=== PATIENT | female | born 1955 | race Caucasian/White ===

== ENCOUNTER → 2018-05-10 10:39 | Outpatient (CLI) | payer MEDICAID, SELFPAY ==
--- NOTE | 2018-05-10 17:52 | LEAS_ITS ---
Arterial Study - Arterial Study Arterial Study: Bilateral lower extremity noninvasive arterial exam at rest Patient complaint of bilateral lower extremity pain with ambulation Right lower extremity The right low thigh index is abnormal at 0.63. The calf index is 0.6. The right PT and DP ankle-brachial indices at rest are 0.51 and 0.67 respectively. The right posterior tibial and dorsalis pedis Doppler waveforms are biphasic. Volume pulse recordings demonstrate abnormal waveforms throughout the low thigh calf ankle and particularly flattened at the digital level Left lower extremity The left low thigh index is 0.52. The left calf index is 0.44. The left PT and DP ankle-brachial index at rest are 0.46 and 0.35. Doppler waveforms are monophasic in the left posterior tibial and dorsalis pedis. The volume pulse recordings demonstrate abnormally low waveforms throughout the low thigh calf ankle and the particularly flattened at the digital level Impression Abnormal bilateral lower extremity noninvasive arterial exam. Findings suggest iliofemoral inflow disease bilaterally. Findings are well within the range of vascular claudication bilaterally. Flattened digital volume pulse recordings bilaterally suggest multi segmental and or distal small vessel disease of a high -grade level. Kevin Michelle M.D., F.A.C.S.
== END ==
PROVIDERS: Family Provider Nurse Practitioner Family; PCP Nurse Practitioner Family; Visit Provider Podiatrist
DX: I73.9 Peripheral vascular disease, unspecified (principal); M79.604 Pain in right leg; M79.605 Pain in left leg

== ENCOUNTER → 2018-06-28 09:18 | Outpatient (CLI) | payer MEDICAID, SELFPAY ==
[2018-06-28 10:15] LABS: Hematocrit 42.2 % (37-47); Hemoglobin 13.4 g/dl (12.0-15.0); Mean Corp Hgb Conc 31.8 g/gl (32-36); Mean Corpuscular Hgb 27.6 pg (27.0-32.0); Platelet Count 387 K/mm3 (150-450); RBC Distribution Width CV 14.8 % (11.6-14.6); RBC Distribution Width SD 47.4 fl (35.1-43.9); Red Blood Count 4.85 M/mm3 (4.2-5.4); White Blood Count 7.7 K/mm3 (4.4-11.0)
[2018-06-28 10:17] LABS: Scan Indicated on CBC? Y/N NO
[2018-06-28 10:55] LABS: ALB/GLOB Ratio 0.9 RATIO (0.9-2.4); AST(SGOT) 15 U/L (15-37); Alanine Aminotransfer ALT/SGPT 25 U/L (13-56); Albumin, Serum 3.6 g/dL (3.2-5.0); Alkaline Phosphatase 184 U/L (45-117); Anion Gap 12 (5-15); BUN 20 mg/dL (7-18); BUN/Creat Ratio 30.7 RATIO (10-20); Calcium,Total 8.8 mg/dL (8.5-10.1); Chloride 105 mmol/L (98-107); Cholesterol 272 mg/dL (200); Creatinine, Serum 0.65 mg/dL (0.55-1.02); EST Glomerular Filtration Rate 98 mL/min (>60); Est Glom Filt Rate - Afr Amer 119 mL/min (>60); Globulin 3.9 g/dL (2.2-4.2); Glucose 94 mg/dL (74-106); High Density Lipoprotein 45 mg/dL; Protein, Total 7.5 g/dL (6.4-8.2); Sodium Level 142 mmol/L (136-145); Triglycerides 119 mg/dL; Very Low Density Lipoprotein 24 mg/dL (5-40)
== END ==
PROVIDERS: Family Provider Nurse Practitioner Family; PCP Nurse Practitioner Family; Visit Provider Surgery
DX: Z01.818 Encounter for other preprocedural examination (principal); I73.9 Peripheral vascular disease, unspecified
CPT/HCPCS: 36415; 80053; 80061; 85027

== ENCOUNTER → 2018-07-05 12:42 | Outpatient (CLI) | payer MEDICAID, SELFPAY | PROVIDERS: Family Provider Nurse Practitioner Family; PCP Nurse Practitioner Family; Visit Provider Surgery | DX: R09.89 Other specified symptoms and signs involving the circulatory and respiratory systems (principal) | CPT/HCPCS: 93880 ==

== ENCOUNTER → 2018-07-21 14:39 | Outpatient (CLI) | payer MEDICAID, SELFPAY | PROVIDERS: Family Provider Nurse Practitioner Family; PCP Nurse Practitioner Family; Visit Provider Surgery | DX: I73.9 Peripheral vascular disease, unspecified (principal) | CPT/HCPCS: 75635; Q9967 ==

== ENCOUNTER 2018-08-31 12:06 | Observation (INO) | payer MEDICAID, SELFPAY ==
[2018-08-30 10:04] VITALS: BMI 28.3
[2018-08-30 10:23] LABS: Hematocrit 41.5 % (37-47); Hemoglobin 13.1 g/dl (12.0-15.0); Mean Corp Hgb Conc 31.6 g/gl (32-36); Mean Corpuscular Hgb 27.5 pg (27.0-32.0); Mean Corpuscular Volume 87.2 fL (81-99); Platelet Count 359 K/mm3 (150-450); RBC Distribution Width CV 14.1 % (11.6-14.6); RBC Distribution Width SD 45.2 fl (35.1-43.9); Red Blood Count 4.76 M/mm3 (4.2-5.4); White Blood Count 9.8 K/mm3 (4.4-11.0)
[2018-08-30 10:24] LABS: Scan Indicated on CBC? Y/N NO
[2018-08-30 10:51] LABS: Anion Gap 9 (5-15); BUN 14 mg/dL (7-18); BUN/Creat Ratio 22.6 RATIO (10-20); Calcium,Total 8.9 mg/dL (8.5-10.1); Chloride 105 mmol/L (98-107); Creatinine, Serum 0.62 mg/dL (0.55-1.02); EST Glomerular Filtration Rate 104 mL/min (>60); Est Glom Filt Rate - Afr Amer 126 mL/min (>60); Glucose 91 mg/dL (74-106); Potassium 3.8 mmol/L (3.5-5.1); Sodium Level 140 mmol/L (136-145)
[2018-08-31] VITALS (10 sets, daily range): BP systolic 108–159; BP diastolic 63–87; PULSE 111–131; RESP 16–20; TEMP 36.6–37.8; O2SAT 88–95; BMI 28.3
[2018-08-31] MEDS: Cefazolin 1 GM/50 ML BAG IV (12:00)
--- NOTE | 2018-08-31 12:08 | PCM.OPRPT ---
Problem List (1) Peripheral arterial occlusive disease Status: Acute Report of Operation Date of Procedure: 08/31/18 Pre-Operative Diagnosis: Symptomatic bilateral extremity peripheral vascular occlusive disease with occluded bilateral external iliac arteries Post-Operative Diagnosis: Symptomatic bilateral extremity peripheral vascular occlusive disease with occluded bilateral external iliac arteries with 50% stenosis distal left common iliac Surgery/Procedure Performed:: Abdominal pelvic arteriogram via left brachial approach. Attempted revascularization left external iliac via the left brachial approach. Successful left external iliac revascularization via retrograde left common femoral artery approach with 6 x 80 mm ever cross angioplasty and 7 x 150 mm ever flex stenting Description of Surgical Findings:: 63-year-old female was taken to the special procedures lab. She was placed upon the table. The left arm was placed on an armboard bilateral groins and left arm were sterilely prepped and draped. Timeout and informed consent was obtained. Patient received 50 mcg of fentanyl and 2 mg Versed is intravenous station. Under ultrasound guidance the left brachial artery is identified 2% lidocaine was instilled micropuncture needle inserted micropuncture wire inserted micropuncture sheath inserted 035 J-wire was inserted 5 Martiniquais short sheath was inserted. Then using a 4 Martiniquais IM catheter and a angled floppy Glidewire access was gained to the thoracic aorta and then was advanced down to the abdominal aorta. Over the Glidewire a 5 Martiniquais pigtail catheter was placed. Using Isovue contrast the rate of 15 cc a second 15 cc a aortic pelvic arteriogram was obtained. This demonstrated occlusion of bilateral external iliacs with 50% stenosis of the distal left common iliac. There was a flush occlusion on the right of the external iliac. There was a small stab on the left. I elected to attempt to address the left groin. At this point the patient received 7000 ends of heparin IV and then based upon ACT measurements throughout the case she received a total of 11,000 units of heparin. I placed a 035 Magic wire. I exchanged out the short sheath for a 70 cm 7 Martiniquais Javier sheath. Then placed a 018 quick cross catheter and an 1 8 connect wire. Try to gain access to the area of complete occlusion. I was able to advance the connect wire to a degree but could not reestablish flow at the distal left external iliac. Hand-injection views done through the sheath suggested that she had a relatively long left common femoral artery. As I was not being successful antegrade I elected to attempt a retrograde approach. Ultrasound was used to identify the left superficial femoral common femoral artery 2% lidocaine was instilled micropuncture needle was inserted retrograde with flow micropuncture wire micropuncture sheath and 035 J-wire was used to place a 7 Martiniquais sheath. Hand-injection demonstrated true lumen. I then used a 0335 quick cross catheter and an 035 stiff Glidewire was able to gain access through the completely occluded left external iliac into the true lumen of the aorta. Hand-injection views demonstrated true lumen. I then withdrew the 018 quick cross catheter from above. I placed a 035 Magic wire from the left common femoral and I performed balloon angioplasty of the left external iliac for its entire duration and the mid and distal portion of the left common iliac with a 6 x 80 mm ever cross balloon. Upon completion there was evidence of dissection in the mid section which extended down distally and the external iliac. I elected to cover the entire area with a 7 x 150 mm ever flex stent as the 100 mm stent would not cover the disease involving the left distal common iliac. That stent was carefully positioned so as to cover the reentry site at the left common femoral artery. The stent was deployed then it was seated in place with the 6 x 80 mm ever cross balloon. Final pigtail injection from the aorta demonstrated now wide open patency of the distal left common iliac and left external iliac with good flow into the left common femoral. At this point to the contrast and amount of time ensued I elected to hold the procedure at this setting. I anticipate observing her results with the left lower extremity. The patient has a flush occlusion of the right external iliac. If she performs well on the left that I would anticipate returning to the procedure room with a planned retrograde approach from the right common femoral in an attempt to recanalize her right external iliac. If that is not successful then I could consider a future femoral femoral crossover from left to right. The left groin sheath was removed over Magic wire and a Perclose device was inserted and deployed with good results and immediate hemostasis. The patient has a very nicely palpable 3+ left PT pulse and a weaker left anterior tibial pulse. Images demonstrate a patent abdominal aorta patent bilateral common iliacs the right common iliac appears to be adequate and then there is a complete flush occlusion of the right external iliac there is refill of the right common femoral just at the inguinal ligament there is collateralized flow view of the right internal iliac. The left internal iliac similarly provides collateral flow. The small stab of patency of the left external iliac. The left common femoral refills just at the inguinal ligament. Subsequent to the angioplasty and stenting of the left external iliac and distal common iliac there is now reconstitution of direct in-line flow. Contrast utilized was 60 cc. She tired procedure well was taken to the recovery area in satisfactory condition without apparent complication. Good hemostasis was achieved with a Perclose device in the left groin. ACT monitoring was performed. The left brachial sheath will be removed in the recovery area. Kevin Michelle M.D., F.A.C.S. Type of Anesthesia:: IV Sedation, Local
[2018-08-31 13:16] LABS: ACT Activated Clotting Time 180 sec (74-137)
[2018-08-31 14:40] LABS: ACT Activated Clotting Time 219 sec (74-137)
[2018-08-31 14:40] LABS: ACT Activated Clotting Time 224 sec (74-137)
[2018-08-31 14:40] LABS: ACT Activated Clotting Time 208 sec (74-137)
[2018-08-31] MEDS: Clopidogrel Bisulfate 75 MG Tablet PO (15:10)
[2018-08-31] MEDS: Ondansetron 4 MG/2 ML Vial IV (16:34)
--- NOTE | 2018-08-31 17:32 | NURSING ---
pt sleeping upon entering room for site checks and vitals. spo2 on ra when sleeping 88% and hr up to 122. o2 applied at 2l and immediately pt went up to 100%. cont pox applied per protocol +stop.
--- NOTE | 2018-08-31 18:03 | PCM.PN.BLA ---
Progress Note Pt without complaint Supple left antecubital space with 2+ left radial Supple left groin with 3+ left PT Good progress.Will remove sandbag left groin
--- NOTE | 2018-08-31 19:27 | EKG12_ITS ---
Test Reason : PREPROCEDURE Blood Pressure : / mmHG Vent. Rate : 116 BPM Atrial Rate : 116 BPM P-R Int : 134 ms QRS Dur : 080 ms QT Int : 336 ms P-R-T Axes : 078 052 072 degrees QTc Int : 467 ms Sinus tachycardia Otherwise normal ECG No previous ECGs available Confirmed by BATSHEVA SALEH, JOSE J ([id number]), society editor ANNETTA FLOYD ([id number] on 09/06/2018 11:08:43 AM Referred By: Kevin Michelle Confirmed By:JOSE J HERMAN MD
--- NOTE | 2018-08-31 20:23 | NURSING ---
bed rest for patient was up at 1999. ambulated in hallways x1 half lap. came back to room. both dsg sites c/d/i with no bleeding noted. vss. HR still tachy in the 130s. no pain. pulses strong. will continue to monitor. left armboard still in place.
[2018-08-31] MEDS: Acetaminophen 325 MG Tablet PO (22:30)
[2018-09-01] VITALS (12 sets, daily range): BP systolic 135–155; BP diastolic 70–91; PULSE 102–120; RESP 18–20; TEMP 36.7–37.6; O2SAT 87–94
--- NOTE | 2018-09-01 06:07 | PCM.PN.SRG ---
Subjective: Pt without complaint Notes warmer, less painful left leg with ambulation - Physical Exam Extremities: - - Left antecubital, soft, NT, echymosis, 2+ left radial Left groin supple, NT, ecchymosis, 3+ left PT Vital Signs Temp Pulse Resp BP Pulse Ox 99.4 F H 107 H 18 135/91 H 93 09/01/18 04:25 09/01/18 04:25 09/01/18 04:25 09/01/18 04:25 09/01/18 04:25 Oxygen Flow Rate (L/min) 2 Oxygen Delivery Method Nasal Cannula Weight: 140 lb 2 oz Body Mass Index (BMI) 28.3 Intake and Output for Last 24 Hours 08/30/18 08/31/18 09/01/18 23:59 23:59 23:59 Intake Total 1278 / 1278 Output Total 525 / 525 Balance 753 / 753 Laboratory Tests Past 24 Hrs 08/31/18 08/31/18 08/31/18 10:22 11:16 12:00 Activated Clotting Time 208 H 219 H 224 H 08/31/18 13:06 Activated Clotting Time 180 H Medical Necessity - Tobacco Use Smoking Status: Current every day smoker Tobacco Use: Cigarettes Assessment/Plan All Active Problems (Last Reviewed 08/06/18 @ 14:46 by Theresa Erazo) Tobacco abuse (Acute) Peripheral arterial occlusive disease (Acute) Good results Plan home if can be weened from oxygen
[2018-09-01] MEDS: Furosemide 20 MG/2 ML VIAL IV (06:58)
--- NOTE | 2018-09-01 08:16 | NURSING ---
This RN entered room and pt was on 2L N/C. Removed O2 and ambulated in hallway on RA. SpO2 ranged from 90-95% while on RA. Pt back to bed and left on Room Air with continuous pulse ox in place. Will continue to monitor for d/c.
[2018-09-01] MEDS: Aspirin 81 MG TAB.CHEW PO (09:49)
[2018-09-01] MEDS: Clopidogrel Bisulfate 75 MG Tablet PO (09:49)
--- NOTE | 2018-09-01 10:51 | PCM.PN.BLA ---
Progress Note Patient update. She denies shortness of breath at rest and with ambulation however pulse ox is 87 at rest sitting and laying down. Her O2 sat with ambulation is low 90's to high 80's. Patient does qualify for home oxygen. Case management will set up home oxygen. Patient will need to follow-up with her PCP in 1 week to have home oxygen discontinued. Paperwork will be filled out and faxed over to the floor once received. Diagnosis for home O2 is deoxygenation post-procedure. Dyspnea. Code Visit Inpatient E&M: 28053 Subs Hosp L1 - POST-OP CHARGE
--- NOTE | 2018-09-01 10:55 | PN_ITS ---
Progress Note Patient update. She denies shortness of breath at rest and with ambulation however pulse ox is 87 at rest sitting and laying down. Her O2 sat with ambulation is low 90's to high 80's. Patient does qualify for home oxygen. Case management will set up home oxygen. Patient will need to follow-up with her PCP in 1 week to have home oxygen discontinued. Paperwork will be filled out and faxed over to the floor once received. Diagnosis for home O2 is deoxygenation post-procedure. Dyspnea. Code Visit Inpatient E&M: 65236 Subs Hosp L1 - POST-OP CHARGE
--- NOTE | 2018-09-01 11:16 | PCM.DC.GS ---
Discharge Diet: No Restrictions Discharge Activity: May Not Drive - 5 days, May Not Shower - 2 days Lifting Restrictions: 10 pounds Call your doctor if your incision/area has: Continuous Slow Oozing, Sudden Increased Bleeding, Increased Pain/ Swelling, Increased Redness, Foul Smelling Discharge, Swelling at the incision site Suture Line Care: Avoid Pulling/Pushing, Avoid Pinching/Bending Allergies/Adverse Reactions: Allergies No Known Allergies Allergy (Verified 08/06/18 14:47) Medications to take at Discharge acetaminophen ER 650 mg tablet,extended release 650 mg PO Q6H PRN PRN 06/25/18 Aspirin [Aspirin, Baby] 81 mg PO DAILY@0800 08/30/18 Clopidogrel Bisulfate [Plavix] 75 mg PO DAILY 90 Days #90 tablet 08/31/18 The following prescriptions were given: Clopidogrel Bisulfate [Plavix] 75 mg PO DAILY 90 Days #90 tablet Primary Care Physician: Vincent Ashley, [employer] [Primary Care Provider] - Please follow up with your Primary Care Physician in: 1 week Test Results: Test results from this visit will be discussed in further detail at your follow-up appointment, if applicable. Please Follow Up With: Kevin Michelle MD - [phone] Proposed Discharge Date: 09/01/18
--- NOTE | 2018-09-01 12:00 | CASEMGMT ---
Pt qualified for home oxygen at this time per Madison GÓMEZ. This RN CM to room to speak with pt and pt states no preference for DME at this time. Explanation of home oxygen done and pt agrees to have home oxygen at this time. Pt states no hx home oxygen. 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 Madison GÓMEZ updated at this time, voices understanding. Talisha GÓMEZ CM
== END 2018-09-01 11:50 | disposition home or self-care (01) ==
LOC: PCU 16:32
PROVIDERS: Admitting Provider Surgery; Family Provider Nurse Practitioner Family; PCP Nurse Practitioner Family; Referring Provider Surgery; Visit Provider Surgery
DX: I77.9 Disorder of arteries and arterioles, unspecified (principal); M19.90 Unspecified osteoarthritis, unspecified site; Z85.41 Personal history of malignant neoplasm of cervix uteri; R06.00 Dyspnea, unspecified; F17.210 Nicotine dependence, cigarettes, uncomplicated
CPT/HCPCS: 36200; 36245; 36415; 37221; 37223; 75625; 75710; 76937; 80048; 85027; 85347; 93005; 96361; 96374; 96375; 99152; 99153; 99218; J7030; J7040; Q9967; A4216; C1725; C1760; C1769; C1876; C1887; C1894; G0378; G0379; J1940; J2405

== ENCOUNTER 2018-10-05 07:17 | Day surgery (SDC) | payer MEDICAID, SELFPAY ==
[2018-10-04 14:18] VITALS: BMI 28.3
[2018-10-05 08:14] LABS: Hematocrit 41.2 % (37-47); Hemoglobin 12.7 g/dl (12.0-15.0); Mean Corp Hgb Conc 30.8 g/gl (32-36); Mean Corpuscular Hgb 27.4 pg (27.0-32.0); Mean Corpuscular Volume 88.8 fL (81-99); Mean Platelet Vol. 9.6 fl (6.2-12.0); Platelet Count 306 K/mm3 (150-450); RBC Distribution Width CV 14.8 % (11.6-14.6); RBC Distribution Width SD 47.9 fl (35.1-43.9); Red Blood Count 4.64 M/mm3 (4.2-5.4); Scan Indicated on CBC? Y/N NO; White Blood Count 7.7 K/mm3 (4.4-11.0)
[2018-10-05 08:18] LABS: Anion Gap 4 (5-15); BUN 16 mg/dL (7-18); BUN/Creat Ratio 23.3 RATIO (10-20); Calcium,Total 8.5 mg/dL (8.5-10.1); Chloride 108 mmol/L (98-107); Creatinine, Serum 0.69 mg/dL (0.55-1.02); EST Glomerular Filtration Rate 93 mL/min (>60); Est Glom Filt Rate - Afr Amer 112 mL/min (>60); Estimated Creatinine Clearance 85.83 ml/min; Glucose 103 mg/dL (74-106); Potassium 3.9 mmol/L (3.5-5.1); Sodium Level 140 mmol/L (136-145)
--- NOTE | 2018-10-05 10:56 | PCM.OPRPT ---
Problem List (1) Peripheral arterial occlusive disease Status: Acute Report of Operation Date of Procedure: 10/05/18 Pre-Operative Diagnosis: Symptomatic right lower extremity peripheral arterial occlusive disease with occlusion of the external iliac artery Post-Operative Diagnosis: Same Surgery/Procedure Performed:: Abdominal pelvic arteriogram with right external iliac common iliac 6 x 80 mm ever cross angioplasty and 7 x 150 mm ever flex stenting Description of Surgical Findings:: Timeout and informed consent was obtained. 63-year-old female was taken to the special procedures lab and placed on the table. She had 50 mcg of fentanyl and 2 mg of Versed as intravenous sedation. The right groin was sterilely prepped draped. Ultrasound was used to identify the right common femoral artery. Under ultrasound guidance 2% lidocaine was instilled as a local anesthetic. A total of 10 cc was used. Local was instilled. I then under ultrasound guidance a micropuncture needle was inserted in the right common femoral artery followed by salvage wire advancement. Micropuncture sheath was advanced. Then using the 035 angled Glidewire was able to gain access to the right external iliac advanced the micropuncture sheath. I was unable to exchange out for a 6 Georgian sheath. Using the 035 Glidewire was able to gain access through the occluded right external iliac artery and was able to get true lumen back into the right common iliac artery. A 4 Georgian IM catheter was used to facilitate reentry into the true lumen. I then used a 4 Georgian IM catheter to obtain a aortogram. This demonstrated patency of the previously stented left common iliac and external iliac. I then replaced the 035 angled Glidewire. The patient was given 7000 units of heparin. We up sheath to a 7 Georgian sheath. Balloon angioplasty with a 6 x 80 mm balloon was performed with a completely occluded right external iliac extending into the distal right common iliac. Images demonstrated 3 areas of limited dissection. I then placed a 7 x 150 mm ever flex stent. After several positioning films the stent was deployed and then seated in place with a 6 x 80 mm ever cross balloon. A 4 Georgian IM catheter was placed back into the abdominal aorta and a final aortogram was obtained. This demonstrated patency. The IM catheter was removed. 035 Glidewire was reinserted the 6 Georgian sheath was removed and a Perclose device was advanced on the right. Perclose device was seated and positioned and then activated. The tails were secured the wire was removed the device was removed and the suture was secured. Good hemostasis was rapidly achieved. Patient had palpable bilateral femoral pulses at the completion without apparent complication and blood loss was minimal Images demonstrate evidence of a previously placed left common iliac and external iliac 7 x 150 [place] ever flex stent which is widely patent. There is evidence of patency of the left common femoral profundofemoral and origin of the superficial femoral. On the right the external iliac had been previously occluded. Subsequent to the angioplasty and stenting there is now recanalized flow involving the entire right distal common iliac and external iliac with again patency of the right common femoral origin of the profunda femoral and superficial femoral. It is of additional note that there is flow seen within bilateral internal iliacs at the completion of the procedure. Impression Successfully treated complete occlusion of the right external iliac with angioplasty and stenting. Kevin Michelle M.D., F.A.C.S. Type of Anesthesia:: IV Sedation, Local
[2018-10-05 11:00] LABS: ACT Activated Clotting Time 224 sec (74-137)
== END 2018-10-05 15:27 | disposition home or self-care (01) ==
PROVIDERS: Family Provider Nurse Practitioner Family; PCP Nurse Practitioner Family; Referring Provider Surgery; Visit Provider Surgery
DX: I73.9 Peripheral vascular disease, unspecified (principal); I74.5 Embolism and thrombosis of iliac artery; M19.90 Unspecified osteoarthritis, unspecified site; Z79.02 Long term (current) use of antithrombotics/antiplatelets; Z79.82 Long term (current) use of aspirin; Z79.899 Other long term (current) drug therapy; F17.200 Nicotine dependence, unspecified, uncomplicated
CPT/HCPCS: 36200; 36245; 36415; 37221; 75625; 75710; 76937; 80048; 85027; 85347; 99152; 99153; J7030; J7040; Q9967; C1725; C1760; C1769; C1876

== ENCOUNTER → 2018-10-28 12:38 | Outpatient (CLI) | payer MEDICAID, SELFPAY ==
[2018-10-05 13:37] VITALS: BMI 28.3
--- NOTE | 2018-10-28 12:40 | ART_ITS ---
Reason For Study: PVD -Post stent placement Left Segmental Pressures Left brachial= 155mmHg. Left posterior tibial artery = 162mmHg. Left dorsalis pedis artery = 160mmHg. The left dorsalis pedis waveforms are triphasic. The left posterior tibial artery waveforms are triphasic. Right Segmental Pressures Right brachial= 161mmHg. Right posterior tibial artery = 160mmHg. Right dorsalis pedis artery = 181mmHg. The right dorsalis pedis waveforms are triphasic. The right posterior tibial artery waveforms are triphasic. Indices The right ankle brachial index by the dorsalis pedis is 1.1. The right ankle brachial index by the posterior tibial artery is .99. The left ankle brachial index by the dorsalis pedis is .99. The left ankle brachial index by the posterior tibial artery is 1.0. Interpretation Summary Normal bilateral lower extremity resting ALEIDA's and waveforms. Ordering Physician: Kevin Michelle Referring Physician: Kevin Michelle Performed By: Jessie Chaudhari [facility]
--- OUTSIDE RECORDS SUMMARY | 2018-12-14 07:54 | XMS RPT_ITS ---
:1955 Author Organization OHIP Support Name Relationship Address Phone FRIBLEY, SUNG Unavailable [address] + [place] [address] UE Unavailable Unavailable Unavailable FRIBLEY, SUNG Unavailable [address] + [place] [address] UE Unavailable Unavailable Unavailable FRIBLEY, SUNG Unavailable [address] + [place] [address] UE Unavailable Unavailable Unavailable FRIBLEY, SUNG Unavailable [address] + [place] [address] UE Unavailable Unavailable Unavailable FRIBLEY, SUNG Unavailable [address] + [place] [address] UE Unavailable Unavailable Unavailable FRIBLEY, SUNG Unavailable [address] + [place] [address] UE Unavailable Unavailable Unavailable FRIBLEY, SUNG Unavailable [address] + [place] [address] UE Unavailable Unavailable Unavailable FRIBLEY, SUNG Unavailable [address] + [place] [address] UE Unavailable Unavailable Unavailable FRIBLEY, SUNG Unavailable [address] + [place] [address] UE Unavailable Unavailable Unavailable FRIBLEY, SUNG Unavailable [address] + [place] [address] UE Unavailable Unavailable Unavailable FRIBLEY, SUNG Unavailable [address] + [place] [address] UE Unavailable Unavailable Unavailable FRIBLEY, SUNG Unavailable [address] + [place] [address] UE Unavailable Unavailable Unavailable FRIBLEY, SUNG Unavailable [address] + [place] [address] UE Unavailable Unavailable Unavailable FRIBLEY, SUNG Unavailable [address] + [place] [address] UE Unavailable Unavailable Unavailable FRIBLEY, SUNG Unavailable [address] + [place] [address] UE Unavailable Unavailable Unavailable FRIBLEY, SUNG Unavailable [address] + [place] [address] UE Unavailable Unavailable Unavailable FRIBLEY, SUNG Unavailable [address] + [place] [address] UE Unavailable Unavailable Unavailable FRIBLEY, SUNG Unavailable [address] + [place] [address] UE Unavailable Unavailable Unavailable Care Team Providers Name Role Phone Miguel Angel Kevin Attending Unavailable Cebul, Kevin Referring Unavailable Fascione, Lucia Attending Unavailable Geno, Lucia Referring Unavailable Vincent Ashley OPERATOR SPECIALIST COMMUNICATIONS-C Primary Care Unavailable Cebul, Kevin Attending Unavailable Cebul, Kevin Attending Unavailable Geno, Lucia Referring Unavailable Vincent Ashley OPERATOR SPECIALIST COMMUNICATIONS-C Primary Care Unavailable Cebul, Kevin Attending Unavailable Cebul, Kevin Referring Unavailable Vincent Ashley OPERATOR SPECIALIST COMMUNICATIONS-C Primary Care Unavailable Cebul, Kevin Attending Unavailable Cebul, Kevin Referring Unavailable Vincent Ashley OPERATOR SPECIALIST COMMUNICATIONS-C Primary Care Unavailable Cebul, Kevin Attending Unavailable Cebul, Kevin Referring Unavailable Vincent Ashley OPERATOR SPECIALIST COMMUNICATIONS-C Primary Care Unavailable Cebul, Kevin Attending Unavailable Vincent Ashley OPERATOR SPECIALIST COMMUNICATIONS-C Referring Unavailable Vincent Ashley OPERATOR SPECIALIST COMMUNICATIONS-C Primary Care Unavailable Cebul, Kevin Attending Unavailable Cebul, Kevin Referring Unavailable Cebul, Kevin Attending Unavailable Cebul, Kevin Referring Unavailable Vincent Ashley. OPERATOR SPECIALIST COMMUNICATIONS-C Primary Care Unavailable Cebul, Kevin Admitting Unavailable Cebul, Kevin Admitting Unavailable Saniay Mooney PA-C Attending Unavailable Cebul, Kevin Referring Unavailable Vincent Ashley OPERATOR SPECIALIST COMMUNICATIONS-C Primary Care Unavailable Cebul, Kevin Consulting Unavailable Cebul, Kevin Attending Unavailable Cebul, Kevin Referring Unavailable Cebul, Kevin Attending Unavailable KirstenBaltazar messerril Attending Unavailable Cebul, Kevin Referring Unavailable Cebul, Kevin Attending Unavailable Cebul, Kevin Referring Unavailable Vincetn Ashley OPERATOR SPECIALIST COMMUNICATIONS-C Primary Care Unavailable Cebul, Kevin Attending Unavailable Vincent Ashley OPERATOR SPECIALIST COMMUNICATIONS-C Referring Unavailable Cebul, Kevin Attending Unavailable Cebul, Kevin Referring Unavailable Cebul, Kevin Attending Unavailable Cebul, Kevin Referring Unavailable Vincent Ashley OPERATOR SPECIALIST COMMUNICATIONS-C Primary Care Unavailable PROBLEMS PROBLEMS DATE TYPE CONDITION / CODE ATTENDING STATUS SOURCE 11/30/2018 Unknown I73.9 - Peripheral CebuKevin su Active [facility] vascular disease, Community unspecified / Hospital I73.9(ICD-10) Repository 10/28/2018 Unknown I77.9 - Disorder of CeKevin valenzuela Active [facility] arteries and Community arterioles, Hospital unspecified / Repository I77.9(ICD-10) 10/21/2018 Unknown I74.5 - Embolism and CebuKevin su Active [place] thrombosis of iliac Community artery / I74.5(ICD-10) Hospital Repository 09/21/2018 Unknown R94.31 - Abnormal Kirsten, Wadsworth Active [place] electrocardiogram Community [ECG] [EKG] / Hospital R94.31(ICD-10) Repository 08/09/2018 Unknown R09.89 - Other CebuKevin su Active [facility] specified symptoms and Community signs involving the Hospital circulatory and Repository respiratory systems / R09.89(ICD-10) 06/25/2018 Unknown Z01.818 - Encounter Kevin Michelle Active [place] for other [facility] preprocedural Hospital examination / Repository Z01.818(ICD-10) 05/10/2018 Unknown M79.604 - Pain in Fascione, Active [facility] right leg / [facility] M79.604(ICD-10) Hospital Repository 05/10/2018 Unknown M79.605 - Pain in left Fascione, Active [place] leg / M79.605(ICD-10) [facility] Repository PROCEDURES PROCEDURES No Procedure Records FoundRESULTS RESULTS ARTERIAL Observed: 10/28/2018 Status: F Source: [place] 3:23 PM [facility] RE[facility]IT[facility] [address] [place] [address] Lower Ext Art Exam w/o Exercis 10/28/18 1245 MR#: [id number] Acct: [id number] Name: BRENDA MACEDO Rep #: [id number] : 1955 63 From: Kevin Michelle MD Attending Dr: Kevin Michelle MD Status: REG CLI Ordering Dr: Kevin Michelle MD Date: 10/28/18 Location: [facility] Sex: F C Admitted: Reason For Study: PVD -Post stent placement Left Segmental Pressures Left brachial= 155mmHg. Left posterior tibial artery = 162mmHg. Left dorsalis pedis artery = 160mmHg. The left dorsalis pedis waveforms are triphasic. The left posterior tibial artery waveforms are triphasic. Right Segmental Pressures Right brachial= 161mmHg. Right posterior tibial artery = 160mmHg. Right dorsalis pedis artery = 181mmHg. The right dorsalis pedis waveforms are triphasic. The right posterior tibial artery waveforms are triphasic. Indices The right ankle brachial index by the dorsalis pedis is 1.1. The right ankle brachial index by the posterior tibial artery is .99. The left ankle brachial index by the dorsalis pedis is .99. The left ankle brachial index by the posterior tibial artery is 1.0. Interpretation Summary Normal bilateral lower extremity resting ALEIDA's and waveforms. Ordering Physician: Kevin Michelle Referring Physician: Kevin Michelle Performed By: Jessie Chaudhari T 10/28/18 1523 Date Kevin Michelle MD CC: ANN MARIE Ashley; Kevin Michelle MD Date Dictated: 10/28/18 1245 Date Transcribed: 10/28/18 1523 Wind Energy Technician: Signed SURGERY VISIT REPORT Observed: 10/15/2018 Status: F Source: [place] 8:45 AM [facility] [address] [place] [address] OFFICE VISIT Date of Service: 10/15/18 MR#: [id number] Acct: [id number] Name: BRENDA MACEDO Rep #: [id number] : 1955 Provider: Kevin Michelle MD Age/Sex: 63/F Location: [facility] Status: Signed Intake Vital Signs10/05/18 Body Mass Index (BMI) 28.3 Intake Visit Reasons: Iliac Stent Placement 10/05 Chief Complaint: post APLL and stents Aviation Electronic Warfare Operator Required: No Is patient in pain?: No Allergies No Known Allergies Allergy (Verified 10/15/18 08:33) Medications acetaminophen ER 650 mg tablet,extended release 650 mg PO Q6H PRN PRN 06/25/18 [History Confirmed 10/15/18] Aspirin [Aspirin, Baby] 81 mg PO DAILY@0800 08/30/18 [History Confirmed 10/15/18] Clopidogrel Bisulfate [Plavix] 75 mg PO DAILY 90 Days #90 tab 10/05/18 [Rx Confirmed 10/15/18] Is last menstrual period known: No Post menopausal: Yes Patient : No Subjective Details: 63-year-old female. She is status post staged treatment of bilateral external iliac occlusions. Her most recent procedure was October 05, 2018. I performed a abdominal pelvic arteriogram via a right retrograde common femoral artery approach and performed a 6 x 80 mm ever cross angioplasty and subsequently a 7 x 150 mm ever flex stenting of the right external iliac extending into the right common iliac. Previously on September 01, 2018 I performed a similar procedure for her left external iliac and common iliac with same devices. The patient has been a long-term cigarette smoker. She states that she has stopped. She is currently managed on daily aspirin and clopidogrel 75 mg. Her calf claudication is dramatically improved. She has no specific complaints or concerns today. Objective Details: Bilateral common femoral arteries are 3+. Bilateral popliteal arteries 2+. Bilateral DP and PT pulses 2+ Bilateral groins have evidence of puncture sites. Slight amount of induration on the right. Nontender. No erythema. Not expansile. Assessment AND Plan Problems 1. PAOD (peripheral arterial occlusive disease) I77.9 Plan Excellent results status post staged bilateral external iliac/common iliac 7 x 150 mm ever flex stenting. The patient will be returned to work on October 18, 2018. She will remain on the Plavix for 90 days and then subsequent to that can be managed with daily aspirin. She will have PVRs with exercise in the near future with a repeat exam again at 6 months. She will have office follow-up at 6 months. Currently she remains off of her tobacco. She is very pleased with her results. CC: Jaydon Michelle M.D., F.A.C.S. Coding Level of Care Code Off vis,est,level 2 Diagnoses PAOD (peripheral arterial occlusive disease) I77.9 10/15/18 0845 <Electronically signed by Kevin Michelle MD> Date Kevin Michelle MD Cosigner Signature: Date (if applicable) CC: OPERATOR SPECIALIST COMMUNICATIONS-C Vincent Ashley OPERATIVE REPORT Observed: 10/05/2018 Status: F Source: [place] 3:11 PM [facility] REPOSITORY [facility] Medical Records Department [address] [place] [address] Operative Report 10/05/18 1056 MR#: [id number] Acct: [id number] Name: BRENDA MACEDO Rep #: [id number] : 1955 63 From: Kevin Michelle MD PCP: Vincent Ashley, ANN MARIE Status: REG SD Y Location: [facility] Problem List (1) Peripheral arterial occlusive disease Status: Acute Report of Operation Date of Procedure: 10/05/18 Pre-Operative Diagnosis: Symptomatic right lower extremity peripheral arterial occlusive disease with occlusion of the external iliac artery Post-Operative Diagnosis: Same Surgery/Procedure Performed:: Abdominal pelvic arteriogram with right external iliac common iliac 6 x 80 mm ever cross angioplasty and 7 x 150 mm ever flex stenting Description of Surgical Findings:: Timeout and informed consent was obtained. 63-year-old female was taken to the special procedures lab and placed on the table. She had 50 mcg of fentanyl and 2 mg of Versed as intravenous sedation. The right groin was sterilely prepped draped. Ultrasound was used to identify the right common femoral artery. Under ultrasound guidance 2% lidocaine was instilled as a local anesthetic. A total of 10 cc was used. Local was instilled. I then under ultrasound guidance a micropuncture needle was inserted in the right common femoral artery followed by salvage wire advancement. Micropuncture sheath was advanced. Then using the 035 angled Glidewire was able to gain access to the right external iliac advanced the micropuncture sheath. I was unable to exchange out for a 6 Guyanese sheath. Using the 035 Glidewire was able to gain access through the occluded right external iliac artery and was able to get true lumen back into the right common iliac artery. A 4 Guyanese IM catheter was used to facilitate reentry into the true lumen. I then used a 4 Guyanese IM catheter to obtain a aortogram. This demonstrated patency of the previously stented left common iliac and external iliac. I then replaced the 035 angled Glidewire. The patient was given 7000 units of heparin. We up sheath to a 7 Guyanese sheath. Balloon angioplasty with a 6 x 80 mm balloon was performed with a completely occluded right external iliac extending into the distal right common iliac. Images demonstrated 3 areas of limited dissection. I then placed a 7 x 150 mm ever flex stent. After several positioning films the stent was deployed and then seated in place with a 6 x 80 mm ever cross balloon. A 4 Guyanese IM catheter was placed back into the abdominal aorta and a final aortogram was obtained. This demonstrated patency. The IM catheter was removed. 035 Glidewire was reinserted the 6 Guyanese sheath was removed and a Perclose device was advanced on the right. Perclose device was seated and positioned and then activated. The tails were secured the wire was removed the device was removed and the suture was secured. Good hemostasis was rapidly achieved. Patient had palpable bilateral femoral pulses at the completion without apparent complication and blood loss was minimal Images demonstrate evidence of a previously placed left common iliac and external iliac 7 x 150 [place] ever flex stent which is widely patent. There is evidence of patency of the left common femoral profundofemoral and origin of the superficial femoral. On the right the external iliac had been previously occluded. Subsequent to the angioplasty and stenting there is now recanalized flow involving the entire right distal common iliac and external iliac with again patency of the right common femoral origin of the profunda femoral and superficial femoral. It is of additional note that there is flow seen within bilateral internal iliacs at the completion of the procedure. Impression Successfully treated complete occlusion of the right external iliac with angioplasty and stenting. Kevin Michelle M.D., F.A.C.S. Type of Anesthesia:: IV Sedation, Local 10/05/18 1511 <Electronically signed by Kevin Michelle MD> Date Kevin Michelle MD CC: ANN MARIE Ashley; Kevin Michelle MD Signed ACT ACTIVATED CLOTTING Collected: 10/05/2018 Status: F Source: [place] TIME 10:36 AM [facility] REPOSITORY TYPE CODE TESTS RESULT OUT OF RANGE REFERENCE UNITS LAB L9100.0100 74-137 sec High ACTk CLOT 224 TIME Performed By: #### L9100.0100 #### [facility] Point of Care [facility] [place] [address] CBC-COMPLETE BLOOD CNT Collected: 10/05/2018 Status: F Source: [place] NO DIFF 7:53 AM [facility] REPOSITORY TYPE CODE TESTS RESULT OUT OF RANGE REFERENCE UNITS LAB L100.1000 4.4-11.0 K/mm3 Normal WBC 7.7 LAB L100.1200 4.2-5.4 M/mm3 Normal RBC 4.64 LAB L100.1300 12.0-15.0 g/dl Normal HGB 12.7 LAB L100.1400 37-47 % Normal HCT 41.2 LAB L100.1500 81-99 fL Normal MCV 88.8 LAB L100.1600 27.0-32.0 pg Normal MCH 27.4 LAB L100.1700 32-36 g/gl Low MCHC 30.8 LAB L100.1810 11.6-14.6 % High RDW CV 14.8 LAB L100.1820 35.1-43.9 fl High RDW SD 47.9 LAB L100.1900 150-450 K/mm3 Normal PLT 306 LAB L100.2000 6.2-12.0 fl Normal MPV 9.6 Performed By: #### L100.0500 #### [facility] [address] [place], [address] BASIC METABOLIC Collected: 10/05/2018 Status: F Source: [place] PROFILE (BMP) 7:53 AM [facility] REPOSITORY TYPE CODE TESTS RESULT OUT OF RANGE REFERENCE UNITS LAB L501.0100 74-106 mg/dL Normal GLU 103 Result Comment: Fasting Glucose result from 100 to 125 mg/dL suggests IMPAIRED HOMEOSTASIS per A.D.A. criteria. Please note revised GLUCOSE reference range effective 2017. LAB L501.1000 7-18 mg/dL Normal BUN 16 LAB L501.1100 0.55-1.02 mg/dL Normal CREAT,SERUM 0.69 Result Comment: The validity of the calculated GFR AND GFRAA in patients over 70 years has not been determined. Clinical correlation is essential. LAB L501.1110 >60 mL/min Normal EST GFR 93 Result Comment: Non- GFR Calc LAB L501.1115 >60 mL/min Normal EST GFR - AA 112 Result Comment: GFR Calc LAB L501.1255 ml/min Normal Estimated CRCL 85.83 LAB L501.1300 10-20 RATIO High BUN/CRE 23.3 LAB L501.2200 8.5-10 mg/dL Normal .1 CA 8.5 LAB L501.5300 136-14 mmol/L Normal 5 NA 140 LAB L501.5600 3.5-5. mmol/L Normal 1 K 3.9 LAB L501.5900 98-107 mmol/L High CL 108 LAB L501.6100 21.0-3 mmol/L Normal 2.0 CO2 28.0 LAB L501.6200 5-15 Low GAP 4 Performed By: #### L500.2500 #### [facility] [address] [place], [address] SURGERY VISIT REPORT Observed: 09/16/2018 Status: F Source: [place] 9:37 AM [facility] REPOSITORY [facility] [address] [place] [address] OFFICE VISIT Date of Service: 09/16/18 MR#: [id number] Acct: [id number] Name: BRENDA MACEDO Rep #: [id number] : 1955 Provider: Kevin Michelle MD Age/Sex: 63/F Location: [facility] Status: Signed Intake Intake Visit Reasons: F/U Surgery 09/01 Stent placement Chief Complaint: arteriogram with ballooning and stenting Aviation Electronic Warfare Operator Required: No Is patient in pain?: No Allergies No Known Allergies Allergy (Verified 09/16/18 09:04) Medications acetaminophen ER 650 mg tablet,extended release 650 mg PO Q6H PRN PRN 06/25/18 [History Confirmed 09/16/18] Aspirin [Aspirin, Baby] 81 mg PO DAILY@0800 08/30/18 [History Confirmed 09/16/18] Clopidogrel Bisulfate [Plavix] 75 mg PO DAILY 90 Days #90 tab 08/31/18 [Rx Confirmed 09/16/18] PFSH Medical History Tobacco abuse (Acute) Peripheral arterial occlusive disease (Acute) Arthritis (Acute) Cervical cancer (Acute) PVD (peripheral vascular disease) (Acute) Surgical History S/P LEFT ARTERIOGRAM (Acute) Family History Mother Breast cancer Social History Smoking Status: Current every day smoker alcohol intake: never HPI HPI HPI: BRENDA MACEDO, is a 63 F who presents to the office today for surgical follow-up. The patient had left arm access and left groin access to the complete occlusion of her left external iliac artery. I was able to reestablish flow and placed a 7 x 150 mm ever flex stent. The patient is very pleased. She denies any left arm problem. She states that initially she had some swelling of the left foot but that that is improved. The warmth and her ability to move with her left leg is dramatically improved. She still has limitations with her right lower extremity and she has a known complete occlusion of the right external iliac artery with flush occlusion at the internal iliac. e Report [facility] Medical Records Department [address] [place] [address] Operative Report 08/31/18 1208 MR#: [id number]:[id number] Name: BRENDA MACEDO [facility] #:[id number] : [id number]: Kevin Michelle MD PCP:Vincent Ashley, OPERATOR SPECIALIST COMMUNICATIONS-C Status:[facility] Location: [place] [address] Problem List (1) Peripheral arterial occlusive disease Status: Acute Report of Operation Date of Procedure: 08/31/18 Pre-Operative Diagnosis: Symptomatic bilateral extremity peripheral vascular occlusive disease with occluded bilateral external iliac arteries Post-Operative Diagnosis: Symptomatic bilateral extremity peripheral vascular occlusive disease with occluded bilateral external iliac arteries with 50% stenosis distal left common iliac Surgery/Procedure Performed:: Abdominal pelvic arteriogram via left brachial approach. Attempted revascularization left external iliac via the left brachial approach. Successful left external iliac revascularization via retrograde left common femoral artery approach with 6 x 80 mm ever cross angioplasty and 7 x 150 mm ever flex stenting Description of Surgical Findings:: 63-year-old female was taken to the special procedures lab. She was placed upon the table. The left arm was placed on an armboard bilateral groins and left arm were sterilely prepped and draped. Timeout and informed consent was obtained. Patient received 50 mcg of fentanyl and 2 mg Versed is intravenous station. Under ultrasound guidance the left brachial artery is identified 2% lidocaine was instilled micropuncture needle inserted micropuncture wire inserted micropuncture sheath inserted 035 J-wire was inserted 5 Guyan[place] short sheath was inserted. Then using a 4 Guyanese IM catheter and a angled floppy Glidewire access was gained to the thoracic aorta and then was advanced down to the abdominal aorta. Over the Glidewire a 5 [place] pigtail catheter was placed. Using Isovue contrast the rate of 15 cc a second 15 cc a aortic pelvic arteriogram was obtained. This demonstrated occlusion of bilateral external iliacs with 50% stenosis of the distal left common iliac. There was a flush occlusion on the right of the external iliac. There was a small stab on the left. I elected to attempt to address the left groin. At this point the patient received 7000 ends of heparin IV and then based upon ACT measurements throughout the case she received a total of 11,000 units of heparin. I placed a 035 Magic wire. I exchanged out the short sheath for a 70 cm 7 Guyanese Javier sheath. Then placed a 018 quick cross catheter and an 1 8 connect wire. Try to gain access to the area of complete occlusion. I was able to advance the connect wire to a degree but could not reestablish flow at the distal left external iliac. Hand- injection views done through the sheath suggested that she had a relatively long left common femoral artery. As I was not being successful antegrade I elected to attempt a retrograde approach. Ultrasound was used to identify the left superficial femoral common femoral artery 2% lidocaine was instilled micropuncture needle was inserted retrograde with flow micropuncture wire micropuncture sheath and 035 J-wire was used to place a 7 [place]yanese sheath. Hand-injection demonstrated true lumen. I then used a 0335 quick cross catheter and an 035 stiff Glidewire was able to gain access through the completely occluded left external iliac into the true lumen of the aorta. Hand-injection views demonstrated true lumen. I then withdrew the 018 quick cross catheter from above. I placed a 035 Magic wire from the left common femoral and I performed balloon angioplasty of the left external iliac for its entire duration and the mid and distal portion of the left common iliac with a 6 x 80 mm ever cross balloon. Upon completion there was evidence of dissection in the mid section which extended down distally and the external iliac. I elected to cover the entire area with a 7 x 150 mm ever flex stent as the 100 mm stent would not cover the disease involving the left distal common iliac. That stent was carefully positioned so as to cover the reentry site at the left common femoral artery. The stent was deployed then it was seated in place with the 6 x 80 mm ever cross balloon. Final pigtail injection from the aorta demonstrated now wide open patency of the distal left common iliac and left external iliac with good flow into the left common femoral. At this point to the contrast and amount of time ensued I elected to hold the procedure at this setting. I anticipate observing her results with the left lower extremity. The patient has a flush occlusion of the right external iliac. If she performs well on the left that I would anticipate returning to the procedure room with a planned retrograde approach from the right common femoral in an attempt to recanalize her right external iliac. If that is not successful then I could consider a future femoral femoral crossover from left to right. The left groin sheath was removed over Magic wire and a Perclose device was inserted and deployed with good results and immediate hemostasis. The patient has a very nicely palpable 3+ left PT pulse and a weaker left anterior tibial pulse. Images demonstrate a patent abdominal aorta patent bilateral common iliacs the right common iliac appears to be adequate and then there is a complete flush occlusion of the right external iliac there is refill of the right common femoral just at the inguinal ligament there is collateralized flow view of the right internal iliac. The left internal iliac similarly provides collateral flow. The small stab of patency of the left external iliac. The left common femoral refills just at the inguinal ligament. Subsequent to the angioplasty and stenting of the left external iliac and distal common iliac there is now reconstitution of direct in-line flow. Contrast utilized was 60 cc. She tired procedure well was taken to the recovery area in satisfactory condition without apparent complication. Good hemostasis was achieved with a Perclose device in the left groin. ACT monitoring was performed. The left brachial sheath will be removed in the recovery area. Kevin Michelle M.D., F.A.C.S. Type of Anesthesia:: IV Sedation, Local 09/01/18 0611<Electronically signed by Kevin Michelle MD> Date Kevin Michelle MD CC: OPERATOR SPECIALIST COMMUNICATIONS-C Vincent Ashley; Kevin Michelle MD Signed MR#:[id number] Name: BRENDA MACEDO [facility] #:[id number] : 1955 Provider:Kevin Michelle MD Age/Sex: 63/F Location:[facility] Status:Signed Intake Vital Signs 08/06/18 Height 4 ft 11 in 08/06/18 Weight: 140 lb 2 oz 08/06/18 Body Mass Index (BMI) 28.3 08/06/18 Blood Pressure 158/92 08/06/18 Blood Pressure Location Rt brachial 08/06/18 Blood Pressure Position Sitting 08/06/18 Respiratory Rate 20 08/06/18 Pulse Rate 123 08/06/18 Pulse Ox 96 Intake Visit Reasons: CTA and carotid US/ lipids Chief Complaint: CTA and carotid results Aviation Electronic Warfare Operator Required: No Is patient in pain?: No Allergies No Known Allergies Allergy (Verified 08/06/18 14:47) Medications acetaminophen ER 650 mg tablet,extended release 650 mg PO ONCE 06/25/18 [History Confirmed 06/25/18] Is last menstrual period known: No Post menopausal: Yes Patient : No PFSH Medical History Tobacco abuse (Acute) Peripheral arterial occlusive disease (Acute) Arthritis (Acute) Cervical cancer (Acute) PVD (peripheral vascular disease) (Acute) Family History Mother Breast cancer Social History Smoking Status: Current every day smoker alcohol intake: never HPI HPI HPI: BRENDA MACEDO, is a 63 F who presents to the office today for surgical discussion regarding her previous office appointment complaint of bilateral extremity claudication with clinically relevant peripheral vascular occlusive disease. Notation is as below. She had a carotid duplex which does not demonstrate acute disease. She has bilateral external iliac occlusions as noted on her CTA. Carotid Duplex Ultrasound 07/05/18 1249 MR#: [id number] Name: BRENDA MACEDO [facility] #:[id number] : 1955 62From: Kevin Michelle MD Attending Dr: Miguel Angel SALEH,Johnnietatus: REG CLI Ordering Dr: Kevin Michelle MDDate: 07/05/18 Location:CVSSex:FC Admitted: Reason For Study: carotid bruit Rt. Velocities/BP Lt. Velocities/BP Prox CCA 92.0/26.4 cm/sec. Prox CCA 117.0/25.8 cm/sec. Mid CCA 90.9/24.6 cm/sec. Mid CCA 101.0/32.2 cm/sec. Dist CCA 86.2/28.1 cm/sec. Dist CCA 106.0/35.2 cm/sec. Prox ICA 60.4/22.9 cm/sec. Prox ICA 71.5/22.9 cm/sec. Mid ICA 93.8/32.8 cm/sec. Mid ICA 97.9/42.2 cm/sec. Dist ICA 163.0/38.5 cm/sec. Dist ICA 101.0/48.1 cm/sec. Rt. ICA/CCA = 1.8. Lt. ICA/CCA = 101.0/101.0=1.0. Prox ECA 87.9/22.9 cm/sec. Prox ECA 87.4/24.6 cm/sec. Rt. Vert. 55.4/15.7 cm/sec. Lt. Vert. 62.7/21.7 cm/sec. Right Extracranial There is intimal thickening but no significant atherosclerotic plaque noted in the right common carotid artery. There is homogeneous, smooth atherosclerotic plaque noted in the right internal carotid artery. The tortuous nature of the right internal carotid artery may result in flow velocities overestimating the degree of stenosis. There is intimal thickening but no significant atherosclerotic plaque noted in the right external carotid artery. Antegrade flow is noted in the right vertebral artery. Left Extracranial There is intimal thickening but no significant atherosclerotic plaque noted in the left common carotid artery. There is homogeneous, smooth atherosclerotic plaque noted in the left internal carotid artery. There is no significant atherosclerotic plaque noted in the left external carotid artery. Antegrade flow is noted in the left vertebral artery. Procedure Carotid Duplex 73954. The exam was diagnostic. Exam performed in department. Interpretation Summary No hemodynamically significant plague or stenosis bilateal extracranial internal carotids wit <50% stenosis bilaterally. Suspect isolated increased velocity in the distal right internal carotid is secondary to tortuosity Normal flow bilateral external carotids Patent and antegrade vertebrals bilaterally Ordering Physician: Kevin Michelle Referring Physician: Vincent Ashley Performed By: Danielle Oliveira, CHANDA, RVT 07/06/18 0547 Date Kevin Michelle MD [facility] Imaging Services [address] [place] [address] CTA Abd w/Runoff W/WO Contrast MR#: [id number] Name: BRENDA MACEDO [facility] #:[id number] : 1955F 62 From: John Pathak MD PCP:Vincent Ashley, OPERATOR SPECIALIST COMMUNICATIONS-C Status:REG CLI Study:CTA Abd w/Runoff W/WO Contrast Date of Exam:07/21/18 Exam#[id number] Ordering Dr: Kevin Michelle MD STUDY: CTA OF THE ABDOMINAL AORTA AND BILATERAL LOWER EXTREMITIES REASON FOR EXAM: Female, 62 years old. Bilateral lower extremity pain and claudication RADIATION DOSAGE (If Supplied By Facility): CTDIvol = ( 6.42 ) mGy, DLP = ( 970.57 ) mGycm TECHNIQUE: Axial CT angiography multi-detector data acquisition was obtained from the to the following intravenous administration of 100mL ml of Isovue 370 contrast. Axial images and MIP images were reconstructed from the axial data set. Post-processing of the angiographic images was performed, with multiplanar reformation and 3D reconstruction. Individualized dose optimization techniques were used for this CT. TECHNICAL QUALITY: Good COMPARISON: None. Descriptors of Narrowing: None (0%) Mild (< 50%) Moderate (50-70%) Severe (70-90%) Subtotal/Total Occlusion (90-100%) Non-Evaluable (technically non-diagnostic FINDINGS: Abdominal aorta: No demonstrated narrowing. Celiac and superior mesenteric arteries: No demonstrated narrowing. Inferior mesenteric artery: No demonstrated narrowing. Right renal artery(arteries): No demonstrated narrowing. Left renal artery(arteries): No demonstrated narrowing. Right common iliac artery: Mild atherosclerotic calcification without focal stenosis. Right external iliac artery: Long segment occlusion from origin to the level of the inguinal ligament where there is reconstituted flow via the inferior epigastric artery. Right internal iliac artery: No demonstrated narrowing. Left common iliac artery: No demonstrated narrowing. Left external iliac artery: Long segment occlusion from its origin to the inguinal ligament where there is reconstitution via inferior epigastric artery. Left internal iliac artery: No demonstrated narrowing. RIGHT LOWER EXTREMITY Right common femoral artery: No demonstrated narrowing. Right profundus femoris: No demonstrated narrowing. Right superficial femoral: No demonstrated narrowing. Right popliteal artery: No demonstrated narrowing. Right tibioperoneal trunk: No demonstrated narrowing. Right anterior tibial artery: Diminutive flow distally with reconstitution of dorsalis pedis artery via peroneal collaterals Right posterior tibial artery: No demonstrated narrowing. Right peroneal artery: No demonstrated narrowing. LEFT LOWER EXTREMITY Left common femoral artery: No demonstrated narrowing. Left profundus femoris: No demonstrated narrowing. Left superficial femoral: No demonstrated narrowing. Left popliteal artery: No demonstrated narrowing. Left tibioperoneal trunk: No demonstrated narrowing. Left anterior tibial artery: No demonstrated narrowing. Left posterior tibial artery: No demonstrated narrowing. Left peroneal artery: No demonstrated narrowing. CT/CTA Abd w/Runoff W/WO Contrast IMPRESSION: 1. Long segment occlusion of bilateral external iliac arteries from their origins to the inguinal ligaments where there is reconstitution of flow via bilateral inferior epigastric arteries. 2. Diminutive flow in the distal third of the right anterior tibial artery with reconstitution of the dorsalis pedis artery via peroneal collaterals. Electronically Signed: John Pathak MD at 4:33 EDT Tel , Service support , CC: ANN MARIE Ashley; Kevin Michelle MD Wind Energy Technician: Signed MR#:[id number] Name: MACEDOBRENDA [facility] #:[id number] : 1955 Provider:Kevin Michelle MD Age/Sex: 62/F [facility] Status:Signed Intake Vital Signs 06/25/18 Height 4 ft 11 in 06/25/18 Weight: 140 lb 06/25/18 Body Mass Index (BMI) 28.3 06/25/18 Blood Pressure 165/104 06/25/18 Blood Pressure Location Lt brachial 06/25/18 Blood Pressure Position Sitting 06/25/18 Respiratory Rate 22 06/25/18 Pulse Rate 124 06/25/18 Pulse Ox 97 06/25/18 Oxygen Delivery Method room air Intake Visit Reasons: PVD Arterial Study [facility] 05/10 Aviation Electronic Warfare Operator Required: No Is patient in pain?: Yes (bilateral legs) Allergies No Known Allergies Allergy (Verified 01/22/15 22:18) Medications acetaminophen ER 650 mg tablet,extended release 650 mg PO ONCE 06/25/18 [History Confirmed 06/25/18] PFSH Medical History Tobacco abuse (Acute) Peripheral arterial occlusive disease (Acute) Arthritis (Acute) Cervical cancer (Acute) PVD (peripheral vascular disease) (Acute) Family History Mother Breast cancer Social History Smoking Status: Current every day smoker alcohol intake: never HPI HPI HPI: BRENDA MACEDO, is a 62 F who presents to the office today for surgical consultation regarding peripheral vascular occlusive disease. The patient is referred by Dr. Lora written copy of my surgical consult recommendations will be returned to her. The patient complains of inability to walk half a block. She cannot climb stairs. She fortunately has not had any open ulcerations. This is been steadily progressive over several months. She has not had any open ulcerations that she is noted. She denies myocardial infarction or CVA or diabetes. She claims she has not had any vascular intervention. She is a long-term cigarette smoker at 2 packs per day. She is not aware of what her baseline lipid panel is. On May 10, 2018 she had bilateral extremity noninvasive arterial exam at rest. The right low thigh index is 0.63 with a right PT and DP index of 0.51-0.67 and biphasic right posterior tibial and dorsalis pedis waveforms. The left low thigh index is 0.52 with a left PT and DP ankle-brachial index of 0.460.35 with monophasic left DP and PT Doppler waveforms. The patient's previous history includes that of cervical cancer. After examining her it was noted that she has a very early superficial left lateral malleolus skin injury. She states this is secondary to new shoes ROS General General: No weight change, appetite, fatigue, colon cancer, breast cancer or weakness HEENT HEENT: No difficulty swallowing, eye injury, eye surgery, swollen glands or hoarseness Endo Endocrine: No thyroid disease, diabetes mellitus, thyroid cancer, Hair loss, heat intolerance or cold intolerance Skin Skin: No rash or changing moles Breast Breast: No left breast lump, right breast lump, nipple discharge, breast pain, abnormal mammogram, abnormal US or breast enlargement Musc Musculoskeletal: Yes arthritis; no back problems, rheumatoid arthritis, gout or joint pain Cardio Cardiovascular: No murmur, pacemaker, heart disease, atrial fibrillation, high blood pressure, heart attack, heart stent, palpitations, shortness of breat with exertion or chest pain Psych Psychiatric: No depression, anxiety or hearing voices Resp Respiratory: Yes sleep apnea, Yes cough, No shortness of breath, No COPD, No asthma, No emphysema, No wheezing Gastro Gastrointestinal: No abdominal pain, No nausea or vomiting, No diarrhea, No constipation, No blood in stool, No acid reflux, No hemorrhoids, No ulcers, No gallbladder problem, No black,tarry stools Ciaran Hematologic: No blood thinners, No blood disorders, No bleeding, No anemia, No blood clots Neuro Neurologic: No system reviewed and no additional complaints, except as docu, No as per HPI, No abnormal walking, No abnormal hearing, No abnormal movements, No abnormal speech, No behavioral changes, No burning sensations, No confusion, No seizure-like activity, No unsteadiness, No dizziness, No localized weakness, No frequent falls, No headache(s), No lack of coordination, No loss of vision, No memory loss, No numbness, No other visual disturbances, No radiating pain, No restless legs, No sensory deficit, No fainting, No tingling, No tremor(s), No weakness, No other Exam Const General: cooperative Nutritional Appearance: average body habitus Orientation: alert, awake Other: The patient looks notably older than stated age [facility] Head: normal to inspection Eyes General: appearance normal, both eyes and all related structures Chest Breast Palpation: No nipple discharge Other: Notably increased anterior posterior diameter of the chest with thoracic kyphosis Resp Auscultation: clear to auscultation bilaterally Cardio Rate: regular rate Heart Sounds: no murmurs Other: Bilateral carotids are 3+. Soft bruit on the right. Bilateral brachials are 3+. Bilateral radials 2+. Bilateral femoral and popliteal and DP and PT pulses are not palpable GI Palpation: soft, no hepatosplenomegaly, no pulsatile masses, other (No bruit) Musc Cervical Spine: other (Cervical kyphosis) Skin Other: Bilateral lower extremities demonstrate slight violaceous change. There is dependent rubor. Elevation pallor. There is diminished venous filling. Diminished capillary refill. The left lateral malleolus has a 1 x 0.8 cm area slight skin discoloration consistent with early pressure sore Neuro Other: Slightly diminished light touch sensation bilateral feet Extrem Other: Digital clubbing noted Psych Affect: anxious affect Assessment AND Plan Problems 1. Peripheral arterial occlusive disease I77.9 2. Tobacco abuse Z72.0 Plan 62-year-old female. She likely has aortoiliac occlusion. Findings are well within the range of vascular claudication bordering upon rest pain and critical ischemia. Her current lipid status is not known Chronic excessive tobacco addiction with ongoing use of cigarettes. Minimal right carotid bruit I recommend that we obtain a carotid duplex exam. I recommend that we obtain baseline laboratory included a lipid panel. I am recommending a CTA of the abdomen with runoff I have also asked the patient to initiate a low-dose 81 mg aspirin daily. I have vigorously encouraged the patient to cease her tobacco use. She has had an opportunity to ask and have questions answered. We will investigate whether she would be a candidate for vascular intervention locally. She has had an opportunity to ask and have questions answered. I appreciate the opportunity of assisting with her surgical care. cc: Dr Lora and Jaydon Michelle M.D., F.A.C.S. Orders Orders: Comprehensive Metabolic Profil Today Z01.818 Lipid Profile Today I73.9 CTA Abd w/Runoff W/WO Contrast Today I73.9 Carotid Duplex Ultrasound Today R09.89 CBC-Complete Blood Cnt No Diff Today Z01.818 Coding Level of Care Code Comprehensive,moderate Diagnoses Peripheral arterial occlusive disease I77.9 Tobacco abuse Z72.0 Time Spent (min) 50 06/25/18 8475<Electronically signed by Kevin Michelle MD> Date Kevin Michelle MD ROS General General: No weight change, appetite, fatigue, colon cancer, breast cancer or weakness HEENT HEENT: No difficulty swallowing, eye injury, eye surgery, swollen glands or hoarseness Endo Endocrine: No thyroid disease, diabetes mellitus, thyroid cancer, Hair loss, heat intolerance or cold intolerance Skin Skin: No rash or changing moles Breast Breast: No left breast lump, right breast lump, nipple discharge, breast pain, abnormal mammogram, abnormal US or breast enlargement Musc Musculoskeletal: Yes arthritis; no back problems, rheumatoid arthritis, gout or joint pain Cardio Cardiovascular: No murmur, pacemaker, heart disease, atrial fibrillation, high blood pressure, heart attack, heart stent, palpitations, shortness of breat with exertion or chest pain Psych Psychiatric: No depression, anxiety or hearing voices Resp Respiratory: Yes sleep apnea, Yes cough, No shortness of breath, No COPD, No asthma, No emphysema, No wheezing Gastro Gastrointestinal: No abdominal pain, No nausea or vomiting, No diarrhea, No constipation, No blood in stool, No acid reflux, No hemorrhoids, No ulcers, No gallbladder problem, No black,tarry stools Ciaran Hematologic: No blood thinners, No blood disorders, No bleeding, No anemia, No blood clots Neuro Neurologic: No weakness Exam Chest Breast Palpation: No nipple discharge Cardio Heart Sounds: no murmurs Assessment AND Plan Problems 1. PAOD (peripheral arterial occlusive disease) I77.9 Plan Today was a 30 minute [id number] consultative appointment. I reviewed her imaging. I proposed for her an attempt at a antegrade approach via a left brachial artery an attempt to vascular retreat her bilateral external iliac occlusions. She is aware that I anticipate left arm prepping and bilateral groin prepping. She is aware of the technique, benefits, risks, alternatives. Absolutely no guarantees of success have been offered. She is aware that if that is not successful that she might require a aortobifemoral bypass graft in the future to improve her symptomatology. She has had an opportunity to ask and have questions answered. She will remain on her low-dose aspirin. We will schedule and proceed at her discretion. She is very much aware that this will be a technically more demanding procedure. Cc: Jaydon Ashley NP and Dr Geno Michelle M.D., F.A.C.S. Coding Level of Care Code Off vis,est,level 3 Diagnoses PAOD (peripheral arterial occlusive disease) I77.9 Exam Const General: cooperative, healthy appearing Resp Effort AND Inspection: normal respiratory effort Auscultation: clear to auscultation bilaterally Cardio Rate: regular rate Rhythm: regular rhythm Other: Left radial 2+. Left brachial 2+ left femoral 3+. Left popliteal 3+. Left DP 1+. Left PT 3+ GI Palpation: soft, no hepatosplenomegaly Extrem Other: Warm left foot, no ulcerations Assessment AND Plan Problems 1. PAOD (peripheral arterial occlusive disease) I77.9 Plan The patient reports that she is remaining tobacco free She is on clopidogrel 75 mg daily which I initiated post procedure. I need a 90-day course. The prescription will be renewed I was not successful gaining antegrade access through her left external iliac complete occlusion but was successful with a retrograde approach from the left common femoral. The right external iliac is more difficult in that there is a flush proximal occlusion. I therefore proposed to the patient under ultrasound guidance a retrograde approach from the right common femoral. I reserve repeat accessing of the left brachial only if needed. She has had an opportunity to ask and have questions answered. We will have her hold her clopidogrel 2 days preintervention. She has had an opportunity to ask and have questions answered. She did well with her previous procedure. We will schedule and proceed at her discretion. Cc: Jaydon Michelle M.D., F.A.C.S. Coding Level of Care Code Off vis,est,level 2 Diagnoses PAOD (peripheral arterial occlusive disease) I77.9 09/16/18 0937 <Electronically signed by Kevin Michelle MD> Date Kevin Michelle MD Cosigner Signature: Date (if applicable) CC: ANN MARIE Ashley 12 LEAD ELECTROCARDIOGRAM Observed: 09/06/2018 Status: F Source: [place] 11:09 AM [facility] Cardiovascular Services [address] [place] [address] 12 Lead EKG 08/31/18 0724 MR#: [id number] Acct: [id number] Name: BRENDA MACEDO Rep #: [id number] : 1955 63 From: Leobardo Curtis MD Attending Dr: Kevin Michelle MD Status: DIS ANIL Ordering Dr: Kevin Michelle MD Date: 08/31/18 Location: [facility] Sex: F C Admitted: 08/31/18 Test Reason : PREPROCEDURE Blood Pressure : / mmHG Vent. Rate : 116 BPM Atrial Rate : 116 BPM P-R Int : 134 ms QRS Dur : 080 ms QT Int : 336 ms P-R-T Axes : 078 052 072 degrees QTc Int : 467 ms Sinus tachycardia Otherwise normal ECG No previous ECGs available Confirmed by LEOBARDO CURTIS MD ([id number]), material expeditor ANNETTA FLOYD ([id number]) on 09/06/2018 11:08:43 AM Referred By: Kevin Michelle Confirmed By:LEOBARDO CURTIS MD 09/06/18 1108 Date Leobardo Curtis MD CC: ANN MARIE Ashley; Kevin Michelle MD Signed DISCHARGE INSTRUCTION Observed: 09/01/2018 Status: F Source: [place] 11:17 AM [facility] Medical Records Department [address] [place] [address] Instructions for Home/Discharge Instructions 09/01/18 1116 MR#: [id number] Acct: [id number] Name: BRENDA MACEDO Rep #: [id number] : 1955 63 From: Saniya Mooney PA-C PCP: ANN MARIE Corona Status: ADM ANIL Discharge Diet: No Restrictions Discharge Activity: May Not Drive - 5 days, May Not Shower - 2 days Lifting Restrictions: 10 pounds Call your doctor if your incision/area has: Continuous Slow Oozing, Sudden Increased Bleeding, Increased Pain/ Swelling, Increased Redness, Foul Smelling Discharge, Swelling at the incision site Suture Line Care: Avoid Pulling/Pushing, Avoid Pinching/Bending Allergies/Adverse Reactions: Allergies No Known Allergies Allergy (Verified 08/06/18 14:47) Medications to take at Discharge acetaminophen ER 650 mg tablet,extended release 650 mg PO Q6H PRN PRN 06/25/18 Aspirin [Aspirin, Baby] 81 mg PO DAILY@0800 08/30/18 Clopidogrel Bisulfate [Plavix] 75 mg PO DAILY 90 Days #90 tablet 08/31/18 The following prescriptions were given: Clopidogrel Bisulfate [Plavix] 75 mg PO DAILY 90 Days #90 tablet Primary Care Physician: Vincent Ashley NP-C [Primary Care Provider] - Please follow up with your Primary Care Physician in: 1 week Test Results: Test results from this visit will be discussed in further detail at your follow-up appointment, if applicable. Please Follow Up With: Kevin Michelle MD - [phone] Proposed Discharge Date: 09/01/18 09/01/18 1117 <Electronically signed by Saniya Mooney PA-C> Date Saniya Mooney PA-C CC: ANN MARIE Ashley OPERATIVE REPORT Observed: 09/01/2018 Status: F Source: [place] 6:11 AM [facility] REPOSITORY [facility] Medical Records Department [address] [place] [address] Operative Report 08/31/18 1208 MR#: [id number] Acct: [id number] Name: ML MACEDOH Ho Rep #: [id number] : 1955 63 From: Kevin Michelle MD PCP: Vincent Ashley, OPERATOR SPECIALIST COMMUNICATIONS-C Status: ADM ANIL Y Location: [place] [address] Problem List (1) Peripheral arterial occlusive disease Status: Acute Report of Operation Date of Procedure: 08/31/18 Pre-Operative Diagnosis: Symptomatic bilateral extremity peripheral vascular occlusive disease with occluded bilateral external iliac arteries Post-Operative Diagnosis: Symptomatic bilateral extremity peripheral vascular occlusive disease with occluded bilateral external iliac arteries with 50% stenosis distal left common iliac Surgery/Procedure Performed:: Abdominal pelvic arteriogram via left brachial approach. Attempted revascularization left external iliac via the left brachial approach. Successful left external iliac revascularization via retrograde left common femoral artery approach with 6 x 80 mm ever cross angioplasty and 7 x 150 mm ever flex stenting Description of Surgical Findings:: 63-year-old female was taken to the special procedures lab. She was placed upon the table. The left arm was placed on an armboard bilateral groins and left arm were sterilely prepped and draped. Timeout and informed consent was obtained. Patient received 50 mcg of fentanyl and 2 mg Versed is intravenous station. Under ultrasound guidance the left brachial artery is identified 2% lidocaine was instilled micropuncture needle inserted micropuncture wire inserted micropuncture sheath inserted 035 J-wire was inserted 5 Guyanese short sheath was inserted. Then using a 4 Guyanese IM catheter and a angled floppy Glidewire access was gained to the thoracic aorta and then was advanced down to the abdominal aorta. Over the Glidewire a 5 Guyanese pigtail catheter was placed. Using Isovue contrast the rate of 15 cc a second 15 cc a aortic pelvic arteriogram was obtained. This demonstrated occlusion of bilateral external iliacs with 50% stenosis of the distal left common iliac. There was a flush occlusion on the right of the external iliac. There was a small stab on the left. I elected to attempt to address the left groin. At this point the patient received 7000 ends of heparin IV and then based upon ACT measurements throughout the case she received a total of 11,000 units of heparin. I placed a 035 Magic wire. I exchanged out the short sheath for a 70 cm 7 Guyanese Javier sheath. Then placed a 018 quick cross catheter and an 1 8 connect wire. Try to gain access to the area of complete occlusion. I was able to advance the connect wire to a degree but could not reestablish flow at the distal left external iliac. Hand- injection views done through the sheath suggested that she had a relatively long left common femoral artery. As I was not being successful antegrade I elected to attempt a retrograde approach. Ultrasound was used to identify the left superficial femoral common femoral artery 2% lidocaine was instilled micropuncture needle was inserted retrograde with flow micropuncture wire micropuncture sheath and 035 J-wire was used to place a 7 Guyanese sheath. Hand-injection demonstrated true lumen. I then used a 0335 quick cross catheter and an 035 stiff Glidewire was able to gain access through the completely occluded left external iliac into the true lumen of the aorta. Hand-injection views demonstrated true lumen. I then withdrew the 018 quick cross catheter from above. I placed a 035 Magic wire from the left common femoral and I performed balloon angioplasty of the left external iliac for its entire duration and the mid and distal portion of the left common iliac with a 6 x 80 mm ever cross balloon. Upon completion there was evidence of dissection in the mid section which extended down distally and the external iliac. I elected to cover the entire area with a 7 x 150 mm ever flex stent as the 100 mm stent would not cover the disease involving the left distal common iliac. That stent was carefully positioned so as to cover the reentry site at the left common femoral artery. The stent was deployed then it was seated in place with the 6 x 80 mm ever cross balloon. Final pigtail injection from the aorta demonstrated now wide open patency of the distal left common iliac and left external iliac with good flow into the left common femoral. At this point to the contrast and amount of time ensued I elected to hold the procedure at this setting. I anticipate observing her results with the left lower extremity. The patient has a flush occlusion of the right external iliac. If she performs well on the left that I would anticipate returning to the procedure room with a planned retrograde approach from the right common femoral in an attempt to recanalize her right external iliac. If that is not successful then I could consider a future femoral femoral crossover from left to right. The left groin sheath was removed over Magic wire and a Perclose device was inserted and deployed with good results and immediate hemostasis. The patient has a very nicely palpable 3+ left PT pulse and a weaker left anterior tibial pulse. Images demonstrate a patent abdominal aorta patent bilateral common iliacs the right common iliac appears to be adequate and then there is a complete flush occlusion of the right external iliac there is refill of the right common femoral just at the inguinal ligament there is collateralized flow view of the right internal iliac. The left internal iliac similarly provides collateral flow. The small stab of patency of the left external iliac. The left common femoral refills just at the inguinal ligament. Subsequent to the angioplasty and stenting of the left external iliac and distal common iliac there is now reconstitution of direct in-line flow. Contrast utilized was 60 cc. She tired procedure well was taken to the recovery area in satisfactory condition without apparent complication. Good hemostasis was achieved with a Perclose device in the left groin. ACT monitoring was performed. The left brachial sheath will be removed in the recovery area. Kevin Michelle M.D., F.A.C.S. Type of Anesthesia:: IV Sedation, Local 09/01/18 0611 <Electronically signed by Kevin Michelle MD> Date Kevin Michelle MD CC: ANN MARIE Ashley; Kevin Michelle MD Signed ACT ACTIVATED CLOTTING Collected: 08/31/2018 Status: F Source: [place] TIME 1:06 PM [facility] REPOSITORY TYPE CODE TESTS RESULT OUT OF RANGE REFERENCE UNITS LAB L9100.0100 74-137 sec High ACTk CLOT 180 TIME Performed By: #### L9100.0100 #### [facility] Point of Care [address] [place], [place] [address] ACT ACTIVATED CLOTTING Collected: 08/31/2018 Status: F Source: [place] TIME 12:00 PM [facility] REPOSITORY TYPE CODE TESTS RESULT OUT OF RANGE REFERENCE UNITS LAB L9100.0100 74-137 sec High ACTk CLOT 224 TIME Performed By: #### L9100.0100 #### [facility] Point of Care [address] [place] [address] ACT ACTIVATED CLOTTING Collected: 08/31/2018 Status: F Source: [place] TIME 11:16 AM [facility] REPOSITORY TYPE CODE TESTS RESULT OUT OF RANGE REFERENCE UNITS LAB L9100.0100 74-137 sec High ACTk CLOT 219 TIME Performed By: #### L9100.0100 #### [facility] Point of Care [address] [place], [place] [address] ACT ACTIVATED CLOTTING Collected: 08/31/2018 Status: F Source: [place] TIME 10:22 AM [facility] REPOSITORY TYPE CODE TESTS RESULT OUT OF RANGE REFERENCE UNITS LAB L9100.0100 74-137 sec High ACTk CLOT 208 TIME Performed By: #### L9100.0100 #### [facility] Point of Care [address] [place] [address] CBC-COMPLETE BLOOD CNT Collected: 08/30/2018 Status: F Source: [place] NO DIFF 9:05 AM [facility] REPOSITORY TYPE CODE TESTS RESULT OUT OF RANGE REFERENCE UNITS LAB L100.1000 4.4-11.0 K/mm3 Normal WBC 9.8 LAB L100.1200 4.2-5.4 M/mm3 Normal RBC 4.76 LAB L100.1300 12.0-15.0 g/dl Normal HGB 13.1 LAB L100.1400 37-47 % Normal HCT 41.5 LAB L100.1500 81-99 fL Normal MCV 87.2 LAB L100.1600 27.0-32.0 pg Normal MCH 27.5 LAB L100.1700 32-36 g/gl Low MCHC 31.6 LAB L100.1810 11.6-14.6 % Normal RDW CV 14.1 LAB L100.1820 35.1-43.9 fl High RDW SD 45.2 LAB L100.1900 150-450 K/mm3 Normal PLT 359 LAB L100.2000 6.2-12.0 fl Normal MPV 10.0 Performed By: #### L100.0500 #### [facility] [address] [place], [place], [address] BASIC METABOLIC Collected: 08/30/2018 Status: F Source: ZARA PROFILE (BMP) 9:05 AM [facility] REPOSITORY TYPE CODE TESTS RESULT OUT OF RANGE REFERENCE UNITS LAB L501.0100 74-106 mg/dL Normal GLU 91 Result Comment: Please note revised GLUCOSE reference range effective 2017. LAB L501.1000 7-18 mg/dL Normal BUN 14 LAB L501.1100 0.55-1.02 mg/dL Normal CREAT,SERUM 0.62 Result Comment: The validity of the calculated GFR AND GFRAA in patients over 70 years has not been determined. Clinical correlation is essential. LAB L501.1110 >60 mL/min Normal EST GFR 104 Result Comment: Non- GFR Calc LAB L501.1115 >60 mL/min Normal EST GFR - AA 126 Result Comment: GFR Calc LAB L501.1300 10-20 RATIO High BUN/CRE 22.6 LAB L501.2200 8.5-10.1 mg/dL CA Normal 8.9 LAB L501.5300 136-145 mmol/L NA Normal 140 LAB L501.5600 3.5-5.1 mmol/L K Normal 3.8 LAB L501.5900 98-107 mmol/L CL Normal 105 LAB L501.6100 21.0-32.0 mmol/L Normal CO2 26.0 LAB L501.6200 5-15 Normal GAP 9 Performed By: #### L500.2500 #### [facility] [address] [place], [place], [address] SURGERY VISIT REPORT Observed: 08/06/2018 Status: F Source: [place] 4:25 PM [facility] REPOSITORY [facility] [address] [place] [address] OFFICE VISIT Date of Service: 08/06/18 MR#: [id number] Acct: [id number] Name: BRENDA MACEDO Rep #: [id number] : 1955 Provider: Kevin Michelle MD Age/Sex: 63/F Location: [facility] Status: Signed Intake Vital Signs08/06/18 Height 4 ft 11 in 08/06/18 Weight: 140 lb 2 oz 08/06/18 Body Mass Index (BMI) 28.3 08/06/18 Blood Pressure 158/92 Intake Visit Reasons: CTA and carotid US/ lipids Chief Complaint: CTA and carotid results Aviation Electronic Warfare Operator Required: No Is patient in pain?: No Allergies No Known Allergies Allergy (Verified 08/06/18 14:47) Medications acetaminophen ER 650 mg tablet,extended release 650 mg PO ONCE 06/25/18 [History Confirmed 06/25/18] Is last menstrual period known: No Post menopausal: Yes Patient : No PFSH Medical History Tobacco abuse (Acute) Peripheral arterial occlusive disease (Acute) Arthritis (Acute) Cervical cancer (Acute) PVD (peripheral vascular disease) (Acute) Family History Mother Breast cancer Social History Smoking Status: Current every day smoker alcohol intake: never HPI HPI HPI: BRENDA MACEDO, is a 63 F who presents to the office today for surgical discussion regarding her previous office appointment complaint of bilateral extremity claudication with clinically relevant peripheral vascular occlusive disease. Notation is as below. She had a carotid duplex which does not demonstrate acute disease. She has bilateral external iliac occlusions as noted on her CTA. Carotid Duplex Ultrasound 07/05/18 1249 MR#: [id number] Name: BRENDA MACEDO [facility] #:[id number] : 1955 62From: Kevin Michelle MD Attending Dr: Miguel Angel SALEH,RobertStatus: REG CLI Ordering Dr: Kevin Michelle MDDate: 07/05/18 Location:CVSSex: Admitted: Reason For Study: carotid bruit Rt. Velocities/BP Lt. Velocities/BP Prox CCA 92.0/26.4 cm/sec. Prox CCA 117.0/25.8 cm/sec. Mid CCA 90.9/24.6 cm/sec. Mid CCA 101.0/32.2 cm/sec. Dist CCA 86.2/28.1 cm/sec. Dist CCA 106.0/35.2 cm/sec. Prox ICA 60.4/22.9 cm/sec. Prox ICA 71.5/22.9 cm/sec. Mid ICA 93.8/32.8 cm/sec. Mid ICA 97.9/42.2 cm/sec. Dist ICA 163.0/38.5 cm/sec. Dist ICA 101.0/48.1 cm/sec. Rt. ICA/CCA = 1.8. Lt. ICA/CCA = 101.0/101.0=1.0. Prox ECA 87.9/22.9 cm/sec. Prox ECA 87.4/24.6 cm/sec. Rt. Vert. 55.4/15.7 cm/sec. Lt. Vert. 62.7/21.7 cm/sec. Right Extracranial There is intimal thickening but no significant atherosclerotic plaque noted in the right common carotid artery. There is homogeneous, smooth atherosclerotic plaque noted in the right internal carotid artery. The tortuous nature of the right internal carotid artery may result in flow velocities overestimating the degree of stenosis. There is intimal thickening but no significant atherosclerotic plaque noted in the right external carotid artery. Antegrade flow is noted in the right vertebral artery. Left Extracranial There is intimal thickening but no significant atherosclerotic plaque noted in the left common carotid artery. There is homogeneous, smooth atherosclerotic plaque noted in the left internal carotid artery. There is no significant atherosclerotic plaque noted in the left external carotid artery. Antegrade flow is noted in the left vertebral artery. Procedure Carotid Duplex 15457. The exam was diagnostic. Exam performed in department. Interpretation Summary No hemodynamically significant plague or stenosis bilateal extracranial internal carotids wit <50% stenosis bilaterally. Suspect isolated increased velocity in the distal right internal carotid is secondary to tortuosity Normal flow bilateral external carotids Patent and antegrade vertebrals bilaterally Ordering Physician: Kevin Michelle Referring Physician: Vincent Ashley Performed By: Danielle Oliveira, RDCS, RVT 07/06/18 0547 Date Kevin Michelle MD [facility] [address] [place] [address] CTA Abd w/Runoff W/WO Contrast MR#: [id number] Name: BRENDA MACEDO [facility] #:[id number] : 1955F 62 From: John Pathak MD PCP:Vincent Ashley, OPERATOR SPECIALIST COMMUNICATIONS-C Status:REG CLI Study:CTA Abd w/Runoff W/WO Contrast Date of Exam:07/21/18 Exam#[id number] Ordering Dr: Kevin Michelle MD STUDY: CTA OF THE ABDOMINAL AORTA AND BILATERAL LOWER EXTREMITIES REASON FOR EXAM: Female, 62 years old. Bilateral lower extremity pain and claudication RADIATION DOSAGE (If Supplied By Facility): CTDIvol = ( 6.42 ) mGy, DLP = ( 970.57 ) mGycm TECHNIQUE: Axial CT angiography multi-detector data acquisition was obtained from the to the following intravenous administration of 100mL ml of Isovue 370 contrast. Axial images and MIP images were reconstructed from the axial data set. Post-processing of the angiographic images was performed, with multiplanar reformation and 3D reconstruction. Individualized dose optimization techniques were used for this CT. TECHNICAL QUALITY: Good COMPARISON: None. Descriptors of Narrowing: None (0%) Mild (< 50%) Moderate (50-70%) Severe (70-90%) Subtotal/Total Occlusion (90-100%) Non-Evaluable (technically non-diagnostic FINDINGS: Abdominal aorta: No demonstrated narrowing. Celiac and superior mesenteric arteries: No demonstrated narrowing. Inferior mesenteric artery: No demonstrated narrowing. Right renal artery(arteries): No demonstrated narrowing. Left renal artery(arteries): No demonstrated narrowing. Right common iliac artery: Mild atherosclerotic calcification without focal stenosis. Right external iliac artery: Long segment occlusion from origin to the level of the inguinal ligament where there is reconstituted flow via the inferior epigastric artery. Right internal iliac artery: No demonstrated narrowing. Left common iliac artery: No demonstrated narrowing. Left external iliac artery: Long segment occlusion from its origin to the inguinal ligament where there is reconstitution via inferior epigastric artery. Left internal iliac artery: No demonstrated narrowing. RIGHT LOWER EXTREMITY Right common femoral artery: No demonstrated narrowing. Right profundus femoris: No demonstrated narrowing. Right superficial femoral: No demonstrated narrowing. Right popliteal artery: No demonstrated narrowing. Right tibioperoneal trunk: No demonstrated narrowing. Right anterior tibial artery: Diminutive flow distally with reconstitution of dorsalis pedis artery via peroneal collaterals Right posterior tibial artery: No demonstrated narrowing. Right peroneal artery: No demonstrated narrowing. LEFT LOWER EXTREMITY Left common femoral artery: No demonstrated narrowing. Left profundus femoris: No demonstrated narrowing. Left superficial femoral: No demonstrated narrowing. Left popliteal artery: No demonstrated narrowing. Left tibioperoneal trunk: No demonstrated narrowing. Left anterior tibial artery: No demonstrated narrowing. Left posterior tibial artery: No demonstrated narrowing. Left peroneal artery: No demonstrated narrowing. CT/CTA Abd w/Runoff W/WO Contrast IMPRESSION: 1. Long segment occlusion of bilateral external iliac arteries from their origins to the inguinal ligaments where there is reconstitution of flow via bilateral inferior epigastric arteries. 2. Diminutive flow in the distal third of the right anterior tibial artery with reconstitution of the dorsalis pedis artery via peroneal collaterals. Electronically Signed: John Pathak MD at 4:33 EDT Tel , Service support , CC: ANN MARIE Ashley; Kevin Michelle MD Wind Energy Technician: Signed MR#:[id number] Name: BRENDA MACEDO [facility] #:[id number] : 1955 Provider:Kevin Michelle MD Age/Sex: 62/F Location:[facility] Status:Signed Intake Vital Signs 06/25/18 Height 4 ft 11 in 06/25/18 Weight: 140 lb 06/25/18 Body Mass Index (BMI) 28.3 06/25/18 Blood Pressure 165/104 06/25/18 Blood Pressure Location Lt brachial 06/25/18 Blood Pressure Position Sitting 06/25/18 Respiratory Rate 22 06/25/18 Pulse Rate 124 06/25/18 Pulse Ox 97 06/25/18 Oxygen Delivery Method room air Intake Visit Reasons: PVD Arterial Study [facility] 05/10 Aviation Electronic Warfare Operator Required: No Is patient in pain?: Yes (bilateral legs) Allergies No Known Allergies Allergy (Verified 01/22/15 22:18) Medications acetaminophen ER 650 mg tablet,extended release 650 mg PO ONCE 06/25/18 [History Confirmed 06/25/18] PFSH Medical History Tobacco abuse (Acute) Peripheral arterial occlusive disease (Acute) Arthritis (Acute) Cervical cancer (Acute) PVD (peripheral vascular disease) (Acute) Family History Mother Breast cancer Social History Smoking Status: Current every day smoker alcohol intake: never HPI HPI HPI: BRENDA MACEDO, is a 62 F who presents to the office today for surgical consultation regarding peripheral vascular occlusive disease. The patient is referred by Dr. Lora written copy of my surgical consult recommendations will be returned to her. The patient complains of inability to walk half a block. She cannot climb stairs. She fortunately has not had any open ulcerations. This is been steadily progressive over several months. She has not had any open ulcerations that she is noted. She denies myocardial infarction or CVA or diabetes. She claims she has not had any vascular intervention. She is a long-term cigarette smoker at 2 packs per day. She is not aware of what her baseline lipid panel is. On May 10, 2018 she had bilateral extremity noninvasive arterial exam at rest. The right low thigh index is 0.63 with a right PT and DP index of 0.51-0.67 and biphasic right posterior tibial and dorsalis pedis waveforms. The left low thigh index is 0.52 with a left PT and DP ankle-brachial index of 0.460.35 with monophasic left DP and PT Doppler waveforms. The patient's previous history includes that of cervical cancer. After examining her it was noted that she has a very early superficial left lateral malleolus skin injury. She states this is secondary to new shoes ROS General General: No weight change, appetite, fatigue, colon cancer, breast cancer or weakness HEENT HEENT: No difficulty swallowing, eye injury, eye surgery, swollen glands or hoarseness Endo Endocrine: No thyroid disease, diabetes mellitus, thyroid cancer, Hair loss, heat intolerance or cold intolerance Skin Skin: No rash or changing moles Breast Breast: No left breast lump, right breast lump, nipple discharge, breast pain, abnormal mammogram, abnormal US or breast enlargement Musc Musculoskeletal: Yes arthritis; no back problems, rheumatoid arthritis, gout or joint pain Cardio Cardiovascular: No murmur, pacemaker, heart disease, atrial fibrillation, high blood pressure, heart attack, heart stent, palpitations, shortness of breat with exertion or chest pain Psych Psychiatric: No depression, anxiety or hearing voices Resp Respiratory: Yes sleep apnea, Yes cough, No shortness of breath, No COPD, No asthma, No emphysema, No wheezing Gastro Gastrointestinal: No abdominal pain, No nausea or vomiting, No diarrhea, No constipation, No blood in stool, No acid reflux, No hemorrhoids, No ulcers, No gallbladder problem, No black,tarry stools Ciaran Hematologic: No blood thinners, No blood disorders, No bleeding, No anemia, No blood clots Neuro Neurologic: No system reviewed and no additional complaints, except as docu, No as per HPI, No abnormal walking, No abnormal hearing, No abnormal movements, No abnormal speech, No behavioral changes, No burning sensations, No confusion, No seizure-like activity, No unsteadiness, No dizziness, No localized weakness, No frequent falls, No headache(s), No lack of coordination, No loss of vision, No memory loss, No numbness, No other visual disturbances, No radiating pain, No restless legs, No sensory deficit, No fainting, No tingling, No tremor(s), No weakness, No other Exam Const General: cooperative Nutritional Appearance: average body habitus Orientation: alert, awake Other: The patient looks notably older than stated age [facility] Head: normal to inspection Eyes General: appearance normal, both eyes and all related structures Chest Breast Palpation: No nipple discharge Other: Notably increased anterior posterior diameter of the chest with thoracic kyphosis Resp Auscultation: clear to auscultation bilaterally Cardio Rate: regular rate Heart Sounds: no murmurs Other: Bilateral carotids are 3+. Soft bruit on the right. Bilateral brachials are 3+. Bilateral radials 2+. Bilateral femoral and popliteal and DP and PT pulses are not palpable GI Palpation: soft, no hepatosplenomegaly, no pulsatile masses, other (No bruit) Musc Cervical Spine: other (Cervical kyphosis) Skin Other: Bilateral lower extremities demonstrate slight violaceous change. There is dependent rubor. Elevation pallor. There is diminished venous filling. Diminished capillary refill. The left lateral malleolus has a 1 x 0.8 cm area slight skin discoloration consistent with early pressure sore Neuro Other: Slightly diminished light touch sensation bilateral feet Extrem Other: Digital clubbing noted Psych Affect: anxious affect Assessment AND Plan Problems 1. Peripheral arterial occlusive disease I77.9 2. Tobacco abuse Z72.0 Plan 62-year-old female. She likely has aortoiliac occlusion. Findings are well within the range of vascular claudication bordering upon rest pain and critical ischemia. Her current lipid status is not known Chronic excessive tobacco addiction with ongoing use of cigarettes. Minimal right carotid bruit I recommend that we obtain a carotid duplex exam. I recommend that we obtain baseline laboratory included a lipid panel. I am recommending a CTA of the abdomen with runoff I have also asked the patient to initiate a low-dose 81 mg aspirin daily. I have vigorously encouraged the patient to cease her tobacco use. She has had an opportunity to ask and have questions answered. We will investigate whether she would be a candidate for vascular intervention locally. She has had an opportunity to ask and have questions answered. I appreciate the opportunity of assisting with her surgical care. cc: Dr Lora and Jaydon Michelle M.D., F.A.C.S. Orders Orders: Comprehensive Metabolic Profil Today Z01.818 Lipid Profile Today I73.9 CTA Abd w/Runoff W/WO Contrast Today I73.9 Carotid Duplex Ultrasound Today R09.89 CBC-Complete Blood Cnt No Diff Today Z01.818 Coding Level of Care Code Comprehensive,moderate Diagnoses Peripheral arterial occlusive disease I77.9 Tobacco abuse Z72.0 Time Spent (min) 50 06/25/18 7814<Electronically signed by Kevin Michelle MD> Date Kevin Michelle MD ROS General General: No weight change, appetite, fatigue, colon cancer, breast cancer or weakness HEENT HEENT: No difficulty swallowing, eye injury, eye surgery, swollen glands or hoarseness Endo Endocrine: No thyroid disease, diabetes mellitus, thyroid cancer, Hair loss, heat intolerance or cold intolerance Skin Skin: No rash or changing moles Breast Breast: No left breast lump, right breast lump, nipple discharge, breast pain, abnormal mammogram, abnormal US or breast enlargement Musc Musculoskeletal: Yes arthritis; no back problems, rheumatoid arthritis, gout or joint pain Cardio Cardiovascular: No murmur, pacemaker, heart disease, atrial fibrillation, high blood pressure, heart attack, heart stent, palpitations, shortness of breat with exertion or chest pain Psych Psychiatric: No depression, anxiety or hearing voices Resp Respiratory: Yes sleep apnea, Yes cough, No shortness of breath, No COPD, No asthma, No emphysema, No wheezing Gastro Gastrointestinal: No abdominal pain, No nausea or vomiting, No diarrhea, No constipation, No blood in stool, No acid reflux, No hemorrhoids, No ulcers, No gallbladder problem, No black,tarry stools Ciaran Hematologic: No blood thinners, No blood disorders, No bleeding, No anemia, No blood clots Neuro Neurologic: No weakness Exam Chest Breast Palpation: No nipple discharge Cardio Heart Sounds: no murmurs Assessment AND Plan Problems 1. PAOD (peripheral arterial occlusive disease) I77.9 Plan Today was a 30 minute [id number] consultative appointment. I reviewed her imaging. I proposed for her an attempt at a antegrade approach via a left brachial artery an attempt to vascular retreat her bilateral external iliac occlusions. She is aware that I anticipate left arm prepping and bilateral groin prepping. She is aware of the technique, benefits, risks, alternatives. Absolutely no guarantees of success have been offered. She is aware that if that is not successful that she might require a aortobifemoral bypass graft in the future to improve her symptomatology. She has had an opportunity to ask and have questions answered. She will remain on her low-dose aspirin. We will schedule and proceed at her discretion. She is very much aware that this will be a technically more demanding procedure. Cc: Jaydon Ashley NP and Dr Geno Michelle M.D., F.A.C.S. Coding Level of Care Code Off vis,est,level 3 Diagnoses PAOD (peripheral arterial occlusive disease) I77.9 08/06/18 0615 <Electronically signed by Kevin Michelle MD> Date Kevin Michelle MD Cosigner Signature: Date (if applicable) CC: OPERATOR SPECIALIST COMMUNICATIONS-C Vincent Ashley; Lucia Lora DPM CTA ABD W/RUNOFF W/WO Observed: 07/21/2018 Status: F Source: [place] 2:50 PM [facility] REPOSITORY [facility] Imaging Services [address] [place] [address] CTA Abd w/Runoff W/WO Contrast MR#: [id number] Acct: [id number] Name: BRENDA MACEDO Rep #: [id number] : 1955 F 62 From: John Pathak MD PCP: ANN MARIE Corona Status: REG CLI Study: CTA Abd w/Runoff W/WO Contrast Date of Exam: 07/21/18 Exam# [id number] Ordering Dr: Kevin Michelle MD STUDY: CTA OF THE ABDOMINAL AORTA AND BILATERAL LOWER EXTREMITIES REASON FOR EXAM: Female, 62 years old. Bilateral lower extremity pain and claudication RADIATION DOSAGE (If Supplied By Facility): CTDIvol = ( 6.42 ) mGy, DLP = ( 970.57 ) mGycm TECHNIQUE: Axial CT angiography multi-detector data acquisition was obtained from the to the following intravenous administration of 100mL ml of Isovue 370 contrast. Axial images and MIP images were reconstructed from the axial data set. Post-processing of the angiographic images was performed, with multiplanar reformation and 3D reconstruction. Individualized dose optimization techniques were used for this CT. TECHNICAL QUALITY: Good COMPARISON: None. Descriptors of Narrowing: None (0%) Mild (< 50%) Moderate (50-70%) Severe (70-90%) Subtotal/Total Occlusion (90-100%) Non-Evaluable (technically non-diagnostic FINDINGS: Abdominal aorta: No demonstrated narrowing. Celiac and superior mesenteric arteries: No demonstrated narrowing. Inferior mesenteric artery: No demonstrated narrowing. Right renal artery(arteries): No demonstrated narrowing. Left renal artery(arteries): No demonstrated narrowing. Right common iliac artery: Mild atherosclerotic calcification without focal stenosis. Right external iliac artery: Long segment occlusion from origin to the level of the inguinal ligament where there is reconstituted flow via the inferior epigastric artery. Right internal iliac artery: No demonstrated narrowing. Left common iliac artery: No demonstrated narrowing. Left external iliac artery: Long segment occlusion from its origin to the inguinal ligament where there is reconstitution via inferior epigastric artery. Left internal iliac artery: No demonstrated narrowing. RIGHT LOWER EXTREMITY Right common femoral artery: No demonstrated narrowing. Right profundus femoris: No demonstrated narrowing. Right superficial femoral: No demonstrated narrowing. Right popliteal artery: No demonstrated narrowing. Right tibioperoneal trunk: No demonstrated narrowing. Right anterior tibial artery: Diminutive flow distally with reconstitution of dorsalis pedis artery via peroneal collaterals Right posterior tibial artery: No demonstrated narrowing. Right peroneal artery: No demonstrated narrowing. LEFT LOWER EXTREMITY Left common femoral artery: No demonstrated narrowing. Left profundus femoris: No demonstrated narrowing. Left superficial femoral: No demonstrated narrowing. Left popliteal artery: No demonstrated narrowing. Left tibioperoneal trunk: No demonstrated narrowing. Left anterior tibial artery: No demonstrated narrowing. Left posterior tibial artery: No demonstrated narrowing. Left peroneal artery: No demonstrated narrowing. CT/CTA Abd w/Runoff W/WO Contrast IMPRESSION: 1. Long segment occlusion of bilateral external iliac arteries from their origins to the inguinal ligaments where there is reconstitution of flow via bilateral inferior epigastric arteries. 2. Diminutive flow in the distal third of the right anterior tibial artery with reconstitution of the dorsalis pedis artery via peroneal collaterals. Electronically Signed: John Pathak MD at 4:33 EDT Tel , Service support , CC: ANN MARIE Ashley; Kevin Michelle MD Wind Energy Technician: Signed CAROTID DUPLEX Observed: 07/06/2018 Status: F Source: [place] ULTRASOUND 5:48 AM [facility] REPOS[facility]ORY [facility] Cardiovascular Services [place] [address] Carotid Duplex Ultrasound 07/05/18 1249 MR#: [id number] Acct: [id number] Name: BRENDA MACEDO Rep #: [id number] : 1955 62 From: Kevin Michelle MD Attending Dr: Kevin Michelle MD Status: REG CLI Ordering Dr: Kevin Michelle MD Date: 07/05/18 Location: [facility] Sex: F C Admitted: Reason For Study: carotid bruit Rt. Velocities/BP Lt. Velocities/BP Prox CCA 92.0/26.4 cm/sec. Prox CCA 117.0/25.8 cm/sec. Mid CCA 90.9/24.6 cm/sec. Mid CCA 101.0/32.2 cm/sec. Dist CCA 86.2/28.1 cm/sec. Dist CCA 106.0/35.2 cm/sec. Prox ICA 60.4/22.9 cm/sec. Prox ICA 71.5/22.9 cm/sec. Mid ICA 93.8/32.8 cm/sec. Mid ICA 97.9/42.2 cm/sec. Dist ICA 163.0/38.5 cm/sec. Dist ICA 101.0/48.1 cm/sec. Rt. ICA/CCA = 1.8. Lt. ICA/CCA = 101.0/101.0=1.0. Prox ECA 87.9/22.9 cm/sec. Prox ECA 87.4/24.6 cm/sec. Rt. Vert. 55.4/15.7 cm/sec. Lt. Vert. 62.7/21.7 cm/sec. Right Extracranial There is intimal thickening but no significant atherosclerotic plaque noted in the right common carotid artery. There is homogeneous, smooth atherosclerotic plaque noted in the right internal carotid artery. The tortuous nature of the right internal carotid artery may result in flow velocities overestimating the degree of stenosis. There is intimal thickening but no significant atherosclerotic plaque noted in the right external carotid artery. Antegrade flow is noted in the right vertebral artery. Left Extracranial There is intimal thickening but no significant atherosclerotic plaque noted in the left common carotid artery. There is homogeneous, smooth atherosclerotic plaque noted in the left internal carotid artery. There is no significant atherosclerotic plaque noted in the left external carotid artery. Antegrade flow is noted in the left vertebral artery. Procedure Carotid Duplex 59400. The exam was diagnostic. Exam performed in department. Interpretation Summary No hemodynamically significant plague or stenosis bilateal extracranial internal carotids wit <50% stenosis bilaterally. Suspect isolated increased velocity in the distal right internal carotid is secondary to tortuosity Normal flow bilateral external carotids Patent and antegrade vertebrals bilaterally Ordering Physician: Kevin Michelle Referring Physician: Vincent Ashley Performed By: Danielle Oliveira, VINEETCS, RVT 07/06/18 0547 Date Kevin Michelle MD CC: OPERATOR SPECIALIST COMMUNICATIONS-C Vincent Ashley; Kevin Michelle MD Date Dictated: 07/05/18 1249 Date Transcribed: 07/06/1851 Wind Energy Technician: Signed CBC-COMPLETE BLOOD CNT Collected: 06/28/2018 Status: F Source: [place] NO DIFF 9:23 AM [facility] REPOSITORY TYPE CODE TESTS RESULT OUT OF RANGE REFERENCE UNITS LAB L100.1000 4.4-11.0 K/mm3 Normal WBC 7.7 LAB L100.1200 4.2-5.4 M/mm3 Normal RBC 4.85 LAB L100.1300 12.0-15.0 g/dl Normal HGB 13.4 LAB L100.1400 37-47 % Normal HCT 42.2 LAB L100.1500 81-99 fL Normal MCV 87.0 LAB L100.1600 27.0-32.0 pg Normal MCH 27.6 LAB L100.1700 32-36 g/gl Low MCHC 31.8 LAB L100.1810 11.6-14.6 % High RDW CV 14.8 LAB L100.1820 35.1-43.9 fl High RDW SD 47.4 LAB L100.1900 150-450 K/mm3 Normal PLT 387 LAB L100.2000 6.2-12.0 fl Normal MPV 10.0 Performed By: #### L100.0500 #### [facility] [address] [place], [address] COMPREHENSIVE METABOLIC Collected: 06/28/2018 Status: F Source: [facility] 9:23 AM [facility] REPOSITORY TYPE CODE TESTS RESULT OUT OF RANGE REFERENCE UNITS LAB L501.0100 74-106 mg/dL Normal GLU 94 Result Comment: Please note revised GLUCOSE reference range effective 2017. LAB L501.1000 7-18 mg/dL High BUN 20 LAB L501.1100 0.55-1.02 mg/dL Normal CREAT,SERUM 0.65 Result Comment: The validity of the calculated GFR AND GFRAA in patients over 70 years has not been determined. Clinical correlation is essential. LAB L501.1110 >60 mL/min Normal EST GFR 98 Result Comment: Non- GFR Calc LAB L501.1115 >60 mL/min Normal EST GFR - AA 119 Result Comment: GFR Calc LAB L501.1300 10-20 RATIO High BUN/CRE 30.7 LAB L501.1500 6.4-8.2 g/dL T Normal PROT 7.5 LAB L501.1800 3.2-5.0 g/dL Normal ALB 3.6 LAB L501.1950 2.2-4.2 g/dL Normal GLOB 3.9 LAB L501.2000 0.9-2.4 RATIO Normal A/G 0.9 LAB L501.2200 8.5-10.1 mg/dL CA Normal 8.8 LAB L501.4100 15-37 U/L Normal AST 15 LAB L501.4305 45-117 U/L High ALK P 184 LAB L501.4405 13-56 U/L Normal ALT 25 LAB L501.4600 0.20-1.00 mg/dL T Normal BILI 0.20 LAB L501.5300 136-145 mmol/L NA Normal 142 LAB L501.5600 3.5-5.1 mmol/L K Normal 4.0 LAB L501.5900 98-107 mmol/L CL Normal 105 LAB L501.6100 21.0-32.0 mmol/L Normal CO2 25.0 LAB L501.6200 5-15 Normal GAP 12 Performed By: #### L500.4050, L500.4100 #### [facility] [address] [place], [place], [address] LIPID PROFILE Collected: 06/28/2018 Status: F Source: [place] 9:23 AM [facility] REPOSITORY TYPE CODE TESTS RESULT OUT OF RANGE REFERENCE UNITS LAB L501.4900 200 mg/dL High CHOL 272 Result Comment: <200 mg/dL Desirable 200-240 mg/dL Borderline >240 mg/dL High Risk LAB L501.5000 mg/dL Normal TRIG 119 Result Comment: The drugs N-Acetylcysteine and Metamizole may falsely depress this assay. Serum Triglycerides Reference Interval Normal <150 mg/dL Borderline high 150 - 199 mg/dL High 200 - 499 mg/dL Very High > or = 500 mg/dL LAB L501.6400 mg/dL Normal HDL 45 Result Comment: The drugs N-Acetylcysteine and Metamizole may falsely depress this assay. Reference Range HDL <40 mg/dL Low HDL Cholesterol HDL >or= 60 mg/dL High HDL Cholesterol LAB L501.6500 0-130 mg/dL High LDL 203 LAB L501.6600 5-40 mg/dL Normal VLDL 24 Performed By: #### L500.4050, L500.4100 #### [facility] [address] [place], [place], [address] SURGERY VISIT REPORT Observed: 06/25/2018 Status: F Source: [place] 5:44 PM [facility] REPOSITORY [facility] [address] [place] [address] OFFICE VISIT Date of Service: 06/25/18 MR#: [id number] Acct: [id number] Name: BRENDA MACEDO Rep #: [id number] : 1955 Provider: Kevin Michelle MD Age/Sex: 62/F Location: [facility] Status: Signed Intake Vital Signs06/25/18 Height 4 ft 11 in 06/25/18 Weight: 140 lb 06/25/18 Body Mass Index (BMI) 28.3 06/25/18 Blood Pressure 165/104 06/25/18 Blood Pressure Location Lt brachial Intake Visit Reasons: PVD Arterial Study [facility] 05/10 Aviation Electronic Warfare Operator Required: No Is patient in pain?: Yes (bilateral legs) Allergies No Known Allergies Allergy (Verified 01/22/15 22:18) Medications acetaminophen ER 650 mg tablet,extended release 650 mg PO ONCE 06/25/18 [History Confirmed 06/25/18] PFSH Medical History Tobacco abuse (Acute) Peripheral arterial occlusive disease (Acute) Arthritis (Acute) Cervical cancer (Acute) PVD (peripheral vascular disease) (Acute) Family History Mother Breast cancer Social History Smoking Status: Current every day smoker alcohol intake: never HPI HPI HPI: BRENDA MACEDO, is a 62 F who presents to the office today for surgical consultation regarding peripheral vascular occlusive disease. The patient is referred by Dr. Lora written copy of my surgical consult recommendations will be returned to her. The patient complains of inability to walk half a block. She cannot climb stairs. She fortunately has not had any open ulcerations. This is been steadily progressive over several months. She has not had any open ulcerations that she is noted. She denies myocardial infarction or CVA or diabetes. She claims she has not had any vascular intervention. She is a long-term cigarette smoker at 2 packs per day. She is not aware of what her baseline lipid panel is. On May 10, 2018 she had bilateral extremity noninvasive arterial exam at rest. The right low thigh index is 0.63 with a right PT and DP index of 0.51-0.67 and biphasic right posterior tibial and dorsalis pedis waveforms. The left low thigh index is 0.52 with a left PT and DP ankle-brachial index of 0.460.35 with monophasic left DP and PT Doppler waveforms. The patient's previous history includes that of cervical cancer. After examining her it was noted that she has a very early superficial left lateral malleolus skin injury. She states this is secondary to new shoes ROS General General: No weight change, appetite, fatigue, colon cancer, breast cancer or weakness HEENT HEENT: No difficulty swallowing, eye injury, eye surgery, swollen glands or hoarseness Endo Endocrine: No thyroid disease, diabetes mellitus, thyroid cancer, Hair loss, heat intolerance or cold intolerance Skin Skin: No rash or changing moles Breast Breast: No left breast lump, right breast lump, nipple discharge, breast pain, abnormal mammogram, abnormal US or breast enlargement Musc Musculoskeletal: Yes arthritis; no back problems, rheumatoid arthritis, gout or joint pain Cardio Cardiovascular: No murmur, pacemaker, heart disease, atrial fibrillation, high blood pressure, heart attack, heart stent, palpitations, shortness of breat with exertion or chest pain Psych Psychiatric: No depression, anxiety or hearing voices Resp Respiratory: Yes sleep apnea, Yes cough, No shortness of breath, No COPD, No asthma, No emphysema, No wheezing Gastro Gastrointestinal: No abdominal pain, No nausea or vomiting, No diarrhea, No constipation, No blood in stool, No acid reflux, No hemorrhoids, No ulcers, No gallbladder problem, No black,tarry stools Ciaran Hematologic: No blood thinners, No blood disorders, No bleeding, No anemia, No blood clots Neuro Neurologic: No system reviewed and no additional complaints, except as docu, No as per HPI, No abnormal walking, No abnormal hearing, No abnormal movements, No abnormal speech, No behavioral changes, No burning sensations, No confusion, No seizure-like activity, No unsteadiness, No dizziness, No localized weakness, No frequent falls, No headache(s), No lack of coordination, No loss of vision, No memory loss, No numbness, No other visual disturbances, No radiating pain, No restless legs, No sensory deficit, No fainting, No tingling, No tremor(s), No weakness, No other Exam Const General: cooperative Nutritional Appearance: average body habitus Orientation: alert, awake Other: The patient looks notably older than stated age [facility] Head: normal to inspection Eyes General: appearance normal, both eyes and all related structures Chest Breast Palpation: No nipple discharge Other: Notably increased anterior posterior diameter of the chest with thoracic kyphosis Resp Auscultation: clear to auscultation bilaterally Cardio Rate: regular rate Heart Sounds: no murmurs Other: Bilateral carotids are 3+. Soft bruit on the right. Bilateral brachials are 3+. Bilateral radials 2+. Bilateral femoral and popliteal and DP and PT pulses are not palpable GI Palpation: soft, no hepatosplenomegaly, no pulsatile masses, other (No bruit) Musc Cervical Spine: other (Cervical kyphosis) Skin Other: Bilateral lower extremities demonstrate slight violaceous change. There is dependent rubor. Elevation pallor. There is diminished venous filling. Diminished capillary refill. The left lateral malleolus has a 1 x 0.8 cm area slight skin discoloration consistent with early pressure sore Neuro Other: Slightly diminished light touch sensation bilateral feet Extrem Other: Digital clubbing noted Psych Affect: anxious affect Assessment AND Plan Problems 1. Peripheral arterial occlusive disease I77.9 2. Tobacco abuse Z72.0 Plan 62-year-old female. She likely has aortoiliac occlusion. Findings are well within the range of vascular claudication bordering upon rest pain and critical ischemia. Her current lipid status is not known Chronic excessive tobacco addiction with ongoing use of cigarettes. Minimal right carotid bruit I recommend that we obtain a carotid duplex exam. I recommend that we obtain baseline laboratory included a lipid panel. I am recommending a CTA of the abdomen with runoff I have also asked the patient to initiate a low-dose 81 mg aspirin daily. I have vigorously encouraged the patient to cease her tobacco use. She has had an opportunity to ask and have questions answered. We will investigate whether she would be a candidate for vascular intervention locally. She has had an opportunity to ask and have questions answered. I appreciate the opportunity of assisting with her surgical care. cc: Dr Lora and Jaydon Ashley OPERATOR SPECIALIST COMMUNICATIONS Kevin Michelle M.D., F.A.C.S. Orders Orders: Coding Level of Care Code Comprehensive,moderate Diagnoses Peripheral arterial occlusive disease I77.9 Tobacco abuse Z72.0 Time Spent (min) 50 06/25/18 2410 <Electronically signed by Kevin Michelle MD> Date Kevin Michelle MD Cosigner Signature: Date (if applicable) CC: OPERATOR SPECIALIST COMMUNICATIONS-C Vincent Ashley; Lucia Lora DPM LOWER EXT ARTERIAL Observed: 05/10/2018 Status: F Source: [place] STUDY 5:52 PM [facility] REPOS[facility]ORY [facility] Cardiovascular Services [address] [place] [address] 05/10/18 1748 MR#: [id number] Acct: [id number] Name: BRENDA MACEDO Rep #: [id number] : 1955 62 From: Kevin Michelle MD Attending Dr: Lucia Lora DPM Status: REG CLI Ordering Dr: Date: 05/10/18 Location: [facility] Sex: F C Admitted: Arterial Study - Arterial Study Arterial Study: Bilateral lower extremity noninvasive arterial exam at rest Patient complaint of bilateral lower extremity pain with ambulation Right lower extremity The right low thigh index is abnormal at 0.63. The calf index is 0.6. The right PT and DP ankle-brachial indices at rest are 0.51 and 0.67 respectively. The right posterior tibial and dorsalis pedis Doppler waveforms are biphasic. Volume pulse recordings demonstrate abnormal waveforms throughout the low thigh calf ankle and particularly flattened at the digital level Left lower extremity The left low thigh index is 0.52. The left calf index is 0.44. The left PT and DP ankle-brachial index at rest are 0.46 and 0.35. Doppler waveforms are monophasic in the left posterior tibial and dorsalis pedis. The volume pulse recordings demonstrate abnormally low waveforms throughout the low thigh calf ankle and the particularly flattened at the digital level Impression Abnormal bilateral lower extremity noninvasive arterial exam. Findings suggest iliofemoral inflow disease bilaterally. Findings are well within the range of vascular claudication bilaterally. Flattened digital volume pulse recordings bilaterally suggest multi segmental and or distal small vessel disease of a high-grade level. Kevin Michelle M.D., F.A.C.S. 05/10/18 2555 <Electronically signed by Kevin Michelle MD> Date Kevin Michelle MD CC: OPERATOR SPECIALIST COMMUNICATIONSLayla Ashley; Lucia Geno DPM Date Dictated: 05/10/181747 Date Transcribed: 05/10/181747 Wind Energy Technician: TRU Signed PROGRESS Observed: 04/09/2018 Status: COMPLETED Source: [place] 5:19 PM [facility] HNO ID: [id number] Author: Momo (Blayne) Service: (none) Author Type: Nurse Practitioner Type: Progress Notes Filed: 04/09/2018 7:37 PM Note Text: Subjective HPI HPI Brenda Macedo is a 62 year old female who presents today for CC of bilateral calf pain. This started 1 week ago. Has tried otc medication without relief. Symptoms are worsened by walking/stair. 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 No pain currently/much worse at work and at end of day. .Patient presents with: Musculoskeletal Problem: RT leg pain when standing X 1 week PAST MEDICAL HISTORY Diagnosis Date - Malignant neoplasm of other specified sites of cervix 07/14/2006 PAST SURGICAL HISTORY Procedure Laterality Date - LIGATE FALLOPIAN TUBE ALLERGIES Patient has no known allergies. MEDICATIONS naproxen(NAPROSYN 500 MG TAB) Take one(1) tablet twice daily as needed for pain, with food. gabapentin(NEURONTIN 300 MG CAP) Take one(1) tablet daily in the evening. FAMILY HISTORY Problem Relation Age of Onset - Kidney [Other] [OTHER] Father 2003, ?Diabetes - Hypertension Brother She doesn't know much about him - Hypertension Mother Social History Substance Use Topics - Smoking status: Current Every Day Smoker Packs/day: 1.50 Years: 25.00 Types: Cigarettes Last attempt to quit: 02/02/2007 - Smokeless tobacco: Never Used Comment: quit smoking 6 weeks ago - Alcohol use No Review of Systems Constitutional: Negative for chills and fever. Respiratory: Negative for shortness of breath and wheezing. Cardiovascular: Negative for chest pain. Skin: Negative for itching and rash. Objective Blood pressure 140/84, pulse 100, temperature 37.2 ?C (98.9 ?F), temperature source Tympanic, weight 65.3 kg (144 lb), SpO2 95 %. Physical Exam Constitutional: She is oriented to person, place, and time and well-developed, well-nourished, and in no distress. Non-toxic appearance. She does not have a sickly appearance. No distress. HENT: Head: Normocephalic and atraumatic. Cardiovascular: Normal rate, regular rhythm, S1 normal, S2 normal and normal heart sounds. Pulses: Dorsalis pedis pulses are 2+ on the right side, and 2+ on the left side. Posterior tibial pulses are 2+ on the right side, and 2+ on the left side. Pulmonary/Chest: Effort normal and breath sounds normal. No accessory muscle usage. No respiratory distress. Musculoskeletal: Legs: Neurological: She is alert and oriented to person, place, and time. Gait normal. Skin: She is not diaphoretic. ASSESSMENT/PLAN: 1. Muscular aches - ICD9: 729.1, ICD10: M79.1 -I feel this is overuse and r/t new job that has extensive physical requirements for her age -given stretches/exercises -take medication as prescribed -follow up with primary care if symptoms persist -discussed red flags and reasons for urgent follow up - METHYLPREDNISOLONE 4 MG TABLETS IN A DOSE PACK Prescription instructions reviewed with patient as applicable. Patient advised if symptoms do not improve or if symptoms worsen sooner, to contact the office for further evaluation by their primary care physician. Potential red flag symptoms discussed with the patient. Reviewed appropriate action plan to take if red flag symptoms occur. Patient agreeable to treatment plan. Momo Hardy APRN.BLAYNE AMBROSIOOV Observed: 04/09/2018 Status: COMPLETED Source: [place] 5:15 PM [facility] REPOSITORY Office Visit ([facility]) BRENDA MACEDO ([id number]) 1955 F Date Time Provider Department 04/09/18 5:15 PM MOMO HARDY (BLAYNE) [facility] During your visit today, we recorded the following information about you: Temperature Pulse Blood pressure Weight 98.9 degrees 100/minute 140/84 65.3 kg Momo Hardy APRN.CNP 04/09/2018 7:37 PM Signed Subjective HPI HPI Brenda Macedo is a 62 year old female who presents today for CC of bilateral calf pain. This started 1 week ago. Has tried otc medication without relief. Symptoms are worsened by walking/stair. 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 No pain currently/much worse at work and at end of day. .Patient presents with: Musculoskeletal Problem: RT leg pain when standing X 1 week PAST MEDICAL HISTORY Diagnosis Date - Malignant neoplasm of other specified sites of cervix 07/14/2006 PAST SURGICAL HISTORY Procedure Laterality Date - LIGATE FALLOPIAN TUBE ALLERGIES Patient has no known allergies. MEDICATIONS naproxen(NAPROSYN 500 MG TAB) Take one(1) tablet twice daily as needed for pain, with food. gabapentin(NEURONTIN 300 MG CAP) Take one(1) tablet daily in the evening. FAMILY HISTORY Problem Relation Age of Onset - Kidney [Other] [OTHER] Father 2003, ?Diabetes - Hypertension Brother She doesn't know much about him - Hypertension Mother Social History Substance Use Topics - Smoking status: Current Every Day Smoker Packs/day: 1.50 Years: 25.00 Types: Cigarettes Last attempt to quit: 02/02/2007 - Smokeless tobacco: Never Used Comment: quit smoking 6 weeks ago - Alcohol use No Review of Systems Constitutional: Negative for chills and fever. Respiratory: Negative for shortness of breath and wheezing. Cardiovascular: Negative for chest pain. Skin: Negative for itching and rash. Objective Blood pressure 140/84, pulse 100, temperature 37.2 ?C (98.9 ?F), temperature source Tympanic, weight 65.3 kg (144 lb), SpO2 95 %. Physical Exam Constitutional: She is oriented to person, place, and time and well-developed, well-nourished, and in no distress. Non-toxic appearance. She does not have a sickly appearance. No distress. HENT: Head: Normocephalic and atraumatic. Cardiovascular: Normal rate, regular rhythm, S1 normal, S2 normal and normal heart sounds. Pulses: Dorsalis pedis pulses are 2+ on the right side, and 2+ on the left side. Posterior tibial pulses are 2+ on the right side, and 2+ on the left side. Pulmonary/Chest: Effort normal and breath sounds normal. No accessory muscle usage. No respiratory distress. Musculoskeletal: Legs: Neurological: She is alert and oriented to person, place, and time. Gait normal. Skin: She is not diaphoretic. ASSESSMENT/PLAN: 1. Muscular aches - ICD9: 729.1, ICD10: M79.1 -I feel this is overuse and r/t new job that has extensive physical requirements for her age -given stretches/exercises -take medication as prescribed -follow up with primary care if symptoms persist -discussed red flags and reasons for urgent follow up - METHYLPREDNISOLONE 4 MG TABLETS IN A DOSE PACK Prescription instructions reviewed with patient as applicable. Patient advised if symptoms do not improve or if symptoms worsen sooner, to contact the office for further evaluation by their primary care physician. Potential red flag symptoms discussed with the patient. Reviewed appropriate action plan to take if red flag symptoms occur. Patient agreeable to treatment plan. Momo Hardy APRN.BLAYNE Hardy APRN.BLAYNE 04/09/2018 5:35 PM Signed ASSESSMENT/PLAN: 1. Muscular aches - ICD9: 729.1, ICD10: M79.1 -given stretches/exercises -take medication as prescribed -follow up with primary care if symptoms persist -discussed red flags and reasons for urgent follow up - METHYLPREDNISOLONE 4 MG TABLETS IN A DOSE PACK Referring Provider: SELF [200] Allergies As of Date: 04/09/2018 (No Known Allergies) Date Reviewed: 04/09/2018 Reviewed by: Momo Hardy - Fully Assessed Reason for Visit: Musculoskeletal Problem [69] Cmt: RT leg pain when standing X 1 week Primary Visit Diagnosis:Muscular aches [M79.1] Order(s):methylPREDNISolone (MEDROL, JULIANA,) 4 mg Dose-PackFollow dosing instructions, take with food.Disp: 1 PackageRfl: 0 Prescriptions as of 04/09/2018 Sig: METHYLPREDNISOLONE 4 MG TABLE* Follow dosing instructions, t* NAPROSYN 500 MG TABLET Take one(1) tablet twice cris* Patient not taking: No sig reported NEURONTIN 300 MG CAPSULE Take one(1) tablet daily in t* Patient not taking: No sig reported Problem List As Of Date 04/09/2018 Noted Resolved MALIG NEOPLASM CERVIX NEC [C53.9] INVALID FOR* DIS MAGNESIUM METABOLISM [E83.40] INVALID FOR* Other instructions from your clinician: ASSESSMENT/PLAN: 1. Muscular aches - ICD9: 729.1, ICD10: M79.1 -given stretches/exercises -take medication as prescribed -follow up with primary care if symptoms persist -discussed red flags and reasons for urgent follow up - METHYLPREDNISOLONE 4 MG TABLETS IN A DOSE PACK Prescriptions ordered this encounter Disp Refills Start End METHYLPREDNISOLONE 4 MG TABLETS IN A* 1 Pa* 0 04/09/2018 04/15/2018 Sig: Follow dosing instructions, take with food. Encounter Status:Closed by MOMO HARDY CNP on 04/09/18 ALLERGIES ALLERGIES DATE TYPE / CODE NAME / CODE REACTION SEVERITY SOURCE 10/15/2018 Drug No Known Unknown [facility] Allergy/416 Allergies/[id number] Hospital 236481(SNOM 0388(RXNORM) Repository ED CT) Drug NO KNOWN [facility] Class/01802 ALLERGIES [facility] 1003(SNOMED Repository CT) ENCOUNTERS ENCOUNTERS ADMIT/DISCHARGE ACCOUNT ADMITTING ENCOUNTER LOCATION SOURCE NUMBER CLASS 10/28/2018 [id number] Ambulatory BMSBuilding:B [place].[facility] Repository 10/28/2018 [id number] [facility] ing:[facility] Repository 10/15/2018/10/15/20 [id number] Ambulatory BMSBuilding:B [place] [address] [place].[facility] Repository 10/05/2018/10/05/[id number] ing:[facility] Repository 10/05/2018/10/05/20 [id number] Ambulatory BMSBuilding:B [place] 18 MS.CF.[facility] Repository 09/16/2018/09/16/20 [id number] Ambulatory BMSBuilding:B [place] 18 MS.[facility] Repository 08/31/2018/09/01/20 [id number] Kevin Michelle Ambulatory [address] ing:PCURoom: Repository [id number]: 1 08/31/2018 [id number] Kevin Michelle Ambulatory BMSBuilding:B [place].CF.[facility] Repository 08/31/2018/09/01/20 [id number] Ambulatory BMSBuilding:B [place] [address] [place].[facility] Repository 08/31/2018 [id number] Ambulatory BMSBuilding:W [place] [facility] Repository 08/06/2018/08/06/20 [id number] Ambulatory BMSBuilding:B [place] [address] MS.[facility] Repository 07/21/2018 [id number] Ambulatory [facility] Hospital ing:CT Repository 07/05/2018 [id number] Ambulatory [facility] Hospital ing:[facility] Repository 07/05/2018 [id number] Ambulatory BMSBuilding:[place].CF.[facility] Repository 06/28/2018 [id number] Ambulatory [facility] Hospital ing:LAB Repository 06/25/2018/06/25/20 [id number] Ambulatory BMSBuilding:B [place] [address] MS.[facility] Repository 05/10/2018 [id number] Ambulatory [facility] Hospital ing:[facility] Repository 05/10/2018 [id number] Ambulatory BMSBuilding:B [place] Hospital Repository 04/09/2018/04/13/20 [id number] Ambulatory [address] Repository PAYERS PAYERS ENCOUNTER GUARANTOR PAYER SUBSCRIBER SOURCE 10/28/2018 BRENDA S Primary BRENDA S [place] [id number] [place] Insurance:CARESOURCEP OWENSDOB: [facility] Number: [id number] Hospital [address]Vax: [phone] [id number] Repository [phone] () Date:2018-10-15 [address]ATTN: [place] [address]EM: 10/28/2018 Secondary NOT GIVENUNK [place] Insurance:SELF PAY [facility] Number: Effective Repository Date:2018-10-28 10/28/2018 BRENDA S Primary BRENDA S [place] [id number] [place] Insurance:CARESOURCEP OWENSDOB: [facility] Number: [id number] Hospital [address]Dtg: [phone] [id number] Repository [phone] () Date:2018-10-15P [address]ATTN: [place] [address]IN: 10/28/2018 Secondary NOT GIVENUNK [place] Insurance:SELF PAY [facility] Number: Effective Repository Date:2018-10-15 10/15/2018 BRENDA S Primary BRENDA S [place] [id number] [place] Insurance:CARESOURCEP OWENSDOB: [facility] Number: [id number] Hospital [address]Owi: [phone] [id number] Repository [phone] () Date:2018-10-05P [address]ATTN: [place] [address]XZ: 10/15/2018 Secondary NOT GIVENUNK [place] Insurance:SELF PAY [facility] Number: Effective Repository Date:2018-10-05 10/05/2018 BRENDA S Primary BRENDA S [place] [id number] [place] Insurance:CARESOURCEP OWENSDOB: [facility] Number: [id number] Hospital [address]Uam: [phone] [id number] Repository [phone] () Date:2018-09-20[address]ATTN: [place] [address]TW: 10/05/2018 Secondary NOT GIVENUNK [place] Insurance:SELF PAY [facility] Number: Effective Repository Date:2018-09-20 10/05/2018 BRENDA S Primary BRENDA S [place] [id number] [place] Insurance:CARESOURCEP OWENSDOB: [facility] Number: [id number] Hospital [address]Cta: [phone] [id number] Repository [phone] () Date:2018-09-20 [address]ATTN: [place] [address]IV: 10/05/2018 Secondary NOT GIVENUNK [place] Insurance:SELF PAY [facility] Number: Effective Repository Date:2018-10-05 09/16/2018 BRENDA S Primary BRENDA S [place] [id number] [place] Insurance:CARESOURCEP OWENSDOB: [facility] Number: [id number] Hospital [address]Cid: [phone] [id number] Repository [phone] () Date:2018-09-03P [address]ATTN: [place] [address]LX: 09/16/2018 Secondary NOT GIVENUNK [place] Insurance:SELF PAY [facility] Number: Effective Repository Date:2018-09-03 08/31/2018 BRENDA S Primary BRENDA S [place] [id number] [place] Insurance:CARESOURCEP OWENSDOB: [facility] Number: [id number] Hospital [address]Cwh: [phone] [id number] Repository [phone] () Date:2018-08-06 [address]ATTN: [place] [address]CS: 08/31/2018 Secondary NOT GIVENUNK [place] Insurance:SELF PAY [facility] Number: Effective Repository Date:2018-08-06 08/31/2018 BRENDA S Primary BRENDA S [place] [id number] [place] Insurance:CARESOURCEP OWENSDOB: [facility] Number: [id number] Hospital [address]Iop: [phone] [id number] Repository [phone] () Date:2018-08-06 [address]ATTN: [place] [address]VL: 08/31/2018 Secondary NOT GIVENUNK [place] Insurance:SELF PAY [facility] Number: Effective Repository Date:2018-08-31 08/31/2018 BRENDA S Primary BRENDA S [place] [id number] [place] Insurance:CARESOURCEP OWENSDOB: [facility] Number: [id number] Hospital [address]Ihe: [phone] [id number] Repository [phone] () Date:2018-08-06 [address]ATTN: [place] [address]XN: 08/31/2018 Secondary NOT GIVENUNK [place] Insurance:SELF PAY [facility] Number: Effective Repository Date:2018-08-31 08/31/2018 BRENDA S Primary BRENDA S [place] [id number] [place] Insurance:CARESOURCEP OWENSDOB: [facility] Number: [id number] Hospital [address]Cdg: [phone] [id number] Repository [phone] () Date:2018-08-06 [address]ATTN: [place] [address]GR: 08/31/2018 Secondary NOT GIVENUNK [place] Insurance:SELF PAY [facility] Number: Effective Repository Date:2018-08-31 08/06/2018 BRENDA S Primary BRENDA S [place] [id number] [place] Insurance:CARESOURCEP OWENSDOB: [facility] Number: [id number] Hospital [address]Gpc: [phone] [id number] Repository [phone] () Date:2018-08-03P [address]ATTN: [place] [address]KS: 08/06/2018 Secondary NOT GIVENUNK [place] Insurance:SELF PAY [facility] Number: Effective Repository Date:2018-08-06 07/21/2018 BRENDA S Primary BRENDA S [place] [id number] [place] Insurance:CARESOURCEP OWENSDOB: [facility] Number: [id number] Hospital [address]Wcb: [phone] [id number] Repository [phone] () Date:2018-06-25 [address]ATTN: [place] [address]NO: 07/21/2018 Secondary NOT GIVENUNK [place] Insurance:SELF PAY [facility] Number: Effective Repository Date:2018-06-25 07/05/2018 BRENDA S Primary BRENDA S [place] [id number] [place] Insurance:CARESOURCEP OWENSDOB: [facility] Number: [id number] Hospital [address]Buz: [phone] [id number] Repository [phone] () Date:2018-06-25 [address]ATTN: [place] [address]AJ: 07/05/2018 Secondary NOT GIVENUNK [place] Insurance:SELF PAY [facility] Number: Effective Repository Date:2018-06-25 07/05/2018 BRENDA S Primary BRENDA S [place] [id number] [place] Insurance:CARESOURCEP OWENSDOB: [facility] Number: [id number] Hospital [address]Dur: [phone] [id number] Repository [phone] () Date:2018-06-25 [address]ATTN: [place] [address]ZX: 07/05/2018 Secondary NOT GIVENUNK [place] Insurance:SELF PAY [facility] Number: Effective Repository Date:2018-07-05 06/28/2018 BRENDA S Primary BRENDA S [place] [id number] [place] Insurance:CARESOURCEP OWENSDOB: [facility] Number: [id number] Hospital [address]Ock: [phone] [id number] Repository [phone] () Date:2018-06-28P [address]ATTN: [place] [address]MB: 06/28/2018 Secondary NOT GIVENUNK [place] Insurance:SELF PAY [facility] Number: Effective Repository Date:2018-06-28 06/25/2018 BRENDA S Primary BRENDA S [place] [id number] [place] Insurance:CARESOURCEP OWENSDOB: [facility] Number: [id number] Hospital [address]Wva: [phone]) [id number] Repository [phone] () Date:2018-06-07P [address]ATTN: [place] [address]DL: 06/25/2018 Secondary NOT GIVENUNK [place] Insurance:SELF PAY [facility] Number: Effective Repository Date:2018-06-07 05/10/2018 BRENDA S Primary BRENDA S [place] [id number] [place] Insurance:CARESOURCEP OWENSDOB: [facility] Number: [id number] Hospital [address]Kxp: [phone] [id number] Repository [phone] () Date:2018-05-05 [address]ATTN: [place] [address]CT: 05/10/2018 Secondary NOT GIVENUNK [place] Insurance:SELF PAY [facility] Number: Effective Repository Date:2018-05-05 05/10/2018 BRENDA S Primary BRENDA S [place] [id number] [place] Insurance:CARESOURCEP OWENSDOB: [facility] Number: [id number] Hospital [address]Vqw: [phone] [id number] Repository [phone] () Date:2018-05-05P [address]ATTN: [place] [address]BP: 05/10/2018 Secondary NOT GIVENUNK [place] Insurance:[facility]LF PAY [facility] Number: Effective Repository Date:2018-05-10
== END ==
PROVIDERS: Family Provider Nurse Practitioner Family; PCP Nurse Practitioner Family; Referring Provider Surgery; Visit Provider Surgery
DX: I77.9 Disorder of arteries and arterioles, unspecified (principal)
CPT/HCPCS: 93923

== ENCOUNTER → 2019-04-20 12:39 | Outpatient (CLI) | payer MEDICAID, SELFPAY ==
[2018-10-05 13:37] VITALS: BMI 28.3
--- NOTE | 2019-04-20 12:41 | ART_ITS ---
Reason For Study: Claudication Procedure A bilateral lower extremity continuous wave Doppler with analog waveform analysis,segmental pressures,and ankle brachial indexes with exercise. Left Segmental Pressures Left brachial= 163mmHg. Left posterior tibial artery = 165mmHg. Left dorsalis pedis artery = 142mmHg. Left digit = 136 mmHg. The left dorsalis pedis waveforms are triphasic. The left posterior tibial artery waveforms are triphasic. Right Segmental Pressures Right brachial= 159mmHg. Right posterior tibial artery = 162mmHg. Right dorsalis pedis artery = 183mmHg. Right digit = 167 mmHg. The right dorsalis pedis waveforms are triphasic. The right posterior tibial artery waveforms are triphasic. Indices The right ankle brachial index by the dorsalis pedis is 1.12. The right ankle brachial index by the posterior tibial artery is 0.99. The right post exercise ankle brachial index is 1.17. The right digital-brachial index is 1.02. The left ankle brachial index by the dorsalis pedis is 0.87. The left ankle brachial index by the posterior tibial artery is 1.01. The left post exercise ankle brachial index is 1.17. The left digital-brachial index is 0.83. Interpretation Summary Normal resting and exercise indices bilateral lower extremities. Mildly abnormal left dorsalis pedis suggestive of mild disease involving the tibialis anterior. The left posterior tibial demonstrates normal findings with exercise and at rest. Ordering Physician: Kevin Michelle Referring Physician: Vincent Ashley Performed By: Regina Diaz RVT
== END ==
PROVIDERS: Family Provider Nurse Practitioner Family; PCP Nurse Practitioner Family; Referring Provider Surgery; Visit Provider Surgery
DX: I77.9 Disorder of arteries and arterioles, unspecified (principal)
CPT/HCPCS: 93924

== ENCOUNTER → 2019-07-21 12:40 | Outpatient (CLI) | payer MEDICAID, SELFPAY ==
[2019-05-18 07:06] VITALS: BMI 28.3
--- NOTE | 2019-07-21 12:41 | CDU_ITS ---
Reason For Study: carotid stenosis Rt. Velocities/BP Lt. Velocities/BP Prox CCA 91.7/26.5 cm/sec. Prox CCA 115.2/26.5 cm/sec. Mid CCA 85.2/23.9 cm/sec. Mid CCA 103.4/30.4 cm/sec. Dist CCA 77.3/27.8 cm/sec. Dist CCA 72.1/21.3 cm/sec. Prox ICA 76.0/23.9 cm/sec. Prox ICA 64.3/26.5 cm/sec. Mid ICA 83.8/30.4 cm/sec. Mid ICA 93.0/39.5 cm/sec. Dist ICA 109.9/34.3 cm/sec. Dist ICA 100.8/39.5 cm/sec. Rt. ICA/CCA = 1.3. Lt. ICA/CCA = 1.0. Prox ECA 82.5/17.3 cm/sec. Prox ECA 94.3/26.5 cm/sec. Rt. Vert. 60.4/22.6 cm/sec. Lt. Vert. 73.4/25.5 cm/sec. Right Extracranial There is intimal thickening but no significant atherosclerotic plaque noted in the right common carotid artery. There is homogeneous, smooth atherosclerotic plaque noted in the right internal carotid artery. There is intimal thickening but no significant atherosclerotic plaque noted in the right external carotid artery. Antegrade flow is noted in the right vertebral artery. Left Extracranial There is homogeneous, smooth atherosclerotic plaque noted in the left common carotid artery. There is heterogeneous, irregular atherosclerotic plaque noted in the left internal carotid artery. There is intimal thickening but no significant atherosclerotic plaque noted in the left external carotid artery. Antegrade flow is noted in the left vertebral artery. Procedure Carotid Duplex 30253. The exam was diagnostic. Exam performed in department. Interpretation Summary Intimal thickening of the right common carotid Minimal plague at the proximal right internal carotid with <50% stenosis. <50% stenosis right external carotid Minimal smooth plague of the left common carotid and heterogenous plague of the internal carotid <50% stenosis left internal carotid <50% stenosis left external carotid Patent and antegrade vertebrals bilaterally Previously elevated right distal internal carotid velocity seen 10/28/18 is not identified today which would correlate with previously suspected tortuosity. Ordering Physician: Kevin Michelle Performed By: Gio Leblanc RVT
== END ==
PROVIDERS: Family Provider Nurse Practitioner Family; PCP Nurse Practitioner Family; Referring Provider Surgery; Visit Provider Surgery
DX: I65.29 Occlusion and stenosis of unspecified carotid artery (principal)
CPT/HCPCS: 93880

== ENCOUNTER → 2020-04-20 12:33 | Outpatient (CLI) | payer MEDICAID, SELFPAY ==
[2019-05-18 07:06] VITALS: BMI 28.3
--- NOTE | 2020-04-20 12:34 | ART_ITS ---
Reason For Study: PAD Procedure A bilateral lower extremity continuous wave Doppler with analog waveform analysis,segmental pressures,and ankle brachial indexes without exercise. Left Segmental Pressures Left brachial= 191mmHg. Left posterior tibial artery = 202mmHg. Left dorsalis pedis artery = 180mmHg. Left digit = 161 mmHg. The left dorsalis pedis waveforms are triphasic. The left posterior tibial artery waveforms are triphasic. Right Segmental Pressures Right brachial= 189mmHg. Right posterior tibial artery = 199mmHg. Right dorsalis pedis artery = 212mmHg. Right digit = 169 mmHg. The right dorsalis pedis waveforms are triphasic. The right posterior tibial artery waveforms are triphasic. Indices The right ankle brachial index by the dorsalis pedis is 1.11. The right ankle brachial index by the posterior tibial artery is 1.04. The right digital-brachial index is 0.88. The left ankle brachial index by the dorsalis pedis is 0.94. The left ankle brachial index by the posterior tibial artery is 1.06. The left digital-brachial index is 0.84. Interpretation Summary Normal bilateral lower extremity ankle-brachial indices and triphasic Doppler waveforms at rest. Volume pulse recordings slightly diminished left foot digital level. Possible temperature variation, Clinical correlation indicated Ordering Physician: Kevin Michelle Referring Physician: Aaron Vazquez Performed By: Regina Diaz RVT
== END ==
PROVIDERS: PCP Nurse Practitioner Family; Referring Provider Surgery; Visit Provider Surgery
DX: I77.9 Disorder of arteries and arterioles, unspecified (principal); I79.8 Other disorders of arteries, arterioles and capillaries in diseases classified elsewhere
CPT/HCPCS: 93923

== ENCOUNTER → 2020-05-07 10:07 | Outpatient (CLI) | payer MEDICAID, SELFPAY ==
[2020-05-03 06:56] VITALS: BMI 28.3
[2020-05-07 11:54] LABS: Cholesterol 256 mg/dL (200); High Density Lipoprotein 43 mg/dL; Triglycerides 178 mg/dL; Very Low Density Lipoprotein 36 mg/dL (5-40)
== END ==
PROVIDERS: PCP Nurse Practitioner Family; Referring Provider Surgery; Visit Provider Surgery
DX: I65.29 Occlusion and stenosis of unspecified carotid artery (principal); I77.9 Disorder of arteries and arterioles, unspecified
CPT/HCPCS: 36415; 80061

== ENCOUNTER → 2020-07-24 12:43 | Outpatient (CLI) | payer MEDICAID, SELFPAY ==
[2020-05-03 06:56] VITALS: BMI 28.3
--- NOTE | 2020-07-24 12:43 | CDU_ITS ---
Reason For Study: Carotid stenosis Rt. Velocities/BP Lt. Velocities/BP Prox CCA 74.7/20 cm/sec. Prox CCA 108.4/27.4 cm/sec. Mid CCA 86.5/23.9 cm/sec. Mid CCA 91.3/26.2 cm/sec. Dist CCA 112/33.4 cm/sec. Dist CCA 71.6/28.8 cm/sec. Prox ICA 67.9/23.7 cm/sec. Prox ICA 65.5/26.2 cm/sec. Mid ICA 75.3/28.6 cm/sec. Mid ICA 87.6/32.3 cm/sec. Dist ICA 74/26.2 cm/sec. Dist ICA 101.1/34.8 cm/sec. Rt. ICA/CCA = 0.9. Lt. ICA/CCA = 1.1. Prox ECA 85.1/24.9 cm/sec. Prox ECA 115.8/13.9 cm/sec. Rt. Vert. 45.4/14.6 cm/sec. Lt. Vert. 66.7/22.5 cm/sec. Right Extracranial There is intimal thickening but no significant atherosclerotic plaque noted in the right common carotid artery. There is homogeneous, irregular atherosclerotic plaque noted in the right internal carotid artery. There is intimal thickening but no significant atherosclerotic plaque noted in the right external carotid artery. Antegrade flow is noted in the right vertebral artery. Left Extracranial There is homogeneous, smooth atherosclerotic plaque noted in the left common carotid artery. There is heterogeneous, irregular atherosclerotic plaque noted in the left internal carotid artery. There is intimal thickening but no significant atherosclerotic plaque noted in the left external carotid artery. Antegrade flow is noted in the left vertebral artery. Procedure Carotid Duplex [id number]. Exam performed in department. Interpretation Summary Irregular plaque at the proximal right internal carotid artery with less than 50% stenosis. <50% stenosis right external carotid Minimal irregular plaque at the proximal left internal carotid with less than 50% stenosis. <50% stenosis left external carotid Patent and antegrade vertebrals bilaterally No change from July 21, 2019 Ordering Physician: Kevin Michelle Referring Physician: Vincent Ashley Performed By: Regina Diaz RVT
== END ==
PROVIDERS: PCP Nurse Practitioner Family; Referring Provider Surgery; Visit Provider Surgery
DX: I65.23 Occlusion and stenosis of bilateral carotid arteries (principal)
CPT/HCPCS: 93880

== ENCOUNTER → 2020-08-10 09:05 | Outpatient (CLI) | payer MEDICAID, SELFPAY ==
[2020-05-03 06:56] VITALS: BMI 28.3
[2020-08-10 10:33] LABS: Hematocrit 41.1 % (37-47); Hemoglobin 12.5 g/dL (12.0-15.0); Mean Corp Hgb Conc 30.4 g/dL (32-36); Mean Corpuscular Hgb 26.7 pg (27.0-32.0); Mean Corpuscular Volume 87.8 fL (81-99); Mean Platelet Vol. 10.2 fl (6.2-12.0); Platelet Count 401 K/mm3 (150-450); RBC Distribution Width CV 13.9 % (11.6-14.6); RBC Distribution Width SD 44.6 fl (35.1-43.9); Red Blood Count 4.68 M/mm3 (4.2-5.4); White Blood Count 9.8 K/mm3 (4.4-11.0)
[2020-08-10 11:07] LABS: AST(SGOT) 18 U/L (15-37); Alanine Aminotransfer ALT/SGPT 32 U/L (13-56); Albumin, Serum 3.8 g/dL (3.2-5.0); Alkaline Phosphatase 93 U/L (45-117); Anion Gap 5 (5-15); BUN 10 mg/dL (7-18); BUN/Creat Ratio 12.6 RATIO (10-20); Calcium,Total 8.8 mg/dL (8.5-10.1); Chloride 106 mmol/L (98-107); Cholesterol 143 mg/dL (200); Creatinine, Serum 0.79 mg/dL (0.55-1.02); EST Glomerular Filtration Rate 78 mL/min (>60); Est Glom Filt Rate - Afr Amer 94 mL/min (>60); Globulin 3.8 g/dL (2.2-4.2); Glucose 101 mg/dL (74-106); High Density Lipoprotein 43 mg/dL; Potassium 3.8 mmol/L (3.5-5.1); Protein, Total 7.6 g/dL (6.4-8.2); Sodium Level 141 mmol/L (136-145); Triglycerides 87 mg/dL; Very Low Density Lipoprotein 17 mg/dL (5-40)
== END ==
PROVIDERS: PCP Nurse Practitioner Family; Referring Provider Nurse Practitioner Family; Visit Provider Nurse Practitioner Family
DX: I10 Essential (primary) hypertension (principal); E78.5 Hyperlipidemia, unspecified
CPT/HCPCS: 36415; 80053; 80061; 85027

== ENCOUNTER → 2020-09-03 07:43 | Outpatient (CLI) | payer MEDICAID, SELFPAY ==
[2020-05-03 06:56] VITALS: BMI 28.3
--- NOTE | 2020-09-03 07:45 | RAD_ITS ---
STUDY: X-RAY CHEST REASON FOR EXAM: Female, 65 years old. chronic cough -- smoker x 40 yrs, quit smoking 1 year ago -- still has cough TECHNIQUE: PA and lateral views of the chest. COMPARISON: None. FINDINGS: The lungs are clear and expanded. There is no demonstrated pleural abnormality. Normal size heart. Normal mediastinum and aguila. Normal visualized pulmonary arteries. Normal visualized aortic arch and descending thoracic aorta. Normal visualized thoracic spine. Normal visualized ribs, clavicles, and shoulders. There is no demonstrated abnormality of the visualized soft tissue structures of the upper abdomen. RAD/Chest PA and Lateral IMPRESSION: No acute cardiopulmonary process. Electronically Signed: Rj Gibbons MD ([place]) at 8:07 EDT , Service support ,
--- NOTE | 2020-09-04 10:23 | PFT ---
INTRODUCTION: The patient is a 65-year-old female that presents for pulmonary function studies secondary to a diagnosis of cough. Respiratory therapy reports good patient effort. Bronchodilators were used during testing. INTERPRETATION: Forced expiration spirometry demonstrates the presence of a mild large airways obstructive ventilatory defect. There was no significant response to aerosolized bronchodilators, based upon strict ATS criteria. Spirograms are of good quality and do not plateau indicating slow emptying of the lungs. Body plethysmography was performed and revealed an elevated RV, indicative of underlying air trapping. Diffusing capacity by single breath CO is reduced to 67% of predicted. IMPRESSION: Irreversible mild large airways obstructive ventilatory defect with associated air trapping and symmetric reduction in diffusing capacity.
== END ==
PROVIDERS: PCP Nurse Practitioner Family; Referring Provider Nurse Practitioner Family; Visit Provider Nurse Practitioner Family
DX: R05 Cough (principal); Z87.891 Personal history of nicotine dependence
CPT/HCPCS: 71046; 94060; 94726; 94729

== ENCOUNTER → 2021-01-09 12:53 | Outpatient (CLI) | payer MEDICAID, SELFPAY ==
[2020-05-03 06:56] VITALS: BMI 28.3
--- NOTE | 2021-01-09 12:55 | BI_ITS ---
MAMMOGRAPHY - BILATERAL SCREENING REASON FOR EXAM: Female, 65 years old. Routine annual screening examination. PERTINENT HISTORY: Mother with breast cancer. TECHNIQUE: Digital bilateral breast antoine (3D mammographic acquisition) in the CC and MLO projections. 2-D mediolateral oblique (MLO) and craniocaudad (CC) views of both breasts were obtained. CAD: Full Field Digital Mammography with Computer Added Detection was performed. COMPARISON: None. Baseline examination. FINDINGS: Breast Composition: The breasts are heterogeneously dense, which may obscure small masses. There are no dominant masses or suspicious calcifications. No other significant abnormalities are identified. BI/SCRN MAMM (CAD)W/ANTOINE BILAT IMPRESSION: Negative screening mammogram. Yearly followup mammogram recommended. (A) ASSESSMENT CATEGORY: BIRADS Category 1: Negative. A letter regarding these results will be sent to the patient by the facility within 30 days. Approximately 10% of breast cancers are not detected by mammography. A normal mammogram should not delay biopsy of a clinically suspicious abnormality. [id number] Electronically Signed: Kenan Garvey MD at 14:05 EST , Service support ,
== END ==
PROVIDERS: PCP Nurse Practitioner Family; Referring Provider Nurse Practitioner Family; Visit Provider Nurse Practitioner Family
DX: Z12.31 Encounter for screening mammogram for malignant neoplasm of breast (principal); Z80.3 Family history of malignant neoplasm of breast
CPT/HCPCS: 77063; 77067

== ENCOUNTER → 2021-02-07 10:23 | Outpatient (CLI) | payer MEDICAID, SELFPAY ==
[2020-05-03 06:56] VITALS: BMI 28.3
[2021-02-07 11:09] LABS: Hemoglobin 11.3 g/dL (12.0-15.0); Mean Corp Hgb Conc 31.4 g/dL (32-36); Mean Corpuscular Hgb 27.5 pg (27.0-32.0); Mean Corpuscular Volume 87.6 fL (81-99); Mean Platelet Vol. 9.6 fl (6.2-12.0); Platelet Count 416 K/mm3 (150-450); RBC Distribution Width SD 44.1 fl (35.1-43.9); Red Blood Count 4.11 M/mm3 (4.2-5.4); White Blood Count 9.5 K/mm3 (4.4-11.0)
[2021-02-07 11:46] LABS: AST(SGOT) 15 U/L (15-37); Alanine Aminotransfer ALT/SGPT 29 U/L (13-56); Alkaline Phosphatase 89 U/L (45-117); Anion Gap 5 (5-15); BUN 18 mg/dL (7-18); BUN/Creat Ratio 14.9 RATIO (10-20); Calcium,Total 9.5 mg/dL (8.5-10.1); Chloride 101 mmol/L (98-107); Cholesterol 159 mg/dL (200); Creatinine, Serum 1.21 mg/dL (0.55-1.02); EST Glomerular Filtration Rate 48 mL/min (>60); Est Glom Filt Rate - Afr Amer 58 mL/min (>60); Globulin 3.9 g/dL (2.2-4.2); Glucose 110 mg/dL (74-106); High Density Lipoprotein 42 mg/dL; Potassium 4.4 mmol/L (3.5-5.1); Protein, Total 7.9 g/dL (6.4-8.2); Sodium Level 136 mmol/L (136-145); Triglycerides 148 mg/dL; Very Low Density Lipoprotein 30 mg/dL (5-40)
== END ==
PROVIDERS: PCP Nurse Practitioner Family; Referring Provider Nurse Practitioner Family; Visit Provider Nurse Practitioner Family
DX: I10 Essential (primary) hypertension (principal); E78.5 Hyperlipidemia, unspecified; I73.89 Other specified peripheral vascular diseases
CPT/HCPCS: 36415; 80053; 80061; 85027

== ENCOUNTER → 2023-10-12 | Outpatient (CLI) | payer MEDICARE, SELFPAY ==
[2023-10-12 12:06] LABS: Hematocrit 45.7 % (37-47); Hemoglobin 13.7 g/dL (12.0-15.0); Mean Corpuscular Hgb 27.2 pg (27.0-32.0); Mean Corpuscular Volume 90.9 fL (81-99); Mean Platelet Vol. 10.2 fl (6.2-12.0); Platelet Count 348 K/mm3 (150-450); RBC Distribution Width CV 14.5 % (11.6-14.6); RBC Distribution Width SD 48.4 fl (35.1-43.9); Red Blood Count 5.03 M/mm3 (4.2-5.4); White Blood Count 9.1 K/mm3 (4.4-11.0)
[2023-10-12 12:18] LABS: Hemoglobin A1c 5.4 % (3.8-5.6); PTHIN 149.2 pg/mL (18.4-80.1)
[2023-10-12 12:20] LABS: Vitamin D,25 Hydroxy 10.2 ng/mL
[2023-10-12 12:21] LABS: Microalbumin:Creatinine Ratio 64.8 mg/g CRE (<30 mg/g CRE)
[2023-10-12 12:31] LABS: ALB/GLOB Ratio 0.9 RATIO (0.9-2.4); AST(SGOT) 14 U/L (15-37); Alanine Aminotransfer ALT/SGPT 36 U/L (13-56); Albumin, Serum 3.6 g/dL (3.2-5.0); Alkaline Phosphatase 94 U/L (45-117); Anion Gap 7 (5-15); BUN 14 mg/dL (7-18); BUN/Creat Ratio 20.9 RATIO (10-20); Calcium,Total 8.8 mg/dL (8.5-10.1); Chloride 104 mmol/L (98-107); Cholesterol 232 mg/dL (200); Creatinine, Serum 0.67 mg/dL (0.55-1.02); EST Glomerular Filtration Rate 94 mL/min (>60); Est Glom Filt Rate - Afr Amer 113 mL/min (>60); Globulin 3.9 g/dL (2.2-4.2); Glucose 97 mg/dL (74-106); High Density Lipoprotein 37 mg/dL; Potassium 3.8 mmol/L (3.5-5.1); Protein, Total 7.5 g/dL (6.4-8.2); Sodium Level 139 mmol/L (136-145); Thyroid Stim Hormone (TSH) 2.28 uIU/mL (0.358-3.74); Triglycerides 153 mg/dL; Very Low Density Lipoprotein 31 mg/dL (5-40)
[2023-10-20 16:09] LABS: Renin, Plasma 1.341 ng/mL/hr (0.167-5.380)
== END | disposition home or self-care (01) ==
LOC: LAB 10:48
PROVIDERS: PCP Nurse Practitioner Family; Referring Provider Nurse Practitioner Family; Visit Provider Nurse Practitioner Family
DX: I12.9 Hypertensive chronic kidney disease with stage 1 through stage 4 chronic kidney disease, or unspecified chronic kidney disease (principal); N18.30 Chronic kidney disease, stage 3 unspecified; E78.5 Hyperlipidemia, unspecified; Z13.1 Encounter for screening for diabetes mellitus; Z79.899 Other long term (current) drug therapy
CPT/HCPCS: 36415; 80053; 80061; 82043; 82306; 82570; 83036; 83970; 84244; 84443; 85027

== ENCOUNTER 2023-12-21 13:42 | Outpatient (CLI) | payer MEDICARE, SELFPAY ==
[2023-12-18 11:19] LABS: BUN 13 mg/dL (7-18); Creatinine, Serum 0.68 mg/dL (0.55-1.02); EST Glomerular Filtration Rate 92 mL/min (>60); Est Glom Filt Rate - Afr Amer 111 mL/min (>60)
--- NOTE | 2023-12-21 13:49 | CT_ITS ---
STUDY: CTA OF THE ABDOMINAL AORTA AND BILATERAL LOWER EXTREMITIES REASON FOR EXAM: Female, 68 years old. Gangrene, not elsewhere classified/WITH RUNOFF. History of vascular stent placement. RADIATION DOSAGE (If Supplied By Facility): CTDIvol = ( 6.94 ) mGy, DLP = ( 1188.27 ) mGycm TECHNIQUE: Axial CT angiography multi-detector data acquisition was obtained from the dome of the liver to the level of the ankles following intravenous administration of IV 100mL Isovue-370. Axial images and MIP images were reconstructed from the axial data set. Post-processing of the angiographic images was performed, with multiplanar reformation and 3D reconstruction. Individualized dose optimization techniques were used for this CT. TECHNICAL QUALITY: Good COMPARISON: Comparison is made with prior study dated July 21, 2018. Descriptors of Narrowing: None (0%) Mild (< 50%) Moderate (50-70%) Severe (70-90%) Subtotal/Total Occlusion (90-100%) Non-Evaluable (technically non-diagnostic FINDINGS: The lung bases are unremarkable. Diffuse fatty infiltration of the liver. There is evidence of a 9.4 mm cyst in the medial midportion of the right lobe of the liver. Small hiatal hernia. Abdominal aorta: Scattered Atherosclerotic plaque formation of the abdominal aorta. Celiac and superior mesenteric arteries: Minimal plaque formation at the origin of the celiac artery. Inferior mesenteric artery: No demonstrated narrowing. Right renal artery(arteries): No demonstrated narrowing. Left renal artery(arteries): Minimal nonstenotic plaque at the origin of the left renal artery. Right common iliac artery: Vascular stent is seen. Right external iliac artery: No demonstrated narrowing. Right internal iliac artery: No demonstrated narrowing. Left common iliac artery: A stent is seen in the left common and external iliac arteries. Left external iliac artery: Stent is seen. The stent is not patent. Left internal iliac artery: No demonstrated narrowing. RIGHT LOWER EXTREMITY Right common femoral artery: No demonstrated narrowing. Right profundus femoris: No demonstrated narrowing. Right superficial femoral: No demonstrated narrowing. Right popliteal artery: No demonstrated narrowing. Right tibioperoneal trunk: No demonstrated narrowing. Right anterior tibial artery: No demonstrated narrowing. Right posterior tibial artery: No demonstrated narrowing. Right peroneal artery: No demonstrated narrowing. LEFT LOWER EXTREMITY Left common femoral artery: No demonstrated narrowing. Left profundus femoris: No demonstrated narrowing. Left superficial femoral: No demonstrated narrowing. Left popliteal artery: No demonstrated narrowing. Left tibioperoneal trunk: No demonstrated narrowing. Left anterior tibial artery: No demonstrated narrowing. Left posterior tibial artery: No demonstrated narrowing. Left peroneal artery: No demonstrated narrowing. CT/CTA Abd w/Runoff W/WO Contrast IMPRESSION: Stent in the left common and external iliac arteries which is not patent. Three-vessel runoff in the left lower extremity. Electronically Signed: Kenan Garvey MD at 14:50 EST ,
== END 2023-12-21 23:59 | disposition home or self-care (01) ==
LOC: CT 13:43
PROVIDERS: PCP Nurse Practitioner Family; Referring Provider Surgery Vascular Surgery; Visit Provider Surgery Vascular Surgery
DX: I70.0 Atherosclerosis of aorta (principal); I96 Gangrene, not elsewhere classified
CPT/HCPCS: 36415; 75635; 82565; 84520; Q9967

== ENCOUNTER 2024-01-08 13:34 | Inpatient (IN) | payer MEDICARE, SELFPAY ==
[2024-01-08 13:36] VITALS: BP 127/87; PULSE 118; RESP 20; TEMP 36.4; O2SAT 93
[2024-01-08 13:39] VITALS: BP 127/87; PULSE 118; RESP 20; TEMP 36.4; O2SAT 93
[2024-01-08 14:57] VITALS: BMI 31.4
--- NOTE | 2024-01-08 15:24 | RAD_ITS ---
STUDY: X-RAY - LEFT FOOT CLINICAL: Female, 68 years old. Concern for osteomyelitis TECHNIQUE: 3 view(s) of the foot. COMPARISON: None. FINDINGS: Normal talus, calcaneus, and tarsal bones. Normal visualized subtalar, talonavicular, calcaneocuboid, tarsal and tarsometatarsal articulations. Normal metatarsi. Normal metatarsophalangeal joint of the great toe. Normal tibial and fibular sesamoid bones. Normal interphalangeal joint of the great toe. Normal phalanges of the great toe. Normal second through fifth metatarsophalangeal joints. Normal interphalangeal joints and phalanges of the lesser toes. The soft tissue structures are unremarkable. RAD/Foot min 3 Views IMPRESSION: Normal x-ray examination of the foot. Electronically Signed: Latrell Mac MD at 16:19 EST ,
--- NOTE | 2024-01-08 15:24 | EKG12_ITS ---
Test Reason : PRE OP Blood Pressure : / mmHG Vent. Rate : 099 BPM Atrial Rate : 099 BPM P-R Int : 142 ms QRS Dur : 082 ms QT Int : 362 ms P-R-T Axes : 066 034 071 degrees QTc Int : 464 ms Normal sinus rhythm Normal ECG Confirmed by BATSHEVA SALEH, JOSE J ([id number]), website/blog editor DEWEY BAEZA ([id number]) on 01/11/2024 9:43:20 AM Referred By: Confirmed By:JOSE J HERMAN MD
[2024-01-08] MEDS: Piperacil/Tazobactam 3.375 GM in 0.9% Normal Saline (50mL MB+) 50 ML IV ×2 (15:42→21:12)
[2024-01-08 15:48] LABS: Absolute Lymphocyte Count 1.37 X10^3/uL (0.83-4.51); Absolute Neutrophil Count 5.9 X10^3/uL (2.0-7.7); Basophil# 0.06 X10^3/uL; Basophil% 0.8 % (0-1); Eosinophil# 0.08 X10^3/uL; Hematocrit 43.4 % (37-47); Hemoglobin 13.4 g/dL (12.0-15.0); Lymphocyte # 1.37 X10^3/ul (0.83-4.51); Lymphocyte % 17.2 % (19-41); Mean Corp Hgb Conc 30.9 g/dL (32-36); Mean Corpuscular Hgb 27.3 pg (27.0-32.0); Mean Corpuscular Volume 88.6 fL (81-99); Mean Platelet Vol. 9.9 fl (6.2-12.0); Monocyte# 0.56 X10^3/uL; NRBC Flagged by Analyzer 0 % (0-5); Neutrophil # 5.85 X10^3/uL (2.7-7.7); Neutrophil % 73.6 % (47-70); Platelet Count 327 K/mm3 (150-450); RBC Distribution Width CV 14.8 % (11.6-14.6)
--- NOTE | 2024-01-08 15:48 | EX.ED.DYSGE1 ---
HPI <Yin Pham RN - Last Filed: 01/08/24 16:35> History of Present Illness Chief Complaint: Wound Detail of Chief Complaint: Left fourth toe wound Informant: patient Onset/Context/Timing Onset: Month(s) (2) Context: Gradual Onset Timing: Continuous Quality: Aching Location: Left fourth toe Current Severity: 8/10 Maximum Severity: 8/10 Worsened by: Activity, palpation Relieved by: Rest Narrative Narrative: Patient presents to the ED from [facility] [place]. She reports she was referred by the [facility] for admission and surgery involving amputation of the left fourth toe. Patient reports left fourth toe wound beginning approximately 2 months ago for which she showed her family doctor. Patient denies injury. Denies drainage from site. He monitored for an additional month and then referred to podiatry. Upon seeing podiatry, patient was told the left fourth toe appears gangrenous. Patient reports history of peripheral arterial disease. She reports seeing Dr. Kwong from [facility]. She has past history of stents in bilateral lower extremities. She had a CT scan on 12/21/2023 showing left common and external iliacs with stents that are not patent. She is to have surgery next week with Dr. Kwong for this. This appears to be the cause of the toe wound. Patient denies fevers or chills. She reports 8/10 pain improving with extra strength julita to 5/10. Patient reports last dose 0300 today. Patient reports last p.o. intake at 10 AM today. Patient denies any recent surgeries or travel. Prior similar symptoms: No Recent Illness/Hospitalization: No PFSH <Yin Pham RN - Last Filed: 01/08/24 16:35> PFSH Medical History Arthritis Carotid stenosis, bilateral Cervical cancer Peripheral arterial occlusive disease PVD (peripheral vascular disease) Tobacco abuse Home Medications acetaminophen 650 mg tablet,extended release (Tylenol Arthritis Pain) 650 mg PO Q6H PRN PRN Pain 06/25/18 [History Last Taken Unknown] albuterol sulfate 90 mcg/actuation aerosol inhaler 2 puff inhalation DAILY PRN PRN shortness of breath or wheezing 01/08/24 [History Last Taken Unknown] amlodipine 5 mg tablet 5 mg PO DAILY 01/08/24 [History Last Taken Unknown] aspirin 81 mg tablet,delayed release 81 mg PO DAILY 01/08/24 [History Last Taken Unknown] budesonide-formoterol HFA 160 mcg-4.5 mcg/actuation aerosol inhaler 2 puff inhalation DAILY 01/08/24 [History Last Taken Unknown] cilostazol 50 mg tablet 50 mg PO DAILY 01/08/24 [History Last Taken Unknown] clopidogrel 75 mg tablet 75 mg PO DAILY 01/08/24 [History Last Taken Unknown] rosuvastatin 10 mg tablet 10 mg PO DAILY 01/08/24 [History Last Taken Unknown] Allergy/AdvReac Type Severity Reaction Status Date / Time No Known Allergies Allergy Verified 01/08/24 13:35 Family History Mother Breast cancer Surgical History S/P LEFT ARTERIOGRAM Social History Smoking Status: Former smoker alcohol intake: never ROS <Yin Pham RN - Last Filed: 01/08/24 16:35> ROS ED Constitutional Constitutional ED: Denies chills, fever(s) or sweats Eyes Eyes: Denies blurry vision or change in vision Cardiovascular Cardiovascular: Denies chest pain or palpitations Respiratory/Chest Respiratory/Chest: Denies cough, dyspnea or dyspnea on exertion Gastrointestinal Gastrointestinal: Denies abdominal pain, diarrhea, nausea or vomiting Genitourinary Genitourinary ED: Denies dysuria, hematuria or urinary frequency Musculoskeletal Musculoskeletal: Denies arthralgias or myalgias Integumentary Reports other Details: Left fourth toe wound Neurologic Neurologic: Denies headache(s) or weakness Hematologic/Lymphatic Hematologic/Lymphatic: Reports systems reviewed and no addt'l complaints, except as documented EXAM <Yin Pham RN - Last Filed: 01/08/24 16:35> Physical Exam Const Vital Signs: 01/08/24 13:36 01/08/24 13:39 Temperature 97.6 F L 97.6 F L Temperature Source Temporal Temporal Pulse Rate 118 H 118 H Respiratory Rate 20 H 20 H Blood Pressure 127/87 H 127/87 H Blood Pressure Mean 100 100 Pulse Ox 93 93 Oxygen Delivery Method Room Air Room Air Positive well nourished and well developed General Appearance ED: well developed and NAD HEENT Reports moist mucous membranes Eyes PERRL and EOMs intact bilaterally Neck no lymphadenopathy, supple and no JVD Chest Wall inspection of chest normal and palpation of chest normal Resp normal respiratory effort and clear to auscultation bilaterally Auscultation: Negative for rales, rhonchi or wheezes Cardio regular rate, S1 normal heart sound and S2 normal heart sound GI normal to inspection, nondistended, normoactive bowel sounds and non-tender Palpation: soft Narrative: Patient denies dysuria, hematuria, and urinary frequency Extremity Extremity Narrative: 1+ pitting pedal edema to right lower extremity. General Extremety ED: Yes edema General Extremity: edema Neuro oriented x3 Sensorium / Orientation: alert Motor Exam: strength 5/5 throughout Psych mental status grossly normal Skin Skin Narrative: Blackened area to entire medial and plantar side of left fourth toe. No drainage noted. Weak pedal pulses bilaterally. Wounds: wounds noted No drainage, malodorous and No surrounding erythema <Dr. Josiane Tucker MD - Last Filed: 01/08/24 16:39> Physical Exam Const Vital Signs: 01/08/24 13:36 01/08/24 13:39 Temperature 97.6 F L 97.6 F L Temperature Source Temporal Temporal Pulse Rate 118 H 118 H Respiratory Rate 20 H 20 H Blood Pressure 127/87 H 127/87 H Blood Pressure Mean 100 100 Pulse Ox 93 93 Oxygen Delivery Method Room Air Room Air MDM <Yin Pham RN - Last Filed: 01/08/24 16:35> [facility] Narrative Medical decision making narrative: IV inserted. Labwork obtained to evaluate for leukocytosis, anemia, and electrolyte derangement. Chest x-ray ordered due to possible surgery and history of COPD. Left foot x-ray ordered to evaluate left fourth toe. Blood cultures x 2 ordered due to concern for infection. EKG obtained to evaluate for cardiac arrhythmia/ischemia. Zosyn and vancomycin ordered due to infection. History & Record Review Discussion w/independent historian: Patient Additional record(s) reviewed:: Prior inpatient record Lab Data Labs: Laboratory Results - last 24 hr 01/08/24 15:35 WBC 8.0 RBC 4.90 Hgb 13.4 Hct 43.4 MCV 88.6 MCH 27.3 MCHC 30.9 L RDW Std Deviation 48.0 H RDW Coeff of Alfie 14.8 H Plt Count 327 MPV 9.9 Immature Gran % (Auto) 0.400 Neut % (Auto) 73.6 H Lymph % (Auto) 17.2 L [place] % (Auto) 7.0 Eos % (Auto) 1.0 Baso % (Auto) 0.8 Absolute Neuts (auto) 5.9 Absolute Lymphs (auto) 1.37 Nucleated RBC % 0 Sodium 139 Potassium 3.7 Chloride 106 Carbon Dioxide 30.0 Anion Gap 3 L BUN 11 Creatinine 0.67 Estim Creat Clear Calc 66.90 Est GFR (MDRD) Af Amer 113 Est GFR (MDRD) Non-Af 94 BUN/Creatinine Ratio 16.4 Glucose 84 Calcium 9.4 Radiography Diagnostic Testing: Clinical Impression(s) from Imaging Studies Foot X-Ray 01/08/24 15:24 IMPRESSION: Normal x-ray examination of the foot. Electronically Signed: Latrell Mac MD at 16:19 EST Reading Location ID and State: [address] [place] [address] Tel , Service support , Chest X-Ray 01/08/24 15:50 IMPRESSION: COPD. No acute disease. Electronically Signed: Latrell Mac MD at 16:27 EST Reading Location ID and State: [address] [place] [address] Tel , Service support , Differential Diagnosis Differential Diagnosis: Sepsis Management Discussion w/another healthcare provider: Other (Dr. Shirley, ED provider) Treatment and Re-Evaluation :: Lab work shows white blood cell count normal at 8.0, neutrophils 73.6%, and hemoglobin 13.4. Chemistries normal with sodium 139, potassium 3.7, chloride 106, CO2 30, BUN 11, creatinine 0.67, and glucose 84. CRP and sed rate still pending. Chest x-ray shows COPD and no acute process. Left foot x-ray is normal and negative for osteomyelitis. Upon reevaluation of patient awake and alert in bed. No acute distress. Dr. Shirley spoke with podiatry who indicated surgery would be on Thursday at the earliest. Patient will be admitted to hospitalist service for gangrene of left fourth toe. Plan discussed with patient and visitor at bedside. Patient agreeable. <Dr. Josiane Tucker MD - Last Filed: 01/08/24 16:39> [facility] Lab Data Labs: Laboratory Results - last 24 hr 01/08/24 15:35 WBC 8.0 RBC 4.90 Hgb 13.4 Hct 43.4 MCV 88.6 MCH 27.3 MCHC 30.9 L RDW Std Deviation 48.0 H RDW Coeff of Alfie 14.8 H Plt Count 327 MPV 9.9 Immature Gran % (Auto) 0.400 Neut % (Auto) 73.6 H Lymph % (Auto) 17.2 L [place] % (Auto) 7.0 Eos % (Auto) 1.0 Baso % (Auto) 0.8 Absolute Neuts (auto) 5.9 Absolute Lymphs (auto) 1.37 Nucleated RBC % 0 Sodium 139 Potassium 3.7 Chloride 106 Carbon Dioxide 30.0 Anion Gap 3 L BUN 11 Creatinine 0.67 Estim Creat Clear Calc 66.90 Est GFR (MDRD) Af Amer 113 Est GFR (MDRD) Non-Af 94 BUN/Creatinine Ratio 16.4 Glucose 84 Calcium 9.4 Radiography Diagnostic Testing: Clinical Impression(s) from Imaging Studies Foot X-Ray 01/08/24 15:24 IMPRESSION: Normal x-ray examination of the foot. Electronically Signed: Latrell Mac MD at 16:19 EST Reading Location ID and State: [employer] / [place] Tel , Service support , Chest X-Ray 01/08/24 15:50 IMPRESSION: COPD. No acute disease. Electronically Signed: Latrell Mac MD at 16:27 EST Reading Location ID and State: [employer] / [place] Tel , Service support , Treatment and Re-Evaluation :: Lab work shows white blood cell count normal at 8.0, neutrophils 73.6%, and hemoglobin 13.4. Chemistries normal with sodium 139, potassium 3.7, chloride 106, CO2 30, BUN 11, creatinine 0.67, and glucose 84. CRP and sed rate still pending. Chest x-ray shows COPD and no acute process. Left foot x-ray is normal and negative for osteomyelitis. Upon reevaluation of patient awake and alert in bed. No acute distress. Dr. Shirley spoke with podiatry who indicated surgery would be on Thursday at the earliest. Patient will be admitted to hospitalist service for gangrene of left fourth toe. Plan discussed with patient and visitor at bedside. Patient agreeable. Patient seen and evaluated with DIANNA student. I personally interviewed and examined the patient. I was involved in all aspects of patient's orders, interpretation of results, and treatment. Patient sent from podiatry office secondary to gangrene of the left fourth toe. They reported to patient that she will require admission and surgery. Patient reports left fourth toe discoloration for the last 2 months. She denies fever or chills. Patient sitting upright in bed no acute distress. Head and neck examination unremarkable. Heart is regular rate and rhythm without murmur. Lung sounds are clear. Abdomen is soft and nontender. Active bowel sounds noted. Lower extremity examination reveals dry gangrene of the left fourth toe. No surrounding erythema. No drainage from the wound. Lab work obtained and reveals normal white count. Preoperative EKG obtained and reveals sinus rhythm at 99 bpm with no acute ischemia. Left foot x-rays per my interpretation reveal no obvious bony destruction but poor bone density throughout. Radiology interpretation is reviewed. Portable chest x-ray obtained as part of preop workup and per my interpretation reveals no acute abnormalities. I spoke with Dr. Camacho, on-call for podiatry. He states the patient was seen by Dr. Rose. He asked that patient be admitted to hospitalist service and he will see the patient either tonight or tomorrow with plan for OR potentially on Thursday. Patient has already been given Zosyn and vancomycin. I will speak with the hospitalist. Discharge Plan Dx/Rx/DC Orders Clinical Impression: Gangrene Disposition Disposition: [facility]
--- NOTE | 2024-01-08 15:50 | RAD_ITS ---
STUDY: X-RAY CHEST REASON FOR EXAM: Female, 68 years old. COPD TECHNIQUE: Single frontal view of the chest. COMPARISON: September 03, 2020 chest x-ray FINDINGS: Lungs are hyperaerated. The lungs are clear and expanded. There is no demonstrated pleural abnormality. Normal size heart. Normal mediastinum and aguila. Normal visualized pulmonary arteries. Normal visualized aortic arch and descending thoracic aorta. Normal visualized thoracic spine. Normal visualized ribs, clavicles, and shoulders. There is no demonstrated abnormality of the visualized soft tissue structures of the upper abdomen. RAD/Chest 1 View (Portable) IMPRESSION: COPD. No acute disease. Electronically Signed: Latrell Mac MD at 16:27 EST ,
[2024-01-08 16:07] LABS: Anion Gap 3 (5-15); BUN 11 mg/dL (7-18); BUN/Creat Ratio 16.4 RATIO (10-20); Calcium,Total 9.4 mg/dL (8.5-10.1); Chloride 106 mmol/L (98-107); Creatinine, Serum 0.67 mg/dL (0.55-1.02); EST Glomerular Filtration Rate 94 mL/min (>60); Est Glom Filt Rate - Afr Amer 113 mL/min (>60); Glucose 84 mg/dL (74-106); Potassium 3.7 mmol/L (3.5-5.1); Sodium Level 139 mmol/L (136-145)
[2024-01-08] MEDS: Vancomycin HCl 1,250 MG in 0.9% Normal Saline (250mL Bag) 250 ML 167 MG IV (16:37)
[2024-01-08 16:49] LABS: Erythrocyte Sedimentation Rate 27 mm/hr (0-30)
[2024-01-08 17:02] LABS: CRP 3.94 mg/L (0.0-3.0)
--- NOTE | 2024-01-08 17:20 | PCM.HP.STD ---
HPI - General General Date of Admission: 01/08/24 Date of Service: 01/08/24 Chief Complaint: Fourth left toe pain and blackness HPI Narrative TONY BRADLEY, is a 68-year-old female history of tobacco use, PVD, hypertension, COPD who presented to [facility] ED 01/08/2024 at the urging of her health systems analyst for admission and surgery. She has had a left fourth toe wound for 2 months and was referred to the [facility], she was seen in podiatry recommended admission and surgery involving amputation of left fourth toe. Patient denies any injury or drainage from site. Does have history of peripheral arterial disease with stents and has seen Dr. Kwong from [facility], had CT scan on 12/21 which showed the left common and external iliacs with stents were not patent and she is to have surgery with Dr. Kwong for this potentially next week. Pain has been an 8 out of 10 and has been difficult to manage on an outpatient basis. Front End Architect contacted in ED they recommended hospitalist admit with antibiotics and that podiatry will see in consult for surgery. Patient evaluated at bedside. She reports history as above and denies any other present wounds, no fevers or chills. Had her stents in 2018 and both legs with Dr. Michelle but has since followed with Dr. Kwong in [place]. Has some swelling in lower extremities from not walking around because of her foot, right greater than left but she reports that it is not new. No other focal or acute complaints [facility] Medical History Arthritis Carotid stenosis, bilateral Cervical cancer Peripheral arterial occlusive disease PVD (peripheral vascular disease) Tobacco abuse Home Medications acetaminophen 650 mg tablet,extended release (Tylenol Arthritis Pain) 650 mg PO Q6H PRN Pain 06/25/18 [History Last Taken Unknown] albuterol sulfate 90 mcg/actuation aerosol inhaler 2 puff inhalation Q6H PRN shortness of breath or wheezing 01/08/24 [History Last Taken Unknown] amlodipine 5 mg tablet 5 mg PO DAILY 01/08/24 [History Last Taken Unknown] aspirin 81 mg tablet,delayed release 81 mg PO DAILY 01/08/24 [History Last Taken Unknown] budesonide-formoterol HFA 160 mcg-4.5 mcg/actuation aerosol inhaler 2 puff inhalation BID 01/08/24 [History Last Taken Unknown] cilostazol 50 mg tablet 50 mg PO DAILY 01/08/24 [History Last Taken Unknown] clopidogrel 75 mg tablet 75 mg PO DAILY 01/08/24 [History Last Taken Unknown] rosuvastatin 10 mg tablet 10 mg PO DAILY 01/08/24 [History Last Taken Unknown] Allergy/AdvReac Type Severity Reaction Status Date / Time No Known Allergies Allergy Verified 01/08/24 13:35 Family History Mother Breast cancer Surgical History S/P LEFT ARTERIOGRAM Social History Smoking Status: Former smoker alcohol intake: never ROS ROS Narrative General: Denies fever/chills HENT: Denies headache, denies stuffy nose, denies sore throat EYES: Denies changes in vision Resp: Denies cough, denies shortness of breath Cardiac: Denies chest pain GI: Denies abdominal pain, denies changes in bowel, denies nausea/vomiting : Denies changes in urination Extremity: Denies swelling MSK: Denies weakness Neuro: Denies any numbness/tingling Heme: Denies any bleeding or bruising Skin: Left fourth toe with black eschar and some surrounding erythema Psychiatric: No complaints voiced Vital Signs Vital Signs Vital Signs: 01/08/24 13:36 01/08/24 13:39 Temperature 97.6 F L 97.6 F L Temperature Source Temporal Temporal Pulse Rate 118 H 118 H Respiratory Rate 20 H 20 H Blood Pressure 127/87 H 127/87 H Blood Pressure Mean 100 100 Pulse Ox 93 93 Oxygen Delivery Method Room Air Room Air Weight Weight: 78 kg Body Mass Index (BMI) 31.4 Physical Exam Narrative General: Alert, oriented, no apparent distress HEENT: Atraumatic, normocephalic Eyes: Anicteric, normal conjunctiva, extraocular movements grossly intact Neck: Supple Respiratory: Clear to auscultation bilaterally, normal respiratory effort Cardiovascular: Regular rate and rhythm GI: Soft, nontender, nondistended Extremities: No edema Musculoskeletal: Moving all extremities Neuro: No overt focal neurological deficits Skin: Left fourth toe black medially with surrounding cellulitis and foul-smelling Psych: Cooperative Results Lab / Micro Data 01/08/24 15:35 01/08/24 15:35 Labs: Laboratory Results - last 24 hr 01/08/24 15:35: WBC 8.0, RBC 4.90, Hgb 13.4, Hct 43.4, MCV 88.6, MCH 27.3, MCHC 30.9 L, RDW Std Deviation 48.0 H, RDW Coeff of Alfie 14.8 H, Plt Count 327, MPV 9.9, Immature Gran % (Auto) 0.400, Neut % (Auto) 73.6 H, Lymph % (Auto) 17.2 L, Ripley % (Auto) 7.0, Eos % (Auto) 1.0, Baso % (Auto) 0.8, Absolute Neuts (auto) 5.9, Absolute Lymphs (auto) 1.37, Nucleated RBC % 0, ESR 27, Sodium 139, Potassium 3.7, Chloride 106, Carbon Dioxide 30.0, Anion Gap 3 L, BUN 11, Creatinine 0.67, Estim Creat Clear Calc 66.90, Est GFR (MDRD) Af Amer 113, Est GFR (MDRD) Non-Af 94, BUN/Creatinine Ratio 16.4, Glucose 84, Calcium 9.4, C-React Prot Ext Range 3.94 H Imaging Radiology Impression Foot X-Ray 01/08/24 15:24 IMPRESSION: Normal x-ray examination of the foot. Electronically Signed: Latrell Mac MD at 16:19 EST Reading Location ID and State: [address] [place] [address] Tel , Service support , Chest X-Ray 01/08/24 15:50 IMPRESSION: COPD. No acute disease. Electronically Signed: Latrell Mac MD at 16:27 EST Reading Location ID and State: [facility] / [place] Tel , Service support , Assessment & Plan Assessment/Plan (1) Gangrene: (2) Peripheral arterial occlusive disease: PLAN: Plan #Left fourth toe gangrene -Foot x-ray within normal limits -Evaluated by podiatry who requested IV antibiotics and admission for surgery -Vascular studies to be ordered per podiatry -Will start broad-spectrum antibiotics -IV fluids -Blood culture sent in ED -Podiatry consult -Wound care -Pain control prn and schedule tylenol # Peripheral vascular disease with history of stenting -Follows with Dr. Kwong at [facility] and supposed to have intervention sometime in the near future -Continue aspirin, statin, cilostazol, clopidogrel # COPD -Continue home inhalers -i/s #Hypertension -Continue amlodipine #Tobacco use- former user -Advise continued cessation #DVT ppx: SCDs Liz Murillo MD Time spent in the patient's overall evaluation,decision-making process, review of diagnostic data, adjustment of management, discussion with other providers, nursing nursing and ancillary staff involved in patient's care documentation, 58 Minutes Charges/Coding Visit Charges Inpatient E&M: 75797 Init Hosp L2
[2024-01-08 18:12] VITALS: BP 129/91; PULSE 105; RESP 20; TEMP 36.6; O2SAT 97
--- NOTE | 2024-01-08 18:41 | PCM.RX.CS ---
Consult Antibiotic Management Pharmacy has been consulted to manage selected antibiotic: Vancomycin Type of Intervention Type of Consult: New start Suspected Infection Suspected Infection: Skin/Soft tissue Labs Labs: Sodium 139 mmol/L (136-145) 01/08/24 15:35 Potassium 3.7 mmol/L (3.5-5.1) 01/08/24 15:35 Chloride 106 mmol/L (98-107) 01/08/24 15:35 Carbon Dioxide 30.0 mmol/L (21.0-32.0) 01/08/24 15:35 Anion Gap 3 (5-15) L 01/08/24 15:35 BUN 11 mg/dL (7-18) 01/08/24 15:35 Creatinine 0.67 mg/dL (0.55-1.02) 01/08/24 15:35 Est GFR (MDRD) Af Amer 113 mL/min (>60) 01/08/24 15:35 Est GFR (MDRD) Non-Af 94 mL/min (>60) 01/08/24 15:35 BUN/Creatinine Ratio 16.4 RATIO (10-20) 01/08/24 15:35 Glucose 84 mg/dL (74-106) 01/08/24 15:35 Goal Trough Goal Trough: 15-20 mcg/mL Pharmacy Plan for Drug Dosing Pharmacy Plan for Drug Dosing: NEW IV VANCOMYCIN Consulting Physician: Dr. Murillo Indication: SSTI Goal Trough: 15-20 SrCr: 0.67 CrCl: 67 mL/min Comments: Patient had 1st dose of vancomycin 1250mg IV x1 in ED 01/08 @1637 Vancomycin Dose: 1000mg IV Q12hr to start 01/09/24 @0400 Pending Level: 01/10/24 @0330, prior to 4th total dose of vancomycin per protocol Pharmacy Service will continue to monitor and adjust dosing as required.
[2024-01-08] MEDS: 0.9% Normal Saline (1000mL) 1,000 ML 75 ML IV (18:44)
--- OUTSIDE RECORDS SUMMARY | 2024-01-08 19:11 | XMS RPT_ITS | CCD ---
Author Name Unknown Address [address] [place] [address] Organization [facility] Care Team Providers Care Molder Floor Name Role Phone GAYE Duran CNP, CARLINE Roberts Primary Care [facility] DUNCAN SALEH, JEFF Tidwell Attending Unavailable GAYE WARNER - BLAYNE, CARLINE Roberts Primary Care U navailable GAYE WARNER - BLAYNE, CARLINE Roberts Attending U fartunailable GAYE Duran CNP, CARLINE Roberts Primary Care U navailable GAYE WARNER - BLAYNE, CARLINE Roberts Attending U navailable GAYESANDY WARNER - BLAYNE, CARLINE Roberts Primary Care U navailable Medications Current Medications Medication Drug Class(es) Dates Sig (Normalized) Sig (Original) [id number] 200 actuat albuterol 0.09 mg/actuat metered dose inhaler (1 source) beta2-Adrenergic Agonist Start: 10-13-2023 take 2 puff(s) by inhalation every four hours as needed for wheezing ProAir HFA MDI (90 mcg/inh) inhalation aerosol 2 puff(s), Inhalation, q4h, PRN as needed for wheezing, # 8.5 gram(s), 6 Refill(s), Pharmacy: [facility], 156, cm, 10/09/23 13:33:00 EST, Height, kg, 10/09/23 13:33:00 EST, Dosing Weight Start Date: 10/13/23 Status: Ordered amLODIPine 5 mg oral tablet (1 source) Dihydropyridine Calcium Channel Talib Start: 10-09-2023 Norvasc 5 mg oral tablet Dose : 5 mg = 1 tab(s), Oral, qDay, # 30 tab(s), 5 Refill(s), Pharmacy: [facility], HTN (hypertension), 156, cm, 10/09/23 13:33:00 EST, Height, kg, 10/09/23 13:33:00 EST, Dosing Weight Start Date: 10/09/23 Status: Ordered aspirin 81 mg delayed release oral tablet (1 source) Platelet Aggregation Inhibitor, Nonsteroidal Anti-inflammatory Drug Start: 10-09-2023 take 1 mg by mouth once daily aspirin 81 mg oral delayed release tablet mg = tab(s), Oral, qDay, 0 Refill(s) Start Date: 10/09/23 Status: Ordered cilostazol 50 mg oral tablet (1 source) Phosphodiesterase 3 Inhibitor Start: 10-12-2023 End: 12-11-2023 cilostazol 50 mg oral tablet Dose : 50 mg = 1 tab(s), Oral, BIDAC, # 60 tab(s), 1 Refill(s), Pharmacy: [facility], 156, cm, 10/09/23 13:33:00 EST, Height, kg, 10/09/23 13:33:00 EST, Dosing Weight Start Date: 10/12/23 Stop Date: 12/11/23 Status: Ordered 60 actuat olodaterol 0.0025 mg/actuat / tiotropium 0.0025 mg/actuat inhalation spray (1 source) Anticholinergic, beta2-Adrenergic Agonist Start: 10-09-2023 End: 04-06-2024 take 1 dose by inhalation once daily Stiolto Respimat 60 ACT 2.5 mcg-2.5 mcg/inh inhalation aerosol Dose = 2 puff(s), Inhalation, qDay, # 4 gram(s), 5 Refill(s), Pharmacy: [facility], COPD with asthma, 156, cm, 10/09/23 13:33:00 EST, Height, kg, 10/09/23 13:33:00 EST, Dosing Weight Start Date: 10/09/23 Stop Date: 04/06/24 Status: Ordered Symbicort 160 mcg-4.5 mcg/inh Inhaler (1 source) Start: 10-09-2023 End: 04-06-2024 take 1 dose by inhalation twice daily Symbicort 160 mcg-4.5 mcg/inh Inhaler Dose = 2 puff(s), Inhalation, BID, # 1 EA, 5 Refill(s), Pharmacy: [facility], COPD with asthma, 156, cm, 10/09/23 13:33:00 EST, Height, kg, 10/09/23 13:33:00 EST, Dosing Weight Start Date: 10/09/23 Stop Date: 04/06/24 Status: Ordered Problems Problem Classification Problem Date Documented Da te Episodic/Chronic Chronic kidney disease (1 source) Chronic kidney disease stage 3 02-19-2021 Chronic Chronic obstructive pulmonary disease and bronchiectasis (1 source) Asthma-chronic obstructive pulmonary disease overlap syndrome 10-09-2023 Chronic Results Test Name Value Interpretation Reference Range Facil ity Encounters Encounter Date Encounter Type Care Provider Facility Start: 01-01-2024 ambulatory JEFF SONG MD Facil ity:A Start: 10-28-2023 End: 10-29-2023 ambulatory CARLINE HUIZAR POWDER COAT PAINTER - MILITARY TECHNICIAN Facility:B Start: 10-28-2023 End: 10-28-2023 Patient encounter procedure CARLINE HUIZAR POWDER COAT PAINTER - MILITARY TECHNICIAN [facility] Start: 10-23-2023 ambulatory CARLINE DELGADO POWDER COAT PAINTER - MILITARY TECHNICIAN Facility:B Start: 04-09-2018 End: 04-13-2018 Ambulatory [facility] Immunizations Immunization Date Immunization Notes Care Provider Rafaela alexander 01-26-2021 SARS-CoV-2 mRNA (tozinameran) vaccine CARLINE HUIZAR POWDER COAT PAINTER - MILITARY TECHNICIAN [facility] Payers Date Payer Category Payer Unknown [id number] 2023 Unknown [id number] 1955 Unknown [id number] 1955 Unknown [id number] .. [id number] 1955 Unknown [id number] .. [id number] Social History Date Type Detail Facility Start: 10-09-2023 Tobacco smoking status Ex-smoker (fi nding) [facility] Toni Sex Assigned At Female [facility] Evaluation + Plan note Laboratory Note Date & Type Note Facility Evaluation + Plan note Future Appointments Appointment Date:11/19/2023 01:20:00 PM Scheduled Provider:CARLINE HUIZAR APRN, CNP Location:[facility] Appointment Type:PC OV Follow Up Future Scheduled TestsRenin, Plasma 10/10/23 [facility] Hospital course Narrative Note Date & Type Note Facility Hospital course Narrative No data available for this section [facility] Hospital Discharge instructions Note Date & Type Note Facility Hospital Discharge instructions No data available for this section [facility] Progress note Note Date & Type Note Facility Progress note No data available for this section [facility] Summary Purpose Family History No Family History Records Found No data available for this section No Family History Records Found Advance Directives No Advanced Directives Records FoundNo Advanced Directives Records Found Additional Source Comments INFORMATION SOURCE (unrecogn ized section and content) DATE CREATED AUTHOR AUTHOR'S ORGANIZ ATION 01/03/2024 [facility] ([place]) Patient Care team informatio n (unrecognized section and content) Care Team Personnel Name: CARLINE HUIZAR APRN, CNP Position: P4 Advanced Pocket Cutter Member Role: Primary Care Physician Address: Address: [address] [place] [address]- [place] Care Team Related Persons Name: MELIZA SONG Address: Home [address] [place] [address] FOR RECORDS PERTAINING TO PATIENTS WHO ARE OR HAVE BEEN ENROLLED IN A CHEMICAL DEPENDENCY/SUBSTANCEABUSE PROGRAM, SOME INFORMATION MAY BE OMITTED. This clinical summary was aggregated from multiple sources. Caution should be exercised in using it in the provision of clinical care. This summary normalizes information from multiple sources, and as a consequence, information in this document may materially change the coding, format and clinical context of patient data. In addition, data may be omitted in some cases. CLINICAL DECISIONS SHOULD BE BASED ON THE PRIMARY CLINICAL RECORDS. [facility] [employer] [facility]. provides no warranty or guarantee of the accuracy or completeness of information in this document.
--- OUTSIDE RECORDS SUMMARY | 2024-01-08 19:12 | XMS RPT_ITS | CCD ---
Author Name Unknown Address [address] [place] [address] Organization [facility] Care Team Providers Care Vaccine Specialist Name Role Phone GAYE Duran CNP, [facility] DUNCAN SLAEH, JEFF Tidwell Attending Unavailable GAYE WARNER - BLAYNE, CARLINE Roberts Primary Care U navailable GAYE AWRNER - BLAYNE, CARLINE Roberts Attending U fartunailable GAYE Duran CNP, CARLINE Roberts Primary Care U navailable GAYE WARNER - BLAYNE, CARLINE Roberts Attending U navailable GAYESANDY WARNER - BLAYNE, CARLINE Roberts Primary Care U navailable Medications Current Medications Medication Drug Class(es) Dates Sig (Normalized) Sig (Original) [id number] 200 actuat albuterol 0.09 mg/actuat metered dose inhaler (1 source) beta2-Adrenergic Agonist Start: 10-13-2023 take 2 puff(s) by inhalation every four hours as needed for wheezing ProAir HFA MDI (90 mcg/inh) inhalation aerosol 2 puff(s), Inhalation, q4h, PRN as needed for wheezing, # 8.5 gram(s), 6 Refill(s), Pharmacy: [facility], 156, cm, 10/09/23 13:33:00 EST, Height, kg, 10/09/23 13:33:00 EST, Dosing Weight Start Date: 10/13/23 Status: Ordered amLODIPine 5 mg oral tablet (1 source) Dihydropyridine Calcium Channel Talib Start: 10-09-2023 Norvasc 5 mg oral tablet Dose : 5 mg = 1 tab(s), Oral, qDay, # 30 tab(s), 5 Refill(s), Pharmacy: [facility], HTN (hypertension), 156, cm, 10/09/23 13:33:00 [...] BIDAC, # 60 tab(s), 1 Refill(s), Pharmacy: [facility], 156, cm, 10/09/23 13:33:00 EST, Height, [...] qDay, # 4 gram(s), 5 Refill(s), Pharmacy: [facility], COPD with asthma, 156, cm, 10/09/23 13:33:00 EST, Height, kg, 10/09/23 13:33:00 EST, Dosing Weight Start Date: 10/09/23 Stop Date: 04/06/24 Status: Ordered Symbicort 160 mcg-4.5 mcg/inh Inhaler (1 source) Start: 10-09-2023 End: 04-06-2024 take 1 dose by inhalation twice daily Symbicort 160 mcg-4.5 mcg/inh Inhaler Dose = 2 puff(s), Inhalation, BID, # 1 EA, 5 Refill(s), Pharmacy: [facility], COPD with asthma, 156, cm, 10/09/23 [...] Facil ity:A Start: 10-28-2023 End: 10-29-2023 ambulatory CALRINE HUIZAR TRAY LINE SUPERVISOR - AIR LAUNCH WEAPONS TECHNICIAN Facility:B Start: 10-28-2023 End: 10-28-2023 Patient encounter procedure CARLINE HUIZAR TRAY LINE SUPERVISOR - AIR LAUNCH WEAPONS TECHNICIAN [facility] Start: 10-23-2023 ambulatory CARLINE DELGADO TRAY LINE SUPERVISOR - AIR LAUNCH WEAPONS TECHNICIAN Facility:B Start: 04-09-2018 End: 04-13-2018 Ambulatory [facility] Immunizations Immunization Date Immunization Notes Care Provider Rafaela alexander 01-26-2021 SARS-CoV-2 mRNA (tozinameran) vaccine CARLINE HUIZAR TRAY LINE SUPERVISOR - AIR LAUNCH WEAPONS TECHNICIAN [facility] Physicians [facility] Payers Date Payer Category Payer Unknown [id number] 2023 Unknown [id number] 1955 Unknown [id number] 1955 Unknown [id number] .. [id number] 1955 Unknown [id number] .. [id number] Social History Date Type Detail Facility Start: 10-09-2023 Tobacco smoking status Ex-smoker (fi nding) [facility] Toni Sex Assigned At Female [facility] Evaluation + Plan note Laboratory Note Date & Type Note Facility Evaluation + Plan note Future Appointments Appointment Date:11/19/2023 01:20:00 PM Scheduled Provider:CARLINE HUIZAR APRN, CNP Location:[facility] Appointment Type:PC OV Follow Up Future Scheduled TestsRenin, Plasma 10/10/23 [facility] Hospital course Narrative Note Date & Type Note Facility Hospital course Narrative No data available for this section [facility] Hospital Discharge instructions Note Date & Type Note Facility Hospital Discharge instructions No data available for this section [facility] Progress note Note Date & Type Note Facility Progress note No data available for this section [facility] Summary Purpose Family History No Family History Records Found No data available for this section No Family History Records Found Advance Directives No Advanced Directives Records FoundNo Advanced Directives Records Found Additional Source Comments INFORMATION SOURCE (unrecogn ized section and content) DATE CREATED AUTHOR AUTHOR'S ORGANIZ ATION 01/03/2024 [facility] ([place]) Patient Care team informatio n (unrecognized section and content) Care Team Personnel Name: CARLINE HUIZAR APRN, CNP Position: P4 Advanced Coater Hand Member Role: Primary Care Physician Address: Address: [address] [place] [address]- [place] Care Team Related Persons Name: MELIZA SONG Address: Home [address] [place] [id number] FOR RECORDS PERTAINING TO PATIENTS WHO ARE [...] BE BASED ON THE PRIMARY CLINICAL RECORDS. [facility] [employer] [facility]. provides no warranty or guarantee of the accuracy or completeness of information in this document.
[2024-01-08] MEDS: Albuterol 2.5 MG/3 ML VIAL.NEB. INHALATION (19:52)
[2024-01-08] MEDS: Budesonide Respules 0.5 MG/2 ML AMPUL.NEB. INHALATION (19:52)
[2024-01-08 19:53] VITALS: PULSE 113; RESP 20; O2SAT 92
--- NOTE | 2024-01-08 20:28 | ART_ITS ---
Reason For Study: PVD Procedure A bilateral lower extremity continuous wave Doppler with analog waveform analysis,segmental pressures,and ankle brachial indexes without exercise. Left Segmental Pressures Left thigh = 78mmHg. Left calf = 62mmHg. Left posterior tibial artery = 65mmHg. Left dorsalis pedis artery = 49mmHg. Left digit = 33 mmHg. Right Segmental Pressures Right brachial= 149mmHg. Right calf = 155mmHg. Right posterior tibial artery = 135mmHg. Right dorsalis pedis artery = 146mmHg. Right digit = 126 mmHg. Indices The right ankle brachial index by the posterior tibial artery is 0.91. The right ankle brachial index by the dorsalis pedis is 0.98. The right digital-brachial index is 0.85. The left ankle brachial index by the posterior tibial artery is 0.44. The left ankle brachial index by the dorsalis pedis is 0.33. The left digital-brachial index is 0.22. VL/Lower Ext Art Exam w/o Exercis Interpretation Summary Right ALEIDA 0.98, mild arterial insufficiency. TBI and Doppler/PVR waveforms of t he right leg normal at rest Left ALEIDA 0.44, normal. Doppler/PVR waveforms and segmental pressures reveal aor [id number]-[id number] femoral disease. Ordering Physician: Gareth Camacho Referring Physician: Vincent Ashley Performed By: RAMON HUMPHREY Sandra
[2024-01-08] MEDS: oxyCODONE 5 MG Tablet PO (21:12)
[2024-01-08] MEDS: Atorvastatin Calcium 20 MG Tablet PO (21:12)
[2024-01-08] MEDS: Acetaminophen 500 MG Tablet 1000 MG PO (21:12)
[2024-01-08 21:23] VITALS: BP 126/63; PULSE 98; RESP 16; TEMP 36.5; O2SAT 96
[2024-01-09] VITALS (8 sets, daily range): BP systolic 107–133; BP diastolic 53–81; PULSE 85–104; RESP 16–20; TEMP 36.6–36.7; O2SAT 92–94
[2024-01-09] MEDS: Vancomycin IV 1,000 MG/200 ML BAG 200 MG IV ×2 (03:26→16:21)
[2024-01-09] MEDS: Piperacil/Tazobactam 3.375 GM in 0.9% Normal Saline (50mL MB+) 50 ML IV ×3 (05:58→21:29)
[2024-01-09] MEDS: Acetaminophen 500 MG Tablet 1000 MG PO ×3 (06:01→21:29)
[2024-01-09] MEDS: Cilostazol 50 MG Tablet PO (06:01)
[2024-01-09 06:47] LABS: Absolute Lymphocyte Count 1.49 X10^3/uL (0.83-4.51); Absolute Neutrophil Count 4.6 X10^3/uL (2.0-7.7); Basophil# 0.05 X10^3/uL; Basophil% 0.7 % (0-1); Eosinophil# 0.14 X10^3/uL; Hematocrit 41.4 % (37-47); Hemoglobin 12.7 g/dL (12.0-15.0); Lymphocyte # 1.49 X10^3/ul (0.83-4.51); Lymphocyte % 21.3 % (19-41); Mean Corp Hgb Conc 30.7 g/dL (32-36); Mean Corpuscular Hgb 27.7 pg (27.0-32.0); Mean Corpuscular Volume 90.4 fL (81-99); Monocyte# 0.71 X10^3/uL; Monocyte% 10.2 % (0-10); NRBC Flagged by Analyzer 0 % (0-5); Neutrophil # 4.58 X10^3/uL (2.7-7.7); Neutrophil % 65.7 % (47-70); Platelet Count 315 K/mm3 (150-450); RBC Distribution Width CV 14.9 % (11.6-14.6); RBC Distribution Width SD 49.4 fl (35.1-43.9); Red Blood Count 4.58 M/mm3 (4.2-5.4)
[2024-01-09 06:52] LABS: Prothrombin Time (Protime)PT. 13.5 SECONDS (11.7-14.9)
[2024-01-09] MEDS: Budesonide Respules 0.5 MG/2 ML AMPUL.NEB. INHALATION ×2 (07:16→19:44)
[2024-01-09] MEDS: Albuterol 2.5 MG/3 ML VIAL.NEB. INHALATION ×3 (07:16→19:44)
[2024-01-09 07:34] LABS: Anion Gap 3 (5-15); BUN 9 mg/dL (7-18); BUN/Creat Ratio 13.6 RATIO (10-20); Calcium,Total 9.1 mg/dL (8.5-10.1); Chloride 109 mmol/L (98-107); Cholesterol 150 mg/dL (200); Creatinine, Serum 0.66 mg/dL (0.55-1.02); EST Glomerular Filtration Rate 94 mL/min (>60); Est Glom Filt Rate - Afr Amer 114 mL/min (>60); Glucose 84 mg/dL (74-106); High Density Lipoprotein 38 mg/dL; Sodium Level 141 mmol/L (136-145); Triglycerides 116 mg/dL; Very Low Density Lipoprotein 23 mg/dL (5-40)
[2024-01-09] MEDS: Aspirin E.C. 81 MG Tablet PO (08:29)
[2024-01-09] MEDS: amLODIPine 5 MG Tablet PO (08:30)
[2024-01-09] MEDS: Clopidogrel Bisulfate 75 MG Tablet PO (08:30)
--- NOTE | 2024-01-09 09:21 | CON.PCM_ITS ---
Assessment & Plan Assessment/Plan (1) Osteomyelitis: QUALIFIERS: Osteomyelitis location: foot Laterality: left PLAN: Patient was examined and evaluated. All findings were discussed with the patient. All questions were answered to the patient's satisfaction. Bilateral lower extremity arterial exams are pending. Based on the patient's physical exam there shows evidence of worsening gangrene to the left fourth digit. Will plan for surgical intervention tomorrow, 01/10/2024. Surgery will consist of incision and drainage with incision of bone cortex for left foot. Please clear the patient medically with all recommendat ions. Patient to be n.p.o. midnight tonight. The patient's incision will be left open to monitor demarcation. Will plan for a delayed primary closure and washout either Thursday versus Thursday of next week. Recommend vascular surgery consultation Medicine: On board, medical management, IV antibiotics vancomycin and Zosyn Podiatry will continue to follow the patient is in house. Please reach out to Dr. Camacho with any questions or concerns. Thank for the consultation! (2) Gangrene: (3) Peripheral arterial occlusive disease: HPI Consult Data Date of Consult: 01/09/24 HPI Narrative Reason for Consultation: Gangrene left foot HPI Narrative: TONY BRADLEY, is a 68 F who presents to [facility] after being evaluated and admitted from the emergency department secondary to left foot gangrene, fourth digit. Patient was seen [facility] [place] by Dr. Rose who initially diagnosed the patient with gangrene to the left foot. Based on his recommendation the patient was sent to the emergency department to be evaluated and admitted for worsening gangrene to left foot secondary to peripheral vascular disease. Patient has an extensive history of intervention by an outside vascular surgeon, Dr. Kwong. Patient did see Dr. Kwong a few months ago and was planning on intervention this . However, the patient's gangrene has worsened and has now been admitted to the hospital. Podiatry was consulted for evaluation and possible surgical intervention. The patient has a past medical history of tobacco use, PVD, hypertension, COPD. She denies any trauma. Denies constitutional symptoms. No other pedal complaints at this time. [facility] Medical History Arthritis Carotid stenosis, bilateral Cervical cancer Peripheral arterial occlusive disease PVD (peripheral vascular disease) Tobacco abuse Home Medications acetaminophen 650 mg tablet,extended release (Tylenol Arthritis Pain) 650 mg PO Q6H PRN Pain 06/25/18 [History Last Taken Unknown] albuterol sulfate 90 mcg/actuation aerosol inhaler 2 puff inhalation Q6H PRN shortness of breath or wheezing 01/08/24 [History Last Taken Unknown] amlodipine 5 mg tablet 5 mg PO DAILY 01/08/24 [History Last Taken Unknown] aspirin 81 mg tablet,delayed release 81 mg PO DAILY 01/08/24 [History Last Taken Unknown] budesonide-formoterol HFA 160 mcg-4.5 mcg/actuation aerosol inhaler 2 puff inhalation BID 01/08/24 [History Last Taken Unknown] cilostazol 50 mg tablet 50 mg PO DAILY 01/08/24 [History Last Taken Unknown] clopidogrel 75 mg tablet 75 mg PO DAILY 01/08/24 [History Last Taken Unknown] rosuvastatin 10 mg tablet 10 mg PO DAILY 01/08/24 [History Last Taken Unknown] Allergy/AdvReac Type Severity Reaction Status Date / Time No Known Allergies Allergy Verified 01/08/24 13:35 Family History Mother Breast cancer Surgical History S/P LEFT ARTERIOGRAM Social History Smoking Status: Former smoker alcohol intake: never Physical Exam Narrative Vascular: DP and PT pulses are faintly palpable. CFT is delayed to the left fourth digit. Nonpitting edema appreciated bilateral lower extremity. Skin temperature is warm to warm from proximal ankle to distal digits bilateral. Neurological: Light touch intact. Patient response to painful stimuli. Dermatological: Evidence of dry gangrene appreciated to the left foot fourth digit. Evidence of maceration to the webspaces. Malodor is present. No open lesions or abrasions are appreciated. No probe to bone. Evidence of blanchable erythema appreciated to the left lower extremity. Musculoskeletal: Muscle strength is 5 and 5 in all quadrants bilateral. Mild to moderate palpatory tenderness appreciated to the left fourth digit. No pain with calf pressure. Const alert, oriented x3 and no apparent distress Lab / Micro Data 01/09/24 06:00 01/09/24 06:00 Labs: Laboratory Results - last 24 hr 01/08/24 15:35: WBC 8.0, RBC 4.90, Hgb 13.4, Hct 43.4, MCV 88.6, MCH 27.3, MCHC 30.9 L, RDW Std Deviation 48.0 H, RDW Coeff of Alfie 14.8 H, Plt Count 327, MPV 9.9, Immature Gran % (Auto) 0.400, Neut % (Auto) 73.6 H, Lymph % (Auto) 17.2 L, Dixie % (Auto) 7.0, Eos % (Auto) 1.0, Baso % (Auto) 0.8, Absolute Neuts (auto) 5.9, Absolute Lymphs (auto) 1.37, Nucleated RBC % 0, ESR 27, Sodium 139, Potassium 3.7, Chloride 106, Carbon Dioxide 30.0, Anion Gap 3 L, BUN 11, Creatinine 0.67, Estim Creat Clear Calc 66.90, Est GFR (MDRD) Af Amer 113, Est GFR (MDRD) Non-Af 94, BUN/Creatinine Ratio 16.4, Glucose 84, Calcium 9.4, C- React Prot Ext Range 3.94 H 01/09/24 06:00: WBC 7.0, RBC 4.58, Hgb 12.7, Hct 41.4, MCV 90.4, MCH 27.7, MCHC 30.7 L, RDW Std Deviation 49.4 H, RDW Coeff of Alfie 14.9 H, Plt Count 315, MPV 10.0, Immature Gran % (Auto) 0.100, Neut % (Auto) 65.7, Lymph % (Auto) 21.3, Dixie % (Auto) 10.2 H, Eos % (Auto) 2.0, Baso % (Auto) 0.7, Absolute Neuts (auto) 4.6, Absolute Lymphs (auto) 1.49, Nucleated RBC % 0, PT 13.5, INR 1.0, Sodium 141, Potassium 4.0, Chloride 109 H, Carbon Dioxide 29.0, Anion Gap 3 L, BUN 9, Creatinine 0.66, Estim Creat Clear Calc 66.90, Est GFR (MDRD) Af Amer 114, Est GFR (MDRD) Non-Af 94, BUN/Creatinine Ratio 13.6, Glucose 84, Calcium 9.1, Triglycerides 116, Cholesterol 150, LDL Cholesterol 89, VLDL Cholesterol 23, HDL Cholesterol 38 L Imaging Radiology Impression Foot X-Ray 01/08/24 15:24 IMPRESSION: Normal x-ray examination of the foot. Electronically Signed: Latrell Mac MD at 16:19 EST Reading Location ID and State: [address] [place] [address] Tel , Service support , Chest X-Ray 01/08/24 15:50 IMPRESSION: COPD. No acute disease. Electronically Signed: Latrell Mac MD at 16:27 EST Reading Location ID and State: [facility] / [place] Tel , Service support ,
--- NOTE | 2024-01-09 10:15 | CASEMGMT ---
RN?CM?DISH UP PERSON?CM?to room to meet with patient for initial transition planning/care coordination?assessment.?RN?CM?introduced self and role at [facility].? Pt voices understanding and consents to?assessment?at this time.? Pt resting in bed in no distress at this time.? Cousin, Poppy, and friend, Micaela, @ bedsdie and pt agreeable to them being present during assessment. Pt is A/O at this time and answers all questions appropriately.?? Care providers, pharmacy, and demographics verified/updated at this time. PCP: RUSTAM Ashley Specialists:Dr Adan Kwong-vascular [facility]erred Pharmacy[facility] Insurance: [place] Secure Prescription Benefit:?yes Living Will/HPOA:? Pt does not currently have LW/HCPOA and declines info at this time, stating she wants to think about it. Pt made aware to ask for SW if she decides she wishes to complete AD and also made aware that she can contact SW as an out-pt and make appt in the future if she decides she would like to talk with someone about this or would like to utilize [facility] social work for advanced directive completion.??Pt expresses understanding.? LNOK: 2 sons. CousinPoppy. Living Arrangements: handicapped son lives w/pt and pt helps to take care of him. They live in a 2-story home w/3 steps to enter. [facility]. Pt is independent w/ADL's and IADL's . Transportation:?Pt does not have her license. Friends/family provide transportation. DME: ? Denies using any DME. She does not have a walker and does not wear home O2. Friend, Micaela, has a knee scooter she can borrow, if needed. HHC/SNF: No hx of either. Pt states does not want to go to a SNF. She wishes to discharge home and would be agreeable to HHC if IV atb's and/or wound care is needed. Pt, cousin/Poppy, and friend/Micaela, all state they are willing to do wound care and learn IV atb admin, if needed. Pt wishes to return home and states has no further concerns with going home at time of discharge. ?CM?to follow for any further discharge planning/needs.? Pt voices no further concerns/needs at this time.? Advised pt to ask for?CM?if any further questions/concerns/needs arise.? Voices understanding. PLAN:??Home. Follow for possible HHC for wound care and or IV atb's. Follow for possible walker Faviola JAIMESN?RN?CM
[2024-01-09] MEDS: oxyCODONE 5 MG Tablet PO ×3 (10:26→21:29)
--- NOTE | 2024-01-09 13:02 | PN.HOSP_ITS ---
Reason for Visit Reason for Visit: Diagnoses Disorder of arteries and arterioles, unspecified (01/08/24) Gangrene, not elsewhere classified (01/08/24) Osteomyelitis, unspecified (01/08/24) Subjective Subjective Patient seen at bedside, multiple family numbers present. Patient reports 6-8 out of 10 left toe pain this morning, similar to yesterday. States the pain medication has been moderately helpful in controlling the pain. Denies any othe r acute concerns this morning. Objective Data Objective Data Vital Signs: Vital Signs Temp Pulse Resp BP Pulse Ox O2 Del Method O2 Flow Rate 98.0 F 89 18 127/62 H 92 Nasal Cannula 2 01/09/24 08:13 01/09/24 08:13 01/09/24 08:13 01/09/24 08:13 01/09/24 08:13 01/09/24 08:23 01/09/24 08:23 Oxygen Flow Rate (L/min) 2 Oxygen Delivery Method Nasal Cannula Weight: 78 kg Body Mass Index (BMI) 31.4 Intake & Output: Intake and Output for Last 24 Hours 01/07/24 01/08/24 01/09/24 23:59 23:59 23:59 Intake Total 325 / 325 925 / 925 Balance 325 / 325 925 / 925 Lab / Micro Data 01/09/24 06:00 01/09/24 06:00 Labs: Laboratory Results - last 24 hr 01/08/24 15:35: WBC 8.0, RBC 4.90, Hgb 13.4, Hct 43.4, MCV 88.6, MCH 27.3, MCHC 30.9 L, RDW Std Deviation 48.0 H, RDW Coeff of Alfie 14.8 H, Plt Count 327, MPV 9.9, Immature Gran % (Auto) 0.400, Neut % (Auto) 73.6 H, Lymph % (Auto) 17.2 L, Wheeler % (Auto) 7.0, Eos % (Auto) 1.0, Baso % (Auto) 0.8, Absolute Neuts (auto) 5.9, Absolute Lymphs (auto) 1.37, Nucleated RBC % 0, ESR 27, Sodium 139, Potassium 3.7, Chloride 106, Carbon Dioxide 30.0, Anion Gap 3 L, BUN 11, Creatinine 0.67, Estim Creat Clear Calc 66.90, Est GFR (MDRD) Af Amer 113, Est GFR (MDRD) Non-Af 94, BUN/Creatinine Ratio 16.4, Glucose 84, Calcium 9.4, C- React Prot Ext Range 3.94 H 01/09/24 06:00: WBC 7.0, RBC 4.58, Hgb 12.7, Hct 41.4, MCV 90.4, MCH 27.7, MCHC 30.7 L, RDW Std Deviation 49.4 H, RDW Coeff of Alfie 14.9 H, Plt Count 315, MPV 10.0, Immature Gran % (Auto) 0.100, Neut % (Auto) 65.7, Lymph % (Auto) 21.3, Wheeler % (Auto) 10.2 H, Eos % (Auto) 2.0, Baso % (Auto) 0.7, Absolute Neuts (auto) 4.6, Absolute Lymphs (auto) 1.49, Nucleated RBC % 0, PT 13.5, INR 1.0, Sodium 141, Potassium 4.0, Chloride 109 H, Carbon Dioxide 29.0, Anion Gap 3 L, BUN 9, Creatinine 0.66, Estim Creat Clear Calc 66.90, Est GFR (MDRD) Af Amer 114, Est GFR (MDRD) Non-Af 94, BUN/Creatinine Ratio 13.6, Glucose 84, Calcium 9.1, Triglycerides 116, Cholesterol 150, LDL Cholesterol 89, VLDL Cholesterol 23, HDL Cholesterol 38 L Radiography Diagnostic Testing: Radiology Impression Foot X-Ray 01/08/24 15:24 IMPRESSION: Normal x-ray examination of the foot. Electronically Signed: Latrell Mac MD at 16:19 EST Reading Location ID and State: [address] [place] [address] Tel , Service support , Chest X-Ray 01/08/24 15:50 IMPRESSION: COPD. No acute disease. Electronically Signed: Latrell Mac MD at 16:27 EST Reading [email or web address] Tel , Service support , Physical Exam Const alert, oriented x3 and no apparent distress Constitutional Narrative: Obese. General Appearance: cooperative and comfortable HEENT normocephalic, head/scalp atraumatic, hearing grossly normal bilaterally and nasal mucous membranes and turbinates normal Eyes PERRL, EOMs intact bilaterally and conjunctivae normal Neck full ROM, no lymphadenopathy and supple Lymph Lymphatic: no lymphadenopathy noted Chest inspection of chest normal Resp normal respiratory effort and no use of accessory muscles Resp Narrative: Mildly decreased breath sounds throughout bilaterally, no wheezing or crackles noted. Cardio regular rate, regular rhythm, no murmurs and peripheral pulses 2+ throughout GI normal to inspection, nondistended, normoactive bowel sounds, soft to palpation, non-tender and non-distended Back/Spine normal ROM Extremity full ROM and no pedal edema Extremity Narrative: Left toe wound noted. Neuro no focal motor deficits and no sensory deficits noted Speech: speech normal Psych mental status grossly normal Assessment & Plan Assessment/Plan (1) Gangrene: PLAN: Plan Patient is a 68-year-old female who presented [facility] ED on 01/08/2024 with worsening left toe wound. 1. Left fourth toe gangrene ? Podiatry following. Foot x-ray on admit within normal limits. Vascular studies ordered on 01/09, have not been completed yet. Vascular surgery consulted per podiatry recommendations. Continue broad-spectrum antibiotics. Planning for incision and drainage tomorrow with delayed primary closure and washout on either Thursday or Thursday of next week. N.p.o. at midnight. Preoperative evaluation as noted below. Wound care following. Continue scheduled Tylenol with as needed oxycodone and morphine for pain management. 2. Preop evaluation ? NSQIP score: Patient at below average risk of complications or serious complications given low risk procedure and risk factors of age, female, mild systemic disease and elevated BMI. ? Labs/imaging: Hemoglobin normal, kidney function normal, no other notable lab abnormalities. Recommend repeat CBC and BMP postoperatively. ? EKG/echo: No significant cardiac history, low risk procedure, hemodynamically stable on room air and in normal sinus rhythm, no need for EKG or echo prior to procedure. ? Medications: Holding home Plavix on day of procedure, will defer to podiatry on timing of restarting this medication. Continue home aspirin. Continue all other home medications as normal. ? Previous procedural complications: None. ? Recommendation: Patient is medically optimized for procedure. 3. Peripheral vascular disease with history of stenting ? Follows with Dr. Kwong at [place], has follow-up with him for some time. Was apparently supposed to have a procedure with him sometime soon. Vascular surgery here consulted as noted above. Continue home aspirin, statin, cilostazol. Holding clopidogrel for now as noted above. 4. COPD ? Continue home inhalers. Incentive spirometry at bedside. 5. Hypertension ? Continue home amlodipine. 6. Tobacco use ? Former user. Advised continued cessation. DVT prophylaxis: SCDs CODE STATUS: Full code, verified Expected disposition: TBD Total clinical time spent by myself addressing the patient's medical issues, reviewing all the data, and collaborating with patient's care team: 35 minutes. Charges/Coding Visit Charges Inpatient E&M: 37640 Subs Hosp L2
[2024-01-09] MEDS: Atorvastatin Calcium 20 MG Tablet PO (21:29)
[2024-01-10] VITALS (14 sets, daily range): BP systolic 116–153; BP diastolic 62–83; PULSE 78–105; RESP 16–20; TEMP 36.6–37.2; O2SAT 93–96
[2024-01-10 03:53] LABS: Vancomycin, Trough Level 17.7 ug/mL (5.0-15.0)
--- NOTE | 2024-01-10 04:01 | PCM.RX.CS ---
Consult Antibiotic Management Pharmacy has been consulted to manage selected antibiotic: Vancomycin Type of Intervention Type of Consult: Follow-up Labs Labs: Sodium 141 mmol/L (136-145) 01/09/24 06:00 Potassium 4.0 mmol/L (3.5-5.1) 01/09/24 06:00 Chloride 109 mmol/L (98-107) H 01/09/24 06:00 Carbon Dioxide 29.0 mmol/L (21.0-32.0) 01/09/24 06:00 Anion Gap 3 (5-15) L 01/09/24 06:00 BUN 9 mg/dL (7-18) 01/09/24 06:00 Creatinine 0.66 mg/dL (0.55-1.02) 01/09/24 06:00 Est GFR (MDRD) Af Amer 114 mL/min (>60) 01/09/24 06:00 Est GFR (MDRD) Non-Af 94 mL/min (>60) 01/09/24 06:00 BUN/Creatinine Ratio 13.6 RATIO (10-20) 01/09/24 06:00 Glucose 84 mg/dL (74-106) 01/09/24 06:00 Vancomycin Trough 17.7 ug/mL (5.0-15.0) H 01/10/24 03:20 Goal Trough Goal Trough: 15-20 mcg/mL Pharmacy Plan for Drug Dosing Pharmacy Plan for Drug Dosing: Pharmacy Service will continue to monitor and adjust dosing as required. TROUGH 17.7 @ 11.5 HOURS. NO CHANGES, FOLLOW UP TROUGH IN 2 DAYS Follow-Up Labs Follow-Up Labs: Trough: Vancomycin Date/Time Labs Ordered Labs to be done on [date and time ordered]: 01/12 @ 7137
[2024-01-10] MEDS: Vancomycin IV 1,000 MG/200 ML BAG 200 MG IV ×2 (04:02→17:30)
[2024-01-10] MEDS: Piperacil/Tazobactam 3.375 GM in 0.9% Normal Saline (50mL MB+) 50 ML IV ×3 (05:58→21:29)
--- NOTE | 2024-01-10 06:45 | RAD_ITS ---
STUDY: X-RAY LEFT FOOT, FOURTH TOE REASON FOR EXAM: Female, 68 years old. AMPUTATION OF 4 TOE TECHNIQUE: 1 view(s) of the toe were obtained. COMPARISON: None. FINDINGS: Less than 1 seconds of fluoroscopy of the toe was utilized operating room during amputation and a single image is cemented for interpretation. . RAD/Toe(s) Min 2 Views IMPRESSION: Fluoroscopy during amputation of the fourth digit. Electronically Signed: Vincent Patel MD at 13:41 EST ,
[2024-01-10] MEDS: Albuterol 2.5 MG/3 ML VIAL.NEB. INHALATION ×2 (08:37→19:08)
[2024-01-10] MEDS: Budesonide Respules 0.5 MG/2 ML AMPUL.NEB. INHALATION ×2 (08:37→19:08)
[2024-01-10] MEDS: Bupivacaine Mpf 0.5% 30 ML VIAL (09:05)
--- NOTE | 2024-01-10 09:15 | PCM.OPRPT ---
Problems Associated Problem List Diagnoses (1) Gangrene: (2) Osteomyelitis: (3) Peripheral arterial occlusive disease: Report of Operation Date of Procedure: 01/10/24 Pre-Operative Diagnosis: 1. Dry gangrene, fourth digit, left foot 2. Osteomyelitis, fourth digit, left foot 3. Peripheral arterial disease, left lower extremity Post-Operative Diagnosis: 1. Dry gangrene, fourth digit, left foot 2. Osteomyelitis, fourth digit, left foot 3. Peripheral arterial disease, left lower extremity Surgery/Procedure Performed:: 1. Incision and drainage, left foot 2. Incision of bone cortex, left foot Description of Surgical Findings:: 1. Evidence of necrotic bone to the fourth digit left foot with malodor and scant purulent drainage. 2. Fourth metatarsal head showed good integrity to the cortex when palpated with [place]. Surgeon: Gareth Camacho infant toddler lead teacher: None Type of Anesthesia: Local and MAC Anesthesiologist: Nigel Lovett Special Medications: Per anesthesia Specimen's removed: 1. Soft tissue cultures, left foot 2. Incision of bone cortex, fourth digit sent to microbiology for culture and sensitivity 3. Incision bone cortex, fourth digit sent to pathology 4. Clean margin, fourth digit sent to pathology Drains: None Estimated Blood Loss (mL): 5 mL Fluids Replaced: Per anesthesia Description of Procedure: Indications For Operation: Ms. Macedo is a 68-year-old female who was admitted to [facility] for dry gangrene of the fourth digit of the left foot secondary to peripheral arterial disease. Patient has had multiple interventions to left lower extremity and seen by an outside provider for vascular intervention. Patient was seen in private office and sent to the hospital for follow-up and evaluation for worsening gangrene to the fourth digit of left foot. Podiatry was ultimately consulted for surgical planning. All risk and benefits were discussed with the patient in great detail. Patient understands why she needs to move forward with surgical intervention to help prevent worsening to the left foot secondary to infection. Due to nature of the patient's dry gangrene that has now turned to wet gangrene fourth digit left foot, I sent the necessary at this time to take the patient the operating room to for perform the above procedure to help eradicate the patient's infection and help decrease her constant pain.. The nature of the problem, anticipated procedures, postop recovery/convalences and risk/complications include but not limited to infection, wound healing complications, digital amputation, hypertrophic scarring, numbness, tingling, chronic pain, CRPS, over and under correction, recurrence of deformity, DVT and or PE and the need for further surgery have been discussed in great detail with the patient. All questions have been answered to the patient's satisfaction. There are no guarantees given as to the outcome of the procedure. Description of Procedure: Under mild sedation, the patient was brought into the operating room and placed on the operating table in supine position. Once the patient was under general anesthesia with laryngeal mask airway, the left lower extremity was blocked using approximately 26 cc 0.5% Marcaine plain. No tourniquet was used for this case. Next, the left lower extremity was prepped and draped in normal aseptic manner. Next, a timeout was then undertaken verifying the correct patient, extremity, visibility of preoperative markings, availability of the equipment. Procedure #1, incision and drainage, left foot Next, attention was directed to the left lower extremity to the level of the fourth digit left foot. There showed evidence of wet gangrene to the fourth digit. Using a sterile skin marker a racquet type incision was marked out at the level of the fourth metatarsal phalangeal joint circumscribing the fourth digit. Next, using a #15 blade and pickup a full-thickness incision down to bone was carried out along the incision. There showed evidence of scant purulent drainage and malodor. Soft tissue cultures were taken and passed the back table to be sent off for microbiology culture and sensitivity. Procedure #2, incision bone cortex, left foot Next, attention was directed to the fourth metatarsophalangeal joint. Using a new #15 blade and pickup the fourth metatarsal phalangeal joint was identified and incision of bone cortex was performed removing the fourth digit which was ultimately into for have to be sent to microbiology for culture and sensitivity and the other half to be sent to pathology. Next, using a bone cutter, a clean margin was taken from the base of the proximal phalanx fourth digit to be sent to pathology. The left foot incision was flushed with copious elba of warm saline. The left lower extremities were cleaned and patted dry. There showed evidence of fair bleeding after the procedure. The incision was packed with quarter inch iodoform packing, Betadine soaked gauze, 4 x 4's, Jessicax and a light single Cobb compression bandage was applied to left lower extremity. The patient tolerated the procedure and anesthesia well and apparent satisfactory condition and was transported to the PACU for further monitoring prior to discharge back to floor. Vital signs stable and vascular status intact to all digits bilateral. Post Operative Plan: Weightbearing: Partial weightbearing to left heel with surgical shoe. Full weightbearing to right lower extremity. Antibiotics: Scheduled IV antibiotics vancomycin and Zosyn DVT Prophylaxis: Per medicine Morse: None Dressing: Quarter inch iodoform packing, Betadine soaked gauze, 4 x 4's, Kerlix, light single layer Cobb compression bandage X-Rays: Post-operative films taken on the operating room. Pain Medication: Per medicine Follow-up: We will plan for a staged procedure this Thursday for delayed primary closure to the left foot. Grafts/Implants Used: None Complications None Admit VTE Documentation VTE Present on Admission: No VTE Mechan Device Prophylaxis: SCD's VTE Pharm Prophylaxis ordered?: Yes
--- NOTE | 2024-01-10 12:05 | PCM.PN.HOSP ---
Reason for Visit Reason for Visit: Diagnoses Disorder of arteries and arterioles, unspecified (01/08/24) Gangrene, not elsewhere classified (01/08/24) Osteomyelitis, unspecified (01/08/24) Subjective Subjective Patient seen early this afternoon at bedside after returning from her procedure this morning, 2 family members at bedside. Patient was laying comfortably in bed, appeared mildly somnolent due to lingering effects of anesthesia but otherwise was feeling well. Was satting well on 3 to 4 L nasal cannula, no increased work of breathing noted. Her left foot was wrapped with Roland wrap from the mid leg down to just above the toe, with a separate wrap over the fourth toe. Patient denied any pain or discomfort of the toe. She and nursing staff did note that she tried to get up out of bed to use bedside commode but had some leakage from the foot wound, so she has been in bed since then. Has had no further leakage from the wound. Otherwise denies any acute concerns at this time. Objective Data Objective Data Vital Signs: Vital Signs Temp Pulse Resp BP Pulse Ox O2 Del Method O2 Flow Rate 98.9 F 99 20 H 153/83 H 95 Nasal Cannula 4 01/10/24 10:58 01/10/24 10:58 01/10/24 10:58 01/10/24 10:58 01/10/24 10:58 01/10/24 10:58 01/10/24 10:58 Oxygen Flow Rate (L/min) 4 Oxygen Delivery Method Nasal Cannula Weight: 78 kg Body Mass Index (BMI) 31.4 Intake & Output: Intake and Output for Last 24 Hours 01/08/24 01/09/24 01/10/24 23:59 23:59 23:59 Intake Total 325 / 325 1974 300 / 300 Balance 325 / 325 1974 300 / 300 Lab / Micro Data 01/09/24 06:00 01/09/24 06:00 Labs: Laboratory Results - last 24 hr 01/10/24 03:20: Vancomycin Trough 17.7 H Micro: Microbiology 01/08/24 15:35 Blood Culture (Wb) - Anticubital Left Blood Culture - Preliminary No growth in 48 hours. Physical Exam Const alert, oriented x3 and no apparent distress Constitutional Narrative: Elderly female, obese, sitting up comfortably in bed, mildly somnolent but otherwise conversing normally and in no acute distress. General Appearance: cooperative and comfortable HEENT normocephalic, head/scalp atraumatic, hearing grossly normal bilaterally and nasal mucous membranes and turbinates normal Eyes PERRL, EOMs intact bilaterally and conjunctivae normal Neck full ROM, no lymphadenopathy and supple Lymph Lymphatic: no lymphadenopathy noted Chest inspection of chest normal Resp normal respiratory effort and no use of accessory muscles Resp Narrative: Breathing comfortably on 3 to 4 L nasal cannula. Mildly decreased breath sounds bilaterally throughout, similar to previous. No wheezing or crackles noted. Cardio regular rate, regular rhythm, no murmurs and peripheral pulses 2+ throughout GI normal to inspection, nondistended, normoactive bowel sounds, soft to palpation, non-tender and non-distended Back/Spine normal ROM Extremity no pedal edema Extremity Narrative: Roland wrap from left mid calf down to base of toes, with separate wrap over the left fourth toe. Neuro no focal motor deficits and no sensory deficits noted Speech: speech normal Psych mental status grossly normal Assessment & Plan Assessment/Plan (1) Gangrene: PLAN: Plan Patient is a 68-year-old female who presented [facility] ED on 01/08/2024 with worsening left toe wound. 1. Left fourth toe gangrene Left fourth toe black and gangrenous appearing on admission, per patient had been this way for 1 to 2 weeks. Foot x-ray on admit within normal limits. Hemodynamically stable, afebrile since admission. No leukocytosis. ? Podiatry following. S/p procedure with podiatry on 01/10, evidence of necrotic bone to fourth digit with malodor and scant purulent drainage noted; incision and drainage performed with soft tissue cultures and bone cultures obtained. Continue broad-spectrum antibiotics for now, follow-up cultures. Vascular surgery consulted per podiatry recs. Vascular studies ordered on 01/09, will likely be completed tomorrow. Wound care following. Continue scheduled Tylenol with as needed oxycodone and morphine for pain management. Per podiatry, planning for second procedure for delayed closure and washout on either Thursday or Thursday of this coming week. 2. Peripheral vascular disease with history of stenting ? Follows with Dr. Kwong at [place], has follow-up with him for some time. Was apparently supposed to have a procedure with him sometime soon. Vascular surgery here consulted as noted above. Continue home aspirin, statin, cilostazol. Last dose of Plavix on 01/09, holding for now, will restart at discretion of podiatry and vascular surgery. 3. COPD ? Continue home inhalers. Incentive spirometry at bedside. 4. Hypertension ? Continue home amlodipine. 5. Tobacco use ? Former user. Advised continued cessation. DVT prophylaxis: SCDs CODE STATUS: Full code, verified Expected disposition: TBD Total clinical time spent by myself addressing the patient's medical issues, reviewing all the data, and collaborating with patient's care team: 35 minutes. Charges/Coding Visit Charges Inpatient E&M: 75077 Subs Hosp L2
[2024-01-10] MEDS: Acetaminophen 500 MG Tablet 1000 MG PO ×2 (13:25→21:29)
[2024-01-10] MEDS: amLODIPine 5 MG Tablet PO (13:25)
[2024-01-10] MEDS: Atorvastatin Calcium 20 MG Tablet PO (21:29)
[2024-01-11] VITALS (9 sets, daily range): BP systolic 118–139; BP diastolic 66–90; PULSE 73–108; RESP 18; TEMP 36.6–37.4; O2SAT 93–98
[2024-01-11] MEDS: oxyCODONE 5 MG Tablet PO (02:14)
[2024-01-11] MEDS: Vancomycin IV 1,000 MG/200 ML BAG 200 MG IV ×2 (04:48→17:30)
[2024-01-11] MEDS: Acetaminophen 500 MG Tablet 1000 MG PO ×3 (05:14→22:28)
[2024-01-11 05:20] LABS: Hemoglobin 11.6 g/dL (12.0-15.0); Mean Corp Hgb Conc 30.5 g/dL (32-36); Mean Corpuscular Hgb 27.8 pg (27.0-32.0); Mean Corpuscular Volume 91.1 fL (81-99); Platelet Count 242 K/mm3 (150-450); RBC Distribution Width CV 15.2 % (11.6-14.6); RBC Distribution Width SD 51.2 fl (35.1-43.9); Red Blood Count 4.17 M/mm3 (4.2-5.4); White Blood Count 6.8 K/mm3 (4.4-11.0)
[2024-01-11 05:37] LABS: Anion Gap 2 (5-15); BUN 10 mg/dL (7-18); BUN/Creat Ratio 11.7 RATIO (10-20); Calcium,Total 8.7 mg/dL (8.5-10.1); Chloride 109 mmol/L (98-107); Creatinine, Serum 0.85 mg/dL (0.55-1.02); EST Glomerular Filtration Rate 71 mL/min (>60); Est Glom Filt Rate - Afr Amer 86 mL/min (>60); Estimated Creatinine Clearance 62.96 ml/min; Glucose 90 mg/dL (74-106); Potassium 3.4 mmol/L (3.5-5.1); Sodium Level 142 mmol/L (136-145)
[2024-01-11] MEDS: Cilostazol 50 MG Tablet PO (05:43)
[2024-01-11] MEDS: Morphine 2 MG/ML Syringe IV ×2 (05:43→22:48)
[2024-01-11] MEDS: Piperacil/Tazobactam 3.375 GM in 0.9% Normal Saline (50mL MB+) 50 ML IV ×3 (06:23→22:28)
[2024-01-11] MEDS: Budesonide Respules 0.5 MG/2 ML AMPUL.NEB. INHALATION ×2 (06:35→19:14)
[2024-01-11] MEDS: Albuterol 2.5 MG/3 ML VIAL.NEB. INHALATION ×3 (06:35→19:14)
--- NOTE | 2024-01-11 07:23 | PCM.PN.HOSP ---
Reason for Visit Reason for Visit: Diagnoses Disorder of arteries and arterioles, unspecified (01/08/24) Gangrene, not elsewhere classified (01/08/24) Osteomyelitis, unspecified (01/08/24) Subjective Subjective Feels weel. Objective Data Objective Data Vital Signs: Vital Signs Temp Pulse Resp BP Pulse Ox O2 Del Method O2 Flow Rate 36.6 C 73 18 118/75 93 Nasal Cannula 3 01/11/24 06:26 01/11/24 06:36 01/11/24 06:36 01/11/24 06:26 01/11/24 06:36 01/11/24 06:36 01/11/24 06:36 Oxygen Flow Rate (L/min) 3 Oxygen Delivery Method Nasal Cannula Weight: 78 kg Body Mass Index (BMI) 31.4 Intake & Output: Intake and Output for Last 24 Hours 01/09/24 01/10/24 01/11/24 23:59 23:59 23:59 Intake Total 1974 550 / 550 250 / 250 Balance 1974 550 / 550 250 / 250 Lab / Micro Data 01/11/24 04:20 01/11/24 04:20 Labs: Laboratory Results - last 24 hr 01/11/24 04:20: WBC 6.8, RBC 4.17 L, Hgb 11.6 L, Hct 38.0, MCV 91.1, MCH 27.8, MCHC 30.5 L, RDW Std Deviation 51.2 H, RDW Coeff of Alfie 15.2 H, Plt Count 242, MPV 10.0, Sodium 142, Potassium 3.4 L, Chloride 109 H, Carbon Dioxide 31.0, Anion Gap 2 L, BUN 10, Creatinine 0.85, Estim Creat Clear Calc 62.96, Est GFR (MDRD) Af Amer 86, Est GFR (MDRD) Non-Af 71, BUN/Creatinine Ratio 11.7, Glucose 90, Calcium 8.7 Micro: Microbiology 01/08/24 15:35 Blood Culture (Wb) - Anticubital Left Blood Culture - Preliminary No growth in 48 hours. Radiography Diagnostic Testing: Radiology Impression Toe X-Ray 01/10/24 06:45 IMPRESSION: Fluoroscopy during amputation of the fourth digit. Electronically Signed: Vincent Patel MD at 13:41 EST , Physical Exam Const alert and no apparent distress HEENT head/scalp atraumatic and moist oral mucous membranes Resp normal respiratory effort, no retractions, no use of accessory muscles and clear to auscultation bilaterally Cardio regular rate, regular rhythm, S1 normal heart sound and S2 normal heart sound GI normal to inspection, nondistended, normoactive bowel sounds Extremity Extremity Narrative: left foot wrapped. did not remove. Assessment & Plan Assessment/Plan (1) Gangrene: PLAN: Plan Left fourth toe gangrene Left fourth toe black and gangrenous appearing on admission, per patient had been this way for 1 to 2 weeks. Foot x-ray on admit within normal limits. I+D performed on 01/10, evidence of necrotic bone to fourth digit with malodor and scant purulent drainage noted.4th digit on left remove removed. Continue broad-spectrum antibiotics for now, follow-up cultures. ID consult Vascular surgery consulted per podiatry recs. Per podiatry, planning for second procedure for delayed closure and washout on either Thursday or Thursday of this coming week. Peripheral vascular disease with history of stenting follows with Dr. Kwong at [place] Vascular surgery here consulted as noted above. Continue home aspirin, statin, cilostazol. Clopidogrel currently held. Chronic conditions: COPD? Continue home inhalers. Incentive spirometry at bedside. Hypertension? Continue home amlodipine. Tobacco use? Former user. Advised continued cessation. DVT prophylaxis: SCDs CODE STATUS: Full code, verified Expected disposition: TBD Charges/Coding Visit Charges Inpatient E&M: 68083 Subs Hosp L2
--- NOTE | 2024-01-11 08:27 | WOUNDNOTE ---
wound photo: left foot
--- NOTE | 2024-01-11 09:53 | CON.PCM.ID_ITS ---
Assessment & Plan Assessment/Plan (1) Osteomyelitis: QUALIFIERS: Osteomyelitis location: foot Laterality: left (2) Gangrene: PLAN: on vanc/zosyn, taken to OR 01/10/[address] Camacho for L 4th toe amputation. Surg cx pending. Will follow, thank you (3) Peripheral arterial occlusive disease: HPI Consult Data Date of Consult: 01/11/24 HPI Narrative Reason for Consultation: osteo HPI Narrative: TONY BRADLEY, is a 68 F with h/o PAD, reports about a month ago L 4th toe started turning black. Had some mild pain, no fever. Sx worsened, developed purulent drainage. Sent to ED, admitted on vanc/zosyn, taken to OR 01/10/[address] Camacho for L 4th toe amputation. Feeling ok today, no n/v/d. Full ROS performed and neg except as noted above. COUNT INCLUDES [facility] Medical History Arthritis Carotid stenosis, bilateral Cervical cancer Peripheral arterial occlusive disease PVD (peripheral vascular disease) Tobacco abuse Home Medications acetaminophen 650 mg tablet,extended release (Tylenol Arthritis Pain) 650 mg PO Q6H PRN Pain 06/25/18 [History Last Taken Unknown] albuterol sulfate 90 mcg/actuation aerosol inhaler 2 puff inhalation Q6H PRN shortness of breath or wheezing 01/08/24 [History Last Taken Unknown] amlodipine 5 mg tablet 5 mg PO DAILY 01/08/24 [History Last Taken Unknown] aspirin 81 mg tablet,delayed release 81 mg PO DAILY 01/08/24 [History Last Taken Unknown] budesonide-formoterol HFA 160 mcg-4.5 mcg/actuation aerosol inhaler 2 puff inhalation BID 01/08/24 [History Last Taken Unknown] cilostazol 50 mg tablet 50 mg PO DAILY 01/08/24 [History Last Taken Unknown] clopidogrel 75 mg tablet 75 mg PO DAILY 01/08/24 [History Last Taken Unknown] rosuvastatin 10 mg tablet 10 mg PO DAILY 01/08/24 [History Last Taken Unknown] Allergy/AdvReac Type Severity Reaction Status Date / Time No Known Allergies Allergy Verified 01/08/24 13:35 Family History Mother Breast cancer Surgical History S/P LEFT ARTERIOGRAM Social History Smoking Status: Former smoker alcohol intake: never Physical Exam Const alert, oriented x3 and no apparent distress General Appearance: cooperative HEENT normocephalic and head/scalp atraumatic Neck supple and No nodes Resp normal air movement and clear to auscultation bilaterally Auscultation: diminished lung sounds Cardio regular rate and regular rhythm GI soft to palpation, non-tender and non-distended Extremity General Extremity: edema Skin Skin Narrative: Foot wrapped, reviewed photos Neuro CN's II-XII intact bilaterally Lab / Micro Data Attestation: I reviewed the patient's lab results. 01/11/24 04:20 01/11/24 04:20 Labs: Laboratory Results - last 24 hr 01/11/24 04:20: WBC 6.8, RBC 4.17 L, Hgb 11.6 L, Hct 38.0, MCV 91.1, MCH 27.8, MCHC 30.5 L, RDW Std Deviation 51.2 H, RDW Coeff of Alfie 15.2 H, Plt Count 242, MPV 10.0, Sodium 142, Potassium 3.4 L, Chloride 109 H, Carbon Dioxide 31.0, Anion Gap 2 L, BUN 10, Creatinine 0.85, Estim Creat Clear Calc 62.96, Est GFR (MDRD) Af Amer 86, Est GFR (MDRD) Non-Af 71, BUN/Creatinine Ratio 11.7, Glucose 90, Calcium 8.7 Micro: Microbiology 01/08/24 15:50 Blood Culture (Wb) - Anticubital Right Blood Culture - Final No growth. 01/08/24 15:35 Blood Culture (Wb) - Anticubital Left Blood Culture - Prelimi nary No growth in 48 hours. Imaging Radiology Impression Toe X-Ray 01/10/24 06:45 IMPRESSION: Fluoroscopy during amputation of the fourth digit. Electronically Signed: Vincent Patel MD at 13:41 EST ,
[2024-01-11] MEDS: amLODIPine 5 MG Tablet PO (11:42)
[2024-01-11] MEDS: Aspirin E.C. 81 MG Tablet PO (11:42)
[2024-01-11] MEDS: Potassium Chloride Oral Tablet 20 MEQ 40 MEQ PO (11:42)
--- NOTE | 2024-01-11 15:31 | CON.PCM.SX_ITS ---
Assessment & Plan Assessment/Plan (1) Atherosclerosis of [place] arteries of extremities with gangrene, left leg: PLAN: -CTA images reviewed, left common/external iliac stent occlusion -given timeline may have some element of thrombus -will plan angio with percutaneous mechanical thrombectomy/atherectomy -tentative for HPI Consult Data Date of Consult: 01/11/24 HPI Narrative HPI Narrative: TONY BRADLYE, is a 68 F who presents with left foot wound now s/p digit amputation/debridement 01/10. Has history of prior bilateral common/external iliac artery stents done for claudication in 2018. Stent placement resolved her symptoms. Claudication returned about 2-3 months ago and later digit pain/gangrene. She had outpatient imaging which suggested arterial insufficiency and CTA revealed totally occluded common and external iliac stents. [facility] Medical History Arthritis Carotid stenosis, bilateral Cervical cancer Peripheral arterial occlusive disease PVD (peripheral vascular disease) Tobacco abuse Home Medications acetaminophen 650 mg tablet,extended release (Tylenol Arthritis Pain) 650 mg PO Q6H PRN Pain 06/25/18 [History Last Taken Unknown] albuterol sulfate 90 mcg/actuation aerosol inhaler 2 puff inhalation Q6H PRN shortness of breath or wheezing 01/08/24 [History Last Taken Unknown] amlodipine 5 mg tablet 5 mg PO DAILY 01/08/24 [History Last Taken Unknown] aspirin 81 mg tablet,delayed release 81 mg PO DAILY 01/08/24 [History Last Taken Unknown] budesonide-formoterol HFA 160 mcg-4.5 mcg/actuation aerosol inhaler 2 puff inhalation BID 01/08/24 [History Last Taken Unknown] cilostazol 50 mg tablet 50 mg PO DAILY 01/08/24 [History Last Taken Unknown] clopidogrel 75 mg tablet 75 mg PO DAILY 01/08/24 [History Last Taken Unknown] rosuvastatin 10 mg tablet 10 mg PO DAILY 01/08/24 [History Last Taken Unknown] Allergy/AdvReac Type Severity Reaction Status Date / Time No Known Allergies Allergy Verified 01/08/24 13:35 Family History Mother Breast cancer Surgical History S/P LEFT ARTERIOGRAM Social History Smoking Status: Former smoker alcohol intake: never ROS Constitutional Constitutional: Denies chills, fever(s), frequent falls, lethargy or weakness Eyes Eyes: Denies blind spots, change in vision or loss of vision ENT HEENT: Denies bleeding gums, hoarseness or sore throat Cardiovascular Cardiovascular: Denies abdominal pain, bluish discoloration of hand/feet, chest pain with activity, claudication, cold extremities, cyanosis, dyspnea on exertion, erythema on extremities, irregular heart rhythm, leg edema, leg ulcers, numbness in extremities or weakness in extremities Respiratory/Chest Respiratory/Chest: Denies cough, excessive phlegm production, shortness of breath at rest, shortness of breath with exertion or wheezing Gastrointestinal Gastrointestinal: Denies anorexia, change in stool character, constipation, diarrhea, melena or rectal bleeding Genitourinary Genitourinary: Denies dysuria or hematuria Musculoskeletal Musculoskeletal: Denies abnormal gait Integumentary Integumentary: Reports wounds; Denies erythema or non-healing lesions Neurologic Neurologic: Denies abnormal speech, focal weakness, headache(s), loss of vision, numbness, paresthesias or sensory deficit Hematologic/Lymphatic Hematologic/Lymphatic: Denies easy bleeding, easy bruising or lymphadenopathy Physical Exam Const alert, oriented x3, no apparent distress and healthy appearing General Appearance: cooperative; Negative for combative or lethargic Orientation / Consciousness: awake Exam Limitations: no limitations HEENT Head and Scalp: normocephalic and atraumatic Eyes EOMs intact bilaterally General Eye: normal appearance of both eyes Neck full ROM, no lymphadenopathy and thyroid normal General: trachea midline; Negative for lymphadenopathy or tenderness Thyroid: thyroid normal Lymph Lymphatic: Negative for no lymphadenopathy noted Resp normal respiratory effort and no use of accessory muscles Effort and Inspection: Negative for labored, stridor or audible wheezes Cardio regular rate and regular rhythm Back/Spine Cervical Spine: cervical ROM normal Extremity full ROM, normal capillary refill and no clubbing, cyanosis or edema Skin no rashes or lesions noted Neuro oriented x3, CN's II-XII intact bilaterally, no focal motor deficits and no sensory deficits noted Psych thought process normal, cooperative, affect normal, speech normal and activity/motor behavior normal Lab / Micro Data 01/11/24 04:20 01/11/24 04:20 Labs: Laboratory Results - last 24 hr 01/11/24 04:20: WBC 6.8, RBC 4.17 L, Hgb 11.6 L, Hct 38.0, MCV 91.1, MCH 27.8, MCHC 30.5 L, RDW Std Deviation 51.2 H, RDW Coeff of Alfie 15.2 H, Plt Count 242, MPV 10.0, Sodium 142, Potassium 3.4 L, Chloride 109 H, Carbon Dioxide 31.0, Anion Gap 2 L, BUN 10, Creatinine 0.85, Estim Creat Clear Calc 62.96, Est GFR (MDRD) Af Amer 86, Est GFR (MDRD) Non-Af 71, BUN/Creatinine Ratio 11.7, Glucose 90, Calcium 8.7 Micro: Microbiology 01/10/24 10:07 Wound - Toe Gram Stain - Final 01/10/24 10:02 Wound - Toe Gram Stain - Final 01/10/24 10:02 Wound - Toe Wound Culture - Preliminary Gram positive organism 01/08/24 15:50 Blood Culture (Wb) - Anticubital Right Blood Culture - Final No growth. Charges/Coding Visit Charges Inpatient E&M: 23740 Init Hosp L3
--- NOTE | 2024-01-11 15:43 | CHAPLAIN ---
Type of Pastoral Visit _x__ Initial Visit ___ Follow-up Visit ___ On-call Visit ___ General Patient Visit ___ Spiritual Assessment ___ Family Conference ___ Bereavement ___ Rapid Response ___ Code Blue ___ Other (describe below) Pastoral Care Referral From _x__ Patient ___ Family ___ Nurse ___ Physician ___ Mass Spectroscopist ___ Book Reviewer ___ Other (describe below) Sacrament/Intervention ___ Active listening ___ Anointing ___ Roman Catholic ___ Bereavement ___ Communion ___ Tiffani exploration ___ ___ Life review _x__ Prayer ___ Reconciliation ___ Sacrament of Sick __x_ Supportive presence ___ Wedding ___ Other (describe below) Pastoral Comments patient was sitting up in chair and alert; sister of patient was sleeping on the couch and did not wake up during visit; pt was polite but did not engage in conversation; pt answered questions with minimal answers and stated that she was fine; offer of prayer was accepted
[2024-01-11] MEDS: Atorvastatin Calcium 20 MG Tablet PO (22:28)
[2024-01-11] MEDS: 0.9% Saline Lock 10 ML Syringe IV (22:49)
[2024-01-12] VITALS (9 sets, daily range): BP systolic 123–153; BP diastolic 72–94; PULSE 94–116; RESP 16–18; TEMP 36.3–37.3; O2SAT 92–100
[2024-01-12 03:41] LABS: Absolute Lymphocyte Count 0.95 X10^3/uL (0.83-4.51); Absolute Neutrophil Count 6.1 X10^3/uL (2.0-7.7); Basophil# 0.03 X10^3/uL; Basophil% 0.4 % (0-1); Eosinophil# 0.15 X10^3/uL; Eosinophils% 1.9 % (0-5); Hematocrit 36.6 % (37-47); Hemoglobin 11.3 g/dL (12.0-15.0); Lymphocyte # 0.95 X10^3/ul (0.83-4.51); Lymphocyte % 11.8 % (19-41); Mean Corp Hgb Conc 30.9 g/dL (32-36); Mean Corpuscular Volume 90.6 fL (81-99); Mean Platelet Vol. 9.6 fl (6.2-12.0); Monocyte# 0.83 X10^3/uL; Monocyte% 10.3 % (0-10); NRBC Flagged by Analyzer 0 % (0-5); Neutrophil # 6.09 X10^3/uL (2.7-7.7); Neutrophil % 75.4 % (47-70); Platelet Count 222 K/mm3 (150-450); RBC Distribution Width SD 50.1 fl (35.1-43.9); Red Blood Count 4.04 M/mm3 (4.2-5.4); White Blood Count 8.1 K/mm3 (4.4-11.0)
[2024-01-12 04:19] LABS: Anion Gap 2 (5-15); BUN 15 mg/dL (7-18); BUN/Creat Ratio 8.2 RATIO (10-20); Calcium,Total 8.7 mg/dL (8.5-10.1); Chloride 111 mmol/L (98-107); Creatinine, Serum 1.84 mg/dL (0.55-1.02); EST Glomerular Filtration Rate 29 mL/min (>60); Est Glom Filt Rate - Afr Amer 35 mL/min (>60); Estimated Creatinine Clearance 29.09 ml/min; Glucose 100 mg/dL (74-106); Sodium Level 141 mmol/L (136-145)
[2024-01-12 04:20] LABS: Vancomycin, Trough Level 35.2 ug/mL (5.0-15.0)
[2024-01-12] MEDS: Piperacil/Tazobactam 3.375 GM in 0.9% Normal Saline (50mL MB+) 50 ML IV (05:21)
--- NOTE | 2024-01-12 05:38 | PCM.RX.CS ---
Consult Antibiotic Management Pharmacy has been consulted to manage selected antibiotic: Vancomycin Type of Intervention Type of Consult: Follow-up Labs Labs: Sodium 141 mmol/L (136-145) 01/12/24 03:29 Potassium 4.0 mmol/L (3.5-5.1) 01/12/24 03:29 Chloride 111 mmol/L (98-107) H 01/12/24 03:29 Carbon Dioxide 28.0 mmol/L (21.0-32.0) 01/12/24 03:29 Anion Gap 2 (5-15) L 01/12/24 03:29 BUN 15 mg/dL (7-18) 01/12/24 03:29 Creatinine 1.84 mg/dL (0.55-1.02) H 01/12/24 03:29 Est GFR (MDRD) Af Amer 35 mL/min (>60) L 01/12/24 03:29 Est GFR (MDRD) Non-Af 29 mL/min (>60) L 01/12/24 03:29 BUN/Creatinine Ratio 8.2 RATIO (10-20) L 01/12/24 03:29 Glucose 100 mg/dL (74-106) 01/12/24 03:29 Vancomycin Trough 35.2 ug/mL (5.0-15.0) H 01/12/24 03:29 Microbiology Microbiology: Microbiology 01/10/24 10:07 Wound - Toe Gram Stain - Final 01/10/24 10:02 Wound - Toe Gram Stain - Final 01/10/24 10:02 Wound - Toe Wound Culture - Preliminary Gram positive organism 01/08/24 15:50 Blood Culture (Wb) - Anticubital Right Blood Culture - Final No growth. 01/08/24 15:35 Blood Culture (Wb) - Anticubital Left Blood Culture - Preliminary No growth in 48 hours. Pharmacy Plan for Drug Dosing Pharmacy Plan for Drug Dosing: Pharmacy Service will continue to monitor and adjust dosing as required. TROUGH 35.2 @ 10 HOURS. HOLD DOSE AND DRAW RANDOM LEVEL IN 12 HOURS Follow-Up Labs Follow-Up Labs: Trough: Vancomycin Date/Time Labs Ordered Labs to be done on [date and time ordered]: 01/12 @ 0487
[2024-01-12] MEDS: Acetaminophen 500 MG Tablet 1000 MG PO ×3 (06:25→21:59)
[2024-01-12] MEDS: Cilostazol 50 MG Tablet PO (06:25)
--- NOTE | 2024-01-12 06:59 | PN.HOSP_ITS ---
Subjective Subjective Feels well. Objective Data Objective Data Vital Signs: Vital Signs Temp Pulse Resp BP Pulse Ox O2 Del Method O2 Flow Rate 36.6 C 94 17 131/72 H 96 Nasal Cannula 2 01/12/24 03:22 01/12/24 03:22 01/12/24 03:22 01/12/24 03:22 01/12/24 03:22 01/12/24 03:25 01/12/24 03:25 Oxygen Flow Rate (L/min) 2 Oxygen Delivery Method Nasal Cannula Weight: 78 kg Body Mass Index (BMI) 31.4 Intake & Output: Intake and Output for Last 24 Hours 01/10/24 01/11/24 01/12/24 23:59 23:59 23:59 Intake Total 550 / 550 2200 / 2200 50 / 50 Balance 550 / 550 2200 / 2200 50 / 50 Lab / Micro Data 01/12/24 03:29 01/12/24 03:29 Labs: Laboratory Results - last 24 hr 01/12/24 03:29: WBC 8.1, RBC 4.04 L, Hgb 11.3 L, Hct 36.6 L, MCV 90.6, MCH 28.0, MCHC 30.9 L, RDW Std Deviation 50.1 H, RDW Coeff of Alfie 15.0 H, Plt Count 222, MPV 9.6, Immature Gran % (Auto) 0.200, Neut % (Auto) 75.4 H, Lymph % (Auto) 11.8 L, [place] % (Auto) 10.3 H, Eos % (Auto) 1.9, Baso % (Auto) 0.4, Absolute Neuts (auto) 6.1, Absolute Lymphs (auto) 0.95, Nucleated RBC % 0, Sodium 141, Potassium 4.0, Chloride 111 H, Carbon Dioxide 28.0, Anion Gap 2 L, BUN 15, Creatinine 1.84 H, Estim Creat Clear Calc 29.09, Est GFR (MDRD) Af Amer 35 L, Est GFR (MDRD) Non-Af 29 L, BUN/Creatinine Ratio 8.2 L, Glucose 100, Calcium 8.7, Vancomycin Trough 35.2 H Micro: Microbiology 01/10/24 10:07 Wound - Toe Gram Stain - Final 01/10/24 10:02 Wound - Toe Gram Stain - Final 01/10/24 10:02 Wound - Toe Wound Culture - Preliminary Gram positive organism 01/08/24 15:50 Blood Culture (Wb) - Anticubital Right Blood Culture - Final No growth. 01/08/24 15:35 Blood Culture (Wb) - Anticubital Left Blood Culture - Preliminary No growth in 48 hours. Physical Exam Const alert HEENT head/scalp atraumatic and moist oral mucous membranes Resp normal respiratory effort, no retractions, no use of accessory muscles and clear to auscultation bilaterally Cardio regular rate, regular rhythm, S1 normal heart sound and S2 normal heart sound GI normal to inspection, nondistended, normoactive bowel sounds, soft to palpation, non-tender and non-distended Extremity Extremity Narrative: LLE wrapped, did not remove. Assessment & Plan Assessment/Plan (1) Gangrene: PLAN: Plan Left fourth toe gangrene * Left fourth toe black and gangrenous appearing on admission, per patient had been this way for 1 to 2 weeks. * Foot x-ray on admit within normal limits. * I+D performed on 01/10, evidence of necrotic bone to fourth digit with malodor and scant purulent drainage noted.4th digit on left remove removed. * Continue broad-spectrum antibiotics for now, follow-up cultures. ID consult * Vascular surgery consulted per podiatry recs. * Per podiatry, planning for second procedure for delayed closure and washout on 01/13 * Wound culture growing out GPO, await final results and sensitivities. Peripheral vascular disease with history of stenting * follows with Dr. Kwong at [place] * Vascular surgery here consulted as noted above. Continue home aspirin, statin, cilostazol. Clopidogrel currently held. * angio with percutaneous mechanical thrombectomy/atherectomy tentative for MELLY * Cr 1.84, up from 0.85 * Will give IVF. * Unclear etiology at this point. I am concerned that this could be due to vancomycin. Chronic conditions: * COPD? Continue home inhalers. Incentive spirometry at bedside. * Hypertension? Continue home amlodipine. * Tobacco use? Former user. Advised continued cessation. DVT prophylaxis: SCDs CODE STATUS: Full code, verified Expected disposition: TBD Charges/Coding Visit Charges Inpatient E&M: 50460 Subs Hosp L2
--- NOTE | 2024-01-12 07:40 | PN.SURG_ITS ---
Subjective Subjective Mrs. Macedo is a 68-year-old female seen at bedside today for left lower extremity dressing changes. Patient states that she is recovering well. She denies any pain to the area except with dressing changes. She has met with vascular surgery, planning intervention. No acute events overnight. She denies trauma. Denies constitutional symptoms. No other pedal complaints at this time. Objective Data Objective Data Vital Signs: Vital Signs Temp Pulse Resp BP Pulse Ox O2 Del Method O2 Flow Rate 97.8 F 94 17 131/72 H 96 Nasal Cannula 2 01/12/24 03:22 01/12/24 03:22 01/12/24 03:22 01/12/24 03:22 01/12/24 03:22 01/12/24 03:25 01/12/24 03:25 Oxygen Flow Rate (L/min) 2 Oxygen Delivery Method Nasal Cannula Weight: 78 kg Body Mass Index (BMI) 31.4 Intake & Output: Intake and Output for Last 24 Hours 01/10/24 01/11/24 01/12/24 23:59 23:59 23:59 Intake Total 550 / 550 2200 / 2200 50 / 50 Balance 550 / 550 2200 / 2200 50 / 50 Lab / Micro Data 01/12/24 03:29 01/12/24 03:29 Labs: Laboratory Results - last 24 hr 01/12/24 03:29: WBC 8.1, RBC 4.04 L, Hgb 11.3 L, Hct 36.6 L, MCV 90.6, MCH 28.0, MCHC 30.9 L, RDW Std Deviation 50.1 H, RDW Coeff of Alfie 15.0 H, Plt Count 222, MPV 9.6, Immature Gran % (Auto) 0.200, Neut % (Auto) 75.4 H, Lymph % (Auto) 11.8 L, [place] % (Auto) 10.3 H, Eos % (Auto) 1.9, Baso % (Auto) 0.4, Absolute Neuts (auto) 6.1, Absolute Lymphs (auto) 0.95, Nucleated RBC % 0, Sodium 141, Potassium 4.0, Chloride 111 H, Carbon Dioxide 28.0, Anion Gap 2 L, BUN 15, Creatinine 1.84 H, Estim Creat Clear Calc 29.09, Est GFR (MDRD) Af Amer 35 L, Est GFR (MDRD) Non-Af 29 L, BUN/Creatinine Ratio 8.2 L, Glucose 100, Calcium 8.7, Vancomycin Trough 35.2 H Micro: Microbiology 01/10/24 10:07 Wound - Toe Gram Stain - Final 01/10/24 10:02 Wound - Toe Gram Stain - Final 01/10/24 10:02 Wound - Toe Wound Culture - Preliminary Gram positive organism 01/08/24 15:50 Blood Culture (Wb) - Anticubital Right Blood Culture - Final No growth. 01/08/24 15:35 Blood Culture (Wb) - Anticubital Left Blood Culture - Preliminary No growth in 48 hours. Physical Exam Narrative Neurovascular status is unchanged. Full-thickness incision appreciated to the level of the fourth metatarsal of the left foot. Wound base is granular nature with sanguinous drainage. No malodor. Positive probe to bone secondary to surgical leg changes. Moderate palpatory tenderness is appreciated. No pain with calf compression. Assessment & Plan Assessment/Plan (1) Osteomyelitis: QUALIFIERS: Osteomyelitis location: foot Laterality: left PLAN: Patient was examined and evaluated. All findings were discussed with the patient. All questions were answered to the patient satisfaction. The patient's left foot incision was dressed with quarter inch iodoform packing, dry sterile dressing and a single layer Cobb compression bandage was donned to the left lower extremity. Please keep dressing clean dry and intact. Will plan for washout and delayed primary closure, left foot, 01/13/2024 in the afternoon. Please keep patient n.p.o. midnight tonight. Sx Cx: gm(+) organism WBC: 6.8 -> 8.1 Medicine: On board, medical management Infectious disease: On board, IV antibiotics vancomycin and Zosyn Vascular surgery: On board, planning for angio with percutaneous mechanical thrombectomy/arthrectomy, tentative planning for Please reach out to Dr. Camacho with any questions or concerns. Podiatry will continue to follow while patient is in house. Thank you for letting me be involved in the patient care. (2) Gangrene: (3) Atherosclerosis of [place] arteries of extremities with gangrene, left leg:
[2024-01-12] MEDS: Aspirin E.C. 81 MG Tablet PO (09:09)
[2024-01-12] MEDS: amLODIPine 5 MG Tablet PO (09:09)
--- NOTE | 2024-01-12 09:45 | PCM.PN.ID ---
Physical Exam Narrative Diarrhea improved, no fever. Const alert General Appearance: cooperative Resp normal air movement and clear to auscultation bilaterally Cardio regular rate and regular rhythm GI soft to palpation, non-tender and non-distended Skin no rashes or lesions noted Skin Narrative: foot wrapped ID ID: Route of nutrition/ use of supplements: [] Nutritional Intake: [] IV Site: [] Morse Catheter: [] Assessment & Plan Assessment/Plan (1) Osteomyelitis: QUALIFIERS: Osteomyelitis location: foot Laterality: left (2) Gangrene: PLAN: on vanc/zosyn, taken to OR 01/10/[address] Camacho for L 4th toe amputation. Surg cx showing rare staph so far. New MELLY, will change zosyn to ceftriaxone/flagyl. Will follow (3) Peripheral arterial occlusive disease:
[2024-01-12] MEDS: 0.9% Normal Saline (1000mL) 1,000 ML 150 ML IV (10:34)
[2024-01-12] MEDS: 0.9% Saline Lock 10 ML Syringe IV ×2 (10:36→22:01)
[2024-01-12] MEDS: Ceftriaxone 2 GM in 0.9% Normal Saline (50mL MB+) 50 ML IV (10:37)
[2024-01-12] MEDS: Budesonide Respules 0.5 MG/2 ML AMPUL.NEB. INHALATION ×2 (13:04→19:25)
[2024-01-12] MEDS: Albuterol 2.5 MG/3 ML VIAL.NEB. INHALATION ×2 (13:04→19:25)
[2024-01-12] MEDS: metroNIDAZOLE 500 MG Tablet PO ×2 (14:00→21:59)
[2024-01-12 18:22] LABS: Vancomycin, Random Level 27.3 ug/mL (0.0-15.0)
[2024-01-12] MEDS: oxyCODONE 5 MG Tablet PO (18:24)
--- NOTE | 2024-01-12 18:39 | PCM.RX.CS ---
Consult Antibiotic Management Pharmacy has been consulted to manage selected antibiotic: Vancomycin Type of Intervention Type of Consult: Follow-up Suspected Infection Suspected Infection: Osteomyelitis Prior Doses of Antibiotics Prior Doses of Antibiotics Received/Current Regimen: no scheduled dose at the current time but it had been 1000mg IV q12h before it was held due to a high trough Labs Labs: Sodium 141 mmol/L (136-145) 01/12/24 03:29 Potassium 4.0 mmol/L (3.5-5.1) 01/12/24 03:29 Chloride 111 mmol/L (98-107) H 01/12/24 03:29 Carbon Dioxide 28.0 mmol/L (21.0-32.0) 01/12/24 03:29 Anion Gap 2 (5-15) L 01/12/24 03:29 BUN 15 mg/dL (7-18) 01/12/24 03:29 Creatinine 1.84 mg/dL (0.55-1.02) H 01/12/24 03:29 Est GFR (MDRD) Af Amer 35 mL/min (>60) L 01/12/24 03:29 Est GFR (MDRD) Non-Af 29 mL/min (>60) L 01/12/24 03:29 BUN/Creatinine Ratio 8.2 RATIO (10-20) L 01/12/24 03:29 Glucose 100 mg/dL (74-106) 01/12/24 03:29 Vancomycin Trough 35.2 ug/mL (5.0-15.0) H 01/12/24 03:29 Random Vancomycin 27.3 ug/mL (0.0-15.0) H 01/12/24 17:23 Microbiology Microbiology: Microbiology 01/10/24 10:07 Wound - Toe Gram Stain - Final 01/10/24 10:07 Wound - Toe Wound Culture - Preliminary GNR lactose garment manufacturer 01/10/24 10:02 Wound - Toe Gram Stain - Final 01/10/24 10:02 Wound - Toe Wound Culture - Preliminary Staphylococcus species 01/10/24 10:02 Wound - Toe Anaerobic Culture - Preliminary Checking for anaerobes, further studies to follow. 01/08/24 15:50 Blood Culture (Wb) - Anticubital Right Blood Culture - Final No growth. 01/08/24 15:35 Blood Culture (Wb) - Anticubital Left Blood Culture - Preliminary No growth in 48 hours. Dosing Weight Weight used for dosin kg Estimated Creatinine Clearance Estimated Creatinine Clearance: 29 ml/min Goal Trough Goal Trough: 15-20 mcg/mL Pharmacy Plan for Drug Dosing Pharmacy Plan for Drug Dosing: The vanc random level drawn at 17:23 this evening was 27.3. It is still above 20 so no dose will be ordered tonight. Of note, the patient's SCr jumped up to 1.84 today from 0.85 yesterday. Will continue to hold dosing and will order another random level to be drawn tomorrow in approximately 18 hours from this evening's level. That result will determine if dosing can be resumed tomorrow at a newly calculated dose. Pharmacy Service will continue to monitor and adjust dosing as required. Follow-Up Labs Follow-Up Labs: Trough: Vancomycin (random) Date/Time Labs Ordered Labs to be done on [date and time ordered]: 01/13/24 12:00
[2024-01-12] MEDS: Atorvastatin Calcium 20 MG Tablet PO (21:59)
[2024-01-13] VITALS (15 sets, daily range): BP systolic 116–165; BP diastolic 62–80; PULSE 96–127; RESP 14–20; TEMP 36.8–37.5; O2SAT 92–100; BMI 31.4
[2024-01-13 06:02] LABS: Absolute Lymphocyte Count 0.81 X10^3/uL (0.83-4.51); Absolute Neutrophil Count 6.3 X10^3/uL (2.0-7.7); Basophil# 0.03 X10^3/uL; Basophil% 0.4 % (0-1); Eosinophil# 0.21 X10^3/uL; Eosinophils% 2.6 % (0-5); Hematocrit 36.5 % (37-47); Hemoglobin 11.2 g/dL (12.0-15.0); Lymphocyte # 0.81 X10^3/ul (0.83-4.51); Lymphocyte % 9.9 % (19-41); Mean Corp Hgb Conc 30.7 g/dL (32-36); Mean Corpuscular Hgb 27.7 pg (27.0-32.0); Mean Corpuscular Volume 90.1 fL (81-99); Mean Platelet Vol. 10.4 fl (6.2-12.0); Monocyte# 0.84 X10^3/uL; Monocyte% 10.2 % (0-10); NRBC Flagged by Analyzer 0 % (0-5); Neutrophil # 6.28 X10^3/uL (2.7-7.7); Neutrophil % 76.5 % (47-70); Platelet Count 231 K/mm3 (150-450); RBC Distribution Width SD 49.5 fl (35.1-43.9); Red Blood Count 4.05 M/mm3 (4.2-5.4); White Blood Count 8.2 K/mm3 (4.4-11.0)
[2024-01-13 06:29] LABS: Anion Gap 3 (5-15); BUN 22 mg/dL (7-18); BUN/Creat Ratio 8.6 RATIO (10-20); Chloride 110 mmol/L (98-107); Creatinine, Serum 2.55 mg/dL (0.55-1.02); EST Glomerular Filtration Rate 20 mL/min (>60); Est Glom Filt Rate - Afr Amer 24 mL/min (>60); Estimated Creatinine Clearance 20.99 ml/min; Glucose 99 mg/dL (74-106); Potassium 3.9 mmol/L (3.5-5.1); Sodium Level 141 mmol/L (136-145)
[2024-01-13] MEDS: Albuterol 2.5 MG/3 ML VIAL.NEB. INHALATION ×3 (06:45→19:35)
[2024-01-13] MEDS: Budesonide Respules 0.5 MG/2 ML AMPUL.NEB. INHALATION ×2 (06:45→19:35)
--- NOTE | 2024-01-13 07:08 | PN.HOSP_ITS ---
Reason for Visit Reason for Visit: Diagnoses Atherosclerosis of [place] arteries of extremities with gangrene, left leg (12/18 02/06) Disorder of arteries and arterioles, unspecified (01/08/24) Gangrene, not elsewhere classified (01/08/24) Osteomyelitis, unspecified (01/08/24) Objective Data Objective Data Vital Signs: Vital Signs Temp Pulse Resp BP Pulse Ox O2 Del Method O2 Flow Rate 36.9 C 103 H 20 H 146/79 H 96 Nasal Cannula 3 01/13/24 04:08 01/13/24 06:47 01/13/24 06:47 01/13/24 04:08 01/13/24 06:47 01/13/24 06:47 01/13/24 06:47 Oxygen Flow Rate (L/min) 3 Oxygen Delivery Method Nasal Cannula Weight: 78 kg Body Mass Index (BMI) 31.4 Intake & Output: Intake and Output for Last 24 Hours 01/11/24 01/12/24 01/13/24 23:59 23:59 23:59 Intake Total 2200 / 2200 1150.0 / 1150.0 Balance 2200 / 2200 1150.0 / 1150.0 Lab / Micro Data 01/13/24 05:11 01/13/24 05:11 Labs: Laboratory Results - last 24 hr 01/12/24 17:23: Random Vancomycin 27.3 H 01/13/24 05:11: WBC 8.2, RBC 4.05 L, Hgb 11.2 L, Hct 36.5 L, MCV 90.1, MCH 27.7, MCHC 30.7 L, RDW Std Deviation 49.5 H, RDW Coeff of Alfie 15.0 H, Plt Count 231, MPV 10.4, Immature Gran % (Auto) 0.400, Neut % (Auto) 76.5 H, Lymph % (Auto) 9.9 L, [place] % (Auto) 10.2 H, Eos % (Auto) 2.6, Baso % (Auto) 0.4, Absolute Neuts ( auto) 6.3, Absolute Lymphs (auto) 0.81 L, Nucleated RBC % 0, Sodium 141, Pota ssium 3.9, Chloride 110 H, Carbon Dioxide 28.0, Anion Gap 3 L, BUN 22 H, Creatinine 2.55 H, Estim Creat Clear Calc 20.99, Est GFR (MDRD) Af Amer 24 L, Est GFR (MDRD) Non-Af 20 L, BUN/Creatinine Ratio 8.6 L, Glucose 99, Calcium 9.0 Micro: Microbiology 01/10/24 10:07 Wound - Toe Gram Stain - Final 01/10/24 10:07 Wound - Toe Wound Culture - Preliminary GNR lactose cargo operations agent 01/10/24 10:02 Wound - Toe Gram Stain - Final 01/10/24 10:02 Wound - Toe Wound Culture - Preliminary Staphylococcus species 01/10/24 10:02 Wound - Toe Anaerobic Culture - Preliminary Checking for anaerobes, further studies to follow. 01/08/24 15:50 Blood Culture (Wb) - Anticubital Right Blood Culture - Final No growth. 01/08/24 15:35 Blood Culture (Wb) - Anticubital Left Blood Culture - Preliminary No growth in 48 hours. Radiography Diagnostic Testing: Radiology Impression Extremity Arterial Study 01/08/24 20:28 Interpretation Summary Right ALEIDA 0.98, mild arterial insufficiency. TBI and Doppler/PVR waveforms of the right leg normal at rest Left ALEIDA 0.44, normal. Doppler/PVR waveforms and segmental pressures reveal [id number] femoral disease. Ordering Physician: Gareth Camacho Referring Physician: Vincent Ashley Performed By: RAMON HUMPHREY Sandra Assessment & Plan Assessment/Plan (1) Gangrene: PLAN: Plan Left fourth toe gangrene * Left fourth toe black and gangrenous appearing on admission, per patient had been this way for 1 to 2 weeks. * Foot x-ray on admit within normal limits. * I+D performed on 01/10, evidence of necrotic bone to fourth digit with malodor and scant purulent drainage noted.4th digit on left remove removed. * Continue broad-spectrum antibiotics for now, follow-up cultures. ID consult * Vascular surgery consulted per podiatry recs. * Per podiatry, planning for second procedure for delayed closure and washout on 01/13 * Wound culture growing out Staph species, await final results and sensitivities. Peripheral vascular disease with history of stenting * follows with Dr. Kwong at [place] * Vascular surgery here consulted as noted above. Continue home aspirin, statin, cilostazol. Clopidogrel currently held. * Angiography with percutaneous mechanical thrombectomy/atherectomy tentative for MELLY * Worsening now up to 2.55 (baseline around 0.84). Did receive IVF on 01/12. * Check urine studies. Check US. Consult nephrology. * Unclear etiology at this point. I am concerned that this could be due to vancomycin. Chronic conditions: * COPD? Continue home inhalers. Incentive spirometry at bedside. * Hypertension? Continue home amlodipine. * Tobacco use? Former user. Advised continued cessation. DVT prophylaxis: SCDs CODE STATUS: Full code, verified Expected disposition: TBD
--- NOTE | 2024-01-13 07:08 | PCM.PN.HOSP ---
Reason for Visit Reason for Visit: Diagnoses Atherosclerosis of [place] arteries of extremities with gangrene, left leg (01/08/24) Disorder of arteries and arterioles, unspecified (01/08/24) Gangrene, not elsewhere classified (01/08/24) Osteomyelitis, unspecified (01/08/24) Subjective Subjective No events. Anxious for surgery. Upset when informed about MELLY and unclear certainty of angiography. Objective Data Objective Data Vital Signs: Vital Signs Temp Pulse Resp BP Pulse Ox O2 Del Method O2 Flow Rate 36.9 C 103 H 20 H 146/79 H 96 Nasal Cannula 3 01/13/24 04:08 01/13/24 06:47 01/13/24 06:47 01/13/24 04:08 01/13/24 06:47 01/13/24 06:47 01/13/24 06:47 Oxygen Flow Rate (L/min) 3 Oxygen Delivery Method Nasal Cannula Weight: 78 kg Body Mass Index (BMI) 31.4 Intake & Output: Intake and Output for Last 24 Hours 01/11/24 01/12/24 01/13/24 23:59 23:59 23:59 Intake Total 2200 / 2200 1150.0 / 1150.0 Balance 2200 / 2200 1150.0 / 1150.0 Lab / Micro Data 01/13/24 05:11 01/13/24 05:11 Labs: Laboratory Results - last 24 hr 01/12/24 17:23: Random Vancomycin 27.3 H 01/13/24 05:11: WBC 8.2, RBC 4.05 L, Hgb 11.2 L, Hct 36.5 L, MCV 90.1, MCH 27.7, MCHC 30.7 L, RDW Std Deviation 49.5 H, RDW Coeff of Alfie 15.0 H, Plt Count 231, MPV 10.4, Immature Gran % (Auto) 0.400, Neut % (Auto) 76.5 H, Lymph % (Auto) 9.9 L, [place] % (Auto) 10.2 H, Eos % (Auto) 2.6, Baso % (Auto) 0.4, Absolute Neuts (auto) 6.3, Absolute Lymphs (auto) 0.81 L, Nucleated RBC % 0, Sodium 141, Potassium 3.9, Chloride 110 H, Carbon Dioxide 28.0, Anion Gap 3 L, BUN 22 H, Creatinine 2.55 H, Estim Creat Clear Calc 20.99, Est GFR (MDRD) Af Amer 24 L, Est GFR (MDRD) Non-Af 20 L, BUN/Creatinine Ratio 8.6 L, Glucose 99, Calcium 9.0 Micro: Microbiology 01/10/24 10:07 Wound - Toe Gram Stain - Final 01/10/24 10:07 Wound - Toe Wound Culture - Preliminary GNR lactose photocopy operator 01/10/24 10:02 Wound - Toe Gram Stain - Final 01/10/24 10:02 Wound - Toe Wound Culture - Preliminary Staphylococcus species 01/10/24 10:02 Wound - Toe Anaerobic Culture - Preliminary Checking for anaerobes, further studies to follow. 01/08/24 15:50 Blood Culture (Wb) - Anticubital Right Blood Culture - Final No growth. 01/08/24 15:35 Blood Culture (Wb) - Anticubital Left Blood Culture - Preliminary No growth in 48 hours. Radiography Diagnostic Testing: Radiology Impression Extremity Arterial Study 01/08/24 20:28 Interpretation Summary Right ALEIDA 0.98, mild arterial insufficiency. TBI and Doppler/PVR waveforms of the right leg normal at rest Left ALEIDA 0.44, normal. Doppler/PVR waveforms and segmental pressures reveal [id number] femoral disease. Ordering Physician: Gareth Camacho Referring Physician: Vincent Ashley Performed By: RAMON HUMPHREY RVT Physical Exam Const alert and no apparent distress Resp normal respiratory effort, no retractions, no use of accessory muscles and clear to auscultation bilaterally Cardio regular rate, regular rhythm, S1 normal heart sound and S2 normal heart sound GI normal to inspection, nondistended, normoactive bowel sounds, soft to palpation, non-tender and non-distended Neuro Sensorium / Orientation: awake and alert Assessment & Plan Assessment/Plan (1) Gangrene: PLAN: Plan Left fourth toe gangrene Left fourth toe black and gangrenous appearing on admission, per patient had been this way for 1 to 2 weeks. Foot x-ray on admit within normal limits. I+D performed on 01/10, evidence of necrotic bone to fourth digit with malodor and scant purulent drainage noted.4th digit on left remove removed. Continue broad-spectrum antibiotics for now, follow-up cultures. ID consult Vascular surgery consulted per podiatry recs. Per podiatry, planning for second procedure for delayed closure and washout on 01/13 Wound culture growing out Staph species, await final results and sensitivities. Peripheral vascular disease with history of stenting follows with Dr. Kwong at [place] Vascular surgery here consulted as noted above. Continue home aspirin, statin, cilostazol. Clopidogrel currently held. Angiography with percutaneous mechanical thrombectomy/atherectomy tentative for MELLY Worsening now up to 2.55 (baseline around 0.84). Did receive IVF on 01/12. Check urine studies. Check US. Consult nephrology. Unclear etiology at this point. I am concerned that this could be due to vancomycin. Chronic conditions: COPD? Continue home inhalers. Incentive spirometry at bedside. Hypertension? Continue home amlodipine. Tobacco use? Former user. Advised continued cessation. DVT prophylaxis: SCDs CODE STATUS: Full code, verified Expected disposition: TBD Charges/Coding Visit Charges Inpatient E&M: 84473 Subs Hosp L2
--- NOTE | 2024-01-13 07:14 | US_ITS ---
STUDY: RENAL ULTRASOUND - COMPLETE REASON FOR EXAM: Female, 68 years old. Elevated BUN/creatinine TECHNIQUE: Ultrasound evaluation of the kidneys was performed with real-time and static victoria-scale imaging. COMPARISON: None. FINDINGS: RIGHT KIDNEY: Normal location of the right kidney, which is normal in size. The right kidney measures 12.1 x 6.1 x 5.8 cm. There is a normal cortex of the right kidney. The renal cortex measures 1.3 cm. There is no right renal mass or cyst. There are no right renal calculi. There is no right hydronephrosis. DISTAL RIGHT URETER: There is non-visualization of the distal right ureter. There is no demonstrated right ureterovesical junction calculus. There is a visualized right ureteral jet. LEFT KIDNEY: Normal location of the left kidney, which is normal in size. The left kidney measures 13.5 x 6.5 x 6.9 cm. There is a normal cortex of the left kidney. The renal cortex measures 2.1 cm. There is no left renal mass or cyst. There are no left renal calculi. There is mild hydronephrosis of the left kidney. DISTAL LEFT URETER: There is non-visualization of the distal left ureter. There is no demonstrated left ureterovesical junction calculus. There is a visualized left ureteral jet. AORTA: There is no elongation or tortuosity of the abdominal aorta. I.V.C.: The IVC is patent. BLADDER: The distended urinary bladder has a volume of 300.33 ml. The empty urinary bladder has a volume of less than 10 ml. There is a normal wall thickness of the distended urinary bladder. There is no demonstrated mass within the urinary bladder. There are no demonstrated bladder calculi. US/Kidney and Bladder IMPRESSION: Mild left hydronephrosis of uncertain etiology Sonographically normal right kidney and bladder Electronically Signed: Graham Villalobos MD at 14:18 EST ,
[2024-01-13] MEDS: amLODIPine 5 MG Tablet PO (07:53)
--- NOTE | 2024-01-13 08:40 | WOUNDNOTE ---
Pt is scheduled for surgery later today so will leave dressing in place to the left foot. patient denies needs at this time.
[2024-01-13] MEDS: Ceftriaxone 2 GM in 0.9% Normal Saline (50mL MB+) 50 ML IV (10:36)
[2024-01-13] MEDS: 0.9% Saline Lock 10 ML Syringe IV (10:39)
[2024-01-13 11:05] LABS: Mucous, Urine 0 SEEN /hpf (<or=2+)
[2024-01-13 11:12] LABS: Color, Urine Yellow (Yellow); Glucose, Dipstick Normal (Normal); Ketone-Dipstick 5 mg/dl (Negative); Leukocyte Esterase-Dipstick Negative /ul (Negative); Nitrite-Dipstick Negative (Negative); Occult Blood-Urine 25 /ul (Negative); Protein-Dipstick Negative (Negative); Urine Bilirubin Dipstick Negative (Negative); Urine Clarity Sl. Cloudy (Clear); Urine Urobilinogen Normal (Normal); Urine pH 6.5 (5.0 - 8.0)
--- NOTE | 2024-01-13 11:14 | PCM.CONS.R ---
Assessment & Plan Assessment/Plan (1) MELLY (acute kidney injury): PLAN: Baseline creatinine was normal, close to baseline up until 2 days ago. Has been increasing, today up to 2.5. Denies any obstructive symptoms. No contrasted studies. She has been on vancomycin and there was a trough which was elevated. Other medications reviewed. Differential include vancomycin induced ATN versus sepsis induced ATN versus postinfectious glomerulonephritis. Plan Renal ultrasound, urine analysis, urine electrolytes, C3 level somewhat too soon for AIN HPI Consult Data Date of Consult: 01/13/24 HPI Narrative Reason for Consultation: Acute renal failure HPI Narrative: TONY BRADLEY, is a 68 F who presents To the hospital about 4 days ago with gangrenous toe. Nephrology on consultation in view of acute renal failure. No prior kidney disease at baseline. Creatinine was at baseline up until 2 days ago. Slow but progressive increase in creatinine over the last 2 days. Currently denies any complaints other than pain at the site of gangrenous toe. Podiatry, vascular surgery, ID service is following. No contrasted studies. She says she has been voiding without any problems. Did not particularly notice hematuria but she says she has been losing a lot of urine whenever she has loose bowel movements. [facility] Medical History Arthritis Carotid stenosis, bilateral Cervical cancer Peripheral arterial occlusive disease PVD (peripheral vascular disease) Tobacco abuse Home Medications acetaminophen 650 mg tablet,extended release (Tylenol Arthritis Pain) 650 mg PO Q6H PRN Pain 06/25/18 [History Last Taken Unknown] albuterol sulfate 90 mcg/actuation aerosol inhaler 2 puff inhalation Q6H PRN shortness of breath or wheezing 01/08/24 [History Last Taken Unknown] amlodipine 5 mg tablet 5 mg PO DAILY 01/08/24 [History Last Taken Unknown] aspirin 81 mg tablet,delayed release 81 mg PO DAILY 01/08/24 [History Last Taken Unknown] budesonide-formoterol HFA 160 mcg-4.5 mcg/actuation aerosol inhaler 2 puff inhalation BID 01/08/24 [History Last Taken Unknown] cilostazol 50 mg tablet 50 mg PO DAILY 01/08/24 [History Last Taken Unknown] clopidogrel 75 mg tablet 75 mg PO DAILY 01/08/24 [History Last Taken Unknown] rosuvastatin 10 mg tablet 10 mg PO DAILY 01/08/24 [History Last Taken Unknown] Allergy/AdvReac Type Severity Reaction Status Date / Time No Known Allergies Allergy Verified 01/08/24 13:35 Family History Mother Breast cancer Surgical History S/P LEFT ARTERIOGRAM Social History Smoking Status: Former smoker alcohol intake: never ROS ROS Narrative Negative except above Physical Exam Narrative Alert awake oriented x 3 no obvious distress no pallor no icterus no JVD s1s2 no murmurs lungs clear abdomen soft no organomegaly no edema no cyanosis Lab / Micro Data 01/13/24 05:11 01/13/24 05:11 Labs: Laboratory Results - last 24 hr 01/12/24 17:23: Random Vancomycin 27.3 H 01/13/24 05:11: WBC 8.2, RBC 4.05 L, Hgb 11.2 L, Hct 36.5 L, MCV 90.1, MCH 27.7, MCHC 30.7 L, RDW Std Deviation 49.5 H, RDW Coeff of Alfie 15.0 H, Plt Count 231, MPV 10.4, Immature Gran % (Auto) 0.400, Neut % (Auto) 76.5 H, Lymph % (Auto) 9.9 L, [place] % (Auto) 10.2 H, Eos % (Auto) 2.6, Baso % (Auto) 0.4, Absolute Neuts (auto) 6.3, Absolute Lymphs (auto) 0.81 L, Nucleated RBC % 0, Sodium 141, Potassium 3.9, Chloride 110 H, Carbon Dioxide 28.0, Anion Gap 3 L, BUN 22 H, Creatinine 2.55 H, Estim Creat Clear Calc 20.99, Est GFR (MDRD) Af Amer 24 L, Est GFR (MDRD) Non-Af 20 L, BUN/Creatinine Ratio 8.6 L, Glucose 99, Calcium 9.0 Micro: Microbiology 01/10/24 10:02 Wound - Toe Gram Stain - Final 01/10/24 10:02 Wound - Toe Wound Culture - Preliminary Staphylococcus simulans Gram positive reji 01/10/24 10:02 Wound - Toe Anaerobic Culture - Preliminary Checking for anaerobes, further studies to follow. 01/10/24 10:07 Wound - Toe Gram Stain - Final 01/10/24 10:07 Wound - Toe Wound Culture - Preliminary Raoultella planticola Imaging Radiology Impression Extremity Arterial Study 01/08/24 20:28 Interpretation Summary Right ALEIDA 0.98, mild arterial insufficiency. TBI and Doppler/PVR waveforms of the right leg normal at rest Left ALEIDA 0.44, normal. Doppler/PVR waveforms and segmental pressures reveal [id number] femoral disease. Ordering Physician: Gareth Camacho Referring Physician: Vincent Ashley Performed By: RAMON HUMPHREY Sandra
[2024-01-13 11:21] LABS: Bacteria RARE /hpf (None Seen); Red Blood Cells-Urine 0-5 SEEN /hpf (0-5); Squamous Epithelial Cells - UA 0-5 SEEN /hpf (5-10); White Blood Cells 0-5 SEEN /hpf (0-5); Yeast-Urine RARE /hpf (None Seen)
[2024-01-13 11:31] LABS: Urine Sodium 83 mmol/L (Not Establ.)
--- NOTE | 2024-01-13 11:45 | CASEMGMT ---
RN CM to pt room at this time. Pt states that she is still wanting to DC home at time of DC. Pt refuses the need of HHC or OP therapy at this time. Pt states that she is still wanting a walker and BSC at home. A verbal list of local in network DME providers given to the pt and the pt chose [facility] for DME. [facility] Referral saved at this time, not sent d/t unknown DC date/ time. DME Rx placed in pt chart.
[2024-01-13 13:09] LABS: Vancomycin, Random Level 21.9 ug/mL (0.0-15.0)
--- NOTE | 2024-01-13 14:20 | PCM.RX.CS ---
Consult Antibiotic Management Pharmacy has been consulted to manage selected antibiotic: Vancomycin Type of Intervention Type of Consult: Follow-up Prior Doses of Antibiotics Prior Doses of Antibiotics Received/Current Regimen: Trough has been high therefore not currently on a scheduled dose. Labs Labs: Sodium 141 mmol/L (136-145) 01/13/24 05:11 Potassium 3.9 mmol/L (3.5-5.1) 01/13/24 05:11 Chloride 110 mmol/L (98-107) H 01/13/24 05:11 Carbon Dioxide 28.0 mmol/L (21.0-32.0) 01/13/24 05:11 Anion Gap 3 (5-15) L 01/13/24 05:11 BUN 22 mg/dL (7-18) H 01/13/24 05:11 Creatinine 2.55 mg/dL (0.55-1.02) H 01/13/24 05:11 Est GFR (MDRD) Af Amer 24 mL/min (>60) L 01/13/24 05:11 Est GFR (MDRD) Non-Af 20 mL/min (>60) L 01/13/24 05:11 BUN/Creatinine Ratio 8.6 RATIO (10-20) L 01/13/24 05:11 Glucose 99 mg/dL (74-106) 01/13/24 05:11 Vancomycin Trough 35.2 ug/mL (5.0-15.0) H 01/12/24 03:29 Random Vancomycin 21.9 ug/mL (0.0-15.0) H 01/13/24 12:15 Microbiology Microbiology: Microbiology 01/10/24 10:02 Wound - Toe Gram Stain - Final 01/10/24 10:02 Wound - Toe Wound Culture - Preliminary Staphylococcus simulans Gram positive reji 01/10/24 10:02 Wound - Toe Anaerobic Culture - Preliminary Checking for anaerobes, further studies to follow. 01/10/24 10:07 Wound - Toe Gram Stain - Final 01/10/24 10:07 Wound - Toe Wound Culture - Preliminary Raoultella planticola 01/08/24 15:50 Blood Culture (Wb) - Anticubital Right Blood Culture - Final No growth. 01/08/24 15:35 Blood Culture (Wb) - Anticubital Left Blood Culture - Preliminary No growth in 48 hours. Dosing Weight Weight used for dosin kg Estimated Creatinine Clearance Estimated Creatinine Clearance: 21ml/min Goal Trough Goal Trough: 15-20 mcg/mL Pharmacy Plan for Drug Dosing Pharmacy Plan for Drug Dosing: Today's random level was still elevated at 21.9 (~43 hrs post dose), but down from yesterday at 27.3. Renal function worsened with Cr from 1.84 to 2.55. Patient not on any scheduled vancomycin at this time. New random level ordered for tonight 12hrs after last one. Pharmacy Service will continue to monitor and adjust dosing as required. Follow-Up Labs Follow-Up Labs: Trough: Other (random level 2.29.24 @0000)
[2024-01-13] MEDS: 0.9% Normal Saline (1000mL) 1,000 ML 15 ML IV (15:34)
[2024-01-13] MEDS: Bupivacaine Mpf 0.5% 30 ML VIAL (17:07)
--- NOTE | 2024-01-13 17:27 | PCM.OPRPT ---
Problems Associated Problem List Diagnoses (1) Osteomyelitis: (2) Gangrene: (3) Atherosclerosis of [place] arteries of extremities with gangrene, left leg: Report of Operation Date of Procedure: 01/13/24 Pre-Operative Diagnosis: 1. Osteomyelitis, fourth digit, left foot status post incision bone cortex 2. Dry gangrene, fourth digit, left foot 3. Peripheral vascular disease, left lower extremity Post-Operative Diagnosis: 1. Osteomyelitis, fourth digit, left foot status post incision bone cortex 2. Dry gangrene, fourth digit, left foot 3. Peripheral vascular disease, left lower extremity Surgery/Procedure Performed:: 1. Delayed primary closure, left foot Description of Surgical Findings:: 1. Evidence of granular tissue appreciated to the left foot incision. 2. Minimal drainage appreciated after washout with warm normal saline. 3. Complete delayed primary closure of the previous incision at the level of the amputated fourth digit, left foot Surgeon: Gareth Camacho p 3 armament/ordnance ima technician: None Type of Anesthesia: General and Local Anesthesiologist: Nigel Lovett Special Medications: Per anesthesia Specimen's removed: None Drains: None Estimated Blood Loss (mL): 5 mL Fluids Replaced: Per anesthesia Description of Procedure: Indications For Operation: Mrs. Macedo is a 68-year-old female who was admitted to [facility] for worsening wet gangrene to the left fourth digit. Patient was initially seen and taken to the operating room to perform incision of bone cortex to the left fourth digit left open for delayed primary closure that was personal performed today. Patient had LEAS which shows evidence of arterial iliac common femoral disease with a left ALEIDA 0.44 and a right ALEIDA of 0.98, patient is currently being seen by vascular for planned intervention . Due to clearing of the patient's infection to the left lower extremity and planned intervention this by vascular surgery, it has deemed necessary at this time to take the patient to the operating room and to perform delayed primary closure to the open incision to the left foot. The nature of the problem, anticipated procedures, postop recovery/convalences and risk/complications include but not limited to infection, wound healing complications, digital amputation, hypertrophic scarring, numbness, tingling, chronic pain, CRPS, over and under correction, recurrence of deformity, DVT and or PE and the need for further surgery have been discussed in great detail with the patient. All questions have been answered to the patient's satisfaction. There are no guarantees given as to the outcome of the procedure. Description of Procedure: Under mild sedation, the patient was brought into the operating room and placed on the operating table in supine position. Once the patient was under general anesthesia with laryngeal mask airway, the left lower extremity was blocked using approximately 20 cc 0.5% Marcaine plain. No tourniquet was used for this case. Next, the left lower extremity was prepped and draped in normal aseptic manner. Next, a timeout was then undertaken verifying the correct patient, extremity, visibility of preoperative markings, availability of the equipment. Procedure #1, delayed primary closure, left foot Next, attention was directed to the left lower extremity at the level of the open incision along the fourth ray of the left foot. The incision was flushed with copious elba of warm normal saline. There showed evidence of sanguinous drainage approximately 5 mL. A application of 250 mg of axio fill was placed in the incision. The deep layer was reapproximated and closed using 3-0 Vicryl in running suture technique. The skin was reapproximated and closed using 3-0 nylon in simple interrupted suture technique. The left lower extremity was wiped clean and patted dry. The incision was dressed with Betadine soaked Adaptic, dry sterile dressing and a light single layer Cobb compression bandage was placed on the left lower extremity. The patient tolerated the procedure and anesthesia well and apparent satisfactory condition and was transported to the PACU for further monitoring prior to discharge back to the floor. Vital signs stable and vascular status intact to all digits bilateral. Post Operative Plan: Weightbearing: Partial weightbearing to heel to left lower extremity with assistance of walker, knee scooter or crutches. Full weightbearing right lower extremity Antibiotics: IV antibiotics on the floor DVT Prophylaxis: SCDs, ambulation Morse: None Dressing: Betadine soaked Adaptic, dry sterile dressing, single layer Cobb compression bandage Pain Medication: Tylenol 1000 mg, oxycodone 5 mg as needed Follow-up: Patient is cleared from a podiatry perspective to discharge home. Patient will need to be cleared by medicine and vascular team prior to discharge. Patient will be partial weightbearing to left heel with assistance of walker and/or knee scooter. Patient can be full weightbearing to right lower extremity. Patient will follow-up with Dr. Camacho 1 week post discharge on Thursday at the wound care center at [facility]. Grafts/Implants Used: 250 mg axiofill Complications None Admit VTE Documentation VTE Present on Admission: No VTE Mechan Device Prophylaxis: SCD's VTE Pharm Prophylaxis ordered?: Yes
[2024-01-13] MEDS: metroNIDAZOLE 500 MG Tablet PO (21:07)
[2024-01-13] MEDS: Atorvastatin Calcium 20 MG Tablet PO (21:07)
[2024-01-14] VITALS (16 sets, daily range): BP systolic 116–184; BP diastolic 62–110; PULSE 95–138; RESP 16–31; TEMP 36.9–37.4; O2SAT 92–97
[2024-01-14 00:53] LABS: Vancomycin, Random Level 18.5 ug/mL (0.0-15.0)
[2024-01-14] MEDS: Morphine 2 MG/ML Syringe IV ×2 (02:55→05:45)
[2024-01-14 06:47] LABS: Absolute Lymphocyte Count 0.92 X10^3/uL (0.83-4.51); Absolute Neutrophil Count 6.5 X10^3/uL (2.0-7.7); Basophil# 0.04 X10^3/uL; Basophil% 0.5 % (0-1); Eosinophil# 0.18 X10^3/uL; Eosinophils% 2.1 % (0-5); Hematocrit 35.1 % (37-47); Hemoglobin 10.7 g/dL (12.0-15.0); Lymphocyte # 0.92 X10^3/ul (0.83-4.51); Lymphocyte % 10.9 % (19-41); Mean Corp Hgb Conc 30.5 g/dL (32-36); Mean Corpuscular Hgb 27.4 pg (27.0-32.0); Mean Corpuscular Volume 89.8 fL (81-99); Mean Platelet Vol. 10.4 fl (6.2-12.0); Monocyte# 0.77 X10^3/uL; Monocyte% 9.2 % (0-10); NRBC Flagged by Analyzer 0 % (0-5); Neutrophil # 6.47 X10^3/uL (2.7-7.7); Neutrophil % 76.9 % (47-70); Platelet Count 246 K/mm3 (150-450); RBC Distribution Width SD 49.3 fl (35.1-43.9); Red Blood Count 3.91 M/mm3 (4.2-5.4); White Blood Count 8.4 K/mm3 (4.4-11.0)
--- NOTE | 2024-01-14 06:53 | PN.HOSP_ITS ---
Subjective Subjective Left foot is sore . No other complaints. Objective Data Objective Data Vital Signs: Vital Signs Temp Pulse Resp BP Pulse Ox O2 Del Method O2 Flow Rate 36.9 C 115 H 18 118/68 93 Nasal Cannula 3 01/13/24 21:09 01/13/24 21:09 01/13/24 21:09 01/13/24 21:09 01/13/24 21:09 01/13/24 21:09 01/13/24 21:09 Oxygen Flow Rate (L/min) 3 Oxygen Delivery Method Nasal Cannula Weight: 78 kg Body Mass Index (BMI) 31.4 Intake & Output: Intake and Output for Last 24 Hours 01/12/24 01/13/24 01/14/24 23:59 23:59 23:59 Intake Total 1150.0 / 1150.0 50 / 750 700 / 700 Balance 1150.0 / 1150.0 50 / 750 700 / 700 Lab / Micro Data 01/14/24 06:10 01/14/24 06:10 Labs: Laboratory Results - last 24 hr 01/13/24 10:45: Urine Color Yellow, Urine Clarity Sl. Cloudy, Urine pH 6.5, Ur Specific [place] 1.010, Urine Protein Negative, Urine Glucose (UA) Normal, Urine Ketones 5 H, Urine Occult Blood 25 H, Urine Nitrite Negative, Urine Bilirubin Negative, Urine Urobilinogen Normal, Ur Leukocyte Esterase Negative, Urine RBC 0-5 SEEN, Urine WBC 0-5 SEEN, Ur Squamous Epith Cells 0-5 SEEN, Urine Bacteria RARE, Urine Mucus 0 SEEN, Urine Yeast RARE, Ur Random Sodium 83, Urine Creatinine 26.60 01/13/24 12:15: Random Vancomycin 21.9 H 01/14/24 00:17: Random Vancomycin 18.5 H 01/14/24 06:10: WBC 8.4, RBC 3.91 L, Hgb 10.7 L, Hct 35.1 L, MCV 89.8, MCH 27.4, MCHC 30.5 L, RDW Std Deviation 49.3 H, RDW Coeff of Alfie 15.0 H, Plt Count 246, MPV 10.4, Immature Gran % (Auto) 0.400, Neut % (Auto) 76.9 H, Lymph % (Auto) 10.9 L, [place] % (Auto) 9.2, Eos % (Auto) 2.1, Baso % (Auto) 0.5, Absolute Neuts ( auto) 6.5, Absolute Lymphs (auto) 0.92, Nucleated RBC % 0 Micro: Microbiology 01/08/24 15:35 Blood Culture (Wb) - Anticubital Left Blood Culture - Final No growth in 5 days. 01/10/24 10:02 Wound - Toe Gram Stain - Final 01/10/24 10:02 Wound - Toe Wound Culture - Preliminary Staphylococcus simulans Gram positive reji 01/10/24 10:02 Wound - Toe Anaerobic Culture - Preliminary Checking for anaerobes, further studies to follow. 01/10/24 10:07 Wound - Toe Gram Stain - Final 01/10/24 10:07 Wound - Toe Wound Culture - Preliminary Raoultella planticola 01/08/24 15:50 Blood Culture (Wb) - Anticubital Right Blood Culture - Final No growth. Radiography Diagnostic Testing: Radiology Impression Renal Ultrasound 01/13/24 07:14 IMPRESSION: Mild left hydronephrosis of uncertain etiology Sonographically normal right kidney and bladder Electronically Signed: Graham Villalobos MD at 14:18 EST , Physical Exam Const alert and no apparent distress HEENT head/scalp atraumatic and moist oral mucous membranes Resp normal respiratory effort, no retractions, no use of accessory muscles and clear to auscultation bilaterally Cardio regular rate, regular rhythm, S1 normal heart sound and S2 normal heart sound GI normal to inspection, nondistended, normoactive bowel sounds, soft to palpation and non-tender Neuro Sensorium / Orientation: awake and alert Assessment & Plan Assessment/Plan (1) Gangrene: PLAN: Plan Left fourth toe gangrene * Left fourth toe black and gangrenous appearing on admission, per patient had been this way for 1 to 2 weeks. * Foot x-ray on admit within normal limits. * I+D performed on 01/10, evidence of necrotic bone to fourth digit with malodor and scant purulent drainage noted.4th digit on left remove removed. Delayed closure on 01/13. * Continue broad-spectrum antibiotics for now, follow-up cultures. ID consult * Vascular surgery consulted per podiatry recs. * Per podiatry, planning for second procedure for delayed closure and washout on 01/13 * Wound culture growing out Staph simulans and another culture growing out Raoultella planticola * On ceftriaxone and metronidazole. (vancomycin discontinued 01/13). Peripheral vascular disease with history of stenting * follows with Dr. Kwong at [place] * Vascular surgery here consulted as noted above. Continue home aspirin, statin, cilostazol. Clopidogrel currently held. * Angiography with percutaneous mechanical thrombectomy/atherectomy for MELLY * Improving from peak of to 2.55 (baseline around 0.84). Did receive IVF on 01/12. * US showed mild left hydronephrosis. FENa 5.64%. * Nephrology input appreciated: suspecting ATN due to vancomycin v underlying infection (sepsis not present) v GN Chronic conditions: * COPD? Continue home inhalers. Incentive spirometry at bedside. * Hypertension? Continue home amlodipine. * Tobacco use? Former user. Advised continued cessation. DVT prophylaxis: SCDs CODE STATUS: Full code, verified Expected disposition: TBD Charges/Coding Visit Charges Inpatient E&M: 97236 Subs Hosp L2
[2024-01-14 07:00] LABS: Anion Gap 3 (5-15); BUN 21 mg/dL (7-18); BUN/Creat Ratio 9.7 RATIO (10-20); Calcium,Total 8.6 mg/dL (8.5-10.1); Chloride 111 mmol/L (98-107); Creatinine, Serum 2.17 mg/dL (0.55-1.02); EST Glomerular Filtration Rate 24 mL/min (>60); Est Glom Filt Rate - Afr Amer 29 mL/min (>60); Estimated Creatinine Clearance 24.66 ml/min; Glucose 105 mg/dL (74-106); Potassium 3.9 mmol/L (3.5-5.1); Sodium Level 141 mmol/L (136-145)
[2024-01-14] MEDS: Budesonide Respules 0.5 MG/2 ML AMPUL.NEB. INHALATION ×2 (07:00→20:00)
[2024-01-14] MEDS: Albuterol 2.5 MG/3 ML VIAL.NEB. INHALATION ×2 (07:00→20:00)
--- NOTE | 2024-01-14 08:53 | PCM.PN.SRG ---
Subjective Subjective Patient is seen resting comfortably in bed with family member at bedside. She had delayed primary closure of her L 4th digit amputation. She reports this went well and she is feeling good this morning. She has been NPO since midnight. Objective Data Objective Data Vital Signs: Vital Signs Temp Pulse Resp BP Pulse Ox O2 Del Method O2 Flow Rate 98.6 F 95 16 129/72 H 93 Nasal Cannula 3 01/14/24 02:50 01/14/24 07:00 01/14/24 07:00 01/14/24 02:50 01/14/24 07:00 01/14/24 07:00 01/14/24 07:00 Oxygen Flow Rate (L/min) 3 Oxygen Delivery Method Nasal Cannula Weight: 171 lb 15.369 oz Body Mass Index (BMI) 31.4 Intake & Output: Intake and Output for Last 24 Hours 01/12/24 01/13/24 01/14/24 23:59 23:59 23:59 Intake Total 1150.0 / 1150.0 50 / 750 800 / 800 Balance 1150.0 / 1150.0 50 / 750 800 / 800 Lab / Micro Data 01/14/24 06:10 01/14/24 06:10 Labs: Laboratory Results - last 24 hr 01/13/24 10:45: Urine Color Yellow, Urine Clarity Sl. Cloudy, Urine pH 6.5, Ur Specific [place] 1.010, Urine Protein Negative, Urine Glucose (UA) Normal, Urine Ketones 5 H, Urine Occult Blood 25 H, Urine Nitrite Negative, Urine Bilirubin Negative, Urine Urobilinogen Normal, Ur Leukocyte Esterase Negative, Urine RBC 0-5 SEEN, Urine WBC 0-5 SEEN, Ur Squamous Epith Cells 0-5 SEEN, Urine Bacteria RARE, Urine Mucus 0 SEEN, Urine Yeast RARE, Ur Random Sodium 83, Urine Creatinine 26.60 01/13/24 12:15: Random Vancomycin 21.9 H 01/14/24 00:17: Random Vancomycin 18.5 H 01/14/24 06:10: WBC 8.4, RBC 3.91 L, Hgb 10.7 L, Hct 35.1 L, MCV 89.8, MCH 27.4, MCHC 30.5 L, RDW Std Deviation 49.3 H, RDW Coeff of Alfie 15.0 H, Plt Count 246, MPV 10.4, Immature Gran % (Auto) 0.400, Neut % (Auto) 76.9 H, Lymph % (Auto) 10.9 L, [place] % (Auto) 9.2, Eos % (Auto) 2.1, Baso % (Auto) 0.5, Absolute Neuts (auto) 6.5, Absolute Lymphs (auto) 0.92, Nucleated RBC % 0, Sodium 141, Potassium 3.9, Chloride 111 H, Carbon Dioxide 27.0, Anion Gap 3 L, BUN 21 H, Creatinine 2.17 H, Estim Creat Clear Calc 24.66, Est GFR (MDRD) Af Amer 29 L, Est GFR (MDRD) Non-Af 24 L, BUN/Creatinine Ratio 9.7 L, Glucose 105, Calcium 8.6 Micro: Microbiology 01/10/24 10:07 Wound - Toe Gram Stain - Final 01/10/24 10:07 Wound - Toe Wound Culture - Preliminary Raoultella planticola 01/10/24 10:07 Wound - Toe Anaerobic Culture - Final No anaerobic bacteria isolated. 01/10/24 10:02 Wound - Toe Gram Stain - Final 01/10/24 10:02 Wound - Toe Wound Culture - Preliminary Staphylococcus simulans Gram positive reji 01/10/24 10:02 Wound - Toe Anaerobic Culture - Final No anaerobic bacteria isolated. 01/08/24 15:50 Blood Culture (Wb) - Anticubital Right Blood Culture - Final No growth in 5 days. 01/08/24 15:35 Blood Culture (Wb) - Anticubital Left Blood Culture - Final No growth in 5 days. Radiography Diagnostic Testing: Radiology Impression Toe X-Ray 01/10/24 06:45 IMPRESSION: Fluoroscopy during amputation of the fourth digit. Electronically Signed: Vincent Patel MD at 13:41 EST , Renal Ultrasound 01/13/24 07:14 IMPRESSION: Mild left hydronephrosis of uncertain etiology Sonographically normal right kidney and bladder Electronically Signed: Graham Villalobos MD at 14:18 EST , Physical Exam Const alert, oriented x3 and no apparent distress General Appearance: cooperative Exam Limitations: no limitations HEENT Head and Scalp: normocephalic and atraumatic Eyes EOMs intact bilaterally General Eye: normal appearance of both eyes Neck full ROM General: trachea midline Resp normal respiratory effort and no use of accessory muscles Effort and Inspection: Negative for labored, stridor or audible wheezes Cardio regular rate and regular rhythm Extremity full ROM Extremity Narrative: LLE postoperative dressings C/D/I Skin no rashes or lesions noted Neuro oriented x3, CN's II-XII intact bilaterally, no focal motor deficits and no sensory deficits noted Psych thought process normal, cooperative, affect normal, speech normal and activity/motor behavior normal Assessment & Plan Assessment/Plan (1) Atherosclerosis of [place] arteries of extremities with gangrene, left leg: PLAN: She is scheduled for LLE angio with percutaneous mechanical thrombectomy/atherectomy today around noon. We again discussed the procedure including risks, benefits, and recovery and she remains agreeable to proceed. All questions/concerns were addressed. Continue ASA, Plavix.
[2024-01-14] MEDS: Ceftriaxone 2 GM in 0.9% Normal Saline (50mL MB+) 50 ML IV (09:21)
--- NOTE | 2024-01-14 10:27 | PCM.PN.ID ---
Physical Exam Narrative Feeling ok, no fever, no n/v/d. Mild pain in foot. Const alert and no apparent distress Resp normal air movement and clear to auscultation bilaterally Cardio regular rate and regular rhythm GI soft to palpation, non-tender and non-distended Skin no rashes or lesions noted ID ID: Route of nutrition/ use of supplements: [] Nutritional Intake: [] IV Site: [] Morse Catheter: [] Assessment & Plan Assessment/Plan (1) Osteomyelitis: QUALIFIERS: Osteomyelitis location: foot Laterality: left (2) Gangrene: PLAN: Taken to OR 01/10/[address] Camacho for L 4th toe amputation. Surg cx showing raoultella, MS-CoNS, and GPR. New MELLY, changed zosyn to ceftriaxone/flagyl. Taken for closure 01/13/24. Angio planned for today. Final path still pending. Ok for discharge home on one week po augmentin, will need dosing based on GFR. MELLY improved. If path shows residual osteo, will need abx extended as an outpt. Will follow (3) Peripheral arterial occlusive disease:
--- NOTE | 2024-01-14 10:31 | PCM.PN.REN ---
Subjective Subjective Sitting in chair. No complaints. Objective Data Objective Data Vital Signs: Vital Signs Temp Pulse Resp BP Pulse Ox O2 Del Method O2 Flow Rate 99.4 F H 111 H 18 130/84 H 93 Nasal Cannula 3 01/14/24 08:00 01/14/24 08:00 01/14/24 08:00 01/14/24 08:00 01/14/24 08:00 01/14/24 08:00 01/14/24 08:00 Oxygen Flow Rate (L/min) 3 Oxygen Delivery Method Nasal Cannula Weight: 78 kg Body Mass Index (BMI) 31.4 Intake & Output: Intake and Output for Last 24 Hours 01/12/24 01/13/24 01/14/24 23:59 23:59 23:59 Intake Total 1150.0 / 1150.0 50 / 750 850 / 850 Balance 1150.0 / 1150.0 50 / 750 850 / 850 Lab / Micro Data 01/14/24 06:10 01/14/24 06:10 Labs: Laboratory Results - last 24 hr 01/13/24 10:45: Urine Color Yellow, Urine Clarity Sl. Cloudy, Urine pH 6.5, Ur Specific [place] 1.010, Urine Protein Negative, Urine Glucose (UA) Normal, Urine Ketones 5 H, Urine Occult Blood 25 H, Urine Nitrite Negative, Urine Bilirubin Negative, Urine Urobilinogen Normal, Ur Leukocyte Esterase Negative, Urine RBC 0-5 SEEN, Urine WBC 0-5 SEEN, Ur Squamous Epith Cells 0-5 SEEN, Urine Bacteria RARE, Urine Mucus 0 SEEN, Urine Yeast RARE, Ur Random Sodium 83, Urine Creatinine 26.60 01/13/24 12:15: Random Vancomycin 21.9 H 01/14/24 00:17: Random Vancomycin 18.5 H 01/14/24 06:10: WBC 8.4, RBC 3.91 L, Hgb 10.7 L, Hct 35.1 L, MCV 89.8, MCH 27.4, MCHC 30.5 L, RDW Std Deviation 49.3 H, RDW Coeff of Alfie 15.0 H, Plt Count 246, MPV 10.4, Immature Gran % (Auto) 0.400, Neut % (Auto) 76.9 H, Lymph % (Auto) 10.9 L, [place] % (Auto) 9.2, Eos % (Auto) 2.1, Baso % (Auto) 0.5, Absolute Neuts (auto) 6.5, Absolute Lymphs (auto) 0.92, Nucleated RBC % 0, Sodium 141, Potassium 3.9, Chloride 111 H, Carbon Dioxide 27.0, Anion Gap 3 L, BUN 21 H, Creatinine 2.17 H, Estim Creat Clear Calc 24.66, Est GFR (MDRD) Af Amer 29 L, Est GFR (MDRD) Non-Af 24 L, BUN/Creatinine Ratio 9.7 L, Glucose 105, Calcium 8.6 Micro: Microbiology 01/10/24 10:07 Wound - Toe Gram Stain - Final 01/10/24 10:07 Wound - Toe Wound Culture - Preliminary Raoultella planticola 01/10/24 10:07 Wound - Toe Anaerobic Culture - Final No anaerobic bacteria isolated. 01/10/24 10:02 Wound - Toe Gram Stain - Final 01/10/24 10:02 Wound - Toe Wound Culture - Preliminary Staphylococcus simulans Gram positive reji 01/10/24 10:02 Wound - Toe Anaerobic Culture - Final No anaerobic bacteria isolated. 01/08/24 15:50 Blood Culture (Wb) - Anticubital Right Blood Culture - Final No growth in 5 days. 01/08/24 15:35 Blood Culture (Wb) - Anticubital Left Blood Culture - Final No growth in 5 days. Radiography Diagnostic Testing: Radiology Impression Toe X-Ray 01/10/24 06:45 IMPRESSION: Fluoroscopy during amputation of the fourth digit. Electronically Signed: Vincent Patel MD at 13:41 EST , Renal Ultrasound 01/13/24 07:14 IMPRESSION: Mild left hydronephrosis of uncertain etiology Sonographically normal right kidney and bladder Electronically Signed: Graham Villalobos MD at 14:18 EST , Physical Exam Narrative Alert awake oriented x 3 no obvious distress s1s2 no murmurs lungs clear abdomen soft no edema Assessment & Plan Assessment/Plan (1) MELLY (acute kidney injury): PLAN: Baseline creatinine was normal, close to baseline up until 2 days ago. Scr increased over past few days, peaked 2.55 yesterday and today improved 2.17. Good urine output. Potassium and bicarb normal. No acute indication for ARTIST CONSULTANT. Will continue to follow labs. BPs acceptable. No obstructive symptoms. No contrasted studies. She has been on vancomycin and there was a trough which was elevated. Other medications reviewed. Differential include vancomycin induced ATN versus sepsis induced ATN versus postinfectious glomerulonephritis. Renal ultrasound no hydro right kidney, mild hydro left kidney UA negative protein 25 occult blood, no leukocyte esterase.urine sodium 83. C3 level pending left foot osteo; antibiotics per ID. Off zosyn and vanco. On ceftriaxone and flagyl. To have LLE angio today
--- NOTE | 2024-01-14 14:23 | PCM.OPRPT ---
Report of Operation Date of Procedure: 01/14/24 Pre-Operative Diagnosis: atherosclerosis with gangrene left lower extremity Post-Operative Diagnosis: same Surgery/Procedure Performed:: aortogram IVUS aorta, left common/external iliac veins percutaneous thrombectomy left common/external iliac veins, left common femoral artery Description of Surgical Findings:: incomplete clearance of subacute and chronic thrombus Surgeon: Selvin Frost Type of Anesthesia: Local and Sedation,Conscious Description of Procedure: HPI: Patient is a 68-year-old female with previous bilateral common and external iliac artery stents. She has been doing well for several years and approximately 4 months ago she had return of her left leg claudication. Initially she did not seek any attention however she ultimately developed a left foot wound and pain at rest. She had outpatient CT scan which revealed total occlusion of her left common and external iliac artery stents. She is admitted now for treatment of her gangrenous foot and infection and taken for angiography to attempt to improve perfusion. Given the potentially mixed chronicity of thrombus and some restenosis is felt a Bard Rota Diogo may give our best opportunity for success. Description of procedure: Upon obtaining form consent and verification correct patient procedure site patient taken to the [facility] where she was positioned prepped and draped in usual fashion. Time was performed consultation administered Versed and fentanyl. Skin overlying the right common femoral artery was anesthetized 1% lidocaine vessel accessed under ultrasound guidance with micropuncture needle wire. This then exchanged for micropuncture sheath routine injection iliofemoral angiograms performed revealing satisfactory positioning and no extravasation dissection. Through the micropuncture sheath Bentson wire advanced into the abdominal aorta and the right short 6 Bahraini sheath. The 6 [place]raini sheath a 6 [place]raini LISSA guide and a Cook vanshie 4 catheter advanced and efforts were made to engage proximal extent of the occluded stent. Then both Bentson wire and stiff Glidewire we made efforts but were unable to progress the angulation and lack of support. Neck skin overlying the left common femoral artery anesthetized 1% lidocaine with micropuncture needle wire. This was exchanged for micropuncture sheath which was advanced into the inferior aspect of the stent. Patient was in heparinized obstacle for 3 minutes. Through the micropuncture sheath and dilator we advanced a command 18 wire and were able to successfully traverse the total occluded stent advancing the wire into the aorta. The micropuncture sheath and dilator then withdrawn and a quick cross catheter advanced over the wire traversing the stented segment and advanced into the aorta. Wires were withdrawn and injection aortogram was performed which confirmed position within true lumen. Through the quick cross catheter a stiff Glidewire was advanced in the catheter exchanged for a 6 [place] sheath which was advanced into the inferior aspect of the stent at the point of occlusion. Quick cross was then readvanced and the Glidewire exchanged for a command 18 wire. Intravascular shunt probe was then advanced over the wire and recorded pullback performed of the aorta, left common iliac, left external iliac artery. This revealed what appeared to be more consistent with stent thrombus with varying chronicity components with very limited visualized in-stent plaque or intimal hyperplasia. The ultrasound probe was then withdrawn and a BombBomb Rota Diogo atherectomy/thrombectomy device was advanced over the wire and engaged for multiple passes across the stented segment. Repeat angiography revealed minimal luminal gain and minimal contrast transit. Intravascular shunt probe was then readvanced and further assessment revealed that there were some segments that cleared in a satisfactory manner however there is a significant amount of luminal debris appearing both subacute and chronic thrombus in nature. We made efforts to reach the guidewire to change the lumen position of the device and then further efforts with the Rota Diogo were undertaken. The device was withdrawn and further angiogram and intravascular sound imaging was performed which did not reveal any improvement. It appears as if the Rota Diogo was tracking within the clear lumen only and that was not engaging in the remaining thrombus. The thought was that [employer] AngioJet may provide better forceful suction and clear any potentially embolic debris so this was then brought to field prep for director vaccine instructions. This then engaged across the lesion for a total of 80 seconds. Intravascular sound probe was readvanced and there was no improvement in flow lumen and no significant debulking of the intra stent thrombus. There was significant concern that any angioplasty or stenting would result in embolization and worsen her extremity perfusion situation. Is felt that she would better be served with a bypass rather than further endovascular efforts so minx closure devices were deployed followed by 5 minutes of manual pressure with satisfactory stasis noted. Patient was then taken to the recovery room with anticipated return to the [facility] floor.
[2024-01-14] MEDS: metroNIDAZOLE 500 MG Tablet PO ×2 (14:24→21:09)
[2024-01-14] MEDS: Acetaminophen 500 MG Tablet 1000 MG PO ×2 (14:24→21:08)
[2024-01-14 20:40] LABS: ACT Activated Clotting Time 228 sec (74-137)
[2024-01-14] MEDS: Atorvastatin Calcium 20 MG Tablet PO (21:09)
[2024-01-15] VITALS (12 sets, daily range): BP systolic 109–144; BP diastolic 68–87; PULSE 99–115; RESP 16–24; TEMP 36.7–37.3; O2SAT 87–97
[2024-01-15] MEDS: oxyCODONE 5 MG Tablet PO ×2 (01:55→14:29)
[2024-01-15 05:08] LABS: Complement C3 136 mg/dL (82-167)
[2024-01-15] MEDS: Cilostazol 50 MG Tablet PO (06:18)
[2024-01-15] MEDS: Acetaminophen 500 MG Tablet 1000 MG PO ×3 (06:18→22:13)
[2024-01-15] MEDS: metroNIDAZOLE 500 MG Tablet PO ×3 (06:18→22:13)
--- NOTE | 2024-01-15 07:11 | PN.HOSP_ITS ---
Subjective Subjective Feels well. No new events. Objective Data Objective Data Vital Signs: Vital Signs Temp Pulse Resp BP Pulse Ox O2 Del Method O2 Flow Rate 36.9 C 115 H 16 128/82 H 94 Nasal Cannula 4 01/15/24 04:31 01/15/24 04:31 01/15/24 04:31 01/15/24 04:31 01/15/24 06:20 01/15/24 06:20 01/15/24 06:20 Oxygen Flow Rate (L/min) 4 Oxygen Delivery Method Nasal Cannula Weight: 78 kg Body Mass Index (BMI) 31.4 Intake & Output: Intake and Output for Last 24 Hours 01/13/24 01/14/24 01/15/24 23:59 23:59 23:59 Intake Total 50 / 750 1535 / 1835 600 / 600 Balance 50 / 750 1535 / 1835 600 / 600 Lab / Micro Data 01/15/24 08:08 01/15/24 08:08 Labs: Laboratory Results - last 24 hr 01/14/24 06:10: Complement C3 136 01/14/24 12:39: Activated Clotting Time 228 H Micro: Microbiology 01/10/24 10:07 Wound - Toe Gram Stain - Final 01/10/24 10:07 Wound - Toe Wound Culture - Preliminary Raoultella planticola Gram Positive Cocci 01/10/24 10:07 Wound - Toe Anaerobic Culture - Final No anaerobic bacteria isolated. 01/10/24 10:02 Wound - Toe Gram Stain - Final 01/10/24 10:02 Wound - Toe Wound Culture - Preliminary Staphylococcus simulans Gram positive reji 01/10/24 10:02 Wound - Toe Anaerobic Culture - Final No anaerobic bacteria isolated. 01/08/24 15:50 Blood Culture (Wb) - Anticubital Right Blood Culture - Final No growth in 5 days. 01/08/24 15:35 Blood Culture (Wb) - Anticubital Left Blood Culture - Final No growth in 5 days. Radiography Diagnostic Testing: Radiology Impression Toe X-Ray 01/10/24 06:45 IMPRESSION: Fluoroscopy during amputation of the fourth digit. Electronically Signed: Vincent Patel MD at 13:41 EST , Physical Exam Cardio regular rate, regular rhythm, S1 normal heart sound and S2 normal heart sound GI normal to inspection, nondistended, normoactive bowel sounds, soft to palpation, non-tender and non-distended Extremity Extremity Narrative: left foot wrapped. Assessment & Plan Assessment/Plan (1) Gangrene: PLAN: Plan Left fourth toe gangrene * Left fourth toe black and gangrenous appearing on admission, per patient had been this way for 1 to 2 weeks. * Foot x-ray on admit within normal limits. * I+D performed on 01/10, evidence of necrotic bone to fourth digit with malodor and scant purulent drainage noted.4th digit on left remove removed. Delayed closure on 01/13. * Continue broad-spectrum antibiotics for now, follow-up cultures. ID consult * Vascular surgery consulted per podiatry recs. * Per podiatry, planning for second procedure for delayed closure and washout on 01/13 * Wound culture growing out Staph simulans and another culture growing out Raoultella planticola * On ceftriaxone and metronidazole. (vancomycin discontinued 01/13). * Per ID, plan for PO amox/CA. Peripheral vascular disease with history of stenting * follows with Dr. Kwong at [facility] * Vascular surgery here consulted as noted above. Continue home aspirin, statin, cilostazol. Clopidogrel currently held. * Angiography on had incomplete clearance of subacute and chronic thrombus. Plan for reattempt next week. * on anticoagulation. MELLY * Improving from peak of to 2.55 (baseline around 0.84). Did receive IVF on 01/12. * US showed mild left hydronephrosis. FENa 5.64%. * Nephrology input appreciated: suspecting ATN due to vancomycin v underlying i nfection (sepsis not present) v GN Chronic conditions: * COPD? Continue home inhalers. Incentive spirometry at bedside. * Hypertension? Continue home amlodipine. * Tobacco use? Former user. Advised continued cessation. DVT prophylaxis: SCDs CODE STATUS: Full code, verified Expected disposition: TBD Charges/Coding Visit Charges Inpatient E&M: 10072 Subs Hosp L2
[2024-01-15] MEDS: Albuterol 2.5 MG/3 ML VIAL.NEB. INHALATION ×3 (07:15→19:38)
[2024-01-15] MEDS: Budesonide Respules 0.5 MG/2 ML AMPUL.NEB. INHALATION ×2 (07:15→19:38)
--- NOTE | 2024-01-15 07:32 | ECHOD_ITS ---
Reason For Study: Pre Op Procedure This was a 2D Doppler, Color Flow transthoracic echocardiogram. Exam performed portable in patient room. Left Ventricle Normal LV size. The estimated ejection fraction is 60 %. No evidence for diastolic dysfunction. No regional wall motion abnormalities noted. Right Ventricle Normal RV size. Normal systolic function. Atria The left atrium is mildly enlarged. Normal right atrium. No doppler evidence for ASD. Mitral Valve There is no mitral valve stenosis. No mitral valve insufficiency. Tricuspid Valve There is no tricuspid stenosis. Unable to estimate RV systolic pressure due to inadequate jet, pulmonary artery pressure probably normal. Aortic Valve Trisinus/trileaflet aortic valve. There is no aortic stenosis. No aortic valve insufficiency. Pulmonic Valve There is no pulmonic valvular stenosis. No pulmonic valve insufficiency. Great Vessels Normal aortic root. Pericardium/Pleural No pericardial effusion. MMode/2D Measurements & Calculations LVIDd: 5.0 cm IVSd: 0.96 cm Ao root diam: 3.0 cm LVIDs: 2.8 cm LVPWd: 0.82 cm LA dimension: 4.2 cm RVDd: 3.6 cm FS: 43.6 % LAV(MOD-bp): 54.1 ml LA A4 area: 20.5 cm2 RA A4 area: 14.9 cm2 LAV(MOD-bp) Indexed: 30.2 ml/m2 LAV(MOD-sp2): 45.1 ml LAV(MOD-sp4): 58.1 ml TAPSE: 2.1 cm Time Measurements MV dec time: 0.16 sec Doppler Measurements & Calculations MV E max augusto: 90.0 cm/sec Lat Peak E' Augusto: 9.2 cm/sec Med Peak E' Augusto: 7.9 cm/sec MV A max augusto: 108.3 cm/sec E/E' lat: 9.7 E/E' med: 11.5 MV E/A: 0.83 MV V2 max: 121.4 cm/sec MV P1/2t max augusto: 111.2 cm/sec Ao V2 max: 166.2 cm/sec MV max P.9 mmHg MV P1/2t: 60.5 msec Ao max P.1 mmHg MV V2 mean: 81.4 cm/sec Ao V2 mean: 105.2 cm/sec MV mean P.0 mmHg MV dec slope: 538.5 cm/sec2 Ao mean P.2 mmHg MV V2 VTI: 23.7 cm MVA(P1/2t): 3.6 cm2 Ao V2 VTI: 31.5 cm AV (velocity ratio): 0.81 LV V1 max: 135.4 cm/sec PA V2 max: 73.9 cm/sec LV V1 max P.4 mmHg LV V1 mean P.5 mmHg LV V1 mean: 87.1 cm/sec LV V1 VTI: 25.5 cm ECHO/Echo Complete Interpretation Summary The estimated ejection fraction is 60 %. No evidence for diastolic dysfunction. The left atrium is mildly enlarged. Ordering Physician: Katie Retana Performed By: Christain Gillis RCS
[2024-01-15 08:47] LABS: Absolute Lymphocyte Count 0.79 X10^3/uL (0.83-4.51); Absolute Neutrophil Count 6.3 X10^3/uL (2.0-7.7); Basophil# 0.05 X10^3/uL; Basophil% 0.6 % (0-1); Eosinophil# 0.13 X10^3/uL; Eosinophils% 1.6 % (0-5); Hematocrit 31.6 % (37-47); Hemoglobin 9.9 g/dL (12.0-15.0); Lymphocyte # 0.79 X10^3/ul (0.83-4.51); Lymphocyte % 9.7 % (19-41); Mean Corp Hgb Conc 31.3 g/dL (32-36); Mean Corpuscular Hgb 28.2 pg (27.0-32.0); Mean Platelet Vol. 10.2 fl (6.2-12.0); Monocyte# 0.84 X10^3/uL; Monocyte% 10.3 % (0-10); NRBC Flagged by Analyzer 0 % (0-5); Neutrophil # 6.28 X10^3/uL (2.7-7.7); Neutrophil % 77.3 % (47-70); Platelet Count 226 K/mm3 (150-450); RBC Distribution Width CV 14.9 % (11.6-14.6); RBC Distribution Width SD 49.2 fl (35.1-43.9); Red Blood Count 3.51 M/mm3 (4.2-5.4); White Blood Count 8.1 K/mm3 (4.4-11.0)
[2024-01-15 08:59] LABS: Partial Thromboplast Time 31.3 Seconds (24.1-36.2)
[2024-01-15] MEDS: 0.9% Saline Lock 10 ML Syringe IV ×3 (09:15→16:02)
[2024-01-15] MEDS: Aspirin E.C. 81 MG Tablet PO (09:15)
[2024-01-15] MEDS: Ceftriaxone 2 GM in 0.9% Normal Saline (50mL MB+) 50 ML IV (09:16)
[2024-01-15] MEDS: amLODIPine 5 MG Tablet PO (09:16)
[2024-01-15 09:17] LABS: Anion Gap 4 (5-15); BUN 24 mg/dL (7-18); BUN/Creat Ratio 10.5 RATIO (10-20); Calcium,Total 8.6 mg/dL (8.5-10.1); Chloride 107 mmol/L (98-107); Creatinine, Serum 2.28 mg/dL (0.55-1.02); EST Glomerular Filtration Rate 23 mL/min (>60); Est Glom Filt Rate - Afr Amer 28 mL/min (>60); Estimated Creatinine Clearance 23.47 ml/min; Glucose 112 mg/dL (74-106); Potassium 3.7 mmol/L (3.5-5.1); Sodium Level 139 mmol/L (136-145)
[2024-01-15] MEDS: HEPARIN/D5w 25,000 UNITS 25,000 UNITS/250 ML IV.SOLN. 0.100000000000000006 UNITS CONT INF (10:07)
--- NOTE | 2024-01-15 15:44 | PRO.PCM_ITS ---
Procedure Report Date of Procedure: 01/15/24 Assessment & Plan Assessment/Plan (1) Osteomyelitis: QUALIFIERS: Osteomyelitis location: foot Laterality: left Osteomyelitis type: unspecified type Qualified Code(s): M86.9 - Osteomyelitis, unspecified Procedures Radiology Radiology Access Procedures: PICC Procedure Time Out Time Out Informed consent given: Yes Consent signed: Yes Time out checklist: patient, procedure, site marked/identified, positioning of patient, supplies available and allergies confirmed Time out verified: Yes Time out date: 01/15/24 Time out time: 14:45 PICC Line Consent Screening tool completed:: Yes Consent obtained:: Yes Consent given by (patient or responsible constitution party):: patient Line successful (if no, document why in comments):: Yes Insertion Reason for Insertion: Automated Teller Manager Medication Date of Insertion: 01/15/24 Ok to use: Yes Type of PICC inserted: Single Power PICC PICC Lot #: [id number] PICC Reference #: [id number] Microintroducer Used: Yes (in kit) Ultrasound/Equipment Used: Probe Cover Kit Trimmed Length (cm): 45 Insertion Length (cm): 44 Exposed Length (cm): 1 Tip Placement: Caval Atrial Junction Placement Confirmation: 3CG Insertion Vein: Right Basilic Insertion Attempts: 1 Local Anesthesia Used: Lidocaine 1% (in kit) Dressing Applied: Statlock and Tegaderm CHG Arm Measurement above site (in cm): 30 Patient Tolerated Procedure: Well Threading Difficulties: No Comments Comment: Patient identity was verified with two patient identifiers. Informed consent was obtained and time-out was completed. Hands were sanitized. The patient was positioned supine with right arm at 90 degrees. The patient's upper arm vasculature was assessed using ultrasound, and the right basilic vein was externally marked. An external measurement was obtained of 45 cm. External leads were applied to the patient's right upper chest and laterally and inferior of the umbilicus on the mid axillary line. Cap, mask, and prep gloves were donned. The underdrape was placed under the patient's arm. The site was prepped with chlorhexidine, and tourniquet was loosely applied. Prep gloves were discarded, and hands were sanitized. The sterile kit was opened with additional supplies dropped in. Sterile gown and gloves were donned, and the patient was draped. The sterile kit was assembled with all needle, introducer, connector, and catheter flushed with sterile normal saline. The marked site of insertion was anesthetized with 1% lidocaine. Patient tolerated well. The right basilic vein was then accessed using ultrasound guidance and guidewire was inserted to safety harsha. The tourniquet was released. The access needle was removed while securing the guidewire in place. The site was again anesthetized with 1% lidocaine, prior to insertion of introducer sheath and dilator. Patient tolerated well. The catheter was trimmed to a length of 45 cm. Using 3C guidance, the catheter was then inserted through the introducer sheath, slowly. There was no resistance on insertion. Maximal p-wave, without deflection, was obtained at an insertion length of 44 cm, leaving 1 cm external. The introducer sheath was retracted and peeled away, incrementally, while keeping the catheter secured. The stylet was removed. A flushed needleless connector was attached to the single-lumen. Blood return was verified and the lumen was flushed with sterile normal saline in a pulsatile fashion. Total sterile flushes used for the insertion was 4 10 ml syringes. Finally, the insertion site was cleaned with chlorhexidine, and the catheter was secured using a StatLock. The site was covered with a Tegaderm CHG Dressing. Baseline arm circumference was obtained at the insertion site and measured 30 cm. The patient was provided with a patient education handout on PICC line care and verbalized understanding of infection prevention, heavy lifting restriction, maintaining mobility, and watching for any signs of infection. Charge and primary nurse are aware that the PICC line is ready for use.
[2024-01-15] MEDS: 0.9 % NaCl (Sterile) Posiflush 10 mL IV (15:56)
--- NOTE | 2024-01-15 16:32 | PCM.PN.REN ---
Subjective Subjective no new events Objective Data Objective Data Vital Signs: Vital Signs Temp Pulse Resp BP Pulse Ox O2 Del Method O2 Flow Rate 98.7 F 109 H 18 132/73 H 96 Nasal Cannula 4 01/15/24 14:31 01/15/24 14:31 01/15/24 14:31 01/15/24 14:31 01/15/24 14:31 01/15/24 16:06 01/15/24 16:06 Oxygen Flow Rate (L/min) 4 Oxygen Delivery Method Nasal Cannula Weight: 78 kg Body Mass Index (BMI) 31.4 Intake & Output: Intake and Output for Last 24 Hours 01/13/24 01/14/24 01/15/24 23:59 23:59 23:59 Intake Total 50 / 750 1535 / 1835 1050 / 1050 Balance 50 / 750 1535 / 1835 1050 / 1050 Lab / Micro Data 01/15/24 08:08 01/15/24 08:08 Labs: Laboratory Results - last 24 hr 01/14/24 06:10: Complement C3 136 01/14/24 12:39: Activated Clotting Time 228 H 01/15/24 08:08: WBC 8.1, RBC 3.51 L, Hgb 9.9 L, Hct 31.6 L, MCV 90.0, MCH 28.2, MCHC 31.3 L, RDW Std Deviation 49.2 H, RDW Coeff of Alfie 14.9 H, Plt Count 226, MPV 10.2, Immature Gran % (Auto) 0.500, Neut % (Auto) 77.3 H, Lymph % (Auto) 9.7 L, [place] % (Auto) 10.3 H, Eos % (Auto) 1.6, Baso % (Auto) 0.6, Absolute Neuts (auto) 6.3, Absolute Lymphs (auto) 0.79 L, Nucleated RBC % 0, APTT 31.3, Sodium 139, Potassium 3.7, Chloride 107, Carbon Dioxide 28.0, Anion Gap 4 L, BUN 24 H, Creatinine 2.28 H, Estim Creat Clear Calc 23.47, Est GFR (MDRD) Af Amer 28 L, Est GFR (MDRD) Non-Af 23 L, BUN/Creatinine Ratio 10.5, Glucose 112 H, Calcium 8.6 Micro: Microbiology 01/10/24 10:07 Wound - Toe Gram Stain - Final 01/10/24 10:07 Wound - Toe Wound Culture - Preliminary Raoultella planticola Coag Negative Staph 01/10/24 10:07 Wound - Toe Anaerobic Culture - Final No anaerobic bacteria isolated. 01/10/24 10:02 Wound - Toe Gram Stain - Final 01/10/24 10:02 Wound - Toe Wound Culture - Final Staphylococcus simulans Corynebacterium amycolatum/xer 01/10/24 10:02 Wound - Toe Anaerobic Culture - Final No anaerobic bacteria isolated. 01/08/24 15:50 Blood Culture (Wb) - Anticubital Right Blood Culture - Final No growth in 5 days. 01/08/24 15:35 Blood Culture (Wb) - Anticubital Left Blood Culture - Final No growth in 5 days. Radiography Diagnostic Testing: Radiology Impression Echocardiogram 01/15/24 07:32 Interpretation Summary The estimated ejection fraction is 60 %. No evidence for diastolic dysfunction. The left atrium is mildly enlarged. Ordering Physician: Katie Retana Performed By: Christian Gillis RCS Physical Exam Narrative Alert awake oriented x 3 no obvious distress s1s2 no murmurs lungs clear abdomen soft no edema Assessment & Plan Assessment/Plan (1) MELLY (acute kidney injury): PLAN: Baseline creatinine was normal, close to baseline up until 2 days ago. Scr increased over past few days, peaked 2.55 and today improved 2.1. Good urine output. Potassium and bicarb normal. 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 Will continue to follow labs. BPs acceptable. No obstructive symptoms. No contrast studies. She has been on vancomycin and there was a trough which was elevated. Other medications reviewed. C3 normal likely ATN Renal ultrasound no hydro right kidney, mild hydro left kidney, bladder collapse, ureter collapsed, likely chronic UA negative protein 25 occult blood, no leukocyte esterase.urine sodium 83. left foot osteo; antibiotics per ID.
--- NOTE | 2024-01-15 16:36 | PCM.PN.SRG ---
Subjective Subjective Patient was seen resting comfortably in bed. She reports occasional shooting pain from the L foot. No excess discomfort at the groin access sites. She had PICC line placed today and reports tolerating this well. Kidney function is noted to be improving. She has no complaints. Objective Data Objective Data Vital Signs: Vital Signs Temp Pulse Resp BP Pulse Ox O2 Del Method O2 Flow Rate 98.7 F 109 H 18 132/73 H 96 Nasal Cannula 4 01/15/24 14:31 01/15/24 14:31 01/15/24 14:31 01/15/24 14:31 01/15/24 14:31 01/15/24 16:06 01/15/24 16:06 Oxygen Flow Rate (L/min) 4 Oxygen Delivery Method Nasal Cannula Weight: 171 lb 15.369 oz Body Mass Index (BMI) 31.4 Intake & Output: Intake and Output for Last 24 Hours 01/13/24 01/14/24 01/15/24 23:59 23:59 23:59 Intake Total 50 / 750 1535 / 1835 1050 / 1050 Balance 50 / 750 1535 / 1835 1050 / 1050 Lab / Micro Data 01/15/24 08:08 01/15/24 08:08 Labs: Laboratory Results - last 24 hr 01/14/24 06:10: Complement C3 136 01/14/24 12:39: Activated Clotting Time 228 H 01/15/24 08:08: WBC 8.1, RBC 3.51 L, Hgb 9.9 L, Hct 31.6 L, MCV 90.0, MCH 28.2, MCHC 31.3 L, RDW Std Deviation 49.2 H, RDW Coeff of Alfie 14.9 H, Plt Count 226, MPV 10.2, Immature Gran % (Auto) 0.500, Neut % (Auto) 77.3 H, Lymph % (Auto) 9.7 L, Nicholas % (Auto) 10.3 H, Eos % (Auto) 1.6, Baso % (Auto) 0.6, Absolute Neuts (auto) 6.3, Absolute Lymphs (auto) 0.79 L, Nucleated RBC % 0, APTT 31.3, Sodium 139, Potassium 3.7, Chloride 107, Carbon Dioxide 28.0, Anion Gap 4 L, BUN 24 H, Creatinine 2.28 H, Estim Creat Clear Calc 23.47, Est GFR (MDRD) Af Amer 28 L, Est GFR (MDRD) Non-Af 23 L, BUN/Creatinine Ratio 10.5, Glucose 112 H, Calcium 8.6 Micro: Microbiology 01/10/24 10:07 Wound - Toe Gram Stain - Final 01/10/24 10:07 Wound - Toe Wound Culture - Preliminary Raoultella planticola Coag Negative Staph 01/10/24 10:07 Wound - Toe Anaerobic Culture - Final No anaerobic bacteria isolated. 01/10/24 10:02 Wound - Toe Gram Stain - Final 01/10/24 10:02 Wound - Toe Wound Culture - Final Staphylococcus simulans Corynebacterium amycolatum/xer 01/10/24 10:02 Wound - Toe Anaerobic Culture - Final No anaerobic bacteria isolated. 01/08/24 15:50 Blood Culture (Wb) - Anticubital Right Blood Culture - Final No growth in 5 days. 01/08/24 15:35 Blood Culture (Wb) - Anticubital Left Blood Culture - Final No growth in 5 days. Radiography Diagnostic Testing: Radiology Impression Echocardiogram 01/15/24 07:32 Interpretation Summary The estimated ejection fraction is 60 %. No evidence for diastolic dysfunction. The left atrium is mildly enlarged. Ordering Physician: Katie Retana Performed By: Christian Gillis RCS Physical Exam Const alert, oriented x3 and no apparent distress General Appearance: cooperative Exam Limitations: no limitations HEENT Head and Scalp: normocephalic and atraumatic Eyes EOMs intact bilaterally General Eye: normal appearance of both eyes Neck full ROM General: trachea midline Resp normal respiratory effort and no use of accessory muscles Effort and Inspection: Negative for labored, stridor or audible wheezes Cardio regular rate and regular rhythm Extremity full ROM Extremity Narrative: LLE postoperative dressings C/D/I Bilateral groin access sites with dry dressings C/D/I, no focal swelling/hematoma or bleeding. Skin no rashes or lesions noted Neuro oriented x3, CN's II-XII intact bilaterally, no focal motor deficits and no sensory deficits noted Psych thought process normal, cooperative, affect normal, speech normal and activity/motor behavior normal Assessment & Plan Assessment/Plan (1) Atherosclerosis of [place] arteries of extremities with gangrene, left leg: PLAN: She is s/p LLE angiogram on 01/14/24. Angiogram revealed stent thrombus of varying chronicity in the left common and external iliac arteries vs in-stent plaque or intimal hyperplasia. Thrombectomy was attempted with two different devices limited success. Angioplasty/stenting was not pursued due to concern for potential embolization and subsequent worsening of her foot perfusion. For this reason, open bypass is recommended. This was discussed with the patient and she is agreeable to proceeding with open bypass. She is currently scheduled in the OR for this on 01/20. Preoperative echo was ordered. Given finding of thrombus on angiogram, initiated therapeutic heparin today to reduce risk of re-thrombosis prior to planned surgery. Hgb was noted to be 9.9 today prior to initiating heparin, will continue to monitor.
[2024-01-15 16:54] LABS: Partial Thromboplast Time 61.7 Seconds (24.1-36.2)
[2024-01-15] MEDS: Atorvastatin Calcium 20 MG Tablet PO (22:13)
[2024-01-15 22:41] LABS: Partial Thromboplast Time 82.2 Seconds (24.1-36.2)
--- NOTE | 2024-01-15 23:13 | NURSING ---
01/15/24 6477. hep gtt was running at 11ml/hr on the pump in pts room. it was documented wrong on jan per previous dayshift RN. PTT results were to decrease by 1ml/hr, so hep gtt at this time was decreased to run at 10ml/hr
[2024-01-16] VITALS (8 sets, daily range): BP systolic 136–162; BP diastolic 81–88; PULSE 99–111; RESP 16–20; TEMP 36.9–37.2; O2SAT 93–99
[2024-01-16] MEDS: Cilostazol 50 MG Tablet PO (05:25)
[2024-01-16] MEDS: metroNIDAZOLE 500 MG Tablet PO ×3 (05:25→23:00)
[2024-01-16] MEDS: HEPARIN/D5w 25,000 UNITS 25,000 UNITS/250 ML IV.SOLN. 10 UNITS CONT INF (05:27)
[2024-01-16 05:35] LABS: Partial Thromboplast Time 57.7 Seconds (24.1-36.2)
[2024-01-16 05:39] LABS: Anion Gap 4 (5-15); BUN 22 mg/dL (7-18); Calcium,Total 8.3 mg/dL (8.5-10.1); Chloride 109 mmol/L (98-107); Creatinine, Serum 2.21 mg/dL (0.55-1.02); EST Glomerular Filtration Rate 24 mL/min (>60); Est Glom Filt Rate - Afr Amer 29 mL/min (>60); Estimated Creatinine Clearance 24.22 ml/min; Glucose 106 mg/dL (74-106); Potassium 3.6 mmol/L (3.5-5.1); Sodium Level 139 mmol/L (136-145)
--- NOTE | 2024-01-16 07:00 | PN.HOSP_ITS ---
Reason for Visit Reason for Visit: Diagnoses Atherosclerosis of [place] arteries of extremities with gangrene, left leg (12/18 02/06) Disorder of arteries and arterioles, unspecified (01/08/24) Gangrene, not elsewhere classified (01/08/24) Osteomyelitis, unspecified (01/08/24) Acute kidney failure, unspecified (01/08/24) Subjective Subjective Having some diarrhea over the past several days. Objective Data Objective Data Vital Signs: Vital Signs Temp Pulse Resp BP Pulse Ox O2 Del Method O2 Flow Rate 36.9 C 99 18 144/88 H 94 Nasal Cannula 2 01/16/24 05:20 01/16/24 05:20 01/16/24 05:20 01/16/24 05:20 01/16/24 05:20 01/16/24 05:20 01/16/24 05:20 Oxygen Flow Rate (L/min) 2 Oxygen Delivery Method Nasal Cannula Weight: 78 kg Body Mass Index (BMI) 31.4 Intake & Output: Intake and Output for Last 24 Hours 01/14/24 01/15/24 01/16/24 23:59 23:59 23:59 Intake Total 1535 / 1835 2387.81 / 2387.81 64.50 / 64.50 Balance 1535 / 1835 2387.81 / 2387.81 64.50 / 64.50 Lab / Micro Data 01/15/24 08:08 01/16/24 05:17 Labs: Laboratory Results - last 24 hr 01/15/24 08:08: WBC 8.1, RBC 3.51 L, Hgb 9.9 L, Hct 31.6 L, MCV 90.0, MCH 28.2, MCHC 31.3 L, RDW Std Deviation 49.2 H, RDW Coeff of Alfie 14.9 H, Plt Count 226, MPV 10.2, Immature Gran % (Auto) 0.500, Neut % (Auto) 77.3 H, Lymph % (Auto) 9.7 L, [place] % (Auto) 10.3 H, Eos % (Auto) 1.6, Baso % (Auto) 0.6, Absolute Neuts (auto) 6.3, Absolute Lymphs (auto) 0.79 L, Nucleated RBC % 0, APTT 31.3, Sodium 139, Potassium 3.7, Chloride 107, Carbon Dioxide 28.0, Anion Gap 4 L, BUN 24 H, Creatinine 2.28 H, Estim Creat Clear Calc 23.47, Est GFR (MDRD) Af Amer 28 L, Est GFR (MDRD) Non-Af 23 L, BUN/Creatinine Ratio 10.5, Glucose 112 H, Calcium 8.6 01/15/24 16:10: APTT 61.7 H 01/15/24 22:00: APTT 82.2 H 01/16/24 05:17: APTT 57.7 H, Sodium 139, Potassium 3.6, Chloride 109 H, Carbon Dioxide 26.0, Anion Gap 4 L, BUN 22 H, Creatinine 2.21 H, Estim Creat Clear Calc 24.22, Est GFR (MDRD) Af Amer 29 L, Est GFR (MDRD) Non-Af 24 L, BUN/Creatinine Ratio 10.0, Glucose 106, Calcium 8.3 L Micro: Microbiology 01/10/24 10:07 Wound - Toe Gram Stain - Final 01/10/24 10:07 Wound - Toe Wound Culture - Preliminary Raoultella planticola Coag Negative Staph 01/10/24 10:07 Wound - Toe Anaerobic Culture - Final No anaerobic bacteria isolated. 01/10/24 10:02 Wound - Toe Gram Stain - Final 01/10/24 10:02 Wound - Toe Wound Culture - Final Staphylococcus simulans Corynebacterium amycolatum/xer 01/10/24 10:02 Wound - Toe Anaerobic Culture - Final No anaerobic bacteria isolated. 01/08/24 15:50 Blood Culture (Wb) - Anticubital Right Blood Culture - Final No growth in 5 days. 01/08/24 15:35 Blood Culture (Wb) - Anticubital Left Blood Culture - Final No growth in 5 days. Radiography Diagnostic Testing: Radiology Impression Echocardiogram 01/15/24 07:32 Interpretation Summary The estimated ejection fraction is 60 %. No evidence for diastolic dysfunction. The left atrium is mildly enlarged. Ordering Physician: Katie Retana Performed By: Christian Gillis RCS Physical Exam Const alert and no apparent distress HEENT head/scalp atraumatic and moist oral mucous membranes Resp normal respiratory effort, no retractions, no use of accessory muscles and clear to auscultation bilaterally Cardio regular rate, regular rhythm, S1 normal heart sound and S2 normal heart sound GI normal to inspection, nondistended, normoactive bowel sounds, soft to palpation, non-tender and non-distended Extremity Extremity Narrative: left foot wrapped, did not remove. Assessment & Plan Assessment/Plan (1) Gangrene: PLAN: Plan Left fourth toe gangrene * Left fourth toe black and gangrenous appearing on admission, per patient had been this way for 1 to 2 weeks. * Foot x-ray on admit within normal limits. * I+D performed on 01/10, evidence of necrotic bone to fourth digit with malodor and scant purulent drainage noted.4th digit on left remove removed. Delayed closure on 01/13. * Continue broad-spectrum antibiotics for now, follow-up cultures. ID consult * Vascular surgery consulted per podiatry recs. * Per podiatry, planning for second procedure for delayed closure and washout on 01/13 * Wound culture growing out Staph simulans and another culture growing out Raoultella planticola * On ceftriaxone and metronidazole. (vancomycin discontinued 01/13). * Per ID, plan for PO amox/CA upon discharge. Peripheral vascular disease with history of stenting * Continue home aspirin, statin, cilostazol. Clopidogrel currently held. * Angiography on had incomplete clearance of subacute and chronic thrombus. Plan for bipass next week with Dr. Frost * on anticoagulation with heparin gtt. MELLY * Improved from peak of to 2.55 (baseline around 0.84). Though has leveled off the past few days. * US showed mild left hydronephrosis. FENa 5.64%. * Nephrology input appreciated: suspecting ATN due to vancomycin v underlying infection (sepsis not present) v GN Chronic conditions: * COPD? Continue home inhalers. Incentive spirometry at bedside. * Hypertension? Stable. Continue home amlodipine. * Tobacco use? Former user. Advised continued cessation. DVT prophylaxis: SCDs CODE STATUS: Full code, verified Expected disposition: TBD Charges/Coding Visit Charges Inpatient E&M: 50366 Subs Hosp L2
[2024-01-16] MEDS: Budesonide Respules 0.5 MG/2 ML AMPUL.NEB. INHALATION ×2 (07:18→19:23)
[2024-01-16] MEDS: Albuterol 2.5 MG/3 ML VIAL.NEB. INHALATION ×3 (07:18→19:23)
[2024-01-16] MEDS: amLODIPine 5 MG Tablet PO (09:46)
[2024-01-16] MEDS: Aspirin E.C. 81 MG Tablet PO (09:46)
[2024-01-16] MEDS: Ceftriaxone 2 GM in 0.9% Normal Saline (50mL MB+) 50 ML IV (09:47)
[2024-01-16 12:45] LABS: Partial Thromboplast Time 47.8 Seconds (24.1-36.2)
[2024-01-16] MEDS: Heparin Injection (Vial) 5,000 UNIT/ML VIAL IV (14:30)
[2024-01-16 21:19] LABS: Partial Thromboplast Time 63.4 Seconds (24.1-36.2)
[2024-01-16] MEDS: Atorvastatin Calcium 20 MG Tablet PO (23:00)
[2024-01-17] VITALS (14 sets, daily range): BP systolic 133–146; BP diastolic 75–89; PULSE 96–111; RESP 16–24; TEMP 36.8–37.6; O2SAT 81–95
[2024-01-17 03:29] LABS: Anion Gap 4 (5-15); BUN 20 mg/dL (7-18); BUN/Creat Ratio 10.1 RATIO (10-20); Calcium,Total 8.5 mg/dL (8.5-10.1); Chloride 106 mmol/L (98-107); Creatinine, Serum 1.98 mg/dL (0.55-1.02); EST Glomerular Filtration Rate 27 mL/min (>60); Est Glom Filt Rate - Afr Amer 32 mL/min (>60); Estimated Creatinine Clearance 27.03 ml/min; Glucose 101 mg/dL (74-106); Potassium 3.4 mmol/L (3.5-5.1); Sodium Level 140 mmol/L (136-145)
[2024-01-17 03:55] LABS: Partial Thromboplast Time 42.4 Seconds (24.1-36.2)
[2024-01-17] MEDS: Heparin Injection (Vial) 5,000 UNIT/ML VIAL IV (04:05)
[2024-01-17] MEDS: HEPARIN/D5w 25,000 UNITS 25,000 UNITS/250 ML IV.SOLN. 12 UNITS CONT INF (04:13)
[2024-01-17] MEDS: metroNIDAZOLE 500 MG Tablet PO ×3 (05:36→21:54)
[2024-01-17] MEDS: Cilostazol 50 MG Tablet PO (05:37)
[2024-01-17] MEDS: Albuterol 2.5 MG/3 ML VIAL.NEB. INHALATION ×2 (07:02→13:18)
[2024-01-17] MEDS: Budesonide Respules 0.5 MG/2 ML AMPUL.NEB. INHALATION (07:02)
--- NOTE | 2024-01-17 07:20 | PN.HOSP_ITS ---
Reason for Visit Reason for Visit: Diagnoses Atherosclerosis of [place] arteries of extremities with gangrene, left leg (12/18 02/06) Disorder of arteries and arterioles, unspecified (01/08/24) Gangrene, not elsewhere classified (01/08/24) Osteomyelitis, unspecified (01/08/24) Acute kidney failure, unspecified (01/08/24) Subjective Subjective Diarrhea still ongoing. No new event. Objective Data Objective Data Vital Signs: Vital Signs Temp Pulse Resp BP Pulse Ox O2 Del Method O2 Flow Rate 36.8 C 106 H 18 135/75 H 94 Nasal Cannula 2 01/17/24 05:39 01/17/24 04:08 01/17/24 04:08 01/17/24 04:08 01/17/24 04:08 01/17/24 04:08 01/17/24 04:08 Oxygen Flow Rate (L/min) 2 Oxygen Delivery Method Nasal Cannula Weight: 78 kg Body Mass Index (BMI) 31.4 Intake & Output: Intake and Output for Last 24 Hours 01/15/24 01/16/24 01/17/24 23:59 23:59 23:59 Intake Total 2387.81 / 2387.81 862.83 / 1062.83 550.98 / 550.98 Balance 2387.81 / 2387.81 862.83 / 1062.83 550.98 / 550.98 Lab / Micro Data 01/15/24 08:08 01/17/24 03:05 Labs: Laboratory Results - last 24 hr 01/16/24 12:15: APTT 47.8 H 01/16/24 20:45: APTT 63.4 H 01/17/24 03:05: APTT 42.4 H, Sodium 140, Potassium 3.4 L, Chloride 106, Carbon Dioxide 30.0, Anion Gap 4 L, BUN 20 H, Creatinine 1.98 H, Estim Creat Clear Calc 27.03, Est GFR (MDRD) Af Amer 32 L, Est GFR (MDRD) Non-Af 27 L, BUN/Creatinine Ratio 10.1, Glucose 101, Calcium 8.5 Micro: Microbiology 01/16/24 17:55 Stool Clostridioides difficile (PCR) - Final 01/10/24 10:07 Wound - Toe Gram Stain - Final 01/10/24 10:07 Wound - Toe Wound Culture - Final Raoultella planticola Staphylococcus auricularis 01/10/24 10:07 Wound - Toe Anaerobic Culture - Final No anaerobic bacteria isolated. 01/10/24 10:02 Wound - Toe Gram Stain - Final 01/10/24 10:02 Wound - Toe Wound Culture - Final Staphylococcus simulans Corynebacterium amycolatum/xer 01/10/24 10:02 Wound - Toe Anaerobic Culture - Final No anaerobic bacteria isolated. 01/08/24 15:50 Blood Culture (Wb) - Anticubital Right Blood Culture - Final No growth in 5 days. 01/08/24 15:35 Blood Culture (Wb) - Anticubital Left Blood Culture - Final No growth in 5 days. Physical Exam Const alert and no apparent distress HEENT head/scalp atraumatic and moist oral mucous membranes Resp normal respiratory effort, no retractions, no use of accessory muscles and clear to auscultation bilaterally Cardio regular rate, regular rhythm, S1 normal heart sound and S2 normal heart sound GI normal to inspection, nondistended, normoactive bowel sounds, soft to palpation and non-tender Extremity Extremity Narrative: left foot wrapped--did not remove. Assessment & Plan Assessment/Plan (1) Gangrene: PLAN: Plan Left fourth toe gangrene * Left fourth toe black and gangrenous appearing on admission, per patient had been this way for 1 to 2 weeks. * Foot x-ray on admit within normal limits. * I+D performed on 01/10, evidence of necrotic bone to fourth digit with malodor and scant purulent drainage noted.4th digit on left remove removed. Delayed closure on 01/13. * Continue broad-spectrum antibiotics for now, follow-up cultures. ID consult * Vascular surgery consulted per podiatry recs. * Per podiatry, planning for second procedure for delayed closure and washout on 01/13 * Wound culture growing out Staph simulans and another culture growing out Raoultella planticola * On ceftriaxone and metronidazole. (vancomycin discontinued 01/13). * Per ID, plan for PO amox/CA upon discharge. 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 * Angiography and thrombectomy on had incomplete clearance of subacute and chronic thrombus. Plan for bypass next week on 01/[address] Frost * on anticoagulation with heparin gtt. Continue home aspirin, statin, cilostazol. Clopidogrel currently held. MELLY * Improving from peak of to 2.55 (baseline around 0.84). Though has leveled off the past few days. * US showed mild left hydronephrosis. FENa 5.64%. * Nephrology input appreciated: suspecting ATN due to vancomycin v underlying infection (sepsis not present) v GN * Did receive contrast AFTER initial MELLY. Creatinine improving. Chronic conditions: * COPD? Continue home inhalers. Incentive spirometry at bedside. * Hypertension? Stable. Continue home amlodipine. * Tobacco use? Former user. Advised continued cessation. DVT prophylaxis: SCDs CODE STATUS: Full code, verified Expected disposition: TBD DW pt's dtr at bedside. Charges/Coding Visit Charges Inpatient E&M: 74774 Subs Hosp L2
[2024-01-17] MEDS: Ceftriaxone 2 GM in 0.9% Normal Saline (50mL MB+) 50 ML IV (10:18)
[2024-01-17] MEDS: Aspirin E.C. 81 MG Tablet PO (10:18)
[2024-01-17] MEDS: 0.9% Saline Lock 10 ML Syringe IV (10:19)
[2024-01-17] MEDS: amLODIPine 5 MG Tablet PO (10:19)
[2024-01-17 10:32] LABS: Partial Thromboplast Time 72.1 Seconds (24.1-36.2)
--- NOTE | 2024-01-17 11:45 | NURSING ---
This RN is aware that ptt is in goal range at 72.1. Next ptt was ordered for 1610 today. Pt is aware of this as well.
--- NOTE | 2024-01-17 14:26 | NURSING ---
This RN encouraged pt to get OOB and sit in chair. Pt wants to wait until brother leaves. Brother is on his way in.
--- NOTE | 2024-01-17 15:24 | NURSING ---
This RN took oxygen off pt to see if she could be weaned off. Spo2 dropped down to 81% while at rest. PT states that she did not feel SOB. Will monitor.
--- NOTE | 2024-01-17 15:54 | PCM.PN.REN ---
Subjective Subjective No new complaints. Objective Data Objective Data Vital Signs: Vital Signs Temp Pulse Resp BP Pulse Ox O2 Del Method O2 Flow Rate 99.7 F H 111 H 20 H 133/82 H 95 Nasal Cannula 2 01/17/24 15:28 01/17/24 15:28 01/17/24 15:28 01/17/24 15:28 01/17/24 15:28 01/17/24 15:28 01/17/24 15:28 Oxygen Flow Rate (L/min) 2 Oxygen Delivery Method Nasal Cannula Weight: 78 kg Body Mass Index (BMI) 31.4 Intake & Output: Intake and Output for Last 24 Hours 01/15/24 01/16/24 01/17/24 23:59 23:59 23:59 Intake Total 2387.81 / 2387.81 862.83 / 1062.83 1050.98 / 1050.98 Balance 2387.81 / 2387.81 862.83 / 1062.83 1050.98 / 1050.98 Lab / Micro Data 01/15/24 08:08 01/17/24 03:05 Labs: Laboratory Results - last 24 hr 01/16/24 20:45: APTT 63.4 H 01/17/24 03:05: APTT 42.4 H, Sodium 140, Potassium 3.4 L, Chloride 106, Carbon Dioxide 30.0, Anion Gap 4 L, BUN 20 H, Creatinine 1.98 H, Estim Creat Clear Calc 27.03, Est GFR (MDRD) Af Amer 32 L, Est GFR (MDRD) Non-Af 27 L, BUN/Creatinine Ratio 10.1, Glucose 101, Calcium 8.5 01/17/24 10:10: APTT 72.1 H Micro: Microbiology 01/16/24 17:55 Stool Clostridioides difficile (PCR) - Final 01/10/24 10:07 Wound - Toe Gram Stain - Final 01/10/24 10:07 Wound - Toe Wound Culture - Final Raoultella planticola Staphylococcus auricularis 01/10/24 10:07 Wound - Toe Anaerobic Culture - Final No anaerobic bacteria isolated. 01/10/24 10:02 Wound - Toe Gram Stain - Final 01/10/24 10:02 Wound - Toe Wound Culture - Final Staphylococcus simulans Corynebacterium amycolatum/xer 01/10/24 10:02 Wound - Toe Anaerobic Culture - Final No anaerobic bacteria isolated. 01/08/24 15:50 Blood Culture (Wb) - Anticubital Right Blood Culture - Final No growth in 5 days. 01/08/24 15:35 Blood Culture (Wb) - Anticubital Left Blood Culture - Final No growth in 5 days. Physical Exam Narrative Alert awake oriented x 3 no obvious distress s1s2 no murmurs lungs clear abdomen soft no edema Assessment & Plan Assessment/Plan (1) MELLY (acute kidney injury): PLAN: Baseline creatinine was normal, close to baseline On admission. She has been on vancomycin and there was a trough which was elevated. Other medications reviewed. C3 normal likely ATN Renal ultrasound no hydro right kidney, mild hydro left kidney, bladder collapse, ureter collapsed, likely chronic She had a CTA earlier this month and it seems she did have mild left-sided hydronephrosis on review of those images as well. UA negative protein 25 occult blood, no leukocyte esterase.urine sodium 83. Creatinine is trending down.
[2024-01-17 17:38] LABS: Partial Thromboplast Time 77.8 Seconds (24.1-36.2)
[2024-01-17] MEDS: 0.9% Normal Saline (1000mL) 1,000 ML 15 ML IV (17:50)
--- NOTE | 2024-01-17 18:40 | NURSING ---
This RN is aware that ptt is 77.8 and is at goal range. This is the 2nd consecutive time ptt has been in goal range. PTT ordered for Thursday01/18/24 by this RN. junior manufacturing engineer is aware.
[2024-01-17] MEDS: Atorvastatin Calcium 20 MG Tablet PO (21:54)
[2024-01-18] VITALS (9 sets, daily range): BP systolic 115–157; BP diastolic 67–90; PULSE 93–112; RESP 16–20; TEMP 36.7–37.2; O2SAT 93–97
[2024-01-18] MEDS: HEPARIN/D5w 25,000 UNITS 25,000 UNITS/250 ML IV.SOLN. 12 UNITS CONT INF ×2 (01:11→20:37)
[2024-01-18 06:29] LABS: Anion Gap 4 (5-15); BUN 18 mg/dL (7-18); BUN/Creat Ratio 9.6 RATIO (10-20); Calcium,Total 8.7 mg/dL (8.5-10.1); Chloride 105 mmol/L (98-107); Creatinine, Serum 1.87 mg/dL (0.55-1.02); EST Glomerular Filtration Rate 29 mL/min (>60); Est Glom Filt Rate - Afr Amer 35 mL/min (>60); Estimated Creatinine Clearance 28.62 ml/min; Glucose 102 mg/dL (74-106); Potassium 3.2 mmol/L (3.5-5.1); Sodium Level 140 mmol/L (136-145)
[2024-01-18] MEDS: Cilostazol 50 MG Tablet PO (06:34)
[2024-01-18] MEDS: metroNIDAZOLE 500 MG Tablet PO ×3 (06:34→21:12)
[2024-01-18] MEDS: Budesonide Respules 0.5 MG/2 ML AMPUL.NEB. INHALATION ×2 (07:04→19:59)
[2024-01-18] MEDS: Albuterol 2.5 MG/3 ML VIAL.NEB. INHALATION ×2 (07:04→19:59)
--- NOTE | 2024-01-18 08:11 | WOUNDNOTE ---
Dressing and HOSSEIN wrap intact to the left lower leg. will discuss with Dr Camacho to see when plan is for next dressing change. pt is to have more vascular intervention this coming .
[2024-01-18] MEDS: Aspirin E.C. 81 MG Tablet PO (08:23)
[2024-01-18] MEDS: amLODIPine 5 MG Tablet PO (09:59)
[2024-01-18] MEDS: 0.9% Saline Lock 10 ML Syringe IV ×2 (09:59→13:49)
[2024-01-18] MEDS: Ceftriaxone 2 GM in 0.9% Normal Saline (50mL MB+) 50 ML IV (10:00)
--- NOTE | 2024-01-18 11:49 | WOUNDNOTE ---
wound photo: left foot
--- NOTE | 2024-01-18 13:05 | PCM.PN.HOSP ---
Reason for Visit Reason for Visit: Diagnoses Atherosclerosis of [place] arteries of extremities with gangrene, left leg (01/08/24) Disorder of arteries and arterioles, unspecified (01/08/24) Gangrene, not elsewhere classified (01/08/24) Osteomyelitis, unspecified (01/08/24) Acute kidney failure, unspecified (01/08/24) Subjective Subjective No acute events overnight. Patient seen at bedside this morning. Sitting up audibly in bed, conversing normally, no acute distress. Denies any acute pain or discomfort this morning. No other acute concerns at this time. Objective Data Objective Data Vital Signs: Vital Signs Temp Pulse Resp BP Pulse Ox O2 Del Method O2 Flow Rate 98.1 F 100 18 127/67 H 96 Nasal Cannula 2 01/18/24 09:52 01/18/24 09:52 01/18/24 09:52 01/18/24 09:52 01/18/24 09:52 01/18/24 09:52 01/18/24 09:52 Oxygen Flow Rate (L/min) 2 Oxygen Delivery Method Nasal Cannula Weight: 78 kg Body Mass Index (BMI) 31.4 Intake & Output: Intake and Output for Last 24 Hours 01/16/24 01/17/24 01/18/24 23:59 23:59 23:59 Intake Total 862.83 / 1062.83 1410.98 / 1710.98 900 / 900 Balance 862.83 / 1062.83 1410.98 / 1710.98 900 / 900 Lab / Micro Data 01/15/24 08:08 01/18/24 05:11 Labs: Laboratory Results - last 24 hr 01/17/24 17:16: APTT 77.8 H 01/18/24 05:11: APTT 76.0 H, Sodium 140, Potassium 3.2 L, Chloride 105, Carbon Dioxide 31.0, Anion Gap 4 L, BUN 18, Creatinine 1.87 H, Estim Creat Clear Calc 28.62, Est GFR (MDRD) Af Amer 35 L, Est GFR (MDRD) Non-Af 29 L, BUN/Creatinine Ratio 9.6 L, Glucose 102, Calcium 8.7 Micro: Microbiology 01/16/24 17:55 Stool Clostridioides difficile (PCR) - Final 01/10/24 10:07 Wound - Toe Gram Stain - Final 01/10/24 10:07 Wound - Toe Wound Culture - Final Raoultella planticola Staphylococcus auricularis 01/10/24 10:07 Wound - Toe Anaerobic Culture - Final No anaerobic bacteria isolated. 01/10/24 10:02 Wound - Toe Gram Stain - Final 01/10/24 10:02 Wound - Toe Wound Culture - Final Staphylococcus simulans Corynebacterium amycolatum/xer 01/10/24 10:02 Wound - Toe Anaerobic Culture - Final No anaerobic bacteria isolated. 01/08/24 15:50 Blood Culture (Wb) - Anticubital Right Blood Culture - Final No growth in 5 days. 01/08/24 15:35 Blood Culture (Wb) - Anticubital Left Blood Culture - Final No growth in 5 days. Physical Exam Const alert, oriented x3 and no apparent distress Constitutional Narrative: Elderly female, pleasant, sitting up comfortably in bed, conversing normally, no acute distress. General Appearance: cooperative and comfortable HEENT normocephalic, head/scalp atraumatic, hearing grossly normal bilaterally, nasal mucous membranes and turbinates normal and moist oral mucous membranes Eyes PERRL, EOMs intact bilaterally and conjunctivae normal Neck full ROM, no lymphadenopathy and supple Lymph Lymphatic: no lymphadenopathy noted Chest inspection of chest normal Resp normal respiratory effort, normal air movement, no use of accessory muscles and clear to auscultation bilaterally Resp Narrative: Breathing comfortably on 2 L nasal cannula. Cardio no murmurs and peripheral pulses 2+ throughout Cardio Narrative: Sinus tachycardia. GI normal to inspection, nondistended, normoactive bowel sounds, soft to palpation, non-tender and non-distended Back/Spine normal ROM Extremity no pedal edema Extremity Narrative: Left lower extremity Roland wrap in place. Skin no rashes or lesions noted Neuro moves all extremities and no focal motor deficits Speech: speech normal Psych mental status grossly normal Assessment & Plan Assessment/Plan (1) MELLY (acute kidney injury): (2) Gangrene: (3) Peripheral arterial occlusive disease: PLAN: Plan Patient is a 68-year-old female who presented to [facility] ED on 01/08/2024 with a left fourth toe wound. 1. Left fourth toe gangrene ? Left fourth toe blackened urine is appearing on admission, had been that way for 1 to 2 weeks. ? Foot x-ray on admit within normal limits. ? I&D performed on 01/10 with podiatry, showed evidence of necrotic bone of fourth digit with malodor and scant purulent drainage. Fourth digit was removed at that time. S/p delayed closure and washout with podiatry on 01/13. ? Wound culture grew Staph simulans, another culture grew Raoultella planticola. ID following, okay for ceftriaxone and metronidazole while inpatient, with plan for p.o. Augmentin on discharge. ? Vascular surgery following as below. ? Wound care following. ? PT/OT/case management following. 2. Severe peripheral vascular disease of left lower extremity ? Chronic in-stent thrombosis of left common and external iliac arteries on imaging. ? Vascular surgery following. S/p angiography and thrombectomy on with incomplete clearance of subacute chronic thrombus. Planning for bypass on 01/[address] Frost. ? Continue heparin drip for anticoagulation. Continue home aspirin, statin, cilostazol. Holding Plavix. 3. MELLY ? Creatinine peaked at 2.55, with baseline 0.84. ? FeNa 5.64%. Ultrasound showed mild left-sided nephrosis. ? Nephrology following. Suspect ATN due to vancomycin versus underlying infection, versus possible GN. Patient notably did receive contrast after initial MELLY. ? Creatinine slowly improving, has had adequate urine output. Monitor BMP and urine output daily. Avoid nephrotoxins. 4. Acute on chronic anemia ? Hemoglobin 13.4 on admit, down trended to 11-12 with IV fluid administration, was at baseline. ? Hemoglobin is slowly down trended during hospitalization, most recent hemoglobin 9.9 on 01/14. Suspect secondary to blood loss with procedures as well as blood draws during hospitalization. ? Monitor hemoglobin every other day. Chronic medical conditions: ? COPD: Not on home O2. Continue home inhalers. Incentive spirometry at bedside. ? Hypertension: Stable. Continue home amlodipine. ? Former tobacco user: Advised continued cessation. ? Obesity: BMI 31 on admit. Complicates hospital course, care and prognosis. DVT prophylaxis: SCDs CODE STATUS: Full code, verified Expected disposition: TBD Total clinical time spent by myself addressing the patient's medical issues, reviewing all the data, and collaborating with patient's care team: 35 minutes. Charges/Coding Visit Charges Inpatient E&M: 92102 Subs Hosp L2
--- NOTE | 2024-01-18 17:03 | PCM.PN.SRG ---
Subjective Subjective Doing well, no foot pain, no pain at access site. Objective Data Objective Data A&O x 3, NAD RRR Resp non labored Vital Signs: Vital Signs Temp Pulse Resp BP Pulse Ox O2 Del Method O2 Flow Rate 98.9 F 110 H 20 H 132/83 H 97 Nasal Cannula 2 01/18/24 15:25 01/18/24 15:25 01/18/24 15:25 01/18/24 15:25 01/18/24 15:25 01/18/24 15:28 01/18/24 16:00 Oxygen Flow Rate (L/min) 2 Oxygen Delivery Method Nasal Cannula Weight: 171 lb 15.369 oz Body Mass Index (BMI) 31.4 Intake & Output: Intake and Output for Last 24 Hours 01/16/24 01/17/24 01/18/24 23:59 23:59 23:59 Intake Total 862.83 / 1062.83 1410.98 / 1710.98 1400 / 1400 Balance 862.83 / 1062.83 1410.98 / 1710.98 1400 / 1400 Lab / Micro Data 01/15/24 08:08 01/18/24 05:11 Labs: Laboratory Results - last 24 hr 01/17/24 17:16: APTT 77.8 H 01/18/24 05:11: APTT 76.0 H, Sodium 140, Potassium 3.2 L, Chloride 105, Carbon Dioxide 31.0, Anion Gap 4 L, BUN 18, Creatinine 1.87 H, Estim Creat Clear Calc 28.62, Est GFR (MDRD) Af Amer 35 L, Est GFR (MDRD) Non-Af 29 L, BUN/Creatinine Ratio 9.6 L, Glucose 102, Calcium 8.7 Micro: Microbiology 01/16/24 17:55 Stool Clostridioides difficile (PCR) - Final 01/10/24 10:07 Wound - Toe Gram Stain - Final 01/10/24 10:07 Wound - Toe Wound Culture - Final Raoultella planticola Staphylococcus auricularis 01/10/24 10:07 Wound - Toe Anaerobic Culture - Final No anaerobic bacteria isolated. 01/10/24 10:02 Wound - Toe Gram Stain - Final 01/10/24 10:02 Wound - Toe Wound Culture - Final Staphylococcus simulans Corynebacterium amycolatum/xer 01/10/24 10:02 Wound - Toe Anaerobic Culture - Final No anaerobic bacteria isolated. 01/08/24 15:50 Blood Culture (Wb) - Anticubital Right Blood Culture - Final No growth in 5 days. 01/08/24 15:35 Blood Culture (Wb) - Anticubital Left Blood Culture - Final No growth in 5 days. Assessment & Plan Assessment/Plan (1) Atherosclerosis of [place] arteries of extremities with gangrene, left leg: PLAN: -unsuccessful effort at percutaneous treatment; early chronic thrombus could not be cleared with aspiration, too unstable for angioplasty -some improved perfusion with small flow lumen created, not likely durable -cont heparin drip -plan fem-fem AM -Cr continues to improve Charges/Coding Visit Charges Inpatient E&M: 90740 Subs Hosp L2
[2024-01-18] MEDS: Atorvastatin Calcium 20 MG Tablet PO (21:12)
[2024-01-19 02:20] VITALS: BP 137/87; PULSE 103; RESP 18; TEMP 37.2; O2SAT 96
[2024-01-19] MEDS: metroNIDAZOLE 500 MG Tablet PO (05:15)
[2024-01-19] MEDS: Cilostazol 50 MG Tablet PO (05:15)
[2024-01-19 05:58] LABS: Hematocrit 30.1 % (37-47); Hemoglobin 9.3 g/dL (12.0-15.0); Mean Corp Hgb Conc 30.9 g/dL (32-36); Mean Corpuscular Hgb 27.1 pg (27.0-32.0); Mean Corpuscular Volume 87.8 fL (81-99); Mean Platelet Vol. 10.4 fl (6.2-12.0); Platelet Count 313 K/mm3 (150-450); RBC Distribution Width CV 14.3 % (11.6-14.6); RBC Distribution Width SD 45.6 fl (35.1-43.9); Red Blood Count 3.43 M/mm3 (4.2-5.4); White Blood Count 8.9 K/mm3 (4.4-11.0)
[2024-01-19 06:28] LABS: Partial Thromboplast Time 71.4 Seconds (24.1-36.2)
[2024-01-19 06:54] LABS: Anion Gap 7 (5-15); BUN 16 mg/dL (7-18); BUN/Creat Ratio 8.8 RATIO (10-20); Chloride 104 mmol/L (98-107); Creatinine, Serum 1.82 mg/dL (0.55-1.02); EST Glomerular Filtration Rate 30 mL/min (>60); Est Glom Filt Rate - Afr Amer 36 mL/min (>60); Estimated Creatinine Clearance 29.41 ml/min; Glucose 97 mg/dL (74-106); Potassium 3.3 mmol/L (3.5-5.1); Sodium Level 142 mmol/L (136-145)
--- NOTE | 2024-01-19 08:25 | WOUNDNOTE ---
HOSSEIN wrap to the left lower leg is D&I.
[2024-01-19 08:26] LABS: Magnesium 1.8 mg/dL (1.6-2.6)
[2024-01-19 09:03] VITALS: BP 149/74; PULSE 97; RESP 18; TEMP 36.9; O2SAT 94; O2SAT 97
[2024-01-19 09:11] VITALS: O2SAT 97
[2024-01-19] MEDS: Potassium Chloride Oral Tablet 20 MEQ 40 MEQ PO (10:03)
[2024-01-19] MEDS: 0.9% Saline Lock 10 ML Syringe IV ×2 (10:03→13:41)
[2024-01-19] MEDS: amLODIPine 5 MG Tablet PO (10:05)
[2024-01-19] MEDS: Aspirin E.C. 81 MG Tablet PO (10:06)
[2024-01-19] MEDS: Ceftriaxone 2 GM in 0.9% Normal Saline (50mL MB+) 50 ML IV (10:06)
--- NOTE | 2024-01-19 10:11 | PCM.PN.HOSP ---
Reason for Visit Reason for Visit: Diagnoses Atherosclerosis of [place] arteries of extremities with gangrene, left leg (01/08/24) Disorder of arteries and arterioles, unspecified (01/08/24) Gangrene, not elsewhere classified (01/08/24) Osteomyelitis, unspecified (01/08/24) Acute kidney failure, unspecified (01/08/24) Subjective Subjective No acute events overnight. Patient seen at bedside this morning, family member present. Patient sitting up comfortably in bed, conversing normally, no acute distress. Looking forward to having her procedure done on , states she was told by vascular surgery that there is a potential she could go home on either Thursday or Thursday depending on how she does postoperatively. No other acute concerns this morning. Objective Data Objective Data Vital Signs: Vital Signs Temp Pulse Resp BP Pulse Ox O2 Del Method O2 Flow Rate 98.4 F 97 18 149/74 H 97 Nasal Cannula 2 01/19/24 09:03 01/19/24 09:03 01/19/24 09:03 01/19/24 09:03 01/19/24 09:11 01/19/24 09:03 01/19/24 09:11 Oxygen Flow Rate (L/min) 2 Oxygen Delivery Method Nasal Cannula Weight: 78 kg Body Mass Index (BMI) 31.4 Intake & Output: Intake and Output for Last 24 Hours 01/17/24 01/18/24 01/19/24 23:59 23:59 23:59 Intake Total 1410.98 / 1710.98 2460.7 / 2460.7 120.6 / 120.6 Balance 1410.98 / 1710.98 2460.7 / 2460.7 120.6 / 120.6 Lab / Micro Data 01/19/24 05:21 01/19/24 05:21 Labs: Laboratory Results - last 24 hr 01/19/24 05:21: WBC 8.9, RBC 3.43 L, Hgb 9.3 L, Hct 30.1 L, MCV 87.8, MCH 27.1, MCHC 30.9 L, RDW Std Deviation 45.6 H, RDW Coeff of Alfie 14.3, Plt Count 313, MPV 10.4, APTT 71.4 H, Sodium 142, Potassium 3.3 L, Chloride 104, Carbon Dioxide 31.0, Anion Gap 7, BUN 16, Creatinine 1.82 H, Estim Creat Clear Calc 29.41, Est GFR (MDRD) Af Amer 36 L, Est GFR (MDRD) Non-Af 30 L, BUN/Creatinine Ratio 8.8 L, Glucose 97, Calcium 9.0, Magnesium 1.8 Micro: Microbiology 01/16/24 17:55 Stool Clostridioides difficile (PCR) - Final 01/10/24 10:07 Wound - Toe Gram Stain - Final 01/10/24 10:07 Wound - Toe Wound Culture - Final Raoultella planticola Staphylococcus auricularis 01/10/24 10:07 Wound - Toe Anaerobic Culture - Final No anaerobic bacteria isolated. 01/10/24 10:02 Wound - Toe Gram Stain - Final 01/10/24 10:02 Wound - Toe Wound Culture - Final Staphylococcus simulans Corynebacterium amycolatum/xer 01/10/24 10:02 Wound - Toe Anaerobic Culture - Final No anaerobic bacteria isolated. 01/08/24 15:50 Blood Culture (Wb) - Anticubital Right Blood Culture - Final No growth in 5 days. 01/08/24 15:35 Blood Culture (Wb) - Anticubital Left Blood Culture - Final No growth in 5 days. Physical Exam Const alert, oriented x3 and no apparent distress Constitutional Narrative: Elderly female, pleasant, sitting up comfortably in bed, conversing normally, no acute distress. General Appearance: cooperative and comfortable HEENT normocephalic, head/scalp atraumatic, hearing grossly normal bilaterally, nasal mucous membranes and turbinates normal and moist oral mucous membranes Eyes PERRL, EOMs intact bilaterally and conjunctivae normal Neck full ROM, no lymphadenopathy and supple Lymph Lymphatic: no lymphadenopathy noted Chest inspection of chest normal Resp normal respiratory effort, normal air movement, no use of accessory muscles and clear to auscultation bilaterally Resp Narrative: Breathing comfortably on 2 L nasal cannula. Cardio no murmurs and peripheral pulses 2+ throughout Cardio Narrative: Sinus tachycardia. GI normal to inspection, nondistended, normoactive bowel sounds, soft to palpation, non-tender and non-distended Back/Spine normal ROM Extremity no pedal edema Extremity Narrative: Left lower extremity Roland wrap in place. Skin no rashes or lesions noted Neuro moves all extremities and no focal motor deficits Speech: speech normal Psych mental status grossly normal Assessment & Plan Assessment/Plan (1) MELLY (acute kidney injury): (2) Gangrene: (3) Peripheral arterial occlusive disease: PLAN: Plan Patient is a 68-year-old female who presented to [facility] ED on 01/08/2024 with a left fourth toe wound. 1. Left fourth toe gangrene ? Left fourth toe blackened urine is appearing on admission, had been that way for 1 to 2 weeks. ? Foot x-ray on admit within normal limits. ? I&D performed on 01/10 with podiatry, showed evidence of necrotic bone of fourth digit with malodor and scant purulent drainage. Fourth digit was removed at that time. S/p delayed closure and washout with podiatry on 01/13. ? Wound culture grew Staph simulans, another culture grew Raoultella planticola. ID following, okay for ceftriaxone and metronidazole while inpatient, with plan for p.o. Augmentin on discharge. ? Vascular surgery following as below. ? Wound care following. ? PT/OT/case management following. 2. Severe peripheral vascular disease of left lower extremity ? Chronic in-stent thrombosis of left common and external iliac arteries on imaging. ? Vascular surgery following. S/p angiography and thrombectomy on with incomplete clearance of subacute chronic thrombus. Planning for bypass on 01/[address] Frost. ? Continue heparin drip for anticoagulation. Continue home aspirin, statin, cilostazol. Holding Plavix. 3. MELLY, improving ? Creatinine peaked at 2.55, with baseline 0.84. ? FeNa 5.64%. Ultrasound showed mild left-sided nephrosis. ? Nephrology following. Suspect ATN due to vancomycin versus underlying infection, versus possible GN. Patient notably did receive contrast after initial MELLY. ? Creatinine slowly improving, has had adequate urine output. Monitor BMP and urine output daily. Avoid nephrotoxins. 4. Acute on chronic anemia ? Hemoglobin 13.4 on admit, down trended to 11-12 with IV fluid administration, was at baseline. ? Hemoglobin has slowly down trended during hospitalization, most recent hemoglobin 9.3 on 01/18. Suspect secondary to blood loss with procedures as well as blood draws during hospitalization. ? Monitor CBC daily. Chronic medical conditions: ? COPD: Not on home O2. Continue home inhalers. Incentive spirometry at bedside. ? Hypertension: Stable. Continue home amlodipine. ? Former tobacco user: Advised continued cessation. ? Obesity: BMI 31 on admit. Complicates hospital course, care and prognosis. DVT prophylaxis: Heparin drip CODE STATUS: Full code, verified Expected disposition: Home with [facility], 3-4 days Total clinical time spent by myself addressing the patient's medical issues, reviewing all the data, and collaborating with patient's care team: 25 minutes. Charges/Coding Visit Charges Inpatient E&M: 21772 Subs Hosp L1
--- NOTE | 2024-01-19 12:03 | PCM.PN.SRG ---
Subjective Subjective Ms. Macedo is a 62-year-old female seen at bedside today for follow-up evaluation of delayed primary closure to the left lower extremity. DOS: 01/13/2024. Patient denies any pain to left lower extremity. She has been getting dressing changes per wound care nurse without any pain. She admits that vascular surgery is planning a open bypass procedure this . She denies any trauma. Denies constitutional symptoms. No other pedal complaints at this time. Objective Data Objective Data Vital Signs: Vital Signs Temp Pulse Resp BP Pulse Ox O2 Del Method O2 Flow Rate 98.4 F 97 18 149/74 H 97 Nasal Cannula 2 01/19/24 09:03 01/19/24 09:03 01/19/24 09:03 01/19/24 09:03 01/19/24 09:11 01/19/24 09:03 01/19/24 09:11 Oxygen Flow Rate (L/min) 2 Oxygen Delivery Method Nasal Cannula Weight: 78 kg Body Mass Index (BMI) 31.4 Intake & Output: Intake and Output for Last 24 Hours 01/17/24 01/18/24 01/19/24 23:59 23:59 23:59 Intake Total 1410.98 / 1710.98 2460.7 / 2460.7 120.6 / 120.6 Balance 1410.98 / 1710.98 2460.7 / 2460.7 120.6 / 120.6 Lab / Micro Data 01/19/24 05:21 01/19/24 05:21 Labs: Laboratory Results - last 24 hr 01/19/24 05:21: WBC 8.9, RBC 3.43 L, Hgb 9.3 L, Hct 30.1 L, MCV 87.8, MCH 27.1, MCHC 30.9 L, RDW Std Deviation 45.6 H, RDW Coeff of Alfie 14.3, Plt Count 313, MPV 10.4, APTT 71.4 H, Sodium 142, Potassium 3.3 L, Chloride 104, Carbon Dioxide 31.0, Anion Gap 7, BUN 16, Creatinine 1.82 H, Estim Creat Clear Calc 29.41, Est GFR (MDRD) Af Amer 36 L, Est GFR (MDRD) Non-Af 30 L, BUN/Creatinine Ratio 8.8 L, Glucose 97, Calcium 9.0, Magnesium 1.8 Micro: Microbiology 01/16/24 17:55 Stool Clostridioides difficile (PCR) - Final 01/10/24 10:07 Wound - Toe Gram Stain - Final 01/10/24 10:07 Wound - Toe Wound Culture - Final Raoultella planticola Staphylococcus auricularis 01/10/24 10:07 Wound - Toe Anaerobic Culture - Final No anaerobic bacteria isolated. 01/10/24 10:02 Wound - Toe Gram Stain - Final 01/10/24 10:02 Wound - Toe Wound Culture - Final Staphylococcus simulans Corynebacterium amycolatum/xer 01/10/24 10:02 Wound - Toe Anaerobic Culture - Final No anaerobic bacteria isolated. 01/08/24 15:50 Blood Culture (Wb) - Anticubital Right Blood Culture - Final No growth in 5 days. 01/08/24 15:35 Blood Culture (Wb) - Anticubital Left Blood Culture - Final No growth in 5 days. Physical Exam Narrative Neurovascular status is unchanged. No pain to palpation to the incision over the dressing. Nonpitting edema appreciated to the distal and proximal aspect of the Roland bandage to left lower extremity. Active and passive range of motion of the digits is pain-free. There is no pain with calf compression. Assessment & Plan Assessment/Plan (1) Osteomyelitis: QUALIFIERS: Laterality: left Osteomyelitis location: foot Osteomyelitis type: unspecified type Qualified Code(s): M86.9 - Osteomyelitis, unspecified PLAN: Patient was examined and evaluated. All findings were discussed with the patient. All questions were answered to the patient satisfaction. Patient left lower extremity dressing was changed by wound care nurse. Wound care nurse photos evaluated, no concern for infection or surgical wound dehiscence. Continue wound care orders consisting of Betadine soaked Adaptic, dry sterile dressing and single-layer Cobb compression bandage to left lower extremity. Surgery Cx (Bone): R. planticola, S auricularis, Surgery Cx: (Swab): S similans, C amycolatum Path: Clear Margin: (-)ve for Osteomyelitis Medicine: On board, medical management Vascular surgery: On board, plan for Open bypass. Surgery planned for , 02/10/2024. Infectious disease: On board, IV antibiotics ceftriaxone/Flagyl. Plan to discharge on 1 week of p.o. Augmentin. Patient is cleared from podiatry standpoint to discharge after being cleared by medicine team, vascular team and infectious disease team. Podiatry will sign off and follow from a distance. Wound care orders are in for wound care nurse for every other day dressing changes. Please reconsult Dr Camacho, with any questions or concerns. Patient will follow-up with Dr. Camacho at the wound care center 1 week postdischarge. Discharge instructions are in. Thank you for letting me be involved in the patient's care! (2) Gangrene: (3) Atherosclerosis of [place] arteries of extremities with gangrene, left leg:
--- NOTE | 2024-01-19 13:57 | PCM.PN.ID ---
ID ID: Route of nutrition/ use of supplements: [] Nutritional Intake: [] IV Site: [] Morse Catheter: [] Assessment & Plan Assessment/Plan (1) Osteomyelitis: QUALIFIERS: Osteomyelitis type: unspecified type Osteomyelitis location: foot Laterality: left Qualified Code(s): M86.9 - Osteomyelitis, unspecified (2) Gangrene: PLAN: Taken to OR 01/10/[address] Camacho for L 4th toe amputation. Surg cx showing raoultella, MS-CoNS, and GPR. New MELLY, changed zosyn to ceftriaxone/flagyl. Taken for closure 01/13/24. Final path shows no residual infection. Has completed adequate course, will stop abx today. Will follow as needed, please call with any new issues (3) Peripheral arterial occlusive disease:
--- NOTE | 2024-01-19 14:31 | CASEMGMT ---
DALIA NEVAREZ into pt room, pt sitting up in bed, pt states that she is still planning on going home. She states she lives with her son and her sister will visit and check on her daily. She states that her friend worked in homecare for 10 years and will also be able to assist pt. Pt states the only equipment needed is as previously planned which is a FWW and BSC. Pt denies need for HHC. She states she feels she is doing well with therapy. DALIA NEVAREZ to continue to follow.
[2024-01-19 15:09] VITALS: BP 148/82; PULSE 110; RESP 18; TEMP 37; O2SAT 94
[2024-01-19] MEDS: HEPARIN/D5w 25,000 UNITS 25,000 UNITS/250 ML IV.SOLN. 12 UNITS CONT INF (17:38)
[2024-01-19 19:20] VITALS: PULSE 102; RESP 20; O2SAT 95
[2024-01-19] MEDS: Budesonide Respules 0.5 MG/2 ML AMPUL.NEB. INHALATION (19:23)
[2024-01-19] MEDS: Albuterol 2.5 MG/3 ML VIAL.NEB. INHALATION (19:23)
[2024-01-19] MEDS: Atorvastatin Calcium 20 MG Tablet PO (20:06)
[2024-01-19 20:53] VITALS: BP 155/87; PULSE 104; RESP 18; TEMP 36.9; O2SAT 95
[2024-01-20] VITALS (7 sets, daily range): BP systolic 132–135; BP diastolic 76–86; PULSE 96–118; RESP 15–20; TEMP 36.8–36.9; O2SAT 92–98
[2024-01-20] MEDS: Cilostazol 50 MG Tablet PO (05:27)
[2024-01-20] MEDS: Menthol/Lanolin/Calamine/Znox 113 GM Tube 1 APPLIC TOPICAL (05:27)
[2024-01-20 06:15] LABS: Hematocrit 28.5 % (37-47); Hemoglobin 8.9 g/dL (12.0-15.0); Mean Corp Hgb Conc 31.2 g/dL (32-36); Mean Corpuscular Hgb 27.6 pg (27.0-32.0); Mean Corpuscular Volume 88.5 fL (81-99); Mean Platelet Vol. 10.7 fl (6.2-12.0); Platelet Count 357 K/mm3 (150-450); RBC Distribution Width CV 14.6 % (11.6-14.6); RBC Distribution Width SD 46.7 fl (35.1-43.9); Red Blood Count 3.22 M/mm3 (4.2-5.4); White Blood Count 8.4 K/mm3 (4.4-11.0)
[2024-01-20 06:24] LABS: Partial Thromboplast Time 62.7 Seconds (24.1-36.2)
[2024-01-20 06:31] LABS: Anion Gap 9 (5-15); BUN 14 mg/dL (7-18); Calcium,Total 8.8 mg/dL (8.5-10.1); Chloride 105 mmol/L (98-107); Creatinine, Serum 1.76 mg/dL (0.55-1.02); EST Glomerular Filtration Rate 31 mL/min (>60); Est Glom Filt Rate - Afr Amer 37 mL/min (>60); Estimated Creatinine Clearance 30.41 ml/min; Glucose 92 mg/dL (74-106); Potassium 3.7 mmol/L (3.5-5.1); Sodium Level 143 mmol/L (136-145)
[2024-01-20] MEDS: amLODIPine 5 MG Tablet PO (10:58)
[2024-01-20] MEDS: Aspirin E.C. 81 MG Tablet PO (10:58)
--- NOTE | 2024-01-20 13:20 | PCM.PN.HOSP ---
Reason for Visit Reason for Visit: Diagnoses Atherosclerosis of [place] arteries of extremities with gangrene, left leg (01/08/24) Disorder of arteries and arterioles, unspecified (01/08/24) Gangrene, not elsewhere classified (01/08/24) Osteomyelitis, unspecified (01/08/24) Acute kidney failure, unspecified (01/08/24) Subjective Subjective No acute events overnight. Patient seen at bedside this morning. Sitting comfortably at edge of bed, was about to use commode with assistance of nursing staff when I saw her. She denied any acute pain or discomfort this morning. She was looking forward to having her procedure done tomorrow. No other acute concerns. Objective Data Objective Data Vital Signs: Vital Signs Temp Pulse Resp BP Pulse Ox O2 Del Method O2 Flow Rate 98.5 F 96 18 135/86 H 98 Nasal Cannula 2 01/20/24 11:06 01/20/24 11:06 01/20/24 11:06 01/20/24 11:06 01/20/24 11:06 01/20/24 11:08 01/20/24 11:06 Oxygen Flow Rate (L/min) 2 Oxygen Delivery Method Nasal Cannula Weight: 78 kg Body Mass Index (BMI) 31.4 Intake & Output: Intake and Output for Last 24 Hours 01/18/24 01/19/24 01/20/24 23:59 23:59 23:59 Intake Total 2460.7 / 2460.7 1000.0 / 1000.0 Balance 2460.7 / 2460.7 1000.0 / 1000.0 Lab / Micro Data 01/20/24 05:55 01/20/24 05:55 Labs: Laboratory Results - last 24 hr 01/20/24 05:55: WBC 8.4, RBC 3.22 L, Hgb 8.9 L, Hct 28.5 L, MCV 88.5, MCH 27.6, MCHC 31.2 L, RDW Std Deviation 46.7 H, RDW Coeff of Alfie 14.6, Plt Count 357, MPV 10.7, APTT 62.7 H, Sodium 143, Potassium 3.7, Chloride 105, Carbon Dioxide 29.0, Anion Gap 9, BUN 14, Creatinine 1.76 H, Estim Creat Clear Calc 30.41, Est GFR (MDRD) Af Amer 37 L, Est GFR (MDRD) Non-Af 31 L, BUN/Creatinine Ratio 8.0 L, Glucose 92, Calcium 8.8 Micro: Microbiology 01/16/24 17:55 Stool Clostridioides difficile (PCR) - Final 01/10/24 10:07 Wound - Toe Gram Stain - Final 01/10/24 10:07 Wound - Toe Wound Culture - Final Raoultella planticola Staphylococcus auricularis 01/10/24 10:07 Wound - Toe Anaerobic Culture - Final No anaerobic bacteria isolated. 01/10/24 10:02 Wound - Toe Gram Stain - Final 01/10/24 10:02 Wound - Toe Wound Culture - Final Staphylococcus simulans Corynebacterium amycolatum/xer 01/10/24 10:02 Wound - Toe Anaerobic Culture - Final No anaerobic bacteria isolated. 01/08/24 15:50 Blood Culture (Wb) - Anticubital Right Blood Culture - Final No growth in 5 days. 01/08/24 15:35 Blood Culture (Wb) - Anticubital Left Blood Culture - Final No growth in 5 days. Physical Exam Const alert, oriented x3 and no apparent distress Constitutional Narrative: Elderly female, pleasant, sitting up comfortably in bed, conversing normally, no acute distress. General Appearance: cooperative and comfortable HEENT normocephalic, head/scalp atraumatic, hearing grossly normal bilaterally, nasal mucous membranes and turbinates normal and moist oral mucous membranes Eyes PERRL, EOMs intact bilaterally and conjunctivae normal Neck full ROM, no lymphadenopathy and supple Lymph Lymphatic: no lymphadenopathy noted Chest inspection of chest normal Resp normal respiratory effort, normal air movement, no use of accessory muscles and clear to auscultation bilaterally Resp Narrative: Breathing comfortably on 2 L nasal cannula. Cardio regular rate, regular rhythm, no murmurs and peripheral pulses 2+ throughout GI normal to inspection, nondistended, normoactive bowel sounds, soft to palpation, non-tender and non-distended Back/Spine normal ROM Extremity no pedal edema Extremity Narrative: Left lower extremity Roland wrap in place. Skin no rashes or lesions noted Neuro moves all extremities and no focal motor deficits Speech: speech normal Psych mental status grossly normal Assessment & Plan Assessment/Plan (1) MELLY (acute kidney injury): (2) Gangrene: (3) Peripheral arterial occlusive disease: PLAN: Plan Patient is a 68-year-old female who presented to [facility] ED on 01/08/2024 with a left fourth toe wound. 1. Left fourth toe gangrene ? Left fourth toe blackened urine is appearing on admission, had been that way for 1 to 2 weeks. ? Foot x-ray on admit within normal limits. ? I&D performed on 01/10 with podiatry, showed evidence of necrotic bone of fourth digit with malodor and scant purulent drainage. Fourth digit was removed at that time. S/p delayed closure and washout with podiatry on 01/13. ? Wound culture grew Staph simulans, another culture grew Raoultella planticola. ID following, treated with ceftriaxone and metronidazole while inpatient, completed course on 01/19. ? Vascular surgery following as below. ? Wound care following. ? PT/OT/case management following. Likely home with home health care on discharge. 2. Severe peripheral vascular disease of left lower extremity ? Chronic in-stent thrombosis of left common and external iliac arteries on imaging. ? Vascular surgery following. S/p angiography and thrombectomy on with incomplete clearance of subacute chronic thrombus. Planning for bypass on 01/[address] Frost. ? Continue heparin drip for anticoagulation. Continue home aspirin, statin, cilostazol. Holding Plavix. 3. MELLY, improving ? Creatinine peaked at 2.55, with baseline 0.84. ? FeNa 5.64%. Ultrasound showed mild left-sided nephrosis. ? Nephrology following. Suspect ATN due to vancomycin versus underlying infection, versus possible GN. Patient notably did receive contrast after initial MELLY. ? Creatinine slowly improving, has had adequate urine output. Monitor BMP and urine output daily. Avoid nephrotoxins. 4. Acute on chronic anemia ? Hemoglobin 13.4 on admit, down trended to 11-12 with IV fluid administration, was at baseline. ? Hemoglobin has slowly down trended during hospitalization, most recent hemoglobin 8.9 on 01/19. Suspect secondary to blood loss with procedures as well as blood draws during hospitalization. ? Monitor CBC daily. Chronic medical conditions: ? COPD: Not on home O2. Continue home inhalers. Incentive spirometry at bedside. ? Hypertension: Stable. Continue home amlodipine. ? Former tobacco user: Advised continued cessation. ? Obesity: BMI 31 on admit. Complicates hospital course, care and prognosis. DVT prophylaxis: Heparin drip CODE STATUS: Full code, verified Expected disposition: Home with [facility], 2-3 days Total clinical time spent by myself addressing the patient's medical issues, reviewing all the data, and collaborating with patient's care team: 25 minutes. Charges/Coding Visit Charges Inpatient E&M: 41081 Subs Hosp L1
[2024-01-20] MEDS: HEPARIN/D5w 25,000 UNITS 25,000 UNITS/250 ML IV.SOLN. 12 UNITS CONT INF (14:23)
--- NOTE | 2024-01-20 15:14 | PN.SURG_ITS ---
Subjective Subjective Patient was seen resting comfortably in bed. She reports she is feeling good and feels ready for her procedure tomorrow. Hgb remains slowly downtrending but no acute changes. Her creatinine continues to improve. She reports minimal discomfort in her LLE at this time and L toe amputation site is stable in appearance at this time. Objective Data Objective Data Vital Signs: Vital Signs Temp Pulse Resp BP Pulse Ox O2 Del Method O2 Flow Rate 98.5 F 96 18 135/86 H 98 Nasal Cannula 2 01/20/24 11:06 01/20/24 11:06 01/20/24 11:06 01/20/24 11:06 01/20/24 11:06 01/20/24 11:08 01/20/24 11:06 Oxygen Flow Rate (L/min) 2 Oxygen Delivery Method Nasal Cannula Weight: 171 lb 15.369 oz Body Mass Index (BMI) 31.4 Intake & Output: Intake and Output for Last 24 Hours 01/18/24 01/19/24 01/20/24 23:59 23:59 23:59 Intake Total 2460.7 / 2460.7 1000.0 / 1000.0 246.4 / 246.4 Balance 2460.7 / 2460.7 1000.0 / 1000.0 246.4 / 246.4 Lab / Micro Data 01/20/24 05:55 01/20/24 05:55 Labs: Laboratory Results - last 24 hr 01/20/24 05:55: WBC 8.4, RBC 3.22 L, Hgb 8.9 L, Hct 28.5 L, MCV 88.5, MCH 27.6, MCHC 31.2 L, RDW Std Deviation 46.7 H, RDW Coeff of Alfie 14.6, Plt Count 357, MPV 10.7, APTT 62.7 H, Sodium 143, Potassium 3.7, Chloride 105, Carbon Dioxide 29.0, Anion Gap 9, BUN 14, Creatinine 1.76 H, Estim Creat Clear Calc 30.41, Est GFR (MDRD) Af Amer 37 L, Est GFR (MDRD) Non-Af 31 L, BUN/Creatinine Ratio 8.0 L, Glucose 92, Calcium 8.8 Micro: Microbiology 01/16/24 17:55 Stool Clostridioides difficile (PCR) - Final 01/10/24 10:07 Wound - Toe Gram Stain - Final 01/10/24 10:07 Wound - Toe Wound Culture - Final Raoultella planticola Staphylococcus auricularis 01/10/24 10:07 Wound - Toe Anaerobic Culture - Final No anaerobic bacteria isolated. 01/10/24 10:02 Wound - Toe Gram Stain - Final 01/10/24 10:02 Wound - Toe Wound Culture - Final Staphylococcus simulans Corynebacterium amycolatum/xer 01/10/24 10:02 Wound - Toe Anaerobic Culture - Final No anaerobic bacteria isolated. 01/08/24 15:50 Blood Culture (Wb) - Anticubital Right Blood Culture - Final No growth in 5 days. 01/08/24 15:35 Blood Culture (Wb) - Anticubital Left Blood Culture - Final No growth in 5 days. Physical Exam Const alert, oriented x3 and no apparent distress General Appearance: cooperative Exam Limitations: no limitations HEENT Head and Scalp: normocephalic and atraumatic Eyes EOMs intact bilaterally General Eye: normal appearance of both eyes Neck full ROM General: trachea midline Resp normal respiratory effort and no use of accessory muscles Effort and Inspection: Negative for labored, stridor or audible wheezes Cardio regular rate and regular rhythm Extremity full ROM Extremity Narrative: LLE postoperative dressings C/D/I Bilateral groin access sites with no focal swelling/hematoma. Skin no rashes or lesions noted Neuro oriented x3, CN's II-XII intact bilaterally, no focal motor deficits and no sensory deficits noted Psych thought process normal, cooperative, affect normal, speech normal and activi ty/motor behavior normal Assessment & Plan Assessment/Plan (1) Atherosclerosis of [place] arteries of extremities with gangrene, left leg: PLAN: She is scheduled for fem-fem bypass tomorrow morning. She remains agreeable to proceed. NPO after midnight. Continue ASA, no need to hold for surgery.
[2024-01-20] MEDS: Albuterol 2.5 MG/3 ML VIAL.NEB. INHALATION (19:23)
[2024-01-20] MEDS: Budesonide Respules 0.5 MG/2 ML AMPUL.NEB. INHALATION (19:23)
[2024-01-20] MEDS: Atorvastatin Calcium 20 MG Tablet PO (22:05)
[2024-01-21] VITALS (27 sets, daily range): BP systolic 122–159; BP diastolic 74–89; PULSE 88–115; RESP 14–28; TEMP 36.2–37.6; O2SAT 92–96; BMI 31.4
[2024-01-21 05:16] LABS: Hematocrit 28.4 % (37-47); Mean Corp Hgb Conc 31.7 g/dL (32-36); Mean Corpuscular Hgb 27.6 pg (27.0-32.0); Mean Corpuscular Volume 87.1 fL (81-99); Mean Platelet Vol. 10.1 fl (6.2-12.0); Platelet Count 386 K/mm3 (150-450); RBC Distribution Width CV 14.4 % (11.6-14.6); RBC Distribution Width SD 45.6 fl (35.1-43.9); Red Blood Count 3.26 M/mm3 (4.2-5.4); White Blood Count 8.3 K/mm3 (4.4-11.0)
[2024-01-21 05:29] LABS: Partial Thromboplast Time 71.6 Seconds (24.1-36.2)
[2024-01-21 05:31] LABS: Anion Gap 5 (5-15); BUN 12 mg/dL (7-18); Calcium,Total 8.8 mg/dL (8.5-10.1); Chloride 106 mmol/L (98-107); Creatinine, Serum 1.72 mg/dL (0.55-1.02); EST Glomerular Filtration Rate 32 mL/min (>60); Est Glom Filt Rate - Afr Amer 38 mL/min (>60); Estimated Creatinine Clearance 31.11 ml/min; Glucose 99 mg/dL (74-106); Potassium 3.5 mmol/L (3.5-5.1); Sodium Level 143 mmol/L (136-145)
--- NOTE | 2024-01-21 06:35 | WOUNDNOTE ---
Pt currently off unit for vascular procedure.
[2024-01-21] MEDS: 0.9% Normal Saline (1000mL) 1,000 ML 15 ML IV (06:40)
[2024-01-21] MEDS: Cefazolin 2 GM in 0.9% Normal Saline (100mL Bag) 100 ML IV (08:00)
[2024-01-21] MEDS: Heparin 10,000 UNITS/10 ML Vial 10000 UNITS (08:35)
[2024-01-21] MEDS: Heparin Injection (Vial) 5,000 UNIT/ML VIAL 5000 UNIT ×2 (08:35→09:08)
--- NOTE | 2024-01-21 10:45 | PCM.OPRPT ---
Report of Operation Date of Procedure: 01/21/24 Pre-Operative Diagnosis: atherosclerosis with gangrene, LLE Post-Operative Diagnosis: same Surgery/Procedure Performed:: right to left femoral-femoral bypass bilateral sartorius flaps Surgeon: Selvin Frost Type of Anesthesia: General Estimated Blood Loss (mL): 25 Description of Procedure: HPI: Patient is a 68-year-old female with atherosclerosis and gangrene of the left lower extremity. She had prior iliac stents which had occluded and efforts at endovascular salvage were unsuccessful. She is taken now for right to left femoral-femoral bypass graft. Description of procedure: Upon obtaining form consent and verification correct patient procedure site patient was taken to the operating room she was placed under general esthesia. She was then positioned prepped and draped in usual sterile fashion a time was performed. Oblique incision was made over the right common femoral artery and both electrocautery was dissect down to the subcutaneous tissue. Self-retaining retractor then put in position further dissection carried down to the inguinal ligament. Superiorly and dissection carried down to the femoral sheath which was incised vertically exposing the common femoral artery. Sharp dissection then used to dissect free the proximal common carotid artery and then a right angle used to place a vessel loop. We then dissected distally to just above the vessels bifurcation and a right angle used to place a vessel loop. Next we created an oblique incision over the left femoral artery and both electrocautery to dissect down through the subcutaneous tissue and self-retaining retractors put in position. Further dissection was carried down to the ligament which was then retracted superiorly and the femoral sheath incised vertically. Sharp dissection used to dissect free the common femoral artery proximal and distal and a right angle was placed Vesseloops. Patient was then heparinized allowed to circulate for 3 minutes used to tunnel from the left femoral to the right femoral incision. Cadaver femoral-popliteal artery had been thawed per rock star instructions and then was flushed with heparinized saline with sidebranches with satisfactory stasis. The right common femoral artery was then occluded with Vesseloops longitudinal arteriotomy created 11 blade was then extended with Stevens scissors. The cadaver graft was then beveled to match the arteriotomy and anastomosis performed using a 5-0 Prolene in running fashion. After completing the suture line the vessels were flushed into the graft marked to maintain orientation. It was then clamped with an atraumatic clamp just beyond the anastomosis. The bypass graft was then secured to the tunneler and pulled through to the left femoral incision with care taken to avoid any rotation. Left common femoral artery was then occluded with Vesseloops longitudinal arteriotomy was created with 11 blade and extended proximal scissors. The cadaver to match the arteriotomy and anastomosis performed using a 5-0 Prolene product being suture line the vessels were back bled graft flushed. After completing suture line clamps removed satisfactory stasis was noted was palpable pulse cross bypass graft and into the outflow common femoral artery. Incisions were then inspected hemostasis and attention turned to the sartorius muscles. Bovie dissection was then used to dissect anterior surface of the right sartorius and the fascia incised vertically. Dissection was then carried up along the lateral aspect of the sartorius up to the insertion into the ASIS. This was then taken down from its insertion and discussed inferiorly medially until good cover with the femoral vessels and graft with no tension. This was then secured in position using 2-0 Vicryl interrupted suture. Next dissection over to the left sartorius muscle was performed the fascia incised. The sartorius muscle then mobilized the skin along the lateral aspect up to the ASIS was then taken down from the is then transposed medially to cover the femoral vessels and graft. Again it was secured in position with a 2-0 Vicryl interrupted suture. Incision was then closed with 3-0 Vicryl, 4 Monocryl for the skin. At the conclusion Prevena wound VAC was applied each of the incisions. Patient awakened from anesthesia and taken the recovery room with anticipated mission to the intensive care unit for hemodynamic and vascular monitoring. Grafts/Implants Used: cadaver sfa/popliteal artery
[2024-01-21] MEDS: HEPARIN/D5w 25,000 UNITS 25,000 UNITS/250 ML IV.SOLN. 5 UNITS CONT INF ×2 (12:15→21:01)
--- NOTE | 2024-01-21 14:56 | PCM.PN.HOSP ---
Reason for Visit Reason for Visit: Diagnoses 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 Patient seen at bedside later this afternoon as she was having her bypass procedure done this morning. Patient was sitting up comfortably in bed, conversing normally, no acute distress. She appeared completely recovered from any anesthesia, no somnolence noted. She denied any left leg pain at this time but had not gotten out of bed yet since the procedure. She had just eaten a light dinner and had no issues with this. No other acute concerns at this time. Objective Data Objective Data Vital Signs: Vital Signs Temp Pulse Resp BP Pulse Ox O2 Del Method O2 Flow Rate 97.3 F L 97 18 140/80 H 95 Nasal Cannula 4 01/21/24 12:00 01/21/24 13:30 01/21/24 13:30 01/21/24 13:30 01/21/24 13:30 01/21/24 13:30 01/21/24 13:30 Oxygen Flow Rate (L/min) 4 Oxygen Delivery Method Nasal Cannula Weight: 78 kg Body Mass Index (BMI) 31.4 Intake & Output: Intake and Output for Last 24 Hours 01/19/24 01/20/24 01/21/24 23:59 23:59 23:59 Intake Total 1000.0 / 1000.0 246.4 / 246.4 315.2 / 315.2 Output Total 450 / 450 Balance 1000.0 / 1000.0 246.4 / 246.4 -134.8 / -134.8 Lab / Micro Data 01/21/24 05:09 01/21/24 05:09 Labs: Laboratory Results - last 24 hr 01/20/24 15:54: Blood Type B POSITIVE, Antibody Screen NEGATIVE 01/21/24 05:09: WBC 8.3, RBC 3.26 L, Hgb 9.0 L, Hct 28.4 L, MCV 87.1, MCH 27.6, MCHC 31.7 L, RDW Std Deviation 45.6 H, RDW Coeff of Alfie 14.4, Plt Count 386, MPV 10.1, APTT 71.6 H, Sodium 143, Potassium 3.5, Chloride 106, Carbon Dioxide 32.0, Anion Gap 5, BUN 12, Creatinine 1.72 H, Estim Creat Clear Calc 31.11, Est GFR (MDRD) Af Amer 38 L, Est GFR (MDRD) Non-Af 32 L, BUN/Creatinine Ratio 7.0 L, Glucose 99, Calcium 8.8 Micro: Microbiology 01/16/24 17:55 Stool Clostridioides difficile (PCR) - Final 01/10/24 10:07 Wound - Toe Gram Stain - Final 01/10/24 10:07 Wound - Toe Wound Culture - Final Raoultella planticola Staphylococcus auricularis 01/10/24 10:07 Wound - Toe Anaerobic Culture - Final No anaerobic bacteria isolated. 01/10/24 10:02 Wound - Toe Gram Stain - Final 01/10/24 10:02 Wound - Toe Wound Culture - Final Staphylococcus simulans Corynebacterium amycolatum/xer 01/10/24 10:02 Wound - Toe Anaerobic Culture - Final No anaerobic bacteria isolated. 01/08/24 15:50 Blood Culture (Wb) - Anticubital Right Blood Culture - Final No growth in 5 days. 01/08/24 15:35 Blood Culture (Wb) - Anticubital Left Blood Culture - Final No growth in 5 days. Physical Exam Const alert, oriented x3 and no apparent distress Constitutional Narrative: Elderly female, pleasant, sitting up comfortably in bed, conversing normally, no acute distress. General Appearance: cooperative and comfortable HEENT normocephalic, head/scalp atraumatic, hearing grossly normal bilaterally, nasal mucous membranes and turbinates normal and moist oral mucous membranes Eyes PERRL, EOMs intact bilaterally and conjunctivae normal Neck full ROM, no lymphadenopathy and supple Lymph Lymphatic: no lymphadenopathy noted Chest inspection of chest normal Resp normal respiratory effort, normal air movement, no use of accessory muscles and clear to auscultation bilaterally Resp Narrative: Breathing comfortably on 2 L nasal cannula. Cardio regular rate, regular rhythm, no murmurs and peripheral pulses 2+ throughout GI normal to inspection, nondistended, normoactive bowel sounds, soft to palpation, non-tender and non-distended Back/Spine normal ROM Extremity no pedal edema Extremity Narrative: Left lower extremity Roland wrap in place. Skin no rashes or lesions noted Neuro moves all extremities and no focal motor deficits Speech: speech normal Psych mental status grossly normal Assessment & Plan Assessment/Plan (1) MELLY (acute kidney injury): (2) Gangrene: (3) Peripheral arterial occlusive disease: PLAN: Plan Patient is a 68-year-old female who presented to [facility] ED on 01/08/2024 with a left fourth toe wound. 1. Left fourth toe gangrene ? Left fourth toe blackened urine is appearing on admission, had been that way for 1 to 2 weeks. ? Foot x-ray on admit within normal limits. ? I&D performed on 01/10 with podiatry, showed evidence of necrotic bone of fourth digit with malodor and scant purulent drainage. Fourth digit was removed at that time. S/p delayed closure and washout with podiatry on 01/13. ? Wound culture grew Staph simulans, another culture grew Raoultella planticola. ID following, treated with ceftriaxone and metronidazole while inpatient, completed course on 01/19. ? Vascular surgery following as below. ? Wound care following. ? PT/OT/case management following. Likely home with home health care on discharge. Patient should be medically ready for discharge in next 1 to 2 days. 2. Severe peripheral vascular disease of left lower extremity ? Chronic in-stent thrombosis of left common and external iliac arteries on imaging. ? Vascular surgery following. S/p angiography and thrombectomy on with incomplete clearance of subacute chronic thrombus. S/p right to left femoral to femoral bypass procedure with Dr. Frost on 01/20. Patient tolerated procedure well, no immediate postoperative complications. ? Will continue heparin drip for now, defer to vascular surgery for recommendation on when to discontinue this. Continue home aspirin, statin and cilostazol. Continue to hold Plavix. ? Continue heparin drip for anticoagulation. Continue home aspirin, statin, cilostazol. Holding Plavix. 3. MELLY, improving ? Creatinine peaked at 2.55, with baseline 0.84. ? FeNa 5.64%. Ultrasound showed mild left-sided nephrosis. ? Nephrology following. Suspect ATN due to vancomycin versus underlying infection, versus possible GN. Patient notably did receive contrast after initial MELLY. ? Creatinine slowly improving, has had adequate urine output. Monitor BMP and urine output daily. Avoid nephrotoxins. 4. Acute on chronic anemia ? Hemoglobin 13.4 on admit, down trended to 11-12 with IV fluid administration, was at baseline. ? Hemoglobin has slowly down trended during hospitalization but generally stable around 9. Suspect secondary to blood loss with procedures as well as blood draws during hospitalization. ? Monitor CBC daily. Chronic medical conditions: ? COPD: Not on home O2. Continue home inhalers. Incentive spirometry at bedside. ? Hypertension: Stable. Continue home amlodipine. ? Former tobacco user: Advised continued cessation. ? Obesity: BMI 31 on admit. Complicates hospital course, care and prognosis. DVT prophylaxis: Heparin drip CODE STATUS: Full code, verified Expected disposition: Home with [facility], 1-2 days Total clinical time spent by myself addressing the patient's medical issues, reviewing all the data, and collaborating with patient's care team: 25 minutes. Charges/Coding Visit Charges Inpatient E&M: 64435 Subs Hosp L1
[2024-01-21] MEDS: 0.45% Normal Saline 1,000 ML 100 ML IV (15:46)
[2024-01-21] MEDS: Albuterol 2.5 MG/3 ML VIAL.NEB. INHALATION (18:51)
[2024-01-21] MEDS: Budesonide Respules 0.5 MG/2 ML AMPUL.NEB. INHALATION (18:51)
--- NOTE | 2024-01-21 19:23 | PCM.PN.REN ---
Subjective Subjective no new complaints Objective Data Objective Data Vital Signs: Vital Signs Temp Pulse Resp BP Pulse Ox O2 Del Method O2 Flow Rate 98.2 F 96 23 H 134/85 H 94 Nasal Cannula 2 01/21/24 17:00 01/21/24 18:00 01/21/24 18:00 01/21/24 18:00 01/21/24 18:00 01/21/24 18:00 01/21/24 18:00 Oxygen Flow Rate (L/min) 2 Oxygen Delivery Method Nasal Cannula Weight: 78 kg Body Mass Index (BMI) 31.4 Intake & Output: Intake and Output for Last 24 Hours 01/19/24 01/20/24 01/21/24 23:59 23:59 23:59 Intake Total 1000.0 / 1000.0 246.4 / 246.4 451.95 / 451.95 Output Total 750 / 750 Balance 1000.0 / 1000.0 246.4 / 246.4 -298.05 / -298.05 Lab / Micro Data 01/21/24 05:09 01/21/24 05:09 Labs: Laboratory Results - last 24 hr 01/21/24 05:09: WBC 8.3, RBC 3.26 L, Hgb 9.0 L, Hct 28.4 L, MCV 87.1, MCH 27.6, MCHC 31.7 L, RDW Std Deviation 45.6 H, RDW Coeff of Alfie 14.4, Plt Count 386, MPV 10.1, APTT 71.6 H, Sodium 143, Potassium 3.5, Chloride 106, Carbon Dioxide 32.0, Anion Gap 5, BUN 12, Creatinine 1.72 H, Estim Creat Clear Calc 31.11, Est GFR (MDRD) Af Amer 38 L, Est GFR (MDRD) Non-Af 32 L, BUN/Creatinine Ratio 7.0 L, Glucose 99, Calcium 8.8 Micro: Microbiology 01/16/24 17:55 Stool Clostridioides difficile (PCR) - Final 01/10/24 10:07 Wound - Toe Gram Stain - Final 01/10/24 10:07 Wound - Toe Wound Culture - Final Raoultella planticola Staphylococcus auricularis 01/10/24 10:07 Wound - Toe Anaerobic Culture - Final No anaerobic bacteria isolated. 01/10/24 10:02 Wound - Toe Gram Stain - Final 01/10/24 10:02 Wound - Toe Wound Culture - Final Staphylococcus simulans Corynebacterium amycolatum/xer 01/10/24 10:02 Wound - Toe Anaerobic Culture - Final No anaerobic bacteria isolated. 01/08/24 15:50 Blood Culture (Wb) - Anticubital Right Blood Culture - Final No growth in 5 days. 01/08/24 15:35 Blood Culture (Wb) - Anticubital Left Blood Culture - Final No growth in 5 days. Physical Exam Narrative Alert awake oriented x 3 no obvious distress s1s2 no murmurs lungs clear abdomen soft no edema Assessment & Plan Assessment/Plan (1) MELLY (acute kidney injury): PLAN: Baseline creatinine was normal, close to baseline On admission. She has been on vancomycin and there was a trough which was elevated. Other medications reviewed. C3 normal likely ATN Renal ultrasound no hydro right kidney, mild hydro left kidney, bladder collapse, ureter collapsed, likely chronic She had a CTA earlier this month and it seems she did have mild left-sided hydronephrosis on review of those images as well. UA negative protein 25 occult blood, no leukocyte esterase.urine sodium 83. Creatinine is trending down.
[2024-01-21] MEDS: Atorvastatin Calcium 20 MG Tablet PO (20:55)
[2024-01-22] VITALS (13 sets, daily range): BP systolic 113–140; BP diastolic 64–91; PULSE 83–100; RESP 16–22; TEMP 36.6–36.9; O2SAT 86–99; BMI 31.7
[2024-01-22] MEDS: 0.45% Normal Saline 1,000 ML 100 ML IV ×2 (00:20→09:10)
[2024-01-22 04:28] LABS: Hematocrit 29.2 % (37-47); Mean Corp Hgb Conc 30.8 g/dL (32-36); Mean Corpuscular Hgb 27.5 pg (27.0-32.0); Mean Corpuscular Volume 89.3 fL (81-99); Mean Platelet Vol. 10.1 fl (6.2-12.0); Platelet Count 424 K/mm3 (150-450); RBC Distribution Width CV 14.3 % (11.6-14.6); RBC Distribution Width SD 46.6 fl (35.1-43.9); Red Blood Count 3.27 M/mm3 (4.2-5.4); White Blood Count 13.7 K/mm3 (4.4-11.0)
[2024-01-22] MEDS: 0.9% Saline Lock 10 ML Syringe IV ×3 (04:33→06:51)
[2024-01-22 04:49] LABS: Anion Gap 5 (5-15); BUN 14 mg/dL (7-18); BUN/Creat Ratio 8.2 RATIO (10-20); Calcium,Total 8.3 mg/dL (8.5-10.1); Chloride 104 mmol/L (98-107); EST Glomerular Filtration Rate 32 mL/min (>60); Est Glom Filt Rate - Afr Amer 39 mL/min (>60); Estimated Creatinine Clearance 31.52 ml/min; Glucose 155 mg/dL (74-106); Potassium 3.7 mmol/L (3.5-5.1); Sodium Level 140 mmol/L (136-145)
[2024-01-22] MEDS: Acetaminophen 500 MG Tablet 1000 MG PO (06:51)
[2024-01-22] MEDS: amLODIPine 5 MG Tablet PO (08:30)
[2024-01-22] MEDS: Cilostazol 50 MG Tablet PO (08:30)
[2024-01-22] MEDS: Aspirin E.C. 81 MG Tablet PO (08:30)
--- NOTE | 2024-01-22 11:01 | PCM.DC ---
Discharge Instructions Diet Discharge Diet: No restrictions Activity Discharge Activity: No Restrictions Weight Bearing Status: Full weight bearing Follow Up Care Test Results: Test results from this visit will be discussed in further detail at your follow-up appointment, if applicable. Discharge Plan Admission Admit Date/Time: 01/08/24 17:23 Primary Reason for Your Visit: left toe gangrene Attending Provider: Armani Moses Primary Care Provider: Vincent Ashley NP Consulting Providers: Liz Murillo; Armani Moses; Selvin Barrera; Kevin Souza; Lynn Enriquez; Gareth Camacho; Selvin Frost Instructions Additional Instructions / Restrictions: Continue all home medications as normal. Follow-up with the vascular surgery office as indicated by them. Follow-up with wound care as scheduled. Please have a repeat BMP drawn in 1 to 2 weeks and follow-up with your PCP to ensure that your kidney function is continuing to improve back to baseline. Discharge Orders/Prescriptions Prescriptions: Continued acetaminophen [Tylenol Arthritis Pain] 650 mg tablet extended release 650 mg PO Q6H PRN (Reason: Pain) amlodipine 5 mg tablet 5 mg PO DAILY aspirin 81 mg tablet,delayed release (DR/EC) 81 mg PO DAILY cilostazol 50 mg tablet 50 mg PO DAILY Rx Instructions: take before meals clopidogrel 75 mg tablet 75 mg PO DAILY rosuvastatin 10 mg tablet 10 mg PO DAILY albuterol sulfate 90 mcg/actuation HFA aerosol inhaler 2 puff INHALATION Q6H PRN (Reason: shortness of breath or wheezing) budesonide-formoterol 160-4.5 mcg/actuation HFA aerosol inhaler 2 puff INHALATION BID Referrals / Follow Up: Gareth Camacho DPM [Med Staff - Active Staff] - (Patient will follow-up [address] Camacho at the wound care center Thursday. Please call for appointment date and time.) Vincent Ashley NP, [employer] [Primary Care Provider] - Disposition Disposition (needs filled in before D/C Order can be placed): Home, Self Care
--- NOTE | 2024-01-22 11:08 | PCM.DC.SUM ---
Providers Date of Admission: 01/08/24 Date of Discharge: 01/22/24 Primary Care Physician: Vincent Ashley, SENIOR NUCLEAR MEDICINE TECHNOLOGIST-C Consultations 01/08/24 18:24 Consult: Onc/Wound/welfare adviser Routine Comment: Reason for Consult:: left toe wound 01/09/24 09:19 Consult: Podiatry Routine Consulting Provider: Gareth Camacho Reason for Consult: foot infection EMERGENT Consult: No MD Notified: Yes Date Notified: 01/09/24 Time Notified: 09:19 Method of Notification: Verbal 01/09/24 11:47 Consult: Vascular Surgery Routine Consulting Provider: Selvin Frost Reason for Consult: left 4th toe gangrene, h/o severe PAD EMERGENT Consult: No MD Notified: Yes Date Notified: 01/09/24 Time Notified: 13:05 Method of Notification: Text 01/11/24 07:30 Consult: Infectious Disease Routine Consulting Provider: Kevin Souza Reason for Consult: osteomyelitis EMERGENT Consult: No MD Notified: Yes Date Notified: 01/11/24 Time Notified: 07:30 Method of Notification: Text 01/13/24 07:14 Consult: Nephrology Routine Consulting Provider: Lynn Enriquez Reason for Consult: MELLY EMERGENT Consult: No MD Notified: Yes Date Notified: 01/13/24 Time Notified: 09:15 Method of Notification: spoke with office Reason For Visit: GANGRENE LEFT 4TH TOE Diagnosis Discharge Diagnosis (1) MELLY (acute kidney injury): Status: Acute Code(s): N17.9 - Acute kidney failure, unspecified Medications at Discharge Home Medications acetaminophen 650 mg tablet,extended release (Tylenol Arthritis Pain) 650 mg PO Q6H PRN Pain 06/25/18 albuterol sulfate 90 mcg/actuation aerosol inhaler 2 puff inhalation Q6H PRN shortness of breath or wheezing 01/08/24 amlodipine 5 mg tablet 5 mg PO DAILY 01/08/24 aspirin 81 mg tablet,delayed release 81 mg PO DAILY 01/08/24 budesonide-formoterol HFA 160 mcg-4.5 mcg/actuation aerosol inhaler 2 puff inhalation BID 01/08/24 cilostazol 50 mg tablet 50 mg PO DAILY 01/08/24 clopidogrel 75 mg tablet 75 mg PO DAILY 01/08/24 rosuvastatin 10 mg tablet 10 mg PO DAILY 01/08/24 rivaroxaban 2.5 mg tablet (Xarelto) 2.5 mg PO BID #60 tabs 01/22/24 Hospital Course Operations - (Right to left femoral-femoral bypass, aortogram with percutaneous thrombectomy of left common/external iliac veins and left common femoral artery, left fourth toe amputation) Procedures Transthoracic echo and - (Foot x-ray, chest x-ray, extremity arterial study, toe x-ray, renal ultrasound) Summary of Care Provided Minutes Spent on Discharge: 35 Hospital Course: Patient is a 68-year-old female who presented to [facility] ED on 01/08/2024 with a left fourth toe wound. Hospital course as noted below. Patient discharged home with no therapy needs in stable condition on 01/21. 1. Left fourth toe gangrene ? Left fourth toe blackened urine is appearing on admission, had been that way for 1 to 2 weeks. ? Foot x-ray on admit within normal limits. ? I&D performed on 01/10 with podiatry, showed evidence of necrotic bone of fourth digit with malodor and scant purulent drainage. Fourth digit was removed at that time. S/p delayed closure and washout with podiatry on 01/13. ? Wound culture grew Staph simulans, another culture grew Raoultella planticola. ID followed, treated with ceftriaxone and metronidazole while inpatient, completed course on 01/19. ? Vascular surgery followed as below. ? Wound care followed. Will be seeing the patient in the wound center on Thursday and Thursday of next week. ? PT/OT/case management followed. Stable for discharge home without any therapy needs on 01/21. 2. Severe peripheral vascular disease of left lower extremity ? Chronic in-stent thrombosis of left common and external iliac arteries on imaging. ? Vascular surgery followed. S/p angiography and thrombectomy on with incomplete clearance of subacute chronic thrombus. S/p right to left femoral to femoral bypass procedure with Dr. Frost on 01/20. Patient tolerated procedure well, no immediate postoperative complications. Heparin drip discontinued on evening of 01/20. ? Plavix was held during admission, okay to resume on discharge. Continue home aspirin, statin and cilostazol. 3. MELLY, improving ? Creatinine peaked at 2.55, with baseline 0.84. ? FeNa 5.64%. Ultrasound showed mild left-sided nephrosis. ? Nephrology followed. Suspect ATN due to vancomycin versus underlying infection, versus possible GN. Patient notably did receive contrast after initial MELLY. ? Creatinine slowly improved during hospitalization, Cr ~1.70 on discharge. Had adequate urine output throughout admission. Recommend repeat BMP in 5 to 7 days post discharge to ensure continued improvement of kidney function. 4. Acute on chronic anemia ? Hemoglobin 13.4 on admit, down trended to 11-12 with IV fluid administration, was at baseline. ? Hemoglobin has slowly down trended during hospitalization but generally stable around 9. Suspect secondary to blood loss with procedures as well as blood draws during hospitalization. ? Recommend repeat CBC in 5 to 7 days post discharge to ensure stability of hemoglobin. Chronic medical conditions: ? COPD: Not on home O2. Continue home inhalers. Incentive spirometry at bedside. ? Hypertension: Stable. Continue home amlodipine. ? Former tobacco user: Advised continued cessation. ? Obesity: BMI 31 on admit. Complicated hospital course, care and prognosis. Total clinical time spent by myself addressing the patient's medical issues, reviewing all the data, and collaborating with patient's care team: 25 minutes. Physical Exam Const alert, oriented x3 and no apparent distress Constitutional Narrative: Elderly female, pleasant, sitting up comfortably in bed, conversing normally, no acute distress. General Appearance: cooperative and comfortable HEENT normocephalic, head/scalp atraumatic, hearing grossly normal bilaterally, nasal mucous membranes and turbinates normal and moist oral mucous membranes Eyes PERRL, EOMs intact bilaterally and conjunctivae normal Neck full ROM, no lymphadenopathy and supple Lymph Lymphatic: no lymphadenopathy noted Chest inspection of chest normal Resp normal respiratory effort, normal air movement, no use of accessory muscles and clear to auscultation bilaterally Resp Narrative: Breathing comfortably on 2 L nasal cannula. Cardio regular rate, regular rhythm, no murmurs and peripheral pulses 2+ throughout GI normal to inspection, nondistended, normoactive bowel sounds, soft to palpation, non-tender and non-distended Back/Spine normal ROM Extremity no pedal edema Extremity Narrative: Left lower extremity Roland wrap in place. Skin no rashes or lesions noted Neuro moves all extremities and no focal motor deficits Speech: speech normal Psych mental status grossly normal Weight / BMI Weight Weight: 78.2 kg Body Mass Index (BMI) 31.7 ABG / Lab / Microbiology Data 03/08/24 04:20 01/22/24 04:20 Laboratory: Laboratory Results - last 24 hr 01/22/24 04:20: WBC 13.7 H, RBC 3.27 L, Hgb 9.0 L, Hct 29.2 L, MCV 89.3, MCH 27.5, MCHC 30.8 L, RDW Std Deviation 46.6 H, RDW Coeff of Alfie 14.3, Plt Count 424, MPV 10.1, APTT 204.0 H*, Sodium 140, Potassium 3.7, Chloride 104, Carbon Dioxide 31.0, Anion Gap 5, BUN 14, Creatinine 1.70 H, Estim Creat Clear Calc 31.52, Est GFR (MDRD) Af Amer 39 L, Est GFR (MDRD) Non-Af 32 L, BUN/Creatinine Ratio 8.2 L, Glucose 155 H, Calcium 8.3 L Microbiology: Microbiology 01/16/24 17:55 Stool Clostridioides difficile (PCR) - Final 01/10/24 10:07 Wound - Toe Gram Stain - Final 01/10/24 10:07 Wound - Toe Wound Culture - Final Raoultella planticola Staphylococcus auricularis 01/10/24 10:07 Wound - Toe Anaerobic Culture - Final No anaerobic bacteria isolated. 01/10/24 10:02 Wound - Toe Gram Stain - Final 01/10/24 10:02 Wound - Toe Wound Culture - Final Staphylococcus simulans Corynebacterium amycolatum/xer 01/10/24 10:02 Wound - Toe Anaerobic Culture - Final No anaerobic bacteria isolated. 01/08/24 15:50 Blood Culture (Wb) - Anticubital Right Blood Culture - Final No growth in 5 days. 01/08/24 15:35 Blood Culture (Wb) - Anticubital Left Blood Culture - Final No growth in 5 days. D/C Instructions Discharge Diet: No restrictions Weight Bearing Status: Full weight bearing Meaningful Use Info Meaningful Use Diagnoses (Choose all that apply): None applicable Discharge Plan Admission Admit Date/Time: 01/08/24 17:23 Primary Reason for Your Visit: left toe gangrene Attending Provider: Armani Moses Primary Care Provider: Vincent Ashley SENIOR NUCLEAR MEDICINE TECHNOLOGIST Consulting Providers: Liz Murillo; Armani Moses; Selvin Barrera; Kevin Souza; Lynn Enriquez; Gareth Camacho; Selvin Frost Instructions Additional Instructions / Restrictions: Continue all home medications as normal. Follow-up with the vascular surgery office as indicated by them. Follow-up with wound care as scheduled. Please have a repeat BMP drawn in 1 to 2 weeks and follow-up with your PCP to ensure that your kidney function is continuing to improve back to baseline. Discharge Orders/Prescriptions Prescriptions: Continued acetaminophen [Tylenol Arthritis Pain] 650 mg tablet extended release 650 mg PO Q6H PRN (Reason: Pain) amlodipine 5 mg tablet 5 mg PO DAILY aspirin 81 mg tablet,delayed release (DR/EC) 81 mg PO DAILY cilostazol 50 mg tablet 50 mg PO DAILY Rx Instructions: take before meals clopidogrel 75 mg tablet 75 mg PO DAILY rosuvastatin 10 mg tablet 10 mg PO DAILY albuterol sulfate 90 mcg/actuation HFA aerosol inhaler 2 puff INHALATION Q6H PRN (Reason: shortness of breath or wheezing) budesonide-formoterol 160-4.5 mcg/actuation HFA aerosol inhaler 2 puff INHALATION BID No Action Xarelto 2.5 mg tablet 2.5 mg PO BID Qty: 60 5RF Referrals / Follow Up: Gareth Camacho DPM [Med Staff - Active Staff] - (Patient will follow-up [address] Camacho at the wound care center Thursday. Please call for appointment date and time.) Vincent Ashley SENIOR NUCLEAR MEDICINE TECHNOLOGIST, SENIOR NUCLEAR MEDICINE TECHNOLOGIST-C [Primary Care Provider] - Disposition Disposition (needs filled in before D/C Order can be placed): Home, Self Care Charges/Coding Visit Charges Inpatient E&M: 51028 Disch Hosp >30min
--- NOTE | 2024-01-22 11:26 | CASEMGMT ---
Discharge Planning A list of?HH providers including quality and resource use data and consistent with the patient's preferred geographic region, medical needs, and insurance network was created in [facility] Guide.? This list was provided to the RN ROQUE. Chantal Leon, Discharge Planning Asst.
--- NOTE | 2024-01-22 11:54 | PN.SURG_ITS ---
Subjective Subjective Patient was seen resting comfortably in bed this morning. She reports some pain at the bilateral groin access sites with movement, but otherwise has no complaints. Her LLE wound dressings were just changed, she reports the wound is looking good. Heparin was stopped early this morning due to elevated aPTTs. Hgb is stable. BPs have been stable. She has tolerated a normal diet. Has had BM. Ambulated well with PT. Objective Data Objective Data Vital Signs: Vital Signs Temp Pulse Resp BP Pulse Ox O2 Del Method O2 Flow Rate 98.5 F 95 21 H 115/64 86 Nasal Cannula 0 01/22/24 08:00 01/22/24 10:00 01/22/24 10:00 01/22/24 10:00 01/22/24 11:41 01/22/24 10:00 01/22/24 11:41 Oxygen Flow Rate (L/min) [At 0 REST on Room Air] Oxygen Flow Rate (L/min) [At 2 REST with Oxygen] Oxygen Flow Rate (L/min) [ 2 AMBULATING with Oxygen #1] Oxygen Flow Rate (L/min) [ 0 AMBULATING on Room Air] Oxygen Flow Rate (L/min) 2 Oxygen Delivery Method Nasal Cannula Weight: 172 lb 6.424 oz Body Mass Index (BMI) 31.7 Intake & Output: Intake and Output for Last 24 Hours 01/20/24 01/21/24 01/22/24 23:59 23:59 23:59 Intake Total 246.4 / 246.4 495.78 / 495.78 1784.92 / 1784.92 Output Total 1275 / 1275 450 / 450 Balance 246.4 / 246.4 -779.22 / -779.22 1334.92 / 1334.92 Lab / Micro Data 01/22/24 04:20 01/22/24 04:20 Labs: Laboratory Results - last 24 hr 01/22/24 04:20: WBC 13.7 H, RBC 3.27 L, Hgb 9.0 L, Hct 29.2 L, MCV 89.3, MCH 27.5, MCHC 30.8 L, RDW Std Deviation 46.6 H, RDW Coeff of Alfie 14.3, Plt Count 424, MPV 10.1, APTT 204.0 H*, Sodium 140, Potassium 3.7, Chloride 104, Carbon Dioxide 31.0, Anion Gap 5, BUN 14, Creatinine 1.70 H, Estim Creat Clear Calc 31.52, Est GFR (MDRD) Af Amer 39 L, Est GFR (MDRD) Non-Af 32 L, BUN/Creatinine Ratio 8.2 L, Glucose 155 H, Calcium 8.3 L Micro: Microbiology 01/16/24 17:55 Stool Clostridioides difficile (PCR) - Final 01/10/24 10:07 Wound - Toe Gram Stain - Final 01/10/24 10:07 Wound - Toe Wound Culture - Final Raoultella planticola Staphylococcus auricularis 01/10/24 10:07 Wound - Toe Anaerobic Culture - Final No anaerobic bacteria isolated. 01/10/24 10:02 Wound - Toe Gram Stain - Final 01/10/24 10:02 Wound - Toe Wound Culture - Final Staphylococcus simulans Corynebacterium amycolatum/xer 01/10/24 10:02 Wound - Toe Anaerobic Culture - Final No anaerobic bacteria isolated. 01/08/24 15:50 Blood Culture (Wb) - Anticubital Right Blood Culture - Final No growth in 5 days. 01/08/24 15:35 Blood Culture (Wb) - Anticubital Left Blood Culture - Final No growth in 5 days. Physical Exam Const alert, oriented x3 and no apparent distress General Appearance: cooperative Exam Limitations: no limitations HEENT Head and Scalp: normocephalic and atraumatic Eyes EOMs intact bilaterally General Eye: normal appearance of both eyes Neck full ROM General: trachea midline Resp normal respiratory effort and no use of accessory muscles Effort and Inspection: Negative for labored, stridor or audible wheezes Cardio regular rate and regular rhythm Extremity full ROM Extremity Narrative: LLE postoperative dressings C/D/I Bilateral groin incision sites with Prevena Vacuum dressings in place, maintaining good seal. Minimal ecchymosis noted. No hematoma/focal swelling. No drainage. Palpable pulse in the bypass. Good doppler signal in the L popliteal. Could not assess the L PT/DP due to wound dressings. Some LLE edema. Skin no rashes or lesions noted Neuro oriented x3, CN's II-XII intact bilaterally, no focal motor deficits and no sensory deficits noted Psych thought process normal, cooperative, affect normal, speech normal and activity/motor behavior normal Assessment & Plan Assessment/Plan (1) Atherosclerosis of [place] arteries of extremities with gangrene, left leg: PLAN: She is recovering well from fem-fem bypass yesterday. There is palpable pulse in the bypass. LLE edema is expected secondary to reperfusion, recommend HOSSEIN wrap and elevation when resting to manage this. She will continue with Plavix and ASA at home. Will also add Xarelto 2.5mg BID, a prescription has been sent to her pharmacy. The bilateral groin Prevena vacuum dressings should remain in place x 1 week. I instructed her as to how to remove these, she can contact the office if she has any trouble with this. The incisions are closed with skin glue so may be left open to air once vac dressings are removed. The skin glue will flake/peel off on its own over the next few weeks, she is instructed not to pick at it. She should not lift greater than 20 pounds for 3 weeks from vascular perspective . Other activity restricts as per podiatry. Will have her follow-up in the office in 2-3 weeks, our office will contact her to schedule. She has also been provided with a card with our phone number should she need to contact us sooner.
--- NOTE | 2024-01-22 12:40 | CASEMGMT ---
DALIA NEVAREZ note: Discharge order is in. Noted scripts in [facility] for WW and BSC w/instructions for BSC to be delivered to pt's home. [place] Norbert [place] [facility] to be [place] to pt's home, it may not arrive until Thursday, but she states she would be able to deliver it to pt's room today, if she is able to take it home w/her. DALIA NEVAREZ also spoke w/therapy who has worked w/pt today and additional therapy is recommended. DLAIA NEVAREZ to room. Pt sitting up in chair in room. Sister in room and will be taking pt home. Pt made aware of above. Pt verifies she still wishes to discharge home and declines wanting HHC, stating she does not anyone coming into her home as it upsets her son when routine at the home is disrupted. She also declines wanting OP therapy. She states therapy has given her a list of exercises to do and she will just do them on her own. She was made aware, if she changes her mind about HHC or OP therapy once she returns home, to discuss this w/her PCP. She voices understanding. Sister states BSC would fit in her jeep and they can take it home today. Norbert [place] [facility] [place] and she states will deliver BSC and WW to pt's room today. Referrals for both WW and BSC sent [place] [facility] via [facility]. Shower chair is recommende by therapy as well. Pt made aware insurance will not cover for shower chair and made aware of several locations this can be purchased. DALIA NEVAREZ also informed pt qualifies for home O2 @ 2 l/m w/exertion. Script received from Dr Moses and sent to [facility]. Pt made aware portable O2 tank to be delivered to her room and discussed home O2 set-up process. Questions answered. Pt's sister states she would like to talk w/[employer]. RNKatherine, made aware and will f/u about this. Faviola GUSMAN RN, CM
[2024-01-22 16:27] LABS: ACT Activated Clotting Time 228 sec (74-137)
== END 2024-01-22 13:55 | disposition home or self-care (01) | DRG 270 ==
LOC: ED 17:02 → MS3 17:30 → ICU 01-14 13:56 → MS3 01-14 18:17 → MS2 01-21 10:55 → ICU 01-21 13:31
PROVIDERS: Family Medicine; Internal Medicine; Internal Medicine Infectious Disease; Internal Medicine Nephrology; Physician Assistant; Podiatrist Foot & Ankle Surgery; Surgery Trauma Surgery; Admitting Provider Internal Medicine; Emergency Provider Emergency Medicine; PCP Nurse Practitioner Family; Visit Provider Hospitalist
PROC: 0Y6W0Z0 Detachment at Left 4th Toe, Complete, Open Approach (ICD-10-PCS; principal; 2024-01-13 17:15)
PROC: 041K0KJ Bypass Right Femoral Artery to Left Femoral Artery with Nonautologous Tissue Substitute, Open Approach (ICD-10-PCS; principal; 2024-01-21 07:00)
DX: I70.262 Atherosclerosis of native arteries of extremities with gangrene, left leg (principal); N17.0 Acute kidney failure with tubular necrosis; T82.868A Thrombosis due to vascular prosthetic devices, implants and grafts, initial encounter; D62 Acute posthemorrhagic anemia; J44.9 Chronic obstructive pulmonary disease, unspecified; I10 Essential (primary) hypertension; E66.9 Obesity, unspecified; Z95.820 Peripheral vascular angioplasty status with implants and grafts; X58.XXXA Exposure to other specified factors, initial encounter; B95.61 Methicillin susceptible Staphylococcus aureus infection as the cause of diseases classified elsewhere; B95.7 Other staphylococcus as the cause of diseases classified elsewhere; B96.89 Other specified bacterial agents as the cause of diseases classified elsewhere; Z68.31 Body mass index [BMI] 31.0-31.9, adult; Z79.01 Long term (current) use of anticoagulants; Z79.02 Long term (current) use of antithrombotics/antiplatelets; Z79.82 Long term (current) use of aspirin; Z79.899 Other long term (current) drug therapy; Z87.891 Personal history of nicotine dependence
CPT/HCPCS: 36200; 36415; 36569; 37184; 37185; 37252; 37253; 71045; 73630; 73660; 75625; 76000; 76770; 76937; 80048; 80061; 80202; 81001; 82570; 83735; 84300; 85025; 85027; 85347; 85610; 85652; 85730; 86140; 86160; 86850; 86900; 86901; 87040; 87070; 87075; 87077; 87102; 87186; 87205; 87206; 87493; 88305; 88311; 93005; 93306; 93923; 94640; 94668; 94762; 97116; 97162; 97166; 97530; 99152; 99153; 99252; 99284; A4648; C1724; C1760; C1769; C1894; J7030; J7040; J7050; Q9967; A4216; C1757; C1887; G0463; J2405

== ENCOUNTER → 2024-01-27 | Outpatient (CLI) | payer MEDICARE, SELFPAY ==
[2024-01-27 10:04] LABS: Hematocrit 31.3 % (37-47); Hemoglobin 9.7 g/dL (12.0-15.0); Mean Corpuscular Hgb 26.9 pg (27.0-32.0); Mean Corpuscular Volume 86.9 fL (81-99); Mean Platelet Vol. 10.6 fl (6.2-12.0); Platelet Count 569 K/mm3 (150-450); RBC Distribution Width CV 14.4 % (11.6-14.6); RBC Distribution Width SD 45.2 fl (35.1-43.9); White Blood Count 11.4 K/mm3 (4.4-11.0)
[2024-01-27 10:42] LABS: Vitamin D,25 Hydroxy 6.4 ng/mL
[2024-01-27 10:48] LABS: ALB/GLOB Ratio 0.6 RATIO (0.9-2.4); AST(SGOT) 25 U/L (15-37); Alanine Aminotransfer ALT/SGPT 23 U/L (13-56); Albumin, Serum 2.9 g/dL (3.2-5.0); Alkaline Phosphatase 76 U/L (45-117); Anion Gap 10 (5-15); BUN 11 mg/dL (7-18); BUN/Creat Ratio 9.2 RATIO (10-20); Calcium,Total 9.2 mg/dL (8.5-10.1); Chloride 100 mmol/L (98-107); Cholesterol 141 mg/dL (200); Creatinine, Serum 1.19 mg/dL (0.55-1.02); EST Glomerular Filtration Rate 48 mL/min (>60); Est Glom Filt Rate - Afr Amer 58 mL/min (>60); Globulin 4.9 g/dL (2.2-4.2); Glucose 93 mg/dL (74-106); High Density Lipoprotein 38 mg/dL; Potassium 3.2 mmol/L (3.5-5.1); Protein, Total 7.8 g/dL (6.4-8.2); Sodium Level 136 mmol/L (136-145); Triglycerides 132 mg/dL; Very Low Density Lipoprotein 26 mg/dL (5-40)
== END | disposition home or self-care (01) ==
LOC: LAB 09:12
PROVIDERS: PCP Nurse Practitioner Family; Referring Provider Nurse Practitioner Family; Visit Provider Nurse Practitioner Family
DX: I12.9 Hypertensive chronic kidney disease with stage 1 through stage 4 chronic kidney disease, or unspecified chronic kidney disease (principal); I73.9 Peripheral vascular disease, unspecified; N18.30 Chronic kidney disease, stage 3 unspecified; E78.5 Hyperlipidemia, unspecified
CPT/HCPCS: 36415; 80053; 80061; 82043; 82306; 82570; 85027

== ENCOUNTER 2024-02-03 11:30 | Outpatient (RCR) | payer MEDICARE, SELFPAY ==
[2024-01-27 10:00] VITALS: BP 146/79; PULSE 134; RESP 18; TEMP 36.5; BMI 32.1
--- NOTE | 2024-01-27 12:01 | HP.PCM_ITS ---
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 Camacho consisting of incision bone cortex with delayed primary closure, date of surgery 01/05/2024. Patient was seen in the hospital in consultation by medicine, infectious disease and vascular surgery. Patient has undergone intervention by Dr. Frost of vascular surgery and is improving well with no complaints to her bilateral lower extremities. Patient currently denies any pain to the left foot. She does admit to mild smoking after discharge. Patient is not diabetic. She denies any open lesions or abrasions. Denies trauma. Denies constitutional symptoms. No other pedal complaints at this time. [facility] Medical History Arthritis Carotid stenosis, bilateral Cervical cancer Peripheral arterial occlusive disease PVD (peripheral vascular disease) Tobacco abuse Home Medications acetaminophen 650 mg tablet,extended release (Tylenol Arthritis Pain) 650 mg PO Q6H PRN Pain 06/25/18 [History Last Taken Unknown] albuterol sulfate 90 mcg/actuation aerosol inhaler 2 puff inhalation Q6H PRN shortness of breath or wheezing 01/08/24 [History Last Taken Unknown] amlodipine 5 mg tablet 5 mg PO DAILY 01/08/24 [History Last Taken Unknown] aspirin 81 mg tablet,delayed release 81 mg PO DAILY 01/08/24 [History Last Taken Unknown] budesonide-formoterol HFA 160 mcg-4.5 mcg/actuation aerosol inhaler 2 puff inhalation BID 01/08/24 [History Last Taken Unknown] cilostazol 50 mg tablet 50 mg PO DAILY 01/08/24 [History Last Taken Unknown] clopidogrel 75 mg tablet 75 mg PO DAILY 01/08/24 [History Last Taken Unknown] rosuvastatin 10 mg tablet 10 mg PO DAILY 01/08/24 [History Last Taken Unknown] rivaroxaban 2.5 mg tablet (Xarelto) 2.5 mg PO BID #60 tabs 01/22/24 [Rx Last Taken Unknown] Allergy/AdvReac Type Severity Reaction Status Date / Time No Known Allergies Allergy Verified 01/08/24 13:35 Family History Mother Breast cancer Surgical History S/P LEFT ARTERIOGRAM Social History Smoking Status: Light Smoker (<10/day) alcohol intake: never Vital Signs Vital Signs Vital Signs: 01/27/24 10:00 Temperature 97.7 F L Temperature Source Temporal Pulse Rate 134 H Respiratory Rate 18 Blood Pressure 146/79 H Blood Pressure Mean 101 Blood Pressure Source Monitor Blood Pressure Position Semi-Fowlers Blood Pressure Location Left Arm Oxygen Delivery Method Room Air Weight Weight: 77.111 kg Body Mass Index (BMI) 32.1 Physical Exam Narrative Vascular: DP and PT pulses are palpable to left lower extremity. Nonpitting edema appreciated to left lower extremity. Skin temperature gradient is warm to warm from proximal ankle to distal digits bilateral. No evidence of erythema or proximal streaking. Neurological: Light touch and epicritic station is intact. Dermatological: Evidence of well coapted incision to the level of the amputated fourth digit with no evidence of surgical wound dehiscence, erythema or proximal streaking. No sign of infection. Webspaces 1 through 4 are clean dry and intact bilateral. Musculoskeletal: Muscle strength is 5 out of 5 in all quadrants bilateral. Mild palpatory tenderness appreciated to the incision of the left foot. No pain with calf compression. Debridement Note Debridement Note Post-Debridement Measurements and Additional Note: Post-Debridement Measurements/Treatment WC - Nurse 1 - General Ulcer Assessment Start: 01/27/24 09:59 Freq: Status: Active Protocol: [email or web address] Activity Type Activity Date Activity User E-sign Co-sign Detail Recorded Client Recorded Date Recorded By Document 01/27/24 10:00 KW Desktop 01/27/24 10:14 KW 01/27/24 10:00 WC - Today's Visit Information Type of service Initial Visit Arrival Mode Ambulatory, Walker Accompanied by Ange- sister Patient Identification Verified (Name & Yes ) Height and Weight Height 5 ft 1 in Weight 77.111 kg Weight in Pounds 170.0 lbs Weight Measurement Method Estimated by Patient Body Mass Index (BMI) 32.1 BMI Classification Obese BSA - Lena 1.76 Vital Signs Temperature (97.8 F-99.1 F) 97.7 F L Temperature Source Temporal Pulse Rate (60-100) 134 H Pulse Location Monitor Respiratory Rate (12-18) 18 Respiratory rate source Observation Oxygen Delivery Method Room Air Blood Pressure (90/60-120/80) 146/79 H Blood Pressure Mean 101 Source Monitor Position Semi-Fowlers Blood Pressure Location Left Arm History Since Last Visit- (Skip if this is Patient's initial visit) Left Footwear Surgical Shoe with pressure relief insole Right Footwear Surgical Shoe with pressure relief insole Pain Scale: 0-10 Numeric Is Patient Pain Free? Yes Communication Assessment Preferred language [employer] Instructor Required No Able to Read Yes Able to Write Yes Communication Tools None Caregiver Communication Skills No Impairment Impairment Right Hearing Abillity Normal Left Hearing Abillity Normal Visual Assistive Devices None Teaching Assessment Preferences Written, Demonstration Barriers to Learning None Readiness To Learn Excellent Willingness to Engage in Self Management High Activies Readiness to Engage in Self Management High Activities Anxiety Level Calm Cooperation Cooperative Perception Coherent Interest in Health Problem Asks Questions Education Importance Acknowledges Need Does Patient Smoke tobacco or other Yes substances Smoking Status Light Smoker (< 10/day) Is Patient Diabetic Yes Functional Assessment Recent Decline in Ability to Perform Denies Any Declines Culture/Scientology/Echocardiography Technologist Cultural/Scientology Needs that may affect No Treatment Plan Would you allow our hospital dye and chemical coordinator to No meet you for the purpose of spiritual/ emotional support? Echocardiography Technologist to contact place of sabianist No WC - Nurse 1 - General Ulcer Measurement Start: 01/27/24 09:59 Freq: Status: Active Protocol: Activity Type Activity Date Activity User E-sign Co-sign Detail Recorded Client Recorded Date Recorded By Document 01/27/24 10:00 KW Desktop 01/27/24 10:14 KW 01/27/24 10:00 Wound Center Nurse 1 #1 LT 4TH TOE AMP SITE -Current Size (cm) - Length 0.1 -Current Size (cm) - Width 0.1 -Current Size (cm) - Depth 0.1 -Total Square Cm 0.01 -Date of Last Picture (Recall this 01/27/24 field) -Photo Taken Yes -Exudate Amt None Present -Ulcer Cleansing Rinsed/ Irrigated with Saline -Wound Comment(s) SUTURES INTACT Left Calf (cm) 34 Left Ankle (cm) 22 WC - Nurse 2 - General Ulcer CM Notes Start: 01/27/24 09:59 Freq: Status: Active Protocol: Activity Type Activity Date Activity User E-sign Co-sign Detail Recorded Client Recorded Date Recorded By Document 01/27/24 10:39 JF Laptop 01/27/24 10:40 JF 01/27/24 10:39 Wound Center Nurse 2 #1 LT 4TH TOE AMP SITE -Correct Patient No -Correct Side, Site, Position No -Correct Procedure No -Procedure Performed No -Wound/Ulcer Outcome Not Healed -Offloading Yes -Type of Offloading Surgical Shoe -Debridement - Subq, 1st 20sq cm No Pain Scale: 0-10 Numeric Is Patient Pain Free? Yes - Nurse 3 - General Ulcer D/C NN Start: 01/27/24 09:59 Freq: Status: Active Protocol: Activity Type Activity Date Activity User E-sign Co-sign Detail Recorded Client Recorded Date Recorded By Document 01/27/24 10:53 KW Desktop 01/27/24 10:54 KW 01/27/24 10:53 Wound Care Center Nurse 3 #1 LT 4TH TOE AMP SITE -Primary Dressing Covered/Secured with Dry Gauze & Roll Gauze, Secured with Tape Left -Tubular Bandage Single Layer -Size of Tubigrip Used Size D -Size D ($) 1 Pain Scale: 0-10 Numeric Is Patient Pain Free? Yes WC - Visit Discharge Discharge Condition Stable Ambulatory Status Ambulatory, Walker Transportation Private Auto Medication Reconcilliation completed & No provided to patient/care provider Clinical Summary of Care Provided Yes Assessment/Plan Assessment/Plan (1) Osteomyelitis: CODE(S): M86.9 - Osteomyelitis, unspecified QUALIFIERS: Osteomyelitis type: unspecified type Osteomyelitis location: foot Laterality: left Qualified Code(s): M86.9 - Osteomyelitis, unspecified PLAN: Patient was examined and evaluated. All findings were discussed with the patient. All questions were answered to the patient's satisfaction. Patient's incision is well coapted no sign of surgical wound dehiscence or infection. Patient is recovering well from a podiatric standpoint as well as from vascular intervention. There is no need to push forward for authorization for hyperbaric oxygen treatment. Patient should make an uneventful recovery from her surgery to the left foot. The incision was dressed with Betadine followed by dry sterile dressing and a single-layer Tubigrip to left lower extremity. Patient is to be weightbearing as tolerated with surgical shoe to the left foot. Educated the patient about smoking cessation which she was understanding of. Plan for suture removal next week. Follow-up at the wound care center with Dr. Camacho in 1 week. (2) Gangrene: CODE(S): I96 - Gangrene, not elsewhere classified (3) Atherosclerosis of [place] arteries of extremities with gangrene, left leg: CODE(S): I70.262 - Atherosclerosis of [place] arteries of extremities with gangrene, left leg
[2024-02-03 11:34] VITALS: BP 143/76; PULSE 137; RESP 18; BMI 32.1
--- NOTE | 2024-02-03 13:25 | PN.PCM_ITS ---
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 Camacho consisting of incision bone cortex with delayed primary closure, date of surgery 01/05/2024. Patient was seen in the hospital in consultation by medicine, infectious disease and vascular surgery. Patient has undergone intervention by Dr. Frost of vascular surgery and is improving well with no complaints to her bilateral lower extremities. Patient currently denies any pain to the left foot. She does admit to mild smoking after discharge. Patient is not diabetic. She denies any open lesions or abrasions. Denies trauma. Denies constitutional symptoms. No other pedal complaints at this time. Subjective Subjective Mrs. Macedo is a 68-year-old female presenting to wound care center at [facility] follow-up and evaluation of amputation to the left foot. Patient had undergone intervention by Dr. Frost and has been improving well to the bilateral lower extremity. She presents today for suture removal. She admits to not smoking. Patient is nondiabetic. She denies any open lesions or abrasions. Denies trauma. Denies constitutional symptoms. No other pedal complaints at this time. Objective Data Objective Data Vital Signs: Vital Signs Temp Pulse Resp BP O2 Del Method 97.7 F L 137 H 18 143/76 H Room Air 01/27/24 10:00 02/03/24 11:34 02/03/24 11:34 02/03/24 11:34 02/03/24 11:34 Oxygen Delivery Method Room Air Weight: 77.111 kg Body Mass Index (BMI) 32.1 Physical Exam Narrative Vascular: DP and PT pulses are palpable to left lower extremity. Nonpitting edema appreciated to left lower extremity. Skin temperature gradient is warm to warm from proximal ankle to distal digits bilateral. No evidence of erythema or proximal streaking. Neurological: Light touch and epicritic station is intact. Dermatological: Evidence of well coapted incision to the level of the amputated fourth digit with no evidence of surgical wound dehiscence, erythema or proximal streaking. No sign of infection. Webspaces 1 through 4 are clean dry and intact bilateral. Musculoskeletal: Muscle strength is 5 out of 5 in all quadrants bilateral. Mild palpatory tenderness appreciated to the incision of the left foot. No pain with calf compression. Debridement Note Debridement Note Post-Debridement Measurements and Additional Note: Post-Debridement Measurements/Treatment WC - Nurse 1 - General Ulcer Assessment Start: 01/27/24 09:59 Freq: Status: Active Protocol: [email or web address] Activity Type Activity Date Activity User E-sign Co-sign Detail Recorded Client Recorded Date Recorded By Document 01/27/24 10:00 KW Desktop 01/27/24 10:14 KW Document 02/03/24 11:34 KW Desktop 02/03/24 11:46 KW 01/27/24 02/03/24 10:00 11:34 WC - Today's Visit Information Type of service Initial Visit Follow-up Visit (Physician/ASSISTED LIVING HOME DIRECTOR ) Arrival Mode Ambulatory, Ambulatory, Walker Walker Accompanied by Evangelina- sister sister evangelina Patient Identification Verified (Name & Yes Yes ) Height and Weight Height 5 ft 1 in Weight 77.111 kg Weight in Pounds 170.0 lbs Weight Measurement Method Estimated by Patient Body Mass Index (BMI) 32.1 32.1 BMI Classification Obese Obese BSA - Lena 1.76 Vital Signs Temperature (97.8 F-99.1 F) 97.7 F L Temperature Source Temporal Pulse Rate (60-100) 134 H 137 H Pulse Location Monitor Monitor Respiratory Rate (12-18) 18 18 Respiratory rate source Observation Observation Oxygen Delivery Method Room Air Room Air Blood Pressure (90/60-120/80) 146/79 H 143/76 H Blood Pressure Mean (mm Hg) 101 98 Source Monitor Monitor Position Semi-Fowlers Semi-Fowlers Blood Pressure Location Left Arm Left Arm History Since Last Visit- (Skip if this is Patient's initial visit) Have you changed medications since your No last visit? Any new allergies or adverse reactions No Had a fall/change in ADL's that may No increase risk of falls Signs or symptoms of abuse and/or No neglect since last visit Have you been in the hospital since your No last visit? Has dressing in place as prescribed Yes Has compression in place as prescribed Yes Has offloadiing in place as prescribed Yes Experienced any changes in pain level or No management Left Footwear Surgical Shoe Surgical Shoe with pressure with pressure relief insole relief insole Right Footwear Surgical Shoe Surgical Shoe with pressure with pressure relief insole relief insole Pain Scale: 0-10 Numeric Is Patient Pain Free? Yes Yes Communication Assessment Preferred language British Crisis Counselor Required No Able to Read Yes Able to Write Yes Communication Tools None Caregiver Communication Skills No Impairment Impairment Right Hearing Abillity Normal Left Hearing Abillity Normal Visual Assistive Devices None Teaching Assessment Preferences Written, Demonstration Barriers to Learning None Readiness To Learn Excellent Willingness to Engage in Self Management High Activies Readiness to Engage in Self Management High Activities Anxiety Level Calm Cooperation Cooperative Perception Coherent Interest in Health Problem Asks Questions Education Importance Acknowledges Need Does Patient Smoke tobacco or other Yes substances Smoking Status Light Smoker (< 10/day) Is Patient Diabetic Yes Functional Assessment Recent Decline in Ability to Perform Denies Any Declines Culture/Denominational/Mother'S Helper Cultural/Denominational Needs that may affect No Treatment Plan Would you allow our hospital tightening machine operator to No meet you for the purpose of spiritual/ emotional support? Mother'S Helper to contact place of congregational No WC - Nurse 1 - General Ulcer Measurement Start: 01/27/24 09:59 Freq: Status: Active Protocol: Activity Type Activity Date Activity User E-sign Co-sign Detail Recorded Client Recorded Date Recorded By Document 01/27/24 10:00 [employer] 01/27/24 10:14 [employer] Document 02/03/24 11:34 [email or web address] 02/03/24 11:46 KW 01/27/24 02/03/24 10:00 11:34 Wound Center Nurse 1 #1 LT 4TH TOE AMP SITE -Current Size (cm) - Length 0.1 -Current Size (cm) - Width 0.1 -Current Size (cm) - Depth 0.1 -Total Square Cm 0.01 -Date of Last Picture (Recall this 01/27/24 field) -Photo Taken Yes -Exudate Amt None Present -Texture (Fabiana-wound Skin Appearance) Assessed -Moisture (Fabiana-wound Skin Appearance) Assessed,Dry/ Scaly -Color (Fabiana-wound Skin Appearance) Assessed -Ulcer Cleansing Rinsed/ Soap and Water Irrigated with Saline -Wound Comment(s) SUTURES INTACT no lidocaine used, sutures are intact Left Calf (cm) 34 37 Left Ankle (cm) 22 20.5 WC - Nurse 2 - General Ulcer CM Notes Start: 01/27/24 09:59 Freq: Status: Active Protocol: Activity Type Activity Date Activity User E-sign Co-sign Detail Recorded Client Recorded Date Recorded By Document 01/27/24 10:39 Laptop 01/27/24 10:40 Document 02/03/24 12:00 Laptop 02/03/24 12:03 JF 01/27/24 02/03/24 10:39 12:00 Wound Center Nurse 2 #1 LT 4TH TOE AMP SITE -Correct Patient No No -Correct Side, Site, Position No No -Correct Procedure No No -Procedure Performed No No -Post Debridement (cm) - Length 0.1 -Post Debridement (cm) - Width 0.1 -Post Debridement (cm) - Depth 0.1 -Total Square (Post) (cm) 0.01 -Area of Debridement (cm) - Length 0.1 -Area of Debridement (cm) - Width 0.1 -Total Square (Area) (cm) 0.01 -Wound/Ulcer Outcome Not Healed Not Healed -Offloading Yes -Type of Offloading Surgical Shoe -Debridement - Subq, 1st 20sq cm No Pain Scale: 0-10 Numeric Is Patient Pain Free? Yes Yes - Nurse 3 - General Ulcer D/C NN Start: 01/27/24 09:59 Freq: Status: Active Protocol: Activity Type Activity Date Activity User E-sign Co-sign Detail Recorded Client Recorded Date Recorded By Document 01/27/24 10:53 [email or web address] 01/27/24 10:54 KW Document 02/03/24 12:09 [email or web address] 02/03/24 12:11 KW 01/27/24 02/03/24 10:53 12:09 Wound Care Center Nurse 3 #1 LT 4TH TOE AMP SITE -Ulcer Cleansing Soap and Water -Foul Odor after Cleansing No -Primary Dressing Covered/Secured with Dry Gauze & Dry Gauze, Roll Gauze, Secured with Secured with Tape Tape Left -Lotion applied to leg before No compression wrap -Tubular Bandage Single Layer -Size of Tubigrip Used Size D Size E -Size D ($) 1 Pain Scale: 0-10 Numeric Is Patient Pain Free? Yes Yes Teaching: Wound Center Wound dressing -Person Taught Patient -Teaching Method Discussion -Response to teaching Verbalize understanding WC - Visit Discharge Discharge Condition Stable Ambulatory Status Ambulatory, Walker Transportation Private Auto Medication Reconcilliation completed & No provided to patient/care provider Clinical Summary of Care Provided Yes Assessment/Plan Assessment/Plan (1) Atherosclerosis of [place] arteries of extremities with gangrene, left leg: CODE(S): I70.262 - Atherosclerosis of [place] arteries of extremities with gangrene, left leg PLAN: Patient was examined and evaluated. All findings were discussed with the patient. All questions were answered to the patient's satisfaction. The patient has been recovering well from her fourth digit left foot amputation. At this time the incision was dressed with Betadine paint and sutures were removed without incident. The sanguinous crust on the incision removed and showed no evidence of full-thickness wound with evidence of a minor abrasion measuring 0.1 x 0.1 x 0.1 cm. Incision was covered with Steri-Strips and Betadine paint. The left lower extremity was dressed with gauze and a single- layer Tubigrip. Patient will be partial weightbearing in surgical shoe and educated the patient to continue to rest and elevate her left lower extremity until follow-up. Continued to discuss smoking sensation with the patient. She was understanding of this. Follow-up at the wound care center with Dr. Camacho in 2 week. (2) Peripheral arterial occlusive disease: CODE(S): I77.9 - Disorder of arteries and arterioles, unspecified
--- NOTE | 2024-02-08 08:42 | WC ---
3.13.24 LT 4TH TOE AMP
== END 2024-02-14 23:59 | disposition home or self-care (01) ==
LOC: WC 11:30
PROVIDERS: PCP Nurse Practitioner Family; Referring Provider Podiatrist Foot & Ankle Surgery; Visit Provider Podiatrist Foot & Ankle Surgery
DX: I70.262 Atherosclerosis of native arteries of extremities with gangrene, left leg (principal); M86.8X7 Other osteomyelitis, ankle and foot; Z79.82 Long term (current) use of aspirin; Z79.01 Long term (current) use of anticoagulants; Z79.02 Long term (current) use of antithrombotics/antiplatelets; Z79.899 Other long term (current) drug therapy; Z89.422 Acquired absence of other left toe(s)
CPT/HCPCS: 99213; G0463

== ENCOUNTER 2024-02-17 12:54 | Outpatient (RCR) | payer MEDICARE, SELFPAY ==
[2024-02-15 00:29] VITALS: BP 143/76; PULSE 137; RESP 18; TEMP 36.5; BMI 32.1
[2024-02-17 13:07] VITALS: BP 138/75; PULSE 100; RESP 18; TEMP 36.4; BMI 32.1
--- NOTE | 2024-02-17 13:22 | PCM.WC.PN ---
History of Present Illness Date of Service: 02/17/24 Chief Complaint: Wet gangrene status post incision bone cortex right foot fourth digit History of Wound: Wet gangrene status post incision bone cortex right foot fourth digit Subjective Subjective Mrs. Macedo is a 68-year-old female presenting to wound care center at [facility] follow-up and evaluation of amputation to the left foot. Patient had undergone intervention by Dr. Frost and has been improving well to the bilateral lower extremity. She admits to smoking but trying to quit. Patient is nondiabetic. She denies any open lesions or abrasions. Denies trauma. Denies constitutional symptoms. No other pedal complaints at this time. Objective Data Objective Data Vital Signs: Vital Signs Temp Pulse Resp BP 97.6 F L 100 18 138/75 H 02/17/24 13:07 02/17/24 13:07 02/17/24 13:07 02/17/24 13:07 Weight: 77.111 kg Body Mass Index (BMI) 32.1 Physical Exam Narrative Vascular: DP and PT pulses are palpable to left lower extremity. Nonpitting edema appreciated to left lower extremity. Skin temperature gradient is warm to warm from proximal ankle to distal digits bilateral. No evidence of erythema or proximal streaking. Neurological: Light touch and epicritic station is intact. Dermatological: Incision is well coapted to the level of the amputated fourth digit with no evidence of surgical wound dehiscence, erythema or proximal streaking. No sign of infection. Webspaces 1 through 4 are clean dry and intact bilateral. Musculoskeletal: Muscle strength is 5 out of 5 in all quadrants bilateral. Mild palpatory tenderness appreciated to the incision of the left foot. No pain with calf compression. Debridement Note Debridement Note Post-Debridement Measurements and Additional Note: Post-Debridement Measurements/Treatment - Nurse 1 - General Ulcer Assessment Start: 02/17/24 13:07 Freq: Status: Active Protocol: OREN Activity Type Activity Date Activity User E-sign Co-sign Detail Recorded Client Recorded Date Recorded By Document 02/17/24 13:07 Desktop 02/17/24 13:13 RB 02/17/24 13:07 - Today's Visit Information Type of service Follow-up Visit (Physician/DRYERMAN/WOMAN ) Arrival Mode Ambulatory, Walker Transfer Assistance None Patient Identification Verified (Name & Yes ) Patient Requires Transmission-Based No Precautions Height and Weight Body Mass Index (BMI) 32.1 BMI Classification Obese Vital Signs Temperature (97.8 F-99.1 F) 97.6 F L Temperature Source Temporal Pulse Rate (60-100) 100 Pulse Location Monitor Respiratory Rate (12-18) 18 Respiratory rate source Observation Blood Pressure (90/60-120/80) 138/75 H Blood Pressure Mean (mm Hg) 96 Source Monitor Position Sitting Blood Pressure Location Left Arm History Since Last Visit- (Skip if this is Patient's initial visit) Have you changed medications since your No last visit? Any new allergies or adverse reactions No Had a fall/change in ADL's that may No increase risk of falls Signs or symptoms of abuse and/or No neglect since last visit Have you been in the hospital since your No last visit? Has dressing in place as prescribed Yes Has compression in place as prescribed Yes Has offloadiing in place as prescribed Yes Experienced any changes in pain level or No management Left Footwear Surgical Shoe with pressure relief insole Right Footwear Surgical Shoe with pressure relief insole Pain Scale: 0-10 Numeric Is Patient Pain Free? Yes - Nurse 1 - General Ulcer Measurement Start: 02/17/24 13:07 Freq: Status: Active Protocol: Activity Type Activity Date Activity User E-sign Co-sign Detail Recorded Client Recorded Date Recorded By Document 02/17/24 13:07 Desktop 02/17/24 13:13 02/17/24 13:07 Wound Center Nurse 1 #1 LT 4TH TOE AMP SITE -Combined with other wound No -Current Size (cm) - Length 0.1 -Current Size (cm) - Width 0.1 -Current Size (cm) - Depth 0.1 -Total Square Cm 0.01 -Photo Taken Yes -Epithelialization Large 67-100% -Tunneling No -Undermining/Tunneling No -Circular Undermining No -Exudate Amt None Present -Granulation Amt Large (67-100%) -Granulation Quality [place] -Slough/Fibrin No -Structure Exposed N/A -Texture (Fabiana-wound Skin Appearance) Assessed -Moisture (Fabiana-wound Skin Appearance) Assessed,Dry/ Scaly -Color (Fabiana-wound Skin Appearance) Assessed -Temperature (Fabiana-wound Skin No Abnormality Appearance) (Pt Warm) -Tenderness on Palpation (Fabiana-wound No Skin Appearance) -Ulcer Cleansing Wound Cleanser -Foul Odor after Cleansing No Lower Limb Edema Present Yes Left Calf (cm) 38.2 Left Ankle (cm) 22 Assessment/Plan Assessment/Plan (1) Atherosclerosis of [place] arteries of extremities with gangrene, left leg: CODE(S): I70.262 - Atherosclerosis of [place] arteries of extremities with gangrene, left leg PLAN: Patient was examined and evaluated. All findings were discussed with the patient. All questions were answered to the patient's satisfaction. Patient's incision to the left foot is healed. There is no evidence of surgical wound dehiscence or infection. Patient can wear regular shoes and socks as tolerated. She will follow-up in private office with Dr. Camacho in 1 month. She left the office pleased to visit. Follow-up in private office with Dr. Camacho in 1 month. (2) Peripheral arterial occlusive disease: CODE(S): I77.9 - Disorder of arteries and arterioles, unspecified
== END 2024-03-15 23:59 | disposition home or self-care (01) ==
LOC: WC 12:54
PROVIDERS: PCP Nurse Practitioner Family; Referring Provider Podiatrist Foot & Ankle Surgery; Visit Provider Podiatrist Foot & Ankle Surgery
DX: I70.262 Atherosclerosis of native arteries of extremities with gangrene, left leg (principal); Z89.432 Acquired absence of left foot; F17.200 Nicotine dependence, unspecified, uncomplicated; Z79.82 Long term (current) use of aspirin; Z79.01 Long term (current) use of anticoagulants; Z79.02 Long term (current) use of antithrombotics/antiplatelets
CPT/HCPCS: 99213; G0463

== ENCOUNTER → 2024-02-26 | Outpatient (CLI) | payer MEDICARE, SELFPAY | END | disposition home or self-care (01) | LOC: PSN 09:23 | PROVIDERS: PCP Nurse Practitioner Family; Referring Provider Nurse Practitioner Family; Visit Provider Nurse Practitioner Family | DX: J44.9 Chronic obstructive pulmonary disease, unspecified (principal) | CPT/HCPCS: 94060; 94726; 94729 ==

== ENCOUNTER → 2024-03-02 | Outpatient (CLI) | payer MEDICARE, SELFPAY ==
--- NOTE | 2024-03-02 12:51 | ART_ITS ---
Reason For Study: HX R to L Fem/Fem BPG Procedure A bilateral lower extremity continuous wave Doppler with analog waveform analysis and ankle brachial indexes. Left Segmental Pressures Left brachial= 123mmHg. Left posterior tibial artery = 115mmHg. Left dorsalis pedis artery = 134mmHg. Left digit = 98 mmHg. The left posterior tibial artery waveforms are biphasic. The left dorsalis pedis waveforms are biphasic. Right Segmental Pressures Right brachial= 119mmHg. Right posterior tibial artery = 120mmHg. Right dorsalis pedis artery = 135mmHg. Right digit = 106 mmHg. The right posterior tibial artery waveforms are triphasic. The right dorsalis pedis waveforms are triphasic. Indices The right ankle brachial index by the posterior tibial artery is 0.98. The right ankle brachial index by the dorsalis pedis is 1.10. The right digital-brachial index is 0.86. The left ankle brachial index by the posterior tibial artery is 0.93. The left ankle brachial index by the dorsalis pedis is 1.09. The left digital-brachial index is 0.80. VL/Ankle Brachial Index Interpretation Summary Right ALEIDA 1.1, normal. TBI and Doppler/PVR waveforms of the right ankle normal at rest. Left ALEIDA 1.09, normal. TBI and Doppler/PVR waveforms of the left leg normal at rest. Ordering Physician: Katie Retana Referring Physician: Vincent Ashley Performed By: Shad Velazquez RVT and Student
--- NOTE | 2024-03-02 12:51 | ADUL_ITS ---
Reason For Study: Rt to Lt Fem/Fem BPG Right Velocities Left Velocities Ext. Iliac Artery, dist = 340.9 cm./sec. Ext Iliac Artery, dist = 218.1 cm./sec. Common Femoral Artery, prox = 143.2 cm./sec. Common Femoral Artery, mid = 197.1 cm./sec. Supf Femoral Artery, prox = 81.5 cm./sec. Supf. Femoral Artery, prox = 113.0 cm./sec. Profunda Femoral Artery = 134.5 cm./sec. Supf. Femoral Artery, mid = 88.8 cm./sec. . Supf. Femoral Artery, dist = 114.3 cm./sec. Rt to Lt Fem/Fem BPG noted. Profunda Femoral Artery = 169.3 cm./sec. Popliteal Artery, mid = 90.6 cm./sec. Prox Anastomosis PSV = 114.1cm/s Post. Tibial Artery, prox = 92.4 cm./sec. Prox Graft PSV = 46.8 cm/s Post Tibial Artery, mid = 65.0 cm./sec. Mid Graft PSV = 22.5 cm/s Post Tibial Artery, dist. = 55.7 cm./sec. Dist Graft PSV = 24.6cm/s Peroneal Artery, prox = 56.6 cm./sec. Dist Anastomosis PSV = 107.0cm/s. Peroneal Artery, mid = 43.5 cm./sec. Peroneal Artery,dist. = 22.0 cm./sec. Ant.Tibial Artery, prox = 66.7 cm./sec. Ant Tibial Artery, mid = 87.5 cm./sec. Ant. Tibial Artery, distal = 91.9 cm./sec. /US Art Duplex Unilat Lower Ext Interpretation Summary Patent right to left femoral-femoral bypass with diminish velocities distally a nd abnormal waveforms. Donor iliac artery with >50% stenosis. Recipient iliac artery appears patent with antegrade flow Ordering Physician: Katie Retana Referring Physician: Vincent Ashley Performed By: Shad Velazquez RVT and Student
== END | disposition home or self-care (01) ==
LOC: CVS 12:50
PROVIDERS: PCP Nurse Practitioner Family; Referring Provider Physician Assistant; Visit Provider Physician Assistant
DX: I70.262 Atherosclerosis of native arteries of extremities with gangrene, left leg (principal)
CPT/HCPCS: 93922; 93926

== ENCOUNTER → 2024-03-07 | Outpatient (CLI) | payer MEDICARE, SELFPAY ==
[2024-03-07 13:40] LABS: Creatinine, Serum 0.73 mg/dL (0.55-1.02); EST Glomerular Filtration Rate 85 mL/min (>60); Est Glom Filt Rate - Afr Amer 102 mL/min (>60)
== END | disposition home or self-care (01) ==
LOC: LAB 12:46
PROVIDERS: PCP Nurse Practitioner Family; Referring Provider Physician Assistant; Visit Provider Physician Assistant
DX: N17.9 Acute kidney failure, unspecified (principal); I73.9 Peripheral vascular disease, unspecified
CPT/HCPCS: 36415; 82565

== ENCOUNTER → 2024-03-17 | Outpatient (CLI) | payer MEDICARE, SELFPAY ==
--- NOTE | 2024-03-17 11:18 | VDLE_ITS ---
Reason For Study: LLE SWELLING RIGHT LEFT CFV is compressible, spontaneous, phasic, GSV is normal. competent and demonstrates normal CFV is compressible, spontaneous, phasic, augmentation. competent, and demonstrates normal Procedure augmentation. This is a venous duplex using B-mode, color FV is compressible, spontaneous, phasic, flow and spectral Doppler. competent and demonstrates normal Exam performed in department. augmentation. A preliminary report was called and/or faxed POP V is compressible, spontaneous, phasic, to Katie CAVANAUGH @ 11:40 am. competent and demonstrates normal augmentation. T/P Trunk is compressible. PTV is compressible. LT PerV is compressible. VL/Venous Duplex US, Unilateral Interpretation Summary Deep veins of the left lower extremity are patent and compressible segmentally. There is no evidence of left lower extremity deep vein thrombosis. The left great saphenous vein hiwot ears patent and compressible segmentally. Ordering Physician: Katie Retana Referring Physician: Vincent Ashley Performed By: Danielle Oliveira, CHANDA, RVT
== END | disposition home or self-care (01) ==
LOC: CVS 11:17
PROVIDERS: PCP Nurse Practitioner Family; Referring Provider Physician Assistant; Visit Provider Physician Assistant
DX: M79.89 Other specified soft tissue disorders (principal); M79.605 Pain in left leg
CPT/HCPCS: 93971

== ENCOUNTER → 2024-04-05 | Outpatient (CLI) | payer MEDICARE, SELFPAY ==
--- NOTE | 2024-04-05 07:56 | CT_ITS ---
EXAM: CT ANGIOGRAPHY ABDOMEN AND PELVIS WITH RUNOFF TO THE LOWER EXTREMITIES WITH INTRAVENOUS CONTRAST CLINICAL INDICATION: bypass stenosis by duplex TECHNIQUE: Helically acquired angiography images were obtained of the abdomen, pelvis and lower extremities with intravenous contrast using CTA runoff protocol. This CT exam was performed using one or more of the following dose reduction techniques: automated exposure control, adjustment of the mA and/or kV according to patient size, and/or use of iterative reconstruction technique. MIP reconstructed images were created and reviewed. CONTRAST: IV 100mL Isovue-370 RADIATION DOSE: CTDIvol = 6.65 mGy, DLP = 1058.94 mGy-cm. COMPARISON: December 21, 2023, there was included nonopacified left common and external iliac arteries with stents and recanalized flow in the distal left external iliac-femoral artery at that time. There were bilateral iliac stents. There was right calf and foot soft tissue swelling on the prior exam. FINDINGS: VASCULATURE: AORTA: No acute findings. Normal caliber abdominal aorta. No occlusion or significant stenosis. No dissection. Mild peripheral calcification of distal infrarenal aorta mildly narrow at 1.1 cm x 1.3 cm. CELIAC TRUNK AND MESENTERIC ARTERIES: No acute findings. No occlusion or significant stenosis. No dissection. RENAL ARTERIES: No acute findings. No occlusion or significant stenosis. No dissection. RIGHT ILIAC ARTERIES: No patent stents. Acute findings. No occlusion or significant stenosis. No dissection. RIGHT FEMORAL/POPLITEAL ARTERIES: No acute findings. No occlusion or significant stenosis. No dissection. Mild narrowing and calcified plaque of right common femoral artery. No high-grade stenosis. RIGHT CALF/FOOT ARTERIES: Patent HIEN and VETERINARY INSPECTOR. Discontinuous peroneal artery with short defects in the proximal and mid artery, recanalized more distally. LEFT ILIAC ARTERIES: Patent stents. No acute findings. No occlusion or significant stenosis. No dissection. LEFT FEMORAL/POPLITEAL ARTERIES: No acute findings. No occlusion or significant stenosis. No dissection. LEFT CALF/FOOT ARTERIES: Patent anterior and posterior tibial arteries. Small and mildly discontinuous appearance of peroneal artery distally. LOWER THORAX: Unremarkable. Lung bases are clear. No cardiomegaly. No significant pericardial effusion. ABDOMEN: LIVER: Similar small presumed cyst in the liver, 1.1 cm. GALLBLADDER AND BILE DUCTS: Unremarkable. No calcified gallstones. No gallbladder distention or wall edema. No intra- or extrahepatic biliary ductal dilation. PANCREAS: Unremarkable. No focal cystic or solid mass. SPLEEN: Unremarkable. Normal size without focal cystic or solid mass. ADRENALS: Unremarkable. No nodules. KIDNEYS AND URETERS: Unremarkable. Normal renal size and position. No hydronephrosis. STOMACH AND BOWEL: Mild fluid and gas in the stomach and small bowel. Moderate fluid in the proximal right colon, moderate stool in much of the remainder of the colon including in proximal and mid sigmoid. Minimal gas in distal sigmoid and rectum with mildly thick-walled appearance. No stomach or bowel distention. PELVIS: APPENDIX: No evidence of acute appendicitis. BLADDER: Unremarkable. REPRODUCTIVE: Unremarkable as visualized. No mass. ABDOMEN, PELVIS and LOWER EXTREMITIES: INTRAPERITONEAL SPACE: Trace if any intrapelvic fluid. No free air. BONES/JOINTS: There is patent femoral-femoral graft pubic region. Patent bilateral common and external iliac stents. SOFT TISSUES: There is moderate skin thickening and soft tissue swelling increased soft tissue density in the left calf and foot, no evidence of significant fasciitis. No soft tissue gas bubbles. Mild increased soft tissue density in the bilateral groin and surgical clips at the femoral-femoral bypass graft margins. No discrete abdominal or pelvic wall hernia. LYMPH NODES: Mildly prominent bilateral inguinal nodes, mildly larger, likely reactive. CT/CTA Abd w/Runoff W/WO Contrast IMPRESSION: Patent bilateral common iliac and external iliac stents. The left common and external iliac stents are newly opacified compared to December 21, 2023. Patent femoral-femoral bypass graft in the suprapubic region. Minimal narrowing at the graft insertions. No suspicious fluid collections in the groin. Moderate left lower extremity soft tissue swelling and subcutaneous edema, especially in the calf and foot. No soft tissue gas. There are patent runoff vessels bilaterally. Moderate stool in most of the colon. Electronically Signed: Seble Yo MD at 8:14 EDT ,
== END | disposition home or self-care (01) ==
LOC: CT 07:51
PROVIDERS: PCP Nurse Practitioner Family; Referring Provider Physician Assistant; Visit Provider Physician Assistant
DX: Z48.812 Encounter for surgical aftercare following surgery on the circulatory system (principal); I70.262 Atherosclerosis of native arteries of extremities with gangrene, left leg; I77.9 Disorder of arteries and arterioles, unspecified; Z95.828 Presence of other vascular implants and grafts
CPT/HCPCS: 75635; Q9967

== ENCOUNTER 2024-05-03 13:40 | Inpatient (IN) | payer MEDICARE, SELFPAY ==
[2024-05-03] VITALS (23 sets, daily range): BP systolic 105–131; BP diastolic 57–96; PULSE 90–143; RESP 19–38; TEMP 36.3–37.2; O2SAT 90–100; BMI 32.1
--- NOTE | 2024-05-03 13:50 | EKG12_ITS ---
Test Reason : WEAKNESS Blood Pressure : / mmHG Vent. Rate : 121 BPM Atrial Rate : 121 BPM P-R Int : 146 ms QRS Dur : 076 ms QT Int : 312 ms P-R-T Axes : 063 030 084 degrees QTc Int : 443 ms Sinus tachycardia Nonspecific ST and T wave abnormality Abnormal ECG Confirmed by BATSHEVA SALEH, JOSE J ([id number]), movie editor DEWEY BAEZA ([id number]) on 05/05/2024 8:14:40 AM Referred By: Confirmed By:JOSE J HERMAN MD
--- NOTE | 2024-05-03 13:53 | EX.ED.DYSGE1 ---
HPI History of Present Illness Chief Complaint: Abn Labs Detail of Chief Complaint: Low hemoglobin Informant: patient and family Onset/Context/Timing Onset: - (Blood results indicates low hemoglobin. Patient is on Plavix.) Context: Gradual Onset Timing: Continuous and Waxes and wanes Quality: Fatigue, dyspnea Location: Hematologic Current Severity: Severe Maximum Severity: Severe Worsened by: Activity Relieved by: Nothing Associated Symptoms Associated Symptoms: Denies bleeding gums, hematuria, black or maroon stool Narrative Narrative: patient is a 68-year-old woman who has been experiencing fatigue, lack of energy, shortness of breath with activity who had blood work this morning that revealed a hemoglobin of 3.5 with microcytic indices. She denies black or maroon-colored stool. She denies hematuria. Denies bruising easily. She is on aspirin and Plavix. She had recent surgery by Dr. Frost. She had a stent placed left lower extremity. Patient denies headache, visual, ocular auditory symptoms. Patient [place] ringing or ears. Patient has trouble with speech or swallowing. Patient denies chest pain, pressure tightness heaviness. Patient does report shortness of breath with activity. She denies abdominal pain. She has no urologic symptoms Prior similar symptoms: No Recent Illness/Hospitalization: Yes [facility] Medical History Atherosclerosis of [place] arteries of extremities with gangrene, left leg Carotid stenosis, bilateral Tobacco abuse Peripheral arterial occlusive disease Cervical cancer PVD (peripheral vascular disease) Arthritis Home Medications ?Medication ?Instructions ?Recorded ?Last Taken ?Type acetaminophen 650 mg 650 mg PO Q6H PRN Pain 06/25/18 Unknown History tablet,extended release (Tylenol Arthritis Pain) albuterol sulfate 90 mcg/actuation 2 puff inhalation Q6H PRN 01/08/24 Unknown History aerosol inhaler shortness of breath or wheezing amlodipine 5 mg tablet 5 mg PO DAILY 01/08/24 Unknown History aspirin 81 mg tablet,delayed 81 mg PO DAILY 01/08/24 Unknown History release budesonide-formoterol HFA 160 2 puff inhalation BID 01/08/24 Unknown History mcg-4.5 mcg/actuation aerosol inhaler rosuvastatin 10 mg tablet 10 mg PO DAILY 01/08/24 Unknown History rivaroxaban 2.5 mg tablet (Xarelto) 2.5 mg PO BID #60 tabs 01/22/24 Unknown Rx cilostazol 50 mg tablet 50 mg PO BID #60 tabs 02/11/24 Unknown Rx clopidogrel 75 mg tablet (Plavix) 75 mg PO DAILY #30 tabs 02/11/24 Unknown Rx cholecalciferol (vitamin D3) 1,250 1,250 mcg PO QWEEK 05/03/24 Unknown History mcg (50,000 unit) capsule Allergy/AdvReac Type Severity Reaction Status Date / Time No Known Allergies Allergy Verified 05/03/24 13:41 Family History Mother Breast cancer Surgical History S/P LEFT ARTERIOGRAM Social History Smoking Status: Light Smoker (<10/day) alcohol intake: never substance use type: does not use ROS ROS ED Constitutional Constitutional ED: Denies chills, fever(s), subjective, sweats or weight loss Eyes Eyes: Denies blurry vision, change in vision or diplopia ENT ENT ED: Denies ear pain, rhinorrhea or sore throat Cardiovascular Cardiovascular: Denies chest pain, orthopnea, palpitations or paroxysmal nocturnal dyspnea Respiratory/Chest Respiratory/Chest: Reports dyspnea on exertion; Denies cough, dyspnea, orthopnea or paroxysmal nocturnal dyspnea Gastrointestinal Gastrointestinal: Denies abdominal pain, diarrhea, melena, nausea or vomiting Genitourinary Genitourinary ED: Denies dysuria or hematuria Musculoskeletal Musculoskeletal: Denies arthralgias, back pain or myalgias Integumentary Denies abscess or rash Neurologic Neurologic: Reports weakness; Denies headache(s) or paresthesias Psychiatric Psychiatric: Denies anxiety or depression Endocrine Endocrinology: Denies cold intolerance or heat intolerance Hematologic/Lymphatic Hematologic/Lymphatic: Reports systems reviewed and no addt'l complaints, except as documented and as per HPI EXAM Physical Exam Const Vital Signs: 05/03/24 13:41 05/03/24 13:58 05/03/24 14:40 Temperature 98.5 F Temperature Source Temporal Pulse Rate 143 H Pulse Rate [Lying] Pulse Rate [Sitting (for 1 minute prior to obtaining)] Pulse Rate [Standing (for 1 minute prior to obtaining)] Respiratory Rate 24 H 38 H Respiratory Effort Short of Breath Blood Pressure 124/61 H Blood Pressure [Lying] Blood Pressure [Sitting (for 1 minute prior to obtaining)] Blood Pressure [Standing (for 1 minute prior to obtaining)] Blood Pressure Mean 82 Blood Pressure Mean [Lying] Blood Pressure Mean [Sitting (for 1 minute prior to obtaining)] Blood Pressure Mean [Standing (for 1 minute prior to obtaining)] Pulse Ox 98 97 Oxygen Delivery Method Room Air Room Air 05/03/24 14:42 Temperature Temperature Source Pulse Rate Pulse Rate [Lying] 118 H Pulse Rate [Sitting (for 1 minute prior to obtaining)] 117 H Pulse Rate [Standing (for 1 minute prior to obtaining)] 125 H Respiratory Rate Respiratory Effort Blood Pressure Blood Pressure [Lying] 116/62 Blood Pressure [Sitting (for 1 minute prior to obtaining)] 121/61 H Blood Pressure [Standing (for 1 minute prior to obtaining)] 105/57 L Blood Pressure Mean Blood Pressure Mean [Lying] 80 Blood Pressure Mean [Sitting (for 1 minute prior to obtaining)] 81 Blood Pressure Mean [Standing (for 1 minute prior to obtaining)] 73 Pulse Ox Oxygen Delivery Method Positive well nourished and well developed Constitutional Narrative: BMI is greater than 30. Patient is very pale. General Appearance ED: well developed, NAD and pallor; Negative for cyanotic or diaphoretic HEENT Reports moist mucous membranes HEENT Narrative: Head is atraumatic normocephalic. Ears normal. Nares patent. Posterior pharynx unremarkable. Eyes PERRL and EOMs intact bilaterally General Eye ED: Yes pale conjunctiva; Negative for scleral icterus Neck no lymphadenopathy, supple and no JVD Chest Wall inspection of chest normal and palpation of chest normal Resp normal respiratory effort and clear to auscultation bilaterally Cardio regular rhythm, S1 normal heart sound, S2 normal heart sound and no murmurs Rate: tachycardic GI normal to inspection, nondistended, normoactive bowel sounds, non-tender, non-distended and no masses; Negative for hepatosplenomegaly Back/Spine no CVA tenderness Extremity normal to inspection Neuro oriented x3, CN's II-XII intact bilaterally and no sensory deficits noted Sensorium / Orientation: alert Psych mental status grossly normal Mood & Affect: Negative for depressed or anxious Skin no rashes or lesions noted, no wounds and skin turgor normal Skin Narrative: There is no erythema creases of the palm. General Skin Exam: pallor; Negative for jaundice MDM MDM MDM Narrative Medical decision making narrative: Patient has signs and symptoms of anemia. Plan is type and cross 4 units of blood. Patient has microcytic indices. Will obtain iron, total iron-binding capacity, ferritin levels prior to transfusing. Patient is on long-term antithrombotic. She is on medication because of recent stent placement.Surgery was performed by Dr. Frost on January 20. Patient was informed that she will require admission. Vitals are remarkable for tachycardia. She is not hypotensive. History & Record Review Additional record(s) reviewed:: Prior inpatient record, Prior outpatient record and Prior labs Lab Data Attestation: I reviewed the patient's lab results. Lab results narrative: Iron is low. TIBC C is high. Iron saturation is low. Ferritin is low. White count obtained this morning was normal. H&H is 3.5 and 3018.7. MCV is 77.4. Prior labs indicates baseline hemoglobin of approximately 9-10. Electrolyte panel is unremarkable. More importantly BUN is 8 with a BUN to creatinine ratio of less than 10-1. Patient had liver enzymes that were unremarkable. None of these labs were repeated. Labs: Laboratory Results - last 24 hr 05/03/24 13:58 Lactic Acid 2.8 H* Iron 10 L TIBC 487 H Iron Saturation 2.1 L Ferritin 2 L Crossmatch See Detail Rhythm Strip Rhythm Strip: Sinus Tach Rate: 141 Ectopy: None EKG Initial EKG: Attestation: I personally reviewed and interpreted this EKG as follows: Interpretation: Sinus Tachycardia (Rate is under 21. Parable is 146 ms. QRS duration 76 ms. QT duration 312 ms. [place] is normal. There is artifact which the computer is reading as nonseptic ST-T wave changes.) Critical Care Time Critical Care Time: Yes Critical care time (excluding procedures): 30-74 minutes (31), Including time spent: (History, physical, documentation, review of prior labs, independent or potation laboratory results, consent for transfusion), Discussing w/Patient &/or Family/Construction Checker, Discussing w/Consultants and Arranging Admission or Transfer Discharge Plan Dx/Rx/DC Orders Clinical Impression: Signs and symptoms of anemia, S/P femoral-femoral bypass surgery, Tobacco abuse, Carotid stenosis, bilateral, Symptomatic anemia, Iron (Fe) deficiency anemia, 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
[2024-05-03 14:37] LABS: Ferritin 2 ng/mL (8-252); Iron 10 ug/dL (50-170); Iron Binding Capacity,Total 487 ug/dL (250-450); PERCENT IRON SATURATION 2.1 % (15.0-55.0)
[2024-05-03 14:47] LABS: Lactic Acid 2.8 mmol/L (0.4-1.9)
--- NOTE | 2024-05-03 14:50 | HP.PCM.HOS_ITS ---
HPI - General General Date of Admission: 05/03/24 Date of Service: 05/03/24 Chief Complaint: Found very low hemoglobin lab, 3.5 g as an outpatient and sent to ED HPI Narrative TONY BRADLEY, is a 68 F with history of peripheral arterial disease recently had a bypass 3 months ago on 3 antiplatelet/anticoagulants was sent to ED after her hemoglobin found 3.5 on outpatient labs. Patient said she has been feeling very weak fatigue and shortness of breath on exertion but denies any chest pain pressure or tightness. She did not felt palpitation. She denies obvious external bleeding including hematemesis, hematochezia/melena or dark stool. Denies hematuria or menorrhagia or hemoptysis. In ED, vital signs, tachycardia heart rate 143/min, BP 124/61 RR 24 with no hypoxia, pulse ox 98% on room air. Labs, twelve-lead EKG reviewed and discussed in assessment and plan typed and crossmatch 4 units ordered by ER physician and then admitted in ICU [facility] Medical History Atherosclerosis of [place] arteries of extremities with gangrene, left leg Carotid stenosis, bilateral Tobacco abuse Peripheral arterial occlusive disease Cervical cancer PVD (peripheral vascular disease) Arthritis Home Medications ?Medication ?Instructions ?Recorded ?Last Taken ?Type acetaminophen 650 mg 650 mg PO Q6H PRN Pain 06/25/18 Unknown History tablet,extended release (Tylenol Arthritis Pain) albuterol sulfate 90 mcg/actuation 2 puff inhalation Q6H PRN 01/08/24 Unknown History aerosol inhaler shortness of breath or wheezing amlodipine 5 mg tablet 5 mg PO DAILY 01/08/24 05/03/24 History aspirin 81 mg tablet,delayed 81 mg PO DAILY 01/08/24 05/03/24 History release budesonide-formoterol HFA 160 2 puff inhalation BID 01/08/24 Unknown History mcg-4.5 mcg/actuation aerosol inhaler rosuvastatin 10 mg tablet 10 mg PO DAILY 01/08/24 05/03/24 History rivaroxaban 2.5 mg tablet (Xarelto) 2.5 mg PO BID #60 tabs 01/22/24 05/03/24 Rx cilostazol 50 mg tablet 50 mg PO BID #60 tabs 02/11/24 05/03/24 Rx clopidogrel 75 mg tablet (Plavix) 75 mg PO DAILY #30 tabs 02/11/24 05/03/24 Rx cholecalciferol (vitamin D3) 1,250 1,250 mcg PO QWEEK 05/03/24 Unknown History mcg (50,000 unit) capsule Allergy/AdvReac Type Severity Reaction Status Date / Time No Known Allergies Allergy Verified 05/03/24 13:41 Family History Mother Breast cancer Surgical History S/P LEFT ARTERIOGRAM Social History Smoking Status: Light Smoker (<10/day) alcohol intake: never substance use type: does not use ROS ROS Narrative Constitutional: Reports recent fatigue and weakness. No fever. HEENT: Reports systems reviewed and no addt'l complaints, except as documented Respiratory/Chest: No acute shortness of breath or respiratory distress or wheezing. Dyspnea on exertion CVS: No chest pain, pressure or tightness. PAD: History of a stent in the leg and bypass surgery of left lower extremity. History of claudication pain/rest. Gastrointestinal: Denies coffee ground emesis, hematemesis or vomiting Genitourinary: Denies burning urination or new urinary tract symptoms Musculoskeletal: Denies acute joint pain or limited range of motion. No acute injury Neurologic: Denies seizure-like symptoms. skin: No ulcer. No rash Endocrinology: Reports systems reviewed and no addt'l complaints, except as documented Hematologic/Lymphatic: Reports systems reviewed and no addt'l complaints, except as documented Rest 14 ROS are negative except as mentioned in HPI Vital Signs Vital Signs Vital Signs: 05/03/24 13:41 05/03/24 13:58 05/03/24 14:40 Temperature 98.5 F Temperature Source Temporal Pulse Rate 143 H Pulse Rate [Lying] Pulse Rate [Sitting (for 1 minute prior to obtaining)] Pulse Rate [Standing (for 1 minute prior to obtaining)] Respiratory Rate 24 H 38 H Respiratory Effort Short of Breath Blood Pressure 124/61 H Blood Pressure [Lying] Blood Pressure [Sitting (for 1 minute prior to obtaining)] Blood Pressure [Standing (for 1 minute prior to obtaining)] Blood Pressure Mean 82 Blood Pressure Mean [Lying] Blood Pressure Mean [Sitting (for 1 minute prior to obtaining)] Blood Pressure Mean [Standing (for 1 minute prior to obtaining)] Pulse Ox 98 97 Oxygen Delivery Method Room Air Room Air 05/03/24 14:42 05/03/24 14:48 Temperature 98 F Temperature Source Pulse Rate 114 H Pulse Rate [Lying] 118 H Pulse Rate [Sitting (for 1 minute prior to obtaining)] 117 H Pulse Rate [Standing (for 1 minute prior to obtaining)] 125 H Respiratory Rate 26 H Respiratory Effort Blood Pressure 125/74 H Blood Pressure [Lying] 116/62 Blood Pressure [Sitting (for 1 minute prior to obtaining)] 121/61 H Blood Pressure [Standing (for 1 minute prior to obtaining)] 105/57 L Blood Pressure Mean 91 Blood Pressure Mean [Lying] 80 Blood Pressure Mean [Sitting (for 1 minute prior to obtaining)] 81 Blood Pressure Mean [Standing (for 1 minute prior to obtaining)] 73 Pulse Ox 94 Oxygen Delivery Method Physical Exam Narrative General: Alert, Oriented x3, Cooperative HEENT: Atraumatic, PERRLA, EOMI, Normocephalic. Pale conjunctiva Oral: Oral mucosa moist. No Gingival or Mucosal Lesions/ Ulcerations Neck: Supple, No JVD, Negative Carotid Bruits Chest wall/Lungs: Air entry diminished in bilateral lung bases. No crepitation/rhonchi Cardiovascular: Sinus tachycardia, systolic murmur present over LLSB. Regular rhythm Abdomen: Bowel Sounds Present, Soft, Non Tender, Non-Distended : No dysuria. No renal angle tenderness. No suprapubic tenderness. Extremities: mild bilateral pitting leg edema, Capillary Refill Less than 3 Seconds Skin: No rashes, No breakdown Musculoskeletal: No Tenderness to Palpation of Joints or Extremities Neurological: Cranial nerves II-XII grossly intact, DTR 2+/4. No acute focal neurological deficit. Psych/Mental Status: Flat affect Results Lab / Micro Data Labs: Laboratory Results - last 24 hr 05/03/24 13:58: Lactic Acid 2.8 H*, Iron 10 L, TIBC 487 H, Iron Saturation 2.1 L , Ferritin 2 L, Crossmatch See Detail Rhythm Strip Rhythm Strip: Sinus Tach Rate: 141 Ectopy: None Assessment & Plan Assessment/Plan (1) Symptomatic anemia: (2) Iron (Fe) deficiency anemia: PLAN: Plan This 68-year-old female is being admitted for severe anemia, hemoglobin 3.5 on an outpatient lab. 1. Acute on chronic severe symptomatic anemia: Patient last H&H 9.7/31% in January 2024. Today 3.5/13.7%. Platelet count. 59,000. White count normal. Twelve-lead EKG shows sinus tachycardia 121 bpm, QTc 443 ms. Previous EKG in December 2023 was normal sinus rhythm 99 bpm. Type and crossmatch 4 units ordered advised slow transfusion. Lactic acidosis, 2.8 most likely due to severe anemia probably leading to hypoperfusion. IV fluid normal saline ordered at 100 mill per hour. Patient not hypotensive 2. Acute on chronic iron deficiency anemia: Iron profile shows serum iron 10, TIBC elevated 497, iron saturation 2.1%. Ferritin 2, consistent with iron deficiency anemia. Stool for occult blood ordered. GI is consulted. Empirically started on pantoprazole 40 mg q. 12 hourly 3. 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 Patient had office visit on 03/21/2024 and found well-healed incision site. Patient on aspirin 81 mg daily, Plavix 75 mg daily and Xarelto 2.5 mg twice daily. Outpatient office plan was to continue for 6 months and then Xarelto 2.5 mg with single antiplatelet agent. Continue statin. Now, we will hold all 3 antiplatelet/anticoagulant agent 4. COPD: Not on home oxygen. Continue home inhaler. Incentive spirometry o rdered. 5. Hypertension: Blood pressure is in normal range. Orthostatic vitals shows drop in 10 mmHg from supine to standing position but heart rate normal. Does not meet criteria for orthostatic hypotension. Continue IV fluid. 6. COPD: Not on home O2. Continue home inhalers. Incentive spirometry at bedside. 7. Former tobacco use: Patient had quit his smoking. 8. Obesity grade 1: BMI 31 KG per meter square. PT and OT ordered. Golf Caddie consult. Advised weight loss. DVT prophylaxis, high risk: Bilateral SCDs. Pharmacological prophylaxis is contraindicated in view of severe anemia Living will/advanced directive/end of life care: Patient does not have living will or advanced directive. Next to kin is her cousin, Ange. After discussion of benefits/risks procedures involved with full code, DNR CC arrest and DNR CC, the patient opted for full code. Patient does want artificial life support including intubation, tube feed, ventilator and/chest compression, central venous catheter, vasopressor and DC shock if needed Total time spent in [id number] encounter in discussion of advanced directive 17 minutes. Laboratory Results 05/03/24 13:58: Lactic Acid 2.8 H*, Iron 10 L, TIBC 487 H, Iron Saturation 2.1 L , Ferritin 2 L, Blood Type B POSITIVE, Antibody Screen NEGATIVE, Crossmatch See Detail Charges/Coding Visit Charges Inpatient E&M: 06657 Init Hosp L3 Procedures Hospitalists Procedures: 12390 Advncd Care Plan 30 Min
--- NOTE | 2024-05-03 14:57 | NURSING ---
ICU MELISSA SYMPTOMATIC ANEMIA, HEMOGLOBIN 3, LACTIC ACIDOSIS, SINUS TACHYCARDIA
[2024-05-03] MEDS: 0.9% Normal Saline (1000mL) 1,000 ML 100 ML IV (16:34)
[2024-05-03] MEDS: Pantoprazole Sodium 40 MG in 0.9% Normal Saline (100mL MB+) 100 ML 330 MG IV ×2 (16:41→22:11)
[2024-05-03 16:42] LABS: Magnesium 1.7 mg/dL (1.6-2.6)
[2024-05-03 18:03] LABS: Reflex Lactate? Y
[2024-05-03 18:18] LABS: Bacteria 0 SEEN /hpf (None Seen); Mucous, Urine 0 SEEN /hpf (<or=2+); Red Blood Cells-Urine 0 SEEN /hpf (0-5); White Blood Cells 0 SEEN /hpf (0-5)
[2024-05-03 18:44] LABS: Color, Urine Yellow (Yellow); Glucose, Dipstick Normal (Normal); Ketone-Dipstick Negative (Negative); Leukocyte Esterase-Dipstick Negative /ul (Negative); Nitrite-Dipstick Negative (Negative); Occult Blood-Urine Negative /ul (Negative); Protein-Dipstick 30 mg/dl (Negative); Specific Gravity, Urine 1.005 (1.002-1.030); Urine Bilirubin Dipstick Negative (Negative); Urine Clarity Clear (Clear); Urine Urobilinogen Normal (Normal)
[2024-05-03] MEDS: Albuterol 2.5 MG/3 ML VIAL.NEB. INHALATION ×2 (18:58→23:50)
[2024-05-03] MEDS: Budesonide Respules 0.5 MG/2 ML AMPUL.NEB. INHALATION (18:58)
[2024-05-03 19:01] LABS: Squamous Epithelial Cells - UA 0-5 SEEN /hpf (5-10)
[2024-05-03 19:10] LABS: Lactic Acid 0.8 mmol/L (0.4-1.9)
[2024-05-04] VITALS (21 sets, daily range): BP systolic 103–136; BP diastolic 55–77; PULSE 75–107; RESP 18–30; TEMP 36.3–37.2; O2SAT 86–96; BMI 33.5
[2024-05-04] MEDS: 0.9% Saline Lock 10 ML Syringe IV ×3 (02:29→23:41)
[2024-05-04] MEDS: 0.9% Normal Saline (1000mL) 1,000 ML 100 ML IV (02:30)
[2024-05-04 06:34] LABS: Absolute Lymphocyte Count 0.91 X10^3/uL (0.83-4.51); Absolute Neutrophil Count 5.8 X10^3/uL (2.0-7.7); Basophil# 0.04 X10^3/uL; Basophil% 0.5 % (0-1); Eosinophil# 0.06 X10^3/uL; Eosinophils% 0.8 % (0-5); Hematocrit 27.7 % (37-47); Hemoglobin 8.1 g/dL (12.0-15.0); Lymphocyte # 0.91 X10^3/ul (0.83-4.51); Mean Corp Hgb Conc 29.2 g/dL (32-36); Mean Corpuscular Hgb 24.3 pg (27.0-32.0); Mean Corpuscular Volume 82.9 fL (81-99); Mean Platelet Vol. 10.4 fl (6.2-12.0); Monocyte# 0.71 X10^3/uL; Monocyte% 9.3 % (0-10); NRBC Flagged by Analyzer 0.5 % (0-5); Neutrophil # 5.81 X10^3/uL (2.7-7.7); Neutrophil % 76.5 % (47-70); Platelet Count 279 K/mm3 (150-450); RBC Distribution Width CV 17.3 % (11.6-14.6); RBC Distribution Width SD 52.9 fl (35.1-43.9); Red Blood Count 3.34 M/mm3 (4.2-5.4); White Blood Count 7.6 K/mm3 (4.4-11.0)
[2024-05-04] MEDS: Albuterol 2.5 MG/3 ML VIAL.NEB. INHALATION (06:47)
[2024-05-04] MEDS: Budesonide Respules 0.5 MG/2 ML AMPUL.NEB. INHALATION ×2 (06:47→18:45)
--- NOTE | 2024-05-04 06:56 | PCM.PN.HOSP ---
Reason for Visit Reason for Visit: Low outpatient hemoglobin Subjective Subjective Mrs. Macedo is a 68-year-old white female who came to the emergency department [facility] on 05/03/2024 after being found to have an extremely low hemoglobin as an outpatient. She has a history of peripheral vascular disease and had a femoropopliteal bypass about 3 months ago and has been on antiplatelet therapy. As an outpatient she was found to have a hemoglobin of 3.5 so referred to the emergency department. Outpatient symptoms have included fatigue and weakness as well as shortness of breath with exertion. She denied any obvious bleeding including hematemesis, hematochezia or melena and had no dark tarry stools. She also denied any hematuria, vaginal bleeding or hemoptysis. Vital signs on presentation showed a temperature of 98.5, heart rate 143, blood pressure is 124/61, respiratory rate was 24 and oxygen saturations were 90% on room air. CBC had normal white count but hemoglobin of 3.5 that was microcytic in nature. Platelet count was normal. Her chemistry panel was unremarkable with a normal BUN/creatinine ratio with a BUN of 8 and a creatinine of 0.82. Lactic acid was 2.8. Iron studies were markedly consistent with iron deficiency having an iron of 10, iron saturation of 2.1 and a ferritin of 2 and a TIBC of 487. Type and cross was performed and she was transfused 4 units of packed red blood cells and admitted to the ICU given her marked anemia on presentation. Stool occult was ordered but not yet been sent as she has not yet had a bowel movement. Patient reports she is feeling okay today. Denies any obvious blood loss from the colon and denies any hematemesis or hemoptysis. No vaginal bleeding. She reports that she is never had colonoscopy and has no knowledge of any colon cancer previously in her family. We did discuss that she will likely obtain EGD today and possible colonoscopy tomorrow depending on findings on EGD. She voiced understanding and agreement. Objective Data Objective Data Vital Signs: Vital Signs Temp Pulse Resp BP Pulse Ox O2 Del Method O2 Flow Rate 98.7 F 82 18 109/62 94 Nasal Cannula 2 05/04/24 06:00 05/04/24 06:47 05/04/24 06:47 05/04/24 06:00 05/04/24 06:47 05/04/24 06:47 05/04/24 06:47 Oxygen Flow Rate (L/min) 2 Oxygen Delivery Method Nasal Cannula Weight: 80.4 kg Body Mass Index (BMI) 33.5 Intake & Output: Intake and Output for Last 24 Hours 05/02/24 05/03/24 05/04/24 23:59 23:59 23:59 Intake Total 302 / 302 995.33 / 995.33 Output Total 300 / 500 200 / 200 Balance 2 / -198 795.33 / 795.33 Lab / Micro Data 05/04/24 06:10 05/04/24 06:10 Labs: Laboratory Results - last 24 hr 05/03/24 13:58: Lactic Acid 2.8 H*, Magnesium 1.7, Iron 10 L, TIBC 487 H, Iron Saturation 2.1 L, Ferritin 2 L, Blood Type B POSITIVE, Antibody Screen NEGATIVE, Crossmatch See Detail 05/03/24 18:09: Urine Color Yellow, Urine Clarity Clear, Urine pH 7.0, Ur Specific [place] 1.005, Urine Protein 30 H, Urine Glucose (UA) Normal, Urine Ketones Negative, Urine Occult Blood Negative, Urine Nitrite Negative, Urine Bilirubin Negative, Urine Urobilinogen Normal, Ur Leukocyte Esterase Negative, Urine RBC 0 SEEN, Urine WBC 0 SEEN, Ur Squamous Epith Cells 0-5 SEEN, Urine Bacteria 0 SEEN, Urine Mucus 0 SEEN 05/03/24 18:13: Lactic Acid 0.8 05/04/24 06:10: WBC 7.6, RBC 3.34 L, Hgb 8.1 L, Hct 27.7 L, MCV 82.9 D, MCH 24.3 L, MCHC 29.2 L D, RDW Std Deviation 52.9 H, RDW Coeff of Alfie 17.3 H, Plt Count 279, MPV 10.4, Immature Gran % (Auto) 0.900, Neut % (Auto) 76.5 H, Lymph % (Auto) 12.0 L, [place] % (Auto) 9.3, Eos % (Auto) 0.8, Baso % (Auto) 0.5, Absolute Neuts (auto) 5.8, Absolute Lymphs (auto) 0.91, Nucleated RBC % 0.5 Rhythm Strip Rhythm Strip: Sinus Tach Rate: 141 Ectopy: None Physical Exam Const alert, oriented x3, no apparent distress and well nourished; Negative for average body habitus or healthy appearing Constitutional Narrative: Obese, upper middle-aged, white female, sitting in bed, appears older than stated age, appears comfortable, nontoxic, visitor at bedside HEENT head/scalp atraumatic and moist oral mucous membranes HEENT Narrative: Dentures in place, Mallampati 2, no thrush Head and Scalp: normocephalic Eyes PERRL and EOMs intact bilaterally Eyes Narrative: Marked conjunctival pallor bilaterally, no scleral icterus Neck no lymphadenopathy and supple Neck Narrative: Trachea midline, no thyroid enlargement Resp normal respiratory effort, no retractions, no use of accessory muscles and No clear to auscultation bilaterally Resp Narrative: Very few scattered end expiratory wheezes with diminishment diffusely Auscultation: wheezes; Negative for rales or rhonchi Cardio regular rate, regular rhythm, S1 normal heart sound, S2 normal heart sound, no murmurs, no rub, no gallops and no clicks GI normal to inspection, nondistended, normoactive bowel sounds, soft to palpation and non-tender Extremity no clubbing, cyanosis or edema Skin no wounds, skin turgor normal, no jaundice, no petechiae and no mottling Skin Narrative: Skin is pale Neuro oriented x3, moves all extremities and no focal motor deficits Speech: speech normal Psych affect normal Psych Narrative: Eye contact is good and patient interacts appropriately Assessment & Plan Assessment/Plan (1) Acidosis, lactic: (2) Symptomatic anemia: (3) S/P femoral-femoral bypass surgery: (4) Iron (Fe) deficiency anemia: PLAN: Plan Acute on chronic iron deficiency anemia -It appears her hemoglobin has slowly been trending down however baseline most recently has been between 9 and 10. -3.5 on admission -Transfused 4 units packed red blood cells--> hemoglobin now 8.1 -Stool guaiac is pending -Highly suspect GI loss probable lower versus upper given normal BUN/creatinine ratio -Continue Protonix 40 twice daily -Hold cilostazol -Hold Plavix -Hold rivaroxaban -Hold aspirin -Iron studies are consistent with marked iron deficiency anemia -GI consult is pending--> anticipate EGD later today and probable colonoscopy tomorrow if EGD is unremarkable for any findings -Patient has never had colonoscopy Lactic acidosis -Likely related to marked anemia at presentation -Blood given -Now resolved with most recent lactate being 0.8 Peripheral vascular disease -Status post right to left femorofemoral bypass on 01/21/2024 which was performed secondary to 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 -Claudication symptoms had resolved -Will have to hold cilostazol, Plavix, aspirin, and rivaroxaban for now given the above -Plan from vascular surgery is to continue this until 6 months postoperatively and then consider changing rivaroxaban to 2.5 mg daily with a single antiplatelet agent -Patient also 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 due to peripheral vascular disease Hyperlipidemia -Continue home statin Hypertension -Hold home amlodipine given marked anemia on presentation -Will start as needed hydralazine for systolic pressure greater than 160 Vitamin D deficiency -Continue home ergocalciferol 1.25 mg every Bilateral carotid artery stenosis -Antiplatelet therapy and anticoagulation on hold -Continue outpatient follow-up with vascular surgery COPD -Continue home inhalers -As needed albuterol Tobacco abuse -Highly recommend cessation Obesity -BMI 33.5 -Complicates treatment, prognosis, outcomes -Recommend weight loss DVT prophylaxis -SCDs only -Chemoprophylaxis held due to suspected GI bleed with severe iron deficiency anemia CODE STATUS -Full code as verified at the time of admission Charges/Coding Visit Charges Inpatient E&M: 39414 Subs Hosp L3
[2024-05-04 07:04] LABS: Anion Gap 6 (5-15); BUN 8 mg/dL (7-18); Calcium,Total 8.3 mg/dL (8.5-10.1); Chloride 112 mmol/L (98-107); Creatinine, Serum 0.72 mg/dL (0.55-1.02); EST Glomerular Filtration Rate 85 mL/min (>60); Est Glom Filt Rate - Afr Amer 103 mL/min (>60); Estimated Creatinine Clearance 66.44 ml/min; Glucose 89 mg/dL (74-106); Sodium Level 143 mmol/L (136-145); Thyroid Stim Hormone (TSH) 1.68 uIU/mL (0.358-3.74)
--- NOTE | 2024-05-04 09:25 | CASEMGMT ---
DALIA NEVAREZ Assessment Face to Face with patient for initial transition planning/care coordination assessment. DALIA NEVAREZ introduced self and role at [facility], pt voices understanding. Pt is A&Ox4 and is resting comfortably in bed and is calm. Pt friend (Micaela) and cousin (Poppy) at bedside. Care providers, pharmacy, and demographics verified. Admitting dx: Severe Anemia (Hgb 3.5) LACE Strata: 3 PCP: Vincent Ashley Specialists: Doug Frost Preferred [facility]acy: [facility] Insurance: [place] Secure Prescription Benefit: Yes LNOK: Poppy Kwong (Cousin) Living Arrangements: Pt lives with her 44 y/o son in a two story home with a FFSU and 2 steps to enter with handrails. ADLs/IADLs: Pt states that she is independent Transportation: Pt does not drive. Pt friend (Micaela) and Cousin (Poppy) drive her DME: Home O2 through [employer]. Pt current order states 2LPM w/ exertion. Pt states that she has a pulse ox and concentrator at home but no portability. Pt states that she does not want a portable tank at this time. CM to follow. Pt also has a BSC, FWW, and a Cane. HHC/SNF: Denies Pt?s goal: Return home Plan: At this time, the pt is adamant about refusing HHC, OP therapy, or SNF needs. Pt states that she wishes to return home once she is medically ready. This RN ROQUE educated that PT will evaluate the pt and make recommendations based on her current status. Pt also educated that CM will follow for increased oxygen demands. Pt states understanding. CM and SW to follow to ensure safe DC from [facility]. Anabel Nunez RN, CM
[2024-05-04] MEDS: Pantoprazole Sodium 40 MG in 0.9% Normal Saline (100mL MB+) 100 ML 330 MG IV ×2 (09:38→20:40)
[2024-05-04 11:59] LABS: Hematocrit 25.8 % (37-47); Hemoglobin 7.8 g/dL (12.0-15.0)
[2024-05-04] MEDS: Furosemide 40 MG/4 ML Vial IV (14:07)
--- NOTE | 2024-05-04 18:17 | EX.PCM.CON.G ---
HPI Consult Data Date of Consult: 05/04/24 HPI Narrative Reason for Consultation: Anemia HPI Narrative: TONY BRADLEY, is [id number] woman who has been experiencing fatigue, lack of energy, shortness of breath with activity who had blood work this morning that revealed a hemoglobin of 3.5 with microcytic indices. She denies black or maroon-colored stool. She denies hematuria. Denies bruising easily. She had recent surgery by Dr. Frost. She had a stent placed left lower extremity. Patient denies headache, visual, ocular auditory symptoms. Patient [place] ringing or ears. Patient has trouble with speech or swallowing. Patient denies chest pain, pressure tightness heaviness. Patient does report shortness of breath with activity.Hemoglobin was discovered to be 3.8 . she has never had a colonoscopy. She is on Plavix, rosuvastatin, Xarelto and aspirin. [facility] Medical History Atherosclerosis of [place] arteries of extremities with gangrene, left leg Carotid stenosis, bilateral Tobacco abuse Peripheral arterial occlusive disease Cervical cancer PVD (peripheral vascular disease) Arthritis Home Medications ?Medication ?Instructions ?Recorded ?Last Taken ?Type acetaminophen 650 mg 650 mg PO Q6H PRN Pain 06/25/18 Unknown History tablet,extended release (Tylenol Arthritis Pain) albuterol sulfate 90 mcg/actuation 2 puff inhalation Q6H PRN 01/08/24 Unknown History aerosol inhaler shortness of breath or wheezing amlodipine 5 mg tablet 5 mg PO DAILY 01/08/24 05/03/24 History aspirin 81 mg tablet,delayed 81 mg PO DAILY 01/08/24 05/03/24 History release budesonide-formoterol HFA 160 2 puff inhalation BID 01/08/24 Unknown History mcg-4.5 mcg/actuation aerosol inhaler rosuvastatin 10 mg tablet 10 mg PO DAILY 01/08/24 05/03/24 History rivaroxaban 2.5 mg tablet (Xarelto) 2.5 mg PO BID #60 tabs 01/22/24 05/03/24 Rx cilostazol 50 mg tablet 50 mg PO BID #60 tabs 02/11/24 05/03/24 Rx clopidogrel 75 mg tablet (Plavix) 75 mg PO DAILY #30 tabs 02/11/24 05/03/24 Rx cholecalciferol (vitamin D3) 1,250 1,250 mcg PO TH 05/03/24 Unknown History mcg (50,000 unit) capsule Allergy/AdvReac Type Severity Reaction Status Date / Time No Known Allergies Allergy Verified 05/03/24 13:41 Family History Mother Breast cancer Surgical History S/P LEFT ARTERIOGRAM Social History Smoking Status: Light Smoker (<10/day) alcohol intake: never substance use type: does not use ROS ROS Narrative Constitutional: Reports recent fatigue and weakness. No fever. HEENT: Reports systems reviewed and no addt'l complaints, except as documented Respiratory/Chest: No acute shortness of breath or respiratory distress or wheezing. Dyspnea on exertion CVS: No chest pain, pressure or tightness. PAD: History of a stent in the leg and bypass surgery of left lower extremity. History of claudication pain/rest. Gastrointestinal: Denies coffee ground emesis, hematemesis or vomiting Genitourinary: Denies burning urination or new urinary tract symptoms Musculoskeletal: Denies acute joint pain or limited range of motion. No acute injury Neurologic: Denies seizure-like symptoms. skin: No ulcer. No rash Endocrinology: Reports systems reviewed and no addt'l complaints, except as documented Hematologic/Lymphatic: Reports systems reviewed and no addt'l complaints, except as documented Rest 14 ROS are negative except as mentioned in HPI Physical Exam Narrative General: Alert, Oriented x3, Cooperative HEENT: Atraumatic, PERRLA, EOMI, Normocephalic. Pale conjunctiva Oral: Oral mucosa moist. No Gingival or Mucosal Lesions/ Ulcerations Neck: Supple, No JVD, Negative Carotid Bruits Chest wall/Lungs: Air entry diminished in bilateral lung bases. No crepitation/rhonchi Cardiovascular: Sinus tachycardia, systolic murmur present over LLSB. Regular rhythm Abdomen: Bowel Sounds Present, Soft, Non Tender, Non-Distended : No dysuria. No renal angle tenderness. No suprapubic tenderness. Extremities: mild bilateral pitting leg edema, Capillary Refill Less than 3 Seconds Skin: No rashes, No breakdown Musculoskeletal: No Tenderness to Palpation of Joints or Extremities Neurological: Cranial nerves II-XII grossly intact, DTR 2+/4. No acute focal neurological deficit. Psych/Mental Status: Flat affect Lab / Micro Data 05/04/24 11:50 05/04/24 06:10 Labs: Laboratory Results - last 24 hr 05/03/24 13:58: Blood Type B POSITIVE, Antibody Screen NEGATIVE, Crossmatch See Detail 05/03/24 18:09: Urine Color Yellow, Urine Clarity Clear, Urine pH 7.0, Ur Specific [place] 1.005, Urine Protein 30 H, Urine Glucose (UA) Normal, Urine Ketones Negative, Urine Occult Blood Negative, Urine Nitrite Negative, Urine Bilirubin Negative, Urine Urobilinogen Normal, Ur Leukocyte Esterase Negative, Urine RBC 0 SEEN, Urine WBC 0 SEEN, Ur Squamous Epith Cells 0-5 SEEN, Urine Bacteria 0 SEEN, Urine Mucus 0 SEEN 05/03/24 18:13: Lactic Acid 0.8 05/04/24 06:10: WBC 7.6, RBC 3.34 L, Hgb 8.1 L, Hct 27.7 L, MCV 82.9 D, MCH 24.3 L, MCHC 29.2 L D, RDW Std Deviation 52.9 H, RDW Coeff of Alfie 17.3 H, Plt Count 279, MPV 10.4, Immature Gran % (Auto) 0.900, Neut % (Auto) 76.5 H, Lymph % (Auto) 12.0 L, [place] % (Auto) 9.3, Eos % (Auto) 0.8, Baso % (Auto) 0.5, Absolute Neuts (auto) 5.8, Absolute Lymphs (auto) 0.91, Nucleated RBC % 0.5, Sodium 143, Potassium 4.0, Chloride 112 H, Carbon Dioxide 25.0, Anion Gap 6, BUN 8, Creatinine 0.72, Estim Creat Clear Calc 66.44, Est GFR (MDRD) Af Amer 103, Est GFR (MDRD) Non-Af 85, BUN/Creatinine Ratio 11.0, Glucose 89, Calcium 8.3 L, TSH 1.68 05/04/24 11:50: Hgb 7.8 L, Hct 25.8 L Rhythm Strip Rhythm Strip: Sinus Tach Rate: 141 Ectopy: None Assessment & Plan Assessment/Plan (1) Symptomatic anemia: (2) Iron (Fe) deficiency anemia: PLAN: Plan This 68-year-old female is being admitted for severe anemia, hemoglobin 3.5 on an outpatient lab. Acute severe symptomatic anemia: Patient last H&H 9.7/31% in January 2024. However back in October her hemoglobin was 12.4. Today her hemoglobin and hematocrit is 3.5/13.7%. Platelet count. 569,000. White count normal. Twelve-lead EKG shows sinus tachycardia 121 bpm, QTc 443 ms. Differential diagnosis for acute blood loss anemia would be peptic ulcer disease, gastric antral vascular ectasia, angiodysplasia, neoplasia, celiac disease. Acute on chronic iron deficiency anemia: Iron profile shows serum iron 10, TIBC elevated 497, iron saturation 2.1%. Ferritin 2, consistent with iron deficiency anemia. Stool for occult blood ordered. Empirically started on pantoprazole 40 mg q. 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 Patient had office visit on 03/21/2024 and found well-healed incision site. Patient on aspirin 81 mg daily, Plavix 75 mg daily and Xarelto 2.5 mg twice daily. Outpatient office plan was to continue for 6 months and then Xarelto 2.5 mg with single antiplatelet agent. Continue to hold all 3 antiplatelet/anticoagulant agent unless vascular surgery says to continue medicines. She will undergo EGD and colonoscopy. She has not had a colonoscopy in the past. She was explained alternatives, risk, benefits including not withstanding bleeding, infection, sepsis, perforation, need for emergent surgery and . She will have an ASA of 3. Charges/Coding Visit Charges Inpatient E&M: 85028 Init Hosp L3
[2024-05-04] MEDS: Bisacodyl 5 MG Tablet 20 MG PO (18:37)
[2024-05-04] MEDS: Ipratropium/Albuterol Sulfate 3 ML AMPUL.NEB INHALATION (18:45)
[2024-05-04] MEDS: Atorvastatin Calcium 20 MG Tablet PO (20:29)
[2024-05-04] MEDS: Polyethylene Glycol 3350 BOWEL PREP PO (20:29)
--- NOTE | 2024-05-04 21:20 | NURSING ---
To floor in 312 @ 21:20
[2024-05-04] MEDS: Metoclopramide 10 MG/2 ML Vial IV (23:41)
[2024-05-05] VITALS (11 sets, daily range): BP systolic 113–135; BP diastolic 54–69; PULSE 93–113; RESP 18–22; TEMP 36.6–38.8; O2SAT 2–97; BMI 31.0
[2024-05-05] MEDS: Metoclopramide 10 MG/2 ML Vial IV ×3 (05:16→18:19)
[2024-05-05] MEDS: 0.9% Saline Lock 10 ML Syringe IV ×2 (05:16→13:22)
--- NOTE | 2024-05-05 05:55 | RAD_ITS ---
STUDY: X-RAY CHEST REASON FOR EXAM: Female, 68 years old. SOB TECHNIQUE: Single AP portable view of the chest. COMPARISON: Comparison is made with prior study dated January 08, 2024. FINDINGS: Diffuse airspace disease in the right hemithorax. This may represent either pneumonic infiltration versus atypical pulmonary edema. Follow-up recommended. Blunting of the right costophrenic angle. Normal size heart. Normal mediastinum and aguila. Normal visualized pulmonary arteries. There is atherosclerotic calcification of the aortic arch with tortuosity. There are diffuse degenerative changes of the visualized thoracic spine. Normal visualized ribs, clavicles, and shoulders. There is no demonstrated abnormality of the visualized soft tissue structures of the upper abdomen. RAD/Chest 1 View (Portable) IMPRESSION: Airspace disease in the right hemithorax suggestive of either pneumonic infiltration versus atypical pulmonary edema. There is blunting of the right costophrenic angle. Follow-up recommended. Electronically Signed: Kenan Garvey MD at 7:59 EDT ,
[2024-05-05] MEDS: 0.9% Normal Saline (1000mL) 1,000 ML 60 ML IV (06:12)
[2024-05-05 06:42] LABS: Absolute Lymphocyte Count 0.77 X10^3/uL (0.83-4.51); Absolute Neutrophil Count 6.1 X10^3/uL (2.0-7.7); Basophil# 0.02 X10^3/uL; Basophil% 0.3 % (0-1); Eosinophil# 0.08 X10^3/uL; Hemoglobin 8.2 g/dL (12.0-15.0); Lymphocyte # 0.77 X10^3/ul (0.83-4.51); Lymphocyte % 9.6 % (19-41); Mean Corp Hgb Conc 29.3 g/dL (32-36); Mean Corpuscular Hgb 24.6 pg (27.0-32.0); Mean Corpuscular Volume 83.8 fL (81-99); Mean Platelet Vol. 11.2 fl (6.2-12.0); Monocyte# 0.94 X10^3/uL; Monocyte% 11.8 % (0-10); NRBC Flagged by Analyzer 0.3 % (0-5); Neutrophil # 6.12 X10^3/uL (2.7-7.7); Neutrophil % 76.5 % (47-70); Platelet Count 265 K/mm3 (150-450); RBC Distribution Width CV 18.4 % (11.6-14.6); RBC Distribution Width SD 55.5 fl (35.1-43.9); Red Blood Count 3.34 M/mm3 (4.2-5.4)
[2024-05-05 07:09] LABS: ALB/GLOB Ratio 0.8 RATIO (0.9-2.4); AST(SGOT) 6 U/L (15-37); Alanine Aminotransfer ALT/SGPT 13 U/L (13-56); Albumin, Serum 2.6 g/dL (3.2-5.0); Alkaline Phosphatase 73 U/L (45-117); Anion Gap 5 (5-15); BUN 7 mg/dL (7-18); BUN/Creat Ratio 10.3 RATIO (10-20); Calcium,Total 8.4 mg/dL (8.5-10.1); Chloride 107 mmol/L (98-107); Creatinine, Serum 0.68 mg/dL (0.55-1.02); EST Glomerular Filtration Rate 92 mL/min (>60); Est Glom Filt Rate - Afr Amer 111 mL/min (>60); Globulin 3.2 g/dL (2.2-4.2); Glucose 90 mg/dL (74-106); Magnesium 1.7 mg/dL (1.6-2.6); Phosphorus 4.1 mg/dL (2.5-4.9); Protein, Total 5.8 g/dL (6.4-8.2); Sodium Level 141 mmol/L (136-145)
[2024-05-05 08:14] LABS: BNP,B-Type NATRIURETIC PEPTIDE 215.7 pg/mL (0-100)
[2024-05-05 08:36] LABS: International Normalized Ratio 1.3; Prothrombin Time (Protime)PT. 15.9 SECONDS (11.7-14.9)
[2024-05-05 08:37] LABS: Partial Thromboplast Time 29.1 Seconds (24.1-36.2)
[2024-05-05] MEDS: Pantoprazole Sodium 40 MG in 0.9% Normal Saline (100mL MB+) 100 ML 330 MG IV ×2 (08:59→20:58)
[2024-05-05] MEDS: Acetaminophen 325 MG Tablet 650 MG PO ×2 (09:29→18:20)
--- NOTE | 2024-05-05 09:48 | ECHOL_ITS ---
Reason For Study: OTHER Procedure This was a limited 2D transthoracic echocardiogram. Left Ventricle Normal LV size. The estimated ejection fraction is 60 %. Unable to assess diastolic dysfunction. No regional wall motion abnormalities noted. Right Ventricle Normal RV size. Normal systolic function. Atria The left and right atria are normal. Mitral Valve There is no mitral valve stenosis. Tricuspid Valve There is no tricuspid stenosis. Aortic Valve Trisinus/trileaflet aortic valve. Aortic sclerosis, no stenosis. There is no aortic stenosis. Great Vessels Normal aortic root. Pericardium/Pleural No pericardial effusion. MMode/2D Measurements & Calculations LVIDd: 4.7 cm IVSd: 1.0 cm LAV(MOD-bp): 76.8 ml LVIDs: 3.8 cm LVPWd: 1.0 cm LAV(MOD-bp) Indexed: 44.2 ml/m2 FS: 19.5 % LAV(MOD-sp2): 73.6 ml LAV(MOD-sp4): 72.1 ml LVAd ap4: 30.4 cm2 SV(MOD-sp4): 59.8 ml SV(sp4-el): 62.0 ml LVLd ap4: 8.1 cm EDV(MOD-sp4): 95.1 ml EDV(sp4-el): 96.7 ml LVAs ap4: 16.5 cm2 LVLs ap4: 6.6 cm ESV(MOD-sp4): 35.3 ml ESV(sp4-el): 34.7 ml EF(MOD-sp4): 62.9 % EF(sp4-el): 64.1 % LA A4 area: 22.2 cm2 LA dimension(2D): 4.0 cm RA A4 area: 16.7 cm2 ECHO/Echo, Limited Study Interpretation Summary The estimated ejection fraction is 60 %. Unable to assess diastolic dysfunction. Ordering Physician: Belinda Baker Referring Physician: CARLINE HUIZAR Performed By: Marleni Gibbs RCS
[2024-05-05] MEDS: Potassium Chloride Oral Tablet 20 MEQ 60 MEQ PO (10:50)
[2024-05-05] MEDS: Ergocalciferol 1.25 MG (50, 000 UNIT) Capsule PO (10:50)
[2024-05-05] MEDS: Furosemide 40 MG/4 ML Vial IV (10:50)
[2024-05-05] MEDS: Ampicillin/Sulbactam 3 GM in 0.9% Normal Saline (100mL MB+) 100 ML IV ×2 (13:23→18:19)
--- NOTE | 2024-05-05 13:46 | PCM.PN.HOSP ---
Reason for Visit Reason for Visit: Diagnoses Iron deficiency anemia, unspecified (05/03/24) Anemia, unspecified (05/03/24) Acidosis, unspecified (05/03/24) Presence of other vascular implants and grafts (05/03/24) Subjective Subjective No issues overnight. Did prep for colonoscopy and plan was for EGD and colon today however patient has had a fever. Now coughing and patient states she is coughing a little bit more than typical. Coughing up stuff intermittently. Is a poor historian overall. Objective Data Objective Data Vital Signs: Vital Signs Temp Pulse Resp BP Pulse Ox O2 Del Method O2 Flow Rate 98.8 F 113 H 22 H 135/69 H 94 Nasal Cannula 2 05/05/24 13:24 05/05/24 09:30 05/05/24 09:30 05/05/24 09:30 05/05/24 10:20 05/05/24 10:20 05/05/24 10:20 Oxygen Flow Rate (L/min) 2 Oxygen Delivery Method Nasal Cannula Weight: 74.6 kg Body Mass Index (BMI) 31.0 Intake & Output: Intake and Output for Last 24 Hours 05/03/24 05/04/24 05/05/24 23:59 23:59 23:59 Intake Total 302 / 302 2215.33 / 5215.33 3541 / 3541 Output Total 300 / 500 2200 / 2200 Balance 2 / -198 15.33 / 3015.33 3541 / 3541 Lab / Micro Data 05/05/24 05:35 05/05/24 05:35 Labs: Laboratory Results - last 24 hr 05/05/24 05:35: WBC 8.0, RBC 3.34 L, Hgb 8.2 L, Hct 28.0 L, MCV 83.8, MCH 24.6 L, MCHC 29.3 L, RDW Std Deviation 55.5 H, RDW Coeff of Alfie 18.4 H, Plt Count 265, MPV 11.2, Immature Gran % (Auto) 0.800, Neut % (Auto) 76.5 H, Lymph % (Auto) 9.6 L, [place] % (Auto) 11.8 H, Eos % (Auto) 1.0, Baso % (Auto) 0.3, Absolute Neuts (auto) 6.1, Absolute Lymphs (auto) 0.77 L, Nucleated RBC % 0.3, PT 15.9 H, INR 1.3, APTT 29.1, Sodium 141, Potassium 3.0 L, Chloride 107, Carbon Dioxide 29.0, Anion Gap 5, BUN 7, Creatinine 0.68, Estim Creat Clear Calc 63.90, Est GFR (MDRD) Af Amer 111, Est GFR (MDRD) Non-Af 92, BUN/Creatinine Ratio 10.3, Glucose 90, Calcium 8.4 L, Phosphorus 4.1, Magnesium 1.7, Total Bilirubin 0.50, AST 6 L, ALT 13, Alkaline Phosphatase 73, B-Natriuretic Peptide 215.7 H, Total Protein 5.8 L, Albumin 2.6 L, Globulin 3.2, Albumin/Globulin Ratio 0.8 L Micro: Microbiology 05/05/24 10:34 Mucosa - Nose Coronavirus COVID-19 PCR - Final 05/04/24 22:50 Stool Stool Occult Blood (MARTHA) - Final Occult Blood Positive Radiography Diagnostic Testing: Radiology Impression Chest X-Ray 05/05/24 05:55 IMPRESSION: Airspace disease in the right hemithorax suggestive of either pneumonic infiltration versus atypical pulmonary edema. There is blunting of the right costophrenic angle. Follow-up recommended. Electronically Signed: Kenan Garvey MD at 7:59 EDT , Echocardiogram 05/05/24 09:48 Interpretation Summary The estimated ejection fraction is 60 %. Unable to assess diastolic dysfunction. Ordering Physician: Belinda Baker Referring Physician: CARLINE HUIZAR Performed By: Marleni Gibbs RCS Rhythm Strip Rhythm Strip: Sinus Tach Rate: 141 Ectopy: None Physical Exam Const alert, oriented x3, no apparent distress and well nourished; Negative for average body habitus or healthy appearing Constitutional Narrative: Obese, upper middle-aged, white female, sitting in bed, appears older than stated age, appears comfortable, intermittent coughing that seems to be mildly productive, nontoxic, visitor at bedside HEENT head/scalp atraumatic and moist oral mucous membranes HEENT Narrative: Dentition is poor, Mallampati is 3, tongue is large, no thrush Head and Scalp: normocephalic Eyes PERRL and EOMs intact bilaterally Eyes Narrative: Marked conjunctival pallor bilaterally, no scleral icterus Neck no lymphadenopathy and supple Neck Narrative: Trachea midline, no thyroid enlargement Resp normal respiratory effort, no retractions, no use of accessory muscles and No clear to auscultation bilaterally Resp Narrative: Severely diminished especially right base Auscultation: wheezes; Negative for rales or rhonchi Cardio regular rate, regular rhythm, S1 normal heart sound, S2 normal heart sound, no murmurs, no rub, no gallops and no clicks GI normal to inspection, nondistended, normoactive bowel sounds, soft to palpation and non-tender Extremity no clubbing, cyanosis or edema Skin no wounds, skin turgor normal, no jaundice, no petechiae and no mottling Skin Narrative: Skin is pale Neuro oriented x3, moves all extremities and no focal motor deficits Speech: speech normal Psych affect normal Psych Narrative: Eye contact is good and patient interacts appropriately Assessment & Plan Assessment/Plan (1) Acidosis, lactic: (2) Symptomatic anemia: (3) S/P femoral-femoral bypass surgery: (4) Iron (Fe) deficiency anemia: (5) Hypoxia: (6) Fever: PLAN: Plan Acute on chronic iron deficiency anemia -It appears her hemoglobin has slowly been trending down however baseline most recently has been between 9 and 10. -3.5 on admission -Transfused 4 units packed red blood cells--> follow-up hemoglobin has been stable and currently 8.2 this morning after transfusion -Stool guaiac was occult positive -Highly suspect GI loss probable lower versus upper given normal BUN/creatinine ratio -Continue Protonix 40 twice daily -Hold cilostazol -Hold Plavix -Hold rivaroxaban -Hold aspirin -Iron studies are consistent with marked iron deficiency anemia -GI is planning for EGD and colonoscopy however this is currently on hold due to fever and hypoxia Acute hypoxia with fever -Lasix 40 mg IV push x 1 next-discontinue IV fluids -Check blood cultures next-check sputum culture -UA is not consistent with infection -Respiratory viral panel is unremarkable -COVID is negative -Highly suspect right lower lobe pneumonia as there appears to be a consolidation on her chest x-ray next-check strep pneumo Legionella antigens -Start Unasyn and will start azithromycin if Legionella is positive -BNP was slightly elevated and limited echocardiogram was done and shows stable EF at 60% with no changes from previous echocardiogram 3 months ago Peripheral vascular disease -Status post right to left femorofemoral bypass on 01/21/2024 which was performed secondary to 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 -Claudication symptoms had resolved -Will have to hold cilostazol, Plavix, aspirin, and rivaroxaban for now given the above -Plan from vascular surgery is to continue this until 6 months postoperatively and then consider changing rivaroxaban to 2.5 mg daily with a single antiplatelet agent -Patient also 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 due to peripheral vascular disease Hyperlipidemia -Continue home statin Hypertension -Hold home amlodipine given marked anemia on presentation -hydralazine for systolic pressure greater than 160 Vitamin D deficiency -Continue home ergocalciferol 1.25 mg every Bilateral carotid artery stenosis -Antiplatelet therapy and anticoagulation on hold -Continue outpatient follow-up with vascular surgery COPD -Continue home inhalers -As needed albuterol Tobacco abuse -Highly recommend cessation Obesity -BMI 33.5 -Complicates treatment, prognosis, outcomes -Recommend weight loss DVT prophylaxis -SCDs only -Chemoprophylaxis held due to suspected GI bleed with severe iron deficiency anemia CODE STATUS -Full code as verified at the time of admission Charges/Coding Visit Charges Inpatient E&M: 20319 [facility] Hosp L3
--- NOTE | 2024-05-05 18:26 | PN.GI_ITS ---
Subjective Subjective Patient developed fevers today so we cannot do her upper and lower endoscopy to discover the etiology of her severe anemia. Her last temperature was 101.6. She is still mildly tachycardic. Her heart rate has been ranging from 90-1 05 and her pressure currently is 115/76. Objective Data Objective Data Vital Signs: Vital Signs Temp Pulse Resp BP Pulse Ox O2 Del Method O2 Flow Rate 101.6 F H 97 18 117/61 2 Nasal Cannula 2 05/05/24 18:20 05/05/24 15:37 05/05/24 15:37 05/05/24 15:37 05/05/24 15:45 05/05/24 15:45 05/05/24 15:37 Oxygen Flow Rate (L/min) 2 Oxygen Delivery Method Nasal Cannula Weight: 164 lb 7.437 oz Body Mass Index (BMI) 31.0 Intake & Output: Intake and Output for Last 24 Hours 05/03/24 05/04/24 05/05/24 23:59 23:59 23:59 Intake Total 302 / 302 2215.33 / 5215.33 3653 / 3653 Output Total 300 / 500 2200 / 2200 1600 / 1600 Balance 2 / -198 15.33 / 3015.33 2053 / 2053 Lab / Micro Data 05/05/24 05:35 05/05/24 05:35 Labs: Laboratory Results - last 24 hr 05/05/24 05:35: WBC 8.0, RBC 3.34 L, Hgb 8.2 L, Hct 28.0 L, MCV 83.8, MCH 24.6 L , MCHC 29.3 L, RDW Std Deviation 55.5 H, RDW Coeff of Alfie 18.4 H, Plt Count 265, MPV 11.2, Immature Gran % (Auto) 0.800, Neut % (Auto) 76.5 H, Lymph % (Auto) 9.6 L, [place] % (Auto) 11.8 H, Eos % (Auto) 1.0, Baso % (Auto) 0.3, Absolute Neuts (auto) 6.1, Absolute Lymphs (auto) 0.77 L, Nucleated RBC % 0.3, PT 15.9 H, INR 1.3, APTT 29.1, Sodium 141, Potassium 3.0 L, Chloride 107, Carbon Dioxide 29.0, Anion Gap 5, BUN 7, Creatinine 0.68, Estim Creat Clear Calc 63.90, Est GFR (MDRD) Af Amer 111, Est GFR (MDRD) Non-Af 92, BUN/Creatinine Ratio 10.3, Glucose 90, Calcium 8.4 L, Phosphorus 4.1, Magnesium 1.7, Total Bilirubin 0.50, AST 6 L, ALT 13, Alkaline Phosphatase 73, B-Natriuretic Peptide 215.7 H, Total Protein 5.8 L, Albumin 2.6 L, Globulin 3.2, Albumin/Globulin Ratio 0.8 L Micro: Microbiology 05/05/24 15:20 Urine, Random Legionella Antigen - Final 05/05/24 15:20 Urine, Random Streptococcus pneumoniae Antigen (M - Final 05/05/24 10:34 Mucosa - Nose Coronavirus COVID-19 PCR - Final 05/05/24 10:34 Mucosa - Nose Respiratory Panel (PCR) - Final 05/04/24 22:50 Stool Stool Occult Blood (MARTHA) - Final Occult Blood Positive Radiography Diagnostic Testing: Radiology Impression Chest X-Ray 05/05/24 05:55 IMPRESSION: Airspace disease in the right hemithorax suggestive of either pneumonic infiltration versus atypical pulmonary edema. There is blunting of the right costophrenic angle. Follow-up recommended. Electronically Signed: Kenan Garvey MD at 7:59 EDT , Echocardiogram 05/05/24 09:48 Interpretation Summary The estimated ejection fraction is 60 %. Unable to assess diastolic dysfunction. Ordering Physician: Belinda Baker Referring Physician: CARLINE HUIZAR Performed By: Marleni Gibbs RCS Rhythm Strip Rhythm Strip: Sinus Tach Rate: 141 Ectopy: None Physical Exam Narrative General: Alert, Oriented x3, Cooperative HEENT: Atraumatic, PERRLA, EOMI, Normocephalic. Pale conjunctiva Oral: Oral mucosa moist. No Gingival or Mucosal Lesions/ Ulcerations Neck: Supple, No JVD, Negative Carotid Bruits Chest wall/Lungs: Air entry diminished in bilateral lung bases. No crepitation/rhonchi Cardiovascular: Sinus tachycardia, systolic murmur present over LLSB. Regular rhythm Abdomen: Bowel Sounds Present, Soft, Non Tender, Non-Distended : No dysuria. No renal angle tenderness. No suprapubic tenderness. Extremities: mild bilateral pitting leg edema, Capillary Refill Less than 3 Seconds Skin: No rashes, No breakdown Musculoskeletal: No Tenderness to Palpation of Joints or Extremities Neurological: Cranial nerves II-XII grossly intact, DTR 2+/4. No acute focal neurological deficit. Psych/Mental Status: Flat affect Assessment & Plan Assessment/Plan (1) Symptomatic anemia: (2) Iron (Fe) deficiency anemia: PLAN: Plan This 68-year-old female is being admitted for severe anemia, hemoglobin 3.5 on an outpatient lab. Acute severe symptomatic anemia: Patient last H&H 9.7/31% in January 2024. However back in October her hemoglobin was 12.4. Today her hemoglobin and hematocrit is 3.5/13.7%. Platelet count. 569,000. White count normal. Twelve-lead EKG shows sinus tachycardia 121 bpm, QTc 443 ms. Differential diagnosis for acute blood loss anemia would be peptic ulcer disease, gastric antral vascular ectasia, angiodysplasia, neoplasia, celiac disease. Acute on chronic iron deficiency anemia: Iron profile shows serum iron 10, TIBC elevated 497, iron saturation 2.1%. Ferritin 2, consistent with iron deficiency anemia. Stool for occult blood ordered. Empirically started on pantoprazole 40 mg q. 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 Patient had office visit on 03/21/2024 and found well-healed incision site. Patient on aspirin 81 mg daily, Plavix 75 mg daily and Xarelto 2.5 mg twice daily. Outpatient office plan was to continue for 6 months and then Xarelto 2.5 mg with single antiplatelet agent. Continue to hold all 3 antiplatelet/anticoagulant agent unless vascular surgery says to continue medicines. She will undergo EGD and colonoscopy. She has not had a colonoscopy in the past. She was explained alternatives, risk, benefits including not withstanding bleeding, infection, sepsis, perforation, need for emergent surgery and . She will have an ASA of 3. 05/05/2024-the plan is to perform her EGD and colonoscopy tomorrow unless primary service wants to hold off. Continue to hold anticoagulation and antiplatelet therapy. Charges/Coding Visit Charges Inpatient E&M: 98626 Subs Hosp L3
[2024-05-05] MEDS: Ipratropium/Albuterol Sulfate 3 ML AMPUL.NEB INHALATION (19:33)
[2024-05-05] MEDS: Budesonide Respules 0.5 MG/2 ML AMPUL.NEB. INHALATION (19:34)
[2024-05-05] MEDS: Atorvastatin Calcium 20 MG Tablet PO (20:51)
[2024-05-06] VITALS (16 sets, daily range): BP systolic 93–128; BP diastolic 42–73; PULSE 74–123; RESP 18–24; TEMP 36.6–39.1; O2SAT 93–99; BMI 31.0
--- NOTE | 2024-05-06 | GASB_PTH ---
PATIENT: TONY BRADLEY LOC: MS3 U#:[id number] AGE/SX: 68/F ROOM: [facility] [place] RE05/03/[address]: Dr. Belinda Baker DO : 1955 BED: 1 DIS: 05/10/2024 SPEC #: [id number] RECD: 05/06/24 14:08 STATUS: ALEXANDRO REMac #: [id number] KIKE: 05/06/24 00:[address]: Adi Kincaid DEPT: SURGICAL PATHOLOGY RECD BY: John Malave ENTERED: 05/09/24 09:03 SP TYPE: Gastric Bx OTHR DR: DO Dr. Robert Strong MD Richard Dennis Tompkins, VICE PRESIDENT FOR PHILANTHROPY-C Tissues: A - Duodenum, NOS B - Gastric mucous membrane C - Cecum, NOS D - Ileum, NOS Procedures: Special Stain Group I Surgery Specimen Level IV Alcian Blue/PAS (control) Comments: @ Ordering doctor for ALIYA edited from to @ brenna AGUILLON at 05/09/24 09 @ Submitting doctor edited from to @ brenna AGUILLON at 05/09/24 0937 HEADER OPERATION: Colonoscopy, EGD, biopsy, electrohemostasis PRE-OP DIAGNOSIS: Symptomatic anemia, iron deficiency anemia TISSUE SUBMITTED: A- Duodenum biopsy, B- Gastric antrum biopsy, C- Cecum colitis biopsy, D- Terminal ileum biopsy MICROSCOPIC DIAGNOSIS A. Duodenum, biopsy: Fragments of duodenal mucosa with mild Sandie gland hyperplasia. B. Gastric antrum, biopsy: Mild gastritis. Focal intestinal metaplasia (goblet cells metaplasia). See microscopic description and comment. C. Cecum colitis, biopsy: Fragments of tubular adenoma. Moderate non-specific chronic inflammation. See comment. D. Terminal ileum biopsy: Fragments of small intestinal mucosa with dilated and congested blood vessels and focal fibrosis of lamina propria / 05/10/2024 COMMENT B. The results of immunohistochemistry for Helicobacter pylori will be reported separately ([id number]). Alcian blue/PAS stain with matched control is used in the evaluation of the specimen. C. Cryptitis, crypt abscess or granuloma are not seen. Correlation with clinical, endoscopic findings and appropriate follow up are necessary. MICROSCOPIC DESCRIPTION Slides are reviewed. B. The specimen shows fragments of gastric mucosa with chronic inflammatory cell infiltrates in the lamina propria consisting of lymphocytes and plasma cells, consistent with mild chronic gastritis. Focal intestinal metaplasia (goblet cell metaplasia) is also noted. GROSS DESCRIPTION A. Received in fixative is one container labeled with the patient's name and designated Duodenum biopsy. The specimen consists of two irregular fragments of light hemphill soft tissue that in aggregate measure 0.6 x 0.2 x 0.1 cm. The specimen is totally submitted in one cassette. B. Received in fixative is one container labeled with the patient's name and designated Gastric antrum. The specimen consists of multiple irregular fragments of light hemphill soft tissue that in aggregate measure 1.0 x 0.3 x 0.1 cm. The specimen is totally submitted in one cassette. C. Received in fixative is one container labeled with the patient's name and designated Cecum colitis biopsy. The specimen consists of multiple irregular fragments of light hemphill soft tissue that in aggregate measure 0.8 x 0.2 x 0.1 cm. The specimen is totally submitted in one cassette. D. Received in fixative is one container labeled with the patient's name and designated Terminal ileum biopsy. The specimen consists of multiple irregular fragments of light hemphill soft tissue that in aggregate measure 1.0 x 0.2 x 0.1 cm. The specimen is totally submitted in one cassette. Jim 05/09/2024 TC:1 [facility]:[id number]
[2024-05-06] MEDS: Metoclopramide 10 MG/2 ML Vial IV ×5 (00:22→23:13)
[2024-05-06] MEDS: Ampicillin/Sulbactam 3 GM in 0.9% Normal Saline (100mL MB+) 100 ML IV ×2 (00:22→05:54)
[2024-05-06 07:41] LABS: Absolute Lymphocyte Count 0.86 X10^3/uL (0.83-4.51); Basophil# 0.03 X10^3/uL; Basophil% 0.4 % (0-1); Eosinophil# 0.02 X10^3/uL; Eosinophils% 0.3 % (0-5); Hematocrit 29.8 % (37-47); Hemoglobin 8.8 g/dL (12.0-15.0); Lymphocyte # 0.86 X10^3/ul (0.83-4.51); Lymphocyte % 11.3 % (19-41); Mean Corp Hgb Conc 29.5 g/dL (32-36); Mean Corpuscular Hgb 25.1 pg (27.0-32.0); Mean Corpuscular Volume 85.1 fL (81-99); Mean Platelet Vol. 10.5 fl (6.2-12.0); Monocyte# 0.66 X10^3/uL; Monocyte% 8.6 % (0-10); NRBC Flagged by Analyzer 0 % (0-5); Neutrophil # 6.02 X10^3/uL (2.7-7.7); Neutrophil % 78.7 % (47-70); Platelet Count 257 K/mm3 (150-450); RBC Distribution Width CV 19.2 % (11.6-14.6); RBC Distribution Width SD 59.6 fl (35.1-43.9); White Blood Count 7.6 K/mm3 (4.4-11.0)
[2024-05-06 07:57] LABS: Anion Gap 7 (5-15); BUN 4 mg/dL (7-18); Calcium,Total 8.4 mg/dL (8.5-10.1); Chloride 106 mmol/L (98-107); Creatinine, Serum 0.66 mg/dL (0.55-1.02); EST Glomerular Filtration Rate 95 mL/min (>60); Est Glom Filt Rate - Afr Amer 115 mL/min (>60); Glucose 64 mg/dL (74-106); Potassium 3.4 mmol/L (3.5-5.1); Sodium Level 141 mmol/L (136-145)
--- NOTE | 2024-05-06 10:07 | NURSING ---
Pt blood glucose [address] Baker while at the patient bedside. Pt asymptomatic no chilli, fevers, or a diabetic no new orders
[2024-05-06] MEDS: levoFLOXacin IV 750 MG in Empty Viaflex Q24 100 MG IV (10:27)
[2024-05-06] MEDS: Pantoprazole Sodium 40 MG in 0.9% Normal Saline (100mL MB+) 100 ML 330 MG IV ×2 (11:30→20:40)
--- NOTE | 2024-05-06 12:00 | IMM_PTH ---
PATIENT: TONY BRADLEY LOC: MS3 U#:[id number] AGE/SX: 68/F ROOM: [facility] [place] RE05/03/[address]: Dr. Belinda Baker DO : 1955 BED: 1 DIS: 05/10/2024 SPEC #: [id number] RECD: 05/09/24 08:17 STATUS: SOUT REQ #: [id number] KIKE: 05/06/24 12:[address]: Adi Kincaid DEPT: IMMUNOHISTOCHEMISTRY RECD BY: Manav Pisano ENTERED: 05/09/24 08:17 SP TYPE: IMMUNO OTHR DR: DO Dr. Robert Strong MD Richard Dennis Tompkins, COMM[employer]ICATION[employer] MARKETING INTERN-C Tissues: B - Gastric mucous membrane Procedures: H Pylori (initial) Comments: @ Ordering doctor for H.PYLORI edited from to @ by PAL at 05/09/24816 @ Submitting doctor edited from to @ by PAL at 05/09/24816 PHYSICIAN & [place] [id number] SPECIMEN INFORMATION: Tissue Source: B- Gastric antrum biopsy Clinical Info: Symptomatic anemia, iron deficiency anemia Specimen Number: [id number] CPT code: 55509 METHODOLOGY: Deparaffinized sections of prefer/formalin-fixed tissue or PAP/DQ stained slides are incubated with monoclonal/polyclonal antibodies/oligonucleotide probes. Localization is made via biotin free immunoperoxidase method. Appropriate controls are performed and reacted as expected. Results on target cell population are indicated in the following table: RESULTS: ANTIBODY / CLONE RESULT Block B H Pylori (polyclonal) negative These tests were developed and their performance characteristics determined by [facility]. They may not have been cleared or approved by the U.S. Food and Drug Administration. The FDA has determined that such clearance or approval is not necessary. The above immunohistochemical/dualISH markers are ordered and reviewed by the Pathologist. INTERPRETATION: B. Gastric antrum, biopsy: Negative for Helicobacter pylori organisms. GOYO/ 05/10/2024
--- NOTE | 2024-05-06 12:51 | PCM.PRE.AN2 ---
ASA Classification* ASA Classification ASA Classification: 3 and E Assessment & Plan Anesthesia* Anesthesia Assessment Anesthesia Assessment: Discussed sedation and/or anesthesia options, risks, benefits, and alternatives with patient/parents/legal guardian/POA. Questions invited. The patient/parents/legal guardian/POA seems to understand and agrees to proceed with anesthesia plan. Reviewed the physical assessment, medical history, allergy history and patient home medications list prior to surgery/procedure/anesthetic and documented any changes. Performed airway and anesthesia risk assessments. Anesthesia Type Anesthesia Type: MAC History Source History Obtained from:: Patient and Chart Pre-Assessment Diagnosis/Proposed Procedure Planned Operative Procedure(s): EGD,colonoscopy Anesthesia History Anesthesia History - supervisor mixing: Anesthesia History - supervisor mixing Hx Hospitalization No 10/05/18 13:37 Any Problems With Anesthesia No 05/04/24 21:32 Cholinesterase deficiency No 05/04/24 21:32 You/Your Family Experience No 05/04/24 21:32 fever (hyperthermia) with Relationship Recent Exposure to Contagious No 05/04/24 21:32 Disease Does patient have nerve No 05/04/24 21:32 stimulator Patient instructed to have No 05/04/24 21:32 device shut off --Does patient have Pacemaker No 05/06/24 09:00 or ICD? When Was Last Pacemaker Check QUESTION #4 FULL TEXT: You/Your Family Experience fever (hyperthermia) with Anesthesia Last Oral Intake Last Oral intake: Last Oral Intake NPO since 00:00 05/06/24 09:00 Meds taken in AM with sips of water? Meds patient instructed to take am of surgery PONV PONV - supervisor mixing: PONV - supervisor mixing Female HX of Motion Sickness HX of N/V After Surgery Non-Smoker Duration of Surgery greater than 60 minutes Number of Risk Factors PONV Score Height & Weight Height & Weight: Anesthesia: Height & Weight Height 5 ft 1 in 05/05/24 09:30 Weight: 74.6 kg 05/06/24 02:41 Body Mass Index (BMI) 31.0 05/06/24 09:00 Respiratory Assessment Respiratory Assessment - supervisor mixing: Respiratory Tract Infection Hx - supervisor mixing Hx Respiratory Tract Infection No 05/04/24 21:32 STOP Sleep Apnea STOP Sleep Apnea - supervisor mixing: STOP Sleep Apnea - supervisor mixing Hx Hypertension No 05/04/24 12:17 Hx Sleep Apnea No 05/03/24 16:24 CPAP No 01/21/24 11:15 BIPAP No 01/08/24 18:47 Do you snore loudly (louder No 05/03/24 16:24 than talking or can be heard Do you often feel tired/ No 05/03/24 16:24 fatigued/ sleepy during daytime? Has anyone observed you stop No 05/03/24 16:24 breathing during sleep? STOP Results Negative 05/03/24 16:24 QUESTION #5 FULL TEXT : Do you snore loudly (louder than talking or can be heard through closed doors)? Tobacco Use History Tobacco Use History - supervisor mixing: Tobacco Use History - supervisor mixing Tobacco Use Smoking Status Light Smoker (<10/day) 05/05/24 10:27 Hx Tobacco Use Yes 05/03/24 16:24 Years Smoking Packs Smoked per Day Smoking Cessation Date was within the last 15 years Hx Smoking Cessation Date 05/03/24 16:24 Hx Smoking Cessation Counseling Hematologic Medial History Hematologic Hx - supervisor mixing: Hematologic Medical Hx - instructor looping Hx of Blood Transfusion Yes 05/03/24 16:24 Hx of Transfusion in last 3 Yes 05/03/24 16:24 Months Date of Last Transfusion (if 05/03/2024 05/03/24 16:24 within last 3 months) Ever experience any problems No 05/03/24 16:24 with transfusion(s)? Specify any problems Hx of Preganancy in last 3 No 05/03/24 16:24 Months Nurse Filling Out Transfusion LMORROW 05/03/24 16:24 & Questions: Date: 05/03/24 05/03/24 16:24 Time: 16:26 05/03/24 16:24 Patient unable to answer at this time (ie. confused, unrespo /Reproduction History /Reproductive History - supervisor mixing: /Reproductive Hx- supervisor mixing Hx Now No 05/04/24 21:32 Gestational Age (in weeks): EDC: Hx Hx Para Hx Section SAB No 05/04/24 21:32 Active Medications Active Medications: Current Medications Generic Name Dose Route Start Last Admin Trade Name Freq PRN Reason Stop Dose Admin Acetaminophen 650 mg 05/03/24 15:52 05/05/24 18:20 Acetaminophen 325 Mg Tablet PO 650 mg Q6H PRN PRN Administration Pain 1-10 Or Fever >100.7 Albuterol Sulfate 2.5 mg 05/03/24 15:58 05/03/24 23:50 Albuterol 2.5 Mg/3 Ml Vial.Neb. INHALATION 2.5 mg Q4H PRN Administration shortness of breath or wheezing Albuterol/Ipratropium 3 ml 05/04/24 13:49 05/05/24 19:33 Ipratropium/Albuterol Sulfate 3 Ml Ampul.Neb INHALATION 3 ml Q4HWA.RT ERNST Administration Atorvastatin Calcium 20 mg 05/04/24 22:00 05/05/24 20:51 Atorvastatin Calcium 20 Mg Tablet PO 20 mg QHS ERNST Administration Benzonatate 100 mg 05/05/24 13:47 Benzonatate 100 Mg Capsule PO TID PRN PRN COUGH/CONGESTION Budesonide 0.5 mg 05/03/24 16:00 05/05/24 19:34 Budesonide Respules 0.5 Mg/2 Ml Ampul.Neb. INHALATION 0.5 mg Q12H.RT ERNST Administration Ergocalciferol 1.25 mg 05/05/24 10:00 05/05/24 10:50 Ergocalciferol 1.25 Mg (50, 000 Unit) Capsule PO 1.25 mg Th@1000 ERNST Administration Guaifenesin 1,200 mg 05/05/24 22:00 05/06/24 10:26 Guaifenesin 1,200 Mg Tablet PO Not Given BID ERNST Hydralazine HCl 10 mg 05/04/24 07:41 Hydralazine 20 Mg/Ml Vial IV Q6H PRN PRN SBP>160 Protocol Pantoprazole Sodium 40 mg/ 110 mls @ 330 mls/hr 05/03/24 15:52 05/06/24 11:50 Sodium Chloride IV Infused Q12 ERNST Infusion Sodium Chloride 500 mls @ 15 mls/hr 05/03/24 16:21 IV PRN PRN Blood Transfusion Sodium Chloride 250 mls @ 15 mls/hr 05/03/24 16:21 IV .[id number] PRN Additional IVPB Infusion Sodium Chloride 250 mls @ 15 mls/hr 05/03/24 16:21 IV .[id number] PRN Saline Flush Levofloxacin 750 mg/ N/A 150 mls @ 100 mls/hr 05/06/24 08:15 05/06/24 11:57 IV Infused Q24 ERNST Infusion Metoclopramide HCl 10 mg 05/05/24 00:00 05/06/24 12:40 Metoclopramide 10 Mg/2 Ml Vial IV 10 mg Q6 ERNST Administration Ondansetron HCl 4 mg 05/03/24 15:52 Ondansetron 4 Mg/2 Ml Vial IV Q8H PRN PRN NAUSEA/VOMITING Senna/Docusate Sodium 2 tablet 05/03/24 15:52 Senna/Docusate Sodium 1 Tablet PO BID PRN Constipation Sodium Chloride 10 - 40 ml 05/03/24 16:21 05/05/24 13:22 0.9% Saline Lock 10 Ml Syringe IV 10 ml UD PRN Administration SALINE FLUSH Anesthesia Focused Assessment* Temperature: 99.5 F Pulse Rate: 108 Blood Pressure: 125/66 Respiratory Rate: 20 Pulse Ox: 96 Oxygen Flow Rate (L/min): 2 Airway Assessment Mouth opens: >3 cm Mallampati Score: II Teeth Condition: Dentures (out) Neck Range of motion (ROM): Full ROM Focused Labs Anesthesia Preop lab: CBC WBC 7.6 K/mm3 (4.4-11.0) 05/06/24 06:36 RBC 3.50 M/mm3 (4.2-5.4) L 05/06/24 06:36 Hgb 8.8 g/dL (12.0-15.0) L 05/06/24 06:36 Hct 29.8 % (37-47) L 05/06/24 06:36 Plt Count 257 K/mm3 (150-450) 05/06/24 06:36 CHEMISTRY Potassium 3.4 mmol/L (3.5-5.1) L 05/06/24 06:36 Sodium 141 mmol/L (136-145) 05/06/24 06:36 Magnesium 1.7 mg/dL (1.6-2.6) 05/05/24 05:35 Phosphorus 4.1 mg/dL (2.5-4.9) 05/05/24 05:35 BUN 4 mg/dL (7-18) L 05/06/24 06:36 Creatinine 0.66 mg/dL (0.55-1.02) 05/06/24 06:36 Glucose 64 mg/dL (74-106) L 05/06/24 06:36 TSH 1.68 uIU/mL (0.358-3.74) 05/04/24 06:10 COAG PT 15.9 SECONDS (11.7-14.9) H 05/05/24 05:35 Review of Systems (Anesthesia) ROS Narrative System reviewed and no additional complaints, except as documented. [facility] Medical History Atherosclerosis of [place] arteries of extremities with gangrene, left leg Carotid stenosis, bilateral Tobacco abuse Peripheral arterial occlusive disease Cervical cancer PVD (peripheral vascular disease) Arthritis Home Medications ?Medication ?Instructions ?Recorded ?Last Taken ?Type acetaminophen 650 mg 650 mg PO Q6H PRN Pain 06/25/18 Unknown History tablet,extended release (Tylenol Arthritis Pain) albuterol sulfate 90 mcg/actuation 2 puff inhalation Q6H PRN 01/08/24 Unknown History aerosol inhaler shortness of breath or wheezing amlodipine 5 mg tablet 5 mg PO DAILY 01/08/24 05/03/24 History aspirin 81 mg tablet,delayed 81 mg PO DAILY 01/08/24 05/03/24 History release budesonide-formoterol HFA 160 2 puff inhalation BID 01/08/24 Unknown History mcg-4.5 mcg/actuation aerosol inhaler rosuvastatin 10 mg tablet 10 mg PO DAILY 01/08/24 05/03/24 History rivaroxaban 2.5 mg tablet (Xarelto) 2.5 mg PO BID #60 tabs 01/22/24 05/03/24 Rx cilostazol 50 mg tablet 50 mg PO BID #60 tabs 02/11/24 05/03/24 Rx clopidogrel 75 mg tablet (Plavix) 75 mg PO DAILY #30 tabs 02/11/24 05/03/24 Rx cholecalciferol (vitamin D3) 1,250 1,250 mcg PO TH 05/03/24 Unknown History mcg (50,000 unit) capsule Allergy/AdvReac Type Severity Reaction Status Date / Time No Known Allergies Allergy Verified 05/03/24 13:41 Family History Mother Breast cancer Surgical History S/P LEFT ARTERIOGRAM Social History Smoking Status: Light Smoker (<10/day) alcohol intake: never substance use type: does not use
[2024-05-06] MEDS: Lactated Ringers 1,000 ML 15 ML IV (12:55)
--- NOTE | 2024-05-06 13:52 | OP.EGD_ITS ---
Patient Name: Brenda Macedo Procedure Date: 05/06/2024 12:57 PM Date of : 1955 Age: 68 Procedure: Upper GI endoscopy Indications: Iron deficiency anemia Providers: Adi Kincaid DO Medicines: Monitored Anesthesia Care Patient Profile: This is a 68 year old female. Refer to note in patient chart for documentation of history and physical. Patient has symptoms of acute cough, acute dysphagia and acute nausea. Complications: No immediate complications. Procedure: Pre-Anesthesia Assessment: - Prior to the procedure, a History and Physical was performed, and patient medications and allergies were reviewed. The patient is competent. The risks and benefits of the procedure and the sedation options and risks were discussed with the patient. All questions were answered and informed consent was obtained. Patient identification and proposed procedure were verified by the physician. Mental Status Examination: alert and oriented. Airway Examination: normal oropharyngeal airway and neck mobility. Respiratory Examination: clear to auscultation. CV Examination: normal. Prophylactic Antibiotics: The patient does not require prophylactic antibiotics. Prior Anticoagulants: The patient has taken no anticoagulant or antiplatelet agents. After reviewing the risks and benefits, the patient was deemed in satisfactory condition to undergo the procedure. The anesthesia plan was to use monitored anesthesia care (MAC). Immediately prior to administration of medications, the patient was re-assessed for adequacy to receive sedatives. The heart rate, respiratory rate, oxygen saturations, blood pressure, adequacy of pulmonary ventilation, and response to care were monitored throughout the procedure. The physical status of the patient was re-assessed after the procedure. After obtaining informed consent, the endoscope was passed under direct vision. Throughout the procedure, the patient's blood pressure, pulse, and oxygen saturations were monitored continuously. The Colonoscope was introduced through the mouth, and advanced to the second part of duodenum. The upper GI endoscopy was accomplished without difficulty. The patient tolerated the procedure well. Scope In: 1:15:44 PM Scope Out: 1:21:20 PM Total Procedure Duration Time 0 hours 5 minutes 36 seconds Findings: Grade I varices were found in the upper third of the esophagus. They were 5 mm in largest diameter. Two 5 mm angiodysplastic lesions with bleeding were found in the gastric body. Coagulation for hemostasis using heater probe was successful. Estimated blood loss was minimal. Localized mildly erythematous mucosa without bleeding was found in the gastric antrum. Biopsies were taken with a cold forceps for histology. Verification of patient identification for the specimen was done. Biopsies were taken with a cold forceps for Helicobacter pylori testing. Verification of patient identification for the specimen was done. Estimated blood loss was minimal. Patchy mildly erythematous mucosa without active bleeding and with no stigmata of bleeding was found in the duodenal bulb. Biopsies were taken with a cold forceps for histology. Verification of patient identification for the specimen was done. Estimated blood loss was minimal. A small hiatal hernia was present. Impression: - Grade I esophageal varices. - Two bleeding angiodysplastic lesions in the stomach. Treated with a heater probe. - Erythematous mucosa in the antrum. Biopsied. - Erythematous duodenopathy. Biopsied. Recommendation: - [facility]. - Resume regular diet. - Continue present medications. - Await pathology results. - Repeat upper endoscopy. Procedure Code(s): --- Professional --- 43061, 59, Esophagogastroduodenoscopy, flexible, transoral; with control of bleeding, any method 92860, 51, Esophagogastroduodenoscopy, flexible, transoral; with biopsy, single or multiple CPT copyright 2021 [employer]. All rights reserved. The codes documented in this report are preliminary and upon physician coder review may be revised to meet current compliance requirements. Adi Kincaid DO 05/06/2024 1:52:24 PM This report has been signed electronically. Number of Addenda: 0 Note Initiated On: 05/06/2024 12:57 PM
--- NOTE | 2024-05-06 13:53 | OP.CCLET_ITS ---
05/06/2024 Vincent Ashley Re : Upper GI endoscopy procedure for Brenda Macedo Dear Dion This procedure was performed on Monday, May 06, 2024. My impressions and recommendations are as follows: Impressions : - Grade I esophageal varices. - Two bleeding angiodysplastic lesions in the stomach. Treated with a heater probe. - Erythematous mucosa in the antrum. Biopsied. - Erythematous duodenopathy. Biopsied. Recommendations : - [facility]. - Resume regular diet. - Continue present medications. - Await pathology results. - Repeat upper endoscopy. My findings are described in the full procedure note, which is enclosed. If I can be of further assistance, please feel free to contact me at . Sincerely, Adi Kincaid, 05/06/2024 1:52:24 PM This report has been signed electronically.
--- NOTE | 2024-05-06 13:53 | PCM.POST.ANE ---
Anesthesia: Postop Eval I Current Vital Signs Temperature: 100.2 F Pulse Rate: 113 Blood Pressure: 102/50 Respiratory Rate: 22 Pulse Ox: 97 Oxygen Delivery Method: Simple Mask Oxygen Flow Rate (L/min): 4 Assessment Airway patent: Yes Spontaneous unlabored respirations: Yes Mental status: Awake and Calm nausea: No Vomiting: No Anesthesia Complication: Yes Anesthesia Complication Comment:: O2 desat d/t anemia, COPD and MAYNOR Fluid Hydration Crystalloid volume administer (ml): 600 Total IV fluid infused: 600 Progress Note Anesthesia document: Postop Eval 1 completed: Yes
--- NOTE | 2024-05-06 13:56 | OP.COLON_ITS ---
Patient Name: Brenda Macedo Procedure Date: 05/06/2024 1:21 PM Date of : 1955 Age: 68 Procedure: Colonoscopy Indications: Iron deficiency anemia Providers: Adi Kincaid DO Medicines: Monitored Anesthesia Care Patient Profile: This is a 68 year old female. Refer to note in patient chart for documentation of history and physical. Patient has symptoms of acute cough, acute dysphagia and acute nausea. Last Colonoscopy: none. The patient's first colonoscopy is today. Complications: No immediate complications. Procedure: Pre-Anesthesia Assessment: - Prior to the procedure, a History and Physical was performed, and patient medications and allergies were reviewed. The patient is competent. The risks and benefits of the procedure and the sedation options and risks were discussed with the patient. All questions were answered and informed consent was obtained. Patient identification and proposed procedure were verified by the physician. Mental Status Examination: alert and oriented. Airway Examination: normal oropharyngeal airway and neck mobility. Respiratory Examination: clear to auscultation. CV Examination: normal. Prophylactic Antibiotics: The patient does not require prophylactic antibiotics. Prior Anticoagulants: The patient has taken no anticoagulant or antiplatelet agents. After reviewing the risks and benefits, the patient was deemed in satisfactory condition to undergo the procedure. The anesthesia plan was to use monitored anesthesia care (MAC). Immediately prior to administration of medications, the patient was re-assessed for adequacy to receive sedatives. The heart rate, respiratory rate, oxygen saturations, blood pressure, adequacy of pulmonary ventilation, and response to care were monitored throughout the procedure. The physical status of the patient was re-assessed after the procedure. After I obtained informed consent, the scope was passed under direct vision. Throughout the procedure, the patient's blood pressure, pulse, and oxygen saturations were monitored continuously. The Colonoscope was introduced through the anus and advanced to the terminal ileum. The colonoscopy was performed without difficulty. The patient tolerated the procedure well. The quality of the bowel preparation was fair. The terminal ileum, ileocecal valve, appendiceal orifice, and rectum were photographed. Scope In: 1:26:12 PM Scope Withdrawal Time 0 hours 10 minutes 7 seconds Scope Out: 1:44:48 PM Total Procedure Duration Time 0 hours 18 minutes 36 seconds Findings: The perianal and digital rectal examinations were normal. Three medium-sized localized angiodysplastic lesions with bleeding were found in the recto-sigmoid colon and in the sigmoid colon. Coagulation for hemostasis using heater probe was successful. Estimated blood loss was minimal. A few small-mouthed diverticula were found in the recto-sigmoid colon and sigmoid colon. Stool was found in the sigmoid colon, in the transverse colon and in the ascending colon. Patchy moderate inflammation characterized by erythema, friability and granularity was found in the sigmoid colon, in the ascending colon and in the cecum. Biopsies were taken with a cold forceps for histology. Verification of patient identification for the specimen was done. Estimated blood loss was minimal. The terminal ileum contained a benign-appearing, intrinsic moderate stenosis that was non-traversed. Biopsies were taken with a cold forceps for histology. Verification of patient identification for the specimen was done. Estimated blood loss was minimal. Impression: - Preparation of the colon was fair. - Three bleeding colonic angiodysplastic lesions. Treated with a heater probe. - Diverticulosis in the recto-sigmoid colon and in the sigmoid colon. - Stool in the sigmoid colon, in the transverse colon and in the ascending colon. - Patchy moderate inflammation was found in the sigmoid colon, in the ascending colon and in the cecum secondary to colitis. Biopsied. - Stricture in the terminal ileum. Biopsied. Recommendation: - [facility]. - Resume regular diet. - Continue present medications. - Await pathology results. - Repeat colonoscopy in 5 years for surveillance based on pathology results. Procedure Code(s): --- Professional --- 31589, 59, Colonoscopy, flexible; with control of bleeding, any method 57505, Colonoscopy, flexible; with biopsy, single or multiple CPT copyright 2021 [employer]. All rights reserved. The codes documented in this report are preliminary and upon irish moss bleacher review may be revised to meet current compliance requirements. Adi Kincaid DO 05/06/2024 1:56:14 PM This report has been signed electronically. Number of Addenda: 0 Note Initiated On: 05/06/2024 1:21 PM
--- NOTE | 2024-05-06 13:56 | OP.CCLET_ITS ---
05/06/2024 Vincent Ashley Re : Colonoscopy procedure for Brenda Macedo Dear Dion This procedure was performed on Monday, May 06, 2024. My impressions and recommendations are as follows: Impressions : - Preparation of the colon was fair. - Three bleeding colonic angiodysplastic lesions. Treated with a heater probe. - Diverticulosis in the recto-sigmoid colon and in the sigmoid colon. - Stool in the sigmoid colon, in the transverse colon and in the ascending colon. - Patchy moderate inflammation was found in the sigmoid colon, in the ascending colon and in the cecum secondary to colitis. Biopsied. - Stricture in the terminal ileum. Biopsied. Recommendations : - [facility]. - Resume regular diet. - Continue present medications. - Await pathology results. - Repeat colonoscopy in 5 years for surveillance based on pathology results. My findings are described in the full procedure note, which is enclosed. If I can be of further assistance, please feel free to contact me at . Sincerely, Adi Kincaid, 05/06/2024 1:56:14 PM This report has been signed electronically.
[2024-05-06] MEDS: Albuterol 2.5 MG/3 ML VIAL.NEB. INHALATION (14:09)
--- NOTE | 2024-05-06 14:25 | PCM.PN.HOSP ---
Reason for Visit Reason for Visit: Low outpatient hemoglobin Subjective Subjective Patient states she feels like her cough is a bit better. Denies any issues overnight. Anxious to get her EGD/colonoscopy done today. Objective Data Objective Data Vital Signs: Vital Signs Temp Pulse Resp BP Pulse Ox O2 Del Method O2 Flow Rate 100.2 F H 113 H 22 H 102/50 L 97 Simple Mask 4 05/06/24 14:00 05/06/24 14:00 05/06/24 14:00 05/06/24 14:00 05/06/24 14:00 05/06/24 14:00 05/06/24 14:00 Oxygen Flow Rate (L/min) 4 Oxygen Delivery Method Simple Mask Weight: 74.6 kg Body Mass Index (BMI) 31.0 Intake & Output: Intake and Output for Last 24 Hours 05/04/24 05/05/24 05/06/24 23:59 23:59 23:59 Intake Total 2215.33 / 5215.33 3765 / 4065 894 / 894 Output Total 2200 / 2200 1600 / 2050 950 / 950 Balance 15.33 / 3015.33 2164 / 2014 -56 / -56 Lab / Micro Data 05/06/24 06:36 05/06/24 06:36 Labs: Laboratory Results - last 24 hr 05/06/24 06:36: WBC 7.6, RBC 3.50 L, Hgb 8.8 L, Hct 29.8 L, MCV 85.1, MCH 25.1 L, MCHC 29.5 L, RDW Std Deviation 59.6 H, RDW Coeff of Alfie 19.2 H, Plt Count 257, MPV 10.5, Immature Gran % (Auto) 0.700, Neut % (Auto) 78.7 H, Lymph % (Auto) 11.3 L, [place] % (Auto) 8.6, Eos % (Auto) 0.3, Baso % (Auto) 0.4, Absolute Neuts (auto) 6.0, Absolute Lymphs (auto) 0.86, Nucleated RBC % 0, Sodium 141, Potassium 3.4 L, Chloride 106, Carbon Dioxide 28.0, Anion Gap 7, BUN 4 L, Creatinine 0.66, Estim Creat Clear Calc 63.90, Est GFR (MDRD) Af Amer 115, Est GFR (MDRD) Non-Af 95, BUN/Creatinine Ratio 6.0 L, Glucose 64 L, Calcium 8.4 L Micro: Microbiology 05/05/24 15:20 Urine, Random Legionella Antigen - Final 05/05/24 15:20 Urine, Random Streptococcus pneumoniae Antigen (M - Final 05/05/24 10:34 Mucosa - Nose Coronavirus COVID-19 PCR - Final 05/05/24 10:34 Mucosa - Nose Respiratory Panel (PCR) - Final 05/04/24 22:50 Stool Stool Occult Blood (MARTHA) - Final Occult Blood Positive Rhythm Strip Rhythm Strip: Sinus Tach Rate: 141 Ectopy: None Physical Exam Const alert, oriented x3, no apparent distress and well nourished; Negative for average body habitus or healthy appearing Constitutional Narrative: Obese, upper middle-aged, white female, sitting in bed, appears older than stated age, appears comfortable, appears comfortable, nontoxic, nursing at bedside and trying to get another IV in place HEENT head/scalp atraumatic and moist oral mucous membranes HEENT Narrative: Large tongue, Mallampati is 3, no thrush Head and Scalp: normocephalic Eyes PERRL and EOMs intact bilaterally Eyes Narrative: Marked conjunctival pallor bilaterally, no scleral icterus Neck no lymphadenopathy and supple Neck Narrative: Trachea midline, no thyroid enlargement Resp normal respiratory effort, no retractions, no use of accessory muscles and No clear to auscultation bilaterally Resp Narrative: Improved aeration but remains diminished diffusely Auscultation: Negative for rales, rhonchi or wheezes Cardio regular rate, regular rhythm, S1 normal heart sound, S2 normal heart sound, no murmurs, no rub, no gallops and no clicks GI normal to inspection, nondistended, normoactive bowel sounds, soft to palpation and non-tender Extremity no clubbing, cyanosis or edema Skin no wounds, skin turgor normal, no jaundice, no petechiae and no mottling Skin Narrative: Skin is pale Neuro oriented x3, moves all extremities and no focal motor deficits Speech: speech normal Psych affect normal Psych Narrative: Eye contact is good and patient interacts appropriately Assessment & Plan Assessment/Plan (1) Acidosis, lactic: (2) Symptomatic anemia: (3) S/P femoral-femoral bypass surgery: (4) Iron (Fe) deficiency anemia: (5) Hypoxia: (6) Fever: PLAN: Plan Acute on chronic iron deficiency anemia -It appears her hemoglobin has slowly been trending down however baseline most recently has been between 9 and 10. -3.5 on admission -Transfused 4 units packed red blood cells--> follow-up hemoglobin has been stable and currently 8.2 this morning after transfusion -Stool guaiac was occult positive -Highly suspect GI loss probable lower versus upper given normal BUN/creatinine ratio -Continue Protonix 40 twice daily -Hold cilostazol -Hold Plavix -Hold rivaroxaban -Hold aspirin -Iron studies are consistent with marked iron deficiency anemia -EGD and colonoscopy today now that her respiratory status is bit more optimized -Restart anticoagulation once okay with GI Acute hypoxia with fever -Will give 1 more dose of Lasix today 40 mg -Tmax in last 24 hours is 101.6 last evening at 1820 -Continue to monitor fever curve -Repeat chest XR in a.m. -Blood cultures are pending -Not been able to produce a sputum culture as of yet but culture was ordered -UA is not consistent with infection -Respiratory viral panel is unremarkable -COVID-negative -Strep pneumo and Legionella antigens are negative -Highly suspect right lower lobe pneumonia as there appears to be a consolidation on her chest x-ray -Repeat chest x-ray in a.m. -Transition from Unasyn to Levaquin with ongoing fevers -Patient interestingly does not have a leukocytosis but does have a left shift -BNP was slightly elevated and limited echocardiogram was done and shows stable EF at 60% with no changes from previous echocardiogram 3 months ago Peripheral vascular disease -Status post right to left femorofemoral bypass on 01/21/2024 which was performed secondary to 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 -Claudication symptoms had resolved -Will have to hold cilostazol, Plavix, aspirin, and rivaroxaban for now given the above -Plan from vascular surgery is to continue this until 6 months postoperatively and then consider changing rivaroxaban to 2.5 mg daily with a single antiplatelet agent -Patient also 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 due to peripheral vascular disease Hypokalemia -Likely related to diuretics -Will give 40 mill equivalents p.o. potassium next-recheck in a.m. Hyperlipidemia -Continue home statin Hypertension -Hold home amlodipine given marked anemia on presentation -hydralazine for systolic pressure greater than 160 Vitamin D deficiency -Continue home ergocalciferol 1.25 mg every Bilateral carotid artery stenosis -Antiplatelet therapy and anticoagulation on hold -Continue outpatient follow-up with vascular surgery COPD -Continue home inhalers -As needed albuterol Tobacco abuse -Highly recommend cessation Obesity -BMI 31.1 -Complicates treatment, prognosis, outcomes -Recommend weight loss DVT prophylaxis -SCDs only -Chemoprophylaxis held due to suspected GI bleed with severe iron deficiency anemia CODE STATUS -Full code as verified at the time of admission Charges/Coding Visit Charges Inpatient E&M: 42736 [facility] L3
--- NOTE | 2024-05-06 15:21 | CASEMGMT ---
Green sheet on chart in case pt dc'd over the weekend and needs increase in oxygen rx. Pt does not have portability.
--- NOTE | 2024-05-06 15:31 | PCM.POSTANE2 ---
Anesthesia Postop Eval I Sum Postop Eval Completion status Anesthesia document: Postop Eval 1 completed: Yes Anesthesia Postop Eval I Summary Anesthesia Postop Eval I Summary: Anesthesia Postop Eval I: Assessment Summary Airway patent Yes 05/06/24 14:00 [email or web address] Spontaneous unlabored Yes 05/06/24 14:00 [email or web address] respirations Mental status Awake,Calm 05/06/24 14:00 [email or web address] nausea No 05/06/24 14:00 [email or web address] Vomiting No 05/06/24 14:00 [email or web address] Anesthesia Postop Eval I: Fluid Summary Crystalloid volume administer 600 05/06/24 14:00 [email or web address] (ml) Colloids volume administered ( ml) Blood Product volume administered (ml) Total IV fluid infused 600 05/06/24 14:00 [email or web address] Anesthesia Postop Eval I: Summary Notes Anesthesia Complication Yes 05/06/24 14:00 [email or web address] Anesthesia Complication O2 desat d/t 05/06/24 14:00 [email or web address] Comment: anemia, COPD and MAYNOR Post-operative progress note Anesthesia: Postop Eval II Evaluation Mental status: Awake and Calm Pain Level: 0 nausea: No Vomiting: No Progress Note Post-operative progress note: Patient's oxygen saturations improved after breathing treatment. The patient coughed up significant amount of phlegm with resultant improvement in breathing. Complications Anesthesia Complication: No
--- NOTE | 2024-05-06 17:10 | PN.GI_ITS ---
Subjective Subjective Patient underwent an upper and lower endoscopy today. She did have multiple AVMs that were seen in her upper and lower GI tract. These were treated with cautery. She does not have any abdominal pain, nausea or any signs of bleeding after the procedure. Objective Data Objective Data Vital Signs: Vital Signs Temp Pulse Resp BP Pulse Ox O2 Del Method O2 Flow Rate 98.4 F 110 H 20 H 102/56 L 94 Simple Mask 3 05/06/24 14:30 05/06/24 14:30 05/06/24 14:30 05/06/24 14:30 05/06/24 14:30 05/06/24 14:30 05/06/24 14:30 Oxygen Flow Rate (L/min) 3 Oxygen Delivery Method Simple Mask Weight: 164 lb 7.437 oz Body Mass Index (BMI) 31.0 Intake & Output: Intake and Output for Last 24 Hours 05/04/24 05/05/24 05/06/24 23:59 23:59 23:59 Intake Total 2215.33 / 5215.33 3765 / 4065 956.5 / 956.5 Output Total 2200 / 2200 1600 / 2050 950 / 950 Balance 15.33 / 3015.33 2164 / 2015 6.5 / 6.5 Lab / Micro Data 05/06/24 06:36 05/06/24 06:36 Labs: Laboratory Results - last 24 hr 05/06/24 06:36: WBC 7.6, RBC 3.50 L, Hgb 8.8 L, Hct 29.8 L, MCV 85.1, MCH 25.1 L , MCHC 29.5 L, RDW Std Deviation 59.6 H, RDW Coeff of Alfie 19.2 H, Plt Count 257, MPV 10.5, Immature Gran % (Auto) 0.700, Neut % (Auto) 78.7 H, Lymph % (Auto) 11.3 L, [place] % (Auto) 8.6, Eos % (Auto) 0.3, Baso % (Auto) 0.4, Absolute Neuts (auto) 6.0, Absolute Lymphs (auto) 0.86, Nucleated RBC % 0, Sodium 141, P otassium 3.4 L, Chloride 106, Carbon Dioxide 28.0, Anion Gap 7, BUN 4 L, Creatinine 0.66, Estim Creat Clear Calc 63.90, Est GFR (MDRD) Af Amer 115, Est GFR (MDRD) Non-Af 95, BUN/Creatinine Ratio 6.0 L, Glucose 64 L, Calcium 8.4 L Micro: Microbiology 05/05/24 15:20 Urine, Random Legionella Antigen - Final 05/05/24 15:20 Urine, Random Streptococcus pneumoniae Antigen (M - Final 05/05/24 10:34 Mucosa - Nose Coronavirus COVID-19 PCR - Final 05/05/24 10:34 Mucosa - Nose Respiratory Panel (PCR) - Final 05/04/24 22:50 Stool Stool Occult Blood (MARTHA) - Final Occult Blood Positive Rhythm Strip Rhythm Strip: Sinus Tach Rate: 141 Ectopy: None Physical Exam Narrative General: Alert, Oriented x3, Cooperative HEENT: Atraumatic, PERRLA, EOMI, Normocephalic. Pale conjunctiva Oral: Oral mucosa moist. No Gingival or Mucosal Lesions/ Ulcerations Neck: Supple, No JVD, Negative Carotid Bruits Chest wall/Lungs: Air entry diminished in bilateral lung bases. No crepitation/rhonchi Cardiovascular: Sinus tachycardia, systolic murmur present over LLSB. Regular rhythm Abdomen: Bowel Sounds Present, Soft, Non Tender, Non-Distended : No dysuria. No renal angle tenderness. No suprapubic tenderness. Extremities: mild bilateral pitting leg edema, Capillary Refill Less than 3 Seconds Skin: No rashes, No breakdown Musculoskeletal: No Tenderness to Palpation of Joints or Extremities Neurological: Cranial nerves II-XII grossly intact, DTR 2+/4. No acute focal neurological deficit. Psych/Mental Status: Flat affect Assessment & Plan Assessment/Plan (1) Colitis: (2) AVM (arteriovenous malformation): (3) Symptomatic anemia: (4) Iron (Fe) deficiency anemia: PLAN: Plan This 68-year-old female is being admitted for severe anemia, hemoglobin 3.5 on an outpatient lab. Acute severe symptomatic anemia: Patient last H&H 9.7/31% in January 2024. However back in October her hemoglobin was 12.4. Today her hemoglobin and hematocrit is 3.5/13.7%. Platelet count. 569,000. White count normal. Twelve-lead EKG shows sinus tachycardia 121 bpm, QTc 443 ms. Differential diagnosis for acute blood loss anemia would be peptic ulcer disease, gastric antral vascular ectasia, angiodysplasia, neoplasia, celiac disease. Acute on chronic iron deficiency anemia: Iron profile shows serum iron 10, TIBC elevated 497, iron saturation 2.1%. Ferritin 2, consistent with iron deficiency anemia. Stool for occult blood ordered. Empirically started on pantoprazole 40 mg q. 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 Patient had office visit on 03/21/2024 and found well-healed incision site. Patient on aspirin 81 mg daily, Plavix 75 mg daily and Xarelto 2.5 mg twice daily. Outpatient office plan was to continue for 6 months and then Xarelto 2.5 mg with single antiplatelet agent. Continue to hold all 3 antiplatelet/anticoagulant agent unless vascular surgery says to continue medicines. She will undergo EGD and colonoscopy. She has not had a colonoscopy in the past. She was explained alternatives, risk, benefits including not withstanding bleeding, infection, sepsis, perforation, need for emergent surgery and . She will have an ASA of 3. 05/05/2024-the plan is to perform her EGD and colonoscopy tomorrow unless primary service wants to hold off. Continue to hold anticoagulation and antiplatelet therapy. 05/06/2024-upper endoscopy findings: Grade I varices were found in the upper third of the esophagus. They were 5 mm in largest diameter. Two 5 mm angiodysplastic lesions with bleeding were found in the gastric body. Coagulation for hemostasis using heater probe was successful. Estimated blood loss was minimal. Localized mildly erythematous mucosa without bleeding was found in the gastric antrum. Biopsies were taken with a cold forceps for histology. Verification of patient identification for the specimen was done. Biopsies were taken with a cold forceps for Helicobacter pylori testing. Verification of patient identification for the specimen was done. Estimated blood loss was minimal. Patchy mildly erythematous mucosa without active bleeding and with no stigmata of bleeding was found in the duodenal bulb. Biopsies were taken with a cold forceps for histology. Verification of patient identification for the specimen was done. Estimated blood loss was minimal. A small hiatal hernia was present. Impression: - Grade I esophageal varices. - Two bleeding angiodysplastic lesions in the stomach. Treated with a heater probe. - Erythematous mucosa in the antrum. Biopsied. - Erythematous duodenopathy. Biopsied. Recommendation: - [facility]. - Resume regular diet. - Continue present medications. - Await pathology results. - Repeat upper endoscopy. - Her upper esophageal varices are not associated with liver disease. They are associated with respiratory disease. Colonoscopy findings: The perianal and digital rectal examinations were normal. Three medium-sized localized angiodysplastic lesions with bleeding were found in the recto-sigmoid colon and in the sigmoid colon. Coagulation for hemostasis using heater probe was successful. Estimated blood loss was minimal. A few small-mouthed diverticula were found in the recto-sigmoid colon and sigmoid colon. Stool was found in the sigmoid colon, in the transverse colon and in the ascending colon. Patchy moderate inflammation characterized by erythema, friability and granularity was found in the sigmoid colon, in the ascending colon and in the cecum. Biopsies were taken with a cold forceps for histology. Verification of patient identification for the specimen was done. Estimated blood loss was minimal. The terminal ileum contained a benign-appearing, intrinsic moderate stenosis that was non-traversed. Biopsies were taken with a cold forceps for histology. Verification of patient identification for the specimen was done. Estimated blood loss was minimal. Impression: - Preparation of the colon was fair. - Three bleeding colonic angiodysplastic lesions. Treated with a heater probe. - Diverticulosis in the recto-sigmoid colon and in the sigmoid colon. - Stool in the sigmoid colon, in the transverse colon and in the ascending colon. - Patchy moderate inflammation was found in the sigmoid colon, in the ascending colon and in the cecum secondary to colitis. Biopsied. - Stricture in the terminal ileum. Biopsied. Recommendation: - [facility]. - Resume regular diet. - Continue present medications. - Await pathology results. - Repeat colonoscopy in 5 years for surveillance based on pathology results. Check blood work for inflammatory bowel disease. Since she had so many angiodysplastic lesions she will need a capsule endoscopy. Charges/Coding Visit Charges Inpatient E&M: 85090 [facility] L3
[2024-05-06] MEDS: Acetaminophen 325 MG Tablet 650 MG PO (19:02)
[2024-05-06] MEDS: 0.9% Normal Saline (1000mL) 1,000 ML 200 ML IV (20:06)
[2024-05-06] MEDS: 0.9% Saline Lock 10 ML Syringe IV ×2 (20:13→23:13)
[2024-05-06] MEDS: Atorvastatin Calcium 20 MG Tablet PO (20:33)
[2024-05-06] MEDS: Vancomycin HCl 1,250 MG in 0.9% Normal Saline (250mL Bag) 250 ML 167 MG IV (21:49)
[2024-05-06 22:08] LABS: M R Staph aureus DNA By PCR Negative (Negative); Probe Check PASS; Specimen Processing Control PASS
--- NOTE | 2024-05-06 22:20 | PCM.RX.CS ---
Consult Antibiotic Management Pharmacy has been consulted to manage selected antibiotic: Vancomycin Type of Intervention Type of Consult: New start Labs Labs: Sodium 141 mmol/L (136-145) 05/06/24 06:36 Potassium 3.4 mmol/L (3.5-5.1) L 05/06/24 06:36 Chloride 106 mmol/L (98-107) 05/06/24 06:36 Carbon Dioxide 28.0 mmol/L (21.0-32.0) 05/06/24 06:36 Anion Gap 7 (5-15) 05/06/24 06:36 BUN 4 mg/dL (7-18) L 05/06/24 06:36 Creatinine 0.66 mg/dL (0.55-1.02) 05/06/24 06:36 Est GFR (MDRD) Af Amer 115 mL/min (>60) 05/06/24 06:36 Est GFR (MDRD) Non-Af 95 mL/min (>60) 05/06/24 06:36 BUN/Creatinine Ratio 6.0 RATIO (10-20) L 05/06/24 06:36 Glucose 64 mg/dL (74-106) L 05/06/24 06:36 Microbiology Microbiology: Microbiology 05/05/24 15:20 Urine, Random Legionella Antigen - Final 05/05/24 15:20 Urine, Random Streptococcus pneumoniae Antigen (M - Final 05/05/24 10:34 Mucosa - Nose Coronavirus COVID-19 PCR - Final 05/05/24 10:34 Mucosa - Nose Respiratory Panel (PCR) - Final 05/04/24 22:50 Stool Stool Occult Blood (MARTHA) - Final Occult Blood Positive Dosing Weight Weight used for dosin.6 kg Estimated Creatinine Clearance Estimated Creatinine Clearance: 63.9 Goal Trough Goal Trough: 15-20 mcg/mL Pharmacy Plan for Drug Dosing Pharmacy Plan for Drug Dosing: Pharmacy Service will continue to monitor and adjust dosing as required. Follow-Up Labs Follow-Up Labs: Trough: Vancomycin Date/Time Labs Ordered Labs to be done on [date and time ordered]: 05/08/24 @6480
[2024-05-06] MEDS: guaiFENesin 10 ML UDC (200MG/10ML) PO (23:13)
[2024-05-07] VITALS (15 sets, daily range): BP systolic 98–129; BP diastolic 47–60; PULSE 94–119; RESP 16–24; TEMP 36.6–38.1; O2SAT 90–95; BMI 31.0
[2024-05-07] MEDS: guaiFENesin 10 ML UDC (200MG/10ML) PO ×3 (04:47→18:45)
[2024-05-07] MEDS: Metoclopramide 10 MG/2 ML Vial IV ×3 (04:47→18:48)
[2024-05-07] MEDS: 0.9% Saline Lock 10 ML Syringe IV (04:47)
[2024-05-07] MEDS: Acetaminophen 325 MG Tablet 650 MG PO ×2 (04:56→21:03)
[2024-05-07 06:14] LABS: Absolute Lymphocyte Count 0.62 X10^3/uL (0.83-4.51); Absolute Neutrophil Count 7.9 X10^3/uL (2.0-7.7); Basophil# 0.02 X10^3/uL; Basophil% 0.2 % (0-1); Eosinophil# 0.01 X10^3/uL; Eosinophils% 0.1 % (0-5); Hematocrit 27.9 % (37-47); Hemoglobin 7.8 g/dL (12.0-15.0); Lymphocyte # 0.62 X10^3/ul (0.83-4.51); Lymphocyte % 6.6 % (19-41); Mean Corpuscular Hgb 24.4 pg (27.0-32.0); Mean Corpuscular Volume 87.2 fL (81-99); Mean Platelet Vol. 10.6 fl (6.2-12.0); Monocyte# 0.79 X10^3/uL; Monocyte% 8.4 % (0-10); NRBC Flagged by Analyzer 0 % (0-5); Neutrophil # 7.85 X10^3/uL (2.7-7.7); Neutrophil % 83.6 % (47-70); Platelet Count 234 K/mm3 (150-450); RBC Distribution Width CV 19.1 % (11.6-14.6); RBC Distribution Width SD 61.4 fl (35.1-43.9); White Blood Count 9.4 K/mm3 (4.4-11.0)
--- NOTE | 2024-05-07 06:15 | RAD_ITS ---
EXAM: XR CHEST, 1 VIEW CLINICAL INDICATION: SOB TECHNIQUE: Frontal view of the chest. COMPARISON: 05/05/2024 FINDINGS: LUNGS AND PLEURAL SPACES: Right upper and lower lobe space disease. Blunting of the right costophrenic angle which may represent pleural effusion. No pneumothorax. HEART: Unremarkable. Cardiac silhouette not enlarged. MEDIASTINUM: Central airways and mediastinal contour are unremarkable. BONES/JOINTS: Unremarkable. No acute fracture. SOFT TISSUES: Unremarkable. RAD/Chest 1 View (Portable) IMPRESSION: Right upper and lower lobe airspace disease may represent pneumonia. There has been minimal change from the reference exam. Electronically Signed: Vidal Mittal MD at 18:45 EDT ,
[2024-05-07 06:57] LABS: Anion Gap 4 (5-15); BUN 8 mg/dL (7-18); BUN/Creat Ratio 12.1 RATIO (10-20); Calcium,Total 8.2 mg/dL (8.5-10.1); Chloride 107 mmol/L (98-107); Creatinine, Serum 0.66 mg/dL (0.55-1.02); EST Glomerular Filtration Rate 95 mL/min (>60); Est Glom Filt Rate - Afr Amer 114 mL/min (>60); Glucose 87 mg/dL (74-106); Magnesium 1.7 mg/dL (1.6-2.6); Potassium 3.3 mmol/L (3.5-5.1); Sodium Level 140 mmol/L (136-145)
--- NOTE | 2024-05-07 08:45 | CT_ITS ---
STUDY: CTA CHEST REASON FOR EXAM: Female, 68 years old. hypoxia RADIATION DOSAGE (If Supplied By Facility): CTDIvol = ( 13.22 ) mGy, DLP = ( 408.38 ) mGycm TECHNIQUE: The examination was performed with the intravenous administration of IV 100mL Isovue-370. Post-processing of the angiographic images was performed, with multiplanar reformation and 3D reconstruction. Individualized dose optimization techniques were used for this CT. COMPARISON: Chest x-ray dated May 07, 2024 FINDINGS: Mild left and moderate right lower lobe atelectasis is present. There is superimposed moderate consolidation in the medial and anterior aspect of the right lower lobe. A moderate size right pleural effusion is also present. A small amount of pneumonic consolidation is also present in the posterior lateral aspect of the right middle lobe and posterior inferior aspect of the right upper lobe. A small left pleural effusion is present. Mild to moderate cystic emphysematous changes are seen in both lungs. Normal enhancement of the main pulmonary artery and right and left pulmonary arteries. Normal enhancement of the bilateral peripheral pulmonary arteries. There is no demonstrated pulmonary embolism. There is atherosclerotic calcification of the aortic arch with tortuosity. There is no demonstrated aortic dissection. Normal heart size. A small pericardial effusion is present. There are calcifications of the coronary arteries. Normal mediastinum. Normal hilar regions. Normal visualized trachea and bronchi. The lungs are well expanded. Normal chest wall structures. There are degenerative changes of thoracic spine. Normal visualized upper abdomen. CT/CTA Chest W/WO Contrast IMPRESSION: Right upper, middle, and lower lobe pneumonia 1. Mild left and moderate right lower lobe atelectasis is present. There is superimposed moderate consolidation in the medial and anterior aspect of the right lower lobe. A moderate size right pleural effusion is also present. A small amount of pneumonic consolidation is also present in the posterior lateral aspect of the right middle lobe and posterior inferior aspect of the right upper lobe. 2. A small left pleural effusion is present. 3. Mild to moderate cystic emphysematous changes are seen in both lungs. 4. No dense pulmonary embolism or arterial dissection. Electronically Signed: Ed Lomeli MD at 10:39 EDT ,
[2024-05-07] MEDS: Potassium Chloride Oral Tablet 20 MEQ 40 MEQ PO (10:15)
[2024-05-07] MEDS: Pantoprazole Sodium 40 MG in 0.9% Normal Saline (100mL MB+) 100 ML 330 MG IV ×2 (10:15→21:04)
[2024-05-07] MEDS: levoFLOXacin IV 750 MG in Empty Viaflex Q24 100 MG IV (10:24)
[2024-05-07] MEDS: Budesonide Respules 0.5 MG/2 ML AMPUL.NEB. INHALATION ×2 (11:20→19:12)
[2024-05-07] MEDS: Ipratropium/Albuterol Sulfate 3 ML AMPUL.NEB INHALATION ×3 (11:20→19:12)
--- NOTE | 2024-05-07 11:41 | PN.HOSP_ITS ---
Reason for Visit Reason for Visit: Low outpatient hemoglobin Subjective Subjective Unfortunately, no sputum has been collected as she is not producing a significant amount. Patient has not been compliant with her incentive spirometry, Acapella or her pulmonary toilet with aerosols. We discussed the importance of this given her pneumonia. She stated she would do more of it. We also discussed that she need to be up out of bed sitting upright to help mobilize secretions as well. Objective Data Objective Data Vital Signs: Vital Signs Temp Pulse Resp BP Pulse Ox O2 Del Method O2 Flow Rate 98.6 F 99 16 126/60 H 95 Nasal Cannula 3 05/07/24 08:50 05/07/24 11:25 05/07/24 11:25 05/07/24 08:50 05/07/24 08:50 05/07/24 10:00 05/07/24 10:00 Oxygen Flow Rate (L/min) 3 Oxygen Delivery Method Nasal Cannula Weight: 74.6 kg Body Mass Index (BMI) 31.0 Intake & Output: Intake and Output for Last 24 Hours 05/05/24 05/06/24 05/07/24 23:59 23:59 23:59 Intake Total 3765 / 4065 1804.83 / 1804.83 656.67 / 656.67 Output Total 1599 / 2049 1450 / 1450 Balance 2164 354.83 / 354.83 656.67 / 656.67 Lab / Micro Data 05/07/24 05:43 05/07/24 05:43 Labs: Laboratory Results - last 24 hr 05/06/24 20:40: MRSA (PCR) Negative 05/07/24 05:43: WBC 9.4, RBC 3.20 L, Hgb 7.8 L, Hct 27.9 L, MCV 87.2, MCH 24.4 L , MCHC 28.0 L D, RDW Std Deviation 61.4 H, RDW Coeff of Alfie 19.1 H, Plt Count 234, MPV 10.6, Immature Gran % (Auto) 1.100 H, Neut % (Auto) 83.6 H, Lymph % (Auto) 6.6 L, Sullivan % (Auto) 8.4, Eos % (Auto) 0.1, Baso % (Auto) 0.2, Absolute Neuts (auto) 7.9 H, Absolute Lymphs (auto) 0.62 L, Nucleated RBC % 0, Sodium 140, Potassium 3.3 L, Chloride 107, Carbon Dioxide 29.0, Anion Gap 4 L, BUN 8, Creatinine 0.66, Estim Creat Clear Calc 63.90, Est GFR (MDRD) Af Amer 114, Est GFR (MDRD) Non-Af 95, BUN/Creatinine Ratio 12.1, Glucose 87, Calcium 8.2 L, Magnesium 1.7 Micro: Microbiology 05/05/24 15:20 Urine, Random Legionella Antigen - Final 05/05/24 15:20 Urine, Random Streptococcus pneumoniae Antigen (M - Final 05/05/24 10:34 Mucosa - Nose Coronavirus COVID-19 PCR - Final 05/05/24 10:34 Mucosa - Nose Respiratory Panel (PCR) - Final 05/04/24 22:50 Stool Stool Occult Blood (MARTHA) - Final Occult Blood Positive Radiography Diagnostic Testing: Radiology Impression Chest CTA 05/07/24 08:45 IMPRESSION: Right upper, middle, and lower lobe pneumonia 1. Mild left and moderate right lower lobe atelectasis is present. There is superimposed moderate consolidation in the medial and anterior aspect of the right lower lobe. A moderate size right pleural effusion is also present. A small amount of pneumonic consolidation is also present in the posterior lateral aspect of the right middle lobe and posterior inferior aspect of the right upper lobe. 2. A small left pleural effusion is present. 3. Mild to moderate cystic emphysematous changes are seen in both lungs. 4. No dense pulmonary embolism or arterial dissection. Electronically Signed: Ed Lomeli MD at 10:39 EDT Reading Location ID and State: [facility] / [place] , Service support , Rhythm Strip Rhythm Strip: Sinus Tach Rate: 141 Ectopy: None Physical Exam Const alert, oriented x3, no apparent distress and well nourished; Negative for average body habitus or healthy appearing Constitutional Narrative: Obese, upper middle-aged, white female, sitting in bed, appears older than stated age, appears comfortable, appears comfortable, nontoxic, nursing and family at bedside HEENT head/scalp atraumatic and moist oral mucous membranes HEENT Narrative: Dentition is poor, Mallampati 3, no thrush Head and Scalp: normocephalic Eyes PERRL and EOMs intact bilaterally Eyes Narrative: Marked conjunctival pallor bilaterally, no scleral icterus Neck no lymphadenopathy and supple Neck Narrative: Trachea midline, no thyroid enlargement Resp normal respiratory effort, no retractions, no use of accessory muscles and No clear to auscultation bilaterally Resp Narrative: Right base seems more consolidated with scattered wheeze and rhonchi, no signs of respiratory distress, diffusely diminished otherwise Auscultation: rhonchi and wheezes; Negative for rales Cardio regular rate, regular rhythm, S1 normal heart sound, S2 normal heart sound, no murmurs, no rub, no gallops and no clicks GI normal to inspection, nondistended, normoactive bowel sounds, soft to palpation and non-tender Extremity no clubbing, cyanosis or edema Extremity Narrative: Pedal and radial pulses are 2+ Skin no wounds, skin turgor normal, no jaundice, no petechiae and no mottling Skin Narrative: Skin is pale Neuro oriented x3, moves all extremities and no focal motor deficits Speech: speech normal Psych affect normal Psych Narrative: Eye contact is good and patient interacts appropriately Assessment & Plan Assessment/Plan (1) Acidosis, lactic: (2) Symptomatic anemia: (3) S/P femoral-femoral bypass surgery: (4) Iron (Fe) deficiency anemia: (5) Hypoxia: (6) Fever: PLAN: Plan Acute on chronic iron deficiency anemia -It appears her hemoglobin has slowly been trending down however baseline most recently has been between 9 and 10. -3.5 on admission -Transfused 4 units packed red blood cells on the day of admission--> follow-up hemoglobin has been relatively stable -EGD was performed on 05/06/2024 and demonstrated grade 1 esophageal varices, 2 angiodysplastic lesions in the gastric body that were treated with coagulation for hemostasis and mild localized erythematous mucosa in the gastric antrum that were biopsied, there were patchy erythematous mucosa without active bleeding and no stigmata of bleeding in the duodenal bulb where biopsies were taken as well -Colonoscopy showed fair prep with 3 bleeding angiodysplastic lesions that were treated with heater probe and diverticulosis in the rectosigmoid and sigmoid colon along with patchy moderate inflammation at the sigmoid colon, ascending colon, cecum secondary to colitis this area was biopsied, stricture was noted in the terminal ileum that was biopsied -Continue Protonix 40 twice daily -Hold cilostazol -Restart Plavix -Hold rivaroxaban and restart after thoracentesis done on Thursday if hemoglobin remained stable -Hold aspirin today and restart tomorrow if stable hemoglobin -GI following-appreciate input-discussed with Dr. Kincaid Right lower lobe pneumonia/right pleural effusion -Patient continues to be intermittently febrile -Continue levofloxacin and vancomycin -CTA of the chest done today and shows a right lower lobe and middle lobe infiltrate with right effusion -Check MRSA PCR -Blood cultures remain pending -Not been able to produce a sputum culture as of yet but culture was ordered -Add chest vest -Suspect pleural effusion is parapneumonic -Thoracentesis ordered with cultures and fluid studies will have to be done on Thursday -Will hold reinitiation of low-dose rivaroxaban until after thoracentesis performed okay to restart aspirin and Plavix Hypoxia -Secondary above next-at baseline patient wears 3 L at night -Currently requiring 3 L nasal cannula with sats between 93 and 95% -Treatment as above Peripheral vascular disease -Status post right to left femorofemoral bypass on 01/21/2024 which was performed secondary to 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 potassium dosing again today next-magnesium level was normal at 1.7 Hyperlipidemia -Continue home statin Hypertension -Continue to hold home antihypertensives and restart once blood pressure tolerates -hydralazine for systolic pressure greater than 160 Vitamin D deficiency -Continue home ergocalciferol 1.25 mg every Bilateral carotid artery stenosis -Antiplatelet therapy and anticoagulation on hold -Continue outpatient follow-up with vascular surgery COPD -Continue home inhalers -As needed albuterol Tobacco abuse -Highly recommend cessation Obesity -BMI 31.1 -Complicates treatment, prognosis, outcomes -Recommend weight loss DVT prophylaxis -SCDs only -Chemoprophylaxis held due to suspected GI bleed with severe iron deficiency anemia CODE STATUS -Full code as verified at the time of admission Charges/Coding Visit Charges Inpatient E&M: 25961 Subs Hosp L3
[2024-05-07] MEDS: Vancomycin IV 1,000 MG/200 ML BAG 200 MG IV ×2 (14:12→23:07)
[2024-05-07] MEDS: Clopidogrel Bisulfate 75 MG Tablet PO (14:15)
[2024-05-07] MEDS: Atorvastatin Calcium 20 MG Tablet PO (21:03)
[2024-05-08] VITALS (13 sets, daily range): BP systolic 111–141; BP diastolic 58–74; PULSE 91–109; RESP 16–20; TEMP 36.9–37.5; O2SAT 91–95; BMI 31.5
[2024-05-08] MEDS: guaiFENesin 10 ML UDC (200MG/10ML) PO ×5 (00:31→23:00)
[2024-05-08] MEDS: Metoclopramide 10 MG/2 ML Vial IV ×5 (00:52→23:00)
[2024-05-08] MEDS: 0.9% Saline Lock 10 ML Syringe IV (05:49)
[2024-05-08 06:30] LABS: Absolute Lymphocyte Count 0.89 X10^3/uL (0.83-4.51); Absolute Neutrophil Count 5.1 X10^3/uL (2.0-7.7); Basophil# 0.03 X10^3/uL; Basophil% 0.4 % (0-1); Eosinophil# 0.04 X10^3/uL; Eosinophils% 0.6 % (0-5); Hematocrit 29.1 % (37-47); Hemoglobin 8.2 g/dL (12.0-15.0); Lymphocyte # 0.89 X10^3/ul (0.83-4.51); Lymphocyte % 12.9 % (19-41); Mean Corp Hgb Conc 28.2 g/dL (32-36); Mean Corpuscular Hgb 24.4 pg (27.0-32.0); Mean Corpuscular Volume 86.6 fL (81-99); Mean Platelet Vol. 10.6 fl (6.2-12.0); Monocyte# 0.75 X10^3/uL; Monocyte% 10.9 % (0-10); NRBC Flagged by Analyzer 0 % (0-5); Neutrophil # 5.12 X10^3/uL (2.7-7.7); Neutrophil % 74.3 % (47-70); Platelet Count 218 K/mm3 (150-450); RBC Distribution Width CV 19.3 % (11.6-14.6); RBC Distribution Width SD 61.9 fl (35.1-43.9); Red Blood Count 3.36 M/mm3 (4.2-5.4); White Blood Count 6.9 K/mm3 (4.4-11.0)
[2024-05-08 07:03] LABS: Anion Gap 5 (5-15); BUN 4 mg/dL (7-18); Calcium,Total 8.3 mg/dL (8.5-10.1); Chloride 104 mmol/L (98-107); Creatinine, Serum 0.66 mg/dL (0.55-1.02); EST Glomerular Filtration Rate 94 mL/min (>60); Est Glom Filt Rate - Afr Amer 114 mL/min (>60); Estimated Creatinine Clearance 64.43 ml/min; Glucose 88 mg/dL (74-106); Potassium 2.9 mmol/L (3.5-5.1); Sodium Level 140 mmol/L (136-145)
[2024-05-08] MEDS: Ipratropium/Albuterol Sulfate 3 ML AMPUL.NEB INHALATION ×4 (07:34→19:45)
[2024-05-08] MEDS: Budesonide Respules 0.5 MG/2 ML AMPUL.NEB. INHALATION ×2 (07:34→19:45)
[2024-05-08] MEDS: Pantoprazole Sodium 40 MG in 0.9% Normal Saline (100mL MB+) 100 ML 330 MG IV ×2 (10:02→21:25)
[2024-05-08] MEDS: Potassium Chloride Oral Tablet 20 MEQ 60 MEQ PO (10:02)
[2024-05-08 10:08] LABS: Vancomycin, Trough Level 15.6 ug/mL (5.0-15.0)
--- NOTE | 2024-05-08 10:15 | PCM.RX.CS ---
Consult Antibiotic Management Pharmacy has been consulted to manage selected antibiotic: Vancomycin Type of Intervention Type of Consult: Follow-up Labs Labs: Sodium 140 mmol/L (136-145) 05/08/24 05:32 Potassium 2.9 mmol/L (3.5-5.1) L 05/08/24 05:32 Chloride 104 mmol/L (98-107) 05/08/24 05:32 Carbon Dioxide 31.0 mmol/L (21.0-32.0) 05/08/24 05:32 Anion Gap 5 (5-15) 05/08/24 05:32 BUN 4 mg/dL (7-18) L 05/08/24 05:32 Creatinine 0.66 mg/dL (0.55-1.02) 05/08/24 05:32 Est GFR (MDRD) Af Amer 114 mL/min (>60) 05/08/24 05:32 Est GFR (MDRD) Non-Af 94 mL/min (>60) 05/08/24 05:32 BUN/Creatinine Ratio 6.0 RATIO (10-20) L 05/08/24 05:32 Glucose 88 mg/dL (74-106) 05/08/24 05:32 Vancomycin Trough 15.6 ug/mL (5.0-15.0) H 05/08/24 09:28 Microbiology Microbiology: Microbiology 05/05/24 10:30 Blood Culture (Wb) - Left Hand Blood Culture - Preliminary No growth in 48 hours. 05/05/24 10:30 Blood Culture (Wb) - Anticubital Left Blood Culture - Preliminary No growth in 48 hours. 05/05/24 15:20 Urine, Random Legionella Antigen - Final 05/05/24 15:20 Urine, Random Streptococcus pneumoniae Antigen (M - Final 05/05/24 10:34 Mucosa - Nose Coronavirus COVID-19 PCR - Final 05/05/24 10:34 Mucosa - Nose Respiratory Panel (PCR) - Final 05/04/24 22:50 Stool Stool Occult Blood (MARTHA) - Final Occult Blood Positive Goal Trough Goal Trough: 15-20 mcg/mL Pharmacy Plan for Drug Dosing Pharmacy Plan for Drug Dosing: VANCOMYCIN LEVEL RECEIVED Current Vancomycin Dose: 1000mg IV Q12hr Number of Doses Received: 3 (initial dose + 2 scheduled doses) Vancomycin Level:15.6 Hours Since Last Dose: 10.5 Renal Function: 0.66 Renal Function Trend: stable Lab/Micro: Cx show NGTD Vancomycin Plan/Comments: patient had a trough drawn which resulted in a value of 15.6 (goal 15-20). Patient is within therapeutic range at this time. Will continue vancomycin 1000mg IV Q12hr and recheck a trough in 48hrs to reassess dosing at that time. Pending Level: 05/10/24 @0930 Pharmacy Service will continue to monitor and adjust dosing as required.
[2024-05-08] MEDS: levoFLOXacin IV 750 MG in Empty Viaflex Q24 1154 MG IV (10:36)
[2024-05-08] MEDS: Clopidogrel Bisulfate 75 MG Tablet PO (10:39)
[2024-05-08] MEDS: Vancomycin IV 1,000 MG/200 ML BAG 200 MG IV ×2 (12:03→22:17)
--- NOTE | 2024-05-08 13:53 | PCM.PN.HOSP ---
Reason for Visit Reason for Visit: Abnormal hemoglobin on outpatient lab Subjective Subjective Patient states she does feel like her breathing is better. Still has not coughed up a specimen to send. We discussed her right lower lobe infiltrate as well as her effusion with plans for thoracentesis tomorrow. She voices understanding and agrees. I am hoping that once we get fluid off this will improve her oxygenation status and we can work towards discharge. Her hemoglobins been stable. She denies any signs of blood loss since reinitiating her Plavix. Objective Data Objective Data Vital Signs: Vital Signs Temp Pulse Resp BP Pulse Ox O2 Del Method O2 Flow Rate 99 F 98 18 135/69 H 93 Nasal Cannula 3.5 05/08/24 08:50 05/08/24 08:50 05/08/24 09:08 05/08/24 08:50 05/08/24 10:01 05/08/24 09:08 05/08/24 10:01 FiO2 3 05/07/24 21:00 Oxygen Flow Rate (L/min) 3.5 Oxygen Delivery Method Nasal Cannula Weight: 75.8 kg Body Mass Index (BMI) 31.5 Intake & Output: Intake and Output for Last 24 Hours 05/06/24 05/07/24 05/08/24 23:59 23:59 23:59 Intake Total 1804.83 / 1804.83 2176.67 / 2176.67 860 / 860 Output Total 1450 / 1450 500 / 500 Balance 354.83 / 354.83 2176.67 / 2176.67 360 / 360 Lab / Micro Data 05/08/24 05:32 05/08/24 05:32 Labs: Laboratory Results - last 24 hr 05/08/24 05:32: WBC 6.9, RBC 3.36 L, Hgb 8.2 L, Hct 29.1 L, MCV 86.6, MCH 24.4 L, MCHC 28.2 L, RDW Std Deviation 61.9 H, RDW Coeff of Alfie 19.3 H, Plt Count 218, MPV 10.6, Immature Gran % (Auto) 0.900, Neut % (Auto) 74.3 H, Lymph % (Auto) 12.9 L, Nuckolls % (Auto) 10.9 H, Eos % (Auto) 0.6, Baso % (Auto) 0.4, Absolute Neuts (auto) 5.1, Absolute Lymphs (auto) 0.89, Nucleated RBC % 0, Sodium 140, Potassium 2.9 L, Chloride 104, Carbon Dioxide 31.0, Anion Gap 5, BUN 4 L, Creatinine 0.66, Estim Creat Clear Calc 64.43, Est GFR (MDRD) Af Amer 114, Est GFR (MDRD) Non-Af 94, BUN/Creatinine Ratio 6.0 L, Glucose 88, Calcium 8.3 L 05/08/24 09:28: Vancomycin Trough 15.6 H Micro: Microbiology 05/05/24 10:30 Blood Culture (Wb) - Left Hand Blood Culture - Preliminary No growth in 48 hours. 05/05/24 10:30 Blood Culture (Wb) - Anticubital Left Blood Culture - Preliminary No growth in 48 hours. 05/05/24 15:20 Urine, Random Legionella Antigen - Final 05/05/24 15:20 Urine, Random Streptococcus pneumoniae Antigen (M - Final 05/05/24 10:34 Mucosa - Nose Coronavirus COVID-19 PCR - Final 05/05/24 10:34 Mucosa - Nose Respiratory Panel (PCR) - Final 05/04/24 22:50 Stool Stool Occult Blood (MARTHA) - Final Occult Blood Positive Rhythm Strip Rhythm Strip: Sinus Tach Rate: 141 Ectopy: None Physical Exam Const alert, oriented x3, no apparent distress and well nourished; Negative for average body habitus or healthy appearing Constitutional Narrative: Obese, upper middle-aged, white female, sitting in bed, appears older than stated age, appears comfortable, appears comfortable, nontoxic, family at bedside HEENT head/scalp atraumatic and moist oral mucous membranes HEENT Narrative: Edentulous, Mallampati 3, no thrush, tongue is large Head and Scalp: normocephalic Resp normal respiratory effort, no retractions, no use of accessory muscles and No clear to auscultation bilaterally Resp Narrative: Right base seems more consolidated with scattered wheeze and rhonchi, no signs of respiratory distress, diffusely diminished otherwise Auscultation: rhonchi and wheezes; Negative for rales Cardio regular rate, regular rhythm, S1 normal heart sound, S2 normal heart sound, no murmurs, no rub, no gallops and no clicks GI normal to inspection, nondistended, normoactive bowel sounds, soft to palpation and non-tender Extremity no clubbing, cyanosis or edema Extremity Narrative: Pedal and radial pulses are 2+ Neuro oriented x3, moves all extremities and no focal motor deficits Speech: speech normal Psych affect normal Psych Narrative: Eye contact is good and patient interacts appropriately Assessment & Plan Assessment/Plan (1) Acidosis, lactic: (2) Symptomatic anemia: (3) S/P femoral-femoral bypass surgery: (4) Iron (Fe) deficiency anemia: (5) Hypoxia: (6) Fever: PLAN: Plan Acute on chronic iron deficiency anemia -It appears her hemoglobin has slowly been trending down however baseline most recently has been between 9 and 10. -3.5 on admission -Transfused 4 units packed red blood cells on the day of admission -Since transfusion patient has been stable with hemoglobin between 7.5 and 9.0 -8.2 today -EGD was performed on 05/06/2024 and demonstrated grade 1 esophageal varices, 2 angiodysplastic lesions in the gastric body that were treated with coagulation for hemostasis and mild localized erythematous mucosa in the gastric antrum that were biopsied, there were patchy erythematous mucosa without active bleeding and no stigmata of bleeding in the duodenal bulb where biopsies were taken as well -Colonoscopy showed fair prep with 3 bleeding angiodysplastic lesions that were treated with heater probe and diverticulosis in the rectosigmoid and sigmoid colon along with patchy moderate inflammation at the sigmoid colon, ascending colon, cecum secondary to colitis this area was biopsied, stricture was noted in the terminal ileum that was biopsied -Continue Protonix 40 twice daily -Hold cilostazol -Restart Plavix -Restart aspirin -Hold rivaroxaban and restart after thoracentesis done on Thursday if hemoglobin remained stable -GI following-appreciate input Right lower lobe pneumonia/right pleural effusion -Patient continues to be intermittently febrile -Continue levofloxacin -Fever curve seems to be improving with Tmax in last 24 hours at 100.6 -CTA of the chest done today and shows a right lower lobe and middle lobe infiltrate with right effusion -MRSA PCR is negative and blood cultures show no growth so will discontinue vancomycin and continue levofloxacin -Not been able to produce a sputum culture as of yet but culture was ordered -Continue chest vest/aggressive pulmonary toilet/I-S/Acapella -Suspect pleural effusion is parapneumonic -Thoracentesis ordered with cultures and fluid studies will have to be done on Thursday -Will hold reinitiation of low-dose rivaroxaban until after thoracentesis performed okay to restart aspirin and Plavix Hypoxia -Secondary above -at baseline patient wears 3 L at night and sometimes during the day if her oxygen levels drop below 92% -Still requiring 3 L [id number] -Treatment as above Peripheral vascular disease -Status post right to left femorofemoral bypass on 01/21/2024 which was performed secondary to 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 potassium -May be depleted from colon prep for colonoscopy -Magnesium was normal Hyperlipidemia -Continue home statin Hypertension -Continue to hold home antihypertensives and restart once blood pressure tolerates -hydralazine for systolic pressure greater than 160 Vitamin D deficiency -Continue home ergocalciferol 1.25 mg every Bilateral carotid artery stenosis -Antiplatelet therapy and anticoagulation on hold -Continue outpatient follow-up with vascular surgery COPD -Continue home inhalers -As needed albuterol Tobacco abuse -Highly recommend cessation Obesity -BMI 31.6 -Complicates treatment, prognosis, outcomes -Recommend weight loss DVT prophylaxis -SCDs only -Chemoprophylaxis held due to suspected GI bleed with severe iron deficiency anemia CODE STATUS -Full code Charges/Coding Visit Charges Inpatient E&M: 60992 Subs Hosp L2
[2024-05-08] MEDS: Sodium Chloride 0.65% 1 SPRAY SPRAY.BTL 2 SPRAY NASAL ×2 (14:07→21:28)
[2024-05-08] MEDS: Aspirin E.C. 81 MG Tablet PO (16:09)
[2024-05-08] MEDS: Atorvastatin Calcium 20 MG Tablet PO (21:28)
--- NOTE | 2024-05-08 23:44 | CPS ---
Pt refused chest vest this round, but she did do Acapella X 10
[2024-05-09] VITALS (14 sets, daily range): BP systolic 127–163; BP diastolic 65–86; PULSE 91–121; RESP 15–20; TEMP 36.4–37.1; O2SAT 92–97; BMI 32.3
--- NOTE | 2024-05-09 | FLU_PTH ---
PATIENT: TONY BRADLEY LOC: [facility] U#:[id number] AGE/SX: 68/F ROOM: OR312 RE05/03/[address]: Dr. Belinda Baker DO : 1955 BED: 1 DIS: 05/10/2024 SPEC #: [id number] RECD: 05/09/24 10:00 STATUS: ALEXANDRO CROW #: [id number] KIKE: 05/09/24 00:[address]: Belinda Baker DEPT: CYTOLOGY RECD BY: John Malave ENTERED: 05/09/24 10:00 SP TYPE: Fluid OTHR DR: MD Vincent Harvey, IS ARCHITECT-C Tissues: THORACIC FLUID Procedures: Special Stain Group II Surgery Specimen Level IV Cytospin Fluid HEADER OPERATION: Thoracentesis with ultrasound PRE-OP DIAGNOSIS: Acidosis, anemia TISSUE SUBMITTED: Thoracentesis fluid for cytology DIAGNOSIS CYTOLOGY Thoracentesis fluid for cytology (cytospin and cellblock): Negative for malignant cells. See comment. SJ/mr 05/10/2024 COMMENT Immunohistochemistry ([id number]) supports the above diagnosis. Reactive mesothelial cells are noted. Clinical correlation and appropriate follow up are necessary. CYTOLOGY STUDY Slides are reviewed. CYTOLOGY GROSS Received is 80 ml of yellow-cloudy fluid labeled with the patient's name and and designated per the requisition as Thoracentesis fluid. Submitted for cytology preparation including cell block. Mr 05/09/2024 TC:5 CPT: 77654,80733
--- NOTE | 2024-05-09 | IMM_PTH ---
PATIENT: TONY BRADLEY LOC: MS3 U#:[id number] AGE/SX: 68/F ROOM: AR312 RE05/03/[address]: Dr. Belinda Baker DO : 1955 BED: 1 DIS: 05/10/2024 SPEC #: [id number] RECD: 05/10/24 09:54 STATUS: SOUSandra REQ #: [id number] KIKE: 05/09/24 00:[address]: Belinda Baker DEPT: IMMUNOHISTOCHEMISTRY RECD BY: Manav Pisano ENTERED: 05/10/24 09:55 SP TYPE: IMMUNO OTHR DR: MD Vincent Harvey, HAIR BOILER-C Tissues: THORACIC FLUID Procedures: RCC (add) NAPSIN A (add) Victor Manuel Ret (add) CK20 (add) CK5-6 (add) CK7 (add) CK8 (add) HEP PAR (add) NE (add) TTF1 (add) Vimentin (add) Pankeratin (add) P40 (add) CD68 (ADD) ER (initial) PHYSICIAN & INSTITUTION [place] [phone] SPECIMEN INFORMATION: Tissue Source: Thoracentesis fluid Clinical Info: judy Brizuela Specimen Number: [id number] CPT code: 86023,36263q52 METHODOLOGY: Deparaffinized sections of prefer/formalin-fixed tissue or PAP/DQ stained slides are incubated with monoclonal/polyclonal antibodies/oligonucleotide probes. Localization is made via biotin free immunoperoxidase method. Appropriate controls are performed and reacted as expected. Results on target cell population are indicated in the following table: RESULTS: ANTIBODY / CLONE RESULT ER (6F11) negative NE (1E2) negative AE1-3 (AE1/AE3/PCK26) negative * CK7 (OV-TL12/30) negative * CK8 (90buygF01) negative * CK20 (KS20.8) negative Vimentin (V9) negative * CD68 (KP-1) negative TTF-1 (8G7G3/1) negative Napsin A (Rabbit Polyclonal) negative HepPar (OCh1E5) negative RCC (PN-15) positive, weak (aberrant staining) CALRET (polyclonal) negative* CK5-6 (D5 & 1684) negative * P40 (BC28) negative * Positive in mesothelial cells These tests were developed and their performance characteristics determined by [facility]. They may not have been cleared or approved by the U.S. Food and Drug Administration. The FDA has determined that such clearance or approval is not necessary. The above immunohistochemical/dualISH markers are ordered and reviewed by the Pathologist. INTERPRETATION: Thoracentesis fluid: Negative for malignant cells. GOYO/ 05/11/2024
[2024-05-09] MEDS: Menthol/Lanolin/Calamine/Znox 113 GM Tube 1 APPLIC TOPICAL ×3 (02:31→21:17)
--- NOTE | 2024-05-09 06:00 | US_ITS ---
PROCEDURE: ULTRASOUND GUIDED THORACENTESIS. DATE: May 09, 2024.. INDICATION: Female, 68 years old. Right pleural effusion PHYSICIAN: Kenan Garvey M.D. PROCEDURE: The risks, benefits, and alternatives to the procedure were explained to the patient. The specific risks of bleeding, infection, and pneumothorax requiring chest tube insertion were discussed and accepted. Written informed consent was obtained. Ultrasonographic evaluation of the right lower pleural space was carried out. An adequate pocket was identified. The patient was placed in the sitting, upright position. The overlying skin was prepped and draped in sterile fashion. 1% lidocaine was administered subcutaneously for local anesthesia. Under ultrasound guidance, a 5 [place] thoracentesis needle/catheter system was advanced into the right posterior lower pleural fluid collection. Approximately 550 mL of toshia-colored fluid was drained. The catheter was removed, and a sterile dressing was applied. A specimen was collected and sent to the laboratory for analysis, as requested by the referring clinician. The patient tolerated the procedure well. A chest x-ray was ordered. US/Thoracentesis W US IMPRESSION: Ultrasound-guided right thoracentesis. Electronically Signed: Kenan Garvey MD at 9:34 EDT ,
[2024-05-09] MEDS: Sodium Chloride 0.65% 1 SPRAY SPRAY.BTL 2 SPRAY NASAL ×3 (06:15→21:18)
[2024-05-09] MEDS: Metoclopramide 10 MG/2 ML Vial IV ×3 (06:26→17:26)
[2024-05-09] MEDS: 0.9% Normal Saline (250mL Bag) 250 ML 15 ML IV (06:26)
[2024-05-09 06:56] LABS: Absolute Lymphocyte Count 0.72 X10^3/uL (0.83-4.51); Absolute Neutrophil Count 5.2 X10^3/uL (2.0-7.7); Basophil# 0.05 X10^3/uL; Basophil% 0.7 % (0-1); Eosinophil# 0.16 X10^3/uL; Eosinophils% 2.4 % (0-5); Hematocrit 28.1 % (37-47); Hemoglobin 8.2 g/dL (12.0-15.0); Lymphocyte # 0.72 X10^3/ul (0.83-4.51); Lymphocyte % 10.6 % (19-41); Mean Corp Hgb Conc 29.2 g/dL (32-36); Mean Corpuscular Hgb 24.4 pg (27.0-32.0); Mean Corpuscular Volume 83.6 fL (81-99); Mean Platelet Vol. 10.8 fl (6.2-12.0); Monocyte# 0.66 X10^3/uL; Monocyte% 9.7 % (0-10); NRBC Flagged by Analyzer 0 % (0-5); Neutrophil # 5.18 X10^3/uL (2.7-7.7); Neutrophil % 76.2 % (47-70); Platelet Count 223 K/mm3 (150-450); RBC Distribution Width CV 19.6 % (11.6-14.6); RBC Distribution Width SD 59.8 fl (35.1-43.9); Red Blood Count 3.36 M/mm3 (4.2-5.4); White Blood Count 6.8 K/mm3 (4.4-11.0)
[2024-05-09] MEDS: Budesonide Respules 0.5 MG/2 ML AMPUL.NEB. INHALATION ×2 (07:04→19:59)
[2024-05-09] MEDS: Ipratropium/Albuterol Sulfate 3 ML AMPUL.NEB INHALATION ×3 (07:04→19:59)
[2024-05-09 07:18] LABS: International Normalized Ratio 1.2; Prothrombin Time (Protime)PT. 15.3 SECONDS (11.7-14.9)
[2024-05-09 07:39] LABS: ALB/GLOB Ratio 0.7 RATIO (0.9-2.4); AST(SGOT) 30 U/L (15-37); Alanine Aminotransfer ALT/SGPT 11 U/L (13-56); Albumin, Serum 2.3 g/dL (3.2-5.0); Alkaline Phosphatase 59 U/L (45-117); Anion Gap 4 (5-15); BUN 3 mg/dL (7-18); BUN/Creat Ratio 5.4 RATIO (10-20); Bilirubin, Direct 0.06 mg/dL (0.00-0.30); Calcium,Total 8.5 mg/dL (8.5-10.1); Chloride 105 mmol/L (98-107); Creatinine, Serum 0.55 mg/dL (0.55-1.02); EST Glomerular Filtration Rate 117 mL/min (>60); Est Glom Filt Rate - Afr Amer 141 mL/min (>60); Globulin 3.2 g/dL (2.2-4.2); Glucose 89 mg/dL (74-106); LDH 407 U/L (84-246); Magnesium 1.8 mg/dL (1.6-2.6); Potassium 3.6 mmol/L (3.5-5.1); Protein, Total 5.5 g/dL (6.4-8.2); Sodium Level 139 mmol/L (136-145)
[2024-05-09 07:49] LABS: Phosphorus 2.5 mg/dL (2.5-4.9)
[2024-05-09] MEDS: Lidocaine 2% (20 ml mdv) 20 ML Vial INFILT (08:48)
--- NOTE | 2024-05-09 08:55 | RAD_ITS ---
STUDY: X-RAY CHEST REASON FOR EXAM: Female, 68 years old. Post thoracentesis TECHNIQUE: Inspiration and expiration views. COMPARISON: Comparison is made with prior study dated May 07, 2024. FINDINGS: The patient is status post right thoracentesis. No evidence of pneumothorax. Residual left pleural-parenchymal changes. RAD/Chest Insp/Exp 2 View IMPRESSION: No evidence of pneumothorax on the immediate post right thoracentesis. The patient tolerated the procedure well. Electronically Signed: Kenna Garvey MD at 9:05 EDT ,
[2024-05-09 09:53] LABS: Glucose, Body Fluid 100 mg/dL (40-70); LDH,Body Fluid 57 Units/L (Not Establ.); Protein, Body Fluid 1.3 g/dL (Not Establ.)
[2024-05-09] MEDS: Pantoprazole Sodium 40 MG in 0.9% Normal Saline (100mL MB+) 100 ML 330 MG IV ×2 (10:14→21:21)
[2024-05-09 10:15] LABS: Cytology, Body Fluid / CSF SEE PATHOLOGY REPORT
[2024-05-09 10:30] LABS: Body Fluid Mononuclear WBC # 0.082 10^3/uL; Body Fluid Mononuclear WBC % 84.6 %; Body Fluid Polynuclear WBC # 0.015 10^3/uL; Body Fluid Polynuclear WBC % 15.4 %; Body Fluid Total Cells Counted 0.111 10^3/ul; White Blood Count/Body Fluid 0.097 10^3/uL
[2024-05-09 10:42] LABS: Auto B Fluid Analyzer BKGD Ct COUNTS W/IN LIMITS (W/IN LIMITS); Source- Body Fluid THORACENTESIS
[2024-05-09 10:43] LABS: Appearance/Body Fluid CLEAR; Color/Body Fluid COLORLESS
--- NOTE | 2024-05-09 11:03 | PN.HOSP_ITS ---
Reason for Visit Reason for Visit: Low outpatient hemoglobin Subjective Subjective Patient states she is feeling well. Went down for thoracentesis today at which time 550 cc of fluid were removed. I have asked her to work on incentive spirometry and Acapella extensively today and get out of bed and move around to see if we can optimize her oxygenation and get her off oxygen and she is not oxygen dependent during the day at home. She is aware that she may need to be discharged on oxygen however. Hemoglobin is stable and we will restart Xarelto today. Objective Data Objective Data Vital Signs: Vital Signs Temp Pulse Resp BP Pulse Ox O2 Del Method O2 Flow Rate 98.5 F 91 18 145/77 H 95 Nasal Cannula 2 05/09/24 10:05 05/09/24 10:05 05/09/24 10:05 05/09/24 10:05 05/09/24 10:05 05/09/24 10:05 05/09/24 10:05 FiO2 3 05/08/24 22:11 Oxygen Flow Rate (L/min) 2 Oxygen Delivery Method Nasal Cannula Weight: 77.8 kg Body Mass Index (BMI) 32.3 Intake & Output: Intake and Output for Last 24 Hours 05/07/24 05/08/24 05/09/24 23:59 23:59 23:59 Intake Total 2176.67 / 2176.67 2920 / 2920 Output Total 1050 / 1600 1100 / 1100 Balance 2176.67 / 2176.67 1870 / 1320 -1100 / -1100 Lab / Micro Data 05/09/24 06:04 05/09/24 06:04 Labs: Laboratory Results - last 24 hr 05/07/24 08:42: Fluid Glucose 100 H, Fluid Total Protein 1.3, Fluid LDH 57 05/09/24 06:04: WBC 6.8, RBC 3.36 L, Hgb 8.2 L, Hct 28.1 L, MCV 83.6, MCH 24.4 L , MCHC 29.2 L, RDW Std Deviation 59.8 H, RDW Coeff of Alfie 19.6 H, Plt Count 223, MPV 10.8, Immature Gran % (Auto) 0.400, Neut % (Auto) 76.2 H, Lymph % (Auto) 10.6 L, [place] % (Auto) 9.7, Eos % (Auto) 2.4, Baso % (Auto) 0.7, Absolute Neuts (auto) 5.2, Absolute Lymphs (auto) 0.72 L, Nucleated RBC % 0, PT 15.3 H, INR 1.2, Sodium 139, Potassium 3.6, Chloride 105, Carbon Dioxide 30.0, Anion Gap 4 L , BUN 3 L, Creatinine 0.55, Estim Creat Clear Calc 65.30, Est GFR (MDRD) Af Amer 141, Est GFR (MDRD) Non-Af 117, BUN/Creatinine Ratio 5.4 L, Glucose 89, Calcium 8.5, Phosphorus 2.5, Magnesium 1.8, Total Bilirubin 0.60, Direct Bilirubin 0.06, AST 30, ALT 11 L, Alkaline Phosphatase 59, Lactate Dehydrogenase 407 H, Total Protein 5.5 L, Albumin 2.3 L, Globulin 3.2, Albumin/Globulin Ratio 0.7 L 05/09/24 08:42: Fluid Source THORACENTESIS, Fluid Color COLORLESS, Fluid Appearance CLEAR, Fluid WBC 0.097, Fluid Tot Cell Count 0.111 H, Fld Polynuclear WBCs # 0.015, Fld Polynuclear WBCs % 15.4, Fluid Mononuclear WBCs 0.082, Fld Mononuclear WBCs % 84.6, Fl Pathologist Comment May follow, Fluid Comment 2 SEE COMMENT Micro: Microbiology 05/05/24 10:30 Blood Culture (Wb) - Left Hand Blood Culture - Preliminary No growth in 48 hours. 05/05/24 10:30 Blood Culture (Wb) - Anticubital Left Blood Culture - Preliminary No growth in 48 hours. 05/05/24 15:20 Urine, Random Legionella Antigen - Final 05/05/24 15:20 Urine, Random Streptococcus pneumoniae Antigen (M - Final 05/05/24 10:34 Mucosa - Nose Coronavirus COVID-19 PCR - Final 05/05/24 10:34 Mucosa - Nose Respiratory Panel (PCR) - Final 05/04/24 22:50 Stool Stool Occult Blood (MARTHA) - Final Occult Blood Positive Radiography Diagnostic Testing: Radiology Impression Chest X-Ray 05/07/24 06:15 IMPRESSION: Right upper and lower lobe airspace disease may represent pneumonia. There has been minimal change from the reference exam. Electronically Signed: Vidal Mittal MD at 18:45 EDT , Thoracentesis Ultrasound 05/09/24 06:00 IMPRESSION: Ultrasound-guided right thoracentesis. Electronically Signed: Kenan Garvey MD at 9:34 EDT , Chest X-Ray 05/09/24 08:55 IMPRESSION: No evidence of pneumothorax on the immediate post right thoracentesis. The patient tolerated the procedure well. Electronically Signed: Kenan Garvey MD at 9:05 EDT , Rhythm Strip Rhythm Strip: Sinus Tach Rate: 141 Ectopy: None Physical Exam Const alert, oriented x3, no apparent distress and well nourished; Negative for average body habitus or healthy appearing Constitutional Narrative: Obese, upper middle-aged, white female, sitting in bed, appears older than stated age, appears comfortable, appears comfortable, nontoxic, family at bedside HEENT head/scalp atraumatic and moist oral mucous membranes HEENT Narrative: Edentulous, Mallampati 3, no thrush, tongue is large Resp normal respiratory effort, no retractions, no use of accessory muscles and clear to auscultation bilaterally Resp Narrative: Improved aeration in the right base, otherwise diffusely diminished Auscultation: Negative for rales, rhonchi or wheezes Cardio regular rate, regular rhythm, S1 normal heart sound, S2 normal heart sound, no murmurs, no rub, no gallops and no clicks GI normal to inspection, nondistended, normoactive bowel sounds, soft to palpation and non-tender Extremity no clubbing, cyanosis or edema Extremity Narrative: Pedal and radial pulses are 2+ Neuro oriented x3, moves all extremities and no focal motor deficits Speech: speech normal Psych affect normal Psych Narrative: Eye contact is good and patient interacts appropriately Assessment & Plan Assessment/Plan (1) Acidosis, lactic: (2) Symptomatic anemia: (3) S/P femoral-femoral bypass surgery: (4) Iron (Fe) deficiency anemia: (5) Hypoxia: (6) Fever: PLAN: Plan Acute on chronic iron deficiency anemia -It appears her hemoglobin has slowly been trending down however baseline most recently has been between 9 and 10. -3.5 on admission -Transfused 4 units packed red blood cells on the day of admission -Since transfusion patient has been stable with hemoglobin between 7.5 and 9.0 - 8.2 again today -EGD was performed on 05/06/2024 and demonstrated grade 1 esophageal varices, 2 angiodysplastic lesions in the gastric body that were treated with coagulation for hemostasis and mild localized erythematous mucosa in the gastric antrum that were biopsied, there were patchy erythematous mucosa without active bleeding and no stigmata of bleeding in the duodenal bulb where biopsies were taken as well -Colonoscopy showed fair prep with 3 bleeding angiodysplastic lesions that were treated with heater probe and diverticulosis in the rectosigmoid and sigmoid colon along with patchy moderate inflammation at the sigmoid colon, ascending colon, cecum secondary to colitis this area was biopsied, stricture was noted in the terminal ileum that was biopsied -Continue Protonix 40 twice daily -Hold cilostazol -Restart Plavix -Restart aspirin -Restart rivaroxaban -GI following-appreciate input Right lower lobe pneumonia/right pleural effusion -Continue levofloxacin -Patient has now been afebrile for 24 hours -Sputum culture was sent earlier this morning -Continue chest vest/aggressive pulmonary toilet/I-S/Acapella -Suspect pleural effusion is parapneumonic--> lab data depending on fluid and will calculate light criteria -Thoracentesis performed for removal of 550 cc of fluid from the right lung Hypoxia -Secondary above -Has been weaned to 2 L -Treatment as above Peripheral vascular disease -Status post right to left femorofemoral bypass on 01/21/2024 which was performed secondary to 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 -Claudication symptoms had resolved -Patient has been restarted on her aspirin, Plavix, rivaroxaban and still holding cilostazol--> GI would like to discontinue this--> will discuss with vascular surgery -Plan from vascular surgery is to continue this until 6 months postoperatively and then consider changing rivaroxaban to 2.5 mg daily with a single antiplatelet agent -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 twice daily -Continue outpatient follow-up with vascular surgery COPD -Continue home inhalers -As needed albuterol Tobacco abuse -Highly recommend cessation Obesity -BMI 32.4 -Complicates treatment, prognosis, outcomes -Recommend weight loss DVT prophylaxis -Restart home Xarelto CODE STATUS -Full code Charges/Coding Visit Charges Inpatient E&M: 42323 Subs Hosp L2
[2024-05-09 11:28] LABS: Red Cell Count/Body Fluid 96 /mm3
[2024-05-09 12:15] LABS: Lymphocytes 32 %; Macrophages 13 %; Mesothelial Cells 13 %; Monocytes 23 %; Neutrophil (Segs) 19 %
[2024-05-09 12:17] LABS: Body Fluid QC Type(s) BF4,BF5
[2024-05-09] MEDS: Aspirin E.C. 81 MG Tablet PO (13:15)
[2024-05-09] MEDS: Clopidogrel Bisulfate 75 MG Tablet PO (13:16)
[2024-05-09] MEDS: levoFLOXacin 750 MG Tablet PO (13:16)
[2024-05-09] MEDS: Rivaroxaban 2.5 MG Tablet PO ×2 (13:16→21:19)
[2024-05-09] MEDS: guaiFENesin 10 ML UDC (200MG/10ML) PO (13:41)
[2024-05-09] MEDS: Furosemide 40 MG/4 ML Vial IV (14:21)
[2024-05-09] MEDS: Potassium Chloride Oral Tablet 20 MEQ 40 MEQ PO (14:22)
--- NOTE | 2024-05-09 17:26 | EX.PCM.PN.GI ---
Subjective Subjective Patient underwent large-volume paracentesis today. She is not having any problems since the paracentesis. She does have a mild cough. She denies any chest pain or shortness of breath. She was been afebrile. Objective Data Objective Data Vital Signs: Vital Signs Temp Pulse Resp BP Pulse Ox O2 Del Method O2 Flow Rate 97.8 F 105 H 20 H 130/65 H 97 Nasal Cannula 2 05/09/24 14:00 05/09/24 15:18 05/09/24 15:18 05/09/24 14:00 05/09/24 14:00 05/09/24 14:00 05/09/24 14:56 FiO2 3 05/08/24 22:11 Oxygen Flow Rate (L/min) 2 Oxygen Delivery Method Nasal Cannula Weight: 171 lb 8.314 oz Body Mass Index (BMI) 32.3 Intake & Output: Intake and Output for Last 24 Hours 05/07/24 05/08/24 05/09/24 23:59 23:59 23:59 Intake Total 2176.67 / 2176.67 2920 / 2920 410 / 410 Output Total 1050 / 1600 1650 / 1650 Balance 2176.67 / 2176.67 1870 / 1320 -1240 / -1240 Lab / Micro Data 05/09/24 06:04 05/09/24 06:04 Labs: Laboratory Results - last 24 hr 05/07/24 08:42: Fluid Glucose 100 H, Fluid Total Protein 1.3, Fluid LDH 57 05/09/24 06:04: WBC 6.8, RBC 3.36 L, Hgb 8.2 L, Hct 28.1 L, MCV 83.6, MCH 24.4 L, MCHC 29.2 L, RDW Std Deviation 59.8 H, RDW Coeff of Alfie 19.6 H, Plt Count 223, MPV 10.8, Immature Gran % (Auto) 0.400, Neut % (Auto) 76.2 H, Lymph % (Auto) 10.6 L, [place] % (Auto) 9.7, Eos % (Auto) 2.4, Baso % (Auto) 0.7, Absolute Neuts (auto) 5.2, Absolute Lymphs (auto) 0.72 L, Nucleated RBC % 0, PT 15.3 H, INR 1.2, Sodium 139, Potassium 3.6, Chloride 105, Carbon Dioxide 30.0, Anion Gap 4 L, BUN 3 L, Creatinine 0.55, Estim Creat Clear Calc 65.30, Est GFR (MDRD) Af Amer 141, Est GFR (MDRD) Non-Af 117, BUN/Creatinine Ratio 5.4 L, Glucose 89, Calcium 8.5, Phosphorus 2.5, Magnesium 1.8, Total Bilirubin 0.60, Direct Bilirubin 0.06, AST 30, ALT 11 L, Alkaline Phosphatase 59, Lactate Dehydrogenase 407 H, Total Protein 5.5 L, Albumin 2.3 L, Globulin 3.2, Albumin/Globulin Ratio 0.7 L 05/09/24 08:42: Fluid Source THORACENTESIS, Fluid Color COLORLESS, Fluid Appearance CLEAR, Fluid WBC 0.097, Fluid RBC 96, Fluid Tot Cell Count 0.111 H, Fld Polynuclear WBCs # 0.015, Fld Polynuclear WBCs % 15.4, Fluid Mononuclear WBCs 0.082, Fld Mononuclear WBCs % 84.6, Fluid Neutrophils 19, Fluid Lymphocytes 32, Fluid Monocytes 23, Fluid Macrophages 13, Fld Mesothelial Cells 13, Fl Pathologist Comment May follow, Fluid Comment 2 SEE COMMENT Micro: Microbiology 05/09/24 00:30 Sputum, Expectorated/Coughed Gram Stain - Final 05/09/24 08:42 Fluid - Thoracentesis Fluid Gram Stain - Final 05/05/24 10:30 Blood Culture (Wb) - Left Hand Blood Culture - Preliminary No growth in 48 hours. 05/05/24 10:30 Blood Culture (Wb) - Anticubital Left Blood Culture - Preliminary No growth in 48 hours. 05/05/24 15:20 Urine, Random Legionella Antigen - Final 05/05/24 15:20 Urine, Random Streptococcus pneumoniae Antigen (M - Final 05/05/24 10:34 Mucosa - Nose Coronavirus COVID-19 PCR - Final 05/05/24 10:34 Mucosa - Nose Respiratory Panel (PCR) - Final 05/04/24 22:50 Stool Stool Occult Blood (AMRTHA) - Final Occult Blood Positive Radiography Diagnostic Testing: Radiology Impression Chest X-Ray 05/07/24 06:15 IMPRESSION: Right upper and lower lobe airspace disease may represent pneumonia. There has been minimal change from the reference exam. Electronically Signed: Vidal Mittal MD at 18:45 EDT , Thoracentesis Ultrasound 05/09/24 06:00 IMPRESSION: Ultrasound-guided right thoracentesis. Electronically Signed: Kenan Garvey MD at 9:34 EDT , Chest X-Ray 05/09/24 08:55 IMPRESSION: No evidence of pneumothorax on the immediate post right thoracentesis. The patient tolerated the procedure well. Electronically Signed: Kenan Garvey MD at 9:05 EDT , Rhythm Strip Rhythm Strip: Sinus Tach Rate: 141 Ectopy: None Physical Exam Narrative General: Alert, Oriented x3, Cooperative HEENT: Atraumatic, PERRLA, EOMI, Normocephalic. Pale conjunctiva Oral: Oral mucosa moist. No Gingival or Mucosal Lesions/ Ulcerations Neck: Supple, No JVD, Negative Carotid Bruits Chest wall/Lungs: Air entry diminished in bilateral lung bases. No crepitation/rhonchi Cardiovascular: Sinus tachycardia, systolic murmur present over LLSB. Regular rhythm Abdomen: Bowel Sounds Present, Soft, Non Tender, Non-Distended : No dysuria. No renal angle tenderness. No suprapubic tenderness. Extremities: mild bilateral pitting leg edema, Capillary Refill Less than 3 Seconds Skin: No rashes, No breakdown Musculoskeletal: No Tenderness to Palpation of Joints or Extremities Neurological: Cranial nerves II-XII grossly intact, DTR 2+/4. No acute focal neurological deficit. Psych/Mental Status: Flat affect Assessment & Plan Assessment/Plan (1) Colitis: (2) AVM (arteriovenous malformation): (3) Symptomatic anemia: (4) Iron (Fe) deficiency anemia: PLAN: Plan This 68-year-old female is being admitted for severe anemia, hemoglobin 3.5 on an outpatient lab. Acute severe symptomatic anemia: Patient last H&H 9.7/31% in January 2024. However back in October her hemoglobin was 12.4. Today her hemoglobin and hematocrit is 3.5/13.7%. Platelet count. 569,000. White count normal. Twelve-lead EKG shows sinus tachycardia 121 bpm, QTc 443 ms. Differential diagnosis for acute blood loss anemia would be peptic ulcer disease, gastric antral vascular ectasia, angiodysplasia, neoplasia, celiac disease. Acute on chronic iron deficiency anemia: Iron profile shows serum iron 10, TIBC elevated 497, iron saturation 2.1%. Ferritin 2, consistent with iron deficiency anemia. Stool for occult blood ordered. Empirically started on pantoprazole 40 mg q. 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 Patient had office visit on 03/21/2024 and found well-healed incision site. Patient on aspirin 81 mg daily, Plavix 75 mg daily and Xarelto 2.5 mg twice daily. Outpatient office plan was to continue for 6 months and then Xarelto 2.5 mg with single antiplatelet agent. Continue to hold all 3 antiplatelet/anticoagulant agent unless vascular surgery says to continue medicines. She will undergo EGD and colonoscopy. She has not had a colonoscopy in the past. She was explained alternatives, risk, benefits including not withstanding bleeding, infection, sepsis, perforation, need for emergent surgery and . She will have an ASA of 3. 05/05/2024-the plan is to perform her EGD and colonoscopy tomorrow unless primary service wants to hold off. Continue to hold anticoagulation and antiplatelet therapy. 05/06/2024-upper endoscopy findings: Grade I varices were found in the upper third of the esophagus. They were 5 mm in largest diameter. Two 5 mm angiodysplastic lesions with bleeding were found in the gastric body. Coagulation for hemostasis using heater probe was successful. Estimated blood loss was minimal. Localized mildly erythematous mucosa without bleeding was found in the gastric antrum. Biopsies were taken with a cold forceps for histology. Verification of patient identification for the specimen was done. Biopsies were taken with a cold forceps for Helicobacter pylori testing. Verification of patient identification for the specimen was done. Estimated blood loss was minimal. Patchy mildly erythematous mucosa without active bleeding and with no stigmata of bleeding was found in the duodenal bulb. Biopsies were taken with a cold forceps for histology. Verification of patient identification for the specimen was done. Estimated blood loss was minimal. A small hiatal hernia was present. Impression: - Grade I esophageal varices. - Two bleeding angiodysplastic lesions in the stomach. Treated with a heater probe. - Erythematous mucosa in the antrum. Biopsied. - Erythematous duodenopathy. Biopsied. Recommendation: - [facility] care. - Resume regular diet. - Continue present medications. - Await pathology results. - Repeat upper endoscopy. - Her upper esophageal varices are not associated with liver disease. They are associated with respiratory disease. Colonoscopy findings: The perianal and digital rectal examinations were normal. Three medium-sized localized angiodysplastic lesions with bleeding were found in the recto-sigmoid colon and in the sigmoid colon. Coagulation for hemostasis using heater probe was successful. Estimated blood loss was minimal. A few small-mouthed diverticula were found in the recto-sigmoid colon and sigmoid colon. Stool was found in the sigmoid colon, in the transverse colon and in the ascending colon. Patchy moderate inflammation characterized by erythema, friability and granularity was found in the sigmoid colon, in the ascending colon and in the cecum. Biopsies were taken with a cold forceps for histology. Verification of patient identification for the specimen was done. Estimated blood loss was minimal. The terminal ileum contained a benign-appearing, intrinsic moderate stenosis that was non-traversed. Biopsies were taken with a cold forceps for histology. Verification of patient identification for the specimen was done. Estimated blood loss was minimal. Impression: - Preparation of the colon was fair. - Three bleeding colonic angiodysplastic lesions. Treated with a heater probe. - Diverticulosis in the recto-sigmoid colon and in the sigmoid colon. - Stool in the sigmoid colon, in the transverse colon and in the ascending colon. - Patchy moderate inflammation was found in the sigmoid colon, in the ascending colon and in the cecum secondary to colitis. Biopsied. - Stricture in the terminal ileum. Biopsied. Recommendation: - [facility]. - Resume regular diet. - Continue present medications. - Await pathology results. - Repeat colonoscopy in 5 years for surveillance based on pathology results. Check blood work for inflammatory bowel disease. Since she had so many angiodysplastic lesions she will need a capsule endoscopy. 05/09/2024-her INR is 1.2 with a PT of 15.3. BUN/creatinine ratio is improved. Hemoglobin seems to be stable at 8.2 two days in a row. Patient being started back on antiplatelet anticoagulation while she is in the hospital. She will still need capsule endoscopy as an outpatient. Charges/Coding Visit Charges Inpatient E&M: 30850 Subs Hosp L3
[2024-05-09] MEDS: Atorvastatin Calcium 20 MG Tablet PO (21:19)
[2024-05-10] MEDS: Sodium Chloride 0.65% 1 SPRAY SPRAY.BTL 2 SPRAY NASAL (07:16)
[2024-05-10 08:09] LABS: Anion Gap 2 (5-15); BUN 4 mg/dL (7-18); BUN/Creat Ratio 7.7 RATIO (10-20); Calcium,Total 8.7 mg/dL (8.5-10.1); Chloride 100 mmol/L (98-107); Creatinine, Serum 0.52 mg/dL (0.55-1.02); EST Glomerular Filtration Rate 125 mL/min (>60); Est Glom Filt Rate - Afr Amer 151 mL/min (>60); Glucose 88 mg/dL (74-106); Potassium 2.6 mmol/L (3.5-5.1); Sodium Level 141 mmol/L (136-145)
[2024-05-10 08:12] VITALS: O2SAT 92
[2024-05-10] MEDS: Potassium Chloride Oral Tablet 20 MEQ 60 MEQ PO (08:48)
[2024-05-10 09:00] VITALS: BP 144/72; PULSE 98; RESP 18; TEMP 36.8; O2SAT 95
--- NOTE | 2024-05-10 09:03 | CASEMGMT ---
DALIA CM into pt room, pt sitting up in bed with sister present at bedside combing pt hair. Pt states she is ready to go home. She denies any needs for HHC. She feels she is strong enough to return home. Pt states she does have portable oxygen tanks at home but does not feel she will need it. Pt currently ordered 2L with exertion. Pt states she will ride in the car and if she needs it to go in the home, someone can bring it out for her. Pt is aware she will likely be tested for a change in oxygen rx prior to dc. Pt denies any further needs at this time.
[2024-05-10 09:56] LABS: Absolute Lymphocyte Count 0.73 X10^3/uL (0.83-4.51); Absolute Neutrophil Count 5.5 X10^3/uL (2.0-7.7); Basophil# 0.04 X10^3/uL; Basophil% 0.6 % (0-1); Eosinophil# 0.15 X10^3/uL; Eosinophils% 2.1 % (0-5); Hemoglobin 8.8 g/dL (12.0-15.0); Lymphocyte # 0.73 X10^3/ul (0.83-4.51); Lymphocyte % 10.4 % (19-41); Mean Corp Hgb Conc 29.3 g/dL (32-36); Mean Corpuscular Hgb 24.2 pg (27.0-32.0); Mean Corpuscular Volume 82.6 fL (81-99); Mean Platelet Vol. 11.1 fl (6.2-12.0); Monocyte# 0.58 X10^3/uL; Monocyte% 8.2 % (0-10); NRBC Flagged by Analyzer 0 % (0-5); Neutrophil % 78.1 % (47-70); Platelet Count 243 K/mm3 (150-450); RBC Distribution Width CV 19.9 % (11.6-14.6); RBC Distribution Width SD 59.7 fl (35.1-43.9); Red Blood Count 3.63 M/mm3 (4.2-5.4)
[2024-05-10 11:16] VITALS: PULSE 100; RESP 19
[2024-05-10] MEDS: Ipratropium/Albuterol Sulfate 3 ML AMPUL.NEB INHALATION (11:16)
[2024-05-10] MEDS: amLODIPine 5 MG Tablet PO (11:40)
[2024-05-10] MEDS: Pantoprazole Sodium 40 MG in 0.9% Normal Saline (100mL MB+) 100 ML 330 MG IV (11:40)
[2024-05-10] MEDS: Rivaroxaban 2.5 MG Tablet PO (11:41)
[2024-05-10] MEDS: levoFLOXacin 750 MG Tablet PO (11:41)
[2024-05-10] MEDS: Clopidogrel Bisulfate 75 MG Tablet PO (11:41)
[2024-05-10] MEDS: Aspirin E.C. 81 MG Tablet PO (11:41)
[2024-05-10] MEDS: Menthol/Lanolin/Calamine/Znox 113 GM Tube 1 APPLIC TOPICAL (11:49)
[2024-05-10 13:28] LABS: Pathologist Comment/Body Fluid Reviewed
[2024-05-10 13:55] VITALS: O2SAT 90; O2SAT 95
--- NOTE | 2024-05-10 14:16 | CASEMGMT ---
Pt does not require an increase in oxygen rx.
--- NOTE | 2024-05-10 15:22 | DS.PCM_ITS ---
Providers Date of Admission: 05/03/24 Primary Care Physician: Vincent Ashley, CURTISC Consultations 05/03/24 15:52 Consult: Gastroenterology Routine Consulting Provider: Kimberli [facility] Reason for Consult: severe anemia on xarelto, Hb 3.5 EMERGENT Consult: No MD Notified: Yes Date Notified: 05/03/24 Time Notified: 14:50 Method of Notification: Text Reason For Visit: SEVERE ANEMIA, HB 3.5 Diagnosis Discharge Diagnosis (1) Colitis: Status: Acute Code(s): K52.9 - Noninfective gastroenteritis and colitis, unspecified (2) AVM (arteriovenous malformation): Status: Acute Code(s): Q27.30 - Arteriovenous malformation, site unspecified (3) Symptomatic anemia: Status: Acute Code(s): D64.9 - Anemia, unspecified (4) Iron (Fe) deficiency anemia: Status: Acute Code(s): D50.9 - Iron deficiency anemia, unspecified Plan Acute on chronic iron deficiency anemia -It appears her hemoglobin has slowly been trending down however baseline most recently has been between 9 and 10. -3.5 on admission -Transfused 4 units packed red blood cells on the day of admission -Since transfusion patient has been stable with hemoglobin between 7.5 and 9.0 - 8.2 again today -EGD was performed on 05/06/2024 and demonstrated grade 1 esophageal varices, 2 angiodysplastic lesions in the gastric body that were treated with coagulation for hemostasis and mild localized erythematous mucosa in the gastric antrum that were biopsied, there were patchy erythematous mucosa without active bleeding and no stigmata of bleeding in the duodenal bulb where biopsies were taken as well -Colonoscopy showed fair prep with 3 bleeding angiodysplastic lesions that were treated with heater probe and diverticulosis in the rectosigmoid and sigmoid colon along with patchy moderate inflammation at the sigmoid colon, ascending colon, cecum secondary to colitis this area was biopsied, stricture was noted in the terminal ileum that was biopsied -Continue Protonix 40 twice daily -Hold cilostazol -Restart Plavix -Restart aspirin -Restart rivaroxaban -GI following-appreciate input Right lower lobe pneumonia/right pleural effusion -Continue levofloxacin -Patient has now been afebrile for 24 hours -Sputum culture was sent earlier this morning -Continue chest vest/aggressive pulmonary toilet/I-S/Acapella -Suspect pleural effusion is parapneumonic--> lab data depending on fluid and will calculate light criteria -Thoracentesis performed for removal of 550 cc of fluid from the right lung Hypoxia -Secondary above -Has been weaned to 2 L -Treatment as above Peripheral vascular disease -Status post right to left femorofemoral bypass on 01/21/2024 which was performed secondary to 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 -Claudication symptoms had resolved -Patient has been restarted on her aspirin, Plavix, rivaroxaban and still holding cilostazol--> GI would like to discontinue this--> will discuss with vascular surgery -Plan from vascular surgery is to continue this until 6 months postoperatively and then consider changing rivaroxaban to 2.5 mg daily with a single antiplatelet agent -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 twice daily -Continue outpatient follow-up with vascular surgery COPD -Continue home inhalers -As needed albuterol Tobacco abuse -Highly recommend cessation Obesity -BMI 32.4 -Complicates treatment, prognosis, outcomes -Recommend weight loss DVT prophylaxis -Restart home Xarelto CODE STATUS -Full code Medications at Discharge Home Medications acetaminophen 650 mg tablet,extended release (Tylenol Arthritis Pain) 650 mg PO Q6H PRN Pain 06/25/18 albuterol sulfate 90 mcg/actuation aerosol inhaler 2 puff inhalation Q6H PRN shortness of breath or wheezing 01/08/24 amlodipine 5 mg tablet 5 mg PO DAILY 01/08/24 aspirin 81 mg tablet,delayed release 81 mg PO DAILY 01/08/24 budesonide-formoterol HFA 160 mcg-4.5 mcg/actuation aerosol inhaler 2 puff inhalation BID 01/08/24 rosuvastatin 10 mg tablet 10 mg PO DAILY 01/08/24 rivaroxaban 2.5 mg tablet (Xarelto) 2.5 mg PO BID #60 tabs 01/22/24 cilostazol 50 mg tablet 50 mg PO BID #60 tabs 02/11/24 clopidogrel 75 mg tablet (Plavix) 75 mg PO DAILY #30 tabs 02/11/24 cholecalciferol (vitamin D3) 1,250 mcg (50,000 unit) capsule 1,250 mcg PO TH 05/03/24 levofloxacin 750 mg tablet 750 mg PO DAILY #4 tabs 05/10/24 pantoprazole 40 mg tablet,delayed release (Protonix) 40 mg PO DAILY #30 tabs 05/10/24 Hospital Course Procedures 2-D Echocardiogram, Blood transfusion, Colonoscopy, EGD, Thoracentesis and - (Chest x-ray/CTA chest) Summary of Care Provided Minutes Spent on Discharge: 48 Hospital Course: Mrs. Macedo is a 68-year-old white female who came to the emergency department [facility] on 05/03/2024 after being found to have an extremely low hemoglobin as an outpatient. She has a history of peripheral vascular disease and had a femoropopliteal bypass about 3 months ago and has been on antiplatelet therapy. As an outpatient she was found to have a hemoglobin of 3.5 so referred to the emergency department. Outpatient symptoms have included fatigue and weakness as well as shortness of breath with exertion. She denied any obvious bleeding including hematemesis, hematochezia or melena and had no dark tarry stools. She also denied any hematuria, vaginal bleeding or hemoptysis. Vital signs on presentation showed a temperature of 98.5, heart rate 143, blood pressure is 124/61, respiratory rate was 24 and oxygen saturations were 90% on room air. CBC had normal white count but hemoglobin of 3.5 that was microcytic in nature. Platelet count was normal. Her chemistry panel was unremarkable with a normal BUN/creatinine ratio with a BUN of 8 and a creatinine of 0.82. Lactic acid was 2.8. Iron studies were markedly consistent with iron deficiency having an iron of 10, iron saturation of 2.1 and a ferritin of 2 and a TIBC of 487. Type and cross was performed and she was transfused 4 units of packed red blood cells and admitted to the ICU given her marked anemia on presentation. Occult stool was positive. After transfusion her hemoglobin improved and she was feeling better. She was stable enough for transfer to the floor. Echocardiogram was done on presentation with her shortness of breath and demonstrated an EF of 60% with no wall motion abnormalities. Gastroenterology was consulted and initially was going to take her for EGD on the however patient developed a fever and some shortness of breath. Chest x-ray was consistent with pneumonia and a BNP was obtained and slightly elevated. She was treated with some Lasix as well as started on antibiotics for suspected right lower lobe pneumonia. All other infectious workup was unremarkable. She did stabilize and was taken for an EGD on 05/06/2024 which demonstrated grade 2 esophageal varices, 2 bleeding angiodysplastic lesions in the stomach that were treated with heater probe as well as erythematous mucosa in the antrum and duodenum both of which were biopsied. Biopsies were pending at the time of discharge. Her colonoscopy showed fair prep with 3 bleeding colonic angiodysplastic lesions that were treated with heater probe as well as diverticulosis in the rectosigmoid and sigmoid colon as well as patchy moderate inflammation in the sigmoid colon, ascending colon and cecum consistent with colitis. Colitis was felt to be ischemic. This area was biopsied. She was also found of a stricture in the terminal ileum which was biopsied. Again, biopsy results were pending at the time of discharge. Her oxygenation slightly worsened so she was sent for CTA of her chest was unremarkable for any PE or dissection however did show consolidation in the right lower lobe effusion. Thoracentesis was ordered and performed on 05/09/2020 for further removal of 550 cc of transudative fluid. I suspect this is likely parapneumonic effusion. Patient does have some electrolyte abnormalities during her hospital course which were replaced during her hospital course. I would recommend that she have a follow-up BMP done within the next week as well as a CBC to ensure that her hemoglobin remained stable. She has been stable here despite being restarted on her aspirin, Plavix, and Xarelto. She will restart her Pletal in 2 weeks. I have advised her to follow-up with her primary care physician within the next week, she already has a follow-up appointment set up with pulmonary medicine in September, she is to call Dr. Kincaid's office to set a hospital follow-up appointment to be seen within the next 1 month as his availability allows and with Dr. Frost as previously scheduled. She will need outpatient capsule endoscopy after discharge with Dr. Kincaid. Home O2 eval was done prior to discharge and she did not require any supplemental oxygen at the time of discharge. She does have oxygen to wear at night and have advised her to continue to do this. Prescriptions for Levaquin for 4 more days as well as Protonix 40 mg daily were sent to local pharmacy at the time of discharge. Discharge diagnoses: Acute on chronic iron deficiency anemia secondary to GI bleed with acute blood loss Right lower lobe pneumonia Right pleural effusion Acute hypoxia-resolved Peripheral vascular disease Hypokalemia-replaced Hyperlipidemia Hypertension Vitamin D deficiency Bilateral carotid artery stenosis COPD Tobacco abuse Obesity Physical Exam Const alert, oriented x3, no apparent distress, no limitations and well nourished; Negative for average body habitus or healthy appearing Constitutional Narrative: Obese, upper middle-aged, white female, sitting up in a chair at the bedside, appears older than stated age, appears comfortable, appears comfortable, nontoxic, family at bedside General Appearance: cooperative, comfortable, well kempt and well developed Orientation / Consciousness: awake, oriented to person, oriented to place and oriented to time Exam Limitations: no limitations Nutritional Appearance: obese HEENT normocephalic, head/scalp atraumatic, hearing grossly normal bilaterally and moist oral mucous membranes HEENT Narrative: Mallampati 3, no thrush, enlarged tongue Eyes PERRL and EOMs intact bilaterally; Negative for conjunctivae normal Eyes Narrative: Marked conjunctival pallor bilaterally, no scleral icterus Neck no lymphadenopathy and supple Neck Narrative: Trachea midline, no thyroid enlargement Resp normal respiratory effort, no retractions, no use of accessory muscles and clear to auscultation bilaterally Resp Narrative: Aeration right base remains improved Auscultation: Negative for rales, rhonchi or wheezes Cardio regular rate, regular rhythm, S1 normal heart sound, S2 normal heart sound, no murmurs, no rub, no gallops and no clicks GI normal to inspection, nondistended, normoactive bowel sounds, soft to palpation and non-tender Extremity no clubbing, cyanosis or edema Extremity Narrative: Pedal and radial pulses are 2+ Skin no rashes or lesions noted, no wounds, skin turgor normal, no jaundice, no petechiae and no mottling Neuro oriented x3, CN's II-XII intact bilaterally, moves all extremities and no focal motor deficits Neuro Narrative: Mild generalized weakness noted but no focal deficits Speech: speech normal Psych affect normal Psych Narrative: Eye contact is good and patient interacts appropriately Weight / BMI Weight Weight: 77.8 kg Body Mass Index (BMI) 32.3 ABG / Lab / Microbiology Data 05/10/24 06:41 05/10/24 11:51 Laboratory: Laboratory Results - last 24 hr 05/09/24 08:42: Fl Pathologist Comment Reviewed 05/10/24 06:41: WBC 7.0, RBC 3.63 L, Hgb 8.8 L, Hct 30.0 L, MCV 82.6, MCH 24.2 L , MCHC 29.3 L, RDW Std Deviation 59.7 H, RDW Coeff of Alfie 19.9 H, Plt Count 243, MPV 11.1, Immature Gran % (Auto) 0.600, Neut % (Auto) 78.1 H, Lymph % (Auto) 10.4 L, [place] % (Auto) 8.2, Eos % (Auto) 2.1, Baso % (Auto) 0.6, Absolute Neuts (auto) 5.5, Absolute Lymphs (auto) 0.73 L, Nucleated RBC % 0, Sodium 141, P otassium 2.6 L*, Chloride 100, Carbon Dioxide 39.0 H, Anion Gap 2 L, BUN 4 L, C reatinine 0.52 L, Estim Creat Clear Calc 65.30, Est GFR (MDRD) Af Amer 151, Est GFR (MDRD) Non-Af 125, BUN/Creatinine Ratio 7.7 L, Glucose 88, Calcium 8.7 05/10/24 11:51: Potassium 3.0 L Microbiology: Microbiology 05/05/24 10:30 Blood Culture (Wb) - Anticubital Left Blood Culture - Final No growth in 5 days. 05/05/24 10:30 Blood Culture (Wb) - Left Hand Blood Culture - Final No growth in 5 days. 05/09/24 08:42 Fluid - Thoracentesis Fluid Gram Stain - Final 05/09/24 08:42 Fluid - Thoracentesis Fluid Body Fluid Culture - Preliminary No growth-Final to follow 05/09/24 00:30 Sputum, Expectorated/Coughed Gram Stain - Final 05/09/24 00:30 Sputum, Expectorated/Coughed Respiratory Culture - Preliminary Appears to be normal respiratory mariola. Further studies to follow. 05/05/24 15:20 Urine, Random Legionella Antigen - Final 05/05/24 15:20 Urine, Random Streptococcus pneumoniae Antigen (M - Final 05/05/24 10:34 Mucosa - Nose Coronavirus COVID-19 PCR - Final 05/05/24 10:34 Mucosa - Nose Respiratory Panel (PCR) - Final 05/04/24 22:50 Stool Stool Occult Blood (MARTHA) - Final Occult Blood Positive D/C Instructions Discharge Diet: Low fat / Low cholesterol Discharge Activity: Return to Normal Activity Meaningful Use Info Meaningful Use Meaningful Use Diagnoses (Choose all that apply): None applicable Ischemic Stroke Statin Dosing Therapy Reference: STATIN DOSE THERAPY REFERENCE: * Patients > 75 years receive moderate or high dose statin therapy. * Patients 75 years or YOUNGER should receive HIGH intensity statin dose unless contraindicated. You will be required to document reason for non-treatment if statin daily dose does not meet guidelines. HIGH DOSE STATIN THERAPY DAILY Atorvastatin > than or = to 40 mg Rosuvastatin > than or = to 20 mg Amlodipine + Atorvastatin > than or = to 2.5/40 mg Ezetimibe + Simvastatin 10/80 mg Simvastatin 80mg Discharge Plan Admission Admit Date/Time: 05/03/24 14:46 Primary Reason for Your Visit: Preet hemsheyn Attending Provider: Belinda Baker Primary Care Provider: Vincent Ashley [employer] Consulting Providers: Robert Merritt Instructions Additional Instructions / Restrictions: 1. Please call your primary care physician and asked that a complete blood count and a basic metabolic profile to recheck your potassium level be done in the next 5 to 7 days Discharge Orders/Prescriptions Prescriptions: New levofloxacin 750 mg Tablet 750 mg PO DAILY Qty: 4 0RF pantoprazole [Protonix] 40 mg tablet,delayed release (DR/EC) 40 mg PO DAILY Qty: 30 2RF Continued acetaminophen [Tylenol Arthritis Pain] 650 mg tablet extended release 650 mg PO Q6H PRN (Reason: Pain) clopidogrel [Plavix] 75 mg tablet 75 mg PO DAILY Qty: 30 5RF amlodipine 5 mg tablet 5 mg PO DAILY aspirin 81 mg tablet,delayed release (DR/EC) 81 mg PO DAILY rosuvastatin 10 mg tablet 10 mg PO DAILY albuterol sulfate 90 mcg/actuation HFA aerosol inhaler 2 puff INHALATION Q6H PRN (Reason: shortness of breath or wheezing) budesonide-formoterol 160-4.5 mcg/actuation HFA aerosol inhaler 2 puff INHALATION BID cholecalciferol (vitamin D3) 1,250 mcg (50,000 unit) capsule 1,250 mcg PO TH Xarelto 2.5 mg tablet 2.5 mg PO BID Qty: 60 5RF Held cilostazol 50 mg tablet 50 mg PO BID Qty: 60 5RF Hold Instructions: Hold for 1 week then restart Patient Comments: has had 2 does already today Referrals / Follow Up: Danis Bustos DO [Med Staff - Active Staff] - See Referral Note (As scheduled for September appointment) Selvin Frost MD [Med Staff - Active Staff] - See Referral Note (As Scheduled) Adi Kincaid DO [Med Staff - Active Staff] - See Referral Note (Call tomorrow and set up an appointment for first availability and Dr. Kincaid's office) Vincent Ashley NP, [employer] [Primary Care Provider] - Within 1 Week Disposition Disposition (needs filled in before D/C Order can be placed): Home, Self Care Charges/Coding Visit Charges Inpatient E&M: 94144 Disch Hosp >30min
[2024-05-10 15:59] VITALS: BP 144/89; PULSE 100; RESP 18; TEMP 36.7; O2SAT 94
[2024-05-10 16:18] LABS: Bedside Glucose 92 mg/dL (74-106)
--- NOTE | 2024-05-10 17:38 | PN.GI_ITS ---
Subjective Subjective Patient is doing well and has regained her strength. She states that she wants to go home. Objective Data Objective Data Vital Signs: Vital Signs Temp Pulse Resp BP Pulse Ox O2 Del Method O2 Flow Rate 98.0 F 100 18 144/89 H 94 Room Air 3 05/10/24 15:59 05/10/24 15:59 05/10/24 15:59 05/10/24 15:59 05/10/24 15:59 05/10/24 15:59 05/10/24 09:00 FiO2 3 05/08/24 22:11 Oxygen Flow Rate (L/min) 3 Oxygen Delivery Method Room Air Weight: 171 lb 8.314 oz Body Mass Index (BMI) 32.3 Intake & Output: Intake and Output for Last 24 Hours 05/08/24 05/09/24 05/10/24 23:59 23:59 23:59 Intake Total 2920 / 2920 751.75 / 751.75 660 / 660 Output Total 1050 / 1600 1650 / 1650 400 / 400 Balance 1870 / 1320 -898.25 / -898.25 260 / 260 Lab / Micro Data 05/10/24 06:41 05/10/24 11:51 Labs: Laboratory Results - last 24 hr 05/09/24 08:42: Fl Pathologist Comment Reviewed 05/10/24 06:41: WBC 7.0, RBC 3.63 L, Hgb 8.8 L, Hct 30.0 L, MCV 82.6, MCH 24.2 L , MCHC 29.3 L, RDW Std Deviation 59.7 H, RDW Coeff of Alfie 19.9 H, Plt Count 243, MPV 11.1, Immature Gran % (Auto) 0.600, Neut % (Auto) 78.1 H, Lymph % (Auto) 10.4 L, [place] % (Auto) 8.2, Eos % (Auto) 2.1, Baso % (Auto) 0.6, Absolute Neuts (auto) 5.5, Absolute Lymphs (auto) 0.73 L, Nucleated RBC % 0, Sodium 141, P otassium 2.6 L*, Chloride 100, Carbon Dioxide 39.0 H, Anion Gap 2 L, BUN 4 L, C reatinine 0.52 L, Estim Creat Clear Calc 65.30, Est GFR (MDRD) Af Amer 151, Est GFR (MDRD) Non-Af 125, BUN/Creatinine Ratio 7.7 L, Glucose 88, Calcium 8.7 05/10/24 11:15: POC Glucose 92 05/10/24 11:51: Potassium 3.0 L Micro: Microbiology 05/05/24 10:30 Blood Culture (Wb) - Anticubital Left Blood Culture - Final No growth in 5 days. 05/05/24 10:30 Blood Culture (Wb) - Left Hand Blood Culture - Final No growth in 5 days. 05/09/24 08:42 Fluid - Thoracentesis Fluid Gram Stain - Final 05/09/24 08:42 Fluid - Thoracentesis Fluid Body Fluid Culture - Preliminary No growth-Final to follow 05/09/24 00:30 Sputum, Expectorated/Coughed Gram Stain - Final 05/09/24 00:30 Sputum, Expectorated/Coughed Respiratory Culture - Preliminary Appears to be normal respiratory mariola. Further studies to follow. 05/05/24 15:20 Urine, Random Legionella Antigen - Final 05/05/24 15:20 Urine, Random Streptococcus pneumoniae Antigen (M - Final 05/05/24 10:34 Mucosa - Nose Coronavirus COVID-19 PCR - Final 05/05/24 10:34 Mucosa - Nose Respiratory Panel (PCR) - Final 05/04/24 22:50 Stool Stool Occult Blood (MARTHA) - Final Occult Blood Positive Rhythm Strip Rhythm Strip: Sinus Tach Rate: 141 Ectopy: None Physical Exam Const alert, oriented x3, no apparent distress, no limitations and well nourished; Negative for average body habitus or healthy appearing Constitutional Narrative: Obese, upper middle-aged, white female, sitting up in a chair at the bedside, appears older than stated age, appears comfortable, appears comfortable, nontoxic, family at bedside General Appearance: cooperative, comfortable, well kempt and well developed Orientation / Consciousness: awake, oriented to person, oriented to place and oriented to time Exam Limitations: no limitations Nutritional Appearance: obese HEENT normocephalic, head/scalp atraumatic, hearing grossly normal bilaterally and moist oral mucous membranes HEENT Narrative: Mallampati 3, no thrush, enlarged tongue Eyes PERRL and EOMs intact bilaterally; Negative for conjunctivae normal Eyes Narrative: Marked conjunctival pallor bilaterally, no scleral icterus Neck no lymphadenopathy and supple Neck Narrative: Trachea midline, no thyroid enlargement Resp normal respiratory effort, no retractions, no use of accessory muscles and clear to auscultation bilaterally Resp Narrative: Aeration right base remains improved Auscultation: Negative for rales, rhonchi or wheezes Cardio regular rate, regular rhythm, S1 normal heart sound, S2 normal heart sound, no murmurs, no rub, no gallops and no clicks GI normal to inspection, nondistended, normoactive bowel sounds, soft to palpation and non-tender Extremity no clubbing, cyanosis or edema Extremity Narrative: Pedal and radial pulses are 2+ Skin no rashes or lesions noted, no wounds, skin turgor normal, no jaundice, no petechiae and no mottling Neuro oriented x3, CN's II-XII intact bilaterally, moves all extremities and no focal motor deficits Neuro Narrative: Mild generalized weakness noted but no focal deficits Speech: speech normal Psych affect normal Psych Narrative: Eye contact is good and patient interacts appropriately Assessment & Plan Assessment/Plan (1) Colitis: (2) AVM (arteriovenous malformation): (3) Symptomatic anemia: (4) Iron (Fe) deficiency anemia: PLAN: Plan This 68-year-old female is being admitted for severe anemia, hemoglobin 3.5 on an outpatient lab. Acute severe symptomatic anemia: Patient last H&H 9.7/31% in January 2024. However back in October her hemoglobin was 12.4. Today her hemoglobin and hematocrit is 3.5/13.7%. Platelet count. 569,000. White count normal. Twelve-lead EKG shows sinus tachycardia 121 bpm, QTc 443 ms. Differential diagnosis for acute blood loss anemia would be peptic ulcer disease, gastric antral vascular ectasia, angiodysplasia, neoplasia, celiac disease. Acute on chronic iron deficiency anemia: Iron profile shows serum iron 10, TIBC elevated 497, iron saturation 2.1%. Ferritin 2, consistent with iron deficiency anemia. Stool for occult blood ordered. Empirically started on pantoprazole 40 mg q. 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 Patient had office visit on 03/21/2024 and found well-healed incision site. Patient on aspirin 81 mg daily, Plavix 75 mg daily and Xarelto 2.5 mg twice daily. Outpatient office plan was to continue for 6 months and then Xarelto 2.5 mg with single antiplatelet agent. Continue to hold all 3 antiplatelet/anticoagulant agent unless vascular surgery says to continue medicines. She will undergo EGD and colonoscopy. She has not had a colonoscopy in the past. She was explained alternatives, risk, benefits including not withstanding bleeding, infection, sepsis, perforation, need for emergent surgery and . She will have an ASA of 3. 05/05/2024-the plan is to perform her EGD and colonoscopy tomorrow unless primary service wants to hold off. Continue to hold anticoagulation and antiplatelet therapy. 05/06/2024-upper endoscopy findings: Grade I varices were found in the upper third of the esophagus. They were 5 mm in largest diameter. Two 5 mm angiodysplastic lesions with bleeding were found in the gastric body. Coagulation for hemostasis using heater probe was successful. Estimated blood loss was minimal. Localized mildly erythematous mucosa without bleeding was found in the gastric antrum. Biopsies were taken with a cold forceps for histology. Verification of patient identification for the specimen was done. Biopsies were taken with a cold forceps for Helicobacter pylori testing. Verification of patient identification for the specimen was done. Estimated blood loss was minimal. Patchy mildly erythematous mucosa without active bleeding and with no stigmata of bleeding was found in the duodenal bulb. Biopsies were taken with a cold forceps for histology. Verification of patient identification for the specimen was done. Estimated blood loss was minimal. A small hiatal hernia was present. Impression: - Grade I esophageal varices. - Two bleeding angiodysplastic lesions in the stomach. Treated with a heater probe. - Erythematous mucosa in the antrum. Biopsied. - Erythematous duodenopathy. Biopsied. Recommendation: - [facility] care. - Resume regular diet. - Continue present medications. - Await pathology results. - Repeat upper endoscopy. - Her upper esophageal varices are not associated with liver disease. They are associated with respiratory disease. Colonoscopy findings: The perianal and digital rectal examinations were normal. Three medium-sized localized angiodysplastic lesions with bleeding were found in the recto-sigmoid colon and in the sigmoid colon. Coagulation for hemostasis using heater probe was successful. Estimated blood loss was minimal. A few small-mouthed diverticula were found in the recto-sigmoid colon and sigmoid colon. Stool was found in the sigmoid colon, in the transverse colon and in the ascending colon. Patchy moderate inflammation characterized by erythema, friability and granularity was found in the sigmoid colon, in the ascending colon and in the cecum. Biopsies were taken with a cold forceps for histology. Verification of patient identification for the specimen was done. Estimated blood loss was minimal. The terminal ileum contained a benign-appearing, intrinsic moderate stenosis that was non-traversed. Biopsies were taken with a cold forceps for histology. Verification of patient identification for the specimen was done. Estimated blood loss was minimal. Impression: - Preparation of the colon was fair. - Three bleeding colonic angiodysplastic lesions. Treated with a heater probe. - Diverticulosis in the recto-sigmoid colon and in the sigmoid colon. - Stool in the sigmoid colon, in the transverse colon and in the ascending colon. - Patchy moderate inflammation was found in the sigmoid colon, in the ascending colon and in the cecum secondary to colitis. Biopsied. - Stricture in the terminal ileum. Biopsied. Recommendation: - [facility] care. - Resume regular diet. - Continue present medications. - Await pathology results. - Repeat colonoscopy in 5 years for surveillance based on pathology results. Check blood work for inflammatory bowel disease. Since she had so many angiodysplastic lesions she will need a capsule endoscopy. 05/09/2024-her INR is 1.2 with a PT of 15.3. BUN/creatinine ratio is improved. Hemoglobin seems to be stable at 8.2 two days in a row. Patient being started back on antiplatelet anticoagulation while she is in the hospital. She will still need capsule endoscopy as an outpatient. 05/10/2024 her INR continues to increase mildly to 1.3. BUN to creatinine ratio still the same. Her hemoglobin is up even further to 9.2. She is back on anticoagulation without any signs of acute or chronic GI bleeding. She is tolerating a diet. Please have patient follow-up in 2 weeks for capsule endoscopy. Charges/Coding Visit Charges Inpatient E&M: 56650 Subs Hosp L3
== END 2024-05-10 15:59 | disposition home or self-care (01) | DRG 377 ==
LOC: ED 14:43 → ICU 15:37 → MS3 05-04 21:58
PROVIDERS: Anesthesiology; Internal Medicine Gastroenterology; Admitting Provider Internal Medicine; Emergency Provider Emergency Medicine; PCP Nurse Practitioner Family; Visit Provider Internal Medicine
PROC: 0DJD8ZZ Inspection of Lower Intestinal Tract, Via Natural or Artificial Opening Endoscopic (ICD-10-PCS; CPT 45378; principal; 2024-05-06 11:55)
DX: K31.811 Angiodysplasia of stomach and duodenum with bleeding (principal); J18.9 Pneumonia, unspecified organism; E87.20 Acidosis, unspecified; D62 Acute posthemorrhagic anemia; J90 Pleural effusion, not elsewhere classified; J44.0 Chronic obstructive pulmonary disease with (acute) lower respiratory infection; Q27.30 Arteriovenous malformation, site unspecified; K55.21 Angiodysplasia of colon with hemorrhage; I85.00 Esophageal varices without bleeding; D50.9 Iron deficiency anemia, unspecified; I10 Essential (primary) hypertension; I65.23 Occlusion and stenosis of bilateral carotid arteries; I73.9 Peripheral vascular disease, unspecified; E55.9 Vitamin D deficiency, unspecified; E78.5 Hyperlipidemia, unspecified; E87.6 Hypokalemia; K57.30 Diverticulosis of large intestine without perforation or abscess without bleeding; K52.9 Noninfective gastroenteritis and colitis, unspecified; E66.9 Obesity, unspecified; R00.0 Tachycardia, unspecified; Z51.5 Encounter for palliative care; Z87.891 Personal history of nicotine dependence; Z66 Do not resuscitate; Z79.02 Long term (current) use of antithrombotics/antiplatelets; Z79.01 Long term (current) use of anticoagulants; Z95.828 Presence of other vascular implants and grafts; R09.02 Hypoxemia; Z68.33 Body mass index [BMI] 33.0-33.9, adult; R50.9 Fever, unspecified
CPT/HCPCS: 32555; 36415; 71045; 71046; 71275; 80048; 80053; 80061; 80076; 80202; 81001; 82043; 82274; 82306; 82570; 82728; 82945; 82962; 83540; 83550; 83605; 83615; 83735; 83880; 83970; 84100; 84132; 84157; 84244; 84443; 85014; 85018; 85025; 85027; 85610; 85730; 86644; 86850; 86900; 86901; 86920; 86922; 87040; 87070; 87075; 87205; 87449; 87633; 87635; 87641; 88108; 88305; 88312; 88313; 88341; 88342; 89050; 93005; 93308; 94640; 94667; 94668; 94762; 97110; 97116; 97162; 97166; 97530; 97535; 99285; 99406; J7030; J7050; J7120; P9016; Q9967; A4216; J0295; J1940; J2405

== ENCOUNTER → 2024-05-03 | Outpatient (CLI) | payer MEDICARE, SELFPAY ==
[2024-05-03 11:00] LABS: Hematocrit 13.7 % (37-47); Mean Corp Hgb Conc 25.5 g/dL (32-36); Mean Corpuscular Hgb 19.8 pg (27.0-32.0); Mean Corpuscular Volume 77.4 fL (81-99); Mean Platelet Vol. 10.5 fl (6.2-12.0); POSITIVE COUNT YES; Platelet Count 359 K/mm3 (150-450); RBC Distribution Width CV 18.4 % (11.6-14.6); RBC Distribution Width SD 51.4 fl (35.1-43.9); Red Blood Count 1.77 M/mm3 (4.2-5.4); White Blood Count 7.3 K/mm3 (4.4-11.0)
[2024-05-03 11:20] LABS: Vitamin D,25 Hydroxy 73.7 ng/mL
[2024-05-03 11:23] LABS: PTHIN 134.4 pg/mL (18.4-80.1)
[2024-05-03 11:26] LABS: ALB/GLOB Ratio 0.8 RATIO (0.9-2.4); AST(SGOT) 12 U/L (15-37); Alanine Aminotransfer ALT/SGPT 17 U/L (13-56); Albumin, Serum 2.9 g/dL (3.2-5.0); Alkaline Phosphatase 84 U/L (45-117); Anion Gap 7 (5-15); BUN 8 mg/dL (7-18); BUN/Creat Ratio 9.8 RATIO (10-20); Chloride 107 mmol/L (98-107); Cholesterol 96 mg/dL (200); Creatinine, Serum 0.82 mg/dL (0.55-1.02); EST Glomerular Filtration Rate 75 mL/min (>60); Est Glom Filt Rate - Afr Amer 90 mL/min (>60); Globulin 3.6 g/dL (2.2-4.2); Glucose 93 mg/dL (74-106); High Density Lipoprotein 46 mg/dL; Potassium 3.8 mmol/L (3.5-5.1); Protein, Total 6.5 g/dL (6.4-8.2); Sodium Level 139 mmol/L (136-145); Triglycerides 53 mg/dL; Very Low Density Lipoprotein 11 mg/dL (5-40)
[2024-05-03 11:30] LABS: Scan Indicated on CBC? Y/N YES- FLAGS NOTED
[2024-05-03 11:31] LABS: Microalbumin:Creatinine Ratio 326.3 mg/g CRE (<30 mg/g CRE)
[2024-05-03 11:34] LABS: Hemoglobin 3.5 g/dL (12.0-15.0)
[2024-05-04 14:34] LABS: Pathologist Review May foll
[2024-05-07 00:07] LABS: Renin, Plasma 4.548 ng/mL/hr (0.167-5.380)
== END | disposition home or self-care (01) ==
LOC: LAB 09:37
PROVIDERS: PCP Nurse Practitioner Family; Referring Provider Nurse Practitioner Family; Visit Provider Nurse Practitioner Family
DX: I12.9 Hypertensive chronic kidney disease with stage 1 through stage 4 chronic kidney disease, or unspecified chronic kidney disease (principal); N18.30 Chronic kidney disease, stage 3 unspecified; E78.5 Hyperlipidemia, unspecified; I73.9 Peripheral vascular disease, unspecified; E55.9 Vitamin D deficiency, unspecified
CPT/HCPCS: 36415; 80053; 80061; 82043; 82306; 82570; 83970; 84244; 85027

== ENCOUNTER 2024-05-18 10:43 | Inpatient (IN) | payer MEDICARE, SELFPAY ==
[2024-05-18] VITALS (14 sets, daily range): BP systolic 106–143; BP diastolic 58–81; PULSE 102–134; RESP 16–28; TEMP 36–37.3; O2SAT 83–97; BMI 27.6; BMI 28.0
--- NOTE | 2024-05-18 10:55 | EX.ED.DYSGE1 ---
HPI History of Present Illness Chief Complaint: GI Bleed [facility] Medical History Atherosclerosis of [place] arteries of extremities with gangrene, left leg Carotid stenosis, bilateral Tobacco abuse Peripheral arterial occlusive disease Cervical cancer PVD (peripheral vascular disease) Arthritis Home Medications ?Medication ?Instructions ?Recorded ?Last Taken ?Type acetaminophen 650 mg 650 mg PO Q6H PRN Pain 06/25/18 Unknown History tablet,extended release (Tylenol Arthritis Pain) albuterol sulfate 90 mcg/actuation 2 puff inhalation Q6H PRN 01/08/24 Unknown History aerosol inhaler shortness of breath or wheezing amlodipine 5 mg tablet 5 mg PO DAILY 01/08/24 05/03/24 History aspirin 81 mg tablet,delayed 81 mg PO DAILY 01/08/24 05/03/24 History release budesonide-formoterol HFA 160 2 puff inhalation BID 01/08/24 Unknown History mcg-4.5 mcg/actuation aerosol inhaler rosuvastatin 10 mg tablet 10 mg PO DAILY 01/08/24 05/03/24 History rivaroxaban 2.5 mg tablet (Xarelto) 2.5 mg PO BID #60 tabs 01/22/24 05/03/24 Rx cilostazol 50 mg tablet 50 mg PO BID #60 tabs 02/11/24 05/03/24 Rx clopidogrel 75 mg tablet (Plavix) 75 mg PO DAILY #30 tabs 02/11/24 05/03/24 Rx cholecalciferol (vitamin D3) 1,250 1,250 mcg PO TH 05/03/24 Unknown History mcg (50,000 unit) capsule levofloxacin 750 mg tablet 750 mg PO DAILY #4 tabs 05/10/24 Unknown Rx pantoprazole 40 mg tablet,delayed 40 mg PO DAILY #30 tabs 05/10/24 Unknown Rx release (Protonix) Allergy/AdvReac Type Severity Reaction Status Date / Time No Known Allergies Allergy Verified 05/18/24 10:43 Family History Mother Breast cancer Surgical History S/P LEFT ARTERIOGRAM Social History Smoking Status: Light Smoker (<10/day) alcohol intake: never substance use type: does not use EXAM Physical Exam Const Vital Signs: 05/18/24 10:43 Temperature 96.8 F L Temperature Source Temporal Pulse Rate 134 H Respiratory Rate 18 Blood Pressure 143/71 H Blood Pressure Mean 95 Pulse Ox 97 Oxygen Delivery Method Room Air [facility] [place] Narr[place] Medical decision making narrative: HISTORY OF PRESENT ILLNESS: 68-year-old female presents with concern for black stool. Notes she was discharged 1 week ago for similar. She further states she noticed dark discoloration of her stool this morning. She was told if she develop any of the symptoms she will come to the ED. She denies lightheadedness, weakness, fatigue, shortness of breath, chest pain or palpitations. Notes she is compliant with Xarelto. Last dose was this morning. REVIEW OF SYSTEMS: Pertinent positives: Black stools Pertinent negatives:lightheadedness, weakness, fatigue, shortness of breath, chest pain or palpitations. PHYSICAL EXAM: Nursing triage notes reviewed, Vital signs reviewed Constitutional: please see mdm HENT: MMM Eyes: Pupils equal round and reactive to light, Extraocular muscles intact Neck: No stridor, no JVD, full neck ROM Lungs: Clear to auscultation, No wheezing or rales. No increased work of breathing, no conversational dyspnea, no accessory muscle use, no nasal flaring. No respiratory distress noted Heart: Regular rate and rhythm, No murmurs, No rubs and No gallops, 2+ distal pulses (radial, femoral, posterior tibial) in all extremities Abdomen: Soft, there is no tenderness, rigidity, rebound or guarding, no obvious peritoneal signs, no palpable pulsatile abdominal masses, no auscultated abdominal bruit : No CVAT Rectal: Performed job site supervisor present, (Jenn GÓMEZ) Extremities: No edema Neuro: No focal neurological deficits, cranial nerves II through XII intact, 5/5 strength in all extremities. Intact sensation to light touch in all extremities, 2+ reflexes bilateral patella tendons. Normal gait. No ataxia. Skin: No rash or lesions noted MEDICAL DECISION MAKING: Chief Complaint: Black stools External records reviewed: Recent hospital admission from 05/03/2024 until 05/10/2024. At this time patient had colitis, AV malformation, significant anemia due to iron deficiency hemoglobin baseline was documented to be 9010 initially 3.5 underwent 4 unit blood transfusion was admitted, underwent EGD on 04/16/2024 this demonstrated grade 1 esophageal varices and 2 angiodysplastic lesions in the gastric body, colonoscopy was undertaken as well. GI consultation was obtained. Factors affecting care: Peripheral vascular disease, tobacco abuse, colitis, iron deficiency anemia, cervical cancer Xarelto secondary to Social determinants of health: Tobacco abuse History obtained from others: the patient's sister Consults: GI (Dr. Kincaid), Internal medicine (Dr. Chavez) MDM Narrative: Patient was initially tachycardic (134) otherwise hemodynamically stable afebrile nontoxic-appearing. Exam without focal cardiopulmonary normalities. Rectal exam without evidence of active bleeding, hemorrhoids or fissures. I considered the following differential diagnosis: GI bleed, acute blood loss anemia, I obtained a broad lab and imaging workup to further elucidate etiology patient complaint. ALL IMAGES (IF OBTAINED) HAVE BEEN PERSONALLY REVIEWED AND INTERPRETED BY MYSELF. CBC with no leukocytosis, noted chronic anemia (baseline hemoglobin between 9 and 10, down by approximately 1 g/dL over the last 8 days) no thrombocytopenia noted Hemoccult positive At this point given decrease in hemoglobin, evidence of active GI bleed with a positive Hemoccult, tachycardia and recent diagnosis of esophageal varices I reach out to her GI doctor. Heart is repeated is now 102. GI recommended admission for urgent GI intervention. Discussed case hospitalist who agreed to admit the patient. The patient and/or family, caregivers express understanding. The patient and/or family, caregivers agrees with the plan. Shared decision making: I will have a discussion with the patient and or visitors regarding risk/benefits of further testing or admission. They will be made aware of of the risk/benefits inherent in this decision they will be given the opportunity to voice understanding. Total critical care time today provided was at least 0 minutes. This excludes separately billable procedures. Critical care time (if documented) is secondary to the patient having high probability of clinically significant/life threatening deterioration in the patient's condition which required my urgent intervention. Impression: 1. GI bleed 2. Acute blood loss anemia 3. History of esophageal varices 4. History of anticoagulation Dispo: Admit to PCU (Discussed with Dr. Chavez) This note was generated with Dragon dictation software. It may contain incorrect words, spelling, and punctuation that were not noted in review of the chart prior to signing. Lab Data Labs: Laboratory Results - last 24 hr 05/18/24 11:06 WBC 8.5 RBC 3.36 L Hgb 8.0 L Hct 27.8 L MCV 82.7 MCH 23.8 L MCHC 28.8 L RDW Std Deviation 63.3 H RDW Coeff of Alfie 21.0 H Plt Count 523 H MPV 9.7 Immature Gran % (Auto) 0.600 Neut % (Auto) 72.8 H Lymph % (Auto) 15.4 L [place] % (Auto) 8.7 Eos % (Auto) 1.6 Baso % (Auto) 0.9 Absolute Neuts (auto) 6.2 Absolute Lymphs (auto) 1.31 Nucleated RBC % 0 Anisocytosis 2+ Sodium 138 Potassium 3.9 Chloride 106 Carbon Dioxide 23.0 Anion Gap 9 BUN 10 Creatinine 0.76 Estim Creat Clear Calc 62.68 Est GFR (MDRD) Af Amer 98 Est GFR (MDRD) Non-Af 81 BUN/Creatinine Ratio 13.2 Glucose 94 Calcium 8.8 Total Bilirubin 0.40 AST 33 ALT 37 Alkaline Phosphatase 78 Total Protein 6.6 Albumin 3.1 L Globulin 3.5 Albumin/Globulin Ratio 0.9 Antibody Screen NEGATIVE Discharge Plan Triage Chief Complaint: GI Bleed ED Provider: Tashi Medina Dx/Rx/DC Orders Prescriptions: No Action acetaminophen [Tylenol Arthritis Pain] 650 mg tablet extended release 650 mg PO Q6H PRN (Reason: Pain) clopidogrel [Plavix] 75 mg tablet 75 mg PO DAILY Qty: 30 5RF cilostazol 50 mg tablet 50 mg PO BID Qty: 60 5RF Patient Comments: has had 2 does already today amlodipine 5 mg tablet 5 mg PO DAILY aspirin 81 mg tablet,delayed release (DR/EC) 81 mg PO DAILY rosuvastatin 10 mg tablet 10 mg PO DAILY albuterol sulfate 90 mcg/actuation HFA aerosol inhaler 2 puff INHALATION Q6H PRN (Reason: shortness of breath or wheezing) budesonide-formoterol 160-4.5 mcg/actuation HFA aerosol inhaler 2 puff INHALATION BID cholecalciferol (vitamin D3) 1,250 mcg (50,000 unit) capsule 1,250 mcg PO TH levofloxacin 750 mg Tablet 750 mg PO DAILY Qty: 4 0RF pantoprazole [Protonix] 40 mg tablet,delayed release (DR/EC) 40 mg PO DAILY Qty: 30 2RF Xarelto 2.5 mg tablet 2.5 mg PO BID Qty: 60 5RF Primary Care Provider: Vincent Ashley NP Referrals: Vincent Ashley EDUCATIONAL INTERPRETER, EDUCATIONAL INTERPRETER-C [Primary Care Provider] - Print Language: Korean
[2024-05-18 11:17] LABS: Absolute Lymphocyte Count 1.31 X10^3/uL (0.83-4.51); Absolute Neutrophil Count 6.2 X10^3/uL (2.0-7.7); Basophil# 0.08 X10^3/uL; Basophil% 0.9 % (0-1); Eosinophil# 0.14 X10^3/uL; Eosinophils% 1.6 % (0-5); Hematocrit 27.8 % (37-47); Lymphocyte # 1.31 X10^3/ul (0.83-4.51); Lymphocyte % 15.4 % (19-41); Mean Corp Hgb Conc 28.8 g/dL (32-36); Mean Corpuscular Hgb 23.8 pg (27.0-32.0); Mean Corpuscular Volume 82.7 fL (81-99); Mean Platelet Vol. 9.7 fl (6.2-12.0); Monocyte# 0.74 X10^3/uL; Monocyte% 8.7 % (0-10); NRBC Flagged by Analyzer 0 % (0-5); Neutrophil # 6.17 X10^3/uL (2.7-7.7); Neutrophil % 72.8 % (47-70); POSITIVE MORPHOLOGY YES; Platelet Count 523 K/mm3 (150-450); RBC Distribution Width SD 63.3 fl (35.1-43.9); Red Blood Count 3.36 M/mm3 (4.2-5.4); White Blood Count 8.5 K/mm3 (4.4-11.0)
[2024-05-18 11:21] LABS: Differential Indicated SCAN CRITERIA MET
[2024-05-18 11:36] LABS: ALB/GLOB Ratio 0.9 RATIO (0.9-2.4); AST(SGOT) 33 U/L (15-37); Alanine Aminotransfer ALT/SGPT 37 U/L (13-56); Albumin, Serum 3.1 g/dL (3.2-5.0); Alkaline Phosphatase 78 U/L (45-117); Anion Gap 9 (5-15); BUN 10 mg/dL (7-18); BUN/Creat Ratio 13.2 RATIO (10-20); Calcium,Total 8.8 mg/dL (8.5-10.1); Chloride 106 mmol/L (98-107); Creatinine, Serum 0.76 mg/dL (0.55-1.02); EST Glomerular Filtration Rate 81 mL/min (>60); Est Glom Filt Rate - Afr Amer 98 mL/min (>60); Estimated Creatinine Clearance 62.68 ml/min; Globulin 3.5 g/dL (2.2-4.2); Glucose 94 mg/dL (74-106); Potassium 3.9 mmol/L (3.5-5.1); Protein, Total 6.6 g/dL (6.4-8.2); Sodium Level 138 mmol/L (136-145)
[2024-05-18 11:45] LABS: Anisocytosis 2+
--- NOTE | 2024-05-18 13:37 | PCM.HP.STD ---
HPI - General General Date of Admission: 05/18/24 HPI Narrative TONY BRADLEY, is a 68 F who presents to the hospital with black tarry stools. She was recently admitted and discharged on 04/20/2024 after she was found to have esophageal varices and 2 bleeding AVMs with no signs of ulcerations. She was gradually restarted on aspirin, Plavix, Xarelto 2.5 mg p.o. twice daily secondary to severe peripheral vascular disease. On discharge her hemoglobin was 8.8 and it is now down to 8.0 with concerns for possible rebleeding. She denies any lightheadedness or dizziness. She noticed the dark stools for the first time this morning. [facility] Medical History Atherosclerosis of [place] arteries of extremities with gangrene, left leg Carotid stenosis, bilateral Tobacco abuse Peripheral arterial occlusive disease Cervical cancer PVD (peripheral vascular disease) Arthritis Home Medications ?Medication ?Instructions ?Recorded ?Last Taken ?Type acetaminophen 650 mg 650 mg PO Q6H PRN Pain 06/25/18 Unknown History tablet,extended release (Tylenol Arthritis Pain) albuterol sulfate 90 mcg/actuation 2 puff inhalation Q6H PRN 01/08/24 Unknown History aerosol inhaler shortness of breath or wheezing amlodipine 5 mg tablet 5 mg PO DAILY 01/08/24 05/03/24 History aspirin 81 mg tablet,delayed 81 mg PO DAILY 01/08/24 05/03/24 History release budesonide-formoterol HFA 160 2 puff inhalation BID 01/08/24 Unknown History mcg-4.5 mcg/actuation aerosol inhaler rosuvastatin 10 mg tablet 10 mg PO DAILY 01/08/24 05/03/24 History rivaroxaban 2.5 mg tablet (Xarelto) 2.5 mg PO BID #60 tabs 01/22/24 05/03/24 Rx cilostazol 50 mg tablet 50 mg PO BID #60 tabs 02/11/24 05/03/24 Rx clopidogrel 75 mg tablet (Plavix) 75 mg PO DAILY #30 tabs 02/11/24 05/03/24 Rx cholecalciferol (vitamin D3) 1,250 1,250 mcg PO TH 05/03/24 Unknown History mcg (50,000 unit) capsule pantoprazole 40 mg tablet,delayed 40 mg PO DAILY #30 tabs 05/10/24 Unknown Rx release (Protonix) oxymetazoline 0.05 % nasal spray 2 spray intranasal BID PRN nasal 05/18/24 Unknown History (12 Hour Nasal Relief [place]) congestion Allergy/AdvReac Type Severity Reaction Status Date / Time No Known Allergies Allergy Verified 05/18/24 10:43 Family History Mother Breast cancer Surgical History S/P LEFT ARTERIOGRAM Social History Smoking Status: Light Smoker (<10/day) alcohol intake: never substance use type: does not use ROS Constitutional Constitutional: Denies chills, fatigue, fever(s) or malaise Eyes Eyes: Denies blurry vision ENT HEENT: Denies headache(s) or nasal discharge Cardiovascular Cardiovascular: Denies chest pain, dyspnea on exertion or syncope Respiratory/Chest Respiratory/Chest: Denies cough, shortness of breath at rest or shortness of breath with exertion Gastrointestinal Gastrointestinal: Reports melena; Denies abdominal pain, constipation, diarrhea, nausea or vomiting Genitourinary Genitourinary: Denies dysuria Neurologic Neurologic: Denies focal weakness, numbness or tremor(s) Psychiatric Psychiatric: Denies anxiety or depression Vital Signs Vital Signs Vital Signs: 05/18/24 10:43 05/18/24 12:33 05/18/24 12:34 Temperature 96.8 F L 96.8 F L Temperature Source Temporal Pulse Rate 134 H 102 H 102 H Respiratory Rate 18 16 16 Blood Pressure 143/71 H 124/64 H 124/64 H Blood Pressure Mean 95 84 84 Blood Pressure Source Blood Pressure Position Blood Pressure Location Pulse Ox 97 96 96 Oxygen Delivery Method Room Air Room Air 05/18/24 13:18 Temperature 98.3 F Temperature Source Oral Pulse Rate 106 H Respiratory Rate 17 Blood Pressure 106/81 H Blood Pressure Mean 89 Blood Pressure Source Monitor Blood Pressure Position Semi-Fowlers Blood Pressure Location Left Arm Pulse Ox 96 Oxygen Delivery Method Room Air Weight Weight: 150 lb 11.2 oz Body Mass Index (BMI) 27.6 Results Lab / Micro Data 05/18/24 11:06 07/03/24 11:06 Labs: Laboratory Results - last 24 hr 05/18/24 11:06: WBC 8.5, RBC 3.36 L, Hgb 8.0 L, Hct 27.8 L, MCV 82.7, MCH 23.8 L, MCHC 28.8 L, RDW Std Deviation 63.3 H, RDW Coeff of Alfie 21.0 H, Plt Count 523 H, MPV 9.7, Immature Gran % (Auto) 0.600, Neut % (Auto) 72.8 H, Lymph % (Auto) 15.4 L, [place] % (Auto) 8.7, Eos % (Auto) 1.6, Baso % (Auto) 0.9, Absolute Neuts (auto) 6.2, Absolute Lymphs (auto) 1.31, Nucleated RBC % 0, Anisocytosis 2+, Sodium 138, Potassium 3.9, Chloride 106, Carbon Dioxide 23.0, Anion Gap 9, BUN 10, Creatinine 0.76, Estim Creat Clear Calc 62.68, Est GFR (MDRD) Af Amer 98, Est GFR (MDRD) Non-Af 81, BUN/Creatinine Ratio 13.2, Glucose 94, Calcium 8.8, Total Bilirubin 0.40, AST 33, ALT 37, Alkaline Phosphatase 78, Total Protein 6.6, Albumin 3.1 L, Globulin 3.5, Albumin/Globulin Ratio 0.9, Antibody Screen NEGATIVE Micro: Microbiology 05/18/24 11:11 Stool Stool Occult Blood (MARTHA) - Final Occult Blood Positive Assessment & Plan Assessment/Plan (1) Upper GI bleed: PLAN: Plan 1. Acute upper GI bleed with acute blood loss anemia in the setting of recent AVMs and grade 1 esophageal varices ? Type and screen was ordered in the ER ? Hemoglobin is 8 we will recheck at 7 PM tonight ? Will hold her antiplatelets and anticoagulation ? Will consult GI for scope ? Twice daily PPI ? Will make her n.p.o. and place her on gentle IV fluids 2. Essential HTN/HLD/severe peripheral vascular disease ? Can resume her home medications to control blood pressure and cholesterol while n.p.o. ? Will hold her antiplatelets and blood thinners DVT: SCDs 75 minutes was spent on direct patient care, including documentation as well as chart review and collaboration with colleagues Charges/Coding Visit Charges Inpatient E&M: 75560 Init Hosp L3
[2024-05-18] MEDS: 0.9% Normal Saline (1000mL) 1,000 ML 75 ML IV (14:52)
--- NOTE | 2024-05-18 17:02 | NURSING ---
Attempted to call report to surgery x2
--- NOTE | 2024-05-18 17:04 | CON.PCM.GI_ITS ---
HPI Consult Data Date of Consult: 05/18/24 HPI Narrative Reason for Consultation: GI bleed HPI Narrative: TONY BRADLEY, is a 68 F who presents with concern for black stool. She recently was in the hospital for GI bleed secondary to angiodysplasia in the upper GI tract and lower GI tract in the setting of Xarelto therapy. She further states she noticed dark discoloration of her stool this morning. She was told if she develop any of the symptoms she will come to the ED. She denies lightheadedness, weakness, fatigue, shortness of breath, chest pain or palpitations. Notes she is compliant with Xarelto. Last dose was this morning. Her hemoglobin was 3.5 on the previous admission -She was transfused 4 units packed red blood cells on the day of admission -Her hemoglobin came up to 8.2 -EGD was performed on 05/06/2024 and demonstrated grade 1 esophageal varices, 2 angiodysplastic lesions in the gastric body that were treated with coagulation for hemostasis and mild localized erythematous mucosa in the gastric antrum that were biopsied, there were patchy erythematous mucosa without active bleeding and no stigmata of bleeding in the duodenal bulb where biopsies were taken as well -Colonoscopy showed fair prep with 3 bleeding angiodysplastic lesions that were treated with heater probe and diverticulosis in the rectosigmoid and sigmoid colon along with patchy moderate inflammation at the sigmoid colon, ascending colon, cecum secondary to colitis this area was biopsied, stricture was noted in the terminal ileum that was biopsied -She was discharged on Protonix 40 twice daily. Her cilostazol was helpful but her aspirin, Plavix and rivaroxaban was restarted. [facility] Medical History (Updated 05/18/24 @ 17:[address] Joshi Friend, DO) AVM (arteriovenous malformation) Colitis Antiplatelet or antithrombotic long-term use Iron (Fe) deficiency anemia Atherosclerosis of [place] arteries of extremities with gangrene, left leg Carotid stenosis, bilateral Tobacco abuse Peripheral arterial occlusive disease Cervical cancer PVD (peripheral vascular disease) Arthritis Home Medications ?Medication ?Instructions ?Recorded ?Last Taken ?Type acetaminophen 650 mg 650 mg PO Q6H PRN Pain 06/25/18 Unknown History tablet,extended release (Tylenol Arthritis Pain) albuterol sulfate 90 mcg/actuation 2 puff inhalation Q6H PRN 01/08/24 Unknown History aerosol inhaler shortness of breath or wheezing amlodipine 5 mg tablet 5 mg PO DAILY 01/08/24 05/03/24 History aspirin 81 mg tablet,delayed 81 mg PO DAILY 01/08/24 05/03/24 History release budesonide-formoterol HFA 160 2 puff inhalation BID 01/08/24 Unknown History mcg-4.5 mcg/actuation aerosol inhaler rosuvastatin 10 mg tablet 10 mg PO DAILY 01/08/24 05/03/24 History rivaroxaban 2.5 mg tablet (Xarelto) 2.5 mg PO BID #60 tabs 01/22/24 05/03/24 Rx cilostazol 50 mg tablet 50 mg PO BID #60 tabs 02/11/24 05/03/24 Rx clopidogrel 75 mg tablet (Plavix) 75 mg PO DAILY #30 tabs 02/11/24 05/03/24 Rx cholecalciferol (vitamin D3) 1,250 1,250 mcg PO TH 05/03/24 Unknown History mcg (50,000 unit) capsule pantoprazole 40 mg tablet,delayed 40 mg PO DAILY #30 tabs 05/10/24 Unknown Rx release (Protonix) oxymetazoline 0.05 % nasal spray 2 spray intranasal BID PRN nasal 05/18/24 Unknown History (12 Hour Nasal Relief [place]) congestion Allergy/AdvReac Type Severity Reaction Status Date / Time No Known Allergies Allergy Verified 05/18/24 10:43 Family History Mother Breast cancer Surgical History S/P femoral-femoral bypass surgery S/P LEFT ARTERIOGRAM Social History Smoking Status: Light Smoker (<10/day) alcohol intake: never substance use type: does not use ROS Constitutional Constitutional: Denies chills, fatigue, fever(s) or malaise Eyes Eyes: Denies blurry vision ENT HEENT: Denies headache(s) or nasal discharge Cardiovascular Cardiovascular: Denies chest pain, dyspnea on exertion or syncope Respiratory/Chest Respiratory/Chest: Denies cough, shortness of breath at rest or shortness of breath with exertion Gastrointestinal Gastrointestinal: Reports melena; Denies abdominal pain, constipation, diarrhea, nausea or vomiting Genitourinary Genitourinary: Denies dysuria Neurologic Neurologic: Denies focal weakness, numbness or tremor(s) Psychiatric Psychiatric: Denies anxiety or depression Physical Exam Const alert, oriented x3, no apparent distress, no limitations and well nourished; Negative for average body habitus or healthy appearing Constitutional Narrative: Obese, upper middle-aged, white female, sitting up in a chair at the bedside, appears older than stated age, appears comfortable, appears comfortable, nontoxic, family at bedside General Appearance: cooperative, comfortable, well kempt and well developed Orientation / Consciousness: awake, oriented to person, oriented to place and oriented to time Exam Limitations: no limitations Nutritional Appearance: obese HEENT normocephalic, head/scalp atraumatic, hearing grossly normal bilaterally and moist oral mucous membranes HEENT Narrative: Mallampati 3, no thrush, enlarged tongue Eyes PERRL and EOMs intact bilaterally; Negative for conjunctivae normal Eyes Narrative: Marked conjunctival pallor bilaterally, no scleral icterus Neck no lymphadenopathy and supple Neck Narrative: Trachea midline, no thyroid enlargement Resp normal respiratory effort, no retractions, no use of accessory muscles and clear to auscultation bilaterally Resp Narrative: Aeration right base remains improved Auscultation: Negative for rales, rhonchi or wheezes Cardio regular rate, regular rhythm, S1 normal heart sound, S2 normal heart sound, no murmurs, no rub, no gallops and no clicks GI normal to inspection, nondistended, normoactive bowel sounds, soft to palpation and non-tender Extremity no clubbing, cyanosis or edema Extremity Narrative: Pedal and radial pulses are 2+ Skin no rashes or lesions noted, no wounds, skin turgor normal, no jaundice, no petechiae and no mottling Neuro oriented x3, CN's II-XII intact bilaterally, moves all extremities and no focal motor deficits Neuro Narrative: Mild generalized weakness noted but no focal deficits Speech: speech normal Psych affect normal Psych Narrative: Eye contact is good and patient interacts appropriately Lab / Micro Data 05/18/24 11:06 05/18/24 11:06 Labs: Laboratory Results - last 24 hr 05/18/24 11:06: WBC 8.5, RBC 3.36 L, Hgb 8.0 L, Hct 27.8 L, MCV 82.7, MCH 23.8 L , MCHC 28.8 L, RDW Std Deviation 63.3 H, RDW Coeff of Alfie 21.0 H, Plt Count 523 H, MPV 9.7, Immature Gran % (Auto) 0.600, Neut % (Auto) 72.8 H, Lymph % (Auto) 15.4 L, [place] % (Auto) 8.7, Eos % (Auto) 1.6, Baso % (Auto) 0.9, Absolute Neuts (auto) 6.2, Absolute Lymphs (auto) 1.31, Nucleated RBC % 0, Anisocytosis 2+, Sodium 138, Potassium 3.9, Chloride 106, Carbon Dioxide 23.0, Anion Gap 9, BUN 10, Creatinine 0.76, Estim Creat Clear Calc 62.68, Est GFR (MDRD) Af Amer 98, Est GFR (MDRD) Non-Af 81, BUN/Creatinine Ratio 13.2, Glucose 94, Calcium 8.8, Total Bilirubin 0.40, AST 33, ALT 37, Alkaline Phosphatase 78, Total Protein 6.6, Albumin 3.1 L, Globulin 3.5, Albumin/Globulin Ratio 0.9, Blood Type B POSITIVE, Antibody Screen NEGATIVE Micro: Microbiology 05/18/24 11:11 Stool Stool Occult Blood (MARTHA) - Final Occult Blood Positive Assessment & Plan Assessment/Plan (1) Upper GI bleed: (2) Peripheral arterial occlusive disease: (3) AVM (arteriovenous malformation): PLAN: Plan 8-year-old with past medical history of nicotine addiction6 resulting in COPD and severe peripheral vascular disease on quadruple therapy. She developed angiodysplastic lesions and had severe GI bleeding resulting in a hemoglobin of 3.5 status posttransfusion of 4 units of packed red blood cells. She comes back in now with what appears to be recurrent GI bleeding. She will undergo an upper endoscopy to evaluate upper GI tract and she would likely need a capsule endoscopy. She was explained alternatives, risk, benefits including not withstanding bleeding, infection, sepsis, perforation, need for surgery and . She will have an ASA of 3. Charges/Coding Visit Charges Inpatient E&M: 36967 Init Hosp L3
--- NOTE | 2024-05-18 17:36 | PRE.ANES_ITS ---
ASA Classification* ASA Classification ASA Classification: 3 and E Assessment & Plan Anesthesia* Anesthesia Assessment Anesthesia Assessment: Discussed sedation and/or anesthesia options, risks, benefits, and alternatives with patient/parents/legal guardian/POA. Questions invited. The patient/parents/legal guardian/POA seems to understand and agrees to proceed with anesthesia plan. Reviewed the physical assessment, medical history, allergy history and patient home medications list prior to surgery/procedure/anesthetic and documented any changes. Performed airway and anesthesia risk assessments. Anesthesia Type Anesthesia Type: MAC History Source History Obtained from:: Patient and Chart Anesthesia Focused Assessment* Temperature: 98.3 F Pulse Rate: 106 Blood Pressure: 106/81 Respiratory Rate: 17 Pulse Ox: 96 Oxygen Delivery Method: Nasal Cannula (Patient uses oxygen at night.) Airway Assessment Mouth opens: >3 cm Mallampati Score: III Teeth Condition: Dentures (Patient took dentures out.) and Full Neck Range of motion (ROM): Full ROM Focused Labs Anesthesia Preop lab: CBC WBC 8.5 K/mm3 (4.4-11.0) 05/18/24 11:06 RBC 3.36 M/mm3 (4.2-5.4) L 05/18/24 11:06 Hgb 8.0 g/dL (12.0-15.0) L 05/18/24 11:06 Hct 27.8 % (37-47) L 05/18/24 11:06 Plt Count 523 K/mm3 (150-450) H 05/18/24 11:06 CHEMISTRY Potassium 3.9 mmol/L (3.5-5.1) 05/18/24 11:06 Sodium 138 mmol/L (136-145) 05/18/24 11:06 Magnesium 1.8 mg/dL (1.6-2.6) 05/09/24 06:04 Phosphorus 2.5 mg/dL (2.5-4.9) 05/09/24 06:04 BUN 10 mg/dL (7-18) 05/18/24 11:06 Creatinine 0.76 mg/dL (0.55-1.02) 05/18/24 11:06 Glucose 94 mg/dL (74-106) 05/18/24 11:06 POC Glucose 92 mg/dL (74-106) 05/10/24 11:15 TSH 1.68 uIU/mL (0.358-3.74) 05/04/24 06:10 COAG PT 15.3 SECONDS (11.7-14.9) H 05/09/24 06:04 Pre-Assessment Diagnosis/Proposed Procedure Planned Operative Procedure(s): Esophagogastroduodenoscopy with possible cautery and/or injection therapy. Anesthesia History Anesthesia History - mop handle assembler: Anesthesia History - mop handle assembler Hx Hospitalization No 10/05/18 13:37 Any Problems With Anesthesia No 05/04/24 21:32 Cholinesterase deficiency No 05/04/24 21:32 You/Your Family Experience No 05/04/24 21:32 fever (hyperthermia) with Relationship Recent Exposure to Contagious No 05/04/24 21:32 Disease Does patient have nerve No 05/04/24 21:32 stimulator Patient instructed to have device shut off --Does patient have Pacemaker or ICD? When Was Last Pacemaker Check QUESTION #4 FULL TEXT: You/Your Family Experience fever (hyperthermia) with Anesthesia Last Oral Intake Last Oral intake: Last Oral Intake NPO since Meds taken in AM with sips of water? Meds patient instructed to take am of surgery Any additional information?: Yes NPO since: 00:00 PONV PONV - mop handle assembler: PONV - mop handle assembler Female HX of Motion Sickness HX of N/V After Surgery Non-Smoker Duration of Surgery greater than 60 minutes Number of Risk Factors PONV Score Height & Weight Height & Weight: Anesthesia: Height & Weight Height 5 ft 2 in 05/18/24 14:51 Weight: 69.4 kg 05/18/24 14:51 Body Mass Index (BMI) 28.0 05/18/24 13:08 Respiratory Assessment Respiratory Assessment - mop handle assembler: Respiratory Tract Infection Hx - mop handle assembler Hx Respiratory Tract Infection No 05/04/24 21:32 Any additional information?: Yes Hx Respiratory Tract Infection: Yes (Patient had pneumonia last week. Patient says they had to drain her lungs.) STOP Sleep Apnea STOP Sleep Apnea - mop handle assembler: STOP Sleep Apnea - mop handle assembler Hx Hypertension No 05/18/24 13:08 Hx Sleep Apnea No 05/18/24 13:08 CPAP No 05/18/24 13:08 BIPAP No 05/18/24 13:08 Do you snore loudly (louder No 05/18/24 13:08 than talking or can be heard Do you often feel tired/ Yes 05/18/24 13:08 fatigued/ sleepy during daytime? Has anyone observed you stop No 05/18/24 13:08 breathing during sleep? STOP Results Negative 05/18/24 13:08 QUESTION #5 FULL TEXT : Do you snore loudly (louder than talking or can be heard through closed doors)? 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 Specify any problems Hx of Preganancy in last 3 No 05/18/24 13:08 Months Nurse Filling Out Transfusion GOSIA 05/18/24 13:08 & Questions: Date: 05/18/24 05/18/24 13:08 Time: 13:40 05/18/24 13:08 Patient unable to answer at this time (ie. confused, unrespo /Reproduction History /Reproductive History - mop handle assembler: /Reproductive Hx- mop handle assembler Hx Now Gestational Age (in weeks): EDC: Hx Hx Para Hx Section SAB No 05/04/24 21:32 Active Medications Active Medications: Current Medications Generic Name Dose Route Start Last Admin Trade Name Freq PRN Reason Stop Dose Admin Albuterol Sulfate 2.5 mg 05/18/24 14:50 Albuterol 2.5 Mg/3 Ml Vial.Neb. INHALATION Q6HWA.RT ERNST Amlodipine Besylate 5 mg 05/19/24 10:00 Amlodipine 5 Mg Tablet PO DAILY [facility] Protocol Atorvastatin Calcium 20 mg 05/18/24 22:00 Atorvastatin Calcium 20 Mg Tablet PO QHS ERNST Budesonide 0.5 mg 05/18/24 14:50 Budesonide Respules 0.5 Mg/2 Ml Ampul.Neb. INHALATION Q12H.RT ERNST Pantoprazole Sodium 40 mg/ 110 mls @ 330 mls/hr 05/18/24 22:00 Sodium Chloride IV Q12 ERNST Sodium Chloride 250 mls @ 15 mls/hr 05/18/24 13:14 IV .[id number] PRN Additional IVPB Infusion Sodium Chloride 250 mls @ 15 mls/hr 05/18/24 13:14 IV .[id number] PRN Saline Flush Sodium Chloride 1,000 mls @ 75 mls/hr 05/18/24 13:40 05/18/24 14:52 IV 75 mls/hr .[id number] ERNST Administration Sodium Chloride 2 - 6 ml 05/18/24 13:14 0.9% Saline Lock 10 Ml Syringe IV UD PRN Pediatric Saline Flush PFSH Medical History AVM (arteriovenous malformation) Colitis Antiplatelet or antithrombotic long-term use Iron (Fe) deficiency anemia Atherosclerosis of [place] arteries of extremities with gangrene, left leg Carotid stenosis, bilateral Tobacco abuse Peripheral arterial occlusive disease Cervical cancer PVD (peripheral vascular disease) Arthritis Home Medications ?Medication ?Instructions ?Recorded ?Last Taken ?Type acetaminophen 650 mg 650 mg PO Q6H PRN Pain 06/25/18 Unknown History tablet,extended release (Tylenol Arthritis Pain) albuterol sulfate 90 mcg/actuation 2 puff inhalation Q6H PRN 01/08/24 Unknown History aerosol inhaler shortness of breath or wheezing amlodipine 5 mg tablet 5 mg PO DAILY 01/08/24 05/03/24 History aspirin 81 mg tablet,delayed 81 mg PO DAILY 01/08/24 05/03/24 History release budesonide-formoterol HFA 160 2 puff inhalation BID 01/08/24 Unknown History mcg-4.5 mcg/actuation aerosol inhaler rosuvastatin 10 mg tablet 10 mg PO DAILY 01/08/24 05/03/24 History rivaroxaban 2.5 mg tablet (Xarelto) 2.5 mg PO BID #60 tabs 01/22/24 05/03/24 Rx cilostazol 50 mg tablet 50 mg PO BID #60 tabs 02/11/24 05/03/24 Rx clopidogrel 75 mg tablet (Plavix) 75 mg PO DAILY #30 tabs 02/11/24 05/03/24 Rx cholecalciferol (vitamin D3) 1,250 1,250 mcg PO TH 05/03/24 Unknown History mcg (50,000 unit) capsule pantoprazole 40 mg tablet,delayed 40 mg PO DAILY #30 tabs 05/10/24 Unknown Rx release (Protonix) oxymetazoline 0.05 % nasal spray 2 spray intranasal BID PRN nasal 05/18/24 Unknown History (12 Hour Nasal Relief [place]) congestion Allergy/AdvReac Type Severity Reaction Status Date / Time No Known Allergies Allergy Verified 05/18/24 10:43 Family History Mother Breast cancer Surgical History S/P femoral-femoral bypass surgery S/P LEFT ARTERIOGRAM Social History Smoking Status: Light Smoker (<10/day) alcohol intake: never substance use type: does not use Review of Systems (Anesthesia) ROS Narrative System reviewed and no additional complaints, except as documented.
--- NOTE | 2024-05-18 18:30 | OP.CCLET_ITS ---
05/18/2024 Vincent Ashley Re : Upper GI endoscopy procedure for Brenda Macedo Dear Dion This procedure was performed on Saturday, May 18, 2024. My impressions and recommendations are as follows: Impressions : - Grade I esophageal varices. - Red blood in the gastric body. - Three bleeding angiodysplastic lesions in the stomach. Treated with a heater probe. - Oozing gastric ulcer with a visible vessel. Treated with a heater probe. - No gross lesions in the first portion of the duodenum. - No specimens collected. Recommendations : - [facility]. - Clear liquid diet today. - The patient is not currently taking aspirin or NSAID medications. - Use Protonix (pantoprazole) 40 mg IV daily. - The patient is not currently taking anticoagulant or antiplatelet agents. My findings are described in the full procedure note, which is enclosed. If I can be of further assistance, please feel free to contact me at . Sincerely, Adi Kincaid, 05/18/2024 6:30:12 PM This report has been signed electronically.
--- NOTE | 2024-05-18 18:30 | OP.EGD_ITS ---
Patient Name: Brenda Macedo Procedure Date: 05/18/2024 5:16 PM Date of : 1955 Age: 68 Procedure: Upper GI endoscopy Indications: Acute post hemorrhagic anemia, Melena Providers: Adi Kincaid DO Medicines: Monitored Anesthesia Care Patient Profile: This is a 68 year old female. Refer to note in patient chart for documentation of history and physical. Patient has symptoms. Her most recent EGD for treatment of bleeding was within the past three months. Complications: No immediate complications. Procedure: Pre-Anesthesia Assessment: - Prior to the procedure, a History and Physical was performed, and patient medications and allergies were reviewed. The patient is competent. The risks and benefits of the procedure and the sedation options and risks were discussed with the patient. All questions were answered and informed consent was obtained. Patient identification and proposed procedure were verified by the physician in the pre-procedure area. Mental Status Examination: alert and oriented. Airway Examination: normal oropharyngeal airway and neck mobility. Respiratory Examination: clear to auscultation. CV Examination: normal. Prophylactic Antibiotics: The patient does not require prophylactic antibiotics. Prior Anticoagulants: The patient has taken no anticoagulant or antiplatelet agents except for NSAID medication. ASA Grade Assessment: IV - A patient with severe systemic disease that is a constant threat to life. After reviewing the risks and benefits, the patient was deemed in satisfactory condition to undergo the procedure. The anesthesia plan was to use monitored anesthesia care (MAC). Immediately prior to administration of medications, the patient was re-assessed for adequacy to receive sedatives. The heart rate, respiratory rate, oxygen saturations, blood pressure, adequacy of pulmonary ventilation, and response to care were monitored throughout the procedure. The physical status of the patient was re-assessed after the procedure. After obtaining informed consent, the endoscope was passed under direct vision. Throughout the procedure, the patient's blood pressure, pulse, and oxygen saturations were monitored continuously. The Endoscope was introduced through the mouth, and advanced to the second part of duodenum. The upper GI endoscopy was accomplished without difficulty. The patient tolerated the procedure well. Scope In: 5:56:28 PM Scope Out: 6:21:03 PM Total Procedure Duration Time 0 hours 24 minutes 35 seconds Findings: Grade I varices were found in the upper third of the esophagus. They were 9 mm in largest diameter. Red blood was found in the gastric body. Three 8 mm angiodysplastic lesions with bleeding were found in the cardia, in the gastric fundus and on the greater curvature of the stomach. Coagulation for hemostasis using heater probe was successful. Estimated blood loss was minimal. One oozing cratered gastric ulcer with a visible vessel was found in the gastric body. The lesion was 16 mm in largest dimension. Coagulation for hemostasis using heater probe was successful. Estimated blood loss was minimal. No gross lesions were noted in the first portion of the duodenum. Impression: - Grade I esophageal varices. - Red blood in the gastric body. - Three bleeding angiodysplastic lesions in the stomach. Treated with a heater probe. - Oozing gastric ulcer with a visible vessel. Treated with a heater probe. - No gross lesions in the first portion of the duodenum. - No specimens collected. Recommendation: - [facility]. - Clear liquid diet today. - The patient is not currently taking aspirin or NSAID medications. - Use Protonix (pantoprazole) 40 mg IV daily. - The patient is not currently taking anticoagulant or antiplatelet agents. Procedure Code(s): --- Professional --- 84464, Esophagogastroduodenoscopy, flexible, transoral; with control of bleeding, any method CPT copyright 2021 [employer]. All rights reserved. The codes documented in this report are preliminary and upon client service and consulting manager review may be revised to meet current compliance requirements. Adi Kincaid DO 05/18/2024 6:30:12 PM This report has been signed electronically. Number of Addenda: 0 Note Initiated On: 05/18/2024 5:16 PM
--- NOTE | 2024-05-18 18:34 | PCM.POST.ANE ---
Anesthesia: Postop Eval I Current Vital Signs Temperature: 99.2 F Pulse Rate: 117 Blood Pressure: 106/58 Respiratory Rate: 26 Pulse Ox: 93 Oxygen Delivery Method: Nasal Cannula (Oxygen is at 4 L.) Assessment Airway patent: Yes Spontaneous unlabored respirations: Yes Mental status: Asleep (Patient is arousable.) nausea: No Vomiting: No Anesthesia Complication: No Fluid Hydration Crystalloid volume administer (ml): 300 Total IV fluid infused: 300 Progress Note Anesthesia document: Postop Eval 1 completed: Yes
--- NOTE | 2024-05-18 18:51 | PCM.POSTANE2 ---
Anesthesia Postop Eval I Sum Postop Eval Completion status Anesthesia document: Postop Eval 1 completed: Yes Anesthesia Postop Eval I Summary Anesthesia Postop Eval I Summary: Anesthesia Postop Eval I: Assessment Summary Airway patent Yes 05/18/24 18:37 Spontaneous unlabored Yes 05/18/24 18:37 respirations Mental status Asleep - Patient 05/18/24 18:37 is arousable. nausea No 05/18/24 18:37 Vomiting No 05/18/24 18:37 Anesthesia Postop Eval I: Fluid Summary Crystalloid volume administer 300 05/18/24 18:37 (ml) Colloids volume administered ( ml) Blood Product volume administered (ml) Total IV fluid infused 300 05/18/24 18:37 Anesthesia Postop Eval I: Summary Notes Anesthesia Complication No 05/18/24 18:37 Anesthesia Complication Comment: Post-operative progress note Anesthesia: Postop Eval II Evaluation Mental status: Awake and Calm Pain Level: 0 nausea: No Vomiting: No Progress Note Post-operative progress note: Patient was noted to be tachycardic during the case between 105 and 120 bpm. She was tachycardic preop as well. And she continues to be so in the recovery room. No other symptoms from the tachycardia. As noted in the OR record 10 mg of esmolol did bring her heart rate down but this was a temporary fix. Complications Anesthesia Complication: No
[2024-05-18] MEDS: Albuterol 2.5 MG/3 ML VIAL.NEB. INHALATION (19:24)
[2024-05-18] MEDS: Budesonide Respules 0.5 MG/2 ML AMPUL.NEB. INHALATION (19:24)
[2024-05-18 21:14] LABS: Hematocrit 24.1 % (37-47); Hemoglobin 7.1 g/dL (12.0-15.0)
--- NOTE | 2024-05-18 22:13 | NURSING ---
Call received from a Daniel Varghese stating he is the patient's cousin. Apparently he requested to speak with the charge nurse. The call was handed over to this RN. Daniel sounded quite upset on the phone and was cursing. He states that patient asked for water before 1999 and had not received any yet. States he has his senior attorney on the line as well. Reports having issues in healthcare in the past with other family members. Communicates that he has taken legal action against healthcare in the past and could use the money. This RN explained that I was unaware that there had been an issue with patient receiving water. This RN checked orders to ensure that water was within patient diet order. Patient ordered clear liquids. This RN ensured caller that water would be delivered to patient at this time. After ending the phone call, ice water was immediately taken to the patient by this RN.
[2024-05-18] MEDS: Atorvastatin Calcium 20 MG Tablet PO (23:02)
[2024-05-18] MEDS: Pantoprazole Sodium 40 MG in 0.9% Normal Saline (100mL MB+) 100 ML 330 MG IV (23:13)
[2024-05-18 23:42] LABS: Absolute Lymphocyte Count 1.26 X10^3/uL (0.83-4.51); Absolute Neutrophil Count 3.9 X10^3/uL (2.0-7.7); Basophil# 0.04 X10^3/uL; Basophil% 0.7 % (0-1); Eosinophil# 0.11 X10^3/uL; Eosinophils% 1.9 % (0-5); Hematocrit 22.7 % (37-47); Hemoglobin 6.4 g/dL (12.0-15.0); Lymphocyte # 1.26 X10^3/ul (0.83-4.51); Lymphocyte % 21.4 % (19-41); Mean Corp Hgb Conc 28.2 g/dL (32-36); Mean Corpuscular Hgb 23.5 pg (27.0-32.0); Mean Corpuscular Volume 83.5 fL (81-99); Mean Platelet Vol. 9.5 fl (6.2-12.0); Monocyte# 0.59 X10^3/uL; NRBC Flagged by Analyzer 0 % (0-5); Neutrophil # 3.86 X10^3/uL (2.7-7.7); Neutrophil % 65.3 % (47-70); POSITIVE MORPHOLOGY YES; Platelet Count 437 K/mm3 (150-450); RBC Distribution Width CV 20.8 % (11.6-14.6); RBC Distribution Width SD 62.4 fl (35.1-43.9); Red Blood Count 2.72 M/mm3 (4.2-5.4); White Blood Count 5.9 K/mm3 (4.4-11.0)
[2024-05-18 23:43] LABS: Differential Indicated SCAN CRITERIA MET
[2024-05-19] VITALS (12 sets, daily range): BP systolic 83–116; BP diastolic 51–67; PULSE 87–109; RESP 14–23; TEMP 36–36.8; O2SAT 91–100
[2024-05-19 00:14] LABS: Differential Comment SCANNED
[2024-05-19] MEDS: 0.9% Normal Saline (1000mL) 1,000 ML 75 ML IV ×2 (01:18→14:59)
[2024-05-19] MEDS: Budesonide Respules 0.5 MG/2 ML AMPUL.NEB. INHALATION ×2 (06:51→20:16)
[2024-05-19] MEDS: Albuterol 2.5 MG/3 ML VIAL.NEB. INHALATION ×3 (06:51→20:16)
[2024-05-19 07:09] LABS: Absolute Lymphocyte Count 1.18 X10^3/uL (0.83-4.51); Absolute Neutrophil Count 4.3 X10^3/uL (2.0-7.7); Basophil# 0.04 X10^3/uL; Basophil% 0.6 % (0-1); Eosinophil# 0.13 X10^3/uL; Hematocrit 27.5 % (37-47); Hemoglobin 8.1 g/dL (12.0-15.0); Lymphocyte # 1.18 X10^3/ul (0.83-4.51); Mean Corp Hgb Conc 29.5 g/dL (32-36); Mean Corpuscular Volume 84.9 fL (81-99); Mean Platelet Vol. 9.6 fl (6.2-12.0); Monocyte# 0.81 X10^3/uL; Monocyte% 12.4 % (0-10); NRBC Flagged by Analyzer 0 % (0-5); Neutrophil # 4.34 X10^3/uL (2.7-7.7); Neutrophil % 66.4 % (47-70); Platelet Count 452 K/mm3 (150-450); RBC Distribution Width CV 19.8 % (11.6-14.6); RBC Distribution Width SD 61.3 fl (35.1-43.9); Red Blood Count 3.24 M/mm3 (4.2-5.4); White Blood Count 6.5 K/mm3 (4.4-11.0)
[2024-05-19 08:03] LABS: Anion Gap 5 (5-15); BUN 7 mg/dL (7-18); BUN/Creat Ratio 13.4 RATIO (10-20); Calcium,Total 8.6 mg/dL (8.5-10.1); Chloride 111 mmol/L (98-107); Creatinine, Serum 0.52 mg/dL (0.55-1.02); EST Glomerular Filtration Rate 124 mL/min (>60); Est Glom Filt Rate - Afr Amer 150 mL/min (>60); Estimated Creatinine Clearance 63.14 ml/min; Glucose 78 mg/dL (74-106); Potassium 3.9 mmol/L (3.5-5.1); Sodium Level 142 mmol/L (136-145)
--- NOTE | 2024-05-19 10:06 | PN.HOSP_ITS ---
Subjective Subjective EGD yesterday with multiple AVMs and gastric ulcer with visible vessel. She was transfused overnight Objective Data Objective Data Vital Signs: Vital Signs Temp Pulse Resp BP Pulse Ox O2 Del Method O2 Flow Rate 98.3 F 109 H 16 104/59 L 96 Nasal Cannula 2 05/19/24 07:45 05/19/24 07:45 05/19/24 07:45 05/19/24 07:45 05/19/24 07:45 05/19/24 07:48 05/19/24 07:48 Oxygen Flow Rate (L/min) 2 Oxygen Delivery Method Nasal Cannula Weight: 153 lb 0.013 oz Body Mass Index (BMI) 28.0 Intake & Output: Intake and Output for Last 24 Hours 05/18/24 05/19/24 05/20/24 03:59 03:59 03:59 Intake Total 1132.50 / 1132.50 Balance 1132.50 / 1132.50 Lab / Micro Data 05/19/24 06:45 05/19/24 06:45 Labs: Laboratory Results - last 24 hr 05/18/24 11:06: WBC 8.5, RBC 3.36 L, Hgb 8.0 L, Hct 27.8 L, MCV 82.7, MCH 23.8 L , MCHC 28.8 L, RDW Std Deviation 63.3 H, RDW Coeff of Alfie 21.0 H, Plt Count 523 H, MPV 9.7, Immature Gran % (Auto) 0.600, Neut % (Auto) 72.8 H, Lymph % (Auto) 15.4 L, Grundy % (Auto) 8.7, Eos % (Auto) 1.6, Baso % (Auto) 0.9, Absolute Neuts (auto) 6.2, Absolute Lymphs (auto) 1.31, Nucleated RBC % 0, Anisocytosis 2+, Sodium 138, Potassium 3.9, Chloride 106, Carbon Dioxide 23.0, Anion Gap 9, BUN 10, Creatinine 0.76, Estim Creat Clear Calc 62.68, Est GFR (MDRD) Af Amer 98, Est GFR (MDRD) Non-Af 81, BUN/Creatinine Ratio 13.2, Glucose 94, Calcium 8.8, Total Bilirubin 0.40, AST 33, ALT 37, Alkaline Phosphatase 78, Total Protein 6.6, Albumin 3.1 L, Globulin 3.5, Albumin/Globulin Ratio 0.9, Blood Type B POSITIVE, Antibody Screen NEGATIVE, Crossmatch See Detail 05/18/24 19:40: Hgb 7.1 L, Hct 24.1 L 05/18/24 23:34: WBC 5.9, RBC 2.72 L, Hgb 6.4 L, Hct 22.7 L, MCV 83.5, MCH 23.5 L , MCHC 28.2 L, RDW Std Deviation 62.4 H, RDW Coeff of Alfie 20.8 H, Plt Count 437, MPV 9.5, Immature Gran % (Auto) 0.700, Neut % (Auto) 65.3, Lymph % (Auto) 21.4, Grundy % (Auto) 10.0, Eos % (Auto) 1.9, Baso % (Auto) 0.7, Absolute Neuts (auto) 3.9, Absolute Lymphs (auto) 1.26, Nucleated RBC % 0, Differential Comment SCANNED 05/19/24 06:45: WBC 6.5, RBC 3.24 L, Hgb 8.1 L, Hct 27.5 L, MCV 84.9, MCH 25.0 L , MCHC 29.5 L, RDW Std Deviation 61.3 H, RDW Coeff of Alfie 19.8 H, Plt Count 452 H, MPV 9.6, Immature Gran % (Auto) 0.600, Neut % (Auto) 66.4, Lymph % (Auto) 18.0 L, Grundy % (Auto) 12.4 H, Eos % (Auto) 2.0, Baso % (Auto) 0.6, Absolute Neuts (auto) 4.3, Absolute Lymphs (auto) 1.18, Nucleated RBC % 0, Sodium 142, Potassium 3.9, Chloride 111 H, Carbon Dioxide 26.0, Anion Gap 5, BUN 7, C reatinine 0.52 L, Estim Creat Clear Calc 63.14, Est GFR (MDRD) Af Amer 150, Est GFR (MDRD) Non-Af 124, BUN/Creatinine Ratio 13.4, Glucose 78, Calcium 8.6 Micro: Microbiology 05/18/24 11:11 Stool Stool Occult Blood (MARTHA) - Final Occult Blood Positive Physical Exam Narrative General: Alert, Oriented x3, Cooperative, No apparent distress HEENT: Atraumatic, PERRLA, EOMI, Normocephalic Oral: Moist Mucosa Neck: Supple, No JVD Lungs: Diminished, Normal air movement, No rhonchi, No wheeze, No rales Cardiovascular: Regular rate, Regular Rhythm, Normal S1, Normal S2, No murmurs Abdomen: Soft, Non Tender, Non-Distended, No Hepato-splenomegaly Extremities: No edema, Capillary Refill Less than 3 Seconds Skin: No rashes, No breakdown Musculoskeletal: No Tenderness to Palpation of Joints or Extremities Neurological: No focal neurological deficits, Motor Exam 5/5 strength throughout, Sensory exam intact to light touch and pain Psych/Mental Status: Normal Affect, Appropriate Assessment & Plan Assessment/Plan (1) Upper GI bleed: PLAN: Plan 1. Acute upper GI bleed with acute blood loss anemia with 3 AVMs in the gastric ulcer with visible vessel and continued grade 1 esophageal varices ? Type and screen was ordered in the ER ? Received transfusion overnight ? Will hold her antiplatelets and anticoagulation ? Appreciate GIs assistance ? Twice daily PPI ? Advance diet as tolerated and will recheck H&H this afternoon 2. Essential HTN/HLD/severe peripheral vascular disease ? Can resume her home medications to control blood pressure and cholesterol while n.p.o. ? Will hold her antiplatelets and blood thinners DVT: SCDs Charges/Coding Visit Charges Inpatient E&M: 94460 Subs Hosp L2
[2024-05-19] MEDS: Pantoprazole Sodium 40 MG in 0.9% Normal Saline (100mL MB+) 100 ML 330 MG IV ×2 (10:42→21:43)
[2024-05-19 13:26] LABS: Hematocrit 27.4 % (37-47); Hemoglobin 8.2 g/dL (12.0-15.0)
--- NOTE | 2024-05-19 14:56 | NURSING ---
Tried taking 2L O2 off several times during the day. When the O2 is off pt starts to desat in the upper 80s. Placed on 2L NC
--- NOTE | 2024-05-19 20:14 | CPS ---
Patient wears 2L oxygen HS
[2024-05-19] MEDS: Atorvastatin Calcium 20 MG Tablet PO (21:43)
[2024-05-20] VITALS (11 sets, daily range): BP systolic 106–127; BP diastolic 59–89; PULSE 86–114; RESP 16–18; TEMP 36.3–37.4; O2SAT 88–97; BMI 28.0
[2024-05-20] MEDS: 0.9% Normal Saline (1000mL) 1,000 ML 75 ML IV (04:46)
[2024-05-20 05:38] LABS: Absolute Lymphocyte Count 1.07 X10^3/uL (0.83-4.51); Absolute Neutrophil Count 4.6 X10^3/uL (2.0-7.7); Basophil# 0.04 X10^3/uL; Basophil% 0.6 % (0-1); Eosinophil# 0.12 X10^3/uL; Eosinophils% 1.8 % (0-5); Hematocrit 27.8 % (37-47); Hemoglobin 8.2 g/dL (12.0-15.0); Lymphocyte # 1.07 X10^3/ul (0.83-4.51); Lymphocyte % 16.1 % (19-41); Mean Corp Hgb Conc 29.5 g/dL (32-36); Mean Corpuscular Hgb 25.1 pg (27.0-32.0); Mean Platelet Vol. 9.6 fl (6.2-12.0); Monocyte# 0.77 X10^3/uL; Monocyte% 11.6 % (0-10); NRBC Flagged by Analyzer 0 % (0-5); Neutrophil # 4.61 X10^3/uL (2.7-7.7); Neutrophil % 69.6 % (47-70); Platelet Count 451 K/mm3 (150-450); RBC Distribution Width CV 19.8 % (11.6-14.6); RBC Distribution Width SD 60.6 fl (35.1-43.9); Red Blood Count 3.27 M/mm3 (4.2-5.4); White Blood Count 6.6 K/mm3 (4.4-11.0)
[2024-05-20 05:55] LABS: Anion Gap 4 (5-15); BUN 6 mg/dL (7-18); BUN/Creat Ratio 12.8 RATIO (10-20); Calcium,Total 8.6 mg/dL (8.5-10.1); Chloride 111 mmol/L (98-107); Creatinine, Serum 0.47 mg/dL (0.55-1.02); EST Glomerular Filtration Rate 141 mL/min (>60); Est Glom Filt Rate - Afr Amer 171 mL/min (>60); Estimated Creatinine Clearance 63.14 ml/min; Glucose 80 mg/dL (74-106); Potassium 3.7 mmol/L (3.5-5.1); Sodium Level 142 mmol/L (136-145)
[2024-05-20] MEDS: Budesonide Respules 0.5 MG/2 ML AMPUL.NEB. INHALATION (06:40)
[2024-05-20] MEDS: Albuterol 2.5 MG/3 ML VIAL.NEB. INHALATION (06:40)
[2024-05-20] MEDS: Pantoprazole Sodium 40 MG in 0.9% Normal Saline (100mL MB+) 100 ML 330 MG IV (09:42)
--- NOTE | 2024-05-20 10:40 | CASEMGMT ---
Addendum entered by Derek Zimmerman 05/20/24 16:27: Home O2 amb testing completed. Pt does not qualify for O2 w/exertion at this time. Per Dr Chavez, he has spoken w/pt re: Protonix and pt being unable to swallow pills. Pt has been made aware the Protonix pills are small and she is going to pick them up and is going to work on being able to figure out how to swallow them. She states it is not a swallowing issue for her, it is just that she has never learned how to swallow them. She states they did look into getting dissolvable tabs, but cost was ~ $400 and that is why she ended up going w/the Prevacid. She was made aware if she is still unable to swallow the pills, to f/u w/PCP or GI to notify them of same to discuss any other options available. She voices understanding and denies having further d/c needs/concerns. Addendum entered by Derek Zimmerman 05/20/24 15:47: DALIA NEVAREZ to room. Introduced self and role. Pt's sister and bro-in-law in room w/pt and she is agreeable to them being present while DALIA NEVAREZ talks w/pt. Pt states she did have f/u appt w/PCP since last admission, stating she saw [employer], Jaydon, on 05/17. She states she did not realize she was to have labs drawn w/in 5-7 days after discharge and did not have any done since d/c on 05/10. 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 She did not take the Protonix d/t she is not able to swallow pills whole and was told that could not be opened. She states she spoke w/the pharmacist who recommended she take Prevacid instead so she could open them and take in applesauce, so she has been doing that instead of the Protonix. She states she has been taking all her other meds as prescribed and has all meds needed @ home. DALIA NEVAREZ noted that Dr Chavez e-scribed Protonix BID to [facility]. Message sent to Dr Chavez via backline to notify him pt has not been taking the Protonix, but has been instead taking Prevacid d/t above stated reason. Pt states she has an upcoming appt w/Dr Kincaid in June, Dr Frost 05/27, and Alejandra Bustos in Sep. Pt has home O2 from [employer]. Current orders are for 2 l/m w/exertion. Pt states she does not wear it w/exertion, only @ HS to help me sleep. She and sister state she does not have portable O2 tanks and never has, only concentrator and back-up tanks if she would lose electricity. Shira GÓMEZ, to test pt on RA @ rest and w/exertion. If pt qualifies for O2 w/exertion, [facility] to be notified of need of portability. Original Note: DALIA NEVAREZ readmission note: Index admission: Admitted 05/03 w/severe anemia, Hgb 3.5. Per Dr Chavez H/P, She was recently admitted and discharged on 05/10/2024 after she was found to have esophageal varices and 2 bleeding AVMs with no signs of ulcerations. She was gradually restarted on aspirin, Plavix, Xarelto 2.5 mg p.o. twice daily secondary to severe peripheral vascular disease. On discharge her hemoglobin was 8.8. Pt did receive 4 units PRBC's. Pt discharged home on 05/10. See Kenton GÓMEZ CM, assess 05/04. Pt uses home O2 @ 2 l/m w/exertion (from [employer]) and did not qualify for any increase in O2 @ dc. Pt to f/u with PCP in 1 week and to have CMC and BMP done w/in 5-7 days. She was also to call to schedule appt w/Dr Kincaid as an OP w/in 1 month. Pt dc'd w/Rx's for levaquin and protonix. Pt also had appt's already scheduled w/Dr Frost and Dr Bustos (Sep). Current admission: Presented to ED d/t black stools. Hemoccult + and pt tachycardic. Admitted 05/18 w/GIB. Hgb 8.0. GI consulted. Pt to have colonoscopy today. DALIA NEVAREZ to room to discuss readmission. Pt getting ready to go to bathroom. DALIA NEVAREZ will return at a later time. Faviola GUSMAN RN, CM
--- NOTE | 2024-05-20 11:12 | PCM.PRE.AN2 ---
ASA Classification* ASA Classification ASA Classification: 3 Assessment & Plan Anesthesia* Anesthesia Assessment Anesthesia Assessment: Discussed sedation and/or anesthesia options, risks, benefits, and alternatives with patient/parents/legal guardian/POA. Questions invited. The patient/parents/legal guardian/POA seems to understand and agrees to proceed with anesthesia plan. Reviewed the physical assessment, medical history, allergy history and patient home medications list prior to surgery/procedure/anesthetic and documented any changes. Performed airway and anesthesia risk assessments. Anesthesia Type Anesthesia Type: MAC History Source History Obtained from:: Patient and Chart Anesthesia Focused Assessment* Temperature: 98.4 F Pulse Rate: 97 Blood Pressure: 122/89 Respiratory Rate: 17 Pulse Ox: 92 Oxygen Delivery Method: Nasal Cannula (Patient uses nasal cannula oxygen at night.) Airway Assessment Mouth opens: >3 cm Mallampati Score: IV Teeth Condition: Dentures (Dentures are out.) Neck Range of motion (ROM): Limited ROM (Somewhat decreased extension.) Focused Labs Anesthesia Preop lab: CBC WBC 6.6 K/mm3 (4.4-11.0) 05/20/24 05:08 RBC 3.27 M/mm3 (4.2-5.4) L 05/20/24 05:08 Hgb 8.2 g/dL (12.0-15.0) L 05/20/24 05:08 Hct 27.8 % (37-47) L 05/20/24 05:08 Plt Count 451 K/mm3 (150-450) H 05/20/24 05:08 CHEMISTRY Potassium 3.7 mmol/L (3.5-5.1) 05/20/24 05:08 Sodium 142 mmol/L (136-145) 05/20/24 05:08 Magnesium 1.8 mg/dL (1.6-2.6) 05/09/24 06:04 Phosphorus 2.5 mg/dL (2.5-4.9) 05/09/24 06:04 BUN 6 mg/dL (7-18) L 05/20/24 05:08 Creatinine 0.47 mg/dL (0.55-1.02) L 05/20/24 05:08 Glucose 80 mg/dL (74-106) 05/20/24 05:08 POC Glucose 92 mg/dL (74-106) 05/10/24 11:15 TSH 1.68 uIU/mL (0.358-3.74) 05/04/24 06:10 COAG PT 15.3 SECONDS (11.7-14.9) H 05/09/24 06:04 Pre-Assessment Diagnosis/Proposed Procedure Planned Operative Procedure(s): Esophagogastroduodenoscopy with possible cautery and/or injection therapy. Anesthesia History Anesthesia History - medical donation professional: Anesthesia History - medical donation professional Hx Hospitalization No 10/05/18 13:37 Any Problems With Anesthesia No 05/20/24 09:34 Cholinesterase deficiency No 05/20/24 09:34 You/Your Family Experience No 05/20/24 09:34 fever (hyperthermia) with Relationship Recent Exposure to Contagious No 05/20/24 09:34 Disease Does patient have nerve No 05/20/24 09:34 stimulator Patient instructed to have No 05/20/24 09:34 device shut off --Does patient have Pacemaker No 05/20/24 09:35 or ICD? When Was Last Pacemaker Check QUESTION #4 FULL TEXT: You/Your Family Experience fever (hyperthermia) with Anesthesia Last Oral Intake Last Oral intake: Last Oral Intake NPO since 00:00 05/20/24 09:35 Meds taken in AM with sips of No 05/20/24 09:35 water? Meds patient instructed to take am of surgery PONV PONV - medical donation professional: PONV - medical donation professional Female HX of Motion Sickness HX of N/V After Surgery Non-Smoker Duration of Surgery greater than 60 minutes Number of Risk Factors PONV Score Height & Weight Height & Weight: Anesthesia: Height & Weight Height 5 ft 2 in 05/20/24 09:35 Weight: 69.4 kg 05/20/24 09:35 Body Mass Index (BMI) 28.0 05/20/24 09:35 Respiratory Assessment Respiratory Assessment - medical donation professional: Respiratory Tract Infection Hx - medical donation professional Hx Respiratory Tract Infection No 05/20/24 09:34 STOP Sleep Apnea STOP Sleep Apnea - medical donation professional: STOP Sleep Apnea - medical donation professional Hx Hypertension No 05/18/24 13:08 Hx Sleep Apnea No 05/18/24 18:46 CPAP No 05/18/24 18:32 BIPAP No 05/18/24 13:08 Do you snore loudly (louder No 05/18/24 13:08 than talking or can be heard Do you often feel tired/ Yes 05/18/24 13:08 fatigued/ sleepy during daytime? Has anyone observed you stop No 05/18/24 13:08 breathing during sleep? STOP Results Negative 05/18/24 18:32 QUESTION #5 FULL TEXT : Do you snore loudly (louder than talking or can be heard through closed doors)? Tobacco Use History Tobacco Use History - medical donation professional: Tobacco Use History - medical donation professional Tobacco Use Smoking Status Current some day smoker 05/18/24 21:09 Hx Tobacco Use Yes 05/18/24 13:08 Years Smoking Packs Smoked per Day Smoking Cessation Date was within the last 15 years Hx Smoking Cessation Date Hx Smoking Cessation Counseling Hematologic Medial History Hematologic Hx - medical donation professional: Hematologic Medical Hx - healthcare consulting manager Hx of Blood Transfusion Yes 05/18/24 13:08 Hx of Transfusion in last 3 Yes 05/18/24 13:08 Months Date of Last Transfusion (if 05/05/24 05/18/24 13:08 within last 3 months) Ever experience any problems No 05/18/24 13:08 with transfusion(s)? Specify any problems Hx of Preganancy in last 3 No 05/18/24 13:08 Months Nurse Filling Out Transfusion GOSIA 05/18/24 13:08 & Questions: Date: 05/18/24 05/18/24 13:08 Time: 13:40 05/18/24 13:08 Patient unable to answer at this time (ie. confused, unrespo /Reproduction History /Reproductive History - medical donation professional: /Reproductive Hx- medical donation professional Hx Now No 05/20/24 09:34 Gestational Age (in weeks): EDC: Hx Hx Para Hx Section SAB No 05/20/24 09:34 Active Medications Active Medications: Current Medications Generic Name Dose Route Start Last Admin Trade Name Freq PRN Reason Stop Dose Admin Albuterol Sulfate 2.5 mg 05/18/24 14:50 05/20/24 06:40 Albuterol 2.5 Mg/3 Ml Vial.Neb. INHALATION 2.5 mg Q6HWA.RT ERNST Administration Amlodipine Besylate 5 mg 05/19/24 10:00 05/19/24 10:00 Amlodipine 5 Mg Tablet PO Not Given DAILY [facility] Protocol Atorvastatin Calcium 20 mg 05/18/24 22:00 05/19/24 21:43 Atorvastatin Calcium 20 Mg Tablet PO 20 mg QHS ERNST Administration Budesonide 0.5 mg 05/18/24 14:50 05/20/24 06:40 Budesonide Respules 0.5 Mg/2 Ml Ampul.Neb. INHALATION 0.5 mg Q12H.RT ERNST Administration Pantoprazole Sodium 40 mg/ 110 mls @ 330 mls/hr 05/18/24 22:00 05/20/24 10:07 Sodium Chloride IV Infused Q12 ERNST Infusion Sodium Chloride 250 mls @ 15 mls/hr 05/18/24 13:14 IV .[id number] PRN Additional IVPB Infusion Sodium Chloride 250 mls @ 15 mls/hr 05/18/24 13:14 IV .[id number] PRN Saline Flush Sodium Chloride 1,000 mls @ 75 mls/hr 05/18/24 13:40 05/20/24 10:06 IV 75 mls/hr .[id number] ERNST Infusion Sodium Chloride 10 - 40 ml 05/20/24 08:10 0.9% Saline Lock 10 Ml Syringe IV UD PRN SALINE FLUSH PFSH Medical History AVM (arteriovenous malformation) Colitis Antiplatelet or antithrombotic long-term use Iron (Fe) deficiency anemia Atherosclerosis of [place] arteries of extremities with gangrene, left leg Carotid stenosis, bilateral Tobacco abuse Peripheral arterial occlusive disease Cervical cancer PVD (peripheral vascular disease) Arthritis Home Medications ?Medication ?Instructions ?Recorded ?Last Taken ?Type acetaminophen 650 mg 650 mg PO Q6H PRN Pain 06/25/18 Unknown History tablet,extended release (Tylenol Arthritis Pain) albuterol sulfate 90 mcg/actuation 2 puff inhalation Q6H PRN 01/08/24 Unknown History aerosol inhaler shortness of breath or wheezing amlodipine 5 mg tablet 5 mg PO DAILY 01/08/24 05/03/24 History aspirin 81 mg tablet,delayed 81 mg PO DAILY 01/08/24 05/03/24 History release budesonide-formoterol HFA 160 2 puff inhalation BID 01/08/24 Unknown History mcg-4.5 mcg/actuation aerosol inhaler rosuvastatin 10 mg tablet 10 mg PO DAILY 01/08/24 05/03/24 History rivaroxaban 2.5 mg tablet (Xarelto) 2.5 mg PO BID #60 tabs 01/22/24 05/03/24 Rx cilostazol 50 mg tablet 50 mg PO BID #60 tabs 02/11/24 05/03/24 Rx clopidogrel 75 mg tablet (Plavix) 75 mg PO DAILY #30 tabs 02/11/24 05/03/24 Rx cholecalciferol (vitamin D3) 1,250 1,250 mcg PO TH 05/03/24 Unknown History mcg (50,000 unit) capsule pantoprazole 40 mg tablet,delayed 40 mg PO DAILY #30 tabs 05/10/24 Unknown Rx release (Protonix) oxymetazoline 0.05 % nasal spray 2 spray intranasal BID PRN nasal 05/18/24 Unknown History (12 Hour Nasal Relief Early [place]) congestion Allergy/AdvReac Type Severity Reaction Status Date / Time No Known Allergies Allergy Verified 05/18/24 10:43 Family History Mother Breast cancer Surgical History S/P femoral-femoral bypass surgery S/P LEFT ARTERIOGRAM Social History Smoking Status: Current some day smoker tobacco type: cigarettes alcohol intake: never substance use type: does not use Review of Systems (Anesthesia) ROS Narrative System reviewed and no additional complaints, except as documented.
--- NOTE | 2024-05-20 13:10 | PCM.POST.ANE ---
Anesthesia: Postop Eval I Current Vital Signs Temperature: 99.3 F Pulse Rate: 106 Blood Pressure: 127/59 Respiratory Rate: 18 Pulse Ox: 93 Oxygen Delivery Method: Room Air Assessment Airway patent: Yes Spontaneous unlabored respirations: Yes Mental status: Awake nausea: No Vomiting: No Anesthesia Complication: Yes Anesthesia Complication Comment:: O2 desat d/t profuse coughing, swith to procedural SFM, case completed Fluid Hydration Crystalloid volume administer (ml): 400 Total IV fluid infused: 400 Progress Note Anesthesia document: Postop Eval 1 completed: Yes
--- NOTE | 2024-05-20 13:13 | OP.CCLET_ITS ---
05/20/2024 Vincent Ashley Re : Upper GI endoscopy procedure for Brenda Macedo Dear Dion This procedure was performed on Monday, May 20, 2024. My impressions and recommendations are as follows: Impressions : - Normal esophagus. - Two non-bleeding angiodysplastic lesions in the stomach. Treated with a heater probe. - Non-bleeding gastric ulcers with no stigmata of bleeding. - Normal second portion of the duodenum. - No specimens collected. Recommendations : - [facility]. - Resume regular diet. - Use Protonix (pantoprazole) 40 mg PO BID for the rest of the patient's life. - Use sucralfate tablets 1 gram PO QID for 3 months. - Continue present medications. My findings are described in the full procedure note, which is enclosed. If I can be of further assistance, please feel free to contact me at . Sincerely, Adi Kincaid, 05/20/2024 1:13:00 PM This report has been signed electronically.
--- NOTE | 2024-05-20 13:13 | OP.EGD_ITS ---
Patient Name: Brenda Macedo Procedure Date: 05/20/2024 11:37 AM Date of : 1955 Age: 68 Procedure: Upper GI endoscopy Indications: Acute post hemorrhagic anemia Providers: Adi Kincaid DO Medicines: Monitored Anesthesia Care Patient Profile: This is a 68 year old female. Refer to note in patient chart for documentation of history and physical. Patient has symptoms. Complications: No immediate complications. Procedure: Pre-Anesthesia Assessment: - Prior to the procedure, a History and Physical was performed, and patient medications and allergies were reviewed. The patient is competent. The risks and benefits of the procedure and the sedation options and risks were discussed with the patient. All questions were answered and informed consent was obtained. Patient identification and proposed procedure were verified by the physician in the pre-procedure area. Mental Status Examination: alert and oriented. Airway Examination: normal oropharyngeal airway and neck mobility. Respiratory Examination: clear to auscultation. CV Examination: normal. Prophylactic Antibiotics: The patient does not require prophylactic antibiotics. Prior Anticoagulants: The patient has taken no anticoagulant or antiplatelet agents except for NSAID medication. ASA Grade Assessment: III - A patient with severe systemic disease. After reviewing the risks and benefits, the patient was deemed in satisfactory condition to undergo the procedure. The anesthesia plan was to use monitored anesthesia care (MAC). Immediately prior to administration of medications, the patient was re-assessed for adequacy to receive sedatives. The heart rate, respiratory rate, oxygen saturations, blood pressure, adequacy of pulmonary ventilation, and response to care were monitored throughout the procedure. The physical status of the patient was re-assessed after the procedure. After obtaining informed consent, the endoscope was passed under direct vision. Throughout the procedure, the patient's blood pressure, pulse, and oxygen saturations were monitored continuously. The Endoscope was introduced through the mouth, and advanced to the second part of duodenum. The upper GI endoscopy was accomplished without difficulty. The patient tolerated the procedure well. Scope In: 12:57:08 PM Scope Out: 1:05:28 PM Total Procedure Duration Time 0 hours 8 minutes 20 seconds Findings: Two 5 mm angiodysplastic lesions with no bleeding were found in the cardia and in the gastric fundus. Coagulation for bleeding prevention using heater probe was successful. Estimated blood loss was minimal. Three non-bleeding cratered gastric ulcers with no stigmata of bleeding were found on the greater curvature of the stomach. The largest lesion was 6 mm in largest dimension. The second portion of the duodenum was normal. A mild Schatzki ring was found in the lower third of the esophagus. Impression: - Normal esophagus. - Two non-bleeding angiodysplastic lesions in the stomach. Treated with a heater probe. - Non-bleeding gastric ulcers with no stigmata of bleeding. - Normal second portion of the duodenum. - No specimens collected. Recommendation: - [facility]. - Resume regular diet. - Use Protonix (pantoprazole) 40 mg PO BID for the rest of the patient's life. - Use sucralfate tablets 1 gram PO QID for 3 months. - Continue present medications. Procedure Code(s): --- Professional --- 09654, Esophagogastroduodenoscopy, flexible, transoral; with control of bleeding, any method CPT copyright 2021 [employer]. All rights reserved. The codes documented in this report are preliminary and upon franchise business consultant review may be revised to meet current compliance requirements. Adi Kincaid DO 05/20/2024 1:13:00 PM This report has been signed electronically. Number of Addenda: 0 Note Initiated On: 05/20/2024 11:37 AM
--- NOTE | 2024-05-20 15:09 | PCM.DC ---
Discharge Instructions Diet Discharge Diet: Low fat / Low cholesterol Activity Discharge Activity: Return to Normal Activity Dressing / Incision Call your doctor if you observe: Fever of 101 or Higher, Shortness of breath, Dizziness, Fainting spells, Swelling in the ankles, Chest pain and Increased palpitations (irregular heartbeat) Follow Up Care Test Results: Test results from this visit will be discussed in further detail at your follow-up appointment, if applicable. Discharge Plan Admission Admit Date/Time: 05/18/24 12:13 Attending Provider: Leo Chavez Primary Care Provider: Vincent Ashley NP Discharge Orders/Prescriptions Prescriptions: Continued acetaminophen [Tylenol Arthritis Pain] 650 mg tablet extended release 650 mg PO Q6H PRN (Reason: Pain) clopidogrel [Plavix] 75 mg tablet 75 mg PO DAILY Qty: 30 5RF amlodipine 5 mg tablet 5 mg PO DAILY rosuvastatin 10 mg tablet 10 mg PO DAILY albuterol sulfate 90 mcg/actuation HFA aerosol inhaler 2 puff INHALATION Q6H PRN (Reason: shortness of breath or wheezing) budesonide-formoterol 160-4.5 mcg/actuation HFA aerosol inhaler 2 puff INHALATION BID cholecalciferol (vitamin D3) 1,250 mcg (50,000 unit) capsule 1,250 mcg PO TH oxymetazoline [12 Hour Nasal Relief [place]] 0.05 % spray,non-aerosol 2 spray intranasal BID PRN (Reason: nasal congestion) Xarelto 2.5 mg tablet 2.5 mg PO BID Qty: 60 5RF Changed pantoprazole [Protonix] 40 mg tablet,delayed release (DR/EC) 40 mg PO BID 30 Days Qty: 60 2RF Discontinued cilostazol 50 mg tablet 50 mg PO BID Qty: 60 5RF aspirin 81 mg tablet,delayed release (DR/EC) 81 mg PO DAILY Referrals / Follow Up: Adi Kincaid DO [Med Staff - Active Staff] - Within 3 Months Vincent Ashley NP, [facility] [Primary Care Provider] - Within 1 Week Disposition Disposition (needs filled in before D/C Order can be placed): Home, Self Care
--- NOTE | 2024-05-20 16:09 | DS.PCM_ITS ---
Providers Date of Admission: 05/18/24 Primary Care Physician: Vincent Ashley, [facility] Consultations 05/18/24 13:08 Consult: Gastroenterology Routine Consulting Provider: [facility] Reason for Consult: GI bleed EMERGENT Consult: No MD Notified: Yes Date Notified: 05/18/24 Time Notified: 12:16 Method of Notification: ED Physician Initiated Reason For Visit: GI BLEED Diagnosis Discharge Diagnosis (1) Upper GI bleed: Status: Acute Code(s): K92.2 - Gastrointestinal hemorrhage, unspecified Medications at Discharge Home Medications acetaminophen 650 mg tablet,extended release (Tylenol Arthritis Pain) 650 mg PO Q6H PRN Pain 06/25/18 albuterol sulfate 90 mcg/actuation aerosol inhaler 2 puff inhalation Q6H PRN shortness of breath or wheezing 01/08/24 amlodipine 5 mg tablet 5 mg PO DAILY blood pressure 01/08/24 budesonide-formoterol HFA 160 mcg-4.5 mcg/actuation aerosol inhaler 2 puff inhalation BID breathing 01/08/24 rosuvastatin 10 mg tablet 10 mg PO DAILY cholesterol 01/08/24 rivaroxaban 2.5 mg tablet (Xarelto) 2.5 mg PO BID blood thinner #60 tabs 01/22/24 clopidogrel 75 mg tablet (Plavix) 75 mg PO DAILY antiplatelet #30 tabs 02/11/24 cholecalciferol (vitamin D3) 1,250 mcg (50,000 unit) capsule 1,250 mcg PO TH vitamin 05/03/24 oxymetazoline 0.05 % nasal spray (12 Hour Nasal Relief [place]) 2 spray intranasal BID PRN nasal congestion 05/18/24 pantoprazole 40 mg tablet,delayed release (Protonix) 40 mg PO BID 30 days #60 tabs 05/20/24 sucralfate 1 gram tablet (Carafate) 1 g PO Q6H 30 days #120 tabs 05/20/24 Hospital Course Operations None Procedures Blood transfusion and EGD Summary of Care Provided Minutes Spent on Discharge: 33 Hospital Course: Per HPI: TONY BRADLEY, is a 68 F who presents to the hospital with black tarry stools. She was recently admitted and discharged on 04/20/2024 after she was found to have esophageal varices and 2 bleeding AVMs with no signs of ulcerations. She was gradually restarted on aspirin, Plavix, Xarelto 2.5 mg p.o. twice daily secondary to severe peripheral vascular disease. On discharge her hemoglobin was 8.8 and it is now down to 8.0 with concerns for possible rebleeding. She denies any lightheadedness or dizziness. She noticed the dark stools for the first time this morning. Hospital Course: 1. Acute upper GI bleed with acute blood loss anemia with multiple AVMs with a gastric ulcer with visible vessel and grade 1 esophageal varices?68-year-old female presented to the hospital secondary to dark stools. She had recently been admitted and was found to have angiodysplastic lesions as well as grade 1 esophageal varices. She presented to the hospital because of recurrent dark bloody stools. She did have to receive a blood transfusion and her hemoglobin stayed stable at 8.2. Her initial EGD demonstrated 3 AVMs with a gastric ulcer and visible vessel all of which were treated. She was taken back to the endoscopy suite for repeat EGD today on the day of discharge which demonstrated 2 more AVMs that were treated. Gastroenterology recommended Protonix 40 mg p.o. twice daily indefinitely as well as Carafate for the next 3 months. It was stressed to her the need to continue the Protonix and the Carafate and the follow-up as an outpatient with her primary care doctor for repeat CBCs as well as with Dr. Kincaid for monitoring of her upper GI bleed. I discussed with her the plan for discharge today she expressed understanding of the risks and benefits of going home and would like to go home today. 2. Essential HTN/HLD/severe peripheral vascular disease?I discussed with the vascular surgeon as she had a history of a Fem-fem bypass in January whether we could decrease some of her antiplatelet medications, he recommended discontinuing her aspirin and her cilostazol and continuing only on Plavix and her very low-dose Xarelto if she continues to have bleeding can always narrow further as necessary. Physical Exam Narrative General: Alert, Oriented x3, Cooperative, No apparent distress HEENT: Atraumatic, PERRLA, EOMI, Normocephalic Oral: Moist Mucosa Neck: Supple, No JVD Lungs: Diminished, Normal air movement, No rhonchi, No wheeze, No rales Cardiovascular: Regular rate, Regular Rhythm, Normal S1, Normal S2, No murmurs Abdomen: Soft, Non Tender, Non-Distended, No Hepato-splenomegaly Extremities: No edema, Capillary Refill Less than 3 Seconds Skin: No rashes, No breakdown Musculoskeletal: No Tenderness to Palpation of Joints or Extremities Neurological: No focal neurological deficits, Motor Exam 5/5 strength throughout, Sensory exam intact to light touch and pain Psych/Mental Status: Normal Affect, Appropriate Weight / BMI Weight Weight: 153 lb 0.013 oz Body Mass Index (BMI) 28.0 ABG / Lab / Microbiology Data 05/20/24 05:08 05/20/24 05:08 Laboratory: Laboratory Results - last 24 hr 05/20/24 05:08: WBC 6.6, RBC 3.27 L, Hgb 8.2 L, Hct 27.8 L, MCV 85.0, MCH 25.1 L , MCHC 29.5 L, RDW Std Deviation 60.6 H, RDW Coeff of Alfie 19.8 H, Plt Count 451 H, MPV 9.6, Immature Gran % (Auto) 0.300, Neut % (Auto) 69.6, Lymph % (Auto) 16.1 L, [place] % (Auto) 11.6 H, Eos % (Auto) 1.8, Baso % (Auto) 0.6, Absolute Neuts (auto) 4.6, Absolute Lymphs (auto) 1.07, Nucleated RBC % 0, Sodium 142, Potassium 3.7, Chloride 111 H, Carbon Dioxide 27.0, Anion Gap 4 L, BUN 6 L, C reatinine 0.47 L, Estim Creat Clear Calc 63.14, Est GFR (MDRD) Af Amer 171, Est GFR (MDRD) Non-Af 141, BUN/Creatinine Ratio 12.8, Glucose 80, Calcium 8.6 Microbiology: Microbiology 05/18/24 11:11 Stool Stool Occult Blood (MARTHA) - Final Occult Blood Positive D/C Instructions Discharge Diet: Low fat / Low cholesterol Call your doctor if you observe: Fever of 101 or Higher, Shortness of breath, Dizziness, Fainting spells, Swelling in the ankles, Chest pain and Increased palpitations (irregular heartbeat) Meaningful Use Info Meaningful Use Meaningful Use Diagnoses (Choose all that apply): None applicable Ischemic Stroke Statin Dosing Therapy Reference: STATIN DOSE THERAPY REFERENCE: * Patients > 75 years receive moderate or high dose statin therapy. * Patients 75 years or YOUNGER should receive HIGH intensity statin dose unless contraindicated. You will be required to document reason for non-treatment if statin daily dose does not meet guidelines. HIGH DOSE STATIN THERAPY DAILY Atorvastatin > than or = to 40 mg Rosuvastatin > than or = to 20 mg Amlodipine + Atorvastatin > than or = to 2.5/40 mg Ezetimibe + Simvastatin 10/80 mg Simvastatin 80mg Discharge Plan Admission Admit Date/Time: 05/18/24 12:13 Attending Provider: Leo Chavez Primary Care Provider: Vincent Ashley NP Instructions Additional Instructions / Restrictions: Follow-up with your PCP and obtain a CBC to check for your anemia Discharge Orders/Prescriptions Prescriptions: New sucralfate [Carafate] 1 gram tablet 1 g PO Q6H 30 Days Qty: 120 2RF Continued acetaminophen [Tylenol Arthritis Pain] 650 mg tablet extended release 650 mg PO Q6H PRN (Reason: Pain) clopidogrel [Plavix] 75 mg tablet 75 mg PO DAILY Qty: 30 5RF amlodipine 5 mg tablet 5 mg PO DAILY rosuvastatin 10 mg tablet 10 mg PO DAILY albuterol sulfate 90 mcg/actuation HFA aerosol inhaler 2 puff INHALATION Q6H PRN (Reason: shortness of breath or wheezing) budesonide-formoterol 160-4.5 mcg/actuation HFA aerosol inhaler 2 puff INHALATION BID cholecalciferol (vitamin D3) 1,250 mcg (50,000 unit) capsule 1,250 mcg PO TH oxymetazoline [12 Hour Nasal Relief [place]] 0.05 % spray,non-aerosol 2 spray intranasal BID PRN (Reason: nasal congestion) Xarelto 2.5 mg tablet 2.5 mg PO BID Qty: 60 5RF Changed pantoprazole [Protonix] 40 mg tablet,delayed release (DR/EC) 40 mg PO BID 30 Days Qty: 60 2RF Discontinued cilostazol 50 mg tablet 50 mg PO BID Qty: 60 5RF aspirin 81 mg tablet,delayed release (DR/EC) 81 mg PO DAILY Referrals / Follow Up: Adi Kincaid DO [Med Staff - Active Staff] - 07/05/24 8:00 am Vincent Ashley [facility], [facility] [Primary Care Provider] - 05/27/24 11:00 am Disposition Disposition (needs filled in before D/C Order can be placed): Home, Self Care Charges/Coding Visit Charges Inpatient E&M: 02618 Disch Hosp >30min
== END 2024-05-20 17:08 | disposition home or self-care (01) | DRG 378 ==
LOC: ED 12:27 → PCU 12:49
PROVIDERS: Internal Medicine; Internal Medicine Gastroenterology; Admitting Provider Family Medicine; Emergency Provider Emergency Medicine; PCP Nurse Practitioner Family; Visit Provider Family Medicine
PROC: 0DJ08ZZ Inspection of Upper Intestinal Tract, Via Natural or Artificial Opening Endoscopic (ICD-10-PCS; CPT 43235; principal; 2024-05-18 17:00)
DX: K31.811 Angiodysplasia of stomach and duodenum with bleeding (principal); D62 Acute posthemorrhagic anemia; J44.9 Chronic obstructive pulmonary disease, unspecified; I85.01 Esophageal varices with bleeding; I10 Essential (primary) hypertension; I73.9 Peripheral vascular disease, unspecified; K22.2 Esophageal obstruction; E78.5 Hyperlipidemia, unspecified; F17.200 Nicotine dependence, unspecified, uncomplicated; K25.4 Chronic or unspecified gastric ulcer with hemorrhage; Z79.01 Long term (current) use of anticoagulants; Z79.82 Long term (current) use of aspirin; Z79.02 Long term (current) use of antithrombotics/antiplatelets; Z79.899 Other long term (current) drug therapy; Z95.820 Peripheral vascular angioplasty status with implants and grafts
CPT/HCPCS: 36415; 80048; 80053; 82274; 85014; 85018; 85025; 86850; 86900; 86901; 86920; 94640; 99283; J7030; P9016; A4216; J2405

== ENCOUNTER 2024-05-22 09:15 | Inpatient (IN) | payer MEDICARE, SELFPAY ==
[2024-05-22] VITALS (30 sets, daily range): BP systolic 83–144; BP diastolic 36–97; PULSE 100–139; RESP 14–31; TEMP 35.8–37; O2SAT 90–100; BMI 27.5; BMI 26.4; BMI 26.5
--- NOTE | 2024-05-22 09:22 | EKG12_ITS ---
Test Reason : GI BLEED Blood Pressure : / mmHG Vent. Rate : 110 BPM Atrial Rate : 110 BPM P-R Int : 130 ms QRS Dur : 070 ms QT Int : 352 ms P-R-T Axes : 080 054 076 degrees QTc Int : 476 ms Sinus tachycardia Otherwise normal ECG Confirmed by Rashel Hansen ([id number]), content editor DEWEY BAEZA ([id number]) on 05/23/2024 2:06:52 PM Referred By: Confirmed By:Rashel Hansen
--- NOTE | 2024-05-22 09:26 | ED.VIS.GI ---
HPI HPI - GI History of Present Illness Chief Complaint: GI Bleed Detail of Chief Complaint: GI bleed Informant: patient and family Abdominal Pain/Flank Pain Onset: Today Context: Sudden Onset Timing: Continuous Current Severity: Severe Maximum Severity: Severe Worsened by: - (Not applicable) Relieved by: - (Not applicable) Nausea/Vomiting/Emesis GI Symptom: Positive for Nausea and Vomiting Onset: Today and Hours Quality: Positive for Hematemesis Severity: Severe Diarrhea/Melena/Hematochezia GI Symptom: Positive for Melena; Negative for Diarrhea or Hematochezia Onset: Today Associated Symptoms Associated Symptoms: Negative for Dysuria, Frequency, Hematuria or Urgency Narrative Narrative: Patient is a 68-year-old woman. She has history of AV malformation, upper GI bleed requiring transfusion past 2 admissions, PAD, atherosclerotic heart disease, kidney disease who awoke this morning vomiting blood. She is vomited blood several times. She had black stool this morning. This is her first bowel movement since she was discharged on Thursday. Per Dr. Kincaid's note she had a visible gastric ulcer and also had grade 1 esophageal varices. She denies history of alcohol use, cirrhosis or hepatitis. Apparently she is on Xarelto.. She was on 4 different blood thinners. She is only on 2 at this time. Patient denies headache, visual, ocular auditory symptoms. Patient [place] epistaxis. Patient [place] cardiac or respiratory symptoms. Patient denies pain in her extremities from the fall. She states she is compliant with her medication. Prior similar symptoms: Yes Recent Illness/Hospitalization: Yes [facility] Medical History AVM (arteriovenous malformation) Colitis Antiplatelet or antithrombotic long-term use Iron (Fe) deficiency anemia Atherosclerosis of [place] arteries of extremities with gangrene, left leg Carotid stenosis, bilateral Tobacco abuse Peripheral arterial occlusive disease Cervical cancer PVD (peripheral vascular disease) Arthritis Home Medications ?Medication ?Instructions ?Recorded ?Last Taken ?Type acetaminophen 650 mg 650 mg PO Q6H PRN Pain 06/25/18 Unknown History tablet,extended release (Tylenol Arthritis Pain) albuterol sulfate 90 mcg/actuation 2 puff inhalation Q6H PRN 01/08/24 Unknown History aerosol inhaler shortness of breath or wheezing amlodipine 5 mg tablet 5 mg PO DAILY blood pressure 01/08/24 05/03/24 History budesonide-formoterol HFA 160 2 puff inhalation BID breathing 01/08/24 Unknown History mcg-4.5 mcg/actuation aerosol inhaler rosuvastatin 10 mg tablet 10 mg PO DAILY cholesterol 01/08/24 05/03/24 History rivaroxaban 2.5 mg tablet (Xarelto) 2.5 mg PO BID blood thinner #60 01/22/24 05/03/24 Rx tabs clopidogrel 75 mg tablet (Plavix) 75 mg PO DAILY antiplatelet #30 02/11/24 05/03/24 Rx tabs cholecalciferol (vitamin D3) 1,250 1,250 mcg PO TH vitamin 05/03/24 Unknown History mcg (50,000 unit) capsule oxymetazoline 0.05 % nasal spray 2 spray intranasal BID PRN nasal 05/18/24 Unknown History (12 Hour Nasal Relief [place]) congestion pantoprazole 40 mg tablet,delayed 40 mg PO BID 30 days #60 tabs 05/20/24 Unknown Rx release (Protonix) sucralfate 1 gram tablet (Carafate) 1 g PO Q6H 30 days #120 tabs 05/20/24 Unknown Rx Allergy/AdvReac Type Severity Reaction Status Date / Time No Known Allergies Allergy Verified 05/22/24 09:18 Family History Mother Breast cancer Surgical History S/P femoral-femoral bypass surgery S/P LEFT ARTERIOGRAM Social History Smoking Status: Current some day smoker tobacco type: cigarettes alcohol intake: never substance use type: does not use ROS ROS ED Constitutional Constitutional ED: Denies chills, fever(s), subjective or sweats ENT ENT ED: Denies ear pain, rhinorrhea or sore throat Cardiovascular Cardiovascular: Reports palpitations and racing heartbeat; Denies chest pain, orthopnea or paroxysmal nocturnal dyspnea Respiratory/Chest Respiratory/Chest: Reports dyspnea on exertion; Denies cough, dyspnea, orthopnea or paroxysmal nocturnal dyspnea Gastrointestinal Gastrointestinal: Reports melena, nausea and vomiting; Denies abdominal pain Genitourinary Genitourinary ED: Denies dysuria, hematuria or urinary frequency Musculoskeletal Musculoskeletal: Denies arthralgias, back pain, myalgias or neck pain Neurologic Neurologic: Denies headache(s) or paresthesias Psychiatric Psychiatric: Reports anxiety Hematologic/Lymphatic Hematologic/Lymphatic: Reports easy bleeding and easy bruising EXAM Physical Exam Const Vital Signs: 05/22/24 09:16 05/22/24 09:18 Temperature 96.5 F L 96.5 F L Temperature Source Temporal Temporal Pulse Rate 119 H 119 H Respiratory Rate 14 22 H Blood Pressure 83/36 L 83/36 L Blood Pressure Mean 51 51 Pulse Ox 94 94 Oxygen Delivery Method Room Air Room Air Positive well nourished and well developed Constitutional Narrative: Patient appears pale. She is hypotensive and tachycardic. General Appearance ED: well developed and pallor HEENT Reports moist mucous membranes normocephalic and atraumatic Eyes PERRL and EOMs intact bilaterally General Eye ED: Yes pale conjunctiva; Negative for scleral icterus Neck no lymphadenopathy, supple and no JVD Resp normal respiratory effort and clear to auscultation bilaterally Cardio regular rhythm, S1 normal heart sound, S2 normal heart sound and no murmurs Rate: tachycardic GI non-tender, non-distended and no masses Inspection: Negative for abdominal distention Auscultation: hyperactive bowel sounds Back/Spine no CVA tenderness Extremity full ROM General Extremety ED: Negative for tenderness Neuro CN's II-XII intact bilaterally and moves all extremities Sensorium / Orientation: alert Psych mental status grossly normal and thought process normal Skin no wounds General Skin Exam: pallor; Negative for jaundice MDM MDM MDM Narrative Medical decision making narrative: Patient has hematemesis. Uncertain whether this is due to gastric ulcer that was recently noted on EGD with visible vessel versus esophageal bleed. Since patient is hypotensive she received 1 L of normal saline wide open. She was typed and screened initially after evaluating patient she was typed and crossed for 2 units to receive 1 unit of blood. Spoke with Dr. Kincaid. Plan is octreotide, oh, Protonix IV push and drip, Rocephin, Kcentra and admission to ICU. Will contact hospitalist. Will obtain EKG to rule out any cardiac ischemia since she is hypotensive and elderly. Prior records were reviewed. History & Record Review Additional record(s) reviewed:: Prior outpatient record, Prior ED visit and Prior labs Lab Data Attestation: I reviewed the patient's lab results. Lab results narrative: H&H is 9.1 and 30.5 which is higher than prior. MCV is 85. Electrolyte panel is remarkable for a glucose of 187. CO2 anion gap is normal. BUN and creatinine are normal. Labs: Laboratory Results - last 24 hr 05/22/24 09:20 WBC 13.3 H RBC 3.61 L Hgb 9.1 L Hct 30.5 L MCV 84.5 MCH 25.2 L MCHC 29.8 L RDW Std Deviation 63.0 H RDW Coeff of [place] 20.3 H Plt Count 682 H MPV 9.4 Immature Gran % (Auto) 0.500 Neut % (Auto) 75.3 H Lymph % (Auto) 15.0 L [place] % (Auto) 7.5 Eos % (Auto) 1.2 Baso % (Auto) 0.5 Absolute Neuts (auto) 10.0 H Absolute Lymphs (auto) 1.99 Nucleated RBC % 0 Sodium 143 Potassium 3.6 Chloride 108 H Carbon Dioxide 27.0 Anion Gap 8 BUN 13 Creatinine 0.95 Estim Creat Clear Calc 52.77 Est GFR (MDRD) Af Amer 76 Est GFR (MDRD) Non-Af 63 BUN/Creatinine Ratio 13.7 Glucose 187 H Calcium 9.0 Rhythm Strip Rhythm Strip: Sinus Tach Rate: 116 Ectopy: None EKG Initial EKG: Attestation: I personally reviewed and interpreted this EKG as follows: Interpretation: Sinus Tachycardia (Rate is 110. There is no ischemic changes noted. PA interval is 130 ms. Cures duration 70 ms. QT duration 152 ms. [place] is normal.) Management Discussion w/another healthcare provider: Hospitalist, Central Office Equipment Engineer and Pharmacist Treatment and Re-Evaluation :: Patient's pressure responded to fluids. Will contact hospitalist for admission to ICU. Critical Care Time Critical Care Time: Yes Critical care time (excluding procedures): 30-74 minutes (33), Including time spent: (History, physical, documentation, review of prior records, initiation of therapy for hemorrhagic shock), Discussing w/Patient &/or Family/Pharmacy Technician Program Director, Discussing w/Consultants (Dr. Kincaid and hospitalist) and Arranging Admission or Transfer Discharge Plan Dx/Rx/DC Orders Clinical Impression: Acute upper gastrointestinal hemorrhage, Transfusion of blood during current hospitalization, Peripheral arterial occlusive disease, Acute hypotension, Hemorrhagic shock, Anticoagulant long-term use Disposition Disposition: Acute Care Hospital [facility]
[2024-05-22] MEDS: 0.9% Normal Saline (1000mL) 1,000 ML 999 ML IV (09:40)
[2024-05-22 09:44] LABS: Absolute Lymphocyte Count 1.99 X10^3/uL (0.83-4.51); Basophil# 0.07 X10^3/uL; Basophil% 0.5 % (0-1); Eosinophil# 0.16 X10^3/uL; Eosinophils% 1.2 % (0-5); Hematocrit 30.5 % (37-47); Hemoglobin 9.1 g/dL (12.0-15.0); Lymphocyte # 1.99 X10^3/ul (0.83-4.51); Mean Corp Hgb Conc 29.8 g/dL (32-36); Mean Corpuscular Hgb 25.2 pg (27.0-32.0); Mean Corpuscular Volume 84.5 fL (81-99); Mean Platelet Vol. 9.4 fl (6.2-12.0); Monocyte% 7.5 % (0-10); NRBC Flagged by Analyzer 0 % (0-5); Neutrophil # 10.02 X10^3/uL (2.7-7.7); Neutrophil % 75.3 % (47-70); POSITIVE MORPHOLOGY YES; Platelet Count 682 K/mm3 (150-450); RBC Distribution Width CV 20.3 % (11.6-14.6); Red Blood Count 3.61 M/mm3 (4.2-5.4); White Blood Count 13.3 K/mm3 (4.4-11.0)
[2024-05-22 09:46] LABS: Differential Indicated SCAN CRITERIA MET
[2024-05-22 09:56] LABS: Anion Gap 8 (5-15); BUN 13 mg/dL (7-18); BUN/Creat Ratio 13.7 RATIO (10-20); Chloride 108 mmol/L (98-107); Creatinine, Serum 0.95 mg/dL (0.55-1.02); EST Glomerular Filtration Rate 63 mL/min (>60); Est Glom Filt Rate - Afr Amer 76 mL/min (>60); Estimated Creatinine Clearance 52.77 ml/min; Glucose 187 mg/dL (74-106); Potassium 3.6 mmol/L (3.5-5.1); Sodium Level 143 mmol/L (136-145)
[2024-05-22] MEDS: Ceftriaxone 1 GM/50 ML BAG IV (09:59)
--- NOTE | 2024-05-22 10:05 | ED.RN ---
PT IS REFUSING THE NG STATING SHE WANTS DR FRIEND TO PUT IT IN WHILE SHES ASLEEP. PHYSICIAN NOTIFIED
--- NOTE | 2024-05-22 10:11 | HP.PCM.HOS_ITS ---
HPI - General General Date of Admission: 05/22/24 HPI Narrative TONY BRADLEY, is a 68 F who presents to the hospital with recurrent GI bleeding. She was recently discharged on 05/20/2024 after a GI bleed and was found to have had 5 AVMs at that time that were treated as well as a gastric ulcer with a visible vessel. She was discharged on twice daily PPI as well as Carafate. I discussed with vascular surgery at that time about decreasing her blood thinners and antiplatelets and so she was decreased from aspirin, cilostazol, Plavix, Xarelto to Plavix and Xarelto only. The Xarelto dosing is minimal at 2.5 mg p.o. twice daily because she recently had a femoral to femoral bypass. Will now discontinue all antiplatelets and anticoagulants. She presents with hematemesis that began this morning and hypotension necessitating ICU admission. She was given a bolus of octreotide as well as Protonix and gastroenterology was notified by the ED physician. COUNT INCLUDES THE [facility] Medical History AVM (arteriovenous malformation) Colitis Antiplatelet or antithrombotic long-term use Iron (Fe) deficiency anemia Atherosclerosis of [place] arteries of extremities with gangrene, left leg Carotid stenosis, bilateral Tobacco abuse Peripheral arterial occlusive disease Cervical cancer PVD (peripheral vascular disease) Arthritis Home Medications ?Medication ?Instructions ?Recorded ?Last Taken ?Type acetaminophen 650 mg 650 mg PO Q6H PRN Pain 06/25/18 05/21/24 History tablet,extended release (Tylenol Arthritis Pain) albuterol sulfate 90 mcg/actuation 2 puff inhalation Q6H PRN 01/08/24 Unknown History aerosol inhaler shortness of breath or wheezing amlodipine 5 mg tablet 5 mg PO DAILY blood pressure 01/08/24 05/21/24 History budesonide-formoterol HFA 160 2 puff inhalation BID breathing 01/08/24 05/21/24 History mcg-4.5 mcg/actuation aerosol inhaler rosuvastatin 10 mg tablet 10 mg PO DAILY cholesterol 01/08/24 05/21/24 History rivaroxaban 2.5 mg tablet (Xarelto) 2.5 mg PO BID blood thinner #60 01/22/24 05/21/24 Rx tabs clopidogrel 75 mg tablet (Plavix) 75 mg PO DAILY antiplatelet #30 02/11/24 05/21/24 Rx tabs cholecalciferol (vitamin D3) 1,250 1,250 mcg PO TH vitamin 05/03/24 05/19/24 History mcg (50,000 unit) capsule oxymetazoline 0.05 % nasal spray 2 spray intranasal BID PRN nasal 05/18/24 Unknown History (12 Hour Nasal Relief [place]) congestion pantoprazole 40 mg tablet,delayed 40 mg PO BID 30 days #60 tabs 05/20/24 05/21/24 Rx release (Protonix) sucralfate 1 gram tablet (Carafate) 1 g PO Q6H 30 days #120 tabs 05/20/24 05/21/24 Rx Allergy/AdvReac Type Severity Reaction Status Date / Time No Known Allergies Allergy Verified 05/22/24 09:18 Family History Mother Breast cancer Surgical History S/P femoral-femoral bypass surgery S/P LEFT ARTERIOGRAM Social History Smoking Status: Current some day smoker tobacco type: cigarettes alcohol intake: never substance use type: does not use ROS Constitutional Constitutional: Denies chills, fatigue, fever(s) or malaise Eyes Eyes: Denies blurry vision ENT HEENT: Denies headache(s) or nasal discharge Cardiovascular Cardiovascular: Reports lightheadedness; Denies chest pain, dyspnea on exertion or syncope Respiratory/Chest Respiratory/Chest: Denies cough, shortness of breath at rest or shortness of breath with exertion Gastrointestinal Gastrointestinal: Reports hematemesis and melena; Denies constipation, diarrhea, nausea or vomiting Genitourinary Genitourinary: Denies dysuria Neurologic Neurologic: Denies focal weakness, numbness or tremor(s) Psychiatric Psychiatric: Denies anxiety or depression Vital Signs Vital Signs Vital Signs: 05/22/24 09:16 05/22/24 09:18 Temperature 96.5 F L 96.5 F L Temperature Source Temporal Temporal Pulse Rate 119 H 119 H Respiratory Rate 14 22 H Blood Pressure 83/36 L 83/36 L Blood Pressure Mean 51 51 Pulse Ox 94 94 Oxygen Delivery Method Room Air Room Air Weight Weight: 150 lb 9.211 oz Body Mass Index (BMI) 27.5 Physical Exam Narrative General: Alert, Oriented x3, Cooperative, No apparent distress HEENT: Atraumatic, PERRLA, EOMI, Normocephalic Oral: Moist Mucosa Neck: Supple, No JVD Lungs: Diminished, Normal air movement, No rhonchi, No wheeze, No rales Cardiovascular: Tachycardic, Regular Rhythm, Normal S1, Normal S2, No murmurs Abdomen: Soft, Non Tender, Non-Distended, No Hepato-splenomegaly Extremities: No edema, Capillary Refill Less than 3 Seconds Skin: No rashes, No breakdown Musculoskeletal: No Tenderness to Palpation of Joints or Extremities Neurological: No focal neurological deficits, Motor Exam 5/5 strength throughout, Sensory exam intact to light touch and pain Psych/Mental Status: Normal Affect, Appropriate Results Lab / Micro Data 05/22/24 09:20 05/22/24 09:20 Labs: Laboratory Results - last 24 hr 05/22/24 09:20: WBC 13.3 H, RBC 3.61 L, Hgb 9.1 L, Hct 30.5 L, MCV 84.5, MCH 25.2 L, MCHC 29.8 L, RDW Std Deviation 63.0 H, RDW Coeff of Alfie 20.3 H, Plt Count 682 H, MPV 9.4, Immature Gran % (Auto) 0.500, Neut % (Auto) 75.3 H, Lymph % (Auto) 15.0 L, [place] % (Auto) 7.5, Eos % (Auto) 1.2, Baso % (Auto) 0.5, A bsolute Neuts (auto) 10.0 H, Absolute Lymphs (auto) 1.99, Nucleated RBC % 0, Sodium 143, Potassium 3.6, Chloride 108 H, Carbon Dioxide 27.0, Anion Gap 8, BUN 13, Creatinine 0.95, Estim Creat Clear Calc 52.77, Est GFR (MDRD) Af Amer 76, Est GFR (MDRD) Non-Af 63, BUN/Creatinine Ratio 13.7, Glucose 187 H, Calcium 9.0 Rhythm Strip Rhythm Strip: Sinus Tach Rate: 116 Ectopy: None Assessment & Plan Assessment/Plan (1) Acute upper gastrointestinal hemorrhage: PLAN: Plan 1. Acute upper GI bleed with hypotension ? Will transfer to the ICU ? Continue with octreotide and PPI IV ? N.p.o., continue with Zofran ?Will transfuse 2 units and have another 4 on hold with H&H every 4 hours ? Will initiate pressor support if if she progresses to shock however I believe at this point it is transfusions that are the most beneficial ? She does have a history of grade 1 esophageal varices in the absence of cirrhosis and multiple AVMs as well as a gastric ulcer with a visible vessel on the previous EGD ? She was able to swallow the Protonix pills but they were a bit of a struggle may need omeprazole or lansoprazole on discharge where the capsules can be opened and sprinkled in applesauce to ensure continued compliance ? No need for antibiotics as she does not have cirrhosis or ascites 2. Essential HTN/HLD/severe peripheral vascular disease ? Will hold all of her home blood pressure medications ? She is n.p.o. so we will hold Crestor ?We will discontinue all antiplatelets and blood thinners during this admission and on discharge DVT: SCDs 75 minutes was spent on direct patient care, including documentation as well as chart review and collaboration with colleagues Charges/Coding Visit Charges Inpatient E&M: 68063 Init Hosp L3
[2024-05-22] MEDS: HUM PROTHROMBIN CPLX(PCC)-LANS 3,240 UNIT in Viaflex Bag 1 BAG 491 UNIT IV (10:25)
[2024-05-22 10:26] LABS: Anisocytosis 2+; Differential Comment SCANNED; Macrocytosis 1+; Microcytosis 1+
[2024-05-22] MEDS: OCTREOTIDE IV ×3 (10:26→21:45)
[2024-05-22] MEDS: NORMAL SALINE 0.9% IV ×3 (10:26→21:45)
[2024-05-22] MEDS: Pantoprazole Sodium 80 MG in 0.9% Normal Saline (100mL Bag) 80 ML 10 MG CONT INF ×2 (10:56→19:31)
[2024-05-22] MEDS: Pantoprazole Sodium 80 MG in 0.9% Normal Saline (50mL Bag) 15 ML 420 MG IV BOLUS (10:56)
[2024-05-22 11:04] LABS: International Normalized Ratio 1.4; Prothrombin Time (Protime)PT. 16.6 SECONDS (11.7-14.9)
[2024-05-22] MEDS: Ondansetron 4 MG/2 ML Vial IV (13:05)
[2024-05-22 13:37] LABS: Reflex Lactate? Y
--- NOTE | 2024-05-22 13:43 | PRE.ANES_ITS ---
ASA Classification* ASA Classification ASA Classification: 3 and E Assessment & Plan Anesthesia* Anesthesia Assessment Anesthesia Assessment: Discussed sedation and/or anesthesia options, risks, benefits, and alternatives with patient/parents/legal guardian/POA. Questions invited. The patient/parents/legal guardian/POA seems to understand and agrees to proceed with anesthesia plan. Reviewed the physical assessment, medical history, allergy history and patient home medications list prior to surgery/procedure/anesthetic and documented any changes. Performed airway and anesthesia risk assessments. Anesthesia Type Anesthesia Type: MAC History Source History Obtained from:: Patient and Chart Anesthesia Focused Assessment* Temperature: 97.3 F Pulse Rate: 108 Blood Pressure: 123/86 Respiratory Rate: 22 Pulse Ox: 100 Oxygen Delivery Method: Nasal Cannula (2 L of oxygen per minute) Airway Assessment Mouth opens: >3 cm Mallampati Score: IV Teeth Condition: Dentures (Dentures are out) Neck Range of motion (ROM): Limited ROM (Somewhat decreased extension) Pertinent Findings EKG Pertinent Findings:: May 03, 2024. Sinus tachycardia at [address] segment abnormality. ECHO Pertinent Findings:: May 05, 2024. Ejection fraction 60%. No aortic stenosis noted Focused Labs Anesthesia Preop lab: CBC WBC 13.3 K/mm3 (4.4-11.0) H 05/22/24 09:20 RBC 3.61 M/mm3 (4.2-5.4) L 05/22/24 09:20 Hgb 9.1 g/dL (12.0-15.0) L 05/22/24 09:20 Hct 30.5 % (37-47) L 05/22/24 09:20 Plt Count 682 K/mm3 (150-450) H 05/22/24 09:20 CHEMISTRY Potassium 3.6 mmol/L (3.5-5.1) 05/22/24 09:20 Sodium 143 mmol/L (136-145) 05/22/24 09:20 Magnesium 1.8 mg/dL (1.6-2.6) 05/09/24 06:04 Phosphorus 2.5 mg/dL (2.5-4.9) 05/09/24 06:04 BUN 13 mg/dL (7-18) 05/22/24 09:20 Creatinine 0.95 mg/dL (0.55-1.02) 05/22/24 09:20 Glucose 187 mg/dL (74-106) H 05/22/24 09:20 POC Glucose 92 mg/dL (74-106) 05/10/24 11:15 TSH 1.68 uIU/mL (0.358-3.74) 05/04/24 06:10 COAG PT 16.6 SECONDS (11.7-14.9) H 05/22/24 09:20 Pre-Assessment Diagnosis/Proposed Procedure Planned Operative Procedure(s): EGD Anesthesia History Anesthesia History - agriculture extension specialist: Anesthesia History - agriculture extension specialist Hx Hospitalization No 10/05/18 13:37 Any Problems With Anesthesia No 05/22/24 13:11 Cholinesterase deficiency No 05/22/24 13:11 You/Your Family Experience No 05/22/24 13:11 fever (hyperthermia) with Relationship Recent Exposure to Contagious No 05/22/24 13:11 Disease Does patient have nerve No 05/22/24 13:11 stimulator Patient instructed to have device shut off --Does patient have Pacemaker No 05/22/24 13:11 or ICD? When Was Last Pacemaker Check QUESTION #4 FULL TEXT: You/Your Family Experience fever (hyperthermia) with Anesthesia Last Oral Intake Last Oral intake: Last Oral Intake NPO since 00:00 05/22/24 13:11 Meds taken in AM with sips of No 05/22/24 13:11 water? Meds patient instructed to take am of surgery PONV PONV - agriculture extension specialist: PONV - agriculture extension specialist Female HX of Motion Sickness HX of N/V After Surgery Non-Smoker Duration of Surgery greater than 60 minutes Number of Risk Factors PONV Score Height & Weight Height & Weight: Anesthesia: Height & Weight Height 5 ft 1.81 in 05/22/24 13:11 Weight: 65.4 kg 05/22/24 13:11 Body Mass Index (BMI) 26.5 05/22/24 13:11 Respiratory Assessment Respiratory Assessment - agriculture extension specialist: Respiratory Tract Infection Hx - agriculture extension specialist Hx Respiratory Tract Infection No 05/22/24 13:11 STOP Sleep Apnea STOP Sleep Apnea - agriculture extension specialist: STOP Sleep Apnea - agriculture extension specialist Hx Hypertension Yes 05/22/24 12:06 Hx Sleep Apnea No 05/22/24 12:06 CPAP No 05/20/24 13:11 BIPAP No 05/18/24 13:08 Do you snore loudly (louder No 05/22/24 12:06 than talking or can be heard Do you often feel tired/ No 05/22/24 12:06 fatigued/ sleepy during daytime? Has anyone observed you stop No 05/22/24 12:06 breathing during sleep? STOP Results Negative 05/22/24 12:06 QUESTION #5 FULL TEXT : Do you snore loudly (louder than talking or can be heard through closed doors)? Tobacco Use History Tobacco Use History - agriculture extension specialist: Tobacco Use History - agriculture extension specialist Tobacco Use Smoking Status Current some day smoker 05/22/24 13:23 Hx Tobacco Use Yes 05/22/24 12:06 Years Smoking Packs Smoked per Day Smoking Cessation Date was within the last 15 years Hx Smoking Cessation Date Hx Smoking Cessation Counseling Hematologic Medial History Hematologic Hx - agriculture extension specialist: Hematologic Medical Hx - substation design draftsperson Hx of Blood Transfusion Yes 05/22/24 12:06 Hx of Transfusion in last 3 Yes 05/22/24 12:06 Months Date of Last Transfusion (if 05/16/2024 05/22/24 12:06 within last 3 months) Ever experience any problems No 05/22/24 12:06 with transfusion(s)? Specify any problems Hx of Preganancy in last 3 No 05/22/24 12:06 Months Nurse Filling Out Transfusion [id number] 05/22/24 12:06 & Questions: Date: 05/22/24 05/22/24 12:06 Time: 12:17 05/22/24 12:06 Patient unable to answer at this time (ie. confused, unrespo /Reproduction History /Reproductive History - agriculture extension specialist: /Reproductive Hx- agriculture extension specialist Hx Now No 05/22/24 13:11 Gestational Age (in weeks): EDC: Hx Hx Para Hx Section SAB No 05/22/24 13:11 Active Medications Active Medications: Current Medications Generic Name Dose Route Start Last Admin Trade Name Freq PRN Reason Stop Dose Admin Pantoprazole Sodium 80 mg/ 100 mls @ 10 mls/hr 05/22/24 09:30 05/22/24 10:56 Sodium Chloride CONT INF 10 mls/hr Q10H ERNST Administration Octreotide Acetate 0.1 mg/ 51 mls @ 204 mls/hr 05/22/24 09:35 05/22/24 10:55 Sodium Chloride IV Infused Q8 ERNST Infusion Sodium Chloride 250 mls @ 15 mls/hr 05/22/24 12:23 IV .[id number] PRN Additional IVPB Infusion Sodium Chloride 250 mls @ 15 mls/hr 05/22/24 12:23 IV .[id number] PRN Saline Flush Ondansetron HCl 4 mg 05/22/24 12:40 05/22/24 13:05 Ondansetron 4 Mg/2 Ml Vial IV 4 mg Q6H PRN PRN Administration NAUSEA/VOMITING Sodium Chloride 10 - 40 ml 05/22/24 12:23 0.9% Saline Lock 10 Ml Syringe IV UD PRN SALINE FLUSH Sucralfate 1 gm 05/22/24 11:47 05/22/24 13:00 Sucralfate 1 Gm Tablet PO Not Given 1HR_ACHS ERNST PFSH Medical History AVM (arteriovenous malformation) Colitis Antiplatelet or antithrombotic long-term use Iron (Fe) deficiency anemia Atherosclerosis of [place] arteries of extremities with gangrene, left leg Carotid stenosis, bilateral Tobacco abuse Peripheral arterial occlusive disease Cervical cancer PVD (peripheral vascular disease) Arthritis Home Medications ?Medication ?Instructions ?Recorded ?Last Taken ?Type acetaminophen 650 mg 650 mg PO Q6H PRN Pain 06/25/18 05/21/24 History tablet,extended release (Tylenol Arthritis Pain) albuterol sulfate 90 mcg/actuation 2 puff inhalation Q6H PRN 01/08/24 Unknown History aerosol inhaler shortness of breath or wheezing amlodipine 5 mg tablet 5 mg PO DAILY blood pressure 01/08/24 05/21/24 History budesonide-formoterol HFA 160 2 puff inhalation BID breathing 01/08/24 05/21/24 History mcg-4.5 mcg/actuation aerosol inhaler rosuvastatin 10 mg tablet 10 mg PO DAILY cholesterol 01/08/24 05/21/24 History rivaroxaban 2.5 mg tablet (Xarelto) 2.5 mg PO BID blood thinner #60 01/22/24 05/21/24 Rx tabs clopidogrel 75 mg tablet (Plavix) 75 mg PO DAILY antiplatelet #30 02/11/24 05/21/24 Rx tabs cholecalciferol (vitamin D3) 1,250 1,250 mcg PO TH vitamin 05/03/24 05/19/24 History mcg (50,000 unit) capsule oxymetazoline 0.05 % nasal spray 2 spray intranasal BID PRN nasal 05/18/24 Unknown History (12 Hour Nasal Relief [place]) congestion pantoprazole 40 mg tablet,delayed 40 mg PO BID 30 days #60 tabs 05/20/24 05/21/24 Rx release (Protonix) sucralfate 1 gram tablet (Carafate) 1 g PO Q6H 30 days #120 tabs 05/20/24 05/21/24 Rx Allergy/AdvReac Type Severity Reaction Status Date / Time No Known Allergies Allergy Verified 05/22/24 09:18 Family History Mother Breast cancer Surgical History S/P femoral-femoral bypass surgery S/P LEFT ARTERIOGRAM Social History Smoking Status: Current some day smoker tobacco type: cigarettes alcohol intake: never substance use type: does not use Review of Systems (Anesthesia)
--- NOTE | 2024-05-22 13:57 | EX.PCM.CON.G ---
HPI Consult Data Date of Consult: 05/22/24 HPI Narrative Reason for Consultation: GI bleed HPI Narrative: TONY BRADLEY, is a 68 F who presents with multiple episodes of hematemesis. She is s/p s/p R to L fem-fem bypass on 01/21/2024 which was performed secondary to severe LLE atherosclerosis with gangrene. She also had L 4th toe amputation on 01/10/24 with delayed primary closure on 01/13/[address] Camacho. She was placed on Xarelto 2.5mg BID, Plavix 75mg daily, and ASA 81mg daily. And the plan was after 6 months to consider reducing to Xarelto 2.5mg with single antiplatelet agent. I was consulted on the first time to see her on 05/04/2024 for melena and acute blood loss anemia. She was discovered to have multiple gastric ulcers and angiodysplastic lesions in her stomach that was treated endoscopically. She came back in the hospital after being discharged on Xarelto, Plavix and aspirin with recurrent melena. Recently we went back down and recauterized the angiodysplastic lesions and ulcers that were previously ablated on admission prior to that. She was recently discharged on 05/20/2024 on Xarelto and Plavix. She was doing fine until this morning when she developed melena and hematochezia. When she came to the ED she was hypotensive and tachycardic. Her hemoglobin however was up to 9.1 and she was discharged from the hospital it was 8.2. She was sent to the ICU after getting a reversal agent for Xarelto and being started on octreotide and Protonix. She was noted to have upper esophageal varices on previous upper endoscopy but she does not have any cirrhosis or history of portal hypertension. [facility] Medical History AVM (arteriovenous malformation) Colitis Antiplatelet or antithrombotic long-term use Iron (Fe) deficiency anemia Atherosclerosis of [place] arteries of extremities with gangrene, left leg Carotid stenosis, bilateral Tobacco abuse Peripheral arterial occlusive disease Cervical cancer PVD (peripheral vascular disease) Arthritis Home Medications ?Medication ?Instructions ?Recorded ?Last Taken ?Type acetaminophen 650 mg 650 mg PO Q6H PRN Pain 06/25/18 05/21/24 History tablet,extended release (Tylenol Arthritis Pain) albuterol sulfate 90 mcg/actuation 2 puff inhalation Q6H PRN 01/08/24 Unknown History aerosol inhaler shortness of breath or wheezing amlodipine 5 mg tablet 5 mg PO DAILY blood pressure 01/08/24 05/21/24 History budesonide-formoterol HFA 160 2 puff inhalation BID breathing 01/08/24 05/21/24 History mcg-4.5 mcg/actuation aerosol inhaler rosuvastatin 10 mg tablet 10 mg PO DAILY cholesterol 01/08/24 05/21/24 History rivaroxaban 2.5 mg tablet (Xarelto) 2.5 mg PO BID blood thinner #60 01/22/24 05/21/24 Rx tabs clopidogrel 75 mg tablet (Plavix) 75 mg PO DAILY antiplatelet #30 02/11/24 05/21/24 Rx tabs cholecalciferol (vitamin D3) 1,250 1,250 mcg PO TH vitamin 05/03/24 05/19/24 History mcg (50,000 unit) capsule oxymetazoline 0.05 % nasal spray 2 spray intranasal BID PRN nasal 05/18/24 Unknown History (12 Hour Nasal Relief [place]) congestion pantoprazole 40 mg tablet,delayed 40 mg PO BID 30 days #60 tabs 05/20/24 05/21/24 Rx release (Protonix) sucralfate 1 gram tablet (Carafate) 1 g PO Q6H 30 days #120 tabs 05/20/24 05/21/24 Rx Allergy/AdvReac Type Severity Reaction Status Date / Time No Known Allergies Allergy Verified 05/22/24 09:18 Family History Mother Breast cancer Surgical History S/P femoral-femoral bypass surgery S/P LEFT ARTERIOGRAM Social History Smoking Status: Current some day smoker tobacco type: cigarettes alcohol intake: never substance use type: does not use ROS Constitutional Constitutional: Denies chills, fatigue, fever(s) or malaise Eyes Eyes: Denies blurry vision ENT HEENT: Denies headache(s) or nasal discharge Cardiovascular Cardiovascular: Reports lightheadedness; Denies chest pain, dyspnea on exertion or syncope Respiratory/Chest Respiratory/Chest: Denies cough, shortness of breath at rest or shortness of breath with exertion Gastrointestinal Gastrointestinal: Reports hematemesis and melena; Denies constipation, diarrhea, nausea or vomiting Genitourinary Genitourinary: Denies dysuria Neurologic Neurologic: Denies focal weakness, numbness or tremor(s) Psychiatric Psychiatric: Denies anxiety or depression Physical Exam Narrative General: Alert, Oriented x3, Cooperative, No apparent distress HEENT: Atraumatic, PERRLA, EOMI, Normocephalic Oral: Moist Mucosa Neck: Supple, No JVD Lungs: Diminished, Normal air movement, No rhonchi, No wheeze, No rales Cardiovascular: Tachycardic, Regular Rhythm, Normal S1, Normal S2, No murmurs Abdomen: Soft, Non Tender, Non-Distended, No Hepato-splenomegaly Extremities: No edema, Capillary Refill Less than 3 Seconds Skin: No rashes, No breakdown Musculoskeletal: No Tenderness to Palpation of Joints or Extremities Neurological: No focal neurological deficits, Motor Exam 5/5 strength throughout, Sensory exam intact to light touch and pain Psych/Mental Status: Normal Affect, Appropriate Lab / Micro Data 05/22/24 09:20 05/22/24 09:20 Labs: Laboratory Results - last 24 hr 05/22/24 09:20: WBC 13.3 H, RBC 3.61 L, Hgb 9.1 L, Hct 30.5 L, MCV 84.5, MCH 25.2 L, MCHC 29.8 L, RDW Std Deviation 63.0 H, RDW Coeff of Alfie 20.3 H, Plt Count 682 H, MPV 9.4, Immature Gran % (Auto) 0.500, Neut % (Auto) 75.3 H, Lymph % (Auto) 15.0 L, [place] % (Auto) 7.5, Eos % (Auto) 1.2, Baso % (Auto) 0.5, Absolute Neuts (auto) 10.0 H, Absolute Lymphs (auto) 1.99, Nucleated RBC % 0, Differential Comment SCANNED, Anisocytosis 2+, Microcytosis 1+, Macrocytosis 1+, PT 16.6 H, INR 1.4, Sodium 143, Potassium 3.6, Chloride 108 H, Carbon Dioxide 27.0, Anion Gap 8, BUN 13, Creatinine 0.95, Estim Creat Clear Calc 52.77, Est GFR (MDRD) Af Amer 76, Est GFR (MDRD) Non-Af 63, BUN/Creatinine Ratio 13.7, Glucose 187 H, Calcium 9.0 05/22/24 09:30: Crossmatch See Detail 05/22/24 09:30: Crossmatch See Detail 05/22/24 09:34: Lactic Acid 3.0 H*, Blood Type B POSITIVE, Antibody Screen NEGATIVE Rhythm Strip Rhythm Strip: Sinus Tach Rate: 116 Ectopy: None Assessment & Plan Assessment/Plan (1) Acidosis, lactic: (2) Symptomatic anemia: (3) S/P femoral-femoral bypass surgery: (4) Iron (Fe) deficiency anemia: (5) Hypoxia: (6) Fever: PLAN: Plan Acute on chronic GI bleed -Previously it appeared as if her her hemoglobin had slowly been trending down however baseline most recently has been between 9 and 10. - on her previous admission her hemoglobin was 3.5. She was transfused 4 units packed red blood cells on the day of admission -Since transfusion patient has been stable with hemoglobin between 7.5 and 9.1 again today -EGD was performed on demonstrated grade 1 esophageal varices, 2 angiodysplastic lesions in the gastric body that were treated with coagulation for hemostasis and mild localized erythematous mucosa in the gastric antrum that were biopsied, there were patchy erythematous mucosa without active bleeding and no stigmata of bleeding in the duodenal bulb where biopsies were taken as well -She will undergo an emergent endoscopy. She was explained alternatives, risk, benefits including not withstanding bleeding, infection, sepsis, perforation, need for emergent and . She have an ASA of 3. I did talk to her and her sister at the bedside and explained to them she may need a temporary NG or Dobbhoff tube or stay on a clear liquid diet for 2 weeks to allow this to heal fully. Charges/Coding Visit Charges Inpatient E&M: 36853 Init Hosp L3
--- NOTE | 2024-05-22 14:00 | NURSING ---
Patient left unit for EGD
[2024-05-22] MEDS: 0.9% Normal Saline (Pres. free 10 ML Vial (14:22)
[2024-05-22] MEDS: Epinephrine (1 mg/ml) 1 MG/ML VIAL (14:22)
--- NOTE | 2024-05-22 14:38 | OP.EGD_ITS ---
Patient Name: Brenda Macedo Procedure Date: 05/22/2024 1:35 PM Date of : 1955 Age: 68 Procedure: Upper GI endoscopy Indications: Hematemesis Providers: Adi Kincaid DO Medicines: Monitored Anesthesia Care Patient Profile: This is a 68 year old female. Refer to note in patient chart for documentation of history and physical. Patient has symptoms of acute vomiting. Complications: No immediate complications. Procedure: Pre-Anesthesia Assessment: - Prior to the procedure, a History and Physical was performed, and patient medications and allergies were reviewed. The patient is competent. The risks and benefits of the procedure and the sedation options and risks were discussed with the patient. All questions were answered and informed consent was obtained. Patient identification and proposed procedure were verified by the physician in the pre-procedure area. Mental Status Examination: alert and oriented. Airway Examination: normal oropharyngeal airway and neck mobility. Respiratory Examination: clear to auscultation. CV Examination: normal. Prophylactic Antibiotics: The patient does not require prophylactic antibiotics. Prior Anticoagulants: The patient has taken no anticoagulant or antiplatelet agents except for NSAID medication. ASA Grade Assessment: IV - A patient with severe systemic disease that is a constant threat to life. After reviewing the risks and benefits, the patient was deemed in satisfactory condition to undergo the procedure. The anesthesia plan was to use monitored anesthesia care (MAC). Immediately prior to administration of medications, the patient was re-assessed for adequacy to receive sedatives. The heart rate, respiratory rate, oxygen saturations, blood pressure, adequacy of pulmonary ventilation, and response to care were monitored throughout the procedure. The physical status of the patient was re-assessed after the procedure. After obtaining informed consent, the endoscope was passed under direct vision. Throughout the procedure, the patient's blood pressure, pulse, and oxygen saturations were monitored continuously. The Endoscope was introduced through the mouth, and advanced to the second part of duodenum. The upper GI endoscopy was accomplished without difficulty. The patient tolerated the procedure well. Scope In: 2:14:29 PM Scope Out: 2:28:11 PM Total Procedure Duration Time 0 hours 13 minutes 42 seconds Findings: Grade I varices were found in the upper third of the esophagus. They were 5 mm in largest diameter. Four oozing cratered gastric ulcers with a visible vessel were found in the cardia, in the gastric fundus, in the gastric body and on the greater curvature of the stomach. The largest lesion was 6 mm in largest dimension. Area was successfully injected with 5 mL of a 0.1 mg/mL solution of epinephrine for drug delivery. Coagulation for hemostasis using heater probe was successful. Estimated blood loss was minimal. The second portion of the duodenum was normal. Impression: - Grade I esophageal varices. - Oozing gastric ulcers with a visible vessel. Injected. Treated with a heater probe. - Normal second portion of the duodenum. - No specimens collected. Recommendation: - Return patient to ICU for ongoing care. - Clear liquid diet today. - Continue present medications. Procedure Code(s): --- Professional --- 43968, Esophagogastroduodenoscopy, flexible, transoral; with control of bleeding, any method 61174, 59,51, Esophagogastroduodenoscopy, flexible, transoral; with directed submucosal injection(s), any substance CPT copyright 2021 [employer]. All rights reserved. The codes documented in this report are preliminary and upon beam warper review may be revised to meet current compliance requirements. Adi Kincaid DO 05/22/2024 2:37:45 PM This report has been signed electronically. Number of Addenda: 0 Note Initiated On: 05/22/2024 1:35 PM
--- NOTE | 2024-05-22 14:38 | OP.CCLET_ITS ---
05/22/2024 Vincent Ashley Re : Upper GI endoscopy procedure for Brenda Macedo Dear Dion This procedure was performed on Wednesday, May 22, 2024. My impressions and recommendations are as follows: Impressions : - Grade I esophageal varices. - Oozing gastric ulcers with a visible vessel. Injected. Treated with a heater probe. - Normal second portion of the duodenum. - No specimens collected. Recommendations : - Return patient to ICU for ongoing care. - Clear liquid diet today. - Continue present medications. My findings are described in the full procedure note, which is enclosed. If I can be of further assistance, please feel free to contact me at . Sincerely, Aid Kincaid, 05/22/2024 2:37:45 PM This report has been signed electronically.
--- NOTE | 2024-05-22 14:50 | NURSING ---
patient returned to unit from endo
--- NOTE | 2024-05-22 15:06 | PCM.POST.ANE ---
Anesthesia: Postop Eval I Current Vital Signs Temperature: 97 F Pulse Rate: 117 Blood Pressure: 139/74 Respiratory Rate: 25 Pulse Ox: 94 Oxygen Delivery Method: Room Air Assessment Airway patent: Yes Spontaneous unlabored respirations: Yes Mental status: Awake and Calm nausea: Yes Vomiting: No Anesthesia Complication: No Fluid Hydration Crystalloid volume administer (ml): 200 Total IV fluid infused: 200 Progress Note Anesthesia document: Postop Eval 1 completed: Yes
--- NOTE | 2024-05-22 15:11 | PCM.POSTANE2 ---
Anesthesia Postop Eval I Sum Postop Eval Completion status Anesthesia document: Postop Eval 1 completed: Yes Anesthesia Postop Eval I Summary Anesthesia Postop Eval I Summary: Anesthesia Postop Eval I: Assessment Summary Airway patent Yes 05/22/24 15:11 Spontaneous unlabored Yes 05/22/24 15:11 respirations Mental status Awake,Calm 05/22/24 15:11 nausea Yes 05/22/24 15:11 Vomiting No 05/22/24 15:11 Anesthesia Postop Eval I: Fluid Summary Crystalloid volume administer 200 05/22/24 15:11 (ml) Colloids volume administered ( ml) Blood Product volume administered (ml) Total IV fluid infused 200 05/22/24 15:11 Anesthesia Postop Eval I: Summary Notes Anesthesia Complication No 05/22/24 15:11 Anesthesia Complication Comment: Post-operative progress note Anesthesia: Postop Eval II Evaluation Mental status: Awake and Calm Pain Level: 0 nausea: No Vomiting: No Complications Anesthesia Complication: No
[2024-05-22] MEDS: Sucralfate 1 GM Tablet PO ×2 (16:48→21:45)
[2024-05-22 17:30] LABS: Hematocrit 30.8 % (37-47); Hemoglobin 9.8 g/dL (12.0-15.0)
[2024-05-23] VITALS (31 sets, daily range): BP systolic 85–136; BP diastolic 50–89; PULSE 68–120; RESP 16–320; TEMP 36.1–36.5; O2SAT 94–100; BMI 26.4
[2024-05-23 00:34] LABS: Hematocrit 28.6 % (37-47); Hemoglobin 9.3 g/dL (12.0-15.0)
[2024-05-23 05:34] LABS: Absolute Lymphocyte Count 1.79 X10^3/uL (0.83-4.51); Absolute Neutrophil Count 8.2 X10^3/uL (2.0-7.7); Basophil# 0.07 X10^3/uL; Basophil% 0.6 % (0-1); Eosinophil# 0.04 X10^3/uL; Eosinophils% 0.4 % (0-5); Hematocrit 26.7 % (37-47); Hemoglobin 8.6 g/dL (12.0-15.0); Lymphocyte # 1.79 X10^3/ul (0.83-4.51); Lymphocyte % 16.4 % (19-41); Mean Corp Hgb Conc 32.2 g/dL (32-36); Mean Corpuscular Hgb 27.4 pg (27.0-32.0); Mean Platelet Vol. 9.4 fl (6.2-12.0); Monocyte# 0.84 X10^3/uL; Monocyte% 7.7 % (0-10); NRBC Flagged by Analyzer 0 % (0-5); Neutrophil # 8.16 X10^3/uL (2.7-7.7); Neutrophil % 74.6 % (47-70); Platelet Count 406 K/mm3 (150-450); RBC Distribution Width CV 17.8 % (11.6-14.6); RBC Distribution Width SD 54.4 fl (35.1-43.9); Red Blood Count 3.14 M/mm3 (4.2-5.4); White Blood Count 10.9 K/mm3 (4.4-11.0)
[2024-05-23] MEDS: Sucralfate 1 GM Tablet PO ×4 (05:58→21:20)
[2024-05-23] MEDS: OCTREOTIDE IV ×3 (05:58→21:20)
[2024-05-23] MEDS: NORMAL SALINE 0.9% IV ×3 (05:58→21:20)
[2024-05-23] MEDS: Pantoprazole Sodium 80 MG in 0.9% Normal Saline (100mL Bag) 80 ML 10 MG CONT INF ×2 (05:58→15:45)
--- NOTE | 2024-05-23 07:06 | PN.HOSP_ITS ---
Reason for Visit Reason for Visit: Diagnoses Iron deficiency anemia, unspecified (05/22/24) Anemia, unspecified (05/22/24) Acidosis, unspecified (05/22/24) Gastrointestinal hemorrhage, unspecified (05/22/24) Hypoxemia (05/22/24) Fever, unspecified (05/22/24) Presence of other vascular implants and grafts (05/22/24) Subjective Subjective Reported ongoing bleeding today. Denies abdominal pain. Objective Data Objective Data Vital Signs: Vital Signs Temp Pulse Resp BP Pulse Ox O2 Del Method O2 Flow Rate 36.5 C L 91 17 104/89 H 100 Nasal Cannula 2 05/23/24 04:00 05/23/24 06:00 05/23/24 06:00 05/23/24 06:00 05/23/24 06:00 05/23/24 06:00 05/23/24 06:00 Oxygen Flow Rate (L/min) 2 Oxygen Delivery Method Nasal Cannula Weight: 65.2 kg Body Mass Index (BMI) 26.4 Intake & Output: Intake and Output for Last 24 Hours 05/21/24 05/22/24 05/23/24 23:59 23:59 23:59 Intake Total 1445.83 / 1445.83 100 / 100 Output Total 351 / 351 Balance 1094.83 / 1094.83 100 / 100 Lab / Micro Data 05/23/24 12:20 05/23/24 08:15 Labs: Laboratory Results - last 24 hr 05/22/24 09:20: WBC 13.3 H, RBC 3.61 L, Hgb 9.1 L, Hct 30.5 L, MCV 84.5, MCH 25.2 L, MCHC 29.8 L, RDW Std Deviation 63.0 H, RDW Coeff of Alfie 20.3 H, Plt Count 682 H, MPV 9.4, Immature Gran % (Auto) 0.500, Neut % (Auto) 75.3 H, Lymph % (Auto) 15.0 L, [place] % (Auto) 7.5, Eos % (Auto) 1.2, Baso % (Auto) 0.5, A bsolute Neuts (auto) 10.0 H, Absolute Lymphs (auto) 1.99, Nucleated RBC % 0, Differential Comment SCANNED, Anisocytosis 2+, Microcytosis 1+, Macrocytosis 1+, PT 16.6 H, INR 1.4, Sodium 143, Potassium 3.6, Chloride 108 H, Carbon Dioxide 27.0, Anion Gap 8, BUN 13, Creatinine 0.95, Estim Creat Clear Calc 52.77, Est GFR (MDRD) Af Amer 76, Est GFR (MDRD) Non-Af 63, BUN/Creatinine Ratio 13.7, G lucose 187 H, Calcium 9.0 05/22/24 09:30: Crossmatch See Detail 05/22/24 09:30: Crossmatch See Detail 05/22/24 09:34: Lactic Acid 3.0 H*, Blood Type B POSITIVE, Antibody Screen NEGATIVE 05/22/24 17:10: Hgb 9.8 L, Hct 30.8 L 05/22/24 23:45: Hgb 9.3 L, Hct 28.6 L 05/23/24 05:15: WBC 10.9, RBC 3.14 L, Hgb 8.6 L, Hct 26.7 L, MCV 85.0, MCH 27.4, MCHC 32.2 D, RDW Std Deviation 54.4 H, RDW Coeff of Alfie 17.8 H, Plt Count 406, MPV 9.4, Immature Gran % (Auto) 0.300, Neut % (Auto) 74.6 H, Lymph % (Auto) 16.4 L, [place] % (Auto) 7.7, Eos % (Auto) 0.4, Baso % (Auto) 0.6, Absolute Neuts (auto) 8.2 H, Absolute Lymphs (auto) 1.79, Nucleated RBC % 0 Rhythm Strip Rhythm Strip: Sinus Tach Rate: 116 Ectopy: None Physical Exam Const alert and no apparent distress HEENT head/scalp atraumatic and moist oral mucous membranes Resp normal respiratory effort, no retractions, no use of accessory muscles and clear to auscultation bilaterally Cardio regular rate, regular rhythm, S1 normal heart sound and S2 normal heart sound GI normal to inspection, nondistended, normoactive bowel sounds, soft to palpation, non-tender and non-distended Extremity normal to inspection and full ROM Neuro Sensorium / Orientation: awake and alert Assessment & Plan Assessment/Plan (1) Acute upper gastrointestinal hemorrhage: PLAN: Plan UGIB * 2/2 bleeding gastric ulcers with visible vessel. * EGD on 05/22 injected the vessel and treated with heater probe. Also with non- bleeding esophageal varix. * CLD * On PPI and octreotide gtt. Sucralfate ABLA * Hg dropped to 6.4. * Transfused 2 units PRBCs. Hg stable at 8.6. * 2/2 GIB Hemorrhagic shock * 2/2 ABLA * improved. * no pressors Chronic conditions: * HTN: amlodipine held due to shock. * HLD: crestor on hold * PAD: clopidogrel and rivaroxaban held * Recent transudative pleural effusion: no additional work up at this time. VTE prophylaxis: SCDs. Will plan to keep the patient in the intensive care unit despite hemoglobin remained stable on hemodynamically stable. Charges/Coding Visit Charges Inpatient E&M: 39809 Subs Hosp L2
[2024-05-23 08:58] LABS: Anion Gap 4 (5-15); BUN 16 mg/dL (7-18); BUN/Creat Ratio 19.9 RATIO (10-20); Calcium,Total 8.2 mg/dL (8.5-10.1); Chloride 110 mmol/L (98-107); EST Glomerular Filtration Rate 76 mL/min (>60); Est Glom Filt Rate - Afr Amer 92 mL/min (>60); Glucose 115 mg/dL (74-106); Potassium 3.6 mmol/L (3.5-5.1); Sodium Level 142 mmol/L (136-145)
--- NOTE | 2024-05-23 12:31 | CASEMGMT ---
Readmission Note: Index: 05/18-05/20/24. Dx: GI Bleed Readmission: 05/22/24. Dx: GI Bleed Pt was discharged from [facility] on 05/20. Pt was discharged with a PPI as well as Carafate. [id number] with the pt at this time for readmission/chart review. Pt sister at bedside. Pt states that she was able to take her prescriptions accordingly. Pt also states that she was aware of the DC diet recommendations given. Pt states that she only wears her home O2 @ HS (2 lpm via NC). Email sent to Leni from [email or web address] and the liaison states that the pt current home O2 order is 2LPM with exertion. Pt did not qualify for an increased demand for O2 during the index admission. Pt states that she does not feel as if she could have done anything different to prevent this readmission. Pt states that she was vomiting blood [employer]. This RN CM noted that the MD opted to discontinue all of the pt blood thinning medications e/f Xarelto. Pt Hgb was 6.4 and received 2 units of PRBC and the Hgb came up to 8.6 subsequently. On 05/22, the MD injected the pt vessel and treated it with a heater probe. The pt states that she is no longer vomiting blood, however, states that she has bloody stools. Per the MD, this could be her body getting rid of the rest of the blood. Moving forward, the pt denies needs at home. Pt states that she lives with her son and also that her sister lives close by. Pt states that her sister provides the pt with transportation and will drive the pt home once she is medically ready. Pt states that she is independent at home. Pt denies the need for HHC, OP Tx, or SNF needs at this time. Pt states that she feels safe and comfortable discharging home once she is medically cleared. CM to follow to ensure safe DC from [facility]. Anabel FREED RN, CM
[2024-05-23 12:35] LABS: Hematocrit 26.9 % (37-47); Hemoglobin 8.6 g/dL (12.0-15.0)
[2024-05-23] MEDS: 0.9% Saline Lock 10 ML Syringe IV ×2 (13:36→21:20)
[2024-05-23 18:20] LABS: Hematocrit 30.1 % (37-47); Hemoglobin 9.5 g/dL (12.0-15.0)
--- NOTE | 2024-05-23 21:35 | EX.PCM.PN.GI ---
Subjective Subjective I wI was made aware by nursing that the patient had two bloody bowel movements today. She went and emergent endoscopy yesterday for an upper bleed. She has not had any more bleeding since this morning. Objective Data Objective Data Vital Signs: Vital Signs Temp Pulse Resp BP Pulse Ox O2 Del Method O2 Flow Rate 97.6 F L 76 20 H 106/58 L 96 Nasal Cannula 1 05/23/24 21:00 05/23/24 21:00 05/23/24 21:00 05/23/24 21:00 05/23/24 21:00 05/23/24 21:00 05/23/24 21:00 FiO2 100 05/23/24 07:38 Oxygen Flow Rate (L/min) 1 Oxygen Delivery Method Nasal Cannula Weight: 143 lb 11.862 oz Body Mass Index (BMI) 26.4 Intake & Output: Intake and Output for Last 24 Hours 05/21/24 05/22/24 05/23/24 23:59 23:59 23:59 Intake Total 1445.83 / 1445.83 860.83 / 860.83 Output Total 351 / 351 150 / 150 Balance 1094.83 / 1094.83 710.83 / 710.83 Medical Nutrition Assessment Dietitian: Malnutrition Criteria Met Start: 05/23/24 09:41 Freq: Status: Active Protocol: Document 05/23/24 09:41 ROBER (Rec: 05/23/24 09:41 [facility] [id number]) Nutrition Malnutrition Evidence of Malnutrition Exists Yes Malnutrition (severe): Acute Illness/Injury Evidenced By Suboptimal Energy Intake ( Severe),Weight Loss (Severe) Intake Problem Inadequate Oral Intake Etiology related to issues w/ GI dysfunction / GI bleed Signs/Symptoms as evidenced by NPO status Status Active Problem Clinical Problem Acute Disease or Injury Related Malnutrition Etiology related to issues w/ GI dysfunction and inadequate energy intake Signs/Symptoms related to 6.1% unintended wt loss x 5 days, 13.6% unintended wt loss and po intake meeting <75% of estimated nutritional needs x 1 month. Status Active Problem Recommendation Dietitian Recommendations/Changes As medically able, Rec ALEX to Cardiac Will order 8 oz apple ensure clear tid w/ meals for increased nutrition if consumed ( Lab / Micro Data 05/23/24 18:15 05/23/24 08:15 Labs: Laboratory Results - last 24 hr 07/07/24 09:30: Crossmatch See Detail 05/22/24 23:45: Hgb 9.3 L, Hct 28.6 L 05/23/24 05:15: WBC 10.9, RBC 3.14 L, Hgb 8.6 L, Hct 26.7 L, MCV 85.0, MCH 27.4, MCHC 32.2 D, RDW Std Deviation 54.4 H, RDW Coeff of Alfie 17.8 H, Plt Count 406, MPV 9.4, Immature Gran % (Auto) 0.300, Neut % (Auto) 74.6 H, Lymph % (Auto) 16.4 L, [place] % (Auto) 7.7, Eos % (Auto) 0.4, Baso % (Auto) 0.6, Absolute Neuts (auto) 8.2 H, Absolute Lymphs (auto) 1.79, Nucleated RBC % 0 05/23/24 08:15: Sodium 142, Potassium 3.6, Chloride 110 H, Carbon Dioxide 28.0, Anion Gap 4 L, BUN 16, Creatinine 0.80, Estim Creat Clear Calc 59.80, Est GFR (MDRD) Af Amer 92, Est GFR (MDRD) Non-Af 76, BUN/Creatinine Ratio 19.9, Glucose 115 H, Calcium 8.2 L 05/23/24 12:20: Hgb 8.6 L, Hct 26.9 L 05/23/24 18:15: Hgb 9.5 L, Hct 30.1 L Rhythm Strip Rhythm Strip: Sinus Tach Rate: 116 Ectopy: None Physical Exam Const alert and no apparent distress HEENT head/scalp atraumatic and moist oral mucous membranes Resp normal respiratory effort, no retractions, no use of accessory muscles and clear to auscultation bilaterally Cardio regular rate, regular rhythm, S1 normal heart sound and S2 normal heart sound GI normal to inspection, nondistended, normoactive bowel sounds, soft to palpation, non-tender and non-distended Extremity normal to inspection and full ROM Neuro Sensorium / Orientation: awake and alert Assessment & Plan Assessment/Plan (1) Acidosis, lactic: (2) Symptomatic anemia: (3) S/P femoral-femoral bypass surgery: (4) Iron (Fe) deficiency anemia: (5) Hypoxia: (6) Fever: PLAN: Plan Acute on chronic GI bleed -Previously it appeared as if her her hemoglobin had slowly been trending down however baseline most recently has been between 9 and 10. - on her previous admission her hemoglobin was 3.5. She was transfused 4 units packed red blood cells on the day of admission -Since transfusion patient has been stable with hemoglobin between 7.5 and 9.1 again today -EGD was performed on demonstrated grade 1 esophageal varices, 2 angiodysplastic lesions in the gastric body that were treated with coagulation for hemostasis and mild localized erythematous mucosa in the gastric antrum that were biopsied, there were patchy erythematous mucosa without active bleeding and no stigmata of bleeding in the duodenal bulb where biopsies were taken as well -She will undergo an emergent endoscopy. She was explained alternatives, risk, benefits including not withstanding bleeding, infection, sepsis, perforation, need for emergent and . She have an ASA of 3. I did talk to her and her sister at the bedside and explained to them she may need a temporary NG or Dobbhoff tube or stay on a clear liquid diet for 2 weeks to allow this to heal fully. 05/23/2024- Patient denies any more bleeding since this morning. She was transfused one unit of blood cells. Findings from endoscopy on 05/22/2024: Grade I varices were found in the upper third of the esophagus. They were 5 mm in largest diameter. Four oozing cratered gastric ulcers with a visible vessel were found in the cardia, in the gastric fundus, in the gastric body and on the greater curvature of the stomach. The largest lesion was 6 mm in largest dimension. Area was successfully injected with 5 mL of a 0.1 mg/mL solution of epinephrine for drug delivery. Coagulation for hemostasis using heater probe was successful. Estimated blood loss was minimal. The second portion of the duodenum was normal. Impression: - Grade I esophageal varices. - Oozing gastric ulcers with a visible vessel. Injected. Treated with a heater probe. - Normal second portion of the duodenum. - No specimens collected. Recommendations: Clear liquidclear liquid diet. Recheck hemoglobin in the morning. Charges/Coding Visit Charges Inpatient E&M: 07366 [facility] Hosp L3
[2024-05-24] VITALS (17 sets, daily range): BP systolic 94–123; BP diastolic 54–81; PULSE 66–89; RESP 13–20; TEMP 36.1–37.2; O2SAT 93–98; BMI 27.3
[2024-05-24] MEDS: Pantoprazole Sodium 80 MG in 0.9% Normal Saline (100mL Bag) 80 ML 10 MG CONT INF ×3 (01:19→22:27)
[2024-05-24] MEDS: 0.9% Saline Lock 10 ML Syringe IV ×2 (01:19→22:08)
[2024-05-24 04:46] LABS: Absolute Lymphocyte Count 1.04 X10^3/uL (0.83-4.51); Absolute Neutrophil Count 6.7 X10^3/uL (2.0-7.7); Basophil# 0.06 X10^3/uL; Basophil% 0.7 % (0-1); Eosinophil# 0.15 X10^3/uL; Eosinophils% 1.8 % (0-5); Hematocrit 29.4 % (37-47); Hemoglobin 9.2 g/dL (12.0-15.0); Lymphocyte # 1.04 X10^3/ul (0.83-4.51); Lymphocyte % 12.2 % (19-41); Mean Corp Hgb Conc 31.3 g/dL (32-36); Mean Corpuscular Hgb 27.1 pg (27.0-32.0); Mean Corpuscular Volume 86.7 fL (81-99); Mean Platelet Vol. 9.7 fl (6.2-12.0); Monocyte# 0.58 X10^3/uL; Monocyte% 6.8 % (0-10); NRBC Flagged by Analyzer 0 % (0-5); Neutrophil # 6.66 X10^3/uL (2.7-7.7); Neutrophil % 78.1 % (47-70); Platelet Count 325 K/mm3 (150-450); RBC Distribution Width CV 17.2 % (11.6-14.6); RBC Distribution Width SD 54.9 fl (35.1-43.9); Red Blood Count 3.39 M/mm3 (4.2-5.4); White Blood Count 8.5 K/mm3 (4.4-11.0)
[2024-05-24 05:00] LABS: Anion Gap 6 (5-15); BUN 14 mg/dL (7-18); Calcium,Total 8.3 mg/dL (8.5-10.1); Chloride 109 mmol/L (98-107); Creatinine, Serum 0.52 mg/dL (0.55-1.02); EST Glomerular Filtration Rate 125 mL/min (>60); Est Glom Filt Rate - Afr Amer 152 mL/min (>60); Glucose 89 mg/dL (74-106); Potassium 3.3 mmol/L (3.5-5.1); Sodium Level 141 mmol/L (136-145)
[2024-05-24] MEDS: Sucralfate 1 GM Tablet PO ×4 (06:08→22:09)
[2024-05-24] MEDS: NORMAL SALINE 0.9% IV ×3 (06:08→22:27)
[2024-05-24] MEDS: OCTREOTIDE IV ×3 (06:08→22:27)
--- NOTE | 2024-05-24 07:08 | PCM.PN.HOSP ---
Reason for Visit Reason for Visit: Diagnoses Iron deficiency anemia, unspecified (05/22/24) Anemia, unspecified (05/22/24) Acidosis, unspecified (05/22/24) Gastrointestinal hemorrhage, unspecified (05/22/24) Hypoxemia (05/22/24) Fever, unspecified (05/22/24) Presence of other vascular implants and grafts (05/22/24) Subjective Subjective Feeling well. Per RN, less hematochezia. Objective Data Objective Data Vital Signs: Vital Signs Temp Pulse Resp BP Pulse Ox O2 Del Method O2 Flow Rate 36.3 C L 82 14 94/67 97 Nasal Cannula 1 05/24/24 04:00 05/24/24 07:00 05/24/24 07:00 05/24/24 07:00 05/24/24 07:00 05/24/24 07:00 05/24/24 07:00 FiO2 100 05/23/24 07:38 Oxygen Flow Rate (L/min) 1 Oxygen Delivery Method Nasal Cannula Weight: 67.5 kg Body Mass Index (BMI) 27.3 Intake & Output: Intake and Output for Last 24 Hours 05/22/24 05/23/24 05/24/24 23:59 23:59 23:59 Intake Total 1445.83 / 1445.83 911.83 / 911.83 146.67 / 146.67 Output Total 351 / 351 150 / 150 Balance 1094.83 / 1094.83 761.83 / 761.83 146.67 / 146.67 Medical Nutrition Assessment Dietitian: Malnutrition Criteria Met Start: 05/23/24 09:41 Freq: Status: Active Protocol: Document 05/23/24 09:41 ROBER (Rec: 05/23/24 09:41 ROBER [id number]) Nutrition Malnutrition Evidence of Malnutrition Exists Yes Malnutrition (severe): Acute Illness/Injury Evidenced By Suboptimal Energy Intake ( Severe),Weight Loss (Severe) Intake Problem Inadequate Oral Intake Etiology related to issues w/ GI dysfunction / GI bleed Signs/Symptoms as evidenced by NPO status Status Active Problem Clinical Problem Acute Disease or Injury Related Malnutrition Etiology related to issues w/ GI dysfunction and inadequate energy intake Signs/Symptoms related to 6.1% unintended wt loss x 5 days, 13.6% unintended wt loss and po intake meeting <75% of estimated nutritional needs x 1 month. Status Active Problem Recommendation Dietitian Recommendations/Changes As medically able, Rec ALEX to Cardiac Will order 8 oz apple ensure clear tid w/ meals for increased nutrition if consumed ( Lab / Micro Data 05/24/24 04:40 05/24/24 04:40 Labs: Laboratory Results - last 24 hr 05/22/24 09:30: Crossmatch See Detail 05/23/24 08:15: Sodium 142, Potassium 3.6, Chloride 110 H, Carbon Dioxide 28.0, Anion Gap 4 L, BUN 16, Creatinine 0.80, Estim Creat Clear Calc 59.80, Est GFR (MDRD) Af Amer 92, Est GFR (MDRD) Non-Af 76, BUN/Creatinine Ratio 19.9, Glucose 115 H, Calcium 8.2 L 05/23/24 12:20: Hgb 8.6 L, Hct 26.9 L 05/23/24 18:15: Hgb 9.5 L, Hct 30.1 L 05/24/24 04:40: WBC 8.5, RBC 3.39 L, Hgb 9.2 L, Hct 29.4 L, MCV 86.7, MCH 27.1, MCHC 31.3 L, RDW Std Deviation 54.9 H, RDW Coeff of Alfie 17.2 H, Plt Count 325, MPV 9.7, Immature Gran % (Auto) 0.400, Neut % (Auto) 78.1 H, Lymph % (Auto) 12.2 L, [place] % (Auto) 6.8, Eos % (Auto) 1.8, Baso % (Auto) 0.7, Absolute Neuts (auto) 6.7, Absolute Lymphs (auto) 1.04, Nucleated RBC % 0, Sodium 141, Potassium 3.3 L, Chloride 109 H, Carbon Dioxide 26.0, Anion Gap 6, BUN 14, Creatinine 0.52 L, Estim Creat Clear Calc 59.80, Est GFR (MDRD) Af Amer 152, Est GFR (MDRD) Non-Af 125, BUN/Creatinine Ratio 27.0 H, Glucose 89, Calcium 8.3 L Rhythm Strip Rhythm Strip: Sinus Tach Rate: 116 Ectopy: None Physical Exam Const alert and no apparent distress HEENT head/scalp atraumatic and moist oral mucous membranes Resp normal respiratory effort, no retractions, no use of accessory muscles and clear to auscultation bilaterally Cardio regular rate, regular rhythm, S1 normal heart sound and S2 normal heart sound GI normal to inspection, nondistended, normoactive bowel sounds and soft to palpation Neuro Sensorium / Orientation: awake and alert Assessment & Plan Assessment/Plan (1) Acute upper gastrointestinal hemorrhage: PLAN: Plan UGIB 2/2 bleeding gastric ulcers with visible vessel. EGD on 05/22 injected the vessel and treated with heater probe. Also with non-bleeding esophageal varix. CLD On PPI and octreotide gtt. Sucralfate ABLA Hg dropped to 6.4. Transfused 3 units PRBCs. Hg stable at 9.2 2/2 GIB Hemorrhagic shock 2/2 ABLA improved. no pressors required Chronic conditions: HTN: amlodipine held due to shock. HLD: crestor on hold PAD: clopidogrel and rivaroxaban held Recent transudative pleural effusion: no additional work up at this time. VTE prophylaxis: SCDs. Transfer to [facility]. Charges/Coding Visit Charges Inpatient E&M: 43839 Subs Hosp L2
[2024-05-24 12:01] LABS: Hematocrit 33.6 % (37-47); Hemoglobin 10.4 g/dL (12.0-15.0)
[2024-05-24] MEDS: Albuterol 2.5 MG/3 ML VIAL.NEB. INHALATION ×2 (15:54→20:07)
--- NOTE | 2024-05-24 19:44 | PN.GI_ITS ---
Subjective Subjective She did have a bloody bowel movement this morning but were not sure if it was old blood. She repeated her hemoglobin and it is improving. Objective Data Objective Data Vital Signs: Vital Signs Temp Pulse Resp BP Pulse Ox O2 Del Method O2 Flow Rate 98.5 F 85 16 112/81 H 93 Room Air 1 05/24/24 15:00 05/24/24 15:54 05/24/24 15:54 05/24/24 15:00 05/24/24 15:54 05/24/24 15:54 05/24/24 09:36 FiO2 100 05/23/24 07:38 Oxygen Flow Rate (L/min) 1 Oxygen Delivery Method Room Air Weight: 148 lb 12.992 oz Body Mass Index (BMI) 27.3 Intake & Output: Intake and Output for Last 24 Hours 05/22/24 05/23/24 05/24/24 23:59 23:59 23:59 Intake Total 1445.83 / 1445.83 911.83 / 911.83 297.67 / 297.67 Output Total 351 / 351 150 / 150 Balance 1094.83 / 1094.83 761.83 / 761.83 297.67 / 297.67 Medical Nutrition Assessment Dietitian: Malnutrition Criteria Met Start: 05/23/24 09:41 Freq: Status: Active Protocol: Document 05/23/24 09:41 ROBER (Rec: 05/23/24 09:41 [facility] [id number]) Nutrition Malnutrition Evidence of Malnutrition Exists Yes Malnutrition (severe): Acute Illness/Injury Evidenced By Suboptimal Energy Intake ( Severe),Weight Loss (Severe) Intake Problem Inadequate Oral Intake Etiology related to issues w/ GI dysfunction / GI bleed Signs/Symptoms as evidenced by NPO status Status Active Problem Clinical Problem Acute Disease or Injury Related Malnutrition Etiology related to issues w/ GI dysfunction and inadequate energy intake Signs/Symptoms related to 6.1% unintended wt loss x 5 days, 13.6% unintended wt loss and po intake meeting <75% of estimated nutritional needs x 1 month. Status Active Problem Recommendation Dietitian Recommendations/Changes As medically able, Rec ALEX to Cardiac Will order 8 oz apple ensure clear tid w/ meals for increased nutrition if consumed ( Lab / Micro Data 05/24/24 11:53 05/24/24 04:40 Labs: Laboratory Results - last 24 hr 05/24/24 04:40: WBC 8.5, RBC 3.39 L, Hgb 9.2 L, Hct 29.4 L, MCV 86.7, MCH 27.1, MCHC 31.3 L, RDW Std Deviation 54.9 H, RDW Coeff of Alfie 17.2 H, Plt Count 325, MPV 9.7, Immature Gran % (Auto) 0.400, Neut % (Auto) 78.1 H, Lymph % (Auto) 12.2 L, [place] % (Auto) 6.8, Eos % (Auto) 1.8, Baso % (Auto) 0.7, Absolute Neuts (auto) 6.7, Absolute Lymphs (auto) 1.04, Nucleated RBC % 0, Sodium 141, Potassium 3.3 L , Chloride 109 H, Carbon Dioxide 26.0, Anion Gap 6, BUN 14, Creatinine 0.52 L, Estim Creat Clear Calc 59.80, Est GFR (MDRD) Af Amer 152, Est GFR (MDRD) Non-Af 125, BUN/Creatinine Ratio 27.0 H, Glucose 89, Calcium 8.3 L 05/24/24 11:53: Hgb 10.4 L, Hct 33.6 L Rhythm Strip Rhythm Strip: Sinus Tach Rate: 116 Ectopy: None Physical Exam Const alert and no apparent distress HEENT head/scalp atraumatic and moist oral mucous membranes Resp normal respiratory effort, no retractions, no use of accessory muscles and clear to auscultation bilaterally Cardio regular rate, regular rhythm, S1 normal heart sound and S2 normal heart sound GI normal to inspection, nondistended, normoactive bowel sounds and soft to palpation Neuro Sensorium / Orientation: awake and alert Assessment & Plan Assessment/Plan (1) Acidosis, lactic: (2) Symptomatic anemia: (3) S/P femoral-femoral bypass surgery: (4) Iron (Fe) deficiency anemia: (5) Hypoxia: (6) Fever: PLAN: Plan Acute on chronic GI bleed -Previously it appeared as if her her hemoglobin had slowly been trending down however baseline most recently has been between 9 and 10. - on her previous admission her hemoglobin was 3.5. She was transfused 4 units packed red blood cells on the day of admission -Since transfusion patient has been stable with hemoglobin between 7.5 and 9.1 again today -EGD was performed on demonstrated grade 1 esophageal varices, 2 angiodysplastic lesions in the gastric body that were treated with coagulation for hemostasis and mild localized erythematous mucosa in the gastric antrum that were biopsied, there were patchy erythematous mucosa without active bleeding and no stigmata of bleeding in the duodenal bulb where biopsies were taken as well -She will undergo an emergent endoscopy. She was explained alternatives, risk, benefits including not withstanding bleeding, infection, sepsis, perforation, need for emergent and . She have an ASA of 3. I did talk to her and her sister at the bedside and explained to them she may need a temporary NG or Dobbhoff tube or stay on a clear liquid diet for 2 weeks to allow this to heal fully. 05/23/2024- Patient denies any more bleeding since this morning. She was transfused one unit of blood cells. Findings from endoscopy on 05/22/2024: Grade I varices were found in the upper third of the esophagus. They were 5 mm in largest diameter. Four oozing cratered gastric ulcers with a visible vessel were found in the cardia, in the gastric fundus, in the gastric body and on the greater curvature of the stomach. The largest lesion was 6 mm in largest dimension. Area was successfully injected with 5 mL of a 0.1 mg/mL solution of epinephrine for drug delivery. Coagulation for hemostasis using heater probe was successful. Estimated blood loss was minimal. The second portion of the duodenum was normal. Impression: - Grade I esophageal varices. - Oozing gastric ulcers with a visible vessel. Injected. Treated with a heater probe. - Normal second portion of the duodenum. - No specimens collected. Recommendations: Clear liquidclear liquid diet. Recheck hemoglobin in the morning. 05/24/2024-patient is doing well. She has not had any more signs or symptoms of GI bleeding. She is off of anticoagulation. I would like her to be off of anticoagulation and antiplatelet therapy for at least a week prior to restarting any medicines.
[2024-05-24] MEDS: Budesonide Respules 0.5 MG/2 ML AMPUL.NEB. INHALATION (20:08)
[2024-05-24] MEDS: Atorvastatin Calcium 20 MG Tablet PO (22:09)
[2024-05-25 04:22] VITALS: BP 154/92; PULSE 98; RESP 18; TEMP 37.2; O2SAT 98
[2024-05-25] MEDS: NORMAL SALINE 0.9% IV ×3 (05:07→21:53)
[2024-05-25] MEDS: OCTREOTIDE IV ×3 (05:07→21:53)
[2024-05-25 06:00] VITALS: BMI 26.9
[2024-05-25 07:33] LABS: Absolute Lymphocyte Count 1.05 X10^3/uL (0.83-4.51); Absolute Neutrophil Count 6.2 X10^3/uL (2.0-7.7); Basophil# 0.05 X10^3/uL; Basophil% 0.6 % (0-1); Eosinophils% 1.2 % (0-5); Lymphocyte # 1.05 X10^3/ul (0.83-4.51); Mean Corp Hgb Conc 32.1 g/dL (32-36); Mean Corpuscular Volume 84.1 fL (81-99); Mean Platelet Vol. 9.5 fl (6.2-12.0); Monocyte# 0.62 X10^3/uL; Monocyte% 7.7 % (0-10); NRBC Flagged by Analyzer 0 % (0-5); Neutrophil # 6.24 X10^3/uL (2.7-7.7); Neutrophil % 77.3 % (47-70); Platelet Count 308 K/mm3 (150-450); RBC Distribution Width CV 17.1 % (11.6-14.6); RBC Distribution Width SD 52.1 fl (35.1-43.9); Red Blood Count 3.33 M/mm3 (4.2-5.4); White Blood Count 8.1 K/mm3 (4.4-11.0)
[2024-05-25] MEDS: Sucralfate 1 GM Tablet PO ×4 (07:35→21:49)
[2024-05-25] MEDS: amLODIPine 5 MG Tablet PO (07:40)
[2024-05-25 07:43] VITALS: BP 145/74; PULSE 75; RESP 18; TEMP 36.6; O2SAT 92; O2SAT 94
[2024-05-25 07:59] LABS: Anion Gap 5 (5-15); BUN 11 mg/dL (7-18); BUN/Creat Ratio 17.6 RATIO (10-20); Calcium,Total 8.4 mg/dL (8.5-10.1); Chloride 106 mmol/L (98-107); Creatinine, Serum 0.62 mg/dL (0.55-1.02); EST Glomerular Filtration Rate 101 mL/min (>60); Est Glom Filt Rate - Afr Amer 123 mL/min (>60); Estimated Creatinine Clearance 60.32 ml/min; Glucose 110 mg/dL (74-106); Potassium 2.9 mmol/L (3.5-5.1); Sodium Level 141 mmol/L (136-145)
--- NOTE | 2024-05-25 08:01 | PCM.PN.HOSP ---
Reason for Visit Reason for Visit: Diagnoses Iron deficiency anemia, unspecified (05/22/24) Anemia, unspecified (05/22/24) Acidosis, unspecified (05/22/24) Gastrointestinal hemorrhage, unspecified (05/22/24) Hypoxemia (05/22/24) Fever, unspecified (05/22/24) Presence of other vascular implants and grafts (05/22/24) Subjective Subjective Feeling well. Has normal BMs. Objective Data Objective Data Vital Signs: Vital Signs Temp Pulse Resp BP Pulse Ox O2 Del Method O2 Flow Rate 36.6 C 75 18 145/74 H 92 Room Air 1 05/25/24 07:43 05/25/24 07:43 05/25/24 07:43 05/25/24 07:43 05/25/24 07:43 05/25/24 07:43 05/24/24 09:36 FiO2 100 05/23/24 07:38 Oxygen Flow Rate (L/min) 1 Oxygen Delivery Method Room Air Weight: 66.4 kg Body Mass Index (BMI) 26.9 Intake & Output: Intake and Output for Last 24 Hours 05/23/24 05/24/24 05/25/24 23:59 23:59 23:59 Intake Total 911.83 / 911.83 448.67 / 448.67 51 / 51 Output Total 150 / 150 Balance 761.83 / 761.83 448.67 / 448.67 51 / 51 Medical Nutrition Assessment Dietitian: Malnutrition Criteria Met Start: 05/23/24 09:41 Freq: Status: Active Protocol: Document 05/23/24 09:41 ROBER (Rec: 05/23/24 09:41 ROBER [id number]) Nutrition Malnutrition Evidence of Malnutrition Exists Yes Malnutrition (severe): Acute Illness/Injury Evidenced By Suboptimal Energy Intake ( Severe),Weight Loss (Severe) Intake Problem Inadequate Oral Intake Etiology related to issues w/ GI dysfunction / GI bleed Signs/Symptoms as evidenced by NPO status Status Active Problem Clinical Problem Acute Disease or Injury Related Malnutrition Etiology related to issues w/ GI dysfunction and inadequate energy intake Signs/Symptoms related to 6.1% unintended wt loss x 5 days, 13.6% unintended wt loss and po intake meeting <75% of estimated nutritional needs x 1 month. Status Active Problem Recommendation Dietitian Recommendations/Changes As medically able, Rec ALEX to Cardiac Will order 8 oz apple ensure clear tid w/ meals for increased nutrition if consumed ( Lab / Micro Data 05/25/24 07:02 05/25/24 07:02 Labs: Laboratory Results - last 24 hr 05/24/24 11:53: Hgb 10.4 L, Hct 33.6 L 05/25/24 07:02: WBC 8.1, RBC 3.33 L, Hgb 9.0 L, Hct 28.0 L, MCV 84.1, MCH 27.0, MCHC 32.1, RDW Std Deviation 52.1 H, RDW Coeff of Alfie 17.1 H, Plt Count 308, MPV 9.5, Immature Gran % (Auto) 0.200, Neut % (Auto) 77.3 H, Lymph % (Auto) 13.0 L, [place] % (Auto) 7.7, Eos % (Auto) 1.2, Baso % (Auto) 0.6, Absolute Neuts (auto) 6.2, Absolute Lymphs (auto) 1.05, Nucleated RBC % 0, Sodium 141, Potassium 2.9 L, Chloride 106, Carbon Dioxide 30.0, Anion Gap 5, BUN 11, Creatinine 0.62, Estim Creat Clear Calc 60.32, Est GFR (MDRD) Af Amer 123, Est GFR (MDRD) Non-Af 101, BUN/Creatinine Ratio 17.6, Glucose 110 H, Calcium 8.4 L Rhythm Strip Rhythm Strip: Sinus Tach Rate: 116 Ectopy: None Physical Exam Const alert and no apparent distress HEENT head/scalp atraumatic and moist oral mucous membranes Resp normal respiratory effort, no retractions, no use of accessory muscles and clear to auscultation bilaterally Cardio regular rate, regular rhythm, S1 normal heart sound and S2 normal heart sound GI normal to inspection, nondistended, normoactive bowel sounds, soft to palpation, non-tender and non-distended Extremity normal to inspection and no clubbing, cyanosis or edema Neuro Sensorium / Orientation: awake and alert Assessment & Plan Assessment/Plan (1) Acute upper gastrointestinal hemorrhage: PLAN: Plan UGIB 2/2 bleeding gastric ulcers with visible vessel. EGD on 05/22 injected the vessel and treated with heater probe. Also with non-bleeding esophageal varix. CLD On PPI and octreotide gtt. Sucralfate ABLA Hg dropped to 6.4. Transfused 3 units PRBCs. Hg stable at 9.2 2/2 GIB Hemorrhagic shock 2/2 ABLA improved. no pressors required Chronic conditions: HTN: HLD: PAD: clopidogrel and rivaroxaban held given GI bleed. Resume in 96 hours. Recent transudative pleural effusion: no additional work up at this time. VTE prophylaxis: SCDs. Charges/Coding Visit Charges Inpatient E&M: 52206 Subs Hosp L2
[2024-05-25] MEDS: 0.9% Saline Lock 10 ML Syringe IV ×2 (10:22→21:54)
[2024-05-25 14:05] VITALS: BP 116/64; PULSE 78; RESP 18; TEMP 37.3; O2SAT 93
--- NOTE | 2024-05-25 21:26 | EX.PCM.PN.GI ---
Subjective Subjective Patient is doing better today. She denies any abdominal pain. She is tolerating diet. Objective Data Objective Data Vital Signs: Vital Signs Temp Pulse Resp BP Pulse Ox O2 Del Method O2 Flow Rate 99.1 F 78 18 116/64 93 Room Air 1 05/25/24 14:05 05/25/24 14:05 05/25/24 14:05 05/25/24 14:05 05/25/24 14:05 05/25/24 14:05 05/24/24 09:36 FiO2 100 05/23/24 07:38 Oxygen Flow Rate (L/min) 1 Oxygen Delivery Method Room Air Weight: 146 lb 6.191 oz Body Mass Index (BMI) 26.9 Intake & Output: Intake and Output for Last 24 Hours 05/23/24 05/24/24 05/25/24 23:59 23:59 23:59 Intake Total 911.83 / 911.83 448.67 / 448.67 202 / 202 Output Total 150 / 150 Balance 761.83 / 761.83 448.67 / 448.67 Medical Nutrition Assessment Dietitian: Malnutrition Criteria Met Start: 05/23/24 09:41 Freq: Status: Active Protocol: Document 05/23/24 09:41 SLA (Rec: 05/23/24 09:41 SLA [id number]) Nutrition Malnutrition Evidence of Malnutrition Exists Yes Malnutrition (severe): Acute Illness/Injury Evidenced By Suboptimal Energy Intake ( Severe),Weight Loss (Severe) Intake Problem Inadequate Oral Intake Etiology related to issues w/ GI dysfunction / GI bleed Signs/Symptoms as evidenced by NPO status Status Active Problem Clinical Problem Acute Disease or Injury Related Malnutrition Etiology related to issues w/ GI dysfunction and inadequate energy intake Signs/Symptoms related to 6.1% unintended wt loss x 5 days, 13.6% unintended wt loss and po intake meeting <75% of estimated nutritional needs x 1 month. Status Active Problem Recommendation Dietitian Recommendations/Changes As medically able, Rec ALEX to Cardiac Will order 8 oz apple ensure clear tid w/ meals for increased nutrition if consumed ( Lab / Micro Data 05/25/24 07:02 05/25/24 07:02 Labs: Laboratory Results - last 24 hr 05/22/24 09:30: Crossmatch See Detail 05/25/24 07:02: WBC 8.1, RBC 3.33 L, Hgb 9.0 L, Hct 28.0 L, MCV 84.1, MCH 27.0, MCHC 32.1, RDW Std Deviation 52.1 H, RDW Coeff of Alfie 17.1 H, Plt Count 308, MPV 9.5, Immature Gran % (Auto) 0.200, Neut % (Auto) 77.3 H, Lymph % (Auto) 13.0 L, Mccormick % (Auto) 7.7, Eos % (Auto) 1.2, Baso % (Auto) 0.6, Absolute Neuts (auto) 6.2, Absolute Lymphs (auto) 1.05, Nucleated RBC % 0, Sodium 141, Potassium 2.9 L, Chloride 106, Carbon Dioxide 30.0, Anion Gap 5, BUN 11, Creatinine 0.62, Estim Creat Clear Calc 60.32, Est GFR (MDRD) Af Amer 123, Est GFR (MDRD) Non-Af 101, BUN/Creatinine Ratio 17.6, Glucose 110 H, Calcium 8.4 L Rhythm Strip Rhythm Strip: Sinus Tach Rate: 116 Ectopy: None Physical Exam Const alert and no apparent distress HEENT head/scalp atraumatic and moist oral mucous membranes Resp normal respiratory effort, no retractions, no use of accessory muscles and clear to auscultation bilaterally Cardio regular rate, regular rhythm, S1 normal heart sound and S2 normal heart sound GI normal to inspection, nondistended, normoactive bowel sounds, soft to palpation, non-tender and non-distended Extremity normal to inspection and no clubbing, cyanosis or edema Neuro Sensorium / Orientation: awake and alert Assessment & Plan Assessment/Plan (1) Acidosis, lactic: (2) Symptomatic anemia: (3) S/P femoral-femoral bypass surgery: (4) Iron (Fe) deficiency anemia: (5) Hypoxia: (6) Fever: PLAN: Plan Acute on chronic GI bleed -Previously it appeared as if her her hemoglobin had slowly been trending down however baseline most recently has been between 9 and 10. - on her previous admission her hemoglobin was 3.5. She was transfused 4 units packed red blood cells on the day of admission -Since transfusion patient has been stable with hemoglobin between 7.5 and 9.1 again today -EGD was performed on demonstrated grade 1 esophageal varices, 2 angiodysplastic lesions in the gastric body that were treated with coagulation for hemostasis and mild localized erythematous mucosa in the gastric antrum that were biopsied, there were patchy erythematous mucosa without active bleeding and no stigmata of bleeding in the duodenal bulb where biopsies were taken as well -She will undergo an emergent endoscopy. She was explained alternatives, risk, benefits including not withstanding bleeding, infection, sepsis, perforation, need for emergent and . She have an ASA of 3. I did talk to her and her sister at the bedside and explained to them she may need a temporary NG or Dobbhoff tube or stay on a clear liquid diet for 2 weeks to allow this to heal fully. 05/23/2024- Patient denies any more bleeding since this morning. She was transfused one unit of blood cells. Findings from endoscopy on 05/22/2024: Grade I varices were found in the upper third of the esophagus. They were 5 mm in largest diameter. Four oozing cratered gastric ulcers with a visible vessel were found in the cardia, in the gastric fundus, in the gastric body and on the greater curvature of the stomach. The largest lesion was 6 mm in largest dimension. Area was successfully injected with 5 mL of a 0.1 mg/mL solution of epinephrine for drug delivery. Coagulation for hemostasis using heater probe was successful. Estimated blood loss was minimal. The second portion of the duodenum was normal. Impression: - Grade I esophageal varices. - Oozing gastric ulcers with a visible vessel. Injected. Treated with a heater probe. - Normal second portion of the duodenum. - No specimens collected. Recommendations: Clear liquidclear liquid diet. Recheck hemoglobin in the morning. 05/24/2024-patient is doing well. She has not had any more signs or symptoms of GI bleeding. She is off of anticoagulation. I would like her to be off of anticoagulation and antiplatelet therapy for at least a week prior to restarting any medicines. 05/25/2024- No changesno changes in the patients condition today. Her hemoglobin dropped down from 10.2 to 9. It is possible she's only having a collaboration. Her BUN to crack and ratio continues to be normal. She needs off of any coagulation and any platelet therapy. The goal is for her to resume any equation and 72 to 96 hours. Continue to monitor hemoglobin. I would give to IV iron transfusions tomorrow. Charges/Coding Visit Charges Inpatient E&M: 90003 Subs Hosp L3
[2024-05-25 21:35] VITALS: BP 123/58; PULSE 78; RESP 16; TEMP 37.1; O2SAT 92
[2024-05-25] MEDS: Pantoprazole Sodium 40 MG Tablet PO (21:49)
[2024-05-25] MEDS: Atorvastatin Calcium 20 MG Tablet PO (21:49)
[2024-05-26 02:25] VITALS: RESP 18; O2SAT 96
[2024-05-26 03:03] VITALS: BMI 26.9
[2024-05-26 03:35] VITALS: BP 143/82; PULSE 81; RESP 18; TEMP 37; O2SAT 96
--- NOTE | 2024-05-26 05:16 | NURSING ---
pt to the br and reports that she had a bm the lg soft and brown, this was not seen by staff . staff encouraged pt not to flush so stool could be checked for blood, pt acknowledged
[2024-05-26] MEDS: OCTREOTIDE IV ×2 (05:46→14:42)
[2024-05-26] MEDS: 0.9% Saline Lock 10 ML Syringe IV ×2 (05:46→12:15)
[2024-05-26] MEDS: NORMAL SALINE 0.9% IV ×2 (05:46→14:42)
[2024-05-26] MEDS: Sucralfate 1 GM Tablet PO ×3 (06:12→16:12)
[2024-05-26 06:21] VITALS: BMI 26.4
[2024-05-26 07:46] VITALS: PULSE 79; RESP 18; O2SAT 94
[2024-05-26] MEDS: Budesonide Respules 0.5 MG/2 ML AMPUL.NEB. INHALATION (07:46)
[2024-05-26] MEDS: Albuterol 2.5 MG/3 ML VIAL.NEB. INHALATION (07:46)
[2024-05-26 07:53] LABS: Absolute Lymphocyte Count 1.01 X10^3/uL (0.83-4.51); Absolute Neutrophil Count 5.2 X10^3/uL (2.0-7.7); Basophil# 0.04 X10^3/uL; Basophil% 0.6 % (0-1); Eosinophil# 0.08 X10^3/uL; Eosinophils% 1.2 % (0-5); Hematocrit 31.3 % (37-47); Hemoglobin 10.1 g/dL (12.0-15.0); Lymphocyte # 1.01 X10^3/ul (0.83-4.51); Lymphocyte % 14.6 % (19-41); Mean Corp Hgb Conc 32.3 g/dL (32-36); Mean Corpuscular Hgb 27.3 pg (27.0-32.0); Mean Corpuscular Volume 84.6 fL (81-99); Monocyte# 0.57 X10^3/uL; Monocyte% 8.3 % (0-10); NRBC Flagged by Analyzer 0 % (0-5); Neutrophil # 5.18 X10^3/uL (2.7-7.7); Platelet Count 307 K/mm3 (150-450); RBC Distribution Width CV 16.7 % (11.6-14.6); White Blood Count 6.9 K/mm3 (4.4-11.0)
[2024-05-26 08:05] VITALS: BP 159/71; PULSE 67; RESP 18; TEMP 36.6; O2SAT 98
[2024-05-26] MEDS: amLODIPine 5 MG Tablet PO (08:09)
[2024-05-26] MEDS: Pantoprazole Sodium 40 MG Tablet PO (08:09)
--- NOTE | 2024-05-26 09:02 | PCM.PN.HOSP ---
Reason for Visit Reason for Visit: Diagnoses Iron deficiency anemia, unspecified (05/22/24) Anemia, unspecified (05/22/24) Acidosis, unspecified (05/22/24) Gastrointestinal hemorrhage, unspecified (05/22/24) Hypoxemia (05/22/24) Fever, unspecified (05/22/24) Presence of other vascular implants and grafts (05/22/24) Subjective Subjective Feels well. Patient with BMs, but no further hematochezia. Objective Data Objective Data Vital Signs: Vital Signs Temp Pulse Resp BP Pulse Ox O2 Del Method O2 Flow Rate 36.6 C 67 18 159/71 H 98 Room Air 1 05/26/24 08:05 05/26/24 08:05 05/26/24 08:05 05/26/24 08:05 05/26/24 08:05 05/26/24 08:05 05/24/24 09:36 FiO2 100 05/23/24 07:38 Oxygen Flow Rate (L/min) 1 Oxygen Delivery Method Room Air Weight: 65.3 kg Body Mass Index (BMI) 26.4 Intake & Output: Intake and Output for Last 24 Hours 05/24/24 05/25/24 05/26/24 23:59 23:59 23:59 Intake Total 448.67 / 448.67 253 / 373 171 / 171 Balance 448.67 / 448.67 253 / 373 171 / 171 Medical Nutrition Assessment Dietitian: Malnutrition Criteria Met Start: 05/23/24 09:41 Freq: Status: Active Protocol: Document 05/23/24 09:41 ROBER (Rec: 05/23/24 09:41 ROBER [id number]) Nutrition Malnutrition Evidence of Malnutrition Exists Yes Malnutrition (severe): Acute Illness/Injury Evidenced By Suboptimal Energy Intake ( Severe),Weight Loss (Severe) Intake Problem Inadequate Oral Intake Etiology related to issues w/ GI dysfunction / GI bleed Signs/Symptoms as evidenced by NPO status Status Active Problem Clinical Problem Acute Disease or Injury Related Malnutrition Etiology related to issues w/ GI dysfunction and inadequate energy intake Signs/Symptoms related to 6.1% unintended wt loss x 5 days, 13.6% unintended wt loss and po intake meeting <75% of estimated nutritional needs x 1 month. Status Active Problem Recommendation Dietitian Recommendations/Changes As medically able, Rec ALEX to Cardiac Will order 8 oz apple ensure clear tid w/ meals for increased nutrition if consumed ( Lab / Micro Data 05/26/24 07:13 05/26/24 07:13 Labs: Laboratory Results - last 24 hr 05/22/24 09:30: Crossmatch See Detail 05/26/24 07:13: WBC 6.9, RBC 3.70 L, Hgb 10.1 L, Hct 31.3 L, MCV 84.6, MCH 27.3, MCHC 32.3, RDW Std Deviation 52.0 H, RDW Coeff of Alfie 16.7 H, Plt Count 307, MPV 10.0, Immature Gran % (Auto) 0.300, Neut % (Auto) 75.0 H, Lymph % (Auto) 14.6 L, Day % (Auto) 8.3, Eos % (Auto) 1.2, Baso % (Auto) 0.6, Absolute Neuts (auto) 5.2, Absolute Lymphs (auto) 1.01, Nucleated RBC % 0 Rhythm Strip Rhythm Strip: Sinus Tach Rate: 116 Ectopy: None Physical Exam Const alert and no apparent distress HEENT head/scalp atraumatic and moist oral mucous membranes Resp normal respiratory effort, no retractions, no use of accessory muscles and clear to auscultation bilaterally Cardio regular rate, regular rhythm, S1 normal heart sound and S2 normal heart sound GI normal to inspection, nondistended, normoactive bowel sounds, soft to palpation, non-tender and non-distended Extremity normal to inspection, full ROM and no clubbing, cyanosis or edema Neuro Sensorium / Orientation: awake and alert Assessment & Plan Assessment/Plan (1) Acute upper gastrointestinal hemorrhage: PLAN: Plan UGIB 2/2 bleeding gastric ulcers with visible vessel. EGD on 05/22 injected the vessel and treated with heater probe. Also with non-bleeding esophageal varix. CLD On PPI and octreotide gtt. Sucralfate ABLA Hg dropped to 6.4. Transfused 3 units PRBCs. Hg stable at 9.2 2/2 GIB Hemorrhagic shock 2/2 ABLA improved. no pressors required Hypokalemia replace Chronic conditions: HTN: HLD: PAD: clopidogrel and rivaroxaban held given GI bleed. Resume in 96 hours. Recent transudative pleural effusion: no additional work up at this time. VTE prophylaxis: SCDs. Discharge home after potassium replacement. Pt decline HHC.
--- NOTE | 2024-05-26 11:05 | NURSING ---
called lab regarding pending chemistry results from 712
[2024-05-26 11:17] LABS: Anion Gap 6 (5-15); BUN 7 mg/dL (7-18); BUN/Creat Ratio 13.1 RATIO (10-20); Calcium,Total 8.4 mg/dL (8.5-10.1); Chloride 106 mmol/L (98-107); Creatinine, Serum 0.54 mg/dL (0.55-1.02); EST Glomerular Filtration Rate 121 mL/min (>60); Est Glom Filt Rate - Afr Amer 146 mL/min (>60); Estimated Creatinine Clearance 59.84 ml/min; Glucose 105 mg/dL (74-106); Potassium 2.8 mmol/L (3.5-5.1); Sodium Level 142 mmol/L (136-145)
[2024-05-26] MEDS: Potassium Chloride Oral Tablet 20 MEQ 60 MEQ PO (11:45)
[2024-05-26] MEDS: Potassium Chloride 10mEq/100mL 10 MEQ/100 ML IV.SOLN. 100 MEQ IV BOLUS ×4 (12:14→16:12)
[2024-05-26] MEDS: 0.9% Normal Saline (250mL Bag) 250 ML 15 ML IV (12:15)
--- NOTE | 2024-05-26 12:22 | DS.PCM_ITS ---
Providers Date of Admission: 05/22/24 Primary Care Physician: Vincent Ashley, RUST[facility]-C Consultations 05/22/24 11:47 Consult: Gastroenterology Routine Consulting Provider: [facility] Reason for Consult: GI bleed EMERGENT Consult: Yes MD Notified: Yes Date Notified: 05/22/24 Time Notified: 10:09 Method of Notification: ED Physician Initiated Reason For Visit: GI BLEED Diagnosis Discharge Diagnosis (1) Acute upper gastrointestinal hemorrhage: Status: Acute Code(s): K92.2 - Gastrointestinal hemorrhage, unspecified Plan UGIB * 2/2 bleeding gastric ulcers with visible vessel. * EGD on 05/22 injected the vessel and treated with heater probe. Also with non- bleeding esophageal varix. * CLD * On PPI and octreotide gtt. Sucralfate ABLA * Hg dropped to 6.4. * Transfused 3 units PRBCs. Hg stable at 9.2 * 2/2 GIB Hemorrhagic shock * 2/2 ABLA * improved. * no pressors required Hypokalemia * replace Chronic conditions: * HTN: * HLD: * PAD: clopidogrel and rivaroxaban held given GI bleed. Resume in 96 hours. * Recent transudative pleural effusion: no additional work up at this time. VTE prophylaxis: SCDs. Discharge home after potassium replacement. Pt decline HHC. Medications at Discharge Home Medications acetaminophen 650 mg tablet,extended release (Tylenol Arthritis Pain) 650 mg PO Q6H PRN Pain 06/25/18 albuterol sulfate 90 mcg/actuation aerosol inhaler 2 puff inhalation Q6H PRN shortness of breath or wheezing 01/08/24 amlodipine 5 mg tablet 5 mg PO DAILY blood pressure 01/08/24 budesonide-formoterol HFA 160 mcg-4.5 mcg/actuation aerosol inhaler 2 puff inhalation BID breathing 01/08/24 rosuvastatin 10 mg tablet 10 mg PO DAILY cholesterol 01/08/24 rivaroxaban 2.5 mg tablet (Xarelto) 2.5 mg PO BID blood thinner #60 tabs 01/22/24 cholecalciferol (vitamin D3) 1,250 mcg (50,000 unit) capsule 1,250 mcg PO TH vitamin 05/03/24 oxymetazoline 0.05 % nasal spray (12 Hour Nasal Relief [place]) 2 spray intranasal BID PRN nasal congestion 05/18/24 pantoprazole 40 mg tablet,delayed release (Protonix) 40 mg PO BID 30 days #60 tabs 05/20/24 sucralfate 1 gram tablet (Carafate) 1 g PO Q6H 30 days #120 tabs 05/20/24 Hospital Course Operations None Procedures EGD Summary of Care Provided Minutes Spent on Discharge: 32 Hospital Course: Patient presented with GI bleed. Patient underwent an EGD on the seventh that showed grade 1 esophageal varices, oozing gastric ulcers with visible vessel that was injected. Patient did have acute loss anemia requiring 3 units of packed red blood cells. Patient had hypokalemia which was replaced. Patient was debilitated but declined home health care services. Patient will be discharged home. Discussed with Dr. Frost, given the repeated GI bleeds, he recommends discontinuing the clopidogrel and continue with the 2.5 mg twice daily dosing of her rivaroxaban. He stated that if she bleeds again that that may need to be discontinued as well but will continue with Xarelto for now. Medical Records Data Medical Nutrition Assessment Dietitian: Malnutrition Criteria Met Start: 05/23/24 09:41 Freq: Status: Active Protocol: Document 05/23/24 09:41 [facility] (Rec: 05/23/24 09:41 [facility] [id number]) Nutrition Malnutrition Evidence of Malnutrition Exists Yes Malnutrition (severe): Acute Illness/Injury Evidenced By Suboptimal Energy Intake ( Severe),Weight Loss (Severe) Intake Problem Inadequate Oral Intake Etiology related to issues w/ GI dysfunction / GI bleed Signs/Symptoms as evidenced by NPO status Status Active Problem Clinical Problem Acute Disease or Injury Related Malnutrition Etiology related to issues w/ GI dysfunction and inadequate energy intake Signs/Symptoms related to 6.1% unintended wt loss x 5 days, 13.6% unintended wt loss and po intake meeting <75% of estimated nutritional needs x 1 month. Status Active Problem Recommendation Dietitian Recommendations/Changes As medically able, Rec ALEX to Cardiac Will order 8 oz apple ensure clear tid w/ meals for increased nutrition if consumed ( Weight / BMI Weight Weight: 65.3 kg Body Mass Index (BMI) 26.4 ABG / Lab / Microbiology Data 05/26/24 07:13 05/26/24 07:13 Laboratory: Laboratory Results - last 24 hr 05/26/24 07:13: WBC 6.9, RBC 3.70 L, Hgb 10.1 L, Hct 31.3 L, MCV 84.6, MCH 27.3, MCHC 32.3, RDW Std Deviation 52.0 H, RDW Coeff of Alfie 16.7 H, Plt Count 307, MPV 10.0, Immature Gran % (Auto) 0.300, Neut % (Auto) 75.0 H, Lymph % (Auto) 14.6 L, [place] % (Auto) 8.3, Eos % (Auto) 1.2, Baso % (Auto) 0.6, Absolute Neuts (auto) 5.2, Absolute Lymphs (auto) 1.01, Nucleated RBC % 0, Sodium 142, Potassium 2.8 L , Chloride 106, Carbon Dioxide 30.0, Anion Gap 6, BUN 7, Creatinine 0.54 L, Estim Creat Clear Calc 59.84, Est GFR (MDRD) Af Amer 146, Est GFR (MDRD) Non-Af 121, BUN/Creatinine Ratio 13.1, Glucose 105, Calcium 8.4 L D/C Instructions Discharge Diet: No restrictions and Low fat / Low cholesterol Meaningful Use Info Meaningful Use Meaningful Use Diagnoses (Choose all that apply): None applicable Ischemic Stroke Statin Dosing Therapy Reference: STATIN DOSE THERAPY REFERENCE: * Patients > 75 years receive moderate or high dose statin therapy. * Patients 75 years or YOUNGER should receive HIGH intensity statin dose unless contraindicated. You will be required to document reason for non-treatment if statin daily dose does not meet guidelines. HIGH DOSE STATIN THERAPY DAILY Atorvastatin > than or = to 40 mg Rosuvastatin > than or = to 20 mg Amlodipine + Atorvastatin > than or = to 2.5/40 mg Ezetimibe + Simvastatin 10/80 mg Simvastatin 80mg Discharge Plan Admission Admit Date/Time: 05/22/24 10:06 Primary Reason for Your Visit: GI bleed Attending Provider: Selvin Barrera Primary Care Provider: Vincent Ashley [facility] Consulting Providers: Leo Chavez Instructions Additional Instructions / Restrictions: As you know he had no GI bleed this time due to an ulcer. Dr. Kincaid was able to take care of that. Is important that you do continue to take your Protonix and sucralfate. I did discuss this with Dr. Frost and he recommends, since you have been having so frequent episodes of bleeding, to stop your Plavix (also known as clopidogrel). You can continue with your Xarelto (also known as rivaroxaban). I would like you to start your Xarelto in 2 days. Please follow- up with Dr. Frost next 1 to 2 weeks. If you do have a recurrent bleeding, notify your physician or return to the emergency room. Discharge Orders/Prescriptions Prescriptions: Continued acetaminophen [Tylenol Arthritis Pain] 650 mg tablet extended release 650 mg PO Q6H PRN (Reason: Pain) amlodipine 5 mg tablet 5 mg PO DAILY rosuvastatin 10 mg tablet 10 mg PO DAILY albuterol sulfate 90 mcg/actuation HFA aerosol inhaler 2 puff INHALATION Q6H PRN (Reason: shortness of breath or wheezing) budesonide-formoterol 160-4.5 mcg/actuation HFA aerosol inhaler 2 puff INHALATION BID cholecalciferol (vitamin D3) 1,250 mcg (50,000 unit) capsule 1,250 mcg PO TH oxymetazoline [12 Hour Nasal Relief Dane] 0.05 % spray,non-aerosol 2 spray intranasal BID PRN (Reason: nasal congestion) pantoprazole [Protonix] 40 mg tablet,delayed release (DR/EC) 40 mg PO BID 30 Days Qty: 60 2RF sucralfate [Carafate] 1 gram tablet 1 g PO Q6H 30 Days Qty: 120 2RF Held Xarelto 2.5 mg tablet 2.5 mg PO BID Qty: 60 5RF Hold Instructions: Resume on 05/28/24. Discontinued clopidogrel [Plavix] 75 mg tablet 75 mg PO DAILY Qty: 30 5RF Referrals / Follow Up: [facility] [Provider Group] - 07/05/24 10:00 am Selvin Frost MD [Med Staff - Active Staff] - 06/08/24 11:00 am Vincent Ashley NP, [facility] [Primary Care Provider] - Within 2 Weeks Disposition Disposition (needs filled in before D/C Order can be placed): Home, Self Care
--- NOTE | 2024-05-26 12:44 | CASEMGMT ---
Order for DC placed. This RN CM to pt room at this time, Pt states that her sister will drive her home from the hospital today. Pt states that she lives with her son who can provide the pt with support at home if needed. Pt sister also lives close by. Pt continues to deny the need for HHC, OP Tx, SNF placement, CCN, or pt link. Pt denies any further questions or concerns and is ready for DC today.
--- NOTE | 2024-05-26 15:00 | PHA.DC_ITS ---
Pharmacy [place] Med Reconciliation Pharmacy Service has performed discharge medication reconciliation for this patient. No new medications at time of discharge medication review. medications reviewed are from previously reported home medications. The patient's discharge medication list was reviewed for discrepancies and discrepancies were resolved. Medications at Discharge Home Medications acetaminophen 650 mg tablet,extended release (Tylenol Arthritis Pain) 650 mg PO Q6H PRN Pain 06/25/18 albuterol sulfate 90 mcg/actuation aerosol inhaler 2 puff inhalation Q6H PRN shortness of breath or wheezing 01/08/24 amlodipine 5 mg tablet 5 mg PO DAILY blood pressure 01/08/24 budesonide-formoterol HFA 160 mcg-4.5 mcg/actuation aerosol inhaler 2 puff inhalation BID breathing 01/08/24 rosuvastatin 10 mg tablet 10 mg PO DAILY cholesterol 01/08/24 rivaroxaban 2.5 mg tablet (Xarelto) 2.5 mg PO BID blood thinner #60 tabs 01/22/24 cholecalciferol (vitamin D3) 1,250 mcg (50,000 unit) capsule 1,250 mcg PO TH vitamin 05/03/24 oxymetazoline 0.05 % nasal spray (12 Hour Nasal Relief [place]) 2 spray intranasal BID PRN nasal congestion 05/18/24 pantoprazole 40 mg tablet,delayed release (Protonix) 40 mg PO BID 30 days #60 tabs 05/20/24 sucralfate 1 gram tablet (Carafate) 1 g PO Q6H 30 days #120 tabs 05/20/24
[2024-05-26 16:37] VITALS: BP 149/83; PULSE 90; RESP 18; TEMP 36.8; O2SAT 98
--- NOTE | 2024-05-30 18:13 | CON.PCM.GI_ITS ---
HPI Consult Data Date of Consult: 05/30/24 HPI Narrative Reason for Consultation: GI bleed HPI Narrative: TONY BRADLEY, is a 68 F who presents with melanotic stools. She has a past medical history of PAOD/PVD, Tobacco use, Chronic anemia/Fe deficiency anemia, Hx GI bleed w/ AVMs, recent 05/22/24-05/26/24 admission secondary to acute upper GI bleed. This was secondary to bleeding gastric ulcers with visible vessel with EGD 05/22/24 with injection and treatment with heater probe with also noted nonbleeding esophageal varices placed on PPI and octreotide drip. As well as sucralfate at that time with hemoglobin dropping to 6.4 with transfusion of 3 unit PRBC with hemoglobin upon discharge stable at 9.2 with associated hemorrhagic shock however no pressors were required and resolved who now represents to the [facility] ED on 05/28/24 with history of 3 separate episodes of black stools on day of presentation in the evening with no abdominal pain, dyspnea or chest discomfort but given appearance and concern with recent admission prompted ED evaluation. Workup in the ED included T99.1, heart rate 119, BP 153/99, respiratory rate 18, 100% on room air, CBC with WC 13.3, hemoglobin 11.7, MCV 84.1, platelet 371 with left shift, BMP with potassium 3.3, stool guaiac positive, CTA abdomen and pelvis with no acute abnormality no evidence of any identifiable GI bleed. [facility] Medical History Anticoagulant long-term use Transfusion of blood during current hospitalisation AVM (arteriovenous malformation) Colitis Antiplatelet or antithrombotic long-term use Iron (Fe) deficiency anemia Atherosclerosis of [place] arteries of extremities with gangrene, left leg Carotid stenosis, bilateral Tobacco abuse Peripheral arterial occlusive disease Cervical cancer PVD (peripheral vascular disease) Arthritis Home Medications ?Medication ?Instructions ?Recorded ?Last Taken ?Type acetaminophen 650 mg 650 mg PO Q6H PRN Pain 06/25/18 05/21/24 History tablet,extended release (Tylenol Arthritis Pain) albuterol sulfate 90 mcg/actuation 2 puff inhalation Q6H PRN 01/08/24 Unknown History aerosol inhaler shortness of breath or wheezing amlodipine 5 mg tablet 5 mg PO DAILY blood pressure 01/08/24 05/21/24 History budesonide-formoterol HFA 160 2 puff inhalation BID breathing 01/08/24 05/21/24 History mcg-4.5 mcg/actuation aerosol inhaler rosuvastatin 10 mg tablet 10 mg PO DAILY cholesterol 01/08/24 05/21/24 History rivaroxaban 2.5 mg tablet (Xarelto) 2.5 mg PO BID blood thinner #60 01/22/24 05/21/24 Rx tabs cholecalciferol (vitamin D3) 1,250 1,250 mcg PO TH vitamin 05/03/24 05/19/24 History mcg (50,000 unit) capsule oxymetazoline 0.05 % nasal spray 2 spray intranasal BID PRN nasal 05/18/24 Unknown History (12 Hour Nasal Relief [place]) congestion pantoprazole 40 mg tablet,delayed 40 mg PO BID GERD 30 days #60 tabs 05/20/24 05/21/24 Rx release (Protonix) sucralfate 1 gram tablet (Carafate) 1 g PO Q6H stomach 30 days #120 05/20/24 05/21/24 Rx tabs Allergy/AdvReac Type Severity Reaction Status Date / Time No Known Allergies Allergy Verified 05/28/24 20:51 Family History Mother Breast cancer Surgical History S/P femoral-femoral bypass surgery S/P LEFT ARTERIOGRAM Social History household members: none Smoking Status: Current some day smoker tobacco type: cigarettes alcohol intake: never substance use type: does not use ROS ROS Narrative Admission Review of Systems: CONSTITUTIONAL: No weight loss, fever, chills, + weakness or fatigue. HEENT: Eyes: No visual loss, blurred vision, double vision or yellow sclerae. Ears, Nose, Throat: No hearing loss, sneezing, congestion, runny nose or sore throat. SKIN: No rash or itching, lesions, wounds. CARDIOVASCULAR: No chest pain, chest pressure or chest discomfort, palpitations, edema, orthopnea, syncopal events. RESPIRATORY: No shortness of breath, cough or sputum, wheezing, hemoptysis. GASTROINTESTINAL: + Recurrent dark black stools/melanotic stools x 3. No anorexia, nausea, vomiting or diarrhea, abdominal pain, BRBPR. GENITOURINARY: No dysuria, frequency, urgency or retention. NEUROLOGICAL: No headache, dizziness, syncope, paralysis, ataxia, numbness or tingling in the extremities, focal weakness, change in bowel or bladder control, seizure. MUSCULOSKELETAL: No muscle, back pain, joint pain or stiffness. HEMATOLOGIC: + Chronic anemia, easy bruising, bleeding as noted above. LYMPHATICS: No enlarged nodes. No history of splenectomy. PSYCHIATRIC: No history of depression or anxiety. ENDOCRINOLOGIC: No reports of sweating, cold or heat intolerance. No polyuria or polydipsia. ALLERGIES: No history of asthma, hives, eczema or rhinitis. Physical Exam Const alert and no apparent distress HEENT moist oral mucous membranes Resp normal respiratory effort, no retractions, no use of accessory muscles and clear to auscultation bilaterally Cardio regular rate, regular rhythm, S1 normal heart sound and S2 normal heart sound GI normal to inspection, nondistended, normoactive bowel sounds, soft to palpation, non-tender and non-distended Lab / Micro Data 05/26/24 07:13 05/26/24 07:13 Rhythm Strip Rhythm Strip: Sinus Tach Rate: 116 Ectopy: None Assessment & Plan Assessment/Plan (1) Orthostatic hypotension: (2) Upper GI bleed: PLAN: Plan The patient is a 68 y/o with GI bleed w/ AVMs, recent 05/22/24-05/26/24 admission secondary to acute upper GI bleed secondary to bleeding gastric ulcers. She presents back with melanotic stools. Hemoglobin upon discharge stable at 9.2 with associated hemorrhagic shock however no pressors were required and resolved who now represents to the [facility] ED on 05/28/24 with history of 3 separate episodes of black stools on day of presentation. Recurrent dark black stools with recent upper GI bleed secondary to bleeding gastric ulcers with also known AVMs with notable orthostasis although not markedly symptomatic w/ upon admission stable chronic anemia/Fe deficiency anemia: Fortunately CTA abdomen pelvis without any acute finding, recent EGD 05/22/24 with injection and treatment with heater probe with also noted nonbleeding esophageal varices. Patient is doing well and her hemoglobin has been stable. She is able okay to go home from GI standpoint. Continue to hold anticoagulation and antiplatelet therapy for 7 days. Encouraged to stop smoking. Charges/Coding Visit Charges Inpatient E&M: 34298 Init Hosp L3
== END 2024-05-26 18:00 | disposition home or self-care (01) | DRG 377 ==
LOC: ED 10:09 → ICU 11:19 → MS3 05-24 10:19
PROVIDERS: Internal Medicine Gastroenterology; Admitting Provider Family Medicine; Emergency Provider Emergency Medicine; PCP Nurse Practitioner Family
PROC: 0DJ08ZZ Inspection of Upper Intestinal Tract, Via Natural or Artificial Opening Endoscopic (ICD-10-PCS; CPT 43235; principal; 2024-05-22 13:30)
DX: K25.4 Chronic or unspecified gastric ulcer with hemorrhage (principal); E43 Unspecified severe protein-calorie malnutrition; R57.8 Other shock; E87.20 Acidosis, unspecified; D62 Acute posthemorrhagic anemia; I85.00 Esophageal varices without bleeding; I73.9 Peripheral vascular disease, unspecified; I10 Essential (primary) hypertension; D50.9 Iron deficiency anemia, unspecified; I25.10 Atherosclerotic heart disease of native coronary artery without angina pectoris; E78.5 Hyperlipidemia, unspecified; E87.6 Hypokalemia; R09.02 Hypoxemia; Z79.02 Long term (current) use of antithrombotics/antiplatelets; Z79.01 Long term (current) use of anticoagulants; Z95.828 Presence of other vascular implants and grafts; Z68.26 Body mass index [BMI] 26.0-26.9, adult
CPT/HCPCS: 36415; 80048; 83605; 85014; 85018; 85025; 85610; 86644; 86850; 86900; 86901; 86920; 86922; 93005; 94640; 97802; 97803; 99283; J7040; J7050; P9016; A4216; C9159; J2354; J2405; J3490

== ENCOUNTER 2024-05-28 20:50 | Observation (INO) | payer MEDICARE, SELFPAY ==
[2024-05-28 20:51] VITALS: BP 153/99; PULSE 119; RESP 18; TEMP 37.3; O2SAT 100
[2024-05-28 20:52] VITALS: BP 171/97; PULSE 123; RESP 18; TEMP 36.3; O2SAT 99; BMI 21.9
--- NOTE | 2024-05-28 21:07 | EDS_ITS ---
HPI <ANN MARIE Farnsworth - Last Filed: 05/28/24 22:32> History of Present Illness Chief Complaint: GI Bleed Narrative Narrative: Patient is 68-year-old femaleWith history of esophageal varices who sees Dr. Kincaid. Patient recently discharged 2 days ago for the same. Presenting to the emergency department for black stool 3 separate episodes tonight. Patient was told if she ever has black stool to come to the emergency department.Patient's hemoglobin 2 days ago was 10.1. Patient states that she usually have to have multiple units of blood when she is admitted. Patient denies any chest pain or abdominal pain. [facility] <ANN MARIE Farnsworth - Last Filed: 05/28/24 22:32> [facility] Medical History AVM (arteriovenous malformation) Colitis Antiplatelet or antithrombotic long-term use Iron (Fe) deficiency anemia Atherosclerosis of [place] arteries of extremities with gangrene, left leg Carotid stenosis, bilateral Tobacco abuse Peripheral arterial occlusive disease Cervical cancer PVD (peripheral vascular disease) Arthritis Home Medications ?Medication ?Instructions ?Recorded ?Last Taken ?Type acetaminophen 650 mg 650 mg PO Q6H PRN Pain 06/25/18 05/21/24 History tablet,extended release (Tylenol Arthritis Pain) albuterol sulfate 90 mcg/actuation 2 puff inhalation Q6H PRN 01/08/24 Unknown History aerosol inhaler shortness of breath or wheezing amlodipine 5 mg tablet 5 mg PO DAILY blood pressure 01/08/24 05/21/24 History budesonide-formoterol HFA 160 2 puff inhalation BID breathing 01/08/24 05/21/24 History mcg-4.5 mcg/actuation aerosol inhaler rosuvastatin 10 mg tablet 10 mg PO DAILY cholesterol 01/08/24 05/21/24 History rivaroxaban 2.5 mg tablet (Xarelto) 2.5 mg PO BID blood thinner #60 01/22/24 05/21/24 Rx tabs cholecalciferol (vitamin D3) 1,250 1,250 mcg PO TH vitamin 05/03/24 05/19/24 His tory mcg (50,000 unit) capsule oxymetazoline 0.05 % nasal spray 2 spray intranasal BID PRN nasal 05/18/24 Unknown History (12 Hour Nasal Relief [place]) congestion pantoprazole 40 mg tablet,delayed 40 mg PO BID 30 days #60 tabs 05/20/24 05/21/24 Rx release (Protonix) sucralfate 1 gram tablet (Carafate) 1 g PO Q6H 30 days #120 tabs 05/20/24 05/21/24 Rx Allergy/AdvReac Type Severity Reaction Status Date / Time No Known Allergies Allergy Verified 05/28/24 20:51 Family History Mother Breast cancer Surgical History S/P femoral-femoral bypass surgery S/P LEFT ARTERIOGRAM Social History Smoking Status: Current some day smoker tobacco type: cigarettes alcohol intake: never substance use type: does not use ROS <ANN MARIE Farnsworth - Last Filed: 05/28/24 22:32> ROS ED ROS Narrative Constitutional: Negative for fever, chills, weight loss, weakness Eyes: Negative for vision loss, vision change, double vision ENT: Negative for any sore throat, ear pain, congestion Cardiovascular: Negative for any chest pain, tightness, palpitations Respiratory: Negative for any cough, sputum production, hemoptysis, dyspnea, dyspnea on exertion, orthopnea Gastrointestinal: Negative for any abdominal pain, nausea, vomiting, diarrhea, constipation, blood in vomit. Positive for black stool : Negative for any urinary frequency, dysuria, retention, blood in urine Muscle skeletal: Negative for any neck pain, back pain Neurological: Negative for any headache, syncope, dizziness Skin: Negative for any rashes, itching, abrasions, lacerations Psychiatric: Negative for any depression, anxiety, stress, suicidal ideation, homicidal ideation Hematologic: Negative for any excessive bruising, easy bleeding EXAM <ANN MARIE Farnsworth - Last Filed: 05/28/24 22:32> Physical Exam Narrative Exam Narrative: Vital signs reviewed. HEET: Head normocephalic atraumatic, TMs clear bilaterally. Posterior pharynx is clear, moist mucous membranes. Nares clear bilaterally. Neck: Supple with no lymphadenopathy or tenderness. No signs of meningismus. Cardiac: Regular rate and rhythm no murmurs gallops or rubs, equal peripheral pulses bilaterally. Respiratory: Lungs clear to auscultation bilaterally. No chest tenderness. Abdomen: Soft, nontender, nondistended. No abdominal bruit or pulsatile masses. No hepatosplenomegaly Extremities: No peripheral edema, no signs of gross trauma or deformity. Active full range of motion of all extremities. Neuro: Cranial nerves II through XII intact, no focal neurological deficits. Skin: Clean dry and intact with no rash, purpura, petechiae, vesicles or pustules. Backs/flank: No CVA tenderness, no midline spinal tenderness, no deformity. Psych: Normal mood and affect. No SI, HI or acute psychosis. Rectal: Rectal exam was completed with female nurse jamie Mills, patient had multiple chronic hemorrhoids, no jaimie red bleeding, jaimie red blood. Patient rectal vault was empty, light green stool residue was seen. Const Vital Signs: 05/28/24 20:51 05/28/24 20:52 05/28/24 21:29 Temperature 99.1 F 97.4 F L Temperature Source Oral Temporal Pulse Rate 119 H 123 H Pulse Rate [Lying] 116 H Pulse Rate [Sitting (for 1 minute prior to obtaining)] 125 H Pulse Rate [Standing (for 1 minute prior to obtaining)] 126 H Respiratory Rate 18 18 Blood Pressure 153/99 H 171/97 H Blood Pressure [Lying] 136/81 H Blood Pressure [Sitting (for 1 minute prior to obtaining)] 145/94 H Blood Pressure [Standing (for 1 minute prior to obtaining)] 129/81 H Blood Pressure Mean 117 121 Blood Pressure Mean [Lying] 99 Blood Pressure Mean [Sitting (for 1 minute prior to obtaining)] 111 Blood Pressure Mean [Standing (for 1 minute prior to obtaining)] 97 Pulse Ox 100 99 Oxygen Delivery Method Room Air Room Air 05/28/24 23:10 Temperature Temperature Source Pulse Rate 95 Pulse Rate [Lying] Pulse Rate [Sitting (for 1 minute prior to obtaining)] Pulse Rate [Standing (for 1 minute prior to obtaining)] Respiratory Rate 18 Blood Pressure 145/62 H Blood Pressure [Lying] Blood Pressure [Sitting (for 1 minute prior to obtaining)] Blood Pressure [Standing (for 1 minute prior to obtaining)] Blood Pressure Mean 89 Blood Pressure Mean [Lying] Blood Pressure Mean [Sitting (for 1 minute prior to obtaining)] Blood Pressure Mean [Standing (for 1 minute prior to obtaining)] Pulse Ox 97 Oxygen Delivery Method Room Air <Dr. Kathie Stallworth DO - Last Filed: 05/28/24 23:23> Physical Exam Const Vital Signs: 05/28/24 20:51 05/28/24 20:52 05/28/24 21:29 Temperature 99.1 F 97.4 F L Temperature Source Oral Temporal Pulse Rate 119 H 123 H Pulse Rate [Lying] 116 H Pulse Rate [Sitting (for 1 minute prior to obtaining)] 125 H Pulse Rate [Standing (for 1 minute prior to obtaining)] 126 H Respiratory Rate 18 18 Blood Pressure 153/99 H 171/97 H Blood Pressure [Lying] 136/81 H Blood Pressure [Sitting (for 1 minute prior to obtaining)] 145/94 H Blood Pressure [Standing (for 1 minute prior to obtaining)] 129/81 H Blood Pressure Mean 117 121 Blood Pressure Mean [Lying] 99 Blood Pressure Mean [Sitting (for 1 minute prior to obtaining)] 111 Blood Pressure Mean [Standing (for 1 minute prior to obtaining)] 97 Pulse Ox 100 99 Oxygen Delivery Method Room Air Room Air 05/28/24 23:10 Temperature Temperature Source Pulse Rate 95 Pulse Rate [Lying] Pulse Rate [Sitting (for 1 minute prior to obtaining)] Pulse Rate [Standing (for 1 minute prior to obtaining)] Respiratory Rate 18 Blood Pressure 145/62 H Blood Pressure [Lying] Blood Pressure [Sitting (for 1 minute prior to obtaining)] Blood Pressure [Standing (for 1 minute prior to obtaining)] Blood Pressure Mean 89 Blood Pressure Mean [Lying] Blood Pressure Mean [Sitting (for 1 minute prior to obtaining)] Blood Pressure Mean [Standing (for 1 minute prior to obtaining)] Pulse Ox 97 Oxygen Delivery Method Room Air [facility] <ANN MARIE Farnsworth - Last Filed: 05/28/24 22:32> [facility] Lab Data Labs: Laboratory Results - last 24 hr 05/28/24 21:18 WBC 13.3 H RBC 4.41 Hgb 11.7 L Hct 37.1 MCV 84.1 MCH 26.5 L MCHC 31.5 L RDW Std Deviation 51.4 H RDW Coeff of Alfie 16.7 H Plt Count 371 MPV 10.1 Immature Gran % (Auto) 0.300 Neut % (Auto) 79.0 H Lymph % (Auto) 13.1 L Reynolds % (Auto) 6.0 Eos % (Auto) 1.3 Baso % (Auto) 0.3 Absolute Neuts (auto) 10.5 H Absolute Lymphs (auto) 1.73 Nucleated RBC % 0 Sodium 139 Potassium 3.3 L Chloride 106 Carbon Dioxide 26.0 Anion Gap 7 BUN 14 Creatinine 0.79 Estim Creat Clear Calc 69.78 Est GFR (MDRD) Af Amer 93 Est GFR (MDRD) Non-Af 77 BUN/Creatinine Ratio 17.7 Glucose 96 Calcium 9.4 Treatment and Re-Evaluation :: Differential diagnosis includes however is not limited to: Upper GI bleed, lower GI bleed, anemia, acute on chronic anemia Patient appears to be in no obvious distress, patient is slightly tachycardic however patient appears stable, nontoxic-appearing. Presenting to the emergency department with complaints of black tarry stools. She does have a long history of upper GI bleeding, blood transfusions. Last hemoglobin was 10.1. two days ago, this will be repeated patient does have history of being on Xarelto however this is on hold. Patient received CBC, BMP, I did perform a rectal which shows no jaimie bleeding, dark or green stool residue. This will be tested. Patient stool occult was positive. Patient remains tachycardic greater than 120. Patient did have orthostatic vital signs, patient was positive when she stood up, blood pressure did drop 20 points. Patient's CBC shows a leukocytosis with a white blood count of 13.3, hemoglobin 11.7, 2 days ago was 10.1, chemistry shows slight hypokalemia at 3.3. I will reach out to Dr. Kincaid regarding this patient. Spoke with Dr. Kincaid, patient was orthostatic positive, she continues to be tachycardic. Will give the patient's heart rate, when she was discharged, is between 60-75. Dr. Kincaid requested a CTA of the abdomen pelvis, admission for observation to trend her hemoglobin. <Dr. Kathie Stallworth, DO - Last Filed: 05/28/24 23:23> [facility] Narrative Medical decision making narrative: I have personally performed a face to face assessment of the patient and have reviewed the DIANNA Note. I performed a substantive portion of the visit including all aspects of the following. My [place] findings include: History is [patient presents the emergency department with concern for rectal bleeding. Patient states that she noticed that her stool was black when she had a bowel movement this evening. Patient is concerned because she has history of upper GI hemorrhage and was just discharged several days ago from this hospital after an upper GI hemorrhage and had to have cautery of suspected peptic ulcer and banding of varices. Patient states she ate some raspberries earlier this evening. She has not had any vomiting of blood this episode. She denies feeling lightheaded or dizzy. She denies abdominal pain. She otherwise states she feels great.] Exam is [HEENT-PERRLA, EOMI. Cranial nerves II through XII grossly intact. TMs clear. Mucous membranes moist. No adenopathy. Cardiovascular-regular rate and rhythm without murmur or ectopy Lungs-clear to auscultation, chest wall stable without crepitus or subcu emphysema Abdomen-normoactive bowel sounds, soft, nontender, no rebound or rigidity, no peritoneal signs. Extremities-intact ?4, normal range of motion, normal pulses, atraumatic] Medical Decison Making [patient presents emergency department concern for upper GI bleed. Patient noted to be tachycardic on arrival. She had an IV line established. CBC with differential obtained showed white, 13.3 with hemoglobin 11.7 and platelet count of 371. Chemistries unremarkable. BUN 14 and creatinine 0.79. Hemoccult was positive. Orthostatic vital signs were positive. Patient case was discussed with Dr. Kincaid who is patient's green marketing analyst. He recommended obtaining a CTA of the abdomen pelvis and admission for observation. Case also discussed with hospitalist Dr. Burk who will evaluate patient for admission. CTA results pending and Case turned over to evening physician awaiting CTA results and admission.] Other additions or changes: [None] Lab Data Attestation: I reviewed the patient's lab results. Labs: Laboratory Results - last 24 hr 05/28/24 21:18 WBC 13.3 H RBC 4.41 Hgb 11.7 L Hct 37.1 MCV 84.1 MCH 26.5 L MCHC 31.5 L RDW Std Deviation 51.4 H RDW Coeff of Alfie 16.7 H Plt Count 371 MPV 10.1 Immature Gran % (Auto) 0.300 Neut % (Auto) 79.0 H Lymph % (Auto) 13.1 L Reynolds % (Auto) 6.0 Eos % (Auto) 1.3 Baso % (Auto) 0.3 Absolute Neuts (auto) 10.5 H Absolute Lymphs (auto) 1.73 Nucleated RBC % 0 Sodium 139 Potassium 3.3 L Chloride 106 Carbon Dioxide 26.0 Anion Gap 7 BUN 14 Creatinine 0.79 Estim Creat Clear Calc 69.78 Est GFR (MDRD) Af Amer 93 Est GFR (MDRD) Non-Af 77 BUN/Creatinine Ratio 17.7 Glucose 96 Calcium 9.4 Discharge Plan Dx/Rx/DC Orders Clinical Impression: Upper GI bleed, Blood in stool, Orthostatic hypotension Disposition Disposition: Acute Care Hospital [facility]
[2024-05-28 21:29] VITALS: BP 129/81; BP 136/81; BP 145/94; PULSE 116; PULSE 125; PULSE 126
[2024-05-28 21:29] LABS: Absolute Lymphocyte Count 1.73 X10^3/uL (0.83-4.51); Absolute Neutrophil Count 10.5 X10^3/uL (2.0-7.7); Basophil# 0.04 X10^3/uL; Basophil% 0.3 % (0-1); Eosinophil# 0.17 X10^3/uL; Eosinophils% 1.3 % (0-5); Hematocrit 37.1 % (37-47); Hemoglobin 11.7 g/dL (12.0-15.0); Lymphocyte # 1.73 X10^3/ul (0.83-4.51); Lymphocyte % 13.1 % (19-41); Mean Corp Hgb Conc 31.5 g/dL (32-36); Mean Corpuscular Hgb 26.5 pg (27.0-32.0); Mean Corpuscular Volume 84.1 fL (81-99); Mean Platelet Vol. 10.1 fl (6.2-12.0); Monocyte# 0.79 X10^3/uL; NRBC Flagged by Analyzer 0 % (0-5); Neutrophil # 10.48 X10^3/uL (2.7-7.7); Platelet Count 371 K/mm3 (150-450); RBC Distribution Width CV 16.7 % (11.6-14.6); RBC Distribution Width SD 51.4 fl (35.1-43.9); Red Blood Count 4.41 M/mm3 (4.2-5.4); White Blood Count 13.3 K/mm3 (4.4-11.0)
[2024-05-28 21:45] LABS: Anion Gap 7 (5-15); BUN 14 mg/dL (7-18); BUN/Creat Ratio 17.7 RATIO (10-20); Calcium,Total 9.4 mg/dL (8.5-10.1); Chloride 106 mmol/L (98-107); Creatinine, Serum 0.79 mg/dL (0.55-1.02); EST Glomerular Filtration Rate 77 mL/min (>60); Est Glom Filt Rate - Afr Amer 93 mL/min (>60); Estimated Creatinine Clearance 69.78 ml/min; Glucose 96 mg/dL (74-106); Potassium 3.3 mmol/L (3.5-5.1); Sodium Level 139 mmol/L (136-145)
--- NOTE | 2024-05-28 22:45 | CT_ITS ---
INDICATION: GI BLEED HX OF SAME EXAMINATION: CTA Abdomen and Pelvis With Contrast Injection TECHNIQUE: Helically acquired images were obtained of the abdomen and pelvis with sagittal and coronal reconstructed images. All images were obtained following the administration of IV contrast. Individualized dose optimization techniques were used for this CT. IV contrast dosage and agent: 100 mL of Isovue-[id number]. Oral contrast: None. COMPARISON: 04/05/2024 CT. FINDINGS: VESSELS: No abdominal aortic aneurysm or dissection. LIVER: No evidence of a mass. No intrahepatic or extrahepatic biliary duct dilation. GALLBLADDER: No calcified stones. No evidence of cholecystitis. PANCREAS: No focal solid or cystic mass. No evidence of pancreatitis. SPLEEN: Normal. ADRENAL GLANDS: Normal. KIDNEYS AND URETERS: No urinary tract stone. No hydronephrosis or hydroureter. No significant asymmetric perinephric stranding. URINARY BLADDER: Unremarkable. BOWEL: No evidence of diverticulosis or diverticulitis. Appendix not identified. No evidence of bowel obstruction. REPRODUCTIVE ORGANS: No evidence of a pelvic mass. PERITONEUM: No intraabdominal free fluid or free air. LYMPH NODES: No pathologically enlarged mesenteric or retroperitoneal lymph nodes. ABDOMINAL WALL: No abdominal or pelvic wall hernia. BONES: No acute abnormality. LOWER CHEST: Visualized lung bases are unremarkable. CT/CTA Abd/Pelvis W/WO Contrast IMPRESSION: 1. No acute abnormality. 2. No evidence of a gastrointestinal bleed. Electronically Signed: Manolo Mcdonald DO at 23:48 EDT ,
[2024-05-28] MEDS: 0.9% Normal Saline (500mL Bag) 500 ML 999 ML IV (22:50)
--- NOTE | 2024-05-28 23:08 | PCM.HP.STD ---
HPI - General General Date of Admission: 05/29/24 Date of Service: 05/28/24 Chief Complaint: Dark black stools x 3 HPI Narrative The patient is a 68 y/o F w/ PMHx: PAOD/PVD, Tobacco use, Chronic anemia/Fe deficiency anemia, Hx GI bleed w/ AVMs, recent 05/22/24-05/26/24 admission secondary to acute upper GI bleed secondary to bleeding gastric ulcers with visible vessel with EGD 05/22/24 with injection and treatment with heater probe with also noted nonbleeding esophageal varices placed on PPI and octreotide drip as well as sucralfate at that time with hemoglobin dropping to 6.4 with transfusion of 3 unit PRBC with hemoglobin upon discharge stable at 9.2 with associated hemorrhagic shock however no pressors were required and resolved who now represents to the [facility] ED on 05/28/24 with history of 3 separate episodes of black stools on day of presentation in the evening with no abdominal pain, dyspnea or chest discomfort but given appearance and concern with recent admission prompted ED evaluation. Workup in the ED included T99.1, heart rate 119, BP 153/99, respiratory rate 18, 100% on room air, CBC with WC 13.3, hemoglobin 11.7, MCV 84.1, platelet 371 with left shift, BMP with potassium 3.3, stool guaiac positive, CTA abdomen and pelvis with no acute abnormality no evidence of any identifiable GI bleed. ED did discuss case with lamp tester and inspector Dr. Kincaid who requested the CT abdomen and pelvis and also recommended admission for observation to assure hemoglobin remained stable. [facility] Medical History Anticoagulant long-term use Transfusion of blood during current hospitalisation AVM (arteriovenous malformation) Colitis Antiplatelet or antithrombotic long-term use Iron (Fe) deficiency anemia Atherosclerosis of [place] arteries of extremities with gangrene, left leg Carotid stenosis, bilateral Tobacco abuse Peripheral arterial occlusive disease Cervical cancer PVD (peripheral vascular disease) Arthritis Home Medications ?Medication ?Instructions ?Recorded ?Last Taken ?Type acetaminophen 650 mg 650 mg PO Q6H PRN Pain 06/25/18 05/21/24 History tablet,extended release (Tylenol Arthritis Pain) albuterol sulfate 90 mcg/actuation 2 puff inhalation Q6H PRN 01/08/24 Unknown History aerosol inhaler shortness of breath or wheezing amlodipine 5 mg tablet 5 mg PO DAILY blood pressure 01/08/24 05/21/24 History budesonide-formoterol HFA 160 2 puff inhalation BID breathing 01/08/24 05/21/24 History mcg-4.5 mcg/actuation aerosol inhaler rosuvastatin 10 mg tablet 10 mg PO DAILY cholesterol 01/08/24 05/21/24 History rivaroxaban 2.5 mg tablet (Xarelto) 2.5 mg PO BID blood thinner #60 01/22/24 05/21/24 Rx tabs cholecalciferol (vitamin D3) 1,250 1,250 mcg PO TH vitamin 05/03/24 05/19/24 History mcg (50,000 unit) capsule oxymetazoline 0.05 % nasal spray 2 spray intranasal BID PRN nasal 05/18/24 Unknown History (12 Hour Nasal Relief Manti) congestion pantoprazole 40 mg tablet,delayed 40 mg PO BID 30 days #60 tabs 05/20/24 05/21/24 Rx release (Protonix) sucralfate 1 gram tablet (Carafate) 1 g PO Q6H 30 days #120 tabs 05/20/24 05/21/24 Rx Allergy/AdvReac Type Severity Reaction Status Date / Time No Known Allergies Allergy Verified 05/28/24 20:51 Family History Mother Breast cancer other (Patient does not know her paternal family history.) Surgical History S/P femoral-femoral bypass surgery S/P LEFT ARTERIOGRAM Social History household members: none Smoking Status: Current some day smoker tobacco type: cigarettes alcohol intake: never substance use type: does not use ROS ROS Narrative Admission Review of Systems: CONSTITUTIONAL: No weight loss, fever, chills, + weakness or fatigue. HEENT: Eyes: No visual loss, blurred vision, double vision or yellow sclerae. Ears, Nose, Throat: No hearing loss, sneezing, congestion, runny nose or sore throat. SKIN: No rash or itching, lesions, wounds. CARDIOVASCULAR: No chest pain, chest pressure or chest discomfort, palpitations, edema, orthopnea, syncopal events. RESPIRATORY: No shortness of breath, cough or sputum, wheezing, hemoptysis. GASTROINTESTINAL: + Recurrent dark black stools/melanotic stools x 3. No anorexia, nausea, vomiting or diarrhea, abdominal pain, BRBPR. GENITOURINARY: No dysuria, frequency, urgency or retention. NEUROLOGICAL: No headache, dizziness, syncope, paralysis, ataxia, numbness or tingling in the extremities, focal weakness, change in bowel or bladder control, seizure. MUSCULOSKELETAL: No muscle, back pain, joint pain or stiffness. HEMATOLOGIC: + Chronic anemia, easy bruising, bleeding as noted above. LYMPHATICS: No enlarged nodes. No history of splenectomy. PSYCHIATRIC: No history of depression or anxiety. ENDOCRINOLOGIC: No reports of sweating, cold or heat intolerance. No polyuria or polydipsia. ALLERGIES: No history of asthma, hives, eczema or rhinitis. Vital Signs Vital Signs Vital Signs: 05/28/24 20:51 05/28/24 20:52 05/28/24 21:29 Temperature 99.1 F 97.4 F L Temperature Source Oral Temporal Pulse Rate 119 H 123 H Pulse Rate [Lying] 116 H Pulse Rate [Sitting (for 1 minute prior to obtaining)] 125 H Pulse Rate [Standing (for 1 minute prior to obtaining)] 126 H Respiratory Rate 18 18 Blood Pressure 153/99 H 171/97 H Blood Pressure [Lying] 136/81 H Blood Pressure [Sitting (for 1 minute prior to obtaining)] 145/94 H Blood Pressure [Standing (for 1 minute prior to obtaining)] 129/81 H Blood Pressure Mean 117 121 Blood Pressure Mean [Lying] 99 Blood Pressure Mean [Sitting (for 1 minute prior to obtaining)] 111 Blood Pressure Mean [Standing (for 1 minute prior to obtaining)] 97 Pulse Ox 100 99 Oxygen Delivery Method Room Air Room Air Weight Weight: 143 lb 14.4 oz Body Mass Index (BMI) 21.9 Physical Exam Narrative Physical Examination: General: Awake, alert, oriented x 3 and cooperative, seated upright in ED bed, mildly fatigued appearing. Skin: Normal color, normal turgor, no icterus, no cyanosis except occasional staged ecchymoses, likely from recent rhabdomyolysis with recent admission. HEENT: AT/NC, EOMI, PERRLA, mildly dry MM, no carotid bruits or JVD noted. Lungs: Mildly diminished, greater bases, appropriate effort,, no rales, ronchi or wheezing. Heart: Mildly tachycardic with regular rhythm; no gallop, rub audible. Abdomen: Soft, NTTP, ND, mildly hyperactive BS, no appreciated HSM. Extremities: No cyanosis, no clubbing, chronic left lower extremity pedal to mid waller edema unchanged. Neurological: Patient awake, alert, oriented as noted, cognitive function intact; pupils equally reactive to light and accommodation, cranial nerves grossly normal, moving all 4 extremities, no focal deficits, strength mildly to moderately globally decreased secondary to acute presentation complaints Psychiatric: Affect appears fatigued otherwise normal, no acute evidence of depressive or anxiety feelings. Results Lab / Micro Data 05/28/24 21:18 05/28/24 21:18 Labs: Laboratory Results - last 24 hr 05/28/24 21:18: WBC 13.3 H, RBC 4.41, Hgb 11.7 L, Hct 37.1, MCV 84.1, MCH 26.5 L, MCHC 31.5 L, RDW Std Deviation 51.4 H, RDW Coeff of Alfie 16.7 H, Plt Count 371, MPV 10.1, Immature Gran % (Auto) 0.300, Neut % (Auto) 79.0 H, Lymph % (Auto) 13.1 L, [place] % (Auto) 6.0, Eos % (Auto) 1.3, Baso % (Auto) 0.3, Absolute Neuts (auto) 10.5 H, Absolute Lymphs (auto) 1.73, Nucleated RBC % 0, Sodium 139, Potassium 3.3 L, Chloride 106, Carbon Dioxide 26.0, Anion Gap 7, BUN 14, Creatinine 0.79, Estim Creat Clear Calc 69.78, Est GFR (MDRD) Af Amer 93, Est GFR (MDRD) Non-Af 77, BUN/Creatinine Ratio 17.7, Glucose 96, Calcium 9.4 Micro: Microbiology 05/28/24 21:08 Stool Stool Occult Blood (MARTHA) - Final Occult Blood Positive Assessment & Plan Assessment/Plan (1) Orthostatic hypotension: (2) Upper GI bleed: PLAN: Plan The patient is a 68 y/o F w/ PMHx: PAOD/PVD, Tobacco use, Chronic anemia/Fe deficiency anemia, Hx GI bleed w/ AVMs, recent 05/22/24-05/26/24 admission secondary to acute upper GI bleed secondary to bleeding gastric ulcers with visible vessel with EGD 05/22/24 with injection and treatment with heater probe with also noted nonbleeding esophageal varices placed on PPI and octreotide drip as well as sucralfate at that time with hemoglobin dropping to 6.4 with transfusion of 3 unit PRBC with hemoglobin upon discharge stable at 9.2 with associated hemorrhagic shock however no pressors were required and resolved who now represents to the [facility] ED on 05/28/24 with history of 3 separate episodes of black stools on day of presentation. #1. Recurrent dark black stools with recent upper GI bleed secondary to bleeding gastric ulcers with also known AVMs with notable orthostasis although not markedly symptomatic w/ upon admission stable chronic anemia/Fe deficiency anemia: Fortunately CTA abdomen pelvis without any acute finding, recent EGD 05/22/24 with injection and treatment with heater probe with also noted nonbleeding esophageal varices. Will admit to PCU given significant orthostasis and recent history with significant drop in hemoglobin to be cautious, will continue GI consultation, will allow clears, will transition to IV PPI, will continue patient home sucralfate regimen, maintain on fall precautions, repeat orthostatic vital signs following overnight hydration in AM. #2. PAOD/PVD: Status post previous arteriogram as well as femoral-femoral bypass, given recent bleed Xarelto was held and Plavix per discussions with vascular surgery Dr. Frost was discontinued with noted plan at discharge to hold for an additional 2 days but given current presentation will continue to hold, given significant orthostasis will temporally hold hypertensive regimen, hydrate and resume once clinically appropriate, continue statin therapy. #3. Hypertension: Given orthostasis will temporally hold amlodipine, resume once appropriate, as needed IV hydralazine #4. Hyperlipidemia: We will continue patient home statin therapy. #5. Tobacco Abuse: Encouraged cessation, inpatient consultation per RT, NR if desired. #6. DVT prophylaxis: SCDs. Charges/Coding Visit Charges Inpatient E&M: 13025 Init Hosp L3
[2024-05-28 23:10] VITALS: BP 145/62; PULSE 95; RESP 18; O2SAT 97
[2024-05-28 23:37] LABS: Magnesium 1.3 mg/dL (1.6-2.6)
[2024-05-28 23:47] VITALS: BP 161/87; PULSE 93; RESP 18; TEMP 36.9; O2SAT 94
[2024-05-29] VITALS (12 sets, daily range): BP systolic 109–140; BP diastolic 67–78; PULSE 86–109; RESP 16–17; TEMP 36.6–37.2; O2SAT 96–98; BMI 22.2; BMI 22.1
[2024-05-29] MEDS: 0.9% Normal Saline (1000mL) 1,000 ML 999 ML IV (01:12)
[2024-05-29] MEDS: Pantoprazole Sodium 40 MG in 0.9% Normal Saline (100mL MB+) 100 ML 330 MG IV ×3 (01:30→21:36)
[2024-05-29] MEDS: Potassium Chloride Oral Tablet 20 MEQ 40 MEQ PO (01:33)
[2024-05-29] MEDS: 0.9% Normal Saline (1000mL) 1,000 ML 100 ML IV (02:32)
[2024-05-29] MEDS: Sucralfate 1 GM Tablet PO ×4 (06:15→21:36)
[2024-05-29 06:34] LABS: Absolute Lymphocyte Count 1.47 X10^3/uL (0.83-4.51); Absolute Neutrophil Count 8.1 X10^3/uL (2.0-7.7); Basophil# 0.05 X10^3/uL; Basophil% 0.5 % (0-1); Eosinophil# 0.16 X10^3/uL; Eosinophils% 1.5 % (0-5); Hematocrit 30.1 % (37-47); Hemoglobin 9.5 g/dL (12.0-15.0); Lymphocyte # 1.47 X10^3/ul (0.83-4.51); Lymphocyte % 14.1 % (19-41); Mean Corp Hgb Conc 31.6 g/dL (32-36); Mean Corpuscular Hgb 26.8 pg (27.0-32.0); Mean Corpuscular Volume 84.8 fL (81-99); Mean Platelet Vol. 10.1 fl (6.2-12.0); Monocyte# 0.68 X10^3/uL; Monocyte% 6.5 % (0-10); NRBC Flagged by Analyzer 0 % (0-5); Neutrophil # 8.07 X10^3/uL (2.7-7.7); Neutrophil % 77.1 % (47-70); Platelet Count 303 K/mm3 (150-450); RBC Distribution Width CV 16.9 % (11.6-14.6); RBC Distribution Width SD 52.7 fl (35.1-43.9); Red Blood Count 3.55 M/mm3 (4.2-5.4); White Blood Count 10.5 K/mm3 (4.4-11.0)
[2024-05-29 07:00] LABS: ALB/GLOB Ratio 0.9 RATIO (0.9-2.4); AST(SGOT) 8 U/L (15-37); Alanine Aminotransfer ALT/SGPT 13 U/L (13-56); Albumin, Serum 2.5 g/dL (3.2-5.0); Alkaline Phosphatase 50 U/L (45-117); Anion Gap 6 (5-15); BUN 9 mg/dL (7-18); BUN/Creat Ratio 17.6 RATIO (10-20); Calcium,Total 8.1 mg/dL (8.5-10.1); Chloride 109 mmol/L (98-107); Creatinine, Serum 0.51 mg/dL (0.55-1.02); EST Glomerular Filtration Rate 127 mL/min (>60); Est Glom Filt Rate - Afr Amer 154 mL/min (>60); Estimated Creatinine Clearance 69.78 ml/min; Globulin 2.9 g/dL (2.2-4.2); Glucose 85 mg/dL (74-106); Protein, Total 5.4 g/dL (6.4-8.2); Sodium Level 139 mmol/L (136-145)
--- NOTE | 2024-05-29 08:05 | PN.HOSP_ITS ---
Reason for Visit Reason for Visit: Diagnoses Orthostatic hypotension (05/28/24) Gastrointestinal hemorrhage, unspecified (05/28/24) Subjective Subjective Had been doing well when she went home but then started having black stool again. Since being here his lightened up. Denies any abdominal pain. Objective Data Objective Data Vital Signs: Vital Signs Temp Pulse Resp BP Pulse Ox O2 Del Method 37.1 C 89 17 109/67 97 Room Air 05/29/24 00:51 05/29/24 07:49 05/29/24 07:49 05/29/24 06:03 05/29/24 07:49 05/29/24 07:49 Oxygen Delivery Method Room Air Weight: 66.224 kg Body Mass Index (BMI) 22.1 Intake & Output: Intake and Output for Last 24 Hours 05/27/24 05/28/24 05/29/24 23:59 23:59 23:59 Intake Total 1850 / 1850 Balance 1850 / 1850 Lab / Micro Data 05/29/24 05:52 05/29/24 05:52 Labs: Laboratory Results - last 24 hr 05/28/24 21:18: WBC 13.3 H, RBC 4.41, Hgb 11.7 L, Hct 37.1, MCV 84.1, MCH 26.5 L , MCHC 31.5 L, RDW Std Deviation 51.4 H, RDW Coeff of Alfie 16.7 H, Plt Count 371, MPV 10.1, Immature Gran % (Auto) 0.300, Neut % (Auto) 79.0 H, Lymph % (Auto) 13.1 L, [place] % (Auto) 6.0, Eos % (Auto) 1.3, Baso % (Auto) 0.3, Absolute Neuts (auto) 10.5 H, Absolute Lymphs (auto) 1.73, Nucleated RBC % 0, Sodium 139, P otassium 3.3 L, Chloride 106, Carbon Dioxide 26.0, Anion Gap 7, BUN 14, Creatinine 0.79, Estim Creat Clear Calc 69.78, Est GFR (MDRD) Af Amer 93, Est GFR (MDRD) Non-Af 77, BUN/Creatinine Ratio 17.7, Glucose 96, Calcium 9.4, M agnesium 1.3 L 05/29/24 05:52: WBC 10.5, RBC 3.55 L, Hgb 9.5 L, Hct 30.1 L, MCV 84.8, MCH 26.8 L, MCHC 31.6 L, RDW Std Deviation 52.7 H, RDW Coeff of Alfie 16.9 H, Plt Count 303, MPV 10.1, Immature Gran % (Auto) 0.300, Neut % (Auto) 77.1 H, Lymph % (Auto) 14.1 L, [place] % (Auto) 6.5, Eos % (Auto) 1.5, Baso % (Auto) 0.5, Absolute Neuts (auto) 8.1 H, Absolute Lymphs (auto) 1.47, Nucleated RBC % 0, Sodium 139, Potassium 3.0 L, Chloride 109 H, Carbon Dioxide 24.0, Anion Gap 6, BUN 9, C reatinine 0.51 L, Estim Creat Clear Calc 69.78, Est GFR (MDRD) Af Amer 154, Est GFR (MDRD) Non-Af 127, BUN/Creatinine Ratio 17.6, Glucose 85, Calcium 8.1 L, Total Bilirubin 0.30, AST 8 L, ALT 13, Alkaline Phosphatase 50, Total Protein 5.4 L, Albumin 2.5 L, Globulin 2.9, Albumin/Globulin Ratio 0.9 Micro: Microbiology 05/28/24 21:08 Stool Stool Occult Blood (MARTHA) - Final Occult Blood Positive Radiography Diagnostic Testing: Radiology Impression Abdomen/Pelvis CTA 05/28/24 22:45 IMPRESSION: 1. No acute abnormality. 2. No evidence of a gastrointestinal bleed. Electronically Signed: Manolo Mcdonald DO at 23:48 EDT , Physical Exam Const Constitutional Narrative: Up in bed. Nontoxic. Afebrile. Alert and appropriate. Resp normal respiratory effort, no retractions, no use of accessory muscles and clear to auscultation bilaterally Cardio regular rate, regular rhythm, S1 normal heart sound and S2 normal heart sound GI normal to inspection, nondistended, normoactive bowel sounds, soft to palpation, non-tender and non-distended Extremity normal to inspection and full ROM Neuro Sensorium / Orientation: awake Assessment & Plan Assessment/Plan (1) Orthostatic hypotension: (2) Upper GI bleed: PLAN: Plan Melena * Patient did have medication melena during her admission but her stools did improve during the most recent admission (from 05/22-05/26). Patient was noted to have bleeding gastric ulcer with visible vessel that was injected and treated with heater probe. Patient was on 72 hours of a Protonix drip during that admission. Patient was to continue with PPI and sucralfate * Hemoglobin is down from 11.7 down to 9.5, however, patient was discharged with a hemoglobin of 10.1 on the . Her labs been quite variable but seems like her normal hemoglobin is in the 9 range. Recheck hemoglobin in the morning unless patient has further melena. * CTA of the abdomen pelvis showed no acute process. * GI consult pending * Medications: Pantoprazole drip as well as sucralfate. Clear liquid diet. Chronic conditions * PAD: Per discussion not had with Dr. Frost on the , plan was to resume rivaroxaban on the 2.5 mg twice daily. It was recommended if she does have recurrent bleeding then to discontinue all her anticoagulation. Previously, patient had been on rivaroxaban and clopidogrel. Clopidogrel was going to be stopped after last admission. * Hypertension: Given orthostasis will temporally hold amlodipine, resume once appropriate, as needed IV hydralazine * Hyperlipidemia: We will continue patient home statin therapy. * Tobacco Abuse: Encouraged cessation, inpatient consultation per RT, NR if desired. DVT prophylaxis: SCDs. Charges/Coding Visit Charges Inpatient E&M: 85062 Subs Hosp L2
[2024-05-29] MEDS: Atorvastatin Calcium 20 MG Tablet PO (21:36)
[2024-05-30 04:20] VITALS: BP 132/73; PULSE 82; RESP 14; TEMP 36.7; O2SAT 96
[2024-05-30 04:42] VITALS: BMI 22.5
[2024-05-30 05:50] LABS: Absolute Lymphocyte Count 0.94 X10^3/uL (0.83-4.51); Absolute Neutrophil Count 8.6 X10^3/uL (2.0-7.7); Basophil# 0.06 X10^3/uL; Basophil% 0.6 % (0-1); Eosinophil# 0.19 X10^3/uL; Eosinophils% 1.8 % (0-5); Hematocrit 31.5 % (37-47); Hemoglobin 9.7 g/dL (12.0-15.0); Lymphocyte # 0.94 X10^3/ul (0.83-4.51); Lymphocyte % 8.9 % (19-41); Mean Corp Hgb Conc 30.8 g/dL (32-36); Mean Corpuscular Hgb 26.1 pg (27.0-32.0); Mean Corpuscular Volume 84.9 fL (81-99); Mean Platelet Vol. 10.3 fl (6.2-12.0); Monocyte# 0.68 X10^3/uL; Monocyte% 6.5 % (0-10); NRBC Flagged by Analyzer 0 % (0-5); Neutrophil # 8.63 X10^3/uL (2.7-7.7); Neutrophil % 81.9 % (47-70); Platelet Count 286 K/mm3 (150-450); RBC Distribution Width CV 16.6 % (11.6-14.6); RBC Distribution Width SD 51.9 fl (35.1-43.9); Red Blood Count 3.71 M/mm3 (4.2-5.4); White Blood Count 10.5 K/mm3 (4.4-11.0)
[2024-05-30 06:35] LABS: Anion Gap 7 (5-15); BUN 5 mg/dL (7-18); Calcium,Total 8.5 mg/dL (8.5-10.1); Chloride 108 mmol/L (98-107); Creatinine, Serum 0.45 mg/dL (0.55-1.02); EST Glomerular Filtration Rate 146 mL/min (>60); Est Glom Filt Rate - Afr Amer 177 mL/min (>60); Estimated Creatinine Clearance 69.78 ml/min; Glucose 77 mg/dL (74-106); Potassium 2.8 mmol/L (3.5-5.1); Sodium Level 140 mmol/L (136-145)
[2024-05-30] MEDS: Sucralfate 1 GM Tablet PO ×2 (06:38→11:30)
[2024-05-30 07:00] VITALS: O2SAT 96
--- NOTE | 2024-05-30 07:57 | PN.HOSP_ITS ---
Reason for Visit Reason for Visit: Diagnoses Orthostatic hypotension (05/28/24) Gastrointestinal hemorrhage, unspecified (05/28/24) Subjective Subjective Feeling well. No further melena. Stool has been scant but been brown. Objective Data Objective Data Vital Signs: Vital Signs Temp Pulse Resp BP Pulse Ox O2 Del Method 36.7 C 82 14 132/73 H 96 Room Air 05/30/24 04:20 05/30/24 04:20 05/30/24 04:20 05/30/24 04:20 05/30/24 07:00 05/30/24 07:00 Oxygen Delivery Method Room Air Weight: 67.2 kg Body Mass Index (BMI) 22.5 Intake & Output: Intake and Output for Last 24 Hours 05/28/24 05/29/24 05/30/24 23:59 23:59 23:59 Intake Total 3400 / 3400 230 / 230 Balance 3400 / 3400 230 / 230 Lab / Micro Data 05/30/24 05:39 05/30/24 05:39 Labs: Laboratory Results - last 24 hr 05/30/24 05:39: WBC 10.5, RBC 3.71 L, Hgb 9.7 L, Hct 31.5 L, MCV 84.9, MCH 26.1 L, MCHC 30.8 L, RDW Std Deviation 51.9 H, RDW Coeff of Alfie 16.6 H, Plt Count 286, MPV 10.3, Immature Gran % (Auto) 0.300, Neut % (Auto) 81.9 H, Lymph % (Auto) 8.9 L, [place] % (Auto) 6.5, Eos % (Auto) 1.8, Baso % (Auto) 0.6, Absolute Neuts (auto) 8.6 H, Absolute Lymphs (auto) 0.94, Nucleated RBC % 0, Sodium 140, Potassium 2.8 L, Chloride 108 H, Carbon Dioxide 25.0, Anion Gap 7, BUN 5 L, C reatinine 0.45 L, Estim Creat Clear Calc 69.78, Est GFR (MDRD) Af Amer 177, Est GFR (MDRD) Non-Af 146, BUN/Creatinine Ratio 11.0, Glucose 77, Calcium 8.5 Micro: Microbiology 05/28/24 21:08 Stool Stool Occult Blood (MARTHA) - Final Occult Blood Positive Physical Exam Const alert and no apparent distress HEENT moist oral mucous membranes Resp normal respiratory effort, no retractions, no use of accessory muscles and clear to auscultation bilaterally Cardio regular rate, regular rhythm, S1 normal heart sound and S2 normal heart sound GI normal to inspection, nondistended, normoactive bowel sounds, soft to palpation, non-tender and non-distended Assessment & Plan Assessment/Plan (1) Orthostatic hypotension: (2) Upper GI bleed: PLAN: Plan Melena * Patient did have medication melena during her admission but her stools did improve during the most recent admission (from 05/22-05/26). Patient was noted to have bleeding gastric ulcer with visible vessel that was injected and treated with heater probe. Patient was on 72 hours of a Protonix drip during that admission. Patient was to continue with PPI and sucralfate * Hemoglobin is down from 11.7 down to 9.5, however, patient was discharged with a hemoglobin of 10.1 on the . Her labs been quite variable but seems like her normal hemoglobin is in the 9 range. Recheck hemoglobin in the morning unless patient has further melena. * CTA of the abdomen pelvis showed no acute process. * GI consult pending * Medications: Pantoprazole as well as sucralfate. * No further bleeding. May have been residual blood that was yet to be evacuated from her colon. Discussed with Dr. Friend. Adames for discharge. Patient had yet to start her Xarelto for PAD. Advised patient that she may resume that starting tomorrow. Chronic conditions * PAD: Per discussion not had with Dr. Frost on the , plan was to resume rivaroxaban on the 2.5 mg twice daily. It was recommended if she does have recurrent bleeding then to discontinue all her anticoagulation. Previously, patient had been on rivaroxaban and clopidogrel. Clopidogrel was going to be stopped after last admission. * Hypertension: Given orthostasis will temporally hold amlodipine, resume once appropriate, as needed IV hydralazine * Hyperlipidemia: We will continue patient home statin therapy. * Tobacco Abuse: Encouraged cessation, inpatient consultation per RT, NR if desired. DVT prophylaxis: SCDs.
[2024-05-30 08:12] LABS: Magnesium 1.3 mg/dL (1.6-2.6)
[2024-05-30] MEDS: Potassium Chloride Oral Tablet 20 MEQ 60 MEQ PO (08:46)
[2024-05-30] MEDS: Pantoprazole Sodium 40 MG in 0.9% Normal Saline (100mL MB+) 100 ML 330 MG IV (08:46)
[2024-05-30 10:20] VITALS: BP 108/65; PULSE 90; RESP 15; TEMP 36.6; O2SAT 98
--- NOTE | 2024-05-30 11:05 | CASEMGMT ---
Met with patient to complete HENDRIX form. HENDRIX form explained to patient who voiced understanding and signed form. Original form placed in pt?s chart and copy provided to patient. Chantal Leon, Discharge Planning Asst
--- NOTE | 2024-05-30 11:39 | DS.PCM_ITS ---
Providers Date of Admission: 05/28/24 Primary Care Physician: Vincent Ashley, RUSTAM-C Consultations 05/29/24 00:47 Consult: Gastroenterology Routine Consulting Provider: [facility] Reason for Consult: GI bleed recently, episode dark stools x 3 EMERGENT Consult: No MD Notified: Yes Date Notified: 05/28/24 Time Notified: 23:19 Method of Notification: ED Physician Initiated Reason For Visit: GI BLEED, ORTHOSTATIC Diagnosis Discharge Diagnosis (1) Orthostatic hypotension: Status: Acute Code(s): I95.1 - Orthostatic hypotension (2) Upper GI bleed: Status: Acute Code(s): K92.2 - Gastrointestinal hemorrhage, unspecified Plan Melena * Patient did have medication melena during her admission but her stools did improve during the most recent admission (from 05/22-05/26). Patient was noted to have bleeding gastric ulcer with visible vessel that was injected and treated with heater probe. Patient was on 72 hours of a Protonix drip during that admission. Patient was to continue with PPI and sucralfate * Hemoglobin is down from 11.7 down to 9.5, however, patient was discharged with a hemoglobin of 10.1 on the . Her labs been quite variable but seems like her normal hemoglobin is in the 9 range. Recheck hemoglobin in the morning unless patient has further melena. * CTA of the abdomen pelvis showed no acute process. * GI consult pending * Medications: Pantoprazole as well as sucralfate. * No further bleeding. May have been residual blood that was yet to be evacuated from her colon. Discussed with Dr. Friend. Adames for discharge. Patient had yet to start her Xarelto for PAD. Advised patient that she may resume that starting tomorrow. Chronic conditions * PAD: Per discussion not had with Dr. Frost on the , plan was to resume rivaroxaban on the 2.5 mg twice daily. It was recommended if she does have recurrent bleeding then to discontinue all her anticoagulation. Previously, patient had been on rivaroxaban and clopidogrel. Clopidogrel was going to be stopped after last admission. * Hypertension: Given orthostasis will temporally hold amlodipine, resume once appropriate, as needed IV hydralazine * Hyperlipidemia: We will continue patient home statin therapy. * Tobacco Abuse: Encouraged cessation, inpatient consultation per RT, NR if desired. DVT prophylaxis: SCDs. Medications at Discharge Home Medications acetaminophen 650 mg tablet,extended release (Tylenol Arthritis Pain) 650 mg PO Q6H PRN Pain 06/25/18 albuterol sulfate 90 mcg/actuation aerosol inhaler 2 puff inhalation Q6H PRN shortness of breath or wheezing 01/08/24 amlodipine 5 mg tablet 5 mg PO DAILY blood pressure 01/08/24 budesonide-formoterol HFA 160 mcg-4.5 mcg/actuation aerosol inhaler 2 puff inhalation BID breathing 01/08/24 rosuvastatin 10 mg tablet 10 mg PO DAILY cholesterol 01/08/24 rivaroxaban 2.5 mg tablet (Xarelto) 2.5 mg PO BID blood thinner #60 tabs 01/22/24 cholecalciferol (vitamin D3) 1,250 mcg (50,000 unit) capsule 1,250 mcg PO TH vitamin 05/03/24 oxymetazoline 0.05 % nasal spray (12 Hour Nasal Relief [place]) 2 spray intranasal BID PRN nasal congestion 05/18/24 pantoprazole 40 mg tablet,delayed release (Protonix) 40 mg PO BID 30 days #60 tabs 05/20/24 sucralfate 1 gram tablet (Carafate) 1 g PO Q6H 30 days #120 tabs 05/20/24 Hospital Course Operations None Procedures None Summary of Care Provided Minutes Spent on Discharge: 32 Hospital Course: Patient presents with melena. It was only transient and had no further episodes. Hemoglobin initially dropped when she presented but that was likely the initial hemoglobin was higher than it had been previous so that was likely lab error. But hemoglobin remained stable. I think the melena that was noted was probably residual blood from her very severe GI bleed as she had had during the most recent admission. Patient has remained stable here. I discussed the case with Dr. Kincaid, gastroenterology, feels the patient would be okay for discharge. Patient does have PAD and I previously discussed with Dr. Frost and plan was for her to resume Xarelto 2.5 mg twice daily. Patient had not even started that when this happened. Patient advised to start her Xarelto on the . Weight / BMI Weight Weight: 67.2 kg Body Mass Index (BMI) 22.5 ABG / Lab / Microbiology Data 05/30/24 05:39 07/15/24 05:39 Laboratory: Laboratory Results - last 24 hr 05/30/24 05:39: WBC 10.5, RBC 3.71 L, Hgb 9.7 L, Hct 31.5 L, MCV 84.9, MCH 26.1 L, MCHC 30.8 L, RDW Std Deviation 51.9 H, RDW Coeff of Alfie 16.6 H, Plt Count 286, MPV 10.3, Immature Gran % (Auto) 0.300, Neut % (Auto) 81.9 H, Lymph % (Auto) 8.9 L, Ceiba % (Auto) 6.5, Eos % (Auto) 1.8, Baso % (Auto) 0.6, Absolute Neuts (auto) 8.6 H, Absolute Lymphs (auto) 0.94, Nucleated RBC % 0, Sodium 140, Potassium 2.8 L, Chloride 108 H, Carbon Dioxide 25.0, Anion Gap 7, BUN 5 L, C reatinine 0.45 L, Estim Creat Clear Calc 69.78, Est GFR (MDRD) Af Amer 177, Est GFR (MDRD) Non-Af 146, BUN/Creatinine Ratio 11.0, Glucose 77, Calcium 8.5, M agnesium 1.3 L Microbiology: Microbiology 05/28/24 21:08 Stool Stool Occult Blood (MARTHA) - Final Occult Blood Positive D/C Instructions Discharge Diet: 2000 Calorie Control Diet Meaningful Use Info Meaningful Use Meaningful Use Diagnoses (Choose all that apply): None applicable Ischemic Stroke Statin Dosing Therapy Reference: STATIN DOSE THERAPY REFERENCE: * Patients > 75 years receive moderate or high dose statin therapy. * Patients 75 years or YOUNGER should receive HIGH intensity statin dose unless contraindicated. You will be required to document reason for non-treatment if statin daily dose does not meet guidelines. HIGH DOSE STATIN THERAPY DAILY Atorvastatin > than or = to 40 mg Rosuvastatin > than or = to 20 mg Amlodipine + Atorvastatin > than or = to 2.5/40 mg Ezetimibe + Simvastatin 10/80 mg Simvastatin 80mg Discharge Plan Admission Admit Date/Time: 05/28/24 23:16 Primary Reason for Your Visit: GI bleed Attending Provider: Selvin Barrera Primary Care Provider: Vincent Ashley [employer] Consulting Providers: Ave Burk Instructions Additional Instructions / Restrictions: You had black stool that may have been old blood from your previous ulcer bleeding that finally came out. Your blood count here has been stable. Please follow-up with your physicians as follows. [facility] [Provider Group] - 07/05/24 10:00 am Selvin Frost MD [Med Staff - Active Staff] - 06/08/24 11:00 am Vincent Ashley NP, [employer]IST-C [Primary Care Provider] - Within 2 Weeks Discharge Orders/Prescriptions Prescriptions: Continued acetaminophen [Tylenol Arthritis Pain] 650 mg tablet extended release 650 mg PO Q6H PRN (Reason: Pain) amlodipine 5 mg tablet 5 mg PO DAILY rosuvastatin 10 mg tablet 10 mg PO DAILY albuterol sulfate 90 mcg/actuation HFA aerosol inhaler 2 puff INHALATION Q6H PRN (Reason: shortness of breath or wheezing) budesonide-formoterol 160-4.5 mcg/actuation HFA aerosol inhaler 2 puff INHALATION BID cholecalciferol (vitamin D3) 1,250 mcg (50,000 unit) capsule 1,250 mcg PO TH oxymetazoline [12 Hour Nasal Relief [place]] 0.05 % spray,non-aerosol 2 spray intranasal BID PRN (Reason: nasal congestion) pantoprazole [Protonix] 40 mg tablet,delayed release (DR/EC) 40 mg PO BID 30 Days Qty: 60 2RF sucralfate [Carafate] 1 gram tablet 1 g PO Q6H 30 Days Qty: 120 2RF Held Xarelto 2.5 mg tablet 2.5 mg PO BID Qty: 60 5RF Hold Instructions: Resume on 05/31/24. Referrals / Follow Up: Vincent Ashley NP, [employer]IST-C [Primary Care Provider] - Disposition Disposition (needs filled in before D/C Order can be placed): Home, Self Care Charges/Coding Visit Charges Inpatient E&M: 72196 Disch Hosp >30min
--- NOTE | 2024-05-30 12:00 | CASEMGMT ---
Discharge order noted, DALIA CM into pt room. Pt denies questions or concerns. Pt denies any home going needs at this time.
--- NOTE | 2024-05-30 12:10 | PHA.DC.MR.R ---
Pharmacy MA Med Reconciliation Pharmacy Service has performed discharge medication reconciliation for this patient. No new medications, medications reviewed. The patient's discharge medication list was reviewed for discrepancies and discrepancies were resolved. Medications at Discharge Home Medications acetaminophen 650 mg tablet,extended release (Tylenol Arthritis Pain) 650 mg PO Q6H PRN Pain 06/25/18 albuterol sulfate 90 mcg/actuation aerosol inhaler 2 puff inhalation Q6H PRN shortness of breath or wheezing 01/08/24 amlodipine 5 mg tablet 5 mg PO DAILY blood pressure 01/08/24 budesonide-formoterol HFA 160 mcg-4.5 mcg/actuation aerosol inhaler 2 puff inhalation BID breathing 01/08/24 rosuvastatin 10 mg tablet 10 mg PO DAILY cholesterol 01/08/24 rivaroxaban 2.5 mg tablet (Xarelto) 2.5 mg PO BID blood thinner #60 tabs 01/22/24 cholecalciferol (vitamin D3) 1,250 mcg (50,000 unit) capsule 1,250 mcg PO TH vitamin 05/03/24 oxymetazoline 0.05 % nasal spray (12 Hour Nasal Relief [place]) 2 spray intranasal BID PRN nasal congestion 05/18/24 pantoprazole 40 mg tablet,delayed release (Protonix) 40 mg PO BID GERD 30 days #60 tabs 05/20/24 sucralfate 1 gram tablet (Carafate) 1 g PO Q6H stomach 30 days #120 tabs 05/20/24
== END 2024-05-30 13:04 | disposition home or self-care (01) ==
LOC: ED 22:37 → PCU 05-29 00:13
PROVIDERS: Nurse Practitioner; Admitting Provider Family Medicine; Emergency Provider Emergency Medicine; PCP Nurse Practitioner Family
DX: K92.1 Melena (principal); I95.1 Orthostatic hypotension; I73.9 Peripheral vascular disease, unspecified; Z79.01 Long term (current) use of anticoagulants; Q27.30 Arteriovenous malformation, site unspecified; Z79.899 Other long term (current) drug therapy; F17.210 Nicotine dependence, cigarettes, uncomplicated
CPT/HCPCS: 36415; 74174; 80048; 80053; 82274; 83735; 85025; 96361; 96365; 96366; 99221; 99285; J7030; J7040; Q9967; A4216; G0378

== ENCOUNTER → 2024-06-10 | Outpatient (CLI) | payer MEDICARE, SELFPAY ==
[2024-06-10 11:46] LABS: Hematocrit 37.6 % (37-47); Hemoglobin 11.6 g/dL (12.0-15.0); Mean Corp Hgb Conc 30.9 g/dL (32-36); Mean Corpuscular Hgb 26.2 pg (27.0-32.0); Mean Corpuscular Volume 84.9 fL (81-99); Mean Platelet Vol. 9.7 fl (6.2-12.0); Platelet Count 405 K/mm3 (150-450); RBC Distribution Width CV 17.3 % (11.6-14.6); RBC Distribution Width SD 54.1 fl (35.1-43.9); Red Blood Count 4.43 M/mm3 (4.2-5.4); White Blood Count 13.2 K/mm3 (4.4-11.0)
[2024-06-10 11:59] LABS: ALB/GLOB Ratio 0.8 RATIO (0.9-2.4); AST(SGOT) 15 U/L (15-37); Alanine Aminotransfer ALT/SGPT 19 U/L (13-56); Albumin, Serum 2.7 g/dL (3.2-5.0); Alkaline Phosphatase 103 U/L (45-117); Anion Gap 2 (5-15); BUN 8 mg/dL (7-18); BUN/Creat Ratio 11.1 RATIO (10-20); Calcium,Total 8.9 mg/dL (8.5-10.1); Chloride 105 mmol/L (98-107); Creatinine, Serum 0.72 mg/dL (0.55-1.02); EST Glomerular Filtration Rate 86 mL/min (>60); Est Glom Filt Rate - Afr Amer 104 mL/min (>60); Globulin 3.5 g/dL (2.2-4.2); Glucose 94 mg/dL (74-106); Iron 27 ug/dL (50-170); Iron Binding Capacity,Total 330 ug/dL (250-450); PERCENT IRON SATURATION 8.2 % (15.0-55.0); Potassium 4.2 mmol/L (3.5-5.1); Protein, Total 6.2 g/dL (6.4-8.2); Sodium Level 138 mmol/L (136-145)
== END | disposition home or self-care (01) ==
LOC: LAB 11:13
PROVIDERS: PCP Nurse Practitioner Family; Referring Provider Nurse Practitioner Family; Visit Provider Nurse Practitioner Family
DX: N18.30 Chronic kidney disease, stage 3 unspecified (principal); D50.9 Iron deficiency anemia, unspecified; E87.6 Hypokalemia
CPT/HCPCS: 36415; 80053; 83540; 83550; 85027

== ENCOUNTER → 2024-08-09 | Outpatient (CLI) | payer MEDICARE, SELFPAY ==
--- NOTE | 2024-08-09 13:47 | ADUL_ITS ---
Reason For Study: s/p R to L Fem-Fem Bypass, Lt EIA stent Right Velocities Left Velocities Ext. Iliac Artery, dist = 179 cm./sec. Ext Iliac Artery, dist = 215 cm./sec. Common Femoral Artery, prox = 270 cm./sec. Common Femoral Artery, dist = 199 cm./sec. Common Femoral Artery, dist = 114 cm./sec. Supf. Femoral Artery, prox = 116 cm./sec. Rt to Lt Fem-Fem Bypass noted. Supf. Femoral Artery, mid = 96 cm./sec. Bypass is totally occluded Supf. Femoral Artery, dist = 92 cm./sec. Profunda Femoral Artery = 124 cm./sec. Prox Anastomosis: 35 cm/s Popliteal Artery, mid = 88 cm./sec. Prox Graft: 0 cm/s Post. Tibial Artery, prox = 54 cm./sec. Mid Graft: 0 cm/s Post Tibial Artery, mid = 41 cm./sec. Dist Graft: 0 cm/s Post Tibial Artery, dist. = 52 cm./sec. Dist Anastomosis: 45 cm/s. Peroneal Artery, prox = 66 cm./sec. Peroneal Artery, mid = 58 cm./sec. Peroneal Artery,dist. = 37 cm./sec. Ant.Tibial Artery, prox = 70 cm./sec. Ant Tibial Artery, mid = 66 cm./sec. Ant. Tibial Artery, distal = 75 cm./sec. /US Art Duplex Unilat Lower Ext Interpretation Summary Femoral-femoral bypass occluded. Arteries of the left lower extremity patent with normal velocities and no evide nce of stenosis. Ordering Physician: Katie Retana Referring Physician: Vincent Ashley Performed By: Rosenda Gomez, CHANDA, RVT
--- NOTE | 2024-08-09 13:47 | ART_ITS ---
Reason For Study: s/p Rt to Lt Fem-Fem Bypass, Lt EIA stent Procedure A bilateral lower extremity continuous wave Doppler with analog waveform analysis and ankle brachial indexes. Left Segmental Pressures Left brachial= 122mmHg. Left posterior tibial artery = 124mmHg. Left dorsalis pedis artery = 120mmHg. Left digit = 96 mmHg. Right Segmental Pressures Right brachial= 119mmHg. Right posterior tibial artery = 130mmHg. Right dorsalis pedis artery = 126mmHg. Right digit = 115 mmHg. Indices The right ankle brachial index by the posterior tibial artery is 1.07. The right ankle brachial index by the dorsalis pedis is 1.03. The right digital-brachial index is 0.94. The left ankle brachial index by the posterior tibial artery is 1.02. The left ankle brachial index by the dorsalis pedis is 0.98. The left digital-brachial index is 0.79. VL/Ankle Brachial Index Interpretation Summary Right ALEIDA 1.07, normal. TBI and Doppler/PVR waveforms of the right ankle normal at rest. Left ALEIDA 1.02, normal. TBI and Doppler/PVR waveforms of the left ankle normal a t rest. Ordering Physician: Katie Retana Referring Physician: Vincent Ashley Performed By: Rosenda Gomez RDCS/RVT
== END | disposition home or self-care (01) ==
LOC: CVS 13:46
PROVIDERS: PCP Nurse Practitioner Family; Referring Provider Physician Assistant; Visit Provider Physician Assistant
DX: Z48.812 Encounter for surgical aftercare following surgery on the circulatory system (principal); I77.9 Disorder of arteries and arterioles, unspecified; Z95.828 Presence of other vascular implants and grafts
CPT/HCPCS: 93922; 93926

== ENCOUNTER → 2024-08-16 | Outpatient (CLI) | payer MEDICARE, SELFPAY ==
--- NOTE | 2024-08-16 12:41 | CT_ITS ---
STUDY: LOW DOSE CT LUNG CANCER SCREENING REASON FOR EXAM: Female, 69 years old. Lung cancer screening -- and gt; 20 pk yr hx; current smoker; asymptomatic RADIATION DOSAGE (If Supplied By Facility): CTDIvol = ( 2.01 ) mGy, DLP = ( 59.92 ) mGycm TECHNIQUE: No contrast was administered. Low dose technique was utilized (average mAS-38 and kVp 120). 1.25 mm axial source images with a slice interval of 1.25-mm were reconstructed in lung windows. 2.5 mm axial source images with a slice interval of 2.5-mm were reconstructed in lung windows. 5.0 mm axial source images with a slice interval of 5.0-mm were reconstructed in soft tissue windows. COMPARISON: None. NODULES: No suspicious nodules are seen. Emphysema: Hyperinflation. There is evidence of emphysematous changes with centrilobular changes in the upper lobes. Endobronchial lesion: None Aorta: Atherosclerotic calcific plaques. CORONARY ARTERIES: Coronary artery calcification is not seen. Heart: Unremarkable Pulmonary artery: Unremarkable Mediastinal nodes: Unremarkable Other chest and abdominal findings: CT/Low Dose CT Lung Screening IMPRESSION: Lung-RADS category 2 - Continue annual screening with LDCT in 12 months. IMPORTANT NOTES FOR USE: ACR Lung-RADS Version 1.1 Assessment Categories Release Date: 2018 Category: Coded 0-4 bases on nodule(s) with highest degree of suspicion. Negative screen is defined as categories 1 and 2; a positive screen is defined as categories 3 and 4. Category 3 and 4A nodules that are unchanged on interval CT should be coded as category 2, and individuals returned to screening in 12 months. Category 4X: Category 3 or 4 nodules with additional imaging findings that increase the suspicion of lung cancer, such as spiculation, GGN that doubles in size in 1 year, enlarged lymph notes, etc. Category Modifiers: S (significant finding unrelated to lung cancer) Electronically Signed: Kenan Garvey MD at 13:33 EDT ,
== END | disposition home or self-care (01) ==
LOC: CT 12:41
PROVIDERS: PCP Nurse Practitioner Family; Referring Provider Nurse Practitioner Family; Visit Provider Nurse Practitioner Family
DX: Z12.2 Encounter for screening for malignant neoplasm of respiratory organs (principal); Z87.891 Personal history of nicotine dependence
CPT/HCPCS: 71271

== ENCOUNTER 2024-09-12 07:28 | Day surgery (SDC) | payer MEDICARE, SELFPAY ==
[2024-09-12] VITALS (7 sets, daily range): BP systolic 109–142; BP diastolic 60–99; PULSE 96–104; RESP 16–18; TEMP 36.4–36.8; O2SAT 92–96; BMI 29.9
--- OUTSIDE RECORDS SUMMARY | 2024-09-12 07:35 | XMS RPT_ITS | CCD ---
Author Organization [facility] Inform ion Partnership [facility] Care Team Providers Care [employer] Set Up Operator Name Role Phone GAYE PILE DRIVER OPERATOR HELPER - BLAYNE, CARLINE Roberts Primary Care Phys ician DUNCAN SALEH, JEFF Tidwell Attending Unavailable GAYE WARNER - BLAYNE, CARLINE Roberts Primary Care U navailable GAYE ALANA - BLAYNE, CARLINE Roberts Attending U navailable GAYESANDY WARNER - SUPERVISOR [employer], CARLINE Roberts Primary Care U navailable GAYE ALANA - SUPERVISOR [employer], CARLINE Roberts Attending U navailable GAYERON WARNER - SUPERVISOR [employer], CARLINE Roberts Primary Care U navailable Medications Current Medications Medication Drug Class(es) Dates Sig (Normalized) Sig (Original) [id number] 200 actuat albuterol 0.09 mg/actuat metered dose inhaler (1 source) beta2-Adrenergic Agonist Start: 10-13-2023 take 2 puff(s) by inhalation every four hours as needed for wheezing ProAir HFA MDI (90 mcg/inh) inhalation aerosol 2 puff(s), Inhalation, q4h, PRN as needed for wheezing, # 8.5 gram(s), 6 Refill(s), Pharmacy: [facility], 156, cm, 10/09/23 13:33:00 EST, Height, kg, 10/09/23 13:33:00 EST, Dosing Weight Start Date: 10/13/23 Status: Ordered amLODIPine 5 mg oral tablet (1 source) Dihydropyridine Calcium Channel Talib Start: 10-09-2023 Norvasc 5 mg oral tablet Dose : 5 mg = 1 tab(s), Oral, qDay, # 30 tab(s), 5 Refill(s), Pharmacy: [facility], HTN (hypertension), 156, cm, 10/09/23 13:33:00 [...] BIDAC, # 60 tab(s), 1 Refill(s), Pharmacy: [facility], 156, cm, 10/09/23 13:33:00 EST, Height, [...] qDay, # 4 gram(s), 5 Refill(s), Pharmacy: [facility], COPD with asthma, 156, cm, 10/09/23 13:33:00 EST, Height, kg, 10/09/23 13:33:00 EST, Dosing Weight Start Date: 10/09/23 Stop Date: 04/06/24 Status: Ordered Symbicort 160 mcg-4.5 mcg/inh Inhaler (1 source) Start: 10-09-2023 End: 04-06-2024 take 1 dose by inhalation twice daily Symbicort 160 mcg-4.5 mcg/inh Inhaler Dose = 2 puff(s), Inhalation, BID, # 1 EA, 5 Refill(s), Pharmacy: [facility], COPD with asthma, 156, cm, 10/09/23 13:33:00 EST, Height, kg, 10/09/23 13:33:00 EST, Dosing Weight Start Date: 10/09/23 Stop Date: 04/06/24 Status: Ordered Problems Problem Classification Problem Date Documented Da te Episodic/Chronic Chronic kidney disease (1 source) Chronic kidney disease stage 3 02-19-2021 Chronic Chronic obstructive pulmonary disease and bronchiectasis (1 source) Asthma-chronic obstructive pulmonary disease overlap syndrome 10-09-2023 Chronic Comment on above: 09/03/2020 Pulmonary Function Test: IMPRESSION: 1. Irreversible mild large airway obstructive ventilatory defect with associated air trapping and symmetric reduction in diffusion capacity. Pulmonary function i mpression: Forced expiration spirometry demonstrates the presence of a mild large airway obstructive ventilatory defect. There was no significant response to aerosolized bronchodilators based upon strict ATS criteria. Spirograms are of good quality and do not plateau indicating slow emptying of the lungs. Noted elevated RV, indicative of underlying air trapping. Diffusing capacity by single breath CO2 is reduced to 76% of predicted value. Result is reversible mild large airway obstructive ventilatory defect with associated air trapping and symmetric reduction in diffusing capacity. Disorders of lipid metabolism (1 source) Hyperlipidemia 05-21-2020 Chronic Essential hypertension (1 source) Hypertensive disorder 10-12-2023 Chronic Comment on above: 10/09/2023 EKG: Interpretation: -Perceived rhythm: Sinus tachycardia -Ventricular rate: 103 bpm -Specific ST T changes noted: No -Acute ischemia noted: No -Other anomalies: None 2020 Carotid D oppler Ultrasound: INTERPRETATION: 1. Irregular plaque at the proximal right internal carotid artery with less than 50% stenosis. Less than 50% stenosis in the right external carotid. 2. Minimal irregular plaque in the proximal left internal carotid with less than 50% stenosis. Less than 50% stenosis left external carotid. 3. Patent and intergrade vertebrals bilaterally. Heart valve disorders (1 source) Pulmonary valve disorder 10-09-2023 Chronic Comment on above: 2020 Lower Ext remity Arterial Exam Without Exercise: INTERPRETATION: 1. Normal bilateral lower extremity ankle-brachial indices with triphasic Doppler waveforms at rest. Volume pulse recording slightly diminished in the left foot at the distal level. Possible temperature variation. Clinical correlation indicated Residual codes; unclassified (2 sources) Increased body mass index 08-21-2020 Episodic Screening and history of mental health and substance abuse codes (1 source) Tobacco smoking behavior - finding 08-21-2020 Chronic Unclassified (1 source) Non-smoker 10-09-2023 Unclassified (2 sources) Patient encounter status 10-09-2023 Comment on above: Screening for breast cancer Results Test Name Value Interpretation Reference Range Facility OVon 04-09-2018 [facility] Office Visit ([facility]) -------REMINGTONBRENDA S ([id number]) 1955 FDate Time Provider Department04/09/18 5:15 PM MOMO HARDY (BLAYNE) [facility] During your visit today, we recorded the following information about you: Temperature Pulse Blood pressure Weight 98.9 degrees 100/minute 140/84 65.3 kgMomo Hardy APRN.CNP 04/09/2018 7:37 PM SignedSubjectiveHPIHPI Brenda Teague Remington is a 62 year old female who presents today for CC ofbilateral calf pain. This started 1 week ago. Has tried otc medicationwithout relief. Symptoms are worsened by walking/stair. 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 No paincurrently/much worse at work and at end of day..Patient presents with:Musculoskeletal Problem: RT leg pain when standing X 1 weekPAST MEDICAL HISTORYDiagnosis Date- Malignant neoplasm of other specified sites of cervix 07/14/2006PAST SURGICAL HISTORYProcedure Laterality Date- LIGATE FALLOPIAN TUBEALLERGIES Patient has no known allergies.MEDICATIONSnaprox en(NAPROSYN 500 MG TAB) Take one(1) tablet twice daily as needed forpain, with food.gabapentin(NEURONTIN 300 MG CAP) Take one(1) tablet daily in the evening.FAMILY HISTORYProblem Relation Age of Onset- Kidney [Other] [OTHER] Father 2003, ?Diabetes- Hypertension Brother She doesn't know much about him- Hypertension MotherSocial HistorySubstance Use Topics- Smoking status: Current Every Day Smoker Packs/day: 1.50 Years: 25.00 Types: Cigarettes Last attempt to quit: 02/02/2007- Smokeless tobacco: Never Used Comment: quit smoking 6 weeks ago- Alcohol use NoReview of SystemsConstitutional: Negative for chills and fever.Respiratory: Negative for shortness of breath and wheezing.Cardiovascular: Negative for chest pain.Skin: Negative for itching and rash.ObjectiveBlood pressure 140/84, pulse 100, temperature 37.2 ?C (98.9 ?F), temperaturesource Tympanic, weight 65.3 kg (144 lb), SpO2 95 %.Physical ExamConstitutional: She is oriented to person, place, and time and well-developed,well-nourish ed, and in no distress. Non-toxic appearance. She does not have asickly appearance. No distress.HENT:Head: Normocephalic and atraumatic.Cardiovascular: Normal rate, regular rhythm, S1 normal, S2 normal and normalheart sounds.Pulses: Dorsalis pedis pulses are 2+ on the right side, and 2+ on the left side. Posterior tibial pulses are 2+ on the right side, and 2+ on the left side.Pulmonary/Chest: Effort normal and breath sounds normal. No accessory muscleusage. No respiratory distress.Musculoskeletal: Legs:Neurological: She is alert and oriented to person, place, and time. Gaitnormal.Skin: She is not diaphoretic. ASSESSMENT/PLAN:1. Muscular aches - ICD9: 729.1, ICD10: M79.1-I feel this is overuse and r/t new job that has extensive physicalrequirements for her age-given stretches/exercises-take medication as prescribed-follow up with primary care if symptoms persist-discussed red flags and reasons for urgent follow up- METHYLPREDNISOLONE 4 MG TABLETS IN A DOSE PACKPrescription instructions reviewed with patient as applicable. Patient advisedif symptoms do not improve or if symptoms worsen sooner, to contact the officefor further evaluation by their primary care physician. Potential red flagsymptoms discussed with the patient. Reviewed appropriate action plan to takeif red flag symptoms occur. Patient agreeable to treatment plan.Momo Hardy APRN.Vicky Hardy APRN.BLAYNE 04/09/2018 5:35 PM SignedASSESSMENT/PLAN:1. Muscular aches - ICD9: 729.1, ICD10: M79.1-given stretches/exercises-take medication as prescribed-follow up with primary care if symptoms persist-discussed red flags and reasons for urgent follow up- METHYLPREDNISOLONE 4 MG TABLETS IN A DOSE PACKReferring Provider: SELF [[id number]]Allergies As of Date: 04/09/2018(No Known Allergies)Date Reviewed: 04/09/2018Reviewed by: Momo Stuart) - Fully AssessedReason for Visit: Musculoskeletal Problem [69] Cmt: RT leg pain when standing X 1 weekPrimary Visit Diagnosis:Muscular aches [M79.1]Order(s):methylPREDN ISolone (MEDROL, JULIANA,) 4 mg Dose-PackFollow dosing instructions, take with food.Disp: 1 PackageRfl: 0Prescriptions as of 04/09/2018 Sig: METHYLPREDNISOLONE 4 MG TABLE* Follow dosing instructions, t* NAPROSYN 500 MG TABLET Take one(1) tablet twice cris* Patient not taking: No sig reported NEURONTIN 300 MG CAPSULE Take one(1) tablet daily in t* Patient not taking: No sig reportedProblem List As Of Date 04/09/2018 Noted Resolved [...] METHYLPREDNISOLONE 4 MG TABLETS IN A DOSE PACKPrescriptions ordered this encounter Disp Refills Start End METHYLPREDNISOLONE 4 MG TABLETS IN A* 1 Pa* 0 04/09/2018 04/15/2018 Sig: Follow dosing instructions, take with food. Status:Closed by MOMO HARDY CNP on 04/09/18 Normal [facility] PROGRESSon 04-09-2018 PROGRESS HNO ID: [id number] thor: Momo Stuart) Service: (none)Author Type: Nurse PractitionerType: Progress NotesFiled: 04/09/2018 7:37 PMNote Text:SubjectiveHPIHPI Brenda Bradley is a 62 year old female who presents today for CC ofbilateral calf pain. This started 1 week ago. Has tried otc medicationwithout relief. Symptoms are worsened by walking/stair. 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 No paincurrently/much worse at work and at end of day..Patient presents with:Musculoskeletal Problem: RT leg pain when standing X 1 weekPAST MEDICAL HISTORYDiagnosis Date- Malignant neoplasm of other specified sites of cervix 07/14/2006PAST SURGICAL HISTORYProcedure Laterality Date- LIGATE FALLOPIAN TUBEALLERGIES Patient has no known allergies.MEDICATIONSnaprox en(NAPROSYN 500 MG TAB) Take one(1) tablet twice daily as needed forpain, with food.gabapentin(NEURONTIN 300 MG CAP) Take one(1) tablet daily in the evening.FAMILY HISTORYProblem Relation Age of Onset- Kidney [Other] [OTHER] Father 2003, ?Diabetes- Hypertension Brother She doesn't know much about him- Hypertension MotherSocial HistorySubstance Use Topics- Smoking status: Current Every Day Smoker Packs/day: 1.50 Years: 25.00 Types: Cigarettes Last attempt to quit: 02/02/2007- Smokeless tobacco: Never Used Comment: quit smoking 6 weeks ago- Alcohol use NoReview of SystemsConstitutional: Negative for chills and fever.Respiratory: Negative for shortness of breath and wheezing.Cardiovascular: Negative for chest pain.Skin: Negative for itching and rash.ObjectiveBlood pressure 140/84, pulse 100, temperature 37.2 ?C (98.9 ?F),temperature source Tympanic, weight 65.3 kg (144 lb), SpO2 95 %.Physical ExamConstitutional: She is oriented to person, place, and time andwell-developed, well-nourished, and in no distress. Non-toxic appearance.She does not have a sickly appearance. No distress.HENT:Head: Normocephalic and atraumatic.Cardiovascular: Normal rate, regular rhythm, S1 normal, S2 normal andnormal heart sounds.Pulses: Dorsalis pedis pulses are 2+ on the right side, and 2+ on the leftside. Posterior tibial pulses are 2+ on the right side, and 2+ on the leftside.Pulmonary/Chest: Effort normal and breath sounds normal. No accessorymuscle usage. No respiratory distress.Musculoskeletal: Legs:Neurological: She is alert and oriented to person, place, and time. Gaitnormal.Skin: She is not diaphoretic. ASSESSMENT/PLAN:1. Muscular aches - ICD9: 729.1, ICD10: M79.1-I feel this is overuse and r/t new job that has extensive physicalrequirements for her age-given stretches/exercises-take medication as prescribed-follow up with primary care if symptoms persist-discussed red flags and reasons for urgent follow up- METHYLPREDNISOLONE 4 MG TABLETS IN A DOSE PACKPrescription instructions reviewed with patient as applicable. Patientadvised if symptoms do not improve or if symptoms worsen sooner, tocontact the office for further evaluation by their primary care physician. Potential red flag symptoms discussed with the patient. Reviewedappropriate action plan to take if red flag symptoms occur. Patientagreeable to treatment plan.Momo Hardy APRN.CNP Normal [facility] Encounters Encounter Date Encounter Type Care Provider Facility Start: 01-01-2024 ambulatory JEFF SONG MD Facil ity:A Start: 10-28-2023 End: 10-29-2023 ambulatory CARLINE HUIZAR APRN - [employer] Facility:B Start: 10-28-2023 End: 10-28-2023 Patient encounter procedure CARLINE HUIZAR APRN - [employer]PER[employer]OR [employer] [facility] Start: 10-23-2023 ambulatory CARLINE DELGADO PILE DRIVER OPERATOR HELPER - [employer] Facility:B Start: 04-09-2018 End: 04-13-2018 Ambulatory [facility] Immunizations Immunization Date Immunization Notes Care Provider Fa cility 01-26-2021 SARS-CoV-2 mRNA (tozinameran) vaccine CARLINE HUIZAR APRN - SUPERVISOR [employer] [facility] [place] Comment on above: Result Comment: 2020: [id number] 08-12-2018 influenza virus vaccine, unspecified formulation CARLINE HUIZAR PILE DRIVER OPERATOR HELPER - SUPER[employer] [facility] [employer] 09-15-2006 influenza virus vaccine, unspecified formulation CARLINE HUIZAR PILE DRIVER OPERATOR HELPER - SUPER[employer] [facility] [employer] 06-18-2006 tetanus and diphther ia toxoids, adsorbed, preservative free, for adult use (5 Lf of tetanus toxoid and 2 Lf of diphtheria toxoid) CARLINE HUIZAR PILE DRIVER OPERATOR HELPER - [employer] [facility] [place] Payers Date Payer Category Payer Unknown [id number] 2023 Unknown [id number] 1955 Unknown [id number] 1955 Unknown [id number] 1955 Unknown [id number] Social History Date Type Detail Facility Start: 10-09-2023 Tobacco smoking status Ex-smoker (fi nding) [facility] [employer] Sex Assigned At Female [facility] Evaluation + Plan note Laboratory Note Date & Type Note Facility Evaluation + Plan note Future Appointments Appointment Date:11/19/2023 01:20:00 PM Scheduled Provider:CARLINE HUIZAR APRN - [employer]OR [employer] Location:[facility] Appointment Type: OV Follow Up Future Scheduled TestsRenin, Plasma 10/10/23 [facility] Hospital course Narrative Note Date & Type Note Facility Hospital course Narrative No data available for this section [facility] Hospital Discharge instructions Note Date & Type Note Facility Hospital Discharge instructions No data available for this section [facility] Progress note Note Date & Type Note Facility Progress note No data available for this section [facility] Summary Purpose Family History No Family History Records Found No data available for this section No Family History Records Found Advance Directives No Advanced Directives Records FoundNo Advanced Directives Records Found Additional Source Comments INFORMATION SOURCE (unrecogn ized section and content) DATE CREATED AUTHOR 05/05/2018 [facility] DATE CREATED AUTHOR AUTHOR'S ORGANIZ ATION 01/03/2024 [facility] ([place]) Patient Care team informatio n (unrecognized section and content) Care Team Personnel Name: CARLINE HUIZAR APRN - SUPERVISOR [employer] Position: P4 [employer] Supervisor Member Role: Primary Care Physician Address: Address: [address] [place] [address]- [place] Care Team Related Persons Name: MELIZA SONG Address: Home [address] [place] [id number] FOR RECORDS PERTAINING TO PATIENTS WHO ARE [...] PRIMARY CLINICAL RECORDS. [facility]. provides no warranty or guarantee of the accuracy or completeness of information in this document.
--- NOTE | 2024-09-12 07:40 | PCM.HP.BLA ---
History and Physical Date of Admission: 09/12/24 Chief Complaint: f/u GI bleed Details: TONY BRADLEY, is a 68 F who presents to the office today for hospital f/u. She has been hospitalized multiple times with GI bleeding. 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 Since her hospital stay she has been doing well. She is seeing Dr. Torres for iron infusions and will have her first one 07.21.24. She is nervous this will make her stool dark. She denies melena, abdominal pain, constipation or diarrhea. EGD 05.22.24; - Grade I esophageal varices. - Oozing gastric ulcers with a visible vessel. Injected. Treated with a heater probe. - Normal second portion of the duodenum. - No specimens collected. Colonoscopy 05.06.24;- Preparation of the colon was fair. - Three bleeding colonic angiodysplastic lesions. Treated with a heater probe. - Diverticulosis in the recto-sigmoid colon and in the sigmoid colon. - Stool in the sigmoid colon, in the transverse colon and in the ascending colon. - Patchy moderate inflammation was found in the sigmoid colon, in the ascending colon and in the cecum secondary to colitis. Biopsied. - Stricture in the terminal ileum. Biopsied. ROS Const Constitutional: No fatigue, fever(s) or weight change ENT ENT: No difficulty swallowing Gastro GI: No abdominal pain, belching, bloating, change in bowel habits, change in stool character, coffee ground emesis, constipation, cramping, diarrhea, heartburn, difficulty swallowing, feeling full early, excessive flatus, incontinent of stools, Vomiting blood/hematemesis, Blood in stool, loose stools, Black,tarry stools, nausea/dyspepsia, pain with swallowing, vomiting or other Musc Musculoskeletal: No joint pain Skin Skin: No yellowing of the eye or itchy eyes Psych Psychiatric: No anxiety and No depression Endo Endocrine: No fatigue or weight change Aller/Imm Allergy/Immunologic: No itchy eyes Ciaran/Lymp Hematologic/Lymphatic: Positive for easy bruising; No easy bleeding Exam Const General: cooperative and comfortable Nutritional Appearance: average body habitus and well nourished [facility] Head: normal to inspection Ears: hearing grossly normal bilaterally Nose: external nose normal Face and sinus: normal facial exam Mouth: oral mucosae normal Throat: posterior oropharynx normal Eyes General: appearance normal, both eyes and all related structures Neck Neck: normal visual inspection Chest Chest palpation & inspection: normal inspection of the chest Resp Effort & Inspection: normal respiratory effort Cardio Palpation: normal PMI GI Inspection: normal to inspection Palpation: no hepatosplenomegaly Skin General: no rashes or lesions noted Neuro General: patient alert Extrem General: normal to inspection Psych Affect: normal affect Assessment and Plan Assessment and Plan (1) Iron (Fe) deficiency anemia: Status: Chronic Qualifiers: Iron deficiency anemia type: chronic blood loss Qualified Code(s): D50.0 - Iron deficiency anemia secondary to blood loss (chronic) Plan: Patient is here today for hospital f/u. She has had multiple GI bleeds with gastric ulcers and AVMs. She is established with Dr. Torres for iron infusion therapy. -She will undergo EGD in 3 months to monitor gastric ulcers and ensure healing -Mentioned capsule endoscopy in the future if hemoglobin continues to be low. -She will continue taking pantoprazole 20 mg daily -She will continue taking Carafate until her refill is gone -Last blood work was 8.26.24 with continued low hemoglobin and iron -She will f/u after EGD (2) Acute GI bleeding: Status: Acute (3) AVM (arteriovenous malformation): Status: Acute I have examined the patient and the H&P has been reviewed. There are no clinical changes since date of exam.
--- NOTE | 2024-09-12 07:42 | PRE.ANES_ITS ---
ASA Classification* ASA Classification ASA Classification: 3 Assessment & Plan Anesthesia* Anesthesia Assessment Anesthesia Assessment: Discussed sedation and/or anesthesia options, risks, benefits, and alternatives with patient/parents/legal guardian/POA. Questions invited. The patient/parents/legal guardian/POA seems to understand and agrees to proceed with anesthesia plan. Reviewed the physical assessment, medical history, allergy history and patient home medications list prior to surgery/procedure/anesthetic and documented any changes. Performed airway and anesthesia risk assessments. Anesthesia Type Anesthesia Type: MAC Anesthesia Focused Assessment* Airway Assessment Mouth opens: >3 cm Mallampati Score: II Focused Labs Anesthesia Preop lab: CBC WBC 6.8 K/mm3 (4.4-11.0) 09/06/24 14:21 RBC 4.96 M/mm3 (4.2-5.4) 09/06/24 14:21 Hgb 13.6 g/dL (12.0-15.0) 09/06/24 14:21 Hct 44.7 % (37-47) 09/06/24 14:21 Plt Count 298 K/mm3 (150-450) 09/06/24 14:21 CHEMISTRY Potassium 3.3 mmol/L (3.5-5.1) L 09/06/24 14:21 Sodium 140 mmol/L (136-145) 09/06/24 14:21 Magnesium 1.8 mg/dL (1.6-2.6) 09/06/24 14:21 Phosphorus 2.5 mg/dL (2.5-4.9) 09/06/24 14:21 BUN 16 mg/dL (7-18) 09/06/24 14:21 Creatinine 0.59 mg/dL (0.55-1.02) 09/06/24 14:21 Glucose 87 mg/dL (74-106) 09/06/24 14:21 POC Glucose 92 mg/dL (74-106) 05/10/24 11:15 TSH 1.68 uIU/mL (0.358-3.74) 05/04/24 06:10 COAG PT 16.6 SECONDS (11.7-14.9) H 05/22/24 09:20 Pre-Assessment Diagnosis/Proposed Procedure Planned Operative Procedure(s): egd Anesthesia History 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 When Was Last Pacemaker Check QUESTION #4 FULL TEXT: You/Your Family Experience fever (hyperthermia) with Anesthesia Last Oral Intake Last Oral intake: Last Oral Intake NPO since Meds taken in AM with sips of water? Meds patient instructed to take am of surgery PONV PONV - associate professor of psychology: PONV - associate professor of psychology Female Yes 09/08/24 14:27 HX of Motion Sickness No 09/08/24 14:27 HX of N/V After Surgery No 09/08/24 14:27 Non-Smoker No 09/08/24 14:27 Duration of Surgery greater No 09/08/24 14:27 than 60 minutes Number of Risk Factors 1 09/08/24 14:27 PONV Score Low Risk 09/08/24 14:27 Height & Weight Height & Weight: Anesthesia: Height & Weight Height 5 ft 8 in 09/06/24 15:09 Respiratory Assessment Respiratory Assessment - associate professor of psychology: Respiratory Tract Infection Hx - associate professor of psychology Hx Respiratory Tract Infection No 09/08/24 14:27 STOP Sleep Apnea STOP Sleep Apnea - associate professor of psychology: STOP Sleep Apnea - associate professor of psychology Hx Hypertension Yes: controlled with med 09/08/24 14:27 Hx Sleep Apnea No 09/08/24 14:27 CPAP No 07/21/24 13:15 BIPAP No 07/21/24 13:15 Do you snore loudly (louder No 09/08/24 14:27 than talking or can be heard Do you often feel tired/ No 09/08/24 14:27 fatigued/ sleepy during daytime? Has anyone observed you stop No 09/08/24 14:27 breathing during sleep? STOP Results Negative 09/08/24 14:27 QUESTION #5 FULL TEXT : Do you snore loudly (louder than talking or can be heard through closed doors)? Tobacco Use History Tobacco Use History - associate professor of psychology: Tobacco Use History - associate professor of psychology Tobacco Use Smoking Status Current some day smoker 09/08/24 14:27 Hx Tobacco Use Yes 09/08/24 14:27 Years Smoking Packs Smoked per Day Smoking Cessation Date was within the last 15 years Hx Smoking Cessation Date 11/16/21 01/08/24 18:47 Hx Smoking Cessation Counseling Hematologic Medial History Hematologic Hx - associate professor of psychology: Hematologic Medical Hx - emt i/99 Hx of Blood Transfusion Yes 09/08/24 14:27 Hx of Transfusion in last 3 No 09/08/24 14:27 Months Date of Last Transfusion (if within last 3 months) Ever experience any problems No 09/08/24 14:27 with transfusion(s)? Specify any problems Hx of Preganancy in last 3 N/A 09/08/24 14:27 Months Nurse Filling Out Transfusion NBUCHER 09/08/24 14:27 & Questions: Date: 09/08/24 09/08/24 14:27 Time: 14:29 09/08/24 14:27 Patient unable to answer at this time (ie. confused, unrespo /Reproduction History /Reproductive History - associate professor of psychology: /Reproductive Hx- associate professor of psychology Hx Now No 09/08/24 14:27 Gestational Age (in weeks): EDC: Hx Hx Para Hx Section SAB No 09/08/24 14:27 [facility]LY [facility] Medical History Wears dentures Post-menopausal Cancer Low iron Easy bruising History of ulceration Smoker COPD (chronic obstructive pulmonary disease) History of echocardiogram Encounter for screening for malignant neoplasm of lung Amputated toe of left foot Vitamin D deficiency Hyperlipidemia Hypertension COPD with asthma Hypomagnesemia Hypocalcemia Hypokalemia Anticoagulant long-term use AVM (arteriovenous malformation) Colitis Transfusion of blood during current hospitalisation Antiplatelet or antithrombotic long-term use Iron (Fe) deficiency anemia Atherosclerosis of [place] arteries of extremities with gangrene, left leg Carotid stenosis, bilateral Tobacco abuse Peripheral arterial occlusive disease Cervical cancer PVD (peripheral vascular disease) Arthritis Home Medications ?Medication ?Instructions ?Recorded ?Last Taken ?Type albuterol sulfate 90 mcg/actuation 2 puff inhalation Q6H PRN 01/08/24 Unknown History aerosol inhaler shortness of breath or wheezing amlodipine 5 mg tablet 5 mg PO DAILY blood pressure 01/08/24 05/21/24 History budesonide-formoterol HFA 160 2 puff inhalation BID breathing 01/08/24 05/21/24 History mcg-4.5 mcg/actuation aerosol inhaler rosuvastatin 10 mg tablet 10 mg PO DAILY cholesterol 01/08/24 05/21/24 History cholecalciferol (vitamin D3) 1,250 1,250 mcg PO QMONTH vitamin 05/03/24 05/19/24 History mcg (50,000 unit) capsule oxymetazoline 0.05 % nasal spray 2 spray intranasal BID PRN nasal 05/18/24 Unknown History (12 Hour Nasal Relief [place]) congestion sucralfate 1 gram tablet (Carafate) 1 g PO Q6H stomach 30 days #120 05/20/24 05/21/24 Rx tabs rivaroxaban 2.5 mg tablet (Xarelto) 2.5 mg PO BID #60 tabs 08/16/24 Unknown Rx pantoprazole 20 mg tablet,delayed 20 mg PO BID #60 tabs 08/26/24 Unknown Rx release potassium chloride 20 mEq 20 meq PO QDAY 14 days #14 tabs 09/06/24 Unknown Rx tablet,extended release Allergy/AdvReac Type Severity Reaction Status Date / Time No Known Allergies Allergy Verified 09/08/24 14:23 Family History Mother Breast cancer Surgical History History of amputation of toe History of colonoscopy History of esophagogastroduodenoscopy (EGD) S/P femoral-femoral bypass surgery S/P LEFT ARTERIOGRAM Social History household members: none Smoking Status: Current some day smoker tobacco type: cigarettes alcohol intake: former substance use type: does not use caffeine: Yes (coffee) Type: coffee Review of Systems (Anesthesia) ROS Narrative System reviewed and no additional complaints, except as documented.
--- NOTE | 2024-09-12 08:30 | EGD_PTH ---
PATHOLOGY RESULTS PATIENT: TONY BRADLEY LOC: EN U#:[id number] AGE/SX: 69/F ROOM: RE09/12/[address]: Dr. Adi Kincaid DO : 1955 BED: DIS: 09/12/2024 SPEC #: [id number] RECD: 09/12/24 12:06 STATUS: ALEXANDRO REMac #: [id number] KIKE: 09/12/24 08:[address]: Adi Kincaid DEPT: SURGICAL PATHOLOGY RECD BY: Odilia Espinosa ENTERED: 09/12/24 12:49 SP TYPE: EGD BIOPSY DOV DR: Vincent Ashley, TREE WRAPPER-C Tissues: Duodenum, NOS Procedures: Surgery Specimen Level IV HEADER OPERATION: EGD with biopsy, electrohemostasis PRE-OP DIAGNOSIS: Iron deficiency anemia, acute GI bleeding, arteriovenous malformation TISSUE SUBMITTED: Duodenum biopsy MICROSCOPIC DIAGNOSIS Duodenum, biopsy: Fragments of duodenal mucosa, no pathologic diagnosis. 09/13/2024 MICROSCOPIC DESCRIPTION Slides are reviewed. GROSS DESCRIPTION Received in fixative is one container labeled with the patient's name and designated Duodenum biopsy. The specimen consists of two irregular fragments of light hemphill soft tissue that in aggregate measure 0.6 x 0.4 x 0.1 cm. The specimen is totally submitted in one cassette. 09/12/2024 TC:4 CPT:94068
--- NOTE | 2024-09-12 09:02 | OP.EGD_ITS ---
Patient Name: Brenda Macedo Procedure Date: 09/12/2024 8:46 AM Date of : 1955 Age: 69 Procedure: Upper GI endoscopy Indications: Iron deficiency anemia Providers: Adi Kincaid DO Referring MD: Vincent Ashley Medicines: Monitored Anesthesia Care Patient Profile: This is a 69 year old female. Refer to note in patient chart for documentation of history and physical. Patient has symptoms. Complications: No immediate complications. Procedure: Pre-Anesthesia Assessment: - Prior to the procedure, a History and Physical was performed, and patient medications and allergies were reviewed. The patient is competent. The risks and benefits of the procedure and the sedation options and risks were discussed with the patient. All questions were answered and informed consent was obtained. Patient identification and proposed procedure were verified by the physician in the pre-procedure area. Mental Status Examination: alert and oriented. Airway Examination: normal oropharyngeal airway and neck mobility. Respiratory Examination: clear to auscultation. CV Examination: normal. Prophylactic Antibiotics: The patient does not require prophylactic antibiotics. Prior Anticoagulants: The patient has taken no anticoagulant or antiplatelet agents. ASA Grade Assessment: III - A patient with severe systemic disease. After reviewing the risks and benefits, the patient was deemed in satisfactory condition to undergo the procedure. The anesthesia plan was to use monitored anesthesia care (MAC). Immediately prior to administration of medications, the patient was re-assessed for adequacy to receive sedatives. The heart rate, respiratory rate, oxygen saturations, blood pressure, adequacy of pulmonary ventilation, and response to care were monitored throughout the procedure. The physical status of the patient was re-assessed after the procedure. After obtaining informed consent, the endoscope was passed under direct vision. Throughout the procedure, the patient's blood pressure, pulse, and oxygen saturations were monitored continuously. The gastroscope was introduced through the mouth, and advanced to the second part of duodenum. The upper GI endoscopy was accomplished without difficulty. The patient tolerated the procedure well. Scope In: 8:48:20 AM Scope Out: 8:55:34 AM Total Procedure Duration Time 0 hours 7 minutes 14 seconds Findings: LA Grade A (one or more mucosal breaks less than 5 mm, not extending between tops of 2 mucosal folds) esophagitis with no bleeding was found 34 to 39 cm from the incisors. A medium-sized hiatal hernia was present. Red blood was found in the gastric body. Two non-bleeding cratered gastric ulcers with no stigmata of bleeding were found in the cardia and on the greater curvature of the stomach. The largest lesion was 6 mm in largest dimension. Three 5 mm angiodysplastic lesions with bleeding were found in the gastric body and on the greater curvature of the stomach. Coagulation for hemostasis using heater probe was successful. Estimated blood loss was minimal. The first portion of the duodenum was normal. Biopsies were taken with a cold forceps for histology. Verification of patient identification for the specimen was done. Estimated blood loss was minimal. Impression: - LA Grade A reflux esophagitis with no bleeding. - Medium-sized hiatal hernia. - Red blood in the gastric body. - Non-bleeding gastric ulcers with no stigmata of bleeding. - Three bleeding angiodysplastic lesions in the stomach. - Normal first portion of the duodenum. Biopsied. Recommendation: - Discharge patient to home. - Resume previous diet. - Continue present medications. - Await pathology results. - Repeat upper endoscopy in 3 months to check healing. Procedure Code(s): --- Professional --- 66691, 59, Esophagogastroduodenoscopy, flexible, transoral; with control of bleeding, any method 21606, 51, Esophagogastroduodenoscopy, flexible, transoral; with biopsy, single or multiple CPT copyright 2021 [employer]. All rights reserved. The codes documented in this report are preliminary and upon fluid dynamicist review may be revised to meet current compliance requirements. Adi Kincaid DO 09/12/2024 9:02:02 AM This report has been signed electronically. Number of Addenda: 0 Note Initiated On: 09/12/2024 8:46 AM
--- NOTE | 2024-09-12 09:02 | OP.CCLET_ITS ---
09/13/2024 Vincent Ashley Re : Upper GI endoscopy procedure for Brenda Macedo Dear Dion This procedure was performed on Thursday, September 12, 2024. My impressions and recommendations are as follows: Impressions : - LA Grade A reflux esophagitis with no bleeding. - Medium-sized hiatal hernia. - Red blood in the gastric body. - Non-bleeding gastric ulcers with no stigmata of bleeding. - Three bleeding angiodysplastic lesions in the stomach. - Normal first portion of the duodenum. Biopsied. Recommendations : - Discharge patient to home. - Resume previous diet. - Continue present medications. - Await pathology results. - Repeat upper endoscopy in 3 months to check healing. My findings are described in the full procedure note, which is enclosed. If I can be of further assistance, please feel free to contact me at . Sincerely, Adi Kincaid, DO 09/12/2024 9:02:02 AM This report has been signed electronically.
--- NOTE | 2024-09-12 09:05 | PCM.POST.ANE ---
Anesthesia: Postop Eval I Current Vital Signs Temperature: 97.8 F Pulse Rate: 98 Blood Pressure: 123/99 Respiratory Rate: 18 Pulse Ox: 92 Oxygen Delivery Method: Nasal Cannula Oxygen Flow Rate (L/min): 3 Assessment Airway patent: Yes Spontaneous unlabored respirations: Yes Mental status: Awake nausea: No Vomiting: No Anesthesia Complication: No Fluid Hydration Crystalloid volume administer (ml): 30 Total IV fluid infused: 30 Progress Note Anesthesia document: Postop Eval 1 completed: Yes
--- NOTE | 2024-09-12 09:31 | PCM.POSTANE2 ---
Anesthesia Postop Eval I Sum Postop Eval Completion status Anesthesia document: Postop Eval 1 completed: Yes Anesthesia Postop Eval I Summary Anesthesia Postop Eval I Summary: Anesthesia Postop Eval I: Assessment Summary Airway patent Yes 09/12/24 09:06 [email or web address] Spontaneous unlabored Yes 09/12/24 09:06 [email or web address] respirations Mental status Awake 09/12/24 09:06 [email or web address] nausea No 09/12/24 09:06 [email or web address] Vomiting No 09/12/24 09:06 [email or web address] Anesthesia Postop Eval I: Fluid Summary Crystalloid volume administer 30 09/12/24 09:06 [email or web address] (ml) Colloids volume administered ( ml) Blood Product volume administered (ml) Total IV fluid infused 30 09/12/24 09:06 [email or web address] Anesthesia Postop Eval I: Summary Notes Anesthesia Complication No 09/12/24 09:06 [email or web address] Anesthesia Complication Comment: Post-operative progress note Anesthesia: Postop Eval II Evaluation Mental status: Awake Pain Level: 0 nausea: No Vomiting: No
== END 2024-09-12 09:40 | disposition home or self-care (01) ==
LOC: EN 07:28 → AC 07:30
PROVIDERS: PCP Nurse Practitioner Family; Referring Provider Nurse Practitioner Family; Visit Provider Internal Medicine Gastroenterology
PROC: 0DJ08ZZ Inspection of Upper Intestinal Tract, Via Natural or Artificial Opening Endoscopic (ICD-10-PCS; CPT 43235; principal; 2024-09-12 08:25)
DX: K31.811 Angiodysplasia of stomach and duodenum with bleeding (principal); J44.9 Chronic obstructive pulmonary disease, unspecified; N18.30 Chronic kidney disease, stage 3 unspecified; I12.9 Hypertensive chronic kidney disease with stage 1 through stage 4 chronic kidney disease, or unspecified chronic kidney disease; D50.0 Iron deficiency anemia secondary to blood loss (chronic); K21.00 Gastro-esophageal reflux disease with esophagitis, without bleeding; K44.9 Diaphragmatic hernia without obstruction or gangrene; K25.9 Gastric ulcer, unspecified as acute or chronic, without hemorrhage or perforation; D63.1 Anemia in chronic kidney disease; E78.5 Hyperlipidemia, unspecified; F17.210 Nicotine dependence, cigarettes, uncomplicated; Z79.01 Long term (current) use of anticoagulants; Z79.51 Long term (current) use of inhaled steroids; Z79.899 Other long term (current) drug therapy
CPT/HCPCS: 43239; 43255; 88305; A4216; J2405

== ENCOUNTER → 2024-10-20 | Outpatient (CLI) | payer MEDICARE, SELFPAY ==
[2024-10-20 11:09] LABS: Absolute Lymphocyte Count 1.28 X10^3/uL (0.83-4.51); Absolute Neutrophil Count 3.6 X10^3/uL (2.0-7.7); Basophil# 0.03 X10^3/uL; Basophil% 0.5 % (0-1); Eosinophils% 1.7 % (0-5); Hematocrit 43.5 % (37-47); Hemoglobin 13.7 g/dL (12.0-15.0); Lymphocyte # 1.28 X10^3/ul (0.83-4.51); Lymphocyte % 21.8 % (19-41); Mean Corp Hgb Conc 31.5 g/dL (32-36); Mean Corpuscular Hgb 27.6 pg (27.0-32.0); Mean Corpuscular Volume 87.7 fL (81-99); Mean Platelet Vol. 10.1 fl (6.2-12.0); Monocyte# 0.86 X10^3/uL; Monocyte% 14.7 % (0-10); NRBC Flagged by Analyzer 0 % (0-5); Neutrophil # 3.57 X10^3/uL (2.7-7.7); Platelet Count 241 K/mm3 (150-450); RBC Distribution Width CV 14.5 % (11.6-14.6); RBC Distribution Width SD 46.6 fl (35.1-43.9); Red Blood Count 4.96 M/mm3 (4.2-5.4); White Blood Count 5.9 K/mm3 (4.4-11.0)
== END | disposition home or self-care (01) ==
LOC: LAB 10:37
PROVIDERS: PCP Nurse Practitioner Family; Referring Provider Student in an Organized Health Care Education/Training Program; Visit Provider Student in an Organized Health Care Education/Training Program
DX: D64.9 Anemia, unspecified (principal)
CPT/HCPCS: 36415; 85025

== ENCOUNTER → 2024-11-11 | Outpatient (CLI) | payer MEDICARE, SELFPAY ==
[2024-11-11 10:20] LABS: Hematocrit 43.7 % (37-47); Hemoglobin 13.4 g/dL (12.0-15.0); Mean Corp Hgb Conc 30.7 g/dL (32-36); Mean Corpuscular Hgb 26.8 pg (27.0-32.0); Mean Corpuscular Volume 87.4 fL (81-99); Mean Platelet Vol. 9.8 fl (6.2-12.0); Platelet Count 268 K/mm3 (150-450); RBC Distribution Width SD 43.8 fl (35.1-43.9); Reticulocyte Count 1.09 % (0.5-1.5); White Blood Count 6.4 K/mm3 (4.4-11.0)
[2024-11-11 10:54] LABS: PTHIN 109.8 pg/mL (18.4-80.1)
[2024-11-11 10:59] LABS: Vitamin D,25 Hydroxy 59.1 ng/mL
[2024-11-11 11:28] LABS: ALB/GLOB Ratio 1.1 RATIO (0.9-2.4); AST(SGOT) 10 U/L (15-37); Alanine Aminotransfer ALT/SGPT 20 U/L (13-56); Albumin, Serum 3.8 g/dL (3.2-5.0); Alkaline Phosphatase 68 U/L (45-117); Anion Gap 2 (5-15); BUN 12 mg/dL (7-18); BUN/Creat Ratio 16.4 RATIO (10-20); Calcium,Total 9.5 mg/dL (8.5-10.1); Chloride 104 mmol/L (98-107); Cholesterol 143 mg/dL (200); Creatinine, Serum 0.73 mg/dL (0.55-1.02); EST Glomerular Filtration Rate 84 mL/min (>60); Est Glom Filt Rate - Afr Amer 102 mL/min (>60); Globulin 3.6 g/dL (2.2-4.2); Glucose 97 mg/dL (74-106); High Density Lipoprotein 52 mg/dL; Iron 89 ug/dL (50-170); Iron Binding Capacity,Total 319 ug/dL (250-450); PERCENT IRON SATURATION 27.9 % (15.0-55.0); Potassium 3.7 mmol/L (3.5-5.1); Protein, Total 7.4 g/dL (6.4-8.2); Sodium Level 139 mmol/L (136-145); Triglycerides 93 mg/dL; Very Low Density Lipoprotein 19 mg/dL (5-40)
[2024-11-11 11:39] LABS: Microalbumin,Random Urine 30.7 mg/L (NO RANGE EST.); Microalbumin:Creatinine Ratio 55.6 mg/g CRE (<30 mg/g CRE)
== END | disposition home or self-care (01) ==
LOC: LAB 09:37
PROVIDERS: PCP Nurse Practitioner Family; Referring Provider Nurse Practitioner Family; Visit Provider Nurse Practitioner Family
DX: I12.9 Hypertensive chronic kidney disease with stage 1 through stage 4 chronic kidney disease, or unspecified chronic kidney disease (principal); N18.30 Chronic kidney disease, stage 3 unspecified; E55.9 Vitamin D deficiency, unspecified; E78.5 Hyperlipidemia, unspecified; D50.9 Iron deficiency anemia, unspecified
CPT/HCPCS: 36415; 80053; 80061; 82043; 82306; 82570; 83540; 83550; 83970; 85027; 85045

== ENCOUNTER 2025-01-04 07:03 | Day surgery (SDC) | payer MEDICARE, SELFPAY ==
--- NOTE | 2025-01-02 12:30 | PAT.ANE_ITS ---
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 When Was Last Pacemaker Check QUESTION #4 FULL TEXT: You/Your Family Experience fever (hyperthermia) with Anesthesia Last Oral Intake Last Oral intake: Last Oral Intake NPO since Meds taken in AM with sips of water? Meds patient instructed to take am of surgery PONV PONV - drywall taper helper: PONV - drywall taper helper Female Yes 01/02/25 11:49 HX of Motion Sickness No 01/02/25 11:49 HX of N/V After Surgery No 01/02/25 11:49 Non-Smoker No 01/02/25 11:49 Duration of Surgery greater No 01/02/25 11:49 than 60 minutes Number of Risk Factors 1 01/02/25 11:49 PONV Score Low Risk 01/02/25 11:49 Height & Weight Height & Weight: Anesthesia: Height & Weight Height 5 ft 1 in 09/12/24 07:54 Respiratory Assessment Respiratory Assessment - drywall taper helper: Respiratory Tract Infection Hx - drywall taper helper Hx Respiratory Tract Infection No 01/02/25 11:49 STOP Sleep Apnea STOP Sleep Apnea - drywall taper helper: STOP Sleep Apnea - drywall taper helper Hx Hypertension Yes: per pt, controlled with 01/02/25 11:49 med Hx Sleep Apnea No 01/02/25 11:49 CPAP No 01/02/25 11:49 BIPAP No 01/02/25 11:49 Do you snore loudly (louder No 01/02/25 11:49 than talking or can be heard Do you often feel tired/ No 01/02/25 11:49 fatigued/ sleepy during daytime? Has anyone observed you stop No 01/02/25 11:49 breathing during sleep? STOP Results Negative 01/02/25 11:49 QUESTION #5 FULL TEXT : Do you snore loudly (louder than talking or can be heard through closed doors)? Tobacco Use History Tobacco Use History - drywall taper helper: Tobacco Use History - drywall taper helper Tobacco Use Smoking Status Current some day smoker 01/02/25 11:49 Hx Tobacco Use Yes 01/02/25 11:49 Years Smoking Packs Smoked per Day Smoking Cessation Date was within the last 15 years Hx Smoking Cessation Date 11/16/21 01/08/24 18:47 Hx Smoking Cessation Counseling Hematologic Medial History Hematologic Hx - drywall taper helper: Hematologic Medical Hx - analysis reporting developer Hx of Blood Transfusion Yes 01/02/25 11:49 Hx of Transfusion in last 3 No 01/02/25 11:49 Months Date of Last Transfusion (if within last 3 months) Ever experience any problems No 01/02/25 11:49 with transfusion(s)? Specify any problems Hx of Preganancy in last 3 No 01/02/25 11:49 Months Nurse Filling Out Transfusion MGOMA 01/02/25 11:49 & Questions: Date: 01/02/25 01/02/25 11:49 Time: 11:51 01/02/25 11:49 Patient unable to answer at this time (ie. confused, unrespo /Reproduction History /Reproductive History - drywall taper helper: /Reproductive Hx- drywall taper helper Hx Now No 01/02/25 11:49 Gestational Age (in weeks): EDC: Hx Hx Para Hx Section SAB No 01/02/25 11:49 PFSH Medical History (Updated 01/02/25 @ 11:59 by Callie Mooney) Excessive bleeding Gastric reflux On home oxygen therapy Chronic cough Wears dentures Post-menopausal Cancer Low iron History of ulceration Smoker COPD (chronic obstructive pulmonary disease) History of echocardiogram Encounter for screening for malignant neoplasm of lung Amputated toe of left foot Vitamin D deficiency Hyperlipidemia Hypertension COPD with asthma Hypomagnesemia Hypocalcemia Hypokalemia Anticoagulant long-term use AVM (arteriovenous malformation) Colitis Transfusion of blood during current hospitalisation Antiplatelet or antithrombotic long-term use Iron (Fe) deficiency anemia Atherosclerosis of [place] arteries of extremities with gangrene, left leg Carotid stenosis, bilateral Tobacco abuse Peripheral arterial occlusive disease Cervical cancer PVD (peripheral vascular disease) Arthritis Home Medications ?Medication ?Instructions ?Recorded ?Last Taken ?Type albuterol sulfate 90 mcg/actuation 2 puff inhalation Q 6H PRN 01/08/24 09/11/24 History aerosol inhaler shortness of breath or wheez ing amlodipine 5 mg tablet 5 mg PO 1400 blood pressure 01/08/24 09/12/24 History budesonide-formoterol HFA 160 2 puff inhalation BID br eathing 01/08/24 05/21/24 History mcg-4.5 mcg/actuation aerosol inhaler rosuvastatin 10 mg tablet 10 mg PO DAILY cholesterol 0 01/08/24 09/11/24 History cholecalciferol (vitamin D3) 1,250 1,250 mcg PO QMONTH vitamin 05/03/24 08/26/24 History mcg (50,000 unit) capsule oxymetazoline 0.05 % nasal spray 2 spray intranasal BI D PRN nasal 05/18/24 09/05/24 History (12 Hour Nasal Relief [place]) congestion rivaroxaban 2.5 mg tablet (Xarelto) 2.5 mg PO BID #60 tabs 08/16/24 09/08/24 Rx pantoprazole 20 mg tablet,delayed 20 mg PO BID #60 tab s 08/26/24 09/11/24 Rx release Allergy/AdvReac Type Severity Reaction Status Date / Time No Known Allergies Allergy Verified 01/02/25 11:45 Family History Mother Breast cancer Surgical History History of amputation of toe History of colonoscopy History of esophagogastroduodenoscopy (EGD) S/P femoral-femoral bypass surgery S/P LEFT ARTERIOGRAM Social History household members: none Smoking Status: Current some day smoker tobacco type: cigarettes alcohol intake: former substance use type: does not use caffeine: Yes (coffee) Type: coffee Audit: Pertinent Findings Pertinent Findings EKG Perinent findings: 05/22/2024 sinus tachycardia at 110 bpm otherwise normal EKG Echo (EF%) pertinent findings: 05/05/2024 EF 60% Recommendation Anesthesia Recommendation Anesthesia recommendation: OPTIMIZED for anesthesia
[2025-01-04] VITALS (8 sets, daily range): BP systolic 113–124; BP diastolic 66–77; PULSE 94–108; RESP 18–22; TEMP 36.1–37.2; O2SAT 90–95; BMI 31.0
--- NOTE | 2025-01-04 07:39 | PCM.PRE.AN2 ---
ASA Classification* ASA Classification ASA Classification: 3 Assessment & Plan Anesthesia* Anesthesia Assessment Anesthesia Assessment: Discussed sedation and/or anesthesia options, risks, benefits, and alternatives with patient/parents/legal guardian/POA. Questions invited. The patient/parents/legal guardian/POA seems to understand and agrees to proceed with anesthesia plan. Reviewed the physical assessment, medical history, allergy history and patient home medications list prior to surgery/procedure/anesthetic and documented any changes. Performed airway and anesthesia risk assessments. Anesthesia Type Anesthesia Type: MAC History Source History Obtained from:: Patient and Chart Anesthesia Focused Assessment* Temperature: 98.9 F Pulse Rate: 108 Blood Pressure: 123/73 Respiratory Rate: 20 Pulse Ox: 90 Oxygen Delivery Method: Room Air Airway Assessment Mouth opens: >3 cm Mallampati Score: IV Teeth Condition: Dentures (Patient has upper and lower dentures. They are out.) Neck Range of motion (ROM): Full ROM Focused Labs Anesthesia Preop lab: CBC WBC 6.4 K/mm3 (4.4-11.0) 11/11/24 09:42 11/11/24 RBC 5.00 M/mm3 (4.2-5.4) 11/11/24 09:42 11/11/24 Hgb 13.4 g/dL (12.0-15.0) 11/11/24 09:42 11/11/24 Hct 43.7 % (37-47) 11/11/24 09:42 11/11/24 Plt Count 268 K/mm3 (150-450) 11/11/24 09:42 11/11/24 CHEMISTRY Potassium 3.7 mmol/L (3.5-5.1) 11/11/24 09:42 11/11/24 Sodium 139 mmol/L (136-145) 11/11/24 09:42 11/11/24 Magnesium 1.8 mg/dL (1.6-2.6) 09/06/24 14:21 09/06/24 Phosphorus 2.5 mg/dL (2.5-4.9) 09/06/24 14:21 09/06/24 BUN 12 mg/dL (7-18) 11/11/24 09:42 11/11/24 Creatinine 0.73 mg/dL (0.55-1.02) 11/11/24 09:42 11/11/24 Glucose 97 mg/dL (74-106) 11/11/24 09:42 11/11/24 POC Glucose 92 mg/dL (74-106) 05/10/24 11:15 05/10/24 TSH 1.68 uIU/mL (0.358-3.74) 05/04/24 06:10 05/04/24 COAG PT 16.6 SECONDS (11.7-14.9) H 05/22/24 09:20 05/22/24 Pre-Assessment Diagnosis/Proposed Procedure Planned Operative Procedure(s): EGD Anesthesia History 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 When Was Last Pacemaker Check QUESTION #4 FULL TEXT: You/Your Family Experience fever (hyperthermia) with Anesthesia Last Oral Intake Last Oral intake: Last Oral Intake NPO since 22:00 01/04/25 07:18 Meds taken in AM with sips of No 01/04/25 07:18 water? Meds patient instructed to take am of surgery PONV PONV - branch rental manager: PONV - branch rental manager Female Yes 01/02/25 11:49 HX of Motion Sickness No 01/02/25 11:49 HX of N/V After Surgery No 01/02/25 11:49 Non-Smoker No 01/02/25 11:49 Duration of Surgery greater No 01/02/25 11:49 than 60 minutes Number of Risk Factors 1 01/02/25 11:49 PONV Score Low Risk 01/02/25 11:49 Height & Weight Height & Weight: Anesthesia: Height & Weight Height 5 ft 2 in 01/04/25 07:18 Weight: 77 kg 01/04/25 07:18 Body Mass Index (BMI) 31.0 01/04/25 07:18 Respiratory Assessment Respiratory Assessment - branch rental manager: Respiratory Tract Infection Hx - branch rental manager Hx Respiratory Tract Infection No 01/02/25 11:49 STOP Sleep Apnea STOP Sleep Apnea - branch rental manager: STOP Sleep Apnea - branch rental manager Hx Hypertension Yes: per pt, controlled with 01/02/25 11:49 med Hx Sleep Apnea No 01/02/25 11:49 CPAP No 01/02/25 11:49 BIPAP No 01/02/25 11:49 Do you snore loudly (louder No 01/02/25 11:49 than talking or can be heard Do you often feel tired/ No 01/02/25 11:49 fatigued/ sleepy during daytime? Has anyone observed you stop No 01/02/25 11:49 breathing during sleep? STOP Results Negative 01/02/25 11:49 QUESTION #5 FULL TEXT : Do you snore loudly (louder than talking or can be heard through closed doors)? 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 Specify any problems Hx of Preganancy in last 3 No 01/02/25 11:49 Months Nurse Filling Out Transfusion MGRIFFITH 01/02/25 11:49 & Questions: Date: 01/02/25 01/02/25 11:49 Time: 11:51 01/02/25 11:49 Patient unable to answer at this time (ie. confused, unrespo /Reproduction History /Reproductive History - branch rental manager: /Reproductive Hx- branch rental manager Hx Now No 01/02/25 11:49 Gestational Age (in weeks): EDC: Hx Hx Para Hx Section SAB No 01/02/25 11:49 PFSH Medical History Excessive bleeding Gastric reflux On home oxygen therapy Chronic cough Wears dentures Post-menopausal Cancer Low iron History of ulceration Smoker COPD (chronic obstructive pulmonary disease) History of echocardiogram Encounter for screening for malignant neoplasm of lung Amputated toe of left foot Vitamin D deficiency Hyperlipidemia Hypertension COPD with asthma Hypomagnesemia Hypocalcemia Hypokalemia Anticoagulant long-term use AVM (arteriovenous malformation) Colitis Transfusion of blood during current hospitalisation Antiplatelet or antithrombotic long-term use Iron (Fe) deficiency anemia Atherosclerosis of [place] arteries of extremities with gangrene, left leg Carotid stenosis, bilateral Tobacco abuse Peripheral arterial occlusive disease Cervical cancer PVD (peripheral vascular disease) Arthritis Home Medications ?Medication ?Instructions ?Recorded ?Last Taken ?Type albuterol sulfate 90 mcg/actuation 2 puff inhalation Q6H PRN 01/08/24 01/03/25 History aerosol inhaler shortness of breath or wheezing amlodipine 5 mg tablet 5 mg PO 1400 blood pressure 01/08/24 01/03/25 History budesonide-formoterol HFA 160 2 puff inhalation BID breathing 01/08/24 01/03/25 History mcg-4.5 mcg/actuation aerosol inhaler rosuvastatin 10 mg tablet 10 mg PO DAILY cholesterol 01/08/24 01/03/25 History cholecalciferol (vitamin D3) 1,250 1,250 mcg PO QMONTH vitamin 05/03/24 01/03/25 History mcg (50,000 unit) capsule oxymetazoline 0.05 % nasal spray 2 spray intranasal BID PRN nasal 05/18/24 01/03/25 History (12 Hour Nasal Relief [place]) congestion rivaroxaban 2.5 mg tablet (Xarelto) 2.5 mg PO BID #60 tabs 08/16/24 01/01/25 Rx pantoprazole 20 mg tablet,delayed 20 mg PO BID #60 tabs 08/26/24 09/11/24 Rx release Allergy/AdvReac Type Severity Reaction Status Date / Time No Known Allergies Allergy Verified 01/04/25 07:16 Family History Mother Breast cancer Surgical History History of amputation of toe History of colonoscopy History of esophagogastroduodenoscopy (EGD) S/P femoral-femoral bypass surgery S/P LEFT ARTERIOGRAM Social History household members: none Smoking Status: Current some day smoker tobacco type: cigarettes alcohol intake: former substance use type: does not use caffeine: Yes (coffee) Type: coffee Review of Systems (Anesthesia) ROS Narrative System reviewed and no additional complaints, except as documented.
[2025-01-04] MEDS: Ipratropium/Albuterol Sulfate 3 ML AMPUL.NEB INHALATION (07:48)
--- NOTE | 2025-01-04 08:40 | PCM.HP.STD ---
HPI - General General Date of Admission: 01/04/25 Date of Service: 01/04/25 Chief Complaint: Gastric ulcer HPI Narrative Chief Complaint: F/u for Iron deficiency anemia. TONY BRADLEY, is a 69 F who presents for surveillance of gastric ulcers. She has been hospitalized multiple times with GI bleeding. 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 Since her hospital stay she has been doing well. She is seeing Dr. Torres for iron infusions and will have her first one 07.21.24. She is nervous this will make her stool dark. She denies melena, abdominal pain, constipation or diarrhea. EGD 05.22.24; - Grade I esophageal varices. - Oozing gastric ulcers with a visible vessel. Injected. Treated with a heater probe. - Normal second portion of the duodenum. - No specimens collected. Colonoscopy 05.06.24;- Preparation of the colon was fair. - Three bleeding colonic angiodysplastic lesions. Treated with a heater probe. - Diverticulosis in the recto-sigmoid colon and in the sigmoid colon. - Stool in the sigmoid colon, in the transverse colon and in the ascending colon. - Patchy moderate inflammation was found in the sigmoid colon, in the ascending colon and in the cecum secondary to colitis. Biopsied. - Stricture in the terminal ileum. Biopsied. OV 10.20.24 Pt has been doing well. She has no GI concerns today. She continues with PPI therapy BID but is no longer taking carafate. EGD 09.13.24 LA Grade A reflux esophagitis with no bleeding. - Medium-sized hiatal hernia. - Red blood in the gastric body. - Non-bleeding gastric ulcers with no stigmata of bleeding. - Three bleeding angiodysplastic lesions in the stomach. - Normal first portion of the duodenum. Biopsied. [facility] Medical History Excessive bleeding Gastric reflux On home oxygen therapy Chronic cough Wears dentures Post-menopausal Cancer Low iron History of ulceration Smoker COPD (chronic obstructive pulmonary disease) History of echocardiogram Encounter for screening for malignant neoplasm of lung Amputated toe of left foot Vitamin D deficiency Hyperlipidemia Hypertension COPD with asthma Hypomagnesemia Hypocalcemia Hypokalemia Anticoagulant long-term use AVM (arteriovenous malformation) Colitis Transfusion of blood during current hospitalisation Antiplatelet or antithrombotic long-term use Iron (Fe) deficiency anemia Atherosclerosis of [place] arteries of extremities with gangrene, left leg Carotid stenosis, bilateral Tobacco abuse Peripheral arterial occlusive disease Cervical cancer PVD (peripheral vascular disease) Arthritis Home Medications ?Medication ?Instructions ?Recorded ?Last Taken ?Type albuterol sulfate 90 mcg/actuation 2 puff inhalation Q6H PRN 01/08/24 01/03/25 History aerosol inhaler shortness of breath or wheezing amlodipine 5 mg tablet 5 mg PO 1400 blood pressure 01/08/24 01/03/25 History budesonide-formoterol HFA 160 2 puff inhalation BID breathing 01/08/24 01/03/25 History mcg-4.5 mcg/actuation aerosol inhaler rosuvastatin 10 mg tablet 10 mg PO DAILY cholesterol 01/08/24 01/03/25 History cholecalciferol (vitamin D3) 1,250 1,250 mcg PO QMONTH vitamin 05/03/24 01/03/25 History mcg (50,000 unit) capsule oxymetazoline 0.05 % nasal spray 2 spray intranasal BID PRN nasal 05/18/24 01/03/25 History (12 Hour Nasal Relief [place]) congestion rivaroxaban 2.5 mg tablet (Xarelto) 2.5 mg PO BID #60 tabs 08/16/24 01/01/25 Rx pantoprazole 20 mg tablet,delayed 20 mg PO BID #60 tabs 08/26/24 09/11/24 Rx release Allergy/AdvReac Type Severity Reaction Status Date / Time No Known Allergies Allergy Verified 01/04/25 07:16 Family History Mother Breast cancer Surgical History History of amputation of toe History of colonoscopy History of esophagogastroduodenoscopy (EGD) S/P femoral-femoral bypass surgery S/P LEFT ARTERIOGRAM Social History household members: none Smoking Status: Current every day smoker (Patient smoked today.) tobacco type: cigarettes alcohol intake: former substance use type: does not use caffeine: Yes (coffee) Type: coffee ROS Constitutional Constitutional: Denies fatigue, fever(s), poor appetite, weight gain or weight loss Gastrointestinal Gastrointestinal: Denies belching, bloating, change in bowel habits, change in stool character, chewing difficulty, coffee ground emesis, constipation, cramping, diarrhea, dyspepsia, dysphagia, early satiety, excessive flatus, fecal incontinence, heartburn, hematemesis, hematochezia, hemorrhoids, loose stools, melena, nausea, odynophagia, rectal bleeding, tenesmus, vomiting or weight changes Vital Signs Vital Signs Vital Signs: 01/04/25 07:18 01/04/25 07:18 01/04/25 07:44 Temperature 98.9 F 98.9 F Temperature Source Temporal Pulse Rate 108 H 108 H Respiratory Rate 20 H 20 H Respiratory Pattern Normal Blood Pressure 123/73 H 123/73 H Blood Pressure Mean 89 Blood Pressure Source Monitor Blood Pressure Position Sitting Blood Pressure Location Left Arm Pulse Ox 90 90 Oxygen Delivery Method Room Air Room Air 01/04/25 07:49 Temperature Temperature Source Pulse Rate 106 H Respiratory Rate 22 H Respiratory Pattern Tachypnea Blood Pressure Blood Pressure Mean Blood Pressure Source Blood Pressure Position Blood Pressure Location Pulse Ox Oxygen Delivery Method Weight Weight: 169 lb 12.095 oz Body Mass Index (BMI) 31.0 Physical Exam Const alert and no apparent distress HEENT moist oral mucous membranes Resp normal respiratory effort, no retractions, no use of accessory muscles and clear to auscultation bilaterally Cardio regular rate, regular rhythm, S1 normal heart sound and S2 normal heart sound GI normal to inspection, nondistended, normoactive bowel sounds, soft to palpation, non-tender and non-distended Assessment & Plan Assessment/Plan (1) Gastric ulcer: (2) Anemia: PLAN: Assessment and Plan Assessment and Plan (1) Gastric ulcer: Status: Acute Plan: This is a 69 yo female pt here today for f/u. Pt had a repeat EGD 09.13.24 for surveillance of gastric ulcers. She did have ulcers, AVMs and esophagitis. Her hemoglobin is wnl and up trending w/ no GI symptoms. She will need to undergo repeat EGD to ensure healing of ulcers. SHe will continue PPI. Ordered CBC to monitor hemoglobin. -EGD -Continue PPI -CBC -F.u after procedure (2) Anemia: Status: Acute Orders: Orders CBC W/Diff, Automated Today D64.9 - Anemia, unspecified
--- NOTE | 2025-01-04 09:02 | OP.EGD_ITS ---
Patient Name: Brenda Macedo Procedure Date: 01/04/2025 8:50 AM Date of : 1955 Age: 69 Procedure: Upper GI endoscopy Indications: Acute post hemorrhagic anemia, Iron deficiency anemia, Follow-up of chronic gastric ulcer Providers: Adi Kincaid DO Referring MD: Vincent Ashley Medicines: Monitored Anesthesia Care Patient Profile: This is a 69 year old female. Refer to note in patient chart for documentation of history and physical. Patient has symptoms. Complications: No immediate complications. Procedure: Pre-Anesthesia Assessment: - Prior to the procedure, a History and Physical was performed, and patient medications and allergies were reviewed. The patient is competent. The risks and benefits of the procedure and the sedation options and risks were discussed with the patient. All questions were answered and informed consent was obtained. Patient identification and proposed procedure were verified by the physician in the pre-procedure area. Mental Status Examination: alert and oriented. Airway Examination: normal oropharyngeal airway and neck mobility. Respiratory Examination: clear to auscultation. CV Examination: normal. Prophylactic Antibiotics: The patient does not require prophylactic antibiotics. Prior Anticoagulants: The patient has taken no anticoagulant or antiplatelet agents except for NSAID medication. ASA Grade Assessment: II - A patient with mild systemic disease. After reviewing the risks and benefits, the patient was deemed in satisfactory condition to undergo the procedure. The anesthesia plan was to use monitored anesthesia care (MAC). Immediately prior to administration of medications, the patient was re-assessed for adequacy to receive sedatives. The heart rate, respiratory rate, oxygen saturations, blood pressure, adequacy of pulmonary ventilation, and response to care were monitored throughout the procedure. The physical status of the patient was re-assessed after the procedure. After obtaining informed consent, the endoscope was passed under direct vision. Throughout the procedure, the patient's blood pressure, pulse, and oxygen saturations were monitored continuously. The Endoscope was introduced through the mouth, and advanced to the second part of duodenum. The upper GI endoscopy was accomplished without difficulty. The patient tolerated the procedure well. Scope In: 8:54:39 AM Scope Out: 8:58:01 AM Total Procedure Duration Time 0 hours 3 minutes 22 seconds Findings: The examined esophagus was normal. A medium-sized hiatal hernia was present. One oozing linear gastric ulcer with pigmented material was found on the lesser curvature of the stomach. The lesion was 6 mm in largest dimension. Coagulation for hemostasis using hot biopsy forceps was successful. Estimated blood loss was minimal. No gross lesions were noted in the duodenal bulb and in the first portion of the duodenum. Impression: - Normal esophagus. - Medium-sized hiatal hernia. - Oozing gastric ulcer with pigmented material. Treated with hot biopsy forceps. - No gross lesions in the duodenal bulb and in the first portion of the duodenum. - No specimens collected. Recommendation: - Discharge patient to home. - Resume previous diet. - Continue present medications. Procedure Code(s): --- Professional --- 97990, Esophagogastroduodenoscopy, flexible, transoral; with control of bleeding, any method CPT copyright 2021 [employer] [place] [employer]. All rights reserved. The codes documented in this report are preliminary and upon patch machine operator review may be revised to meet current compliance requirements. Adi Kincaid DO 01/04/2025 9:02:23 AM This report has been signed electronically. Number of Addenda: 0 Note Initiated On: 01/04/2025 8:50 AM
--- NOTE | 2025-01-04 09:02 | OP.CCLET_ITS ---
01/04/2025 Vincent Ashley Re : Upper GI endoscopy procedure for Brenda Macedo Dear Dion This procedure was performed on Saturday, January 04, 2025. My impressions and recommendations are as follows: Impressions : - Normal esophagus. - Medium-sized hiatal hernia. - Oozing gastric ulcer with pigmented material. Treated with hot biopsy forceps. - No gross lesions in the duodenal bulb and in the first portion of the duodenum. - No specimens collected. Recommendations : - Discharge patient to home. - Resume previous diet. - Continue present medications. My findings are described in the full procedure note, which is enclosed. If I can be of further assistance, please feel free to contact me at . Sincerely, Adi Kincaid, 01/04/2025 9:02:23 AM This report has been signed electronically.
--- NOTE | 2025-01-04 09:08 | PCM.POST.ANE ---
Anesthesia: Postop Eval I Current Vital Signs Temperature: 97 F Pulse Rate: 94 Blood Pressure: 122/66 Respiratory Rate: 18 Pulse Ox: 95 Oxygen Delivery Method: Nasal Cannula Oxygen Flow Rate (L/min): 2 Assessment Airway patent: Yes Spontaneous unlabored respirations: Yes Mental status: Awake and Calm nausea: No Vomiting: No Anesthesia Complication: Yes Anesthesia Complication Comment:: O2 desat d/t coughing Fluid Hydration Crystalloid volume administer (ml): 30 Total IV fluid infused: 30 Progress Note Anesthesia document: Postop Eval 1 completed: Yes
--- NOTE | 2025-01-04 09:39 | PCM.POSTANE2 ---
Anesthesia Postop Eval I Sum Postop Eval Completion status Anesthesia document: Postop Eval 1 completed: Yes Anesthesia Postop Eval I Summary Anesthesia Postop Eval I Summary: Anesthesia Postop Eval I: Assessment Summary Airway patent Yes 01/04/25 09:09 [email or web address] Spontaneous unlabored Yes 01/04/25 09:09 [email or web address] respirations Mental status Awake,Calm 01/04/25 09:09 [email or web address] nausea No 01/04/25 09:09 [email or web address] Vomiting No 01/04/25 09:09 [email or web address] Anesthesia Postop Eval I: Fluid Summary Crystalloid volume administer 30 01/04/25 09:09 [email or web address] (ml) Colloids volume administered ( ml) Blood Product volume administered (ml) Total IV fluid infused 30 01/04/25 09:09 [email or web address] Anesthesia Postop Eval I: Summary Notes Anesthesia Complication Yes 01/04/25 09:09 [email or web address] Anesthesia Complication O2 desat d/t 01/04/25 09:09 [email or web address] Comment: coughing Post-operative progress note Anesthesia: Postop Eval II Evaluation Mental status: Awake and Calm Pain Level: 0 nausea: No Vomiting: No
== END 2025-01-04 09:50 | disposition home or self-care (01) ==
LOC: EN 07:03 → AC 07:05
PROVIDERS: PCP Nurse Practitioner Family; Referring Provider Nurse Practitioner Family; Visit Provider Internal Medicine Gastroenterology
PROC: 0DJ08ZZ Inspection of Upper Intestinal Tract, Via Natural or Artificial Opening Endoscopic (ICD-10-PCS; CPT 43235; principal; 2025-01-04 08:10)
DX: K25.4 Chronic or unspecified gastric ulcer with hemorrhage (principal); J44.9 Chronic obstructive pulmonary disease, unspecified; K44.9 Diaphragmatic hernia without obstruction or gangrene; D62 Acute posthemorrhagic anemia; I10 Essential (primary) hypertension; E78.5 Hyperlipidemia, unspecified; F17.210 Nicotine dependence, cigarettes, uncomplicated; Z79.899 Other long term (current) drug therapy
CPT/HCPCS: 43255; 94640; A4216; J2405

== ENCOUNTER → 2025-01-26 | Outpatient (CLI) | payer MEDICARE, SELFPAY ==
--- NOTE | 2025-01-26 12:45 | BI_ITS ---
PROCEDURE: SCRN MAMM (CAD)W/ANTOINE BILAT REASON FOR EXAM: F, Age 69 y/o , SCREENING. Mother with breast cancer. TECHNIQUE: Bilateral screening digital breast tomosynthesis with 2D and 3D images. Computer aided detection. COMPARISON: Prior exam(s) dating back to January 09, 2021.. FINDINGS: The breasts are heterogeneously dense which may obscure small masses. Stable scattered calcifications bilaterally. No suspicious masses, areas of developing architectural distortion, or suspicious calcifications. There has been no change. BI/SCRN MAMM (CAD)W/ANTOINE BILAT IMPRESSION: BI-RADS 2: BENIGN. RECOMMEND ANNUAL MAMMOGRAPHIC SCREENING. Follow-up code: Routine Follow-up The patient will be notified of the results by letter. Reading Location: [id number]
== END | disposition home or self-care (01) ==
LOC: OPBI 12:44
PROVIDERS: PCP Nurse Practitioner Family; Referring Provider Nurse Practitioner Family; Visit Provider Nurse Practitioner Family
DX: Z12.31 Encounter for screening mammogram for malignant neoplasm of breast (principal)
CPT/HCPCS: 77063; 77067

== ENCOUNTER → 2025-02-14 | Outpatient (CLI) | payer MEDICARE, SELFPAY | END | disposition home or self-care (01) | LOC: PSN 12:28 | PROVIDERS: PCP Nurse Practitioner Family; Referring Provider Internal Medicine Critical Care Medicine; Visit Provider Internal Medicine Critical Care Medicine | DX: J44.9 Chronic obstructive pulmonary disease, unspecified (principal) | CPT/HCPCS: 94060; 94726; 94729 ==

== ENCOUNTER → 2025-02-15 | Outpatient (CLI) | payer MEDICARE, SELFPAY ==
[2025-02-15 09:32] LABS: Absolute Lymphocyte Count 1.83 X10^3/uL (0.83-4.51); Absolute Neutrophil Count 4.3 X10^3/uL (2.0-7.7); Basophil# 0.04 X10^3/uL; Basophil% 0.6 % (0-1); Eosinophil# 0.15 X10^3/uL; Eosinophils% 2.1 % (0-5); Hematocrit 41.9 % (37-47); Hemoglobin 12.9 g/dL (12.0-15.0); Lymphocyte # 1.83 X10^3/ul (0.83-4.51); Lymphocyte % 26.1 % (19-41); Mean Corp Hgb Conc 30.8 g/dL (32-36); Mean Corpuscular Hgb 27.4 pg (27.0-32.0); NRBC Flagged by Analyzer 0 % (0-5); Neutrophil # 4.26 X10^3/uL (2.7-7.7); Neutrophil % 60.6 % (47-70); Platelet Count 292 K/mm3 (150-450); RBC Distribution Width CV 14.5 % (11.6-14.6); RBC Distribution Width SD 47.5 fl (35.1-43.9); Red Blood Count 4.71 M/mm3 (4.2-5.4)
== END | disposition home or self-care (01) ==
LOC: LAB 09:05
PROVIDERS: PCP Nurse Practitioner Family; Referring Provider Student in an Organized Health Care Education/Training Program; Visit Provider Student in an Organized Health Care Education/Training Program
DX: D64.9 Anemia, unspecified (principal)
CPT/HCPCS: 36415; 85025

== ENCOUNTER → 2025-02-16 | Outpatient (CLI) | payer MEDICARE, SELFPAY ==
[2025-02-16 12:44] VITALS: PULSE 106; PULSE 110; PULSE 121; PULSE 122; PULSE 129; PULSE 131; PULSE 136; PULSE 138; O2SAT 90; O2SAT 92; O2SAT 93; O2SAT 96
--- NOTE | 2025-02-22 12:40 | PCM.PSN.6M ---
PSN 6 Minute Walk Test 6 Minute Walk Test 6 Minute Walk Test: 6 Minute Walk Test PSN:6-Minute Walk Test Start: 02/16/25 12:43 Freq: Status: Discharge Protocol: [id number] Document 02/16/25 12:44 PRINCEMYA (Rec: 02/16/25 12:47 MATTMARMYA [id number]) 6 Minute Walk Test Date Performed 02/16/25 Time Performed 12:30 Height 5 ft 2 in Weight: 172 lb Weight in Pounds 172.[address]: Danis Bustos Assistive device None used: Pre-test Oxygen Delivery Room Air Method Pulse Ox (%) 92 Pulse Rate (60-100 106 H beats/min) Dyspnea Naina Scale ( 0 0-10) Exertion Naina Scale 6 (6-20) 1st minute Oxygen Delivery Room Air Method Pulse Ox (%) 93 Pulse Rate (60-100 121 H beats/min) 2nd minute Oxygen Delivery Room Air Method Pulse Ox (%) 92 Pulse Rate (60-100 122 H beats/min) 3rd minute Oxygen Delivery Room Air Method Pulse Ox (%) 92 Pulse Rate (60-100 129 H beats/min) 4th minute Oxygen Delivery Room Air Method Pulse Ox (%) 90 Pulse Rate (60-100 131 H beats/min) 5th minute Oxygen Delivery Room Air Method Pulse Ox (%) 93 Pulse Rate (60-100 138 H beats/min) 6th minute Oxygen Delivery Room Air Method Pulse Ox (%) 93 Pulse Rate (60-100 136 H beats/min) Dyspnea Naina Scale ( 2 0-10) Exertion Naina Scale 13 (6-20) Post-test Oxygen Delivery Room Air Method Pulse Ox (%) 96 Pulse Rate (60-100 110 H beats/min) Full Laps Walked 16 Partial Lap, Number 7 of Tiles Walked Total Distance 951 Walked (ft) Interpretation Interpretation: The patient ambulated 951 feet over the course of 6 minutes beginning on room air without assistive devices. Pretesting oxygen saturation was noted to be 92% on room air. With ambulation, the nilson oxygen saturation was 90%. There was no significant exertional oxygen desaturation. Recommendations Recommendations: There is no indication for the use of supplemental oxygen at this time.
== END | disposition home or self-care (01) ==
LOC: PSN 12:14
PROVIDERS: PCP Nurse Practitioner Family; Referring Provider Internal Medicine Critical Care Medicine; Visit Provider Internal Medicine Critical Care Medicine
DX: J44.9 Chronic obstructive pulmonary disease, unspecified (principal)
CPT/HCPCS: 94618

== ENCOUNTER → 2025-02-20 | Outpatient (CLI) | payer MEDICARE, SELFPAY ==
--- NOTE | 2025-02-20 10:51 | ART_ITS ---
Reason For Study Reason For Study: PVD Procedure A bilateral lower extremity continuous wave Doppler with analog waveform analysis,segmental pressures,and ankle brachial indexes with exercise. Left Segmental Pressures Left brachial= 132mmHg. Left posterior tibial artery = 134mmHg. Left dorsalis pedis artery = 129mmHg. Left digit = 102 mmHg. Right Segmental Pressures Right brachial= 134mmHg. Right posterior tibial artery = 138mmHg. Right dorsalis pedis artery = 155mmHg. Right digit = 105 mmHg. Indices The right ankle brachial index by the posterior tibial artery is 1.03. The right ankle brachial index by the dorsalis pedis is 1.16. The right digital-brachial index is 0.78. The right post exercise ankle brachial index is 0.78. The left ankle brachial index by the posterior tibial artery is 1.00. The left ankle brachial index by the dorsalis pedis is 0.96. The left digital-brachial index is 0.76. The left post exercise ankle brachial index is 0.57. VL/Lower Ext Art Exam w/ Exercise Interpretation Summary Right ALEIDA 1.16, normal. TBI and Doppler/PVR waveforms of the right leg normal a t rest. Right lower extremity with abnormal response to exercise and post exercise ALEIDA in the moderate category. Left ALEIDA 1.0, normal. TBI and Doppler/PVR waveforms of the left leg normal at r est. Left lower extremity with abnormal response to exercise and post exercise ALEIDA i n the moderate category. Ordering Physician: Katie Retana Referring Physician: Vincent Ashley Performed By: Rosenda Gomez RDCS/RVT
== END | disposition home or self-care (01) ==
PROVIDERS: PCP Nurse Practitioner Family; Referring Provider Physician Assistant; Visit Provider Physician Assistant
DX: Z48.812 Encounter for surgical aftercare following surgery on the circulatory system (principal); I73.9 Peripheral vascular disease, unspecified
CPT/HCPCS: 93924

== ENCOUNTER → 2025-02-24 | Outpatient (CLI) | payer MEDICARE, SELFPAY ==
--- NOTE | 2025-02-24 09:10 | US_ITS ---
PROCEDURE: ULTRASOUND ABDOMEN LIMITED WITH ELASTOGRAPHY REASON FOR EXAM: ESOPHAGEAL VARICES COMPARISON: NO RELEVANT PRIOR. TECHNIQUE: Right upper quadrant abdominal ultrasound along with shear wave elastography for non-invasive assessment of liver tissue stiffness. FINDINGS: LIVER: Size: Normal. Length: 15.4 cm Echotexture: Hyperechoic. Homogeneous texture. Contour: Normal. Lesions: None identified. Blood flow: Hepatopetal. Elastography: EQI Med: 14.97 kPa EQI Med Augusto: 2.21 m/s GALLBLADDER: No gallstones. No pericholecystic fluid. No wall thickening. COMMON BILE DUCT: 0.6 cm in diameter. PANCREAS: Unremarkable. Right kidney: Size measures 10.7 X 4.8 X 5.1 cm. Cortex measures 1.4 cm. US/ABD Limited w/ Elastography IMPRESSION: 1. 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 2. STEATOSIS. Reference Values: SRU <1.37 m/s (5.7kPa): No to mild fibrosis 1.37 m/s - 2.2 m/s: Moderate to severe fibrosis >2.2 m/s (15kPa): Significant fibrosis / cirrhosis METAVIR Score F2 or higher: 1.34 m/s (5.7kPa) F3 or higher: 1.55 m/s (7.3kPa) F4: 1.80 m/s (10kPa) Reading Location: [place] [id number]
== END | disposition home or self-care (01) ==
LOC: US 09:06
PROVIDERS: PCP Nurse Practitioner Family; Referring Provider Student in an Organized Health Care Education/Training Program; Visit Provider Student in an Organized Health Care Education/Training Program
DX: I85.00 Esophageal varices without bleeding (principal)
CPT/HCPCS: 76705; 76981

== ENCOUNTER → 2025-04-12 | Outpatient (CLI) | payer MEDICARE, SELFPAY ==
[2025-04-12 14:59] LABS: Hematocrit 40.7 % (37-47); Hemoglobin 12.6 g/dL (12.0-15.0); Mean Corpuscular Hgb 27.3 pg (27.0-32.0); Mean Corpuscular Volume 88.1 fL (81-99); Mean Platelet Vol. 10.5 fl (6.2-12.0); Platelet Count 302 K/mm3 (150-450); RBC Distribution Width CV 14.1 % (11.6-14.6); RBC Distribution Width SD 45.6 fl (35.1-43.9); Red Blood Count 4.62 M/mm3 (4.2-5.4)
[2025-04-12 15:11] LABS: Microalbumin,Random Urine 27.2 mg/L (NO RANGE EST.); Microalbumin:Creatinine Ratio 774.9 mg/g CRE
[2025-04-12 16:37] LABS: PTHIN 72 pg/mL (11-61)
[2025-04-12 16:51] LABS: ALB/GLOB Ratio 1.6 RATIO (0.9-2.4); AST(SGOT) 15 U/L (<=31); Alanine Aminotransfer ALT/SGPT 11 U/L (<=34); Albumin, Serum 4.4 g/dL (3.4-4.8); Alkaline Phosphatase 76 U/L (35-104); Anion Gap 13 (5-15); BUN 13 mg/dL (4-19); Calcium,Total 9.7 mg/dL (7.6-11.0); Carbon Dioxide 28.1 mmol/L (21.0-32.0); Chloride 99 mmol/L (98-108); Cholesterol 169 mg/dL (<=200); Creatinine, Serum 0.65 mg/dL (0.70-1.20); EST Glomerular Filtration Rate 97 (>60); Globulin 2.7 g/dL (2.2-4.2); Glucose 89 mg/dL (70-99); High Density Lipoprotein 53 mg/dL; Low Density Lipoprotein Calc. 96 mg/dL; Potassium 3.9 mmol/L (3.3-5.1); Protein, Total 7.1 g/dL (5.9-8.4); Sodium Level 139 mmol/L (133-145); Total Bilirubin 0.38 mg/dL (0.00-1.30); Triglycerides 102 mg/dL; Very Low Density Lipoprotein 20 mg/dL (5-40); Vitamin D,25 Hydroxy 44.4 ng/mL (30-100); cholesterol:hdl ratio screen 3.21
[2025-04-12 17:27] LABS: Iron 78 ug/dL (50-170); Iron Binding Capacity,Total 372 ug/dL (250-450); Iron Binding Capacity,Unsat 294 ug/dL (228-428); Magnesium 1.7 mg/dL (1.5-2.2)
== END | disposition home or self-care (01) ==
LOC: LABSPEC 13:06
PROVIDERS: PCP Nurse Practitioner Family; Referring Provider Nurse Practitioner Family; Visit Provider Nurse Practitioner Family
DX: I12.9 Hypertensive chronic kidney disease with stage 1 through stage 4 chronic kidney disease, or unspecified chronic kidney disease (principal); N18.30 Chronic kidney disease, stage 3 unspecified; D63.1 Anemia in chronic kidney disease; E78.5 Hyperlipidemia, unspecified; E55.9 Vitamin D deficiency, unspecified
CPT/HCPCS: 36415; 80053; 80061; 82043; 82306; 82570; 83540; 83550; 83735; 83970; 85027

== ENCOUNTER 2025-04-18 05:21 | Day surgery (SDC) | payer MEDICARE, SELFPAY ==
--- NOTE | 2025-04-12 14:34 | PAT.ANE_ITS ---
Pre-Assessment Diagnosis/Proposed Procedure Planned Operative Procedure(s): EGD Anesthesia History Anesthesia History - sourcing specialist: Anesthesia History - sourcing specialist Hx Hospitalization No 04/12/25 14:27 Any Problems With Anesthesia No 04/12/25 14:27 Cholinesterase deficiency No 04/12/25 14:27 You/Your Family Experience No 04/12/25 14:27 fever (hyperthermia) with Relationship Recent Exposure to Contagious No 01/04/25 07:18 Disease Does patient have nerve No 04/12/25 14:27 stimulator Patient instructed to have device shut off --Does patient have Pacemaker or ICD? When Was Last Pacemaker Check QUESTION #4 FULL TEXT: You/Your Family Experience fever (hyperthermia) with Anesthesia Last Oral Intake Last Oral intake: Last Oral Intake NPO since Meds taken in AM with sips of water? Meds patient instructed to take am of surgery PONV PONV - sourcing specialist: PONV - sourcing specialist Female Yes 04/12/25 14:27 HX of Motion Sickness No 04/12/25 14:27 HX of N/V After Surgery No 04/12/25 14:27 Non-Smoker No 04/12/25 14:27 Duration of Surgery greater No 04/12/25 14:27 than 60 minutes Number of Risk Factors 1 04/12/25 14:27 PONV Score Low Risk 04/12/25 14:27 Height & Weight Height & Weight: Anesthesia: Height & Weight Height 5 ft 2 in 02/16/25 12:44 Respiratory Assessment Respiratory Assessment - sourcing specialist: Respiratory Tract Infection Hx - sourcing specialist Hx Respiratory Tract Infection No 04/12/25 14:27 STOP Sleep Apnea STOP Sleep Apnea - sourcing specialist: STOP Sleep Apnea - sourcing specialist Hx Hypertension Yes: per pt, controlled with 04/12/25 14:27 med Hx Sleep Apnea No 04/12/25 14:27 CPAP No 04/12/25 14:27 BIPAP No 04/12/25 14:27 Do you snore loudly (louder No 04/12/25 14:27 than talking or can be heard Do you often feel tired/ No 04/12/25 14:27 fatigued/ sleepy during daytime? Has anyone observed you stop No 04/12/25 14:27 breathing during sleep? STOP Results Negative 04/12/25 14:27 QUESTION #5 FULL TEXT : Do you snore loudly (louder than talking or can be heard through closed doors)? Tobacco Use History Tobacco Use History - sourcing specialist: Tobacco Use History - sourcing specialist Tobacco Use Smoking Status Current some day smoker 04/12/25 14:27 Hx Tobacco Use Yes 04/12/25 14:27 Years Smoking Packs Smoked per Day Smoking Cessation Date was within the last 15 years Hx Smoking Cessation Date Hx Smoking Cessation Counseling Hematologic Medial History Hematologic Hx - sourcing specialist: Hematologic Medical Hx - documentation designer Hx of Blood Transfusion Yes 04/12/25 14:27 Hx of Transfusion in last 3 No 04/12/25 14:27 Months Date of Last Transfusion (if within last 3 months) Ever experience any problems No 04/12/25 14:27 with transfusion(s)? Specify any problems Hx of Preganancy in last 3 N/A 04/12/25 14:27 Months Nurse Filling Out Transfusion NBUCHER 04/12/25 14:27 & Questions: Date: 04/12/25 04/12/25 14:27 Time: 04/12/25 14:27 Patient unable to answer at this time (ie. confused, unrespo /Reproduction History /Reproductive History - sourcing specialist: /Reproductive Hx- sourcing specialist Hx Now No 04/12/25 14:27 Gestational Age (in weeks): EDC: Hx Hx Para Hx Section SAB No 04/12/25 14:27 PFSH Medical History Excessive bleeding Gastric reflux On home oxygen therapy Chronic cough Wears dentures Post-menopausal Cancer Low iron History of ulceration Smoker COPD (chronic obstructive pulmonary disease) History of echocardiogram Encounter for screening for malignant neoplasm of lung Amputated toe of left foot Vitamin D deficiency Hyperlipidemia Hypertension COPD with asthma Hypomagnesemia Hypocalcemia Hypokalemia Anticoagulant long-term use AVM (arteriovenous malformation) Colitis Transfusion of blood during current hospitalisation Antiplatelet or antithrombotic long-term use Iron (Fe) deficiency anemia Atherosclerosis of [place] arteries of extremities with gangrene, left leg Carotid stenosis, bilateral Tobacco abuse Peripheral arterial occlusive disease Cervical cancer PVD (peripheral vascular disease) Arthritis Home Medications ?Medication ?Instructions ?Recorded ?Last Taken ?Type albuterol sulfate 90 mcg/actuation 2 puff inhalation Q 6H PRN 01/08/24 01/03/25 History aerosol inhaler shortness of breath or wheez ing amlodipine 5 mg tablet 5 mg PO 1600 blood pressure 01/08/24 01/03/25 History rosuvastatin 10 mg tablet 10 mg PO DAILY cholesterol 0 01/08/24 01/03/25 History cholecalciferol (vitamin D3) 1,250 1,250 mcg PO QMONTH vitamin 05/03/24 01/03/25 History mcg (50,000 unit) capsule oxymetazoline 0.05 % nasal spray 2 spray intranasal BI D PRN nasal 05/18/24 01/03/25 History (12 Hour Nasal Relief [employer] [place]) congestion clopidogrel 75 mg tablet (Plavix) 75 mg PO DAILY #90 t abs 02/15/25 Unknown Rx pantoprazole 40 mg tablet,delayed 40 mg PO BID #90 tab s 02/15/25 Unknown Rx release fluticasone fur. 100 mcg-umeclid 1 inh inhalation Q24H #60 ea 04/04/25 Unknown Rx 62.5 mcg-vilant 25 mcg inhalat.powder (Trelegy Ellipta) Allergy/AdvReac Type Severity Reaction Status Date / Time No Known Allergies Allergy Verified 04/12/25 14:23 Family History Mother Breast cancer Surgical History History of amputation of toe History of colonoscopy History of esophagogastroduodenoscopy (EGD) S/P femoral-femoral bypass surgery S/P LEFT ARTERIOGRAM Social History (Updated 03/10/25 @ 10:10 by Nguyen Sheets) household members: none Smoking Status: Current some day smoker tobacco type: cigarettes alcohol intake: former substance use type: does not use caffeine: Yes (coffee) Type: coffee Audit: Pertinent Findings Pertinent Findings EKG Perinent findings: 05/22/2024. Sinus tachycardia at 110 bpm. Otherwise normal EKG. Echo (EF%) pertinent findings: 05/05/2024. EF is 60%. No aortic stenosis. Recommendation Anesthesia Recommendation Anesthesia recommendation: OPTIMIZED for anesthesia
[2025-04-18] VITALS (10 sets, daily range): BP systolic 104–127; BP diastolic 59–75; PULSE 87–100; RESP 16–20; TEMP 36.2–36.7; O2SAT 87–96; BMI 33.5
--- OUTSIDE RECORDS SUMMARY | 2025-04-18 05:26 | XMS RPT_ITS | CCD ---
Author Organization [facility] Care Team Providers Care Mission Planner Name Role Phone DION PROVIDER NETWORK MANAGER - PHONOGRAPH MECHANIC, CARLINE Roberts Primary Care Phys ician DUNCAN SALEH, JEFF Tidwell Attending Unavailable DION PROVIDER NETWORK MANAGER - PHONOGRAPH MECHANIC, CARLINE Roberts Primary Care U navailable DION PROVIDER NETWORK MANAGER - PHONOGRAPH MECHANIC, CARLINE Roberts Attending U navailable DION PROVIDER NETWORK MANAGER - PHONOGRAPH MECHANIC, CARLINE Roberts Primary Care U navailable DION PROVIDER NETWORK MANAGER - PHONOGRAPH MECHANIC, CARLINE Roberts Attending U navailable DION PROVIDER NETWORK MANAGER - PHONOGRAPH MECHANIC, CARLINE Roberts Primary Care U navailable Dion WAITER/WAITRESS HEAD, WAITER/WAITRESS HEAD-C Carline Cuevas Primary Care Pr ovider Dr. Josiane Tucker Emergency Provider Dr. Liz Murillo Admit Provider Dr. Liz Murillo Other Provider Dr. Armani Moses Attending Provider Dr. Armani Moses Other Provider Dr. Momo Camacho Other Provider Dr. Selvin Frost Other Provider Dr. Selvin Barrera Attending Provider Dr. Selvin Barrera Other Provider Dr. Kevin Souza Other Provider Dr. Momo Camacho Referring Provider [phone] Dr. Selvin Frost Attending Provider Dr. Lynn Enriquez Other Provider Dr. Selvin Frost Referring Provider Dr. Kerline Oquendo Attending Provider ANN MARIE Lu Attending Provider MAO Retana Attending Provider [phone] Dion WAITER/WAITRESS HEAD, WAITER/WAITRESS HEAD-C Carline Cuevas Primary Care Pr ovider Dr. Josiane Tucker Emergency Provider Dr. Liz Murillo Admit Provider Dr. Liz Murillo Other Provider Dr. Armani Moses Attending Provider Dr. Armani Moses Other Provider Dr. Momo Camacho Other Provider Dr. Selvin Frost Other Provider Dr. Selvin Barrera Attending Provider Dr. Selvin Barrera Other Provider Dr. Kevin Souza Other Provider [phone] Dr. Momo Camacho Referring Provider Dr. Selvin Frost Attending Provider [phone] Lynn Enriquez Other Provider Dr. Selvin Frost Referring Provider [phone] Kerline Oquendo Attending Provider ANN MARIE Lu Attending Provider Dr. Armani Moses Referring Provider [phone] MAO Retana Attending Provider [phone] Dion [place], WAITER/WAITRESS HEAD-C Carline Cuevas Referring Provi elliot MAO Retana Referring Provider [phone] Dion WAITER/WAITRESS HEAD-CCarline Primary Care Provi elliot Dion EASTON-CCarline Referring Provider Tamar Sapp Attending Provider Tamar Sapp Referring Provider Dion WAITER/WAITRESS HEAD-C, Carline Cuevas Attending Provider Dr. Adi Kincaid DO Attending Provider Codi HERRERA, Dr. Joshi Other Provider [phone] Dr. Danis Bustos DO Attending Provider Davidson WAITER/WAITRESS HEAD-C, Carline Cuevas Primary [facility] Provi elliot Dion WAITER/WAITRESS HEAD-C, Carline Cuevas Referring Provider Dr. Danis Bustos DO Referring Provider [phone] Tamar Sapp Attending Provider Abhijit PA, Tamar Referring Provider Katie eVrma Attending Provider [phone] Mazin PA, Katie Referring Provider 1([facility])-[phone] Santosh SALEH, Dr. Montalvo Attending Provider Dr. Joseph Torres MD Attending Provider Dr. Joseph Torres MD Referring Provider [phone] Danis Bustos DO Other Provider [phone] Davidson WAITER/WAITRESS HEAD-C, [facility] Davidson WAITER/WAITRESS HEAD-C, Carline Cuevas Referring Provider Davidson WAITER/WAITRESS HEAD-C, Carline Cuevas Attending Provider Sowmya WAITER/WAITRESS HEAD-CRupali Attending Provider Dion WAITER/WAITRESS HEAD, Carline Cuevas Primary Care Unav ailable Davidson WAITER/WAITRESS HEAD, Carline Cuevas Referring Unav ailable Dion WAITER/WAITRESS HEAD, Carline Cuevas Attending Unav ailable Dion WAITER/WAITRESS HEAD, Carline Cuevas Primary Care Unav ailable Retana, Katie Attending Unavailable Retana, Katie Referring Unavailable Davidson WAITER/WAITRESS HEAD, Carline Cuevas Referring Unav ailable Dion WAITER/WAITRESS HEAD, Carline Cuevas Attending Unav ailable Davidson WAITER/WAITRESS HEAD, Carline Cuevas Primary Care Unav ailable Dion WAITER/WAITRESS HEAD, Carline Cuevas Attending Unav ailable Dion WAITER/WAITRESS HEAD, Carline Cuevas Referring Unav ailable Dion WAITER/WAITRESS HEAD, Carline Cuevas Primary Care Unav ailable Belinda Baker Attending Unavailable Robert Merritt Admitting Unavailable Robert Merritt Consulting Unavailable Davidson WAITER/WAITRESS HEAD, Carline Cuevas Primary Care Unav ailable Belinda Baker Consulting Unavailable Belinda Baker Referring Unavailable Friend, Adi Attending Unavailable Meli Carvajal Attending Unavailable Dion WAITER/WAITRESS HEAD, Carline Cuevas Primary Care Unav ailable Leo Chavez Referring Unavailable Davidson WAITER/WAITRESS HEAD, Carline Cuevas Primary Care Unav ailable Friend, Adi Attending Unavailable Leo Chavez Attending Unavailable Davidson WAITER/WAITRESS HEAD, Carline Cuevas Primary Care Unav ailable Leo Chavez Admitting Unavailable Dion WAITER/WAITRESS HEAD, Carline Cuevas [facility] Care Unav ailable Ave Burk Consulting Unavailable Ave Burk Admitting Unavailable Selvin Barrera Attending Unavailable Tamar Lacey Referring Unavailable Tamar Lacey Attending Unavailable Davidson WAITER/WAITRESS HEAD, Carline Cuevas Primary Care Unav ailable Dion WAITER/WAITRESS HEAD, Carline Mason Attending Unav ailable Dion WAITER/WAITRESS HEAD, Carline Cuevas Primary Care Unav ailable Davidson WAITER/WAITRESS HEAD, Carline Cuevas Referring Unav ailable Friend, Adi Attending Unavailable Davidson WAITER/WAITRESS HEAD, Carline Cuevas Primary Care Unav ailable Davidson WAITER/WAITRESS HEAD, Carline Cuevas Primary Care Unav ailable Suleman WAITER/WAITRESS HEAD, Antonia Attending Unavailable Suleman WAITER/WAITRESS HEAD, Antonia Referring Unavailable Dion WAITER/WAITRESS HEAD, Carline Cuevas Primary Care Unav ailable Katie Retana Referring Unavailable Katie Retana Attending Unavailable Danis Bustos Attending Unavailable Danis Bustos Referring Unavailable Davidson WAITER/WAITRESS HEAD, Carline Cuevas Primary Care Unav ailable Davidson WAITER/WAITRESS HEAD, Carline Cuevas Primary Care Tamar Isaac Referring Unavailable Tamar Lacey Attending Unavailable Dion WAITER/WAITRESS HEAD, Carline Cuevas Referring Unav ailable Dion WAITER/WAITRESS HEAD, Carline Cuevas Primary Care Unav ailable Friend, Adi Attending Unavailable Dion WAITER/WAITRESS HEAD, Carline Cuevas Referring Unav ailable Davidson WAITER/WAITRESS HEAD, Carline Cuevas Primary Care Unav ailable Friend, Adi Consulting Unavailable Friend, Adi Attending Unavailable Dion WAITER/WAITRESS HEAD, Carline Henis Referring Unav ailable Dion WAITER/WAITRESS HEAD, Carline Cuevas Primary Care Unav ailable Friend, Adi Attending Unavailable Dion WAITER/WAITRESS HEAD, Carline Cuevas Attending Unav ailable Dion WAITER/WAITRESS HEAD, Carline Cuevas Primary Care Unav ailable Davidson WAITER/WAITRESS HEAD, Carline Henis Referring Unav ailable Tamar Lacey Attending Unavailable Tamar Lacey Referring Unavailable Dion WAITER/WAITRESS HEAD, Carline Cuevas [facility] Care Unav ailable Kotsonis, Leo F Consulting Unavailable Kotsonis, Leo F Admitting Unavailable Davidson WAITER/WAITRESS HEAD, Carline Cuevas Primary Care Unav ailable Selvin Barrera Attending Unavailable Belinda Baker Attending Unavailable Dion WAITER/WAITRESS HEAD, Carline Cuevas [facility] Unav ailable Robert Merritt Consulting Unavailable René Robert Admitting Unavailable Kotsonis, Leo F Admitting Unavailable Kotsonis, Leo F Consulting Unavailable Davidson WAITER/WAITRESS HEAD, Carline Cuevas [facility] Unav ailable Friend, Adi Attending Unavailable Joppchica Selvin Referring Unavailable Jopperi, Selvin Consulting Unavailable Kotsonis, Leo F Admitting Unavailable Kotsonis, Leo F Consulting Unavailable Kotsonis, Leo F Attending Unavailable Davidson WAITER/WAITRESS HEAD, Carline Cuevas Primary Care Unav ailable Dion WAITER/WAITRESS HEAD, Carline Cuevas Primary Care Unav ailable White Ave L Admitting Unavailable White, Ave L Consulting Unavailable JopperiSelvin Attending Unavailable Jopperi Selvin Consulting Unavailable JootiliaeriSelvin Attending Unavailable Kotsonis, Leo F Referring Unavailable Kotsonis, Leo F Attending Unavailable Davidson WAITER/WAITRESS HEAD, Carline Cuevas Primary Care Unav ailable Dion WAITER/WAITRESS HEAD, Carline Cuevas Referring Unav ailable Joseph Torres Attending Unavailable Davidson WAITER/WAITRESS HEAD, Carline Cuevas Referring Unav ailable Davidson WAITER/WAITRESS HEAD, Carline Cuevas Primary Care Unav ailable Tamar Lacey Attending Unavailable Dion WAITER/WAITRESS HEAD, Carline Cuevas Referring Unav ailable Davidson WAITER/WAITRESS HEAD, Carline Cuevas Primary Care Unav ailable Joseph Torres Attending Unavailable Dion WAITER/WAITRESS HEAD, Carline Cuevas Referring Unav ailable Davidson WAITER/WAITRESS HEAD, Carline Cuevas Primary Care Unav ailable Katie Retana Attending Unavailable Belinda Baker Referring Unavailable Davidson WAITER/WAITRESS HEAD, Carline Cuevas [facility] Unav ailable Friend, Adi Attending Unavailable Davidson WAITER/WAITRESS HEAD, Carline uCevas [facility] Care Unav ailable Kerline Oquendo Attending UnavailAve Person Attending Unavailable Davidson WAITER/WAITRESS HEAD, Carline Cuevas [facility] Unav ailable Robert Merritt Attending Unavailable Davidson WAITER/WAITRESS HEAD, Carline Cuevas Referring Unav ailable Davidson WAITER/WAITRESS HEAD, Carline Cuevas Primary Care Unav ailable Tamar Lacey Attending Unavailable Dion WAITER/WAITRESS HEAD, Carline Mason Primary Care Unav ailable Suleman WAITER/WAITRESS HEAD, Antonia Attending Unavailable Suleman WAITER/WAITRESS HEAD, Antonia Referring Unavailable Davidson WAITER/WAITRESS HEAD, Carline Mason Referring Unav ailable Danis Bustos Attending Unavailable Davidson WAITER/WAITRESS HEAD, Carline Cuevas Primary Care Unav ailable Dion WAITER/WAITRESS HEAD, Carline Cuevas Referring Unav ailable Dion WAITER/WAITRESS HEAD, Carline Cuevas Primary Care Unav ailable PraJoseph case Attending Unavailable Dion WAITER/WAITRESS HEAD, Carline Cuevas Referring Unav ailable Dion WAITER/WAITRESS HEAD, Carline Cuevas [facility] Unav ailable Tamar Lacey Attending Unavailable Dion WAITER/WAITRESS HEAD, Carline Cuevas [facility] Care Unav ailable Danis Bustos Attending Unavailable Danis Bustos Referring Unavailable Selvin Frost Attending Unavailable Davidson WAITER/WAITRESS HEAD, Carline Cuevas [facility] Unav ailable RetanaKatie figueroa Referring Unavailable Selvin Frost Attending Unavailable Davidson WAITER/WAITRESS HEAD, Carline Cuevas [facility] Unav ailable Retana, Katie Referring Unavailable Dion WAITER/WAITRESS HEAD, Carline Mason Referring Unav ailable Davidson WAITER/WAITRESS HEAD, Carline Cuevas [facility] Unav ailable Joseph Torres Attending Unavailable Davidson WAITER/WAITRESS HEAD, Carline Cuevas Primary Care Unav ailable Davidson WAITER/WAITRESS HEAD, Carline Henis Referring Unav ailable Rupali Deng Attending Unavailable Davidson WAITER/WAITRESS HEAD, Carline Cuevas Primary Care Unav ailable Joseph Torres Attending Unavailable Joseph Torres Referring Unavailable Dion WAITER/WAITRESS HEAD, Carline Cuevas Primary Care Unav ailable Danis Bustos Attending Unavailable BrownAshleighk Consulting Unavailable BrownAshleighk Referring Unavailable Dion WAITER/WAITRESS HEAD, Carline Cuevas Referring Unav ailable Friend, Adi Consulting Unavailable Friend, Adi Attending Unavailable Dion WAITER/WAITRESS HEAD, Carline Cuevas Primary Care Unav ailable Leo Chavez Referring Unavailable Friend, Adi Attending Unavailable Dion WAITER/WAITRESS HEAD, Carline Cuevas Attending Unav ailable Dion WAITER/WAITRESS HEAD, Carline Cuevas Referring Unav ailable Dion WAITER/WAITRESS HEAD, Carline Cuevas Primary Care Unav ailable Medications Current Medications Medication Drug Class(es) Dates Sig (Normalized) Sig (Original) [id number] 200 actuat albuterol 0.09 mg/actuat metered dose inhaler (17 sources) beta2-Adrenergic Agonist Start: 01-08-2024 Albuterol Sulfate 90 mcg/actuation HFA aerosol inhaler Active 2 NMA INHALATION EVERY 6 HOURS as needed for shortness of breath or wheezing January 08, 2024 1:00am Start: 01-08-2024 take 1 puff(s) by in halation every six hours Albuterol Sulfate Active 2 PUFF INHALATION EVERY 6 HOURS January 08, 2024 1:00am Start: 10-13-2023 take 2 puff(s) by in halation every four hours as needed for wheezing ProAir HFA MDI (90 mcg/inh) inhalation aerosol 2 puff(s), Inhalation, q4h, PRN as needed for wheezing, # 8.5 gram(s), 6 Refill(s), Pharmacy: [id number], 156, cm, 10/09/23 13:33:00 EST, Height, kg, 10/09/23 13:33:00 EST, Dosing Weight Start Date: 10/13/23 Status: Ordered amLODIPine 5 mg oral tablet (17 sources) Dihydropyridine Calcium Channel Talib Start: 01-08-2024 Amlodipine 5 mg tablet Active 5 mg PO 1600 January 08, 2024 1:00am Start: 10-09-2023 Norvasc 5 mg o ral tablet Dose : 5 mg = 1 tab(s), Oral, qDay, # 30 tab(s), 5 Refill(s), Pharmacy: [id number], HTN (hypertension), 156, cm, 10/09/23 13:33:00 EST, Height, kg, 10/09/23 13:33:00 EST, Dosing Weight Start Date: 10/09/23 Status: Ordered cholecalciferol 1.25 mg oral capsule (7 sources) Vitamin D Start: 05-03-2024 take 1 capsule by mouth every month Cholecalciferol (Vitamin D3) 1,250 mcg (50,000 unit) capsule Active 1250 ug PO EVERY MONTH May 03, 2024 12:00am clopidogrel 75 mg oral tablet (20 sources) [id number] Platelet Inhibitor Start: 02-15-2025 take 1 tablet by mouth once daily Clopidogrel (Plavix) 75 mg tablet Active 75 mg PO DAILY February 15, 2025 12:00am Start: 01-08-2024 End: 05-26-2024 take 1 tablet by mouth once daily Clopidogrel (Plavix) 75 mg tablet Discontinued 75 mg PO DAILY February 11, 2024 12:00am May 26, 2024 12:35pm Start: 12-01-2018 End: 05-03-2020 take 1 tablet by mouth once daily Clopidogrel 75 mg tablet Discontinued 75 mg PO DAILY December 01, 2018 1:00am May 03, 2020 9:03am Start: 08-31-2018 End: 11-29-2018 take 1 tablet by mouth once daily Clopidogrel 75 MG tablet Discontinued 75 mg PO DAILY October 05, 2018 11:56am November 28, 2018 1:00am November 29, 2018 1:09am Chnfcezuqrv-Hussyqlmx-Efyvtu er (2 sources) Anticholinergic, Corticosteroid, beta2-Adrenergic Agonist Start: 04-04-2025 Peconywfvtm-Agypeacju-Gejage er (Trelegy Ellipta) 100-62.5-25 mcg blister with device Active 1 NMA INHALATION Q24H 60 April 04, 2025 12:00am Start: 03-24-2025 End: 03-28-2025 Kdhockemycd-Cthwicvtv-Zhtpri er (Trelegy Ellipta) 100-62.5-25 mcg blister with device Discontinued 1 NMA INHALATION Q24H 60 March 24, 2025 12:00am March 28, 2025 7:10am 60 actuat olodaterol 0.0025 mg/actuat / tiotropium 0.0025 mg/actuat inhalation spray (1 source) Anticholinergic, beta2-Adrenergic Agonist Start: 10-09-2023 End: 04-06-2024 take 1 dose by inhalation once daily Stiolto Respimat 60 ACT 2.5 mcg-2.5 mcg/inh inhalation aerosol Dose = 2 puff(s), Inhalation, qDay, # 4 gram(s), 5 Refill(s), Pharmacy: [facility], COPD with asthma, 156, cm, 10/09/23 13:33:00 EST, Height, kg, 10/09/23 13:33:00 EST, Dosing Weight Start Date: 10/09/23 Stop Date: 04/06/24 Status: Ordered oxymetazoline hydrochloride 0.5 mg/ml nasal spray (7 sources) Start: 05-18-2024 Oxymetazoline (12 Hour Nasal Relief [place]) 0.05 % spray,non-aerosol Active 2 NMA INTRANASAL TWICE A DAY as needed for nasal congestion May 18, 2024 12:00am pantoprazole 40 mg delayed release oral tablet (20 sources) Proton Pump Inhibitor Start: 02-15-2025 take 1 tablet by mouth twice daily Pantoprazole 40 mg tablet,delayed release (DR/EC) Active 40 mg PO TWICE A DAY 90 February 15, 2025 12:00am Start: 08-26-2024 End: 04-12-2025 take 1 tablet by mouth twice daily Pantoprazole 20 mg tablet,delayed release (DR/EC) Discontinued 20 mg PO TWICE A DAY January 04, 2025 2:25pm April 12, 2025 2:25pm Start: 08-11-2024 End: 08-26-2024 take 1 tablet by mouth once daily Pantoprazole 20 mg tablet,delayed release (DR/EC) Discontinued 20 mg PO daily August 11, 2024 12:00am August 26, 2024 12:42pm Start: 06-23-2024 End: 08-11-2024 Pantoprazole (Protonix) 40 m g tablet,delayed release (DR/EC) Discontinued 20 mg PO daily August 11, 2024 1:54pm August 11, 2024 4:04pm Start: 05-20-2024 End: 06-23-2024 take 1 tablet by mouth twice daily Pantoprazole (Protonix) 40 mg tablet,delayed release (DR/EC) Discontinued 40 mg PO TWICE A DAY 60 June 07, 2024 10:01am June 23, 2024 3:44pm Start: 05-10-2024 End: 05-20-2024 take 1 tablet by mouth once daily Pantoprazole (Protonix) 40 mg tablet,delayed release (DR/EC) Discontinued 40 mg PO DAILY May 10, 2024 12:00am May 20, 2024 3:16pm rosuvastatin calcium 10 mg oral tablet (16 sources) HMG-CoA Reductase Inhibitor Start: 01-08-2024 take 1 tablet by mouth once daily Rosuvastatin 10 mg tablet Active 10 mg PO DAILY January 08, 2024 1:00am Symbicort 160 mcg-4.5 mcg/inh Inhaler (1 source) Start: 10-09-2023 End: 04-06-2024 take 1 dose by inhalation twice daily Symbicort 160 mcg-4.5 mcg/inh Inhaler Dose = 2 puff(s), Inhalation, BID, # 1 EA, 5 Refill(s), Pharmacy: [id number], COPD with asthma, 156, cm, 10/09/23 13:33:00 EST, Height, kg, 10/09/23 13:33:00 EST, Dosing Weight Start Date: 10/09/23 Stop Date: 04/06/24 Status: Ordered Completed/Discontinued Medications Medication Drug Class(es) Dates Sig (Normalized) Sig (Original) 8 hr acetaminophen 650 mg extended release oral tablet (18 sources) Start: 06-25-2018 End: 09-08-2024 take 1 tablet by mouth every six hours as needed for pain Acetaminophen (Tylenol Arthritis Pain) 650 mg tablet extended release Discontinued 650 mg PO EVERY 6 HOURS as needed for Pain June 25, 2018 12:00am September 08, 2024 2:23pm aspirin 81 mg delayed release oral tablet (20 sources) Platelet Aggregation Inhibitor, Nonsteroidal Anti-inflammatory Drug Start: 01-08-2024 End: 05-20-2024 take 1 tablet by mouth once daily Aspirin 81 mg tablet,delayed release (DR/EC) Discontinued 81 mg PO DAILY January 08, 2024 1:00am May 20, 2024 3:15pm Start: 10-09-2023 take 1 mg by mouth once daily aspirin 81 mg oral delayed release tablet mg = tab(s), Oral, qDay, 0 Refill(s) Start Date: 10/09/23 Status: Ordered Start: 08-30-2018 End: 01-08-2024 take 1 tablet by mouth once daily Aspirin 81 MG tablet,chewable Discontinued 81 mg PO DAILY@0800 August 30, 2018 12:00am January 08, 2024 2:44pm Budesonide-Formoterol (16 sources) Corticosteroid, beta2-Adrenergic Agonist Start: 01-08-2024 End: 03-24-2025 Budesonide-Formoterol 160-4.5 mcg/actuation HFA aerosol inhaler Discontinued 2 NMA INHALATION TWICE A DAY January 08, 2024 1:00am March 24, 2025 9:43am Start: 01-08-2024 Budesonide-For moterol 160-4.5 mcg/actuation HFA aerosol inhaler Active 2 NMA INHALATION TWICE A DAY January 08, 2024 1:00am Start: 01-08-2024 take 1 puff(s) by in halation twice daily Budesonide-Formoterol Active 2 PUFF INHALATION TWICE A DAY January 08, 2024 1:00am Start: 01-08-2024 take 1 puff(s) by in halation twice daily Budesonide-Formoterol Active 2 PUFF INHALATION TWICE A DAY January 08, 2024 12:00am Kxborcjsnw-Galnffrk-Lapbvghs ol (1 source) Corticosteroid, beta2-Adrenergic Agonist Start: 03-28-2025 End: 04-04-2025 Vbgvjipdjc-Nyvyrqoc-Sdecuxxe ol (Breztri Aerosphere) 160-9-4.8 mcg/actuation HFA aerosol inhaler Discontinued 2 NMA INHALATION TWICE A DAY 10.7 March 28, 2025 12:00am April 04, 2025 12:21pm cilostazol 50 mg oral tablet (20 sources) Phosphodiesterase 3 Inhibitor Start: 02-11-2024 End: 05-20-2024 t a k e 1 t a b l e t b y m o u t h t w i c e d a i l y Cilostazol 50 mg tablet Discontinued 50 mg PO TWICE A DAY 60 February 11, 2024 12:00am May 20, 2024 3:15pm Start: 01-08-2024 End: 02-11-2024 take 1 tablet by mouth once daily before mealtime Cilostazol 50 mg tablet Discontinued 50 mg PO DAILY January 08, 2024 1:00am February 11, 2024 10:19am take before meals Start: 10-12-2023 End: 12-11-2023 cilostazol 50 mg oral tablet Dose : 50 mg = 1 tab(s), Oral, BIDAC, # 60 tab(s), 1 Refill(s), Pharmacy: [facility], 156, cm, 10/09/23 13:33:00 EST, Height, kg, 10/09/23 13:33:00 EST, Dosing Weight Start Date: 10/12/23 Stop Date: 12/11/23 Status: Ordered lansoprazole 30 mg disintegrating oral tablet (7 sources) Proton Pump Inhibitor Start: 06-06-2024 End: 06-07-2024 take 1 tablet by mouth twice daily Lansoprazole 30 mg tablet,disintegrat, delay rel Discontinued 30 mg PO TWICE A DAY 60 June 06, 2024 12:00am June 07, 2024 10:01am levoFLOXacin 750 mg oral tablet (7 sources) Quinolone Antimicrobial Start: 05-10-2024 End: 05-18-2024 take 1 tablet by mouth once daily Levofloxacin 750 mg Tablet Discontinued 750 mg PO DAILY May 10, 2024 12:00am May 18, 2024 12:29pm magnesium oxide 250 mg oral tablet (7 sources) Start: 06-23-2024 End: 07-11-2024 take 1 tablet by mouth once daily Magnesium Oxide 250 mg magnesium tablet Discontinued 250 mg PO DAILY June 23, 2024 12:00am July 11, 2024 2:53pm meloxicam 15 mg oral tablet (18 sources) Nonsteroidal Anti-inflammatory Drug Start: 06-25-2018 End: 06-25-2018 take 1 tablet by mouth once daily Meloxicam 15 mg tablet Discontinued 15 mg PO daily June 25, 2018 12:00am June 25, 2018 2:19pm potassium chloride 20 meq extended release oral tablet (14 sources) Start: 09-06-2024 End: 09-20-2024 take 1 tablet by mouth once daily Potassium Chloride 20 mEq tablet extended release Discontinued 20 meq PO daily 14 September 06, 2024 12:00am September 19, 2024 1:00am September 20, 2024 1:08am Start: 06-23-2024 End: 07-11-2024 take 1 capsule by mouth once daily Potassium Chloride 10 mEq capsule, extended release Discontinued 10 meq PO DAILY June 23, 2024 12:00am July 11, 2024 2:53pm rivaroxaban 2.5 mg oral tablet (20 sources) Factor Xa Inhibitor Start: 01-22-2024 End: 02-15-2025 take 1 tablet by mouth twice daily Rivaroxaban (Xarelto) 2.5 mg tablet Discontinued 2.5 mg PO TWICE A DAY 60 August 16, 2024 12:00am February 15, 2025 9:16am sucralfate 1000 mg oral tablet (7 sources) Aluminum Complex Start: 05-20-2024 End: 01-02-2025 take 1 tablet by mouth every six hours Sucralfate (Carafate) 1 gram tablet Discontinued 1 g PO EVERY 6 HOURS 120 30 May 20, 2024 12:00am January 02, 2025 12:47pm Problems Active Problems Problem Classification Problem Date Documented Da te Episodic/Chronic Acute and unspecified renal failure (20 sources) Acute renal failure syndrome; Translations: [Acute kidney failure, unspecified] 01-13-2024 Episodic Cardiac and circulatory congenital anomalies (9 sources) Vascular disorder; Translations: [Arteriovenous malformation, site unspecified] Onset: 05-24-2024 06-23-2024 Chronic Cardiac dysrhythmias (7 sources) ECG: sinus tachycardia; Translations: [Tachycardia, unspecified] 05-18-2024 Episodic Chronic kidney disease (17 sources) Chronic kidney disease stage 3; Translations: [Stage 3 chronic kidney disease] Onset: 09-06-2024 02-19-2021 Chronic Chronic kidney disease (2 sources) Chronic kidney disease; Translations: [Chronic kidney disease, stage 3 unspecified] Onset: 07-01-2024 Chronic obstructive pulmonary disease and bronchiectasis (20 sources) Asthma-chronic obstructive pulmonary disease overlap syndrome; Translations: [Chronic obstructive lung disease] Onset: 02-28-2025 10-09-2023 Chronic Comment on above: 09/03/2020 Pulmonary [...] trapping and symmetric reduction in diffusing capacity. Deficiency and other anemia (2 sources) Anemia in chronic kidney disease; Translations: [Anemia in chronic kidney disease] Onset: 09-06-2024 Chronic Deficiency and other anemia (2 sources) Iron deficiency anemia secondary to blood loss (chronic); Translations: [Iron deficiency anemia secondary to blood loss (chronic)] Onset: 02-21-2025 Chronic Deficiency and other anemia (20 sources) Anemia; Translations: [Anemia, unspecified] 10-20-2024 Episodic Deficiency and other anemia (11 sources) Iron deficiency anemia; Translations: [Iron deficiency anemia, unspecified] 09-06-2024 Episodic Comment on above: Got Injectafer weekl y x2. Iron deficiency anemia is resolved. Got Injectafer weekl y x2. Iron deficiency anemia is resolved.Iron profile is normal today. Deficiency and other anemia (2 sources) Iron deficiency anemia, unspecified; Translations: [Iron deficiency anemia, unspecified] Onset: 09-06-2024 Episodic Deficiency and other anemia (2 sources) Anemia, unspecified; Translations: [Anemia, unspecified] Onset: 01-16-2025 Episodic Diseases of white blood cells (8 sources) Leukocytosis; Translations: [Elevated white blood cell count, unspecified] Onset: 07-21-2024 07-21-2024 Chronic Comment on above: Etiology unclear at this time, no abnormal cells. Disorders of lipid metabolism (2 sources) Hyperlipidemia; Translations: [Hyperlipidemia, unspecified] Onset: 02-15-2025 05-21-2020 Chronic Esophageal disorders (13 sources) Esophageal varices; Translations: [Esophageal varices without bleeding] Onset: 03-01-2025 02-15-2025 Chronic Essential hypertension (2 sources) Hypertensive disorder; Translations: [Essential (primary) hypertension] Onset: 02-15-2025 10-12-2023 Chronic Comment on above: 10/09/2023 EKG: [...] carotid. 3. Patent and intergrade vertebrals bilaterally. Fluid and electrolyte disorders (14 sources) Hypokalemia; Translations: [Hypokalemia] 06-23-2024 Episodic Gangrene (20 sources) Atherosclerosis of [place] arteries of extremities with gangrene, left leg; Translations: [Atherosclerosis of [place] artery of left lower extremity with gangrene] 01-11-2024 Chronic Gangrene (20 sources) Gangrenous disorder; Translations: [Gangrene, not elsewhere classified] 01-08-2024 Episodic Gastroduodenal ulcer (except hemorrhage) (20 sources) Gastric ulcer; Translations: [Gastric ulcer, unspecified as acute or chronic, without hemorrhage or perforation] Onset: 01-16-2025 10-20-2024 Chronic Gastrointestinal hemorrhage (1 source) Chronic or unspecified gastric ulcer with hemorrhage; Translations: [Chronic or unspecified gastric ulcer with hemorrhage] Onset: 01-16-2025 Chronic Heart valve disorders (1 source) Pulmonary valve disorder 10-09-2023 Chronic Comment on above: 2020 Lower Ext remity Arterial Exam Without Exercise: INTERPRETATION: 1. Normal bilateral lower extremity ankle-brachial indices with triphasic Doppler waveforms at rest. Volume pulse recording slightly diminished in the left foot at the distal level. Possible temperature variation. Clinical correlation indicated Hypertension with complications and secondary hypertension (1 source) Hypertensive chronic kidney disease with stage 1 through stage 4 chronic kidney disease, or unspecified chronic kidney disease; Translations: [Hypertensive chronic kidney disease with stage 1 through stage 4 chronic kidney disease, or unspecified chronic kidney disease] Onset: 04-17-2025 Chronic Infective arthritis and osteomyelitis (except that caused by tuberculosis or sexually transmitted disease) (20 sources) Osteomyelitis; Translations: [Osteomyelitis, unspecified] 01-15-2024 Chronic Nutritional deficiencies (1 source) Vitamin D deficiency, unspecified; Translations: [Vitamin D deficiency, unspecified] Onset: 02-15-2025 Chronic Occlusion or stenosis of precerebral arteries (18 sources) Bilateral stenosis of carotid arteries; Translations: [Occlusion and stenosis of bilateral carotid arteries] 05-21-2021 Chronic Other aftercare (13 sources) Surgical follow-up; Translations: [Encounter for surgical aftercare following surgery on the circulatory system] 02-11-2024 Episodic Other aftercare (14 sources) Blood transfusion finding; Translations: [Blood transfusion, without reported diagnosis] 05-28-2024 Episodic Other aftercare (7 sources) Long-term current use of anticoagulant; Translations: [senior care (current) use of anticoagulants] 05-28-2024 Episodic Other aftercare (7 sources) Long-term current use of drug therapy; Translations: [director long term care (current) use of antithrombotics/antip latelets] 05-18-2024 Episodic Other aftercare (1 source) Encounter for surgical aftercare following surgery on the circulatory system; Translations: [Encounter for surgical aftercare following surgery on the circulatory system] Onset: 02-23-2025 Episodic Other circulatory disease (18 sources) Peripheral arterial occlusive disease; Translations: [Disorder of arteries and arterioles, unspecified] 10-05-2018 Chronic Other circulatory disease (20 sources) Disorder of arteries and arterioles, unspecified; Translations: [Arterial embolism and thrombosis of lower extremity] Onset: 05-24-2024 01-08-2024 Chronic Other circulatory disease (11 sources) History of arterial bypass of lower limb artery; Translations: [Presence of other vascular implants and grafts] 03-04-2024 Chronic Other circulatory disease (1 source) Presence of other vascular implants and grafts; Translations: [Presence of other vascular implants and grafts] Onset: 06-07-2024 Chronic Other circulatory disease (7 sources) Low blood pressure; Translations: [Hypotension, unspecified] 05-28-2024 Episodic Other circulatory disease (7 sources) Orthostatic hypotension; Translations: [Orthostatic hypotension] 06-03-2024 Episodic Other lower respiratory disease (7 sources) Hypoxia; Translations: [Hypoxemia] 05-18-2024 Episodic Other lower respiratory disease (2 sources) Hypoxemia; Translations: [Hypoxemia] 03-10-2025 Episodic Other nutritional; endocrine; and metabolic disorders (7 sources) Hypomagnesemia; Translations: [Hypomagnesemia] 06-23-2024 Chronic Other nutritional; endocrine; and metabolic disorders (7 sources) Hypocalcemia; Translations: [Hypocalcemia] 06-23-2024 Chronic Other screening for suspected conditions (not mental disorders or infectious disease) (9 sources) Patient encounter status; Translations: [Encounter for screening for malignant neoplasm of respiratory organs] Onset: 09-07-2024 08-16-2024 Episodic Peripheral and visceral atherosclerosis (7 sources) Peripheral vascular disease; Translations: [Peripheral vascular disease, unspecified] 06-08-2024 Chronic Comment on above: S/p R to L fem-fem b ypass 01/21/24 Residual codes; unclassified (18 sources) Tobacco user; Translations: [Tobacco use] 10-05-2018 Episodic Residual codes; unclassified (2 sources) Increased body mass index 08-21-2020 Episodic Residual codes; unclassified (7 sources) Sign; Translations: [Other general symptoms and signs] 05-18-2024 Episodic Screening and history of mental health and substance abuse codes (1 source) Tobacco smoking behavior - finding 08-21-2020 Chronic Shock (7 sources) Hemorrhagic shock; Translations: [Other shock] 05-28-2024 Episodic Substance-related disorders (16 sources) Tobacco dependence caused by cigarettes; Translations: [Nicotine dependence, cigarettes, uncomplicated] Onset: 01-11-2025 01-11-2025 Chronic Unclassified (1 source) Non-smoker 10-09-2023 Unclassified (2 sources) Patient encounter status 10-09-2023 Comment on above: Screening for breast cancer Unclassified (1 source) Acidosis, unspecified; Translations: [Acidosis, unspecified] Onset: 06-07-2024 Past or Other Problems Problem Classification Problem Date Documented Da te Episodic/Chronic Fever of unknown origin (8 sources) Fever; Translations: [Fever, unspecified] Onset: 4 05-18-2024 Episodic Gastrointestinal hemorrhage (20 sources) Acute gastrointestinal hemorrhage; Translations: [Gastrointestinal hemorrhage, unspecified] Onset: 4 06-23-2024 Episodic Noninfectious gastroenteritis (8 sources) Colitis; Translations: [Noninfective gastroenteritis and colitis, unspecified] Onset: 4 05-18-2024 Episodic Other circulatory disease (1 source) Orthostatic hypotension; Translations: [Orthostatic hypotension] Onset: Episodic Other lower respiratory disease (1 source) Hypoxemia; Translations: [Hypoxemia] Onset: 4 Episodic Residual codes; unclassified (1 source) Tobacco use; Translations: [Tobacco use] Onset: 4 Episodic Screening and history of mental health and substance abuse codes (1 source) Personal history of nicotine dependence; Translations: [Personal history of nicotine dependence] Onset: 4 Episodic Unclassified (18 sources) S/P LEFT ARTERIOGRAM 06-07-2022 Comment on above: apll Results Test Name Value Interpretation Reference Range Facility Anion gap in Serum or Plasma Ordered By: Carline Ashley on 04-12-2025 Anion gap [Moles/Vol] 13 mmol/L 03-30 [facility] BUN/creatinine ratioOrdered By: Carline Ashley on 04-12-2025 Urea nitrogen/Creatinine [Mass ratio] 20.0 mg/mg 09-04 [facility] Bilirubin, totalOrdered By: Carline Ashley on 04-12-2025 Bilirubin [Mass/Vol] 0.38 mg/dL 0.00-1.30 [facility] CBC-Complete Blood Cnt No Di ffon 04-12-2025 Erythrocyte distribution width (RBC) [Ratio] 14.1 % Normal 11.6-14.6 [facility] Comment on above: Performed By: #### L 100.0500, L500.4100, L509.1000, L506.1001, L503.6030, L501.5200, L500.4050, L502.0250 ####[facility] [address] [place], [place], [phone] Hematocrit (Bld) [Volume fraction] 40.7 % Normal 37-47 [facility] Comment on above: Performed By: #### L 100.0500, L500.4100, L509.1000, L506.1001, L503.6030, L501.5200, L500.4050, L502.0250 ####[facility] [address] [place], [address] Hemoglobin (Bld) [Mass/Vol] 12.6 g/dL Normal 12.0-15.0 [facility] Comment on above: Performed By: #### L 100.0500, L500.4100, L509.1000, L506.1001, L503.6030, L501.5200, L500.4050, L502.0250 ####[facility] [address] [place], [address] MCH (RBC) [Entitic mass] 27.3 pg Normal 27.0-32.0 [facility] Comment on above: Performed By: #### L 100.0500, L500.4100, L509.1000, L506.1001, L503.6030, L501.5200, L500.4050, L502.0250 ####[facility] [address] [place], [address] MCHC (RBC) [Mass/Vol] 31.0 g/dL Low 32-36 [facility] Comment on above: Performed By: #### L 100.0500, L500.4100, L509.1000, L506.1001, L503.6030, L501.5200, L500.4050, L502.0250 ####[facility] [address] [place], [address] MCV (RBC) [Entitic vol] 88.1 fL Normal 81-99 [facility] Comment on above: Performed By: #### L 100.0500, L500.4100, L509.1000, L506.1001, L503.6030, L501.5200, L500.4050, L502.0250 ####[facility] [address] [place], [address] Platelet mean volume (Bld) [Entitic vol] 10.5 fL Normal 6.2-12.0 [facility] Comment on above: Performed By: #### L 100.0500, L500.4100, L509.1000, L506.1001, L503.6030, L501.5200, L500.4050, L502.0250 ####[facility] [address] [place], [address] Platelets (Bld) [#/Vol] 302 10*3/uL Normal 150-450 [facility] Comment on above: Performed By: #### L 100.0500, L500.4100, L509.1000, L506.1001, L503.6030, L501.5200, L500.4050, L502.0250 ####[facility] [address] [place], [address] RBC (Bld) [#/Vol] 4.62 10*6/uL Normal 4.2-5.4 [facility] Comment on above: Performed By: #### L 100.0500, L500.4100, L509.1000, L506.1001, L503.6030, L501.5200, L500.4050, L502.0250 ####[facility] [address] [place], [address] RDW SD 45.6 fl High 35.1-43.9 [facility] Comment on above: Performed By: #### L 100.0500, L500.4100, L509.1000, L506.1001, L503.6030, L501.5200, L500.4050, L502.0250 ####[facility] [address] [place], [address] WBC (Bld) [#/Vol] 9.0 10*3/uL Normal 4.4-11.0 [facility] Comment on above: Performed By: #### L 100.0500, L500.4100, L509.1000, L506.1001, L503.6030, L501.5200, L500.4050, L502.0250 ####[facility] [address] [place], [address] Calculated very low density lipoprotein (VLDL) cholesterol measurementOrdered By: Carline Ashley on 04-12-2025 Calculated very low density lipoprotein (VLDL) cholesterol measurement 20 mg/dL 5-40 [facility] Carbon dioxide, total [Moles /volume] in Central venous bloodOrdered By: Carline Ashley on 04-12-2025 CO2 [Moles/Vol] 28.1 mmol/L 21.0-32.0 [facility] Chloride assayOrdered By: Nieves Ashley on 04-12-2025 Chloride [Moles/Vol] 99 mmol/L 98-108 [facility] Comprehensive Metabolic Prof ilon 04-12-2025 Albumin [Mass/Vol] 4.4 g/dL Normal 3.4-4.8 [facility] Comment on above: Performed By: #### L 100.0500, L500.4100, L509.1000, L506.1001, L503.6030, L501.5200, L500.4050, L502.0250 ####[facility] [address] [place], [place], [phone] Albumin/Globulin [Mass ratio] 1.6 {ratio} Normal 0.9-2.4 [facility] Comment on above: Performed By: #### L 100.0500, L500.4100, L509.1000, L506.1001, L503.6030, L501.5200, L500.4050, L502.0250 ####[facility] [address] [place], [address] ALK PHOS 76 U/L Normal 35-104 [facility] Comment on above: Performed By: #### L 100.0500, L500.4100, L509.1000, L506.1001, L503.6030, L501.5200, L500.4050, L502.0250 ####[facility] [address] [place], [address] ALT [Catalytic activity/Vol] 11 U/L Normal <=34 [facility] Comment on above: Performed By: #### L 100.0500, L500.4100, L509.1000, L506.1001, L503.6030, L501.5200, L500.4050, L502.0250 ####[facility] [address] [place], [address] AST [Catalytic activity/Vol] 15 U/L Normal <=31 [facility] Comment on above: Performed By: #### L 100.0500, L500.4100, L509.1000, L506.1001, L503.6030, L501.5200, L500.4050, L502.0250 ####[facility] [address] [place], [address] Bilirubin [Mass/Vol] 0.38 mg/dL Normal 0.00-1.30 [facility] Comment on above: Performed By: #### L 100.0500, L500.4100, L509.1000, L506.1001, L503.6030, L501.5200, L500.4050, L502.0250 ####[facility] [address] [place], [address] BUN/CRE 20.0 RATIO Normal 10-20 [facility] Comment on above: Performed By: #### L 100.0500, L500.4100, L509.1000, L506.1001, L503.6030, L501.5200, L500.4050, L502.0250 ####[facility] [address] [place], [address] Calcium [Mass/Vol] 9.7 mg/dL Normal 7.6-11.0 [facility] Comment on above: Performed By: #### L 100.0500, L500.4100, L509.1000, L506.1001, L503.6030, L501.5200, L500.4050, L502.0250 ####[facility] [address] [place], [address] Chloride [Moles/Vol] 99 mmol/L Normal 98-108 [facility] Comment on above: Performed By: #### L 100.0500, L500.4100, L509.1000, L506.1001, L503.6030, L501.5200, L500.4050, L502.0250 ####[facility] [address] [place], [address] CO2 [Moles/Vol] 28.1 mmol/L Normal 21.0-32.0 [facility] Comment on above: Performed By: #### L 100.0500, L500.4100, L509.1000, L506.1001, L503.6030, L501.5200, L500.4050, L502.0250 ####[facility] [address] [place], [place], [phone](103) Creatinine [Mass/Vol] 0.65 mg/dL Low 0.70-1.20 [facility] Comment on above: Performed By: #### L 100.0500, L500.4100, L509.1000, L506.1001, L503.6030, L501.5200, L500.4050, L502.0250 ####[facility] [address] [place], [place], [phone]) GAP 13 Normal 5-15 [facility] Comment on above: Performed By: #### L 100.0500, L500.4100, L509.1000, L506.1001, L503.6030, L501.5200, L500.4050, L502.0250 ####[facility] [address] [place], [place], [phone] GFR/1.73 sq M.predicted among non-blacks MDRD (S/P/Bld) [Vol rate/Area] 97 mL/min/{1.73_m2} Normal >60 [facility] Comment on above: Result Comment: mL/m in/1.73m2 CKD-EPI Creatinine Equation (2020) Performed By: #### L 100.0500, L500.4100, L509.1000, L506.1001, L503.6030, L501.5200, L500.4050, L502.0250 ####[facility] [address] [place], [address] Globulin (S) [Mass/Vol] 2.7 g/dL Normal 2.2-4.2 [facility] Comment on above: Performed By: #### L 100.0500, L500.4100, L509.1000, L506.1001, L503.6030, L501.5200, L500.4050, L502.0250 ####[facility] [address] [place], [address] Glucose [Mass/Vol] 89 mg/dL Normal 70-99 [facility] Comment on above: Performed By: #### L 100.0500, L500.4100, L509.1000, L506.1001, L503.6030, L501.5200, L500.4050, L502.0250 ####[facility] [address] [place], [address] Potassium [Moles/Vol] 3.9 mmol/L Normal 3.3-5.1 [facility] Comment on above: Performed By: #### L 100.0500, L500.4100, L509.1000, L506.1001, L503.6030, L501.5200, L500.4050, L502.0250 ####[facility] [address] [place], [address] Sodium [Moles/Vol] 139 mmol/L Normal 133-145 [facility] Comment on above: Performed By: #### L 100.0500, L500.4100, L509.1000, L506.1001, L503.6030, L501.5200, L500.4050, L502.0250 ####[facility] [address] [place], [address] T PROT 7.1 g/dL Normal 5.9-8.4 [facility] Comment on above: Performed By: #### L 100.0500, L500.4100, L509.1000, L506.1001, L503.6030, L501.5200, L500.4050, L502.0250 ####[facility] [address] [place], [address] Urea nitrogen [Mass/Vol] 13 mg/dL Normal 4-19 [facility] Comment on above: Performed By: #### L 100.0500, L500.4100, L509.1000, L506.1001, L503.6030, L501.5200, L500.4050, L502.0250 ####[facility] [address] [place], [address] Erythrocyte distribution wid th ratioOrdered By: Carline Ashley on 04-12-2025 Erythrocyte distribution width (RBC) [Ratio] 14.1 % 11.6-14.6 [facility] Erythrocyte distribution wid th standard deviationOrdered By: Carline Ashley on 04-12-2025 Erythrocyte distribution width (RBC) [Ratio] 45.6 fl High 35.1-43.9 [facility] Glomerular filtration rate ( GFR) estimation/1.73 sq m using serum, plasma, or whole bOrdered By: Carline Ashley on 04-12-2025 GFR/1.73 sq M.predicted among non-blacks MDRD (S/P/Bld) [Vol rate/Area] 97 mL/min/{1.73_m2} >60 [facility] Comment on above: mL/min/1.73m2 CKD-EP I Creatinine Equation (2020) Hematocrit Auto (Bld) [Volum e fraction]Ordered By: Carline Ashley on 04-12-2025 Hematocrit (Bld) [Volume fraction] 40.7 % 37-47 [facility] Hemoglobin measurementOrdere d By: Carline Wellingtonpkins on 04-12-2025 Hemoglobin (Bld) [Mass/Vol] 12.6 g/dL 12.0-15.0 [facility] Iron measurement (mass/mass) Ordered By: Carline Ashley on 04-12-2025 Iron (Unsp spec) [Mass/Mass] 78 ug/dL 50-170 [facility] Iron+Iron Binding Capacityon 04-12-2025 Iron [Mass/Vol] 78 ug/dL Normal 50-170 [facility] Comment on above: Performed By: #### L 100.0500, L500.4100, L509.1000, L506.1001, L503.6030, L501.5200, L500.4050, L502.0250 ####[facility] [address] [place], [address] IRON SATURATION 21.0 Normal 13-59 [facility] Comment on above: Performed By: #### L 100.0500, L500.4100, L509.1000, L506.1001, L503.6030, L501.5200, L500.4050, L502.0250 ####[facility] [address] [place], [address] TIBC 372 ug/dL Normal 250-450 [facility] Comment on above: Performed By: #### L 100.0500, L500.4100, L509.1000, L506.1001, L503.6030, L501.5200, L500.4050, L502.0250 ####[facility] [address] [place], [address] UIBC 294 ug/dL Normal 228-428 [facility] Comment on above: Performed By: #### L 100.0500, L500.4100, L509.1000, L506.1001, L503.6030, L501.5200, L500.4050, L502.0250 ####[facility] [address] [place], [place], [phone] LDL calc ser/plasOrdered By: Carline Ashley on 04-12-2025 Cholesterol in LDL [Mass/Vol] 96 mg/dL [facility] Comment on above: Zzuctqbzle=090-663 m g/dL & Higher Bvbi=650 mg/dL or greater Laboratory - Chemistry and C hemistry - challengeOrdered By: Carline Ashley on 04-12-2025 AST [Catalytic activity/Vol] 15 U/L <32 [facility] Lipid Profileon 04-12-2025 CHOL:HDL 3.21 Normal [facility] Comment on above: Performed By: #### L 100.0500, L500.4100, L509.1000, L506.1001, L503.6030, L501.5200, L500.4050, L502.0250 ####[facility] [address] [place], [place], [phone] Cholesterol [Mass/Vol] 169 mg/dL Normal <=200 [facility] Comment on above: Result Comment: Chol esterol level, Desirable <200 mg/dLBorderline high cholesterol 200-239 mg/dLHigh cholesterol >=240 mg/dLRecommendations of the NCEP Adult Treatment Panel for thefollowing risk-cutoff thresholds for the [place] Americanpulation. Performed By: #### L 100.0500, L500.4100, L509.1000, L506.1001, L503.6030, L501.5200, L500.4050, L502.0250 ####[facility] [address] [place], [place], [phone] Cholesterol in HDL [Mass/Vol] 53 mg/dL Normal [facility] Comment on above: Result Comment: Mary onal Cholesterol Education Program (NCEP) guidelines:<40 mg/dL: Low HDL-cholesterol (major risk factor for CHD)>= 60 mg/dL: High HDL-cholesterol (negative risk factor forCHD)HDL-cholesterol is affected by a number of factors, e.g.smoking, exercise, hormones, sex and age. Performed By: #### L 100.0500, L500.4100, L509.1000, L506.1001, L503.6030, L501.5200, L500.4050, L502.0250 ####[facility] [address], [address] Cholesterol in LDL [Mass/Vol] 96 mg/dL Normal [facility] Comment on above: Result Comment: Bord itsarj=212-995 mg/dL Higher Ewlm=166 mg/dL or greater Performed By: #### L 100.0500, L500.4100, L509.1000, L506.1001, L503.6030, L501.5200, L500.4050, L502.0250 ####[facility] [address], [address] Cholesterol in VLDL [Mass/Vol] 20 mg/dL Normal 5-40 [facility] Comment on above: Performed By: #### L 100.0500, L500.4100, L509.1000, L506.1001, L503.6030, L501.5200, L500.4050, L502.0250 ####[facility] [address] [place], [address] Triglyceride [Mass/Vol] 102 mg/dL Normal [facility] Comment on above: Result Comment: The drugs N-Acetylcysteine and Metamizole may falselydepress this assay.Normal range: <150 mg/dLBorderline High: 150-199 mg/dLHigh: 200-499 mg/dLVery High: >500 mg/dL Performed By: #### L 100.0500, L500.4100, L509.1000, L506.1001, L503.6030, L501.5200, L500.4050, L502.0250 ####[facility] [address] [place], [address] MCV (mean corpuscular volume ) determinationOrdered By: Carline Ashley on 04-12-2025 MCV (RBC) [Entitic vol] 88.1 fL 81-99 [facility] MR/PAT.ANEon 04-12-2025 MR/PAT.ANE Normal [facility] Magnesiumon 04-12-2025 Magnesium [Mass/Vol] 1.7 mg/dL Normal 1.5-2.2 [facility] Comment on above: Performed By: #### L 100.0500, L500.4100, L509.1000, L506.1001, L503.6030, L501.5200, L500.4050, L502.0250 ####[facility] [address] [place], [address] Magnesium measurement (mass/ volume)Ordered By: Carline Ashley on 04-12-2025 Magnesium (Unsp spec) [Mass/Vol] 1.7 mg/dL 1.5-2.2 [facility] Mean corpuscular hemoglobin (MCH) determinationOrdered By: Carline Ashley on 04-12-2025 MCH (RBC) [Entitic mass] 27.3 pg 27.0-32.0 [facility] Mean corpuscular hemoglobin concentration (MCHC) determinationOrdered By: Carline Ashley on 04-12-2025 MCHC (RBC) [Mass/Vol] 31.0 g/dL Low 32-36 [facility] Mean platelet volume determi nationOrdered By: Carline Ashley on 04-12-2025 Platelet mean volume (Bld) [Entitic vol] 10.5 fL 6.2-12.0 [facility] Microalb:Creat Ratio,Random URon 04-12-2025 Creatinine [Mass/Vol] 35.10 mg/dL Normal 28.00- 217. 00 [facility] Comment on above: Performed By: #### L 100.0500, L500.4100, L509.1000, L506.1001, L503.6030, L501.5200, L500.4050, L502.0250 ####[facility] [address] [place], [address] MALB:CREAT 774.9 mg/g CRE Normal [facility] Comment on above: Performed By: #### L 100.0500, L500.4100, L509.1000, L506.1001, L503.6030, L501.5200, L500.4050, L502.0250 ####[facility] [address] [place], [address] MICROALBUMIN,UR 27.2 mg/L Normal NO RANGE EST. [facility] Comment on above: Performed By: #### L 100.0500, L500.4100, L509.1000, L506.1001, L503.6030, L501.5200, L500.4050, L502.0250 ####[facility] [address] [place], [address] No Panel InformationOrdered By: Carline Ashley on 04-12-2025 Unsaturated Iron Binding Capacity 294 ug/dL 228-428 [facility] PTHINon 04-12-2025 PTH 72 pg/mL High 11-61 [facility] Comment on above: Performed By: #### L 100.0500, L500.4100, L509.1000, L506.1001, L503.6030, L501.5200, L500.4050, L502.0250 ####[facility] [address] [place], [address] Platelet countOrdered By: Nieves Ashley on 04-12-2025 Platelets (Bld) [#/Vol] 302 10*3/uL 150-450 [facility] Potassium measurement (mass/ volume)Ordered By: Carline Ashley on 04-12-2025 Potassium (Unsp spec) [Mass/Vol] 3.9 mmol/L 3.3-5.1 [facility] RBC Auto (Bld) [#/Vol]Ordere d By: Carline Ashley on 04-12-2025 RBC (Bld) [#/Vol] 4.62 10*6/uL 4.2-5.4 [facility] Random urine creatinine rosa urement (mass/volume)Ordered By: Carline Ashley on 04-12-2025 Creatinine Unsp time (U) [Mass/Vol] 35.10 mg/dL 28.00-217. 00 [facility] Screening total cholesterol/ high density lipoprotein (HDL) cholesterol ratioOrdered By: Carline Ashley on 04-12-2025 Cholesterol.total/Choles terol in HDL [Mass ratio] 3.21 {ratio} [facility] Serum creatinine measurement (mass/volume)Ordered By: Carline Ashley on 04-12-2025 Creatinine [Mass/Vol] 0.65 mg/dL Low 0.70-1.20 [facility] Serum globulin measurementOr dered By: Carline Ashley on 04-12-2025 Globulin (S) [Mass/Vol] 2.7 g/dL 2.2-4.2 [facility] Serum glucose measurement (m ass/volume)Ordered By: Carline Ashley on 04-12-2025 Glucose [Mass/Vol] 89 mg/dL 70-99 [facility] Serum or plasma alanine marley otransferase (ALT) measurementOrdered By: Carline Ashley on 04-12-2025 ALT [Catalytic activity/Vol] 11 U/L <35 [facility] Serum or plasma albumin rosa urement (mass/volume)Ordered By: Carline Ashley on 04-12-2025 Albumin [Mass/Vol] 4.4 g/dL 3.4-4.8 [facility] Serum or plasma albumin/glob ulin mass ratioOrdered By: Carline Ashley on 04-12-2025 Albumin/Globulin [Mass ratio] 1.6 {ratio} 0.9-2.4 [facility] Serum or plasma alkaline yosvany sphatase measurementOrdered By: Carline Ashley on 04-12-2025 ALP [Catalytic activity/Vol] 76 U/L 35-104 [facility] Serum or plasma calcium rosa urement (mass/volume)Ordered By: Carline Ashley on 04-12-2025 Calcium [Mass/Vol] 9.7 mg/dL 7.6-11.0 [facility] Serum or plasma cholesterol in HDL measurement (mass/volume)Ordered By: Carline Ashley on 05-28-2025 Cholesterol in HDL [Mass/Vol] 53 mg/dL >40 [facility] Comment on above: National Cholesterol Education Program (NCEP) guidelines:<40 mg/dL: Low HDL-cholesterol (major risk factor for CHD)>= 60 mg/dL: High HDL-cholesterol (negative risk factor for CHD)HDL-cholesterol is affected by a number of factors, e.g. smoking, exercise, hormones, sex and age. Serum or plasma cholesterol measurement (mass/volume)Ordered By: Carline Ashley on 04-12-2025 Cholesterol [Mass/Vol] 169 mg/dL <201 [facility] Comment on above: Cholesterol level, D esirable <200 mg/dLBorderline high cholesterol 200-239 mg/dLHigh cholesterol >=240 mg/dLRecommendations of the NCEP Adult Treatment Panel for the following risk-cutoff thresholds for the [place] population. Serum or plasma iron saturat ion measurement (mass fraction)Ordered By: Carline Ashley on 04-12-2025 Iron saturation [Mass fraction] 21.0 % 13-59 [facility] Serum or plasma urea nitroge n measurement (mass/volume)Ordered By: Carline Ashley on 04-12-2025 Urea nitrogen [Mass/Vol] 13 mg/dL 4-19 [facility] Sodium levelOrdered By: Da Ashley on 04-12-2025 Sodium [Moles/Vol] 139 mmol/L 133-145 [facility] Total proteinOrdered By: Joshua Ashley on 04-12-2025 Protein [Mass/Vol] 7.1 g/dL 5.9-8.4 [facility] Triglycerides measurementOrd ered By: Carline Ashley on 04-12-2025 Triglyceride [Mass/Vol] 102 mg/dL <199 [facility] Comment on above: The drugs N-Acetylcy steine and Metamizole may falsely depress this assay. Normal range: <150 mg/dLBorderline High: 150-199 mg/dLHigh: 200-499 mg/dLVery High: >500 mg/dL Urine albumin measurement wi th detection limit of 20 mg/L or less (mass/volume)Ordered By: Carline Ashley on 04-12-2025 Albumin DL <= 20 mg/L (U) [Mass/Vol] 27.2 mg/L NO RANGE EST. [facility] Vitamin D,25 Hydroxyon 04-12 Vitamin D 25-OH 44.4 ng/mL Normal 30-100 [facility] Comment on above: Result Comment: [place] min D StatusDeficiency: <20 ng/mL (50nmol/L)Insufficiency: 20-30 ng/mL (50-75 nmol/L)Sufficiency: 30-100 ng/mL (75-250 nmol/L)Toxicity: >100 ng/mL (>250 nmol/L) Performed By: #### L 100.0500, L500.4100, L509.1000, L506.1001, L503.6030, L501.5200, L500.4050, L502.0250 ####[facility] [address] [place], [address] White blood cell (WBC) count Ordered By: Carline Ashley on 04-12-2025 WBC (Bld) [#/Vol] 9.0 10*3/uL 4.4-11.0 [facility] Pulmonary Visit Reporton Pulmonary Visit Report Normal [facility] ABD Limited w/ Elastographyo n 02-24-2025 ABD Limited w/ Elastography Normal [facility] 6 Minute Walk Teston 025 6 Minute Walk Test Normal [facility] Absolute lymphocyte countOrd ered By: Joseph Torres on 02-21-2025 Lymphocytes Auto (Unsp spec) [#/Vol] 1.36 10*3/uL 0.83-4.51 [facility] Absolute neutrophil countOrd ered By: Joseph Torres on 02-21-2025 Neutrophils (Bld) [#/Vol] 6.3 10*3/uL 2.0-7.7 [facility] Anion gap in Serum or Plasma Ordered By: Joseph Torres on 02-21-2025 Anion gap [Moles/Vol] 12 mmol/L 5-15 [facility] Automated lymphocyte count a s percentage of total leukocytesOrdered By: Joseph Torres on 02-21-2025 Lymphocytes/100 WBC Auto (Unsp spec) 15.8 % Low 19-41 [facility] BUN/creatinine ratioOrdered By: Joseph Torres on 02-21-2025 Urea nitrogen/Creatinine [Mass ratio] 15.8 mg/mg 10-20 [facility] Basophil percentageOrdered B y: Joseph Torres on 02-21-2025 Basophils/100 WBC (Bld) 0.6 % 0-1 [facility] Bilirubin, totalOrdered By: Joseph Torres on 02-21-2025 Bilirubin [Mass/Vol] 0.36 mg/dL 0.00-1.30 [facility] CBC W/Diff, Automatedon Absolute Lymph 1.36 X10 3/uL Normal 0.83-4.51 [facility] Comment on above: Performed By: #### L 503.6550, L101.9900, L503.6030, L501.6710, L504.2610, L100.0100, L500.4050 ####[facility] [address] [place], [address] Absolute Neut 6.3 X10 3/uL Normal 2.0-7.7 [facility] Comment on above: Performed By: #### L 503.6550, L101.9900, L503.6030, L501.6710, L504.2610, L100.0100, L500.4050 ####[facility] [address] [place], [address] Basophils/100 WBC (Bld) 0.6 % Normal 0-1 [facility] Comment on above: Performed By: #### L 503.6550, L101.9900, L503.6030, L501.6710, L504.2610, L100.0100, L500.4050 ####[facility] [address] [place], [address] Eosinophils/100 WBC (Bld) 1.7 % Normal 0-5 [facility] Comment on above: Performed By: #### L 503.6550, L101.9900, L503.6030, L501.6710, L504.2610, L100.0100, L500.4050 ####[facility] [address] [place], [address] Erythrocyte distribution width (RBC) [Ratio] 14.6 % Normal 11.6-14.6 [facility] Comment on above: Performed By: #### L 503.6550, L101.9900, L503.6030, L501.6710, L504.2610, L100.0100, L500.4050 ####[facility] [address] [place], [address] Hematocrit (Bld) [Volume fraction] 42.7 % Normal 37-47 [facility] Comment on above: Performed By: #### L 503.6550, L101.9900, L503.6030, L501.6710, L504.2610, L100.0100, L500.4050 ####[facility] [address] [place], [address] Hemoglobin (Bld) [Mass/Vol] 13.0 g/dL Normal 12.0-15.0 [facility] Comment on above: Performed By: #### L 503.6550, L101.9900, L503.6030, L501.6710, L504.2610, L100.0100, L500.4050 ####[facility] [address] [place], [address] IG% 0.500 Normal 0.0-0.9 [facility] Comment on above: Result Comment: IG% - Immature Granulocytes (promyelocytes, myelocytes andmetamyelocytes) > 1% indicates that a LEFT SHIFT is Present. Performed By: #### L 503.6550, L101.9900, L503.6030, L501.6710, L504.2610, L100.0100, L500.4050 ####[facility] [address] [place], [address] Lymphocytes/100 WBC (Bld) 15.8 % Low 19-41 [facility] Comment on above: Performed By: #### L 503.6550, L101.9900, L503.6030, L501.6710, L504.2610, L100.0100, L500.4050 ####[facility] [address] [place], [address] MCH (RBC) [Entitic mass] 27.4 pg Normal 27.0-32.0 [facility] Comment on above: Performed By: #### L 503.6550, L101.9900, L503.6030, L501.6710, L504.2610, L100.0100, L500.4050 ####[facility] [address] [place], [address] MCHC (RBC) [Mass/Vol] 30.4 g/dL Low 32-36 [facility] Comment on above: Performed By: #### L 503.6550, L101.9900, L503.6030, L501.6710, L504.2610, L100.0100, L500.4050 ####[facility] [address] [place], [address] MCV (RBC) [Entitic vol] 89.9 fL Normal 81-99 [facility] Comment on above: Performed By: #### L 503.6550, L101.9900, L503.6030, L501.6710, L504.2610, L100.0100, L500.4050 ####[facility] [address] [place], [address] Monocytes/100 WBC (Bld) 8.5 % Normal 0-10 [facility] Comment on above: Performed By: #### L 503.6550, L101.9900, L503.6030, L501.6710, L504.2610, L100.0100, L500.4050 ####[facility] [address] [place], [address] Neutrophils/100 WBC (Bld) 72.9 % High 47-70 [facility] Comment on above: Performed By: #### L 503.6550, L101.9900, L503.6030, L501.6710, L504.2610, L100.0100, L500.4050 ####[facility] [address] [place], [address] Nucleated RBC (Bld) [#/Vol] 0 10*3/uL Normal 0-5 [facility] Comment on above: Performed By: #### L 503.6550, L101.9900, L503.6030, L501.6710, L504.2610, L100.0100, L500.4050 ####[facility] [address] [place], [address] Platelet mean volume (Bld) [Entitic vol] 9.9 fL Normal 6.2-12.0 [facility] Comment on above: Performed By: #### L 503.6550, L101.9900, L503.6030, L501.6710, L504.2610, L100.0100, L500.4050 ####[facility] [address] [place], [address] Platelets (Bld) [#/Vol] 277 10*3/uL Normal 150-450 [facility] Comment on above: Performed By: #### L 503.6550, L101.9900, L503.6030, L501.6710, L504.2610, L100.0100, L500.4050 ####[facility] [address] [place], [address] RBC (Bld) [#/Vol] 4.75 10*6/uL Normal 4.2-5.4 [facility] Comment on above: Performed By: #### L 503.6550, L101.9900, L503.6030, L501.6710, L504.2610, L100.0100, L500.4050 ####[facility] [address] [place], [place], [id number] RDW SD 47.8 fl High 35.1-43.9 [facility] Comment on above: Performed By: #### L 503.6550, L101.9900, L503.6030, L501.6710, L504.2610, L100.0100, L500.4050 ####[facility] [address] [place], [address] WBC (Bld) [#/Vol] 8.6 10*3/uL Normal 4.4-11.0 [facility] Comment on above: Performed By: #### L 503.6550, L101.9900, L503.6030, L501.6710, L504.2610, L100.0100, L500.4050 ####[facility] [address] [place], [address] CRPon 02-21-2025 C-REACTIVE PROT < 3.00 Normal 0.0-3.0 [facility] Comment on above: Performed By: #### L 503.6550, L101.9900, L503.6030, L501.6710, L504.2610, L100.0100, L500.4050 ####[facility] [address] [place], [place], [id number] CRP [Mass/Vol]Ordered By: Romi Torres on 02-21-2025 C-Reactive Protein Extended Range < 3.00 mg/L 0.0-3.0 [facility] Calculated total iron bindin g capacityOrdered By: Joseph Torres on 02-21-2025 Total Iron Binding Capacity 342 ug/dL 250-450 [facility] Carbon dioxide, total [Moles /volume] in Central venous bloodOrdered By: Joseph Torres on 02-21-2025 CO2 [Moles/Vol] 29.9 mmol/L 21.0-32.0 [facility] Chloride assayOrdered By: Romi Torres on 02-21-2025 Chloride [Moles/Vol] 100 mmol/L 98-108 [facility] Comprehensive Metabolic Prof ilon 02-21-2025 Albumin [Mass/Vol] 4.3 g/dL Normal 3.4-4.8 [facility] Comment on above: Performed By: #### L 503.6550, L101.9900, L503.6030, L501.6710, L504.2610, L100.0100, L500.4050 ####[facility] [address] [place], [address] Albumin/Globulin [Mass ratio] 1.5 {ratio} Normal 0.9-2.4 [facility] Comment on above: Performed By: #### L 503.6550, L101.9900, L503.6030, L501.6710, L504.2610, L100.0100, L500.4050 ####[facility] [address] [place], [address] ALK PHOS 68 U/L Normal 35-104 [facility] Comment on above: Performed By: #### L 503.6550, L101.9900, L503.6030, L501.6710, L504.2610, L100.0100, L500.4050 ####[facility] [address] [place], [address] ALT [Catalytic activity/Vol] 10 U/L Normal <=34 [facility] Comment on above: Performed By: #### L 503.6550, L101.9900, L503.6030, L501.6710, L504.2610, L100.0100, L500.4050 ####[facility] [address] [place], [address] AST [Catalytic activity/Vol] 14 U/L Normal <=31 [facility] Comment on above: Performed By: #### L 503.6550, L101.9900, L503.6030, L501.6710, L504.2610, L100.0100, L500.4050 ####[facility] [address] [place], [address] Bilirubin [Mass/Vol] 0.36 mg/dL Normal 0.00-1.30 [facility] Comment on above: Performed By: #### L 503.6550, L101.9900, L503.6030, L501.6710, L504.2610, L100.0100, L500.4050 ####[facility] [address] [place], [address] BUN/CRE 15.8 RATIO Normal 10-20 [facility] Comment on above: Performed By: #### L 503.6550, L101.9900, L503.6030, L501.6710, L504.2610, L100.0100, L500.4050 ####[facility] [address] [place], [address] Calcium [Mass/Vol] 9.4 mg/dL Normal 7.6-11.0 [facility] Comment on above: Performed By: #### L 503.6550, L101.9900, L503.6030, L501.6710, L504.2610, L100.0100, L500.4050 ####[facility] [address] [place], [address] Chloride [Moles/Vol] 100 mmol/L Normal 98-108 [facility] Comment on above: Performed By: #### L 503.6550, L101.9900, L503.6030, L501.6710, L504.2610, L100.0100, L500.4050 ####[facility] [address] [place], [address] CO2 [Moles/Vol] 29.9 mmol/L Normal 21.0-32.0 [facility] Comment on above: Performed By: #### L 503.6550, L101.9900, L503.6030, L501.6710, L504.2610, L100.0100, L500.4050 ####[facility] [address] [place], [address] Creatinine [Mass/Vol] 0.64 mg/dL Low 0.70-1.20 [facility] Comment on above: Performed By: #### L 503.6550, L101.9900, L503.6030, L501.6710, L504.2610, L100.0100, L500.4050 ####[facility] [address] [place], [place], [id number](021) ECRCL 68.84 ml/min Normal 50-250 [facility] Comment on above: Performed By: #### L 503.6550, L101.9900, L503.6030, L501.6710, L504.2610, L100.0100, L500.4050 ####[facility] [address] [place], [place], [id number](212) GAP 12 Normal 5-15 [facility] Comment on above: Performed By: #### L 503.6550, L101.9900, L503.6030, L501.6710, L504.2610, L100.0100, L500.4050 ####[facility] [address] [place], [address] GFR/1.73 sq M.predicted among non-blacks MDRD (S/P/Bld) [Vol rate/Area] 97 mL/min/{1.73_m2} Normal >60 [facility] Comment on above: Result Comment: mL/m in/1.73m2 CKD-EPI Creatinine Equation (2020) Performed By: #### L 503.6550, L101.9900, L503.6030, L501.6710, L504.2610, L100.0100, L500.4050 ####[facility] [address] [place], [address] Globulin (S) [Mass/Vol] 2.8 g/dL Normal 2.2-4.2 [facility] Comment on above: Performed By: #### L 503.6550, L101.9900, L503.6030, L501.6710, L504.2610, L100.0100, L500.4050 ####[facility] [address] [place], [address] Glucose [Mass/Vol] 88 mg/dL Normal 70-99 [facility] Comment on above: Performed By: #### L 503.6550, L101.9900, L503.6030, L501.6710, L504.2610, L100.0100, L500.4050 ####[facility] [address] [place], [address] Potassium [Moles/Vol] 3.9 mmol/L Normal 3.3-5.1 [facility] Comment on above: Performed By: #### L 503.6550, L101.9900, L503.6030, L501.6710, L504.2610, L100.0100, L500.4050 ####[facility] [address] [place], [address] Sodium [Moles/Vol] 142 mmol/L Normal 133-145 [facility] Comment on above: Performed By: #### L 503.6550, L101.9900, L503.6030, L501.6710, L504.2610, L100.0100, L500.4050 ####[facility] [address] [place], [address] T PROT 7.0 g/dL Normal 5.9-8.4 [facility] Comment on above: Performed By: #### L 503.6550, L101.9900, L503.6030, L501.6710, L504.2610, L100.0100, L500.4050 ####[facility] [address] [place], [place], [id number] Urea nitrogen [Mass/Vol] 10 mg/dL Normal 4-19 [facility] Comment on above: Performed By: #### L 503.6550, L101.9900, L503.6030, L501.6710, L504.2610, L100.0100, L500.4050 ####[facility] [address] [place], [place], [address] Eosinophil percentageOrdered By: Joseph Torres on 02-21-2025 Eosinophils/100 WBC (Bld) 1.7 % 0-5 [facility] Erythrocyte Sed Rateon 02-21 SED RATE 19 mm/hr Normal 0-30 [facility] Comment on above: Performed By: #### L 503.6550, L101.9900, L503.6030, L501.6710, L504.2610, L100.0100, L500.4050 ####[facility] [address] [place], [place], [address] Erythrocyte distribution wid th (RBC) [Ratio]Ordered By: Joseph Torres on 02-21-2025 Erythrocyte distribution width (RBC) [Entitic vol] 47.8 fL High 35.1-43.9 [facility] Erythrocyte distribution wid th ratioOrdered By: Joseph Torres on 02-21-2025 Erythrocyte distribution width (RBC) [Ratio] 14.6 % 11.6-14.6 [facility] Erythrocyte distribution wid th standard deviationOrdered By: Joseph Torres on 02-21-2025 Erythrocyte distribution width (RBC) [Ratio] 47.8 fl High 35.1-43.9 [facility] Erythrocyte sedimentation ra teOrdered By: Joseph Torres on 02-21-2025 ESR (Bld) [Velocity] 19 mm/h 0-30 [facility] Estimation of creatinine urban aranceOrdered By: Joseph Torres on 02-21-2025 Estimated Creatinine Clearance Calc 68.84 ml/min 50-250 [facility] Ferritinon 02-21-2025 Ferritin [Mass/Vol] 48 ng/mL Normal 22-378 [facility] Comment on above: Performed By: #### L 503.6550, L101.9900, L503.6030, L501.6710, L504.2610, L100.0100, L500.4050 ####[facility] [address] [place], [place], [address] GFR/1.73 sq M.predicted yudy g non-blacks MDRD (S/P/Bld) [Vol rate/Area]Ordered By: Joseph Torres on 02-21-2025 Estimated GFR (MDRD) Non-Af Amer 97 >60 [facility] Comment on above: mL/min/1.73m2 CKD-EP I Creatinine Equation (2020) Glomerular filtration rate ( GFR) estimation/1.73 sq m using serum, plasma, or whole bOrdered By: Joseph Torres on 02-21-2025 GFR/1.73 sq M.predicted among non-blacks MDRD (S/P/Bld) [Vol rate/Area] 97 mL/min/{1.73_m2} >60 [facility] Comment on above: mL/min/1.73m2 CKD-EP I Creatinine Equation (2020) Hematocrit Auto (Bld) [Volum e fraction]Ordered By: Joseph Torres on 02-21-2025 Hematocrit (Bld) [Volume fraction] 42.7 % 37-47 [facility] Hemoglobin measurementOrdere d By: Joseph Torres on 02-21-2025 Hemoglobin (Bld) [Mass/Vol] 13.0 g/dL 12.0-15.0 [facility] Immature granulocytes/100 WB C Auto (Bld)Ordered By: Joseph Torres on 02-21-2025 Immature granulocytes/100 WBC (Bld) 0.500 % 0.0-0.9 [facility] Comment on above: IG% - Immature Granu locytes (promyelocytes, myelocytes and metamyelocytes) > 1% indicates that a LEFT SHIFT is Present. Iron (Unsp spec) [Mass/Mass] Ordered By: Joseph Torres on 02-21-2025 Iron [Mass/Vol] 70 ug/dL 50-170 [facility] Iron measurement (mass/mass) Ordered By: Joseph Torres on 02-21-2025 Iron (Unsp spec) [Mass/Mass] 70 ug/dL 50-170 [facility] Iron saturation [Mass fracti on]Ordered By: Joseph Torres on 02-21-2025 Iron Saturation 20.5 % 13-59 [facility] Comment on above: Previous reported re sult: 21.0 %Edited by: RICARDO on 02/21/25:1416 AMENDED REPORT 02/21/25 1416 IRON SATURATION previously reported as: 21.0 % Iron+Iron Binding Capacityon 02-21-2025 Iron [Mass/Vol] 70 ug/dL Normal 50-170 [facility] Comment on above: Performed By: #### L 503.6550, L101.9900, L503.6030, L501.6710, L504.2610, L100.0100, L500.4050 ####[facility] [address] [place], [address] UIBC 272 ug/dL Normal 228-428 [facility] Comment on above: Performed By: #### L 503.6550, L101.9900, L503.6030, L501.6710, L504.2610, L100.0100, L500.4050 ####[facility] [address] [place], [address] LDHon 02-21-2025 LDH 141 U/L Normal 84-246 [facility] Comment on above: Order Comment: 1 Performed By: #### L 503.6550, L101.9900, L503.6030, L501.6710, L504.2610, L100.0100, L500.4050 ####[facility] [address] [place], [address] Laboratory - Chemistry and C hemistry - challengeOrdered By: Joseph Torres on 02-21-2025 AST [Catalytic activity/Vol] 14 U/L <32 [facility] Lactate dehydrogenase (LDH) measurementOrdered By: Joseph Torres on 02-21-2025 LDH [Catalytic activity/Vol] 141 U/L 84-246 [facility] Lymphocytes Auto (Unsp spec) [#/Vol]Ordered By: Joseph Torres on 02-21-2025 Lymphocytes (Bld) [#/Vol] 1.36 10*3/uL 0.83-4.51 [facility] Lymphocytes/100 WBC Auto (Un sp spec)Ordered By: Joseph Torres on 02-21-2025 Lymphocytes/100 WBC (Bld) 15.8 % Low 19-41 [facility] MCV (mean corpuscular volume ) determinationOrdered By: Joseph Torres on 02-21-2025 MCV (RBC) [Entitic vol] 89.9 fL 81-99 [facility] Mean corpuscular hemoglobin (MCH) determinationOrdered By: [facility] MCH (RBC) [Entitic mass] 27.4 pg 27.0-32.0 [facility] Mean corpuscular hemoglobin concentration (MCHC) determinationOrdered By: Joseph Torres on 02-21-2025 MCHC (RBC) [Mass/Vol] 30.4 g/dL Low 32-36 [facility] Mean platelet volume determi nationOrdered By: Joseph Torres on 02-21-2025 Platelet mean volume (Bld) [Entitic vol] 9.9 fL 6.2-12.0 [facility] Monocyte percentageOrdered B y: Joseph Torres on 02-21-2025 Monocytes/100 WBC (Bld) 8.5 % 0-10 [facility] Neutrophil percentageOrdered By: Joseph Torres on 02-21-2025 Neutrophils/100 WBC (Bld) 72.9 % High 47-70 [facility] No Panel InformationOrdered By: Joseph Torres on 02-21-2025 Unsaturated Iron Binding Capacity 272 ug/dL 228-428 [facility] Nucleated red blood cell per centageOrdered By: Joseph Torres on 02-21-2025 Nucleated RBC/100 WBC (Bld) [Ratio] 0 % 0-5 [facility] Oncology Visit Reporton 04-0 Oncology Visit Report Normal [facility] Platelet countOrdered By: Romi Torres on 02-21-2025 Platelets (Bld) [#/Vol] 277 10*3/uL 150-450 [facility] Potassium (Unsp spec) [Mass/ Vol]Ordered By: Joseph Torres on 02-21-2025 Potassium [Moles/Vol] 3.9 mmol/L 3.3-5.1 [facility] Potassium measurement (mass/ volume)Ordered By: Joseph Torres on 02-21-2025 Potassium (Unsp spec) [Mass/Vol] 3.9 mmol/L 3.3-5.1 [facility] RBC Auto (Bld) [#/Vol]Ordere d By: Joseph Torres on 02-21-2025 RBC (Bld) [#/Vol] 4.75 10*6/uL 4.2-5.4 [facility] Serum creatinine measurement (mass/volume)Ordered By: Joseph Torres on 02-21-2025 Creatinine [Mass/Vol] 0.64 mg/dL Low 0.70-1.20 [facility] Serum globulin measurementOr dered By: Joseph Torres on 02-21-2025 Globulin (S) [Mass/Vol] 2.8 g/dL 2.2-4.2 [facility] Serum glucose measurement (m ass/volume)Ordered By: Joseph Torres on 02-21-2025 Glucose [Mass/Vol] 88 mg/dL 70-99 [facility] Serum or plasma C reactive p rotein measurement (mass/volume)Ordered By: Joseph Torres on 02-21-2025 CRP [Mass/Vol] mg/L 0.0-3.0 [facility] Serum or plasma alanine marley otransferase (ALT) measurementOrdered By: Joseph Torres on 02-21-2025 ALT [Catalytic activity/Vol] 10 U/L <35 [facility] Serum or plasma albumin rosa urement (mass/volume)Ordered By: Joseph Torres on 02-21-2025 Albumin [Mass/Vol] 4.3 g/dL 3.4-4.8 [facility] Serum or plasma albumin/glob ulin mass ratioOrdered By: Joseph Torres on 02-21-2025 Albumin/Globulin [Mass ratio] 1.5 {ratio} 0.9-2.4 [facility] Serum or plasma alkaline yosvany sphatase measurementOrdered By: Joseph Torres on 02-21-2025 ALP [Catalytic activity/Vol] 68 U/L 35-104 [facility] Serum or plasma calcium rosa urement (mass/volume)Ordered By: Joseph Torres on 02-21-2025 Calcium [Mass/Vol] 9.4 mg/dL 7.6-11.0 [facility] Serum or plasma ferritin xena surement (mass/volume)Ordered By: Joseph Torres on 02-21-2025 Ferritin [Mass/Vol] 48 ng/mL 22-378 [facility] Serum or plasma iron saturat ion measurement (mass fraction)Ordered By: Joseph Torres on 02-21-2025 Iron saturation [Mass fraction] 20.5 % 13-59 [facility] Comment on above: Previous reported re sult: 21.0 %Edited by: RICARDO on 02/21/25:1416 AMENDED REPORT 02/21/25 1416 IRON SATURATION previously reported as: 21.0 % Serum or plasma urea nitroge n measurement (mass/volume)Ordered By: Joseph Torres on 02-21-2025 Urea nitrogen [Mass/Vol] 10 mg/dL 4-19 [facility] Sodium levelOrdered By: Gary Torres on 02-21-2025 Sodium [Moles/Vol] 142 mmol/L 133-145 [facility] Total proteinOrdered By: Elliot Torres on 02-21-2025 Protein [Mass/Vol] 7.0 g/dL 5.9-8.4 [facility] White blood cell (WBC) count Ordered By: Joseph Torres on 02-21-2025 WBC (Bld) [#/Vol] 8.6 10*3/uL 4.4-11.0 [facility] Arterial study reportOrdered By: Selvin Frost on 02-20-2025 Noninvasive arteriosclerosis study report [facility] [address] [place] [address] Lower Ext Art Exam w/ Exercise 02/20/25 1055 MR#: [id number] Acct: [id number] Name: BRENDA MACEDO Rep #:[id number] : 1955 69 From: Selvin Roberts Attending Dr: MAO Brown Stat us: REG CLI Ordering Dr: Katie Retana Date: Location: [facility] Sex: F C Admitted: Reason For Study Reason For Study: PVD Procedure A bilateral lower extremity continuous wave Doppler with analog waveform analysis,segmental pressures,and ankle brachial indexes with exercise. Left Segmental Pressures Left brachial= 132mmHg. Left posterior tibial artery = 134mmHg. Left dorsalis pedis artery = 129mmHg. Left digit = 102 mmHg. Right Segmental Pressures Right brachial= 134mmHg. Right posterior tibial artery = 138mmHg. Right dorsalispedis artery = 155mmHg. Right digit = 105 mmHg. Indices The right ankle brachial index by the posterior tibial artery is 1.03. The rightankle brachial index by the dorsalis pedis is 1.16. The right digital-brachial index is 0.78. The right post exerciseankle brachial index is 0.78. The left ankle brachial index by the posterior tibial artery is 1.00. The left ankle brachial index by the dorsalis pedis is 0.96. The left digital-brachial index is 0.76. The left post exercise ankle brachial index is 0.57. VL/Lower Ext Art Exam w/ Exercise Interpretation Summary Right ALEIDA 1.16, normal. TBI and Doppler/PVR waveforms of the right leg normal atrest. Right lower extremity with abnormal response to exercise and post exercise ALEIDA in the moderate category. Left ALEIDA 1.0, normal. TBI and Doppler/PVR waveforms of the left leg normal at rest. Left lower extremity with abnormal response to exercise and post exercise ALEIDA inthe moderate category. Ordering Physician: Katie Retana Referring Physician: Carline Ashley Performed By: Rosenda Gomez RDCS/RVT 02/20/251931 Date _ Selvin Frost MD CC: WAITER/WAITRESS HEAD-C Carline Ashley; MAO Brown ~ Date Dictated: 02/20/251054 Date Transcribed: 02/20/251931 Construction Engineer: Signed [facility] Work Phone: Lower Ext Art Exam w/ Exerci river 02-20-2025 Lower Ext Art Exam w/ Exercise Normal [facility] Absolute lymphocyte countOrd ered By: Tamar Lacey on 02-15-2025 Lymphocytes Auto (Unsp spec) [#/Vol] 1.83 10*3/uL 0.83-4.51 [facility] Absolute neutrophil countOrd ered By: Tamar Lacey on 02-15-2025 Neutrophils (Bld) [#/Vol] 4.3 10*3/uL 2.0-7.7 [facility] Automated lymphocyte count a s percentage of total leukocytesOrdered By: Tamar Lacey on 02-15-2025 Lymphocytes/100 WBC Auto (Unsp spec) 26.1 % 19-41 [facility] Basophil percentageOrdered B y: Tamar Lacey on 02-15-2025 Basophils/100 WBC (Bld) 0.6 % 0-1 [facility] CBC W/Diff, Automatedon Absolute Lymph 1.83 X10 3/uL Normal 0.83-4.51 [facility] Comment on above: Performed By: #### L 100.0100 ####[facility] [address] [place], [address] Absolute Neut 4.3 X10 3/uL Normal 2.0-7.7 [facility] Comment on above: Performed By: #### L 100.0100 ####[facility] [address] [place], [address] Basophils/100 WBC (Bld) 0.6 % Normal 0-1 [facility] Comment on above: Performed By: #### L 100.0100 ####[facility] [address] [place], [address] Eosinophils/100 WBC (Bld) 2.1 % Normal 0-5 [facility] Comment on above: Performed By: #### L 100.0100 ####[facility] [address] [place], [address] Erythrocyte distribution width (RBC) [Ratio] 14.5 % Normal 11.6-14.6 [facility] Comment on above: Performed By: #### L 100.0100 ####[facility] [address] [place], [address] Hematocrit (Bld) [Volume fraction] 41.9 % Normal 37-47 [facility] Comment on above: Performed By: #### L 100.0100 ####[facility] [address] [place], [address] Hemoglobin (Bld) [Mass/Vol] 12.9 g/dL Normal 12.0-15.0 [facility] Comment on above: Performed By: #### L 100.0100 ####[facility] [address] [place], [address] IG% 0.600 Normal 0.0-0.9 [facility] Comment on above: Result Comment: IG% - Immature Granulocytes (promyelocytes, myelocytes andmetamyelocytes) > 1% indicates that a LEFT SHIFT is Present. Performed By: #### L 100.0100 ####[facility] [address] [place], [address] Lymphocytes/100 WBC (Bld) 26.1 % Normal 19-41 [facility] Comment on above: Performed By: #### L 100.0100 ####[facility] [address] [place], [address] MCH (RBC) [Entitic mass] 27.4 pg Normal 27.0-32.0 [facility] Comment on above: Performed By: #### L 100.0100 ####[facility] [address] [place], [address] MCHC (RBC) [Mass/Vol] 30.8 g/dL Low 32-36 [facility] Comment on above: Performed By: #### L 100.0100 ####[facility] [address] [place], [address] MCV (RBC) [Entitic vol] 89.0 fL Normal 81-99 [facility] Comment on above: Performed By: #### L 100.0100 ####[facility] [address] [place], [address] Monocytes/100 WBC (Bld) 10.0 % Normal 0-10 [facility] Comment on above: Performed By: #### L 100.0100 ####[facility] [address] [place], [address] Neutrophils/100 WBC (Bld) 60.6 % Normal 47-70 [facility] Comment on above: Performed By: #### L 100.0100 ####[facility] [address] [place], [address] Nucleated RBC (Bld) [#/Vol] 0 10*3/uL Normal 0-5 [facility] Comment on above: Performed By: #### L 100.0100 ####[facility] [address] [place], [address] Platelet mean volume (Bld) [Entitic vol] 10.0 fL Normal 6.2-12.0 [facility] Comment on above: Performed By: #### L 100.0100 ####[facility] [address] [place], [address] Platelets (Bld) [#/Vol] 292 10*3/uL Normal 150-450 [facility] Comment on above: Performed By: #### L 100.0100 ####[facility] [address] [place], [address] RBC (Bld) [#/Vol] 4.71 10*6/uL Normal 4.2-5.4 [facility] Comment on above: Performed By: #### L 100.0100 ####[facility] [address] [place], [address] RDW SD 47.5 fl High 35.1-43.9 [facility] Comment on above: Performed By: #### L 100.0100 ####[facility] [address] [place], [address] WBC (Bld) [#/Vol] 7.0 10*3/uL Normal 4.4-11.0 [facility] Comment on above: Performed By: #### L 100.0100 ####[facility] [address] [place], [address] Eosinophil percentageOrdered By: Tamar Lacey on 02-15-2025 Eosinophils/100 WBC (Bld) 2.1 % 0-5 [facility] Erythrocyte distribution wid th (RBC) [Ratio]Ordered By: Tamar Lacey on 02-15-2025 Erythrocyte distribution width (RBC) [Entitic vol] 47.5 fL High 35.1-43.9 [facility] Erythrocyte distribution wid th ratioOrdered By: Tamar Lacey on 02-15-2025 Erythrocyte distribution width (RBC) [Ratio] 14.5 % 11.6-14.6 [facility] Erythrocyte distribution wid th standard deviationOrdered By: Tamar Lacey on 02-15-2025 Erythrocyte distribution width (RBC) [Ratio] 47.5 fl High 35.1-43.9 [facility] Gastroenterology Visit Repor ton 02-15-2025 Gastroenterology Visit Report Normal [facility] Hematocrit Auto (Bld) [Volum e fraction]Ordered By: Tamar Lacey on 02-15-2025 Hematocrit (Bld) [Volume fraction] 41.9 % 37-47 [facility] Hemoglobin measurementOrdere d By: Tamar Lacey on 02-15-2025 Hemoglobin (Bld) [Mass/Vol] 12.9 g/dL 12.0-15.0 [facility] Immature granulocytes/100 WB C Auto (Bld)Ordered By: Tamar Lacey on 02-15-2025 Immature granulocytes/100 WBC (Bld) 0.600 % 0.0-0.9 [facility] Comment on above: IG% - Immature Granu locytes (promyelocytes, myelocytes and metamyelocytes) > 1% indicates that a LEFT SHIFT is Present. Lymphocytes Auto (Unsp spec) [#/Vol]Ordered By: Tamar Lacey on 02-15-2025 Lymphocytes (Bld) [#/Vol] 1.83 10*3/uL 0.83-4.51 [facility] Lymphocytes/100 WBC Auto (Un sp spec)Ordered By: Tamar Lacey on 02-15-2025 Lymphocytes/100 WBC (Bld) 26.1 % 19-41 [facility] MCV (mean corpuscular volume ) determinationOrdered By: Tamar Lacey on 02-15-2025 MCV (RBC) [Entitic vol] 89.0 fL 81-99 [facility] Mean corpuscular hemoglobin (MCH) determinationOrdered By: Tamar Lacey on 02-15-2025 MCH (RBC) [Entitic mass] 27.4 pg 27.0-32.0 [facility] Mean corpuscular hemoglobin concentration (MCHC) determinationOrdered By: Tamar Lacey on 02-15-2025 MCHC (RBC) [Mass/Vol] 30.8 g/dL Low 32-36 [facility] Mean platelet volume determi nationOrdered By: Tamar Lacey on 02-15-2025 Platelet mean volume (Bld) [Entitic vol] 10.0 fL 6.2-12.0 [facility] Monocyte percentageOrdered B y: Tamar Lacey on 02-15-2025 Monocytes/100 WBC (Bld) 10.0 % 0-10 [facility] Neutrophil percentageOrdered By: Tamar Lacey on 02-15-2025 Neutrophils/100 WBC (Bld) 60.6 % 47-70 [facility] Nucleated red blood cell per centageOrdered By: Tamar Lacey on 02-15-2025 Nucleated RBC/100 WBC (Bld) [Ratio] 0 % 0-5 [facility] Platelet countOrdered By: Ana Maria Lacye on 02-15-2025 Platelets (Bld) [#/Vol] 292 10*3/uL 150-450 [facility] RBC Auto (Bld) [#/Vol]Ordere d By: Tamar Lacey on 02-15-2025 RBC (Bld) [#/Vol] 4.71 10*6/uL 4.2-5.4 [facility] White blood cell (WBC) count Ordered By: Tamra Lacey on 02-15-2025 WBC (Bld) [#/Vol] 7.0 10*3/uL 4.4-11.0 [facility] Breast imaging reportOrdered By: Kenan Garvey on 01-26-2025 Study report [facility] Imaging Services [address] [place], [place] [address] SCRN MAMM (CAD)W/ANTOINE BILAT MR#: [id number] Acct: [id number] Name: BRENDA MACEDO Rep #: [id number] : 1955 F 69 From: Travis Garvey MD PCP: ANN MARIE Corona [facility] Study:SCRN MAMM (CAD)W/ANTOINE BILAT Date of Exa m: 01/26/25 Exam# [id number] Ordering Dr: Carline Ashley NP 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 Mother with breast cancer. TECHNIQUE: Bilateral screening digital breast tomosynthesis with 2D and 3D images. Computeraided detection. COMPARISON: Prior exam(s) dating back to January 09, 2021.. FINDINGS: The breasts are heterogeneously dense which may obscure small masses. Stable scattered calcifications bilaterally. No suspicious masses, areas of developing architectural distortion, or suspicious calcifications. There has been no change. BI/SCRN MAMM (CAD)W/ANTOINE BILAT IMPRESSION: BI-RADS 2: BENIGN. RECOMMEND ANNUAL MAMMOGRAPHIC SCREENING. Follow-up code: Routine Follow-up The patient will be notified of the results by letter. Reading Location: [id number] CC: ANN MARIE Ashley ~ Construction Engineer: Signed [facility] SCRN MAMM (CAD)W/ANTOINE BILATo n 01-26-2025 SCRN MAMM (CAD)W/ANTOINE BILAT Normal [facility] Pulmonary Visit Reporton Pulmonary Visit Report Normal [facility] EGD Reporton 01-04-2025 EGD Report Normal [facility] MR/POSTOP.ANEon 01-04-2025 MR/POSTOP.ANE Normal [facility] MR/[id number] 01-04-2025 MR/POSTOPAN2 Normal [facility] MR/PAT.ANEon 01-02-2025 MR/PAT.ANE Normal [facility] 42-OL-Wswvmmw DOrdered By: Flex Ashley on 11-11-2024 Vitamin D 25-Hydroxy 59.1 ng/mL [facility] Comment on above: Vitamin D 25(OH) Sta tus Range Deficiency <20 ng/mL (50nmol/L) Insufficiency 20 - 30 ng/mL (50 - 75 nmol/L) Sufficiency 30 - 100 ng/mL (75 - 250 nmol/L) Toxicity >100 ng/mL (>250 nmol/L) Albumin to globulin ratioOrd ered By: Carline Ashley on 11-11-2024 Albumin/Globulin [Mass ratio] 1.1 {ratio} 0.9-2.4 [facility] Bilirubin, totalOrdered By: Carline Ashley on 11-11-2024 Bilirubin [Mass/Vol] 0.50 mg/dL 0.20-1.00 [facility] Comment on above: For patients on eltr ombopag therapy, use of Dimension [place] TBIL is not recommended. Blood urea nitrogen (BUN)/cr eatinine ratioOrdered By: Carline Ashley on 11-11-2024 Urea nitrogen/Creatinine [Mass ratio] 16.4 mg/mg 10-20 [facility] CBC-Complete Blood Cnt No Di ffon 11-11-2024 Erythrocyte distribution width (RBC) [Ratio] 14.0 % Normal 11.6-14.6 [facility] Comment on above: Performed By: #### L 100.0500, L500.4050, L509.1000, L503.6030, L502.0250, L100.9950, L506.1000, L500.4100 ####[facility] [address] [place], [address] Hematocrit (Bld) [Volume fraction] 43.7 % Normal 37-47 [facility] Comment on above: Performed By: #### L 100.0500, L500.4050, L509.1000, L503.6030, L502.0250, L100.9950, L506.1000, L500.4100 ####[facility] [address] [place], [address] Hemoglobin (Bld) [Mass/Vol] 13.4 g/dL Normal 12.0-15.0 [facility] Comment on above: Performed By: #### L 100.0500, L500.4050, L509.1000, L503.6030, L502.0250, L100.9950, L506.1000, L500.4100 ####[facility] [address] [place], [address] MCH (RBC) [Entitic mass] 26.8 pg Low 27.0-32.0 [facility] Comment on above: Performed By: #### L 100.0500, L500.4050, L509.1000, L503.6030, L502.0250, L100.9950, L506.1000, L500.4100 ####[facility] [address] [place], [address] MCHC (RBC) [Mass/Vol] 30.7 g/dL Low 32-36 [facility] Comment on above: Performed By: #### L 100.0500, L500.4050, L509.1000, L503.6030, L502.0250, L100.9950, L506.1000, L500.4100 ####[facility] [address] [place], [address] MCV (RBC) [Entitic vol] 87.4 fL Normal 81-99 [facility] Comment on above: Performed By: #### L 100.0500, L500.4050, L509.1000, L503.6030, L502.0250, L100.9950, L506.1000, L500.4100 ####[facility] [address] [place], [address] Platelet mean volume (Bld) [Entitic vol] 9.8 fL Normal 6.2-12.0 [facility] Comment on above: Performed By: #### L 100.0500, L500.4050, L509.1000, L503.6030, L502.0250, L100.9950, L506.1000, L500.4100 ####[facility] [address] [place], [address] Platelets (Bld) [#/Vol] 268 10*3/uL Normal 150-450 [facility] Comment on above: Performed By: #### L 100.0500, L500.4050, L509.1000, L503.6030, L502.0250, L100.9950, L506.1000, L500.4100 ####[facility] [address] [place], [address] RBC (Bld) [#/Vol] 5.00 10*6/uL Normal 4.2-5.4 [facility] Comment on above: Performed By: #### L 100.0500, L500.4050, L509.1000, L503.6030, L502.0250, L100.9950, L506.1000, L500.4100 ####[facility] [address] [place], [address] RDW SD 43.8 fl Normal 35.1-43.9 [facility] Comment on above: Performed By: #### L 100.0500, L500.4050, L509.1000, L503.6030, L502.0250, L100.9950, L506.1000, L500.4100 ####[facility] [address] [place], [place], [phone]) WBC (Bld) [#/Vol] 6.4 10*3/uL Normal 4.4-11.0 [facility] Comment on above: Performed By: #### L 100.0500, L500.4050, L509.1000, L503.6030, L502.0250, L100.9950, L506.1000, L500.4100 ####[facility] [address] [place], [place], [id number] Carbon dioxide measurementOr dered By: Carline Ashley on 11-11-2024 CO2 [Moles/Vol] 33.0 mmol/L High 21.0-32.0 [facility] Chloride measurementOrdered By: Carline Ashley on 11-11-2024 Chloride [Moles/Vol] 104 mmol/L 98-107 [facility] Comprehensive Metabolic Prof ilon 11-11-2024 Albumin [Mass/Vol] 3.8 g/dL Normal 3.2-5.0 [facility] Comment on above: Performed By: #### L 100.0500, L500.4050, L509.1000, L503.6030, L502.0250, L100.9950, L506.1000, L500.4100 ####[facility] [address] [place], [address] Albumin/Globulin [Mass ratio] 1.1 {ratio} Normal 0.9-2.4 [facility] Comment on above: Performed By: #### L 100.0500, L500.4050, L509.1000, L503.6030, L502.0250, L100.9950, L506.1000, L500.4100 ####[facility] [address] [place], [address] ALK P 68 U/L Normal 45-117 [facility] Comment on above: Performed By: #### L 100.0500, L500.4050, L509.1000, L503.6030, L502.0250, L100.9950, L506.1000, L500.4100 ####[facility] [address] [place], [address] ALT [Catalytic activity/Vol] 20 U/L Normal 13-56 [facility] Comment on above: Performed By: #### L 100.0500, L500.4050, L509.1000, L503.6030, L502.0250, L100.9950, L506.1000, L500.4100 ####[facility] [address] [place], [address] AST [Catalytic activity/Vol] 10 U/L Low 15-37 [facility] Comment on above: Performed By: #### L 100.0500, L500.4050, L509.1000, L503.6030, L502.0250, L100.9950, L506.1000, L500.4100 ####[facility] [address] [place], [address] Bilirubin [Mass/Vol] 0.50 mg/dL Normal 0.20-1.00 [facility] Comment on above: Result Comment: For patients on eltrombopag therapy, use of Dimension [place] TBIL is not recommended. Performed By: #### L 100.0500, L500.4050, L509.1000, L503.6030, L502.0250, L100.9950, L506.1000, L500.4100 ####[facility] [address] [place], [address] BUN/CRE 16.4 RATIO Normal 10-20 [facility] Comment on above: Performed By: #### L 100.0500, L500.4050, L509.1000, L503.6030, L502.0250, L100.9950, L506.1000, L500.4100 ####[facility] [address] [place], [address] CA,Total 9.5 mg/dL Normal 8.5-10.1 [facility] Comment on above: Performed By: #### L 100.0500, L500.4050, L509.1000, L503.6030, L502.0250, L100.9950, L506.1000, L500.4100 ####[facility] [address] [place], [address] Chloride [Moles/Vol] 104 mmol/L Normal 98-107 [facility] Comment on above: Performed By: #### L 100.0500, L500.4050, L509.1000, L503.6030, L502.0250, L100.9950, L506.1000, L500.4100 ####[facility] [address] [place], [address] CO2 [Moles/Vol] 33.0 mmol/L High 21.0-32.0 [facility] Comment on above: Performed By: #### L 100.0500, L500.4050, L509.1000, L503.6030, L502.0250, L100.9950, L506.1000, L500.4100 ####[facility] [address] [place], [address] Creatinine [Mass/Vol] 0.73 mg/dL Normal 0.55-1.02 [facility] Comment on above: Result Comment: The validity of the calculated GFR GFRAA in patients over70 years has not been determined. Clinical correlation isessential. Performed By: #### L 100.0500, L500.4050, L509.1000, L503.6030, L502.0250, L100.9950, L506.1000, L500.4100 ####[facility] [address] [place], [place], [phone](215) EST GFR - AA 102 mL/min Normal >60 [facility] Comment on above: Result Comment: Afri can [place] GFR Calc Performed By: #### L 100.0500, L500.4050, L509.1000, L503.6030, L502.0250, L100.9950, L506.1000, L500.4100 ####[facility] [address] [place], [place], [id number] GAP 2 Low 5-15 [facility] Comment on above: Performed By: #### L 100.0500, L500.4050, L509.1000, L503.6030, L502.0250, L100.9950, L506.1000, L500.4100 ####[facility] [address] [place], [place], [phone](806) GFR/1.73 sq M.predicted among non-blacks MDRD (S/P/Bld) [Vol rate/Area] 84 mL/min/{1.73_m2} Normal >60 [facility] Comment on above: Result Comment: Non- GFR Calc Performed By: #### L 100.0500, L500.4050, L509.1000, L503.6030, L502.0250, L100.9950, L506.1000, L500.4100 ####[facility] [address] [place], [address] Globulin (S) [Mass/Vol] 3.6 g/dL Normal 2.2-4.2 [facility] Comment on above: Performed By: #### L 100.0500, L500.4050, L509.1000, L503.6030, L502.0250, L100.9950, L506.1000, L500.4100 ####[facility] [address] [place], [address] Glucose [Mass/Vol] 97 mg/dL Normal 74-106 [facility] Comment on above: Performed By: #### L 100.0500, L500.4050, L509.1000, L503.6030, L502.0250, L100.9950, L506.1000, L500.4100 ####[facility] [address] [place], [address] Potassium [Moles/Vol] 3.7 mmol/L Normal 3.5-5.1 [facility] Comment on above: Performed By: #### L 100.0500, L500.4050, L509.1000, L503.6030, L502.0250, L100.9950, L506.1000, L500.4100 ####[facility] [address] [place], [address] Sodium [Moles/Vol] 139 mmol/L Normal 136-145 [facility] Comment on above: Performed By: #### L 100.0500, L500.4050, L509.1000, L503.6030, L502.0250, L100.9950, L506.1000, L500.4100 ####[facility] [address] [place], [address] T PROT 7.4 g/dL Normal 6.4-8.2 [facility] Comment on above: Performed By: #### L 100.0500, L500.4050, L509.1000, L503.6030, L502.0250, L100.9950, L506.1000, L500.4100 ####[facility] [address] [place], [place], [phone] Urea nitrogen [Mass/Vol] 12 mg/dL Normal 7-18 [facility] Comment on above: Performed By: #### L 100.0500, L500.4050, L509.1000, L503.6030, L502.0250, L100.9950, L506.1000, L500.4100 ####[facility] [address] [place], [place], [id number] Erythrocyte distribution wid th ratioOrdered By: Carline Ashley on 11-11-2024 Erythrocyte distribution width (RBC) [Ratio] 14.0 % 11.6-14.6 [facility] Erythrocyte distribution wid th standard deviationOrdered By: Carline Ashley on 11-11-2024 Erythrocyte distribution width (RBC) [Entitic vol] 43.8 fL 35.1-43.9 [facility] Estimated glomerular filtrat ion rate (GFR) AmericanOrdered By: Carline Ashley on 11-11-2024 Estimated GFR (MDRD) Amer 102 mL/min >60 [facility] Comment on above: GFR Calc Glomerular filtration rate ( GFR) estimationOrdered By: Carline Ashley on 11-11-2024 Estimated GFR (MDRD) Non-Af Amer 84 mL/min >60 [facility] Comment on above: Non- GFR Calc Glucose measurementOrdered B y: Carline Ashley on 11-11-2024 Glucose [Mass/Vol] 97 mg/dL 74-106 [facility] Hematocrit Auto (Bld) [Volum e fraction]Ordered By: Carline Ashley on 11-11-2024 Hematocrit (Bld) [Volume fraction] 43.7 % 37-47 [facility] Hemoglobin (Reticulocytes) [ Entitic mass]Ordered By: Carline Ashley on 11-11-2024 Reticulocyte Hemoglobin Equivalent 30.0 pg 30-35 [facility] Hemoglobin measurementOrdere d By: Carline Ashley on 11-11-2024 Hemoglobin (Bld) [Mass/Vol] 13.4 g/dL 12.0-15.0 [facility] High density lipoprotein (HD L) measurementOrdered By: Carline Ashley on 11-11-2024 Cholesterol in HDL [Mass/Vol] 52 mg/dL >40 [facility] Comment on above: The drugs N-Acetylcy steine and Metamizole may falsely depress this assay. Reference Range HDL <40 mg/dL Low HDL Cholesterol HDL >or= 60 mg/dL High HDL Cholesterol Immature reticulocyte fracti onOrdered By: Carline Ashley on 11-11-2024 Immature Reticulocyte Fraction 8.20 % 3.00-15.90 [facility] Intact parathyroid hormone ( iPTH) measurementOrdered By: Carline Ashley on 11-11-2024 Parathyroid Hormone (Intact) 109.8 pg/mL High 18.4-80.1 [facility] Iron (Unsp spec) [Mass/Mass] Ordered By: Carline Ashley on 11-11-2024 Iron [Mass/Vol] 89 ug/dL 50-170 [facility] Iron saturation [Mass fracti on]Ordered By: Carline Ashley on 11-11-2024 Iron Saturation 27.9 % 15.0-55.0 [facility] Iron+Iron Binding Capacityon 11-11-2024 Iron [Mass/Vol] 89 ug/dL Normal 50-170 [facility] Comment on above: Performed By: #### L 100.0500, L500.4050, L509.1000, L503.6030, L502.0250, L100.9950, L506.1000, L500.4100 ####[facility] [address] [place], [place], [id number] IRON SATURATION 27.9 Normal 15.0-55.0 [facility] Comment on above: Performed By: #### L 100.0500, L500.4050, L509.1000, L503.6030, L502.0250, L100.9950, L506.1000, L500.4100 ####[facility] [address] [place], [address] TIBC 319 ug/dL Normal 250-450 [facility] Comment on above: Performed By: #### L 100.0500, L500.4050, L509.1000, L503.6030, L502.0250, L100.9950, L506.1000, L500.4100 ####[facility] [address] [facility] [place], [address] Laboratory - Chemistry and C hemistry - challengeOrdered By: Carline Ashley on 11-11-2024 AST [Catalytic activity/Vol] 10 U/L Low 15-37 [facility] Lipid Profileon 11-11-2024 Cholesterol [Mass/Vol] 143 mg/dL Normal 200 [facility] Comment on above: Result Comment: <200 mg/dL Desirable 200-240 mg/dL Borderline >240 mg/dL High Risk Performed By: #### L 100.0500, L500.4050, L509.1000, L503.6030, L502.0250, L100.9950, L506.1000, L500.4100 ####[facility] [address] [facility] [place], [address] Cholesterol in HDL [Mass/Vol] 52 mg/dL Normal [facility] Comment on above: Result Comment: The drugs N-Acetylcysteine and Metamizole may falselydepress this assay. Reference Range HDL <40 mg/dL Low HDL Cholesterol HDL >or= 60 mg/dL High HDL Cholesterol Performed By: #### L 100.0500, L500.4050, L509.1000, L503.6030, L502.0250, L100.9950, L506.1000, L500.4100 ####[facility] [address] [place], [address] Cholesterol in LDL [Mass/Vol] 72 mg/dL Normal 0-130 [facility] Comment on above: Performed By: #### L 100.0500, L500.4050, L509.1000, L503.6030, L502.0250, L100.9950, L506.1000, L500.4100 ####[facility] [address] [place], [address] Cholesterol in VLDL [Mass/Vol] 19 mg/dL Normal 5-40 [facility] Comment on above: Performed By: #### L 100.0500, L500.4050, L509.1000, L503.6030, L502.0250, L100.9950, L506.1000, L500.4100 ####[facility] [address] [place], [address] Triglyceride [Mass/Vol] 93 mg/dL Normal [facility] Comment on above: Result Comment: The drugs N-Acetylcysteine and Metamizole may falselydepress this assay.Serum Triglycerides Reference Interval Normal <150 mg/dL Borderline high 150 - 199 mg/dL High 200 - 499 mg/dL Very High > or = 500 mg/dL Performed By: #### L 100.0500, L500.4050, L509.1000, L503.6030, L502.0250, L100.9950, L506.1000, L500.4100 ####[facility] [address] [place], [place], [phone]) Low density lipoprotein (LDL ) cholesterol measurementOrdered By: Carline Ashley on 11-11-2024 Cholesterol in LDL [Mass/Vol] 72 mg/dL 0-130 [facility] MCV (mean corpuscular volume ) determinationOrdered By: Carline Ashley on 11-11-2024 MCV (RBC) [Entitic vol] 87.4 fL 81-99 [facility] Mean corpuscular hemoglobin (MCH) determinationOrdered By: Carline Ashley on 11-11-2024 MCH (RBC) [Entitic mass] 26.8 pg Low 27.0-32.0 [facility] Mean corpuscular hemoglobin concentration (MCHC) determinationOrdered By: Carline Ashley on 11-11-2024 MCHC (RBC) [Mass/Vol] 30.7 g/dL Low 32-36 [facility] Mean platelet volume determi nationOrdered By: Carline Ashley on 11-11-2024 Platelet mean volume (Bld) [Entitic vol] 9.8 fL 6.2-12.0 [facility] Microalb:Creat Ratio,Random URon 11-11-2024 Creatinine [Mass/Vol] 55.20 mg/dL Normal NO RAN GE EST. [facility] Comment on above: Performed By: #### L 100.0500, L500.4050, L509.1000, L503.6030, L502.0250, L100.9950, L506.1000, L500.4100 ####[facility] [address] [place], [address] MALB:CRE 55.6 mg/g CRE High <30 mg/g CRE [facility] Comment on above: Performed By: #### L 100.0500, L500.4050, L509.1000, L503.6030, L502.0250, L100.9950, L506.1000, L500.4100 ####[facility] [address] [place], [address] MICROALBUMIN,UR 30.7 mg/L Normal NO RANGE EST. [facility] Comment on above: Performed By: #### L 100.0500, L500.4050, L509.1000, L503.6030, L502.0250, L100.9950, L506.1000, L500.4100 ####[facility] [address] [place], [address] PTHINon 11-11-2024 PTH 109.8 pg/mL High 18.4-80.1 [facility] Comment on above: Performed By: #### L 100.0500, L500.4050, L509.1000, L503.6030, L502.0250, L100.9950, L506.1000, L500.4100 ####[facility] [address] [place], [place], [id number] Platelet countOrdered By: Nieves Ashley on 11-11-2024 Platelets (Bld) [#/Vol] 268 10*3/uL 150-450 [facility] Potassium measurementOrdered By: Carline Ashley on 11-11-2024 Potassium [Moles/Vol] 3.7 mmol/L 3.5-5.1 [facility] RBC Auto (Bld) [#/Vol]Ordere d By: Carline Ashley on 11-11-2024 RBC (Bld) [#/Vol] 5.00 10*6/uL 4.2-5.4 [facility] Random urine microalbumin me asurementOrdered By: Carline Ashley on 11-11-2024 Urine Random Microalbumin 30.7 mg/L NO RANGE EST. [facility] Retic Panelon 11-11-2024 IM RET FRACTION 8.20 Normal 3.00-15.90 [facility] Comment on above: Performed By: #### L 100.0500, L500.4050, L509.1000, L503.6030, L502.0250, L100.9950, L506.1000, L500.4100 ####[facility] [address] [place], [place], [id number] RET-HE 30.0 pg Normal 30-35 [facility] Comment on above: Performed By: #### L 100.0500, L500.4050, L509.1000, L503.6030, L502.0250, L100.9950, L506.1000, L500.4100 ####[facility] [address] [place], [address] Retic Count 1.09 Normal 0.5-1.5 [facility] Comment on above: Performed By: #### L 100.0500, L500.4050, L509.1000, L503.6030, L502.0250, L100.9950, L506.1000, L500.4100 ####[facility] [address] [place], [address] Reticulocytes Auto (Bld) [#/ Vol]Ordered By: Carline Ashley on 11-11-2024 Reticulocyte Count 1.09 % 0.5-1.5 [facility] Serum anion gap measurementO rdered By: Carline Ashley on 11-11-2024 Anion gap [Moles/Vol] 2 mmol/L Low 5-15 [facility] Serum globulin measurementOr dered By: Carline Ashley on 11-11-2024 Globulin (S) [Mass/Vol] 3.6 g/dL 2.2-4.2 [facility] Serum or plasma alanine marley otransferase (ALT) measurementOrdered By: Carline Ashley on 11-11-2024 ALT [Catalytic activity/Vol] 20 U/L 13-56 [facility] Serum or plasma albumin rosa urement (mass/volume)Ordered By: Carline Ashley on 11-11-2024 Albumin [Mass/Vol] 3.8 g/dL 3.2-5.0 [facility] Serum or plasma alkaline yosvany sphatase measurementOrdered By: Carline Ashley on 11-11-2024 ALP [Catalytic activity/Vol] 68 U/L 45-117 [facility] Serum or plasma calcium rosa urement (mass/volume)Ordered By: Carline Ashley on 11-11-2024 Calcium [Mass/Vol] 9.5 mg/dL 8.5-10.1 [facility] Serum or plasma cholesterol measurement (mass/volume)Ordered By: Carline Ashley on 11-11-2024 Cholesterol [Mass/Vol] 143 mg/dL <200 [facility] Comment on above: <200 mg/dL Desirable 200-240 mg/dL Borderline >240 mg/dL High Risk Serum or plasma creatinine m easurement (mass/volume)Ordered By: Carline Ashley on 11-11-2024 Creatinine [Mass/Vol] 0.73 mg/dL 0.55-1.02 [facility] Comment on above: The validity of the calculated GFR & GFRAA in patients over 70 years has not been determined. Clinical correlation is essential. Serum or plasma urea nitroge n measurement (mass/volume)Ordered By: Carline Ashley on 11-11-2024 Urea nitrogen [Mass/Vol] 12 mg/dL 7-18 [facility] Sodium levelOrdered By: Da Ashley on 11-11-2024 Sodium [Moles/Vol] 139 mmol/L 136-145 [facility] TIBCOrdered By: Carline delgado on 11-11-2024 Total Iron Binding Capacity 319 ug/dL 250-450 [facility] Total proteinOrdered By: Joshua Ashley on 11-11-2024 Protein [Mass/Vol] 7.4 g/dL 6.4-8.2 [facility] Triglycerides measurementOrd ered By: Carline Ashley on 11-11-2024 Triglyceride [Mass/Vol] 93 mg/dL <199 [facility] Comment on above: The drugs N-Acetylcy steine and Metamizole may falsely depress this assay.Serum Triglycerides Reference Interval Normal <150 mg/dL Borderline high 150 - 199 mg/dL High 200 - 499 mg/dL Very High > or = 500 mg/dL Urine albumin/creatinine rat io for detection of microalbuminuriaOrdered By: Carline Ashley on 11-11-2024 Urine Microalbumin/Creatinine Ratio 55.6 mg/g CRE High <30 [facility] Urine creatinine measurement (mass/volume)Ordered By: Carline Ashley on 11-11-2024 Creatinine (U) [Mass/Vol] 55.20 mg/dL NO RANGE EST. [facility] Very low density lipoprotein (VLDL) cholesterol measurementOrdered By: Carline Ashley on 11-11-2024 VLDL Cholesterol 19 mg/dL 5-40 [facility] Vitamin D,25 Hydroxyon 11-11 Vitamin D 25-OH 59.1 ng/mL Normal [facility] Comment on above: Result Comment: [place] min D 25(OH) Status Range Deficiency <20 ng/mL (50nmol/L) Insufficiency 20 - 30 ng/mL (50 - 75 nmol/L) Sufficiency 30 - 100 ng/mL (75 - 250 nmol/L) Toxicity >100 ng/mL (>250 nmol/L) Performed By: #### L 100.0500, L500.4050, L509.1000, L503.6030, L502.0250, L100.9950, L506.1000, L500.4100 ####[facility] [address] [place], [address] White blood cell (WBC) count Ordered By: Carline Ashley on 11-11-2024 WBC (Bld) [#/Vol] 6.4 10*3/uL 4.4-11.0 [facility] Absolute neutrophil countOrd ered By: Tamar Lacey on 10-20-2024 Neutrophils (Bld) [#/Vol] 3.6 10*3/uL 2.0-7.7 [facility] Basophil percentageOrdered B y: Tamar Lacey on 10-20-2024 Basophils/100 WBC (Bld) 0.5 % 0-1 [facility] CBC W/Diff, Automatedon Absolute Lymph 1.28 X10 3/uL Normal 0.83-4.51 [facility] Comment on above: Performed By: #### L 100.0100 ####[facility] [address] [place], [address] Absolute Neut 3.6 X10 3/uL Normal 2.0-7.7 [facility] Comment on above: Performed By: #### L 100.0100 ####[facility] [address] [place], [address] Basophils/100 WBC (Bld) 0.5 % Normal 0-1 [facility] Comment on above: Performed By: #### L 100.0100 ####[facility] [address] [place], [address] Eosinophils/100 WBC (Bld) 1.7 % Normal 0-5 [facility] Comment on above: Performed By: #### L 100.0100 ####[facility] [address] [place], [address] Erythrocyte distribution width (RBC) [Ratio] 14.5 % Normal 11.6-14.6 [facility] Comment on above: Performed By: #### L 100.0100 ####[facility] [address] [place], [address] Hematocrit (Bld) [Volume fraction] 43.5 % Normal 37-47 [facility] Comment on above: Performed By: #### L 100.0100 ####[facility] [address] [place], [address] Hemoglobin (Bld) [Mass/Vol] 13.7 g/dL Normal 12.0-15.0 [facility] Comment on above: Performed By: #### L 100.0100 ####[facility] [address] [place], [address] IG% 0.300 Normal 0.0-0.9 [facility] Comment on above: Result Comment: IG% - Immature Granulocytes (promyelocytes, myelocytes andmetamyelocytes) > 1% indicates that a LEFT SHIFT is Present. Performed By: #### L 100.0100 ####[facility] [address] [place], [address] Lymphocytes/100 WBC (Bld) 21.8 % Normal 19-41 [facility] Comment on above: Performed By: #### L 100.0100 ####[facility] [address] [place], [address] MCH (RBC) [Entitic mass] 27.6 pg Normal 27.0-32.0 [facility] Comment on above: Performed By: #### L 100.0100 ####[facility] [address] [place], [address] MCHC (RBC) [Mass/Vol] 31.5 g/dL Low 32-36 [facility] Comment on above: Performed By: #### L 100.0100 ####[facility] [address] [place], [address] MCV (RBC) [Entitic vol] 87.7 fL Normal 81-99 [facility] Comment on above: Performed By: #### L 100.0100 ####[facility] [address] [place], [address] Monocytes/100 WBC (Bld) 14.7 % High 0-10 [facility] Comment on above: Performed By: #### L 100.0100 ####[facility] [address] [place], [address] Neutrophils/100 WBC (Bld) 61.0 % Normal 47-70 [facility] Comment on above: Performed By: #### L 100.0100 ####[facility] [address] [place], [address] Nucleated RBC (Bld) [#/Vol] 0 10*3/uL Normal 0-5 [facility] Comment on above: Performed By: #### L 100.0100 ####[facility] [address] [place], [address] Platelet mean volume (Bld) [Entitic vol] 10.1 fL Normal 6.2-12.0 [facility] Comment on above: Performed By: #### L 100.0100 ####[facility] [address] [place], [address] Platelets (Bld) [#/Vol] 241 10*3/uL Normal 150-450 [facility] Comment on above: Performed By: #### L 100.0100 ####[facility] [address] [place], [address] RBC (Bld) [#/Vol] 4.96 10*6/uL Normal 4.2-5.4 [facility] Comment on above: Performed By: #### L 100.0100 ####[facility] [address] [place], [address] RDW SD 46.6 fl High 35.1-43.9 [facility] Comment on above: Performed By: #### L 100.0100 ####[facility] [address] [place], [address] WBC (Bld) [#/Vol] 5.9 10*3/uL Normal 4.4-11.0 [facility] Comment on above: Performed By: #### L 100.0100 ####[facility] [address] [place], [address] Eosinophil percentageOrdered By: Tamar Lacey on 10-20-2024 Eosinophils/100 WBC (Bld) 1.7 % 0-5 [facility] Erythrocyte distribution wid th ratioOrdered By: Tamar Lacey on 10-20-2024 Erythrocyte distribution width (RBC) [Ratio] 14.5 % 11.6-14.6 [facility] Erythrocyte distribution wid th standard deviationOrdered By: Tamar Lacey on 10-20-2024 Erythrocyte distribution width (RBC) [Entitic vol] 46.6 fL High 35.1-43.9 [facility] Gastroenterology Visit Repor ton 10-20-2024 Gastroenterology Visit Report Normal [facility] Hematocrit Auto (Bld) [Volum e fraction]Ordered By: Tamar Lacey on 10-20-2024 Hematocrit (Bld) [Volume fraction] 43.5 % 37-47 [facility] Hemoglobin measurementOrdere d By: Tamar Lacey on 10-20-2024 Hemoglobin (Bld) [Mass/Vol] 13.7 g/dL 12.0-15.0 [facility] Immature granulocytes/100 WB C Auto (Bld)Ordered By: Tamar Lacey on 10-20-2024 Immature granulocytes/100 WBC (Bld) 0.300 % 0.0-0.9 [facility] Comment on above: IG% - Immature Granu locytes (promyelocytes, myelocytes and metamyelocytes) > 1% indicates that a LEFT SHIFT is Present. Lymphocytes Auto (Unsp spec) [#/Vol]Ordered By: Tamar Lacey on 10-20-2024 Lymphocytes (Bld) [#/Vol] 1.28 10*3/uL 0.83-4.51 [facility] Lymphocytes/100 WBC Auto (Un sp spec)Ordered By: Tamar Lacey on 10-20-2024 Lymphocytes/100 WBC (Bld) 21.8 % 19-41 [facility] MCV (mean corpuscular volume ) determinationOrdered By: Tamar Lacey on 10-20-2024 MCV (RBC) [Entitic vol] 87.7 fL 81-99 [facility] Mean corpuscular hemoglobin (MCH) determinationOrdered By: aTmar Lacey on 10-20-2024 MCH (RBC) [Entitic mass] 27.6 pg 27.0-32.0 [facility] Mean corpuscular hemoglobin concentration (MCHC) determinationOrdered By: Tamar Lacey on 10-20-2024 MCHC (RBC) [Mass/Vol] 31.5 g/dL Low 32-36 [facility] Mean platelet volume determi nationOrdered By: Tamar Lacey on 10-20-2024 Platelet mean volume (Bld) [Entitic vol] 10.1 fL 6.2-12.0 [facility] Monocyte percentageOrdered B y: Tamar Lacey on 10-20-2024 Monocytes/100 WBC (Bld) 14.7 % High 0-10 [facility] Neutrophil percentageOrdered By: Tamar Lacey on 10-20-2024 Neutrophils/100 WBC (Bld) 61.0 % 47-70 [facility] Nucleated red blood cell per centageOrdered By: Tamar Lacey on 10-20-2024 Nucleated RBC/100 WBC (Bld) [Ratio] 0 % 0-5 [facility] Platelet countOrdered By: Ana Maria Lacey on 10-20-2024 Platelets (Bld) [#/Vol] 241 10*3/uL 150-450 [facility] RBC Auto (Bld) [#/Vol]Ordere d By: Tamar Lacey on 10-20-2024 RBC (Bld) [#/Vol] 4.96 10*6/uL 4.2-5.4 [facility] White blood cell (WBC) count Ordered By: Tamar Lacey on 10-20-2024 WBC (Bld) [#/Vol] 5.9 10*3/uL 4.4-11.0 [facility] EGD Reporton 09-12-2024 EGD Report Normal [facility] MR/POSTOP.ANEon 09-12-2024 MR/POSTOP.ANE Normal [facility] MR/[id number] 09-12-2024 MR/POSTOPAN2 Normal [facility] Surgery Specimen Level Akash 09-12-2024 Surgery Specimen Level IV Normal [facility] Comment on above: Performed By: #### P SUIV ####[facility] [address] [place], [address] CBC W/Diff, Automatedon 08-17 Absolute Lymph 1.31 X10 3/uL Normal 0.83-4.51 [facility] Comment on above: Performed By: #### L 100.0100, L100.9950, L501.5200, L500.4050, L101.9900, L503.6030, L501.6710 ####[facility] [address] [place], [address] Absolute Neut 4.8 X10 3/uL Normal 2.0-7.7 [facility] Comment on above: Performed By: #### L 100.0100, L100.9950, L501.5200, L500.4050, L101.9900, L503.6030, L501.6710 ####[facility] [address] [place], [address] Basophils/100 WBC (Bld) 0.7 % Normal 0-1 [facility] Comment on above: Performed By: #### L 100.0100, L100.9950, L501.5200, L500.4050, L101.9900, L503.6030, L501.6710 ####[facility] [address] [place], [address] Eosinophils/100 WBC (Bld) 1.8 % Normal 0-5 [facility] Comment on above: Performed By: #### L 100.0100, L100.9950, L501.5200, L500.4050, L101.9900, L503.6030, L501.6710 ####[facility] [address] [place], [address] Erythrocyte distribution width (RBC) [Ratio] 17.5 % High 11.6-14.6 [facility] Comment on above: Performed By: #### L 100.0100, L100.9950, L501.5200, L500.4050, L101.9900, L503.6030, L501.6710 ####[facility] [address] [place], [address] Hematocrit (Bld) [Volume fraction] 44.7 % Normal 37-47 [facility] Comment on above: Performed By: #### L 100.0100, L100.9950, L501.5200, L500.4050, L101.9900, L503.6030, L501.6710 ####[facility] [address] [place], [address] Hemoglobin (Bld) [Mass/Vol] 13.6 g/dL Normal 12.0-15.0 [facility] Comment on above: Performed By: #### L 100.0100, L100.9950, L501.5200, L500.4050, L101.9900, L503.6030, L501.6710 ####[facility] [address] [place], [address] IG% 0.300 Normal 0.0-0.9 [facility] Comment on above: Result Comment: IG% - Immature Granulocytes (promyelocytes, myelocytes andmetamyelocytes) > 1% indicates that a LEFT SHIFT is Present. Performed By: #### L 100.0100, L100.9950, L501.5200, L500.4050, L101.9900, L503.6030, L501.6710 ####[facility] [address] [place], [address] Lymphocytes/100 WBC (Bld) 19.2 % Normal 19-41 [facility] Comment on above: Performed By: #### L 100.0100, L100.9950, L501.5200, L500.4050, L101.9900, L503.6030, L501.6710 ####[facility] [address] [place], [address] MCH (RBC) [Entitic mass] 27.4 pg Normal 27.0-32.0 [facility] Comment on above: Performed By: #### L 100.0100, L100.9950, L501.5200, L500.4050, L101.9900, L503.6030, L501.6710 ####[facility] [address] [place], [address] MCHC (RBC) [Mass/Vol] 30.4 g/dL Low 32-36 [facility] Comment on above: Performed By: #### L 100.0100, L100.9950, L501.5200, L500.4050, L101.9900, L503.6030, L501.6710 ####[facility] [address] [place], [address] MCV (RBC) [Entitic vol] 90.1 fL Normal 81-99 [facility] Comment on above: Performed By: #### L 100.0100, L100.9950, L501.5200, L500.4050, L101.9900, L503.6030, L501.6710 ####[facility] [address] [place], [address] Monocytes/100 WBC (Bld) 8.5 % Normal 0-10 [facility] Comment on above: Performed By: #### L 100.0100, L100.9950, L501.5200, L500.4050, L101.9900, L503.6030, L501.6710 ####[facility] [address] [place], [address] Neutrophils/100 WBC (Bld) 69.5 % Normal 47-70 [facility] Comment on above: Performed By: #### L 100.0100, L100.9950, L501.5200, L500.4050, L101.9900, L503.6030, L501.6710 ####[facility] [address] [place], [address] Nucleated RBC (Bld) [#/Vol] 0 10*3/uL Normal 0-5 [facility] Comment on above: Performed By: #### L 100.0100, L100.9950, L501.5200, L500.4050, L101.9900, L503.6030, L501.6710 ####[facility] [address] [place], [address] Platelet mean volume (Bld) [Entitic vol] 9.8 fL Normal 6.2-12.0 [facility] Comment on above: Performed By: #### L 100.0100, L100.9950, L501.5200, L500.4050, L101.9900, L503.6030, L501.6710 ####[facility] [address] [place], [address] Platelets (Bld) [#/Vol] 298 10*3/uL Normal 150-450 [facility] Comment on above: Performed By: #### L 100.0100, L100.9950, L501.5200, L500.4050, L101.9900, L503.6030, L501.6710 ####[facility] [address] [place], [address] RBC (Bld) [#/Vol] 4.96 10*6/uL Normal 4.2-5.4 [facility] Comment on above: Performed By: #### L 100.0100, L100.9950, L501.5200, L500.4050, L101.9900, L503.6030, L501.6710 ####[facility] [address] [place], [address] RDW SD 58.0 fl High 35.1-43.9 [facility] Comment on above: Performed By: #### L 100.0100, L100.9950, L501.5200, L500.4050, L101.9900, L503.6030, L501.6710 ####[facility] [address] [place], [address] WBC (Bld) [#/Vol] 6.8 10*3/uL Normal 4.4-11.0 [facility] Comment on above: Performed By: #### L 100.0100, L100.9950, L501.5200, L500.4050, L101.9900, L503.6030, L501.6710 ####[facility] [address] [place], [address] CRPon 09-06-2024 C-REACTIVE PROT < 2.90 Normal 0.0-3.0 [facility] Comment on above: Result Comment: C-Re active Protein (CRP) provides useful information for thediagnosis, therapy and monitoring of inflammatory processesand associated diseases. For the evaluation of Relative Riskfor Cardiovascular Disease, a High Sensitivity CRP (HSCRP)should be ordered. Performed By: #### L 100.0100, L100.9950, L501.5200, L500.4050, L101.9900, L503.6030, L501.6710 ####[facility] [address] [place], [address] Comprehensive Metabolic Prof ilon 09-06-2024 Albumin [Mass/Vol] 3.7 g/dL Normal 3.2-5.0 [facility] Comment on above: Performed By: #### L 100.0100, L100.9950, L501.5200, L500.4050, L101.9900, L503.6030, L501.6710 ####[facility] [address] [place], [address] Albumin/Globulin [Mass ratio] 1.0 {ratio} Normal 0.9-2.4 [facility] Comment on above: Performed By: #### L 100.0100, L100.9950, L501.5200, L500.4050, L101.9900, L503.6030, L501.6710 ####[facility] [address] [place], [address] ALK P 138 U/L High 45-117 [facility] Comment on above: Performed By: #### L 100.0100, L100.9950, L501.5200, L500.4050, L101.9900, L503.6030, L501.6710 ####[facility] [address] [place], [address] ALT [Catalytic activity/Vol] 40 U/L Normal 13-56 [facility] Comment on above: Performed By: #### L 100.0100, L100.9950, L501.5200, L500.4050, L101.9900, L503.6030, L501.6710 ####[facility] [address] [place], [address] AST [Catalytic activity/Vol] 22 U/L Normal 15-37 [facility] Comment on above: Performed By: #### L 100.0100, L100.9950, L501.5200, L500.4050, L101.9900, L503.6030, L501.6710 ####[facility] [address] [place], [address] Bilirubin [Mass/Vol] 0.30 mg/dL Normal 0.20-1.00 [facility] Comment on above: Result Comment: For patients on eltrombopag therapy, use of Dimension [place] TBIL is not recommended. Performed By: #### L 100.0100, L100.9950, L501.5200, L500.4050, L101.9900, L503.6030, L501.6710 ####[facility] [address] [place], [address] BUN/CRE 26.9 RATIO High 10-20 [facility] Comment on above: Performed By: #### L 100.0100, L100.9950, L501.5200, L500.4050, L101.9900, L503.6030, L501.6710 ####[facility] [address] [place], [address] CA,Total 9.4 mg/dL Normal 8.5-10.1 [facility] Comment on above: Performed By: #### L 100.0100, L100.9950, L501.5200, L500.4050, L101.9900, L503.6030, L501.6710 ####[facility] [address] [place], [address] Chloride [Moles/Vol] 104 mmol/L Normal 98-107 [facility] Comment on above: Performed By: #### L 100.0100, L100.9950, L501.5200, L500.4050, L101.9900, L503.6030, L501.6710 ####[facility] [address] [place], [address] CO2 [Moles/Vol] 31.0 mmol/L Normal 21.0-32.0 [facility] Comment on above: Performed By: #### L 100.0100, L100.9950, L501.5200, L500.4050, L101.9900, L503.6030, L501.6710 ####[facility] [address] [place], [address] Creatinine [Mass/Vol] 0.59 mg/dL Normal 0.55-1.02 [facility] Comment on above: Result Comment: The validity of the calculated GFR GFRAA in patients over70 years has not been determined. Clinical correlation isessential. Performed By: #### L 100.0100, L100.9950, L501.5200, L500.4050, L101.9900, L503.6030, L501.6710 ####[facility] [address] [place], [address] ECRCL 68.84 ml/min Normal [facility] Comment on above: Performed By: #### L 100.0100, L100.9950, L501.5200, L500.4050, L101.9900, L503.6030, L501.6710 ####[facility] [address] [place], [address] EST GFR - AA 130 mL/min Normal >60 [facility] Comment on above: Result Comment: Afri can Gabonese GFR Calc Performed By: #### L 100.0100, L100.9950, L501.5200, L500.4050, L101.9900, L503.6030, L501.6710 ####[facility] [address] [place], [address] GAP 5 Normal 5-15 [facility] Comment on above: Performed By: #### L 100.0100, L100.9950, L501.5200, L500.4050, L101.9900, L503.6030, L501.6710 ####[facility] [address] [place], [address] GFR/1.73 sq M.predicted among non-blacks MDRD (S/P/Bld) [Vol rate/Area] 107 mL/min/{1.73_m2} Normal >60 [facility] Comment on above: Result Comment: Non- GFR Calc Performed By: #### L 100.0100, L100.9950, L501.5200, L500.4050, L101.9900, L503.6030, L501.6710 ####[facility] [address] [place], [address] Globulin (S) [Mass/Vol] 3.7 g/dL Normal 2.2-4.2 [facility] Comment on above: Performed By: #### L 100.0100, L100.9950, L501.5200, L500.4050, L101.9900, L503.6030, L501.6710 ####[facility] [address] [place], [address] Glucose [Mass/Vol] 87 mg/dL Normal 74-106 [facility] Comment on above: Performed By: #### L 100.0100, L100.9950, L501.5200, L500.4050, L101.9900, L503.6030, L501.6710 ####[facility] [address] [place], [address] Potassium [Moles/Vol] 3.3 mmol/L Low 3.5-5.1 [facility] Comment on above: Performed By: #### L 100.0100, L100.9950, L501.5200, L500.4050, L101.9900, L503.6030, L501.6710 ####[facility] [address] [place], [address] Sodium [Moles/Vol] 140 mmol/L Normal 136-145 [facility] Comment on above: Performed By: #### L 100.0100, L100.9950, L501.5200, L500.4050, L101.9900, L503.6030, L501.6710 ####[facility] [address] [place], [address] T PROT 7.4 g/dL Normal 6.4-8.2 [facility] Comment on above: Performed By: #### L 100.0100, L100.9950, L501.5200, L500.4050, L101.9900, L503.6030, L501.6710 ####[facility] [address] [place], [address] Urea nitrogen [Mass/Vol] 16 mg/dL Normal 7-18 [facility] Comment on above: Performed By: #### L 100.0100, L100.9950, L501.5200, L500.4050, L101.9900, L503.6030, L501.6710 ####[facility] [address] [place], [address] Erythrocyte Sed Rateon 09-06 SED RATE 25 mm/hr Normal 0-30 [facility] Comment on above: Performed By: #### L 100.0100, L100.9950, L501.5200, L500.4050, L101.9900, L503.6030, L501.6710 ####[facility] [address] [place], [place], [id number] Estimated glomerular filtrat ion rate (GFR) AmericanOrdered By: Joseph Torres on 09-06-2024 Estimated GFR (MDRD) Amer 130 mL/min >60 [facility] Comment on above: GFR Calc Ferritinon 09-06-2024 Ferritin [Mass/Vol] 120 ng/mL Normal 8-252 [facility] Comment on above: Order Comment: 1N Performed By: #### L 504.2610, L503.6550, L503.0105, L501.2300, L506.0250 ####[facility] [address] [place], [address] Folates, (Folic Acid)on 08-17 FOLATES 11.30 ng/mL Normal 3.1-55.4 [facility] Comment on above: Order Comment: 1N Performed By: #### L 504.2610, L503.6550, L503.0105, L501.2300, L506.0250 ####[facility] [address] [place], [address] Folic acid measurementOrdere d By: Joseph Torres on 09-06-2024 Folate 11.30 ng/mL 3.1-55.4 [facility] Hemoglobin (Reticulocytes) [ Entitic mass]Ordered By: Joseph Torres on 09-06-2024 Reticulocyte Hemoglobin Equivalent 29.5 pg Low 30-35 [facility] Immature reticulocyte fracti onOrdered By: Joseph Torres on 09-06-2024 Immature Reticulocyte Fraction 9.60 % 3.00-15.90 [facility] Iron+Iron Binding Capacityon 09-06-2024 Iron [Mass/Vol] 83 ug/dL Normal 50-170 [facility] Comment on above: Performed By: #### L 100.0100, L100.9950, L501.5200, L500.4050, L101.9900, L503.6030, L501.6710 ####[facility] [address] [place], [address] IRON SATURATION 25.7 Normal 15.0-55.0 [facility] Comment on above: Performed By: #### L 100.0100, L100.9950, L501.5200, L500.4050, L101.9900, L503.6030, L501.6710 ####[facility] [address] [place], [address] TIBC 323 ug/dL Normal 250-450 [facility] Comment on above: Performed By: #### L 100.0100, L100.9950, L501.5200, L500.4050, L101.9900, L503.6030, L501.6710 ####[facility] [address] [place], [address] LDHon 09-06-2024 LDH 146 U/L Normal 84-246 [facility] Comment on above: Order Comment: 1N Performed By: #### L 504.2610, L503.6550, L503.0105, L501.2300, L506.0250 ####[facility] [address] [place], [address] Magnesiumon 09-06-2024 Magnesium [Mass/Vol] 1.8 mg/dL Normal 1.6-2.6 [facility] Comment on above: Performed By: #### L 100.0100, L100.9950, L501.5200, L500.4050, L101.9900, L503.6030, L501.6710 ####[facility] [address] [place], [address] Magnesium measurementOrdered By: Joseph Torres on 09-06-2024 Magnesium [Mass/Vol] 1.8 mg/dL 1.6-2.6 [facility] Oncology Visit Reporton 08-17 Oncology Visit Report Normal [facility] Phosphoruson 09-06-2024 Phosphate [Mass/Vol] 2.5 mg/dL Normal 2.5-4.9 [facility] Comment on above: Order Comment: 1N Performed By: #### L 504.2610, L503.6550, L503.0105, L501.2300, L506.0250 ####[facility] [address] [place], [address] Phosphorus measurementOrdere d By: Joseph Torres on 09-06-2024 Phosphorus Level 2.5 mg/dL 2.5-4.9 [facility] Retic Panelon 09-06-2024 IM RET FRACTION 9.60 Normal 3.00-15.90 [facility] Comment on above: Performed By: #### L 100.0100, L100.9950, L501.5200, L500.4050, L101.9900, L503.6030, L501.6710 ####[facility] [address] [place], [address] RET-HE 29.5 pg Low 30-35 [facility] Comment on above: Performed By: #### L 100.0100, L100.9950, L501.5200, L500.4050, L101.9900, L503.6030, L501.6710 ####[facility] [address] [place], [address] Retic Count 1.23 Normal 0.5-1.5 [facility] Comment on above: Performed By: #### L 100.0100, L100.9950, L501.5200, L500.4050, L101.9900, L503.6030, L501.6710 ####[facility] [address] [place], [address] Reticulocyte hemoglobin equi valent (RET-He) measurementOrdered By: Joseph Torres on 09-06-2024 Hemoglobin (Reticulocytes) [Entitic mass] 29.5 pg Low 30-35 [facility] Reticulocytes Auto (Bld) [#/ Vol]Ordered By: Joseph Torres on 09-06-2024 Reticulocyte Count 1.23 % 0.5-1.5 [facility] Reticulocytes/100 RBC (Bld) 1.23 % 0.5-1.5 [facility] Vitamin B12on 09-06-2024 Cobalamin (Vitamin B12) [Mass/Vol] 244 pg/mL Normal 211-911 [facility] Comment on above: Performed By: #### L 504.2610, L503.6550, L503.0105, L501.2300, L506.0250 ####[facility] [address] [place], [place], [address] Vitamin B12 measurementOrder ed By: Brian on 09-06-2024 Cobalamin (Vitamin B12) [Mass/Vol] 244 pg/mL 211-911 [facility] Low Dose CT Lung Screeningon 08-16-[address] Lung Screening Normal [facility] Oncology Visit Reporton Oncology Visit Report Normal [facility] Ankle Brachial Indexon 08-09 Ankle Brachial Index Normal [facility] US Art Duplex Unilat Lower E xton 08-09-2024 US Art Duplex Unilat Lower Ext Normal [facility] Oncology Visit Reporton Oncology Visit Report Normal [facility] Erythropoietinon 07-13-2024 ERYTHROPOIETIN 19.4 mIU/mL High 2.6-18.5 [facility] Comment on above: Result Comment: [employer] DxI 800 Immunoassay SystemValues obtained with different assay methods or kits cannotbe used interchangeably. Results cannot be interpreted asabsolute evidence of the presence or absence of malignantdisease.Performed at: [id number] [id number] Director: Prabhu Sorenson PhD, Phone: [phone] Performed By: #### L 503.6030, L501.6710, L503.0105, L506.0250, L503.6550, L504.2610, L100.0100, L100.9950, L501.2300, L3100.1350, L101.9900, L501.5200, L500.4050 ####[facility] [address] [place], [place], [address] Gastroenterology Visit Repor ton 07-13-2024 Gastroenterology Visit Report Normal [facility] CBC W/Diff, Automatedon 06-17 PATH REV Reviewed Normal [facility] Comment on above: Result Comment: Neut rophilic leukocytosis.Normocytic anemia.Clinical correlation necessary.León Oneil M.D. 07/12/24 AMENDED REPORT 07/12/24 [id number] PATH REV previously reported as: May foll Performed By: #### L 503.6030, L501.6710, L503.0105, L506.0250, L503.6550, L504.2610, L100.0100, L100.9950, L501.2300, L3100.1350, L101.9900, L501.5200, L500.4050 ####[facility] [address] [place], [address] Blood manual differential co mment interpretation (narrative result)Ordered By: Joseph Torres on 07-11-2024 Manual differential comment Simone (Bld) [Interp] SCANNED [facility] CRPon 07-11-2024 C-REACTIVE PROT 40.80 mg/L High 0.0-3.0 [facility] Comment on above: Order Comment: UNKNO WN1N Result Comment: C-Re active Protein (CRP) provides useful information for thediagnosis, therapy and monitoring of inflammatory processesand associated diseases. For the evaluation of Relative Riskfor Cardiovascular Disease, a High Sensitivity CRP (HSCRP)should be ordered. Performed By: #### L 503.6030, L501.6710, L503.0105, L506.0250, L503.6550, L504.2610, L100.0100, L100.9950, L501.2300, L3100.1350, L101.9900, L501.5200, L500.4050 ####[facility] [address] [place], [place], [id number] Comprehensive Metabolic Prof ilon 07-11-2024 Albumin [Mass/Vol] 2.8 g/dL Low 3.2-5.0 [facility] Comment on above: Order Comment: GARDENIAO WN1N Performed By: #### L 503.6030, L501.6710, L503.0105, L506.0250, L503.6550, L504.2610, L100.0100, L100.9950, L501.2300, L3100.1350, L101.9900, L501.5200, L500.4050 ####[facility] [address] [place], [place], [address] Albumin/Globulin [Mass ratio] 0.8 {ratio} Low 0.9-2.4 [facility] Comment on above: Order Comment: UNKNO WN1N Performed By: #### L 503.6030, L501.6710, L503.0105, L506.0250, L503.6550, L504.2610, L100.0100, L100.9950, L501.2300, L3100.1350, L101.9900, L501.5200, L500.4050 ####[facility] [address] [place], [address] ALK P 112 U/L Normal 45-117 [facility] Comment on above: Order Comment: UNKNO WN1N Performed By: #### L 503.6030, L501.6710, L503.0105, L506.0250, L503.6550, L504.2610, L100.0100, L100.9950, L501.2300, L3100.1350, L101.9900, L501.5200, L500.4050 ####[facility] [address] [place], [place], [address] ALT [Catalytic activity/Vol] 43 U/L Normal 13-56 [facility] Comment on above: Order Comment: UNKNO WN1N Performed By: #### L 503.6030, L501.6710, L503.0105, L506.0250, L503.6550, L504.2610, L100.0100, L100.9950, L501.2300, L3100.1350, L101.9900, L501.5200, L500.4050 ####[facility] [address] [place], [place], [address] AST [Catalytic activity/Vol] 42 U/L High 15-37 [facility] Comment on above: Order Comment: UNKNO WN1N Performed By: #### L 503.6030, L501.6710, L503.0105, L506.0250, L503.6550, L504.2610, L100.0100, L100.9950, L501.2300, L3100.1350, L101.9900, L501.5200, L500.4050 ####[facility] [address] [place], [place], [phone]) Bilirubin [Mass/Vol] 0.60 mg/dL Normal 0.20-1.00 [facility] Comment on above: Order Comment: UNKNO WN1N Result Comment: For patients on eltrombopag therapy, use of Dimension [place] TBIL is not recommended. Performed By: #### L 503.6030, L501.6710, L503.0105, L506.0250, L503.6550, L504.2610, L100.0100, L100.9950, L501.2300, L3100.1350, L101.9900, L501.5200, L500.4050 ####[facility] [address] [place], [place], [phone]) BUN/CRE 14.6 RATIO Normal 10-20 [facility] Comment on above: Order Comment: UNKNO WN1N Performed By: #### L 503.6030, L501.6710, L503.0105, L506.0250, L503.6550, L504.2610, L100.0100, L100.9950, L501.2300, L3100.1350, L101.9900, L501.5200, L500.4050 ####[facility] [address] [place], [place], [phone]) CA,Total 9.1 mg/dL Normal 8.5-10.1 [facility] Comment on above: Order Comment: UNKNO WN1N Performed By: #### L 503.6030, L501.6710, L503.0105, L506.0250, L503.6550, L504.2610, L100.0100, L100.9950, L501.2300, L3100.1350, L101.9900, L501.5200, L500.4050 ####[facility] [address] [place], [place], [id number] Chloride [Moles/Vol] 103 mmol/L Normal 98-107 [facility] Comment on above: Order Comment: UNKNO WN1N Performed By: #### L 503.6030, L501.6710, L503.0105, L506.0250, L503.6550, L504.2610, L100.0100, L100.9950, L501.2300, L3100.1350, L101.9900, L501.5200, L500.4050 ####[facility] [address] [place], [place], [address] CO2 [Moles/Vol] 29.0 mmol/L Normal 21.0-32.0 [facility] Comment on above: Order Comment: UNKNO WN1N Performed By: #### L 503.6030, L501.6710, L503.0105, L506.0250, L503.6550, L504.2610, L100.0100, L100.9950, L501.2300, L3100.1350, L101.9900, L501.5200, L500.4050 ####[facility] [address] [place], [place], [phone] Creatinine [Mass/Vol] 0.89 mg/dL Normal 0.55-1.02 [facility] Comment on above: Order Comment: UNKNO WN1N Result Comment: The validity of the calculated GFR GFRAA in patients over70 years has not been determined. Clinical correlation isessential. Performed By: #### L 503.6030, L501.6710, L503.0105, L506.0250, L503.6550, L504.2610, L100.0100, L100.9950, L501.2300, L3100.1350, L101.9900, L501.5200, L500.4050 ####[facility] [address] [place], [place], [address] EST GFR - AA 81 mL/min Normal >60 [facility] Comment on above: Order Comment: UNKNO WN1N Result Comment: Afri can Gabonese GFR Calc Performed By: #### L 503.6030, L501.6710, L503.0105, L506.0250, L503.6550, L504.2610, L100.0100, L100.9950, L501.2300, L3100.1350, L101.9900, L501.5200, L500.4050 ####[facility] [address] [place], [place], [phone] GAP 7 Normal 5-15 [facility] Comment on above: Order Comment: UNKNO WN1N Performed By: #### L 503.6030, L501.6710, L503.0105, L506.0250, L503.6550, L504.2610, L100.0100, L100.9950, L501.2300, L3100.1350, L101.9900, L501.5200, L500.4050 ####[facility] [address] [place], [place], [id number] GFR/1.73 sq M.predicted among non-blacks MDRD (S/P/Bld) [Vol rate/Area] 67 mL/min/{1.73_m2} Normal >60 [facility] Comment on above: Order Comment: UNKNO WN1N Result Comment: Non- GFR Calc Performed By: #### L 503.6030, L501.6710, L503.0105, L506.0250, L503.6550, L504.2610, L100.0100, L100.9950, L501.2300, L3100.1350, L101.9900, L501.5200, L500.4050 ####[facility] [address] [place], [address] Globulin (S) [Mass/Vol] 3.5 g/dL Normal 2.2-4.2 [facility] Comment on above: Order Comment: UNKNO WN1N Performed By: #### L 503.6030, L501.6710, L503.0105, L506.0250, L503.6550, L504.2610, L100.0100, L100.9950, L501.2300, L3100.1350, L101.9900, L501.5200, L500.4050 ####[facility] [address] [place], [address] Glucose [Mass/Vol] 104 mg/dL Normal 74-106 [facility] Comment on above: Order Comment: UNKNO WN1N Result Comment: Fast ing Glucose result from 100 to 125 mg/dLsuggests IMPAIRED HOMEOSTASIS per A.D.A. criteria. Performed By: #### L 503.6030, L501.6710, L503.0105, L506.0250, L503.6550, L504.2610, L100.0100, L100.9950, L501.2300, L3100.1350, L101.9900, L501.5200, L500.4050 ####[facility] [address] [place], [address] Potassium [Moles/Vol] 3.9 mmol/L Normal 3.5-5.1 [facility] Comment on above: Order Comment: UNKNO WN1N Performed By: #### L 503.6030, L501.6710, L503.0105, L506.0250, L503.6550, L504.2610, L100.0100, L100.9950, L501.2300, L3100.1350, L101.9900, L501.5200, L500.4050 ####[facility] [address] [place], [address] Sodium [Moles/Vol] 139 mmol/L Normal 136-145 [facility] Comment on above: Order Comment: UNKNO WN1N Performed By: #### L 503.6030, L501.6710, L503.0105, L506.0250, L503.6550, L504.2610, L100.0100, L100.9950, L501.2300, L3100.1350, L101.9900, L501.5200, L500.4050 ####[facility] [address] [place], [address] T PROT 6.3 g/dL Low 6.4-8.2 [facility] Comment on above: Order Comment: UNKNO WN1N Performed By: #### L 503.6030, L501.6710, L503.0105, L506.0250, L503.6550, L504.2610, L100.0100, L100.9950, L501.2300, L3100.1350, L101.9900, L501.5200, L500.4050 ####[facility] [address] [place], [address] Urea nitrogen [Mass/Vol] 13 mg/dL Normal 7-18 [facility] Comment on above: Order Comment: UNKNO WN1N Performed By: #### L 503.6030, L501.6710, L503.0105, L506.0250, L503.6550, L504.2610, L100.0100, L100.9950, L501.2300, L3100.1350, L101.9900, L501.5200, L500.4050 ####[facility] [address] [place], [address] Erythrocyte Sed Rateon 07-11 SED RATE 18 mm/hr Normal 0-30 [facility] Comment on above: Performed By: #### L 503.6030, L501.6710, L503.0105, L506.0250, L503.6550, L504.2610, L100.0100, L100.9950, L501.2300, L3100.1350, L101.9900, L501.5200, L500.4050 ####[facility] [address] [place], [address] Erythropoietin (EPO) QnOrder ed By: Joseph Torres on 07-11-2024 Erythropoietin 19.4 mIU/mL High 2.6-18.5 [facility] Comment on above: StrataCloud el DxI 800 Immunoassay SystemValues obtained with different assay methods or kits cannotbe used interchangeably. Results cannot be interpreted asabsolute evidence of the presence or absence of malignantdisease.Performed at: [address] [id number] Director: Prabhu Sorenson PhD, Phone: [phone] Ferritinon 07-11-2024 Ferritin [Mass/Vol] 12 ng/mL Normal 8-252 [facility] Comment on above: Order Comment: UNKNO WN1N Performed By: #### L 503.6030, L501.6710, L503.0105, L506.0250, L503.6550, L504.2610, L100.0100, L100.9950, L501.2300, L3100.1350, L101.9900, L501.5200, L500.4050 ####[facility] [address], [address] Folates, (Folic Acid)on 06-17 FOLATES 11.30 ng/mL Normal 3.1-55.4 [facility] Comment on above: Order Comment: UNKNO WN1N Performed By: #### L 503.6030, L501.6710, L503.0105, L506.0250, L503.6550, L504.2610, L100.0100, L100.9950, L501.2300, L3100.1350, L101.9900, L501.5200, L500.4050 ####[facility] [address] [place], [place], [id number] Iron+Iron Binding Capacityon 07-11-2024 Iron [Mass/Vol] 22 ug/dL Low 50-170 [facility] Comment on above: Order Comment: UNKNO WN1N Performed By: #### L 503.6030, L501.6710, L503.0105, L506.0250, L503.6550, L504.2610, L100.0100, L100.9950, L501.2300, L3100.1350, L101.9900, L501.5200, L500.4050 ####[facility] [address] [place], [place], [id number] IRON SATURATION 6.0 Low 15.0-55.0 [facility] Comment on above: Order Comment: UNKNO WN1N Performed By: #### L 503.6030, L501.6710, L503.0105, L506.0250, L503.6550, L504.2610, L100.0100, L100.9950, L501.2300, L3100.1350, L101.9900, L501.5200, L500.4050 ####[facility] [address] [place], [place], [id number] TIBC 367 ug/dL Normal 250-450 [facility] Comment on above: Order Comment: UNKNO WN1N Performed By: #### L 503.6030, L501.6710, L503.0105, L506.0250, L503.6550, L504.2610, L100.0100, L100.9950, L501.2300, L3100.1350, L101.9900, L501.5200, L500.4050 ####[facility] [address] [place], [place], [id number] LDHon 07-11-2024 LDH 197 U/L Normal 84-246 [facility] Comment on above: Order Comment: UNKNO WN1N Performed By: #### L 503.6030, L501.6710, L503.0105, L506.0250, L503.6550, L504.2610, L100.0100, L100.9950, L501.2300, L3100.1350, L101.9900, L501.5200, L500.4050 ####[facility] [address] [place], [place], [id number] Magnesiumon 07-11-2024 Magnesium [Mass/Vol] 1.7 mg/dL Normal 1.6-2.6 [facility] Comment on above: Order Comment: UNKNO WN1N Performed By: #### L 503.6030, L501.6710, L503.0105, L506.0250, L503.6550, L504.2610, L100.0100, L100.9950, L501.2300, L3100.1350, L101.9900, L501.5200, L500.4050 ####[facility] [address] [place], [place], [id number] Manual differential comment Simone (Bld) [Interp]Ordered By: Joseph Torres on 07-11-2024 Differential Comment SCANNED [facility] Oncology Visit Reporton 06-17 Oncology Visit Report Normal [facility] Pathologist review Simone (Unsp spec) [Interp]Ordered By: Joseph Torres on 07-11-2024 Differential Pathologist's Review Reviewed [facility] Comment on above: Previous reported re sult: Destini boyd Edited by: PAL on 07/12/24:1355Neutrophilic leukocytosis.Normocytic anemia.Clinical correlation necessary.León Oneil M.D. 07/12/24 AMENDED REPORT 07/12/24 1355 PATH REV previously reported as: Destini boyd Phosphoruson 07-11-2024 Phosphate [Mass/Vol] 2.8 mg/dL Normal 2.5-4.9 [facility] Comment on above: Order Comment: UNKNO WN1N Performed By: #### L 503.6030, L501.6710, L503.0105, L506.0250, L503.6550, L504.2610, L100.0100, L100.9950, L501.2300, L3100.1350, L101.9900, L501.5200, L500.4050 ####[facility] [address] [place], [place], [id number] Retic Panelon 07-11-2024 IM RET FRACTION 19.10 High 3.00-15.90 [facility] Comment on above: Performed By: #### L 503.6030, L501.6710, L503.0105, L506.0250, L503.6550, L504.2610, L100.0100, L100.9950, L501.2300, L3100.1350, L101.9900, L501.5200, L500.4050 ####[facility] [address] [place], [place], [phone] RET-HE 23.7 pg Low 30-35 [facility] Comment on above: Performed By: #### L 503.6030, L501.6710, L503.0105, L506.0250, L503.6550, L504.2610, L100.0100, L100.9950, L501.2300, L3100.1350, L101.9900, L501.5200, L500.4050 ####[facility] [address] [place], [place], [id number] Retic Count 1.49 Normal 0.5-1.5 [facility] Comment on above: Performed By: #### L 503.6030, L501.6710, L503.0105, L506.0250, L503.6550, L504.2610, L100.0100, L100.9950, L501.2300, L3100.1350, L101.9900, L501.5200, L500.4050 ####[facility] [address] [place], [address] Review by pathologistOrdered By: Joseph Torres on 07-11-2024 Pathologist review Simone (Unsp spec) [Interp] Reviewed [facility] Comment on above: Previous reported re sult: Destini oliver Edited by: PAL on 07/12/24:1355Neutrophilic leukocytosis.Normocytic anemia.Clinical correlation necessary.León Oneil M.D. 07/12/24 AMENDED REPORT 07/12/24 1355 PATH REV previously reported as: Destini boyd Serum or plasma erythropoiet in (EPO) measurement (units/volume)Ordered By: Joseph Torres on 07-11-2024 Erythropoietin (EPO) Qn 19.4 mIU/mL High 2.6-18.5 [facility] Comment on above: StrataCloud el DxI 800 Immunoassay SystemValues obtained with different assay methods or kits cannotbe used interchangeably. Results cannot be interpreted asabsolute evidence of the presence or absence of malignantdisease.Performed at: [facility] [employer] [id number] Director: Prabhu Sorenson PhD, Phone: [phone] Toxic granules LM Ql (Bld)Or dered By: Joseph Torres on 07-11-2024 Toxic Granulation 1+ [facility] Toxic leukocyte granulation detectionOrdered By: Joseph Torres on 07-11-2024 Toxic granules LM Ql (Bld) 1+ [facility] Vitamin B12on 07-11-2024 Cobalamin (Vitamin B12) [Mass/Vol] 212 pg/mL Normal 211-911 [facility] Comment on above: Performed By: #### L 503.6030, L501.6710, L503.0105, L506.0250, L503.6550, L504.2610, L100.0100, L100.9950, L501.2300, L3100.1350, L101.9900, L501.5200, L500.4050 ####[facility] [address] [place], [address] CBC-Complete Blood Cnt No Di ffon 06-10-2024 Erythrocyte distribution width (RBC) [Ratio] 17.3 % High 11.6-14.6 [facility] Comment on above: Performed By: #### L 503.6030, L500.4050, L100.0500 ####[facility] [address] [place], [address] Hematocrit (Bld) [Volume fraction] 37.6 % Normal 37-47 [facility] Comment on above: Performed By: #### L 503.6030, L500.4050, L100.0500 ####[facility] [address] [place], [address] Hemoglobin (Bld) [Mass/Vol] 11.6 g/dL Low 12.0-15.0 [facility] Comment on above: Performed By: #### L 503.6030, L500.4050, L100.0500 ####[facility] [address] [place], [address] MCH (RBC) [Entitic mass] 26.2 pg Low 27.0-32.0 [facility] Comment on above: Performed By: #### L 503.6030, L500.4050, L100.0500 ####[facility] [address] [place], [address] MCHC (RBC) [Mass/Vol] 30.9 g/dL Low 32-36 [facility] Comment on above: Performed By: #### L 503.6030, L500.4050, L100.0500 ####[facility] [address] [place], [address] MCV (RBC) [Entitic vol] 84.9 fL Normal 81-99 [facility] Comment on above: Performed By: #### L 503.6030, L500.4050, L100.0500 ####[facility] [address] [place], [address] Platelet mean volume (Bld) [Entitic vol] 9.7 fL Normal 6.2-12.0 [facility] Comment on above: Performed By: #### L 503.6030, L500.4050, L100.0500 ####[facility] [address] [place], [address] Platelets (Bld) [#/Vol] 405 10*3/uL Normal 150-450 [facility] Comment on above: Performed By: #### L 503.6030, L500.4050, L100.0500 ####[facility] [address] [place], [address] RBC (Bld) [#/Vol] 4.43 10*6/uL Normal 4.2-5.4 [facility] Comment on above: Performed By: #### L 503.6030, L500.4050, L100.0500 ####[facility] [address] [place], [address] RDW SD 54.1 fl High 35.1-43.9 [facility] Comment on above: Performed By: #### L 503.6030, L500.4050, L100.0500 ####[facility] [address] [place], [address] WBC (Bld) [#/Vol] 13.2 10*3/uL High 4.4-11.0 [facility] Comment on above: Performed By: #### L 503.6030, L500.4050, L100.0500 ####[facility] [address] [place], [address] Comprehensive Metabolic Prof [facility] 06-10-2024 Albumin [Mass/Vol] 2.7 g/dL Low 3.2-5.0 [facility] Comment on above: Performed By: #### L 503.6030, L500.4050, L100.0500 ####[facility] [address] [place], [address] Albumin/Globulin [Mass ratio] 0.8 {ratio} Low 0.9-2.4 [facility] Comment on above: Performed By: #### L 503.6030, L500.4050, L100.0500 ####[facility] [address] [place], [address] ALK P 103 U/L Normal 45-117 [facility] Comment on above: Performed By: #### L 503.6030, L500.4050, L100.0500 ####[facility] [address] [place], [address] ALT [Catalytic activity/Vol] 19 U/L Normal 13-56 [facility] Comment on above: Performed By: #### L 503.6030, L500.4050, L100.0500 ####[facility] [address] [place], [address] AST [Catalytic activity/Vol] 15 U/L Normal 15-37 [facility] Comment on above: Performed By: #### L 503.6030, L500.4050, L100.0500 ####[facility] [address] [place], [address] Bilirubin [Mass/Vol] 0.30 mg/dL Normal 0.20-1.00 [facility] Comment on above: Result Comment: For patients on eltrombopag therapy, use of Dimension [place] TBIL is not recommended. Performed By: #### L 503.6030, L500.4050, L100.0500 ####[facility] [address] [place], [address] BUN/CRE 11.1 RATIO Normal 10-20 [facility] Comment on above: Performed By: #### L 503.6030, L500.4050, L100.0500 ####[facility] [address] [place], [address] CA,Total 8.9 mg/dL Normal 8.5-10.1 [facility] Comment on above: Performed By: #### L 503.6030, L500.4050, L100.0500 ####[facility] [address] [place], [address] Chloride [Moles/Vol] 105 mmol/L Normal 98-107 [facility] Comment on above: Performed By: #### L 503.6030, L500.4050, L100.0500 ####[facility] [address] [place], [address] CO2 [Moles/Vol] 31.0 mmol/L Normal 21.0-32.0 [facility] Comment on above: Performed By: #### L 503.6030, L500.4050, L100.0500 ####[facility] [address] [place], [address] Creatinine [Mass/Vol] 0.72 mg/dL Normal 0.55-1.02 [facility] Comment on above: Result Comment: The validity of the calculated GFR GFRAA in patients over70 years has not been determined. Clinical correlation isessential. Performed By: #### L 503.6030, L500.4050, L100.0500 ####[facility] [address] [place], [address] EST GFR - AA 104 mL/min Normal >60 [facility] Comment on above: Result Comment: Afri can Gabonese GFR Calc Performed By: #### L 503.6030, L500.4050, L100.0500 ####[facility] [address] [place], [address] GAP 2 Low 5-15 [facility] Comment on above: Performed By: #### L 503.6030, L500.4050, L100.0500 ####[facility] [address] [place], [address] GFR/1.73 sq M.predicted among non-blacks MDRD (S/P/Bld) [Vol rate/Area] 86 mL/min/{1.73_m2} Normal >60 [facility] Comment on above: Result Comment: Non- GFR Calc Performed By: #### L 503.6030, L500.4050, L100.0500 ####[facility] [address] [place], [address] Globulin (S) [Mass/Vol] 3.5 g/dL Normal 2.2-4.2 [facility] Comment on above: Performed By: #### L 503.6030, L500.4050, L100.0500 ####[facility] [address] [place], [address] Glucose [Mass/Vol] 94 mg/dL Normal 74-106 [facility] Comment on above: Performed By: #### L 503.6030, L500.4050, L100.0500 ####[facility] [address] [place], [address] Potassium [Moles/Vol] 4.2 mmol/L Normal 3.5-5.1 [facility] Comment on above: Performed By: #### L 503.6030, L500.4050, L100.0500 ####[facility] [address] [place], [address] Sodium [Moles/Vol] 138 mmol/L Normal 136-145 [facility] Comment on above: Performed By: #### L 503.6030, L500.4050, L100.0500 ####[facility] [address] [place], [address] T PROT 6.2 g/dL Low 6.4-8.2 [facility] Comment on above: Performed By: #### L 503.6030, L500.4050, L100.0500 ####[facility] [address] [place], [address] Urea nitrogen [Mass/Vol] 8 mg/dL Normal -18 [facility] Comment on above: Performed By: #### L 503.6030, L500.4050, L100.0500 ####[facility] [address] [place], [address] Iron+Iron Binding Capacityon 06-10-2024 Iron [Mass/Vol] 27 ug/dL Low 50-170 [facility] Comment on above: Performed By: #### L 503.6030, L500.4050, L100.0500 ####[facility] [address] [place], [address] IRON SATURATION 8.2 Low 15.0-55.0 [facility] Comment on above: Performed By: #### L 503.6030, L500.4050, L100.0500 ####[facility] [address] [place], [address] TIBC 330 ug/dL Normal 250-450 [facility] Comment on above: Performed By: #### L 503.6030, L500.4050, L100.0500 ####[facility] [address] [place], [address] MR/BMS.BVSon 06-08-2024 MR/BMS.BVS Normal [facility] Basic Metabolic Profile (BMP )on 05-31-2024 BUN Normal - [facility] Comment on above: Result Comment: Canc elled via OM: Order cancelled - Patient discharged Performed By: #### L 100.0100, L500.2500 ####[facility] [address] [place], [address] BUN/CRE Normal 10-20 [facility] Comment on above: Result Comment: Canc elled via OM: Order cancelled - Patient discharged Performed By: #### L 100.0100, L500.2500 ####[facility] [address] [place], [address] CA,Total Normal 8.5-10.1 [facility] Comment on above: Result Comment: Canc elled via OM: Order cancelled - Patient discharged Performed By: #### L 100.0100, L500.2500 ####[facility] [address] [place], [address] CL Normal 98-107 [facility] Comment on above: Result Comment: Canc elled via OM: Order cancelled - Patient discharged Performed By: #### L 100.0100, L500.2500 ####[facility] [address] [place], [address] CO2 Normal 21.0-32.0 [facility] Comment on above: Result Comment: Canc elled via OM: Order cancelled - Patient discharged Performed By: #### L 100.0100, L500.2500 ####[facility] [address] [place], [address] CREAT,SERUM Normal 0.55-1.02 [facility] Comment on above: Result Comment: Canc elled via OM: Order cancelled - Patient discharged Performed By: #### L 100.0100, L500.2500 ####[facility] [address] [place], [address] EST GFR Normal >60 [facility] Comment on above: Result Comment: Canc elled via OM: Order cancelled - Patient discharged Performed By: #### L 100.0100, L500.2500 ####[facility] [address] [place], [address] EST GFR - AA Normal >60 [facility] Comment on above: Result Comment: Canc elled via OM: Order cancelled - Patient discharged Performed By: #### L 100.0100, L500.2500 ####[facility] [address] [place], [address] GAP Normal 5-15 [facility] Comment on above: Result Comment: Canc elled via OM: Order cancelled - Patient discharged Performed By: #### L 100.0100, L500.2500 ####[facility] [address] [place], [address] GLU Normal 74-106 [facility] Comment on above: Result Comment: Canc elled via OM: Order cancelled - Patient discharged Performed By: #### L 100.0100, L500.2500 ####[facility] [address] [place], [address] Potassium Normal 3.5-5.1 [facility] Comment on above: Result Comment: Canc elled via OM: Order cancelled - Patient discharged Performed By: #### L 100.0100, L500.2500 ####[facility] [address] [place], [address] Basic Metabolic Profile (BMP) Normal 136-145 [facility] Comment on above: Result Comment: Canc elled via OM: Order cancelled - Patient discharged Performed By: #### L 100.0100, L500.2500 ####[facility] [address] [place], [address] CBC W/Diff, Automatedon 07- Absolute Neut Normal 2.0-7.7 [facility] Comment on above: Result Comment: Canc elled via OM: Order cancelled - Patient discharged Performed By: #### L 100.0100, L500.2500 ####[facility] [address] [place], [address] HCT Normal 37-47 [facility] Comment on above: Result Comment: Canc elled via OM: Order cancelled - Patient discharged Performed By: #### L 100.0100, L500.2500 ####[facility] [address] [place], [address] HGB Normal 12.0-15.0 [facility] Comment on above: Result Comment: Canc elled via OM: Order cancelled - Patient discharged Performed By: #### L 100.0100, L500.2500 ####[facility] [address] [place], [address] MCH Normal 27.0-32.0 [facility] Comment on above: Result Comment: Canc elled via OM: Order cancelled - Patient discharged Performed By: #### L 100.0100, L500.2500 ####[facility] [address] [place], [address] MCHC Normal 32-36 [facility] Comment on above: Result Comment: Canc elled via OM: Order cancelled - Patient discharged Performed By: #### L 100.0100, L500.2500 ####[facility] [address] [place], [address] MCV Normal 81-99 [facility] Comment on above: Result Comment: Canc elled via OM: Order cancelled - Patient discharged Performed By: #### L 100.0100, L500.2500 ####[facility] [address] [place], [address] NEUT% Normal 47-70 [facility] Comment on above: Result Comment: Canc elled via OM: Order cancelled - Patient discharged Performed By: #### L 100.0100, L500.2500 ####[facility] [address] [place], [address] PLT Normal 150-450 [facility] Comment on above: Result Comment: Canc elled via OM: Order cancelled - Patient discharged Performed By: #### L 100.0100, L500.2500 ####[facility] [address] [place], [address] RBC Normal 4.2-5.4 [facility] Comment on above: Result Comment: Canc elled via OM: Order cancelled - Patient discharged Performed By: #### L 100.0100, L500.2500 ####[facility] [address] [place], [address] RDW CV Normal 11.6-14.6 [facility] Comment on above: Result Comment: Canc elled via OM: Order cancelled - Patient discharged Performed By: #### L 100.0100, L500.2500 ####[facility] [address] [place], [address] RDW SD Normal 35.1-43.9 [facility] Comment on above: Result Comment: Canc elled via OM: Order cancelled - Patient discharged Performed By: #### L 100.0100, L500.2500 ####[facility] [address] [place], [address] WBC Normal 4.4-11.0 [facility] Comment on above: Result Comment: Canc elled via OM: Order cancelled - Patient discharged Performed By: #### L 100.0100, L500.2500 ####[facility] [address] [place], [address] Basic Metabolic Profile (BMP )on 05-30-2024 BUN/CRE 11.0 RATIO Normal 10-20 [facility] Comment on above: Performed By: #### L 100.0100, L500.2500 ####[facility] [address] [place], [address] CA,Total 8.5 mg/dL Normal 8.5-10.1 [facility] Comment on above: Performed By: #### L 100.0100, L500.2500 ####[facility] [address] [place], [address] Chloride [Moles/Vol] 108 mmol/L High 98-107 [facility] Comment on above: Performed By: #### L 100.0100, L500.2500 ####[facility] [address] [place], [address] CO2 [Moles/Vol] 25.0 mmol/L Normal 21.0-32.0 [facility] Comment on above: Performed By: #### L 100.0100, L500.2500 ####[facility] [address] [place], [address] Creatinine [Mass/Vol] 0.45 mg/dL Low 0.55-1.02 [facility] Comment on above: Result Comment: The validity of the calculated GFR GFRAA in patients over70 years has not been determined. Clinical correlation isessential. Performed By: #### L 100.0100, L500.2500 ####[facility] [address] [place], [address] ECRCL 69.78 ml/min Normal [facility] Comment on above: Performed By: #### L 100.0100, L500.2500 ####[facility] [address] [place], [address] EST GFR - AA 177 mL/min Normal >60 [facility] Comment on above: Result Comment: Afri can Gabonese GFR Calc Performed By: #### L 100.0100, L500.2500 ####[facility] [address] [place], [address] GAP 7 Normal 5-15 [facility] Comment on above: Performed By: #### L 100.0100, L500.2500 ####[facility] [address] [place], [address] GFR/1.73 sq M.predicted among non-blacks MDRD (S/P/Bld) [Vol rate/Area] 146 mL/min/{1.73_m2} Normal >60 [facility] Comment on above: Result Comment: Non- GFR Calc Performed By: #### L 100.0100, L500.2500 ####[facility] [address] [place], [address] Glucose [Mass/Vol] 77 mg/dL Normal 74-106 [facility] Comment on above: Performed By: #### L 100.0100, L500.2500 ####[facility] [address] [place], [address] Potassium [Moles/Vol] 2.8 mmol/L Low 3.5-5.1 [facility] Comment on above: Performed By: #### L 100.0100, L500.2500 ####[facility] [address] [place], [address] Sodium [Moles/Vol] 140 mmol/L Normal 136-145 [facility] Comment on above: Performed By: #### L 100.0100, L500.2500 ####[facility] [address] [place], [address] Urea nitrogen [Mass/Vol] 5 mg/dL Low 7-18 [facility] Comment on above: Performed By: #### L 100.0100, L500.2500 ####[facility] [address] [place], [address] CBC W/Diff, Automatedon 05-16 Absolute Lymph 0.94 X10 3/uL Normal 0.83-4.51 [facility] Comment on above: Performed By: #### L 100.0100, L500.2500 ####[facility] [address] [place], [address] Absolute Neut 8.6 X10 3/uL High 2.0-7.7 [facility] Comment on above: Performed By: #### L 100.0100, L500.2500 ####[facility] [address] [place], [address] Basophils/100 WBC (Bld) 0.6 % Normal 0-1 [facility] Comment on above: Performed By: #### L 100.0100, L500.2500 ####[facility] [address] [place], [address] Eosinophils/100 WBC (Bld) 1.8 % Normal 0-5 [facility] Comment on above: Performed By: #### L 100.0100, L500.2500 ####[facility] [address] [place], [address] Erythrocyte distribution width (RBC) [Ratio] 16.6 % High 11.6-14.6 [facility] Comment on above: Performed By: #### L 100.0100, L500.2500 ####[facility] [address] [place], [address] Hematocrit (Bld) [Volume fraction] 31.5 % Low 37-47 [facility] Comment on above: Performed By: #### L 100.0100, L500.2500 ####[facility] [address] [place], [address] Hemoglobin (Bld) [Mass/Vol] 9.7 g/dL Low 12.0-15.0 [facility] Comment on above: Performed By: #### L 100.0100, L500.2500 ####[facility] [address] [place], [address] IG% 0.300 Normal 0.0-0.9 [facility] Comment on above: Result Comment: IG% - Immature Granulocytes (promyelocytes, myelocytes andmetamyelocytes) > 1% indicates that a LEFT SHIFT is Present. Performed By: #### L 100.0100, L500.2500 ####[facility] [address] [place], [address] Lymphocytes/100 WBC (Bld) 8.9 % Low 19-41 [facility] Comment on above: Performed By: #### L 100.0100, L500.2500 ####[facility] [address] [place], [address] MCH (RBC) [Entitic mass] 26.1 pg Low 27.0-32.0 [facility] Comment on above: Performed By: #### L 100.0100, L500.2500 ####[facility] [address] [place], [address] MCHC (RBC) [Mass/Vol] 30.8 g/dL Low 32-36 [facility] Comment on above: Performed By: #### L 100.0100, L500.2500 ####[facility] [address] [place], [address] MCV (RBC) [Entitic vol] 84.9 fL Normal 81-99 [facility] Comment on above: Performed By: #### L 100.0100, L500.2500 ####[facility] [address] [place], [address] Monocytes/100 WBC (Bld) 6.5 % Normal 0-10 [facility] Comment on above: Performed By: #### L 100.0100, L500.2500 ####[facility] [address] [place], [address] Neutrophils/100 WBC (Bld) 81.9 % High 47-70 [facility] Comment on above: Performed By: #### L 100.0100, L500.2500 ####[facility] [address] [place], [address] Nucleated RBC (Bld) [#/Vol] 0 10*3/uL Normal 0-5 [facility] Comment on above: Performed By: #### L 100.0100, L500.2500 ####[facility] [address] [place], [address] Platelet mean volume (Bld) [Entitic vol] 10.3 fL Normal 6.2-12.0 [facility] Comment on above: Performed By: #### L 100.0100, L500.2500 ####[facility] [address] [place], [address] Platelets (Bld) [#/Vol] 286 10*3/uL Normal 150-450 [facility] Comment on above: Performed By: #### L 100.0100, L500.2500 ####[facility] [address] [place], [address] RBC (Bld) [#/Vol] 3.71 10*6/uL Low 4.2-5.4 [facility] Comment on above: Performed By: #### L 100.0100, L500.2500 ####[facility] [address] [place], [address] RDW SD 51.9 fl High 35.1-43.9 [facility] Comment on above: Performed By: #### L 100.0100, L500.2500 ####[facility] [address] [place], [address] WBC (Bld) [#/Vol] 10.5 10*3/uL Normal 4.4-11.0 [facility] Comment on above: Performed By: #### L 100.0100, L500.2500 ####[facility] [address] [place], [address] MR/CON.PCM.GIon 05-30-2024 MR/CON.PCM.GI Normal [facility] Magnesiumon 05-30-2024 Magnesium [Mass/Vol] 1.3 mg/dL Low 1.6-2.6 [facility] Comment on above: Performed By: #### L 501.5200 ####[facility] [address] [place], [address] CBC W/Diff, Automatedon 07- Absolute Lymph 1.47 X10 3/uL Normal 0.83-4.51 [facility] Comment on above: Performed By: #### L 100.0100, L500.4050 ####[facility] [address] [place], [address] Absolute Neut 8.1 X10 3/uL High 2.0-7.7 [facility] Comment on above: Performed By: #### L 100.0100, L500.4050 ####[facility] [address] [place], [address] Basophils/100 WBC (Bld) 0.5 % Normal 0-1 [facility] Comment on above: Performed By: #### L 100.0100, L500.4050 ####[facility] [address] [place], [address] Eosinophils/100 WBC (Bld) 1.5 % Normal 0-5 [facility] Comment on above: Performed By: #### L 100.0100, L500.4050 ####[facility] [address] [place], [address] Erythrocyte distribution width (RBC) [Ratio] 16.9 % High 11.6-14.6 [facility] Comment on above: Performed By: #### L 100.0100, L500.4050 ####[facility] [address] [place], [address] Hematocrit (Bld) [Volume fraction] 30.1 % Low 37-47 [facility] Comment on above: Performed By: #### L 100.0100, L500.4050 ####[facility] [address] [place], [address] Hemoglobin (Bld) [Mass/Vol] 9.5 g/dL Low 12.0-15.0 [facility] Comment on above: Performed By: #### L 100.0100, L500.4050 ####[facility] [address] [place], [address] IG% 0.300 Normal 0.0-0.9 [facility] Comment on above: Result Comment: IG% - Immature Granulocytes (promyelocytes, myelocytes andmetamyelocytes) > 1% indicates that a LEFT SHIFT is Present. Performed By: #### L 100.0100, L500.4050 ####[facility] [address] [place], [address] Lymphocytes/100 WBC (Bld) 14.1 % Low 19-41 [facility] Comment on above: Performed By: #### L 100.0100, L500.4050 ####[facility] [address] [place], [address] MCH (RBC) [Entitic mass] 26.8 pg Low 27.0-32.0 [facility] Comment on above: Performed By: #### L 100.0100, L500.4050 ####[facility] [address] [place], [address] MCHC (RBC) [Mass/Vol] 31.6 g/dL Low 32-36 [facility] Comment on above: Performed By: #### L 100.0100, L500.4050 ####[facility] [address] [place], [address] MCV (RBC) [Entitic vol] 84.8 fL Normal 81-99 [facility] Comment on above: Performed By: #### L 100.0100, L500.4050 ####[facility] [address] [place], [address] Monocytes/100 WBC (Bld) 6.5 % Normal 0-10 [facility] Comment on above: Performed By: #### L 100.0100, L500.4050 ####[facility] [address] [place], [address] Neutrophils/100 WBC (Bld) 77.1 % High 47-70 [facility] Comment on above: Performed By: #### L 100.0100, L500.4050 ####[facility] [address] [place], [address] Nucleated RBC (Bld) [#/Vol] 0 10*3/uL Normal 0-5 [facility] Comment on above: Performed By: #### L 100.0100, L500.4050 ####[facility] [address] [place], [address] Platelet mean volume (Bld) [Entitic vol] 10.1 fL Normal 6.2-12.0 [facility] Comment on above: Performed By: #### L 100.0100, L500.4050 ####[facility] [address] [place], [address] Platelets (Bld) [#/Vol] 303 10*3/uL Normal 150-450 [facility] Comment on above: Performed By: #### L 100.0100, L500.4050 ####[facility] [address] [place], [address] RBC (Bld) [#/Vol] 3.55 10*6/uL Low 4.2-5.4 [facility] Comment on above: Performed By: #### L 100.0100, L500.4050 ####[facility] [address] [place], [address] RDW SD 52.7 fl High 35.1-43.9 [facility] Comment on above: Performed By: #### L 100.0100, L500.4050 ####[facility] [address] [place], [address] WBC (Bld) [#/Vol] 10.5 10*3/uL Normal 4.4-11.0 [facility] Comment on above: Performed By: #### L 100.0100, L500.4050 ####[facility] [address] [place], [address] Comprehensive Metabolic Prof ilon 05-29-2024 Albumin [Mass/Vol] 2.5 g/dL Low 3.2-5.0 [facility] Comment on above: Performed By: #### L 100.0100, L500.4050 ####[facility] [address] [place], [address] Albumin/Globulin [Mass ratio] 0.9 {ratio} Normal 0.9-2.4 [facility] Comment on above: Performed By: #### L 100.0100, L500.4050 ####[facility] [address] [place], [address] ALK P 50 U/L Normal 45-117 [facility] Comment on above: Performed By: #### L 100.0100, L500.4050 ####[facility] [address] [place], [address] ALT [Catalytic activity/Vol] 13 U/L Normal 13-56 [facility] Comment on above: Performed By: #### L 100.0100, L500.4050 ####[facility] [address] [place], [address] AST [Catalytic activity/Vol] 8 U/L Low 15-37 [facility] Comment on above: Performed By: #### L 100.0100, L500.4050 ####[facility] [address] [place], [address] Bilirubin [Mass/Vol] 0.30 mg/dL Normal 0.20-1.00 [facility] Comment on above: Result Comment: For patients on eltrombopag therapy, use of Dimension [place] TBIL is not recommended. Performed By: #### L 100.0100, L500.4050 ####[facility] [address] [place], [address] BUN/CRE 17.6 RATIO Normal 10-20 [facility] Comment on above: Performed By: #### L 100.0100, L500.4050 ####[facility] [address] [place], [address] CA,Total 8.1 mg/dL Low 8.5-10.1 [facility] Comment on above: Performed By: #### L 100.0100, L500.4050 ####[facility] [address] [place], [address] Chloride [Moles/Vol] 109 mmol/L High 98-107 [facility] Comment on above: Performed By: #### L 100.0100, L500.4050 ####[facility] [address] [place], [address] CO2 [Moles/Vol] 24.0 mmol/L Normal 21.0-32.0 [facility] Comment on above: Performed By: #### L 100.0100, L500.4050 ####[facility] [address] [place], [address] Creatinine [Mass/Vol] 0.51 mg/dL Low 0.55-1.02 [facility] Comment on above: Result Comment: The validity of the calculated GFR GFRAA in patients over70 years has not been determined. Clinical correlation isessential. Performed By: #### L 100.0100, L500.4050 ####[facility] [address] [place], [address] ECRCL 69.78 ml/min Normal [facility] Comment on above: Performed By: #### L 100.0100, L500.4050 ####[facility] [address] [place], [address] EST GFR - AA 154 mL/min Normal >60 [facility] Comment on above: Result Comment: Afri can Gabonese GFR Calc Performed By: #### L 100.0100, L500.4050 ####[facility] [address] [place], [address] GAP 6 Normal 5-15 [facility] Comment on above: Performed By: #### L 100.0100, L500.4050 ####[facility] [address] [place], [address] GFR/1.73 sq M.predicted among non-blacks MDRD (S/P/Bld) [Vol rate/Area] 127 mL/min/{1.73_m2} Normal >60 [facility] Comment on above: Result Comment: Non- GFR Calc Performed By: #### L 100.0100, L500.4050 ####[facility] [address] [place], [address] Globulin (S) [Mass/Vol] 2.9 g/dL Normal 2.2-4.2 [facility] Comment on above: Performed By: #### L 100.0100, L500.4050 ####[facility] [address] [place], [address] Glucose [Mass/Vol] 85 mg/dL Normal 74-106 [facility] Comment on above: Performed By: #### L 100.0100, L500.4050 ####[facility] [address] [place], [address] Potassium [Moles/Vol] 3.0 mmol/L Low 3.5-5.1 [facility] Comment on above: Performed By: #### L 100.0100, L500.4050 ####[facility] [address] [place], [address] Sodium [Moles/Vol] 139 mmol/L Normal 136-145 [facility] Comment on above: Performed By: #### L 100.0100, L500.4050 ####[facility] [address] [place], [address] T PROT 5.4 g/dL Low 6.4-8.2 [facility] Comment on above: Performed By: #### L 100.0100, L500.4050 ####[facility] [address] [place], [address] Urea nitrogen [Mass/Vol] 9 mg/dL Normal 7-18 [facility] Comment on above: Performed By: #### L 100.0100, L500.4050 ####[facility] [address] [place], [address] Basic Metabolic Profile (BMP )on 05-28-2024 BUN/CRE 17.7 RATIO Normal 10-20 [facility] Comment on above: Performed By: #### L 500.2500, L100.0100 ####[facility] [address] [place], [address] CA,Total 9.4 mg/dL Normal 8.5-10.1 [facility] Comment on above: Performed By: #### L 500.2500, L100.0100 ####[facility] [address] [place], [address] Chloride [Moles/Vol] 106 mmol/L Normal 98-107 [facility] Comment on above: Performed By: #### L 500.2500, L100.0100 ####[facility] [address] [place], [address] CO2 [Moles/Vol] 26.0 mmol/L Normal 21.0-32.0 [facility] Comment on above: Performed By: #### L 500.2500, L100.0100 ####[facility] [address] [place], [address] Creatinine [Mass/Vol] 0.79 mg/dL Normal 0.55-1.02 [facility] Comment on above: Result Comment: The validity of the calculated GFR GFRAA in patients over70 years has not been determined. Clinical correlation isessential. Performed By: #### L 500.2500, L100.0100 ####[facility] [address] [place], [address] ECRCL 69.78 ml/min Normal [facility] Comment on above: Performed By: #### L 500.2500, L100.0100 ####[facility] [address] [place], [address] EST GFR - AA 93 mL/min Normal >60 [facility] Comment on above: Result Comment: Afri can Gabonese GFR Calc Performed By: #### L 500.2500, L100.0100 ####[facility] [address] [place], [address] GAP 7 Normal 5-15 [facility] Comment on above: Performed By: #### L 500.2500, L100.0100 ####[facility] [address] [place], [address] GFR/1.73 sq M.predicted among non-blacks MDRD (S/P/Bld) [Vol rate/Area] 77 mL/min/{1.73_m2} Normal >60 [facility] Comment on above: Result Comment: Non- GFR Calc Performed By: #### L 500.2500, L100.0100 ####[facility] [address] [place], [address] Glucose [Mass/Vol] 96 mg/dL Normal 74-106 [facility] Comment on above: Performed By: #### L 500.2500, L100.0100 ####[facility] [address] [place], [address] Potassium [Moles/Vol] 3.3 mmol/L Low 3.5-5.1 [facility] Comment on above: Result Comment: Slig ht Hemolysis, Result may be falsely increased. Performed By: #### L 500.2500, L100.0100 ####[facility] [address] [place], [address] Sodium [Moles/Vol] 139 mmol/L Normal 136-145 [facility] Comment on above: Performed By: #### L 500.2500, L100.0100 ####[facility] [address] [place], [address] Urea nitrogen [Mass/Vol] 14 mg/dL Normal 7-18 [facility] Comment on above: Performed By: #### L 500.2500, L100.0100 ####[facility] [address] [place], [address] CBC W/Diff, Automatedon 07- 3-4 Absolute Lymph 1.73 X10 3/uL Normal 0.83-4.51 [facility] Comment on above: Performed By: #### L 500.2500, L100.0100 ####[facility] [address] [place], [address] Absolute Neut 10.5 X10 3/uL High 2.0-7.7 [facility] Comment on above: Performed By: #### L 500.2500, L100.0100 ####[facility] [address] [place], [address] Basophils/100 WBC (Bld) 0.3 % Normal 0-1 [facility] Comment on above: Performed By: #### L 500.2500, L100.0100 ####[facility] [address] [place], [address] Eosinophils/100 WBC (Bld) 1.3 % Normal 0-5 [facility] Comment on above: Performed By: #### L 500.2500, L100.0100 ####[facility] [address] [place], [address] Erythrocyte distribution width (RBC) [Ratio] 16.7 % High 11.6-14.6 [facility] Comment on above: Performed By: #### L 500.2500, L100.0100 ####[facility] [address] [place], [address] Hematocrit (Bld) [Volume fraction] 37.1 % Normal 37-47 [facility] Comment on above: Performed By: #### L 500.2500, L100.0100 ####[facility] [address] [place], [address] Hemoglobin (Bld) [Mass/Vol] 11.7 g/dL Low 12.0-15.0 [facility] Comment on above: Performed By: #### L 500.2500, L100.0100 ####[facility] [address] [place], [address] IG% 0.300 Normal 0.0-0.9 [facility] Comment on above: Result Comment: IG% - Immature Granulocytes (promyelocytes, myelocytes andmetamyelocytes) > 1% indicates that a LEFT SHIFT is Present. Performed By: #### L 500.2500, L100.0100 ####[facility] [address] [place], [address] Lymphocytes/100 WBC (Bld) 13.1 % Low 19-41 [facility] Comment on above: Performed By: #### L 500.2500, L100.0100 ####[facility] [address] [place], [address] MCH (RBC) [Entitic mass] 26.5 pg Low 27.0-32.0 [facility] Comment on above: Performed By: #### L 500.2500, L100.0100 ####[facility] [address] [place], [address] MCHC (RBC) [Mass/Vol] 31.5 g/dL Low 32-36 [facility] Comment on above: Performed By: #### L 500.2500, L100.0100 ####[facility] [address] [place], [address] MCV (RBC) [Entitic vol] 84.1 fL Normal 81-99 [facility] Comment on above: Performed By: #### L 500.2500, L100.0100 ####[facility] [address] [place], [address] Monocytes/100 WBC (Bld) 6.0 % Normal 0-10 [facility] Comment on above: Performed By: #### L 500.2500, L100.0100 ####[facility] [address] [place], [address] Neutrophils/100 WBC (Bld) 79.0 % High 47-70 [facility] Comment on above: Performed By: #### L 500.2500, L100.0100 ####[facility] [address] [place], [address] Nucleated RBC (Bld) [#/Vol] 0 10*3/uL Normal 0-5 [facility] Comment on above: Performed By: #### L 500.2500, L100.0100 ####[facility] [address] [place], [address] Platelet mean volume (Bld) [Entitic vol] 10.1 fL Normal 6.2-12.0 [facility] Comment on above: Performed By: #### L 500.2500, L100.0100 ####[facility] [address] [place], [address] Platelets (Bld) [#/Vol] 371 10*3/uL Normal 150-450 [facility] Comment on above: Performed By: #### L 500.2500, L100.0100 ####[facility] [address] [place], [address] RBC (Bld) [#/Vol] 4.41 10*6/uL Normal 4.2-5.4 [facility] Comment on above: Performed By: #### L 500.2500, L100.0100 ####[facility] [address] [place], [address] RDW SD 51.4 fl High 35.1-43.9 [facility] Comment on above: Performed By: #### L 500.2500, L100.0100 ####[facility] [address] [place], [address] WBC (Bld) [#/Vol] 13.3 10*3/uL High 4.4-11.0 [facility] Comment on above: Performed By: #### L 500.2500, L100.0100 ####[facility] [address] [place], [address] CTA Abd/Pelvis W/WO Contrast on 05-28-2024 CTA Abd/Pelvis W/WO Contrast Normal [facility] Emergency Department Summary on 05-28-2024 Emergency Department Summary Normal [facility] H AND P Exam - Hospitaliston 05-28-2024 H&P Exam - Hospitalist Normal [facility] Magnesiumon 05-28-2024 Magnesium [Mass/Vol] 1.3 mg/dL Low 1.6-2.6 [facility] Comment on above: Order Comment: Comme nts: may add to ED labs Result Comment: Slig ht Hemolysis, Result may be falsely increased. Performed By: #### L 501.5200 ####[facility] [address] [place], [address] Stool Occult Blood iFOBon STOB Positive Normal [facility] Comment on above: Performed By: #### M 100.7900 ####[facility] [address] [place], [address] Basic Metabolic Profile (BMP )on 05-26-2024 BUN/CRE 13.1 RATIO Normal 10-20 [facility] Comment on above: Performed By: #### L 100.0100, L500.2500 ####[facility] [address] [place], [address] CA,Total 8.4 mg/dL Low 8.5-10.1 [facility] Comment on above: Performed By: #### L 100.0100, L500.2500 ####[facility] [address] [place], [address] Chloride [Moles/Vol] 106 mmol/L Normal 98-107 [facility] Comment on above: Performed By: #### L 100.0100, L500.2500 ####[facility] [address] [place], [address] CO2 [Moles/Vol] 30.0 mmol/L Normal 21.0-32.0 [facility] Comment on above: Performed By: #### L 100.0100, L500.2500 ####[facility] [address] [place], [address] Creatinine [Mass/Vol] 0.54 mg/dL Low 0.55-1.02 [facility] Comment on above: Result Comment: The validity of the calculated GFR GFRAA in patients over70 years has not been determined. Clinical correlation isessential. Performed By: #### L 100.0100, L500.2500 ####[facility] [address] [place], [address] ECRCL 59.84 ml/min Normal [facility] Comment on above: Performed By: #### L 100.0100, L500.2500 ####[facility] [facility] [address] [place], [address] EST GFR - AA 146 mL/min Normal >60 [facility] Comment on above: Result Comment: Afri can Gabonese GFR Calc Performed By: #### L 100.0100, L500.2500 ####[facility] [address] [place], [address] GAP 6 Normal 5-15 [facility] Comment on above: Performed By: #### L 100.0100, L500.2500 ####[facility] [address] [place], [address] GFR/1.73 sq M.predicted among non-blacks MDRD (S/P/Bld) [Vol rate/Area] 121 mL/min/{1.73_m2} Normal >60 [facility] Comment on above: Result Comment: Non- GFR Calc Performed By: #### L 100.0100, L500.2500 ####[facility] [address] [place], [address] Glucose [Mass/Vol] 105 mg/dL Normal 74-106 [facility] Comment on above: Result Comment: Fast ing Glucose result from 100 to 125 mg/dLsuggests IMPAIRED HOMEOSTASIS per A.D.A. criteria. Performed By: #### L 100.0100, L500.2500 ####[facility] [address] [place], [address] Potassium [Moles/Vol] 2.8 mmol/L Low 3.5-5.1 [facility] Comment on above: Performed By: #### L 100.0100, L500.2500 ####[facility] [address] [place], [address] Sodium [Moles/Vol] 142 mmol/L Normal 136-145 [facility] Comment on above: Performed By: #### L 100.0100, L500.2500 ####[facility] [address] [place], [address] Urea nitrogen [Mass/Vol] 7 mg/dL Normal 7-18 [facility] Comment on above: Performed By: #### L 100.0100, L500.2500 ####[facility] [address] [place], [address] CBC W/Diff, Automatedon 05-16 Absolute Lymph 1.01 X10 3/uL Normal 0.83-4.51 [facility] Comment on above: Performed By: #### L 100.0100, L500.2500 ####[facility] [address] [place], [address] Absolute Neut 5.2 X10 3/uL Normal 2.0-7.7 [facility] Comment on above: Performed By: #### L 100.0100, L500.2500 ####[facility] [address] [place], [address] Basophils/100 WBC (Bld) 0.6 % Normal 0-1 [facility] Comment on above: Performed By: #### L 100.0100, L500.2500 ####[facility] [address] [place], [address] Eosinophils/100 WBC (Bld) 1.2 % Normal 0-5 [facility] Comment on above: Performed By: #### L 100.0100, L500.2500 ####[facility] [address] [place], [address] Erythrocyte distribution width (RBC) [Ratio] 16.7 % High 11.6-14.6 [facility] Comment on above: Performed By: #### L 100.0100, L500.2500 ####[facility] [address] [place], [address] Hematocrit (Bld) [Volume fraction] 31.3 % Low 37-47 [facility] Comment on above: Performed By: #### L 100.0100, L500.2500 ####[facility] [address] [place], [address] Hemoglobin (Bld) [Mass/Vol] 10.1 g/dL Low 12.0-15.0 [facility] Comment on above: Performed By: #### L 100.0100, L500.2500 ####[facility] [address] [place], [address] IG% 0.300 Normal 0.0-0.9 [facility] Comment on above: Result Comment: IG% - Immature Granulocytes (promyelocytes, myelocytes andmetamyelocytes) > 1% indicates that a LEFT SHIFT is Present. Performed By: #### L 100.0100, L500.2500 ####[facility] [address] [place], [address] Lymphocytes/100 WBC (Bld) 14.6 % Low 19-41 [facility] Comment on above: Performed By: #### L 100.0100, L500.2500 ####[facility] [address] [place], [address] MCH (RBC) [Entitic mass] 27.3 pg Normal 27.0-32.0 [facility] Comment on above: Performed By: #### L 100.0100, L500.2500 ####[facility] [address] [place], [address] MCHC (RBC) [Mass/Vol] 32.3 g/dL Normal 32-36 [facility] Comment on above: Performed By: #### L 100.0100, L500.2500 ####[facility] [address] [place], [address] MCV (RBC) [Entitic vol] 84.6 fL Normal 81-99 [facility] Comment on above: Performed By: #### L 100.0100, L500.2500 ####[facility] [address] [place], [address] Monocytes/100 WBC (Bld) 8.3 % Normal 0-10 [facility] Comment on above: Performed By: #### L 100.0100, L500.2500 ####[facility] [address] [place], [address] Neutrophils/100 WBC (Bld) 75.0 % High 47-70 [facility] Comment on above: Performed By: #### L 100.0100, L500.2500 ####[facility] [address] [place], [address] Nucleated RBC (Bld) [#/Vol] 0 10*3/uL Normal 0-5 [facility] Comment on above: Performed By: #### L 100.0100, L500.2500 ####[facility] [address] [place], [address] Platelet mean volume (Bld) [Entitic vol] 10.0 fL Normal 6.2-12.0 [facility] Comment on above: Performed By: #### L 100.0100, L500.2500 ####[facility] [address] [place], [address] Platelets (Bld) [#/Vol] 307 10*3/uL Normal 150-450 [facility] Comment on above: Performed By: #### L 100.0100, L500.2500 ####[facility] [address] [place], [address] RBC (Bld) [#/Vol] 3.70 10*6/uL Low 4.2-5.4 [facility] Comment on above: Performed By: #### L 100.0100, L500.2500 ####[facility] [address] [place], [address] RDW SD 52.0 fl High 35.1-43.9 [facility] Comment on above: Performed By: #### L 100.0100, L500.2500 ####[facility] [address] [place], [address] WBC (Bld) [#/Vol] 6.9 10*3/uL Normal 4.4-11.0 [facility] Comment on above: Performed By: #### L 100.0100, L500.2500 ####[facility] [address] [place], [address] Basic Metabolic Profile (BMP )on 05-25-2024 BUN/CRE 17.6 RATIO Normal 10-20 [facility] Comment on above: Performed By: #### L 500.2500, L100.0100 ####[facility] [address] [place], [address] CA,Total 8.4 mg/dL Low 8.5-10.1 [facility] Comment on above: Performed By: #### L 500.2500, L100.0100 ####[facility] [address] [place], [address] Chloride [Moles/Vol] 106 mmol/L Normal 98-107 [facility] Comment on above: Performed By: #### L 500.2500, L100.0100 ####[facility] [address] [place], [address] CO2 [Moles/Vol] 30.0 mmol/L Normal 21.0-32.0 [facility] Comment on above: Performed By: #### L 500.2500, L100.0100 ####[facility] [address] [place], [address] Creatinine [Mass/Vol] 0.62 mg/dL Normal 0.55-1.02 [facility] Comment on above: Result Comment: The validity of the calculated GFR GFRAA in patients over70 years has not been determined. Clinical correlation isessential. Performed By: #### L 500.2500, L100.0100 ####[facility] [address] [place], [address] ECRCL 60.32 ml/min Normal [facility] Comment on above: Performed By: #### L 500.2500, L100.0100 ####[facility] [address] [place], [address] EST GFR - AA 123 mL/min Normal >60 [facility] Comment on above: Result Comment: Afri can Gabonese GFR Calc Performed By: #### L 500.2500, L100.0100 ####[facility] [address] [place], [address] GAP 5 Normal 5-15 [facility] Comment on above: Performed By: #### L 500.2500, L100.0100 ####[facility] [address] [place], [address] GFR/1.73 sq M.predicted among non-blacks MDRD (S/P/Bld) [Vol rate/Area] 101 mL/min/{1.73_m2} Normal >60 [facility] Comment on above: Result Comment: Non- GFR Calc Performed By: #### L 500.2500, L100.0100 ####[facility] [address] [place], [address] Glucose [Mass/Vol] 110 mg/dL High 74-106 [facility] Comment on above: Result Comment: Fast ing Glucose result from 100 to 125 mg/dLsuggests IMPAIRED HOMEOSTASIS per A.D.A. criteria. Performed By: #### L 500.2500, L100.0100 ####[facility] [address] [place], [address] Potassium [Moles/Vol] 2.9 mmol/L Low 3.5-5.1 [facility] Comment on above: Performed By: #### L 500.2500, L100.0100 ####[facility] [address] [place], [address] Sodium [Moles/Vol] 141 mmol/L Normal 136-145 [facility] Comment on above: Performed By: #### L 500.2500, L100.0100 ####[facility] [address] [place], [address] Urea nitrogen [Mass/Vol] 11 mg/dL Normal 7-18 [facility] Comment on above: Performed By: #### L 500.2500, L100.0100 ####[facility] [address] [place], [address] CBC W/Diff, Automatedon 07- 0-2024 Absolute Lymph 1.05 X10 3/uL Normal 0.83-4.51 [facility] Comment on above: Performed By: #### L 500.2500, L100.0100 ####[facility] [address] [place], [address] Absolute Neut 6.2 X10 3/uL Normal 2.0-7.7 [facility] Comment on above: Performed By: #### L 500.2500, L100.0100 ####[facility] [address] [place], [address] Basophils/100 WBC (Bld) 0.6 % Normal 0-1 [facility] Comment on above: Performed By: #### L 500.2500, L100.0100 ####[facility] [address] [place], [address] Eosinophils/100 WBC (Bld) 1.2 % Normal 0-5 [facility] Comment on above: Performed By: #### L 500.2500, L100.0100 ####[facility] [address] [place], [address] Erythrocyte distribution width (RBC) [Ratio] 17.1 % High 11.6-14.6 [facility] Comment on above: Performed By: #### L 500.2500, L100.0100 ####[facility] [address] [place], [address] Hematocrit (Bld) [Volume fraction] 28.0 % Low 37-47 [facility] Comment on above: Performed By: #### L 500.2500, L100.0100 ####[facility] [address] [place], [address] Hemoglobin (Bld) [Mass/Vol] 9.0 g/dL Low 12.0-15.0 [facility] Comment on above: Performed By: #### L 500.2500, L100.0100 ####[facility] [address] [place], [address] IG% 0.200 Normal 0.0-0.9 [facility] Comment on above: Result Comment: IG% - Immature Granulocytes (promyelocytes, myelocytes andmetamyelocytes) > 1% indicates that a LEFT SHIFT is Present. Performed By: #### L 500.2500, L100.0100 ####[facility] [address] [place], [address] Lymphocytes/100 WBC (Bld) 13.0 % Low 19-41 [facility] Comment on above: Performed By: #### L 500.2500, L100.0100 ####[facility] [address] [place], [address] MCH (RBC) [Entitic mass] 27.0 pg Normal 27.0-32.0 [facility] Comment on above: Performed By: #### L 500.2500, L100.0100 ####[facility] [address] [place], [address] MCHC (RBC) [Mass/Vol] 32.1 g/dL Normal 32-36 [facility] Comment on above: Performed By: #### L 500.2500, L100.0100 ####[facility] [address] [place], [address] MCV (RBC) [Entitic vol] 84.1 fL Normal 81-99 [facility] Comment on above: Performed By: #### L 500.2500, L100.0100 ####[facility] [address] [place], [address] Monocytes/100 WBC (Bld) 7.7 % Normal 0-10 [facility] Comment on above: Performed By: #### L 500.2500, L100.0100 ####[facility] [address] [place], [address] Neutrophils/100 WBC (Bld) 77.3 % High 47-70 [facility] Comment on above: Performed By: #### L 500.2500, L100.0100 ####[facility] [address] [place], [address] Nucleated RBC (Bld) [#/Vol] 0 10*3/uL Normal 0-5 [facility] Comment on above: Performed By: #### L 500.2500, L100.0100 ####[facility] [address] [place], [address] Platelet mean volume (Bld) [Entitic vol] 9.5 fL Normal 6.2-12.0 [facility] Comment on above: Performed By: #### L 500.2500, L100.0100 ####[facility] [address] [place], [address] Platelets (Bld) [#/Vol] 308 10*3/uL Normal 150-450 [facility] Comment on above: Performed By: #### L 500.2500, L100.0100 ####[facility] [address] [place], [address] RBC (Bld) [#/Vol] 3.33 10*6/uL Low 4.2-5.4 [facility] Comment on above: Performed By: #### L 500.2500, L100.0100 ####[facility] [address] [place], [address] RDW SD 52.1 fl High 35.1-43.9 [facility] Comment on above: Performed By: #### L 500.2500, L100.0100 ####[facility] [address] [place], [address] WBC (Bld) [#/Vol] 8.1 10*3/uL Normal 4.4-11.0 [facility] Comment on above: Performed By: #### L 500.2500, L100.0100 ####[facility] [address] [place], [address] MR/PN.GIon 05-25-2024 MR/PN.GI Normal [facility] Basic Metabolic Profile (BMP )on 05-24-2024 BUN/CRE 27.0 RATIO High 10-20 [facility] Comment on above: Performed By: #### L 500.2500, L100.0100 ####[facility] [address] [place], [address] CA,Total 8.3 mg/dL Low 8.5-10.1 [facility] Comment on above: Performed By: #### L 500.2500, L100.0100 ####[facility] [address] [place], [address] Chloride [Moles/Vol] 109 mmol/L High 98-107 [facility] Comment on above: Performed By: #### L 500.2500, L100.0100 ####[facility] [address] [place], [address] CO2 [Moles/Vol] 26.0 mmol/L Normal 21.0-32.0 [facility] Comment on above: Performed By: #### L 500.2500, L100.0100 ####[facility] [address] [place], [address] Creatinine [Mass/Vol] 0.52 mg/dL Low 0.55-1.02 [facility] Comment on above: Result Comment: The validity of the calculated GFR GFRAA in patients over70 years has not been determined. Clinical correlation isessential. Performed By: #### L 500.2500, L100.0100 ####[facility] [address] [place], [address] ECRCL 59.80 ml/min Normal [facility] Comment on above: Performed By: #### L 500.2500, L100.0100 ####[facility] [address] [place], [address] EST GFR - AA 152 mL/min Normal >60 [facility] Comment on above: Result Comment: Afri can Gabonese GFR Calc Performed By: #### L 500.2500, L100.0100 ####[facility] [address] [place], [address] GAP 6 Normal 5-15 [facility] Comment on above: Performed By: #### L 500.2500, L100.0100 ####[facility] [address] [place], [address] GFR/1.73 sq M.predicted among non-blacks MDRD (S/P/Bld) [Vol rate/Area] 125 mL/min/{1.73_m2} Normal >60 [facility] Comment on above: Result Comment: Non- GFR Calc Performed By: #### L 500.2500, L100.0100 ####[facility] [address] [place], [address] Glucose [Mass/Vol] 89 mg/dL Normal 74-106 [facility] Comment on above: Performed By: #### L 500.2500, L100.0100 ####[facility] [address] [place], [address] Potassium [Moles/Vol] 3.3 mmol/L Low 3.5-5.1 [facility] Comment on above: Performed By: #### L 500.2500, L100.0100 ####[facility] [address] [place], [address] Sodium [Moles/Vol] 141 mmol/L Normal 136-145 [facility] Comment on above: Performed By: #### L 500.2500, L100.0100 ####[facility] [address] [place], [address] Urea nitrogen [Mass/Vol] 14 mg/dL Normal 7-18 [facility] Comment on above: Performed By: #### L 500.2500, L100.0100 ####[facility] [address] [place], [address] CBC W/Diff, Automatedon 07-0 9-2024 Absolute Lymph 1.04 X10 3/uL Normal 0.83-4.51 [facility] Comment on above: Performed By: #### L 500.2500, L100.0100 ####[facility] [address] [place], [address] Absolute Neut 6.7 X10 3/uL Normal 2.0-7.7 [facility] Comment on above: Performed By: #### L 500.2500, L100.0100 ####[facility] [address] [place], [address] Basophils/100 WBC (Bld) 0.7 % Normal 0-1 [facility] Comment on above: Performed By: #### L 500.2500, L100.0100 ####[facility] [address] [place], [address] Eosinophils/100 WBC (Bld) 1.8 % Normal 0-5 [facility] Comment on above: Performed By: #### L 500.2500, L100.0100 ####[facility] [address] [place], [address] Erythrocyte distribution width (RBC) [Ratio] 17.2 % High 11.6-14.6 [facility] Comment on above: Performed By: #### L 500.2500, L100.0100 ####[facility] [address] [place], [address] Hematocrit (Bld) [Volume fraction] 29.4 % Low 37-47 [facility] Comment on above: Performed By: #### L 500.2500, L100.0100 ####[facility] [address] [place], [address] Hemoglobin (Bld) [Mass/Vol] 9.2 g/dL Low 12.0-15.0 [facility] Comment on above: Performed By: #### L 500.2500, L100.0100 ####[facility] [address] [place], [address] IG% 0.400 Normal 0.0-0.9 [facility] Comment on above: Result Comment: IG% - Immature Granulocytes (promyelocytes, myelocytes andmetamyelocytes) > 1% indicates that a LEFT SHIFT is Present. Performed By: #### L 500.2500, L100.0100 ####[facility] [address] [place], [address] Lymphocytes/100 WBC (Bld) 12.2 % Low 19-41 [facility] Comment on above: Performed By: #### L 500.2500, L100.0100 ####[facility] [address] [place], [address] MCH (RBC) [Entitic mass] 27.1 pg Normal 27.0-32.0 [facility] Comment on above: Performed By: #### L 500.2500, L100.0100 ####[facility] [address] [place], [address] MCHC (RBC) [Mass/Vol] 31.3 g/dL Low 32-36 [facility] Comment on above: Performed By: #### L 500.2500, L100.0100 ####[facility] [address] [place], [address] MCV (RBC) [Entitic vol] 86.7 fL Normal 81-99 [facility] Comment on above: Performed By: #### L 500.2500, L100.0100 ####[facility] [address] [place], [address] Monocytes/100 WBC (Bld) 6.8 % Normal 0-10 [facility] Comment on above: Performed By: #### L 500.2500, L100.0100 ####[facility] [address] [place], [address] Neutrophils/100 WBC (Bld) 78.1 % High 47-70 [facility] Comment on above: Performed By: #### L 500.2500, L100.0100 ####[facility] [address] [place], [address] Nucleated RBC (Bld) [#/Vol] 0 10*3/uL Normal 0-5 [facility] Comment on above: Performed By: #### L 500.2500, L100.0100 ####[facility] [address] [place], [address] Platelet mean volume (Bld) [Entitic vol] 9.7 fL Normal 6.2-12.0 [facility] Comment on above: Performed By: #### L 500.2500, L100.0100 ####[facility] [address] [place], [address] Platelets (Bld) [#/Vol] 325 10*3/uL Normal 150-450 [facility] Comment on above: Performed By: #### L 500.2500, L100.0100 ####[facility] [address] [place], [address] RBC (Bld) [#/Vol] 3.39 10*6/uL Low 4.2-5.4 [facility] Comment on above: Performed By: #### L 500.2500, L100.0100 ####[facility] [address] [place], [address] RDW SD 54.9 fl High 35.1-43.9 [facility] Comment on above: Performed By: #### L 500.2500, L100.0100 ####[facility] [address] [place], [address] WBC (Bld) [#/Vol] 8.5 10*3/uL Normal 4.4-11.0 [facility] Comment on above: Performed By: #### L 500.2500, L100.0100 ####[facility] [address] [place], [address] HH, Hemoglobin AND Hematocri ton 05-24-2024 Hematocrit (Bld) [Volume fraction] 33.6 % Low 37-47 [facility] Comment on above: Performed By: #### L 100.0600 ####[facility] [address] [place], [address] Hemoglobin (Bld) [Mass/Vol] 10.4 g/dL Low 12.0-15.0 [facility] Comment on above: Performed By: #### L 100.0600 ####[facility] [address] [place], [address] MR/PN.GIon 05-24-2024 MR/PN.GI Normal [facility] Basic Metabolic Profile (BMP )on 05-23-2024 BUN/CRE 19.9 RATIO Normal 10-20 [facility] Comment on above: Performed By: #### L 500.2500, L100.0100 ####[facility] [address] [place], [address] CA,Total 8.2 mg/dL Low 8.5-10.1 [facility] Comment on above: Performed By: #### L 500.2500, L100.0100 ####[facility] [address] [place], [address] Chloride [Moles/Vol] 110 mmol/L High 98-107 [facility] Comment on above: Performed By: #### L 500.2500, L100.0100 ####[facility] [address] [place], [address] CO2 [Moles/Vol] 28.0 mmol/L Normal 21.0-32.0 [facility] Comment on above: Performed By: #### L 500.2500, L100.0100 ####[facility] [address] [place], [address] Creatinine [Mass/Vol] 0.80 mg/dL Normal 0.55-1.02 [facility] Comment on above: Result Comment: The validity of the calculated GFR GFRAA in patients over70 years has not been determined. Clinical correlation isessential. Performed By: #### L 500.2500, L100.0100 ####[facility] [address] [place], [address] ECRCL 59.80 ml/min Normal [facility] Comment on above: Performed By: #### L 500.2500, L100.0100 ####[facility] [address] [place], [address] EST GFR - AA 92 mL/min Normal >60 [facility] Comment on above: Result Comment: Afri can Gabonese GFR Calc Performed By: #### L 500.2500, L100.0100 ####[facility] [address] [place], [address] GAP 4 Low 5-15 [facility] Comment on above: Performed By: #### L 500.2500, L100.0100 ####[facility] [address] [place], [address] GFR/1.73 sq M.predicted among non-blacks MDRD (S/P/Bld) [Vol rate/Area] 76 mL/min/{1.73_m2} Normal >60 [facility] Comment on above: Result Comment: Non- GFR Calc Performed By: #### L 500.2500, L100.0100 ####[facility] [address] [place], [address] Glucose [Mass/Vol] 115 mg/dL High 74-106 [facility] Comment on above: Result Comment: Fast ing Glucose result from 100 to 125 mg/dLsuggests IMPAIRED HOMEOSTASIS per A.D.A. criteria. Performed By: #### L 500.2500, L100.0100 ####[facility] [address] [place], [address] Potassium [Moles/Vol] 3.6 mmol/L Normal 3.5-5.1 [facility] Comment on above: Performed By: #### L 500.2500, L100.0100 ####[facility] [address] [place], [address] Sodium [Moles/Vol] 142 mmol/L Normal 136-145 [facility] Comment on above: Performed By: #### L 500.2500, L100.0100 ####[facility] [address] [place], [address] Urea nitrogen [Mass/Vol] 16 mg/dL Normal 7-18 [facility] Comment on above: Performed By: #### L 500.2500, L100.0100 ####[facility] [address] [place], [address] CBC W/Diff, Automatedon 07-0 8-2024 Absolute Lymph 1.79 X10 3/uL Normal 0.83-4.51 [facility] Comment on above: Performed By: #### L 500.2500, L100.0100 ####[facility] [address] [place], [address] Absolute Neut 8.2 X10 3/uL High 2.0-7.7 [facility] Comment on above: Performed By: #### L 500.2500, L100.0100 ####[facility] [address] [place], [address] Basophils/100 WBC (Bld) 0.6 % Normal 0-1 [facility] Comment on above: Performed By: #### L 500.2500, L100.0100 ####[facility] [address] [place], [address] Eosinophils/100 WBC (Bld) 0.4 % Normal 0-5 [facility] Comment on above: Performed By: #### L 500.2500, L100.0100 ####[facility] [address] [place], [address] Erythrocyte distribution width (RBC) [Ratio] 17.8 % High 11.6-14.6 [facility] Comment on above: Performed By: #### L 500.2500, L100.0100 ####[facility] [address] [place], [address] Hematocrit (Bld) [Volume fraction] 26.7 % Low 37-47 [facility] Comment on above: Performed By: #### L 500.2500, L100.0100 ####[facility] [address] [place], [address] Hemoglobin (Bld) [Mass/Vol] 8.6 g/dL Low 12.0-15.0 [facility] Comment on above: Performed By: #### L 500.2500, L100.0100 ####[facility] [address] [place], [address] IG% 0.300 Normal 0.0-0.9 [facility] Comment on above: Result Comment: IG% - Immature Granulocytes (promyelocytes, myelocytes andmetamyelocytes) > 1% indicates that a LEFT SHIFT is Present. Performed By: #### L 500.2500, L100.0100 ####[facility] [address] [place], [address] Lymphocytes/100 WBC (Bld) 16.4 % Low 19-41 [facility] Comment on above: Performed By: #### L 500.2500, L100.0100 ####[facility] [address] [place], [address] MCH (RBC) [Entitic mass] 27.4 pg Normal 27.0-32.0 [facility] Comment on above: Performed By: #### L 500.2500, L100.0100 ####[facility] [address] [place], [address] MCHC (RBC) [Mass/Vol] 32.2 g/dL Normal 32-36 [facility] Comment on above: Performed By: #### L 500.2500, L100.0100 ####[facility] [address] [place], [address] MCV (RBC) [Entitic vol] 85.0 fL Normal 81-99 [facility] Comment on above: Performed By: #### L 500.2500, L100.0100 ####[facility] [address] [place], [address] Monocytes/100 WBC (Bld) 7.7 % Normal 0-10 [facility] Comment on above: Performed By: #### L 500.2500, L100.0100 ####[facility] [address] [place], [address] Neutrophils/100 WBC (Bld) 74.6 % High 47-70 [facility] Comment on above: Performed By: #### L 500.2500, L100.0100 ####[facility] [address] [place], [address] Nucleated RBC (Bld) [#/Vol] 0 10*3/uL Normal 0-5 [facility] Comment on above: Performed By: #### L 500.2500, L100.0100 ####[facility] [address] [place], [address] Platelet mean volume (Bld) [Entitic vol] 9.4 fL Normal 6.2-12.0 [facility] Comment on above: Performed By: #### L 500.2500, L100.0100 ####[facility] [address] [place], [address] Platelets (Bld) [#/Vol] 406 10*3/uL Normal 150-450 [facility] Comment on above: Performed By: #### L 500.2500, L100.0100 ####[facility] [address] [place], [address] RBC (Bld) [#/Vol] 3.14 10*6/uL Low 4.2-5.4 [facility] Comment on above: Performed By: #### L 500.2500, L100.0100 ####[facility] [address] [place], [address] RDW SD 54.4 fl High 35.1-43.9 [facility] Comment on above: Performed By: #### L 500.2500, L100.0100 ####[facility] [address] [place], [address] WBC (Bld) [#/Vol] 10.9 10*3/uL Normal 4.4-11.0 [facility] Comment on above: Performed By: #### L 500.2500, L100.0100 ####[facility] [address] [place], [address] HH, Hemoglobin AND Hematocri ton 05-23-2024 Hematocrit (Bld) [Volume fraction] 30.1 % Low [address] [place] [address] Comment on above: Performed By: #### L 100.0600 ####[facility] [address] [place], [address] Hemoglobin (Bld) [Mass/Vol] 9.5 g/dL Low 12.0-15.0 [facility] Comment on above: Performed By: #### L 100.0600 ####[facility] [address] [place], [address] Hematocrit (Bld) [Volume fraction] 26.9 % Low [address] [place] [address] Comment on above: Performed By: #### L 100.0600 ####[facility] [address] [place], [address] Hemoglobin (Bld) [Mass/Vol] 8.6 g/dL Low 12.0-15.0 [facility] Comment on above: Performed By: #### L 100.0600 ####[facility] [address] [place], [address] Hematocrit (Bld) [Volume fraction] 28.6 % Low [address] [place] [address] Comment on above: Performed By: #### L 100.0600 ####[facility] [address] [place], [address] Hemoglobin (Bld) [Mass/Vol] 9.3 g/dL Low 12.0-15.0 [facility] Comment on above: Performed By: #### L 100.0600 ####[facility] [address] [place], [address] MR/PN.GIon 05-23-2024 MR/PN.GI Normal [facility] 12 Lead EKGon 05-22-2024 12 Lead EKG Normal [facility] BRCon 05-22-2024 RC Normal [facility] Comment on above: Result Comment: [id number] OP RC NOT [id number] OP RC NOT [id number] OP RC NOT [id number] OP RC NOT [id number] BN RC TRANSFUSED 05/23/24 1411 Performed By: #### B RC ####[facility] [address] [place], [address] Result Comment: [id number] BN RC TRANSFUSED 05/22/24 [id number] BN RC TRANSFUSED 05/22/24 1032 Basic Metabolic Profile (BMP )on 05-22-2024 BUN/CRE 13.7 RATIO Normal 10-20 [facility] Comment on above: Performed By: #### L 503.6005, L500.2500, L100.0100 ####[facility] [address] [place], [address] CA,Total 9.0 mg/dL Normal 8.5-10.1 [facility] Comment on above: Performed By: #### L 503.6005, L500.2500, L100.0100 ####[facility] [address] [place], [address] Chloride [Moles/Vol] 108 mmol/L High 98-107 [facility] Comment on above: Performed By: #### L 503.6005, L500.2500, L100.0100 ####[facility] [address] [place], [address] CO2 [Moles/Vol] 27.0 mmol/L Normal 21.0-32.0 [facility] Comment on above: Performed By: #### L 503.6005, L500.2500, L100.0100 ####[facility] [address] [place], [address] Creatinine [Mass/Vol] 0.95 mg/dL Normal 0.55-1.02 [facility] Comment on above: Result Comment: The validity of the calculated GFR GFRAA in patients over70 years has not been determined. Clinical correlation isessential. Performed By: #### L 503.6005, L500.2500, L100.0100 ####[facility] [address] [place], [address] ECRCL 52.77 ml/min Normal [facility] Comment on above: Performed By: #### L 503.6005, L500.2500, L100.0100 ####[facility] [address] [place], [address] EST GFR - AA 76 mL/min Normal >60 [facility] Comment on above: Result Comment: Afri can Gabonese GFR Calc Performed By: #### L 503.6005, L500.2500, L100.0100 ####[facility] [address] [place], [address] GAP 8 Normal 5-15 [facility] Comment on above: Performed By: #### L 503.6005, L500.2500, L100.0100 ####[facility] [address] [place], [address] GFR/1.73 sq M.predicted among non-blacks MDRD (S/P/Bld) [Vol rate/Area] 63 mL/min/{1.73_m2} Normal >60 [facility] Comment on above: Result Comment: Non- GFR Calc Performed By: #### L 503.6005, L500.2500, L100.0100 ####[facility] [address] [place], [address] Glucose [Mass/Vol] 187 mg/dL High 74-106 [facility] Comment on above: Result Comment: Fast ing Glucose result greater than or equal to 126 mg/dLsuggests DIABETES MELLITUS per A.D.A. criteria. Performed By: #### L 503.6005, L500.2500, L100.0100 ####[facility] [address] [place], [address] Potassium [Moles/Vol] 3.6 mmol/L Normal 3.5-5.1 [facility] Comment on above: Performed By: #### L 503.6005, L500.2500, L100.0100 ####[facility] [address] [place], [address] Sodium [Moles/Vol] 143 mmol/L Normal 136-145 [facility] Comment on above: Performed By: #### L 503.6005, L500.2500, L100.0100 ####[facility] [address] [place], [address] Urea nitrogen [Mass/Vol] 13 mg/dL Normal 7-18 [facility] Comment on above: Performed By: #### L 503.6005, L500.2500, L100.0100 ####[facility] [address] [place], [address] CBC W/Diff, Automatedon 07-0 Anisocytosis Ql (Bld) 2+ Normal [facility] Comment on above: Performed By: #### L 503.6005, L500.2500, L100.0100 ####[facility] [address] [place], [address] MACROCYTOSIS 1+ Normal [facility] Comment on above: Performed By: #### L 503.6005, L500.2500, L100.0100 ####[facility] [address] [place], [address] MICROCYTIC 1+ Normal [facility] Comment on above: Performed By: #### L 503.6005, L500.2500, L100.0100 ####[facility] [address] [place], [address] SMEAR COMMENT SCANNED Normal [facility] Comment on above: Performed By: #### L 503.6005, L500.2500, L100.0100 ####[facility] [address] [place], [address] EGD Reporton 05-22-2024 EGD Report Normal [facility] Emergency Department Summary on 05-22-2024 Emergency Department Summary Normal [facility] H AND P Exam - Hospitaliston 05-22-2024 H&P Exam - Hospitalist Normal [facility] HH, Hemoglobin AND Hematocri ton 05-22-2024 HCT Normal [address] [place] [address] Comment on above: Result Comment: Marianna tee via OM: MD Ordered Performed By: #### L 100.0600 ####[facility] [address] [place], [address] HGB Normal 12.0-15.0 [facility] Comment on above: Result Comment: Marianna tee via OM: MD Ordered Performed By: #### L 100.0600 ####[facility] [address] [place], [address] Hematocrit (Bld) [Volume fraction] 30.8 % Low [address] [place] [address] Comment on above: Performed By: #### L 100.0600 ####[facility] [address] [place], [address] Hemoglobin (Bld) [Mass/Vol] 9.8 g/dL Low 12.0-15.0 [facility] Comment on above: Performed By: #### L 100.0600 ####[facility] [address] [place], [address] HCT Normal [address] [place] [address] Comment on above: Result Comment: Canc elled via OM: MD Ordered Performed By: #### L 100.0600 ####[facility] [address] [place], [address] HGB Normal 12.0-15.0 [facility] Comment on above: Result Comment: Canmagdalena elled via OM: MD Ordered Performed By: #### L 100.0600 ####[facility] [address] [place], [address] Lactic Acidon 05-22-2024 Lactate [Moles/Vol] 3.0 mmol/L Invalid Interpretation Code 0.4-1.9 [facility] Comment on above: Order Comment: Y Result Comment: Crit ical Result(s) Called at: 10:16:06 05/22/2024 by:Cee Arias to David . Results read back by same. Performed By: #### L 503.6005, L500.2500, L100.0100 ####[facility] [address] [place], [address] MR/CON.PCM.GIon 05-22-2024 MR/CON.PCM.GI Normal [facility] MR/POSTOP.ANEon 05-22-2024 MR/POSTOP.ANE Normal [facility] MR/PUFFMKXJ2yl 05-22-2024 MR/POSTOPAN2 Normal [facility] Prothrombin Time w/INRon INR Coag (PPP) [Relative time] 1.4 {INR} Normal [facility] Comment on above: Performed By: #### L 300.3900, BTS ####[facility] [address] [place], [address] PT Coag (PPP) [Time] 16.6 s High 11.7-14.9 [facility] Comment on above: Performed By: #### L 300.3900, BTS ####[facility] [address] [place], [address] Type AND Screenon 05-22-2024 Ab SCREEN GEL Negative Normal [facility] Comment on above: Order Comment: HGI Performed By: #### L 300.3900, BTS ####[facility] [address] [place], [address] ABO and Rh group Nom (Bld) Blood group B Rh(D) positive Normal [facility] Comment on above: Order Comment: HGI Performed By: #### L 300.3900, BTS ####[facility] [address] [place], [address] Basic Metabolic Profile (BMP )on 05-20-2024 BUN/CRE 12.8 RATIO Normal 10-20 [facility] Comment on above: Performed By: #### L 100.0100, L500.2500 ####[facility] [address] [place], [address] CA,Total 8.6 mg/dL Normal 8.5-10.1 [facility] Comment on above: Performed By: #### L 100.0100, L500.2500 ####[facility] [address] [place], [address] Chloride [Moles/Vol] 111 mmol/L High 98-107 [facility] Comment on above: Performed By: #### L 100.0100, L500.2500 ####[facility] [address] [place], [address] CO2 [Moles/Vol] 27.0 mmol/L Normal 21.0-32.0 [facility] Comment on above: Performed By: #### L 100.0100, L500.2500 ####[facility] [address] [place], [address] Creatinine [Mass/Vol] 0.47 mg/dL Low 0.55-1.02 [facility] Comment on above: Result Comment: The validity of the calculated GFR GFRAA in patients over70 years has not been determined. Clinical correlation isessential. Performed By: #### L 100.0100, L500.2500 ####[facility] [address] [place], [address] ECRCL 63.14 ml/min Normal [facility] Comment on above: Performed By: #### L 100.0100, L500.2500 ####[facility] [address] [place], [address] EST GFR - AA 171 mL/min Normal >60 [facility] Comment on above: Result Comment: Afri can Gabonese GFR Calc Performed By: #### L 100.0100, L500.2500 ####[facility] [address] [place], [address] GAP 4 Low 5-15 [facility] Comment on above: Performed By: #### L 100.0100, L500.2500 ####[facility] [address] [place], [address] GFR/1.73 sq M.predicted among non-blacks MDRD (S/P/Bld) [Vol rate/Area] 141 mL/min/{1.73_m2} Normal >60 [facility] Comment on above: Result Comment: Non- GFR Calc Performed By: #### L 100.0100, L500.2500 ####[facility] [address] [place], [address] Glucose [Mass/Vol] 80 mg/dL Normal 74-106 [facility] Comment on above: Performed By: #### L 100.0100, L500.2500 ####[facility] [address] [place], [address] Potassium [Moles/Vol] 3.7 mmol/L Normal 3.5-5.1 [facility] Comment on above: Performed By: #### L 100.0100, L500.2500 ####[facility] [address] [place], [address] Sodium [Moles/Vol] 142 mmol/L Normal 136-145 [facility] Comment on above: Performed By: #### L 100.0100, L500.2500 ####[facility] [address] [place], [address] Urea nitrogen [Mass/Vol] 6 mg/dL Low 7-18 [facility] Comment on above: Performed By: #### L 100.0100, L500.2500 ####[facility] [address] [place], [address] CBC W/Diff, Automatedon 07-0 5-2024 Absolute Lymph 1.07 X10 3/uL Normal 0.83-4.51 [facility] Comment on above: Performed By: #### L 100.0100, L500.2500 ####[facility] [address] [place], [address] Absolute Neut 4.6 X10 3/uL Normal 2.0-7.7 [facility] Comment on above: Performed By: #### L 100.0100, L500.2500 ####[facility] [address] [place], [address] Basophils/100 WBC (Bld) 0.6 % Normal 0-1 [facility] Comment on above: Performed By: #### L 100.0100, L500.2500 ####[facility] [address] [place], [address] Eosinophils/100 WBC (Bld) 1.8 % Normal 0-5 [facility] Comment on above: Performed By: #### L 100.0100, L500.2500 ####[facility] [address] [place], [address] Erythrocyte distribution width (RBC) [Ratio] 19.8 % High 11.6-14.6 [facility] Comment on above: Performed By: #### L 100.0100, L500.2500 ####[facility] [address] [place], [address] Hematocrit (Bld) [Volume fraction] 27.8 % Low 37-47 [facility] Comment on above: Performed By: #### L 100.0100, L500.2500 ####[facility] [address] [place], [address] Hemoglobin (Bld) [Mass/Vol] 8.2 g/dL Low 12.0-15.0 [facility] Comment on above: Performed By: #### L 100.0100, L500.2500 ####[facility] [address] [place], [address] IG% 0.300 Normal 0.0-0.9 [facility] Comment on above: Result Comment: IG% - Immature Granulocytes (promyelocytes, myelocytes andmetamyelocytes) > 1% indicates that a LEFT SHIFT is Present. Performed By: #### L 100.0100, L500.2500 ####[facility] [address] [place], [address] Lymphocytes/100 WBC (Bld) 16.1 % Low 19-41 [facility] Comment on above: Performed By: #### L 100.0100, L500.2500 ####[facility] [address] [place], [address] MCH (RBC) [Entitic mass] 25.1 pg Low 27.0-32.0 [facility] Comment on above: Performed By: #### L 100.0100, L500.2500 ####[facility] [address] [place], [address] MCHC (RBC) [Mass/Vol] 29.5 g/dL Low 32-36 [facility] Comment on above: Performed By: #### L 100.0100, L500.2500 ####[facility] [address] [place], [address] MCV (RBC) [Entitic vol] 85.0 fL Normal 81-99 [facility] Comment on above: Performed By: #### L 100.0100, L500.2500 ####[facility] [address] [place], [address] Monocytes/100 WBC (Bld) 11.6 % High 0-10 [facility] Comment on above: Performed By: #### L 100.0100, L500.2500 ####[facility] [address] [place], [address] Neutrophils/100 WBC (Bld) 69.6 % Normal 47-70 [facility] Comment on above: Performed By: #### L 100.0100, L500.2500 ####[facility] [address] [place], [address] Nucleated RBC (Bld) [#/Vol] 0 10*3/uL Normal 0-5 [facility] Comment on above: Performed By: #### L 100.0100, L500.2500 ####[facility] [address] [place], [address] Platelet mean volume (Bld) [Entitic vol] 9.6 fL Normal 6.2-12.0 [facility] Comment on above: Performed By: #### L 100.0100, L500.2500 ####[facility] [address] [place], [address] Platelets (Bld) [#/Vol] 451 10*3/uL High 150-450 [facility] Comment on above: Performed By: #### L 100.0100, L500.2500 ####[facility] [address] [place], [address] RBC (Bld) [#/Vol] 3.27 10*6/uL Low 4.2-5.4 [facility] Comment on above: Performed By: #### L 100.0100, L500.2500 ####[facility] [address] [place], [address] RDW SD 60.6 fl High 35.1-43.9 [facility] Comment on above: Performed By: #### L 100.0100, L500.2500 ####[facility] [address] [place], [address] WBC (Bld) [#/Vol] 6.6 10*3/uL Normal 4.4-11.0 [facility] Comment on above: Performed By: #### L 100.0100, L500.2500 ####[facility] [address] [place], [address] Discharge Instructionon 07 Discharge Instruction Normal [facility] EGD Reporton 05-20-2024 EGD Report Normal [facility] MR/POSTOP.ANEon 05-20-2024 MR/POSTOP.ANE Normal [facility] Basic Metabolic Profile (BMP )on 05-19-2024 BUN/CRE 13.4 RATIO Normal 10-20 [facility] Comment on above: Performed By: #### L 100.0100, L500.2500 ####[facility] [address] [place], [address] CA,Total 8.6 mg/dL Normal 8.5-10.1 [facility] Comment on above: Performed By: #### L 100.0100, L500.2500 ####[facility] [address] [place], [address] Chloride [Moles/Vol] 111 mmol/L High 98-107 [facility] Comment on above: Performed By: #### L 100.0100, L500.2500 ####[facility] [address] [place], [address] CO2 [Moles/Vol] 26.0 mmol/L Normal 21.0-32.0 [facility] Comment on above: Performed By: #### L 100.0100, L500.2500 ####[facility] [address] [place], [address] Creatinine [Mass/Vol] 0.52 mg/dL Low 0.55-1.02 [facility] Comment on above: Result Comment: The validity of the calculated GFR GFRAA in patients over70 years has not been determined. Clinical correlation isessential. Performed By: #### L 100.0100, L500.2500 ####[facility] [address] [place], [address] ECRCL 63.14 ml/min Normal [facility] Comment on above: Performed By: #### L 100.0100, L500.2500 ####[facility] [address] [place], [address] EST GFR - AA 150 mL/min Normal >60 [facility] Comment on above: Result Comment: Afri can Gabonese GFR Calc Performed By: #### L 100.0100, L500.2500 ####[facility] [address] [place], [address] GAP 5 Normal 5-15 [facility] Comment on above: Performed By: #### L 100.0100, L500.2500 ####[facility] [address] [place], [address] GFR/1.73 sq M.predicted among non-blacks MDRD (S/P/Bld) [Vol rate/Area] 124 mL/min/{1.73_m2} Normal >60 [facility] Comment on above: Result Comment: Non- GFR Calc Performed By: #### L 100.0100, L500.2500 ####[facility] [address] [place], [address] Glucose [Mass/Vol] 78 mg/dL Normal 74-106 [facility] Comment on above: Performed By: #### L 100.0100, L500.2500 ####[facility] [address] [place], [address] Potassium [Moles/Vol] 3.9 mmol/L Normal 3.5-5.1 [facility] Comment on above: Performed By: #### L 100.0100, L500.2500 ####[facility] [address] [place], [address] Sodium [Moles/Vol] 142 mmol/L Normal 136-145 [facility] Comment on above: Performed By: #### L 100.0100, L500.2500 ####[facility] [address] [place], [address] Urea nitrogen [Mass/Vol] 7 mg/dL Normal 7-18 [facility] [facility] Comment on above: Performed By: #### L 100.0100, L500.2500 ####[facility] [address] [place], [address] CBC W/Diff, Automatedon 07-0 4-2023 Absolute Lymph 1.18 X10 3/uL Normal 0.83-4.51 [facility] Comment on above: Performed By: #### L 100.0100, L500.2500 ####[facility] [address] [place], [address] Absolute Neut 4.3 X10 3/uL Normal 2.0-7.7 [facility] Comment on above: Performed By: #### L 100.0100, L500.2500 ####[facility] [address] [place], [address] Basophils/100 WBC (Bld) 0.6 % Normal 0-1 [facility] Comment on above: Performed By: #### L 100.0100, L500.2500 ####[facility] [address] [place], [address] Eosinophils/100 WBC (Bld) 2.0 % Normal 0-5 [facility] Comment on above: Performed By: #### L 100.0100, L500.2500 ####[facility] [address] [place], [address] Erythrocyte distribution width (RBC) [Ratio] 19.8 % High 11.6-14.6 [facility] Comment on above: Performed By: #### L 100.0100, L500.2500 ####[facility] [address] [place], [address] Hematocrit (Bld) [Volume fraction] 27.5 % Low 37-47 [facility] Comment on above: Performed By: #### L 100.0100, L500.2500 ####[facility] [address] [place], [address] Hemoglobin (Bld) [Mass/Vol] 8.1 g/dL Low 12.0-15.0 [facility] Comment on above: Performed By: #### L 100.0100, L500.2500 ####[facility] [address] [place], [address] IG% 0.600 Normal 0.0-0.9 [facility] Comment on above: Result Comment: IG% - Immature Granulocytes (promyelocytes, myelocytes andmetamyelocytes) > 1% indicates that a LEFT SHIFT is Present. Performed By: #### L 100.0100, L500.2500 ####[facility] [address] [place], [address] Lymphocytes/100 WBC (Bld) 18.0 % Low 19-41 [facility] Comment on above: Performed By: #### L 100.0100, L500.2500 ####[facility] [address] [place], [address] MCH (RBC) [Entitic mass] 25.0 pg Low 27.0-32.0 [facility] Comment on above: Performed By: #### L 100.0100, L500.2500 ####[facility] [address] [place], [address] MCHC (RBC) [Mass/Vol] 29.5 g/dL Low 32-36 [facility] Comment on above: Performed By: #### L 100.0100, L500.2500 ####[facility] [address] [place], [address] MCV (RBC) [Entitic vol] 84.9 fL Normal 81-99 [facility] Comment on above: Performed By: #### L 100.0100, L500.2500 ####[facility] [address] [place], [address] Monocytes/100 WBC (Bld) 12.4 % High 0-10 [facility] Comment on above: Performed By: #### L 100.0100, L500.2500 ####[facility] [address] [place], [address] Neutrophils/100 WBC (Bld) 66.4 % Normal 47-70 [facility] Comment on above: Performed By: #### L 100.0100, L500.2500 ####[facility] [address] [place], [address] Nucleated RBC (Bld) [#/Vol] 0 10*3/uL Normal 0-5 [facility] Comment on above: Performed By: #### L 100.0100, L500.2500 ####[facility] [address] [place], [address] Platelet mean volume (Bld) [Entitic vol] 9.6 fL Normal 6.2-12.0 [facility] Comment on above: Performed By: #### L 100.0100, L500.2500 ####[facility] [address] [place], [address] Platelets (Bld) [#/Vol] 452 10*3/uL High 150-450 [facility] Comment on above: Performed By: #### L 100.0100, L500.2500 ####[facility] [address] [place], [address] RBC (Bld) [#/Vol] 3.24 10*6/uL Low 4.2-5.4 [facility] Comment on above: Performed By: #### L 100.0100, L500.2500 ####[facility] [address] [place], [address] RDW SD 61.3 fl High 35.1-43.9 [facility] Comment on above: Performed By: #### L 100.0100, L500.2500 ####[facility] [address] [place], [address] WBC (Bld) [#/Vol] 6.5 10*3/uL Normal 4.4-11.0 [facility] Comment on above: Performed By: #### L 100.0100, L500.2500 ####[facility] [address] [place], [address] SMEAR COMMENT SCANNED Normal [facility] Comment on above: Performed By: #### L 100.0100 ####[facility] [address] [place], [address] HH, Hemoglobin AND Hematocri ton 05-19-2024 Hematocrit (Bld) [Volume fraction] 27.4 % Low 37-47 [facility] Comment on above: Performed By: #### L 100.0600 ####[facility] [address] [place], [address] Hemoglobin (Bld) [Mass/Vol] 8.2 g/dL Low 12.0-15.0 [facility] Comment on above: Performed By: #### L 100.0600 ####[facility] [address] [place], [address] BRCon 05-18-2024 RC Normal [facility] Comment on above: Result Comment: [id number] BN RC TRANSFUSED 05/19/24 0149 Performed By: #### B RC ####[facility] [address] [place], [address] CBC W/Diff, Automatedon 07- Anisocytosis Ql (Bld) 2+ Normal [facility] Comment on above: Performed By: #### L 500.4050, L100.0100 ####[facility] [address] [place], [address] Comprehensive Metabolic Prof ilon 05-18-2024 Albumin [Mass/Vol] 3.1 g/dL Low 3.2-5.0 [facility] Comment on above: Performed By: #### L 500.4050, L100.0100 ####[facility] [address] [place], [address] Albumin/Globulin [Mass ratio] 0.9 {ratio} Normal 0.9-2.4 [facility] Comment on above: Performed By: #### L 500.4050, L100.0100 ####[facility] [address] [place], [address] ALK P 78 U/L Normal 45-117 [facility] Comment on above: Performed By: #### L 500.4050, L100.0100 ####[facility] [address] [place], [address] ALT [Catalytic activity/Vol] 37 U/L Normal 13-56 [facility] Comment on above: Performed By: #### L 500.4050, L100.0100 ####[facility] [address] [place], [address] AST [Catalytic activity/Vol] 33 U/L Normal 15-37 [facility] Comment on above: Result Comment: Slig ht Hemolysis, Result may be falsely increased. Performed By: #### L 500.4050, L100.0100 ####[facility] [address] [place], [address] Bilirubin [Mass/Vol] 0.40 mg/dL Normal 0.20-1.00 [facility] Comment on above: Result Comment: For patients on eltrombopag therapy, use of Dimension [place] TBIL is not recommended. Performed By: #### L 500.4050, L100.0100 ####[facility] [address] [place], [address] BUN/CRE 13.2 RATIO Normal 10-20 [facility] Comment on above: Performed By: #### L 500.4050, L100.0100 ####[facility] [address] [place], [address] CA,Total 8.8 mg/dL Normal 8.5-10.1 [facility] Comment on above: Performed By: #### L 500.4050, L100.0100 ####[facility] [address] [place], [address] Chloride [Moles/Vol] 106 mmol/L Normal 98-107 [facility] Comment on above: Performed By: #### L 500.4050, L100.0100 ####[facility] [address] [place], [address] CO2 [Moles/Vol] 23.0 mmol/L Normal 21.0-32.0 [facility] Comment on above: Performed By: #### L 500.4050, L100.0100 ####[facility] [address] [place], [address] Creatinine [Mass/Vol] 0.76 mg/dL Normal 0.55-1.02 [facility] Comment on above: Result Comment: The validity of the calculated GFR GFRAA in patients over70 years has not been determined. Clinical correlation isessential. Performed By: #### L 500.4050, L100.0100 ####[facility] [address] [place], [address] ECRCL 62.68 ml/min Normal [facility] Comment on above: Performed By: #### L 500.4050, L100.0100 ####[facility] [address] [place], [address] EST GFR - AA 98 mL/min Normal >60 [facility] Comment on above: Result Comment: Afri can Gabonese GFR Calc Performed By: #### L 500.4050, L100.0100 ####[facility] [address] [place], [address] GAP 9 Normal 5-15 [facility] Comment on above: Performed By: #### L 500.4050, L100.0100 ####[facility] [address] [place], [address] GFR/1.73 sq M.predicted among non-blacks MDRD (S/P/Bld) [Vol rate/Area] 81 mL/min/{1.73_m2} Normal >60 [facility] Comment on above: Result Comment: Non- GFR Calc Performed By: #### L 500.4050, L100.0100 ####[facility] [address] [place], [address] Globulin (S) [Mass/Vol] 3.5 g/dL Normal 2.2-4.2 [facility] Comment on above: Performed By: #### L 500.4050, L100.0100 ####[facility] [address] [place], [address] Glucose [Mass/Vol] 94 mg/dL Normal 74-106 [facility] Comment on above: Performed By: #### L 500.4050, L100.0100 ####[facility] [address] [place], [address] Potassium [Moles/Vol] 3.9 mmol/L Normal 3.5-5.1 [facility] Comment on above: Result Comment: Slig ht Hemolysis, Result may be falsely increased. Performed By: #### L 500.4050, L100.0100 ####[facility] [address] [place], [address] Sodium [Moles/Vol] 138 mmol/L Normal 136-145 [facility] Comment on above: Performed By: #### L 500.4050, L100.0100 ####[facility] [address] [place], [address] T PROT 6.6 g/dL Normal 6.4-8.2 [facility] Comment on above: Performed By: #### L 500.4050, L100.0100 ####[facility] [address] [place], [address] Urea nitrogen [Mass/Vol] 10 mg/dL Normal 7-18 [facility] Comment on above: Performed By: #### L 500.4050, L100.0100 ####[facility] [address] [place], [address] EGD Reporton 05-18-2024 EGD Report Normal [facility] Emergency Department Summary on 05-18-2024 Emergency Department Summary Normal [facility] H AND P Exam - Hospitaliston 05-18-2024 H&P Exam - Hospitalist Normal [facility] HH, Hemoglobin AND Hematocri ton 05-18-2024 Hematocrit (Bld) [Volume fraction] 24.1 % Low 37-47 [facility] Comment on above: Performed By: #### L 100.0600 ####[facility] [address] [place], [address] Hemoglobin (Bld) [Mass/Vol] 7.1 g/dL Low 12.0-15.0 [facility] Comment on above: Performed By: #### L 100.0600 ####[facility] [address] [place], [address] MR/CON.PCM.GIon 05-18-2024 MR/CON.PCM.GI Normal [facility] MR/POSTOP.ANEon 05-18-2024 MR/POSTOP.ANE Normal [facility] MR/HXUILKEH3xv 05-18-2024 MR/POSTOPAN2 Normal [facility] Stool Occult Blood iFOBon STOB Positive [facility] Comment on above: Performed By: #### B TS, M100.7900 ####[facility] [address] [place], [address] Type AND Screenon 05-18-2024 ABO and Rh group Nom (Bld) Blood group B Rh(D) positive [facility] Comment on above: Order Comment: A Performed By: #### B TS, M100.7900 ####[facility] [address] [place], [address] Culture, Anaerobic Any Sourc terrell 05-14-2024 CUAN No growth in 5 days. Normal [facility] Comment on above: Performed By: #### M 100.4001, M100.2000, L350.1000, M100.2900 ####[facility] [address] [place], [address] Respiratory Cultureon 2023 RESPC List Antibiotics [place] t 48 Hours? levaquin, vancomycin Presumptive C albicans Amount Growth 2+ [facility] Comment on above: Performed By: #### M 100.2000, M100.2400 ####[facility] [address] [place], [address] Basic Metabolic Profile (BMP )on 05-10-2024 BUN/CRE 7.7 RATIO Low 10-20 [facility] Comment on above: Performed By: #### L 500.2500, L100.0100 ####[facility] [address] [place], [address] CA,Total 8.7 mg/dL Normal 8.5-10.1 [facility] Comment on above: Performed By: #### L 500.2500, L100.0100 ####[facility] [address] [place], [address] Chloride [Moles/Vol] 100 mmol/L Normal 98-107 [facility] Comment on above: Performed By: #### L 500.2500, L100.0100 ####[facility] [address] [place], [address] CO2 [Moles/Vol] 39.0 mmol/L High 21.0-32.0 [facility] Comment on above: Performed By: #### L 500.2500, L100.0100 ####[facility] [address] [place], [address] Creatinine [Mass/Vol] 0.52 mg/dL Low 0.55-1.02 [facility] Comment on above: Result Comment: The validity of the calculated GFR GFRAA in patients over70 years has not been determined. Clinical correlation isessential. Performed By: #### L 500.2500, L100.0100 ####[facility] [address] [place], [address] ECRCL 65.30 ml/min Normal [facility] Comment on above: Performed By: #### L 500.2500, L100.0100 ####[facility] [address] [place], [address] EST GFR - AA 151 mL/min Normal >60 [facility] Comment on above: Result Comment: Afri can Gabones[place] GFR Calc Performed By: #### L 500.2500, L100.0100 ####[facility] [address] [place], [address] GAP 2 Low 5-15 [facility] Comment on above: Performed By: #### L 500.2500, L100.0100 ####[facility] [address] [place], [address] GFR/1.73 sq M.predicted among non-blacks MDRD (S/P/Bld) [Vol rate/Area] 125 mL/min/{1.73_m2} Normal >60 [facility] Comment on above: Result Comment: Non- GFR Calc Performed By: #### L 500.2500, L100.0100 ####[facility] [address] [place], [address] Glucose [Mass/Vol] 88 mg/dL Normal 74-106 [facility] Comment on above: Performed By: #### L 500.2500, L100.0100 ####[facility] [address] [place], [address] Potassium [Moles/Vol] 2.6 mmol/L Invalid Interpretation Code 3.5-5.1 [facility] Comment on above: Result Comment: Crit ical Result(s) Called at: 08:07:24 05/10/2024 by:VIVEK Corado. Results read back by same. Performed By: #### L 500.2500, L100.0100 ####[facility] [address] [place], [address] Sodium [Moles/Vol] 141 mmol/L Normal 136-145 [facility] Comment on above: Performed By: #### L 500.2500, L100.0100 ####[facility] [address] [place], [address] Urea nitrogen [Mass/Vol] 4 mg/dL Low 7-18 [facility] Comment on above: Performed By: #### L 500.2500, L100.0100 ####[facility] [address] [place], [address] Bedside Glucoseon 05-10-2024 FINGERSTICK GLU 92 mg/dL Normal 74-106 [facility] Comment on above: Result Comment: SANTANA MARISCAL OF PATIENT CARE PER NURSING PROTOCOL Performed By: #### L 501.080 ####[facility] [address] [place], [address] Body Fluid Cell Count+Diffon 05-10-2024 PATH COMM/BF Reviewed Normal [facility] Comment on above: Order Comment: The r eference interval(s) and other method performancespecifications are unavailable for this body fluid.Comparison of the result with concentration in the blood,serum, or plasma is recommended. Result Comment: Nega tive for malignant cells.Please also refer to cytology report [id number] Oneil M.D. 05/10/24 AMENDED REPORT 05/10/24 1326 PATH COMM/BF previously reported as: May follow Performed By: #### L 200.0200 ####[facility] [address] [place], [address] Body Fluid Culton 05-10-2024 BFC Culture exhibits no growth. Normal [facility] Comment on above: Performed By: #### M 100.4001, M100.2000, L350.1000, M100.2900 ####[facility] [address] [place], [address] CBC W/Diff, Automatedon 04-17 Absolute Lymph 0.73 X10 3/uL Low 0.83-4.51 [facility] Comment on above: Performed By: #### L 500.2500, L100.0100 ####[facility] [address] [place], [address] Absolute Neut 5.5 X10 3/uL Normal 2.0-7.7 [facility] Comment on above: Performed By: #### L 500.2500, L100.0100 ####[facility] [address] [place], [address] Basophils/100 WBC (Bld) 0.6 % Normal 0-1 [facility] Comment on above: Performed By: #### L 500.2500, L100.0100 ####[facility] [address] [place], [address] Eosinophils/100 WBC (Bld) 2.1 % Normal 0-5 [facility] Comment on above: Performed By: #### L 500.2500, L100.0100 ####[facility] [address] [place], [address] Erythrocyte distribution width (RBC) [Ratio] 19.9 % High 11.6-14.6 [facility] Comment on above: Performed By: #### L 500.2500, L100.0100 ####[facility] [address] [place], [address] Hematocrit (Bld) [Volume fraction] 30.0 % Low 37-47 [facility] Comment on above: Performed By: #### L 500.2500, L100.0100 ####[facility] [address] [place], [address] Hemoglobin (Bld) [Mass/Vol] 8.8 g/dL Low 12.0-15.0 [facility] Comment on above: Performed By: #### L 500.2500, L100.0100 ####[facility] [address] [place], [address] IG% 0.600 Normal 0.0-0.9 [facility] Comment on above: Result Comment: IG% - Immature Granulocytes (promyelocytes, myelocytes andmetamyelocytes) > 1% indicates that a LEFT SHIFT is Present. Performed By: #### L 500.2500, L100.0100 ####[facility] [address] [place], [address] Lymphocytes/100 WBC (Bld) 10.4 % Low 19-41 [facility] Comment on above: Performed By: #### L 500.2500, L100.0100 ####[facility] [address] [place], [address] MCH (RBC) [Entitic mass] 24.2 pg Low 27.0-32.0 [facility] Comment on above: Performed By: #### L 500.2500, L100.0100 ####[facility] [address] [place], [address] MCHC (RBC) [Mass/Vol] 29.3 g/dL Low 32-36 [facility] Comment on above: Performed By: #### L 500.2500, L100.0100 ####[facility] [address] [place], [address] MCV (RBC) [Entitic vol] 82.6 fL Normal 81-99 [facility] Comment on above: Performed By: #### L 500.2500, L100.0100 ####[facility] [address] [place], [address] Monocytes/100 WBC (Bld) 8.2 % Normal 0-10 [facility] Comment on above: Performed By: #### L 500.2500, L100.0100 ####[facility] [address] [place], [address] Neutrophils/100 WBC (Bld) 78.1 % High 47-70 [facility] Comment on above: Performed By: #### L 500.2500, L100.0100 ####[facility] [address] [place], [address] Nucleated RBC (Bld) [#/Vol] 0 10*3/uL Normal 0-5 [facility] Comment on above: Performed By: #### L 500.2500, L100.0100 ####[facility] [address] [place], [address] Platelet mean volume (Bld) [Entitic vol] 11.1 fL Normal 6.2-12.0 [facility] Comment on above: Performed By: #### L 500.2500, L100.0100 ####[facility] [address] [place], [address] Platelets (Bld) [#/Vol] 243 10*3/uL Normal 150-450 [facility] Comment on above: Performed By: #### L 500.2500, L100.0100 ####[facility] [address] [place], [address] RBC (Bld) [#/Vol] 3.63 10*6/uL Low 4.2-5.4 [facility] Comment on above: Performed By: #### L 500.2500, L100.0100 ####[facility] [address] [place], [address] RDW SD 59.7 fl High 35.1-43.9 [facility] Comment on above: Performed By: #### L 500.2500, L100.0100 ####[facility] [address] [place], [address] WBC (Bld) [#/Vol] 7.0 10*3/uL Normal 4.4-11.0 [facility] Comment on above: Performed By: #### L 500.2500, L100.0100 ####[facility] [address] [place], [address] Culture, Blood (WB)on 2023 CUB LEFT HAND No growth in 5 days. Normal [facility] Comment on above: Performed By: #### M 200.1000 ####[facility] [address] [place], [address] CUB No growth in 5 days. Normal [facility] Comment on above: Performed By: #### M 200.1000 ####[facility] [address] [place], [address] MR/PN.GIon 05-10-2024 MR/PN.GI Normal [facility] Potassiumon 05-10-2024 Potassium [Moles/Vol] 3.0 mmol/L Low 3.5-5.1 [facility] Comment on above: Performed By: #### L 501.5600 ####[facility] [address] [place], [address] CBC W/Diff, Automatedon 04-17 Absolute Lymph 0.72 X10 3/uL Low 0.83-4.51 [facility] Comment on above: Performed By: #### L 100.0100, L501.2300, L300.3900 ####[facility] [address] [place], [address] Absolute Neut 5.2 X10 3/uL Normal 2.0-7.7 [facility] Comment on above: Performed By: #### L 100.0100, L501.2300, L300.3900 ####[facility] [address] [place], [address] Basophils/100 WBC (Bld) 0.7 % Normal 0-1 [facility] Comment on above: Performed By: #### L 100.0100, L501.2300, L300.3900 ####[facility] [address] [place], [address] Eosinophils/100 WBC (Bld) 2.4 % Normal 0-5 [facility] Comment on above: Performed By: #### L 100.0100, L501.2300, L300.3900 ####[facility] [address] [place], [address] Erythrocyte distribution width (RBC) [Ratio] 19.6 % High 11.6-14.6 [facility] Comment on above: Performed By: #### L 100.0100, L501.2300, L300.3900 ####[facility] [address] [place], [address] Hematocrit (Bld) [Volume fraction] 28.1 % Low 37-47 [facility] Comment on above: Performed By: #### L 100.0100, L501.2300, L300.3900 ####[facility] [address] [place], [address] Hemoglobin (Bld) [Mass/Vol] 8.2 g/dL Low 12.0-15.0 [facility] Comment on above: Performed By: #### L 100.0100, L501.2300, L300.3900 ####[facility] [address] [place], [address] IG% 0.400 Normal 0.0-0.9 [facility] Comment on above: Result Comment: IG% - Immature Granulocytes (promyelocytes, myelocytes andmetamyelocytes) > 1% indicates that a LEFT SHIFT is Present. Performed By: #### L 100.0100, L501.2300, L300.3900 ####[facility] [address] [place], [address] Lymphocytes/100 WBC (Bld) 10.6 % Low 19-41 [facility] Comment on above: Performed By: #### L 100.0100, L501.2300, L300.3900 ####[facility] [address] [place], [address] MCH (RBC) [Entitic mass] 24.4 pg Low 27.0-32.0 [facility] Comment on above: Performed By: #### L 100.0100, L501.2300, L300.3900 ####[facility] [address] [place], [address] MCHC (RBC) [Mass/Vol] 29.2 g/dL Low 32-36 [facility] Comment on above: Performed By: #### L 100.0100, L501.2300, L300.3900 ####[facility] [address] [place], [address] MCV (RBC) [Entitic vol] 83.6 fL Normal 81-99 [facility] Comment on above: Performed By: #### L 100.0100, L501.2300, L300.3900 ####[facility] [address] [place], [address] Monocytes/100 WBC (Bld) 9.7 % Normal 0-10 [facility] Comment on above: Performed By: #### L 100.0100, L501.2300, L300.3900 ####[facility] [address] [place], [address] Neutrophils/100 WBC (Bld) 76.2 % High 47-70 [facility] Comment on above: Performed By: #### L 100.0100, L501.2300, L300.3900 ####[facility] [address] [place], [address] Nucleated RBC (Bld) [#/Vol] 0 10*3/uL Normal 0-5 [facility] Comment on above: Performed By: #### L 100.0100, L501.2300, L300.3900 ####[facility] [address] [place], [address] Platelet mean volume (Bld) [Entitic vol] 10.8 fL Normal 6.2-12.0 [facility] Comment on above: Performed By: #### L 100.0100, L501.2300, L300.3900 ####[facility] [address] [place], [address] Platelets (Bld) [#/Vol] 223 10*3/uL Normal 150-450 [facility] Comment on above: Performed By: #### L 100.0100, L501.2300, L300.3900 ####[facility] [address] [place], [address] RBC (Bld) [#/Vol] 3.36 10*6/uL Low 4.2-5.4 [facility] Comment on above: Performed By: #### L 100.0100, L501.2300, L300.3900 ####[facility] [address] [place], [address] RDW SD 59.8 fl High 35.1-43.9 [facility] Comment on above: Performed By: #### L 100.0100, L501.2300, L300.3900 ####[facility] [address] [place], [address] WBC (Bld) [#/Vol] 6.8 10*3/uL Normal 4.4-11.0 [facility] Comment on above: Performed By: #### L 100.0100, L501.2300, L300.3900 ####[facility] [address] [place], [address] Chest Insp/Exp 2 Viewon 04-17 Chest Insp/Exp 2 View Normal [facility] Comprehensive Metabolic Prof ilon 05-09-2024 Albumin/Globulin [Mass ratio] 0.7 {ratio} Low 0.9-2.4 [facility] Comment on above: Performed By: #### L 501.5200, L500.3400, L504.2610, L500.4050 ####[facility] [address] [place], [address] BUN/CRE 5.4 RATIO Low 10-20 [facility] Comment on above: Performed By: #### L 501.5200, L500.3400, L504.2610, L500.4050 ####[facility] [address] [place], [address] CA,Total 8.5 mg/dL Normal 8.5-10.1 [facility] Comment on above: Performed By: #### L 501.5200, L500.3400, L504.2610, L500.4050 ####[facility] [address] [place], [address] Chloride [Moles/Vol] 105 mmol/L Normal 98-107 [facility] Comment on above: Performed By: #### L 501.5200, L500.3400, L504.2610, L500.4050 ####[facility] [address] [place], [address] CO2 [Moles/Vol] 30.0 mmol/L Normal 21.0-32.0 [facility] Comment on above: Performed By: #### L 501.5200, L500.3400, L504.2610, L500.4050 ####[facility] [address] [place], [address] Creatinine [Mass/Vol] 0.55 mg/dL Normal 0.55-1.02 [facility] Comment on above: Result Comment: The validity of the calculated GFR GFRAA in patients over70 years has not been determined. Clinical correlation isessential. Performed By: #### L 501.5200, L500.3400, L504.2610, L500.4050 ####[facility] [address] [place], [address] ECRCL 65.30 ml/min Normal [facility] Comment on above: Performed By: #### L 501.5200, L500.3400, L504.2610, L500.4050 ####[facility] [address] [place], [address] EST GFR - AA 141 mL/min Normal >60 [facility] Comment on above: Result Comment: Afri can Gabonese GFR Calc Performed By: #### L 501.5200, L500.3400, L504.2610, L500.4050 ####[facility] [address] [place], [address] GAP 4 Low 5-15 [facility] Comment on above: Performed By: #### L 501.5200, L500.3400, L504.2610, L500.4050 ####[facility] [address] [place], [address] GFR/1.73 sq M.predicted among non-blacks MDRD (S/P/Bld) [Vol rate/Area] 117 mL/min/{1.73_m2} Normal >60 [facility] Comment on above: Result Comment: Non- GFR Calc Performed By: #### L 501.5200, L500.3400, L504.2610, L500.4050 ####[facility] [address] [place], [address] Glucose [Mass/Vol] 89 mg/dL Normal 74-106 [facility] Comment on above: Performed By: #### L 501.5200, L500.3400, L504.2610, L500.4050 ####[facility] [address] [place], [address] Potassium [Moles/Vol] 3.6 mmol/L Normal 3.5-5.1 [facility] Comment on above: Result Comment: Mode rate Hemolysis, Result may be falsely increased. Performed By: #### L 501.5200, L500.3400, L504.2610, L500.4050 ####[facility] [address] [place], [address] Sodium [Moles/Vol] 139 mmol/L Normal 136-145 [facility] Comment on above: Performed By: #### L 501.5200, L500.3400, L504.2610, L500.4050 ####[facility] [address] [place], [address] Urea nitrogen [Mass/Vol] 3 mg/dL Low 7-18 [facility] Comment on above: Performed By: #### L 501.5200, L500.3400, L504.2610, L500.4050 ####[facility] [address] [place], [address] Cytology, Body Fluid / CSFon 05-09-2024 CYTOLOGY,BF/CSF SEE PATHOLOGY REPORT Normal [facility] Comment on above: Result Comment: Spec imen submitted to Anatomical Pathology Department fortesting. Performed By: #### M 100.4001, M100.2000, L350.1000, M100.2900 ####[facility] [address] [place], [address] ER (initial)on 05-09-2024 ER (initial) Normal [facility] Comment on above: Performed By: #### P ER ####[facility] [address] [place], [address] Glucose, Body Fluidon 2023 GLU,BF 100 mg/dL High 40-70 [facility] Comment on above: Performed By: #### L 503.0100, L503.0300, L504.0250 ####[facility] [address] [place], [address] Gram Stainon 05-09-2024 GS List Antibiotics Las t 48 Hours? levaquin, vancomycin Acceptable Specimen? Yes (<25 Epithelial cells per/lpf) Gram Stain 2+ Yeast Like Organisms 2+ White Blood Cells 2+ Epithelial cells 2+ Gram positive rods Normal [facility] Comment on above: Performed By: #### M 100.2000, M100.2400 ####[facility] [address] [place], [address] GS Centrifuged Specimen ? Culture performed on centrifuged specimen Gram Stain No organisms seen Rare Red Blood Cells No White Blood Cells Normal [facility] Comment on above: Performed By: #### M 100.4001, M100.2000, L350.1000, M100.2900 ####[facility] [address] [place], [address] LDHon 05-09-2024 LDH 407 U/L High 84-246 [facility] Comment on above: Result Comment: Mode rate Hemolysis, Result may be falsely increased. Performed By: #### L 501.5200, L500.3400, L504.2610, L500.4050 ####[facility] [address] [place], [address] LDH,Body Fluidon 05-09-2024 LDH,BF 57 Units/L Normal Not Establ. [facility] Comment on above: Performed By: #### L 503.0100, L503.0300, L504.0250 ####[facility] [address] [place], [address] Liver Profileon 05-09-2024 Albumin [Mass/Vol] 2.3 g/dL Low 3.2-5.0 [facility] Comment on above: Performed By: #### L 501.5200, L500.3400, L504.2610, L500.4050 ####[facility] [address] [place], [address] ALK P 59 U/L Normal 45-117 [facility] Comment on above: Performed By: #### L 501.5200, L500.3400, L504.2610, L500.4050 ####[facility] [address] [place], [address] ALT [Catalytic activity/Vol] 11 U/L Low 13-56 [facility] Comment on above: Performed By: #### L 501.5200, L500.3400, L504.2610, L500.4050 ####[facility] [address] [place], [address] AST [Catalytic activity/Vol] 30 U/L Normal 15-37 [facility] Comment on above: Result Comment: Mode rate Hemolysis, Result may be falsely increased. Performed By: #### L 501.5200, L500.3400, L504.2610, L500.4050 ####[facility] [address] [place], [address] Bilirubin [Mass/Vol] 0.60 mg/dL Normal 0.20-1.00 [facility] Comment on above: Result Comment: For patients on eltrombopag therapy, use of Dimension [place] TBIL is not recommended. Performed By: #### L 501.5200, L500.3400, L504.2610, L500.4050 ####[facility] [address] [place], [address] Bilirubin.direct [Mass/Vol] 0.06 mg/dL Normal 0.00-0.30 [facility] Comment on above: Performed By: #### L 501.5200, L500.3400, L504.2610, L500.4050 ####[facility] [address] [place], [address] Globulin (S) [Mass/Vol] 3.2 g/dL Normal 2.2-4.2 [facility] Comment on above: Performed By: #### L 501.5200, L500.3400, L504.2610, L500.4050 ####[facility] [address] [place], [address] T PROT 5.5 g/dL Low 6.4-8.2 [facility] Comment on above: Performed By: #### L 501.5200, L500.3400, L504.2610, L500.4050 ####[facility] [address] [place], [address] MR/PN.GIon 05-09-2024 MR/PN.GI Normal [facility] Magnesiumon 05-09-2024 Magnesium [Mass/Vol] 1.8 mg/dL Normal 1.6-2.6 [facility] Comment on above: Result Comment: Mode rate Hemolysis, Result may be falsely increased. Performed By: #### L 501.5200, L500.3400, L504.2610, L500.4050 ####[facility] [address] [place], [address] Phosphoruson 05-09-2024 Phosphate [Mass/Vol] 2.5 mg/dL Normal 2.5-4.9 [facility] Comment on above: Performed By: #### L 100.0100, L501.2300, L300.3900 ####[facility] [address] [place], [address] Protein, Body Fluidon 2023 Protein [Mass/Vol] 1.3 g/dL Normal Not Establ. [facility] Comment on above: Performed By: #### L 503.0100, L503.0300, L504.0250 ####[facility] [address] [place], [address] Prothrombin Time w/INRon INR Coag (PPP) [Relative time] 1.2 {INR} Normal [facility] Comment on above: Performed By: #### L 100.0100, L501.2300, L300.3900 ####[facility] [address] [place], [address] PT Coag (PPP) [Time] 15.3 s High 11.7-14.9 [facility] Comment on above: Performed By: #### L 100.0100, L501.2300, L300.3900 ####[facility] [address] [place], [address] Special Stain Group IIon Special Stain Group II Normal [facility] Comment on above: Performed By: #### P SSII ####[facility] [address] [place], [address] Thoracentesis W USon 024 Thoracentesis W US Normal [facility] Basic Metabolic Profile (BMP )on 05-08-2024 BUN/CRE 6.0 RATIO Low 10-20 [facility] Comment on above: Performed By: #### L 100.0100, L500.2500 ####[facility] [address] [place], [address] CA,Total 8.3 mg/dL Low 8.5-10.1 [facility] Comment on above: Performed By: #### L 100.0100, L500.2500 ####[facility] [address] [place], [address] Chloride [Moles/Vol] 104 mmol/L Normal 98-107 [facility] Comment on above: Performed By: #### L 100.0100, L500.2500 ####[facility] [address] [place], [address] CO2 [Moles/Vol] 31.0 mmol/L Normal 21.0-32.0 [facility] Comment on above: Performed By: #### L 100.0100, L500.2500 ####[facility] [address] [place], [address] Creatinine [Mass/Vol] 0.66 mg/dL Normal 0.55-1.02 [facility] Comment on above: Result Comment: The validity of the calculated GFR GFRAA in patients over70 years has not been determined. Clinical correlation isessential. Performed By: #### L 100.0100, L500.2500 ####[facility] [address] [place], [address] ECRCL 64.43 ml/min Normal [facility] Comment on above: Performed By: #### L 100.0100, L500.2500 ####[facility] [address] [place], [address] EST GFR - AA 114 mL/min Normal >60 [facility] Comment on above: Result Comment: Afri can Gabonese GFR Calc Performed By: #### L 100.0100, L500.2500 ####[facility] [address] [place], [address] GAP 5 Normal 5-15 [facility] Comment on above: Performed By: #### L 100.0100, L500.2500 ####[facility] [address] [place], [address] GFR/1.73 sq M.predicted among non-blacks MDRD (S/P/Bld) [Vol rate/Area] 94 mL/min/{1.73_m2} Normal >60 [facility] Comment on above: Result Comment: Non- GFR Calc Performed By: #### L 100.0100, L500.2500 ####[facility] [address] [place], [address] Glucose [Mass/Vol] 88 mg/dL Normal 74-106 [facility] Comment on above: Performed By: #### L 100.0100, L500.2500 ####[facility] [address] [place], [address] Potassium [Moles/Vol] 2.9 mmol/L Low 3.5-5.1 [facility] Comment on above: Performed By: #### L 100.0100, L500.2500 ####[facility] [address] [place], [address] Sodium [Moles/Vol] 140 mmol/L Normal 136-145 [facility] Comment on above: Performed By: #### L 100.0100, L500.2500 ####[facility] [address] [place], [address] Urea nitrogen [Mass/Vol] 4 mg/dL Low 7-18 [facility] Comment on above: Performed By: #### L 100.0100, L500.2500 ####[facility] [address] [place], [address] CBC W/Diff, Automatedon -12 19-2023 Absolute Lymph 0.89 X10 3/uL Normal 0.83-4.51 [facility] Comment on above: Performed By: #### L 100.0100, L500.2500 ####[facility] [address] [place], [address] Absolute Neut 5.1 X10 3/uL Normal 2.0-7.7 [facility] Comment on above: Performed By: #### L 100.0100, L500.2500 ####[facility] [address] [place], [address] Basophils/100 WBC (Bld) 0.4 % Normal 0-1 [facility] Comment on above: Performed By: #### L 100.0100, L500.2500 ####[facility] [address] [place], [address] Eosinophils/100 WBC (Bld) 0.6 % Normal 0-5 [facility] Comment on above: Performed By: #### L 100.0100, L500.2500 ####[facility] [address] [place], [address] Erythrocyte distribution width (RBC) [Ratio] 19.3 % High 11.6-14.6 [facility] Comment on above: Performed By: #### L 100.0100, L500.2500 ####[facility] [address] [place], [address] Hematocrit (Bld) [Volume fraction] 29.1 % Low 37-47 [facility] Comment on above: Performed By: #### L 100.0100, L500.2500 ####[facility] [address] [place], [address] Hemoglobin (Bld) [Mass/Vol] 8.2 g/dL Low 12.0-15.0 [facility] Comment on above: Performed By: #### L 100.0100, L500.2500 ####[facility] [address] [place], [address] IG% 0.900 Normal 0.0-0.9 [facility] Comment on above: Result Comment: IG% - Immature Granulocytes (promyelocytes, myelocytes andmetamyelocytes) > 1% indicates that a LEFT SHIFT is Present. Performed By: #### L 100.0100, L500.2500 ####[facility] [address] [place], [address] Lymphocytes/100 WBC (Bld) 12.9 % Low 19-41 [facility] Comment on above: Performed By: #### L 100.0100, L500.2500 ####[facility] [address] [place], [address] MCH (RBC) [Entitic mass] 24.4 pg Low 27.0-32.0 [facility] Comment on above: Performed By: #### L 100.0100, L500.2500 ####[facility] [address] [place], [address] MCHC (RBC) [Mass/Vol] 28.2 g/dL Low 32-36 [facility] Comment on above: Performed By: #### L 100.0100, L500.2500 ####[facility] [address] [place], [address] MCV (RBC) [Entitic vol] 86.6 fL Normal 81-99 [facility] Comment on above: Performed By: #### L 100.0100, L500.2500 ####[facility] [address] [place], [address] Monocytes/100 WBC (Bld) 10.9 % High 0-10 [facility] Comment on above: Performed By: #### L 100.0100, L500.2500 ####[facility] [address] [place], [address] Neutrophils/100 WBC (Bld) 74.3 % High 47-70 [facility] Comment on above: Performed By: #### L 100.0100, L500.2500 ####[facility] [address] [place], [address] Nucleated RBC (Bld) [#/Vol] 0 10*3/uL Normal 0-5 [facility] Comment on above: Performed By: #### L 100.0100, L500.2500 ####[facility] [address] [place], [address] Platelet mean volume (Bld) [Entitic vol] 10.6 fL Normal 6.2-12.0 [facility] Comment on above: Performed By: #### L 100.0100, L500.2500 ####[facility] [address] [place], [address] Platelets (Bld) [#/Vol] 218 10*3/uL Normal 150-450 [facility] Comment on above: Performed By: #### L 100.0100, L500.2500 ####[facility] [address] [place], [address] RBC (Bld) [#/Vol] 3.36 10*6/uL Low 4.2-5.4 [facility] Comment on above: Performed By: #### L 100.0100, L500.2500 ####[facility] [address] [place], [address] RDW SD 61.9 fl High 35.1-43.9 [facility] Comment on above: Performed By: #### L 100.0100, L500.2500 ####[facility] [address] [place], [address] WBC (Bld) [#/Vol] 6.9 10*3/uL Normal 4.4-11.0 [facility] Comment on above: Performed By: #### L 100.0100, L500.2500 ####[facility] [address] [place], [address] Vancomycin, Trough Levelon 0 05-08-2024 VANCO, TROUGH 15.6 ug/mL High 5.0-15.0 [facility] Comment on above: Order Comment: Comme nts: Trough to be drawn 30 mins prior to scheduled [id number] Result Comment: VANC OMYCIN STANDARED DRUG THERAPY TROUGH LEVEL: 5.0 - 15.0 mg/LVANCOMYCIN HIGH INTENSITY THERAPY TROUGH LEVEL: 15.0 - 20.0 mg/LHigh Intensity therapy recommended for serious lifethreatening infections include:- Rclzzpqbxo-Mcstihycgsfp-Itbsrusrh (Ventilator/Healtcare Associated)-SepsisPLEASE CONTACT PHARMACY SERVICES (#9096) FOR INTERPRETATIONOF RESULTS. Performed By: #### L 501.5620 ####[facility] [address] [place], [address] Basic Metabolic Profile (BMP )on 05-07-2024 BUN/CRE 12.1 RATIO Normal - [facility] Comment on above: Performed By: #### L 100.0100, L501.5200, L500.2500 ####[facility] [address] [place], [address] CA,Total 8.2 mg/dL Low 8.5-10.1 [facility] Comment on above: Performed By: #### L 100.0100, L501.5200, L500.2500 ####[facility] [address] [place], [address] Chloride [Moles/Vol] 107 mmol/L Normal 98-107 [facility] Comment on above: Performed By: #### L 100.0100, L501.5200, L500.2500 ####[facility] [address] [place], [address] CO2 [Moles/Vol] 29.0 mmol/L Normal 21.0-32.0 [facility] Comment on above: Performed By: #### L 100.0100, L501.5200, L500.2500 ####[facility] [address] [place], [address] Creatinine [Mass/Vol] 0.66 mg/dL Normal 0.55-1.02 [facility] Comment on above: Result Comment: The validity of the calculated GFR GFRAA in patients over70 years has not been determined. Clinical correlation isessential. Performed By: #### L 100.0100, L501.5200, L500.2500 ####[facility] [address] [place], [address] ECRCL 63.90 ml/min Normal [facility] Comment on above: Performed By: #### L 100.0100, L501.5200, L500.2500 ####[facility] [address] [place], [address] EST GFR - AA 114 mL/min Normal >60 [facility] Comment on above: Result Comment: Afri can Gabonese GFR Calc Performed By: #### L 100.0100, L501.5200, L500.2500 ####[facility] [address] [place], [address] GAP 4 Low 5-15 [facility] Comment on above: Performed By: #### L 100.0100, L501.5200, L500.2500 ####[facility] [address] [place], [address] GFR/1.73 sq M.predicted among non-blacks MDRD (S/P/Bld) [Vol rate/Area] 95 mL/min/{1.73_m2} Normal >60 [facility] Comment on above: Result Comment: Non- GFR Calc Performed By: #### L 100.0100, L501.5200, L500.2500 ####[facility] [address] [place], [address] Glucose [Mass/Vol] 87 mg/dL Normal 74-106 [facility] Comment on above: Performed By: #### L 100.0100, L501.5200, L500.2500 ####[facility] [address] [place], [address] Potassium [Moles/Vol] 3.3 mmol/L Low 3.5-5.1 [facility] Comment on above: Performed By: #### L 100.0100, L501.5200, L500.2500 ####[facility] [address] [place], [address] Sodium [Moles/Vol] 140 mmol/L Normal 136-145 [facility] Comment on above: Performed By: #### L 100.0100, L501.5200, L500.2500 ####[facility] [address] [place], [address] Urea nitrogen [Mass/Vol] 8 mg/dL Normal 7-18 [facility] Comment on above: Performed By: #### L 100.0100, L501.5200, L500.2500 ####[facility] [address] [place], [address] CBC W/Diff, Automatedon 06-2 2-2024 Absolute Lymph 0.62 X10 3/uL Low 0.83-4.51 [facility] Comment on above: Performed By: #### L 100.0100, L501.5200, L500.2500 ####[facility] [address] [place], [address] Absolute Neut 7.9 X10 3/uL High 2.0-7.7 [facility] Comment on above: Performed By: #### L 100.0100, L501.5200, L500.2500 ####[facility] [address] [place], [address] Basophils/100 WBC (Bld) 0.2 % Normal 0-1 [facility] Comment on above: Performed By: #### L 100.0100, L501.5200, L500.2500 ####[facility] [address] [place], [address] Eosinophils/100 WBC (Bld) 0.1 % Normal 0-5 [facility] Comment on above: Performed By: #### L 100.0100, L501.5200, L500.2500 ####[facility] [address] [place], [address] Erythrocyte distribution width (RBC) [Ratio] 19.1 % High 11.6-14.6 [facility] Comment on above: Performed By: #### L 100.0100, L501.5200, L500.2500 ####[facility] [address] [place], [address] Hematocrit (Bld) [Volume fraction] 27.9 % Low 37-47 [facility] Comment on above: Performed By: #### L 100.0100, L501.5200, L500.2500 ####[facility] [address] [place], [address] Hemoglobin (Bld) [Mass/Vol] 7.8 g/dL Low 12.0-15.0 [facility] Comment on above: Performed By: #### L 100.0100, L501.5200, L500.2500 ####[facility] [address] [place], [address] IG% 1.100 High 0.0-0.9 [facility] Comment on above: Result Comment: IG% - Immature Granulocytes (promyelocytes, myelocytes andmetamyelocytes) > 1% indicates that a LEFT SHIFT is Present. Performed By: #### L 100.0100, L501.5200, L500.2500 ####[facility] [address] [place], [address] Lymphocytes/100 WBC (Bld) 6.6 % Low 19-41 [facility] Comment on above: Performed By: #### L 100.0100, L501.5200, L500.2500 ####[facility] [address] [place], [address] MCH (RBC) [Entitic mass] 24.4 pg Low 27.0-32.0 [facility] Comment on above: Performed By: #### L 100.0100, L501.5200, L500.2500 ####[facility] [address] [place], [address] MCHC (RBC) [Mass/Vol] 28.0 g/dL Low 32-36 [facility] Comment on above: Performed By: #### L 100.0100, L501.5200, L500.2500 ####[facility] [address] [place], [address] MCV (RBC) [Entitic vol] 87.2 fL Normal 81-99 [facility] Comment on above: Performed By: #### L 100.0100, L501.5200, L500.2500 ####[facility] [address] [place], [address] Monocytes/100 WBC (Bld) 8.4 % Normal 0-10 [facility] Comment on above: Performed By: #### L 100.0100, L501.5200, L500.2500 ####[facility] [address] [place], [address] Neutrophils/100 WBC (Bld) 83.6 % High 47-70 [facility] Comment on above: Performed By: #### L 100.0100, L501.5200, L500.2500 ####[facility] [address] [place], [address] Nucleated RBC (Bld) [#/Vol] 0 10*3/uL Normal 0-5 [facility] Comment on above: Performed By: #### L 100.0100, L501.5200, L500.2500 ####[facility] [address] [place], [address] Platelet mean volume (Bld) [Entitic vol] 10.6 fL Normal 6.2-12.0 [facility] Comment on above: Performed By: #### L 100.0100, L501.5200, L500.2500 ####[facility] [address] [place], [address] Platelets (Bld) [#/Vol] 234 10*3/uL Normal 150-450 [facility] Comment on above: Performed By: #### L 100.0100, L501.5200, L500.2500 ####[facility] [address] [place], [address] RBC (Bld) [#/Vol] 3.20 10*6/uL Low 4.2-5.4 [facility] Comment on above: Performed By: #### L 100.0100, L501.5200, L500.2500 ####[facility] [address] [place], [address] RDW SD 61.4 fl High 35.1-43.9 [facility] Comment on above: Performed By: #### L 100.0100, L501.5200, L500.2500 ####[facility] [address] [place], [address] WBC (Bld) [#/Vol] 9.4 10*3/uL Normal 4.4-11.0 [facility] Comment on above: Performed By: #### L 100.0100, L501.5200, L500.2500 ####[facility] [address] [place], [address] CTA Chest W/WO Contraston CTA Chest W/WO Contrast Normal [facility] Chest 1 View (Portable)on Chest 1 View (Portable) Normal [facility] Magnesiumon 05-07-2024 Magnesium [Mass/Vol] 1.7 mg/dL Normal 1.6-2.6 [facility] Comment on above: Performed By: #### L 100.0100, L501.5200, L500.2500 ####[facility] [address] [place], [address] Renin, Plasmaon 05-07-2024 RENIN, PLASMA 4.548 ng/mL/hr Normal 0.167-5.38 0 [facility] Comment on above: Order Comment: Test( s) 001350-Isygi Activity, Plasmawas developed and its performance characteristicsdetermined by [employer]. It has not been cleared or approvedby the Food and Drug Administration. Result Comment: Perf ormed at: [address] [id number] Director: Chris Mahajan MD, Phone: [phone] Performed By: #### L 3400.4000, L506.1000, L100.0500, L509.1000, L500.4100, L502.0250, L500.4050 ####[facility] [address] [place], [address] Basic Metabolic Profile (BMP )on 05-06-2024 BUN/CRE 6.0 RATIO Low 10-20 [facility] Comment on above: Performed By: #### L 500.2500, L100.0100 ####[facility] [address] [place], [address] CA,Total 8.4 mg/dL Low 8.5-10.1 [facility] Comment on above: Performed By: #### L 500.2500, L100.0100 ####[facility] [address] [place], [address] Chloride [Moles/Vol] 106 mmol/L Normal 98-107 [facility] Comment on above: Performed By: #### L 500.2500, L100.0100 ####[facility] [address] [place], [address] CO2 [Moles/Vol] 28.0 mmol/L Normal 21.0-32.0 [facility] Comment on above: Performed By: #### L 500.2500, L100.0100 ####[facility] [address] [place], [address] Creatinine [Mass/Vol] 0.66 mg/dL Normal 0.55-1.02 [facility] Comment on above: Result Comment: The validity of the calculated GFR GFRAA in patients over70 years has not been determined. Clinical correlation isessential. Performed By: #### L 500.2500, L100.0100 ####[facility] [address] [place], [address] ECRCL 63.90 ml/min Normal [facility] Comment on above: Performed By: #### L 500.2500, L100.0100 ####[facility] [address] [place], [address] EST GFR - AA 115 mL/min Normal >60 [facility] Comment on above: Result Comment: Afri can Gabonese GFR Calc Performed By: #### L 500.2500, L100.0100 ####[facility] [address] [place], [address] GAP 7 Normal 5-15 [facility] Comment on above: Performed By: #### L 500.2500, L100.0100 ####[facility] [address] [place], [address] GFR/1.73 sq M.predicted among non-blacks MDRD (S/P/Bld) [Vol rate/Area] 95 mL/min/{1.73_m2} Normal >60 [facility] Comment on above: Result Comment: Non- GFR Calc Performed By: #### L 500.2500, L100.0100 ####[facility] [address] [place], [address] Glucose [Mass/Vol] 64 mg/dL Low 74-106 [facility] Comment on above: Performed By: #### L 500.2500, L100.0100 ####[facility] [address] [place], [address] Potassium [Moles/Vol] 3.4 mmol/L Low 3.5-5.1 [facility] Comment on above: Performed By: #### L 500.2500, L100.0100 ####[facility] [address] [place], [address] Sodium [Moles/Vol] 141 mmol/L Normal 136-145 [facility] Comment on above: Performed By: #### L 500.2500, L100.0100 ####[facility] [address] [place], [address] Urea nitrogen [Mass/Vol] 4 mg/dL Low 7-18 [facility] Comment on above: Performed By: #### L 500.2500, L100.0100 ####[facility] [address] [place], [address] CBC W/Diff, Automatedon 06- Absolute Lymph 0.86 X10 3/uL Normal 0.83-4.51 [facility] Comment on above: Performed By: #### L 500.2500, L100.0100 ####[facility] [address] [place], [address] Absolute Neut 6.0 X10 3/uL Normal 2.0-7.7 [facility] Comment on above: Performed By: #### L 500.2500, L100.0100 ####[facility] [address] [place], [address] Basophils/100 WBC (Bld) 0.4 % Normal 0-1 [facility] Comment on above: Performed By: #### L 500.2500, L100.0100 ####[facility] [address] [place], [address] Eosinophils/100 WBC (Bld) 0.3 % Normal 0-5 [facility] Comment on above: Performed By: #### L 500.2500, L100.0100 ####[facility] [address] [place], [address] Erythrocyte distribution width (RBC) [Ratio] 19.2 % High 11.6-14.6 [facility] Comment on above: Performed By: #### L 500.2500, L100.0100 ####[facility] [address] [place], [address] Hematocrit (Bld) [Volume fraction] 29.8 % Low 37-47 [facility] Comment on above: Performed By: #### L 500.2500, L100.0100 ####[facility] [address] [place], [address] Hemoglobin (Bld) [Mass/Vol] 8.8 g/dL Low 12.0-15.0 [facility] Comment on above: Performed By: #### L 500.2500, L100.0100 ####[facility] [address] [place], [address] IG% 0.700 Normal 0.0-0.9 [facility] Comment on above: Result Comment: IG% - Immature Granulocytes (promyelocytes, myelocytes andmetamyelocytes) > 1% indicates that a LEFT SHIFT is Present. Performed By: #### L 500.2500, L100.0100 ####[facility] [address] [place], [address] Lymphocytes/100 WBC (Bld) 11.3 % Low 19-41 [facility] Comment on above: Performed By: #### L 500.2500, L100.0100 ####[facility] [address] [place], [address] MCH (RBC) [Entitic mass] 25.1 pg Low 27.0-32.0 [facility] Comment on above: Performed By: #### L 500.2500, L100.0100 ####[facility] [address] [place], [address] MCHC (RBC) [Mass/Vol] 29.5 g/dL Low 32-36 [facility] Comment on above: Performed By: #### L 500.2500, L100.0100 ####[facility] [address] [place], [address] MCV (RBC) [Entitic vol] 85.1 fL Normal 81-99 [facility] Comment on above: Performed By: #### L 500.2500, L100.0100 ####[facility] [address] [place], [address] Monocytes/100 WBC (Bld) 8.6 % Normal 0-10 [facility] Comment on above: Performed By: #### L 500.2500, L100.0100 ####[facility] [address] [place], [address] Neutrophils/100 WBC (Bld) 78.7 % High 47-70 [facility] Comment on above: Performed By: #### L 500.2500, L100.0100 ####[facility] [address] [place], [address] Nucleated RBC (Bld) [#/Vol] 0 10*3/uL Normal 0-5 [facility] Comment on above: Performed By: #### L 500.2500, L100.0100 ####[facility] [address] [place], [address] Platelet mean volume (Bld) [Entitic vol] 10.5 fL Normal 6.2-12.0 [facility] Comment on above: Performed By: #### L 500.2500, L100.0100 ####[facility] [address] [place], [address] Platelets (Bld) [#/Vol] 257 10*3/uL Normal 150-450 [facility] Comment on above: Performed By: #### L 500.2500, L100.0100 ####[facility] [address] [place], [address] RBC (Bld) [#/Vol] 3.50 10*6/uL Low 4.2-5.4 [facility] Comment on above: Performed By: #### L 500.2500, L100.0100 ####[facility] [address] [place], [address] RDW SD 59.6 fl High 35.1-43.9 [facility] Comment on above: Performed By: #### L 500.2500, L100.0100 ####[facility] [address] [place], [address] WBC (Bld) [#/Vol] 7.6 10*3/uL Normal 4.4-11.0 [facility] Comment on above: Performed By: #### L 500.2500, L100.0100 ####[facility] [address] [place], [address] Colonoscopy Reporton 024 Colonoscopy Report Normal [facility] EGD Reporton 05-06-2024 EGD Report Normal [facility] H Pylori (initial)on 024 H Pylori (initial) Normal [facility] Comment on above: Performed By: #### P H.PYLORI ####[facility] [address] [place], [address] M R Staph Aureus DNA by PCRo n 05-06-2024 MRSA DNA ASSAY Negative Normal Negative [facility] Comment on above: Performed By: #### L 8200.1000 ####[facility] [address] [place], [address] MR/PN.GIon 05-06-2024 MR/PN.GI Normal [facility] MR/POSTOP.ANEon 05-06-2024 MR/POSTOP.ANE Normal [facility] MR/LOOWXODJ4ze 05-06-2024 MR/POSTOPAN2 Normal [facility] Special Stain Group Ion 04-17 Special Stain Group I Normal [facility] Comment on above: Performed By: #### P SSI ####[facility] [address] [place], [address] BNP,B-Type NATRIURETIC PEPTI Van 05-05-2024 Natriuretic peptide B (Bld) [Mass/Vol] 215.7 pg/mL High 0-100 [facility] Comment on above: Performed By: #### L 503.6620 ####[facility] [address] [place], [address] CBC W/Diff, Automatedon 04-17 Absolute Lymph 0.77 X10 3/uL Low 0.83-4.51 [facility] Comment on above: Performed By: #### L 100.0100, L501.2300, L500.4050, L501.5200 ####[facility] [address] [place], [address] Absolute Neut 6.1 X10 3/uL Normal 2.0-7.7 [facility] Comment on above: Performed By: #### L 100.0100, L501.2300, L500.4050, L501.5200 ####[facility] [address] [place], [address] Basophils/100 WBC (Bld) 0.3 % Normal 0-1 [facility] Comment on above: Performed By: #### L 100.0100, L501.2300, L500.4050, L501.5200 ####[facility] [address] [place], [address] Eosinophils/100 WBC (Bld) 1.0 % Normal 0-5 [facility] Comment on above: Performed By: #### L 100.0100, L501.2300, L500.4050, L501.5200 ####[facility] [address] [place], [address] Erythrocyte distribution width (RBC) [Ratio] 18.4 % High 11.6-14.6 [facility] Comment on above: Performed By: #### L 100.0100, L501.2300, L500.4050, L501.5200 ####[facility] [address] [place], [address] Hematocrit (Bld) [Volume fraction] 28.0 % Low 37-47 [facility] Comment on above: Performed By: #### L 100.0100, L501.2300, L500.4050, L501.5200 ####[facility] [address] [place], [address] Hemoglobin (Bld) [Mass/Vol] 8.2 g/dL Low 12.0-15.0 [facility] Comment on above: Performed By: #### L 100.0100, L501.2300, L500.4050, L501.5200 ####[facility] [address] [place], [address] IG% 0.800 Normal 0.0-0.9 [facility] Comment on above: Result Comment: IG% - Immature Granulocytes (promyelocytes, myelocytes andmetamyelocytes) > 1% indicates that a LEFT SHIFT is Present. Performed By: #### L 100.0100, L501.2300, L500.4050, L501.5200 ####[facility] [address] [place], [address] Lymphocytes/100 WBC (Bld) 9.6 % Low 19-41 [facility] Comment on above: Performed By: #### L 100.0100, L501.2300, L500.4050, L501.5200 ####[facility] [address] [place], [address] MCH (RBC) [Entitic mass] 24.6 pg Low 27.0-32.0 [facility] Comment on above: Performed By: #### L 100.0100, L501.2300, L500.4050, L501.5200 ####[facility] [address] [place], [address] MCHC (RBC) [Mass/Vol] 29.3 g/dL Low 32-36 [facility] Comment on above: Performed By: #### L 100.0100, L501.2300, L500.4050, L501.5200 ####[facility] [address] [place], [address] MCV (RBC) [Entitic vol] 83.8 fL Normal 81-99 [facility] Comment on above: Performed By: #### L 100.0100, L501.2300, L500.4050, L501.5200 ####[facility] [address] [place], [address] Monocytes/100 WBC (Bld) 11.8 % High 0-10 [facility] Comment on above: Performed By: #### L 100.0100, L501.2300, L500.4050, L501.5200 ####[facility] [address] [place], [address] Neutrophils/100 WBC (Bld) 76.5 % High 47-70 [facility] Comment on above: Performed By: #### L 100.0100, L501.2300, L500.4050, L501.5200 ####[facility] [address] [place], [address] Nucleated RBC (Bld) [#/Vol] 0.3 10*3/uL Normal 0-5 [facility] Comment on above: Performed By: #### L 100.0100, L501.2300, L500.4050, L501.5200 ####[facility] [address] [place], [address] Platelet mean volume (Bld) [Entitic vol] 11.2 fL Normal 6.2-12.0 [facility] Comment on above: Performed By: #### L 100.0100, L501.2300, L500.4050, L501.5200 ####[facility] [address] [place], [address] Platelets (Bld) [#/Vol] 265 10*3/uL Normal 150-450 [facility] Comment on above: Performed By: #### L 100.0100, L501.2300, L500.4050, L501.5200 ####[facility] [address] [place], [address] RBC (Bld) [#/Vol] 3.34 10*6/uL Low 4.2-5.4 [facility] Comment on above: Performed By: #### L 100.0100, L501.2300, L500.4050, L501.5200 ####[facility] [address] [place], [address] RDW SD 55.5 fl High 35.1-43.9 [facility] Comment on above: Performed By: #### L 100.0100, L501.2300, L500.4050, L501.5200 ####[facility] [address] [place], [address] WBC (Bld) [#/Vol] 8.0 10*3/uL Normal 4.4-11.0 [facility] Comment on above: Performed By: #### L 100.0100, L501.2300, L500.4050, L501.5200 ####[facility] [address] [place], [address] Chest 1 View (Portable)on Chest 1 View (Portable) Normal [facility] Comprehensive Metabolic Prof ilon 05-05-2024 Albumin [Mass/Vol] 2.6 g/dL Low 3.2-5.0 [facility] Comment on above: Performed By: #### L 100.0100, L501.2300, L500.4050, L501.5200 ####[facility] [address] [place], [address] Albumin/Globulin [Mass ratio] 0.8 {ratio} Low 0.9-2.4 [facility] Comment on above: Performed By: #### L 100.0100, L501.2300, L500.4050, L501.5200 ####[facility] [address] [place], [address] ALK P 73 U/L Normal 45-117 [facility] Comment on above: Performed By: #### L 100.0100, L501.2300, L500.4050, L501.5200 ####[facility] [address] [place], [address] ALT [Catalytic activity/Vol] 13 U/L Normal 13-56 [facility] Comment on above: Performed By: #### L 100.0100, L501.2300, L500.4050, L501.5200 ####[facility] [address] [place], [address] AST [Catalytic activity/Vol] 6 U/L Low 15-37 [facility] Comment on above: Performed By: #### L 100.0100, L501.2300, L500.4050, L501.5200 ####[facility] [address] [place], [address] Bilirubin [Mass/Vol] 0.50 mg/dL Normal 0.20-1.00 [facility] Comment on above: Result Comment: For patients on eltrombopag therapy, use of Dimension [place] TBIL is not recommended. Performed By: #### L 100.0100, L501.2300, L500.4050, L501.5200 ####[facility] [address] [place], [address] BUN/CRE 10.3 RATIO Normal 10-20 [facility] Comment on above: Performed By: #### L 100.0100, L501.2300, L500.4050, L501.5200 ####[facility] [address] [place], [address] CA,Total 8.4 mg/dL Low 8.5-10.1 [facility] Comment on above: Performed By: #### L 100.0100, L501.2300, L500.4050, L501.5200 ####[facility] [address] [place], [address] Chloride [Moles/Vol] 107 mmol/L Normal 98-107 [facility] Comment on above: Performed By: #### L 100.0100, L501.2300, L500.4050, L501.5200 ####[facility] [address] [place], [address] CO2 [Moles/Vol] 29.0 mmol/L Normal 21.0-32.0 [facility] Comment on above: Performed By: #### L 100.0100, L501.2300, L500.4050, L501.5200 ####[facility] [address] [place], [address] Creatinine [Mass/Vol] 0.68 mg/dL Normal 0.55-1.02 [facility] Comment on above: Result Comment: The validity of the calculated GFR GFRAA in patients over70 years has not been determined. Clinical correlation isessential. Performed By: #### L 100.0100, L501.2300, L500.4050, L501.5200 ####[facility] [address] [place], [address] ECRCL 63.90 ml/min Normal [facility] Comment on above: Performed By: #### L 100.0100, L501.2300, L500.4050, L501.5200 ####[facility] [address] [place], [address] EST GFR - AA 111 mL/min Normal >60 [facility] Comment on above: Result Comment: Afri can Gabonese GFR Calc Performed By: #### L 100.0100, L501.2300, L500.4050, L501.5200 ####[facility] [address] [place], [address] GAP 5 Normal 5-15 [facility] Comment on above: Performed By: #### L 100.0100, L501.2300, L500.4050, L501.5200 ####[facility] [address] [place], [address] GFR/1.73 sq M.predicted among non-blacks MDRD (S/P/Bld) [Vol rate/Area] 92 mL/min/{1.73_m2} Normal >60 [facility] Comment on above: Result Comment: Non- GFR Calc Performed By: #### L 100.0100, L501.2300, L500.4050, L501.5200 ####[facility] [address] [place], [address] Globulin (S) [Mass/Vol] 3.2 g/dL Normal 2.2-4.2 [facility] Comment on above: Performed By: #### L 100.0100, L501.2300, L500.4050, L501.5200 ####[facility] [address] [place], [address] Glucose [Mass/Vol] 90 mg/dL Normal 74-106 [facility] Comment on above: Performed By: #### L 100.0100, L501.2300, L500.4050, L501.5200 ####[facility] [address] [place], [address] Potassium [Moles/Vol] 3.0 mmol/L Low 3.5-5.1 [facility] Comment on above: Performed By: #### L 100.0100, L501.2300, L500.4050, L501.5200 ####[facility] [address] [place], [address] Sodium [Moles/Vol] 141 mmol/L Normal 136-145 [facility] Comment on above: Performed By: #### L 100.0100, L501.2300, L500.4050, L501.5200 ####[facility] [address] [place], [address] T PROT 5.8 g/dL Low 6.4-8.2 [facility] Comment on above: Performed By: #### L 100.0100, L501.2300, L500.4050, L501.5200 ####[facility] [address] [place], [address] Urea nitrogen [Mass/Vol] 7 mg/dL Normal 7-18 [facility] Comment on above: Performed By: #### L 100.0100, L501.2300, L500.4050, L501.5200 ####[facility] [address] [place], [address] Echo, Limited Studyon 2023 Echo, Limited Study Normal [facility] Legionella Antigen Urineon 0 05-05-2024 LEGU URINE, RANDOM L pneumo Ag Ur Ql Negative Presumptive negative for Legionella pneumophila serogroup 1 antigen in urine, suggesting no recent or current infection. Legionella Ag, Urine Negative (See interpretation below) Normal [facility] Comment on above: Performed By: #### M 300.4500, M300.4600 ####[facility] [address] [place], [address] M100.019on 05-05-2024 M100.019 Normal Reference Ran ge = Negative GeneXpert Instrument, PCR method SARS-CoV-2 (COVID 19) Negative Normal [facility] Comment on above: Performed By: #### M 100.638, M100.019 ####[facility] [address] [place], [address] MR/PN.GIon 05-05-2024 MR/PN.GI Normal [facility] Magnesiumon 05-05-2024 Magnesium [Mass/Vol] 1.7 mg/dL Normal 1.6-2.6 [facility] Comment on above: Performed By: #### L 100.0100, L501.2300, L500.4050, L501.5200 ####[facility] [address] [place], [address] Partial Thromboplast Timeon 05-05-2024 aPTT Coag (Bld) [Time] 29.1 s Normal 24.1-36.2 [facility] Comment on above: Performed By: #### L 300.3900, L300.4310 ####[facility] [address] [place], [address] Phosphoruson 05-05-2024 Phosphate [Mass/Vol] 4.1 mg/dL Normal 2.5-4.9 [facility] Comment on above: Performed By: #### L 100.0100, L501.2300, L500.4050, L501.5200 ####[facility] [address] [place], [address] Prothrombin Time w/INRon INR Coag (PPP) [Relative time] 1.3 {INR} Normal [facility] Comment on above: Performed By: #### L 300.3900, L300.4310 ####[facility] [address] [place], [address] PT Coag (PPP) [Time] 15.9 s High 11.7-14.9 [facility] Comment on above: Performed By: #### L 300.3900, L300.4310 ####[facility] [address] [place], [address] RESPIRATORY PANEL MOLECULARo n 05-05-2024 RP PANEL Normal [facility] Comment on above: Performed By: #### M 100.638, M100.019 ####[facility] [address] [place], [address] Strep pneumoniae Antig(UR,CS F)on 05-05-2024 STPAG Normal [facility] Comment on above: Performed By: #### M 300.4500, M300.4600 ####[facility] [address] [place], [address] Basic Metabolic Profile (BMP )on 05-04-2024 BUN/CRE 11.0 RATIO Normal 10-20 [facility] Comment on above: Performed By: #### L 500.2500, L501.9520, L100.0100 ####[facility] [address] [place], [address] CA,Total 8.3 mg/dL Low 8.5-10.1 [facility] Comment on above: Performed By: #### L 500.2500, L501.9520, L100.0100 ####[facility] [address] [place], [address] Chloride [Moles/Vol] 112 mmol/L High 98-107 [facility] Comment on above: Performed By: #### L 500.2500, L501.9520, L100.0100 ####[facility] [address] [place], [address] CO2 [Moles/Vol] 25.0 mmol/L Normal 21.0-32.0 [facility] Comment on above: Performed By: #### L 500.2500, L501.9520, L100.0100 ####[facility] [address] [place], [address] Creatinine [Mass/Vol] 0.72 mg/dL Normal 0.55-1.02 [facility] Comment on above: Result Comment: The validity of the calculated GFR GFRAA in patients over70 years has not been determined. Clinical correlation isessential. Performed By: #### L 500.2500, L501.9520, L100.0100 ####[facility] [address] [place], [address] ECRCL 66.44 ml/min Normal [facility] Comment on above: Performed By: #### L 500.2500, L501.9520, L100.0100 ####[facility] [address] [place], [address] EST GFR - AA 103 mL/min Normal >60 [facility] Comment on above: Result Comment: Afri can Gabonese GFR Calc Performed By: #### L 500.2500, L501.9520, L100.0100 ####[facility] [address] [place], [address] GAP 6 Normal 5-15 [facility] Comment on above: Performed By: #### L 500.2500, L501.9520, L100.0100 ####[facility] [address] [place], [address] GFR/1.73 sq M.predicted among non-blacks MDRD (S/P/Bld) [Vol rate/Area] 85 mL/min/{1.73_m2} Normal >60 [facility] Comment on above: Result Comment: Non- GFR Calc Performed By: #### L 500.2500, L501.9520, L100.0100 ####[facility] [address] [place], [address] Glucose [Mass/Vol] 89 mg/dL Normal 74-106 [facility] Comment on above: Performed By: #### L 500.2500, L501.9520, L100.0100 ####[facility] [address] [place], [address] Potassium [Moles/Vol] 4.0 mmol/L Normal 3.5-5.1 [facility] Comment on above: Performed By: #### L 500.2500, L501.9520, L100.0100 ####[facility] [address] [place], [address] Sodium [Moles/Vol] 143 mmol/L Normal 136-145 [facility] Comment on above: Performed By: #### L 500.2500, L501.9520, L100.0100 ####[facility] [address] [place], [address] Urea nitrogen [Mass/Vol] 8 mg/dL Normal 7-18 [facility] Comment on above: Performed By: #### L 500.2500, L501.9520, L100.0100 ####[facility] [address] [place], [address] CBC W/Diff, Automatedon 04-16 Absolute Lymph 0.91 X10 3/uL Normal 0.83-4.51 [facility] Comment on above: Performed By: #### L 500.2500, L501.9520, L100.0100 ####[facility] [address] [place], [address] Absolute Neut 5.8 X10 3/uL Normal 2.0-7.7 [facility] Comment on above: Performed By: #### L 500.2500, L501.9520, L100.0100 ####[facility] [address] [place], [address] Basophils/100 WBC (Bld) 0.5 % Normal 0-1 [facility] Comment on above: Performed By: #### L 500.2500, L501.9520, L100.0100 ####[facility] [address] [place], [address] Eosinophils/100 WBC (Bld) 0.8 % Normal 0-5 [facility] Comment on above: Performed By: #### L 500.2500, L501.9520, L100.0100 ####[facility] [address] [place], [address] Erythrocyte distribution width (RBC) [Ratio] 17.3 % High 11.6-14.6 [facility] Comment on above: Performed By: #### L 500.2500, L501.9520, L100.0100 ####[facility] [address] [place], [address] Hematocrit (Bld) [Volume fraction] 27.7 % Low 37-47 [facility] Comment on above: Performed By: #### L 500.2500, L501.9520, L100.0100 ####[facility] [address] [place], [address] Hemoglobin (Bld) [Mass/Vol] 8.1 g/dL Low 12.0-15.0 [facility] Comment on above: Performed By: #### L 500.2500, L501.9520, L100.0100 ####[facility] [address] [place], [address] IG% 0.900 Normal 0.0-0.9 [facility] Comment on above: Result Comment: IG% - Immature Granulocytes (promyelocytes, myelocytes andmetamyelocytes) > 1% indicates that a LEFT SHIFT is Present. Performed By: #### L 500.2500, L501.9520, L100.0100 ####[facility] [address] [place], [address] Lymphocytes/100 WBC (Bld) 12.0 % Low 19-41 [facility] Comment on above: Performed By: #### L 500.2500, L501.9520, L100.0100 ####[facility] [address] [place], [address] MCH (RBC) [Entitic mass] 24.3 pg Low 27.0-32.0 [facility] Comment on above: Performed By: #### L 500.2500, L501.9520, L100.0100 ####[facility] [address] [place], [address] MCHC (RBC) [Mass/Vol] 29.2 g/dL Low 32-36 [facility] Comment on above: Performed By: #### L 500.2500, L501.9520, L100.0100 ####[facility] [address] [place], [address] MCV (RBC) [Entitic vol] 82.9 fL Normal 81-99 [facility] Comment on above: Performed By: #### L 500.2500, L501.9520, L100.0100 ####[facility] [address] [place], [address] Monocytes/100 WBC (Bld) 9.3 % Normal 0-10 [facility] Comment on above: Performed By: #### L 500.2500, L501.9520, L100.0100 ####[facility] [address] [place], [address] Neutrophils/100 WBC (Bld) 76.5 % High 47-70 [facility] Comment on above: Performed By: #### L 500.2500, L501.9520, L100.0100 ####[facility] [address] [place], [address] Nucleated RBC (Bld) [#/Vol] 0.5 10*3/uL Normal 0-5 [facility] Comment on above: Performed By: #### L 500.2500, L501.9520, L100.0100 ####[facility] [address] [place], [address] Platelet mean volume (Bld) [Entitic vol] 10.4 fL Normal 6.2-12.0 [facility] Comment on above: Performed By: #### L 500.2500, L501.9520, L100.0100 ####[facility] [address] [place], [address] Platelets (Bld) [#/Vol] 279 10*3/uL Normal 150-450 [facility] Comment on above: Performed By: #### L 500.2500, L501.9520, L100.0100 ####[facility] [address] [place], [address] RBC (Bld) [#/Vol] 3.34 10*6/uL Low 4.2-5.4 [facility] Comment on above: Performed By: #### L 500.2500, L501.9520, L100.0100 ####[facility] [address] [place], [address] RDW SD 52.9 fl High 35.1-43.9 [facility] Comment on above: Performed By: #### L 500.2500, L501.9520, L100.0100 ####[facility] [address] [place], [address] WBC (Bld) [#/Vol] 7.6 10*3/uL Normal 4.4-11.0 [facility] Comment on above: Performed By: #### L 500.2500, L501.9520, L100.0100 ####[facility] [address] [place], [address] CBC-Complete Blood Cnt No Di ffon 05-04-2024 PATH REV May foll Normal [facility] Comment on above: Order Comment: LEFT VOICE MAIL AT 11:28AM WITH PHONE NUMBER ABOVE Performed By: #### L 3400.4000, L506.1000, L100.0500, L509.1000, L500.4100, L502.0250, L500.4050 ####[facility] [address] [place], [address] HH, Hemoglobin AND Hematocri ton 05-04-2024 Hematocrit (Bld) [Volume fraction] 25.8 % Low 37-47 [facility] Comment on above: Performed By: #### L 100.0600 ####[facility] [address] [place], [address] Hemoglobin (Bld) [Mass/Vol] 7.8 g/dL Low 12.0-15.0 [facility] Comment on above: Performed By: #### L 100.0600 ####[facility] [address] [place], [address] MR/CON.PCM.GIon 05-04-2024 MR/CON.PCM.GI Normal [facility] Stool Occult Blood iFOBon STOB Positive Normal [facility] Comment on above: Performed By: #### L 503.6030, L503.6005, BRC, L503.6550, BTS, M100.7900 ####[facility] [address] [place], [address] Thyroid Stim Hormone (TSH)on 05-04-2024 TSH 1.68 uIU/mL Normal 0.358-3.74 [facility] Comment on above: Performed By: #### L 500.2500, L501.9520, L100.0100 ####[facility] [address] [place], [address] 12 Lead EKGon 05-03-2024 12 Lead EKG Normal [facility] BRCon 05-03-2024 RC Normal [facility] Comment on above: Result Comment: [id number] OP RC TRANSFUSED 05/03/24 [id number] OP RC TRANSFUSED 05/04/24 [id number] BP RC TRANSFUSED 05/03/24 [id number] BP RC TRANSFUSED 05/03/24 1532 Performed By: #### L 503.6030, L503.6005, BRC, L503.6550, BTS, M100.7900 ####[facility] [address] [place], [address] Comprehensive Metabolic Prof ilon 05-03-2024 Albumin [Mass/Vol] 2.9 g/dL Low 3.2-5.0 [facility] Comment on above: Performed By: #### L 3400.4000, L506.1000, L100.0500, L509.1000, L500.4100, L502.0250, L500.4050 ####[facility] [address] [place], [address] Albumin/Globulin [Mass ratio] 0.8 {ratio} Low 0.9-2.4 [facility] Comment on above: Performed By: #### L 3400.4000, L506.1000, L100.0500, L509.1000, L500.4100, L502.0250, L500.4050 ####[facility] [address] [place], [address] ALK P 84 U/L Normal 45-117 [facility] Comment on above: Performed By: #### L 3400.4000, L506.1000, L100.0500, L509.1000, L500.4100, L502.0250, L500.4050 ####[facility] [address] [place], [address] ALT [Catalytic activity/Vol] 17 U/L Normal 13-56 [facility] Comment on above: Performed By: #### L 3400.4000, L506.1000, L100.0500, L509.1000, L500.4100, L502.0250, L500.4050 ####[facility] [address] [place], [address] AST [Catalytic activity/Vol] 12 U/L Low 15-37 [facility] Comment on above: Performed By: #### L 3400.4000, L506.1000, L100.0500, L509.1000, L500.4100, L502.0250, L500.4050 ####[facility] [address] [place], [address] Bilirubin [Mass/Vol] 0.30 mg/dL Normal 0.20-1.00 [facility] Comment on above: Result Comment: For patients on eltrombopag therapy, use of Dimension [place] TBIL is not recommended. Performed By: #### L 3400.4000, L506.1000, L100.0500, L509.1000, L500.4100, L502.0250, L500.4050 ####[facility] [address] [place], [address] BUN/CRE 9.8 RATIO Low 10-20 [facility] Comment on above: Performed By: #### L 3400.4000, L506.1000, L100.0500, L509.1000, L500.4100, L502.0250, L500.4050 ####[facility] [address] [place], [place], [address] CA,Total 9.0 mg/dL Normal 8.5-10.1 [facility] Comment on above: Performed By: #### L 3400.4000, L506.1000, L100.0500, L509.1000, L500.4100, L502.0250, L500.4050 ####[facility] [address] [place], [address] Chloride [Moles/Vol] 107 mmol/L Normal 98-107 [facility] Comment on above: Performed By: #### L 3400.4000, L506.1000, L100.0500, L509.1000, L500.4100, L502.0250, L500.4050 ####[facility] [address] [place], [address] CO2 [Moles/Vol] 25.0 mmol/L Normal 21.0-32.0 [facility] Comment on above: Performed By: #### L 3400.4000, L506.1000, L100.0500, L509.1000, L500.4100, L502.0250, L500.4050 ####[facility] [address] [place], [address] Creatinine [Mass/Vol] 0.82 mg/dL Normal 0.55-1.02 [facility] Comment on above: Result Comment: The validity of the calculated GFR GFRAA in patients over70 years has not been determined. Clinical correlation isessential. Performed By: #### L 3400.4000, L506.1000, L100.0500, L509.1000, L500.4100, L502.0250, L500.4050 ####[facility] [address] [place], [address] EST GFR - AA 90 mL/min Normal >60 [facility] Comment on above: Result Comment: Afri can Gabonese GFR Calc Performed By: #### L 3400.4000, L506.1000, L100.0500, L509.1000, L500.4100, L502.0250, L500.4050 ####[facility] [address] [place], [address] GAP 7 Normal 5-15 [facility] Comment on above: Performed By: #### L 3400.4000, L506.1000, L100.0500, L509.1000, L500.4100, L502.0250, L500.4050 ####[facility] [address] [place], [address] GFR/1.73 sq M.predicted among non-blacks MDRD (S/P/Bld) [Vol rate/Area] 75 mL/min/{1.73_m2} Normal >60 [facility] Comment on above: Result Comment: Non- GFR Calc Performed By: #### L 3400.4000, L506.1000, L100.0500, L509.1000, L500.4100, L502.0250, L500.4050 ####[facility] [address] [place], [address] Globulin (S) [Mass/Vol] 3.6 g/dL Normal 2.2-4.2 [facility] Comment on above: Performed By: #### L 3400.4000, L506.1000, L100.0500, L509.1000, L500.4100, L502.0250, L500.4050 ####[facility] [address] [place], [address] Glucose [Mass/Vol] 93 mg/dL Normal 74-106 [facility] Comment on above: Performed By: #### L 3400.4000, L506.1000, L100.0500, L509.1000, L500.4100, L502.0250, L500.4050 ####[facility] [address] [place], [address] Potassium [Moles/Vol] 3.8 mmol/L Normal 3.5-5.1 [facility] Comment on above: Performed By: #### L 3400.4000, L506.1000, L100.0500, L509.1000, L500.4100, L502.0250, L500.4050 ####[facility] [address] [place], [address] Sodium [Moles/Vol] 139 mmol/L Normal 136-145 [facility] Comment on above: Performed By: #### L 3400.4000, L506.1000, L100.0500, L509.1000, L500.4100, L502.0250, L500.4050 ####[facility] [address] [place], [address] T PROT 6.5 g/dL Normal 6.4-8.2 [facility] Comment on above: Performed By: #### L 3400.4000, L506.1000, L100.0500, L509.1000, L500.4100, L502.0250, L500.4050 ####[facility] [address] [place], [address] Urea nitrogen [Mass/Vol] 8 mg/dL Normal -18 [facility] Comment on above: Performed By: #### L 3400.4000, L506.1000, L100.0500, L509.1000, L500.4100, L502.0250, L500.4050 ####[facility] [address] [place], [address] Emergency Department Summary on 05-03-2024 Emergency Department Summary Normal [facility] Ferritinon 05-03-2024 Ferritin [Mass/Vol] 2 ng/mL Low 8-252 [facility] Comment on above: Performed By: #### L 503.6030, L503.6005, BRC, L503.6550, BTS, M100.7900 ####[facility] [address] [place], [address] H AND P Exam - Hospitaliston 05-03-2024 H&P Exam - Hospitalist Normal [facility] Iron+Iron Binding Capacityon 05-03-2024 Iron [Mass/Vol] 10 ug/dL Low 50-170 [facility] Comment on above: Performed By: #### L 503.6030, L503.6005, BRC, L503.6550, BTS, M100.7900 ####[facility] [address] [place], [address] IRON SATURATION 2.1 Low 15.0-55.0 [facility] Comment on above: Performed By: #### L 503.6030, L503.6005, BRC, L503.6550, BTS, M100.7900 ####[facility] [address] [place], [address] TIBC 487 ug/dL High 250-450 [facility] Comment on above: Performed By: #### L 503.6030, L503.6005, BRC, L503.6550, BTS, M100.7900 ####[facility] [address] [place], [address] Lactic Acidon 05-03-2024 Lactate [Moles/Vol] 0.8 mmol/L Normal 0.4-1.9 [facility] Comment on above: Performed By: #### L 503.6005 ####[facility] [address] [place], [address] Lactate [Moles/Vol] 2.8 mmol/L Invalid Interpretation Code 0.4-1.9 [facility] Comment on above: Order Comment: Y Result Comment: Crit ical Result(s) Called at: 14:46:05 05/03/2024 by: JLUIS to Wilver Haro. Results read back by same. Performed By: #### L 503.6030, L503.6005, [facility], L503.6550, BTS, M100.7900 ####[facility] [address] [place], [address] Lipid Profileon 05-03-2024 Cholesterol [Mass/Vol] 96 mg/dL Normal 200 [facility] Comment on above: Result Comment: <200 mg/dL Desirable 200-240 mg/dL Borderline >240 mg/dL High Risk Performed By: #### L 3400.4000, L506.1000, L100.0500, L509.1000, L500.4100, L502.0250, L500.4050 ####[facility] [address] [place], [address] Cholesterol in HDL [Mass/Vol] 46 mg/dL Normal [facility] Comment on above: Result Comment: The drugs N-Acetylcysteine and Metamizole may falselydepress this assay. Reference Range HDL <40 mg/dL Low HDL Cholesterol HDL >or= 60 mg/dL High HDL Cholesterol Performed By: #### L 3400.4000, L506.1000, L100.0500, L509.1000, L500.4100, L502.0250, L500.4050 ####[facility] [address] [place], [address] Cholesterol in LDL [Mass/Vol] 39 mg/dL Normal 0-130 [facility] Comment on above: Performed By: #### L 3400.4000, L506.1000, L100.0500, L509.1000, L500.4100, L502.0250, L500.4050 ####[facility] [address] [place], [address] Cholesterol in VLDL [Mass/Vol] 11 mg/dL Normal 5-40 [facility] Comment on above: Performed By: #### L 3400.4000, L506.1000, L100.0500, L509.1000, L500.4100, L502.0250, L500.4050 ####[facility] [address] [place], [address] Triglyceride [Mass/Vol] 53 mg/dL Normal [facility] Comment on above: Result Comment: The drugs N-Acetylcysteine and Metamizole may falselydepress this assay.Serum Triglycerides Reference Interval Normal <150 mg/dL Borderline high 150 - 199 mg/dL High 200 - 499 mg/dL Very High > or = 500 mg/dL Performed By: #### L 3400.4000, L506.1000, L100.0500, L509.1000, L500.4100, L502.0250, L500.4050 ####[facility] [address] [place], [address] Magnesiumon 05-03-2024 Magnesium [Mass/Vol] 1.7 mg/dL Normal 1.6-2.6 [facility] Comment on above: Performed By: #### L 501.5200 ####[facility] [address] [place], [address] Microalb:Creat Ratio,Random URon 05-03-2024 Creatinine [Mass/Vol] 80.30 mg/dL Normal NO RAN GE EST. [facility] Comment on above: Performed By: #### L 3400.4000, L506.1000, L100.0500, L509.1000, L500.4100, L502.0250, L500.4050 ####[facility] [address] [place], [address] MALB:CRE 326.3 mg/g CRE High <30 mg/g CRE [facility] Comment on above: Performed By: #### L 3400.4000, L506.1000, L100.0500, L509.1000, L500.4100, L502.0250, L500.4050 ####[facility] [address] [place], [address] MICROALBUMIN,UR 262.0 mg/L Normal NO RANGE EST. [facility] Comment on above: Performed By: #### L 3400.4000, L506.1000, L100.0500, L509.1000, L500.4100, L502.0250, L500.4050 ####[facility] [address] [place], [address] PTHINon 05-03-2024 PTH 134.4 pg/mL High 18.4-80.1 [facility] Comment on above: Performed By: #### L 3400.4000, L506.1000, L100.0500, L509.1000, L500.4100, L502.0250, L500.4050 ####[facility] [address] [place], [address] Type AND Screenon 05-03-2024 ABO and Rh group Nom (Bld) Blood group B Rh(D) positive Normal [facility] Comment on above: Order Comment: CMV N EG? NNumber of units to transfuse: 4Is this product for anemia associated withhemoglobinopathy? NIs pt's Hgb is = to 7.0 mg/dl or Hct </= 21%? YIs this for PREOP anemia correction prior to anesthesia? NReason for Ordering Blood: ChronicIs there symptomatic anemia? King the blood/blood products to be transfused? YIs the patient having/had surgery? Bette Wiley Performed By: #### L 503.6030, L503.6005, BRC, L503.6550, BTS, M100.7900 ####[facility] [address] [place], [address] Urinalysis, Completeon 05-03 EPI,SQUAMOUS 0-5 SEEN Normal 5-10 [facility] Comment on above: Order Comment: VALENCIA CTOR TO SPECIFY Performed By: #### L 400.0001 ####[facility] [address] [place], [address] BACTERIA 0 SEEN Normal None Seen [facility] Comment on above: Order Comment: VALENCIA CTOR TO SPECIFY Performed By: #### L 400.0001 ####[facility] [address] [place], [address] Mucus Ql (Urine sed) 0 SEEN Normal [facility] Comment on above: Order Comment: VALENCIA CTOR TO SPECIFY Performed By: #### L 400.0001 ####[facility] [address] [place], [address] RBC 0 SEEN Normal 0-5 [facility] Comment on above: Order Comment: VALENCIA CTOR TO SPECIFY Performed By: #### L 400.0001 ####[facility] [address] [place], [address] WBC 0 SEEN Normal 0-5 [facility] Comment on above: Order Comment: VALENCIA CTOR TO SPECIFY Performed By: #### L 400.0001 ####[facility] [address] [place], [address] Vitamin D,25 Hydroxyon 05-03 Vitamin D 25-OH 73.7 ng/mL Normal [facility] Comment on above: Result Comment: [place] min D 25(OH) Status Range Deficiency <20 ng/mL (50nmol/L) Insufficiency 20 - 30 ng/mL (50 - 75 nmol/L) Sufficiency 30 - 100 ng/mL (75 - 250 nmol/L) Toxicity >100 ng/mL (>250 nmol/L) Performed By: #### L 3400.4000, L506.1000, L100.0500, L509.1000, L500.4100, L502.0250, L500.4050 ####[facility] [id number] [place], [address] No Panel InformationOrdered By: Katie Retana on 03-07-2024 Estimated GFR (MDRD) Amer 102 mL/min >60 [facility] Comment on above: GFR Calc Estimated GFR (MDRD) Non-Af Amer 85 mL/min >60 [facility] Comment on above: Non- GFR Calc Serum or plasma creatinine m easurement (mass/volume)Ordered By: Katie Retana on 03-07-2024 Creatinine [Mass/Vol] 0.73 mg/dL 0.55-1.02 [facility] Comment on above: The validity of the calculated GFR & GFRAA in patients over 70 years has not been determined. Clinical correlation is essential. Basophil percentageOrdered B y: Carline Ashley on 01-27-2024 Bilirubin [Mass/Vol] 0.40 mg/dL 0.20-1.00 [facility] Comment on above: For patients on eltr ombopag therapy, use of Dimension [place] TBIL is not recommended. Chloride [Moles/Vol] 100 mmol/L 98-107 [facility] Cholesterol [Mass/Vol] 141 mg/dL <200 [facility] Comment on above: <200 mg/dL Desirable 200-240 mg/dL Borderline >240 mg/dL High Risk Glucose [Mass/Vol] 93 mg/dL 74-106 [facility] Hemoglobin (Bld) [Mass/Vol] 9.7 g/dL 12.0-15.0 [facility] Potassium [Moles/Vol] 3.2 mmol/L 3.5-5.1 [facility] Protein [Mass/Vol] 7.8 g/dL 6.4-8.2 [facility] Sodium [Moles/Vol] 136 mmol/L 136-145 [facility] Triglyceride [Mass/Vol] 132 mg/dL <199 [facility] Comment on above: The drugs N-Acetylcy steine and Metamizole may falsely depress this assay.Serum Triglycerides Reference Interval Normal <150 mg/dL Borderline high 150 - 199 mg/dL High 200 - 499 mg/dL Very High > or = 500 mg/dL WBC (Bld) [#/Vol] 11.4 10*3/uL 4.4-11.0 [facility] Determination of erythrocyte mean corpuscular volume (MCV)Ordered By: Carline Ashley on 01-27-2024 MCV (RBC) [Entitic vol] 86.9 fL 81-99 [facility] Erythrocyte distribution wid th ratioOrdered By: Carline Ashley on 01-27-2024 Erythrocyte distribution width (RBC) [Ratio] 14.4 % 11.6-14.6 [facility] Erythrocyte distribution wid th standard deviationOrdered By: Carline Ashley on 01-27-2024 Erythrocyte distribution width (RBC) [Entitic vol] 45.2 fL 35.1-43.9 [facility] Hematocrit Auto (Bld) [Volum e fraction]Ordered By: Carline Ashley on 01-27-2024 Hematocrit (Bld) [Volume fraction] 31.3 % 37-47 [facility] Laboratory - Chemistry and C hemistry - challengeOrdered By: Carline Ashley on 01-27-2024 Albumin/Globulin [Mass ratio] 0.6 {ratio} 0.9-2.4 [facility] ALP [Catalytic activity/Vol] 76 U/L 45-117 [facility] ALT [Catalytic activity/Vol] 23 U/L 13-56 [facility] Cholesterol in HDL [Mass/Vol] 38 mg/dL >40 [facility] Comment on above: The drugs N-Acetylcy steine and Metamizole may falsely depress this assay. Reference Range HDL <40 mg/dL Low HDL Cholesterol HDL >or= 60 mg/dL High HDL Cholesterol Cholesterol in LDL [Mass/Vol] 77 mg/dL 0-130 [facility] CO2 [Moles/Vol] 26.0 mmol/L 21.0-32.0 [facility] Globulin (S) [Mass/Vol] 4.9 g/dL 2.2-4.2 [facility] Urea nitrogen/Creatinine [Mass ratio] 9.2 mg/mg 10-20 [facility] Laboratory - Hematology and Cell countsOrdered By: Carline Ashley on 01-27-2024 MCH (RBC) [Entitic mass] 26.9 pg 27.0-32.0 [facility] MCHC (RBC) [Mass/Vol] 31.0 g/dL 32-36 [facility] Platelet mean volume (Bld) [Entitic vol] 10.6 fL 6.2-12.0 [facility] Platelets (Bld) [#/Vol] 569 10*3/uL 150-450 [facility] No Panel InformationOrdered By: Carline Ashley on 01-27-2024 Estimated GFR (MDRD) Amer 58 mL/min >60 [facility] Comment on above: GFR Calc Estimated GFR (MDRD) Non-Af Amer 48 mL/min >60 [facility] Comment on above: Non- GFR Calc Urine Microalbumin/Creatinine Ratio 71.0 mg/g CRE <30 [facility] Vitamin D 25-Hydroxy 6.4 ng/mL [facility] Comment on above: Vitamin D 25(OH) Sta tus Range Deficiency <20 ng/mL (50nmol/L) Insufficiency 20 - 30 ng/mL (50 - 75 nmol/L) Sufficiency 30 - 100 ng/mL (75 - 250 nmol/L) Toxicity >100 ng/mL (>250 nmol/L) VLDL Cholesterol 26 mg/dL 5-40 [facility] RBC Auto (Bld) [#/Vol]Ordere d By: Carline Ashley on 01-27-2024 RBC (Bld) [#/Vol] 3.60 10*6/uL 4.2-5.4 [facility] Serum or plasma calcium rosa urement (mass/volume)Ordered By: Carline Ashley on 01-27-2024 Calcium [Mass/Vol] 9.2 mg/dL 8.5-10.1 [facility] Serum or plasma creatinine m easurement (mass/volume)Ordered By: Carline Ashley on 01-27-2024 Creatinine [Mass/Vol] 1.19 mg/dL 0.55-1.02 [facility] Comment on above: The validity of the calculated GFR & GFRAA in patients over 70 years has not been determined. Clinical correlation is essential. Serum or plasma urea nitroge n measurement (mass/volume)Ordered By: Carline Ashley on 01-27-2024 Urea nitrogen [Mass/Vol] 11 mg/dL 7-18 [facility] Thin prep Papanicolaou smear with manual screeningOrdered By: Carline Ashley on 01-27-2024 Thin prep Papanicolaou smear with manual screening 2.9 g/dL 3.2-5.0 [facility] Thin prep Papanicolaou smear with manual screening 25 U/L 15-37 [facility] Thin prep Papanicolaou smear with manual screening 10 5-15 [facility] Thin prep Papanicolaou smear with manual screening 110.0 mg/L NO RANGE EST. [facility] Urine creatinine measurement (mass/volume)Ordered By: Carline Ashley on 01-27-2024 Creatinine (U) [Mass/Vol] 155.00 mg/dL NO RANGE EST. [facility] Activated partial thrombopla stin time (aPTT) in platelet poor plasma by coagulation aOrdered By: Selvin Frost on 01-22-2024 aPTT Coag (PPP) [Time] 204.0 s 24.1-36.2 [facility] Comment on above: CRITICAL VALUE VERIF IED. CALLED TO [id number] [place].RESULTS READ BACK BY SAME. Basophil percentageOrdered B y: Armani Moses on 01-22-2024 Chloride [Moles/Vol] 104 mmol/L 98-107 [facility] Glucose [Mass/Vol] 155 mg/dL 74-106 [facility] Comment on above: Fasting Glucose resu lt greater than or equal to 126 mg/dL suggests DIABETES MELLITUS per A.D.A. criteria. Hemoglobin (Bld) [Mass/Vol] 9.0 g/dL 12.0-15.0 [facility] Potassium [Moles/Vol] 3.7 mmol/L 3.5-5.1 [facility] Sodium [Moles/Vol] 140 mmol/L 136-145 [facility] WBC (Bld) [#/Vol] 13.7 10*3/uL 4.4-11.0 [facility] Determination of erythrocyte mean corpuscular volume (MCV)Ordered By: Armani Moses on 01-22-2024 MCV (RBC) [Entitic vol] 89.3 fL 81-99 [facility] Erythrocyte distribution wid th ratioOrdered By: Armani Moses on 01-22-2024 Erythrocyte distribution width (RBC) [Ratio] 14.3 % 11.6-14.6 [facility] Erythrocyte distribution wid th standard deviationOrdered By: Armani Moses on 01-22-2024 Erythrocyte distribution width (RBC) [Entitic vol] 46.6 fL 35.1-43.9 [facility] Hematocrit Auto (Bld) [Volum e fraction]Ordered By: Armani Moses on 01-22-2024 Hematocrit (Bld) [Volume fraction] 29.2 % 37-47 [facility] Laboratory - Chemistry and C hemistry - challengeOrdered By: Armani Moses on 01-22-2024 CO2 [Moles/Vol] 31.0 mmol/L 21.0-32.0 [facility] Urea nitrogen/Creatinine [Mass ratio] 8.2 mg/mg 10-20 [facility] Laboratory - Hematology and Cell countsOrdered By: Armani Moses on 01-22-2024 MCH (RBC) [Entitic mass] 27.5 pg 27.0-32.0 [facility] MCHC (RBC) [Mass/Vol] 30.8 g/dL 32-36 [facility] Platelet mean volume (Bld) [Entitic vol] 10.1 fL 6.2-12.0 [facility] Platelets (Bld) [#/Vol] 424 10*3/uL 150-450 [facility] No Panel InformationOrdered By: Armani Moses on 01-22-2024 Estimated Creatinine Clearance Calc 31.52 ml/min [facility] Estimated GFR (MDRD) Amer 39 mL/min >60 [facility] Comment on above: GFR Calc Estimated GFR (MDRD) Non-Af Amer 32 mL/min >60 [facility] Comment on above: Non- GFR Calc RBC Auto (Bld) [#/Vol]Ordere d By: Armani Moses on 01-22-2024 RBC (Bld) [#/Vol] 3.27 10*6/uL 4.2-5.4 [facility] Serum or plasma calcium rosa urement (mass/volume)Ordered By: Armani Moses on 01-22-2024 Calcium [Mass/Vol] 8.3 mg/dL 8.5-10.1 [facility] Serum or plasma creatinine m easurement (mass/volume)Ordered By: Armani Moses on 01-22-2024 Creatinine [Mass/Vol] 1.70 mg/dL 0.55-1.02 [facility] Comment on above: The validity of the calculated GFR & GFRAA in patients over 70 years has not been determined. Clinical correlation is essential. Serum or plasma urea nitroge n measurement (mass/volume)Ordered By: Armani Moses on 01-22-2024 Urea nitrogen [Mass/Vol] 14 mg/dL 7-18 [facility] Thin prep Papanicolaou smear with manual screeningOrdered By: Armani Moses on 01-22-2024 Thin prep Papanicolaou smear with manual screening 5 5-15 [facility] Laboratory - Chemistry and C hemistry - challengeOrdered By: Armani Moses on 01-19-2024 Magnesium [Mass/Vol] 1.8 mg/dL 1.6-2.6 [facility] Clostridioides difficile nuc leic acid assay by PCROrdered By: Selvin Barrera on 01-16-2024 C. difficile DNA FARIHA+probe Ql (Unsp spec) [facility] C. difficile DNA FARIHA+probe Ql (Unsp spec) [facility] Absolute lymphocyte countOrd ered By: Katie Retana on 01-15-2024 Lymphocytes Auto (Unsp spec) [#/Vol] 0.79 10*3/uL 0.83-4.51 [facility] Automated lymphocyte count a s percentage of total leukocytesOrdered By: Katie Retana on 01-15-2024 Lymphocytes/100 WBC Auto (Unsp spec) 9.7 % 19-41 [facility] Basophil percentageOrdered B y: Katie Retana on 01-15-2024 Basophils/100 WBC (Bld) 0.6 % 0-1 [facility] Eosinophils/100 WBC (Bld) 1.6 % 0-5 [facility] Monocytes/100 WBC (Bld) 10.3 % 0-10 [facility] Neutrophils (Bld) [#/Vol] 6.3 10*3/uL 2.0-7.7 [facility] Neutrophils/100 WBC (Bld) 77.3 % 47-70 [facility] Immature granulocytes/100 WB C Auto (Bld)Ordered By: Katie Retana on 01-15-2024 Immature granulocytes/100 WBC (Bld) 0.500 % 0.0-0.9 [facility] Comment on above: IG% - Immature Granu locytes (promyelocytes, myelocytes and metamyelocytes) > 1% indicates that a LEFT SHIFT is Present. Laboratory - Hematology and Cell countsOrdered By: Katie Retana on 01-15-2024 Nucleated RBC/100 WBC (Bld) [Ratio] 0 % 0-5 [facility] No Panel InformationOrdered By: Armani Moses on 01-14-2024 Activated Clotting Time 228 sec 74-137 [facility] No Panel InformationOrdered By: Selvin Barrera on 01-14-2024 Activated Clotting Time 228 sec 74-137 [facility] No Panel InformationOrdered By: Lynn Enriquez on 01-14-2024 Complement C3 136 mg/dL 82-167 [facility] Comment on above: Performed at: [address] [id number] Director: Prabhu Sorenson PhD, Phone: [phone] Serum or plasma vancomycin m easurement (mass/volume)Ordered By: Kevin Souza on 01-14-2024 Vancomycin [Mass/Vol] 18.5 ug/mL 0.0-15.0 [facility] Comment on above: VANCOMYCIN STANDARD DRUG THERAPY: CRITICAL VALUE IS > 15.0 mg/L VANCOMYCIN HIGH INTENSITY THERAPY: CRITICAL VALUE IS > 20.0 mg/L PLEASE CONTACT PHARMACY SERVICES (#[id number]) FOR INTERPRETATIONOF RESULTS. THIS RESULT DOES NOT REPRESENT A PEAK OR TROUGHLEVEL FOR THIS DRUG. Basophil percentageOrdered B y: Lynn Enriquez on 01-13-2024 Basophil percentage 0-5 SEEN /hpf 0-5 [facility] Basophil percentageOrdered B y: Selvin Llanosrobby on 01-13-2024 Creatinine (U) [Mass/Vol] 26.60 mg/dL NO RANGE EST. [facility] Bilirubin Test strip Ql (U)O rdered By: Lynn Enriquez on 01-13-2024 Bilirubin Ql (U) Negative Negative [facility] Ketones Test strip Ql (U)Ord ered By: Lynn Enriquez on 01-13-2024 Ketones Ql (U) 5 mg/dl Negative [facility] Laboratory - Chemistry and C hemistry - challengeOrdered By: Selvin Barrera on 01-13-2024 Sodium (U) [Moles/Vol] 83 mmol/L Not Establ. [facility] Mucus LM Ql (Urine sed)Order ed By: Lynn Enriquez on 01-13-2024 Mucus Ql (Urine sed) 0 SEEN /hpf [facility] Nitrite Test strip Ql (U)Ord ered By: Lynn Enriquez on 01-13-2024 Nitrite Ql (U) Negative Negative [facility] No Panel InformationOrdered By: Lynn Enriquez on 01-13-2024 Urine RBC 0-5 SEEN /hpf 0-5 [facility] Protein Test strip Ql (U)Ord ered By: Lynn Enriquez on 01-13-2024 Protein Ql (U) Negative Negative [facility] Squamous epithelial cells de tection in urine sediment by light microscopyOrdered By: Lynn Enriquez on 01-13-2024 Epithelial cells.squamous LM Ql (Urine sed) 0-5 SEEN /hpf 5-10 [facility] Urine blood detectionOrdered By: Lynn Enriquez on 01-13-2024 RBC Ql (U) 25 /ul Negative [facility] Urine clarityOrdered By: Reynaldo Enriquez on 01-13-2024 Clarity (U) Sl. Cloudy Clear [facility] Urine color determinationOrd ered By: Lynn Enriquez on 01-13-2024 Color (U) Yellow Yellow [facility] Urine glucose detectionOrder ed By: Lynn Enriquez on 01-13-2024 Glucose Ql (U) Normal mg/dl Normal [facility] Urine leukocyte esterase det ection by dipstickOrdered By: Lynn Enriquez on 01-13-2024 Leukocyte esterase Test strip Ql (U) Negative Negative [facility] Urine pHOrdered By: Jagdeep Enriquez on 01-13-2024 pH (U) 6.5 [pH] 5.0 - 8.0 [facility] Urine sediment bacteria coun t by microscopy (number/high power field)Ordered By: Lynn Enriquez on 01-13-2024 Bacteria LM.HPF (Urine sed) [#/Area] RARE /hpf None Seen [facility] Urine sediment yeast count b y microscopy (number/high powered field)Ordered By: Lynn Enriquez on 01-13-2024 Yeast LM.HPF (Urine sed) [#/Area] RARE /hpf None Seen [facility] Urine specific gravity measu rementOrdered By: Lynn Enriquez on 01-13-2024 Specific gravity (U) [Rel density] 1.010 1.002-1.03 0 [facility] Urine urobilinogen measureme ntOrdered By: Lynn Enriquez on 01-13-2024 Urobilinogen Ql (U) Normal mg/dl Normal [facility] Serum or plasma trough vanco mycin levelOrdered By: Liz Murillo on 01-12-2024 Vancomycin trough [Mass/Vol] 35.2 ug/mL 5.0-15.0 [facility] Comment on above: VANCOMYCIN STANDARED DRUG THERAPY TROUGH LEVEL: 5.0 - 15.0 mg/L VANCOMYCIN HIGH INTENSITY THERAPY TROUGH LEVEL: 15.0 - 20.0 mg/L High Intensity therapy recommended for serious lifethreatening infections include:- Zibtlrjjso-Cfmvizlvvnli-Getuqxrgj (Ventilator/Healtcare Associated)-Sepsis PLEASE CONTACT PHARMACY SERVICES (#[id number]) FOR INTERPRETATIONOF RESULTS. Anaerobic cultureOrdered By: Momo Camacho on 01-10-2024 Bacteria identified Anaer cx Nom (Unsp spec) No anaerobic bacteria isolated. [facility] Bacteria identified Anaer cx Nom (Unsp spec) No anaerobic bacteria isolated. [facility] Bacteria identified Cx Nom ( Wound)Ordered By: Momo Camacho on 01-10-2024 Wound Culture Raoultella planticola [facility] Wound Culture Staphylococcus auricularis [facility] Wound Culture Raoultella planticola [facility] Wound Culture Staphylococcus auricularis [facility] Fungus cultureOrdered By: Romi Camacho on 01-10-2024 Fungus identified Cx Nom (Unsp spec) [facility] Fungus stainOrdered By: Boyd Camacho on 01-10-2024 Fungus identified Fungus stain Nom (Unsp spec) [facility] Gram stain for investigation of transfusion reactionOrdered By: Momo Camacho on 01-10-2024 Microscopic observation Gram stain Nom (Unsp spec) [facility] Microscopic observation Gram stain Nom (Unsp spec) [facility] Basophil percentageOrdered B y: Liz Murillo on 01-09-2024 Cholesterol [Mass/Vol] 150 mg/dL <200 [facility] Comment on above: <200 mg/dL Desirable 200-240 mg/dL Borderline >240 mg/dL High Risk Triglyceride [Mass/Vol] 116 mg/dL <199 [facility] Comment on above: The drugs N-Acetylcy steine and Metamizole may falsely depress this assay.Serum Triglycerides Reference Interval Normal <150 mg/dL Borderline high 150 - 199 mg/dL High 200 - 499 mg/dL Very High > or = 500 mg/dL Laboratory - Chemistry and C hemistry - challengeOrdered By: Liz Murillo on 01-09-2024 Cholesterol in HDL [Mass/Vol] 38 mg/dL >40 [facility] Comment on above: The drugs N-Acetylcy steine and Metamizole may falsely depress this assay. Reference Range HDL <40 mg/dL Low HDL Cholesterol HDL >or= 60 mg/dL High HDL Cholesterol Cholesterol in LDL [Mass/Vol] 89 mg/dL 0-130 [facility] Laboratory - CoagulationOrde red By: Liz Murillo on 01-09-2024 INR Coag (Bld) [Relative time] 1.0 {INR} [facility] PT Coag (PPP) [Time] 13.5 s 11.7-14.9 [facility] No Panel InformationOrdered By: Liz Murillo on 01-09-2024 VLDL Cholesterol 23 mg/dL 5-40 [facility] Absolute lymphocyte countOrd ered By: Josiane Tucker on 01-08-2024 Lymphocytes Auto (Unsp spec) [#/Vol] 1.37 10*3/uL 0.83-4.51 [facility] Automated lymphocyte count a s percentage of total leukocytesOrdered By: Josiane Tucker on 01-08-2024 Lymphocytes/100 WBC Auto (Unsp spec) 17.2 % 19-41 [facility] Basophil percentageOrdered B y: Josiane Tucker on 01-08-2024 Basophils/100 WBC (Bld) 0.8 % 0-1 [facility] Chloride [Moles/Vol] 106 mmol/L 98-107 [facility] Eosinophils/100 WBC (Bld) 1.0 % 0-5 [facility] Glucose [Mass/Vol] 84 mg/dL 74-106 [facility] Hemoglobin (Bld) [Mass/Vol] 13.4 g/dL 12.0-15.0 [facility] Monocytes/100 WBC (Bld) 7.0 % 0-10 [facility] Neutrophils (Bld) [#/Vol] 5.9 10*3/uL 2.0-7.7 [facility] Neutrophils/100 WBC (Bld) 73.6 % 47-70 [facility] Potassium [Moles/Vol] 3.7 mmol/L 3.5-5.1 [facility] Sodium [Moles/Vol] 139 mmol/L 136-145 [facility] WBC (Bld) [#/Vol] 8.0 10*3/uL 4.4-11.0 [facility] Determination of erythrocyte mean corpuscular volume (MCV)Ordered By: Josiane Tucker on 01-08-2024 MCV (RBC) [Entitic vol] 88.6 fL 81-99 [facility] Erythrocyte distribution wid th ratioOrdered By: Josiane Tucker on 01-08-2024 Erythrocyte distribution width (RBC) [Ratio] 14.8 % 11.6-14.6 [facility] Erythrocyte distribution wid th standard deviationOrdered By: Josiane Tucker on 01-08-2024 Erythrocyte distribution width (RBC) [Entitic vol] 48.0 fL 35.1-43.9 [facility] Erythrocyte sedimentation ra teOrdered By: Josiane Tucker on 01-08-2024 ESR (Bld) [Velocity] 27 mm/h 0-30 [facility] Hematocrit Auto (Bld) [Volum e fraction]Ordered By: Josiane Tucker on 01-08-2024 Hematocrit (Bld) [Volume fraction] 43.4 % 37-47 [facility] Immature granulocytes/100 WB C Auto (Bld)Ordered By: Josiane Tucker on 01-08-2024 Immature granulocytes/100 WBC (Bld) 0.400 % 0.0-0.9 [facility] Comment on above: IG% - Immature Granu locytes (promyelocytes, myelocytes and metamyelocytes) > 1% indicates that a LEFT SHIFT is Present. Laboratory - Chemistry and C hemistry - challengeOrdered By: Josiane Tucker on 01-08-2024 CO2 [Moles/Vol] 30.0 mmol/L 21.0-32.0 [facility] Urea nitrogen/Creatinine [Mass ratio] 16.4 mg/mg 10-20 [facility] Laboratory - Hematology and Cell countsOrdered By: Josiane Tucker on 01-08-2024 MCH (RBC) [Entitic mass] 27.3 pg 27.0-32.0 [facility] MCHC (RBC) [Mass/Vol] 30.9 g/dL 32-36 [facility] Nucleated RBC/100 WBC (Bld) [Ratio] 0 % 0-5 [facility] Platelet mean volume (Bld) [Entitic vol] 9.9 fL 6.2-12.0 [facility] Platelets (Bld) [#/Vol] 327 10*3/uL 150-450 [facility] Laboratory - Microbiology an d Antimicrobial susceptibilityOrdered By: Josiane Tucker on 01-08-2024 Bacteria identified Cx Nom (Bld) No growth in 5 days. [facility] Bacteria identified Cx Nom (Bld) No growth in 5 days. [facility] No Panel InformationOrdered By: Josiane Tucker on 01-08-2024 C-Reactive Protein Extended Range 3.94 mg/L 0.0-3.0 [facility] Comment on above: C-Reactive Protein ( CRP) provides useful information for thediagnosis, therapy and monitoring of inflammatory processesand associated diseases. For the evaluation of Relative Riskfor Cardiovascular Disease, a High Sensitivity CRP (HSCRP)should be ordered. Estimated Creatinine Clearance Calc 66.90 ml/min [facility] Estimated GFR (MDRD) Amer 113 mL/min >60 [facility] Comment on above: GFR Calc Estimated GFR (MDRD) Non-Af Amer 94 mL/min >60 [facility] Comment on above: Non- GFR Calc RBC Auto (Bld) [#/Vol]Ordere d By: Josiane Tucker on 01-08-2024 RBC (Bld) [#/Vol] 4.90 10*6/uL 4.2-5.4 [facility] Serum or plasma calcium rosa urement (mass/volume)Ordered By: Josiane Tucker on 01-08-2024 Calcium [Mass/Vol] 9.4 mg/dL 8.5-10.1 [facility] Serum or plasma creatinine m easurement (mass/volume)Ordered By: Josiane Tucker on 01-08-2024 Creatinine [Mass/Vol] 0.67 mg/dL 0.55-1.02 [facility] Comment on above: The validity of the calculated GFR & GFRAA in patients over 70 years has not been determined. Clinical correlation is essential. Serum or plasma urea nitroge n measurement (mass/volume)Ordered By: Josiane Tucker on 01-08-2024 Urea nitrogen [Mass/Vol] 11 mg/dL 7-18 [facility] Thin prep Papanicolaou smear with manual screeningOrdered By: Josiane Tucker on 01-08-2024 Thin prep Papanicolaou smear with manual screening 3 5-15 [facility] No Panel InformationOrdered By: Jeff Song on 12-18-2023 Estimated GFR (MDRD) Amer 111 mL/min >60 [facility] Comment on above: GFR Calc Estimated GFR (MDRD) Non-Af Amer 92 mL/min >60 [facility] Comment on above: Non- GFR Calc Serum or plasma creatinine m easurement (mass/volume)Ordered By: Jeff Song on 12-18-2023 Creatinine [Mass/Vol] 0.68 mg/dL 0.55-1.02 [facility] Comment on above: The validity of the calculated GFR & GFRAA in patients over 70 years has not been determined. Clinical correlation is essential. Serum or plasma urea nitroge n measurement (mass/volume)Ordered By: Jeff Song on 12-18-2023 Urea nitrogen [Mass/Vol] 13 mg/dL 7-18 [facility] Basophil percentageOrdered B y: Carline Ashley on 10-12-2023 Bilirubin [Mass/Vol] 0.40 mg/dL 0.20-1.00 [facility] Comment on above: For patients on eltr ombopag therapy, use of Dimension [place] TBIL is not recommended. Chloride [Moles/Vol] 104 mmol/L 98-107 [facility] Cholesterol [Mass/Vol] 232 mg/dL <200 [facility] Comment on above: <200 mg/dL Desirable 200-240 mg/dL Borderline >240 mg/dL High Risk Glucose [Mass/Vol] 97 mg/dL 74-106 [facility] Potassium [Moles/Vol] 3.8 mmol/L 3.5-5.1 [facility] Protein [Mass/Vol] 7.5 g/dL 6.4-8.2 [facility] Sodium [Moles/Vol] 139 mmol/L 136-145 [facility] Triglyceride [Mass/Vol] 153 mg/dL <199 [facility] Comment on above: The drugs N-Acetylcy steine and Metamizole may falsely depress this assay.Serum Triglycerides Reference Interval Normal <150 mg/dL Borderline high 150 - 199 mg/dL High 200 - 499 mg/dL Very High > or = 500 mg/dL WBC (Bld) [#/Vol] 9.1 10*3/uL 4.4-11.0 [facility] Blood erythrocytes count (nu mber/volume)Ordered By: Carline Ashley on 10-12-2023 RBC (Bld) [#/Vol] 5.03 10*6/uL 4.2-5.4 [facility] Blood hemoglobin measurement (mass/volume)Ordered By: Carline Ashley on 10-12-2023 Hemoglobin (Bld) [Mass/Vol] 13.7 g/dL 12.0-15.0 [facility] Blood platelet mean volumeOr dered By: Carline Ashley on 10-12-2023 Platelet mean volume (Bld) [Entitic vol] 10.2 fL 6.2-12.0 [facility] Determination of erythrocyte mean corpuscular volume (MCV)Ordered By: Carline Ashley on 10-12-2023 MCV (RBC) [Entitic vol] 90.9 fL 81-99 [facility] Hematocrit Auto (Bld) [Volum e fraction]Ordered By: Carline Ashley on 10-12-2023 Hematocrit (Bld) [Volume fraction] 45.7 % 37-47 [facility] Laboratory - Chemistry and C hemistry - challengeOrdered By: Carline Ashley on 10-12-2023 ALP [Catalytic activity/Vol] 94 U/L 45-117 [facility] ALT [Catalytic activity/Vol] 36 U/L 13-56 [facility] CO2 [Moles/Vol] 28.0 mmol/L 21.0-32.0 [facility] Globulin (S) [Mass/Vol] 3.9 g/dL 2.2-4.2 [facility] Urea nitrogen/Creatinine [Mass ratio] 20.9 mg/mg 10-20 [facility] Laboratory - Hematology and Cell countsOrdered By: Carline Ashley on 10-12-2023 Erythrocyte distribution width (RBC) [Entitic vol] 48.4 fL 35.1-43.9 [facility] Erythrocyte distribution width (RBC) [Ratio] 14.5 % 11.6-14.6 [facility] MCH (RBC) [Entitic mass] 27.2 pg 27.0-32.0 [facility] MCHC Auto (RBC) [Mass/Vol]Or dered By: Carline Ashley on 10-12-2023 MCHC (RBC) [Mass/Vol] 30.0 g/dL 32-36 [facility] No Panel InformationOrdered By: Carline Ashley on 10-12-2023 Estimated GFR (MDRD) Amer 113 mL/min >60 [facility] Comment on above: GFR Calc Estimated GFR (MDRD) Non-Af Amer 94 mL/min >60 [facility] Comment on above: Non- GFR Calc Parathyroid Hormone (Intact) 149.2 pg/mL 18.4-80.1 [facility] Thyroid Stimulating Hormone (TSH) 2.28 uIU/mL 0.358-3.74 [facility] Urine Microalbumin/Creatinine Ratio 64.8 mg/g CRE <30 [facility] Vitamin D 25-Hydroxy 10.2 ng/mL [facility] Comment on above: Vitamin D 25(OH) Sta tus Range Deficiency <20 ng/mL (50nmol/L) Insufficiency 20 - 30 ng/mL (50 - 75 nmol/L) Sufficiency 30 - 100 ng/mL (75 - 250 nmol/L) Toxicity >100 ng/mL (>250 nmol/L) Plasma renin measurement (en zymatic activity/volume)Ordered By: Carline Ashley on 10-12-2023 Renin (P) [Catalytic activity/Vol] 1.341 ng/mL/hr 0.167-5.38 0 [facility] Comment on above: Performed at: [address] [id number] Director: Chris Mahajan MD, Phone: [phone] Platelets bldOrdered By: Joshua Ashley on 10-12-2023 Platelets (Bld) [#/Vol] 348 10*3/uL 150-450 [facility] Serum or plasma albumin rosa urement (mass/volume)Ordered By: Carline Ashley on 10-12-2023 Albumin [Mass/Vol] 3.6 g/dL 3.2-5.0 [facility] Serum or plasma albumin/glob ulin mass ratioOrdered By: Carline Ashley on 10-12-2023 Albumin/Globulin [Mass ratio] 0.9 {ratio} 0.9-2.4 [facility] Serum or plasma calcium rosa urement (mass/volume)Ordered By: Carline Ashley on 10-12-2023 Calcium [Mass/Vol] 8.8 mg/dL 8.5-10.1 [facility] Serum or plasma cholesterol in HDL measurement (mass/volume)Ordered By: Carline Ashley on 10-12-2023 Cholesterol in HDL [Mass/Vol] 37 mg/dL >40 [facility] Comment on above: The drugs N-Acetylcy steine and Metamizole may falsely depress this assay. Reference Range HDL <40 mg/dL Low HDL Cholesterol HDL >or= 60 mg/dL High HDL Cholesterol Serum or plasma cholesterol in VLDL measurement (mass/volume)Ordered By: Carline Ashley on 10-12-2023 Cholesterol in VLDL [Mass/Vol] 31 mg/dL 5-40 [facility] Serum or plasma creatinine m easurement (mass/volume)Ordered By: Carline Ashley on 10-12-2023 Creatinine [Mass/Vol] 0.67 mg/dL 0.55-1.02 [facility] Comment on above: The validity of the calculated GFR & GFRAA in patients over 70 years has not been determined. Clinical correlation is essential. Serum or plasma low density lipoprotein (LDL) cholesterol measurement (mass/volume)Ordered By: Carline Ashley on 10-12-2023 Cholesterol in LDL [Mass/Vol] 164 mg/dL 0-130 [facility] Serum or plasma urea nitroge n measurement (mass/volume)Ordered By: Carline Ashley on 10-12-2023 Urea nitrogen [Mass/Vol] 14 mg/dL 7-18 [facility] Thin prep Papanicolaou smear with manual screeningOrdered By: Carline Ashley on 10-12-2023 Thin prep Papanicolaou smear with manual screening 14 U/L 15-37 [facility] Thin prep Papanicolaou smear with manual screening 7 5-15 [facility] Thin prep Papanicolaou smear with manual screening 116.0 mg/L NO RANGE EST. [facility] Urine creatinine measurement (mass/volume)Ordered By: Carline Ashley on 10-12-2023 Creatinine (U) [Mass/Vol] 179.00 mg/dL NO RANGE EST. [facility] Whole blood hemoglobin A1c/t otal hemoglobin ratio (mass fraction)Ordered By: Carline Ashley on 10-12-2023 HbA1c (Bld) [Mass fraction] 5.4 % 3.8-5.6 [facility] Comment on above: Normal < 5.7 % Predi abetic 5.7 - 6.4 % Diabetic >or= 6.5 % Please note range changes. HEEBRTOVon 04-09-2018 CNOV Office Visit (UCWSTR) BRENDA MACEDO ([id number]) 1955 FDate Time Provider Department04/09/18 5:15 PM MOMO HARDY (EVELIA) WSTR During your visit today, we recorded the following information about you: Temperature Pulse Blood pressure Weight 98.9 degrees 100/minute 140/84 65.3 kgMomo Hardy APRN.CNP 04/09/2018 7:37 PM SignedSubjectiveHPIHPI Brenda Macedo is a 62 year old female who presents today for CC ofbilateral calf pain. This started 1 week ago. Has tried otc medicationwithout relief. Symptoms are worsened by walking/stair. 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 No paincurrently/much worse at work and at end of day..Patient presents with:Musculoskeletal Problem: RT leg pain when standing X 1 weekPAST MEDICAL HISTORYDiagnosis Date- Malignant neoplasm of other specified sites of cervix 07/14/2006PAST SURGICAL HISTORYProcedure Laterality Date- LIGATE FALLOPIAN TUBEALLERGIES Patient has no known allergies.MEDICATIONSnapro xen(NAPROSYN 500 MG TAB) Take one(1) tablet twice [...] oriented to person, place, and time and well-developed,well-nouris hed, and in no distress. Non-toxic appearance. She [...] agreeable to treatment plan.Momo Hardy APRN.Vicky Hardy APRN.CNP 04/09/2018 5:35 PM SignedASSESSMENT/PLAN:1. Muscular aches - ICD9: 729.1, ICD10: M79.1-given stretches/exercises-take medication as prescribed-follow up with primary care if symptoms persist-discussed red flags and reasons for urgent follow up- METHYLPREDNISOLONE 4 MG TABLETS IN A DOSE PACKReferring Provider: SELF [[id number]]Allergies As of Date: 04/09/2018(No Known Allergies)Date Reviewed: 04/09/2018Reviewed by: Momo Hardy - Fully AssessedReason for Visit: Musculoskeletal Problem [69] Cmt: RT leg pain when standing X 1 weekPrimary Visit Diagnosis:Muscular aches [M79.1]Order(s):methylPRED NISolone (MEDROL, JULIANA,) 4 mg Dose-PackFollow dosing instructions, [...] Status:Closed by MOMO HARDY CNP on 04/09/18 [facility] PROGRESSon 04-09-2018 PROGRESS HNO ID: [id number] thor: Momo (Evelia) Marla: (none)Author Type: Nurse PractitionerType: Progress NotesFiled: 04/09/2018 7:37 PMNote Text:SubjectiveHPIHPI Brenda Macedo is a 62 year old female who presents today for CC ofbilateral calf pain. This started 1 week ago. Has tried otc medicationwithout relief. Symptoms are worsened by walking/stair. 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 No paincurrently/much worse at work and at end of day..Patient presents with:Musculoskeletal Problem: RT leg pain when standing X 1 weekPAST MEDICAL HISTORYDiagnosis Date- Malignant neoplasm of other specified sites of cervix 07/14/2006PAST SURGICAL HISTORYProcedure Laterality Date- LIGATE FALLOPIAN TUBEALLERGIES Patient has no known allergies.MEDICATIONSnapro xen(NAPROSYN 500 MG TAB) Take one(1) tablet twice [...] symptoms occur. Patientagreeable to treatment plan.Momo Hardy APRN.PHONOGRAPH MECHANIC Normal [facility] Vital Signs Date Time Vital Sign Value Performing Clinician Karthikeyan ferguson 03-10-2025 05:29-0400 Body mass index (BMI) [Ratio] 32.3 kg/m2 Carline Ashley WAITER/WAITRESS HEAD-C Work Phone: [facility] 03-10-2025 05:29-0400 Body temperature 97.6 [degF] Carline Ashley WAITER/WAITRESS HEAD-C Work Phone: [facility] 03-10-2025 05:29-0400 Body weight 80.28 kg Carline Ashley WAITER/WAITRESS HEAD-C Work Phone: [facility] 03-10-2025 05:29-0400 Diastolic blood pressure 82 mm[Hg] Carline Ashley WAITER/WAITRESS HEAD-C Work Phone: [facility] 03-10-2025 05:29-0400 Heart rate 110 /min Carline Ashley WAITER/WAITRESS HEAD-C Work Phone: [facility] 03-10-2025 05:29-0400 Respiratory rate 20 /min Carline Ashley WAITER/WAITRESS HEAD-C Work Phone: [facility] 03-10-2025 05:29-0400 SaO2% (BldA) [Mass fraction] 94 % Carline Ashley WAITER/WAITRESS HEAD-C Work Phone: [facility] 03-10-2025 05:29-0400 Systolic blood pressure 139 mm[Hg] Carline Ashley WAITER/WAITRESS HEAD-C Work Phone: [facility] 02-21-2025 14:01-0400 Body height 157.48 cm Carline Ashley WAITER/WAITRESS HEAD-C Work Phone: [facility] 02-21-2025 14:01-0400 Body mass index (BMI) [Ratio] 32.1 kg/m2 Carline Ashley WAITER/[employer]RESS HEAD-C Work Phone: [facility] 02-21-2025 14:01-0400 Body temperature 98.3 [degF] Carline Ashley WAITER/WAITRESS HEAD-C Work Phone: [facility] 02-21-2025 14:01-0400 Body weight 79.57 kg Carline Ashley WAITER/[employer]RESS HEAD-C Work Phone: [facility] 02-21-2025 14:01-0400 Diastolic blood pressure 87 mm[Hg] Carline Ashley WAITER/WAITRESS HEAD-C Work Phone: [facility] 02-21-2025 14:01-0400 Heart rate 102 /min Carline Wellingtonpkins WAITER/WAITRESS HEAD-C Work Phone: [facility] 02-21-2025 14:01-0400 Respiratory rate 18 /min Carline Ashley WAITER/WAITRESS HEAD-C Work Phone: [facility] 02-21-2025 14:01-0400 SaO2% (BldA) [Mass fraction] 94 % Carline Ashley WAITER/WAITRESS HEAD-C Work Phone: [facility] 02-21-2025 14:01-0400 Systolic blood pressure 140 mm[Hg] Carline Wellingtonpkins WAITER/WAITRESS HEAD-C Work Phone: [facility] 02-16-2025 12:44-0400 Body height 157.48 cm Carline Wellingtonpkins WAITER/WAITRESS HEAD-C Work Phone: [facility] 02-16-2025 12:44-0400 Body weight 78.01 kg Carline Wellingtonpkins WAITER/WAITRESS HEAD-C Work Phone: [facility] 02-16-2025 12:44-0400 Heart rate 106 /min Carline Wellingtonpkins WAITER/WAITRESS HEAD-C Work Phone: [facility] 02-16-2025 12:44-0400 SaO2% (BldA) [Mass fraction] 92 % Carline Wellingtonpkins WAITER/WAITRESS HEAD-C Work Phone: [facility] 01-11-2025 08:40-0500 Body mass index (BMI) [Ratio] 31.1 kg/m2 Carline Ashley WAITER/WAITRESS HEAD-C Work Phone: [facility] 01-11-2025 08:40-0500 Body temperature 97.4 [degF] Carline Wellingtonpkins WAITER/WAITRESS HEAD-C Work Phone: [facility] 01-11-2025 08:40-0500 Body weight 77.11 kg Carline Wellingtonpkins WAITER/WAITRESS HEAD-C Work Phone: [facility] 01-11-2025 08:40-0500 Diastolic blood pressure 81 mm[Hg] Carline Wellingtonpkins WAITER/WAITRESS HEAD-C Work Phone: [facility] 01-11-2025 08:40-0500 Heart rate 100 /min Carline Wellingtonpkins WAITER/WAITRESS HEAD-C Work Phone: [facility] 01-11-2025 08:40-0500 Respiratory rate 20 /min Carline Wellingtonpkins WAITER/WAITRESS HEAD-C Work Phone: [facility] 01-11-2025 08:40-0500 SaO2% (BldA) [Mass fraction] 95 % Carline Wellingtonpkins WAITER/WAITRESS HEAD-C Work Phone: [facility] 01-11-2025 08:40-0500 Systolic blood pressure 135 mm[Hg] Carline Dion WAITER/WAITRESS HEAD-C Work Phone: [facility] 01-04-2025 09:15-0500 Diastolic blood pressure 77 mm[Hg] Carline Davidson WAITER/WAITRESS HEAD-C Work Phone: [facility] 01-04-2025 09:15-0500 Heart rate 96 /min Carline Dion WAITER/WAITRESS HEAD-C Work Phone: [facility] 01-04-2025 09:15-0500 Inhaled oxygen flow rate 2 L/min Carline Davidson WAITER/WAITRESS HEAD-C Work Phone: [facility] 01-04-2025 09:15-0500 Respiratory rate 18 /min Carline Wellingtonpkins WAITER/WAITRESS HEAD-C Work Phone: [facility] 01-04-2025 09:15-0500 SaO2% (BldA) [Mass fraction] 93 % Carline Wellingtonpkins WAITER/WAITRESS HEAD-C Work Phone: [facility] 01-04-2025 09:15-0500 Systolic blood pressure 120 mm[Hg] Carline Dion WAITER/WAITRESS HEAD-C Work Phone: [facility] 01-04-2025 09:09-0500 Body temperature 97 [degF] Carline Davidson WAITER/WAITRESS HEAD-C Work Phone: [facility] 01-04-2025 07:18-0500 Body height 157.48 cm Carline Dion WAITER/WAITRESS HEAD-C Work Phone: [facility] 01-04-2025 07:18-0500 Body mass index (BMI) [Ratio] 31 kg/m2 Carline Wellingtonpkins WAITER/WAITRESS HEAD-C Work Phone: [facility] 01-04-2025 07:18-0500 Body weight 77 kg Carline Wellingtonpkins WAITER/WAITRESS HEAD-C Work Phone: [facility] 07-28-2024 12:12-0400 Body temperature 97.4 [degF] Carline Dion WAITER/WAITRESS HEAD-C Work Phone: [facility] 07-28-2024 12:12-0400 Diastolic blood pressure 74 mm[Hg] Carline Ashley WAITER/WAITRESS HEAD-C Work Phone: [facility] 07-28-2024 12:12-0400 Heart rate 106 /min Carline Ashley WAITER/WAITRESS HEAD-C Work Phone: [facility] 07-28-2024 12:12-0400 Respiratory rate 16 /min Carline Dion WAITER/WAITRESS HEAD-C Work Phone: [facility] 07-28-2024 12:12-0400 Systolic blood pressure 137 mm[Hg] Carline Ashley WAITER/WAITRESS HEAD-C Work Phone: [facility] 07-28-2024 11:31-0400 SaO2% (BldA) [Mass fraction] 99 % Carline Davidson WAITER/WAITRESS HEAD-C Work Phone: [facility] 07-21-2024 13:59-0400 Body mass index (BMI) [Ratio] 22.6 kg/m2 Carline Ashley WAITER/WAITRESS HEAD-C Work Phone: [facility] 03-17-2024 10:40-0400 Body height 154.94 cm WAITER/WAITRESS HEAD-C Carline Ashley WAITER/WAITRESS HEAD Work Phone: [facility] 03-17-2024 10:40-0400 Body mass index (BMI) [Ratio] 29.8 kg/m2 WAITER/WAITRESS HEAD-C Carline Ashley WAITER/WAITRESS HEAD Work Phone: [facility] 03-17-2024 10:40-0400 Body temperature 99.5 [degF] WAITER/WAITRESS HEAD-C Carline Davidson WAITER/WAITRESS HEAD Work Phone: [facility] 03-17-2024 10:40-0400 Body weight 71.66 kg WAITER/WAITRESS HEAD-C Carline Ashley WAITER/WAITRESS HEAD Work Phone: [facility] 03-17-2024 10:40-0400 Diastolic blood pressure 77 mm[Hg] WAITER/WAITRESS HEAD-C Carline Ashley WAITER/WAITRESS HEAD Work Phone: [facility] 03-17-2024 10:40-0400 Heart rate 128 /min WAITER/WAITRESS HEAD-C Carline Ashley WAITER/WAITRESS HEAD Work Phone: [facility] 03-17-2024 10:40-0400 Respiratory rate 18 /min WAITER/WAITRESS HEAD-C Carline Ashley WAITER/WAITRESS HEAD Work Phone: [facility] 03-17-2024 10:40-0400 SaO2% (BldA) [Mass fraction] 99 % WAITER/WAITRESS HEAD-C Carline Ashley WAITER/WAITRESS HEAD Work Phone: [facility] 03-17-2024 10:40-0400 Systolic blood pressure 137 mm[Hg] WAITER/WAITRESS HEAD-C Carline Ashley WAITER/WAITRESS HEAD Work Phone: [facility] 02-17-2024 13:07-0400 Body mass index (BMI) [Ratio] 32.1 kg/m2 WAITER/WAITRESS HEAD-C Carline Ashley WAITER/WAITRESS HEAD Work Phone: [facility] 02-17-2024 13:07-0400 Body temperature 97.6 [degF] WAITER/WAITRESS HEAD-C Carline Ashley WAITER/WAITRESS HEAD Work Phone: [facility] 02-17-2024 13:07-0400 Diastolic blood pressure 75 mm[Hg] WAITER/WAITRESS HEAD-C Carline Ashley WAITER/WAITRESS HEAD Work Phone: [facility] 02-17-2024 13:07-0400 Heart rate 100 /min WAITER/WAITRESS HEAD-C Carline Ashley WAITER/WAITRESS HEAD Work Phone: [facility] 02-17-2024 13:07-0400 Respiratory rate 18 /min WAITER/WAITRESS HEAD-C Carline Ashley WAITER/WAITRESS HEAD Work Phone: [facility] 02-17-2024 13:07-0400 Systolic blood pressure 138 mm[Hg] WAITER/WAITRESS HEAD-C Carline Ashley WAITER/WAITRESS HEAD Work Phone: [facility] 02-15-2024 00:29-0400 Body weight 77.11 kg WAITER/WAITRESS HEAD-C Carline Ashley WAITER/WAITRESS HEAD Work Phone: [facility] 02-11-2024 09:58-0400 Body temperature 98.9 [degF] WAITER/WAITRESS HEAD-C Carline Ashley WAITER/WAITRESS HEAD Work Phone: [facility] 02-11-2024 09:58-0400 Body weight 68.03 kg WAITER/WAITRESS HEAD-C Carline Ashley WAITER/WAITRESS HEAD Work Phone: [facility] 02-11-2024 09:58-0400 Diastolic blood pressure 76 mm[Hg] WAITER/WAITRESS HEAD-C Carline Ashley WAITER/WAITRESS HEAD Work Phone: [facility] 02-11-2024 09:58-0400 Heart rate 125 /min WAITER/WAITRESS HEAD-C Carline Ashley WAITER/WAITRESS HEAD Work Phone: [facility] 02-11-2024 09:58-0400 Respiratory rate 18 /min WAITER/WAITRESS HEAD-C Carline Ashley WAITER/WAITRESS HEAD Work Phone: [facility] 02-11-2024 09:58-0400 SaO2% (BldA) [Mass fraction] 95 % WAITER/WAITRESS HEAD-C Carline Ashley WAITER/WAITRESS HEAD Work Phone: [facility] 02-11-2024 09:58-0400 Systolic blood pressure 138 mm[Hg] WAITER/WAITRESS HEAD-C Carline Ashley WAITER/WAITRESS HEAD Work Phone: [facility] 02-03-2024 11:34-0400 Body mass index (BMI) [Ratio] 32.1 kg/m2 WAITER/WAITRESS HEAD-C Carline Ashley WAITER/WAITRESS HEAD Work Phone: [facility] 02-03-2024 11:34-0400 Diastolic blood pressure 76 mm[Hg] WAITER/WAITRESS HEAD-C Carline Ashley WAITER/WAITRESS HEAD Work Phone: [facility] 02-03-2024 11:34-0400 Heart rate 137 /min WAITER/WAITRESS HEAD-C Carline Ashley WAITER/WAITRESS HEAD Work Phone: [facility] 02-03-2024 11:34-0400 Respiratory rate 18 /min WAITER/WAITRESS HEAD-C Carline Ashley WAITER/WAITRESS HEAD Work Phone: [facility] 02-03-2024 11:34-0400 Systolic blood pressure 143 mm[Hg] WAITER/WAITRESS HEAD-C Carline Ashley WAITER/WAITRESS HEAD Work Phone: [facility] 01-27-2024 10:00-0400 Body height 154.94 cm WAITER/WAITRESS HEAD-C Carline Ashley WAITER/WAITRESS HEAD Work Phone: [facility] 01-27-2024 10:00-0400 Body mass index (BMI) [Ratio] 32.1 kg/m2 WAITER/WAITRESS HEAD-C Carline Ashley WAITER/WAITRESS HEAD Work Phone: [facility] 01-27-2024 10:00-0400 Body temperature 97.7 [degF] WAITER/WAITRESS HEAD-C Carline Ashley WAITER/WAITRESS HEAD Work Phone: [facility] 01-27-2024 10:00-0400 Body weight 77.11 kg WAITER/WAITRESS HEAD-C Carline Ashley WAITER/WAITRESS HEAD Work Phone: [facility] 01-27-2024 10:00-0400 Diastolic blood pressure 79 mm[Hg] WAITER/WAITRESS HEAD-C Carline Ashley WAITER/WAITRESS HEAD Work Phone: [facility] 01-27-2024 10:00-0400 Heart rate 134 /min WAITER/WAITRESS HEAD-C Carline Ashley WAITER/WAITRESS HEAD Work Phone: [facility] 01-27-2024 10:00-0400 Respiratory rate 18 /min WAITER/WAITRESS HEAD-C Carline Ashley WAITER/WAITRESS HEAD Work Phone: [facility] 01-27-2024 10:00-0400 Systolic blood pressure 146 mm[Hg] WAITER/WAITRESS HEAD-C Carline Ashley WAITER/WAITRESS HEAD Work Phone: [facility] 01-22-2024 11:41-0500 Inhaled oxygen flow rate 0 L/min WAITER/WAITRESS HEAD-C Carline Ashley WAITER/WAITRESS HEAD Work Phone: [facility] 01-22-2024 11:41-0500 SaO2% (BldA) [Mass fraction] 91 % WAITER/WAITRESS HEAD-C Carline Ashley WAITER/WAITRESS HEAD Work Phone: [facility] 01-22-2024 10:00-0500 Diastolic blood pressure 64 mm[Hg] WAITER/WAITRESS HEAD-C Carline Ashley WAITER/WAITRESS HEAD Work Phone: [facility] 01-22-2024 10:00-0500 Heart rate 95 /min WAITER/WAITRESS HEAD-C Carline Ashley WAITER/WAITRESS HEAD Work Phone: [facility] 01-22-2024 10:00-0500 Respiratory rate 21 /min WAITER/WAITRESS HEAD-C Carline Ashley WAITER/WAITRESS HEAD Work Phone: [facility] 01-22-2024 10:00-0500 Systolic blood pressure 115 mm[Hg] WAITER/WAITRESS HEAD-C Carline Ashley WAITER/WAITRESS HEAD Work Phone: [facility] 01-22-2024 08:00-0500 Body temperature 98.5 [degF] WAITER/WAITRESS HEAD-C Carline Ashley WAITER/WAITRESS HEAD Work Phone: [facility] 01-22-2024 04:32-0500 Body mass index (BMI) [Ratio] 31.7 kg/m2 WAITER/WAITRESS HEAD-C Carline Ashley WAITER/WAITRESS HEAD Work Phone: [facility] 01-22-2024 04:32-0500 Body weight 78.2 kg WAITER/WAITRESS HEAD-C Carline Ashley WAITER/WAITRESS HEAD Work Phone: [facility] 01-21-2024 04:20-0500 Body height 157.48 cm WAITER/WAITRESS HEAD-C Carline Ashley WAITER/WAITRESS HEAD Work Phone: [facility] 01-08-2024 18:12-0500 Body temperature 97.8 [degF] [facility] 01-08-2024 18:12-0500 Diastolic blood pressure 91 mm[Hg] [facility] 01-08-2024 18:12-0500 Heart rate 105 /min [facility] 01-08-2024 18:12-0500 Respiratory rate 20 /min [facility] 01-08-2024 18:12-0500 SaO2% (BldA) [Mass fraction] 97 % [facility] 01-08-2024 18:12-0500 Systolic blood pressure 129 mm[Hg] [facility] 01-08-2024 14:57-0500 Body mass index (BMI) [Ratio] 31.4 kg/m2 [facility] 01-08-2024 14:57-0500 Body weight 78 kg [facility] 01-08-2024 13:36-0500 Body height 157.48 cm [facility] Encounters Encounter Date Encounter Type Care Provider Facility Start: 04-18-2025 ambulatory Carline Ashley WAITER/WAITRESS HEAD Facility:[facility] Start: 04-12-2025 End: 04-12-2025 ambulatory Carline Ashley WAITER/WAITRESS HEAD-C Work Phone: [facility] Work Phone: Start: 04-12-2025 End: 04-12-2025 Patient encounter procedure Carline Ashley WAITER/WAITRESS HEAD-C -Laboratory Specimen Work Phone: Start: 04-12-2025 End: 04-12-2025 ambulatory Carline Ashley WAITER/WAITRESS HEAD Facility:[facility] Start: 03-10-2025 End: 03-10-2025 Patient encounter procedure WAITER/WAITRESS HEAD Rupali Sowmya [facility] Pulmonary Medicine Work Phone: Start: 03-10-2025 End: 03-10-2025 ambulatory Carline Ashley WAITER/WAITRESS HEAD Facility:[facility] Start: 02-24-2025 End: 02-24-2025 ambulatory Carline Ashley WAITER/WAITRESS HEAD-C Work Phone: [facility] Work Phone: Start: 02-24-2025 End: 02-24-2025 Patient encounter procedure Tamar CAVANAUGH -Ultrasound, [facility] Work Phone: Start: 02-24-2025 End: 02-24-2025 ambulatory Tamar Lacey Facility:[facility] Start: 02-22-2025 ambulatory Carline Ashley WAITER/WAITRESS HEAD Facility:[facility] Start: 02-22-2025 Non-patient / Non-visit Dr. Danis Bustos DO -[facility] Start: 02-21-[address] Joseph Torres MD -[facility] Start: 02-21-2025 End: 02-21-[address] Joseph Torres MD -[facility] Work Phone: Start: 02-21-2025 End: 02-21-2025 ambulatory Carline Ashley WAITER/WAITRESS HEAD Facility:[facility] Start: 02-20-2025 Non-patient / Non-visit Dr. Selvin Frost MD -[facility] Start: 02-20-2025 End: 02-20-2025 ambulatory Carline Ashley WAITER/WAITRESS HEAD-C Work Phone: [facility] Work Phone: Start: 02-20-2025 End: 02-20-2025 Patient encounter procedure Katie CAVANAUGH -Cardiovascular Services Work Phone: Start: 02-20-2025 End: 02-20-2025 ambulatory Carline Ashley WAITER/WAITRESS HEAD Facility:[facility] Start: 02-16-2025 End: 02-16-2025 ambulatory Carline Ashley WAITER/WAITRESS HEAD-C Work Phone: [facility] Work Phone: Start: 02-16-2025 End: 02-16-[address] Danis Bustos DO -Pulmonary Services/Neurology Work Phone: Start: 02-15-2025 End: 02-15-2025 Patient encounter procedure Tamar Lacey PA -Laboratory Work Phone: Start: 02-15-2025 End: 02-16-2025 ambulatory Carline Ashley WAITER/WAITRESS HEAD-C Work Phone: [facility] Work Phone: Start: 02-14-2025 End: 02-15-2025 ambulatory Carline Ashley WAITER/WAITRESS HEAD-C Work Phone: [facility] Work Phone: Start: 02-14-2025 End: 02-14-[address] Danis Bustos DO -Pulmonary Services/Neurology Work Phone: Start: 02-14-2025 End: 02-14-2025 ambulatory Carline Ashley WAITER/WAITRESS HEAD Facility:[facility] Start: 01-26-2025 End: 01-26-2025 ambulatory Carline Ashley WAITER/WAITRESS HEAD-C Work Phone: [facility] Work Phone: Start: 01-26-2025 End: 01-26-2025 Patient encounter procedure Carline Ashley WAITER/WAITRESS HEAD-C -Outpatient Breast Imaging Work Phone: Start: 01-26-2025 End: 01-26-2025 ambulatory Carline Ashley WAITER/WAITRESS HEAD Facility:[facility] Start: 01-11-2025 End: 01-11-[address] Danis Bustos DO -[facility] Work Phone: Start: 01-11-2025 End: 01-11-2025 ambulatory Carline Ashley WAITER/WAITRESS HEAD [facility] Start: 01-04-2025 ambulatory Carline Ashley WAITER/WAITRESS HEAD [facility] Start: 01-04-2025 Non-patient / Non-visit Adi Kincaid DO -[facility] Start: 01-04-2025 End: 01-04-2025 Admission to same day surgery center Adi Kincaid DO -Endoscopy Work Phone: Start: 01-04-2025 End: 01-04-2025 ambulatory Carline Ashley WAITER/WAITRESS HEAD Facility:[facility] Start: 11-11-2024 End: 11-11-2024 Patient encounter procedure Carline Ashley WAITER/WAITRESS HEAD-C -Laboratory Work Phone: Start: 11-11-2024 End: 11-11-2024 ambulatory Carline Ashley WAITER/WAITRESS HEAD Facility:[facility] Start: 10-20-2024 End: 10-20-2024 Patient encounter procedure Tamar CAVANAUGH -[facility] Work Phone: Start: 10-20-2024 End: 10-20-2024 ambulatory Carline Ashley WAITER/WAITRESS HEAD [facility] Start: 10-20-2024 End: 10-20-2024 ambulatory Carline Ashley WAITER/WAITRESS HEAD Facility:[facility] Start: 09-12-2024 End: 09-12-2024 ambulatory Carline Ashley WAITER/WAITRESS HEAD Facility:[facility] Start: 09-06-2024 End: 09-06-2024 ambulatory Carline Ashley WAITER/WAITRESS HEAD [facility] Start: 08-16-2024 End: 08-16-2024 ambulatory Carline Ashley WAITER/WAITRESS HEAD [facility] Start: 08-16-2024 End: 08-16-2024 ambulatory Carline Ashley WAITER/WAITRESS HEAD Facility:[facility] Start: 08-09-2024 ambulatory Selvin Frost Facility:[facility] Start: 08-09-2024 End: 08-09-2024 ambulatory Carline Ashley WAITER/WAITRESS HEAD Facility:[facility] Start: 07-21-2024 End: 07-21-2024 ambulatory Carline Ashley WAITER/WAITRESS HEAD [facility] Start: 07-13-2024 End: 07-13-2024 ambulatory Carline Ashley WAITER/WAITRESS HEAD [facility] Start: 07-11-2024 End: 07-11-2024 ambulatory Carline Ashley WAITER/WAITRESS HEAD [facility] Start: 06-23-2024 ambulatory Meli Carvajal Facility [facility] Start: 06-10-2024 End: 06-10-2024 ambulatory Carline Ashley WAITER/WAITRESS HEAD Facility:[facility] Start: 06-08-2024 End: 06-08-2024 ambulatory Carline Ashley WAITER/WAITRESS HEAD [facility] Start: 05-28-2024 End: 05-30-2024 ambulatory Carline Ashley WAITER/WAITRESS HEAD Facility:[facility] Start: 05-22-2024 ambulatory Leo F Kotsonis Fac ility:[facility] Start: 05-22-2024 End: 05-26-2024 Evaluation and management of inpatient Leo F Kotsonis Facility:[facility] Start: 05-20-2024 ambulatory Leo F Kotsonis Fac ility:[facility] Start: 05-18-2024 ambulatory Leo F Kotsonis Fac ility:[facility] Start: 05-18-2024 End: 05-20-2024 Evaluation and management of inpatient Leo F Kotsonis Facility:[facility] Start: 05-06-2024 ambulatory Belinda Baker Facility:[facility] Start: 05-05-2024 ambulatory Carline Ashley WAITER/WAITRESS HEAD [facility] Start: 05-03-2024 ambulatory Carline Ashley WAITER/WAITRESS HEAD [facility] Start: 05-03-2024 End: 05-10-2024 Evaluation and management of inpatient Belinda Baker Facility:[facility] Start: 05-03-2024 End: 05-03-2024 ambulatory Carline Ashley WAITER/WAITRESS HEAD Facility:[facility] Start: 03-17-2024 Non-patient / Non-visit WAITER/WAITRESS HEAD-C Carline Ashley WAITER/WAITRESS HEAD Work Phone: [facility] Start: 03-17-2024 End: 03-17-2024 ambulatory WAITER/WAITRESS HEAD-C Carline Ashley WAITER/WAITRESS HEAD Work Phone: [facility] Work Phone: Start: 03-17-2024 End: 03-17-2024 Patient encounter procedure WAITER/WAITRESS HEAD-C Carline Ashley WAITER/WAITRESS HEAD Work Phone: [facility] [facility] Work Phone: Start: 03-07-2024 End: 03-07-2024 ambulatory WAITER/WAITRESS HEAD-C Carline Ashley WAITER/WAITRESS HEAD Work Phone: [facility] Work Phone: Start: 03-07-2024 End: 03-07-2024 Patient encounter procedure WAITER/WAITRESS HEAD-C Carline Ashley WAITER/WAITRESS HEAD Work Phone: [facility]-Laboratory Work Phone: Start: 03-02-2024 Non-patient / Non-visit WAITER/WAITRESS HEAD-C Carline Ashley WAITER/WAITRESS HEAD Work Phone: [facility] Start: 03-02-2024 End: 03-02-2024 ambulatory WAITER/WAITRESS HEAD-C Carline Ashley WAITER/WAITRESS HEAD Work Phone: [facility] Work Phone: Start: 03-02-2024 End: 03-02-2024 Patient encounter procedure WAITER/WAITRESS HEAD-C Carline Ashley WAITER/WAITRESS HEAD Work Phone: [facility]-Cardiovascular Services Work Phone: Start: 02-26-2024 End: 02-26-2024 ambulatory WAITER/WAITRESS HEAD-C Carline Ashley WAITER/WAITRESS HEAD Work Phone: [facility] Work Phone: Start: 02-26-2024 End: 02-26-2024 Patient encounter procedure WAITER/WAITRESS HEAD-C Carline Ashley WAITER/WAITRESS HEAD Work Phone: [facility]-Pulmonary Services/Neurology Work Phone: Start: 02-17-2024 End: 03-15-2024 ambulatory WAITER/WAITRESS HEAD-C Carline Ashley WAITER/WAITRESS HEAD Work Phone: [facility] Work Phone: Start: 02-17-2024 End: 03-15-2024 Discharged Recurring WAITER/WAITRESS HEAD-C Carline Ashley WAITER/WAITRESS HEAD [facility] Work Phone: Start: 02-17-2024 Registered Recurring WAITER/WAITRESS HEAD-C Da Ashley WAITER/WAITRESS HEAD [facility] Work Phone: Start: 02-11-2024 End: 02-11-2024 Patient encounter procedure WAITER/WAITRESS HEAD-C Carline Ashley WAITER/WAITRESS HEAD Work Phone: [facility] Vascular Surgery Work Phone: Start: 02-03-2024 End: 02-14-2024 ambulatory WAITER/WAITRESS HEAD-C Carline Ashley WAITER/WAITRESS HEAD Work Phone: [facility] Work Phone: Start: 02-03-2024 End: 02-14-2024 Discharged Recurring WAITER/WAITRESS HEAD-C Carline Ashley WAITER/WAITRESS HEAD [facility] Work Phone: Start: 01-27-2024 Registered Recurring WAITER/WAITRESS HEAD-C Da Ashley WAITER/WAITRESS HEAD [facility] Phone[facility] Work Phone: Start: 01-27-2024 End: 01-27-2024 ambulatory WAITER/WAITRESS HEAD-C Carline Ashley WAITER/WAITRESS HEAD Work Phone: [facility] Work Phone: Start: 01-27-2024 End: 01-27-2024 Patient encounter procedure WAITER/WAITRESS HEAD-C Carline Ashley WAITER/WAITRESS HEAD Work Phone: [facility]-Laboratory Work Phone: Start: 01-22-2024 Non-patient / Non-visit WAITER/WAITRESS HEAD-C Carline Ashley WAITER/WAITRESS HEAD Work Phone: [facility] Start: 01-21-2024 Non-patient / Non-visit WAITER/WAITRESS HEAD-C Carline Ashley WAITER/WAITRESS HEAD Work Phone: [facility] Work Phone: Start: 01-21-2024 Non-patient / Non-visit WAITER/WAITRESS HEAD-C Carline Wellingtonpkins WAITER/WAITRESS HEAD Work Phone: [facility] Start: 01-20-2024 Non-patient / Non-visit WAITER/WAITRESS HEAD-C Carline Wellingtonpkins WAITER/WAITRESS HEAD Work Phone: [facility] Start: 01-20-2024 Non-patient / Non-visit WAITER/WAITRESS HEAD-C Carline Wellingtonpkins WAITER/WAITRESS HEAD Work Phone: [facility] In[facility] Physicians Work Phone: Start: 01-19-2024 Non-patient / Non-visit WAITER/WAITRESS HEAD-C Carline Wellingtonpkins WAITER/WAITRESS HEAD Work Phone: [facility] Work Phone: Start: 01-18-2024 Non-patient / Non-visit WAITER/WAITRESS HEAD-C Carline Wellingtonpkins WAITER/WAITRESS HEAD Work Phone: [facility] Start: 01-18-2024 Non-patient / Non-visit WAITER/WAITRESS HEAD-C Carline Wellingtonpkins WAITER/WAITRESS HEAD Work Phone: [facility] Work Phone: Start: 01-17-2024 Non-patient / Non-visit WAITER/WAITRESS HEAD-C Carline Wellingtonpkins WAITER/WAITRESS HEAD Work Phone: [facility] Work Phone: Start: 01-16-2024 Non-patient / Non-visit WAITER/WAITRESS HEAD-C Carline Wellingtonpkins WAITER/WAITRESS HEAD Work Phone: [facility] Work Phone: Start: 01-15-2024 Non-patient / Non-visit WAITER/WAITRESS HEAD-C Carline Wellingtonpkins WAITER/WAITRESS HEAD Work Phone: [facility] Start: 01-15-2024 Non-patient / Non-visit WAITER/WAITRESS HEAD-C Carline Dion WAITER/WAITRESS HEAD Work Phone: [facility] Start: 01-15-2024 Non-patient / Non-visit WAITER/WAITRESS HEAD-C Carline Wellingtonpkins WAITER/WAITRESS HEAD Work Phone: [facility] In[facility] Phys[facility] Work Phone: Start: 01-14-2024 Non-patient / Non-visit WAITER/WAITRESS HEAD-C Carline Wellingtonpkins WAITER/WAITRESS HEAD Work Phone: [facility] Start: 01-14-2024 Non-patient / Non-visit WAITER/WAITRESS HEAD-C Carline Wellingtonpkins WAITER/WAITRESS HEAD [facility] Work Phone: Start: 01-13-2024 Non-patient / Non-visit WAITER/WAITRESS HEAD-C Carline Wellingtonpkins WAITER/WAITRESS HEAD [facility] Work Phone: Start: 01-12-2024 Non-patient / Non-visit WAITER/WAITRESS HEAD-C Carline Wellingtonpkins WAITER/WAITRESS HEAD Work Phone: [facility] Work Phone: Start: 01-11-2024 Non-patient / Non-visit WAITER/WAITRESS HEAD-C Carline Ashley WAITER/WAITRESS HEAD Work Phone: [facility] Start: 01-11-2024 Non-patient / Non-visit WAITER/WAITRESS HEAD-C Carline Wellingtonpkins WAITER/WAITRESS HEAD Work Phone: [facility] Work Phone: Start: 01-10-2024 Non-patient / Non-visit WAITER/WAITRESS HEAD-C Carline Wellingtonpkins WAITER/WAITRESS HEAD Work Phone[facility] Work Phone: Start: 01-09-2024 Non-patient / Non-visit WAITER/WAITRESS HEAD-C Carline Wellingtonpkins WAITER/WAITRESS HEAD Work Phone: [facility] Work Phone: Start: 01-08-2024 End: 01-22-2024 Evaluation and management of inpatient [facility]-Medical Surgical 3 Work Phone: Start: 01-01-2024 ambulatory JEFF SONG MD Facil ity:A Start: 12-21-2023 End: 12-21-2023 ambulatory [facility] Work Phone: Start: 12-21-2023 End: 12-21-2023 Patient encounter procedure [facility]-Cat Scan, [facility] Work Phone: Start: 10-28-2023 End: 10-29-2023 ambulatory CARLINE WELLINGTONPKINS PROVIDER NETWORK MANAGER - PHONOGRAPH MECHANIC Facility:[facility] Start: 10-28-2023 End: 10-28-2023 Patient encounter procedure CARLINE WELLINGTONPKINS PROVIDER NETWORK MANAGER - PHONOGRAPH MECHANIC [facility] Start: 10-23-2023 ambulatory CARLINE WELLINGTONRosy DELGADO PROVIDER NETWORK MANAGER - PHONOGRAPH MECHANIC Facility:[facility] Start: 10-12-2023 End: 10-12-2023 ambulatory [facility] Work Phone: Start: 10-12-2023 End: 10-12-2023 Patient encounter procedure [facility]-Laboratory Work Phone: Start: 04-09-2018 End: 04-13-[address] [facility] Procedures Date Procedure Procedure Detail Performing Clinician Start: 04-12-2025 Parathyroid hormone measurement Carline Davidson WAITER/WAITRESS HEAD-C Work Phone: Start: 04-12-2025 Total iron binding c apacity measurement Carline Wellingtonpkins WAITER/WAITRESS HEAD-C Work Phone: Start: 04-12-2025 Urine microalbumin/creatinine ratio measurement Carline Davidson WAITER/WAITRESS HEAD-C Work Phone: Start: 04-12-2025 Vitamin D, 25-hydrox y measurement Carline Wellingtonpkins WAITER/WAITRESS HEAD-C Work Phone: Comment on above: Vitamin D StatusDefi ciency: <20 ng/mL (50nmol/L)Insufficiency: 20-30 ng/mL (50-75 nmol/L)Sufficiency: 30-100 ng/mL (75-250 nmol/L)Toxicity: >100 ng/mL (>250 nmol/L) Start: 02-24-2025 Ultrasound elastogra phy of liver Carline Ashley WAITER/WAITRESS HEAD-C Work Phone: Start: 02-21-2025 Estimated creatinine clearance Carline Ashley WAITER/WAITRESS HEAD-C Work Phone: Start: 02-21-2025 Total iron binding c apacity measurement Carline Ashley WAITER/WAITRESS HEAD-C Work Phone: Start: 01-26-2025 Screening mammography Flex Ashley WAITER/WAITRESS HEAD-C Work Phone: Start: 09-06-2024 Assay of phosphorus inorganic Carline Ashley WAITER/WAITRESS HEAD-C Work Phone: Start: 09-06-2024 Folic acid measurement Carline Ashley WAITER/WAITRESS HEAD-C Work Phone: Start: 09-06-2024 Immature reticulocyt e fraction Carline Ashley WAITER/WAITRESS HEAD-C Work Phone: Start: 09-06-2024 Measurement of renal function Carline Ashley WAITER/WAITRESS HEAD-C Work Phone: Comment on above: GFR Calc Start: 01-21-2024 Femoral-femoral cros sover arteriogram WAITER/WAITRESS HEAD-C Carline Ashley WAITER/WAITRESS HEAD Work Phone: Start: 01-16-2024 Clostridium difficil e detection WAITER/WAITRESS HEAD-C Carline Ashley WAITER/WAITRESS HEAD Work Phone: Start: 01-13-2024 Debridement WAITER/WAITRESS HEAD-C Marjan sammy Ashley WAITER/WAITRESS HEAD Work Phone: Start: 01-13-2024 US urinary tract WAITER/WAITRESS HEAD-C Flex Ashley WAITER/WAITRESS HEAD Work Phone: Start: 01-10-2024 Anaerobic microbial culture WAITER/WAITRESS HEAD-C Carline Ashley WAITER/WAITRESS HEAD Work Phone: Start: 01-10-2024 Fungus stain method WAITER/WAITRESS HEAD- C Carline Ashley WAITER/WAITRESS HEAD Work Phone: Start: 01-10-2024 Investigation of transfusion reaction WAITER/WAITRESS HEAD-C Carline Ashley WAITER/WAITRESS HEAD Work Phone: Start: 01-10-2024 Microbial culture, routine WAITER/WAITRESS HEAD-C Carline Ashley WAITER/WAITRESS HEAD Work Phone: Start: 01-10-2024 Mycology culture WAITER/WAITRESS HEAD-C Flex Ashley WAITER/WAITRESS HEAD Work Phone: Start: 01-10-2024 Amputation of toe WAITER/WAITRESS HEAD-C Carline Ashley WAITER/WAITRESS HEAD Work Phone: Start: 01-10-2024 Fluoroscopic guidance N P-C Carline Ashley WAITER/WAITRESS HEAD Work Phone: Start: 01-10-2024 Plain X-ray of toe WAITER/WAITRESS HEAD-C Carline Ashley WAITER/WAITRESS HEAD Work Phone: Start: 01-08-2024 Plain chest X-ray Start: 01-08-2024 X-ray of both feet Start: 01-08-2024 Bacteria identified in Blood by Culture WAITER/WAITRESS HEAD-C Carline Ashley WAITER/WAITRESS HEAD Work Phone: Start: 12-21-2023 CT of abdominal aort a with contrast Plan of Treatment Date Care Activity Detail Author Start: 02-21-2025 [facility] Start: 02-16-2025 Walking distance 6 minutes [facility] Start: 02-14-2025 Measurement of respi ratory function [facility] Start: 01-04-2025 Egd transoral contro l bleeding any method EGD CONTROL BLEEDING ANY [facility] Start: 01-04-2025 Patient discharge [facility] Start: 01-22-2024 Patient discharge [facility] Start: 01-21-2024 End: 01-22-2024 [facility] Start: 01-21-2024 Ambulation without limitation [facility] Start: 01-21-2024 Assessment of risk o f venous thromboembolism [facility] Start: 01-21-2024 Continuous pulse oximetry [facility] Start: 01-21-2024 Elevation of head of bed [facility] Start: 01-21-2024 Insertion of cathete r into peripheral vein [facility] Start: 01-21-2024 Measuring intake and output [facility] Start: 01-21-2024 Oxygen therapy [facility] Start: 01-21-2024 Patient referral to dietitian [facility] Start: 01-21-2024 Providing care accor ding to standard [facility] Start: 01-21-2024 Provision of activit y privileges [facility] Start: 01-21-2024 Referral to occupati onal therapist [facility] Start: 01-21-2024 Referral to service [facility] Start: 01-21-2024 Removal of urinary catheter [facility] Start: 01-21-2024 Vital signs measurements [facility] Start: 01-17-2024 [facility] Start: 01-16-2024 [facility] Start: 01-14-2024 Notification of physician [facility] Start: 01-14-2024 Pulse taking [facility] Start: 01-14-2024 Taking patient vital signs [facility] Start: 01-14-2024 [facility] Start: 01-13-2024 Referral to wetlands conservation laborer [facility] Start: 01-11-2024 Consultation [facility] Start: 01-10-2024 Wound care [facility] Start: 01-09-2024 Referral to vascular surgeon [facility] Start: 01-09-2024 Referral to technical supervisor [facility] Start: 01-08-2024 Application of inter mittent pneumatic compression device [facility] Start: 01-08-2024 Following clinical p athway protocol [facility] Start: 01-08-2024 Assessment of risk o f venous thromboembolism [facility] Start: 01-08-2024 Consultation for treatment [facility] Start: 01-08-2024 Insertion of cathete r into peripheral vein [facility] Start: 01-08-2024 Providing care accor ding to [facility] Start: 01-08-2024 Provision of activit y privileges [facility] Start: 01-08-2024 Referral to service [facility] Start: 01-08-2024 [facility] Start: 01-08-2024 Verification routine [facility] Start: 01-08-2024 Admission procedure [facility] Start: 01-08-2024 Hospital admission, emergency, from emergency room, medical nature [facility] Start: 01-08-2024 End: 01-08-2024 Blood culture [facility] Start: 01-08-2024 Bacteria identified in Blood by Culture Blood Culture [facility] Start: 01-08-2024 Inhalation therapy procedure [facility] Aldosterone [Mass/vo lume] in Serum or Plasma [facility] Ankle brachial press ure index [facility] CT Chest [facility] Fungus identified in Unspecified specimen by Culture [facility] Fungus identified in Unspecified specimen by Fungus stain [facility] Liver stiffness by US.transient elastography [facility] Patient referral [facility] Work Phone: US Lower extremity artery [facility] Immunizations Immunization Date Immunization Notes Care Provider [facility] 10-15-2023 Influenza High-Dose Quadrivalent Carline Ashley WAITER/WAITRESS HEAD-C Work Phone: [facility] 10-15-2023 Pfizer Covid-19 (Comirnaty) Carline Ashley WAITER/WAITRESS HEAD-C Work Phone: [facility] 01-26-2021 SARS-CoV-2 mRNA (tozinameran) vaccine CARLINE ASHLEY PROVIDER NETWORK MANAGER - PHONOGRAPH MECHANIC [facility] Comment on above: Result Comment: 2020: [id number] 08-12-2018 influenza virus vaccine, unspecified formulation CARLINE ASHLEY PROVIDER NETWORK MANAGER - PHONOGRAPH MECHANIC [facility] 09-15-2006 influenza virus vaccine, unspecified formulation CARLINE ASHLEY PROVIDER NETWORK MANAGER - PHONOGRAPH MECHANIC [facility] 06-18-2006 tetanus and diphther ia toxoids, adsorbed, preservative free, for adult use (5 Lf of tetanus toxoid and 2 Lf of diphtheria toxoid) CARLINE ASHLEY PROVIDER NETWORK MANAGER - PHONOGRAPH MECHANIC [facility] Payers Date Payer Category Payer Self-pay [id number] 2024 Medicare [id number] 2023 Unknown [id number] 1957 Unknown [id number] 2.16.8 40.1.106758.3.579.2.627 1957 Unknown [id number] 2.16.8 40.1.511413.3.579.2.627 1957 Unknown [id number] 2.16.8 40.1.666991.3.579.2.627 Unknown [employer] [id number] Unknown [facility] [id number] Unknown [id number] 2.16.8 40.1.137109.3.579.2.462 Unknown [id number] 2.16.8 40.1.106232.3.579.2.462 Unknown [id number] 2.16.8 40.1.651586.3.579.2.462 Unknown [id number] 2.16.8 40.1.132910.3.579.2.462 Unknown [id number] 2.16.8 40.1.021823.3.579.2.462 Unknown [id number] 2.16.8 40.1.348556.3.579.2.462 Unknown [id number] 2.16.8 40.1.126471.3.579.2.462 Unknown [id number] 2.16.8 40.1.811115.3.579.2.462 Unknown [id number] 2.16.8 40.1.381553.3.579.2.462 Unknown [id number] 2.16.8 40.1.216605.3.579.2.462 Unknown [id number] 2.16.8 40.1.987210.3.579.2.462 Unknown [id number] 2.16.8 40.1.594019.3.579.2.462 Unknown [id number] 2.16.8 40.1.693370.3.579.2.462 Unknown [id number] 2.16.8 40.1.066810.3.579.2.462 Unknown [id number] 2.16.8 40.1.687672.3.579.2.462 Unknown [id number] 2.16.8 40.1.503334.3.579.2.462 Unknown [id number] 2.16.8 40.1.489199.3.579.2.462 Unknown [id number] 2.16.8 40.1.435087.3.579.2.462 Unknown [id number] 2.16.8 40.1.662552.3.579.2.462 Unknown [id number] 2.16.8 40.1.932622.3.579.2.462 Unknown [id number] 2.16.8 40.1.715261.3.579.2.462 Unknown [id number] 2.16.8 40.1.768167.3.579.2.462 Unknown [id number] 2.16.8 40.1.256253.3.579.2.462 Unknown [id number] 2.16.8 40.1.758302.3.579.2.462 Unknown [id number] 2.16.8 40.1.983408.3.579.2.462 Unknown [id number] 2.16.8 40.1.563364.3.579.2.462 Unknown [id number] 2.16.8 40.1.066362.3.579.2.462 Unknown [id number] 2.16.8 40.1.917444.3.579.2.462 Unknown [id number] 2.16.8 40.1.487550.3.579.2.462 Unknown [id number] 2.16.8 40.1.475617.3.579.2.462 Unknown [id number] 2.16.8 40.1.177914.3.579.2.462 Unknown [id number] 2.16.8 40.1.429916.3.579.2.462 Unknown [id number] 2.16.8 40.1.018866.3.579.2.462 Unknown [id number] 2.16.8 40.1.434791.3.579.2.462 Unknown [id number] 2.16.8 40.1.809106.3.579.2.462 Unknown [id number] 2.16.8 40.1.527783.3.579.2.462 Unknown [id number] 2.16.8 40.1.210328.3.579.2.462 Unknown [id number] 2.16.8 40.1.907731.3.579.2.462 Unknown [id number] 2.16.8 40.1.493439.3.579.2.462 Unknown [id number] 2.16.8 40.1.063924.3.579.2.462 Unknown [id number] 2.16.8 40.1.921714.3.579.2.462 Unknown [id number] 2.16.8 40.1.575148.3.579.2.462 Unknown [id number] 2.16.8 40.1.178038.3.579.2.462 Unknown [id number] 2.16.8 40.1.522229.3.579.2.462 Unknown [id number] 2.16.8 40.1.800196.3.579.2.462 Unknown [id number] 2.16.8 40.1.286257.3.579.2.462 Unknown [id number] 2.16.8 40.1.065403.3.579.2.462 Unknown [id number] 2.16.8 40.1.571080.3.579.2.462 Unknown [id number] 2.16.8 40.1.955231.3.579.2.462 Unknown [id number] 2.16.8 40.1.294334.3.579.2.462 Unknown [id number] 2.16.8 40.1.585894.3.579.2.462 Unknown [id number] 2.16.8 40.1.897715.3.579.2.462 Unknown [id number] 2.16.8 40.1.723386.3.579.2.462 Unknown [id number] 2.16.8 40.1.409122.3.579.2.462 Unknown [id number] 2.16.8 40.1.215781.3.579.2.462 Unknown [id number] 2.16.8 40.1.443796.3.579.2.462 Unknown [id number] 2.16.8 40.1.578555.3.579.2.462 Unknown [id number] 2.16.8 40.1.438795.3.579.2.462 Unknown [id number] 2.16.8 40.1.314085.3.579.2.462 Unknown [id number] 2.16.8 40.1.966875.3.579.2.462 Unknown [id number] 2.16.8 40.1.502186.3.579.2.462 Unknown [id number] 2.16.8 40.1.814117.3.579.2.462 Unknown [id number] 2.16.8 40.1.683718.3.579.2.462 Unknown [id number] 2.16.8 40.1.140937.3.579.2.462 Unknown [id number] 2.16.8 40.1.628991.3.579.2.462 Unknown [id number] 2.16.8 40.1.201496.3.579.2.462 Unknown [id number] 2.16.8 [id number] Unknown [id number] 2.16.8 [id number] Unknown [id number] 2.16.8 [id number] Unknown [id number] 2.16.8 [id number] Unknown [id number] 2.16.8 [id number] Unknown [id number] 2.16.8 [id number] Social History Date Type Detail Facility Start: 05-03-2020 End: 03-17-2024 Tobacco smoking status GAIS Unknown if ever smoked [facility] Start: 09-01-2018 Cigarettes [facility] Start: 1955 Sex Assigned At Female [facility] Start: 10-09-2023 Tobacco smoking status Ex-smoker (finding) [facility] Start: 01-04-2025 End: 02-15-2025 Tobacco smoking status NHIS Smokes tobacco daily (finding) [facility] Start: 02-05-2025 End: 03-01-2025 Sex Female (finding) [facility] Start: 04-12-2025 Tobacco smoking status NHIS Current some day smoker [facility] NEGATED: Highlighted row [facility] NEGATED: Highlighted row Not [facility] Medical Equipment Procedure Code Equipment Code Equipment Origin al Text Equipment Identifier Dates Femoral-femoral crossover arteriogram CRYOLIFE, FEMORAL-POPLITEAL ARTERY FDA Start: 01-21-2024 Femoral-femoral crossover arteriogram Ligation clip, metallic [id number] FDA Start: 01-21-2024 Femoral-femoral crossover arteriogram Ligation clip, metallic ()[id number] FDA Start: 01-21-2024 Femoral-femoral crossover arteriogram Ligation clip, metallic ()[id number] FDA Start: 01-21-2024 Femoral-femoral crossover arteriogram Ligation clip, metallic ()[id number] FDA Start: 01-21-2024 Femoral-femoral crossover arteriogram CRYOLIFE, FEMORAL-POPLITEAL ARTERY FDA Start: 01-21-2024 Femoral-femoral crossover arteriogram CRYOLIFE, FEMORAL-POPLITEAL ARTERY FDA Start: 01-21-2024 Femoral-femoral crossover arteriogram CRYOLIFE, FEMORAL-POPLITEAL ARTERY FDA Start: 01-21-2024 Femoral-femoral crossover arteriogram CRYOLIFE, FEMORAL-POPLITEAL ARTERY FDA Start: 01-21-2024 Femoral-femoral crossover arteriogram CRYOLIFE, FEMORAL-POPLITEAL ARTERY FDA Start: 01-21-2024 Femoral-femoral crossover arteriogram CRYOLIFE, FEMORAL-POPLITEAL ARTERY FDA Start: 01-21-2024 Femoral-femoral crossover arteriogram CRYOLIFE, FEMORAL-POPLITEAL ARTERY FDA Start: 01-21-2024 Femoral-femoral crossover arteriogram CRYOLIFE, FEMORAL-POPLITEAL ARTERY FDA Start: 01-21-2024 Femoral-femoral crossover arteriogram CRYOLIFE, FEMORAL-POPLITEAL ARTERY FDA Start: 01-21-2024 Femoral-femoral crossover arteriogram CRYOLIFE, FEMORAL-POPLITEAL ARTERY FDA Start: 01-21-2024 Femoral-femoral crossover arteriogram CRYOLIFE, FEMORAL-POPLITEAL ARTERY FDA Start: 01-21-2024 Femoral-femoral crossover arteriogram CRYOLIFE, FEMORAL-POPLITEAL ARTERY FDA Start: 01-21-2024 Femoral-femoral crossover arteriogram CRYOLIFE, FEMORAL-POPLITEAL ARTERY FDA Start: 01-21-2024 Debridement, wound AXIOFILL, 250MG FDA S tart: 01-13-2024 Debridement, wound AXIOFILL, 250MG FDA S tart: 01-13-2024 Debridement, wound AXIOFILL, 250MG FDA S tart: 01-13-2024 Debridement, wound AXIOFILL, 250MG FDA S tart: 01-13-2024 Debridement, wound AXIOFILL, 250MG FDA S tart: 01-13-2024 Debridement, wound AXIOFILL, 250MG FDA S tart: 01-13-2024 Debridement, wound AXIOFILL, 250MG FDA S tart: 01-13-2024 Debridement, wound AXIOFILL, 250MG FDA S tart: 01-13-2024 Debridement, wound AXIOFILL, 250MG FDA S tart: 01-13-2024 Debridement, wound AXIOFILL, 250MG FDA S tart: 01-13-2024 Debridement, wound AXIOFILL, 250MG FDA S tart: 01-13-2024 Debridement, wound AXIOFILL, 250MG FDA S tart: 01-13-2024 Debridement, wound AXIOFILL, 250MG FDA S tart: 01-13-2024 Debridement, wound AXIOFILL, 250MG FDA S tart: 01-13-2024 Debridement, wound AXIOFILL, 250MG FDA S tart: 01-13-2024 Goals Date Patient Goal Desired Activity /State Functional Status Date Assessment Result Facility 01-22-2024 Functional status Ambulates;Bedside Commo de [facility] Work Phone: Mental Status Date Assessment Result Facility 01-04-2025 Cognitive function Voice/Name [facility] Work Phone: 07-28-2024 Cognitive function Awake;Alert;A ppropriate;Foll ows Commands [facility] Work Phone: 07-21-2024 Cognitive function Arousable To Voice/Nam e [facility] Work Phone: 01-22-2024 Cognitive function Voice/Name [facility] Work Phone: Clinical Notes 01-08-2024 to 02-24-2025 Note Date & Type Note Facility 02-24-2025 Radiology Diagnostic study note [facility] Imaging Services [address] [place], [place] [address] ABD Limited w/ Elastography MR#: [id number] Acct: [id number] Name: BRENDA MACEDO Rep #: [id number] : 1955 F 69 From: Chica Cain MD PCP: CURTIS CoronaC Status: REG CLI Study:ABD Limited w/ Elastography Date of Exa m: 02/24/25 Exam# [id number] Ordering Dr: Tamar Lacey PROCEDURE: ULTRASOUND ABDOMEN LIMITED WITH ELASTOGRAPHY REASON FOR EXAM: ESOPHAGEAL VARICES COMPARISON: NO RELEVANT PRIOR. TECHNIQUE: Right upper quadrant abdominal ultrasound along with shear wave elastography fornon-invasive assessment of liver tissue stiffness. FINDINGS: LIVER: Size: Normal. Length: 15.4 cm Echotexture: Hyperechoic. Homogeneous texture. Contour: Normal. Lesions: None identified. Blood flow: Hepatopetal. Elastography: EQI Med: 14.97 kPa EQI Med Augusto: 2.21 m/s GALLBLADDER: No gallstones. No pericholecystic fluid. No wall thickening. COMMON BILE DUCT: 0.6 cm in diameter. PANCREAS: Unremarkable. Right kidney: Size measures 10.7 X 4.8 X 5.1 cm. Cortex measures 1.4 cm. US/ABD Limited w/ Elastography IMPRESSION: 1. 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 2. STEATOSIS. Reference Values: SRU <1.37 m/s (5.7kPa): No to mild fibrosis 1.37 m/s - 2.2 m/s: Moderate to severe fibrosis >2.2 m/s (15kPa): Significant fibrosis / cirrhosis METAVIR Score F2 or higher: 1.34 m/s (5.7kPa) F3 or higher: 1.55 m/s (7.3kPa) F4: 1.80 m/s (10kPa) Reading Location: [place] [address] CC: ANN MARIE Ashley; MAO Byrd ~ Construction Engineer: Signed [facility] 01-04-2025 Evaluation note Diagnosis Onset Date Resolution Anemia acute January 04, 2025 7:03am Gastric ulcer acute January 042024 7:03am COPD (chronic obstructive pulmonary disease) chronic January 11 025 10:31am Nicotine dependence, cigarettes, uncomplicated chronic January 11 025 10:31am Anemia acute February 15 8:17am Esophageal varices acute February 15, 2025 8:17am Gastric ulcer acute February 15, 2025 8:17am [facility] Work Phone: 1(923) 991-197702-19-2025 Evaluation note* Diagnosis Onset Date Resolution Status Admit Date Anemia acute January 04, 2025 7:03am Gastric ulcer acute January 042024 7:03am COPD (chronic obstructive pulmonary disease) chronic December 10:31am Nicotine dependence, cigarettes, uncomplicated chronic Februa 2024 10:31am Anemia acute February 15 8:17am Esophageal varices acute February 15, 2025 8:17am Gastric ulcer acute February 15, 2025 8:17am Iron (Fe) deficiency anemia resolved February 21, 2025 12:57pm [facility] Work Phone: 1(976) 720-910602-19-2025 Evaluation note* Diagnosis Onset Date Resolution Status Admit Date Anemia acute January 04, 2025 7:03am Gastric ulcer acute January 042024 7:03am COPD (chronic obstructive pulmonary disease) chronic December 10:31am Nicotine dependence, cigarettes, uncomplicated chronic Februa 2024 10:31am Anemia acute February 15 8:17am Esophageal varices acute February 15, 2025 8:17am Gastric ulcer acute February 15, 2025 8:17am Iron (Fe) deficiency anemia resolved February 21, 2025 12:57pm Hypoxemia acute March 10 10:05am COPD (chronic obstructive pulmonary disease) chronic March 10, 2 025 10:05am Nicotine dependence, cigarettes, uncomplicated chronic March 10, 2025 10:05am [facility] Work Phone: 1(106) 231-574102-19-2025 [facility]12-05-2024 Evaluation note* Diagnosis Onset Date Resolution Status Admit Date Anemia acute October 20, 2024 10:11am Gastric ulcer acute October 10:11am Anemia acute January 04, 2025 7:03am Gastric ulcer acute January 042024 7:03am COPD (chronic obstructive pulmonary disease) chronic December 10:31am Nicotine dependence, cigarettes, uncomplicated chronic Februa 2024 10:31am [facility] Work Phone: 1(527) 239-455310-28-2024 [facility]07-15-2024 [facility]07-11-2024 [facility] 05-20-2024 [facility]06-25-2024 [facility]04-03-2024 Progress note Author Momo Camacho [facility] February 17, 2024 1:24pm Note Date/Time February 17, 2024 1:24 pm [facility] [address] [place] [address] Progress Note - Wound Care 02/17/24 1322 MR#: [id number] Acct: [id number] Name: BRENDA MACEDO Rep #:[id number] : 1955 68 From: Momo KING PCP: Carline Ashley, ANN MARIE Sta tus:REG RCR Location: History of Present Illness Date of Service: 02/17/24 Chief Complaint: Wet gangrene status post incision bone cortex right foot fourthdigit History of Wound: Wet gangrene status post incision bone cortex right foot fourth digit Subjective Subjective Mrs. 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 Patient had undergone intervention by Dr. Frost and has been improving well to the bilateral lower extremity. She admits to smoking but trying to quit. Patient is nondiabetic. She denies any open lesions or abrasions. Denies trauma. Denies constitutional symptoms. No other pedal complaints at this time. Objective Data Objective Data Vital Signs: Vital Signs Temp Pulse Resp BP 97.6 F L 100 18 138/75 H 02/17/24 13:07 02/17/24 13:07 02/17/24 13:07 02/17/24 13:07 Weight: 77.111 kg Body Mass Index (BMI) 32.1 Physical Exam Narrative Vascular: DP and PT pulses are palpable to left lower extremity. Nonpitting edema appreciated to left lower extremity. Skin temperature gradient is warm towarm from proximal ankle to distal digits bilateral. No evidence of erythema orproximal streaking. Neurological: Light touch and epicritic station is intact. Dermatological: Incision is well coapted to the level of the amputated fourth digit with no evidence of surgical wound dehiscence, erythema or proximal streaking. No sign of infection. Webspaces 1 through 4 are clean dry and intact bilateral. Musculoskeletal: Muscle strength is 5 out of 5 in all quadrants bilateral. Mildpalpatory tenderness appreciated to the incision of the left foot. No pain withcalf compression. Debridement Note Debridement Note Post-Debridement Measurements and Additional Note: Post-Debridement Measurements/Treatment JEAN - Nurse 1 - General Ulcer Assessment Start: 02/17/24 13:07 Freq: Status: Active Protocol: OREN Activity Type Activity Date Activity User E-sign Co-sign Detail Recorded Client Recorded Date Recorded By Document 02/17/24 13:07 RB [employer] 02/17/24 13:13 RB 02/17/24 13:07 WC - Today's Visit Information Type of service Follow-up Visit (Physician/PHONOGRAPH MECHANIC ) Arrival Mode Ambulatory, Walker Transfer Assistance None Patient Identification Verified (Name & Yes ) Patient Requires Transmission-Based No Precautions Height and Weight Body Mass Index (BMI) 32.1 BMI Classification Obese Vital Signs Temperature (97.8 F-99.1 F) 97.6 F L Temperature Source Temporal Pulse Rate (60-100) 100 Pulse Location Monitor Respiratory Rate (12-18) 18 Respiratory rate source Observation Blood Pressure (90/60-120/80) 138/75 H Blood Pressure Mean (mm Hg) 96 Source Monitor Position Sitting Blood Pressure Location Left Arm History Since Last Visit- (Skip if this is Patient's initial visit) Have you changed medications since your No last visit? Any new allergies or adverse reactions No Had a fall/change in ADL's that may No increase risk of falls Signs or symptoms of abuse and/or No neglect since last visit Have you been in the hospital since your No last visit? Has dressing in place as prescribed Yes Has compression in place as prescribed Yes Has offloadiing in place as prescribed Yes Experienced any changes in pain level or No management Left Footwear Surgical Shoe with pressure relief insole Right Footwear Surgical Shoe with pressure relief insole Pain Scale: 0-10 Numeric Is Patient Pain Free? Yes JEAN Duran Nurse 1 - General Ulcer Measurement Start: 02/17/24 13:07 Freq: Status: Active Protocol: Activity Type Activity Date Activity User E-sign Co-sign Detail Recorded Client Recorded Date Recorded By Document 02/17/24 13:07 RB [employer] 04/03/24 13:13 RB 02/17/24 13:07 Wound Center Nurse 1 #1 LT 4TH TOE AMP SITE -Combined with other wound No -Current Size (cm) - Length 0.1 -Current Size (cm) - Width 0.1 -Current Size (cm) - Depth 0.1 -Total Square Cm 0.01 -Photo Taken Yes -Epithelialization Large 67-100% -Tunneling No -Undermining/Tunneling No -Circular Undermining No -Exudate Amt None Present -Granulation Amt Large (67-100%) -Granulation Quality Kendrick -Slough/Fibrin No -Structure Exposed N/A -Texture (Fabiana-wound Skin Appearance) Assessed -Moisture (Fabiana-wound Skin Appearance) Assessed,Dry/ Scaly -Color (Fabiana-wound Skin Appearance) Assessed -Temperature (Fabiana-wound Skin No Abnormality Appearance) (Pt Warm) -Tenderness on Palpation (Fabiana-wound No Skin Appearance) -Ulcer Cleansing Wound Cleanser -Foul Odor after Cleansing No Lower Limb Edema Present Yes Left Calf (cm) 38.2 Left Ankle (cm) 22 Assessment/Plan Assessment/Plan (1) 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 All findings were discussed with the patient. All questions were answered to the patient's satisfaction. Patient's incision to the left foot is healed. There is no evidence of surgicalwound dehiscence or infection. Patient can wear regular shoes and socks as tolerated. She will follow-up in private office with Dr. Camacho in 1 month. She left the office pleased to visit. Follow-up in private office with Dr. Camacho in 1 month. (2) Peripheral arterial occlusive disease: CODE(S): I77.9 - Disorder of arteries and arterioles, unspecified 02/17/24 1324 <Electronically signed by Momo Camacho DPM> Cosigner Signature (if applicable): CC: ~ Signed [facility] Work Phone: 1(582) 102-929003-20-2024 Progress note Author Momo Camacho [facility] February 03, 2024 1:29pm Note Date/Time February 03, 2024 1:2 9pm [facility] [address] [place] [address] Progress Note - Wound Care 02/03/24 1325 MR#: [id number] Acct: [id number] Name: BRENDA MACEDO Rep #:[id number] : 1955 68 From: Momo KING PCP: ANN MARIE Corona Sta tus:REG RCR Location: History of Present Illness Date of Service: 02/03/24 Chief Complaint: Wet gangrene status post incision bone cortex right foot fourthdigit History of Wound: Wet gangrene status post incision bone cortex right foot fourth digit Progress of Wound: Patient underwent surgical intervention by Dr. Camacho consisting of incision bone cortex with delayed primary closure, date of surgery 01/05/2024. Patient was seen in the hospital in consultation by medicine, infectious disease and vascular surgery. Patient has undergone intervention by Dr. Frost of vascular surgery and is improving well with no complaints to her bilateral lower extremities. Patient currently denies any pain to the left foot. She does admit to mild smoking after discharge. Patient is not diabetic. She denies anyopen lesions or abrasions. Denies trauma. Denies constitutional symptoms. No other pedal complaints at this time. Subjective Subjective Mrs. 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 Patient had undergone intervention by Dr. Frost and has been improving well to the bilateral lower extremity. She presents today for suture removal. She admits to not smoking. Patient is nondiabetic. She denies any open lesions or abrasions. Denies trauma. Denies constitutional symptoms. No other pedal complaints at this time. Objective Data Objective Data Vital Signs: Vital Signs Temp Pulse Resp BP O2 Del Method 97.7 F L 137 H 18 143/76 H Room Air 01/27/24 10:00 02/03/24 11:34 02/03/24 11:34 02/03/24 11:34 02/03/24 11:34 Oxygen Delivery Method Room Air Weight: 77.111 kg Body Mass Index (BMI) 32.1 Physical Exam Narrative Vascular: DP and PT pulses are palpable to left lower extremity. Nonpitting edema appreciated to left lower extremity. Skin temperature gradient is warm towarm from proximal ankle to distal digits bilateral. No evidence of erythema orproximal streaking. Neurological: Light touch and epicritic station is intact. Dermatological: Evidence of well coapted incision to the level of the amputated fourth digit with no evidence of surgical wound dehiscence, erythema or proximalstreaking. No sign of infection. Webspaces 1 through 4 are clean dry and intact bilateral. Musculoskeletal: Muscle strength is 5 out of 5 in all quadrants bilateral. Mildpalpatory tenderness appreciated to the incision of the left foot. No pain withcalf compression. Debridement Note Debridement Note Post-Debridement Measurements and Additional Note: Post-Debridement Measurements/Treatment - Nurse 1 - General Ulcer Assessment Start: 01/27/24 09:59 Freq: Status: Active Protocol: OREN Activity Type Activity Date Activity User E-sign Co-sign Detail Recorded Client Recorded Date Recorded By Document 01/27/24 10:00 KW Desktop 01/27/24 10:14 KW Document 02/03/24 11:34 KW Desktop 02/03/24 11:46 KW 01/27/24 02/03/24 10:00 11:34 - Today's Visit Information Type of service Initial Visit Follow-up Visit (Physician/PHONOGRAPH MECHANIC ) Arrival Mode Ambulatory, Ambulatory, Walker Walker Accompanied by Ange- sister sister ange Patient Identification Verified (Name & Yes Yes ) Height and Weight Height 5 ft 1 in Weight 77.111 kg Weight in Pounds 170.0 lbs Weight Measurement Method Estimated by Patient Body Mass Index (BMI) 32.1 32.1 BMI Classification Obese Obese BSA - Lena 1.76 Vital Signs Temperature (97.8 F-99.1 F) 97.7 F L Temperature Source Temporal Pulse Rate (60-100) 134 H 137 H Pulse Location Monitor Monitor Respiratory Rate (12-18) 18 18 Respiratory rate source Observation Observation Oxygen Delivery Method Room Air Room Air Blood Pressure (90/60-120/80) 146/79 H 143/76 H Blood Pressure Mean (mm Hg) 101 98 Source Monitor Monitor Position Semi-Fowlers Semi-Fowlers Blood Pressure Location Left Arm Left Arm History Since Last Visit- (Skip if this is Patient's initial visit) Have you changed medications since your No last visit? Any new allergies or adverse reactions No Had a fall/change in ADL's that may No increase risk of falls Signs or symptoms of abuse and/or No neglect since last visit Have you been in the hospital since your No last visit? Has dressing in place as prescribed Yes Has compression in place as prescribed Yes Has offloadiing in place as prescribed Yes Experienced any changes in pain level or No management Left Footwear Surgical Shoe Surgical Shoe with pressure with pressure relief insole relief insole Right Footwear Surgical Shoe Surgical Shoe with pressure with pressure relief insole relief insole Pain Scale: 0-10 Numeric Is Patient Pain Free? Yes Yes Communication Assessment Preferred language Spanish Rn Circulating Required No Able to Read Yes Able to Write Yes Communication Tools None Caregiver Communication Skills No Impairment Impairment Right Hearing Abillity Normal Left Hearing Abillity Normal Visual Assistive Devices None Teaching Assessment Preferences Written, Demonstration Barriers to Learning None Readiness To Learn Excellent Willingness to Engage in Self Management High Activies Readiness to Engage in Self Management High Activities Anxiety Level Calm Cooperation Cooperative Perception Coherent Interest in Health Problem Asks Questions Education Importance Acknowledges Need Does Patient Smoke tobacco or other Yes substances Smoking Status Light Smoker (< 10/day) Is Patient Diabetic Yes Functional Assessment Recent Decline in Ability to Perform Denies Any Declines Culture/Bahai/Casting Machine Adjuster Cultural/Bahai Needs that may affect No Treatment Plan Would you allow our hospital crane service technician to No meet you for the purpose of spiritual/ emotional support? Casting Machine Adjuster to contact place of orthodox No WC - Nurse 1 - General Ulcer Measurement Start: 01/27/24 09:59 Freq: Status: Active Protocol: Activity Type Activity Date Activity User E-sign Co-sign Detail Recorded Client Recorded Date Recorded By Document 01/27/24 10:00 Mobile[employer]op 01/27/24 10:14 KW Document 02/03/24 11:34 [employer] 02/03/24 11:46 KW 01/27/24 02/03/24 10:00 11:34 Wound Center Nurse 1 #1 LT 4TH TOE AMP SITE -Current Size (cm) - Length 0.1 -Current Size (cm) - Width 0.1 -Current Size (cm) - Depth 0.1 -Total Square Cm 0.01 -Date of Last Picture (Recall this 01/27/24 field) -Photo Taken Yes -Exudate Amt None Present -Texture (Fabiana-wound Skin Appearance) Assessed -Moisture (Fabiana-wound Skin Appearance) Assessed,Dry/ Scaly -Color (Fabiana-wound Skin Appearance) Assessed -Ulcer Cleansing Rinsed/ Soap and Water Irrigated with Saline -Wound Comment(s) SUTURES INTACT no lidocaine used, sutures are intact Left Calf (cm) 34 37 Left Ankle (cm) 22 20.5 - Nurse 2 - General Ulcer CM Notes Start: 01/27/24 09:59 Freq: Status: Active Protocol: Activity Type Activity Date Activity User E-sign Co-sign Detail Recorded Client Recorded Date Recorded By Document 01/27/24 10:39 Laptop 01/27/24 10:40 Document 02/03/24 12:00 Laptop 02/03/24 12:03 01/27/24 02/03/24 10:39 12:00 Wound Center Nurse 2 #1 LT 4TH TOE AMP SITE -Correct Patient No No -Correct Side, Site, Position No No -Correct Procedure No No -Procedure Performed No No -Post Debridement (cm) - Length 0.1 -Post Debridement (cm) - Width 0.1 -Post Debridement (cm) - Depth 0.1 -Total Square (Post) (cm) 0.01 -Area of Debridement (cm) - Length 0.1 -Area of Debridement (cm) - Width 0.1 -Total Square (Area) (cm) 0.01 -Wound/Ulcer Outcome Not Healed Not Healed -Offloading Yes -Type of Offloading Surgical Shoe -Debridement - Subq, 1st 20sq cm No Pain Scale: 0-10 Numeric Is Patient Pain Free? Yes Yes - Nurse 3 - General Ulcer D/C NN Start: 01/27/24 09:59 Freq: Status: Active Protocol: Activity Type Activity Date Activity User E-sign Co-sign Detail Recorded Client Recorded Date Recorded By Document 01/27/24 10:53 KW [employer] 01/27/24 10:54 KW Document 02/03/24 12:09 KW [employer] 02/03/24 12:11 KW 01/27/24 02/03/24 10:53 12:09 Wound Care Center Nurse 3 #1 LT 4TH TOE AMP SITE -Ulcer Cleansing Soap and Water -Foul Odor after Cleansing No -Primary Dressing Covered/Secured with Dry Gauze & Dry Gauze, Roll Gauze, Secured with Secured with Tape Tape Left -Lotion applied to leg before No compression wrap -Tubular Bandage Single Layer -Size of Tubigrip Used Size D Size E -Size D ($) 1 Pain Scale: 0-10 Numeric Is Patient Pain Free? 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 All findings were discussed with the patient. All questions were answered to the patient's satisfaction. The patient has been recovering well from her fourth digit left foot amputation. At this time the incision was dressed with Betadine paint and sutures were removed without incident. The sanguinous crust on the incision removed and showed no evidence of full-thickness wound with evidence of a minor abrasion measuring 0.1 x 0.1 x 0.1 cm. Incision was covered with Steri-Strips and Betadine paint. The left lower extremity was dressed with gauze and a single-layer Tubigrip. Patient will be partial weightbearing in surgical shoe and educated the patient to continue to rest and elevate her left lower extremity until follow-up. Continued to discuss smoking sensation with the patient. She was understanding of this. Follow-up at the wound care center with Dr. Camacho in 2 week. (2) Peripheral arterial occlusive disease: CODE(S): I77.9 - Disorder of arteries and arterioles, unspecified 02/03/24 1329 <Electronically signed by Momo Camacho DPM> Cosigner Signature (if applicable): CC: ~ Signed [facility] Work Phone: 1(187) 560-104603-13-2024 History and physical note Author Momo Camacho [facility] January 27, 2024 12:06pm Note Date/Time January 27, 2024 12: 06pm [facility] [address] [place] [address] H&P Exam - Wound Care 01/27/24 1201 MR#: [id number] Acct: [id number] Name: BRENDA MACEDO Rep #:[id number] : 1955 68 From: Momo Roberts PM PCP: ANN MARIE Corona tus:REG RCR Location: History of Present Illness Date of Service: 01/27/24 Chief Complaint: Wet gangrene status post incision bone cortex right foot fourthdigit History of Wound: Wet gangrene status post incision bone cortex right foot fourth digit Progress of Wound: Patient underwent surgical intervention by Dr. Camacho consisting of incision bone cortex with delayed primary closure, date of surgery 01/05/2024. Patient was seen in the hospital in consultation by medicine, infectious disease and vascular surgery. Patient has undergone intervention by Dr. Frost of vascular surgery and is improving well with no complaints to her bilateral lower extremities. Patient currently denies any pain to the left foot. She does admit to mild smoking after discharge. Patient is not diabetic. She denies anyopen lesions or abrasions. Denies trauma. Denies constitutional symptoms. No other pedal complaints at this time. [facility] Medical History Arthritis Carotid stenosis, bilateral Cervical cancer Peripheral arterial occlusive disease PVD (peripheral vascular disease) Tobacco abuse Home Medications acetaminophen 650 mg tablet,extended release (Tylenol Arthritis Pain) 650 mg PO Q6H PRN Pain 06/25/18 [History Last Taken Unknown] albuterol sulfate 90 mcg/actuation aerosol inhaler 2 puff inhalation Q6H PRN shortness of breath or wheezing 01/08/24 [History Last Taken Unknown] amlodipine 5 mg tablet 5 mg PO DAILY 01/08/24 [History Last Taken Unknown] aspirin 81 mg tablet,delayed release 81 mg PO DAILY 01/08/24 [History Last Taken Unknown] budesonide-formoterol HFA 160 mcg-4.5 mcg/actuation aerosol inhaler 2 puff inhalation BID 01/08/24 [History Last Taken Unknown] cilostazol 50 mg tablet 50 mg PO DAILY 01/08/24 [History Last Taken Unknown] clopidogrel 75 mg tablet 75 mg PO DAILY 01/08/24 [History Last Taken Unknown] rosuvastatin 10 mg tablet 10 mg PO DAILY 01/08/24 [History Last Taken Unknown] rivaroxaban 2.5 mg tablet (Xarelto) 2.5 mg PO BID #60 tabs 01/22/24 [Rx Last Taken Unknown] Allergy/AdvReac Type Severity Reaction Status Date / Time No Known Allergies Allergy Verified 01/08/24 13:35 Family History Mother Breast cancer Surgical History S/P LEFT ARTERIOGRAM Social History Smoking Status: Light Smoker (<10/day) alcohol intake: never Vital Signs Vital Signs Vital Signs: 01/27/24 10:00 Temperature 97.7 F L Temperature Source Temporal Pulse Rate 134 H Respiratory Rate 18 Blood Pressure 146/79 H Blood Pressure Mean 101 Blood Pressure Source Monitor Blood Pressure Position Semi-Fowlers Blood Pressure Location Left Arm Oxygen Delivery Method Room Air Weight Weight: 77.111 kg Body Mass Index (BMI) 32.1 Physical Exam Narrative Vascular: DP and PT pulses are palpable to left lower extremity. Nonpitting edema appreciated to left lower extremity. Skin temperature gradient is warm towarm from proximal ankle to distal digits bilateral. No evidence of erythema orproximal streaking. Neurological: Light touch and epicritic station is intact. Dermatological: Evidence of well coapted incision to the level of the amputated fourth digit with no evidence of surgical wound dehiscence, erythema or proximalstreaking. No sign of infection. Webspaces 1 through 4 are clean dry and intact bilateral. Musculoskeletal: Muscle strength is 5 out of 5 in all quadrants bilateral. Mildpalpatory tenderness appreciated to the incision of the left foot. No pain withcalf compression. Debridement Note Debridement Note Post-Debridement Measurements and Additional Note: Post-Debridement Measurements/Treatment - Nurse 1 - General Ulcer Assessment Start: 01/27/24 09:59 Freq: Status: Active Protocol: OREN Activity Type Activity Date Activity User E-sign Co-sign Detail Recorded Client Recorded Date Recorded By Document 01/27/24 10:00 KW Desktop 01/27/24 10:14 KW 01/27/24 10:00 - Today's Visit Information Type of service Initial Visit Arrival Mode Ambulatory, Walker Accompanied by Ange- sister Patient Identification Verified (Name & Yes ) Height and Weight Height 5 ft 1 in Weight 77.111 kg Weight in Pounds 170.0 lbs Weight Measurement Method Estimated by Patient Body Mass Index (BMI) 32.1 BMI Classification Obese BSA - Lena 1.76 Vital Signs Temperature (97.8 F-99.1 F) 97.7 F L Temperature Source Temporal Pulse Rate (60-100) 134 H Pulse Location Monitor Respiratory Rate (12-18) 18 Respiratory rate source Observation Oxygen Delivery Method Room Air Blood Pressure (90/60-120/80) 146/79 H Blood Pressure Mean 101 Source Monitor Position Semi-Fowlers Blood Pressure Location Left Arm History Since Last Visit- (Skip if this is Patient's initial visit) Left Footwear Surgical Shoe with pressure relief insole Right Footwear Surgical Shoe with pressure relief insole Pain Scale: 0-10 Numeric Is Patient Pain Free? Yes Communication Assessment Preferred language Spanish Rn Circulating Required No Able to Read Yes Able to Write Yes Communication Tools None Caregiver Communication Skills No Impairment Impairment Right Hearing Abillity Normal Left Hearing Abillity Normal Visual Assistive Devices None Teaching Assessment Preferences Written, Demonstration Barriers to Learning None Readiness To Learn Excellent Willingness to Engage in Self Management High Activies Readiness to Engage in Self Management High Activities Anxiety Level Calm Cooperation Cooperative Perception Coherent Interest in Health Problem Asks Questions Education Importance Acknowledges Need Does Patient Smoke tobacco or other Yes substances Smoking Status Light Smoker (< 10/day) Is Patient Diabetic Yes Functional Assessment Recent Decline in Ability to Perform Denies Any Declines Culture/Bahai/Casting Machine Adjuster Cultural/Bahai Needs that may affect No Treatment Plan Would you allow our hospital crane service technician to No meet you for the purpose of spiritual/ emotional support? Casting Machine Adjuster to contact place of orthodox No WC - Nurse 1 - General Ulcer Measurement Start: 01/27/24 09:59 Freq: Status: Active Protocol: Activity Type Activity Date Activity User E-sign Co-sign Detail Recorded Client Recorded Date Recorded By Document 01/27/24 10:00 KW Desktop 01/27/24 10:14 KW 01/27/24 10:00 Wound Center Nurse 1 #1 LT 4TH TOE AMP SITE -Current Size (cm) - Length 0.1 -Current Size (cm) - Width 0.1 -Current Size (cm) - Depth 0.1 -Total Square Cm 0.01 -Date of Last Picture (Recall this 01/27/24 field) -Photo Taken Yes -Exudate Amt None Present -Ulcer Cleansing Rinsed/ Irrigated with Saline -Wound Comment(s) SUTURES INTACT Left Calf (cm) 34 Left Ankle (cm) 22 - Nurse 2 - General Ulcer CM Notes Start: 01/27/24 09:59 Freq: Status: Active Protocol: Activity Type Activity Date Activity User E-sign Co-sign Detail Recorded Client Recorded Date Recorded By Document 01/27/24 10:39 Laptop 01/27/24 10:40 01/27/24 10:39 Wound Center Nurse 2 #1 LT 4TH TOE AMP SITE -Correct Patient No -Correct Side, Site, Position No -Correct Procedure No -Procedure Performed No -Wound/Ulcer Outcome Not Healed -Offloading Yes -Type of Offloading Surgical Shoe -Debridement - Subq, 1st 20sq cm No Pain Scale: 0-10 Numeric Is Patient Pain Free? Yes - Nurse 3 - General Ulcer D/C NN Start: 01/27/24 09:59 Freq: Status: Active Protocol: Activity Type Activity Date Activity User E-sign Co-sign Detail Recorded Client Recorded Date Recorded By Document 01/27/24 10:53 KW Desktop 01/27/24 10:54 KW 01/27/24 10:53 Wound Care Center Nurse 3 #1 LT 4TH TOE AMP SITE -Primary Dressing Covered/Secured with Dry Gauze & Roll Gauze, Secured with Tape Left -Tubular Bandage Single Layer -Size of Tubigrip Used Size D -Size D ($) 1 Pain Scale: 0-10 Numeric Is Patient Pain Free? Yes - Visit Discharge Discharge Condition Stable Ambulatory Status Ambulatory, Walker Transportation Private Auto Medication Reconcilliation completed & No provided to patient/care provider Clinical Summary of Care Provided Yes Assessment/Plan Assessment/Plan (1) Osteomyelitis: CODE(S): M86.9 - Osteomyelitis, unspecified QUALIFIERS: Osteomyelitis type: unspecified type Osteomyelitis location: foot Laterality: left Qualified Code(s): M86.9 - Osteomyelitis, unspecified PLAN: Patient was examined and evaluated. All findings were discussed with the patient. All questions were answered to the patient's satisfaction. Patient's incision is well coapted no sign of surgical wound dehiscence or infection. Patient is recovering well from a podiatric standpoint as well as from vascular intervention. There is no need to push forward for authorization for hyperbaric oxygen treatment. Patient should make an uneventful recovery from her surgery to the left foot. The incision was dressed with Betadine followed by dry sterile dressing and a single-layer Tubigrip to left lower extremity. Patient is to be weightbearing as tolerated with surgical shoe to the left foot. Educated the patient about smoking cessation which she was understanding of. Plan for suture removal next week. Follow-up at the wound care center with Dr. Camacho in 1 week. (2) Gangrene: CODE(S): I96 - Gangrene, not elsewhere classified (3) Atherosclerosis of tlingit & ha[place] arteries of extremities with gangrene, left leg: CODE(S): I70.262 - Atherosclerosis of tlingit & ha[place] arteries of extremities with gangrene, left leg 01/27/24 1206 <Electronically signed by Momo Camacho DPM> Cosigner Signature (if applicable): CC: ~ Signed [facility] Work Phone: 1(832) 516-361903-08-2024 Discharge summary Author Armani Moses [facility] January 22, 2024 11:08am Note Date/Time January 22, 2024 11:0 2am [facility] Medical Records Department [address] [place] [address] Instructions for Home/Discharge Instructions 01/22/24 1101 MR#: [id number] Acct: [id number] Name: BRENDA MACEDO Rep #:[id number] : 1955 68 From: Armani lyles DO PCP: ANN MARIE Corona tus:ADM IN Discharge Instructions Diet Discharge Diet: No restrictions Activity Discharge Activity: No Restrictions Weight Bearing Status: Full weight bearing Follow Up Care Test Results: Test results from this visit will be discussed in further detail at your follow- up appointment, if applicable. Discharge Plan Admission Admit Date/Time: 01/08/24 17:23 Primary Reason for Your Visit: left toe gangrene Attending Provider: Armani Moses Primary Care Provider: Carline Ashley NP Consulting Providers: Liz Murillo; Armani Moses; Selvin Barrera; Kevin Souza; Lynn Enriquez; Momo Camacho; Selvin Frost Instructions Additional Instructions / Restrictions: Continue all home medications as normal. Follow-up with the vascular surgery office as indicated by them. Follow-up with wound care as scheduled. Please have a repeat BMP drawn in 1 to 2 weeks and follow-up with your PCP to ensure that your kidney function is continuing to improve back to baseline. Discharge Orders/Prescriptions Prescriptions: Continued acetaminophen [Tylenol Arthritis Pain] 650 mg tablet extended release 650 mg PO Q6H PRN (Reason: Pain) amlodipine 5 mg tablet 5 mg PO DAILY aspirin 81 mg tablet,delayed release (DR/EC) 81 mg PO DAILY cilostazol 50 mg tablet 50 mg PO DAILY Rx Instructions: take before meals clopidogrel 75 mg tablet 75 mg PO DAILY rosuvastatin 10 mg tablet 10 mg PO DAILY albuterol sulfate 90 mcg/actuation HFA aerosol inhaler 2 puff INHALATION Q6H PRN (Reason: shortness of breath or wheezing) budesonide-formoterol 160-4.5 mcg/actuation HFA aerosol inhaler 2 puff INHALATION BID Referrals / Follow Up: Momo Camacho DPM [Med Staff - Active Staff] - (Patient will follow-up [address] Camacho at the wound care center Thursday. Please call forappointment date and time.) Carline Ashley WAITER/WAITRESS HEAD, WAITER/WAITRESS HEAD-C [Primary Care Provider] - Disposition Disposition (needs filled in before D/C Order can be placed): Home, Self Care 01/22/24 1108<Electronically signed by Armani Moses DO>Armani Moses DO CC: KATERYNA Camacho; WAITER/WAITRESS HEAD-C Carline Ashley; Dr. Armani Moses DO; Dr. Selvin Barrera DO; Dr. Selvin Frost MD; Dr. Lynn Enriquez MD; Dr. Liz Murillo MD; Dr. Kevin Souza MD ~ Signed [facility] Work Phone: 1(616) 500-964103-07-2024 Progress note Author Lynn Enriquez [facility] January 21, 2024 7:23pm Note Date/Time January 21, 2024 7:24 pm [facility] Medical Records Department [address] [place] [address] Progress Note - Nephrology 01/21/241922 MR#: [id number] Acct: [id number] Name: BRENDA MACEDO Rep #:[id number] : 1955 68 From: Lynn owen MD PCP: ANN MARIE Corona tus:ADM IN Location: ICU CVICU20 3-1 Subjective Subjective no new complaints Objective Data Objective Data Vital Signs: Vital Signs Temp Pulse Resp BP Pulse Ox O2 Del Method O2 Flow Rate 98.2 F 96 23 H 134/85 H 94 Nasal Cannula 2 01/21/24 17:00 01/21/24 18:00 01/21/24 18:00 01/21/24 18:00 01/21/24 18:00 01/21/24 18:00 01/21/24 18:00 Oxygen Flow Rate (L/min) 2 Oxygen Delivery Method Nasal Cannula Weight: 78 kg Body Mass Index (BMI) 31.4 Intake & Output: Intake and Output for Last 24 Hours 01/19/24 01/20/24 01/21/24 23:59 23:59 23:59 Intake Total 1000.0 / 1000.0 246.4 / 246.4 451.95 / 451.95 Output Total 750 / 750 Balance 1000.0 / 1000.0 246.4 / 246.4 -298.05 / -298.05 Lab / Micro Data 01/21/24 05:09 01/21/24 05:09 Labs: Laboratory Results - last 24 hr 01/21/24 05:09: WBC 8.3, RBC 3.26 L, Hgb 9.0 L, Hct 28.4 L, MCV 87.1, MCH 27.6, MCHC 31.7 L, RDW Std Deviation 45.6 H, RDW Coeff of Alfie 14.4, Plt Count 386, MPV10.1, APTT 71.6 H, Sodium 143, Potassium 3.5, Chloride 106, Carbon Dioxide 32.0,Anion Gap 5, BUN 12, Creatinine 1.72 H, Estim Creat Clear Calc 31.11, Est GFR (MDRD) Af Amer 38 L, Est GFR (MDRD) Non-Af 32 L, BUN/Creatinine Ratio 7.0 L, Glucose 99, Calcium 8.8 Micro: Microbiology 01/16/24 17:55 Stool Clostridioides difficile (PCR) - Final 01/10/24 10:07 Wound - Toe Gram Stain - Final 01/10/24 10:07 Wound - Toe Wound Culture - Final Raoultella planticola Staphylococcus auricularis 01/10/24 10:07 Wound - Toe Anaerobic Culture - Final No anaerobic bacteria isolated. 01/10/24 10:02 Wound - Toe Gram Stain - Final 01/10/24 10:02 Wound - Toe Wound Culture - Final Staphylococcus simulans Corynebacterium amycolatum/xer 01/10/24 10:02 Wound - Toe Anaerobic Culture - Final No anaerobic bacteria isolated. 01/08/24 15:50 Blood Culture (Wb) - Anticubital Right Blood Culture - Final No growth in 5 days. 01/08/24 15:35 Blood Culture (Wb) - Anticubital Left Blood Culture - Final No growth in 5 days. Physical Exam Narrative Alert awake oriented x 3 no obvious distress s1s2 no murmurs lungs clear abdomen soft no edema Assessment & Plan Assessment/Plan (1) MELLY (acute kidney injury): PLAN: Baseline creatinine was normal, close to baseline On admission. She has been on vancomycin and there was a trough which was elevated. Other medicationsreviewed. C3 normal likely ATN Renal ultrasound no hydro right kidney, mild hydro left kidney, bladder collapse, ureter collapsed, likely chronic She had a CTA earlier this month and it seems she did have mild left-sided hydronephrosis on review of those images as well. UA negative protein 25 occult blood, no leukocyte esterase.urine sodium 83. Creatinine is trending down. 01/21/241922 <Electronically signed by Lynn Enriquez MD> Cosigner Signature (if applicable): CC: ~ Signed [facility] Work Phone: 1(124) 178-109903-07-2024 Progress note Author Armani Moses [facility] January 21, 2024 5:44pm Note Date/Time January 21, 2024 2:56 pm [facility] Medical Records Department [address] [place] [address] Progress Note - Hospitalist 01/21/24 1456 MR#: [id number] Acct: [id number] Name: BRENDA MACEDO Rep #:[id number] : 1955 68 From: Armani lyles DO PCP: ANN MARIE Corona tus:ADM IN Location: ICU CVICU20 3-1 Reason for Visit Reason for Visit: Diagnoses 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 Patient seen at bedside later this afternoon as she was having her bypass procedure done this morning. Patient was sitting up comfortably in bed, conversing normally, no acute distress. She appeared completely recovered from any anesthesia, no somnolence noted. She denied any left leg pain at this time but had not gotten out of bed yet since the procedure. She had just eaten a light dinner and had no issues with this. No other acute concerns at this time. Objective Data Objective Data Vital Signs: Vital Signs Temp Pulse Resp BP Pulse Ox O2 Del Method O2 Flow Rate 97.3 F L 97 18 140/80 H 95 Nasal Cannula 4 01/21/24 12:00 01/21/24 13:30 01/21/24 13:30 01/21/24 13:30 01/21/24 13:30 01/21/24 13:30 01/21/24 13:30 Oxygen Flow Rate (L/min) 4 Oxygen Delivery Method Nasal Cannula Weight: 78 kg Body Mass Index (BMI) 31.4 Intake & Output: Intake and Output for Last 24 Hours 01/19/24 01/20/24 01/21/24 23:59 23:59 23:59 Intake Total 1000.0 / 1000.0 246.4 / 246.4 315.2 / 315.2 Output Total 450 / 450 Balance 1000.0 / 1000.0 246.4 / 246.4 -134.8 / -134.8 Lab / Micro Data 01/21/24 05:09 01/21/24 05:09 Labs: Laboratory Results - last 24 hr 01/20/24 15:54: Blood Type B POSITIVE, Antibody Screen NEGATIVE 01/21/24 05:09: WBC 8.3, RBC 3.26 L, Hgb 9.0 L, Hct 28.4 L, MCV 87.1, MCH 27.6, MCHC 31.7 L, RDW Std Deviation 45.6 H, RDW Coeff of Alfie 14.4, Plt Count 386, MPV10.1, APTT 71.6 H, Sodium 143, Potassium 3.5, Chloride 106, Carbon Dioxide 32.0,Anion Gap 5, BUN 12, Creatinine 1.72 H, Estim Creat Clear Calc 31.11, Est GFR (MDRD) Af Amer 38 L, Est GFR (MDRD) Non-Af 32 L, BUN/Creatinine Ratio 7.0 L, Glucose 99, Calcium 8.8 Micro: Microbiology 01/16/24 17:55 Stool Clostridioides difficile (PCR) - Final 01/10/24 10:07 Wound - Toe Gram Stain - Final 01/10/24 10:07 Wound - Toe Wound Culture - Final Raoultella planticola Staphylococcus auricularis 01/10/24 10:07 Wound - Toe Anaerobic Culture - Final No anaerobic bacteria isolated. 01/10/24 10:02 Wound - Toe Gram Stain - Final 01/10/24 10:02 Wound - Toe Wound Culture - Final Staphylococcus simulans Corynebacterium amycolatum/xer 01/10/24 10:02 Wound - Toe Anaerobic Culture - Final No anaerobic bacteria isolated. 01/08/24 15:50 Blood Culture (Wb) - Anticubital Right Blood Culture - Final No growth in 5 days. 01/08/24 15:35 Blood Culture (Wb) - Anticubital Left Blood Culture - Final No growth in 5 days. Physical Exam Const alert, oriented x3 and no apparent distress Constitutional Narrative: Elderly female, pleasant, sitting up comfortably in bed, conversing normally, noacute distress. General Appearance: cooperative and comfortable HEENT normocephalic, head/scalp atraumatic, hearing grossly normal bilaterally, nasal mucous membranes and turbinates normal and moist oral mucous membranes Eyes PERRL, EOMs intact bilaterally and conjunctivae normal Neck full ROM, no lymphadenopathy and supple Lymph Lymphatic: no lymphadenopathy noted Chest inspection of chest normal Resp normal respiratory effort, normal air movement, no use of accessory muscles and clear to auscultation bilaterally Resp Narrative: Breathing comfortably on 2 L nasal cannula. Cardio regular rate, regular rhythm, no murmurs and peripheral pulses 2+ throughout GI normal to inspection, nondistended, normoactive bowel sounds, soft to palpation,non-tender and non-distended Back/Spine normal ROM Extremity no pedal edema Extremity Narrative: Left lower extremity Roland wrap in place. Skin no rashes or lesions noted Neuro moves all extremities and no focal motor deficits Speech: speech normal Psych mental status grossly normal Assessment & Plan Assessment/Plan (1) MELLY (acute kidney injury): (2) Gangrene: (3) Peripheral arterial occlusive disease: PLAN: Plan Patient is a 68-year-old female who presented to [facility] ED on 01/08/2024 with a left fourth toe wound. 1. Left fourth toe gangrene ? Left fourth toe blackened urine is appearing on admission, had been that way for 1 to 2 weeks. ? Foot x-ray on admit within normal limits. ? I&D performed on 01/10 with podiatry, showed evidence of necrotic bone of fourth digit with malodor and scant purulent drainage. Fourth digit was removedat that time. S/p delayed closure and washout with podiatry on 01/13. ? Wound culture grew Staph simulans, another culture grew Raoultella planticola. ID following, treated with ceftriaxone and metronidazole while inpatient, completed course on 01/19. ? Vascular surgery following as below. ? Wound care following. ? PT/OT/case management following. Likely home with home health care on discharge. Patient should be medically ready for discharge in next 1 to 2 days. 2. Severe peripheral vascular disease of left lower extremity ? Chronic in-stent thrombosis of left common and external iliac arteries on imaging. ? Vascular surgery following. S/p angiography and thrombectomy on with incomplete clearance of subacute chronic thrombus. S/p right to left femoral tofemoral bypass procedure with Dr. Frost on 01/20. Patient tolerated procedure well, no immediate postoperative complications. ? Will continue heparin drip for now, defer to vascular surgery for recommendation on when to discontinue this. Continue home aspirin, statin and cilostazol. Continue to hold Plavix. ? Continue heparin drip for anticoagulation. Continue home aspirin, statin, cilostazol. Holding Plavix. 3. MELLY, improving ? Creatinine peaked at 2.55, with baseline 0.84. ? FeNa 5.64%. Ultrasound showed mild left-sided nephrosis. ? Nephrology following. Suspect ATN due to vancomycin versus underlying infection, versus possible GN. Patient notably did receive contrast after initial MELLY. ? Creatinine slowly improving, has had adequate urine output. Monitor BMP and urine output daily. Avoid nephrotoxins. 4. Acute on chronic anemia ? Hemoglobin 13.4 on admit, down trended to 11-12 with IV fluid administration, was at baseline. ? Hemoglobin has slowly down trended during hospitalization but generally stablearound 9. Suspect secondary to blood loss with procedures as well as blood draws during hospitalization. ? Monitor CBC daily. Chronic medical conditions: ? COPD: Not on home O2. Continue home inhalers. Incentive spirometry at bedside. ? Hypertension: Stable. Continue home amlodipine. ? Former tobacco user: Advised continued cessation. ? Obesity: BMI 31 on admit. Complicates hospital course, care and prognosis. DVT prophylaxis: Heparin drip CODE STATUS: Full code, verified Expected disposition: Home with [facility], 1-2 days Total clinical time spent by myself addressing the patient's medical issues, reviewing all the data, and collaborating with patient's care team: 25 minutes. Charges/Coding Visit Charges Inpatient E&M: 60305 [facility] Hosp L1 01/21/24 3100 <Electronically signed by Armani Moses DO> Cosigner Signature (if applicable): CC: ~ Signed [facility] Work Phone: 1(264) 943-393703-07-2024 Procedure [facility] 01-20-2024 Progress note Author Selvin Frost [facility] January 20, 2024 3:33pm Note Date/Time January 20, 2024 3:19 pm [facility] Medical Records Department [address] [place] [address] Progress Note - Surgery 01/20/24 1514 MR#: [id number] Acct: [id number] Name: BRENDA MACEDO Rep #:[id number] : 1955 68 From: Katie CAVANAUGH PCP: ANN MARIE Corona Sta tus:ADM IN Location: MS3 [id number] Subjective Subjective Patient was seen resting comfortably in bed. She reports she is feeling good andfeels ready for her procedure tomorrow. Hgb remains slowly downtrending but no acute changes. Her creatinine continues to improve. She reports minimal discomfort in her LLE at this time and L toe amputation siteis stable in appearance at this time. Objective Data Objective Data Vital Signs: Vital Signs Temp Pulse Resp BP Pulse Ox O2 Del Method O2 Flow Rate 98.5 F 96 18 135/86 H 98 Nasal Cannula 2 01/20/24 11:06 01/20/24 11:06 01/20/24 11:06 01/20/24 11:06 01/20/24 11:06 01/20/24 11:08 01/20/24 11:06 Oxygen Flow Rate (L/min) 2 Oxygen Delivery Method Nasal Cannula Weight: 171 lb 15.369 oz Body Mass Index (BMI) 31.4 Intake & Output: Intake and Output for Last 24 Hours 01/18/24 01/19/24 01/20/24 23:59 23:59 23:59 Intake Total 2460.7 / 2460.7 1000.0 / 1000.0 246.4 / 246.4 Balance 2460.7 / 2460.7 1000.0 / 1000.0 246.4 / 246.4 Lab / Micro Data 01/20/24 05:55 01/20/24 05:55 Labs: Laboratory Results - last 24 hr 01/20/24 05:55: WBC 8.4, RBC 3.22 L, Hgb 8.9 L, Hct 28.5 L, MCV 88.5, MCH 27.6, MCHC 31.2 L, RDW Std Deviation 46.7 H, RDW Coeff of Alfie 14.6, Plt Count 357, MPV10.7, APTT 62.7 H, Sodium 143, Potassium 3.7, Chloride 105, Carbon Dioxide 29.0,Anion Gap 9, BUN 14, Creatinine 1.76 H, Estim Creat Clear Calc 30.41, Est GFR (MDRD) Af Amer 37 L, Est GFR (MDRD) Non-Af 31 L, BUN/Creatinine Ratio 8.0 L, Glucose 92, Calcium 8.8 Micro: Microbiology 01/16/24 17:55 Stool Clostridioides difficile (PCR) - Final 01/10/24 10:07 Wound - Toe Gram Stain - Final 01/10/24 10:07 Wound - Toe Wound Culture - Final Raoultella planticola Staphylococcus auricularis 01/10/24 10:07 Wound - Toe Anaerobic Culture - Final No anaerobic bacteria isolated. 01/10/24 10:02 Wound - Toe Gram Stain - Final 01/10/24 10:02 Wound - Toe Wound Culture - Final Staphylococcus simulans Corynebacterium amycolatum/xer 01/10/24 10:02 Wound - Toe Anaerobic Culture - Final No anaerobic bacteria isolated. 01/08/24 15:50 Blood Culture (Wb) - Anticubital Right Blood Culture - Final No growth in 5 days. 01/08/24 15:35 Blood Culture (Wb) - Anticubital Left Blood Culture - Final No growth in 5 days. Physical Exam Const alert, oriented x3 and no apparent distress General Appearance: cooperative Exam Limitations: no limitations HEENT Head and Scalp: normocephalic and atraumatic Eyes EOMs intact bilaterally General Eye: normal appearance of both eyes Neck full ROM General: trachea midline Resp normal respiratory effort and no use of accessory muscles Effort and Inspection: Negative for labored, stridor or audible wheezes Cardio regular rate and regular rhythm Extremity full ROM Extremity Narrative: LLE postoperative dressings C/D/I Bilateral groin access sites with no focal swelling/hematoma. Skin no rashes or lesions noted Neuro oriented x3, CN's II-XII intact bilaterally, no focal motor deficits and no sensory deficits noted Psych thought process normal, cooperative, affect normal, speech normal and activity/motor behavior normal Assessment & Plan Assessment/Plan (1) Atherosclerosis of tlingit & haida arteries of extremities with gangrene, left leg: PLAN: She is scheduled for fem-fem bypass tomorrow morning. She remains agreeable to proceed. NPO after midnight. Continue ASA, no need to hold for surgery. 01/20/24 1519 <Electronically signed by Katie CAVANAUGH> Cosigner Signature (if applicable): 01/20/24 1533 <Electronically signed by Selvin Frost MD> CC: ~ Signed [facility] Work Phone: 1(582) 863-368003-06-2024 Progress note Author Armani Moses [facility] January 20, 2024 3:08pm Note Date/Time January 20, 2024 1:20 pm [facility] Medical Records Department [address] [place] [address] Progress Note - Hospitalist 01/20/24 1320 MR#: [id number] Acct: [id number] Name: BRENDA MACEDO Rep #:[id number] : 1955 68 From: Armani Ren lyles DO PCP: ANN MARIE Corona tus:ADM IN Location: MS3 [id number] Reason for Visit Reason for Visit: Diagnoses 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 Patient seen at bedside this morning. Sitting comfortably at edge of bed, was about to use commode with assistance of nursing staff when I saw her. She denied any acute pain or discomfort this morning. She was looking forward to having her procedure done tomorrow. No other acute concerns. Objective Data Objective Data Vital Signs: Vital Signs Temp Pulse Resp BP Pulse Ox O2 Del Method O2 Flow Rate 98.5 F 96 18 135/86 H 98 Nasal Cannula 2 01/20/24 11:06 01/20/24 11:06 01/20/24 11:06 01/20/24 11:06 01/20/24 11:06 01/20/24 11:08 01/20/24 11:06 Oxygen Flow Rate (L/min) 2 Oxygen Delivery Method Nasal Cannula Weight: 78 kg Body Mass Index (BMI) 31.4 Intake & Output: Intake and Output for Last 24 Hours 01/18/24 01/19/24 01/20/24 23:59 23:59 23:59 Intake Total 2460.7 / 2460.7 1000.0 / 1000.0 Balance 2460.7 / 2460.7 1000.0 / 1000.0 Lab / Micro Data 01/20/24 05:55 01/20/24 05:55 Labs: Laboratory Results - last 24 hr 01/20/24 05:55: WBC 8.4, RBC 3.22 L, Hgb 8.9 L, Hct 28.5 L, MCV 88.5, MCH 27.6, MCHC 31.2 L, RDW Std Deviation 46.7 H, RDW Coeff of Alfie 14.6, Plt Count 357, MPV10.7, APTT 62.7 H, Sodium 143, Potassium 3.7, Chloride 105, Carbon Dioxide 29.0,Anion Gap 9, BUN 14, Creatinine 1.76 H, Estim Creat Clear Calc 30.41, Est GFR (MDRD) Af Amer 37 L, Est GFR (MDRD) Non-Af 31 L, BUN/Creatinine Ratio 8.0 L, Glucose 92, Calcium 8.8 Micro: Microbiology 01/16/24 17:55 Stool Clostridioides difficile (PCR) - Final 01/10/24 10:07 Wound - Toe Gram Stain - Final 01/10/24 10:07 Wound - Toe Wound Culture - Final Raoultella planticola Staphylococcus auricularis 01/10/24 10:07 Wound - Toe Anaerobic Culture - Final No anaerobic bacteria isolated. 01/10/24 10:02 Wound - Toe Gram Stain - Final 01/10/24 10:02 Wound - Toe Wound Culture - Final Staphylococcus simulans Corynebacterium amycolatum/xer 01/10/24 10:02 Wound - Toe Anaerobic Culture - Final No anaerobic bacteria isolated. 01/08/24 15:50 Blood Culture (Wb) - Anticubital Right Blood Culture - Final No growth in 5 days. 01/08/24 15:35 Blood Culture (Wb) - Anticubital Left Blood Culture - Final No growth in 5 days. Physical Exam Const alert, oriented x3 and no apparent distress Constitutional Narrative: Elderly female, pleasant, sitting up comfortably in bed, conversing normally, noacute distress. General Appearance: cooperative and comfortable HEENT normocephalic, head/scalp atraumatic, hearing grossly normal bilaterally, nasal mucous membranes and turbinates normal and moist oral mucous membranes Eyes PERRL, EOMs intact bilaterally and conjunctivae normal Neck full ROM, no lymphadenopathy and supple Lymph Lymphatic: no lymphadenopathy noted Chest inspection of chest normal Resp normal respiratory effort, normal air movement, no use of accessory muscles and clear to auscultation bilaterally Resp Narrative: Breathing comfortably on 2 L nasal cannula. Cardio regular rate, regular rhythm, no murmurs and peripheral pulses 2+ throughout GI normal to inspection, nondistended, normoactive bowel sounds, soft to palpation,non-tender and non-distended Back/Spine normal ROM Extremity no pedal edema Extremity Narrative: Left lower extremity Roland wrap in place. Skin no rashes or lesions noted Neuro moves all extremities and no focal motor deficits Speech: speech normal Psych mental status grossly normal Assessment & Plan Assessment/Plan (1) MELLY (acute kidney injury): (2) Gangrene: (3) Peripheral arterial occlusive disease: PLAN: Plan Patient is a 68-year-old female who presented to [facility] ED on 01/08/2024 with a left fourth toe wound. 1. Left fourth toe gangrene ? Left fourth toe blackened urine is appearing on admission, had been that way for 1 to 2 weeks. ? Foot x-ray on admit within normal limits. ? I&D performed on 01/10 with podiatry, showed evidence of necrotic bone of fourth digit with malodor and scant purulent drainage. Fourth digit was removedat that time. S/p delayed closure and washout with podiatry on 01/13. ? Wound culture grew Staph simulans, another culture grew Raoultella planticola. ID following, treated with ceftriaxone and metronidazole while inpatient, completed course on 01/19. ? Vascular surgery following as below. ? Wound care following. ? PT/OT/case management following. Likely home with home health care on discharge. 2. Severe peripheral vascular disease of left lower extremity ? Chronic in-stent thrombosis of left common and external iliac arteries on imaging. ? Vascular surgery following. S/p angiography and thrombectomy on with incomplete clearance of subacute chronic thrombus. Planning for bypass on 01/[address] Frost. ? Continue heparin drip for anticoagulation. Continue home aspirin, statin, cilostazol. Holding Plavix. 3. MELLY, improving ? Creatinine peaked at 2.55, with baseline 0.84. ? FeNa 5.64%. Ultrasound showed mild left-sided nephrosis. ? Nephrology following. Suspect ATN due to vancomycin versus underlying infection, versus possible GN. Patient notably did receive contrast after initial MELLY. ? Creatinine slowly improving, has had adequate urine output. Monitor BMP and urine output daily. Avoid nephrotoxins. 4. Acute on chronic anemia ? Hemoglobin 13.4 on admit, down trended to 11-12 with IV fluid administration, was at baseline. ? Hemoglobin has slowly down trended during hospitalization, most recent hemoglobin 8.9 on 01/19. Suspect secondary to blood loss with procedures as well as blood draws during hospitalization. ? Monitor CBC daily. Chronic medical conditions: ? COPD: Not on home O2. Continue home inhalers. Incentive spirometry at bedside. ? Hypertension: Stable. Continue home amlodipine. ? Former tobacco user: Advised continued cessation. ? Obesity: BMI 31 on admit. Complicates hospital course, care and prognosis. DVT prophylaxis: Heparin drip CODE STATUS: Full code, verified Expected disposition: Home with [facility], 2-3 days Total clinical time spent by myself addressing the patient's medical issues, reviewing all the data, and collaborating with patient's care team: 25 minutes. Charges/Coding Visit Charges Inpatient E&M: 86989 Subs Hosp L1 01/20/24 1508 <Electronically signed by Armani Moses DO> Cosigner Signature (if applicable): CC: ~ Signed [facility] Work Phone: 1(602) 401-598903-05-2024 Progress [facility] January 19, 2024 1:58pm Note Date/Time January 19, 2024 1:58 pm [facility] Medical Records Department [address] [place] [id number] Progress Note - Infect Disease 01/19/24 1357 MR#: [id number] Acct: [id number] Name: BRENDA MACEDO Rep #:[id number] : 1955 68 From: Kevin gamboa MD PCP: ANN MARIE Corona tus:ADM IN [id number] ID ID: Route of nutrition/ use of supplements: [] Nutritional Intake: [] IV Site: [] Morse Catheter: [] Assessment & Plan Assessment/Plan (1) Osteomyelitis: QUALIFIERS: Osteomyelitis type: unspecified type Osteomyelitis location: foot Laterality: left Qualified Code(s): M86.9 - Osteomyelitis, unspecified (2) Gangrene: PLAN: Taken to OR 01/10/[address] Camacho for L 4th toe amputation. Surg cx showing raoultella, MS-CoNS, and GPR. New MELLY, changed zosyn to ceftriaxone/flagyl. Taken for closure 01/13/24. Final path shows no residual infection. Has completed adequate course, will stop abx today. Will follow as needed, please call with any new issues (3) Peripheral arterial occlusive disease: 01/19/24 1358 <Electronically signed by Kevin Souza MD> Cosigner Signature (if applicable): CC: ~ Signed [facility] Work Phone: 1(573) 387-324003-05-2024 Progress note Author Momo Camacho [facility] January 19, 2024 12:19pm Note Date/Time January 19, 2024 12:0 4pm [facility] Medical Records Department [address] [place] [address] Progress Note - Surgery 01/19/24 1203 MR#: [id number] Acct: [id number] Name: BRENDA MACEDO Rep #:[id number] : 1955 68 From: Momo Roberts PM PCP: ANN MARIE Corona Sta tus:ADM IN Location: MS3 [id number] Subjective Subjective Ms. Macedo is a 62-year-old female seen at bedside today for follow-up evaluationof delayed primary closure to the left lower extremity. DOS: 01/13/2024. Patient denies any pain to left lower extremity. She has been getting dressing changes per wound care nurse without any pain. She admits that vascular surgeryis planning a open bypass procedure this . She denies any trauma. Denies constitutional symptoms. No other pedal complaints at this time. Objective Data Objective Data Vital Signs: Vital Signs Temp Pulse Resp BP Pulse Ox O2 Del Method O2 Flow Rate 98.4 F 97 18 149/74 H 97 Nasal Cannula 2 01/19/24 09:03 01/19/24 09:03 01/19/24 09:03 01/19/24 09:03 01/19/24 09:11 01/19/24 09:03 01/19/24 09:11 Oxygen Flow Rate (L/min) 2 Oxygen Delivery Method Nasal Cannula Weight: 78 kg Body Mass Index (BMI) 31.4 Intake & Output: Intake and Output for Last 24 Hours 01/17/24 01/18/24 01/19/24 23:59 23:59 23:59 Intake Total 1410.98 / 1710.98 2460.7 / 2460.7 120.6 / 120.6 Balance 1410.98 / 1710.98 2460.7 / 2460.7 120.6 / 120.6 Lab / Micro Data 01/19/24 05:21 01/19/24 05:21 Labs: Laboratory Results - last 24 hr 01/19/24 05:21: WBC 8.9, RBC 3.43 L, Hgb 9.3 L, Hct 30.1 L, MCV 87.8, MCH 27.1, MCHC 30.9 L, RDW Std Deviation 45.6 H, RDW Coeff of Alfie 14.3, Plt Count 313, MPV10.4, APTT 71.4 H, Sodium 142, Potassium 3.3 L, Chloride 104, Carbon Dioxide 31.0, Anion Gap 7, BUN 16, Creatinine 1.82 H, Estim Creat Clear Calc 29.41, Est GFR (MDRD) Af Amer 36 L, Est GFR (MDRD) Non-Af 30 L, BUN/Creatinine Ratio 8.8 L,Glucose 97, Calcium 9.0, Magnesium 1.8 Micro: Microbiology 01/16/24 17:55 Stool Clostridioides difficile (PCR) - Final 01/10/24 10:07 Wound - Toe Gram Stain - Final 01/10/24 10:07 Wound - Toe Wound Culture - Final Raoultella planticola Staphylococcus auricularis 01/10/24 10:07 Wound - Toe Anaerobic Culture - Final No anaerobic bacteria isolated. 01/10/24 10:02 Wound - Toe Gram Stain - Final 01/10/24 10:02 Wound - Toe Wound Culture - Final Staphylococcus simulans Corynebacterium amycolatum/xer 01/10/24 10:02 Wound - Toe Anaerobic Culture - Final No anaerobic bacteria isolated. 01/08/24 15:50 Blood Culture (Wb) - Anticubital Right Blood Culture - Final No growth in 5 days. 01/08/24 15:35 Blood Culture (Wb) - Anticubital Left Blood Culture - Final No growth in 5 days. Physical Exam Narrative Neurovascular status is unchanged. No pain to palpation to the incision over the dressing. Nonpitting edema appreciated to the distal and proximal aspect ofthe Roland bandage to left lower extremity. Active and passive range of motion of the digits is pain-free. There is no pain with calf compression. Assessment & Plan Assessment/Plan (1) Osteomyelitis: QUALIFIERS: Laterality: left Osteomyelitis location: foot Osteomyelitis type: unspecified type Qualified Code(s): M86.9 - Osteomyelitis, unspecified PLAN: Patient was examined and evaluated. All findings were discussed with the patient. All questions were answered to the patient satisfaction. Patient left lower extremity dressing was changed by wound care nurse. Wound care nurse photos evaluated, no concern for infection or surgical wound dehiscence. Continue wound care orders consisting of Betadine soaked Adaptic, dry sterile dressing and single-layer Cobb compression bandage to left lower extremity. Surgery Cx (Bone): R. planticola, S auricularis, Surgery Cx: (Swab): S similans, C amycolatum Path: Clear Margin: (-)ve for Osteomyelitis Medicine: On board, medical management Vascular surgery: On board, plan for Open bypass. Surgery planned for ,02/10/2024. Infectious disease: On board, IV antibiotics ceftriaxone/Flagyl. Plan to discharge on 1 week of p.o. Augmentin. Patient is cleared from podiatry standpoint to discharge after being cleared by medicine team, vascular team and infectious disease team. Podiatry will sign off and follow from a distance. Wound care orders are in forwound care nurse for every other day dressing changes. Please reconsult Dr Camacho, with any questions or concerns. Patient will follow-up with Dr. Camacho at the wound care center 1 week postdischarge. Discharge instructions are in. Thank you for letting me be involved in the patient's care! 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, left le01/19/24 1219 <Electronically signed by Momo Camacho DPM> Cosigner Signature (if applicable): CC: ~ Signed [facility] Work Phone: 1(349) 342-218403-05-2024 Progress note Author Armani Moses [facility] January 19, 2024 11:28am Note Date/Time January 19, 2024 10:1 1am [facility] Medical Records Department [address] [place] [address] Progress Note - Hospitalist 01/19/24 1011 MR#: [id number] Acct: [id number] Name: BRENDA MACEDO Rep #:[id number] : 1955 68 From: Armani lyles DO PCP: ANN MARIE Corona Sta tus:ADM IN Location: [place] [id number] Reason for Visit Reason for Visit: Diagnoses 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 Patient seen at bedside this morning, family member present. Patient sitting up comfortably in bed, conversing normally, no acute distress. Looking forward to having her procedure done on , states she was told by vascular surgery that there is a potential she could go home on either Thursday or Thursday depending on how she does postoperatively. No other acute concerns this morning. Objective Data Objective Data Vital Signs: Vital Signs Temp Pulse Resp BP Pulse Ox O2 Del Method O2 Flow Rate 98.4 F 97 18 149/74 H 97 Nasal Cannula 2 01/19/24 09:03 01/19/24 09:03 01/19/24 09:03 01/19/24 09:03 01/19/24 09:11 01/19/24 09:03 01/19/24 09:11 Oxygen Flow Rate (L/min) 2 Oxygen Delivery Method Nasal Cannula Weight: 78 kg Body Mass Index (BMI) 31.4 Intake & Output: Intake and Output for Last 24 Hours 01/17/24 01/18/24 01/19/24 23:59 23:59 23:59 Intake Total 1410.98 / 1710.98 2460.7 / 2460.7 120.6 / 120.6 Balance 1410.98 / 1710.98 2460.7 / 2460.7 120.6 / 120.6 Lab / Micro Data 01/19/24 05:21 01/19/24 05:21 Labs: Laboratory Results - last 24 hr 01/19/24 05:21: WBC 8.9, RBC 3.43 L, Hgb 9.3 L, Hct 30.1 L, MCV 87.8, MCH 27.1, MCHC 30.9 L, RDW Std Deviation 45.6 H, RDW Coeff of Alfie 14.3, Plt Count 313, MPV10.4, APTT 71.4 H, Sodium 142, Potassium 3.3 L, Chloride 104, Carbon Dioxide 31.0, Anion Gap 7, BUN 16, Creatinine 1.82 H, Estim Creat Clear Calc 29.41, Est GFR (MDRD) Af Amer 36 L, Est GFR (MDRD) Non-Af 30 L, BUN/Creatinine Ratio 8.8 L,Glucose 97, Calcium 9.0, Magnesium 1.8 Micro: Microbiology 01/16/24 17:55 Stool Clostridioides difficile (PCR) - Final 01/10/24 10:07 Wound - Toe Gram Stain - Final 01/10/24 10:07 Wound - Toe Wound Culture - Final Raoultella planticola Staphylococcus auricularis 01/10/24 10:07 Wound - Toe Anaerobic Culture - Final No anaerobic bacteria isolated. 01/10/24 10:02 Wound - Toe Gram Stain - Final 01/10/24 10:02 Wound - Toe Wound Culture - Final Staphylococcus simulans Corynebacterium amycolatum/xer 01/10/24 10:02 Wound - Toe Anaerobic Culture - Final No anaerobic bacteria isolated. 01/08/24 15:50 Blood Culture (Wb) - Anticubital Right Blood Culture - Final No growth in 5 days. 01/08/24 15:35 Blood Culture (Wb) - Anticubital Left Blood Culture - Final No growth in 5 days. Physical Exam Const alert, oriented x3 and no apparent distress Constitutional Narrative: Elderly female, pleasant, sitting up comfortably in bed, conversing normally, noacute distress. General Appearance: cooperative and comfortable HEENT normocephalic, head/scalp atraumatic, hearing grossly normal bilaterally, nasal mucous membranes and turbinates normal and moist oral mucous membranes Eyes PERRL, EOMs intact bilaterally and conjunctivae normal Neck full ROM, no lymphadenopathy and supple Lymph Lymphatic: no lymphadenopathy noted Chest inspection of chest normal Resp normal respiratory effort, normal air movement, no use of accessory muscles and clear to auscultation bilaterally Resp Narrative: Breathing comfortably on 2 L nasal cannula. Cardio no murmurs and peripheral pulses 2+ throughout Cardio Narrative: Sinus tachycardia. GI normal to inspection, nondistended, normoactive bowel sounds, soft to palpation,non-tender and non-distended Back/Spine normal ROM Extremity no pedal edema Extremity Narrative: Left lower extremity Roland wrap in place. Skin no rashes or lesions noted Neuro moves all extremities and no focal motor deficits Speech: speech normal Psych mental status grossly normal Assessment & Plan Assessment/Plan (1) MELLY (acute kidney injury): (2) Gangrene: (3) Peripheral arterial occlusive disease: PLAN: Plan Patient is a 68-year-old female who presented to [facility] ED on 01/08/2024 with a left fourth toe wound. 1. Left fourth toe gangrene ? Left fourth toe blackened urine is appearing on admission, had been that way for 1 to 2 weeks. ? Foot x-ray on admit within normal limits. ? I&D performed on 01/10 with podiatry, showed evidence of necrotic bone of fourth digit with malodor and scant purulent drainage. Fourth digit was removedat that time. S/p delayed closure and washout with podiatry on 01/13. ? Wound culture grew Staph simulans, another culture grew Raoultella planticola. ID following, okay for ceftriaxone and metronidazole while inpatient, with planfor p.o. Augmentin on discharge. ? Vascular surgery following as below. ? Wound care following. ? PT/OT/case management following. 2. Severe peripheral vascular disease of left lower extremity ? Chronic in-stent thrombosis of left common and external iliac arteries on imaging. ? Vascular surgery following. S/p angiography and thrombectomy on with incomplete clearance of subacute chronic thrombus. Planning for bypass on 01/[address] Frost. ? Continue heparin drip for anticoagulation. Continue home aspirin, statin, cilostazol. Holding Plavix. 3. MELLY, improving ? Creatinine peaked at 2.55, with baseline 0.84. ? FeNa 5.64%. Ultrasound showed mild left-sided nephrosis. ? Nephrology following. Suspect ATN due to vancomycin versus underlying infection, versus possible GN. Patient notably did receive contrast after initial MELLY. ? Creatinine slowly improving, has had adequate urine output. Monitor BMP and urine output daily. Avoid nephrotoxins. 4. Acute on chronic anemia ? Hemoglobin 13.4 on admit, down trended to 11-12 with IV fluid administration, was at baseline. ? Hemoglobin has slowly down trended during hospitalization, most recent hemoglobin 9.3 on 01/18. Suspect secondary to blood loss with procedures as well asblood draws during hospitalization. ? Monitor CBC daily. Chronic medical conditions: ? COPD: Not on home O2. Continue home inhalers. Incentive spirometry at bedside. ? Hypertension: Stable. Continue home amlodipine. ? Former tobacco user: Advised continued cessation. ? Obesity: BMI 31 on admit. Complicates hospital course, care and prognosis. DVT prophylaxis: Heparin drip CODE STATUS: Full code, verified Expected disposition: Home with [facility], 3-4 days Total clinical time spent by myself addressing the patient's medical issues, reviewing all the data, and collaborating with patient's care team: 25 minutes. Charges/Coding Visit Charges Inpatient E&M: 05518 Subs Hosp L1 01/19/24 1128 <Electronically signed by Armani Moses DO> Cosigner Signature (if applicable): CC: ~ Signed [facility] Work Phone: 1(671) 652-900603-05-2024 Progress note Author Lynn Enriquez [facility] January 19, 2024 9:50am Note Date/Time January 14, 2024 10:38am [facility] Medical Records Department [address] [place] [id number] Progress Note - Nephrology 01/14/24 1031 MR#: [id number] Acct: [id number] Name: BRENDA MACEDO Rep #:[id number] : 1955 68 From: Cee JESUS PCP: ANN MARIE Corona Sta tus:ADM IN Location: [place] [address] Subjective Subjective Sitting in chair. No complaints. Objective Data Objective Data Vital Signs: Vital Signs Temp Pulse Resp BP Pulse Ox O2 Del Method O2 Flow Rate 99.4 F H 111 H 18 130/84 H 93 Nasal Cannula 3 01/14/24 08:00 01/14/24 08:00 01/14/24 08:00 01/14/24 08:00 01/14/24 08:00 01/14/24 08:00 01/14/24 08:00 Oxygen Flow Rate (L/min) 3 Oxygen Delivery Method Nasal Cannula Weight: 78 kg Body Mass Index (BMI) 31.4 Intake & Output: Intake and Output for Last 24 Hours 01/12/24 01/13/24 01/14/24 23:59 23:59 23:59 Intake Total 1150.0 / 1150.0 50 / 750 850 / 850 Balance 1150.0 / 1150.0 50 / 750 850 / 850 Lab / Micro Data 01/14/24 06:10 01/14/24 06:10 Labs: Laboratory Results - last 24 hr 01/13/24 10:45: Urine Color Yellow, Urine Clarity Sl. Cloudy, Urine pH 6.5, Ur Specific [place] 1.010, Urine Protein Negative, Urine Glucose (UA) Normal, UrineKetones 5 H, Urine Occult Blood 25 H, Urine Nitrite Negative, Urine Bilirubin Negative, Urine Urobilinogen Normal, Ur Leukocyte Esterase Negative, Urine RBC 0-5 SEEN, Urine WBC 0-5 SEEN, Ur Squamous Epith Cells 0-5 SEEN, Urine Bacteria RARE, Urine Mucus 0 SEEN, Urine Yeast RARE, Ur Random Sodium 83, Urine Creatinine 26.60 01/13/24 12:15: Random Vancomycin 21.9 H 01/14/24 00:17: Random Vancomycin 18.5 H 01/14/24 06:10: WBC 8.4, RBC 3.91 L, Hgb 10.7 L, Hct 35.1 L, MCV 89.8, MCH 27.4,MCHC 30.5 L, RDW Std Deviation 49.3 H, RDW Coeff of Alfie 15.0 H, Plt Count 246, MPV 10.4, Immature Gran % (Auto) 0.400, Neut % (Auto) 76.9 H, Lymph % (Auto) 10.9 L, Spalding % (Auto) 9.2, Eos % (Auto) 2.1, Baso % (Auto) 0.5, Absolute Neuts (auto) 6.5, Absolute Lymphs (auto) 0.92, Nucleated RBC % 0, Sodium 141, Potassium 3.9, Chloride 111 H, Carbon Dioxide 27.0, Anion Gap 3 L, BUN 21 H, Creatinine 2.17 H, Estim Creat Clear Calc 24.66, Est GFR (MDRD) Af Amer 29 L, Est GFR (MDRD) Non-Af 24 L, BUN/Creatinine Ratio 9.7 L, Glucose 105, Calcium 8.6 Micro: Microbiology 01/10/24 10:07 Wound - Toe Gram Stain - Final 01/10/24 10:07 Wound - Toe Wound Culture - Preliminary Raoultella planticola 01/10/24 10:07 Wound - Toe Anaerobic Culture - Final No anaerobic bacteria isolated. 01/10/24 10:02 Wound - Toe Gram Stain - Final 01/10/24 10:02 Wound - Toe Wound Culture - Preliminary Staphylococcus simulans Gram positive reji 01/10/24 10:02 Wound - Toe Anaerobic Culture - Final No anaerobic bacteria isolated. 01/08/24 15:50 Blood Culture (Wb) - Anticubital Right Blood Culture - Final No growth in 5 days. 01/08/24 15:35 Blood Culture (Wb) - Anticubital Left Blood Culture - Final No growth in 5 days. Radiography Diagnostic Testing: Radiology Impression Toe X-Ray 01/10/24 06:45 IMPRESSION: Fluoroscopy during amputation of the fourth digit. Electronically Signed: Carlien Patel MD at 13:41 EST , Renal Ultrasound 01/13/24 07:14 IMPRESSION: Mild left hydronephrosis of uncertain etiology Sonographically normal right kidney and bladder Electronically Signed: Graham Villalobos MD at 14:18 EST , Physical Exam Narrative Alert awake oriented x 3 no obvious distress s1s2 no murmurs lungs clear abdomen soft no edema Assessment & Plan Assessment/Plan (1) MELLY (acute kidney injury): PLAN: Baseline creatinine was normal, close to baseline up until 2 days ago. Scr increased over past few days, peaked 2.55 yesterday and today improved 2.17. Good urine output. Potassium and bicarb normal. 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 Will continue to follow labs. BPs acceptable. No obstructive symptoms. No contrasted studies. She has been on vancomycin and there was a trough which waselevated. Other medications reviewed. Differential include vancomycin induced ATN versus sepsis induced ATN versus postinfectious glomerulonephritis. Renal ultrasound no hydro right kidney, mild hydro left kidney UA negative protein 25 occult blood, no leukocyte esterase.urine sodium 83. C3 level pending left foot osteo; antibiotics per ID. Off zosyn and vanco. On ceftriaxone and flagyl. To have LLE angio today 01/14/24 1038 <Electronically signed by Cee JESUS> Cosigner Signature (if applicable): 01/19/24 0950 <Electronically signed by Lynn Enriquez MD> CC: ~ Signed [facility] Work Phone: 1(572) 439-320303-04-2024 Progress note Author Selvin Frost [facility] January 18, 2024 5:07pm Note Date/Time January 18, 2024 5:04 pm [facility] Medical Records Department [address] [place] [address] Progress Note - Surgery 01/18/24 1703 MR#: [id number] Acct: [id number] Name: BRENDA MACEDO Rep #:[id number] : 1955 68 From: Selvin Frost MD PCP: Carline Ashley, ANN MARIE Sta tus:ADM IN Location: [place] [address] Subjective Subjective Doing well, no foot pain, no pain at access site. Objective Data Objective Data A&O x 3, NAD RRR Resp non labored Vital Signs: Vital Signs Temp Pulse Resp BP Pulse Ox O2 Del Method O2 Flow Rate 98.9 F 110 H 20 H 132/83 H 97 Nasal Cannula 2 01/18/24 15:25 01/18/24 15:25 01/18/24 15:25 01/18/24 15:25 01/18/24 15:25 01/18/24 15:28 01/18/24 16:00 Oxygen Flow Rate (L/min) 2 Oxygen Delivery Method Nasal Cannula Weight: 171 lb 15.369 oz Body Mass Index (BMI) 31.4 Intake & Output: Intake and Output for Last 24 Hours 01/16/24 01/17/24 01/18/24 23:59 23:59 23:59 Intake Total 862.83 / 1062.83 1410.98 / 1710.98 1400 / 1400 Balance 862.83 / 1062.83 1410.98 / 1710.98 1400 / 1400 Lab / Micro Data 01/15/24 08:08 01/18/24 05:11 Labs: Laboratory Results - last 24 hr 01/17/24 17:16: APTT 77.8 H 01/18/24 05:11: APTT 76.0 H, Sodium 140, Potassium 3.2 L, Chloride 105, Carbon Dioxide 31.0, Anion Gap 4 L, BUN 18, Creatinine 1.87 H, Estim Creat Clear Calc 28.62, Est GFR (MDRD) Af Amer 35 L, Est GFR (MDRD) Non-Af 29 L, BUN/Creatinine Ratio 9.6 L, Glucose 102, Calcium 8.7 Micro: Microbiology 01/16/24 17:55 Stool Clostridioides difficile (PCR) - Final 01/10/24 10:07 Wound - Toe Gram Stain - Final 01/10/24 10:07 Wound - Toe Wound Culture - Final Raoultella planticola Staphylococcus auricularis 01/10/24 10:07 Wound - Toe Anaerobic Culture - Final No anaerobic bacteria isolated. 01/10/24 10:02 Wound - Toe Gram Stain - Final 01/10/24 10:02 Wound - Toe Wound Culture - Final Staphylococcus simulans Corynebacterium amycolatum/xer 01/10/24 10:02 Wound - Toe Anaerobic Culture - Final No anaerobic bacteria isolated. 01/08/24 15:50 Blood Culture (Wb) - Anticubital Right Blood Culture - Final No growth in 5 days. 01/08/24 15:35 Blood Culture (Wb) - Anticubital Left Blood Culture - Final No growth in 5 days. Assessment & Plan Assessment/Plan (1) Atherosclerosis of tlingit & ha[place] arteries of extremities with gangrene, left leg: PLAN: -unsuccessful effort at percutaneous treatment; early chronic thrombus could not be cleared with aspiration, too unstable for angioplasty -some improved perfusion with small flow lumen created, not likely durable -cont heparin drip -plan fem-fem -Cr continues to improve Charges/Coding Visit Charges Inpatient E&M: 48997 Subs Hosp L2 01/18/24 1707 <Electronically signed by Selvin Frost MD> Cosigner Signature (if applicable): CC: ~ Signed [facility] Work Phone: 1(522) 287-995503-04-2024 Progress note Author Armani Moses [facility] January 18, 2024 4:13pm Note Date/Time January 18, 2024 1:05 pm [facility] Medical Records Department [address] [place] [address] [place] [address] Progress Note - Hospitalist 01/18/24 1305 MR#: [id number] Acct: [id number] Name: BRENDA MACEDO Rep #:[id number] : 1955 68 From: Armani lyles DO PCP: ANN MARIE Corona tus:ADM IN Location: [facility] [id number] Reason for Visit Reason for Visit: Diagnoses 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 Patient seen at bedside this morning. Sitting up audibly in bed, conversing normally, no acute distress. Denies any acute pain or discomfort this morning. No other acute concerns at this time. Objective Data Objective Data Vital Signs: Vital Signs Temp Pulse Resp BP Pulse Ox O2 Del Method O2 Flow Rate 98.1 F 100 18 127/67 H 96 Nasal Cannula 2 01/18/24 09:52 01/18/24 09:52 01/18/24 09:52 01/18/24 09:52 01/18/24 09:52 01/18/24 09:52 01/18/24 09:52 Oxygen Flow Rate (L/min) 2 Oxygen Delivery Method Nasal Cannula Weight: 78 kg Body Mass Index (BMI) 31.4 Intake & Output: Intake and Output for Last 24 Hours 01/16/24 01/17/24 01/18/24 23:59 23:59 23:59 Intake Total 862.83 / 1062.83 1410.98 / 1710.98 900 / 900 Balance 862.83 / 1062.83 1410.98 / 1710.98 900 / 900 Lab / Micro Data 01/15/24 08:08 01/18/24 05:11 Labs: Laboratory Results - last 24 hr 01/17/24 17:16: APTT 77.8 H 01/18/24 05:11: APTT 76.0 H, Sodium 140, Potassium 3.2 L, Chloride 105, Carbon Dioxide 31.0, Anion Gap 4 L, BUN 18, Creatinine 1.87 H, Estim Creat Clear Calc 28.62, Est GFR (MDRD) Af Amer 35 L, Est GFR (MDRD) Non-Af 29 L, BUN/Creatinine Ratio 9.6 L, Glucose 102, Calcium 8.7 Micro: Microbiology 01/16/24 17:55 Stool Clostridioides difficile (PCR) - Final 01/10/24 10:07 Wound - Toe Gram Stain - Final 01/10/24 10:07 Wound - Toe Wound Culture - Final Raoultella planticola Staphylococcus auricularis 01/10/24 10:07 Wound - Toe Anaerobic Culture - Final No anaerobic bacteria isolated. 01/10/24 10:02 Wound - Toe Gram Stain - Final 01/10/24 10:02 Wound - Toe Wound Culture - Final Staphylococcus simulans Corynebacterium amycolatum/xer 01/10/24 10:02 Wound - Toe Anaerobic Culture - Final No anaerobic bacteria isolated. 01/08/24 15:50 Blood Culture (Wb) - Anticubital Right Blood Culture - Final No growth in 5 days. 01/08/24 15:35 Blood Culture (Wb) - Anticubital Left Blood Culture - Final No growth in 5 days. Physical Exam Const alert, oriented x3 and no apparent distress Constitutional Narrative: Elderly female, pleasant, sitting up comfortably in bed, conversing normally, noacute distress. General Appearance: cooperative and comfortable HEENT normocephalic, head/scalp atraumatic, hearing grossly normal bilaterally, nasal mucous membranes and turbinates normal and moist oral mucous membranes Eyes PERRL, EOMs intact bilaterally and conjunctivae normal Neck full ROM, no lymphadenopathy and supple Lymph Lymphatic: no lymphadenopathy noted Chest inspection of chest normal Resp normal respiratory effort, normal air movement, no use of accessory muscles and clear to auscultation bilaterally Resp Narrative: Breathing comfortably on 2 L nasal cannula. Cardio no murmurs and peripheral pulses 2+ throughout Cardio Narrative: Sinus tachycardia. GI normal to inspection, nondistended, normoactive bowel sounds, soft to palpation,non-tender and non-distended Back/Spine normal ROM Extremity no pedal edema Extremity Narrative: Left lower extremity Roland wrap in place. Skin no rashes or lesions noted Neuro moves all extremities and no focal motor deficits Speech: speech normal Psych mental status grossly normal Assessment & Plan Assessment/Plan (1) MELLY (acute kidney injury): (2) Gangrene: (3) Peripheral arterial occlusive disease: PLAN: Plan Patient is a 68-year-old female who presented to [facility] ED on 01/08/2024 with a left fourth toe wound. 1. Left fourth toe gangrene ? Left fourth toe blackened urine is appearing on admission, had been that way for 1 to 2 weeks. ? Foot x-ray on admit within normal limits. ? I&D performed on 01/10 with podiatry, showed evidence of necrotic bone of fourth digit with malodor and scant purulent drainage. Fourth digit was removedat that time. S/p delayed closure and washout with podiatry on 01/13. ? Wound culture grew Staph simulans, another culture grew Raoultella planticola. ID following, okay for ceftriaxone and metronidazole while inpatient, with planfor p.o. Augmentin on discharge. ? Vascular surgery following as below. ? Wound care following. ? PT/OT/case management following. 2. Severe peripheral vascular disease of left lower extremity ? Chronic in-stent thrombosis of left common and external iliac arteries on imaging. ? Vascular surgery following. S/p angiography and thrombectomy on with incomplete clearance of subacute chronic thrombus. Planning for bypass on 01/[address] Frost. ? Continue heparin drip for anticoagulation. Continue home aspirin, statin, cilostazol. Holding Plavix. 3. MELLY ? Creatinine peaked at 2.55, with baseline 0.84. ? FeNa 5.64%. Ultrasound showed mild left-sided nephrosis. ? Nephrology following. Suspect ATN due to vancomycin versus underlying infection, versus possible GN. Patient notably did receive contrast after initial MELLY. ? Creatinine slowly improving, has had adequate urine output. Monitor BMP and urine output daily. Avoid nephrotoxins. 4. Acute on chronic anemia ? Hemoglobin 13.4 on admit, down trended to 11-12 with IV fluid administration, was at baseline. ? Hemoglobin is slowly down trended during hospitalization, most recent hemoglobin 9.9 on 01/14. Suspect secondary to blood loss with procedures as well as blood draws during hospitalization. ? Monitor hemoglobin every other day. Chronic medical conditions: ? COPD: Not on home O2. Continue home inhalers. Incentive spirometry at bedside. ? Hypertension: Stable. Continue home amlodipine. ? Former tobacco user: Advised continued cessation. ? Obesity: BMI 31 on admit. Complicates hospital course, care and prognosis. DVT prophylaxis: SCDs CODE STATUS: Full code, verified Expected disposition: TBD Total clinical time spent by myself addressing the patient's medical issues, reviewing all the data, and collaborating with patient's care team: 35 minutes. Charges/Coding Visit Charges Inpatient E&M: 06655 Subs Hosp L2 01/18/24 1613 <Electronically signed by Armani Moses DO> Cosigner Signature (if applicable): CC: ~ Signed [facility] Work Phone: 1(810) 360-865803-03-2024 Progress note Author Selvin Frost [facility] January 17, 2024 5:57pm Note Date/Time January 15, 2024 4:39 pm [facility] Medical Records Department [address] [place] [address] Progress Note - Surgery 01/15/24 1636 MR#: [id number] Acct: [id number] Name: BRENDA MACEDO Rep #:[id number] : 1955 68 From: Katie CAVANAUGH PCP: Carline Ashley WAITER/WAITRESS HEADLayla Sta tus:ADM IN Location: [facility] [place] [id number] Subjective Subjective Patient was seen resting comfortably in bed. She reports occasional shooting pain from the L foot. No excess discomfort at the groin access sites. She had PICC line placed today and reports tolerating this well. Kidney function is noted to be improving. She has no complaints. Objective Data Objective Data Vital Signs: Vital Signs Temp Pulse Resp BP Pulse Ox O2 Del Method O2 Flow Rate 98.7 F 109 H 18 132/73 H 96 Nasal Cannula 4 01/15/24 14:31 01/15/24 14:31 01/15/24 14:31 01/15/24 14:31 01/15/24 14:31 01/15/24 16:06 01/15/24 16:06 Oxygen Flow Rate (L/min) 4 Oxygen Delivery Method Nasal Cannula Weight: 171 lb 15.369 oz Body Mass Index (BMI) 31.4 Intake & Output: Intake and Output for Last 24 Hours 01/13/24 01/14/24 01/15/24 23:59 23:59 23:59 Intake Total 50 / 750 1535 / 1835 1050 / 1050 Balance 50 / 750 1535 / 1835 1050 / 1050 Lab / Micro Data 01/15/24 08:08 01/15/24 08:08 Labs: Laboratory Results - last 24 hr 01/14/24 06:10: Complement C3 136 01/14/24 12:39: Activated Clotting Time 228 H 01/15/24 08:08: WBC 8.1, RBC 3.51 L, Hgb 9.9 L, Hct 31.6 L, MCV 90.0, MCH 28.2, MCHC 31.3 L, RDW Std Deviation 49.2 H, RDW Coeff of Alfie 14.9 H, Plt Count 226, MPV 10.2, Immature Gran % (Auto) 0.500, Neut % (Auto) 77.3 H, Lymph % (Auto) 9.7L, [place] % (Auto) 10.3 H, Eos % (Auto) 1.6, Baso % (Auto) 0.6, Absolute Neuts (auto) 6.3, Absolute Lymphs (auto) 0.79 L, Nucleated RBC % 0, APTT 31.3, Sodium 139, Potassium 3.7, Chloride 107, Carbon Dioxide 28.0, Anion Gap 4 L, BUN 24 H, Creatinine 2.28 H, Estim Creat Clear Calc 23.47, Est GFR (MDRD) Af Amer 28 L, Est GFR (MDRD) Non-Af 23 L, BUN/Creatinine Ratio 10.5, Glucose 112 H, Calcium 8.6 Micro: Microbiology 01/10/24 10:07 Wound - Toe Gram Stain - Final 01/10/24 10:07 Wound - Toe Wound Culture - Preliminary Raoultella planticola Coag Negative Staph 01/10/24 10:07 Wound - Toe Anaerobic Culture - Final No anaerobic bacteria isolated. 01/10/24 10:02 Wound - Toe Gram Stain - Final 01/10/24 10:02 Wound - Toe Wound Culture - Final Staphylococcus simulans Corynebacterium amycolatum/xer 01/10/24 10:02 Wound - Toe Anaerobic Culture - Final No anaerobic bacteria isolated. 01/08/24 15:50 Blood Culture (Wb) - Anticubital Right Blood Culture - Final No growth in 5 days. 01/08/24 15:35 Blood Culture (Wb) - Anticubital Left Blood Culture - Final No growth in 5 days. Radiography Diagnostic Testing: Radiology Impression Echocardiogram 01/15/24 07:32 Interpretation Summary The estimated ejection fraction is 60 %. No evidence for diastolic dysfunction. The left atrium is mildly enlarged. Ordering Physician: Katie Retana Performed By: Christian Gillis RCS Physical Exam Const alert, oriented x3 and no apparent distress General Appearance: cooperative Exam Limitations: no limitations HEENT Head and Scalp: normocephalic and atraumatic Eyes EOMs intact bilaterally General Eye: normal appearance of both eyes Neck full ROM General: trachea midline Resp normal respiratory effort and no use of accessory muscles Effort and Inspection: Negative for labored, stridor or audible wheezes Cardio regular rate and regular rhythm Extremity full ROM Extremity Narrative: LLE postoperative dressings C/D/I Bilateral groin access sites with dry dressings C/D/I, no focal swelling/hematoma or bleeding. 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 Angiogram revealed stent thrombus of varying chronicity in the left common and external iliac arteries vs in-stent plaque or intimal hyperplasia. Thrombectomy was attempted with two different devices limited success. Angioplasty/stenting was not pursued due to concern forpotential embolization and subsequent worsening of her foot perfusion. For this reason, open bypass is recommended. This was discussed with the patient and she is agreeable to proceeding with open bypass. She is currently scheduled in the OR for this on 01/20. Preoperative echo was ordered. Given finding of thrombus on angiogram, initiated therapeutic heparin today to reduce risk of re-thrombosis prior to planned surgery. Hgb was noted to be 9.9 today prior to initiating heparin, will continue to monitor. 01/15/24 1653 <Electronically signed by Katie CAVANAUGH> Cosigner Signature (if applicable): 01/17/241756 <Electronically signed by Selvin Frost MD> CC: ~ Signed [facility] Work Phone: 1(780) 148-576203-03-2024 Progress note Author Lynn Enriquez [facility] January 17, 2024 3:55pm Note Date/Time January 17, 2024 3:55 pm [facility] Medical Records Department [address] [place] [address] Progress Note - Nephrology 01/17/24 1554 MR#: [id number] Acct: [id number] Name: BRENDA MACEDO Rep #:[id number] : 1955 68 From: Lynn owen MD PCP: Carline Ashley WAITER/WAITRESS HEAD-C Sta tus:ADM IN Location: [place] [address] Subjective Subjective No new complaints. Objective Data Objective Data Vital Signs: Vital Signs Temp Pulse Resp BP Pulse Ox O2 Del Method O2 Flow Rate 99.7 F H 111 H 20 H 133/82 H 95 Nasal Cannula 2 01/17/24 15:28 01/17/24 15:28 01/17/24 15:28 01/17/24 15:28 01/17/24 15:28 01/17/24 15:28 01/17/24 15:28 Oxygen Flow Rate (L/min) 2 Oxygen Delivery Method Nasal Cannula Weight: 78 kg Body Mass Index (BMI) 31.4 Intake & Output: Intake and Output for Last 24 Hours 01/15/24 01/16/24 01/17/24 23:59 23:59 23:59 Intake Total 2387.81 / 2387.81 862.83 / 1062.83 1050.98 / 1050.98 Balance 2387.81 / 2387.81 862.83 / 1062.83 1050.98 / 1050.98 Lab / Micro Data 01/15/24 08:08 01/17/24 03:05 Labs: Laboratory Results - last 24 hr 01/16/24 20:45: APTT 63.4 H 01/17/24 03:05: APTT 42.4 H, Sodium 140, Potassium 3.4 L, Chloride 106, Carbon Dioxide 30.0, Anion Gap 4 L, BUN 20 H, Creatinine 1.98 H, Estim Creat Clear Calc27.03, Est GFR (MDRD) Af Amer 32 L, Est GFR (MDRD) Non-Af 27 L, BUN/Creatinine Ratio 10.1, Glucose 101, Calcium 8.5 01/17/24 10:10: APTT 72.1 H Micro: Microbiology 01/16/24 17:55 Stool Clostridioides difficile (PCR) - Final 01/10/24 10:07 Wound - Toe Gram Stain - Final 01/10/24 10:07 Wound - Toe Wound Culture - Final Raoultella planticola Staphylococcus auricularis 01/10/24 10:07 Wound - Toe Anaerobic Culture - Final No anaerobic bacteria isolated. 01/10/24 10:02 Wound - Toe Gram Stain - Final 01/10/24 10:02 Wound - Toe Wound Culture - Final Staphylococcus simulans Corynebacterium amycolatum/xer 01/10/24 10:02 Wound - Toe Anaerobic Culture - Final No anaerobic bacteria isolated. 01/08/24 15:50 Blood Culture (Wb) - Anticubital Right Blood Culture - Final No growth in 5 days. 01/08/24 15:35 Blood Culture (Wb) - Anticubital Left Blood Culture - Final No growth in 5 days. Physical Exam Narrative Alert awake oriented x 3 no obvious distress s1s2 no murmurs lungs clear abdomen soft no edema Assessment & Plan Assessment/Plan (1) MELLY (acute kidney injury): PLAN: Baseline creatinine was normal, close to baseline On admission. She has been on vancomycin and there was a trough which was elevated. Other medicationsreviewed. C3 normal likely ATN Renal ultrasound no hydro right kidney, mild hydro left kidney, bladder collapse, ureter collapsed, likely chronic She had a CTA earlier this month and it seems she did have mild left-sided hydronephrosis on review of those images as well. UA negative protein 25 occult blood, no leukocyte esterase.urine sodium 83. Creatinine is trending down. 01/17/24 8265 <Electronically signed by Lynn Enriquez MD> Cosigner Signature (if applicable): CC: ~ Signed [facility] Work Phone: 1(163) 943-676603-03-2024 Progress note Author Selvin Barrera [facility] January 17, 2024 10:29am Note Date/Time January 17, 2024 7:23 am [facility] Medical Records Department [address] [place] [address] Progress Note - Hospitalist 01/17/24 0720 MR#: [id number] Acct: [id number] Name: BRENDA MACEDO Rep #:[id number] : 1955 68 From: Selvin Barrera DO PCP: Carline Ashley, WAITER/WAITRESS HEAD-C Sta tus:ADM IN Location: [place] [id number] Reason for Visit Reason for Visit: Diagnoses Atherosclerosis of tlingit & haida arteries of extremities with gangrene, left leg (01/08/24) Disorder of arteries and arterioles, unspecified (01/08/24) Gangrene, not elsewhere classified (01/08/24) Osteomyelitis, unspecified (01/08/24) Acute kidney failure, unspecified (01/08/24) Subjective Subjective Diarrhea still ongoing. No new event. Objective Data Objective Data Vital Signs: Vital Signs Temp Pulse Resp BP Pulse Ox O2 Del Method O2 Flow Rate 36.8 C 106 H 18 135/75 H 94 Nasal Cannula 2 01/17/24 05:39 01/17/24 04:08 01/17/24 04:08 01/17/24 04:08 01/17/24 04:08 01/17/24 04:08 01/17/24 04:08 Oxygen Flow Rate (L/min) 2 Oxygen Delivery Method Nasal Cannula Weight: 78 kg Body Mass Index (BMI) 31.4 Intake & Output: Intake and Output for Last 24 Hours 01/15/24 01/16/24 01/17/24 23:59 23:59 23:59 Intake Total 2387.81 / 2387.81 862.83 / 1062.83 550.98 / 550.98 Balance 2387.81 / 2387.81 862.83 / 1062.83 550.98 / 550.98 Lab / Micro Data 01/15/24 08:08 01/17/24 03:05 Labs: Laboratory Results - last 24 hr 01/16/24 12:15: APTT 47.8 H 01/16/24 20:45: APTT 63.4 H 01/17/24 03:05: APTT 42.4 H, Sodium 140, Potassium 3.4 L, Chloride 106, Carbon Dioxide 30.0, Anion Gap 4 L, BUN 20 H, Creatinine 1.98 H, Estim Creat Clear Calc27.03, Est GFR (MDRD) Af Amer 32 L, Est GFR (MDRD) Non-Af 27 L, BUN/Creatinine Ratio 10.1, Glucose 101, Calcium 8.5 Micro: Microbiology 01/16/24 17:55 Stool Clostridioides difficile (PCR) - Final 01/10/24 10:07 Wound - Toe Gram Stain - Final 01/10/24 10:07 Wound - Toe Wound Culture - Final Raoultella planticola Staphylococcus auricularis 01/10/24 10:07 Wound - Toe Anaerobic Culture - Final No anaerobic bacteria isolated. 01/10/24 10:02 Wound - Toe Gram Stain - Final 01/10/24 10:02 Wound - Toe Wound Culture - Final Staphylococcus simulans Corynebacterium amycolatum/xer 01/10/24 10:02 Wound - Toe Anaerobic Culture - Final No anaerobic bacteria isolated. 01/08/24 15:50 Blood Culture (Wb) - Anticubital Right Blood Culture - Final No growth in 5 days. 01/08/24 15:35 Blood Culture (Wb) - Anticubital Left Blood Culture - Final No growth in 5 days. Physical Exam Const alert and no apparent distress HEENT head/scalp atraumatic and moist oral mucous membranes Resp normal respiratory effort, no retractions, no use of accessory muscles and clearto auscultation bilaterally Cardio regular rate, regular rhythm, S1 normal heart sound and S2 normal heart sound GI normal to inspection, nondistended, normoactive bowel sounds, soft to palpation and non-tender Extremity Extremity Narrative: left foot wrapped--did not remove. Assessment & Plan Assessment/Plan (1) Gangrene: PLAN: Plan Left fourth toe gangrene * Left fourth toe black and gangrenous appearing on admission, per patient had been this way for 1 to 2 weeks. * Foot x-ray on admit within normal limits. * I+D performed on 01/10, evidence of necrotic bone to fourth digit with malodor and scant purulent drainage noted.4th digit on left remove removed. Delayed closure on 01/13. * Continue broad-spectrum antibiotics for now, follow-up cultures. ID consult * Vascular surgery consulted per podiatry recs. * Per podiatry, planning for second procedure for delayed closure and washout on 01/13 * Wound culture growing out Staph simulans and another culture growing out Raoultella planticola * On ceftriaxone and metronidazole. (vancomycin discontinued 01/13). * Per ID, plan for PO amox/CA upon discharge. 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 * Angiography and thrombectomy on had incomplete clearance of subacute and chronic thrombus. Plan for bypass next week on 01/[address] Frost * on anticoagulation with heparin gtt. Continue home aspirin, statin, cilostazol. Clopidogrel currently held. MELLY * Improving from peak of to 2.55 (baseline around 0.84). Though has leveled off the past few days. * US showed mild left hydronephrosis. FENa 5.64%. * Nephrology input appreciated: suspecting ATN due to vancomycin v underlying i nfection (sepsis not present) v GN * Did receive contrast AFTER initial MELLY. Creatinine improving. Chronic conditions: * COPD? Continue home inhalers. Incentive spirometry at bedside. * Hypertension? Stable. Continue home amlodipine. * Tobacco use? Former user. Advised continued cessation. DVT prophylaxis: SCDs CODE STATUS: Full code, verified Expected disposition: TBD DW pt's dtr at bedside. Charges/Coding Visit Charges Inpatient E&M: 60307 Subs Hosp L2 01/17/24 1029 <Electronically signed by Selvin Barrera DO> Cosigner Signature (if applicable): CC: ~ Signed [facility] Work Phone: 1(208) 681-633103-02-2024 Progress note Author Selvin Barrera [facility] January 16, 2024 10:07am Note Date/Time January 16, 2024 7:05 am [facility] Medical Records Department [address] [place] [address] Progress Note - Hospitalist 01/16/24 0700 MR#: [id number] Acct: [id number] Name: BRENDA MACEDO Rep #:[id number] : 1955 68 From: Selvin Barrera DO PCP: Carline Ashley, WAITER/WAITRESS HEADReneeC Kely tus:ADM IN Location: MS3 [id number] Reason for Visit Reason for Visit: Diagnoses Atherosclerosis of tlingit & haida arteries of extremities with gangrene, left leg (01/08/24) Disorder of arteries and arterioles, unspecified (01/08/24) Gangrene, not elsewhere classified (01/08/24) Osteomyelitis, unspecified (01/08/24) Acute kidney failure, unspecified (01/08/24) Subjective Subjective Having some diarrhea over the past several days. Objective Data Objective Data Vital Signs: Vital Signs Temp Pulse Resp BP Pulse Ox O2 Del Method O2 Flow Rate 36.9 C 99 18 144/88 H 94 Nasal Cannula 2 01/16/24 05:20 01/16/24 05:20 01/16/24 05:20 01/16/24 05:20 01/16/24 05:20 01/16/24 05:20 01/16/24 05:20 Oxygen Flow Rate (L/min) 2 Oxygen Delivery Method Nasal Cannula Weight: 78 kg Body Mass Index (BMI) 31.4 Intake & Output: Intake and Output for Last 24 Hours 01/14/24 01/15/24 01/16/24 23:59 23:59 23:59 Intake Total 1535 / 1835 2387.81 / 2387.81 64.50 / 64.50 Balance 1535 / 1835 2387.81 / 2387.81 64.50 / 64.50 Lab / Micro Data 01/15/24 08:08 01/16/24 05:17 Labs: Laboratory Results - last 24 hr 01/15/24 08:08: WBC 8.1, RBC 3.51 L, Hgb 9.9 L, Hct 31.6 L, MCV 90.0, MCH 28.2, MCHC 31.3 L, RDW Std Deviation 49.2 H, RDW Coeff of Alfie 14.9 H, Plt Count 226, MPV 10.2, Immature Gran % (Auto) 0.500, Neut % (Auto) 77.3 H, Lymph % (Auto) 9.7L, Spalding % (Auto) 10.3 H, Eos % (Auto) 1.6, Baso % (Auto) 0.6, Absolute Neuts (auto) 6.3, Absolute Lymphs (auto) 0.79 L, Nucleated RBC % 0, APTT 31.3, Sodium 139, Potassium 3.7, Chloride 107, Carbon Dioxide 28.0, Anion Gap 4 L, BUN 24 H, Creatinine 2.28 H, Estim Creat Clear Calc 23.47, Est GFR (MDRD) Af Amer 28 L, Est GFR (MDRD) Non-Af 23 L, BUN/Creatinine Ratio 10.5, Glucose 112 H, Calcium 8.6 01/15/24 16:10: APTT 61.7 H 01/15/24 22:00: APTT 82.2 H 01/16/24 05:17: APTT 57.7 H, Sodium 139, Potassium 3.6, Chloride 109 H, Carbon Dioxide 26.0, Anion Gap 4 L, BUN 22 H, Creatinine 2.21 H, Estim Creat Clear Calc24.22, Est GFR (MDRD) Af Amer 29 L, Est GFR (MDRD) Non-Af 24 L, BUN/Creatinine Ratio 10.0, Glucose 106, Calcium 8.3 L Micro: Microbiology 01/10/24 10:07 Wound - Toe Gram Stain - Final 01/10/24 10:07 Wound - Toe Wound Culture - Preliminary Raoultella planticola Coag Negative Staph 01/10/24 10:07 Wound - Toe Anaerobic Culture - Final No anaerobic bacteria isolated. 01/10/24 10:02 Wound - Toe Gram Stain - Final 01/10/24 10:02 Wound - Toe Wound Culture - Final Staphylococcus simulans Corynebacterium amycolatum/xer 01/10/24 10:02 Wound - Toe Anaerobic Culture - Final No anaerobic bacteria isolated. 01/08/24 15:50 Blood Culture (Wb) - Anticubital Right Blood Culture - Final No growth in 5 days. 01/08/24 15:35 Blood Culture (Wb) - Anticubital Left Blood Culture - Final No growth in 5 days. Radiography Diagnostic Testing: Radiology Impression Echocardiogram 01/15/24 07:32 Interpretation Summary The estimated ejection fraction is 60 %. No evidence for diastolic dysfunction. The left atrium is mildly enlarged. Ordering Physician: Katie Retana Performed By: Christian Gillis RCS Physical Exam Const alert and no apparent distress HEENT head/scalp atraumatic and moist oral mucous membranes Resp normal respiratory effort, no retractions, no use of accessory muscles and clearto auscultation bilaterally Cardio regular rate, regular rhythm, S1 normal heart sound and S2 normal heart sound GI normal to inspection, nondistended, normoactive bowel sounds, soft to palpation,non-tender and non-distended Extremity Extremity Narrative: left foot wrapped, did not remove. Assessment & Plan Assessment/Plan (1) Gangrene: PLAN: Plan Left fourth toe gangrene * Left fourth toe black and gangrenous appearing on admission, per patient had been this way for 1 to 2 weeks. * Foot x-ray on admit within normal limits. * I+D performed on 01/10, evidence of necrotic bone to fourth digit with malodor and scant purulent drainage noted.4th digit on left remove removed. Delayed closure on 01/13. * Continue broad-spectrum antibiotics for now, follow-up cultures. ID consult * Vascular surgery consulted per podiatry recs. * Per podiatry, planning for second procedure for delayed closure and washout on 01/13 * Wound culture growing out Staph simulans and another culture growing out Raoultella planticola * On ceftriaxone and metronidazole. (vancomycin discontinued 01/13). * Per ID, plan for PO amox/CA upon discharge. Peripheral vascular disease with history of stenting * Continue home aspirin, statin, cilostazol. Clopidogrel currently held. * Angiography on had incomplete clearance of subacute and chronic thrombus. Plan for bipass next week with Dr. Frost * on anticoagulation with heparin gtt. MELLY * Improved from peak of to 2.55 (baseline around 0.84). Though has leveled off the past few days. * US showed mild left hydronephrosis. FENa 5.64%. * Nephrology input appreciated: suspecting ATN due to vancomycin v underlying infection (sepsis not present) v GN Chronic conditions: * COPD? Continue home inhalers. Incentive spirometry at bedside. * Hypertension? Stable. Continue home amlodipine. * Tobacco use? Former user. Advised continued cessation. DVT prophylaxis: SCDs CODE STATUS: Full code, verified Expected disposition: TBD Charges/Coding Visit Charges Inpatient E&M: 97955 Subs Hosp L2 01/16/24 1007 <Electronically signed by Selvin Barrera DO> Cosigner Signature (if applicable): CC: ~ Signed [facility] Work Phone: 1(318) 581-215803-01-2024 Progress note Author Lynn Enriquez [facility] January 15, 2024 4:34pm Note Date/Time January 15, 2024 4:34 pm [facility] Medical Records Department [address] [place] [address] Progress Note - Nephrology 01/15/24 1632 MR#: [id number] Acct: [id number] Name: BRENDA MACEDO Rep #:[id number] : 1955 68 From: Lynn owen MD PCP: Carline Ashley WAITER/WAITRESS HEADReneeC Sta tus:ADM IN Location: [place] [address] Subjective Subjective no new events Objective Data Objective Data Vital Signs: Vital Signs Temp Pulse Resp BP Pulse Ox O2 Del Method O2 Flow Rate 98.7 F 109 H 18 132/73 H 96 Nasal Cannula 4 01/15/24 14:31 01/15/24 14:31 01/15/24 14:31 01/15/24 14:31 01/15/24 14:31 01/15/24 16:06 01/15/24 16:06 Oxygen Flow Rate (L/min) 4 Oxygen Delivery Method Nasal Cannula Weight: 78 kg Body Mass Index (BMI) 31.4 Intake & Output: Intake and Output for Last 24 Hours 01/13/24 01/14/24 01/15/24 23:59 23:59 23:59 Intake Total 50 / 750 1535 / 1835 1050 / 1050 Balance 50 / 750 1535 / 1835 1050 / 1050 Lab / Micro Data 01/15/24 08:08 01/15/24 08:08 Labs: Laboratory Results - last 24 hr 01/14/24 06:10: Complement C3 136 01/14/24 12:39: Activated Clotting Time 228 H 01/15/24 08:08: WBC 8.1, RBC 3.51 L, Hgb 9.9 L, Hct 31.6 L, MCV 90.0, MCH 28.2, MCHC 31.3 L, RDW Std Deviation 49.2 H, RDW Coeff of Alfie 14.9 H, Plt Count 226, MPV 10.2, Immature Gran % (Auto) 0.500, Neut % (Auto) 77.3 H, Lymph % (Auto) 9.7L, Spalding % (Auto) 10.3 H, Eos % (Auto) 1.6, Baso % (Auto) 0.6, Absolute Neuts (auto) 6.3, Absolute Lymphs (auto) 0.79 L, Nucleated RBC % 0, APTT 31.3, Sodium 139, Potassium 3.7, Chloride 107, Carbon Dioxide 28.0, Anion Gap 4 L, BUN 24 H, Creatinine 2.28 H, Estim Creat Clear Calc 23.47, Est GFR (MDRD) Af Amer 28 L, Est GFR (MDRD) Non-Af 23 L, BUN/Creatinine Ratio 10.5, Glucose 112 H, Calcium 8.6 Micro: Microbiology 01/10/24 10:07 Wound - Toe Gram Stain - Final 01/10/24 10:07 Wound - Toe Wound Culture - Preliminary Raoultella planticola Coag Negative Staph 01/10/24 10:07 Wound - Toe Anaerobic Culture - Final No anaerobic bacteria isolated. 01/10/24 10:02 Wound - Toe Gram Stain - Final 01/10/24 10:02 Wound - Toe Wound Culture - Final Staphylococcus simulans Corynebacterium amycolatum/xer 01/10/24 10:02 Wound - Toe Anaerobic Culture - Final No anaerobic bacteria isolated. 01/08/24 15:50 Blood Culture (Wb) - Anticubital Right Blood Culture - Final No growth in 5 days. 01/08/24 15:35 Blood Culture (Wb) - Anticubital Left Blood Culture - Final No growth in 5 days. Radiography Diagnostic Testing: Radiology Impression Echocardiogram 01/15/24 07:32 Interpretation Summary The estimated ejection fraction is 60 %. No evidence for diastolic dysfunction. The left atrium is mildly enlarged. Ordering Physician: Katie Retana Performed By: Christian Gillis RCS Physical Exam Narrative Alert awake oriented x 3 no obvious distress s1s2 no murmurs lungs clear abdomen soft no edema Assessment & Plan Assessment/Plan (1) MELLY (acute kidney injury): PLAN: Baseline creatinine was normal, close to baseline up until 2 days ago. Scr increased over past few days, peaked 2.55 and today improved 2.1. Good urine output. Potassium and bicarb normal. 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 Will continue to follow labs. BPs acceptable. No obstructive symptoms. No contrast studies. She has been on vancomycin and there was a trough which was elevated. Other medications reviewed. C3 normal likely ATN Renal ultrasound no hydro right kidney, mild hydro left kidney, bladder collapse, ureter collapsed, likely chronic UA negative protein 25 occult blood, no leukocyte esterase.urine sodium 83. left foot osteo; antibiotics per ID. 01/15/24 1634 <Electronically signed by Lynn Enriquez MD> Cosigner Signature (if applicable): CC: ~ Signed [facility] Work Phone: 1(780) 654-194603-01-2024 Procedure [facility] 01-15-2024 Progress note Author Selvin Barrera [facility] January 15, 2024 11:26am Note Date/Time January 15, 2024 7:14 am [facility] Medical Records Department [address] [place] [address] Progress Note - Hospitalist 01/15/24 0711 MR#: [id number] Acct: [id number] Name: BRENDA MACEDO Rep #:[id number] : 1955 68 From: Selvin Barrera DO PCP: ANN MARIE Corona Sta tus:ADM IN Location: [place] [address]-1 Subjective Subjective Feels well. No new events. Objective Data Objective Data Vital Signs: Vital Signs Temp Pulse Resp BP Pulse Ox O2 Del Method O2 Flow Rate 36.9 C 115 H 16 128/82 H 94 Nasal Cannula 4 01/15/24 04:31 01/15/24 04:31 01/15/24 04:31 01/15/24 04:31 01/15/24 06:20 01/15/24 06:20 01/15/24 06:20 Oxygen Flow Rate (L/min) 4 Oxygen Delivery Method Nasal Cannula Weight: 78 kg Body Mass Index (BMI) 31.4 Intake & Output: Intake and Output for Last 24 Hours 01/13/24 01/14/24 01/15/24 23:59 23:59 23:59 Intake Total 50 / 750 1535 / 1835 600 / 600 Balance 50 / 750 1535 / 1835 600 / 600 Lab / Micro Data 01/15/24 08:08 01/15/24 08:08 Labs: Laboratory Results - last 24 hr 01/14/24 06:10: Complement C3 136 01/14/24 12:39: Activated Clotting Time 228 H Micro: Microbiology 01/10/24 10:07 Wound - Toe Gram Stain - Final 01/10/24 10:07 Wound - Toe Wound Culture - Preliminary Raoultella planticola Gram Positive Cocci 01/10/24 10:07 Wound - Toe Anaerobic Culture - Final No anaerobic bacteria isolated. 01/10/24 10:02 Wound - Toe Gram Stain - Final 01/10/24 10:02 Wound - Toe Wound Culture - Preliminary Staphylococcus simulans Gram positive reji 01/10/24 10:02 Wound - Toe Anaerobic Culture - Final No anaerobic bacteria isolated. 01/08/24 15:50 Blood Culture (Wb) - Anticubital Right Blood Culture - Final No growth in 5 days. 01/08/24 15:35 Blood Culture (Wb) - Anticubital Left Blood Culture - Final No growth in 5 days. Radiography Diagnostic Testing: Radiology Impression Toe X-Ray 01/10/24 06:45 IMPRESSION: Fluoroscopy during amputation of the fourth digit. Electronically Signed: Carline Patel MD at 13:41 EST , Physical Exam Cardio regular rate, regular rhythm, S1 normal heart sound and S2 normal heart sound GI normal to inspection, nondistended, normoactive bowel sounds, soft to palpation,non-tender and non-distended Extremity Extremity Narrative: left foot wrapped. Assessment & Plan Assessment/Plan (1) Gangrene: PLAN: Plan Left fourth toe gangrene * Left fourth toe black and gangrenous appearing on admission, per patient had been this way for 1 to 2 weeks. * Foot x-ray on admit within normal limits. * I+D performed on 01/10, evidence of necrotic bone to fourth digit with malodor and scant purulent drainage noted.4th digit on left remove removed. Delayed closure on 01/13. * Continue broad-spectrum antibiotics for now, follow-up cultures. ID consult * Vascular surgery consulted per podiatry recs. * Per podiatry, planning for second procedure for delayed closure and washout on 01/13 * Wound culture growing out Staph simulans and another culture growing out Raoultella planticola * On ceftriaxone and metronidazole. (vancomycin discontinued 01/13). * Per ID, plan for PO amox/CA. Peripheral vascular disease with history of stenting * follows with Dr. Song at [facility] * Vascular surgery here consulted as noted above. Continue home aspirin, statin, cilostazol. Clopidogrel currently held. * Angiography on had incomplete clearance of subacute and chronic thrombus. Plan for reattempt next week. * on anticoagulation. MELLY * Improving from peak of to 2.55 (baseline around 0.84). Did receive IVF on 01/12. * US showed mild left hydronephrosis. FENa 5.64%. * Nephrology input appreciated: suspecting ATN due to vancomycin v underlying infection (sepsis not present) v GN Chronic conditions: * COPD? Continue home inhalers. Incentive spirometry at bedside. * Hypertension? Continue home amlodipine. * Tobacco use? Former user. Advised continued cessation. DVT prophylaxis: SCDs CODE STATUS: Full code, verified Expected disposition: TBD Charges/Coding Visit Charges Inpatient E&M: 30573 Subs Hosp L2 01/15/24 1126 <Electronically signed by Selvin Barrera DO> Cosigner Signature (if applicable): CC: ~ Signed [facility] Work Phone: 1(888) 745-752302-29-2024 Progress note Author Selvin Frost [facility] January 14, 2024 6:28pm Note Date/Time January 14, 2024 8:58am [facility] Medical Records Department [address] [place] [address] Progress Note - Surgery 01/14/24 0853 MR#: [id number] Acct: [id number] Name: BRENDA MACEDO Rep #:[id number] : 1955 68 From: Katie CAVANAUGH PCP: Carline Ashley, WAITER/WAITRESS HEAD-C Sta tus:ADM IN Location: MS3 AU125-5 Subjective Subjective Patient is seen resting comfortably in bed with family member at bedside. She had delayed primary closure of her L 4th digit amputation. She reports this wentwell and she is feeling good this morning. She has been NPO since midnight. Objective Data Objective Data Vital Signs: Vital Signs Temp Pulse Resp BP Pulse Ox O2 Del Method O2 Flow Rate 98.6 F 95 16 129/72 H 93 Nasal Cannula 3 01/14/24 02:50 01/14/24 07:00 01/14/24 07:00 01/14/24 02:50 01/14/24 07:00 01/14/24 07:00 01/14/24 07:00 Oxygen Flow Rate (L/min) 3 Oxygen Delivery Method Nasal Cannula Weight: 171 lb 15.369 oz Body Mass Index (BMI) 31.4 Intake & Output: Intake and Output for Last 24 Hours 01/12/24 01/13/24 01/14/24 23:59 23:59 23:59 Intake Total 1150.0 / 1150.0 50 / 750 800 / 800 Balance 1150.0 / 1150.0 50 / 750 800 / 800 Lab / Micro Data 01/14/24 06:10 01/14/24 06:10 Labs: Laboratory Results - last 24 hr 01/13/24 10:45: Urine Color Yellow, Urine Clarity Sl. Cloudy, Urine pH 6.5, Ur Specific [place] 1.010, Urine Protein Negative, Urine Glucose (UA) Normal, UrineKetones 5 H, Urine Occult Blood 25 H, Urine Nitrite Negative, Urine Bilirubin Negative, Urine Urobilinogen Normal, Ur Leukocyte Esterase Negative, Urine RBC 0-5 SEEN, Urine WBC 0-5 SEEN, Ur Squamous Epith Cells 0-5 SEEN, Urine Bacteria RARE, Urine Mucus 0 SEEN, Urine Yeast RARE, Ur Random Sodium 83, Urine Creatinine 26.60 01/13/24 12:15: Random Vancomycin 21.9 H 01/14/24 00:17: Random Vancomycin 18.5 H 01/14/24 06:10: WBC 8.4, RBC 3.91 L, Hgb 10.7 L, Hct 35.1 L, MCV 89.8, MCH 27.4,MCHC 30.5 L, RDW Std Deviation 49.3 H, RDW Coeff of Alfie 15.0 H, Plt Count 246, MPV 10.4, Immature Gran % (Auto) 0.400, Neut % (Auto) 76.9 H, Lymph % (Auto) 10.9 L, Spalding % (Auto) 9.2, Eos % (Auto) 2.1, Baso % (Auto) 0.5, Absolute Neuts (auto) 6.5, Absolute Lymphs (auto) 0.92, Nucleated RBC % 0, Sodium 141, Potassium 3.9, Chloride 111 H, Carbon Dioxide 27.0, Anion Gap 3 L, BUN 21 H, Creatinine 2.17 H, Estim Creat Clear Calc 24.66, Est GFR (MDRD) Af Amer 29 L, Est GFR (MDRD) Non-Af 24 L, BUN/Creatinine Ratio 9.7 L, Glucose 105, Calcium 8.6 Micro: Microbiology 01/10/24 10:07 Wound - Toe Gram Stain - Final 01/10/24 10:07 Wound - Toe Wound Culture - Preliminary Raoultella planticola 01/10/24 10:07 Wound - Toe Anaerobic Culture - Final No anaerobic bacteria isolated. 01/10/24 10:02 Wound - Toe Gram Stain - Final 01/10/24 10:02 Wound - Toe Wound Culture - Preliminary Staphylococcus simulans Gram positive reji 01/10/24 10:02 Wound - Toe Anaerobic Culture - Final No anaerobic bacteria isolated. 01/08/24 15:50 Blood Culture (Wb) - Anticubital Right Blood Culture - Final No growth in 5 days. 01/08/24 15:35 Blood Culture (Wb) - Anticubital Left Blood Culture - Final No growth in 5 days. Radiography Diagnostic Testing: Radiology Impression Toe X-Ray 01/10/24 06:45 IMPRESSION: Fluoroscopy during amputation of the fourth digit. Electronically Signed: Carline Patel MD at 13:41 EST , Renal Ultrasound 01/13/24 07:14 IMPRESSION: Mild left hydronephrosis of uncertain etiology Sonographically normal right kidney and bladder Electronically Signed: Graham Villalobos MD at 14:18 EST , Physical Exam Const alert, oriented x3 and no apparent distress General Appearance: cooperative Exam Limitations: no limitations HEENT Head and Scalp: normocephalic and atraumatic Eyes EOMs intact bilaterally General Eye: normal appearance of both eyes Neck full ROM General: trachea midline Resp normal respiratory effort and no use of accessory muscles Effort and Inspection: Negative for labored, stridor or audible wheezes Cardio regular rate and regular rhythm Extremity full ROM Extremity Narrative: LLE postoperative dressings C/D/I Skin no rashes or lesions noted Neuro oriented x3, CN's II-XII intact bilaterally, no focal motor deficits and no sensory deficits noted Psych thought process normal, cooperative, affect normal, speech normal and activity/motor behavior normal Assessment & Plan Assessment/Plan (1) 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 We again discussed the procedure including risks, benefits, and recovery and she remains agreeable to proceed. All questions/concerns were addressed. Continue ASA, Plavix. 01/14/24 0859 <Electronically signed by Katie CAVANAUGH> Cosigner Signature (if applicable): 01/14/24 1828 <Electronically signed by Selvin Frost MD> CC: ~ Signed [facility] Work Phone: 1(417) 514-380102-29-2024 Procedure [facility] 01-14-2024 Progress note Author Selvin Barrera [facility] January 14, 2024 11:07am Note Date/Time January 14, 2024 6:58am [facility] Medical Records Department [address] [place] [address] Progress Note - Hospitalist 01/14/2453 MR#: [id number] Acct: [id number] Name: BERNDA MACEDO Rep #:[id number] : 1955 68 From: Selvin Barrera DO PCP: Carline Ashley, WAITER/WAITRESS HEAD-C Sta tus:ADM IN Location: MS3 [id number] Subjective Subjective Left foot is sore. No other complaints. Objective Data Objective Data Vital Signs: Vital Signs Temp Pulse Resp BP Pulse Ox O2 Del Method O2 Flow Rate 36.9 C 115 H 18 118/68 93 Nasal Cannula 3 01/13/24 21:09 01/13/24 21:09 01/13/24 21:09 01/13/24 21:09 01/13/24 21:09 01/13/24 21:09 01/13/24 21:09 Oxygen Flow Rate (L/min) 3 Oxygen Delivery Method Nasal Cannula Weight: 78 kg Body Mass Index (BMI) 31.4 Intake & Output: Intake and Output for Last 24 Hours 01/12/24 01/13/24 01/14/24 23:59 23:59 23:59 Intake Total 1150.0 / 1150.0 50 / 750 700 / 700 Balance 1150.0 / 1150.0 50 / 750 700 / 700 Lab / Micro Data 01/14/24 06:10 01/14/24 06:10 Labs: Laboratory Results - last 24 hr 01/13/24 10:45: Urine Color Yellow, Urine Clarity Sl. Cloudy, Urine pH 6.5, Ur Specific [place] 1.010, Urine Protein Negative, Urine Glucose (UA) Normal, UrineKetones 5 H, Urine Occult Blood 25 H, Urine Nitrite Negative, Urine Bilirubin Negative, Urine Urobilinogen Normal, Ur Leukocyte Esterase Negative, Urine RBC 0-5 SEEN, Urine WBC 0-5 SEEN, Ur Squamous Epith Cells 0-5 SEEN, Urine Bacteria RARE, Urine Mucus 0 SEEN, Urine Yeast RARE, Ur Random Sodium 83, Urine Creatinine 26.60 01/13/24 12:15: Random Vancomycin 21.9 H 01/14/24 00:17: Random Vancomycin 18.5 H 01/14/24 06:10: WBC 8.4, RBC 3.91 L, Hgb 10.7 L, Hct 35.1 L, MCV 89.8, MCH 27.4,MCHC 30.5 L, RDW Std Deviation 49.3 H, RDW Coeff of Alfie 15.0 H, Plt Count 246, MPV 10.4, Immature Gran % (Auto) 0.400, Neut % (Auto) 76.9 H, Lymph % (Auto) 10.9 L, Spalding % (Auto) 9.2, Eos % (Auto) 2.1, Baso % (Auto) 0.5, Absolute Neuts (auto) 6.5, Absolute Lymphs (auto) 0.92, Nucleated RBC % 0 Micro: Microbiology 01/08/24 15:35 Blood Culture (Wb) - Anticubital Left Blood Culture - Final No growth in 5 days. 01/10/24 10:02 Wound - Toe Gram Stain - Final 01/10/24 10:02 Wound - Toe Wound Culture - Preliminary Staphylococcus simulans Gram positive reji 01/10/24 10:02 Wound - Toe Anaerobic Culture - Preliminary Checking for anaerobes, further studies to follow. 01/10/24 10:07 Wound - Toe Gram Stain - Final 01/10/24 10:07 Wound - Toe Wound Culture - Preliminary Raoultella planticola 01/08/24 15:50 Blood Culture (Wb) - Anticubital Right Blood Culture - Final No growth. Radiography Diagnostic Testing: Radiology Impression Renal Ultrasound 01/13/24 07:14 IMPRESSION: Mild left hydronephrosis of uncertain etiology Sonographically normal right kidney and bladder Electronically Signed: Graham Villalobos MD at 14:18 EST , Physical Exam Const alert and no apparent distress HEENT head/scalp atraumatic and moist oral mucous membranes Resp normal respiratory effort, no retractions, no use of accessory muscles and clearto auscultation bilaterally Cardio regular rate, regular rhythm, S1 normal heart sound and S2 normal heart sound GI normal to inspection, nondistended, normoactive bowel sounds, soft to palpation and non-tender Neuro Sensorium / Orientation: awake and alert Assessment & Plan Assessment/Plan (1) Gangrene: PLAN: Plan Left fourth toe gangrene * Left fourth toe black and gangrenous appearing on admission, per patient had been this way for 1 to 2 weeks. * Foot x-ray on admit within normal limits. * I+D performed on 01/10, evidence of necrotic bone to fourth digit with malodor and scant purulent drainage noted.4th digit on left remove removed. Delayed closure on 01/13. * Continue broad-spectrum antibiotics for now, follow-up cultures. ID consult * Vascular surgery consulted per podiatry recs. * Per podiatry, planning for second procedure for delayed closure and washout on 01/13 * Wound culture growing out Staph simulans and another culture growing out Raoultella planticola * On ceftriaxone and metronidazole. (vancomycin discontinued 01/13). Peripheral vascular disease with history of stenting * follows with Dr. Song at [facility] * Vascular surgery here consulted as noted above. Continue home aspirin, statin, cilostazol. Clopidogrel currently held. * Angiography with percutaneous mechanical thrombectomy/atherectomy for MELLY * Improving from peak of to 2.55 (baseline around 0.84). Did receive IVF on 01/12. * US showed mild left hydronephrosis. FENa 5.64%. * Nephrology input appreciated: suspecting ATN due to vancomycin v underlying infection (sepsis not present) v GN Chronic conditions: * COPD? Continue home inhalers. Incentive spirometry at bedside. * Hypertension? Continue home amlodipine. * Tobacco use? Former user. Advised continued cessation. DVT prophylaxis: SCDs CODE STATUS: Full code, verified Expected disposition: TBD Charges/Coding Visit Charges Inpatient E&M: 05899 Subs Hosp L2 01/14/24 1107 <Electronically signed by Selvin Barrera DO> Cosigner Signature (if applicable): CC: ~ Signed [facility] Work Phone: 1(347) 437-391902-29-2024 Progress note Author Kevin Souza [facility] January 14, 2024 10:29am Note Date/Time January 14, 2024 10:29am [facility] Medical Records Department [address] [place] [address] Progress Note - Infect Disease 01/14/24 1027 MR#: [id number] Acct: [id number] Name: BRENDA MACEDO Rep #:[id number] : 1955 68 From: Kevin gamboa MD PCP: ANN MARIE Coronas:ADM IN Location: MS3 [id number] Physical Exam Narrative Feeling ok, no fever, no n/v/d. Mild pain in foot. Const alert and no apparent distress Resp normal air movement and clear to auscultation bilaterally Cardio regular rate and regular rhythm GI soft to palpation, non-tender and non-distended Skin no rashes or lesions noted ID ID: Route of nutrition/ use of supplements: [] Nutritional Intake: [] IV Site: [] Morse Catheter: [] Assessment & Plan Assessment/Plan (1) Osteomyelitis: QUALIFIERS: Osteomyelitis location: foot Laterality: left (2) Gangrene: PLAN: Taken to OR 01/10/[address] Camacho for L 4th toe amputation. Surg cx showing raoultella, MS-CoNS, and GPR. New MELLY, changed zosyn to ceftriaxone/flagyl. Taken for closure 01/13/24. Angio planned for today. Final path still pending. Ok for discharge home on one week po augmentin, will need dosing based on GFR. MELLY improved. If path shows residual osteo, will need abx extended as an outpt. Will follow (3) Peripheral arterial occlusive disease: 01/14/24 1029 <Electronically signed by Kevin Souza MD> Cosigner Signature (if applicable): CC: ~ Signed [facility] Work Phone: 1(822) 179-650402-28-2024 Procedure [facility] 01-13-2024 Consult note Author Kevin Adkins [facility] January 13, 2024 2:26pm Note Date/Time January 13, 2024 2:20pm [facility] Medical Records Department [address] [place] [address] Pharmacokinetic/Renal -Consult 01/13/24 1420 MR#: [id number] Acct: [id number] Name: BRENDA MACEDO Rep #:[id number] : 1955 68 From: Kevin Adkins PCP: Carline Mason Dion, WAITER/WAITRESS HEAD-C Sta tus:ADM IN Y Location: MS3 CW262-2 Consult Antibiotic Management Pharmacy has been consulted to manage selected antibiotic: Vancomycin Type of Intervention Type of Consult: Follow-up Prior Doses of Antibiotics Prior Doses of Antibiotics Received/Current Regimen: Trough has been high therefore not currently on a scheduled dose. Labs Labs: Sodium 141 mmol/L (136-145) 01/13/24 05:11 Potassium 3.9 mmol/L (3.5-5.1) 01/13/24 05:11 Chloride 110 mmol/L (98-107) H 01/13/24 05:11 Carbon Dioxide 28.0 mmol/L (21.0-32.0) 01/13/24 05:11 Anion Gap 3 (5-15) L 01/13/24 05:11 BUN 22 mg/dL (7-18) H 01/13/24 05:11 Creatinine 2.55 mg/dL (0.55-1.02) H 01/13/24 05:11 Est GFR (MDRD) Af Amer 24 mL/min (>60) L 01/13/24 05:11 Est GFR (MDRD) Non-Af 20 mL/min (>60) L 01/13/24 05:11 BUN/Creatinine Ratio 8.6 RATIO (10-20) L 01/13/24 05:11 Glucose 99 mg/dL (74-106) 01/13/24 05:11 Vancomycin Trough 35.2 ug/mL (5.0-15.0) H 01/12/24 03:29 Random Vancomycin 21.9 ug/mL (0.0-15.0) H 01/13/24 12:15 Microbiology Microbiology: Microbiology 01/10/24 10:02 Wound - Toe Gram Stain - Final 01/10/24 10:02 Wound - Toe Wound Culture - Preliminary Staphylococcus simulans Gram positive reji 01/10/24 10:02 Wound - Toe Anaerobic Culture - Preliminary Checking for anaerobes, further studies to follow. 01/10/24 10:07 Wound - Toe Gram Stain - Final 01/10/24 10:07 Wound - Toe Wound Culture - Preliminary Raoultella planticola 01/08/24 15:50 Blood Culture (Wb) - Anticubital Right Blood Culture - Final No growth. 01/08/24 15:35 Blood Culture (Wb) - Anticubital Left Blood Culture - Preliminary No growth in 48 hours. Dosing Weight Weight used for dosin kg Estimated Creatinine Clearance Estimated Creatinine Clearance: 21ml/min Goal Trough Goal Trough: 15-20 mcg/mL Pharmacy Plan for Drug Dosing Pharmacy Plan for Drug Dosing: Today's random level was still elevated at 21.9 (~43 hrs post dose), but down from yesterday at 27.3. Renal function worsened with Cr from 1.84 to 2.55. Patient not on any scheduled vancomycin at this time. New random level ordered for tonight 12hrs after last one. Pharmacy Service will continue to monitor and adjust dosing as required. Follow-Up Labs Follow-Up Labs: Trough: Other (random level 2.29.24 @0000) 01/13/24 1426 <Electronically signed by Kevin Adkins> Date _ Kevin [facility] Signature (if applicable): Date _ CC: ~ Signed [facility] Work Phone: 1(804) 528-358302-28-2024 Consult note Author Kevin Souza [facility] January 13, 2024 1:10pm Note Date/Time January 12, 2024 6:44pm [facility] Medical Records Department [address] [place] [address] Pharmacokinetic/Renal -Consult 01/12/24 1839 MR#: [id number] Acct: [id number] Name: BRENDA MACEDO Rep #:[id number] : 1955 68 From: Marco A hardin PCP: ANN MARIE Corona tus:ADM IN Y Location: [place] [address] Consult Antibiotic Management Pharmacy has been consulted to manage selected antibiotic: Vancomycin Type of Intervention Type of Consult: Follow-up Suspected Infection Suspected Infection: Osteomyelitis Prior Doses of Antibiotics Prior Doses of Antibiotics Received/Current Regimen: no scheduled dose at the current time but it had been 1000mg IV q12h before it was held due to a high trough Labs Labs: Sodium 141 mmol/L (136-145) 01/12/24 03:29 Potassium 4.0 mmol/L (3.5-5.1) 01/12/24 03:29 Chloride 111 mmol/L (98-107) H 01/12/24 03:29 Carbon Dioxide 28.0 mmol/L (21.0-32.0) 01/12/24 03:29 Anion Gap 2 (5-15) L 01/12/24 03:29 BUN 15 mg/dL (7-18) 01/12/24 03:29 Creatinine 1.84 mg/dL (0.55-1.02) H 01/12/24 03:29 Est GFR (MDRD) Af Amer 35 mL/min (>60) L 01/12/24 03:29 Est GFR (MDRD) Non-Af 29 mL/min (>60) L 01/12/24 03:29 BUN/Creatinine Ratio 8.2 RATIO (10-20) L 01/12/24 03:29 Glucose 100 mg/dL (74-106) 01/12/24 03:29 Vancomycin Trough 35.2 ug/mL (5.0-15.0) H 01/12/24 03:29 Random Vancomycin 27.3 ug/mL (0.0-15.0) H 01/12/24 17:23 Microbiology Microbiology: Microbiology 01/10/24 10:07 Wound - Toe Gram Stain - Final 01/10/24 10:07 Wound - Toe Wound Culture - Preliminary GNR lactose guest relations representative 01/10/24 10:02 Wound - Toe Gram Stain - Final 01/10/24 10:02 Wound - Toe Wound Culture - Preliminary Staphylococcus species 01/10/24 10:02 Wound - Toe Anaerobic Culture - Preliminary Checking for anaerobes, further studies to follow. 01/08/24 15:50 Blood Culture (Wb) - Anticubital Right Blood Culture - Final No growth. 01/08/24 15:35 Blood Culture (Wb) - Anticubital Left Blood Culture - Preliminary No growth in 48 hours. Dosing Weight Weight used for dosin kg Estimated Creatinine Clearance Estimated Creatinine Clearance: 29 ml/min Goal Trough Goal Trough: 15-20 mcg/mL Pharmacy Plan for Drug Dosing Pharmacy Plan for Drug Dosing: The vanc random level drawn at 17:23 this evening was 27.3. It is still above 20 so no dose will be ordered tonight. Of note, the patient's SCr jumped up to 1.84 today from 0.85 yesterday. Will continue to hold dosing and will order another random level to be drawn tomorrow in approximately 18 hours from this evening's level. That result will determine if dosing can be resumed tomorrow at a newly calculated dose. Pharmacy Service will continue to monitor and adjust dosing as required. Follow-Up Labs Follow-Up Labs: Trough: Vancomycin (random) Date/Time Labs Ordered Labs to be done on [date and time ordered]: 01/13/24 12:00 01/12/24 1844 <Electronically signed by Marco A jensen> Date _ Marco A Coates 01/13/24 1310 <Electronically signed by Kevin ojeda MD> Cosigner Signature (if applicable): Date Kevin Souza MD CC: ~ Signed [facility] Work Phone: 1(748) 157-143002-28-2024 Progress note Author Selvin Barrera [facility] January 13, 2024 11:43am Note Date/Time January 13, 2024 7:15am [facility] Medical Records Department [address] [place] [address] Progress Note - Hospitalist 01/13/24 0708 MR#: [id number] Acct: [id number] Name: BRENDA MACEDO Rep #:[id number] : 1955 68 From: Selvin Barrera DO PCP: ANN MARIE Corona tus:ADM IN Location: MS3 [id number] Reason for Visit Reason for Visit: Diagnoses Atherosclerosis of tling[place] & [place] arteries of extremities with gangrene, left leg (01/08/24) Disorder of arteries and arterioles, unspecified (01/08/24) Gangrene, not elsewhere classified (01/08/24) Osteomyelitis, unspecified (01/08/24) Subjective Subjective No events. Anxious for surgery. Upset when informed about MELLY and unclear certainty of angiography. Objective Data Objective Data Vital Signs: Vital Signs Temp Pulse Resp BP Pulse Ox O2 Del Method O2 Flow Rate 36.9 C 103 H 20 H 146/79 H 96 Nasal Cannula 3 01/13/24 04:08 01/13/24 06:47 01/13/24 06:47 01/13/24 04:08 01/13/24 06:47 01/13/24 06:47 01/13/24 06:47 Oxygen Flow Rate (L/min) 3 Oxygen Delivery Method Nasal Cannula Weight: 78 kg Body Mass Index (BMI) 31.4 Intake & Output: Intake and Output for Last 24 Hours 01/11/24 01/12/24 01/13/24 23:59 23:59 23:59 Intake Total 2200 / 2200 1150.0 / 1150.0 Balance 2200 / 2200 1150.0 / 1150.0 Lab / Micro Data 01/13/24 05:11 01/13/24 05:11 Labs: Laboratory Results - last 24 hr 01/12/24 17:23: Random Vancomycin 27.3 H 01/13/24 05:11: WBC 8.2, RBC 4.05 L, Hgb 11.2 L, Hct 36.5 L, MCV 90.1, MCH 27.7,MCHC 30.7 L, RDW Std Deviation 49.5 H, RDW Coeff of Alfie 15.0 H, Plt Count 231, MPV 10.4, Immature Gran % (Auto) 0.400, Neut % (Auto) 76.5 H, Lymph % (Auto) 9.9L, [place] % (Auto) 10.2 H, Eos % (Auto) 2.6, Baso % (Auto) 0.4, Absolute Neuts (auto) 6.3, Absolute Lymphs (auto) 0.81 L, Nucleated RBC % 0, Sodium 141, Potassium 3.9, Chloride 110 H, Carbon Dioxide 28.0, Anion Gap 3 L, BUN 22 H, Creatinine 2.55 H, Estim Creat Clear Calc 20.99, Est GFR (MDRD) Af Amer 24 L, Est GFR (MDRD) Non-Af 20 L, BUN/Creatinine Ratio 8.6 L, Glucose 99, Calcium 9.0 Micro: Microbiology 01/10/24 10:07 Wound - Toe Gram Stain - Final 01/10/24 10:07 Wound - Toe Wound Culture - Preliminary GNR lactose guest relations representative 01/10/24 10:02 Wound - Toe Gram Stain - Final 01/10/24 10:02 Wound - Toe Wound Culture - Preliminary Staphylococcus species 01/10/24 10:02 Wound - Toe Anaerobic Culture - Preliminary Checking for anaerobes, further studies to follow. 01/08/24 15:50 Blood Culture (Wb) - Anticubital Right Blood Culture - Final No growth. 01/08/24 15:35 Blood Culture (Wb) - Anticubital Left Blood Culture - Preliminary No growth in 48 hours. Radiography Diagnostic Testing: Radiology Impression Extremity Arterial Study 01/08/24 20:28 Interpretation Summary Right ALEIDA 0.98, mild arterial insufficiency. TBI and Doppler/PVR waveforms of the right leg normal at rest Left ALEIDA 0.44, normal. Doppler/PVR waveforms and segmental pressures reveal [id number] femoral disease. Ordering Physician: Momo Camacho Referring Physician: Carline Ashley Performed By: RAMON HUMPHREY [facility] Physical Exam Const alert and no apparent distress Resp normal respiratory effort, no retractions, no use of accessory muscles and clearto auscultation bilaterally Cardio regular rate, regular rhythm, S1 normal heart sound and S2 normal heart sound GI normal to inspection, nondistended, normoactive bowel sounds, soft to palpation,non-tender and non-distended Neuro Sensorium / Orientation: awake and alert Assessment & Plan Assessment/Plan (1) Gangrene: PLAN: Plan Left fourth toe gangrene * Left fourth toe black and gangrenous appearing on admission, per patient had been this way for 1 to 2 weeks. * Foot x-ray on admit within normal limits. * I+D performed on 01/10, evidence of necrotic bone to fourth digit with malodor and scant purulent drainage noted.4th digit on left remove removed. * Continue broad-spectrum antibiotics for now, follow-up cultures. ID consult * Vascular surgery consulted per podiatry recs. * Per podiatry, planning for second procedure for delayed closure and washout on 01/13 * Wound culture growing out Staph species, await final results and sensitivities. Peripheral vascular disease with history of stenting * follows with Dr. Song at [facility] * Vascular surgery here consulted as noted above. Continue home aspirin, st atin, cilostazol. Clopidogrel currently held. * Angiography with percutaneous mechanical thrombectomy/atherectomy tentative for MELLY * Worsening now up to 2.55 (baseline around 0.84). Did receive IVF on 01/12. * Check urine studies. Check US. Consult nephrology. * Unclear etiology at this point. I am concerned that this could be due to vancomycin. Chronic conditions: * COPD? Continue home inhalers. Incentive spirometry at bedside. * Hypertension? Continue home amlodipine. * Tobacco use? Former user. Advised continued cessation. DVT prophylaxis: SCDs CODE STATUS: Full code, verified Expected disposition: TBD Charges/Coding Visit Charges Inpatient E&M: 43487 Subs Hosp L2 01/13/24 1143 <Electronically signed by Selvin Barrera DO> Cosigner Signature (if applicable): CC: ~ Signed [facility] Work Phone: 1(462) 732-124702-28-2024 Consult note Author Lynn Enriquez [facility] January 13, 2024 11:18am Note Date/Time January 13, 2024 11:18am [facility] Medical Records Department [address] [place] [address] Consultation - Nephrology 01/13/24 1114 MR#: [id number] Acct: [id number] Name: BRENDA MACEDO Rep #:[id number] : 1955 68 From: Lynn owen MD PCP: ANN MARIE Corona tus:ADM IN Location: [place] [address] Assessment & Plan Assessment/Plan (1) MELLY (acute kidney injury): PLAN: Baseline creatinine was normal, close to baseline up until 2 days ago. Has been increasing, today up to 2.5. Denies any obstructive symptoms. No contrasted studies. She has been on vancomycin and there was a trough which waselevated. Other medications reviewed. Differential include vancomycin induced ATN versus sepsis induced ATN versus postinfectious glomerulonephritis. Plan Renal ultrasound, urine analysis, urine electrolytes, C3 level somewhat too soon for AIN HPI Consult Data Date of Consult: 01/13/24 HPI Narrative Reason for Consultation: Acute renal failure HPI Narrative: BRENDA MACEDO, is a 68 F who presents To the hospital about 4 days ago with gangrenous toe. Nephrology on consultation in view of acute renal failure. No prior kidney disease at baseline. Creatinine was at baseline up until 2 days ago. Slow but progressive increase in creatinine over the last 2 days. Currently denies any complaints other than pain at the site of gangrenous toe. Podiatry, vascular surgery, ID service is following. No contrasted studies. She says she has been voiding without any problems. Did not particularly noticehematuria but she says she has been losing a lot of urine whenever she has loosebowel movements. [facility] Medical History Arthritis Carotid stenosis, bilateral Cervical cancer Peripheral arterial occlusive disease PVD (peripheral vascular disease) Tobacco abuse Home Medications acetaminophen 650 mg tablet,extended release (Tylenol Arthritis Pain) 650 mg PO Q6H PRN Pain 06/25/18 [History Last Taken Unknown] albuterol sulfate 90 mcg/actuation aerosol inhaler 2 puff inhalation Q6H PRN shortness of breath or wheezing 01/08/24 [History Last Taken Unknown] amlodipine 5 mg tablet 5 mg PO DAILY 01/08/24 [History Last Taken Unknown] aspirin 81 mg tablet,delayed release 81 mg PO DAILY 01/08/24 [History Last Taken Unknown] budesonide-formoterol HFA 160 mcg-4.5 mcg/actuation aerosol inhaler 2 puff inhalation BID 01/08/24 [History Last Taken Unknown] cilostazol 50 mg tablet 50 mg PO DAILY 01/08/24 [History Last Taken Unknown] clopidogrel 75 mg tablet 75 mg PO DAILY 01/08/24 [History Last Taken Unknown] rosuvastatin 10 mg tablet 10 mg PO DAILY 01/08/24 [History Last Taken Unknown] Allergy/AdvReac Type Severity Reaction Status Date / Time No Known Allergies Allergy Verified 01/08/24 13:35 Family History Mother Breast cancer Surgical History S/P LEFT ARTERIOGRAM Social History Smoking Status: Former smoker alcohol intake: never ROS ROS Narrative Negative except above Physical Exam Narrative Alert awake oriented x 3 no obvious distress no pallor no icterus no JVD s1s2 no murmurs lungs clear abdomen soft no organomegaly no edema no cyanosis Lab / Micro Data 01/13/24 05:11 01/13/24 05:11 Labs: Laboratory Results - last 24 hr 01/12/24 17:23: Random Vancomycin 27.3 H 01/13/24 05:11: WBC 8.2, RBC 4.05 L, Hgb 11.2 L, Hct 36.5 L, MCV 90.1, MCH 27.7,MCHC 30.7 L, RDW Std Deviation 49.5 H, RDW Coeff of Alfie 15.0 H, Plt Count 231, MPV 10.4, Immature Gran % (Auto) 0.400, Neut % (Auto) 76.5 H, Lymph % (Auto) 9.9L, [place] % (Auto) 10.2 H, Eos % (Auto) 2.6, Baso % (Auto) 0.4, Absolute Neuts (auto) 6.3, Absolute Lymphs (auto) 0.81 L, Nucleated RBC % 0, Sodium 141, Potassium 3.9, Chloride 110 H, Carbon Dioxide 28.0, Anion Gap 3 L, BUN 22 H, Creatinine 2.55 H, Estim Creat Clear Calc 20.99, Est GFR (MDRD) Af Amer 24 L, Est GFR (MDRD) Non-Af 20 L, BUN/Creatinine Ratio 8.6 L, Glucose 99, Calcium 9.0 Micro: Microbiology 01/10/24 10:02 Wound - Toe Gram Stain - Final 01/10/24 10:02 Wound - Toe Wound Culture - Preliminary Staphylococcus simulans Gram positive reji 01/10/24 10:02 Wound - Toe Anaerobic Culture - Preliminary Checking for anaerobes, further studies to follow. 01/10/24 10:07 Wound - Toe Gram Stain - Final 01/10/24 10:07 Wound - Toe Wound Culture - Preliminary Raoultella planticola Imaging Radiology Impression Extremity Arterial Study 01/08/24 20:28 Interpretation Summary Right ALEIDA 0.98, mild arterial insufficiency. TBI and Doppler/PVR waveforms of the right leg normal at rest Left ALEIDA 0.44, normal. Doppler/PVR waveforms and segmental pressures reveal [id number] femoral disease. Ordering Physician: Momo Camacho Referring Physician: Carline Ashley Performed By: RAMON HUMPHREY [facility] 01/13/24 1118 <Electronically signed by Lynn Enriquez MD> Cosigner Signature (if applicable): CC: DPM Dr. Momo Camacho; WAITER/WAITRESS HEAD-C Carline Ashley; Dr. Armani Moses DO; Dr. Selvin Frost MD; Dr. Lynn Enriquez MD; Dr. Liz Murillo MD; Dr. Kevin Souza MD~ Signed [facility] Work Phone: 1(336) 113-798402-27-2024 Progress note Author Selvin Barrera [facility] January 12, 2024 12:45pm Note Date/Time January 12, 2024 7:07am [facility] Medical Records Department [address] [place] [address] Progress Note - Hospitalist 01/12/24 0659 MR#: [id number] Acct: [id number] Name: BRENDA MACEDO Rep #:[id number] : 1955 68 From: Selvin Barrera DO PCP: Carline Ashley, WAITER/WAITRESS HEAD-C Sta tus:ADM IN Location: [place]3 [id number] Subjective Subjective Feels well. Objective Data Objective Data Vital Signs: Vital Signs Temp Pulse Resp BP Pulse Ox O2 Del Method O2 Flow Rate 36.6 C 94 17 131/72 H 96 Nasal Cannula 2 01/12/24 03:22 01/12/24 03:22 01/12/24 03:22 01/12/24 03:22 01/12/24 03:22 01/12/24 03:25 01/12/24 03:25 Oxygen Flow Rate (L/min) 2 Oxygen Delivery Method Nasal Cannula Weight: 78 kg Body Mass Index (BMI) 31.4 Intake & Output: Intake and Output for Last 24 Hours 01/10/24 01/11/24 01/12/24 23:59 23:59 23:59 Intake Total 550 / 550 2200 / 2200 50 / 50 Balance 550 / 550 2200 / 2200 50 / 50 Lab / Micro Data 01/12/24 03:29 01/12/24 03:29 Labs: Laboratory Results - last 24 hr 01/12/24 03:29: WBC 8.1, RBC 4.04 L, Hgb 11.3 L, Hct 36.6 L, MCV 90.6, MCH 28.0,MCHC 30.9 L, RDW Std Deviation 50.1 H, RDW Coeff of Alfie 15.0 H, Plt Count 222, MPV 9.6, Immature Gran % (Auto) 0.200, Neut % (Auto) 75.4 H, Lymph % (Auto) 11.8L, Spalding % (Auto) 10.3 H, Eos % (Auto) 1.9, Baso % (Auto) 0.4, Absolute Neuts (auto) 6.1, Absolute Lymphs (auto) 0.95, Nucleated RBC % 0, Sodium 141, Potassium 4.0, Chloride 111 H, Carbon Dioxide 28.0, Anion Gap 2 L, BUN 15, Creatinine 1.84 H, Estim Creat Clear Calc 29.09, Est GFR (MDRD) Af Amer 35 L, Est GFR (MDRD) Non-Af 29 L, BUN/Creatinine Ratio 8.2 L, Glucose 100, Calcium 8.7, Vancomycin Trough 35.2 H Micro: Microbiology 01/10/24 10:07 Wound - Toe Gram Stain - Final 01/10/24 10:02 Wound - Toe Gram Stain - Final 01/10/24 10:02 Wound - Toe Wound Culture - Preliminary Gram positive organism 01/08/24 15:50 Blood Culture (Wb) - Anticubital Right Blood Culture - Final No growth. 01/08/24 15:35 Blood Culture (Wb) - Anticubital Left Blood Culture - Preliminary No growth in 48 hours. Physical Exam Const alert HEENT head/scalp atraumatic and moist oral mucous membranes Resp normal respiratory effort, no retractions, no use of accessory muscles and clearto auscultation bilaterally Cardio regular rate, regular rhythm, S1 normal heart sound and S2 normal heart sound GI normal to inspection, nondistended, normoactive bowel sounds, soft to palpation,non-tender and non-distended Extremity Extremity Narrative: LLE wrapped, did not remove. Assessment & Plan Assessment/Plan (1) Gangrene: PLAN: Plan Left fourth toe gangrene * Left fourth toe black and gangrenous appearing on admission, per patient had been this way for 1 to 2 weeks. * Foot x-ray on admit within normal limits. * I+D performed on 01/10, evidence of necrotic bone to fourth digit with malodor and scant purulent drainage noted.4th digit on left remove removed. * Continue broad-spectrum antibiotics for now, follow-up cultures. ID consult * Vascular surgery consulted per podiatry recs. * Per podiatry, planning for second procedure for delayed closure and washout on 01/13 * Wound culture growing out GPO, await final results and sensitivities. Peripheral vascular disease with history of stenting * follows with Dr. Song at [facility] * Vascular surgery here consulted as noted above. Continue home aspirin, statin, cilostazol. Clopidogrel currently held. * angio with percutaneous mechanical thrombectomy/atherectomy tentative for MELLY * Cr 1.84, up from 0.85 * Will give IVF. * Unclear etiology at this point. I am concerned that this could be due to vancomycin. Chronic conditions: * COPD? Continue home inhalers. Incentive spirometry at bedside. * Hypertension? Continue home amlodipine. * Tobacco use? Former user. Advised continued cessation. DVT prophylaxis: SCDs CODE STATUS: Full code, verified Expected disposition: TBD Charges/Coding Visit Charges Inpatient E&M: 36813 Subs Hosp L2 01/12/24 1245 <Electronically signed by Selvin Barrera DO> Cosigner Signature (if applicable): CC: ~ Signed [facility] Work Phone: 1(152) 121-788502-27-2024 Progress note Author Kevin Souza [facility] January 12, 2024 9:46am Note Date/Time January 12, 2024 9:46am [facility] Medical Records Department [address] [place] [address] Progress Note - Infect Disease 01/12/24 0945 MR#: [id number] Acct: [id number] Name: BRENDA MACEDO Rep #:[id number] : 1955 68 From: Kevin gamboa MD PCP: Carline Ashley, WAITER/WAITRESS HEADReneeC Sta tus:ADM IN Location: [place] [address]-1 Physical Exam Narrative Diarrhea improved, no fever. Const alert General Appearance: cooperative Resp normal air movement and clear to auscultation bilaterally Cardio regular rate and regular rhythm GI soft to palpation, non-tender and non-distended Skin no rashes or lesions noted Skin Narrative: foot wrapped ID ID: Route of nutrition/ use of supplements: [] Nutritional Intake: [] IV Site: [] Morse Catheter: [] Assessment & Plan Assessment/Plan (1) Osteomyelitis: QUALIFIERS: Osteomyelitis location: foot Laterality: left (2) Gangrene: PLAN: on vanc/zosyn, taken to OR 01/10/[address] Camacho for L 4th toe amputation. Surg cx showing rare staph so far. New MELLY, will change zosyn to ceftriaxone/flagyl. Will follow (3) Peripheral arterial occlusive disease: 01/12/24 0946 <Electronically signed by Kevin Souza MD> Cosigner Signature (if applicable): CC: ~ Signed [facility] Work Phone: 1(243) 289-980702-27-2024 Progress note Author Momo Camacho [facility] January 12, 2024 7:46am Note Date/Time January 12, 2024 7:46am [facility] Medical Records Department [address] [place] [address] Progress Note - Surgery 01/12/24 0740 MR#: [id number] Acct: [id number] Name: BRENDA MACEDO Rep #:[id number] : 1955 68 From: Momo KING PCP: Carline Ashley, ANN MARIE Edge tus:ADM IN Location: MS3 NY900-7 Subjective Subjective Mrs. Macedo is a 68-year-old female seen at bedside today for left lower extremity dressing changes. Patient states that she is recovering well. She denies any pain to the area except with dressing changes. She has met with vascular surgery, planning intervention. No acute events overnight. She deniestrauma. Denies constitutional symptoms. No other pedal complaints at this time. Objective Data Objective Data Vital Signs: Vital Signs Temp Pulse Resp BP Pulse Ox O2 Del Method O2 Flow Rate 97.8 F 94 17 131/72 H 96 Nasal Cannula 2 01/12/24 03:22 01/12/24 03:22 01/12/24 03:22 01/12/24 03:22 01/12/24 03:22 01/12/24 03:25 01/12/24 03:25 Oxygen Flow Rate (L/min) 2 Oxygen Delivery Method Nasal Cannula Weight: 78 kg Body Mass Index (BMI) 31.4 Intake & Output: Intake and Output for Last 24 Hours 01/10/24 01/11/24 01/12/24 23:59 23:59 23:59 Intake Total 550 / 550 2200 / 2200 50 / 50 Balance 550 / 550 2200 / 2200 50 / 50 Lab / Micro Data 01/12/24 03:29 01/12/24 03:29 Labs: Laboratory Results - last 24 hr 01/12/24 03:29: WBC 8.1, RBC 4.04 L, Hgb 11.3 L, Hct 36.6 L, MCV 90.6, MCH 28.0,MCHC 30.9 L, RDW Std Deviation 50.1 H, RDW Coeff of Alfie 15.0 H, Plt Count 222, MPV 9.6, Immature Gran % (Auto) 0.200, Neut % (Auto) 75.4 H, Lymph % (Auto) 11.8L, Spalding % (Auto) 10.3 H, Eos % (Auto) 1.9, Baso % (Auto) 0.4, Absolute Neuts (auto) 6.1, Absolute Lymphs (auto) 0.95, Nucleated RBC % 0, Sodium 141, Potassium 4.0, Chloride 111 H, Carbon Dioxide 28.0, Anion Gap 2 L, BUN 15, Creatinine 1.84 H, Estim Creat Clear Calc 29.09, Est GFR (MDRD) Af Amer 35 L, Est GFR (MDRD) Non-Af 29 L, BUN/Creatinine Ratio 8.2 L, Glucose 100, Calcium 8.7, Vancomycin Trough 35.2 H Micro: Microbiology 01/10/24 10:07 Wound - Toe Gram Stain - Final 01/10/24 10:02 Wound - Toe Gram Stain - Final 01/10/24 10:02 Wound - Toe Wound Culture - Preliminary Gram positive organism 01/08/24 15:50 Blood Culture (Wb) - Anticubital Right Blood Culture - Final No growth. 01/08/24 15:35 Blood Culture (Wb) - Anticubital Left Blood Culture - Preliminary No growth in 48 hours. Physical Exam Narrative Neurovascular status is unchanged. Full-thickness incision appreciated to the level of the fourth metatarsal of the left foot. Wound base is granular nature with sanguinous drainage. No malodor. Positive probe to bone secondary to surgical leg changes. Moderate palpatory tenderness is appreciated. No pain with calf compression. Assessment & Plan Assessment/Plan (1) Osteomyelitis: QUALIFIERS: Osteomyelitis location: foot Laterality: left PLAN: Patient was examined and evaluated. All findings were discussed with the patient. All questions were answered to the patient satisfaction. The patient's left foot incision was dressed with quarter inch iodoform packing,dry sterile dressing and a single layer Cobb compression bandage was donned to the left lower extremity. Please keep dressing clean dry and intact. Will plan for washout and delayed primary closure, left foot, 01/13/2024 in the afternoon. Please keep patient n.p.o. midnight tonight. Sx Cx: gm(+) organism WBC: 6.8 -> 8.1 Medicine: On board, medical management Infectious disease: On board, IV antibiotics vancomycin and Zosyn Vascular surgery: On board, planning for angio with percutaneous mechanical thrombectomy/arthrectomy, tentative planning for Please reach out to Dr. Camacho with any questions or concerns. Podiatry will continue to follow while patient is in house. Thank you for letting me be involved in the patient care. 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, left le01/12/24 0746 <Electronically signed by Momo Camacho DPM> Cosigner Signature (if applicable): CC: ~ Signed [facility] Work Phone: 1(691) 514-402502-27-2024 Consult note Author Rayshawn Dave [facility] January 12, 2024 5:38am Note Date/Time January 12, 2024 5:39am [facility] Medical Records Department [address] [place] [address] Pharmacokinetic/Renal -Consult 01/12/24 0538 MR#: [id number] Acct: [id number] Name: BRENDA MACEDO Rep #:[id number] : 1955 68 From: Rayshawn Irby od PCP: Carline Ashley, WAITER/WAITRESS HEAD-C Sta tus:ADM IN Y Location: [place] [address] Consult Antibiotic Management Pharmacy has been consulted to manage selected antibiotic: Vancomycin Type of Intervention Type of Consult: Follow-up Labs Labs: Sodium 141 mmol/L (136-145) 01/12/24 03:29 Potassium 4.0 mmol/L (3.5-5.1) 01/12/24 03:29 Chloride 111 mmol/L (98-107) H 01/12/24 03:29 Carbon Dioxide 28.0 mmol/L (21.0-32.0) 01/12/24 03:29 Anion Gap 2 (5-15) L 01/12/24 03:29 BUN 15 mg/dL (7-18) 01/12/24 03:29 Creatinine 1.84 mg/dL (0.55-1.02) H 01/12/24 03:29 Est GFR (MDRD) Af Amer 35 mL/min (>60) L 01/12/24 03:29 Est GFR (MDRD) Non-Af 29 mL/min (>60) L 01/12/24 03:29 BUN/Creatinine Ratio 8.2 RATIO (10-20) L 01/12/24 03:29 Glucose 100 mg/dL (74-106) 01/12/24 03:29 Vancomycin Trough 35.2 ug/mL (5.0-15.0) H 01/12/24 03:29 Microbiology Microbiology: Microbiology 01/10/24 10:07 Wound - Toe Gram Stain - Final 01/10/24 10:02 Wound - Toe Gram Stain - Final 01/10/24 10:02 Wound - Toe Wound Culture - Preliminary Gram positive organism 01/08/24 15:50 Blood Culture (Wb) - Anticubital Right Blood Culture - Final No growth. 01/08/24 15:35 Blood Culture (Wb) - Anticubital Left Blood Culture - Preliminary No growth in 48 hours. Pharmacy Plan for Drug Dosing Pharmacy Plan for Drug Dosing: Pharmacy Service will continue to monitor and adjust dosing as required. TROUGH 35.2 @ 10 HOURS. HOLD DOSE AND DRAW RANDOM LEVEL IN 12 HOURS Follow-Up Labs Follow-Up Labs: Trough: Vancomycin Date/Time Labs Ordered Labs to be done on [date and time ordered]: 01/12 @ 1730 01/12/24 0538 <Electronically signed by Rayshawn franklin> Date _ Rayshawn Will Signature (if applicable): Date CC: ~ Signed [facility] Work Phone: 1(171) 931-588702-26-2024 Consult note Author Selvin Frost [facility] January 11, 2024 3:39pm Note Date/Time January 11, 2024 3:35pm [facility] Medical Records Department [address] [place] [address] Consultation - Surgical 01/11/24 1531 MR#: [id number] Acct: [id number] Name: BRENDA MACEDO Rep #:[id number] : 1955 68 From: Selvin Frost MD PCP: ANN MARIE Corona Sta tus:ADM IN Location: MS3 [id number] Assessment & Plan Assessment/Plan (1) 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 Has history of prior bilateral common/external iliac artery stents done for claudication in 2018. Stent placement resolved her symptoms. Claudication returnedabout 2-3 months ago and later digit pain/gangrene. She had outpatient imaging which suggested arterial insufficiency and CTA revealed totally occluded common and external iliac stents. [facility] Medical History Arthritis Carotid stenosis, bilateral Cervical cancer Peripheral arterial occlusive disease PVD (peripheral vascular disease) Tobacco abuse Home Medications acetaminophen 650 mg tablet,extended release (Tylenol Arthritis Pain) 650 mg PO Q6H PRN Pain 06/25/18 [History Last Taken Unknown] albuterol sulfate 90 mcg/actuation aerosol inhaler 2 puff inhalation Q6H PRN shortness of breath or wheezing 01/08/24 [History Last Taken Unknown] amlodipine 5 mg tablet 5 mg PO DAILY 01/08/24 [History Last Taken Unknown] aspirin 81 mg tablet,delayed release 81 mg PO DAILY 01/08/24 [History Last Taken Unknown] budesonide-formoterol HFA 160 mcg-4.5 mcg/actuation aerosol inhaler 2 puff inhalation BID 01/08/24 [History Last Taken Unknown] cilostazol 50 mg tablet 50 mg PO DAILY 01/08/24 [History Last Taken Unknown] clopidogrel 75 mg tablet 75 mg PO DAILY 01/08/24 [History Last Taken Unknown] rosuvastatin 10 mg tablet 10 mg PO DAILY 01/08/24 [History Last Taken Unknown] Allergy/AdvReac Type Severity Reaction Status Date / Time No Known Allergies Allergy Verified 01/08/24 13:35 Family History Mother Breast cancer Surgical History S/P LEFT ARTERIOGRAM Social History Smoking Status: Former smoker alcohol intake: never ROS Constitutional Constitutional: Denies chills, fever(s), frequent falls, lethargy or weakness Eyes Eyes: Denies blind spots, change in vision or loss of vision ENT HEENT: Denies bleeding gums, hoarseness or sore throat Cardiovascular Cardiovascular: Denies abdominal pain, bluish discoloration of hand/feet, chest pain with activity, claudication, cold extremities, cyanosis, dyspnea on exertion, erythema on extremities, irregular heart rhythm, leg edema, leg ulcers, numbness in extremities or weakness in extremities Respiratory/Chest Respiratory/Chest: Denies cough, excessive phlegm production, shortness of breath at rest, shortness of breath with exertion or wheezing Gastrointestinal Gastrointestinal: Denies anorexia, change in stool character, constipation, diarrhea, melena or rectal bleeding Genitourinary Genitourinary: Denies dysuria or hematuria Musculoskeletal Musculoskeletal: Denies abnormal gait Integumentary Integumentary: Reports wounds; Denies erythema or non-healing lesions Neurologic Neurologic: Denies abnormal speech, focal weakness, headache(s), loss of vision,numbness, paresthesias or sensory deficit Hematologic/Lymphatic Hematologic/Lymphatic: Denies easy bleeding, easy bruising or lymphadenopathy Physical Exam Const alert, oriented x3, no apparent distress and healthy appearing General Appearance: cooperative; Negative for combative or lethargic Orientation / Consciousness: awake Exam Limitations: no limitations HEENT Head and Scalp: normocephalic and atraumatic Eyes EOMs intact bilaterally General Eye: normal appearance of both eyes Neck full ROM, no lymphadenopathy and thyroid normal General: trachea midline; Negative for lymphadenopathy or tenderness Thyroid: thyroid normal Lymph Lymphatic: Negative for no lymphadenopathy noted Resp normal respiratory effort and no use of accessory muscles Effort and Inspection: Negative for labored, stridor or audible wheezes Cardio regular rate and regular rhythm Back/Spine Cervical Spine: cervical ROM normal Extremity full ROM, normal capillary refill and no clubbing, cyanosis or edema Skin no rashes or lesions noted Neuro oriented x3, CN's II-XII intact bilaterally, no focal motor deficits and no sensory deficits noted Psych thought process normal, cooperative, affect normal, speech normal and activity/motor behavior normal Lab / Micro Data 01/11/24 04:20 01/11/24 04:20 Labs: Laboratory Results - last 24 hr 01/11/24 04:20: WBC 6.8, RBC 4.17 L, Hgb 11.6 L, Hct 38.0, MCV 91.1, MCH 27.8, MCHC 30.5 L, RDW Std Deviation 51.2 H, RDW Coeff of Alfie 15.2 H, Plt Count 242, MPV 10.0, Sodium 142, Potassium 3.4 L, Chloride 109 H, Carbon Dioxide 31.0, Anion Gap 2 L, BUN 10, Creatinine 0.85, Estim Creat Clear Calc 62.96, Est GFR (MDRD) Af Amer 86, Est GFR (MDRD) Non-Af 71, BUN/Creatinine Ratio 11.7, Glucose 90, Calcium 8.7 Micro: Microbiology 01/10/24 10:07 Wound - Toe Gram Stain - Final 01/10/24 10:02 Wound - Toe Gram Stain - Final 01/10/24 10:02 Wound - Toe Wound Culture - Preliminary Gram positive organism 01/08/24 15:50 Blood Culture (Wb) - Anticubital Right Blood Culture - Final No growth. Charges/Coding Visit Charges Inpatient E&M: 85982 Init Hosp L3 01/11/24 1539 <Electronically signed by Selvin Frost MD> Cosigner Signature (if applicable): CC: DPM Dr. Momo Camacho; WAITER/WAITRESS HEAD-C Carline Ashley; Dr. Armani Moses DO; Dr. Selvin Frost MD; Dr. Liz Murillo MD; Dr. Kevin Souza MD~ Signed [facility] Work Phone: 1(183) 707-692202-26-2024 Progress note Author Selvin Barrera [facility] January 11, 2024 11:37am Note Date/Time January 11, 2024 7:30am [facility] Medical Records Department [facility] [address] [address] Progress Note - Hospitalist 01/11/24 0723 MR#: [id number] Acct: [id number] Name: BRENDA MACEDO Rep #:[id number] : 1955 68 From: Selvin Barrera DO PCP: Carline Ashley, WAITER/WAITRESS HEAD-C Sta tus:ADM IN Location: [place] [id number] Reason for Visit Reason for Visit: Diagnoses Disorder of arteries and arterioles, unspecified (01/08/24) Gangrene, not elsewhere classified (01/08/24) Osteomyelitis, unspecified (01/08/24) Subjective Subjective Feels weel. Objective Data Objective Data Vital Signs: Vital Signs Temp Pulse Resp BP Pulse Ox O2 Del Method O2 Flow Rate 36.6 C 73 18 118/75 93 Nasal Cannula 3 01/11/24 06:26 01/11/24 06:36 01/11/24 06:36 01/11/24 06:26 01/11/24 06:36 01/11/24 06:36 01/11/24 06:36 Oxygen Flow Rate (L/min) 3 Oxygen Delivery Method Nasal Cannula Weight: 78 kg Body Mass Index (BMI) 31.4 Intake & Output: Intake and Output for Last 24 Hours 01/09/24 01/10/24 01/11/24 23:59 23:59 23:59 Intake Total 1974 550 / 550 250 / 250 Balance 1974 550 / 550 250 / 250 Lab / Micro Data 01/11/24 04:20 01/11/24 04:20 Labs: Laboratory Results - last 24 hr 01/11/24 04:20: WBC 6.8, RBC 4.17 L, Hgb 11.6 L, Hct 38.0, MCV 91.1, MCH 27.8, MCHC 30.5 L, RDW Std Deviation 51.2 H, RDW Coeff of Alfie 15.2 H, Plt Count 242, MPV 10.0, Sodium 142, Potassium 3.4 L, Chloride 109 H, Carbon Dioxide 31.0, Anion Gap 2 L, BUN 10, Creatinine 0.85, Estim Creat Clear Calc 62.96, Est GFR (MDRD) Af Amer 86, Est GFR (MDRD) Non-Af 71, BUN/Creatinine Ratio 11.7, Glucose 90, Calcium 8.7 Micro: Microbiology 01/08/24 15:35 Blood Culture (Wb) - Anticubital Left Blood Culture - Preliminary No growth in 48 hours. Radiography Diagnostic Testing: Radiology Impression Toe X-Ray 01/10/24 06:45 IMPRESSION: Fluoroscopy during amputation of the fourth digit. Electronically Signed: Carline Patel MD at 13:41 EST , Physical Exam Const alert and no apparent distress HEENT head/scalp atraumatic and moist oral mucous membranes Resp normal respiratory effort, no retractions, no use of accessory muscles and clearto auscultation bilaterally Cardio regular rate, regular rhythm, S1 normal heart sound and S2 normal heart sound GI normal to inspection, nondistended, normoactive bowel sounds Extremity Extremity Narrative: left foot wrapped. did not remove. Assessment & Plan Assessment/Plan (1) Gangrene: PLAN: Plan Left fourth toe gangrene * Left fourth toe black and gangrenous appearing on admission, per patient had been this way for 1 to 2 weeks. * Foot x-ray on admit within normal limits. * I+D performed on 01/10, evidence of necrotic bone to fourth digit with malodor and scant purulent drainage noted.4th digit on left remove removed. * Continue broad-spectrum antibiotics for now, follow-up cultures. ID consult * Vascular surgery consulted per podiatry recs. * Per podiatry, planning for second procedure for delayed closure and washout on either Thursday or Thursday of this coming week. Peripheral vascular disease with history of stenting * follows with Dr. Song at [facility] * Vascular surgery here consulted as noted above. Continue home aspirin, statin, cilostazol. Clopidogrel currently held. Chronic conditions: * COPD? Continue home inhalers. Incentive spirometry at bedside. * Hypertension? Continue home amlodipine. * Tobacco use? Former user. Advised continued cessation. DVT prophylaxis: SCDs CODE STATUS: Full code, verified Expected disposition: TBD Charges/Coding Visit Charges Inpatient E&M: 18435 Subs Hosp L2 01/11/24 1137 <Electronically signed by Selvin Barrera DO> Cosigner Signature (if applicable): CC: ~ Signed [facility] Work Phone: 1(245) 542-986502-26-2024 Consult note Author Kevin Souza [facility] January 11, 2024 9:56am Note Date/Time January 11, 2024 9:56am [facility] Medical Records Department [address] [place] [address] Consultation - Infectious Dx 01/11/24 0953 MR#: [id number] Acct: [id number] Name: BRENDA MACEDO Rep #:[id number] : 1955 68 From: Kevin gamboa MD PCP: Carline Ashley, WAITER/WAITRESS HEADLayla Edge tus:ADM IN Location: [place]3 [id number] Assessment & Plan Assessment/Plan (1) Osteomyelitis: QUALIFIERS: Osteomyelitis location: foot Laterality: left (2) Gangrene: PLAN: on vanc/zosyn, taken to OR 01/10/[address] Camacho for L 4th toe amputation. Surg cx pending. Will follow, thank you (3) Peripheral arterial occlusive disease: HPI Consult Data Date of Consult: 01/11/24 HPI Narrative Reason for Consultation: osteo HPI Narrative: BRENDA MACEDO, is a 68 F with h/o PAD, reports about a month ago L 4th toe started turning black. Had some mild pain, no fever. Sx worsened, developed purulent drainage. Sent to ED, admitted on vanc/zosyn, taken to OR 01/10/[address] Camacho for L 4th toe amputation. Feeling ok today, no n/v/d. Full ROS performed and neg except as noted above. [facility] Medical History Arthritis Carotid stenosis, bilateral Cervical cancer Peripheral arterial occlusive disease PVD (peripheral vascular disease) Tobacco abuse Home Medications acetaminophen 650 mg tablet,extended release (Tylenol Arthritis Pain) 650 mg PO Q6H PRN Pain 06/25/18 [History Last Taken Unknown] albuterol sulfate 90 mcg/actuation aerosol inhaler 2 puff inhalation Q6H PRN shortness of breath or wheezing 01/08/24 [History Last Taken Unknown] amlodipine 5 mg tablet 5 mg PO DAILY 01/08/24 [History Last Taken Unknown] aspirin 81 mg tablet,delayed release 81 mg PO DAILY 01/08/24 [History Last Taken Unknown] budesonide-formoterol HFA 160 mcg-4.5 mcg/actuation aerosol inhaler 2 puff inhalation BID 01/08/24 [History Last Taken Unknown] cilostazol 50 mg tablet 50 mg PO DAILY 01/08/24 [History Last Taken Unknown] clopidogrel 75 mg tablet 75 mg PO DAILY 01/08/24 [History Last Taken Unknown] rosuvastatin 10 mg tablet 10 mg PO DAILY 01/08/24 [History Last Taken Unknown] Allergy/AdvReac Type Severity Reaction Status Date / Time No Known Allergies Allergy Verified 01/08/24 13:35 Family History Mother Breast cancer Surgical History S/P LEFT ARTERIOGRAM Social History Smoking Status: Former smoker alcohol intake: never Physical Exam Const alert, oriented x3 and no apparent distress General Appearance: cooperative HEENT normocephalic and head/scalp atraumatic Neck supple and No nodes Resp normal air movement and clear to auscultation bilaterally Auscultation: diminished lung sounds Cardio regular rate and regular rhythm GI soft to palpation, non-tender and non-distended Extremity General Extremity: edema Skin Skin Narrative: Foot wrapped, reviewed photos Neuro CN's II-XII intact bilaterally Lab / Micro Data Attestation: I reviewed the patient's lab results. 01/11/24 04:20 01/11/24 04:20 Labs: Laboratory Results - last 24 hr 01/11/24 04:20: WBC 6.8, RBC 4.17 L, Hgb 11.6 L, Hct 38.0, MCV 91.1, MCH 27.8, MCHC 30.5 L, RDW Std Deviation 51.2 H, RDW Coeff of Alfie 15.2 H, Plt Count 242, MPV 10.0, Sodium 142, Potassium 3.4 L, Chloride 109 H, Carbon Dioxide 31.0, Anion Gap 2 L, BUN 10, Creatinine 0.85, Estim Creat Clear Calc 62.96, Est GFR (MDRD) Af Amer 86, Est GFR (MDRD) Non-Af 71, BUN/Creatinine Ratio 11.7, Glucose 90, Calcium 8.7 Micro: Microbiology 01/08/24 15:50 Blood Culture (Wb) - Anticubital Right Blood Culture - Final No growth. 01/08/24 15:35 Blood Culture (Wb) - Anticubital Left Blood Culture - Preliminary No growth in 48 hours. Imaging Radiology Impression Toe X-Ray 01/10/24 06:45 IMPRESSION: Fluoroscopy during amputation of the fourth digit. Electronically Signed: Carline Patel MD at 13:41 EST , 01/11/24 0956 <Electronically signed by Kevin Souza MD> Cosigner Signature (if applicable): CC: DPEfrem Camacho; ANN MARIE Ashley; Dr. Armani Moses DO; Dr. Selvin Frost MD; Dr. Liz Murillo MD; Dr. Kevin Souza MD~ Signed [facility] Work Phone: 1(312) 521-534202-25-2024 Procedure [facility] 01-10-2024 Progress note Author Armani Moses [facility] January 10, 2024 1:36pm Note Date/Time January 10, 2024 12:06pm [facility] Medical Records Department [address] [place] [address] Progress Note - Hospitalist 01/10/24 1205 MR#: [id number] Acct: [id number] Name: BRENDA MACEDO Rep #:[id number] : 1955 68 From: Armani lyels DO PCP: ANN MARIE Corona Sta tus:ADM IN [id number] Reason for Visit Reason for Visit: Diagnoses Disorder of arteries and arterioles, unspecified (01/08/24) Gangrene, not elsewhere classified (01/08/24) Osteomyelitis, unspecified (01/08/24) Subjective Subjective Patient seen early this afternoon at bedside after returning from her procedure this morning, 2 family members at bedside. Patient was laying comfortably in bed, appeared mildly somnolent due to lingering effects of anesthesia but otherwise was feeling well. Was satting well on 3 to 4 L nasal cannula, no increased work of breathing noted. Her left foot was wrapped with Roland wrap fromthe mid leg down to just above the toe, with a separate wrap over the fourth toe. Patient denied any pain or discomfort of the toe. She and nursing staff did note that she tried to get up out of bed to use bedside commode but had someleakage from the foot wound, so she has been in bed since then. Has had no further leakage from the wound. Otherwise denies any acute concerns at this time. Objective Data Objective Data Vital Signs: Vital Signs Temp Pulse Resp BP Pulse Ox O2 Del Method O2 Flow Rate 98.9 F 99 20 H 153/83 H 95 Nasal Cannula 4 01/10/24 10:58 01/10/24 10:58 01/10/24 10:58 01/10/24 10:58 01/10/24 10:58 01/10/24 10:58 01/10/24 10:58 Oxygen Flow Rate (L/min) 4 Oxygen Delivery Method Nasal Cannula Weight: 78 kg Body Mass Index (BMI) 31.4 Intake & Output: Intake and Output for Last 24 Hours 01/08/24 01/09/24 01/10/24 23:59 23:59 23:59 Intake Total 325 / 325 1974 300 / 300 Balance 325 / 325 1974 300 / 300 Lab / Micro Data 01/09/24 06:00 01/09/24 06:00 Labs: Laboratory Results - last 24 hr 01/10/24 03:20: Vancomycin Trough 17.7 H Micro: Microbiology 01/08/24 15:35 Blood Culture (Wb) - Anticubital Left Blood Culture - Preliminary No growth in 48 hours. Physical Exam Const alert, oriented x3 and no apparent distress Constitutional Narrative: Elderly female, obese, sitting up comfortably in bed, mildly somnolent but otherwise conversing normally and in no acute distress. General Appearance: cooperative and comfortable HEENT normocephalic, head/scalp atraumatic, hearing grossly normal bilaterally and nasal mucous membranes and turbinates normal Eyes PERRL, EOMs intact bilaterally and conjunctivae normal Neck full ROM, no lymphadenopathy and supple Lymph Lymphatic: no lymphadenopathy noted Chest inspection of chest normal Resp normal respiratory effort and no use of accessory muscles Resp Narrative: Breathing comfortably on 3 to 4 L nasal cannula. Mildly decreased breath soundsbilaterally throughout, similar to previous. No wheezing or crackles noted. Cardio regular rate, regular rhythm, no murmurs and peripheral pulses 2+ throughout GI normal to inspection, nondistended, normoactive bowel sounds, soft to palpation,non-tender and non-distended Back/Spine normal ROM Extremity no pedal edema Extremity Narrative: Roland wrap from left mid calf down to base of toes, with separate wrap over the left fourth toe. Neuro no focal motor deficits and no sensory deficits noted Speech: speech normal Psych mental status grossly normal Assessment & Plan Assessment/Plan (1) Gangrene: PLAN: Plan Patient is a 68-year-old female who presented [facility] ED on 01/08/2024 with worsening left toe wound. 1. Left fourth toe gangrene Left fourth toe black and gangrenous appearing on admission, per patient had been this way for 1 to 2 weeks. Foot x-ray on admit within normal limits. Hemodynamically stable, afebrile since admission. No leukocytosis. ? Podiatry following. S/p procedure with podiatry on 01/10, evidence of necroticbone to fourth digit with malodor and scant purulent drainage noted; incision and drainage performed with soft tissue cultures and bone cultures obtained. Continue broad-spectrum antibiotics for now, follow-up cultures. Vascular surgery consulted per podiatry recs. Vascular studies ordered on 01/09, will likely be completed tomorrow. Wound care following. Continue scheduled Tylenolwith as needed oxycodone and morphine for pain management. Per podiatry, planning for second procedure for delayed closure and washout on either Thursday or Thursday of this coming week. 2. Peripheral vascular disease with history of stenting ? Follows with Dr. Song at [facility], has follow-up with him for some time. Wasapparently supposed to have a procedure with him sometime soon. Vascular surgery here consulted as noted above. Continue home aspirin, statin, cilostazol. Last dose of Plavix on 01/09, holding for now, will restart at discretion of podiatry and vascular surgery. 3. COPD ? Continue home inhalers. Incentive spirometry at bedside. 4. Hypertension ? Continue home amlodipine. 5. Tobacco use ? Former user. Advised continued cessation. DVT prophylaxis: SCDs CODE STATUS: Full code, verified Expected disposition: TBD Total clinical time spent by myself addressing the patient's medical issues, reviewing all the data, and collaborating with patient's care team: 35 minutes. Charges/Coding Visit Charges Inpatient E&M: 57267 Subs Hosp L2 01/10/24 1336 <Electronically signed by Armani Moses DO> Cosigner Signature (if applicable): CC: ~ Signed [facility] Work Phone: 1(913) 394-559802-25-2024 Consult note Author Rayshawn Dave [facility] January 10, 2024 4:02am Note Date/Time January 10, 2024 4:02am [facility] Medical Records Department [address] [place] [address] Pharmacokinetic/Renal -Consult 01/10/24 0401 MR#: [id number] Acct: [id number] Name: BRENDA MACEDO Rep #:[id number] : 1955 68 From: Rayshawn Irby od PCP: Carline Ashley, WAITER/WAITRESS HEADReneeC Kely tus:ADM IN Location: [place] [address] Consult Antibiotic Management Pharmacy has been consulted to manage selected antibiotic: Vancomycin Type of Intervention Type of Consult: Follow-up Labs Labs: Sodium 141 mmol/L (136-145) 01/09/24 06:00 Potassium 4.0 mmol/L (3.5-5.1) 01/09/24 06:00 Chloride 109 mmol/L (98-107) H 01/09/24 06:00 Carbon Dioxide 29.0 mmol/L (21.0-32.0) 01/09/24 06:00 Anion Gap 3 (5-15) L 01/09/24 06:00 BUN 9 mg/dL (7-18) 01/09/24 06:00 Creatinine 0.66 mg/dL (0.55-1.02) 01/09/24 06:00 Est GFR (MDRD) Af Amer 114 mL/min (>60) 01/09/24 06:00 Est GFR (MDRD) Non-Af 94 mL/min (>60) 01/09/24 06:00 BUN/Creatinine Ratio 13.6 RATIO (10-20) 01/09/24 06:00 Glucose 84 mg/dL (74-106) 01/09/24 06:00 Vancomycin Trough 17.7 ug/mL (5.0-15.0) H 01/10/24 03:20 Goal Trough Goal Trough: 15-20 mcg/mL Pharmacy Plan for Drug Dosing Pharmacy Plan for Drug Dosing: Pharmacy Service will continue to monitor and adjust dosing as required. TROUGH 17.7 @ 11.5 HOURS. NO CHANGES, FOLLOW UP TROUGH IN 2 DAYS Follow-Up Labs Follow-Up Labs: Trough: Vancomycin Date/Time Labs Ordered Labs to be done on [date and time ordered]: 01/12 @ 0330 01/10/24 0402 <Electronically signed by Rayshawn franklin> Date _ Rayshawn Dave Cosignaline Signature (if applicable): Date CC: ~ Signed [facility] Work Phone: 1(134) 102-549902-24-2024 Progress note Author Armani [facility] January 09, 2024 3:39pm Note Date/Time January 09, 2024 1:02pm [facility] Medical Records Department [address] [place] [address] Progress Note - Hospitalist 01/09/24 1302 MR#: [id number] Acct: [id number] Name: MACEDOBRENDA S Rep #:[id number] : 1955 68 From: Armani lyles DO PCP: ANN MARIE Corona Sta tus:ADM IN Location: OR3 [id number] Reason for Visit Reason for Visit: Diagnoses Disorder of arteries and arterioles, unspecified (01/08/24) Gangrene, not elsewhere classified (01/08/24) Osteomyelitis, unspecified (01/08/24) Subjective Subjective Patient seen at bedside, multiple family numbers present. Patient reports 6-8 out of 10 left toe pain this morning, similar to yesterday. States the pain medication has been moderately helpful in controlling the pain. Denies any other acute concerns this morning. Objective Data Objective Data Vital Signs: Vital Signs Temp Pulse Resp BP Pulse Ox O2 Del Method O2 Flow Rate 98.0 F 89 18 127/62 H 92 Nasal Cannula 2 01/09/24 08:13 01/09/24 08:13 01/09/24 08:13 01/09/24 08:13 01/09/24 08:13 01/09/24 08:23 01/09/24 08:23 Oxygen Flow Rate (L/min) 2 Oxygen Delivery Method Nasal Cannula Weight: 78 kg Body Mass Index (BMI) 31.4 Intake & Output: Intake and Output for Last 24 Hours 01/07/24 01/08/24 01/09/24 23:59 23:59 23:59 Intake Total 325 / 325 925 / 925 Balance 325 / 325 925 / 925 Lab / Micro Data 01/09/24 06:00 01/09/24 06:00 Labs: Laboratory Results - last 24 hr 01/08/24 15:35: WBC 8.0, RBC 4.90, Hgb 13.4, Hct 43.4, MCV 88.6, MCH 27.3, MCHC 30.9 L, RDW Std Deviation 48.0 H, RDW Coeff of Alfie 14.8 H, Plt Count 327, MPV 9.9, Immature Gran % (Auto) 0.400, Neut % (Auto) 73.6 H, Lymph % (Auto) 17.2 L, Spalding % (Auto) 7.0, Eos % (Auto) 1.0, Baso % (Auto) 0.8, Absolute Neuts (auto) 5.9, Absolute Lymphs (auto) 1.37, Nucleated RBC % 0, ESR 27, Sodium 139, Potassium 3.7, Chloride 106, Carbon Dioxide 30.0, Anion Gap 3 L, BUN 11, Creatinine 0.67, Estim Creat Clear Calc 66.90, Est GFR (MDRD) Af Amer 113, Est GFR (MDRD) Non-Af 94, BUN/Creatinine Ratio 16.4, Glucose 84, Calcium 9.4, C-React Prot Ext Range 3.94 H 01/09/24 06:00: WBC 7.0, RBC 4.58, Hgb 12.7, Hct 41.4, MCV 90.4, MCH 27.7, MCHC 30.7 L, RDW Std Deviation 49.4 H, RDW Coeff of Alfie 14.9 H, Plt Count 315, MPV 10.0, Immature Gran % (Auto) 0.100, Neut % (Auto) 65.7, Lymph % (Auto) 21.3, Spalding % (Auto) 10.2 H, Eos % (Auto) 2.0, Baso % (Auto) 0.7, Absolute Neuts (auto)4.6, Absolute Lymphs (auto) 1.49, Nucleated RBC % 0, PT 13.5, INR 1.0, Sodium 141, Potassium 4.0, Chloride 109 H, Carbon Dioxide 29.0, Anion Gap 3 L, BUN 9, Creatinine 0.66, Estim Creat Clear Calc 66.90, Est GFR (MDRD) Af Amer 114, Est GFR (MDRD) Non-Af 94, BUN/Creatinine Ratio 13.6, Glucose 84, Calcium 9.1, Triglycerides 116, Cholesterol 150, LDL Cholesterol 89, VLDL Cholesterol 23, HDLCholesterol 38 L Radiography Diagnostic Testing: Radiology Impression Foot X-Ray 01/08/24 15:24 IMPRESSION: Normal x-ray examination of the foot. Electronically Signed: Latrell Mac MD at 16:19 EST Reading Location ID and State: [address] [place] [address] Tel , Service support , Chest X-Ray 01/08/24 15:50 IMPRESSION: COPD. No acute disease. Electronically Signed: Latrell Mac MD at 16:27 EST Reading Location ID and State: [facility] [place] Tel , Service support , Physical Exam Const alert, oriented x3 and no apparent distress Constitutional Narrative: Obese. General Appearance: cooperative and comfortable HEENT normocephalic, head/scalp atraumatic, hearing grossly normal bilaterally and nasal mucous membranes and turbinates normal Eyes PERRL, EOMs intact bilaterally and conjunctivae normal Neck full ROM, no lymphadenopathy and supple Lymph Lymphatic: no lymphadenopathy noted Chest inspection of chest normal Resp normal respiratory effort and no use of accessory muscles Resp Narrative: Mildly decreased breath sounds throughout bilaterally, no wheezing or crackles noted. Cardio regular rate, regular rhythm, no murmurs and peripheral pulses 2+ throughout GI normal to inspection, nondistended, normoactive bowel sounds, soft to palpation,non-tender and non-distended Back/Spine normal ROM Extremity full ROM and no pedal edema Extremity Narrative: Left toe wound noted. Neuro no focal motor deficits and no sensory deficits noted Speech: speech normal Psych mental status grossly normal Assessment & Plan Assessment/Plan (1) Gangrene: PLAN: Plan Patient is a 68-year-old female who presented [facility] ED on 01/08/2024 with worsening left toe wound. 1. Left fourth toe gangrene ? Podiatry following. Foot x-ray on admit within normal limits. Vascular studies ordered on 01/09, have not been completed yet. Vascular surgery consulted per podiatry recommendations. Continue broad-spectrum antibiotics. Planning for incision and drainage tomorrow with delayed primary closure and washout on either Thursday or Thursday of next week. N.p.o. at midnight. Preoperative evaluation as noted below. Wound care following. Continue scheduled Tylenol with as needed oxycodone and morphine for pain management. 2. Preop evaluation ? NSQIP score: Patient at below average risk of complications or serious complications given low risk procedure and risk factors of age, female, mild systemic disease and elevated BMI. ? Labs/imaging: Hemoglobin normal, kidney function normal, no other notable lab abnormalities. Recommend repeat CBC and BMP postoperatively. ? EKG/echo: No significant cardiac history, low risk procedure, hemodynamically stable on room air and in normal sinus rhythm, no need for EKG or echo prior to procedure. ? Medications: Holding home Plavix on day of procedure, will defer to podiatry on timing of restarting this medication. Continue home aspirin. Continue all other home medications as normal. ? Previous procedural complications: None. ? Recommendation: Patient is medically optimized for procedure. 3. Peripheral vascular disease with history of stenting ? Follows with Dr. Song at [facility], has follow-up with him for some time. Wasapparently supposed to have a procedure with him sometime soon. Vascular surgery here consulted as noted above. Continue home aspirin, statin, cilostazol. Holding clopidogrel for now as noted above. 4. COPD ? Continue home inhalers. Incentive spirometry at bedside. 5. Hypertension ? Continue home amlodipine. 6. Tobacco use ? Former user. Advised continued cessation. DVT prophylaxis: SCDs CODE STATUS: Full code, verified Expected disposition: TBD Total clinical time spent by myself addressing the patient's medical issues, reviewing all the data, and collaborating with patient's care team: 35 minutes. Charges/Coding Visit Charges Inpatient E&M: 03558 Subs Hosp L2 01/09/24 1539 <Electronically signed by Armani Moses DO> Cosigner Signature (if applicable): CC: ~ Signed [facility] Work Phone: 1(984) 807-604702-24-2024 Consult note Author Momo Camacho [facility] January 09, 2024 9:52am Note Date/Time January 09, 2024 9:21am [facility] Medical Records Department [address] [place] [address] Consultation 01/09/24920 MR#: [id number] Acct: [id number] Name: BRENDA MACEDO Rep #:[id number] : 1955 68 From: Momo Roberts PM PCP: ANN MARIE Corona tus:ADM IN Location: OR3 [id number] Assessment & Plan Assessment/Plan (1) Osteomyelitis: QUALIFIERS: Osteomyelitis location: foot Laterality: left PLAN: Patient was examined and evaluated. All findings were discussed with the patient. All questions were answered to the patient's satisfaction. Bilateral lower extremity arterial exams are pending. Based on the patient's physical exam there shows evidence of worsening gangrene to the left fourth digit. Will plan for surgical intervention tomorrow, Thursday,01/10/2024. Surgery will consist of incision and drainage with incision of bone cortex for left foot. Please clear the patient medically with all recommendations. Patient to be n.p.o. midnight tonight. The patient's incision will be left open to monitor demarcation. Will plan for a delayed primary closure and washout either Thursday versus Thursday of next week. Recommend vascular surgery consultation Medicine: On board, medical management, IV antibiotics vancomycin and Zosyn Podiatry will continue to follow the patient is in house. Please reach out to Dr. Camacho with any questions or concerns. Thank for the consultation! (2) Gangrene: (3) Peripheral arterial occlusive disease: HPI Consult Data Date of Consult: 01/09/24 HPI Narrative Reason for Consultation: Gangrene left foot HPI Narrative: BRENDA MACEDO, is a 68 F who presents to [facility] after being evaluated and admitted from the emergency department secondary to left foot gangrene, fourth digit. [facility] [place] by Dr. Rose who initially diagnosed the patient with gangrene to the left foot. Based on his recommendation the patient was sent to the emergency department to be evaluated and admitted for worsening gangrene to left foot secondary to peripheral vascular disease. Patient has an extensive history of intervention by an outside vascular surgeon, Dr. Song. Patient did see Dr. Song a few months ago and was planning on intervention this . However, the patient's gangrene has worsened and has now been admitted to the hospital. Podiatry was consulted for evaluation and possible surgical intervention. The patient has a past medical history of tobacco use, PVD, hypertension, COPD. She denies any trauma. Denies constitutional symptoms. Noother pedal complaints at this time. [facility] Medical History Arthritis Carotid stenosis, bilateral Cervical cancer Peripheral arterial occlusive disease PVD (peripheral vascular disease) Tobacco abuse Home Medications acetaminophen 650 mg tablet,extended release (Tylenol Arthritis Pain) 650 mg PO Q6H PRN Pain 06/25/18 [History Last Taken Unknown] albuterol sulfate 90 mcg/actuation aerosol inhaler 2 puff inhalation Q6H PRN shortness of breath or wheezing 01/08/24 [History Last Taken Unknown] amlodipine 5 mg tablet 5 mg PO DAILY 01/08/24 [History Last Taken Unknown] aspirin 81 mg tablet,delayed release 81 mg PO DAILY 01/08/24 [History Last Taken Unknown] budesonide-formoterol HFA 160 mcg-4.5 mcg/actuation aerosol inhaler 2 puff inhalation BID 01/08/24 [History Last Taken Unknown] cilostazol 50 mg tablet 50 mg PO DAILY 01/08/24 [History Last Taken Unknown] clopidogrel 75 mg tablet 75 mg PO DAILY 01/08/24 [History Last Taken Unknown] rosuvastatin 10 mg tablet 10 mg PO DAILY 01/08/24 [History Last Taken Unknown] Allergy/AdvReac Type Severity Reaction Status Date / Time No Known Allergies Allergy Verified 01/08/24 13:35 Family History Mother Breast cancer Surgical History S/P LEFT ARTERIOGRAM Social History Smoking Status: Former smoker alcohol intake: never Physical Exam Narrative Vascular: DP and PT pulses are faintly palpable. CFT is delayed to the left fourth digit. Nonpitting edema appreciated bilateral lower extremity. Skin temperature is warm to warm from proximal ankle to distal digits bilateral. Neurological: Light touch intact. Patient response to painful stimuli. Dermatological: Evidence of dry gangrene appreciated to the left foot fourth digit. Evidence of maceration to the webspaces. Malodor is present. No open lesions or abrasions are appreciated. No probe to bone. Evidence of blanchableerythema appreciated to the left lower extremity. Musculoskeletal: Muscle strength is 5 and 5 in all quadrants bilateral. Mild tomoderate palpatory tenderness appreciated to the left fourth digit. No pain with calf pressure. Const alert, oriented x3 and no apparent distress Lab / Micro Data 01/09/24 06:00 01/09/24 06:00 Labs: Laboratory Results - last 24 hr 01/08/24 15:35: WBC 8.0, RBC 4.90, Hgb 13.4, Hct 43.4, MCV 88.6, MCH 27.3, MCHC 30.9 L, RDW Std Deviation 48.0 H, RDW Coeff of Alfie 14.8 H, Plt Count 327, MPV 9.9, Immature Gran % (Auto) 0.400, Neut % (Auto) 73.6 H, Lymph % (Auto) 17.2 L, Spalding % (Auto) 7.0, Eos % (Auto) 1.0, Baso % (Auto) 0.8, Absolute Neuts (auto) 5.9, Absolute Lymphs (auto) 1.37, Nucleated RBC % 0, ESR 27, Sodium 139, Potassium 3.7, Chloride 106, Carbon Dioxide 30.0, Anion Gap 3 L, BUN 11, Creatinine 0.67, Estim Creat Clear Calc 66.90, Est GFR (MDRD) Af Amer 113, Est GFR (MDRD) Non-Af 94, BUN/Creatinine Ratio 16.4, Glucose 84, Calcium 9.4, C-React Prot Ext Range 3.94 H 01/09/24 06:00: WBC 7.0, RBC 4.58, Hgb 12.7, Hct 41.4, MCV 90.4, MCH 27.7, MCHC 30.7 L, RDW Std Deviation 49.4 H, RDW Coeff of Alfie 14.9 H, Plt Count 315, MPV 10.0, Immature Gran % (Auto) 0.100, Neut % (Auto) 65.7, Lymph % (Auto) 21.3, Spalding % (Auto) 10.2 H, Eos % (Auto) 2.0, Baso % (Auto) 0.7, Absolute Neuts (auto)4.6, Absolute Lymphs (auto) 1.49, Nucleated RBC % 0, PT 13.5, INR 1.0, Sodium 141, Potassium 4.0, Chloride 109 H, Carbon Dioxide 29.0, Anion Gap 3 L, BUN 9, Creatinine 0.66, Estim Creat Clear Calc 66.90, Est GFR (MDRD) Af Amer 114, Est GFR (MDRD) Non-Af 94, BUN/Creatinine Ratio 13.6, Glucose 84, Calcium 9.1, Triglycerides 116, Cholesterol 150, LDL Cholesterol 89, VLDL Cholesterol 23, HDLCholesterol 38 L Imaging Radiology Impression Foot X-Ray 01/08/24 15:24 IMPRESSION: Normal x-ray examination of the foot. Electronically Signed: Latrell Mac MD at 16:19 EST Reading Location ID and State: [facility] [place] Tel , Service support , Chest X-Ray 01/08/24 15:50 IMPRESSION: COPD. No acute disease. Electronically Signed: Latrell Mac MD at 16:27 EST Reading Location ID and State: [facility] [place] Tel , Service support , 01/09/24 0952 <Electronically signed by Momo Camacho DPM> Cosigner Signature (if applicable): CC: KATERYNA Camacho; ANN MARIE Ashley; Dr. Liz Murillo MD~ Signed [facility] Work Phone: 1(231) 899-133202-24-2024 Discharge summary Author Josiane Tucker [facility] January 09, 2024 12:36am Note Date/Time January 08, 2024 4:01pm [facility] Medical Records Department [address] [place] [address] Emergency Department Summary 01/08/24 MR#: [id number] Acct: [id number] Name: BRENDA MACEDO Rep #:[id number] : 1955 68 From: Josiane Tucker MD PCP: ANN MARIE Corona Sta tus:ADM IN Location: [place] [id number] HPI <Yin Pham RN - Last Filed: 01/08/24 16:35> History of Present Illness Chief Complaint: Wound Detail of Chief Complaint: Left fourth toe wound Informant: patient Onset/Context/Timing Onset: Month(s) (2) Context: Gradual Onset Timing: Continuous Quality: Aching Location: Left fourth toe Current Severity: 8/10 Maximum Severity: 8/10 Worsened by: Activity, palpation Relieved by: Rest Narrative Narrative: Patient presents to the ED from [place] [facility] [place]. She reports she was referred by the technical supervisor for admission and surgery involving amputation ofthe left fourth toe. Patient reports left fourth toe wound beginning approximately 2 months ago for which she showed her family doctor. Patient denies injury. Denies drainage from site. He monitored for an additional monthand then referred to podiatry. Upon seeing podiatry, patient was told the left fourth toe appears gangrenous. Patient reports history of peripheral arterial disease. She reports seeing Dr. Song from [facility]. She has past history of stents in bilateral lower extremities. She had a CT scan on 12/21/2023 showing left common and external iliacs with stents that are not patent. She is to havesurgery next week with Dr. Song for this. This appears to be the cause of thetoe wound. Patient denies fevers or chills. She reports 8/10 pain improving with extra strength julita to 5/10. Patient reports last dose 0300 today. Patient reports last p.o. intake at 10 AM today. Patient denies any recent surgeries or travel. Prior similar symptoms: No Recent Illness/Hospitalization: No PFSH <Yin Pham RN - Last Filed: 01/08/24 16:35> PFSH Medical History Arthritis Carotid stenosis, bilateral Cervical cancer Peripheral arterial occlusive disease PVD (peripheral vascular disease) Tobacco abuse Home Medications acetaminophen 650 mg tablet,extended release (Tylenol Arthritis Pain) 650 mg PO Q6H PRN PRN Pain 06/25/18 [History Last Taken Unknown] albuterol sulfate 90 mcg/actuation aerosol inhaler 2 puff inhalation DAILY PRN PRN shortness of breath or wheezing 01/08/24 [History Last Taken Unknown] amlodipine 5 mg tablet 5 mg PO DAILY 01/08/24 [History Last Taken Unknown] aspirin 81 mg tablet,delayed release 81 mg PO DAILY 01/08/24 [History Last Taken Unknown] budesonide-formoterol HFA 160 mcg-4.5 mcg/actuation aerosol inhaler 2 puff inhalation DAILY 01/08/24 [History Last Taken Unknown] cilostazol 50 mg tablet 50 mg PO DAILY 01/08/24 [History Last Taken Unknown] clopidogrel 75 mg tablet 75 mg PO DAILY 01/08/24 [History Last Taken Unknown] rosuvastatin 10 mg tablet 10 mg PO DAILY 01/08/24 [History Last Taken Unknown] Allergy/AdvReac Type Severity Reaction Status Date / Time No Known Allergies Allergy Verified 01/08/24 13:35 Family History Mother Breast cancer Surgical History S/P LEFT ARTERIOGRAM Social History Smoking Status: Former smoker alcohol intake: never ROS <Yin Pham RN - Last Filed: 01/08/24 16:35> ROS ED Constitutional Constitutional ED: Denies chills, fever(s) or sweats Eyes Eyes: Denies blurry vision or change in vision Cardiovascular Cardiovascular: Denies chest pain or palpitations Respiratory/Chest Respiratory/Chest: Denies cough, dyspnea or dyspnea on exertion Gastrointestinal Gastrointestinal: Denies abdominal pain, diarrhea, nausea or vomiting Genitourinary Genitourinary ED: Denies dysuria, hematuria or urinary frequency Musculoskeletal Musculoskeletal: Denies arthralgias or myalgias Integumentary Reports other Details: Left fourth toe wound Neurologic Neurologic: Denies headache(s) or weakness Hematologic/Lymphatic Hematologic/Lymphatic: Reports systems reviewed and no addt'l complaints, exceptas documented EXAM <Yin Pham RN - Last Filed: 01/08/24 16:35> Physical Exam Const Vital Signs: 01/08/24 13:36 01/08/24 13:39 Temperature 97.6 F L 97.6 F L Temperature Source Temporal Temporal Pulse Rate 118 H 118 H Respiratory Rate 20 H 20 H Blood Pressure 127/87 H 127/87 H Blood Pressure Mean 100 100 Pulse Ox 93 93 Oxygen Delivery Method Room Air Room Air Positive well nourished and well developed General Appearance ED: well developed and NAD HEENT Reports moist mucous membranes Eyes PERRL and EOMs intact bilaterally Neck no lymphadenopathy, supple and no JVD Chest Wall inspection of chest normal and palpation of chest normal Resp normal respiratory effort and clear to auscultation bilaterally Auscultation: Negative for rales, rhonchi or wheezes Cardio regular rate, S1 normal heart sound and S2 normal heart sound GI normal to inspection, nondistended, normoactive bowel sounds and non-tender Palpation: soft Narrative: Patient denies dysuria, hematuria, and urinary frequency Extremity Extremity Narrative: 1+ pitting pedal edema to right lower extremity. General Extremety ED: Yes edema General Extremity: edema Neuro oriented x3 Sensorium / Orientation: alert Motor Exam: strength 5/5 throughout Psych mental status grossly normal Skin Skin Narrative: Blackened area to entire medial and plantar side of left fourth toe. No drainage noted. Weak pedal pulses bilaterally. Wounds: wounds noted No drainage, malodorous and No surrounding erythema <Dr. Josiane Tucker MD - Last Filed: 01/08/24 16:39> Physical Exam Const Vital Signs: 01/08/24 13:36 01/08/24 13:39 Temperature 97.6 F L 97.6 F L Temperature Source Temporal Temporal Pulse Rate 118 H 118 H Respiratory Rate 20 H 20 H Blood Pressure 127/87 H 127/87 H Blood Pressure Mean 100 100 Pulse Ox 93 93 Oxygen Delivery Method Room Air Room Air MDM <Yin Pham RN - Last Filed: 01/08/24 16:35> MDM MDM Narrative Medical decision making narrative: IV inserted. Labwork obtained to evaluate for leukocytosis, anemia, and electrolyte derangement. Chest x-ray ordered due to possible surgery and history of COPD. Left foot x-ray ordered to evaluate left fourth toe. Blood cultures x 2 ordered due to concern for infection. EKG obtained to evaluate forcardiac arrhythmia/ischemia. Zosyn and vancomycin ordered due to infection. History & Record Review Discussion w/independent historian: Patient Additional record(s) reviewed:: Prior inpatient record Lab Data Labs: Laboratory Results - last 24 hr 01/08/24 15:35 WBC 8.0 RBC 4.90 Hgb 13.4 Hct 43.4 MCV 88.6 MCH 27.3 MCHC 30.9 L RDW Std Deviation 48.0 H RDW Coeff of Alfie 14.8 H Plt Count 327 MPV 9.9 Immature Gran % (Auto) 0.400 Neut % (Auto) 73.6 H Lymph % (Auto) 17.2 L Spalding % (Auto) 7.0 Eos % (Auto) 1.0 Baso % (Auto) 0.8 Absolute Neuts (auto) 5.9 Absolute Lymphs (auto) 1.37 Nucleated RBC % 0 Sodium 139 Potassium 3.7 Chloride 106 Carbon Dioxide 30.0 Anion Gap 3 L BUN 11 Creatinine 0.67 Estim Creat Clear Calc 66.90 Est GFR (MDRD) Af Amer 113 Est GFR (MDRD) Non-Af 94 BUN/Creatinine Ratio 16.4 Glucose 84 Calcium 9.4 Radiography Diagnostic Testing: Clinical Impression(s) from Imaging Studies Foot X-Ray 01/08/24 15:24 IMPRESSION: Normal x-ray examination of the foot. Electronically Signed: Latrell Mac MD at 16:19 EST , Chest X-Ray 01/08/24 15:50 IMPRESSION: COPD. No acute disease. Electronically Signed: Latrell Mac MD at 16:27 EST , Differential Diagnosis Differential Diagnosis: Sepsis Management Discussion w/another healthcare provider: Other (Dr. Shirley, ED provider) Treatment and Re-Evaluation :: Lab work shows white blood cell count normal at 8.0, neutrophils 73.6%, and hemoglobin 13.4. Chemistries normal with sodium 139, potassium 3.7, chloride 106, CO2 30, BUN 11, creatinine 0.67, and glucose 84. CRP and sed rate still pending. Chest x-ray shows COPD and no acute process. Left foot x-ray is normal and negative for osteomyelitis. Upon reevaluation of patient awake and alert in bed. No acute distress. Dr. Shirley spoke with podiatry who indicated surgery would be on Thursday at the earliest. Patient will be admitted to hospitalist service for gangrene of left fourth toe. Plan discussed with patient and visitor at bedside. Patient agreeable. <Dr. Josiane Tucker MD - Last Filed: 01/08/24 16:39> [facility] Lab Data Labs: Laboratory Results - last 24 hr 01/08/24 15:35 WBC 8.0 RBC 4.90 Hgb 13.4 Hct 43.4 MCV 88.6 MCH 27.3 MCHC 30.9 L RDW Std Deviation 48.0 H RDW Coeff of Alfie 14.8 H Plt Count 327 MPV 9.9 Immature Gran % (Auto) 0.400 Neut % (Auto) 73.6 H Lymph % (Auto) 17.2 L [place]alding % (Auto) 7.0 Eos % (Auto) 1.0 Baso % (Auto) 0.8 Absolute Neuts (auto) 5.9 Absolute Lymphs (auto) 1.37 Nucleated RBC % 0 Sodium 139 Potassium 3.7 Chloride 106 Carbon Dioxide 30.0 Anion Gap 3 L BUN 11 Creatinine 0.67 Estim Creat Clear Calc 66.90 Est GFR (MDRD) Af Amer 113 Est GFR (MDRD) Non-Af 94 BUN/Creatinine Ratio 16.4 Glucose 84 Calcium 9.4 Radiography Diagnostic Testing: Clinical Impression(s) from Imaging Studies Foot X-Ray 01/08/24 15:24 IMPRESSION: Normal x-ray examination of the foot. Electronically Signed: Latrell Mac MD at 16:19 EST Reading Location ID and State: [address] [place] [address] Tel , Service support , Chest X-Ray 01/08/24 15:50 IMPRESSION: COPD. No acute disease. Electronically Signed: Latrell Mac MD at 16:27 EST Reading Location ID and State: [facility] / [place] Tel , Service support , Treatment and Re-Evaluation :: Lab work shows white blood cell count normal at 8.0, neutrophils 73.6%, and hemoglobin 13.4. Chemistries normal with sodium 139, potassium 3.7, chloride 106, CO2 30, BUN 11, creatinine 0.67, and glucose 84. CRP and sed rate still pending. Chest x-ray shows COPD and no acute process. Left foot x-ray is normal and negative for osteomyelitis. Upon reevaluation of patient awake and alert in bed. No acute distress. Dr. Shirley spoke with podiatry who indicated surgery would be on Thursday at the earliest. Patient will be admitted to hospitalist service for gangrene of left fourth toe. Plan discussed with patient and visitor at bedside. Patient agreeable. Patient seen and evaluated with DIANNA student. I personally interviewed and examined the patient. I was involved in all aspects of patient's orders, interpretation of results, and treatment. Patient sent from podiatry office secondary to gangrene of the left fourth toe. They reported to patient that she will require admission and surgery. Patient reports left fourth toe discoloration for the last 2 months. She deniesfever or chills. Patient sitting upright in bed no acute distress. Head and neck examination unremarkable. Heart is regular rate and rhythm without murmur. Lung sounds are clear. Abdomen is soft and nontender. Active bowel sounds noted. Lower extremity examination reveals dry gangrene of the left fourth toe. No surrounding erythema. No drainage from the wound. Lab work obtained and reveals normal white count. Preoperative EKG obtained andreveals sinus rhythm at 99 bpm with no acute ischemia. Left foot x-rays per my interpretation reveal no obvious bony destruction but poor bone density throughout. Radiology interpretation is reviewed. Portable chest x-ray obtained as part of preop workup and per my interpretation reveals no acute abnormalities. I spoke with Dr. Camacho, on-call for podiatry. He states the patient was seen by Dr. Rose. He asked that patient be admitted to hospitalist service and he will see the patient either tonight or tomorrow with plan for OR potentially on Thursday. Patient has already been given Zosyn and vancomycin. I will speak withthe hospitalist. Discharge Plan Dx/Rx/DC Orders Clinical Impression: Gangrene Disposition Disposition: Acute Care Hospital [facility] What to do if you have Problems For any increased pain, shortness of breath, bleeding, nausea or vomiting, chestpain, or any unexpected problems, contact your Primary Care Provider. Call [facility] ([phone]) or report to the closest Emergency Room. Call 911 if necessary. 01/09/24 0036 <Electronically signed by Josiane Tucker MD> Cosigner Signature (if applicable): 01/08/24 1635 <Electronically signed by Yin Pham RN> CC: ANN MARIE Ashley ~ Signed [facility] Work Phone: 1(397) 269-953702-23-2024 Consult note Author Rosenda Cuevas [facility] January 08, 2024 6:42pm Note Date/Time January 08, 2024 6:42pm [facility] Medical Records Department [address] [place] [address] Pharmacokinetic/Renal -Consult 01/08/241840 MR#: [id number] Acct: [id number] Name: BRENDA MACEDO Rep #:[id number] : 1955 68 From: Rosenda Cuevas PCP: ANN MARIE Corona tus:ADM IN Y Location: [place] [address] Consult Antibiotic Management Pharmacy has been consulted to manage selected antibiotic: Vancomycin Type of Intervention Type of Consult: New start Suspected Infection Suspected Infection: Skin/Soft tissue Labs Labs: Sodium 139 mmol/L (136-145) 01/08/24 15:35 Potassium 3.7 mmol/L (3.5-5.1) 01/08/24 15:35 Chloride 106 mmol/L (98-107) 01/08/24 15:35 Carbon Dioxide 30.0 mmol/L (21.0-32.0) 01/08/24 15:35 Anion Gap 3 (5-15) L 01/08/24 15:35 BUN 11 mg/dL (7-18) 01/08/24 15:35 Creatinine 0.67 mg/dL (0.55-1.02) 01/08/24 15:35 Est GFR (MDRD) Af Amer 113 mL/min (>60) 01/08/24 15:35 Est GFR (MDRD) Non-Af 94 mL/min (>60) 01/08/24 15:35 BUN/Creatinine Ratio 16.4 RATIO (10-20) 01/08/24 15:35 Glucose 84 mg/dL (74-106) 01/08/24 15:35 Goal Trough Goal Trough: 15-20 mcg/mL Pharmacy Plan for Drug Dosing Pharmacy Plan for Drug Dosing: NEW START IV VANCOMYCIN Consulting Physician: Dr. Murillo Indication: SSTI Goal Trough: 15-20 SrCr: 0.67 CrCl: 67 mL/min Comments: Patient had 1st dose of vancomycin 1250mg IV x1 in ED 01/08 @1637 Vancomycin Dose: 1000mg IV Q12hr to start 01/09/24 @0400 Pending Level: 01/10/24 @0330, prior to 4th total dose of vancomycin per protocol Pharmacy Service will continue to monitor and adjust dosing as required. 01/08/241841 <Electronically signed by Rosenda Regula > Date _ Rosenda Cuevas Cosigner Signature (if applicable): Date CC: ~ Signed [facility] Work Phone: 1(604) 599-548002-23-2024 History and physical note Author Liz Murillo [facility] January 08, 2024 5:30pm Note Date/Time January 08, 2024 5:29pm [facility] Medical Records Department [address] [place] [address] H&P Exam - Hospitalist 01/08/24 1720 MR#: [id number] Acct: [id number] Name: BRENDA MACEDO Rep #:[id number] : 1955 68 From: Liz Murillo MD PCP: ANN MARIE Corona tus:ADM IN Location: [facility] [place] [id number] HPI - General General Date of Admission: 01/08/24 Date of Service: 01/08/24 Chief Complaint: Fourth left toe pain and blackness HPI Narrative BRENDA MACEDO, is a 68-year-old female history of tobacco use, PVD, hypertension, COPD who presented to [facility] ED 01/08/2024 at the urging of her technical supervisor for admission and surgery. She has had a left fourth toe wound for 2 months and was [facility], shewas seen in podiatry recommended admission and surgery involving amputation of left fourth toe. Patient denies any injury or drainage from site. Does have history of peripheral arterial disease with stents and has seen Dr. Song from [facility], had CT scan on 12/21 which showed the left common and external iliacs with stents were not patent and she is to have surgery with Dr. Song for this potentially next week. Pain has been an 8 out of 10 and has been difficult to manage on an outpatient basis. [employer] contacted in ED they recommended hospitalist admit with antibiotics and that podiatry will see in consult for surgery. Patient evaluated at bedside. She reports history as above and deniesany other present wounds, no fevers or chills. Had her stents in 2018 and both legs with Dr. Michelle but has since followed with Dr. Song in [place]. Has some swelling in lower extremities from not walking around because of her foot, rightgreater than left but she reports that it is not new. No other focal or acute complaints [facility] Medical History Arthritis Carotid stenosis, bilateral Cervical cancer Peripheral arterial occlusive disease PVD (peripheral vascular disease) Tobacco abuse Home Medications acetaminophen 650 mg tablet,extended release (Tylenol Arthritis Pain) 650 mg PO Q6H PRN Pain 06/25/18 [History Last Taken Unknown] albuterol sulfate 90 mcg/actuation aerosol inhaler 2 puff inhalation Q6H PRN shortness of breath or wheezing 01/08/24 [History Last Taken Unknown] amlodipine 5 mg tablet 5 mg PO DAILY 01/08/24 [History Last Taken Unknown] aspirin 81 mg tablet,delayed release 81 mg PO DAILY 01/08/24 [History Last Taken Unknown] budesonide-formoterol HFA 160 mcg-4.5 mcg/actuation aerosol inhaler 2 puff inhalation BID 01/08/24 [History Last Taken Unknown] cilostazol 50 mg tablet 50 mg PO DAILY 01/08/24 [History Last Taken Unknown] clopidogrel 75 mg tablet 75 mg PO DAILY 01/08/24 [History Last Taken Unknown] rosuvastatin 10 mg tablet 10 mg PO DAILY 01/08/24 [History Last Taken Unknown] Allergy/AdvReac Type Severity Reaction Status Date / Time No Known Allergies Allergy Verified 01/08/24 13:35 Family History Mother Breast cancer Surgical History S/P LEFT ARTERIOGRAM Social History Smoking Status: Former smoker alcohol intake: never ROS ROS Narrative General: Denies fever/chills HENT: Denies headache, denies stuffy nose, denies sore throat EYES: Denies changes in vision Resp: Denies cough, denies shortness of breath Cardiac: Denies chest pain GI: Denies abdominal pain, denies changes in bowel, denies nausea/vomiting : Denies changes in urination Extremity: Denies swelling MSK: Denies weakness Neuro: Denies any numbness/tingling Heme: Denies any bleeding or bruising Skin: Left fourth toe with black eschar and some surrounding erythema Psychiatric: No complaints voiced Vital Signs Vital Signs Vital Signs: 01/08/24 13:36 01/08/24 13:39 Temperature 97.6 F L 97.6 F L Temperature Source Temporal Temporal Pulse Rate 118 H 118 H Respiratory Rate 20 H 20 H Blood Pressure 127/87 H 127/87 H Blood Pressure Mean 100 100 Pulse Ox 93 93 Oxygen Delivery Method Room Air Room Air Weight Weight: 78 kg Body Mass Index (BMI) 31.4 Physical Exam Narrative General: Alert, oriented, no apparent distress HEENT: Atraumatic, normocephalic Eyes: Anicteric, normal conjunctiva, extraocular movements grossly intact Neck: Supple Respiratory: Clear to auscultation bilaterally, normal respiratory effort Cardiovascular: Regular rate and rhythm GI: Soft, nontender, nondistended Extremities: No edema Musculoskeletal: Moving all extremities Neuro: No overt focal neurological deficits Skin: Left fourth toe black medially with surrounding cellulitis and foul- smelling Psych: Cooperative Results Lab / Micro Data 01/08/24 15:35 01/08/24 15:35 Labs: Laboratory Results - last 24 hr 01/08/24 15:35: WBC 8.0, RBC 4.90, Hgb 13.4, Hct 43.4, MCV 88.6, MCH 27.3, MCHC 30.9 L, RDW Std Deviation 48.0 H, RDW Coeff of Alfie 14.8 H, Plt Count 327, MPV 9.9, Immature Gran % (Auto) 0.400, Neut % (Auto) 73.6 H, Lymph % (Auto) 17.2 L, Spalding % (Auto) 7.0, Eos % (Auto) 1.0, Baso % (Auto) 0.8, Absolute Neuts (auto) 5.9, Absolute Lymphs (auto) 1.37, Nucleated RBC % 0, ESR 27, Sodium 139, Potassium 3.7, Chloride 106, Carbon Dioxide 30.0, Anion Gap 3 L, BUN 11, Creatinine 0.67, Estim Creat Clear Calc 66.90, Est GFR (MDRD) Af Amer 113, Est GFR (MDRD) Non-Af 94, BUN/Creatinine Ratio 16.4, Glucose 84, Calcium 9.4, C-React Prot Ext Range 3.94 H Imaging Radiology Impression Foot X-Ray 01/08/24 15:24 IMPRESSION: Normal x-ray examination of the foot. Electronically Signed: Latrell Mac MD at 16:19 EST Reading Location ID and State: [facility] / [place] Tel , Service support , Chest X-Ray 01/08/24 15:50 IMPRESSION: COPD. No acute disease. Electronically Signed: Latrell Mac MD at 16:27 EST Reading Location ID and State: [address] [place] [address] Tel , Service support , Assessment & Plan Assessment/Plan (1) Gangrene: (2) Peripheral arterial occlusive disease: PLAN: Plan #Left fourth toe gangrene -Foot x-ray within normal limits -Evaluated by podiatry who requested IV antibiotics and admission for surgery -Vascular studies to be ordered per podiatry -Will start broad-spectrum antibiotics -IV fluids -Blood culture sent in ED -Podiatry consult -Wound care -Pain control prn and schedule tylenol # Peripheral vascular disease with history of stenting -Follows with Dr. Song at [facility] and supposed to have intervention sometime in the near future -Continue aspirin, statin, cilostazol, clopidogrel # COPD -Continue home inhalers -i/s #Hypertension -Continue amlodipine #Tobacco use- former user -Advise continued cessation #DVT ppx: SCDs Liz Murillo MD Time spent in the patient's overall evaluation,decision-making process, review of diagnostic data, adjustment of management, discussion with other providers, nursing nursing and ancillary staff involved in patient's care documentation, 58Minutes Charges/Coding Visit Charges Inpatient E&M: 48702 Init Hosp L2 01/08/24 1730 <Electronically signed by Liz Murillo MD> Cosigner Signature (if applicable): CC: WAITER/WAITRESS HEADLayla Ashley; Dr. Liz Murillo MD~ Signed [facility] Work Phone: evaluation + Plan note Future Appointments Appointment Date:11/19/2023 01:20:00 PM Scheduled Provider:CARLINE ASHLEY APRN - [place] Location:[facility] Appointment Type:PC OV Follow Up Future Scheduled Tests Laboratory* Renin, Plasma 10/10/23 [facility] evaluation noteNo assessment information available [facility] Work Phone: evaluation note* Diagnosis Onset Date Resolution Status Gangrene acute Peripheral arterial occlusive disease acute [facility] Work Phone: evaluation note* Diagnosis Onset Date Resolution Status MELLY (acute kidney injury) [place] 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, left leg acute Gangrene acute Osteomyelitis acute Peripheral arterial occlusive disease acute [facility] Work Phone: evaluation note* Diagnosis Onset Date Resolution Status MELLY (acute kidney injury) [place] Gangrene resolved Osteomyelitis resolved Gangrene resolved Osteomyelitis resolved [facility] Work Phone: evaluation note* Diagnosis Onset Date Resolution Status MELLY (acute kidney injury) [place] 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, left leg acute Peripheral arterial occlusive disease acute Gangrene resolved Osteomyelitis resolved 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, left leg acute Peripheral arterial occlusive disease acute Gangrene resolved Osteomyelitis resolved Peripheral arterial occlusive disease acute [facility] Work Phone: evaluation note* Diagnosis Onset Date Resolution Status MELLY (acute kidney injury) [place] 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, left leg acute Peripheral arterial occlusive disease acute Gangrene resolved Osteomyelitis resolved 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, left leg acute Peripheral arterial occlusive disease acute Gangrene resolved Osteomyelitis resolved Peripheral arterial occlusive disease acute 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, left leg acute Peripheral arterial occlusive disease acute [facility] Work Phone: Evaluation note* Diagnosis Onset Date Resolution Status MELLY (acute kidney injury) [place] 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, left leg acute Peripheral arterial occlusive disease acute Gangrene resolved Osteomyelitis resolved 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, left leg acute Peripheral arterial occlusive disease acute Gangrene resolved Osteomyelitis resolved Peripheral arterial occlusive disease acute 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, left leg acute Peripheral arterial occlusive disease acute Peripheral arterial occlusive disease acute [facility] Work Phone: History and physical note Author Liz Murillo [facility] January 08, 2024 5:30pm Note Date/Time January 08, 2024 5:29pm [facility] Medical Records Department [address] [place] [address] H&P Exam - Hospitalist 01/08/24 1720 MR#: [id number] Acct: [id number] Name: BRENDA MACEDO Rep #:[id number] : 1955 68 From: Liz Murillo MD PCP: ANN MARIE Corona tus:ADM IN Location: [facility] [place] [id number] HPI - General General Date of Admission: 01/08/24 Date of Service: 01/08/24 Chief Complaint: Fourth left toe pain and blackness HPI Narrative BRENDA MACEDO, is a 68-year-old female history of tobacco use, PVD, hypertension, COPD who presented to [facility] ED 01/08/2024 at the urging of her technical supervisor for admission and surgery. She has had a left fourth toe wound for 2 months and was referred to the [facility] ankle Center, shewas seen in podiatry recommended admission and surgery involving amputation of left fourth toe. Patient denies any injury or drainage from site. Does have history of peripheral arterial disease with stents and has seen Dr. Song from [facility], had CT scan on 12/21 which showed the left common and external iliacs with stents were not patent and she is to have surgery with Dr. Song for this potentially next week. Pain has been an 8 out of 10 and has been difficult to manage on an outpatient basis. [employer] contacted in ED they recommended hospitalist admit with antibiotics and that podiatry will see in consult for surgery. Patient evaluated at bedside. She reports history as above and deniesany other present wounds, no fevers or chills. Had her stents in 2018 and both legs with Dr. Michelle but has since followed with Dr. Song in [place]. Has some swelling in lower extremities from not walking around because of her foot, rightgreater than left but she reports that it is not new. No other focal or acute complaints [facility] History Arthritis Carotid stenosis, bilateral Cervical cancer Peripheral arterial occlusive disease PVD (peripheral vascular disease) Tobacco abuse Home Medications acetaminophen 650 mg tablet,extended release (Tylenol Arthritis Pain) 650 mg PO Q6H PRN Pain 06/25/18 [History Last Taken Unknown] albuterol sulfate 90 mcg/actuation aerosol inhaler 2 puff inhalation Q6H PRN shortness of breath or wheezing 01/08/24 [History Last Taken Unknown] amlodipine 5 mg tablet 5 mg PO DAILY 01/08/24 [History Last Taken Unknown] aspirin 81 mg tablet,delayed release 81 mg PO DAILY 01/08/24 [History Last Taken Unknown] budesonide-formoterol HFA 160 mcg-4.5 mcg/actuation aerosol inhaler 2 puff inhalation BID 01/08/24 [History Last Taken Unknown] cilostazol 50 mg tablet 50 mg PO DAILY 01/08/24 [History Last Taken Unknown] clopidogrel 75 mg tablet 75 mg PO DAILY 01/08/24 [History Last Taken Unknown] rosuvastatin 10 mg tablet 10 mg PO DAILY 01/08/24 [History Last Taken Unknown] Allergy/AdvReac Type Severity Reaction Status Date / Time No Known Allergies Allergy Verified 01/08/24 13:35 Family History Mother Breast cancer Surgical History S/P LEFT ARTERIOGRAM Social History Smoking Status: Former smoker alcohol intake: never ROS ROS Narrative General: Denies fever/chills HENT: Denies headache, denies stuffy nose, denies sore throat EYES: Denies changes in vision Resp: Denies cough, denies shortness of breath Cardiac: Denies chest pain GI: Denies abdominal pain, denies changes in bowel, denies nausea/vomiting : Denies changes in urination Extremity: Denies swelling MSK: Denies weakness Neuro: Denies any numbness/tingling Heme: Denies any bleeding or bruising Skin: Left fourth toe with black eschar and some surrounding erythema Psychiatric: No complaints voiced Vital Signs Vital Signs Vital Signs: 01/08/24 13:36 01/08/24 13:39 Temperature 97.6 F L 97.6 F L Temperature Source Temporal Temporal Pulse Rate 118 H 118 H Respiratory Rate 20 H 20 H Blood Pressure 127/87 H 127/87 H Blood Pressure Mean 100 100 Pulse Ox 93 93 Oxygen Delivery Method Room Air Room Air Weight Weight: 78 kg Body Mass Index (BMI) 31.4 Physical Exam Narrative General: Alert, oriented, no apparent distress HEENT: Atraumatic, normocephalic Eyes: Anicteric, normal conjunctiva, extraocular movements grossly intact Neck: Supple Respiratory: Clear to auscultation bilaterally, normal respiratory effort Cardiovascular: Regular rate and rhythm GI: Soft, nontender, nondistended Extremities: No edema Musculoskeletal: Moving all extremities Neuro: No overt focal neurological deficits Skin: Left fourth toe black medially with surrounding cellulitis and foul- smelling Psych: Cooperative Results Lab / Micro Data 01/08/24 15:35 01/08/24 15:35 Labs: Laboratory Results - last 24 hr 01/08/24 15:35: WBC 8.0, RBC 4.90, Hgb 13.4, Hct 43.4, MCV 88.6, MCH 27.3, MCHC 30.9 L, RDW Std Deviation 48.0 H, RDW Coeff of Alfie 14.8 H, Plt Count 327, MPV 9.9, Immature Gran % (Auto) 0.400, Neut % (Auto) 73.6 H, Lymph % (Auto) 17.2 L, [place] % (Auto) 7.0, Eos % (Auto) 1.0, Baso % (Auto) 0.8, Absolute Neuts (auto) 5.9, Absolute Lymphs (auto) 1.37, Nucleated RBC % 0, ESR 27, Sodium 139, Potassium 3.7, Chloride 106, Carbon Dioxide 30.0, Anion Gap 3 L, BUN 11, Creatinine 0.67, Estim Creat Clear Calc 66.90, Est GFR (MDRD) Af Amer 113, Est GFR (MDRD) Non-Af 94, BUN/Creatinine Ratio 16.4, Glucose 84, Calcium 9.4, C-React Prot Ext Range 3.94 H Imaging Radiology Impression Foot X-Ray 01/08/24 15:24 IMPRESSION: Normal x-ray examination of the foot. Electronically Signed: Latrell Mac MD at 16:19 EST Reading Location ID and State: [facility] / [place] Tel , Service support , Chest X-Ray 01/08/24 15:50 IMPRESSION: COPD. No acute disease. Electronically Signed: Latrell Mac MD at 16:27 EST Reading Location ID and State: [address] [place] [address] Tel , Service support , Assessment & Plan Assessment/Plan (1) Gangrene: (2) Peripheral arterial occlusive disease: PLAN: Plan #Left fourth toe gangrene -Foot x-ray within normal limits -Evaluated by podiatry who requested IV antibiotics and admission for surgery -Vascular studies to be ordered per podiatry -Will start broad-spectrum antibiotics -IV fluids -Blood culture sent in ED -Podiatry consult -Wound care -Pain control prn and schedule tylenol # Peripheral vascular disease with history of stenting -Follows with Dr. Song at [place] and supposed to have intervention sometime in the near future -Continue aspirin, statin, cilostazol, clopidogrel # COPD -Continue home inhalers -i/s #Hypertension -Continue amlodipine #Tobacco use- former user -Advise continued cessation #DVT ppx: SCDs Liz Murillo MD Time spent in the patient's overall evaluation,decision-making process, review of diagnostic data, adjustment of management, discussion with other providers, nursing nursing and ancillary staff involved in patient's care documentation, 58Minutes Charges/Coding Visit Charges Inpatient E&M: 11906 Init Hosp L2 01/08/24 1730 <Electronically signed by Liz Murillo MD> Cosigner Signature (if applicable): CC: WAITER/WAITRESS HEADLayla Ashley; Dr. Liz Murillo MD~ Signed [facility] Work Phone: Hospital course Narrative No data available for this section [facility] Hospital Discharge instructions No data available for this section [facility] Progress note No data available for this section [facility] Reason for referral (narrative)No reason for referral information availableWMiddletown [facility] Work Phone: Summary Purpose Family History No Family History Records Found Relationship Condition Age at Onset Recorded Date/T carlos eduardo mother Malignant neoplasm of breast Unknown Advance Directives No Advanced Directives Records Found Advance Directive Response Recorded Date/ Time Advance Directives No September 1:37pm Living Will No October 05 018 1:37pm Power of Stock Letterer No October 05, 2018 1:37pm Advance Directive Response Recorded Date/ Time Advance Directives No September 1:37pm Living Will No January 08 2 024 2:57pm Power of Stock Letterer No January 08, 2024 2:57pm Advance Directive Response Recorded Date/ Time Advance Directives No September 1:37pm Living Will No January 08 2 024 6:47pm Power of Stock Letterer No January 08, 2024 6:47pm Advance Directive Response Recorded Date/ Time Advance Directives No September 2:37pm Living Will No January 08 2 024 7:47pm Power of Stock Letterer No January 08, 2024 7:47pm Advance Directive Response Recorded Date/ Time Living Will No July 21 024 1:15pm Do you have a Healthcare Power of Stock Letterer? No July 21, 2024 1:15pm Living Will No January 02, 2 025 12:49pm Do you have a Healthcare Power of Stock Letterer? No January 02, 2025 12:49pm Advance Directives No July 1:15pm Advance Directive Response Recorded Date/ Time Living Will No July 21, 024 1:15pm Do you have a Healthcare Power of Stock Letterer? No July 21, 2024 1:15pm Living Will No May 29, 2024 12:54am Do you have a Healthcare Power of Stock Letterer? No May 29, 2024 12:54am Living Will No January 02 025 12:49pm Do you have a Healthcare Power of Stock Letterer? No January 02, 2025 12:49pm Advance Directives No July 1:15pm Chief Complaint and Reason for Visit Chief Complaint Gangrene, not elsewh ere classified/WITH RUNOFF Chief Complaint Gangrene, not elsewh ere classified/WITH RUNOFF GANGRENE LEFT 4TH TOE Reason for Visit Gangrene Peripheral arterial occlusive disease Chief Complaint Gangrene, not elsewh ere classified/WITH RUNOFF GANGRENE LEFT 4TH TOE GANGRENE LEFT 4TH TOE GANGRENE LEFT 4TH TOE GANGRENE LEFT 4TH TOE GANGRENE LEFT 4TH TOE GANGRENE LEFT 4TH TOE GANGRENE LEFT 4TH TOE GANGRENE LEFT 4TH TOE GANGRENE LEFT 4TH TOE GANGRENE LEFT 4TH TOE GANGRENE LEFT 4TH TOE GANGRENE LEFT 4TH TOE GANGRENE LEFT 4TH TOE GANGRENE LEFT 4TH TOE GANGRENE LEFT 4TH TOE GANGRENE LEFT 4TH TOE GANGRENE LEFT 4TH TOE GANGRENE LEFT 4TH TOE GANGRENE LEFT 4TH TOE GANGRENE LEFT 4TH TOE GANGRENE LEFT 4TH TOE Reason for Visit MELLY (acute kidney in ) Atherosclerosis of [place] arteries of extremities with gangrene, left leg Gangrene Osteomyelitis Peripheral arterial occlusive disease Chief Complaint Gangrene, not elsewh ere classified/WITH RUNOFF GANGRENE LEFT 4TH TOE GANGRENE LEFT 4TH TOE GANGRENE LEFT 4TH TOE GANGRENE LEFT 4TH TOE GANGRENE LEFT 4TH TOE GANGRENE LEFT 4TH TOE GANGRENE LEFT 4TH TOE GANGRENE LEFT 4TH TOE GANGRENE LEFT 4TH TOE GANGRENE LEFT 4TH TOE GANGRENE LEFT 4TH TOE GANGRENE LEFT 4TH TOE GANGRENE LEFT 4TH TOE GANGRENE LEFT 4TH TOE GANGRENE LEFT 4TH TOE GANGRENE LEFT 4TH TOE GANGRENE LEFT 4TH TOE GANGRENE LEFT 4TH TOE GANGRENE LEFT 4TH TOE GANGRENE LEFT 4TH TOE GANGRENE LEFT 4TH TOE GANGRENE LEFT 4TH TOE GANGRENE LEFT 4TH TOE wound Reason for Visit MELLY (acute kidney in jury) Gangrene Osteomyelitis Gangrene Osteomyelitis Chief Complaint Gangrene, not elsewh ere classified/WITH RUNOFF GANGRENE LEFT 4TH TOE GANGRENE LEFT 4TH TOE GANGRENE LEFT 4TH TOE GANGRENE LEFT 4TH TOE GANGRENE LEFT 4TH TOE GANGRENE LEFT 4TH TOE GANGRENE LEFT 4TH TOE GANGRENE LEFT 4TH TOE GANGRENE LEFT 4TH TOE GANGRENE LEFT 4TH TOE GANGRENE LEFT 4TH TOE GANGRENE LEFT 4TH TOE GANGRENE LEFT 4TH TOE GANGRENE LEFT 4TH TOE GANGRENE LEFT 4TH TOE GANGRENE LEFT 4TH TOE GANGRENE LEFT 4TH TOE GANGRENE LEFT 4TH TOE GANGRENE LEFT 4TH TOE GANGRENE LEFT 4TH TOE GANGRENE LEFT 4TH TOE GANGRENE LEFT 4TH TOE GANGRENE LEFT 4TH TOE wound 2-4 W POST OP Reason for Visit MELLY (acute kidney in ) Atherosclerosis of [place] arteries of extremities with gangrene, left leg Peripheral arterial occlusive disease Gangrene Osteomyelitis Atherosclerosis of [place] arteries of extremities with gangrene, left leg Peripheral arterial occlusive disease Gangrene Osteomyelitis Peripheral arterial occlusive disease Chief Complaint Gangrene, not elsewh ere classified/WITH RUNOFF GANGRENE LEFT 4TH TOE GANGRENE LEFT 4TH TOE GANGRENE LEFT 4TH TOE GANGRENE LEFT 4TH TOE GANGRENE LEFT 4TH TOE GANGRENE LEFT 4TH TOE GANGRENE LEFT 4TH TOE GANGRENE LEFT 4TH TOE GANGRENE LEFT 4TH TOE GANGRENE LEFT 4TH TOE GANGRENE LEFT 4TH TOE GANGRENE LEFT 4TH TOE GANGRENE LEFT 4TH TOE GANGRENE LEFT 4TH TOE GANGRENE LEFT 4TH TOE GANGRENE LEFT 4TH TOE GANGRENE LEFT 4TH TOE GANGRENE LEFT 4TH TOE GANGRENE LEFT 4TH TOE GANGRENE LEFT 4TH TOE GANGRENE LEFT 4TH TOE GANGRENE LEFT 4TH TOE GANGRENE LEFT 4TH TOE wound 2-4 W POST OP wound COPD W/ASTHMA Reason for Visit MELLY (acute kidney in ) Atherosclerosis of [place] arteries of extremities with gangrene, left leg Peripheral arterial occlusive disease Gangrene Osteomyelitis Atherosclerosis of [place] arteries of extremities with gangrene, left leg Peripheral arterial occlusive disease Gangrene Osteomyelitis Peripheral arterial occlusive disease Atherosclerosis of [place] arteries of extremities with gangrene, left leg Peripheral arterial occlusive disease Chief Complaint Gangrene, not elsewh ere classified/WITH RUNOFF GANGRENE LEFT 4TH TOE GANGRENE LEFT 4TH TOE GANGRENE LEFT 4TH TOE GANGRENE LEFT 4TH TOE GANGRENE LEFT 4TH TOE GANGRENE LEFT 4TH TOE GANGRENE LEFT 4TH TOE GANGRENE LEFT 4TH TOE GANGRENE LEFT 4TH TOE GANGRENE LEFT 4TH TOE GANGRENE LEFT 4TH TOE GANGRENE LEFT 4TH TOE GANGRENE LEFT 4TH TOE GANGRENE LEFT 4TH TOE GANGRENE LEFT 4TH TOE GANGRENE LEFT 4TH TOE GANGRENE LEFT 4TH TOE GANGRENE LEFT 4TH TOE GANGRENE LEFT 4TH TOE GANGRENE LEFT 4TH TOE GANGRENE LEFT 4TH TOE GANGRENE LEFT 4TH TOE GANGRENE LEFT 4TH TOE wound 2-4 W POST OP wound COPD W/ASTHMA ATHEROSCLEROSIS, S/P R TO L FEM-FEM BYPASS,L ILIAC INT LABS Reason for Visit MELLY (acute kidney in jury) Atherosclerosis of [place] arteries of extremities with gangrene, left leg Peripheral arterial occlusive disease Gangrene Osteomyelitis Atherosclerosis of [place] arteries of extremities with gangrene, left leg Peripheral arterial occlusive disease Gangrene Osteomyelitis Peripheral arterial occlusive disease Atherosclerosis of [place] arteries of extremities with gangrene, left leg Peripheral arterial occlusive disease Chief Complaint Gangrene, not elsewh ere classified/WITH RUNOFF GANGRENE LEFT 4TH TOE GANGRENE LEFT 4TH TOE GANGRENE LEFT 4TH TOE GANGRENE LEFT 4TH TOE GANGRENE LEFT 4TH TOE GANGRENE LEFT 4TH TOE GANGRENE LEFT 4TH TOE GANGRENE LEFT 4TH TOE GANGRENE LEFT 4TH TOE GANGRENE LEFT 4TH TOE GANGRENE LEFT 4TH TOE GANGRENE LEFT 4TH TOE GANGRENE LEFT 4TH TOE GANGRENE LEFT 4TH TOE GANGRENE LEFT 4TH TOE GANGRENE LEFT 4TH TOE GANGRENE LEFT 4TH TOE GANGRENE LEFT 4TH TOE GANGRENE LEFT 4TH TOE GANGRENE LEFT 4TH TOE GANGRENE LEFT 4TH TOE GANGRENE LEFT 4TH TOE GANGRENE LEFT 4TH TOE wound 2-4 W POST OP wound COPD W/ASTHMA ATHEROSCLEROSIS, S/P R TO L FEM-FEM BYPASS,L ILIAC INT LABS 1 M FU SOFT TISSUE DISORDER Reason for Visit MELLY (acute kidney in jury) Atherosclerosis of [place] arteries of extremities with gangrene, left leg Peripheral arterial occlusive disease Gangrene Osteomyelitis Atherosclerosis of [place] arteries of extremities with gangrene, left leg Peripheral arterial occlusive disease Gangrene Osteomyelitis Peripheral arterial occlusive disease Atherosclerosis of [place] arteries of extremities with gangrene, left leg Peripheral arterial occlusive disease Peripheral arterial occlusive disease Chief Complaint Admit Date Follow Up October 20, 2024 1 0:11am INT LABS October 20, 2024 1 0:36am COPD/O2 Usage January 11, 2025 10:31am SCREENING January 26, 2025 12: 35pm Reason for Visit Admit Date Anemia October 20, 2024 1 0:11am Gastric ulcer October 20, 2024 1 0:11am Anemia January 04, 2025 7:03am Gastric ulcer January 04, 2025 7:03am COPD (chronic obstructive pulmonary dise ase) January 11, 2025 10:31am Nicotine dependence, cigarettes, uncompl icated January 11, 2025 10:31am Chief Complaint Admit Date COPD/O2 Usage January 11, 2025 10:31am SCREENING January 26, 2025 12: 35pm J44.9 - Chronic obstructive pulmonary di sease, uns February 14, 2025 12:27pm test results February 15, 2025 8:17 am E-ORDER February 15, 2025 9:03 am J44.9 - Chronic obstructive pulmonary di sease, uns February 16, 2025 12:14pm Encounter for surgical aftercare followi ng surgery February 20, 2025 10:48am Reason for Visit Admit Date Anemia January 04, 2025 7:03am Gastric ulcer January 04, 2025 7:03am COPD (chronic obstructive pulmonary dise ase) January 11, 2025 10:31am Nicotine dependence, cigarettes, uncompl icated January 11, 2025 10:31am Anemia February 15, 2025 8:17 am Esophageal varices February 15, 2025 8:17 am Gastric ulcer February 15, 2025 8:17 am Chief Complaint Admit Date COPD/O2 Usage January 11, 2025 10:31am SCREENING January 26, 2025 12: 35pm J44.9 - Chronic obstructive pulmonary di sease, uns February 14, 2025 12:27pm test results February 15, 2025 8:17 am E-ORDER February 15, 2025 9:03 am J44.9 - Chronic obstructive pulmonary di sease, uns February 16, 2025 12:14pm Encounter for surgical aftercare followi ng surgery February 20, 2025 10:48am 6MO LABS February 21, 2025 12:5 7pm MED ONC February 21, 2025 1:15 pm Reason for Visit Admit Date Anemia January 04, 2025 7:03am Gastric ulcer January 04, 2025 7:03am COPD (chronic obstructive pulmonary dise ase) January 11, 2025 10:31am Nicotine dependence, cigarettes, uncompl icated January 11, 2025 10:31am Anemia February 15, 2025 8:17 am Esophageal varices February 15, 2025 8:17 am Gastric ulcer February 15, 2025 8:17 am Iron (Fe) deficiency anemia February 21 12:57pm Chief Complaint Admit Date COPD/O2 Usage January 11, 2025 10:31am SCREENING January 26, 2025 12: 35pm J44.9 - Chronic obstructive pulmonary di sease, uns February 14, 2025 12:27pm test results February 15, 2025 8:17 am E-ORDER February 15, 2025 9:03 am J44.9 - Chronic obstructive pulmonary di sease, uns February 16, 2025 12:14pm Encounter for surgical aftercare followi ng surgery February 20, 2025 10:48am 6MO LABS February 21, 2025 12:5 7pm MED ONC February 21, 2025 1:15 pm J44.9 - Chronic obstructive pulmonary di sease, uns February 22, 2025 12:40pm Chief Complaint Admit Date COPD/O2 Usage January 11, 2025 10:31am SCREENING January 26, 2025 12: 35pm J44.9 - Chronic obstructive pulmonary di sease, uns February 14, 2025 12:27pm test results February 15, 2025 8:17 am E-ORDER February 15, 2025 9:03 am J44.9 - Chronic obstructive pulmonary di tatianae, uns February 16, 2025 12:14pm Encounter for surgical aftercare followi ng surgery February 20, 2025 10:48am 6MO LABS February 21, 2025 12:5 7pm MED ONC February 21, 2025 1:15 pm J44.9 - Chronic obstructive pulmonary di sease, uns February 22, 2025 12:40pm ESOPHAGEAL VARICES February 24, 2025 9:0 5am Chief Complaint Admit Date COPD/O2 Usage January 11, 2025 10:31am SCREENING January 26, 2025 12: 35pm J44.9 - Chronic obstructive pulmonary di sease, uns February 14, 2025 12:27pm test results February 15, 2025 8:17 am E-ORDER February 15, 2025 9:03 am J44.9 - Chronic obstructive pulmonary di tatianae, uns February 16, 2025 12:14pm Encounter for surgical aftercare followi ng surgery February 20, 2025 10:48am 6MO LABS February 21, 2025 12:5 7pm MED ONC February 21, 2025 1:15 pm J44.9 - Chronic obstructive pulmonary di sease, uns February 22, 2025 12:40pm ESOPHAGEAL VARICES February 24, 2025 9:0 5am 8 WK FU March 10, 2025 10: 05am Reason for Visit Admit Date Anemia January 04, 2025 7:03am Gastric ulcer January 04, 2025 7:03am COPD (chronic obstructive pulmonary dise ase) January 11, 2025 10:31am Nicotine dependence, cigarettes, uncompl icated January 11, 2025 10:31am Anemia February 15, 2025 8:17 am Esophageal varices February 15, 2025 8:17 am Gastric ulcer February 15, 2025 8:17 am Iron (Fe) deficiency anemia February 21 12:57pm Hypoxemia March 10, 2025 10: 05am COPD (chronic obstructive pulmonary dise ase) March 10, 2025 10:05am Nicotine dependence, cigarettes, uncompl icated March 10, 2025 10:05am Additional Source Comments INFORMATION SOURCE (unrecogn ized section and content) DATE CREATED AUTHOR 05/05/2018 [facility] DATE CREATED AUTHOR AUTHOR'S ORGANIZ ATION 01/03/2024 [facility] ([place]) DATE CREATED AUTHOR AUTHOR'S ORGANIZ ATION 04/18/2025 [facility] Care Teams (unrecognized sec tion and content) Team Status: Active Member Role Status Dates Carline Ashley WAITER/WAITRESS HEAD, WAITER/WAITRESS HEAD-C Family Provider Activ e Carline Ashley WAITER/WAITRESS HEAD, WAITER/WAITRESS HEAD-C Primary Care Provider Active Team Status: Inactive Member Role Status Dates Carline Ashley WAITER/WAITRESS HEAD, WAITER/WAITRESS HEAD-C Primary Care Provider, Attending Provider, Referring Provider Active Team Status: Inactive Member Role Status Dates Carline Ashley WAITER/WAITRESS HEAD, WAITER/WAITRESS HEAD-C Primary Care Provider Active Dr. Jeff Song MD Attending Provider, Referring Provider Active Team Status: Active Member Role Status Dates Carline Ashley WAITER/WAITRESS HEAD, WAITER/WAITRESS HEAD-C Primary Care Provider Active Dr. Josiane Tucker MD Emergency Provider Active Dr. Liz Murillo MD Admit Provider, Attending Provid er Active Team Status: Active Member Role Status Dates Carline Ashley WAITER/WAITRESS HEAD, WAITER/WAITRESS HEAD-C Primary Care Provider Active Dr. Josiane Tucker MD Emergency Provider Active Dr. Liz Murillo MD Admit Provider, Other Provider A ctive Dr. Armani Moses , DO Attending Provider, Other Provider Active Dr. Momo Camacho DPM Other Provider Active Dr. Selvin Frost MD Other Provider Active Team Status: Active Member Role Status Dates Carline Ashley WAITER/WAITRESS HEAD, WAITER/WAITRESS HEAD-C Primary Care Provider Active Dr. Josiane Tucker MD Emergency Provider Active Dr. Liz Murillo MD Admit Provider, Other Provider A ctive Dr. Momo Camacho DPM Other Provider Active Dr. Selvin Frost MD Other Provider Active Dr. Selvin Barrera , Attending Provider, Other Provid er Active Dr. Armani Moses , DO Other Provider Active Dr. Kevin Souza MD Other Provider Active Team Status: Active Member Role Status Dates Carline Ashley WAITER/WAITRESS HEAD, WAITER/WAITRESS HEAD-C Primary Care Provider Active Dr. Josiane Tucker MD Emergency Provider Active Dr. Liz Murillo MD Admit Provider, Other Provider A ctive Dr. Momo Camacho DPM Referring Provider, Other Prov ider Active Dr. Selvin Frost MD Attending Provider, Other Provide r Active Dr. Selvin Barrera , DO Other Provider Active Dr. Armani Moses , DO Other Provider Active Dr. Kevin Souza MD Other Provider Active Team Status: Active Member Role Status Dates Carline Ashley WAITER/WAITRESS HEAD, WAITER/WAITRESS HEAD-C Primary Care Provider Active Dr. Josiane Tucker MD Emergency Provider Active Dr. Liz Murillo MD Admit Provider, Other Provider A ctive Dr. Momo Camacho DPM Other Provider Active Dr. Slevin Frost MD Other Provider Active Dr. Selvin Barrera , Attending Provider, Other Provid er Active Dr. Armani Moses , DO Other Provider Active Dr. Kevin Souza MD Other Provider Active Dr. Lynn Enriqeuz MD Other Provider Active Team Status: Active Member Role Status Dates Carline Ashley WAITER/WAITRESS HEAD, WAITER/WAITRESS HEAD-C Primary Care Provider Active Dr. Josiane Tucker MD Emergency Provider Active Dr. Liz Murillo MD Admit Provider, Other Provider A ctive Dr. Selvin Barrera , DO Attending Provider, Other Provid er Active Dr. Armani Moses , DO Other Provider Active Dr. Kevin Souza MD Other Provider Active Dr. Lynn Enriquez MD Other Provider Active Dr. Momo Camacho DPM Other Provider Active Dr. Selvin Frost MD Other Provider Active Team Status: Active Member Role Status Dates Carline Ashley WAITER/WAITRESS HEAD, WAITER/WAITRESS HEAD-C Primary Care Provider Active Dr. Josiane Tucker MD Emergency Provider Active Dr. Liz Murillo MD Admit Provider, Other Provider A ctive Dr. Selvin Barrera , DO Other Provider Active Dr. Armani Moses , DO Other Provider Active Dr. Kevin Souza MD Other Provider Active Dr. Lynn Enriquez MD Other Provider Active Dr. Momo Camacho DPM Other Provider Active Dr. Selvin Frost MD Attending Provider, Referring Provider, Other Provider Active Team Status: Active Member Role Status Dates Carline Ashley WAITER/WAITRESS HEAD, WAITER/WAITRESS HEAD-C Primary Care Provider Active Dr. Kerline Oquendo MD Attending Provider Activ e Team Status: Active Member Role Status Dates Carline Ashley WAITER/WAITRESS HEAD, WAITER/WAITRESS HEAD-C Primary Care Provider Active Dr. Josiane Tucker MD Emergency Provider Active Dr. Liz Murillo MD Admit Provider, Other Provider A ctive Dr. Selvin Barrera , DO Other Provider Active Dr. Armani Moses , DO Other Provider Active Dr. Kevin Souza MD Other Provider Active Dr. Lynn Enriquez MD Other Provider Active Dr. Momo Camacho DPM Other Provider Active Dr. Selvin Frost MD Other Provider Active Maya Lu WAITER/WAITRESS HEAD-C Attending Provider Active Team Status: Active Member Role Status Dates Carline Ashley WAITER/WAITRESS HEAD, WAITER/WAITRESS HEAD-C Primary Care Provider Active Dr. Josiane Tucker MD Emergency Provider Active Dr. Liz Murillo MD Admit Provider, Other Provider A ctive Dr. Selvin Barrera , DO Other Provider Active Dr. Armani Moses , DO Other Provider Active Dr. Kevin Souza MD Other Provider Active Dr. Lynn Enriquez MD Other Provider Active Dr. Momo Camacho DPM Other Provider Active Dr. Selvin Frost MD Other Provider Active Katie Retana , PA Attending Provider Active Team Status: Active Member Role Status Dates Carline Ashley WAITER/WAITRESS HEAD, WAITER/WAITRESS HEAD-C Primary Care Provider Active Dr. Josiane Tucker MD Emergency Provider Active Dr. Liz Murillo MD Admit Provider, Other Provider A ctive Dr. Armani Moses , Attending Provider, Other Provider Active Dr. Kevin Souza MD Other Provider Active Dr. Lynn Enriquez MD Other Provider Active Dr. Momo Camacho DPM Other Provider Active Dr. Selvin Frost MD Other Provider Active Dr. Selvin Barrera DO Other Provider Active Team Status: Active Member Role Status Dates Carline Ashley WAITER/WAITRESS HEAD, WAITER/WAITRESS HEAD-C Primary Care Provider Active Dr. Josiane Tucker MD Emergency Provider Active Dr. Liz Murillo MD Admit Provider, Other Provider A ctive Dr. Armani Moses , Other Provider Active Dr. Kevin Souza MD Other Provider Active Dr. Lynn Enriquez MD Other Provider Active Dr. Momo Camacho DPM Other Provider Active Dr. Selvin Frost MD Attending Provider, Other Provide r Active Dr. Selvin Barrera DO Other Provider Active Team Status: Active Member Role Status Dates Carline Ashley WAITER/WAITRESS HEAD, WAITER/WAITRESS HEAD-C Primary Care Provider Active Dr. Josiane Tucker MD Emergency Provider Active Dr. Liz Murillo MD Admit Provider, Other Provider A ctive Dr. Armani Moses , Other Provider Active Dr. Kevin Souza MD Other Provider Active Dr. Lynn Enriquez MD Other Provider Active Dr. Momo Camacho DPM Other Provider Active Dr. Selvin Frost MD Other Provider Active Dr. Sevlin Barrera DO Other Provider Active MAO Brown Attending Provider Active Team Status: Active Member Role Status Dates Carline Ashley WAITER/WAITRESS HEAD, WAITER/WAITRESS HEAD-C Primary Care Provider Active Dr. Josiane Tucker MD Emergency Provider Active Dr. Liz Murillo MD Admit Provider, Other Provider A ctive Dr. Armani Moses DO Attending Provider, Other Provider Active Dr. Selvin Barrera DO Other Provider Active Dr. Kevin Souza MD Other Provider Active Dr. Lynn Enriquez MD Other Provider Active Dr. Momo Camacho DPM Other Provider Active Dr. Selvin Frost MD Other Provider Active Team Status: Inactive Member Role Status Dates Carline Ashley WAITER/WAITRESS HEAD, WAITER/WAITRESS HEAD-C Primary Care Provider Active Dr. Josiane Tucker MD Emergency Provider Active Dr. Liz Murillo MD Admit Provider, Other Provider A ctive Dr. Armani Moses , DO Attending Provider, Other Provider Active Dr. Selvin Barrera , Other Provider Active Dr. Kevin Souza MD Other Provider Active Dr. Lynn Enriquez MD Other Provider Active Dr. Momo Camacho DPM Other Provider Active Dr. Selvin Frost MD Other Provider Active Team Status: Active Member Role Status Dates Carline Ashley WAITER/WAITRESS HEAD, WAITER/WAITRESS HEAD-C Primary Care Provider Active Dr. Josiane Tucker MD Emergency Provider Active Dr. Liz Murillo MD Admit Provider, Other Provider A ctive Dr. Selvin Barrera , Other Provider Active Dr. Armani Moses , DO Referring Provider, Other Provider Active Dr. Kevin Souza MD Other Provider Active Dr. Lynn Enriquez MD Other Provider Active Dr. Momo Camacho DPM Other Provider Active Dr. Selvin Frost MD Other Provider Active MAO Brown Attending Provider Active Team Status: Active Member Role Status Dates Carline Ashley WAITER/WAITRESS HEAD, WAITER/WAITRESS HEAD-C Primary Care Provider Active Dr. Josiane Tucker MD Emergency Provider Active Dr. Liz Murillo MD Admit Provider, Other Provider A ctive Dr. Armani Moses , DO Referring Provider, Other Provider Active Dr. Kevin Souza MD Other Provider Active Dr. Lynn Enriquez MD Other Provider Active Dr. Momo Camacho DPM Other Provider Active Dr. Selvin Frost MD Attending Provider, Other Provide r Active Dr. Selvin Barrera , Other Provider Active Team Status: Active Member Role Status Dates Carline Ashley WAITER/WAITRESS HEAD, WAITER/WAITRESS HEAD-C Primary Care Provider Active Dr. Josiane Tucker MD Emergency Provider Active Dr. Liz Murillo MD Admit Provider, Other Provider A ctive Dr. Armani Moses , DO Referring Provider, Other Provider Active Dr. Kevin Souza MD Other Provider Active Dr. Lynn Enriquez MD Other Provider Active Dr. Momo Camacho DPM Other Provider Active Dr. Selvin Frost MD Other Provider Active Dr. Selvin Barrera , DO Other Provider Active MAO Brown Attending Provider Active Team Status: Active Member Role Status Dates Carline Ashley WAITER/WAITRESS HEAD, WAITER/WAITRESS HEAD-C Primary Care Provider Active Dr. Josiane Tucker MD Emergency Provider Active Dr. Liz Murillo MD Admit Provider, Other Provider A ctive Dr. Armani Moses , DO Referring Provider, Other Provider Active Dr. Selvin Barrera , DO Other Provider Active Dr. Kevin Souza MD Other Provider Active Dr. Lynn Enriquez MD Other Provider Active Dr. Momo Camacho DPM Other Provider Active Dr. Selvin Frost MD Other Provider Active MAO Brown Attending Provider Active Team Status: Active Member Role Status Dates Carline Ashley WAITER/WAITRESS HEAD, WAITER/WAITRESS HEAD-C Primary Care Provider Active Dr. Momo Camacho DPM Attending Provider, Referring Provider Active Team Status: Inactive Member Role Status Dates Carline Ashley WAITER/WAITRESS HEAD, WAITER/WAITRESS HEAD-C Primary Care Provider, Referring Provider Active MAO Brown Attending Provider Active Team Status: Inactive Member Role Status Dates Carline Ashley WAITER/WAITRESS HEAD, WAITER/WAITRESS HEAD-C Primary Care Provider Active Dr. Momo Camacho DPM Attending Provider, Referring Provider Active Team Status: Active Member Role Status Dates Carline Ashley WAITER/WAITRESS HEAD, WAITER/WAITRESS HEAD-C Primary Care Provider Active Dr. Selvin Frost MD Attending Provider Active Team Status: Active Member Role Status Dates Carline Ashley WAITER/WAITRESS HEAD, WAITER/WAITRESS HEAD-C Primary Care Provider Active MAO Brown Attending Provider, Referring Provid er Active Team Status: Inactive Member Role Status Dates Carline Ashley WAITER/WAITRESS HEAD, WAITER/WAITRESS HEAD-C Primary Care Provider Active MAO Brown Attending Provider, Referring Provid er Active Team Status: Active Member Role Status Dates Carline Ashley WAITER/WAITRESS HEAD, WAITER/WAITRESS HEAD-C Primary Care Provider Active Dr. Selvin Frost MD Attending Provider Active MAO Brown Referring Provider Active Team Status: Active Member Role Status Dates Carline Ashley WAITER/WAITRESS HEAD, WAITER/WAITRESS HEAD-C Primary Care Provider Active Team Status: Inactive Member Role Status Dates Carline Ashley WAITER/WAITRESS HEAD, WAITER/WAITRESS HEAD-C Primary Care Provider Active Start: October End: October 20, 2024 Carline Ashley WAITER/WAITRESS HEAD, WAITER/WAITRESS HEAD-C Referring Provider Active Start: October 20, 2024 End: October 20, 2024 MAO Byrd Attending Provider Active Start: October 20, 2024 End: October 20, 2024 Team Status: Inactive Member Role Status Dates Carline Ashley WAITER/WAITRESS HEAD, WAITER/WAITRESS HEAD-C Primary Care Provider Active Start: October End: October 20, 2024 MAO Byrd Attending Provider Active Start: October 20, 2024 End: October 20, 2024 MAO Byrd Referring Provider Active Start: October 20, 2024 End: October 20, 2024 Team Status: Inactive Member Role Status Dates Carline Ashley WAITER/WAITRESS HEAD, WAITER/WAITRESS HEAD-C Primary Care Provider Active Start: November [id number] End: November 11, 2024 Carline Ashley WAITER/WAITRESS HEAD, WAITER/WAITRESS HEAD-C Attending Provider Active Start: October End: November 11, 2024 Carline Ashley WAITER/WAITRESS HEAD, WAITER/WAITRESS HEAD-C Referring Provider Active Start: October End: November 11, 2024 Team Status: Inactive Member Role Status Dates Carline Ashley WAITER/WAITRESS HEAD, WAITER/WAITRESS HEAD-C Primary Care Provider Active Start: January [id number] End: January 04, 2025 Carline Ashley WAITER/WAITRESS HEAD, WAITER/WAITRESS HEAD-C Referring Provider Active Start: December End: January 04, 2025 Dr. Adi Kincaid DO Attending Provider Active Start: January 04, 2025 End: January 04, 2025 Team Status: Active Member Role Status Dates Carline Ashley WAITER/WAITRESS HEAD, WAITER/WAITRESS HEAD-C Primary Care Provider Active Start: January [id number] Carline Ashley WAITER/WAITRESS HEAD, WAITER/WAITRESS HEAD-C Referring Provider Active Start: December Dr. Adi Kincaid DO Attending Provider Active Start: January 04, 2025 Dr. Adi Kincaid DO Other Provider Active St art: January 04, 2025 Team Status: Inactive Member Role Status Dates Carline Ashley WAITER/WAITRESS HEAD, WAITER/WAITRESS HEAD-C Primary Care Provider Active Start: January [id number] End: January 11, 2025 Carline Ashley WAITER/WAITRESS HEAD, WAITER/WAITRESS HEAD-C Referring Provider Active Start: December End: January 11, 2025 Dr. Danis Bustos DO Attending Provider Active S tart: January 11, 2025 End: January 11, 2025 Team Status: Inactive Member Role Status Dates Carline Ashley WAITER/WAITRESS HEAD, WAITER/WAITRESS HEAD-C Primary Care Provider Active Start: January 26, 2025 End: January 26, 2025 Carline Ashley WAITER/WAITRESS HEAD, WAITER/WAITRESS HEAD-C Attending Provider Ac tive Start: January 26, 2025 End: January 26, 2025 Carline Mason Ashley WAITER/WAITRESS HEAD, WAITER/WAITRESS HEAD-C Referring Provider Ac tive Start: January 26, 2025 End: January 26, 2025 Team Status: Inactive Member Role Status Dates Carline Ashley WAITER/WAITRESS HEAD, WAITER/WAITRESS HEAD-C Primary Care Provider Active Start: February 14, 2025 End: February 14, 2025 Dr. Danis Bustos , Attending Provider Active S tart: February 14, 2025 End: February 14, 2025 Dr. Danis Bustos DO Referring Provider Active S tart: February 14, 2025 End: February 14, 2025 Team Status: Inactive Member Role Status Dates Carline Ashley WAITER/WAITRESS HEAD, WAITER/WAITRESS HEAD-C Primary Care Provider Active Start: February 15, 2025 End: February 15, 2025 Carline Ashley WAITER/WAITRESS HEAD, WAITER/WAITRESS HEAD-C Referring Provider Ac tive Start: February 15, 2025 End: February 15, 2025 MAO Byrd Attending Provider Active Start: February 15, 2025 End: February 15, 2025 Team Status: Active Member Role Status Dates Carline Ashley WAITER/WAITRESS HEAD, WAITER/WAITRESS HEAD-C Primary Care Provider Active Start: February 15, 2025 MAO Byrd Attending Provider Active Start: February 15, 2025 MAO Byrd Referring Provider Active Start: February 15, 2025 Team Status: Active Member Role Status Dates Carline Ashley WAITER/WAITRESS HEAD, WAITER/WAITRESS HEAD-C Primary Care Provider Active Start: February 16, 2025 Dr. Danis Bustos DO Attending Provider Active S tart: February 16, 2025 Dr. Danis Bustos DO Referring Provider Active S tart: February 16, 2025 Team Status: Active Member Role Status Dates Carline Ashley WAITER/WAITRESS HEAD, WAITER/WAITRESS HEAD-C Primary Care Provider Active Start: February 20, 2025 MAO Brown Attending Provider Active Star t: February 20, 2025 MAO Brown Referring Provider Active Star t: February 20, 2025 Team Status: Inactive Member Role Status Dates Carline Ashley WAITER/WAITRESS HEAD, WAITER/WAITRESS HEAD-C Primary Care Provider Active Start: February 15, 2025 End: February 15, 2025 MAO Byrd Attending Provider Active Start: February 15, 2025 End: February 15, 2025 MAO Byrd Referring Provider Active Start: February 15, 2025 End: February 15, 2025 Team Status: Active Member Role Status Dates Carline Ashley WAITER/WAITRESS HEAD, WAITER/WAITRESS HEAD-C Primary Care Provider Active Start: February 20, 2025 Dr. Selvin Frost MD Attending Provider Active S tart: February 20, 2025 Team Status: Inactive Member Role Status Dates Carline Ashley WAITER/WAITRESS HEAD, WAITER/WAITRESS HEAD-C Primary Care Provider Active Start: February 16, 2025 End: February 16, 2025 Dr. Danis Bustos DO Attending Provider Active S tart: February 16, 2025 End: February 16, 2025 Dr. Danis Bustos DO Referring Provider Active S tart: February 16, 2025 End: February 16, 2025 Team Status: Inactive Member Role Status Dates Carline Ashley WAITER/WAITRESS HEAD, WAITER/WAITRESS HEAD-C Primary Care Provider Active Start: February 21, 2025 End: February 21, 2025 Carline Ashley WAITER/WAITRESS HEAD, WAITER/WAITRESS HEAD-C Referring Provider Ac tive Start: February 21, 2025 End: February 21, 2025 Dr. Joseph Torres MD Attending Provider Active S tart: February 21, 2025 End: February 21, 2025 Team Status: Active Member Role Status Dates Carline Ashley WAITER/WAITRESS HEAD, WAITER/WAITRESS HEAD-C Primary Care Provider Active Start: February 21, 2025 Dr. Joseph Torres MD Attending Provider Active S tart: February 21, 2025 Dr. Joseph Torres MD Referring Provider Active S tart: February 21, 2025 Team Status: Inactive Member Role Status Dates Carline Ashley WAITER/WAITRESS HEAD, WAITER/WAITRESS HEAD-C Primary Care Provider Active Start: February 20, 2025 End: February 20, 2025 MAO Brown Attending Provider Active Star t: February 20, 2025 End: February 20, 2025 MAO Brown Referring Provider Active Star t: February 20, 2025 End: February 20, 2025 Team Status: Active Member Role Status Dates Carline Ashley WAITER/WAITRESS HEAD, WAITER/WAITRESS HEAD-C Primary Care Provider Active Start: February 22, 2025 Dr. Danis Bustos DO Attending Provider Active S tart: February 22, 2025 Dr. Danis Bustos , Referring Provider Active S tart: February 22, 2025 Dr. Danis Bustos , DO Other Provider Active Start : February 22, 2025 Team Status: Active Member Role Status Dates Carline Ashley WAITER/WAITRESS HEAD, WAITER/WAITRESS HEAD-C Primary Care Provider Active Start: February 20, 2025 Dr. Selvin Frost MD Attending Provider Active S tart: February 20, 2025 MAO Brown Referring Provider Active Star t: February 20, 2025 Team Status: Inactive Member Role Status Dates Carline Ashley NP, WAITER/WAITRESS HEAD-C Primary Care Provider Active Start: February 24, 2025 End: February 24, 2025 MAO Byrd Attending Provider Active Start: February 24, 2025 End: February 24, 2025 MAO Byrd Referring Provider Active Start: February 24, 2025 End: February 24, 2025 Team Status: Inactive Member Role Status Dates Carline Ashley WAITER/WAITRESS HEAD, WAITER/WAITRESS HEAD-C Primary Care Provider Active Start: March 10, 2025 End: March 10, 2025 Carline Ashley NP, WAITER/WAITRESS HEAD-C Referring Provider Ac tive Start: March 10, 2025 End: March 10, 2025 Rupali Deng NP-C Attending Provider Active Start: March 10, 2025 End: March 10, 2025 Team Status: Inactive Member Role Status Dates Carline Ashley WAITER/WAITRESS HEAD, WAITER/WAITRESS HEAD-C Primary Care Provider Active Start: April 12, 2025 End: April 12, 2025 Carline Ashley NP, WAITER/WAITRESS HEAD-C Attending Provider Ac tive Start: April 12, 2025 End: April 12, 2025 Carline Ashley NP, WAITER/WAITRESS HEAD-C Referring Provider Ac tive Start: April 12, 2025 End: April 12, 2025 Goals (unrecognized section and content) Goals may be documented in a n alternate section No data available for this sectionGoals may be documented in an alternate sectionGoals may be documented in an alternate section FOR RECORDS PERTAINING TO PATIENTS WHO ARE [...] BE BASED ON THE PRIMARY CLINICAL RECORDS. [facility]. provides no warranty or guarantee of the accuracy or completeness of information in this document.
[2025-04-18] MEDS: Lactated Ringers 1,000 ML 15 ML IV (06:00)
--- NOTE | 2025-04-18 06:22 | PRE.ANES_ITS ---
ASA Classification* ASA Classification ASA Classification: 3 Assessment & Plan Anesthesia* Anesthesia Assessment Anesthesia Assessment: Discussed sedation and/or anesthesia options, risks, benefits, and alternatives with patient/parents/legal guardian/POA. Questions invited. The patient/parents/legal guardian/POA seems to understand and agrees to proceed with anesthesia plan. Reviewed the physical assessment, medical history, allergy history and patient home medications list prior to surgery/procedure/anesthetic and documented any changes. Performed airway and anesthesia risk assessments. Anesthesia Type Anesthesia Type: MAC History Source History Obtained from:: Patient and Chart Anesthesia Focused Assessment* Temperature: 98.0 F Pulse Rate: 95 Blood Pressure: 113/75 Respiratory Rate: 20 Pulse Ox: 94 Oxygen Delivery Method: Room Air Airway Assessment Mouth opens: >3 cm Mallampati Score: III Teeth Condition: Dentures (Patient has full upper and lower dentures. They are out.) Neck Range of motion (ROM): Limited ROM (Slight decrease in extension.) Focused Labs Anesthesia Preop lab: CBC WBC 9.0 K/mm3 (4.4-11.0) 04/12/25 13:14 04/12/25 RBC 4.62 M/mm3 (4.2-5.4) 04/12/25 13:14 04/12/25 Hgb 12.6 g/dL (12.0-15.0) 04/12/25 13:14 04/12/25 Hct 40.7 % (37-47) 04/12/25 13:14 04/12/25 Plt Count 302 K/mm3 (150-450) 04/12/25 13:14 04/12/25 CHEMISTRY Potassium 3.9 mmol/L (3.3-5.1) 04/12/25 13:14 04/12/25 Sodium 139 mmol/L (133-145) 04/12/25 13:14 04/12/25 Magnesium 1.7 mg/dL (1.5-2.2) 04/12/25 13:14 04/12/25 Phosphorus 2.5 mg/dL (2.5-4.9) 09/06/24 14:21 09/06/24 BUN 13 mg/dL (4-19) 04/12/25 13:14 04/12/25 Creatinine 0.65 mg/dL (0.70-1.20) L 04/12/25 13:14 Glucose 89 mg/dL (70-99) 04/12/25 13:14 04/12/25 POC Glucose 92 mg/dL (74-106) 05/10/24 11:15 05/10/24 TSH 1.68 uIU/mL (0.358-3.74) 05/04/24 06:10 COAG PT 16.6 SECONDS (11.7-14.9) H 05/22/24 09:20 07/0 06/08 Pre-Assessment Diagnosis/Proposed Procedure Planned Operative Procedure(s): EGD Anesthesia History Anesthesia History - email marketing coordinator: Anesthesia History - email marketing coordinator Hx Hospitalization No 04/12/25 14:27 Any Problems With Anesthesia No 04/12/25 14:27 Cholinesterase deficiency No 04/12/25 14:27 You/Your Family Experience No 04/12/25 14:27 fever (hyperthermia) with Relationship Recent Exposure to Contagious No 04/18/25 05:44 Disease Does patient have nerve No 04/12/25 14:27 stimulator Patient instructed to have device shut off --Does patient have Pacemaker No 04/18/25 05:44 or ICD? When Was Last Pacemaker Check QUESTION #4 FULL TEXT: You/Your Family Experience fever (hyperthermia) with Anesthesia Last Oral Intake Last Oral intake: Last Oral Intake NPO since 23:00 04/18/25 05:44 Meds taken in AM with sips of Yes 04/18/25 05:44 water? Meds patient instructed to take am of surgery PONV PONV - email marketing coordinator: PONV - email marketing coordinator Female Yes 04/12/25 14:27 HX of Motion Sickness No 04/12/25 14:27 HX of N/V After Surgery No 04/12/25 14:27 Non-Smoker No 04/12/25 14:27 Duration of Surgery greater No 04/12/25 14:27 than 60 minutes Number of Risk Factors 1 04/12/25 14:27 PONV Score Low Risk 04/12/25 14:27 Height & Weight Height & Weight: Anesthesia: Height & Weight Height 5 ft 2 in 04/18/25 05:44 Weight: 83 kg 04/18/25 05:44 Body Mass Index (BMI) 33.5 04/18/25 05:44 Respiratory Assessment Respiratory Assessment - email marketing coordinator: Respiratory Tract Infection Hx - email marketing coordinator Hx Respiratory Tract Infection No 04/12/25 14:27 Any additional information?: Yes Hx Respiratory Tract Infection: No History of Anesthesia Respiratory Infection details: History chronic cough secondary to COPD. STOP Sleep Apnea STOP Sleep Apnea - email marketing coordinator: STOP Sleep Apnea - email marketing coordinator Hx Hypertension Yes: per pt, controlled with 04/12/25 14:27 med Hx Sleep Apnea No 04/12/25 14:27 CPAP No 04/12/25 14:27 BIPAP No 04/12/25 14:27 Do you snore loudly (louder No 04/12/25 14:27 than talking or can be heard Do you often feel tired/ No 04/12/25 14:27 fatigued/ sleepy during daytime? Has anyone observed you stop No 04/12/25 14:27 breathing during sleep? STOP Results Negative 04/12/25 14:27 QUESTION #5 FULL TEXT : Do you snore loudly (louder than talking or can be heard through closed doors)? 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 Specify any problems Hx of Preganancy in last 3 N/A 04/12/25 14:27 Months Nurse Filling Out Transfusion NBUCHER 04/12/25 14:27 & Questions: Date: 04/12/25 04/12/25 14:27 Time: 04/12/25 14:27 Patient unable to answer at this time (ie. confused, unrespo /Reproduction History /Reproductive History - email marketing coordinator: /Reproductive Hx- email marketing coordinator Hx Now No 04/12/25 14:27 Gestational Age (in weeks): EDC: Hx Hx Para Hx Section SAB No 04/12/25 14:27 Active Medications Active Medications: Current Medications Generic Name Dose Route Start Last Admin Trade Name Freq PRN Reason Stop Dose Admin Lactated Ringer's 1,000 mls @ 15 mls/hr 04/18/25 05:30 04/18/25 06:00 IV 15 mls/hr .Q48H ERNST Administration PFSH Medical History Excessive bleeding Gastric reflux On home oxygen therapy Chronic cough Wears dentures Post-menopausal Cancer Low iron History of ulceration Smoker COPD (chronic obstructive pulmonary disease) History of echocardiogram Encounter for screening for malignant neoplasm of lung Amputated toe of left foot Vitamin D deficiency Hyperlipidemia Hypertension COPD with asthma Hypomagnesemia Hypocalcemia Hypokalemia Anticoagulant long-term use AVM (arteriovenous malformation) Colitis Transfusion of blood during current hospitalisation Antiplatelet or antithrombotic long-term use Iron (Fe) deficiency anemia Atherosclerosis of [place] arteries of extremities with gangrene, left leg Carotid stenosis, bilateral Tobacco abuse Peripheral arterial occlusive disease Cervical cancer PVD (peripheral vascular disease) Arthritis Home Medications ?Medication ?Instructions ?Recorded ?Last Taken ?Type albuterol sulfate 90 mcg/actuation 2 puff inhalation Q 6H PRN 01/08/24 01/03/25 History aerosol inhaler shortness of breath or wheez ing amlodipine 5 mg tablet 5 mg PO 1600 blood pressure 01/08/24 01/03/25 History rosuvastatin 10 mg tablet 10 mg PO DAILY cholesterol 0 01/08/24 01/03/25 History cholecalciferol (vitamin D3) 1,250 1,250 mcg PO QMONTH vitamin 05/03/24 01/03/25 History mcg (50,000 unit) capsule oxymetazoline 0.05 % nasal spray 2 spray intranasal BI D PRN nasal 05/18/24 01/03/25 History (12 Hour Nasal Relief [place]) congestion clopidogrel 75 mg tablet (Plavix) 75 mg PO DAILY #90 t abs 02/15/25 04/15/25 Rx pantoprazole 40 mg tablet,delayed 40 mg PO BID #90 tab s 02/15/25 Unknown Rx release fluticasone fur. 100 mcg-umeclid 1 inh inhalation Q24H #60 ea 04/04/25 Unknown Rx 62.5 mcg-vilant 25 mcg inhalat.powder (Trelegy Ellipta) Allergy/AdvReac Type Severity Reaction Status Date / Time No Known Allergies Allergy Verified 04/18/25 05:48 Family History Mother Breast cancer Surgical History History of amputation of toe History of colonoscopy History of esophagogastroduodenoscopy (EGD) S/P femoral-femoral bypass surgery S/P LEFT ARTERIOGRAM Social History household members: none Smoking Status: Current some day smoker tobacco type: cigarettes alcohol intake: former substance use type: does not use caffeine: Yes (coffee) Type: coffee Review of Systems (Anesthesia) ROS Narrative System reviewed and no additional complaints, except as documented. Physical Exam Resp clear to auscultation bilaterally
--- NOTE | 2025-04-18 06:30 | EGD_PTH ---
PATIENT: TONY BRADLEY LOC: EN U#:[id number] AGE/SX: 69/F ROOM: RE04/18/[address]: Dr. Adi Kincaid DO : 1955 BED: DIS: 04/18/2025 SPEC #: [id number] RECD: 04/18/25 10:22 STATUS: ALEXANDRO TRISTIN #: [id number] KIKE: 04/18/25 06:[address]: Adi Kincaid DEPT: SURGICAL PATHOLOGY RECD BY: Manav Pisano ENTERED: 04/18/25 11:17 SP TYPE: EGD BIOPSY DOV DR: Vincent Ashley, SHAPER SETTER-C Tissues: A - Esophagus, NOS Procedures: Surgery Specimen Level IV HEADER OPERATION: EGD with cautery and clip of AVM and biopsy of esophagus PRE-OP DIAGNOSIS: Esophageal varices, anemia, gastric ulcer TISSUE SUBMITTED: A- Random esophagus biopsy MICROSCOPIC DIAGNOSIS A. Esophagus, random, biopsy: Benign squamous mucosa. Negative for eosinophils. MICROSCOPIC DESCRIPTION Slides are reviewed. GROSS DESCRIPTION A. Received in formalin in a container labeled with the patient's name, date of , and random esophagus biopsy are multiple hemphill-pink fragments of mucosal tissue measuring 0.7 x 0.5 x 0.3 cm in aggregate. Submitted in toto in A1. B 04-18-2025 CPT:18243
--- NOTE | 2025-04-18 07:08 | HP.PCM_ITS ---
HPI - General General Date of Admission: 04/18/25 Date of Service: 04/18/25 Chief Complaint: Anemia and gastric ulcer HPI Narrative TONY BRADLEY, is a 69 F who presents for evaluation of GI bleed PMHx og GI bleeding from AVMs and gastric ulcers. EGD 05.22.24; - Grade I esophageal varices. - Oozing gastric ulcers with a visible vessel. Injected. Treated with a heater probe. - Normal second portion of the duodenum. - No specimens collected. Colonoscopy 05.06.24;- Preparation of the colon was fair. - Three bleeding colonic angiodysplastic lesions. Treated with a heater probe. - Diverticulosis in the recto-sigmoid colon and in the sigmoid colon. - Stool in the sigmoid colon, in the transverse colon and in the ascending colon. - Patchy moderate inflammation was found in the sigmoid colon, in the ascending colon and in the cecum secondary to colitis. Biopsied. - Stricture in the terminal ileum. Biopsied. EGD 09.13.24 LA Grade A reflux esophagitis with no bleeding. - Medium-sized hiatal hernia. - Red blood in the gastric body. - Non-bleeding gastric ulcers with no stigmata of bleeding. - Three bleeding angiodysplastic lesions in the stomach. - Normal first portion of the duodenum. Biopsied. Last OV 12; Pt doing well with no GI concerns. Scheduled for repeat EGD. Continue PPI EGD 01.04.25; - Normal esophagus. - Medium-sized hiatal hernia. - Oozing gastric ulcer with pigmented material. Treated with hot biopsy forceps. - No gross lesions in the duodenal bulb and in the first portion of the duodenum. - No specimens collected. [facility] Medical History Excessive bleeding Gastric reflux On home oxygen therapy Chronic cough Wears dentures Post-menopausal Cancer Low iron History of ulceration Smoker COPD (chronic obstructive pulmonary disease) History of echocardiogram Encounter for screening for malignant neoplasm of lung Amputated toe of left foot Vitamin D deficiency Hyperlipidemia Hypertension COPD with asthma Hypomagnesemia Hypocalcemia Hypokalemia Anticoagulant long-term use AVM (arteriovenous malformation) Colitis Transfusion of blood during current hospitalisation Antiplatelet or antithrombotic long-term use Iron (Fe) deficiency anemia Atherosclerosis of [place] arteries of extremities with gangrene, left leg Carotid stenosis, bilateral Tobacco abuse Peripheral arterial occlusive disease Cervical cancer PVD (peripheral vascular disease) Arthritis Home Medications ?Medication ?Instructions ?Recorded ?Last Taken ?Type albuterol sulfate 90 mcg/actuation 2 puff inhalation Q 6H PRN 01/08/24 01/03/25 History aerosol inhaler shortness of breath or wheez ing amlodipine 5 mg tablet 5 mg PO 1600 blood pressure 01/08/24 01/03/25 History rosuvastatin 10 mg tablet 10 mg PO DAILY cholesterol 0 01/08/24 01/03/25 History cholecalciferol (vitamin D3) 1,250 1,250 mcg PO QMONTH vitamin 05/03/24 01/03/25 History mcg (50,000 unit) capsule oxymetazoline 0.05 % nasal spray 2 spray intranasal BI D PRN nasal 05/18/24 01/03/25 History (12 Hour Nasal Relief [place]) congestion clopidogrel 75 mg tablet (Plavix) 75 mg PO DAILY #90 t abs 02/15/25 04/15/25 Rx pantoprazole 40 mg tablet,delayed 40 mg PO BID #90 tab s 02/15/25 Unknown Rx release fluticasone fur. 100 mcg-umeclid 1 inh inhalation Q24H #60 ea 04/04/25 Unknown Rx 62.5 mcg-vilant 25 mcg inhalat.powder (Trelegy Ellipta) Allergy/AdvReac Type Severity Reaction Status Date / Time No Known Allergies Allergy Verified 04/18/25 05:48 Family History Mother Breast cancer Surgical History History of amputation of toe History of colonoscopy History of esophagogastroduodenoscopy (EGD) S/P femoral-femoral bypass surgery S/P LEFT ARTERIOGRAM Social History household members: none Smoking Status: Current every day smoker (Patient smoked today.) tobacco type: cigarettes alcohol intake: former substance use type: does not use caffeine: Yes (coffee) Type: coffee ROS Constitutional Constitutional: Denies fatigue, fever(s), poor appetite, weight gain or weight loss Gastrointestinal Gastrointestinal: Denies belching, bloating, change in bowel habits, change in stool character, chewing difficulty, coffee ground emesis, constipation, cramping, diarrhea, dyspepsia, dysphagia, early satiety, excessive flatus, fecal incontinence, heartburn, hematemesis, hematochezia, hemorrhoids, loose stools, melena, nausea, odynophagia, rectal bleeding, tenesmus, vomiting or weight changes Vital Signs Vital Signs Vital Signs: 04/18/25 05:44 04/18/25 05:44 04/18/25 06:30 Temperature 98.0 F 98.0 F Temperature Source Temporal Pulse Rate 95 95 Respiratory Rate 20 H 20 H Respiratory Pattern Normal Blood Pressure 113/75 113/75 Blood Pressure Mean 87 Blood Pressure Source Monitor Blood Pressure Position Semi-Fowlers Blood Pressure Location Left Arm Pulse Ox 94 94 Oxygen Delivery Method Room Air Room Air Weight Weight: 182 lb 15.739 oz Body Mass Index (BMI) 33.5 Physical Exam Const alert, oriented x3, no apparent distress and healthy appearing General Appearance: cooperative GI normal to inspection, nondistended, normoactive bowel sounds, soft to palpation, non-tender and non-distended Percussion: normal to percussion Rectal Exam: deferred Assessment & Plan Assessment/Plan (1) Esophageal varices: (2) Anemia: (3) Gastric ulcer: PLAN: Assessment and Plan Assessment and Plan (1) Esophageal varices: Status: Acute Plan: This is a 69 yo female pt with PMHx of GI bleeding and anemia. Pt underwent repeat EGD in Dec 2024 which showed gastric ulcers. Pt has been doing well with no complaints. She denies blood in her stool, lightheadedness, or dizziness. She continues to smoke a few per week. I counseled on smoking cessation to help heal her gastric ulcers. She will undergo repeat EGD to ensure healing. I have increased her PPI to 40 mg BID. I ordered CBC to monitor her hemoglobin. SHe has gastric varix on prior EGD. I will order liver elastography to rule out fibrosis. She denies hx of alcohol use. -EGD -Increase PPI -liver elastography -CBC (2) Gastric ulcer: Status: Acute (3) Anemia: Status: Acute Orders: Orders ABD Limited w/ Elastography Today I85.00 - Esophageal varices without bleeding CBC W/Diff, Automated Today D64.9 - Anemia, unspecified Medications: New pantoprazole 40 mg PO BID 90 tabs 3RF
--- NOTE | 2025-04-18 07:33 | OP.CCLET_ITS ---
04/18/2025 Vincent Ashley Re : Upper GI endoscopy procedure for Brenda Macedo Dear Dion This procedure was performed on Friday, April 18, 2025. My impressions and recommendations are as follows: Impressions : - Esophageal plaques were found, consistent with candidiasis. Biopsied. - Red blood in the gastric body. - One bleeding angiodysplastic lesion in the stomach. Treated with a heater probe. Clip was placed. 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 - A few non-bleeding angiodysplastic lesions in the duodenum. Treated with a heater probe. Recommendations : - Discharge patient to home. - Resume previous diet. - Continue present medications. - Await pathology results. My findings are described in the full procedure note, which is enclosed. If I can be of further assistance, please feel free to contact me at . Sincerely, Adi Kincaid, DO 04/18/2025 7:32:25 AM This report has been signed electronically.
--- NOTE | 2025-04-18 07:33 | OP.EGD_ITS ---
Patient Name: Brenda Macedo Procedure Date: 04/18/2025 6:22 AM Date of : 1955 Age: 69 Procedure: Upper GI endoscopy Indications: Iron deficiency anemia, Recent gastrointestinal bleeding, Follow-up of peptic ulcer, Follow-up of esophageal varices Providers: Adi Kincaid DO Referring MD: Vincent Ashley Medicines: Monitored Anesthesia Care Patient Profile: This is a 69 year old female. Refer to note in patient chart for documentation of history and physical. Patient has symptoms. Complications: No immediate complications. Procedure: Pre-Anesthesia Assessment: - Prior to the procedure, a History and Physical was performed, and patient medications and allergies were reviewed. The patient is competent. The risks and benefits of the procedure and the sedation options and risks were discussed with the patient. All questions were answered and informed consent was obtained. Patient identification and proposed procedure were verified by the physician in the pre-procedure area. Mental Status Examination: alert and oriented. Airway Examination: normal oropharyngeal airway and neck mobility. Respiratory Examination: clear to auscultation. CV Examination: normal. Prophylactic Antibiotics: The patient does not require prophylactic antibiotics. Prior Anticoagulants: The patient has taken no anticoagulant or antiplatelet agents except for NSAID medication. ASA Grade Assessment: II - A patient with mild systemic disease. After reviewing the risks and benefits, the patient was deemed in satisfactory condition to undergo the procedure. The anesthesia plan was to use monitored anesthesia care (MAC). Immediately prior to administration of medications, the patient was re-assessed for adequacy to receive sedatives. The heart rate, respiratory rate, oxygen saturations, blood pressure, adequacy of pulmonary ventilation, and response to care were monitored throughout the procedure. The physical status of the patient was re-assessed after the procedure. After obtaining informed consent, the endoscope was passed under direct vision. Throughout the procedure, the patient's blood pressure, pulse, and oxygen saturations were monitored continuously. The gastroscope was introduced through the mouth, and advanced to the fourth part of the duodenum. Small bowel enteroscopy was deemed necessary. The upper GI endoscopy was accomplished without difficulty. The patient tolerated the procedure well. Scope In: 7:15:37 AM Scope Out: 7:25:06 AM Total Procedure Duration Time 0 hours 9 minutes 29 seconds Findings: Patchy, white plaques were found in the upper third of the esophagus and in the middle third of the esophagus. Biopsies were taken with a cold forceps for histology. Verification of patient identification for the specimen was done. Estimated blood loss was minimal. Red blood was found in the gastric body. One 5 mm angiodysplastic lesion with bleeding was found in the gastric body. Coagulation for hemostasis using heater probe was successful. Estimated blood loss was minimal. For location marking, one hemostatic clip was successfully placed. 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 There was no bleeding at the end of the procedure. A few 5 mm angiodysplastic lesions without bleeding were found in the first portion of the duodenum, in the second portion of the duodenum and in the third portion of the duodenum. Coagulation for destruction of remaining portion of lesion using heater probe was successful. Estimated blood loss was minimal. Impression: - Esophageal plaques were found, consistent with candidiasis. Biopsied. - Red blood in the gastric body. - One bleeding angiodysplastic lesion in the stomach. Treated with a heater probe. Clip was placed. 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 - A few non-bleeding angiodysplastic lesions in the duodenum. Treated with a heater probe. Recommendation: - Discharge patient to home. - Resume previous diet. - Continue present medications. - Await pathology results. Procedure Code(s): --- Professional --- 48316, 59, Small intestinal endoscopy, enteroscopy beyond second portion of duodenum, not including ileum; with control of bleeding (eg, injection, bipolar cautery, unipolar cautery, laser, heater probe, stapler, plasma independent film maker) 32538, 51, Small intestinal endoscopy, enteroscopy beyond second portion of duodenum, not including ileum; with biopsy, single or multiple 15959, Unlisted procedure, stomach CPT copyright 2021 [employer]. All rights reserved. The codes documented in this report are preliminary and upon private wealth advisor review may be revised to meet current compliance requirements. Adi Kincaid DO 04/18/2025 7:32:25 AM This report has been signed electronically. Number of Addenda: 1 Note Initiated On: 04/18/2025 6:22 AM Addendum Number: 1 Addendum Date: 04/18/2025 3:23:27 PM code 70816 refers to ablation of patient's angiodysplastic lesions that were seen deep into her small bowel with the use of monophasic heater probe technique. This is different from ablation of actively bleeding angiodysplastic lesions that were treated differently during the procedure. Adi Kincaid DO 04/18/2025 3:24:36 PM This report has been signed electronically.
--- NOTE | 2025-04-18 07:35 | PCM.POST.ANE ---
Anesthesia: Postop Eval I Current Vital Signs Temperature: 97.2 F Pulse Rate: 97 Blood Pressure: 109/59 Respiratory Rate: 16 Pulse Ox: 93 Oxygen Delivery Method: Nasal Cannula Oxygen Flow Rate (L/min): 3 Assessment Airway patent: Yes Spontaneous unlabored respirations: Yes Mental status: Awake and Calm nausea: No Vomiting: No Anesthesia Complication: Yes Anesthesia Complication Comment:: O2 desat d/t persistent cough Fluid Hydration Crystalloid volume administer (ml): 400 Total IV fluid infused: 400 Progress Note Anesthesia document: Postop Eval 1 completed: Yes
--- NOTE | 2025-04-18 07:55 | PCM.POSTANE2 ---
Anesthesia Postop Eval I Sum Postop Eval Completion status Anesthesia document: Postop Eval 1 completed: Yes Anesthesia Postop Eval I Summary Anesthesia Postop Eval I Summary: Anesthesia Postop Eval I: Assessment Summary Airway patent Yes 04/18/25 07:36 [email or web address] Spontaneous unlabored Yes 04/18/25 07:36 [email or web address] respirations Mental status Awake,Calm 04/18/25 07:36 [email or web address] nausea No 04/18/25 07:36 [email or web address] Vomiting No 04/18/25 07:36 [email or web address] Anesthesia Postop Eval I: Fluid Summary Crystalloid volume administer 400 04/18/25 07:36 [email or web address] (ml) Colloids volume administered ( ml) Blood Product volume administered (ml) Total IV fluid infused 400 04/18/25 07:36 [email or web address] Anesthesia Postop Eval I: Summary Notes Anesthesia Complication Yes 04/18/25 07:36 [email or web address] Anesthesia Complication O2 desat d/t 04/18/25 07:36 [email or web address] Comment: persistent cough Post-operative progress note Anesthesia: Postop Eval II Evaluation Mental status: Awake Pain Level: 0 nausea: No Vomiting: No Progress Note Post-operative progress note: Patient having some wheezing and the PACU-gave her nebulizer breathing treatment. Complications Anesthesia Complication: No
== END 2025-04-18 08:13 | disposition home or self-care (01) ==
LOC: EN 05:22 → AC 05:23
PROVIDERS: PCP Nurse Practitioner Family; Referring Provider Nurse Practitioner Family; Visit Provider Internal Medicine Gastroenterology
PROC: 0DJ08ZZ Inspection of Upper Intestinal Tract, Via Natural or Artificial Opening Endoscopic (ICD-10-PCS; CPT 43235; principal; 2025-04-18 06:25)
DX: K31.811 Angiodysplasia of stomach and duodenum with bleeding (principal); J44.9 Chronic obstructive pulmonary disease, unspecified; D50.9 Iron deficiency anemia, unspecified; I10 Essential (primary) hypertension; E78.5 Hyperlipidemia, unspecified; F17.210 Nicotine dependence, cigarettes, uncomplicated; Z99.81 Dependence on supplemental oxygen; Z79.02 Long term (current) use of antithrombotics/antiplatelets; Z79.51 Long term (current) use of inhaled steroids; Z79.899 Other long term (current) drug therapy
CPT/HCPCS: 43239; 43255; 88305; C1889; J2405

== ENCOUNTER → 2025-05-10 | Outpatient (CLI) | payer MEDICARE, SELFPAY ==
[2025-05-10 11:55] LABS: Absolute Neutrophil Count 6.8 X10^3/uL (2.0-7.7); Basophil# 0.03 X10^3/uL; Basophil% 0.3 % (0-1); Eosinophil# 0.12 X10^3/uL; Eosinophils% 1.3 % (0-5); Erythrocyte Sedimentation Rate 34 mm/hr (0-30); Hematocrit 37.9 % (37-47); Hemoglobin 11.8 g/dL (12.0-15.0); Lymphocyte % 15.5 % (19-41); Mean Corp Hgb Conc 31.1 g/dL (32-36); Mean Corpuscular Hgb 27.3 pg (27.0-32.0); Mean Corpuscular Volume 87.7 fL (81-99); Mean Platelet Vol. 10.3 fl (6.2-12.0); Monocyte# 0.65 X10^3/uL; Monocyte% 7.2 % (0-10); NRBC Flagged by Analyzer 0 % (0-5); Neutrophil # 6.81 X10^3/uL (2.7-7.7); Neutrophil % 75.1 % (47-70); Platelet Count 307 K/mm3 (150-450); RBC Distribution Width CV 14.3 % (11.6-14.6); RBC Distribution Width SD 45.6 fl (35.1-43.9); Red Blood Count 4.32 M/mm3 (4.2-5.4); White Blood Count 9.1 K/mm3 (4.4-11.0)
[2025-05-10 11:58] LABS: Prothrombin Time (Protime)PT. 13.2 SECONDS (11.7-14.9)
[2025-05-10 12:39] LABS: Ammonia 23.1 umol/L (11-51)
[2025-05-10 12:41] LABS: ALB/GLOB Ratio 1.4 RATIO (0.9-2.4); AST(SGOT) 15 U/L (<=31); Alanine Aminotransfer ALT/SGPT 13 U/L (<=34); Albumin, Serum 4.1 g/dL (3.4-4.8); Alkaline Phosphatase 75 U/L (35-104); Anion Gap 11 (5-15); BUN 13 mg/dL (4-19); BUN/Creat Ratio 18.6 RATIO (10-20); CRP 6.49 mg/L (0.0-3.0); Calcium,Total 9.4 mg/dL (7.6-11.0); Carbon Dioxide 28.1 mmol/L (21.0-32.0); Chloride 102 mmol/L (98-108); Cholesterol 142 mg/dL (<=200); Creatinine, Serum 0.68 mg/dL (0.70-1.20); EST Glomerular Filtration Rate 95 (>60); Globulin 2.8 g/dL (2.2-4.2); Glucose 95 mg/dL (70-99); High Density Lipoprotein 46 mg/dL; Low Density Lipoprotein Calc. 82 mg/dL; Potassium 3.2 mmol/L (3.3-5.1); Protein, Total 6.9 g/dL (5.9-8.4); Sodium Level 140 mmol/L (133-145); Total Bilirubin 0.45 mg/dL (0.00-1.30); Triglycerides 69 mg/dL; Very Low Density Lipoprotein 14 mg/dL (5-40); cholesterol:hdl ratio screen 3.07
[2025-05-11 17:07] LABS: Anti-Centromere B Ab <0.2 AI (0.0-0.9); Anti-Chromatin <0.2 AI (0.0-0.9); Anti-Jo <0.2 AI (0.0-0.9); Anti-Mitochondrial AB <20.0 Units (0.0-20.0); Anti-Scleroderma-70 AB <0.2 AI (0.0-0.9); Anti-dsDNA Ab <1 IU/mL (0-9); RNP Ab <0.2 AI (0.0-0.9); SJOGREN'S Anti-SS-A test < 0.2 AI (0.0-0.9); SJOGREN'S Anti-SS-B test < 0.2 AI (0.0-0.9); Smith Ab <0.2 AI (0.0-0.9)
[2025-05-12 20:08] LABS: AFP, Tumor Marker 3.5 ng/mL (0.0-9.2); Angiotensin Convert Enzyme 37 U/L (14-82); Anti-Smooth Muscle ABS 4 Units (0-19); Ceruloplasmin 29.2 mg/dL (19.0-39.0); Copper, Serum or Plasma 114 ug/dL (80-158); Cytoplasmic Ab (C-ANCA) <1:20 titer (Neg:<1:20); HEPATITIS B SURFACE AG Negative (Negative); Hep C Antibodies Non Reactive (Non Reactive); Hepatitis A IgM Antibody Negative (Negative); Hepatitis B Core AB IgM Negative (Negative); Perinuclear Ab (P-ANCA) <1:20 titer (Neg:<1:20)
== END | disposition home or self-care (01) ==
LOC: LAB 10:28
PROVIDERS: PCP Nurse Practitioner Family; Referring Provider Student in an Organized Health Care Education/Training Program; Visit Provider Student in an Organized Health Care Education/Training Program
DX: K74.00 Hepatic fibrosis, unspecified (principal); K76.0 Fatty (change of) liver, not elsewhere classified
CPT/HCPCS: 36415; 80053; 80061; 80074; 82105; 82140; 82164; 82390; 82525; 83516; 85025; 85610; 85652; 86037; 86140; 86225; 86235

== ENCOUNTER 2025-08-06 11:32 | Emergency (ER) | payer MEDICARE, SELFPAY ==
[2025-08-06 11:33] VITALS: BP 155/80; PULSE 120; RESP 20; TEMP 36.6; O2SAT 97; BMI 34.6
--- NOTE | 2025-08-06 11:45 | EX.ED.UPPERE ---
HPI History of Present Illness Chief Complaint: Fall Narrative Narrative: 70-year-old female with past medical history of hypertension presents with her sister for injury to her right upper extremity which she sustained yesterday after a fall. They state that they were at [employer] in the bathroom and she went to sit down on the toilet but lost her balance and fell forward. She fell onto her right upper arm. She denies hitting her head or loss of consciousness, no headache but noticed a bruise on her right upper arm and has pain with movement of her right upper arm as well. She denies any lower arm pain, no other injuries. No headache or neck pain. [id number]. [facility] Medical History Excessive bleeding Gastric reflux On home oxygen therapy Chronic cough Wears dentures Post-menopausal Cancer Low iron History of ulceration Smoker COPD (chronic obstructive pulmonary disease) History of echocardiogram Encounter for screening for malignant neoplasm of lung Amputated toe of left foot Vitamin D deficiency Hyperlipidemia Hypertension COPD with asthma Hypomagnesemia Hypocalcemia Hypokalemia Anticoagulant long-term use AVM (arteriovenous malformation) Colitis Transfusion of blood during current hospitalisation Antiplatelet or antithrombotic long-term use Iron (Fe) deficiency anemia Atherosclerosis of [place] arteries of extremities with gangrene, left leg Carotid stenosis, bilateral Tobacco abuse Peripheral arterial occlusive disease Cervical cancer PVD (peripheral vascular disease) Arthritis Home Medications ?Medication ?Instructions ?Recorded ?Last Taken ?Type albuterol sulfate 90 mcg/actuation 2 puff inhalation Q6H PRN 01/08/24 01/03/25 History aerosol inhaler shortness of breath or wheezing amlodipine 5 mg tablet 5 mg PO 1600 blood pressure 01/08/24 01/03/25 History rosuvastatin 10 mg tablet 10 mg PO DAILY cholesterol 01/08/24 01/03/25 History cholecalciferol (vitamin D3) 1,250 1,250 mcg PO QMONTH vitamin 05/03/24 01/03/25 History mcg (50,000 unit) capsule oxymetazoline 0.05 % nasal spray 2 spray intranasal BID PRN nasal 05/18/24 01/03/25 History (12 Hour Nasal Relief [place]) congestion clopidogrel 75 mg tablet (Plavix) 75 mg PO DAILY #90 tabs 02/15/25 04/15/25 Rx pantoprazole 40 mg tablet,delayed 40 mg PO BID #90 tabs 02/15/25 Unknown Rx release fluticasone fur. 100 mcg-umeclid 1 inh inhalation Q24H #60 ea 04/04/25 Unknown Rx 62.5 mcg-vilant 25 mcg inhalat.powder (Trelegy Ellipta) resmetirom 80 mg tablet (Rezdiffra) 80 mg PO QDAY #90 tabs 07/14/25 Unknown Rx oxycodone 5 mg tablet 5 mg PO Q6H PRN pain 3 days #12 08/06/25 Unknown Rx tabs Allergy/AdvReac Type Severity Reaction Status Date / Time No Known Allergies Allergy Verified 06/02/25 12:50 Family History Mother Breast cancer Surgical History History of amputation of toe History of colonoscopy History of esophagogastroduodenoscopy (EGD) S/P femoral-femoral bypass surgery S/P LEFT ARTERIOGRAM Social History household members: none Smoking Status: Current every day smoker tobacco type: cigarettes alcohol intake: former substance use type: does not use caffeine: Yes (coffee) Type: coffee ROS ROS ED ROS Narrative Review of systems positive for right upper arm pain and bruising, worse with movement. Relieved by nothing. Has tried Tylenol, aspirin, painquil, and other [id number] occasions. EXAM Physical Exam Narrative Exam Narrative: GCS 15. ABCs intact. Ambulatory NAD. Focused exam of the right upper extremity does show mild ecchymosis of the right upper arm. Range of motion of right shoulder limited secondary to pain. Appears neurovascularly intact distally with palpable radial pulse. Able to move all fingers and oppose thumb. No pain with movement of wrist. Mild tenderness to palpation diffusely mid to proximal humerus. No crepitance. Const Vital Signs: 08/06/25 11:33 Temperature 97.8 F Temperature Source Temporal Pulse Rate 120 H Respiratory Rate 20 H Blood Pressure 155/80 H Blood Pressure Mean 105 Pulse Ox 97 Oxygen Delivery Method Room Air MDM MDM MDM Narrative Medical decision making narrative: Differential diagnosis includes but not limited to right humerus fracture versus contusion versus shoulder sprain/strain. I do not feel she needs a CT of the brain or other imaging. She was given 1 oxycodone here for analgesia. My individual interpretation of the x-ray of the right shoulder, there is a proximal humerus fracture at the humeral neck, no dislocation. I reviewed the radiology report which confirms my independent interpretation. Patient will be placed in a sling and swath and written a prescription for 3 days of oxycodone. She was referred to orthopedics on-call, Dr. Woodson for follow-up. Return instructions reviewed. Sister states that the patient has a son that lives with her that can help her. Disposition is discharged home in stable condition. History & Record Review Discussion w/independent historian: Patient and Family (Sister) Discharge Plan Triage Chief Complaint: Fall ED Provider: Vincent Moffett Dx/Rx/DC Orders Clinical Impression: Closed fracture of proximal end of right humerus, Accidental fall from commode or toilet Instructions: ED Fracture, Shoulder Prescriptions: New oxycodone 5 mg tablet 5 mg PO Q6H PRN (Reason: pain) 3 Days Qty: 12 0RF No Action pantoprazole 40 mg tablet,delayed release (DR/EC) 40 mg PO BID Qty: 90 3RF amlodipine 5 mg tablet 5 mg PO 1600 rosuvastatin 10 mg tablet 10 mg PO DAILY albuterol sulfate 90 mcg/actuation HFA aerosol inhaler 2 puff INHALATION Q6H PRN (Reason: shortness of breath or wheezing) cholecalciferol (vitamin D3) 1,250 mcg (50,000 unit) capsule 1,250 mcg PO QMONTH oxymetazoline [12 Hour Nasal Relief [place]] 0.05 % spray,non-aerosol 2 spray intranasal BID PRN (Reason: nasal congestion) clopidogrel [Plavix] 75 mg tablet 75 mg PO DAILY Qty: 90 3RF Trelegy Ellipta 100-62.5-25 mcg blister with device 1 inh inhalation Q24H Qty: 60 5RF Rezdiffra 80 mg tablet 80 mg PO QDAY Qty: 90 3RF Primary Care Provider: Vincent Ashley NP Referrals: Joseph Woodson DO [Med Staff - Active Staff, Orthopedics] - 3-5 Days Vincent Ashley NP, SHOW DESIGN SUPERVISOR-C [Primary Care Provider, Family Practice] Activity Restrictions/Additional Instructions: Follow-up with orthopedics in the next 3 to 5 days. Call the office tomorrow. Keep right shoulder immobilized with sling and swath. Pain medications as directed. Print Language: [place] Disposition Disposition: Home, Self Care
--- NOTE | 2025-08-06 11:58 | RAD_ITS ---
PROCEDURE: HUMERUS MIN 2 VIEWS 08/06/2025 REASON FOR EXAM: TRAUMA TECHNIQUE: Procedure Code: RADHUM Modality: DX Procedure: HUMERUS MIN 2 VIEWS Laterality: Right COMPARISON: None. FINDINGS: BONES: Acute fracture of the humeral neck with extension to the greater tuberosity. JOINTS: No dislocation. The joint spaces are preserved. SOFT TISSUES: Mild swelling of the shoulder. RAD/Humerus min 2 Views IMPRESSION: Right humeral neck fracture with greater tuberosity involvement. Reading Location: [id number]
--- OUTSIDE RECORDS SUMMARY | 2025-08-06 12:12 | XMS RPT_ITS | CCD ---
Author Organization [facility] Care Team Providers Care Boarding Room Fixer Name Role Phone DION SOLDERING MACHINE OPERATOR - HAT MENDER, CARLINE Roberts Primary Care Phys ician DUNCAN SALEH, JEFF Tidwell Attending Unavailable DION SOLDERING MACHINE OPERATOR - HAT MENDER, CARLINE Roberts Primary Care U navailable DION SOLDERING MACHINE OPERATOR - HAT MENDER, CARLINE Roberts Attending U navailable DION SOLDERING MACHINE OPERATOR - HAT MENDER, CARLINE Roberts Primary Care U navailable DION SOLDERING MACHINE OPERATOR - HAT MENDER, CARLINE Roberts Attending U navailable DION SOLDERING MACHINE OPERATOR - HAT MENDER, CARLINE Roberts Primary Care U navailable Upson CATH LABORATORY TECHNICIAN, CATH LABORATORY TECHNICIAN-C Carline Cuevas Primary Care Pr ovider Dr. Josiane Tucker Emergency Provider [phone] Dr. Liz Murillo Admit Provider Dr. Liz Murillo Other Provider Dr. Armani Moses Attending Provider Dr. Armani Moses Other Provider [phone] Dr. Momo Camacho Other Provider Dr. Selvin Frost Other Provider Dr. Selvin Barrera Attending Provider Dr. Selvin Barrera Other Provider Dr. Kevin Souza Other Provider Dr. Momo Camacho Referring Provider [phone] Dr. Selvin Frost Attending Provider Dr. Lynn Enriquez Other Provider Dr. Selvin Frost Referring Provider [phone] Kerlien Oquendo Attending Provider ANN MARIE Lu Attending Provider MAO Retana Attending Provider [phone] Dion CATH LABORATORY TECHNICIAN, CATH LABORATORY TECHNICIAN-C Carline Cuevas Primary Care Pr ovider Dr. Josiane Tucker Emergency Provider Dr. Liz Murillo Admit Provider Dr. Liz Murillo Other Provider Dr. Armani Moses Attending Provider Dr. Armani Moses Other Provider Dr. Momo Camacho Other Provider Dr. Selvin Frost Other Provider Dr. Selvin Barrera Attending Provider Dr. Selvin Brarera Other Provider Dr. Kevin Souza Other Provider Dr. Momo Camacho Referring Provider Dr. Selvin Frost Attending Provider Dr. Lynn Enriquez Other Provider Dr. Selvin Frost Referring Provider [phone] Kerline Oquendo Attending Provider ANN MARIE Lu Attending Provider Dr. Armani Moses Referring Provider MAO Retana Attending Provider [phone] Dion EASTON, CATH LABORATORY TECHNICIAN-C Carline Cuevas Referring Provi elliot MAO Retana Referring Provider Dion CATH LABORATORY TECHNICIAN-CCarline Primary Care Provi elliot Dion EASTON-CCarline Referring Provider Tamar Sapp Attending Provider Tamar Sapp Referring Provider Dion CATH LABORATORY TECHNICIAN-C, Carline Cuevas Attending Provider Codi HERRERA, Dr. Joshi Attending Provider Codi HERRERA, Dr. Joshi Other Provider [phone] Dr. Danis Bustos DO Attending Provider Dion CATH LABORATORY TECHNICIAN-C, Carline Cuevas Primary Care Provi elliot Dion CATH LABORATORY TECHNICIAN-C, Carline Cuevas Referring Provider Akash HERRERA, Dr. Moscoso Referring Provider Tamar Sapp Attending Provider Tamar Sapp Referring Provider Katie Verma Attending Provider [phone] Katie Verma Referring Provider [phone] Selvin Frost MD Attending Provider Dr. Joseph Torres MD Attending Provider [phone] Dr. Joseph Torres MD Referring Provider [phone] Danis Bustos DO Other Provider Dion CATH LABORATORY TECHNICIAN-C, Carline Cuevas Primary [facility] Provi elliot Dion CATH LABORATORY TECHNICIAN-C, Carline Cuevas Referring Provider Dion CATH LABORATORY TECHNICIAN-CCarline Attending Provider Sowmya EASTON-CRupali Attending Provider Dion CATH LABORATORY TECHNICIAN-C, Carline Cuevas Primary Care Provi elliot Dion CATH LABORATORY TECHNICIAN-C, Carline Cuevas Referring Provider Codi HERRERA, Dr. Joshi Attending Provider Codi HERRERA, Dr. Joshi Other Provider Dion CATH LABORATORY TECHNICIAN-C, Carline Cuevas Primary Care Provi elliot Dion CATH LABORATORY TECHNICIAN-C, Carline Cuevas Referring Provider Dr. Danis Bustos DO Attending Provider Upson CATH LABORATORY TECHNICIAN-C, Carline Cuevas Primary Care Provi elliot Dion CATH LABORATORY TECHNICIAN-C, Carline Cuevas Referring Provider Dion CATH LABORATORY TECHNICIAN-C, Carline Cuevas Attending Provider Tamar Lacey Attending Unavailable Dion CATH LABORATORY TECHNICIAN, Carline Cuevas Referring Unav ailable Dion CATH LABORATORY TECHNICIAN, Carline Cuevas Primary Care Unav ailable Upson CATH LABORATORY TECHNICIAN, Carline Cuevas Referring Unav ailable PrahJoseph Attending Unavailable Dion CATH LABORATORY TECHNICIAN, Carline Cuevas Primary Care Unav ailable Dion CATH LABORATORY TECHNICIAN, Carline Cuevas Referring Unav ailable Dion CATH LABORATORY TECHNICIAN, Carline Cuevas Primary Care Unav ailable Danis Bustos Attending Unavailable Upson CATH LABORATORY TECHNICIAN, Carline Cuevas Primary Care Unav ailable Suleman CATH LABORATORY TECHNICIAN, Antonia Attending Unavailable Suleman CATH LABORATORY TECHNICIAN, Antonia Referring Unavailable Dion CATH LABORATORY TECHNICIAN, Carline Cuevas Attending Unav ailable Upson CATH LABORATORY TECHNICIAN, Carline Cuevas Referring Unav ailable Upson CATH LABORATORY TECHNICIAN, Carline Cuevas Primary Care Unav ailable Upson CATH LABORATORY TECHNICIAN, Carline Cuevas Referring Unav ailable Dion CATH LABORATORY TECHNICIAN, Carline Cuevas Primary Care Unav ailable Prah, Attending Unavailable Atanasmarya, Tamar Attending Unavailable Upson CATH LABORATORY TECHNICIAN, Carline Cuevas Primary Care Unav ailable AtanasTamar malhotra Referring Unavailable Upson CATH LABORATORY TECHNICIAN, Carline Cuevas Primary Care Unav ailable Tamar Lacey Attending Unavailable AtanasovTamar Referring Unavailable BaksiMeli Attending Unavailable Dion CATH LABORATORY TECHNICIAN, Carline Cuevas Primary Care Unav ailable AtanasTamar malhotra Attending Unavailable Dion CATH LABORATORY TECHNICIAN, Carline Cuevas Primary Care Unav ailable Tamar Lacey Referring Unavailable Upson CATH LABORATORY TECHNICIAN, Carline Cuevas Referring Unav ailable Dion CATH LABORATORY TECHNICIAN, Carline Cuevas Primary Care Unav ailable Upson CATH LABORATORY TECHNICIAN, Carline Cuevas Attending Unav ailable Dion CATH LABORATORY TECHNICIAN, Carline Cuevas Attending Unav ailable Upson CATH LABORATORY TECHNICIAN, Carline Cuevas Primary Care Unav ailable Upson CATH LABORATORY TECHNICIAN, Carline Cuevas Referring Unav ailable Dion CATH LABORATORY TECHNICIAN, Carline Cuevas Attending Unav ailable Upson CATH LABORATORY TECHNICIAN, Carline Cuevas Primary Care Unav ailable Upson CATH LABORATORY TECHNICIAN, Carline Cuevas Primary Care Unav ailable Suleman CATH LABORATORY TECHNICIAN, Antonia Attending Unavailable Suleman CATH LABORATORY TECHNICIAN, Antonia Referring Unavailable Dion CATH LABORATORY TECHNICIAN, Carline Cuevas Referring Unav ailable Upson CATH LABORATORY TECHNICIAN, Carline Cuevas Primary Care Unav ailable Prah, Attending Unavailable Dion CATH LABORATORY TECHNICIAN, Carline Cuevas Referring Unav ailable Dion CATH LABORATORY TECHNICIAN, Carline Cuevas Primary Care Unav ailable AtaTamar kerns Attending Unavailable Dion CATH LABORATORY TECHNICIAN, Carline Cuevas Referring Unav ailable Upson CATH LABORATORY TECHNICIAN, Carline Cuevas Primary Care Unav ailable RetanaKatie Attending Unavailable Dion CATH LABORATORY TECHNICIAN, Carline Cuevas Referring Unav ailable Upson CATH LABORATORY TECHNICIAN, Carline Henis Primary Care Unav ailable Friend, Adi Attending Unavailable Dion CATH LABORATORY TECHNICIAN, Carline Cuevas Referring Unav ailable Upson CATH LABORATORY TECHNICIAN, Carline Cuevas Primary Care Unav ailable Friend, Adi Attending Unavailable Friend, Adi Consulting Unavailable Upson CATH LABORATORY TECHNICIAN, Carline Cuevas Referring Unav ailable Dion CATH LABORATORY TECHNICIAN, Carline Cuevas Primary Care Unav ailable AtanasTamar malhotra Attending Unavailable Dion CATH LABORATORY TECHNICIAN, Carline Henis Primary Care Marlinv ailable Tamar Lacey Attending Unavailable AtanasTamar malhotra Referring Unavailable Dion CATH LABORATORY TECHNICIAN, Carline Cuevas Primary Care Unav ailable RetanaaKtie Referring Unavailable RetanaKatie Attending Unavailable Dion CATH LABORATORY TECHNICIAN, Carline Cuevas Referring Unav ailable Dion CATH LABORATORY TECHNICIAN, Carline Cuevas Primary Care Unav ailable Upson CATH LABORATORY TECHNICIAN, Carline Cuevas Attending Unav ailable RetanaKatie Attending Unavailable RetanaKatie Referring Unavailable Upson CATH LABORATORY TECHNICIAN, Carline Cuevas Primary Care Unav ailable Dion CATH LABORATORY TECHNICIAN, Carline Cuevas Primary Care Unav ailable Danis Bustos Attending Unavailable Danis Bustos Referring Unavailable Dion CATH LABORATORY TECHNICIAN, Carline Mason Primary Care Unav ailable Danis Bustos Attending Unavailable Danis Bustos Referring Unavailable Dion CATH LABORATORY TECHNICIAN, Carline Mason Primary Care Unav ailable Friend, Adi Attending Unavailable Dion CATH LABORATORY TECHNICIAN, Carline Cuevas Referring Unav ailable Friend, Adi Attending Unavailable Dion CATH LABORATORY TECHNICIAN, Carline Cuevas Primary Care Unav ailable Dion CATH LABORATORY TECHNICIAN, Carline Mason Referring Unav ailable Dion CATH LABORATORY TECHNICIAN, Carline Mason Primary Care Unav ailable Tamar Lacey Attending Unavailable Upson CATH LABORATORY TECHNICIAN, Carline Cuevas Primary [facility] Unav ailable Joseph Torres Attending Unavailable PraJoseph case Referring Unavailable Dion CATH LABORATORY TECHNICIAN, Carline Cuevas Referring Unav ailable Upson CATH LABORATORY TECHNICIAN, Carline Cuevas [facility] Unav ailRupali Roa Attending Unavailable BrownDanis Attending Unavailable Dion CATH LABORATORY TECHNICIAN, Carline Cuevas Primary Care Unav ailable BrownDanis Referring Unavailable Brown, Danis Consulting Unavailable Upson CATH LABORATORY TECHNICIAN, Carline Cuevas Referring Unav ailable Upson CATH LABORATORY TECHNICIAN, Carline Cuevas [facility] Unav ailable Friend, Adi Attending Unavailable Friend, Adi Consulting Unavailable Dion CATH LABORATORY TECHNICIAN, Carline Cuevas Referring Unav ailable Friend, Adi Attending Unavailable Upson CATH LABORATORY TECHNICIAN, Carline Mason [facility] Unav ailable Friend, Adi Consulting Unavailable Upson CATH LABORATORY TECHNICIAN, Carline Mason [facility] Unav ailable Selvin Frost Attending Unavailable RetanaKatie Referring Unavailable PinevilleSelvin pelletier Attending Unavailable RetanaKatie Referring Unavailable Dion CATH LABORATORY TECHNICIAN, Carline Cuevas Primary [facility] Unav ailable Upson CATH LABORATORY TECHNICIAN, Carline Cuevas Referring Unav ailable Upson CATH LABORATORY TECHNICIAN, Carline Mason [facility] Unav ailable Joseph Torres Attending Unavailable Dion CATH LABORATORY TECHNICIAN, Carline Cuevas Referring Unav ailable Upson CATH LABORATORY TECHNICIAN, Carline Cuevas [facility] Unav ailable Rupali Deng Attending Unavailable Dion CATH LABORATORY TECHNICIAN, Carline Cuevas Referring Unav ailable Friend, Adi Attending Unavailable Upson CATH LABORATORY TECHNICIAN, Carline Henis [facility] Unav ailable Medications Current Medications Medication Drug Class(es) Dates Sig (Normalized) Sig (Original) [id number] 200 actuat albuterol 0.09 mg/actuat metered dose inhaler (20 sources) beta2-Adrenergic Agonist Start: 01-08-2024 Albuterol Sulfate [...] wheezing, # 8.5 gram(s), 6 Refill(s), Pharmacy: [id number], 156, cm, 10/09/23 13:33:00 EST, Height, kg, 10/09/23 13:33:00 EST, Dosing Weight Start Date: 10/13/23 Status: Ordered amLODIPine 5 mg oral tablet (20 sources) Dihydropyridine Calcium Channel Talib Start: 01-08-2024 Amlodipine 5 mg tablet Active 5 mg PO 1600 January 08, 2024 1:00am blood pressure Start: 10-09-2023 Norvasc 5 mg o ral tablet Dose : 5 mg = 1 tab(s), Oral, qDay, # 30 tab(s), 5 Refill(s), Pharmacy: [id number], HTN (hypertension), 156, cm, 10/09/23 13:33:00 EST, Height, kg, 10/09/23 13:33:00 EST, Dosing Weight Start Date: 10/09/23 Status: Ordered cholecalciferol 1.25 mg oral capsule (11 sources) Vitamin D Start: 05-03-2024 take 1 capsule by mouth every month Cholecalciferol (Vitamin D3) 1,250 mcg (50,000 unit) capsule Active 1250 ug PO EVERY MONTH May 03, 2024 12:00am vitamin clopidogrel 75 mg oral tablet (20 sources) [id number] Platelet Inhibitor Start: 02-15-2025 take 1 tablet by mouth once daily Clopidogrel (Plavix) 75 mg tablet Active 75 mg PO DAILY 90 February 15, 2025 12:00am Start: 01-08-2024 End: 05-26-2024 take 1 tablet by mouth once daily Clopidogrel (Plavix) 75 mg tablet Discontinued 75 mg PO DAILY 30 February 11, 2024 12:00am May 26, 2024 12:35pm antiplatelet Start: 12-01-2018 End: 05-03-2020 take 1 tablet by mouth once daily Clopidogrel 75 mg tablet Discontinued 75 mg PO DAILY 30 December 01, 2018 1:00am May 03, 2020 9:03am Start: 08-31-2018 End: 11-29-2018 take 1 tablet by mouth once daily Clopidogrel 75 MG tablet Discontinued 75 mg PO DAILY 90 90 0 October 05, 2018 11:56am November 28, 2018 1:00am November 29, 2018 1:09am Nivvngdvqme-Zmdakkbgs-Tzopni er (10 sources) Anticholinergic, Corticosteroid, beta2-Adrenergic Agonist Start: 04-04-2025 Fveenlfchqg-Skyesqyzq-Ihpjdp er (Trelegy Ellipta) 100-62.5-25 mcg blister with device Active 1 NMA INHALATION Q24H 60 April 04, 2025 12:00am Start: 04-04-2025 Fluticasone-Um eclidin-Vilanter (Trelegy Ellipta) 100-62.5-25 mcg blister with device Active 1 NMA INHALATION Q24H 60 April 04, 2025 12:00am Start: 03-24-2025 End: 03-28-2025 Jpoexcgdexk-Rcbdyqkke-Pxfixv er (Trelegy Ellipta) 100-62.5-25 mcg blister with device Discontinued 1 NMA INHALATION Q24H 60 March 24, 2025 12:00am March 28, 2025 7:10am Start: 03-24-2025 End: 03-28-2025 Fsdbslpzveu-Tfjduknbz-Zxjydz er (Trelegy Ellipta) 100-62.5-25 mcg blister with [...] qDay, # 4 gram(s), 5 Refill(s), Pharmacy: [id number], COPD with asthma, 156, cm, 10/09/23 13:33:00 EST, Height, kg, 10/09/23 13:33:00 EST, Dosing Weight Start Date: 10/09/23 Stop Date: 04/06/24 Status: Ordered oxymetazoline hydrochloride 0.5 mg/ml nasal spray (11 sources) Start: 05-18-2024 Oxymetazoline (12 Hour Nasal Relief [place]) 0.05 % spray,non-aerosol Active 2 NMA INTRANASAL [...] Discontinued 20 mg PO TWICE A DAY 60 3 January 04, 2025 2:25pm April 12, 2025 2:25pm Start: 08-11-2024 End: 08-26-2024 take 1 tablet by mouth once daily Pantoprazole 20 mg tablet,delayed release (DR/EC) Discontinued 20 mg PO daily 30 3 August 11, 2024 12:00am August 26, 2024 12:42pm Start: 06-23-2024 End: 08-11-2024 Pantoprazole (Protonix) 40 m g tablet,delayed release (DR/EC) Discontinued 20 mg PO daily August 11, 2024 1:54pm August 11, 2024 4:04pm GERD Start: 05-20-2024 End: 06-23-2024 take 1 tablet by mouth twice daily Pantoprazole (Protonix) 40 mg tablet,delayed release (DR/EC) Discontinued 40 mg PO TWICE A DAY 60 30 2 June 07, 2024 10:01am June 23, 2024 3:44pm GERD Start: 05-10-2024 End: 05-20-2024 take 1 tablet by mouth once daily Pantoprazole (Protonix) 40 mg tablet,delayed release (DR/EC) Discontinued 40 mg PO DAILY 30 May 10, 2024 12:00am May 20, 2024 3:16pm rosuvastatin calcium 10 mg oral tablet (20 sources) HMG-CoA Reductase Inhibitor Start: 01-08-2024 take 1 tablet by mouth once daily Rosuvastatin 10 mg tablet Active 10 mg PO DAILY January 08, 2024 1:00am cholesterol Symbicort 160 mcg-4.5 mcg/inh Inhaler (1 source) Start: 10-09-2023 End: 04-06-2024 take 1 dose by inhalation twice daily Symbicort 160 mcg-4.5 mcg/inh Inhaler Dose = 2 puff(s), Inhalation, BID, # 1 EA, 5 Refill(s), Pharmacy: [id number], COPD with asthma, 156, cm, 10/09/23 13:33:00 EST, Height, kg, 10/09/23 13:33:00 EST, Dosing Weight Start Date: 10/09/23 Stop Date: 04/06/24 Status: Ordered Completed/Discontinued Medications Medication Drug Class(es) Dates Sig (Normalized) Sig (Original) 8 hr acetaminophen 650 mg extended release oral tablet (20 sources) Start: 06-25-2018 End: 09-08-2024 take 1 [...] 2018 12:00am January 08, 2024 2:44pm Budesonide-Formoterol (20 sources) Corticosteroid, beta2-Adrenergic Agonist Start: 01-08-2024 End: 03-24-2025 Budesonide-Formoterol 160-4.5 mcg/actuation HFA aerosol inhaler Discontinued 2 NMA INHALATION TWICE A DAY January 08, 2024 1:00am March 24, 2025 9:43am breathing Start: 01-08-2024 End: 03-24-2025 Budesonide-Formoterol 160-4. 5 mcg/actuation HFA aerosol inhaler Discontinued 2 NMA [...] TWICE A DAY January 08, 2024 12:00am Jfsyfleyby-Mxnsrkyy-Agcdnoas ol (5 sources) Corticosteroid, beta2-Adrenergic Agonist Start: 03-28-2025 End: 04-04-2025 Lhlowdjzot-Chbzwjwb-Tcwyjiju ol (Breztri Aerosphere) 160-9-4.8 mcg/actuation HFA aerosol inhaler Discontinued 2 NMA INHALATION TWICE A DAY 10.7 11 March 28, 2025 12:00am April 04, 2025 12:21pm Start: 03-28-2025 End: 04-04-2025 Kxayjvmpzz-Fibhbtjl-Oztxufvc ol (Breztri Aerosphere) 160-9-4.8 mcg/actuation HFA aerosol inhaler Discontinued 2 NMA INHALATION TWICE A DAY 10.7 March 28, 2025 12:00am April 04, 2025 12:21pm cilostazol 50 mg oral tablet (20 sources) Phosphodiesterase 3 Inhibitor Start: 02-11-2024 End: 05-20-2024 take 1 tablet by mouth twice daily Cilostazol 50 mg tablet Discontinued 50 mg PO TWICE A DAY 60 5 February 11, 2024 12:00am May 20, 2024 [...] BIDAC, # 60 tab(s), 1 Refill(s), Pharmacy: [facility], 156, cm, 10/09/23 13:33:00 EST, Height, kg, 10/09/23 13:33:00 EST, Dosing Weight Start Date: 10/12/23 Stop Date: 12/11/23 Status: Ordered lansoprazole 30 mg disintegrating oral tablet (11 sources) Proton Pump Inhibitor Start: 06-06-2024 End: 06-07-2024 take 1 tablet by mouth twice daily Lansoprazole 30 mg tablet,disintegrat, delay rel Discontinued 30 mg PO TWICE A DAY 60 0 June 06, 2024 12:00am June 07, 2024 10:01am levoFLOXacin 750 mg oral tablet (11 sources) Quinolone Antimicrobial Start: 05-10-2024 End: 05-18-2024 take 1 tablet by mouth once daily Levofloxacin 750 mg Tablet Discontinued 750 mg PO DAILY 4 0 May 10, 2024 12:00am May 18, 2024 12:29pm magnesium oxide 250 mg oral tablet (11 sources) Start: 06-23-2024 End: 07-11-2024 take 1 tablet by mouth once daily Magnesium Oxide 250 mg magnesium tablet Discontinued 250 mg PO DAILY June 23, 2024 12:00am July 11, 2024 2:53pm meloxicam 15 mg oral tablet (20 sources) Nonsteroidal Anti-inflammatory Drug Start: 06-25-2018 End: 06-25-2018 take 1 tablet by mouth once daily Meloxicam 15 mg tablet Discontinued 15 mg PO daily June 25, 2018 12:00am June 25, 2018 2:19pm potassium chloride 20 meq extended release oral tablet (20 sources) Start: 09-06-2024 End: 09-20-2024 take 1 tablet by mouth once daily Potassium Chloride 20 mEq tablet extended release Discontinued 20 meq PO daily 14 14 0 September 06, 2024 12:00am September 19, 2024 [...] 2.5 mg PO TWICE A DAY 60 5 August 16, 2024 12:00am February 15, 2025 9:16am sucralfate 1000 mg oral tablet (11 sources) Aluminum Complex Start: 05-20-2024 End: 01-02-2025 take 1 tablet by mouth every six hours Sucralfate (Carafate) 1 gram tablet Discontinued 1 g PO EVERY 6 HOURS 120 30 2 May 20, 2024 12:00am January 02, 2025 12:47pm stomach Problems Active Problems Problem Classification Problem Date Documented Da te Episodic/Chronic Acute and unspecified renal failure (20 sources) Acute renal failure syndrome; Translations: [Acute kidney failure, unspecified] 01-13-2024 Episodic Cardiac and circulatory congenital anomalies (12 sources) Vascular disorder; Translations: [Arteriovenous malformation, site unspecified] Onset: 07-13-2024 06-23-2024 Chronic Cardiac dysrhythmias (11 sources) ECG: sinus tachycardia; Translations: [Tachycardia, unspecified] 05-18-2024 Episodic Chronic kidney disease (20 sources) Chronic kidney disease stage 3; Translations: [...] unspecified] 10-20-2024 Episodic Deficiency and other anemia (19 sources) Iron deficiency anemia; Translations: [Iron deficiency anemia, unspecified] 09-06-2024 Episodic Comment on above: Got Injectafer weekl y x2. Iron deficiency anemia is resolved. Got Injectafer weekl y x2. Iron deficiency anemia is resolved.Iron profile is normal today. Deficiency and other anemia (2 sources) Iron deficiency anemia, unspecified; Translations: [Iron deficiency anemia, unspecified] Onset: 03-04-2025 Episodic Deficiency and other anemia (2 sources) Anemia, unspecified; Translations: [Anemia, unspecified] Onset: 02-21-2025 Episodic Diseases of white blood cells (12 sources) Leukocytosis; Translations: [Elevated white blood cell count, unspecified] Onset: 07-21-2024 07-21-2024 Chronic Comment on above: Etiology unclear at this time, no abnormal cells. Disorders of lipid metabolism (2 sources) Hyperlipidemia; Translations: [Hyperlipidemia, unspecified] Onset: 02-15-2025 05-21-2020 Chronic Esophageal disorders (20 sources) Esophageal varices; Translations: [Esophageal varices without [...] carotid. 3. Patent and intergrade vertebrals bilaterally. Fever of unknown origin (11 sources) Fever; Translations: [Fever, unspecified] 05-18-2024 Episodic Fluid and electrolyte disorders (20 sources) Hypokalemia; Translations: [Hypokalemia] 06-23-2024 Episodic Gangrene (20 sources) 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, left leg; Translations: [Atherosclerosis of [place] artery of left lower extremity with gangrene] 01-11-2024 Chronic Gangrene (20 sources) Gangrenous disorder; Translations: [Gangrene, not elsewhere classified] 01-08-2024 Episodic Gastroduodenal ulcer (except hemorrhage) (20 sources) Gastric ulcer; Translations: [Gastric ulcer, unspecified as acute or chronic, without hemorrhage or perforation] Onset: 05-02-2025 10-20-2024 Chronic Gastrointestinal hemorrhage (1 source) Chronic [...] sources) Osteomyelitis; Translations: [Osteomyelitis, unspecified] 01-15-2024 Chronic Noninfectious gastroenteritis (11 sources) Colitis; Translations: [Noninfective gastroenteritis and colitis, unspecified] 05-18-2024 Episodic Nutritional deficiencies (1 source) Vitamin D deficiency, unspecified; Translations: [Vitamin D deficiency, unspecified] Onset: 02-15-2025 Chronic Occlusion or stenosis of precerebral arteries (20 sources) Bilateral stenosis of carotid arteries; Translations: [Occlusion and stenosis of bilateral carotid arteries] 05-21-2021 Chronic Other aftercare (17 sources) Surgical follow-up; Translations: [Encounter for surgical aftercare following surgery on the circulatory system] 02-11-2024 Episodic Other aftercare (20 sources) Blood transfusion finding; Translations: [Blood transfusion, without reported diagnosis] 05-28-2024 Episodic Other aftercare (11 sources) Long-term current use of anticoagulant; Translations: [manager long term care (current) use of anticoagulants] 05-28-2024 Episodic Other aftercare (11 sources) Long-term current use of drug therapy; Translations: [MCFP (current) use of antithrombotics/antip latelets] 05-18-2024 Episodic Other circulatory disease (20 sources) Peripheral arterial occlusive disease; Translations: [Disorder of arteries and arterioles, unspecified] 10-05-2018 Chronic Other circulatory disease (20 sources) Disorder of arteries and arterioles, unspecified; Translations: [Arterial embolism and thrombosis of lower extremity] 01-08-2024 Chronic Other circulatory disease (15 sources) History of arterial bypass of lower limb artery; Translations: [Presence of other vascular implants and grafts] 03-04-2024 Chronic Other circulatory disease (11 sources) Low blood pressure; Translations: [Hypotension, unspecified] 05-28-2024 Episodic Other circulatory disease (11 sources) Orthostatic hypotension; Translations: [Orthostatic hypotension] 06-03-2024 Episodic Other liver diseases (6 sources) Hepatic fibrosis; Translations: [Hepatic fibrosis] 05-10-2025 Chronic Other liver diseases (1 source) Fatty (change of) liver, not elsewhere classified; Translations: [Fatty (change of) liver, not elsewhere classified] Onset: 05-10-2025 Chronic Other lower respiratory disease (11 sources) Hypoxia; Translations: [Hypoxemia] 05-18-2024 Episodic Other lower respiratory disease (11 sources) Hypoxemia; Translations: [Hypoxemia] 03-10-2025 Episodic Other nutritional; endocrine; and metabolic disorders (11 sources) Hypomagnesemia; Translations: [Hypomagnesemia] 06-23-2024 Chronic Other nutritional; endocrine; and metabolic disorders (11 sources) Hypocalcemia; Translations: [Hypocalcemia] 06-23-2024 Chronic Peripheral and visceral atherosclerosis (11 sources) Peripheral vascular disease; Translations: [Peripheral vascular disease, unspecified] 06-08-2024 Chronic Comment on above: S/p R to L fem-fem b ypass 01/21/24 Residual codes; unclassified (20 sources) Tobacco user; Translations: [Tobacco use] 10-05-2018 Episodic Residual codes; unclassified (2 sources) Increased body mass index 08-21-2020 Episodic Residual codes; unclassified (11 sources) Sign; Translations: [Other general symptoms and signs] 05-18-2024 Episodic Screening and history of mental health and substance abuse codes (1 source) Tobacco smoking behavior - finding 08-21-2020 Chronic Shock (11 sources) Hemorrhagic shock; Translations: [Other shock] 05-28-2024 Episodic Substance-related disorders (20 sources) Tobacco dependence caused by cigarettes; Translations: [Nicotine dependence, cigarettes, uncomplicated] Onset: 01-11-2025 01-11-2025 Chronic Unclassified (1 source) Non-smoker 10-09-2023 Unclassified (2 sources) Patient encounter status 10-09-2023 Comment on above: Screening for breast cancer Unclassified (1 source) Hepatic fibrosis, unspecified; Translations: [Hepatic fibrosis, unspecified] Onset: 05-15-2025 Past or Other Problems Problem Classification Problem Date Documented Da te Episodic/Chronic Gastrointestinal hemorrhage (20 sources) Acute gastrointestinal hemorrhage; Translations: [Gastrointestinal hemorrhage, unspecified] Onset: 06-23-2024 Episodic Other aftercare (1 source) Encounter for surgical aftercare following surgery on the circulatory system; Translations: [Encounter for surgical aftercare following surgery on the circulatory system] Onset: 5 Episodic Other screening for suspected conditions (not mental disorders or infectious disease) (13 sources) Patient encounter status; Translations: [Encounter for screening for malignant neoplasm of respiratory organs] Onset: 4 08-16-2024 Episodic Residual codes; unclassified (1 source) Tobacco use; Translations: [Tobacco use] Onset: 4 Episodic Screening and history of mental health and substance abuse codes (1 source) Personal history of nicotine dependence; Translations: [Personal history of nicotine dependence] Onset: 4 Episodic Unclassified (20 sources) S/P LEFT ARTERIOGRAM 06-07-2022 Comment on above: apll Results Test Name Value Interpretation Reference Range Facility Pulmonary Visit Reporton Pulmonary Visit Report Normal [facility] AFP, Tumor Markeron 05-12-20 25 AFP TUMOR SHELLEY 3.5 ng/mL Normal 0.0-9.2 [facility] Comment on above: Order Comment: Test( s) [id number]-Hamltk, Serum or Plasmawas developed and its performance characteristicsdetermined by [employer]. It has not been cleared or approvedby the Food and Drug Administration.N Result Comment: [facility] [employer] Electrochemiluminescence Immunoassay(ECLIA)Values obtained with different assay methods or kits cannotbe used interchangeably. Results cannot be interpreted asabsolute evidence of the presence or absence of malignantdisease.This test is not interpretable in females. Performed By: #### L 803.2200, L3300.1200, L101.9900, L800.1280, L3000.0375, L500.4050, L503.5510, L500.4100, L3100.5440, L100.0100, L3400.0700, L3300.0100, L300.3900, L501.6710, L3300.0700, L3100.6900 ####[facility] [address] [place], [address] ANCAon 05-12-2025 Atypical pANCA <1:20 Normal Neg:<1:20 [facility] Comment on above: Order Comment: Test( s) [id number]-Nvhdug, Serum or Plasmawas developed and its performance characteristicsdetermined by [employer]. It has not been cleared or approvedby the Food and Drug Administration. Result Comment: The atypical pANCA pattern has been observed in asignificant percentage of patients with ulcerative colitis,primary sclerosing cholangitis and autoimmune hepatitis. Performed By: #### L 803.2200, L3300.1200, L101.9900, L800.1280, L3000.0375, L500.4050, L503.5510, L500.4100, L3100.5440, L100.0100, L3400.0700, L3300.0100, L300.3900, L501.6710, L3300.0700, L3100.6900 ####[facility] [address] [facility] [place], [address] Cytoplasmic Ab <1:20 Normal Neg:<1:20 [facility] Comment on above: Order Comment: Test( s) [id number]-Ydwykn, Serum or Plasmawas developed and its performance characteristicsdetermined by [employer]. It has not been cleared or approvedby the Food and Drug Administration. Performed By: #### L 803.2200, L3300.1200, L101.9900, L800.1280, L3000.0375, L500.4050, L503.5510, L500.4100, L3100.5440, L100.0100, L3400.0700, L3300.0100, L300.3900, L501.6710, L3300.0700, L3100.6900 ####[facility] [address] [place], [address] Perinuclear Ab. <1:20 Normal Neg:<1:20 [facility] Comment on above: Order Comment: Test( s) [id number]-Ktxagi, Serum or Plasmawas developed and its performance characteristicsdetermined by [employer]. It has not been cleared or approvedby the Food and Drug Administration. Result Comment: The presence of positive fluorescence exhibiting P-ANCA orC-ANCA patterns alone is not specific for the diagnosis ofWegener's Granulomatosis (WG) or microscopic polyangiitis.Decisions about treatment should not be based solely onANCA IFA results. The International ANCA Group Consensusrecommends follow up testing of positive sera with both ME-3 and MPO-ANCA enzyme immunoassays. As many as 5% serumsamples are positive only by EIA. Ref. AM J Clin Glgayc7725;111:507-513. Performed By: #### L 803.2200, L3300.1200, L101.9900, L800.1280, L3000.0375, L500.4050, L503.5510, L500.4100, L3100.5440, L100.0100, L3400.0700, L3300.0100, L300.3900, L501.6710, L3300.0700, L3100.6900 ####[facility] [address] [place], [place], [id number] Angiotensin Convert Enzymeon 05-12-2025 ANGIOT-CONV.ENZ 37 U/L Normal 14-82 [facility] Comment on above: Order Comment: Test( s) [id number]-Myhiwa, Serum or Plasmawas developed and its performance characteristicsdetermined by [employer]. It has not been cleared or approvedby the Food and Drug Administration. Performed By: #### L 803.2200, L3300.1200, L101.9900, L800.1280, L3000.0375, L500.4050, L503.5510, L500.4100, L3100.5440, L100.0100, L3400.0700, L3300.0100, L300.3900, L501.6710, L3300.0700, L3100.6900 ####[facility] [address] [place], [address] Anti-Smooth Muscle ABSon ANTISMOOTH MUSC 4 Units Normal 0-19 [facility] Comment on above: Order Comment: Test( s) [id number]-Lqojwi, Serum or Plasmawas developed and its performance characteristicsdetermined by [employer]. It has not been cleared or approvedby the Food and Drug Administration. Result Comment: Nega tive 0 - 19 Weak positive 20 - 30 Moderate to strong positive >30 Actin Antibodies are found in 52-85% of patients with autoimmune hepatitis or chronic active hepatitis and in 22% of patients with primary biliary cirrhosis. Performed By: #### L 803.2200, L3300.1200, L101.9900, L800.1280, L3000.0375, L500.4050, L503.5510, L500.4100, L3100.5440, L100.0100, L3400.0700, L3300.0100, L300.3900, L501.6710, L3300.0700, L3100.6900 ####[facility] [address] [facility] [place], [address] Ceruloplasminon 05-12-2025 CERULOPLASMIN 29.2 mg/dL Normal 19.0-39.0 [facility] Comment on above: Order Comment: Test( s) [id number]-Enyzko, Serum or Plasmawas developed and its performance characteristicsdetermined by [employer]. It has not been cleared or approvedby the Food and Drug Administration. Performed By: #### L 803.2200, L3300.1200, L101.9900, L800.1280, L3000.0375, L500.4050, L503.5510, L500.4100, L3100.5440, L100.0100, L3400.0700, L3300.0100, L300.3900, L501.6710, L3300.0700, L3100.6900 ####[facility] [address] [place], [address] Copper, Serum or Plasmaon COPPER, SERUM 114 ug/dL Normal 80-158 [facility] Comment on above: Order Comment: Test( s) 407348-Pjlchq, Serum or Plasmawas developed and its performance characteristicsdetermined by [employer]. It has not been cleared or approvedby the Food and Drug Administration. Result Comment: Dete ction Limit = 5Performed at: [facility] [address] [place], [place] [id number] Director: Prabhu Sorenson PhD, Phone: [phone] at: [address] [id number] Director: Chris Mahajan MD, Phone: [phone] Performed By: #### L 803.2200, L3300.1200, L101.9900, L800.1280, L3000.0375, L500.4050, L503.5510, L500.4100, L3100.5440, L100.0100, L3400.0700, L3300.0100, L300.3900, L501.6710, L3300.0700, L3100.6900 ####[facility] [address] [place], [address] Hepatitis Panel Acuteon 04-17 COMMENT Comment Normal . [facility] Comment on above: Order Comment: Test( s) 338503-Nykaex, Serum or Plasmawas developed and its performance characteristicsdetermined by [employer]. It has not been cleared or approvedby the Food and Drug Administration. Result Comment: Not infected with HCV unless early or acute infection issuspected (which may be delayed in an immunocompromisedindividual), or other evidence exists to indicate HCVinfection. Performed By: #### L 803.2200, L3300.1200, L101.9900, L800.1280, L3000.0375, L500.4050, L503.5510, L500.4100, L3100.5440, L100.0100, L3400.0700, L3300.0100, L300.3900, L501.6710, L3300.0700, L3100.6900 ####[facility] [address] [place], [address] HEP B CORE,IgM Negative Normal Negative [facility] Comment on above: Order Comment: Test( s) [id number]-Sbfnju, Serum or Plasmawas developed and its performance characteristicsdetermined by [employer]. It has not been cleared or approvedby the Food and Drug Administration. Performed By: #### L 803.2200, L3300.1200, L101.9900, L800.1280, L3000.0375, L500.4050, L503.5510, L500.4100, L3100.5440, L100.0100, L3400.0700, L3300.0100, L300.3900, L501.6710, L3300.0700, L3100.6900 ####[facility] [address] [facility] [place], [place], [id number] HEP B SURF AG Negative Normal Negative [facility] Comment on above: Order Comment: Test( s) [id number]-Yqarbz, Serum or Plasmawas developed and its performance characteristicsdetermined by [employer]. It has not been cleared or approvedby the Food and Drug Administration. Performed By: #### L 803.2200, L3300.1200, L101.9900, L800.1280, L3000.0375, L500.4050, L503.5510, L500.4100, L3100.5440, L100.0100, L3400.0700, L3300.0100, L300.3900, L501.6710, L3300.0700, L3100.6900 ####[facility] [address] [facility] [place], [address] HEP C VIRUS AB Non-Reactive Normal Non Reactive [facility] Comment on above: Order Comment: Test( s) [id number]-Putjuq, Serum or Plasmawas developed and its performance characteristicsdetermined by [employer]. It has not been cleared or approvedby the Food and Drug Administration. Performed By: #### L 803.2200, L3300.1200, L101.9900, L800.1280, L3000.0375, L500.4050, L503.5510, L500.4100, L3100.5440, L100.0100, L3400.0700, L3300.0100, L300.3900, L501.6710, L3300.0700, L3100.6900 ####[facility] [address] [place], [place], [id number] HEPATITIS A-IgM Negative Normal Negative [facility] Comment on above: Order Comment: Test( s) 345778-Yjxwvf, Serum or Plasmawas developed and its performance characteristicsdetermined by [employer]. It has not been cleared or approvedby the Food and Drug Administration. Result Comment: A ne gative anti-HAV IgM result suggests no recent orcurrent HAV infection. Performed By: #### L 803.2200, L3300.1200, L101.9900, L800.1280, L3000.0375, L500.4050, L503.5510, L500.4100, L3100.5440, L100.0100, L3400.0700, L3300.0100, L300.3900, L501.6710, L3300.0700, L3100.6900 ####[facility] [address] [place], [address] LIZA Comprehensive Panelon ANTI-DNA (DS)AB <1 Normal 0-9 [facility] Comment on above: Result Comment: Nega tive <5 Equivocal 5 - 9 Positive >9 Performed By: #### L 803.2200, L3300.1200, L101.9900, L800.1280, L3000.0375, L500.4050, L503.5510, L500.4100, L3100.5440, L100.0100, L3400.0700, L3300.0100, L300.3900, L501.6710, L3300.0700, L3100.6900 ####[facility] [address] [place], [address] ANTI-SS-A < 0.2 Normal 0.0-0.9 [facility] Comment on above: Performed By: #### L 803.2200, L3300.1200, L101.9900, L800.1280, L3000.0375, L500.4050, L503.5510, L500.4100, L3100.5440, L100.0100, L3400.0700, L3300.0100, L300.3900, L501.6710, L3300.0700, L3100.6900 ####[facility] [address] [place], [place], [id number] ANTI-SS-B < 0.2 Normal 0.0-0.9 [facility] Comment on above: Performed By: #### L 803.2200, L3300.1200, L101.9900, L800.1280, L3000.0375, L500.4050, L503.5510, L500.4100, L3100.5440, L100.0100, L3400.0700, L3300.0100, L300.3900, L501.6710, L3300.0700, L3100.6900 ####[facility] [address] [facility] [place], [address] Anti-Mitochondrial ABon - ANTIMITOCHON AB <20.0 Normal 0.0-20.0 [facility] Comment on above: Result Comment: Nega tive 0.0 - 20.0 Equivocal 20.1 - 24.9 Positive >24.9Mitochondrial (M2) Antibodies are found in 90-96% ofpatients with primary biliary cirrhosis.Performed at: - [address] [id number] Director: Prabhu Sorenson PhD, Phone: [phone] Performed By: #### L 803.2200, L3300.1200, L101.9900, L800.1280, L3000.0375, L500.4050, L503.5510, L500.4100, L3100.5440, L100.0100, L3400.0700, L3300.0100, L300.3900, L501.6710, L3300.0700, L3100.6900 ####[facility] [address] [facility] [place], [address] Absolute lymphocyte countOrd ered By: Tamar Lacey on 05-10-2025 Lymphocytes Auto (Unsp spec) [#/Vol] 1.40 10*3/uL 0.83-4.51 [facility] Absolute neutrophil countOrd ered By: Tamar Lacey on 05-10-2025 Neutrophils (Bld) [#/Vol] 6.8 10*3/uL 2.0-7.7 [facility] Ammoniaon 05-10-2025 Ammonia (P) [Moles/Vol] 23.1 umol/L Normal - [facility] Comment on above: Performed By: #### L 803.2200, L3300.1200, L101.9900, L800.1280, L3000.0375, L500.4050, L503.5510, L500.4100, L3100.5440, L100.0100, L3400.0700, L3300.0100, L300.3900, L501.6710, L3300.0700, L3100.6900 ####[facility] [address] [place], [address] Anion gap in Serum or Plasma Ordered By: Tamar Lacey on 05-10-2025 Anion gap [Moles/Vol] 11 mmol/L 5- [place] Automated lymphocyte count a s percentage of total leukocytesOrdered By: Tamar Lacey on 05-10-2025 Lymphocytes/100 WBC Auto (Unsp spec) 15.5 % Low 19-41 [facility] BUN/creatinine ratioOrdered By: Tamar Lacey on 05-10-2025 Urea nitrogen/Creatinine [Mass ratio] 18.6 mg/mg 10-20 [facility] Basophil percentageOrdered B y: Tamar Lacey on 05-10-2025 Basophils/100 WBC (Bld) 0.3 % 0-1 [facility] Bilirubin, totalOrdered By: Tamar Lacey on 05-10-2025 Bilirubin [Mass/Vol] 0.45 mg/dL 0.00-1.30 [facility] CBC W/Diff, Automatedon 04-17 Absolute Lymph 1.40 X10 3/uL Normal 0.83-4.51 [facility] Comment on above: Performed By: #### L 803.2200, L3300.1200, L101.9900, L800.1280, L3000.0375, L500.4050, L503.5510, L500.4100, L3100.5440, L100.0100, L3400.0700, L3300.0100, L300.3900, L501.6710, L3300.0700, L3100.6900 ####[facility] [address] [place], [address] Absolute Neut 6.8 X10 3/uL Normal 2.0-7.7 [facility] Comment on above: Performed By: #### L 803.2200, L3300.1200, L101.9900, L800.1280, L3000.0375, L500.4050, L503.5510, L500.4100, L3100.5440, L100.0100, L3400.0700, L3300.0100, L300.3900, L501.6710, L3300.0700, L3100.6900 ####[facility] [address] [facility], [address] Basophils/100 WBC (Bld) 0.3 % Normal 0-1 [facility] Comment on above: Performed By: #### L 803.2200, L3300.1200, L101.9900, L800.1280, L3000.0375, L500.4050, L503.5510, L500.4100, L3100.5440, L100.0100, L3400.0700, L3300.0100, L300.3900, L501.6710, L3300.0700, L3100.6900 ####[facility] [address] [place], [address] Eosinophils/100 WBC (Bld) 1.3 % Normal 0-5 [facility] Comment on above: Performed By: #### L 803.2200, L3300.1200, L101.9900, L800.1280, L3000.0375, L500.4050, L503.5510, L500.4100, L3100.5440, L100.0100, L3400.0700, L3300.0100, L300.3900, L501.6710, L3300.0700, L3100.6900 ####[facility] [address] [place], [address] Erythrocyte distribution width (RBC) [Ratio] 14.3 % Normal 11.6-14.6 [facility] Comment on above: Performed By: #### L 803.2200, L3300.1200, L101.9900, L800.1280, L3000.0375, L500.4050, L503.5510, L500.4100, L3100.5440, L100.0100, L3400.0700, L3300.0100, L300.3900, L501.6710, L3300.0700, L3100.6900 ####[facility] [address] [place], [address] Hematocrit (Bld) [Volume fraction] 37.9 % Normal 37-47 [facility] Comment on above: Performed By: #### L 803.2200, L3300.1200, L101.9900, L800.1280, L3000.0375, L500.4050, L503.5510, L500.4100, L3100.5440, L100.0100, L3400.0700, L3300.0100, L300.3900, L501.6710, L3300.0700, L3100.6900 ####[facility] [address] [place], [address] Hemoglobin (Bld) [Mass/Vol] 11.8 g/dL Low 12.0-15.0 [facility] Comment on above: Performed By: #### L 803.2200, L3300.1200, L101.9900, L800.1280, L3000.0375, L500.4050, L503.5510, L500.4100, L3100.5440, L100.0100, L3400.0700, L3300.0100, L300.3900, L501.6710, L3300.0700, L3100.6900 ####[facility] [address] [place], [place], [id number] IG% 0.600 Normal 0.0-0.9 [facility] Comment on above: Result Comment: IG% - Immature Granulocytes (promyelocytes, myelocytes andmetamyelocytes) > 1% indicates that a LEFT SHIFT is Present. Performed By: #### L 803.2200, L3300.1200, L101.9900, L800.1280, L3000.0375, L500.4050, L503.5510, L500.4100, L3100.5440, L100.0100, L3400.0700, L3300.0100, L300.3900, L501.6710, L3300.0700, L3100.6900 ####[facility] [address] [place], [address] Lymphocytes/100 WBC (Bld) 15.5 % Low 19-41 [facility] Comment on above: Performed By: #### L 803.2200, L3300.1200, L101.9900, L800.1280, L3000.0375, L500.4050, L503.5510, L500.4100, L3100.5440, L100.0100, L3400.0700, L3300.0100, L300.3900, L501.6710, L3300.0700, L3100.6900 ####[facility] [address] [place], [place], [address] MCH (RBC) [Entitic mass] 27.3 pg Normal 27.0-32.0 [facility] Comment on above: Performed By: #### L 803.2200, L3300.1200, L101.9900, L800.1280, L3000.0375, L500.4050, L503.5510, L500.4100, L3100.5440, L100.0100, L3400.0700, L3300.0100, L300.3900, L501.6710, L3300.0700, L3100.6900 ####[facility] [address] [place], [place], [id number] MCHC (RBC) [Mass/Vol] 31.1 g/dL Low 32-36 [place] Comment on above: Performed By: #### L 803.2200, L3300.1200, L101.9900, L800.1280, L3000.0375, L500.4050, L503.5510, L500.4100, L3100.5440, L100.0100, L3400.0700, L3300.0100, L300.3900, L501.6710, L3300.0700, L3100.6900 ####[facility] [address] [place], [place], [phone] MCV (RBC) [Entitic vol] 87.7 fL Normal 81-99 [facility] Comment on above: Performed By: #### L 803.2200, L3300.1200, L101.9900, L800.1280, L3000.0375, L500.4050, L503.5510, L500.4100, L3100.5440, L100.0100, L3400.0700, L3300.0100, L300.3900, L501.6710, L3300.0700, L3100.6900 ####[facility] [address] [place], [place], [id number] Monocytes/100 WBC (Bld) 7.2 % Normal 0-10 [facility] Comment on above: Performed By: #### L 803.2200, L3300.1200, L101.9900, L800.1280, L3000.0375, L500.4050, L503.5510, L500.4100, L3100.5440, L100.0100, L3400.0700, L3300.0100, L300.3900, L501.6710, L3300.0700, L3100.6900 ####[facility] [address] [place], [place], [phone] Neutrophils/100 WBC (Bld) 75.1 % High 47-70 [facility] Comment on above: Performed By: #### L 803.2200, L3300.1200, L101.9900, L800.1280, L3000.0375, L500.4050, L503.5510, L500.4100, L3100.5440, L100.0100, L3400.0700, L3300.0100, L300.3900, L501.6710, L3300.0700, L3100.6900 ####[facility] [address] [place], [address] Nucleated RBC (Bld) [#/Vol] 0 10*3/uL Normal 0-5 [facility] Comment on above: Performed By: #### L 803.2200, L3300.1200, L101.9900, L800.1280, L3000.0375, L500.4050, L503.5510, L500.4100, L3100.5440, L100.0100, L3400.0700, L3300.0100, L300.3900, L501.6710, L3300.0700, L3100.6900 ####[facility] [address] [place], [address] Platelet mean volume (Bld) [Entitic vol] 10.3 fL Normal 6.2-12.0 [facility] Comment on above: Performed By: #### L 803.2200, L3300.1200, L101.9900, L800.1280, L3000.0375, L500.4050, L503.5510, L500.4100, L3100.5440, L100.0100, L3400.0700, L3300.0100, L300.3900, L501.6710, L3300.0700, L3100.6900 ####[facility] [address] [place], [place], [address]([phone] Platelets (Bld) [#/Vol] 307 10*3/uL Normal 150-450 [facility] Comment on above: Performed By: #### L 803.2200, L3300.1200, L101.9900, L800.1280, L3000.0375, L500.4050, L503.5510, L500.4100, L3100.5440, L100.0100, L3400.0700, L3300.0100, L300.3900, L501.6710, L3300.0700, L3100.6900 ####[facility] [address] [place], [place], [address] RBC (Bld) [#/Vol] 4.32 10*6/uL Normal 4.2-5.4 [facility] Comment on above: Performed By: #### L 803.2200, L3300.1200, L101.9900, L800.1280, L3000.0375, L500.4050, L503.5510, L500.4100, L3100.5440, L100.0100, L3400.0700, L3300.0100, L300.3900, L501.6710, L3300.0700, L3100.6900 ####[facility] [address] [place], [place], [address] RDW SD 45.6 fl High 35.1-43.9 [facility] Comment on above: Performed By: #### L 803.2200, L3300.1200, L101.9900, L800.1280, L3000.0375, L500.4050, L503.5510, L500.4100, L3100.5440, L100.0100, L3400.0700, L3300.0100, L300.3900, L501.6710, L3300.0700, L3100.6900 ####[facility] [address] [facility] [place], [address] WBC (Bld) [#/Vol] 9.1 10*3/uL Normal 4.4-11.0 [facility] Comment on above: Performed By: #### L 803.2200, L3300.1200, L101.9900, L800.1280, L3000.0375, L500.4050, L503.5510, L500.4100, L3100.5440, L100.0100, L3400.0700, L3300.0100, L300.3900, L501.6710, L3300.0700, L3100.6900 ####[facility] [address] [place], [address] CRPon 05-10-2025 C-REACTIVE PROT 6.49 mg/L High 0.0-3.0 [facility] Comment on above: Performed By: #### L 803.2200, L3300.1200, L101.9900, L800.1280, L3000.0375, L500.4050, L503.5510, L500.4100, L3100.5440, L100.0100, L3400.0700, L3300.0100, L300.3900, L501.6710, L3300.0700, L3100.6900 ####[facility] [id number] [facility] [place], [address] Calculated very low density lipoprotein (VLDL) cholesterol measurementOrdered By: Tamar Lacey on 05-10-2025 Calculated very low density lipoprotein (VLDL) cholesterol measurement 14 mg/dL 5-40 [facility] Carbon dioxide, total [Moles /volume] in Central venous bloodOrdered By: Tamar Lacey on 05-10-2025 CO2 [Moles/Vol] 28.1 mmol/L 21.0-32.0 [facility] Chloride assayOrdered By: Ana Maria Lacey on 05-10-2025 Chloride [Moles/Vol] 102 mmol/L 98-108 [facility] Comprehensive Metabolic Prof ilon 05-10-2025 Albumin [Mass/Vol] 4.1 g/dL Normal 3.4-4.8 [facility] Comment on above: Performed By: #### L 803.2200, L3300.1200, L101.9900, L800.1280, L3000.0375, L500.4050, L503.5510, L500.4100, L3100.5440, L100.0100, L3400.0700, L3300.0100, L300.3900, L501.6710, L3300.0700, L3100.6900 ####[facility] [address] [place], [place], [phone] Albumin/Globulin [Mass ratio] 1.4 {ratio} Normal 0.9-2.4 [facility] Comment on above: Performed By: #### L 803.2200, L3300.1200, L101.9900, L800.1280, L3000.0375, L500.4050, L503.5510, L500.4100, L3100.5440, L100.0100, L3400.0700, L3300.0100, L300.3900, L501.6710, L3300.0700, L3100.6900 ####[facility] [address] [place], [address] ALK PHOS 75 U/L Normal 35-104 [facility] Comment on above: Performed By: #### L 803.2200, L3300.1200, L101.9900, L800.1280, L3000.0375, L500.4050, L503.5510, L500.4100, L3100.5440, L100.0100, L3400.0700, L3300.0100, L300.3900, L501.6710, L3300.0700, L3100.6900 ####[facility] [address] [place], [place], [phone] ALT [Catalytic activity/Vol] 13 U/L Normal <=34 [facility] Comment on above: Performed By: #### L 803.2200, L3300.1200, L101.9900, L800.1280, L3000.0375, L500.4050, L503.5510, L500.4100, L3100.5440, L100.0100, L3400.0700, L3300.0100, L300.3900, L501.6710, L3300.0700, L3100.6900 ####[facility] [address] [place], [address] AST [Catalytic activity/Vol] 15 U/L Normal <=31 [facility] Comment on above: Performed By: #### L 803.2200, L3300.1200, L101.9900, L800.1280, L3000.0375, L500.4050, L503.5510, L500.4100, L3100.5440, L100.0100, L3400.0700, L3300.0100, L300.3900, L501.6710, L3300.0700, L3100.6900 ####[facility] [address] [place], [address] Bilirubin [Mass/Vol] 0.45 mg/dL Normal 0.00-1.30 [facility] Comment on above: Performed By: #### L 803.2200, L3300.1200, L101.9900, L800.1280, L3000.0375, L500.4050, L503.5510, L500.4100, L3100.5440, L100.0100, L3400.0700, L3300.0100, L300.3900, L501.6710, L3300.0700, L3100.6900 ####[facility] [address] [place], [address] BUN/CRE 18.6 RATIO Normal 10-20 [facility] Comment on above: Performed By: #### L 803.2200, L3300.1200, L101.9900, L800.1280, L3000.0375, L500.4050, L503.5510, L500.4100, L3100.5440, L100.0100, L3400.0700, L3300.0100, L300.3900, L501.6710, L3300.0700, L3100.6900 ####[facility] [address] [place], [place], [phone]) Calcium [Mass/Vol] 9.4 mg/dL Normal 7.6-11.0 [facility] Comment on above: Performed By: #### L 803.2200, L3300.1200, L101.9900, L800.1280, L3000.0375, L500.4050, L503.5510, L500.4100, L3100.5440, L100.0100, L3400.0700, L3300.0100, L300.3900, L501.6710, L3300.0700, L3100.6900 ####[facility] [address] [place], [place], [phone]) Chloride [Moles/Vol] 102 mmol/L Normal 98-108 [facility] Comment on above: Performed By: #### L 803.2200, L3300.1200, L101.9900, L800.1280, L3000.0375, L500.4050, L503.5510, L500.4100, L3100.5440, L100.0100, L3400.0700, L3300.0100, L300.3900, L501.6710, L3300.0700, L3100.6900 ####[facility] [address] [place], [place], [phone] CO2 [Moles/Vol] 28.1 mmol/L Normal 21.0-32.0 [facility] Comment on above: Performed By: #### L 803.2200, L3300.1200, L101.9900, L800.1280, L3000.0375, L500.4050, L503.5510, L500.4100, L3100.5440, L100.0100, L3400.0700, L3300.0100, L300.3900, L501.6710, L3300.0700, L3100.6900 ####[facility] [address] [place], [address] Creatinine [Mass/Vol] 0.68 mg/dL Low 0.70-1.20 [place] Comment on above: Performed By: #### L 803.2200, L3300.1200, L101.9900, L800.1280, L3000.0375, L500.4050, L503.5510, L500.4100, L3100.5440, L100.0100, L3400.0700, L3300.0100, L300.3900, L501.6710, L3300.0700, L3100.6900 ####[facility] [address] [place], [address] GAP 11 Normal 5-15 [facility] Comment on above: Performed By: #### L 803.2200, L3300.1200, L101.9900, L800.1280, L3000.0375, L500.4050, L503.5510, L500.4100, L3100.5440, L100.0100, L3400.0700, L3300.0100, L300.3900, L501.6710, L3300.0700, L3100.6900 ####[facility] [address] [place], [address] GFR/1.73 sq M.predicted among non-blacks MDRD (S/P/Bld) [Vol rate/Area] 95 mL/min/{1.73_m2} Normal >60 [facility] Comment on above: Result Comment: mL/m in/1.73m2 CKD-EPI Creatinine Equation (2020) Performed By: #### L 803.2200, L3300.1200, L101.9900, L800.1280, L3000.0375, L500.4050, L503.5510, L500.4100, L3100.5440, L100.0100, L3400.0700, L3300.0100, L300.3900, L501.6710, L3300.0700, L3100.6900 ####[facility] [address] [place], [place], [phone]) Globulin (S) [Mass/Vol] 2.8 g/dL Normal 2.2-4.2 [facility] Comment on above: Performed By: #### L 803.2200, L3300.1200, L101.9900, L800.1280, L3000.0375, L500.4050, L503.5510, L500.4100, L3100.5440, L100.0100, L3400.0700, L3300.0100, L300.3900, L501.6710, L3300.0700, L3100.6900 ####[facility] [address] [place], [place], [phone](485) Glucose [Mass/Vol] 95 mg/dL Normal 70-99 [facility] Comment on above: Performed By: #### L 803.2200, L3300.1200, L101.9900, L800.1280, L3000.0375, L500.4050, L503.5510, L500.4100, L3100.5440, L100.0100, L3400.0700, L3300.0100, L300.3900, L501.6710, L3300.0700, L3100.6900 ####[facility] [address] [place], [place], [phone](052) Potassium [Moles/Vol] 3.2 mmol/L Low 3.3-5.1 [place] Comment on above: Performed By: #### L 803.2200, L3300.1200, L101.9900, L800.1280, L3000.0375, L500.4050, L503.5510, L500.4100, L3100.5440, L100.0100, L3400.0700, L3300.0100, L300.3900, L501.6710, L3300.0700, L3100.6900 ####[facility] [address] [place], [place], [phone] Sodium [Moles/Vol] 140 mmol/L Normal 133-145 [facility] Comment on above: Performed By: #### L 803.2200, L3300.1200, L101.9900, L800.1280, L3000.0375, L500.4050, L503.5510, L500.4100, L3100.5440, L100.0100, L3400.0700, L3300.0100, L300.3900, L501.6710, L3300.0700, L3100.6900 ####[facility] [address] [place], [address] T PROT 6.9 g/dL Normal 5.9-8.4 [facility] Comment on above: Performed By: #### L 803.2200, L3300.1200, L101.9900, L800.1280, L3000.0375, L500.4050, L503.5510, L500.4100, L3100.5440, L100.0100, L3400.0700, L3300.0100, L300.3900, L501.6710, L3300.0700, L3100.6900 ####[facility] [address] [place], [address] Urea nitrogen [Mass/Vol] 13 mg/dL Normal 4-19 [facility] Comment on above: Performed By: #### L 803.2200, L3300.1200, L101.9900, L800.1280, L3000.0375, L500.4050, L503.5510, L500.4100, L3100.5440, L100.0100, L3400.0700, L3300.0100, L300.3900, L501.6710, L3300.0700, L3100.6900 ####[facility] [address] [place], [place], [phone] Eosinophil percentageOrdered By: Tamar Lacey on 05-10-2025 Eosinophils/100 WBC (Bld) 1.3 % 0-5 [facility] Erythrocyte Sed Rateon 05-10 SED RATE 34 mm/hr High 0-30 [facility] Comment on above: Performed By: #### L 803.2200, L3300.1200, L101.9900, L800.1280, L3000.0375, L500.4050, L503.5510, L500.4100, L3100.5440, L100.0100, L3400.0700, L3300.0100, L300.3900, L501.6710, L3300.0700, L3100.6900 ####[facility] [address] [place], [place], [phone] Erythrocyte distribution wid th ratioOrdered By: Tamar Lacey on 05-10-2025 Erythrocyte distribution width (RBC) [Ratio] 14.3 % 11.6-14.6 [facility] Erythrocyte distribution wid th standard deviationOrdered By: Tamar Lacey on 05-10-2025 Erythrocyte distribution width (RBC) [Ratio] 45.6 fl High 35.1-43.9 [facility] Erythrocyte sedimentation ra teOrdered By: Tamar Lacey on 05-10-2025 ESR (Bld) [Velocity] 34 mm/h High 0-30 [facility] Gastroenterology Visit Repor ton 05-10-2025 Gastroenterology Visit Report Normal [facility] Glomerular filtration rate ( GFR) estimation/1.73 sq m using serum, plasma, or whole bOrdered By: Tamar Lacey on 05-10-2025 GFR/1.73 sq M.predicted among non-blacks MDRD (S/P/Bld) [Vol rate/Area] 95 mL/min/{1.73_m2} >60 [facility] Comment on above: mL/min/1.73m2 CKD-EP I Creatinine Equation (2020) Hematocrit Auto (Bld) [Volum e fraction]Ordered By: Tamar Lacey on 05-10-2025 Hematocrit (Bld) [Volume fraction] 37.9 % 37-47 [facility] Hemoglobin measurementOrdere d By: Tamar Lacey on 05-10-2025 Hemoglobin (Bld) [Mass/Vol] 11.8 g/dL Low 12.0-15.0 [facility] Immature granulocytes/100 WB C Auto (Bld)Ordered By: Tamar Lacey on 05-10-2025 Immature granulocytes/100 WBC (Bld) 0.600 % 0.0-0.9 [facility] Comment on above: IG% - Immature Granu locytes (promyelocytes, myelocytes and metamyelocytes) > 1% indicates that a LEFT SHIFT is Present. International normalized rat io (INR) calculationOrdered By: Tamar Lacey on 05-10-2025 INR Coag (Bld) [Relative time] 1.0 {INR} [facility] LDL calc ser/plasOrdered By: Tamar Lacey on 05-10-2025 Cholesterol in LDL [Mass/Vol] 82 mg/dL [facility] Comment on above: Mewiomsiwt=106-785 m g/dL & Higher Lmlo=933 mg/dL or greater Laboratory - Chemistry and C hemistry - challengeOrdered By: Tamar Lacey on 05-10-2025 AST [Catalytic activity/Vol] 15 U/L <32 [facility] Lipid Profileon 05-10-2025 CHOL:HDL 3.07 Normal [facility] Comment on above: Performed By: #### L 803.2200, L3300.1200, L101.9900, L800.1280, L3000.0375, L500.4050, L503.5510, L500.4100, L3100.5440, L100.0100, L3400.0700, L3300.0100, L300.3900, L501.6710, L3300.0700, L3100.6900 ####[facility] [address] [place], [place], [phone](983) Cholesterol [Mass/Vol] 142 mg/dL Normal <=200 [facility] Comment on above: Result Comment: Chol esterol level, Desirable <200 mg/dLBorderline high cholesterol 200-239 mg/dLHigh cholesterol >=240 mg/dLRecommendations of the NCEP Adult Treatment Panel for thefollowing risk-cutoff thresholds for the [place] [facility]. Performed By: #### L 803.2200, L3300.1200, L101.9900, L800.1280, L3000.0375, L500.4050, L503.5510, L500.4100, L3100.5440, L100.0100, L3400.0700, L3300.0100, L300.3900, L501.6710, L3300.0700, L3100.6900 ####[facility] [address] [place], [place], [phone](783) Cholesterol in HDL [Mass/Vol] 46 mg/dL Normal [facility] Comment on above: Result Comment: Mary onal Cholesterol Education Program (NCEP) guidelines:<40 mg/dL: Low HDL-cholesterol (major risk factor for CHD)>= 60 mg/dL: High HDL-cholesterol (negative risk factor forCHD)HDL-cholesterol is affected by a number of factors, e.g.smoking, exercise, hormones, sex and age. Performed By: #### L 803.2200, L3300.1200, L101.9900, L800.1280, L3000.0375, L500.4050, L503.5510, L500.4100, L3100.5440, L100.0100, L3400.0700, L3300.0100, L300.3900, L501.6710, L3300.0700, L3100.6900 ####[facility] [address] [place], [place], [phone](816) Cholesterol in LDL [Mass/Vol] 82 mg/dL Normal [facility] Comment on above: Result Comment: Bord tghhzr=445-057 mg/dL Higher Xebe=806 mg/dL or greater Performed By: #### L 803.2200, L3300.1200, L101.9900, L800.1280, L3000.0375, L500.4050, L503.5510, L500.4100, L3100.5440, L100.0100, L3400.0700, L3300.0100, L300.3900, L501.6710, L3300.0700, L3100.6900 ####[facility] [address] [facility]. [place], [place], [phone] Cholesterol in VLDL [Mass/Vol] 14 mg/dL Normal 5-40 [facility] Comment on above: Performed By: #### L 803.2200, L3300.1200, L101.9900, L800.1280, L3000.0375, L500.4050, L503.5510, L500.4100, L3100.5440, L100.0100, L3400.0700, L3300.0100, L300.3900, L501.6710, L3300.0700, L3100.6900 ####[facility] [address] [facility]. [place], [place], [phone] Triglyceride [Mass/Vol] 69 mg/dL Normal [facility] Comment on above: Result Comment: The drugs N-Acetylcysteine and Metamizole may falselydepress this assay.Normal range: <150 mg/dLBorderline High: 150-199 mg/dLHigh: 200-499 mg/dLVery High: >500 mg/dL Performed By: #### L 803.2200, L3300.1200, L101.9900, L800.1280, L3000.0375, L500.4050, L503.5510, L500.4100, L3100.5440, L100.0100, L3400.0700, L3300.0100, L300.3900, L501.6710, L3300.0700, L3100.6900 ####[facility] [address] [place], [address] MCV (mean corpuscular volume ) determinationOrdered By: Tamar Lacey on 05-10-2025 MCV (RBC) [Entitic vol] 87.7 fL 81-99 [facility] Mean corpuscular hemoglobin (MCH) determinationOrdered By: Tamar Lacey on 05-10-2025 MCH (RBC) [Entitic mass] 27.3 pg 27.0-32.0 [facility] Mean corpuscular hemoglobin concentration (MCHC) determinationOrdered By: Tamar Lacey on 05-10-2025 MCHC (RBC) [Mass/Vol] 31.1 g/dL Low 32-36 [place] Mean platelet volume determi nationOrdered By: Tamar Lacey on 05-10-2025 Platelet mean volume (Bld) [Entitic vol] 10.3 fL 6.2-12.0 [facility] Monocyte percentageOrdered B y: Tamar Lacey on 05-10-2025 Monocytes/100 WBC (Bld) 7.2 % 0-10 [facility] Neutrophil percentageOrdered By: Tamar Lacey on 05-10-2025 Neutrophils/100 WBC (Bld) 75.1 % High 47-70 [facility] No Panel InformationOrdered By: Tamar Lacey on 05-10-2025 Hepatitis C Antibody Comment Comment . [facility] Comment on above: Not infected with HC V unless early or acute infection issuspected (which may be delayed in an immunocompromisedindividual), or other evidence exists to indicate HCVinfection. Nucleated red blood cell per centageOrdered By: Tamar Lacey on 05-10-2025 Nucleated RBC/100 WBC (Bld) [Ratio] 0 % 0-5 [facility] Platelet countOrdered By: Ana Maria Lacey on 05-10-2025 Platelets (Bld) [#/Vol] 307 10*3/uL 150-450 [facility] Potassium measurement (mass/ volume)Ordered By: Tamar Lacey on 05-10-2025 Potassium (Unsp spec) [Mass/Vol] 3.2 mmol/L Low 3.3-5.1 [facility] Prothrombin Time w/INRon INR Coag (PPP) [Relative time] 1.0 {INR} Normal [facility] Comment on above: Performed By: #### L 803.2200, L3300.1200, L101.9900, L800.1280, L3000.0375, L500.4050, L503.5510, L500.4100, L3100.5440, L100.0100, L3400.0700, L3300.0100, L300.3900, L501.6710, L3300.0700, L3100.6900 ####[facility] [address] [place], [place], [phone] PT Coag (PPP) [Time] 13.2 s Normal 11.7-14.9 [facility] Comment on above: Performed By: #### L 803.2200, L3300.1200, L101.9900, L800.1280, L3000.0375, L500.4050, L503.5510, L500.4100, L3100.5440, L100.0100, L3400.0700, L3300.0100, L300.3900, L501.6710, L3300.0700, L3100.6900 ####[facility] [address] [place], [place], [phone] Prothrombin timeOrdered By: Tamar Lacey on 05-10-2025 PT Coag (PPP) [Time] 13.2 s 11.7-14.9 [facility] RBC Auto (Bld) [#/Vol]Ordere d By: Tamar Lacey on 05-10-2025 RBC (Bld) [#/Vol] 4.32 10*6/uL 4.2-5.4 [facility] Screening total cholesterol/ high density lipoprotein (HDL) cholesterol ratioOrdered By: Tamar Lacey on 05-10-2025 Cholesterol.total/Cholest rach in HDL [Mass ratio] 3.07 {ratio} [facility] Serum DNA double strand anti body assay (units/volume)Ordered By: Tamar Lacey on 05-10-2025 DNA double strand Ab Qn (S) [IU]/mL 0-9 [facility] Comment on above: Negative <5 Equivoca l 5 - 9 Positive >9 Serum Scl-70 antibody assay (units/volume)Ordered By: Tamar Lacey on 05-10-2025 SCL-70 extractable nuclear Ab Qn (S) <0.2 AI 0.0-0.9 [facility] Comment on above: Previous reported re sult: TNP AIEdited by: YELENA on 05/11/25:1707 AMENDED REPORT 05/11/251706 ANTISCLER previously reported as: Test not performed Serum classic neutrophil cyt oplasmic antibody assay (units/volume)Ordered By: Tamar Lacey on 05-10-2025 Neutrophil cytoplasmic Ab.classic Qn (S) <1:20 titer Neg:<1:20 [facility] Serum creatinine measurement (mass/volume)Ordered By: Tamar Lacey on 05-10-2025 Creatinine [Mass/Vol] 0.68 mg/dL Low 0.70-1.20 [place] Serum globulin measurementOr dered By: Tamar Lacey on 05-10-2025 Globulin (S) [Mass/Vol] 2.8 g/dL 2.2-4.2 [facility] Serum glucose measurement (m ass/volume)Ordered By: Tamar Lacey on 05-10-2025 Glucose [Mass/Vol] 95 mg/dL 70-99 [facility] Serum mitochondria antibody detectionOrdered By: Tamar Lacey on 05-10-2025 Mitochondria Ab Ql (S) <20.0 Units 0.0-20.0 [facility] Comment on above: Negative 0.0 - 20.0 Equivocal 20.1 - 24.9 Positive >24.9Mitochondrial (M2) Antibodies are found in 90-96% ofpatients with primary biliary cirrhosis.Performed at: [facility] [address] [id number] Director: Prabhu Sorenson PhD, Phone: [phone] Serum or plasma C reactive p rotein measurement (mass/volume)Ordered By: Tamar Lacey on 05-10-2025 CRP [Mass/Vol] 6.49 mg/L High 0.0-3.0 [facility] Serum or plasma actin IgG an tibody assay (units/volume)Ordered By: Tamar Lacey on 05-10-2025 Actin IgG Qn 4 Units 0-19 [facility] Comment on above: Negative 0 - 19 Weak positive 20 - 30 Moderate to strong positive >30 Actin Antibodies are found in 52-85% of patients with autoimmune hepatitis or chronic active hepatitis and in 22% of patients with primary biliary cirrhosis. Serum or plasma alanine marley otransferase (ALT) measurementOrdered By: Tamar Lacey on 05-10-2025 ALT [Catalytic activity/Vol] 13 U/L <35 [facility] Serum or plasma albumin rosa urement (mass/volume)Ordered By: Tamar Lacey on 05-10-2025 Albumin [Mass/Vol] 4.1 g/dL 3.4-4.8 [facility] Serum or plasma albumin/glob ulin mass ratioOrdered By: Tamar Lacey on 05-10-2025 Albumin/Globulin [Mass ratio] 1.4 {ratio} 0.9-2.4 [facility] Serum or plasma alkaline yosvany sphatase measurementOrdered By: Tamar Lacey on 05-10-2025 ALP [Catalytic activity/Vol] 75 U/L 35-104 [facility] Serum or plasma angiotensin converting enzyme measurement (enzymatic activity/volume)Ordered By: Tamar Lacey on 05-10-2025 Angiotensin converting enzyme [Catalytic activity/Vol] 37 U/L 14-82 [facility] Serum or plasma calcium rosa urement (mass/volume)Ordered By: Tamar Lacey on 05-10-2025 Calcium [Mass/Vol] 9.4 mg/dL 7.6-11.0 [facility] Serum or plasma cholesterol in HDL measurement (mass/volume)Ordered By: Tamar Lacey on 05-10-2025 Cholesterol in HDL [Mass/Vol] 46 mg/dL >40 [facility] Comment on above: National Cholesterol Education Program (NCEP) guidelines:<40 mg/dL: Low HDL-cholesterol (major risk factor for CHD)>= 60 mg/dL: High HDL-cholesterol (negative risk factor for CHD)HDL-cholesterol is affected by a number of factors, e.g. smoking, exercise, hormones, sex and age. Serum or plasma cholesterol measurement (mass/volume)Ordered By: Tamar Lacey on 05-10-2025 Cholesterol [Mass/Vol] 142 mg/dL <201 [facility] Comment on above: Cholesterol level, D esirable <200 mg/dLBorderline high cholesterol 200-239 mg/dLHigh cholesterol >=240 mg/dLRecommendations of the NCEP Adult Treatment Panel for the following risk-cutoff thresholds for the [place] population. Serum or plasma hepatitis B virus surface antigen detection by immunoassayOrdered By: Tamar Lacey on 05-10-2025 HBV surface Ag IA Ql Negative Negative [facility] Serum or plasma urea nitroge n measurement (mass/volume)Ordered By: Tamar Lacey on 05-10-2025 Urea nitrogen [Mass/Vol] 13 mg/dL 4-19 [facility] Serum perinuclear neutrophil cytoplasmic antibody titer by immunofluorescenceOrdered By: Tamar Lacey on 05-10-2025 Neutrophil cytoplasmic Ab.perinuclear IF (S) [Titer] <1:20 titer Neg:<1:20 [facility] Comment on above: The presence of posi tive fluorescence exhibiting P-ANCA orC-ANCA patterns alone is not specific for the diagnosis ofWegener's Granulomatosis (WG) or microscopic polyangiitis.Decisions about treatment should not be based solely onANCA IFA results. The International ANCA Group Consensusrecommends follow up testing of positive sera with both ME-3 and MPO-ANCA enzyme immunoassays. As many as 5% serumsamples are positive only by EIA. Ref. AM J Clin Jmyahq2856;111:507-513. Sodium levelOrdered By: Delia Lacey on 05-10-2025 Sodium [Moles/Vol] 140 mmol/L 133-145 [facility] Total proteinOrdered By: Kamala Lacey on 05-10-2025 Protein [Mass/Vol] 6.9 g/dL 5.9-8.4 [facility] Triglycerides measurementOrd ered By: Tamar Lacey on 05-10-2025 Triglyceride [Mass/Vol] 69 mg/dL <199 [facility] Comment on above: The drugs N-Acetylcy steine and Metamizole may falsely depress this assay. Normal range: <150 mg/dLBorderline High: 150-199 mg/dLHigh: 200-499 mg/dLVery High: >500 mg/dL Venous blood ammonia measure mentOrdered By: Tamar Lacey on 05-10-2025 Ammonia (P) [Moles/Vol] 23.1 umol/L 11-51 [facility] White blood cell (WBC) count Ordered By: Tamar Lacey on 05-10-2025 WBC (Bld) [#/Vol] 9.1 10*3/uL 4.4-11.0 [facility] Microalb:Creat Ratio,Random URon 05-09-2025 MALB:CREAT 77.5 mg/g CRE Normal [facility] Comment on above: Result Comment: AMENDED REPORT 05/09/25 1105 MALB:CREAT previously reported as: 774.9 mg/g CRE Performed By: #### L 100.0500, L500.4100, L509.1000, L506.1001, L502.0250, L503.6030, L501.5200, L500.4050 ####[facility] [address] [place], [place], [phone] EGD Reporton 04-18-2025 EGD Report Normal [facility] MR/POSTOP.ANEon 04-18-2025 MR/POSTOP.ANE Normal [facility] MR/JWNTBRIP2nn 04-18-2025 MR/POSTOPAN2 Normal [facility] Surgery Specimen Level Akash 04-18-2025 Surgery Specimen Level IV Normal [facility] Comment on above: Performed By: #### P SUIV ####[facility] [id number] [place], [place], [id number] Anion gap in Serum or Plasma Ordered By: Carline Ashley on 04-12-2025 Anion gap [Moles/Vol] 13 mmol/L 5-15 [place] BUN/creatinine ratioOrdered By: Carline Ashley on 04-12-2025 Urea nitrogen/Creatinine [Mass ratio] 20.0 mg/mg 10-20 [facility] Bilirubin, totalOrdered By: Carline Ashley on 04-12-2025 Bilirubin [Mass/Vol] 0.38 mg/dL 0.00-1.30 [facility] CBC-Complete Blood Cnt No Di ffon 04-12-2025 Erythrocyte distribution width (RBC) [Ratio] 14.1 % Normal 11.6-14.6 [facility] Comment on above: Performed By: #### L 100.0500, L500.4100, L509.1000, L506.1001, L502.0250, L503.6030, L501.5200, L500.4050 ####[facility] [id number] [place], [address] Hematocrit (Bld) [Volume fraction] 40.7 % Normal 37-47 [facility] Comment on above: Performed By: #### L 100.0500, L500.4100, L509.1000, L506.1001, L502.0250, L503.6030, L501.5200, L500.4050 ####[facility] [id number] [place], [address] Hemoglobin (Bld) [Mass/Vol] 12.6 g/dL Normal 12.0-15.0 [facility] Comment on above: Performed By: #### L 100.0500, L500.4100, L509.1000, L506.1001, L502.0250, L503.6030, L501.5200, L500.4050 ####[facility] [address] [place], [address] MCH (RBC) [Entitic mass] 27.3 pg Normal 27.0-32.0 [facility] Comment on above: Performed By: #### L 100.0500, L500.4100, L509.1000, L506.1001, L502.0250, L503.6030, L501.5200, L500.4050 ####[facility] [address] [place], [address] MCHC (RBC) [Mass/Vol] 31.0 g/dL Low 32-36 [place] Comment on above: Performed By: #### L 100.0500, L500.4100, L509.1000, L506.1001, L502.0250, L503.6030, L501.5200, L500.4050 ####[facility] [address] [place], [address] MCV (RBC) [Entitic vol] 88.1 fL Normal 81-99 [facility] Comment on above: Performed By: #### L 100.0500, L500.4100, L509.1000, L506.1001, L502.0250, L503.6030, L501.5200, L500.4050 ####[facility] [address] [place], [address] Platelet mean volume (Bld) [Entitic vol] 10.5 fL Normal 6.2-12.0 [facility] Comment on above: Performed By: #### L 100.0500, L500.4100, L509.1000, L506.1001, L502.0250, L503.6030, L501.5200, L500.4050 ####[facility] [address] [place], [address] Platelets (Bld) [#/Vol] 302 10*3/uL Normal 150-450 [facility] Comment on above: Performed By: #### L 100.0500, L500.4100, L509.1000, L506.1001, L502.0250, L503.6030, L501.5200, L500.4050 ####[facility] [address] [place], [address] RBC (Bld) [#/Vol] 4.62 10*6/uL Normal 4.2-5.4 [facility] Comment on above: Performed By: #### L 100.0500, L500.4100, L509.1000, L506.1001, L502.0250, L503.6030, L501.5200, L500.4050 ####[facility] [address] [place], [place], [id number]) RDW SD 45.6 fl High 35.1-43.9 [facility] Comment on above: Performed By: #### L 100.0500, L500.4100, L509.1000, L506.1001, L502.0250, L503.6030, L501.5200, L500.4050 ####[facility] [address] [place], [place], [id number] WBC (Bld) [#/Vol] 9.0 10*3/uL Normal 4.4-11.0 [facility] Comment on above: Performed By: #### L 100.0500, L500.4100, L509.1000, L506.1001, L502.0250, L503.6030, L501.5200, L500.4050 ####[facility] [address] [place], [place], [id number] Calculated very low density lipoprotein (VLDL) cholesterol measurementOrdered By: Carline Ashley on 04-12-2025 Calculated very low density lipoprotein (VLDL) cholesterol measurement 20 mg/dL 5-40 [facility] Carbon dioxide, total [Moles /volume] in Central venous bloodOrdered By: Carline Ashley on 04-12-2025 CO2 [Moles/Vol] 28.1 mmol/L 21.0-32.0 [facility] Chloride assayOrdered By: Nieves Ashley on 04-12-2025 Chloride [Moles/Vol] 99 mmol/L 98-108 [facility] Comprehensive Metabolic Prof ilon 04-12-2025 Albumin [Mass/Vol] 4.4 g/dL Normal 3.4-4.8 [facility] Comment on above: Performed By: #### L 100.0500, L500.4100, L509.1000, L506.1001, L502.0250, L503.6030, L501.5200, L500.4050 ####[facility] [address] [place], [address] Albumin/Globulin [Mass ratio] 1.6 {ratio} Normal 0.9-2.4 [facility] Comment on above: Performed By: #### L 100.0500, L500.4100, L509.1000, L506.1001, L502.0250, L503.6030, L501.5200, L500.4050 ####[facility] [address] [place], [address] ALK PHOS 76 U/L Normal 35-104 [facility] Comment on above: Performed By: #### L 100.0500, L500.4100, L509.1000, L506.1001, L502.0250, L503.6030, L501.5200, L500.4050 ####[facility] [address] [place], [address] ALT [Catalytic activity/Vol] 11 U/L Normal <=34 [facility] Comment on above: Performed By: #### L 100.0500, L500.4100, L509.1000, L506.1001, L502.0250, L503.6030, L501.5200, L500.4050 ####[facility] [address] [place], [address] AST [Catalytic activity/Vol] 15 U/L Normal <=31 [facility] Comment on above: Performed By: #### L 100.0500, L500.4100, L509.1000, L506.1001, L502.0250, L503.6030, L501.5200, L500.4050 ####[facility] [address] [place], [address] Bilirubin [Mass/Vol] 0.38 mg/dL Normal 0.00-1.30 [facility] Comment on above: Performed By: #### L 100.0500, L500.4100, L509.1000, L506.1001, L502.0250, L503.6030, L501.5200, L500.4050 ####[facility] [address] [place], [address] BUN/CRE 20.0 RATIO Normal 10-20 [facility] Comment on above: Performed By: #### L 100.0500, L500.4100, L509.1000, L506.1001, L502.0250, L503.6030, L501.5200, L500.4050 ####[facility] [address] [place], [address] Calcium [Mass/Vol] 9.7 mg/dL Normal 7.6-11.0 [facility] Comment on above: Performed By: #### L 100.0500, L500.4100, L509.1000, L506.1001, L502.0250, L503.6030, L501.5200, L500.4050 ####[facility] [address] [place], [address] Chloride [Moles/Vol] 99 mmol/L Normal 98-108 [facility] Comment on above: Performed By: #### L 100.0500, L500.4100, L509.1000, L506.1001, L502.0250, L503.6030, L501.5200, L500.4050 ####[facility] [address] [place], [address] CO2 [Moles/Vol] 28.1 mmol/L Normal 21.0-32.0 [facility] Comment on above: Performed By: #### L 100.0500, L500.4100, L509.1000, L506.1001, L502.0250, L503.6030, L501.5200, L500.4050 ####[facility] [address] [place], [address] Creatinine [Mass/Vol] 0.65 mg/dL Low 0.70-1.20 [place] Comment on above: Performed By: #### L 100.0500, L500.4100, L509.1000, L506.1001, L502.0250, L503.6030, L501.5200, L500.4050 ####[facility] [address] [place], [place], [id number] GAP 13 Normal 5-15 [facility] Comment on above: Performed By: #### L 100.0500, L500.4100, L509.1000, L506.1001, L502.0250, L503.6030, L501.5200, L500.4050 ####[facility] [address] [place], [place], [id number] GFR/1.73 sq M.predicted among non-blacks MDRD (S/P/Bld) [Vol rate/Area] 97 mL/min/{1.73_m2} Normal >60 [facility] Comment on above: Result Comment: mL/m in/1.73m2 CKD-EPI Creatinine Equation (2020) Performed By: #### L 100.0500, L500.4100, L509.1000, L506.1001, L502.0250, L503.6030, L501.5200, L500.4050 ####[facility] [address] [place], [address] Globulin (S) [Mass/Vol] 2.7 g/dL Normal 2.2-4.2 [facility] Comment on above: Performed By: #### L 100.0500, L500.4100, L509.1000, L506.1001, L502.0250, L503.6030, L501.5200, L500.4050 ####[facility] [address] [place], [address] Glucose [Mass/Vol] 89 mg/dL Normal 70-99 [facility] Comment on above: Performed By: #### L 100.0500, L500.4100, L509.1000, L506.1001, L502.0250, L503.6030, L501.5200, L500.4050 ####[facility] [address] [place], [address] Potassium [Moles/Vol] 3.9 mmol/L Normal 3.3-5.1 [place] Comment on above: Performed By: #### L 100.0500, L500.4100, L509.1000, L506.1001, L502.0250, L503.6030, L501.5200, L500.4050 ####[facility] [address] [place], [address] Sodium [Moles/Vol] 139 mmol/L Normal 133-145 [facility] Comment on above: Performed By: #### L 100.0500, L500.4100, L509.1000, L506.1001, L502.0250, L503.6030, L501.5200, L500.4050 ####[facility] [address] [place], [address] T PROT 7.1 g/dL Normal 5.9-8.4 [facility] Comment on above: Performed By: #### L 100.0500, L500.4100, L509.1000, L506.1001, L502.0250, L503.6030, L501.5200, L500.4050 ####[facility] [address] [place], [address] Urea nitrogen [Mass/Vol] 13 mg/dL Normal 4-19 [facility] Comment on above: Performed By: #### L 100.0500, L500.4100, L509.1000, L506.1001, L502.0250, L503.6030, L501.5200, L500.4050 ####[facility] [address] [place], [place], [address] Erythrocyte distribution wid th ratioOrdered By: Carline Ashley on 04-12-2025 Erythrocyte distribution width (RBC) [Ratio] 14.1 % 11.6-14.6 [facility] Erythrocyte distribution wid th standard deviationOrdered By: Carline Ashley on 04-12-2025 Erythrocyte distribution width (RBC) [Ratio] 45.6 fl High 35.1-43.9 [facility] Glomerular filtration rate ( GFR) estimation/1.73 sq m using serum, plasma, or whole bOrdered By: Carline Ashley on 04-12-2025 GFR/1.73 sq M.predicted among non-blacks MDRD (S/P/Bld) [Vol rate/Area] 97 mL/min/{1.73_m2} >60 [facility] Comment on above: mL/min/1.73m2 CKD-EP I Creatinine Equation (2020) Hematocrit Auto (Bld) [Volum e fraction]Ordered By: Carline Ashley on 04-12-2025 Hematocrit (Bld) [Volume fraction] 40.7 % 37-47 [facility] Hemoglobin measurementOrdere d By: Carline Ashley on 04-12-2025 Hemoglobin (Bld) [Mass/Vol] 12.6 g/dL 12.0-15.0 [facility] Iron measurement (mass/mass) Ordered By: Carline Ashley on 04-12-2025 Iron (Unsp spec) [Mass/Mass] 78 ug/dL 50-170 [facility] Iron+Iron Binding Capacityon 04-12-2025 Iron [Mass/Vol] 78 ug/dL Normal 50-170 [facility] Comment on above: Performed By: #### L 100.0500, L500.4100, L509.1000, L506.1001, L502.0250, L503.6030, L501.5200, L500.4050 ####[facility] [address] [place], [address] IRON SATURATION 21.0 Normal 13-59 [facility] Comment on above: Performed By: #### L 100.0500, L500.4100, L509.1000, L506.1001, L502.0250, L503.6030, L501.5200, L500.4050 ####[facility] [address] [place], [address] TIBC 372 ug/dL Normal 250-450 [facility] Comment on above: Performed By: #### L 100.0500, L500.4100, L509.1000, L506.1001, L502.0250, L503.6030, L501.5200, L500.4050 ####[facility] [address] [place], [address] UIBC 294 ug/dL Normal 228-428 [facility] Comment on above: Performed By: #### L 100.0500, L500.4100, L509.1000, L506.1001, L502.0250, L503.6030, L501.5200, L500.4050 ####[facility] [address] [place], [address] LDL calc ser/plasOrdered By: Carline Ashley on 04-12-2025 Cholesterol in LDL [Mass/Vol] 96 mg/dL [facility] Comment on above: Ueelqxkdzh=727-171 m g/dL & Higher Bgfw=439 mg/dL or greater Laboratory - Chemistry and C hemistry - challengeOrdered By: Carline Ashley on 04-12-2025 AST [Catalytic activity/Vol] 15 U/L <32 [facility] Lipid Profileon 04-12-2025 CHOL:HDL 3.21 Normal [facility] Comment on above: Performed By: #### L 100.0500, L500.4100, L509.1000, L506.1001, L502.0250, L503.6030, L501.5200, L500.4050 ####[facility] [address] [place], [address] Cholesterol [Mass/Vol] 169 mg/dL Normal <=200 [facility] Comment on above: Result Comment: Chol esterol level, Desirable <200 mg/dLBorderline high cholesterol 200-239 mg/dLHigh cholesterol >=240 mg/dLRecommendations of the NCEP Adult Treatment Panel for thefollowing risk-cutoff thresholds for the [place] [facility]. Performed By: #### L 100.0500, L500.4100, L509.1000, L506.1001, L502.0250, L503.6030, L501.5200, L500.4050 ####[facility] [address] [place], [address] Cholesterol in HDL [Mass/Vol] 53 mg/dL Normal [facility] Comment on above: Result Comment: Mary onal Cholesterol Education Program (NCEP) guidelines:<40 mg/dL: Low HDL-cholesterol (major risk factor for CHD)>= 60 mg/dL: High HDL-cholesterol (negative risk factor forCHD)HDL-cholesterol is affected by a number of factors, e.g.smoking, exercise, hormones, sex and age. Performed By: #### L 100.0500, L500.4100, L509.1000, L506.1001, L502.0250, L503.6030, L501.5200, L500.4050 ####[facility] [address] [place], [address] Cholesterol in LDL [Mass/Vol] 96 mg/dL Normal [facility] Comment on above: Result Comment: Bord dktkia=234-471 mg/dL Higher Ivra=503 mg/dL or greater Performed By: #### L 100.0500, L500.4100, L509.1000, L506.1001, L502.0250, L503.6030, L501.5200, L500.4050 ####[facility] [address] [place], [address] Cholesterol in VLDL [Mass/Vol] 20 mg/dL Normal 5-40 [facility] Comment on above: Performed By: #### L 100.0500, L500.4100, L509.1000, L506.1001, L502.0250, L503.6030, L501.5200, L500.4050 ####[facility] [address] [place], [address] Triglyceride [Mass/Vol] 102 mg/dL Normal [facility] Comment on above: Result Comment: The drugs N-Acetylcysteine and Metamizole may falselydepress this assay.Normal range: <150 mg/dLBorderline High: 150-199 mg/dLHigh: 200-499 mg/dLVery High: >500 mg/dL Performed By: #### L 100.0500, L500.4100, L509.1000, L506.1001, L502.0250, L503.6030, L501.5200, L500.4050 ####[facility] [address] [place], [place], [id number] MCV (mean corpuscular volume ) determinationOrdered By: Carline Ashley on 04-12-2025 MCV (RBC) [Entitic vol] 88.1 fL 81-99 [facility] MR/PAT.ANEon 04-12-2025 MR/PAT.ANE Normal [facility] Magnesiumon 04-12-2025 Magnesium [Mass/Vol] 1.7 mg/dL Normal 1.5-2.2 [facility] Comment on above: Performed By: #### L 100.0500, L500.4100, L509.1000, L506.1001, L502.0250, L503.6030, L501.5200, L500.4050 ####[facility] [address] [place], [address] Magnesium measurement (mass/ volume)Ordered By: Carline Ashley on 04-12-2025 Magnesium (Unsp spec) [Mass/Vol] 1.7 mg/dL 1.5-2.2 [facility] Mean corpuscular hemoglobin (MCH) determinationOrdered By: Carline Ashley on 04-12-2025 MCH (RBC) [Entitic mass] 27.3 pg 27.0-32.0 [facility] Mean corpuscular hemoglobin concentration (MCHC) determinationOrdered By: Carline Ashley on 04-12-2025 MCHC (RBC) [Mass/Vol] 31.0 g/dL Low 32-36 [place] Mean platelet volume determi nationOrdered By: Carline Ashley on 04-12-2025 Platelet mean volume (Bld) [Entitic vol] 10.5 fL 6.2-12.0 [facility] No Panel InformationOrdered By: Carline Ashley on 04-12-2025 Unsaturated Iron Binding Capacity 294 ug/dL 228-428 [facility] PTHINon 04-12-2025 PTH 72 pg/mL High 11-61 [facility] Comment on above: Performed By: #### L 100.0500, L500.4100, L509.1000, L506.1001, L502.0250, L503.6030, L501.5200, L500.4050 ####[facility] [address] [place], [address] Platelet countOrdered By: Nieves Ashley on 04-12-2025 Platelets (Bld) [#/Vol] 302 10*3/uL 150-450 [facility] Potassium measurement (mass/ volume)Ordered By: Carline Ashley on 04-12-2025 Potassium (Unsp spec) [Mass/Vol] 3.9 mmol/L 3.3-5.1 [facility] RBC Auto (Bld) [#/Vol]Ordere d By: Carline Ashley on 04-12-2025 RBC (Bld) [#/Vol] 4.62 10*6/uL 4.2-5.4 [facility] Random urine creatinine rosa urement (mass/volume)Ordered By: Carline Ashley on 04-12-2025 Creatinine Unsp time (U) [Mass/Vol] 35.10 mg/dL 28.00-217. 00 [facility] Screening total cholesterol/ high density lipoprotein (HDL) cholesterol ratioOrdered By: Carline Ashley on 04-12-2025 Cholesterol.total/Cholest rach in HDL [Mass ratio] 3.21 {ratio} [facility] Serum creatinine measurement (mass/volume)Ordered By: Carline Ashley on 04-12-2025 Creatinine [Mass/Vol] 0.65 mg/dL Low 0.70-1.20 [place] Serum globulin measurementOr dered By: Carline Ashley on 04-12-2025 Globulin (S) [Mass/Vol] 2.7 g/dL 2.2-4.2 [facility] Serum glucose measurement (m ass/volume)Ordered By: Carline Ashley on 04-12-2025 Glucose [Mass/Vol] 89 mg/dL 70-99 [facility] Serum or plasma alanine marley otransferase (ALT) measurementOrdered By: Carline Ashley on 04-12-2025 ALT [Catalytic activity/Vol] 11 U/L <35 [facility] Serum or plasma albumin rosa urement (mass/volume)Ordered By: Carline Ashley on 04-12-2025 Albumin [Mass/Vol] 4.4 g/dL 3.4-4.8 [facility] Serum or plasma albumin/glob ulin mass ratioOrdered By: Carline Ashley on 04-12-2025 Albumin/Globulin [Mass ratio] 1.6 {ratio} 0.9-2.4 [facility] Serum or plasma alkaline yosvany sphatase measurementOrdered By: Carline Ashley on 04-12-2025 ALP [Catalytic activity/Vol] 76 U/L 35-104 [facility] Serum or plasma calcium rosa urement (mass/volume)Ordered By: Carline Ashley on 04-12-2025 Calcium [Mass/Vol] 9.7 mg/dL 7.6-11.0 [facility] Serum or plasma cholesterol in HDL measurement (mass/volume)Ordered By: Carline Ashley on 04-12-2025 Cholesterol in HDL [Mass/Vol] 53 mg/dL >40 [facility] Comment on above: National Cholesterol Education Program (NCEP) guidelines:<40 mg/dL: Low HDL-cholesterol (major risk factor for CHD)>= 60 mg/dL: High HDL-cholesterol (negative risk factor for CHD)HDL-cholesterol is affected by a number of factors, e.g. smoking, exercise, hormones, sex and age. Serum or plasma cholesterol measurement (mass/volume)Ordered By: Carline Ashley on 04-12-2025 Cholesterol [Mass/Vol] 169 mg/dL <201 [facility] Comment on above: Cholesterol level, D esirable <200 mg/dLBorderline high cholesterol 200-239 mg/dLHigh cholesterol >=240 mg/dLRecommendations of the NCEP Adult Treatment Panel for the following risk-cutoff thresholds for the [place] population. Serum or plasma iron saturat ion measurement (mass fraction)Ordered By: Carline Ashley on 04-12-2025 Iron saturation [Mass fraction] 21.0 % 13-59 [facility] Serum or plasma urea nitroge n measurement (mass/volume)Ordered By: Carline Ashley on 04-12-2025 Urea nitrogen [Mass/Vol] 13 mg/dL 4-19 [facility] Sodium levelOrdered By: Da Ashley on 04-12-2025 Sodium [Moles/Vol] 139 mmol/L 133-145 [facility] Total proteinOrdered By: Joshua Ashley on 04-12-2025 Protein [Mass/Vol] 7.1 g/dL 5.9-8.4 [facility] Triglycerides measurementOrd ered By: Carline Ashley on 04-12-2025 Triglyceride [Mass/Vol] 102 mg/dL <199 [facility] Comment on above: The drugs N-Acetylcy steine and Metamizole may falsely depress this assay. Normal range: <150 mg/dLBorderline High: 150-199 mg/dLHigh: 200-499 mg/dLVery High: >500 mg/dL Urine albumin measurement wi th detection limit of 20 mg/L or less (mass/volume)Ordered By: Carline Ashley on 04-12-2025 Albumin DL <= 20 mg/L (U) [Mass/Vol] 27.2 mg/L NO RANGE EST. [facility] Vitamin D,25 Hydroxyon 04-12 Vitamin D 25-OH 44.4 ng/mL Normal 30-100 [facility] Comment on above: Result Comment: [place] min D StatusDeficiency: <20 ng/mL (50nmol/L)Insufficiency: 20-30 ng/mL (50-75 nmol/L)Sufficiency: 30-100 ng/mL (75-250 nmol/L)Toxicity: >100 ng/mL (>250 nmol/L) Performed By: #### L 100.0500, L500.4100, L509.1000, L506.1001, L502.0250, L503.6030, L501.5200, L500.4050 ####[facility] [address] [place], [address] White blood cell (WBC) count Ordered By: Carline Ashley on 04-12-2025 WBC (Bld) [#/Vol] 9.0 10*3/uL 4.4-11.0 [facility] Pulmonary Visit Reporton Pulmonary Visit Report Normal [facility] ABD Limited w/ Elastographyo n 02-24-2025 ABD Limited w/ Elastography Normal [facility] 6 Minute Walk Teston 025 6 Minute Walk Test Normal [facility] Absolute lymphocyte countOrd ered By: Joseph Torres on 02-21-2025 Lymphocytes Auto (Unsp spec) [#/Vol] 1.36 10*3/uL 0.83-4.51 [facility] Absolute neutrophil countOrd ered By: Joseph Torres on 02-21-2025 Neutrophils (Bld) [#/Vol] 6.3 10*3/uL 2.0-7.7 [facility] Anion gap in Serum or Plasma Ordered By: Joseph Torres on 02-21-2025 Anion gap [Moles/Vol] 12 mmol/L 5-15 [place] Automated lymphocyte count a s percentage of total leukocytesOrdered By: Joseph Torres on 02-21-2025 Lymphocytes/100 WBC Auto (Unsp spec) 15.8 % Low 19-41 [facility] BUN/creatinine ratioOrdered By: Joseph Torres on 02-21-2025 Urea nitrogen/Creatinine [Mass ratio] 15.8 mg/mg 10-20 [facility] Basophil percentageOrdered B y: Joseph Torres on 02-21-2025 Basophils/100 WBC (Bld) 0.6 % 0-1 [facility] Bilirubin, totalOrdered By: Joseph Torres on 02-21-2025 Bilirubin [Mass/Vol] 0.36 mg/dL 0.00-1.30 [facility] CBC W/Diff, Automatedon Absolute Lymph 1.36 X10 3/uL Normal 0.83-4.51 [facility] Comment on above: Performed By: #### L 100.0100, L500.4050, L503.6550, L101.9900, L503.6030, L501.6710, L504.2610 ####[facility] [address] [place], [address] Absolute Neut 6.3 X10 3/uL Normal 2.0-7.7 [facility] Comment on above: Performed By: #### L 100.0100, L500.4050, L503.6550, L101.9900, L503.6030, L501.6710, L504.2610 ####[facility] [address] [place], [address] Basophils/100 WBC (Bld) 0.6 % Normal 0-1 [facility] Comment on above: Performed By: #### L 100.0100, L500.4050, L503.6550, L101.9900, L503.6030, L501.6710, L504.2610 ####[facility] [address] [place], [address] Eosinophils/100 WBC (Bld) 1.7 % Normal 0-5 [facility] Comment on above: Performed By: #### L 100.0100, L500.4050, L503.6550, L101.9900, L503.6030, L501.6710, L504.2610 ####[facility] [address] [place], [address] Erythrocyte distribution width (RBC) [Ratio] 14.6 % Normal 11.6-14.6 [facility] Comment on above: Performed By: #### L 100.0100, L500.4050, L503.6550, L101.9900, L503.6030, L501.6710, L504.2610 ####[facility] [address] [place], [address] Hematocrit (Bld) [Volume fraction] 42.7 % Normal 37-47 [facility] Comment on above: Performed By: #### L 100.0100, L500.4050, L503.6550, L101.9900, L503.6030, L501.6710, L504.2610 ####[facility] [address] [place], [address] Hemoglobin (Bld) [Mass/Vol] 13.0 g/dL Normal 12.0-15.0 [facility] Comment on above: Performed By: #### L 100.0100, L500.4050, L503.6550, L101.9900, L503.6030, L501.6710, L504.2610 ####[facility] [address] [place], [address] IG% 0.500 Normal 0.0-0.9 [facility] Comment on above: Result Comment: IG% - Immature Granulocytes (promyelocytes, myelocytes andmetamyelocytes) > 1% indicates that a LEFT SHIFT is Present. Performed By: #### L 100.0100, L500.4050, L503.6550, L101.9900, L503.6030, L501.6710, L504.2610 ####[facility] [address] [place], [address] Lymphocytes/100 WBC (Bld) 15.8 % Low 19-41 [facility] Comment on above: Performed By: #### L 100.0100, L500.4050, L503.6550, L101.9900, L503.6030, L501.6710, L504.2610 ####[facility] [address] [place], [address] MCH (RBC) [Entitic mass] 27.4 pg Normal 27.0-32.0 [facility] Comment on above: Performed By: #### L 100.0100, L500.4050, L503.6550, L101.9900, L503.6030, L501.6710, L504.2610 ####[facility] [address] [place], [address] MCHC (RBC) [Mass/Vol] 30.4 g/dL Low 32-36 [place] Comment on above: Performed By: #### L 100.0100, L500.4050, L503.6550, L101.9900, L503.6030, L501.6710, L504.2610 ####[facility] [address] [place], [address] MCV (RBC) [Entitic vol] 89.9 fL Normal 81-99 [facility] Comment on above: Performed By: #### L 100.0100, L500.4050, L503.6550, L101.9900, L503.6030, L501.6710, L504.2610 ####[facility] [address] [place], [address] Monocytes/100 WBC (Bld) 8.5 % Normal 0-10 [facility] Comment on above: Performed By: #### L 100.0100, L500.4050, L503.6550, L101.9900, L503.6030, L501.6710, L504.2610 ####[facility] [address] [place], [address] Neutrophils/100 WBC (Bld) 72.9 % High 47-70 [facility] Comment on above: Performed By: #### L 100.0100, L500.4050, L503.6550, L101.9900, L503.6030, L501.6710, L504.2610 ####[facility] [address] [place], [address] Nucleated RBC (Bld) [#/Vol] 0 10*3/uL Normal 0-5 [facility] Comment on above: Performed By: #### L 100.0100, L500.4050, L503.6550, L101.9900, L503.6030, L501.6710, L504.2610 ####[facility] [address] [place], [address] Platelet mean volume (Bld) [Entitic vol] 9.9 fL Normal 6.2-12.0 [facility] Comment on above: Performed By: #### L 100.0100, L500.4050, L503.6550, L101.9900, L503.6030, L501.6710, L504.2610 ####[facility] [address] [place], [address] Platelets (Bld) [#/Vol] 277 10*3/uL Normal 150-450 [facility] Comment on above: Performed By: #### L 100.0100, L500.4050, L503.6550, L101.9900, L503.6030, L501.6710, L504.2610 ####[facility] [address] [place], [address] RBC (Bld) [#/Vol] 4.75 10*6/uL Normal 4.2-5.4 [facility] Comment on above: Performed By: #### L 100.0100, L500.4050, L503.6550, L101.9900, L503.6030, L501.6710, L504.2610 ####[facility] [address] [place], [place], [id number] RDW SD 47.8 fl High 35.1-43.9 [facility] Comment on above: Performed By: #### L 100.0100, L500.4050, L503.6550, L101.9900, L503.6030, L501.6710, L504.2610 ####[facility] [address] [place], [address] WBC (Bld) [#/Vol] 8.6 10*3/uL Normal 4.4-11.0 [facility] Comment on above: Performed By: #### L 100.0100, L500.4050, L503.6550, L101.9900, L503.6030, L501.6710, L504.2610 ####[facility] [address] [place], [address] CRPon 02-21-2025 C-REACTIVE PROT < 3.00 Normal 0.0-3.0 [facility] Comment on above: Performed By: #### L 100.0100, L500.4050, L503.6550, L101.9900, L503.6030, L501.6710, L504.2610 ####[facility] [address] [place], [place], [id number] CRP [Mass/Vol]Ordered By: Romi Torres on 02-21-2025 C-Reactive Protein Extended Range < 3.00 mg/L 0.0-3.0 [facility] Calculated total iron bindin g capacityOrdered By: Joseph Torres on 02-21-2025 Total Iron Binding Capacity 342 ug/dL 250-450 [facility] Carbon dioxide, total [Moles /volume] in Central venous bloodOrdered By: Joseph Torres on 02-21-2025 CO2 [Moles/Vol] 29.9 mmol/L 21.0-32.0 [facility] Chloride assayOrdered By: Romi Torres on 02-21-2025 Chloride [Moles/Vol] 100 mmol/L 98-108 [facility] Comprehensive Metabolic Prof ilon 02-21-2025 Albumin [Mass/Vol] 4.3 g/dL Normal 3.4-4.8 [facility] Comment on above: Performed By: #### L 100.0100, L500.4050, L503.6550, L101.9900, L503.6030, L501.6710, L504.2610 ####[facility] [address] [place], [address] Albumin/Globulin [Mass ratio] 1.5 {ratio} Normal 0.9-2.4 [facility] Comment on above: Performed By: #### L 100.0100, L500.4050, L503.6550, L101.9900, L503.6030, L501.6710, L504.2610 ####[facility] [address] [place], [address] ALK PHOS 68 U/L Normal 35-104 [facility] Comment on above: Performed By: #### L 100.0100, L500.4050, L503.6550, L101.9900, L503.6030, L501.6710, L504.2610 ####[facility] [address] [place], [address] ALT [Catalytic activity/Vol] 10 U/L Normal <=34 [facility] Comment on above: Performed By: #### L 100.0100, L500.4050, L503.6550, L101.9900, L503.6030, L501.6710, L504.2610 ####[facility] [address] [place], [address] AST [Catalytic activity/Vol] 14 U/L Normal <=31 [facility] Comment on above: Performed By: #### L 100.0100, L500.4050, L503.6550, L101.9900, L503.6030, L501.6710, L504.2610 ####[facility] [address] [place], [address] Bilirubin [Mass/Vol] 0.36 mg/dL Normal 0.00-1.30 [facility] Comment on above: Performed By: #### L 100.0100, L500.4050, L503.6550, L101.9900, L503.6030, L501.6710, L504.2610 ####[facility] [address] [place], [address] BUN/CRE 15.8 RATIO Normal 10-20 [facility] Comment on above: Performed By: #### L 100.0100, L500.4050, L503.6550, L101.9900, L503.6030, L501.6710, L504.2610 ####[facility] [address] [place], [address] Calcium [Mass/Vol] 9.4 mg/dL Normal 7.6-11.0 [facility] Comment on above: Performed By: #### L 100.0100, L500.4050, L503.6550, L101.9900, L503.6030, L501.6710, L504.2610 ####[facility] [address] [place], [address] Chloride [Moles/Vol] 100 mmol/L Normal 98-108 [facility] Comment on above: Performed By: #### L 100.0100, L500.4050, L503.6550, L101.9900, L503.6030, L501.6710, L504.2610 ####[facility] [address] [place], [address] CO2 [Moles/Vol] 29.9 mmol/L Normal 21.0-32.0 [facility] Comment on above: Performed By: #### L 100.0100, L500.4050, L503.6550, L101.9900, L503.6030, L501.6710, L504.2610 ####[facility] [address] [place], [address] Creatinine [Mass/Vol] 0.64 mg/dL Low 0.70-1.20 [place] Comment on above: Performed By: #### L 100.0100, L500.4050, L503.6550, L101.9900, L503.6030, L501.6710, L504.2610 ####[facility] [address] [place], [place], [phone] ECRCL 68.84 ml/min Normal 50-250 [facility] Comment on above: Performed By: #### L 100.0100, L500.4050, L503.6550, L101.9900, L503.6030, L501.6710, L504.2610 ####[facility] [address] [place], [address] GAP 12 Normal 5-15 [facility] Comment on above: Performed By: #### L 100.0100, L500.4050, L503.6550, L101.9900, L503.6030, L501.6710, L504.2610 ####[facility] [address] [place], [address] GFR/1.73 sq M.predicted among non-blacks MDRD (S/P/Bld) [Vol rate/Area] 97 mL/min/{1.73_m2} Normal >60 [facility] Comment on above: Result Comment: mL/m in/1.73m2 CKD-EPI Creatinine Equation (2020) Performed By: #### L 100.0100, L500.4050, L503.6550, L101.9900, L503.6030, L501.6710, L504.2610 ####[facility] [address] [place], [address] Globulin (S) [Mass/Vol] 2.8 g/dL Normal 2.2-4.2 [facility] Comment on above: Performed By: #### L 100.0100, L500.4050, L503.6550, L101.9900, L503.6030, L501.6710, L504.2610 ####[facility] [address] [place], [address] Glucose [Mass/Vol] 88 mg/dL Normal 70-99 [facility] Comment on above: Performed By: #### L 100.0100, L500.4050, L503.6550, L101.9900, L503.6030, L501.6710, L504.2610 ####[facility] [address] [place], [address] Potassium [Moles/Vol] 3.9 mmol/L Normal 3.3-5.1 [place] Comment on above: Performed By: #### L 100.0100, L500.4050, L503.6550, L101.9900, L503.6030, L501.6710, L504.2610 ####[facility] [address] [place], [address] Sodium [Moles/Vol] 142 mmol/L Normal 133-145 [facility] Comment on above: Performed By: #### L 100.0100, L500.4050, L503.6550, L101.9900, L503.6030, L501.6710, L504.2610 ####[facility] [address] [place], [address] T PROT 7.0 g/dL Normal 5.9-8.4 [facility] Comment on above: Performed By: #### L 100.0100, L500.4050, L503.6550, L101.9900, L503.6030, L501.6710, L504.2610 ####[facility] [address] [place], [address] Urea nitrogen [Mass/Vol] 10 mg/dL Normal 4-19 [facility] Comment on above: Performed By: #### L 100.0100, L500.4050, L503.6550, L101.9900, L503.6030, L501.6710, L504.2610 ####[facility] [address] [place], [place], [phone]) Eosinophil percentageOrdered By: Joseph Torres on 02-21-2025 Eosinophils/100 WBC (Bld) 1.7 % 0-5 [facility] Erythrocyte Sed Rateon 02-21 SED RATE 19 mm/hr Normal 0-30 [facility] Comment on above: Performed By: #### L 100.0100, L500.4050, L503.6550, L101.9900, L503.6030, L501.6710, L504.2610 ####[facility] [address] [place], [place], [id number] Erythrocyte distribution wid th (RBC) [Ratio]Ordered By: Joseph Torres on 02-21-2025 Erythrocyte distribution width (RBC) [Entitic vol] 47.8 fL High 35.1-43.9 [facility] Erythrocyte distribution wid th ratioOrdered By: Joseph Torres on 02-21-2025 Erythrocyte distribution width (RBC) [Ratio] 14.6 % 11.6-14.6 [facility] Erythrocyte distribution wid th standard deviationOrdered By: Joseph Torres on 02-21-2025 Erythrocyte distribution width (RBC) [Ratio] 47.8 fl High 35.1-43.9 [facility] Erythrocyte sedimentation ra teOrdered By: Joseph Torres on 02-21-2025 ESR (Bld) [Velocity] 19 mm/h 0-30 [facility] Estimation of creatinine urban aranceOrdered By: Joseph Torres on 02-21-2025 Estimated Creatinine Clearance Calc 68.84 ml/min 50-250 [facility] Ferritinon 02-21-2025 Ferritin [Mass/Vol] 48 ng/mL Normal 22-378 [facility] Comment on above: Performed By: #### L 100.0100, L500.4050, L503.6550, L101.9900, L503.6030, L501.6710, L504.2610 ####[facility] [address] [place], [place], [id number] GFR/1.73 sq M.predicted yudy g non-blacks MDRD (S/P/Bld) [Vol rate/Area]Ordered By: Joseph Torres on 02-21-2025 Estimated GFR (MDRD) Non-Af Amer 97 >60 [facility] Comment on above: mL/min/1.73m2 CKD-EP I Creatinine Equation (2020) Glomerular filtration rate ( GFR) estimation/1.73 sq m using serum, plasma, or whole bOrdered By: Joseph Torres on 02-21-2025 GFR/1.73 sq M.predicted among non-blacks MDRD (S/P/Bld) [Vol rate/Area] 97 mL/min/{1.73_m2} >60 [facility] Comment on above: mL/min/1.73m2 CKD-EP I Creatinine Equation (2020) Hematocrit Auto (Bld) [Volum e fraction]Ordered By: Joseph Torres on 02-21-2025 Hematocrit (Bld) [Volume fraction] 42.7 % 37-47 [facility] Hemoglobin measurementOrdere d By: Joseph Torres on 02-21-2025 Hemoglobin (Bld) [Mass/Vol] 13.0 g/dL 12.0-15.0 [facility] Immature granulocytes/100 WB C Auto (Bld)Ordered By: Joseph Torres on 02-21-2025 Immature granulocytes/100 WBC (Bld) 0.500 % 0.0-0.9 [facility] Comment on above: IG% - Immature Granu locytes (promyelocytes, myelocytes and metamyelocytes) > 1% indicates that a LEFT SHIFT is Present. Iron (Unsp spec) [Mass/Mass] Ordered By: Joseph Torres on 02-21-2025 Iron [Mass/Vol] 70 ug/dL 50-170 [facility] Iron measurement (mass/mass) Ordered By: Joseph Torres on 02-21-2025 Iron (Unsp spec) [Mass/Mass] 70 ug/dL 50-170 [facility] Iron saturation [Mass fracti on]Ordered By: Joseph Torres on 02-21-2025 Iron Saturation 20.5 % 13-59 [facility] Comment on above: Previous reported re sult: 21.0 %Edited by: RICARDO on 02/21/25:1416 AMENDED REPORT 02/21/25 1416 IRON SATURATION previously reported as: 21.0 % Iron+Iron Binding Capacityon 02-21-2025 Iron [Mass/Vol] 70 ug/dL Normal 50-170 [facility] Comment on above: Performed By: #### L 100.0100, L500.4050, L503.6550, L101.9900, L503.6030, L501.6710, L504.2610 ####[facility] [address] [facility] [address] UIBC 272 ug/dL Normal 228-428 [facility] Comment on above: Performed By: #### L 100.0100, L500.4050, L503.6550, L101.9900, L503.6030, L501.6710, L504.2610 ####[facility] [address] [place], [address] LDHon 02-21-2025 LDH 141 U/L Normal 84-246 [facility] Comment on above: Order Comment: 1 Performed By: #### L 100.0100, L500.4050, L503.6550, L101.9900, L503.6030, L501.6710, L504.2610 ####[facility] [address] [place], [address] Laboratory - Chemistry and C hemistry - challengeOrdered By: Joseph Torres on 02-21-2025 AST [Catalytic activity/Vol] 14 U/L <32 [facility] Lactate dehydrogenase (LDH) measurementOrdered By: Joseph Torres on 02-21-2025 LDH [Catalytic activity/Vol] 141 U/L 84-246 [facility] Lymphocytes Auto (Unsp spec) [#/Vol]Ordered By: Joseph Torres on 02-21-2025 Lymphocytes (Bld) [#/Vol] 1.36 10*3/uL 0.83-4.5 1 [facility] Lymphocytes/100 WBC Auto (Un sp spec)Ordered By: Joseph Torres on 02-21-2025 Lymphocytes/100 WBC (Bld) 15.8 % Low 19-41 [facility] MCV (mean corpuscular volume ) determinationOrdered By: Joseph Torres on 02-21-2025 MCV (RBC) [Entitic vol] 89.9 fL 81-99 [facility] Mean corpuscular hemoglobin (MCH) determinationOrdered By: [facility] 02-[facility]-2025 MCH (RBC) [Entitic mass] 27.4 pg 27.0-32.0 [facility] Mean corpuscular hemoglobin concentration (MCHC) determinationOrdered By: Joseph Torres on 02-21-2025 MCHC (RBC) [Mass/Vol] 30.4 g/dL Low 32-36 [place] Mean platelet volume determi nationOrdered By: Joseph Torres on 02-21-2025 Platelet mean volume (Bld) [Entitic vol] 9.9 fL 6.2-12.0 [facility] Monocyte percentageOrdered B y: Joseph Torres on 02-21-2025 Monocytes/100 WBC (Bld) 8.5 % 0-10 [facility] Neutrophil percentageOrdered By: Joseph Torres on 02-21-2025 Neutrophils/100 WBC (Bld) 72.9 % High 47-70 [facility] No Panel InformationOrdered By: Joseph Torres on 02-21-2025 Unsaturated Iron Binding Capacity 272 ug/dL 228-428 [facility] Nucleated red blood cell per centageOrdered By: Joseph Torres on 02-21-2025 Nucleated RBC/100 WBC (Bld) [Ratio] 0 % 0-5 [facility] Oncology Visit Reporton 04-0 Oncology Visit Report Normal [place] Platelet countOrdered By: Romi Torres on 02-21-2025 Platelets (Bld) [#/Vol] 277 10*3/uL 150-450 [facility] Potassium (Unsp spec) [Mass/ Vol]Ordered By: Joseph Torres on 02-21-2025 Potassium [Moles/Vol] 3.9 mmol/L 3.3-5.1 [place] Potassium measurement (mass/ volume)Ordered By: Joseph Torres on 02-21-2025 Potassium (Unsp spec) [Mass/Vol] 3.9 mmol/L 3.3-5.1 [facility] RBC Auto (Bld) [#/Vol]Ordere d By: Joseph Torres on 02-21-2025 RBC (Bld) [#/Vol] 4.75 10*6/uL 4.2-5.4 [facility] Serum creatinine measurement (mass/volume)Ordered By: Joseph Torres on 02-21-2025 Creatinine [Mass/Vol] 0.64 mg/dL Low 0.70-1.20 [place] Serum globulin measurementOr dered By: Joseph Torres on 02-21-2025 Globulin (S) [Mass/Vol] 2.8 g/dL 2.2-4.2 [facility] Serum glucose measurement (m ass/volume)Ordered By: Joseph Torres on 02-21-2025 Glucose [Mass/Vol] 88 mg/dL 70-99 [facility] Serum or plasma C reactive p rotein measurement (mass/volume)Ordered By: Joseph Torres on 02-21-2025 CRP [Mass/Vol] mg/L 0.0-3.0 [facility] Serum or plasma alanine marley otransferase (ALT) measurementOrdered By: Joseph Torres on 02-21-2025 ALT [Catalytic activity/Vol] 10 U/L <35 [facility] Serum or plasma albumin rosa urement (mass/volume)Ordered By: Joseph Torres on 02-21-2025 Albumin [Mass/Vol] 4.3 g/dL 3.4-4.8 [facility] Serum or plasma albumin/glob ulin mass ratioOrdered By: Joseph Torres on 02-21-2025 Albumin/Globulin [Mass ratio] 1.5 {ratio} 0.9-2.4 [facility] Serum or plasma alkaline yosvany sphatase measurementOrdered By: Joseph Torres on 02-21-2025 ALP [Catalytic activity/Vol] 68 U/L 35-104 [facility] Serum or plasma calcium rosa urement (mass/volume)Ordered By: Joseph Torres on 02-21-2025 Calcium [Mass/Vol] 9.4 mg/dL 7.6-11.0 [facility] Serum or plasma ferritin xena surement (mass/volume)Ordered By: Joseph Torres on 02-21-2025 Ferritin [Mass/Vol] 48 ng/mL 22-378 [facility] Serum or plasma iron saturat ion measurement (mass fraction)Ordered By: Joseph Torres on 02-21-2025 Iron saturation [Mass fraction] 20.5 % 13-59 [facility] Comment on above: Previous reported re sult: 21.0 %Edited by: RICARDO on 02/21/25:1416 AMENDED REPORT 02/21/25 1416 IRON SATURATION previously reported as: 21.0 % Serum or plasma urea nitroge n measurement (mass/volume)Ordered By: Joseph Torres on 02-21-2025 Urea nitrogen [Mass/Vol] 10 mg/dL 4-19 [facility] Sodium levelOrdered By: Gary Torres on 02-21-2025 Sodium [Moles/Vol] 142 mmol/L 133-145 [facility] Total proteinOrdered By: Elliot Torres on 02-21-2025 Protein [Mass/Vol] 7.0 g/dL 5.9-8.4 [facility] White blood cell (WBC) count Ordered By: Joseph Torres on 02-21-2025 WBC (Bld) [#/Vol] 8.6 10*3/uL 4.4-11.0 [facility] Arterial study reportOrdered By: Selvin Frost on 02-20-2025 Noninvasive arteriosclerosis study report [facility] [address] [place] [address] Lower Ext Art Exam w/ Exercise 02/20/25 1055 MR#: [id number] Acct: [id number] Name: BRENDA MACEDO Rep #:[id number] : 1955 69 From: Selvin Roberts Attending Dr: MAO Brown Stat us: REG CLI Ordering Dr: Katie Retana Date: Location: [facility] Sex: F C Admitted: Reason For Study [...] and post exercise ALEIDA inthe moderate category. ___ Ordering Physician: Katie Retana Referring Physician: Carline Ashley Performed By: Rosenda Gomez RDCS/RVT 02/20/251931 Date _ Selvin Frost MD CC: CATH LABORATORY TECHNICIAN-C Carline Ashley; MAO Brown ~ Date Dictated: 02/20/251054 Date Transcribed: 02/20/251931 Graphic Coordinator: Signed [facility] Work Phone: Lower Ext Art Exam w/ Exerci river 02-20-2025 Lower Ext Art Exam w/ Exercise Normal [facility] Absolute lymphocyte countOrd ered By: Tamar Lacey on 02-15-2025 Lymphocytes Auto (Unsp spec) [#/Vol] 1.83 10*3/uL 0.83-4.51 [facility] Absolute neutrophil countOrd ered By: Tamarwade Lacey on 02-15-2025 Neutrophils (Bld) [#/Vol] 4.3 10*3/uL 2.0-7.7 [facility] Automated lymphocyte count a s percentage of total leukocytesOrdered By: Tamar Lacey on 02-15-2025 Lymphocytes/100 WBC Auto (Unsp spec) 26.1 % 19-41 [facility] Basophil percentageOrdered B y: Tamar Lacey on 02-15-2025 Basophils/100 WBC (Bld) 0.6 % 0-1 [facility] CBC W/Diff, Automatedon Absolute Lymph 1.83 X10 3/uL Normal 0.83-4.51 [facility] Comment on above: Performed By: #### L 100.0100 ####[facility] [address] [place], [address] Absolute Neut 4.3 X10 3/uL Normal 2.0-7.7 [facility] Comment on above: Performed By: #### L 100.0100 ####[facility] [address] [place], [address] Basophils/100 WBC (Bld) 0.6 % Normal 0-1 [facility] Comment on above: Performed By: #### L 100.0100 ####[facility] [address] [place], [address] Eosinophils/100 WBC (Bld) 2.1 % Normal 0-5 [facility] Comment on above: Performed By: #### L 100.0100 ####[facility] [address] [place], [address] Erythrocyte distribution width (RBC) [Ratio] 14.5 % Normal 11.6-14.6 [facility] Comment on above: Performed By: #### L 100.0100 ####[facility] [address] [place], [address] Hematocrit (Bld) [Volume fraction] 41.9 % Normal 37-47 [facility] Comment on above: Performed By: #### L 100.0100 ####[facility] [address] [place], [address] Hemoglobin (Bld) [Mass/Vol] 12.9 g/dL Normal 12.0-15.0 [facility] Comment on above: Performed By: #### L 100.0100 ####[facility] [address] [place], [address] IG% 0.600 Normal 0.0-0.9 [facility] Comment on above: Result Comment: IG% - Immature Granulocytes (promyelocytes, myelocytes andmetamyelocytes) > 1% indicates that a LEFT SHIFT is Present. Performed By: #### L 100.0100 ####[facility] [address] [place], [address] Lymphocytes/100 WBC (Bld) 26.1 % Normal 19-41 [facility] Comment on above: Performed By: #### L 100.0100 ####[facility] [address] [place], [address] MCH (RBC) [Entitic mass] 27.4 pg Normal 27.0-32.0 [facility] Comment on above: Performed By: #### L 100.0100 ####[facility] [address] [place], [address] MCHC (RBC) [Mass/Vol] 30.8 g/dL Low 32-36 [place] Comment on above: Performed By: #### L 100.0100 ####[facility] [address] [place], [address] MCV (RBC) [Entitic vol] 89.0 fL Normal 81-99 [facility] Comment on above: Performed By: #### L 100.0100 ####[facility] [address] [place], [address] Monocytes/100 WBC (Bld) 10.0 % Normal 0-10 [facility] Comment on above: Performed By: #### L 100.0100 ####[facility] [address] [place], [address] Neutrophils/100 WBC (Bld) 60.6 % Normal 47-70 [facility] Comment on above: Performed By: #### L 100.0100 ####[facility] [address] [place], [address] Nucleated RBC (Bld) [#/Vol] 0 10*3/uL Normal 0-5 [facility] Comment on above: Performed By: #### L 100.0100 ####[facility] [address] [place], [address] Platelet mean volume (Bld) [Entitic vol] 10.0 fL Normal 6.2-12.0 [facility] Comment on above: Performed By: #### L 100.0100 ####[facility] [address] [place], [address] Platelets (Bld) [#/Vol] 292 10*3/uL Normal 150-450 [facility] [facility] Comment on above: Performed By: #### L 100.0100 ####[facility] [address] [place], [address] RBC (Bld) [#/Vol] 4.71 10*6/uL Normal 4.2-5.4 [facility] Comment on above: Performed By: #### L 100.0100 ####[facility] [address] [place], [address] RDW SD 47.5 fl High 35.1-43.9 [facility] Comment on above: Performed By: #### L 100.0100 ####[facility] [address] [place], [address] WBC (Bld) [#/Vol] 7.0 10*3/uL Normal 4.4-11.0 [facility] Comment on above: Performed By: #### L 100.0100 ####[facility] [address] [place], [address] Eosinophil percentageOrdered By: Tamar Lacey on 02-15-2025 Eosinophils/100 WBC (Bld) 2.1 % 0-5 [facility] Erythrocyte distribution wid th (RBC) [Ratio]Ordered By: Tamar Lacey on 02-15-2025 Erythrocyte distribution width (RBC) [Entitic vol] 47.5 fL High 35.1-43.9 [facility] Erythrocyte distribution wid th ratioOrdered By: Tamar Lacey on 02-15-2025 Erythrocyte distribution width (RBC) [Ratio] 14.5 % 11.6-14.6 [facility] Erythrocyte distribution wid th standard deviationOrdered By: Tamar Lacey on 02-15-2025 Erythrocyte distribution width (RBC) [Ratio] 47.5 fl High 35.1-43.9 [facility] Gastroenterology Visit Repor ton 02-15-2025 Gastroenterology Visit Report Normal [facility] Hematocrit Auto (Bld) [Volum e fraction]Ordered By: Tamar Lacey on 02-15-2025 Hematocrit (Bld) [Volume fraction] 41.9 % 37-47 [facility] Hemoglobin measurementOrdere d By: Tamar Lacey on 02-15-2025 Hemoglobin (Bld) [Mass/Vol] 12.9 g/dL 12.0-15.0 [facility] Immature granulocytes/100 WB C Auto (Bld)Ordered By: Tamar Lacey on 02-15-2025 Immature granulocytes/100 WBC (Bld) 0.600 % 0.0-0.9 [facility] Comment on above: IG% - Immature Granu locytes (promyelocytes, myelocytes and metamyelocytes) > 1% indicates that a LEFT SHIFT is Present. Lymphocytes Auto (Unsp spec) [#/Vol]Ordered By: Tamar Lacey on 02-15-2025 Lymphocytes (Bld) [#/Vol] 1.83 10*3/uL 0.83-4.5 1 [facility] Lymphocytes/100 WBC Auto (Un sp spec)Ordered By: Tamar Lacey on 02-15-2025 Lymphocytes/100 WBC (Bld) 26.1 % 19-41 [facility] MCV (mean corpuscular volume ) determinationOrdered By: Tamar Lacey on 02-15-2025 MCV (RBC) [Entitic vol] 89.0 fL 81-99 [facility] Mean corpuscular hemoglobin (MCH) determinationOrdered By: Tamar Lacey on 02-15-2025 MCH (RBC) [Entitic mass] 27.4 pg 27.0-32.0 [facility] Mean corpuscular hemoglobin concentration (MCHC) determinationOrdered By: Tamar Lacey on 02-15-2025 MCHC (RBC) [Mass/Vol] 30.8 g/dL Low 32-36 [place] Mean platelet volume determi nationOrdered By: Tamar Lacey on 02-15-2025 Platelet mean volume (Bld) [Entitic vol] 10.0 fL 6.2-12.0 [facility] Monocyte percentageOrdered B y: Tamar Lacey on 02-15-2025 Monocytes/100 WBC (Bld) 10.0 % 0-10 [facility] Neutrophil percentageOrdered By: Tamar Lacey on 02-15-2025 Neutrophils/100 WBC (Bld) 60.6 % 47-70 [facility] Nucleated red blood cell per centageOrdered By: Tamar Lacey on 02-15-2025 Nucleated RBC/100 WBC (Bld) [Ratio] 0 % 0-5 [facility] Platelet countOrdered By: Ana Maria Lacey on 02-15-2025 Platelets (Bld) [#/Vol] 292 10*3/uL 150-450 [facility] RBC Auto (Bld) [#/Vol]Ordere d By: Tamar Lacey on 02-15-2025 RBC (Bld) [#/Vol] 4.71 10*6/uL 4.2-5.4 [facility] White blood cell (WBC) count Ordered By: Tamar Lacey on 02-15-2025 WBC (Bld) [#/Vol] 7.0 10*3/uL 4.4-11.0 [facility] Breast imaging reportOrdered By: Kenan Garvey on 01-26-2025 Study report [facility] Imaging Services [address] [place], [place] [address] SCRN MAMM (CAD)W/ANTOINE BILAT MR#: [id number] Acct: [id number] Name: BRENDA MACEDO Rep #: [id number] : 1955 F 69 From: Travis Garvey MD PCP: ANN MARIE Corona [facility] Study:SCRN MAMM (CAD)W/ANTOINE BILAT Date of Exa m: 01/26/25 Exam# [id number] Ordering Dr: Carline Ashley NP CATH LABORATORY TECHNICIAN-C PROCEDURE: SCRN MAMM (CAD)W/ANTOINE BILAT REASON FOR [...] of the results by letter. Reading Location: [id number] CC: ANN MARIE Ashley ~ Graphic Coordinator: Signed [facility] SCRN MAMM (CAD)W/ANTOINE BILATo n 01-26-2025 SCRN MAMM (CAD)W/ANTOINE BILAT Normal [facility] Pulmonary Visit Reporton Pulmonary Visit Report Normal [facility] EGD Reporton 01-04-2025 EGD Report Normal [facility] MR/POSTOP.ANEon 01-04-2025 MR/POSTOP.ANE Normal [facility] MR/[id number] 01-04-2025 MR/POSTOPAN2 Normal [facility] MR/PAT.ANEon 01-02-2025 MR/PAT.ANE Normal [facility] 31-CR-Lcjabja DOrdered By: Flex Ashley on 11-11-2024 Vitamin D 25-Hydroxy 59.1 ng/mL [facility] Comment on above: Vitamin D 25(OH) Sta tus Range Deficiency <20 ng/mL (50nmol/L) Insufficiency 20 - 30 ng/mL (50 - 75 nmol/L) Sufficiency 30 - 100 ng/mL (75 - 250 nmol/L) Toxicity >100 ng/mL (>250 nmol/L) Albumin to globulin ratioOrd ered By: Carline Ashley on 11-11-2024 Albumin/Globulin [Mass ratio] 1.1 {ratio} 0.9-2.4 [facility] Bilirubin, totalOrdered By: Carline Ashley on 11-11-2024 Bilirubin [Mass/Vol] 0.50 mg/dL 0.20-1.00 [facility] Comment on above: For patients on eltr ombopag therapy, use of Dimension [place] TBIL is not recommended. Blood urea nitrogen (BUN)/cr eatinine ratioOrdered By: Carline Ashley on 11-11-2024 Urea nitrogen/Creatinine [Mass ratio] 16.4 mg/mg 10-20 [facility] CBC-Complete Blood Cnt No Di ffon 11-11-2024 Erythrocyte distribution width (RBC) [Ratio] 14.0 % Normal 11.6-14.6 [facility] Comment on above: Performed By: #### L 100.0500, L500.4050, L509.1000, L503.6030, L502.0250, L506.1000, L500.4100, L100.9950 ####[facility] [address] [place], [address] Hematocrit (Bld) [Volume fraction] 43.7 % Normal 37-47 [facility] Comment on above: Performed By: #### L 100.0500, L500.4050, L509.1000, L503.6030, L502.0250, L506.1000, L500.4100, L100.9950 ####[facility] [address] [place], [address] Hemoglobin (Bld) [Mass/Vol] 13.4 g/dL Normal 12.0-15.0 [facility] Comment on above: Performed By: #### L 100.0500, L500.4050, L509.1000, L503.6030, L502.0250, L506.1000, L500.4100, L100.9950 ####[facility] [address] [place], [address] MCH (RBC) [Entitic mass] 26.8 pg Low 27.0-32.0 [facility] Comment on above: Performed By: #### L 100.0500, L500.4050, L509.1000, L503.6030, L502.0250, L506.1000, L500.4100, L100.9950 ####[facility] [address] [place], [address] MCHC (RBC) [Mass/Vol] 30.7 g/dL Low 32-36 [place] Comment on above: Performed By: #### L 100.0500, L500.4050, L509.1000, L503.6030, L502.0250, L506.1000, L500.4100, L100.9950 ####[facility] [address] [place], [address] MCV (RBC) [Entitic vol] 87.4 fL Normal 81-99 [facility] Comment on above: Performed By: #### L 100.0500, L500.4050, L509.1000, L503.6030, L502.0250, L506.1000, L500.4100, L100.9950 ####[facility] [address] [place], [address] Platelet mean volume (Bld) [Entitic vol] 9.8 fL Normal 6.2-12.0 [facility] Comment on above: Performed By: #### L 100.0500, L500.4050, L509.1000, L503.6030, L502.0250, L506.1000, L500.4100, L100.9950 ####[facility] [address] [place], [address] Platelets (Bld) [#/Vol] 268 10*3/uL Normal 150-450 [facility] Comment on above: Performed By: #### L 100.0500, L500.4050, L509.1000, L503.6030, L502.0250, L506.1000, L500.4100, L100.9950 ####[facility] [address] [place], [address] RBC (Bld) [#/Vol] 5.00 10*6/uL Normal 4.2-5.4 [facility] Comment on above: Performed By: #### L 100.0500, L500.4050, L509.1000, L503.6030, L502.0250, L506.1000, L500.4100, L100.9950 ####[facility] [address] [place], [place], [phone] RDW SD 43.8 fl Normal 35.1-43.9 [facility] Comment on above: Performed By: #### L 100.0500, L500.4050, L509.1000, L503.6030, L502.0250, L506.1000, L500.4100, L100.9950 ####[facility] [address] [place], [place], [phone] WBC (Bld) [#/Vol] 6.4 10*3/uL Normal 4.4-11.0 [facility] Comment on above: Performed By: #### L 100.0500, L500.4050, L509.1000, L503.6030, L502.0250, L506.1000, L500.4100, L100.9950 ####[facility] [address] [place], [place], [id number] Carbon dioxide measurementOr dered By: Carline Ashley on 11-11-2024 CO2 [Moles/Vol] 33.0 mmol/L High 21.0-32.0 [facility] Chloride measurementOrdered By: Carline Ashley on 11-11-2024 Chloride [Moles/Vol] 104 mmol/L 98-107 [facility] Comprehensive Metabolic Prof ilon 11-11-2024 Albumin [Mass/Vol] 3.8 g/dL Normal 3.2-5.0 [facility] Comment on above: Performed By: #### L 100.0500, L500.4050, L509.1000, L503.6030, L502.0250, L506.1000, L500.4100, L100.9950 ####[facility] [address] [place], [address] Albumin/Globulin [Mass ratio] 1.1 {ratio} Normal 0.9-2.4 [facility] Comment on above: Performed By: #### L 100.0500, L500.4050, L509.1000, L503.6030, L502.0250, L506.1000, L500.4100, L100.9950 ####[facility] [address] [place], [address] ALK P 68 U/L Normal 45-117 [facility] Comment on above: Performed By: #### L 100.0500, L500.4050, L509.1000, L503.6030, L502.0250, L506.1000, L500.4100, L100.9950 ####[facility] [address] [place], [address] ALT [Catalytic activity/Vol] 20 U/L Normal 13-56 [facility] Comment on above: Performed By: #### L 100.0500, L500.4050, L509.1000, L503.6030, L502.0250, L506.1000, L500.4100, L100.9950 ####[facility] [address] [place], [address] AST [Catalytic activity/Vol] 10 U/L Low 15-37 [facility] Comment on above: Performed By: #### L 100.0500, L500.4050, L509.1000, L503.6030, L502.0250, L506.1000, L500.4100, L100.9950 ####[facility] [address] [place], [address] Bilirubin [Mass/Vol] 0.50 mg/dL Normal 0.20-1.00 [facility] Comment on above: Result Comment: For patients on eltrombopag therapy, use of Dimension [place] TBIL is not recommended. Performed By: #### L 100.0500, L500.4050, L509.1000, L503.6030, L502.0250, L506.1000, L500.4100, L100.9950 ####[facility] [address] [place], [address] BUN/CRE 16.4 RATIO Normal 10-20 [facility] Comment on above: Performed By: #### L 100.0500, L500.4050, L509.1000, L503.6030, L502.0250, L506.1000, L500.4100, L100.9950 ####[facility] [address] [place], [address] CA,Total 9.5 mg/dL Normal 8.5-10.1 [facility] Comment on above: Performed By: #### L 100.0500, L500.4050, L509.1000, L503.6030, L502.0250, L506.1000, L500.4100, L100.9950 ####[facility] [address] [place], [address] Chloride [Moles/Vol] 104 mmol/L Normal 98-107 [facility] Comment on above: Performed By: #### L 100.0500, L500.4050, L509.1000, L503.6030, L502.0250, L506.1000, L500.4100, L100.9950 ####[facility] [address] [place], [address] CO2 [Moles/Vol] 33.0 mmol/L High 21.0-32.0 [facility] Comment on above: Performed By: #### L 100.0500, L500.4050, L509.1000, L503.6030, L502.0250, L506.1000, L500.4100, L100.9950 ####[facility] [address] [place], [address] Creatinine [Mass/Vol] 0.73 mg/dL Normal 0.55-1.02 [place] Comment on above: Result Comment: The validity of the calculated GFR GFRAA in patients over70 years has not been determined. Clinical correlation isessential. Performed By: #### L 100.0500, L500.4050, L509.1000, L503.6030, L502.0250, L506.1000, L500.4100, L100.9950 ####[facility] [address] [place], [address] EST GFR - AA 102 mL/min Normal >60 [facility] Comment on above: Result Comment: Afri can Ivorian GFR Calc Performed By: #### L 100.0500, L500.4050, L509.1000, L503.6030, L502.0250, L506.1000, L500.4100, L100.9950 ####[facility] [address] [place], [place], [id number] GAP 2 Low 5-15 [facility] Comment on above: Performed By: #### L 100.0500, L500.4050, L509.1000, L503.6030, L502.0250, L506.1000, L500.4100, L100.9950 ####[facility] [address] [place], [address] GFR/1.73 sq M.predicted among non-blacks MDRD (S/P/Bld) [Vol rate/Area] 84 mL/min/{1.73_m2} Normal >60 [facility] Comment on above: Result Comment: Non- GFR Calc Performed By: #### L 100.0500, L500.4050, L509.1000, L503.6030, L502.0250, L506.1000, L500.4100, L100.9950 ####[facility] [address] [place], [address] Globulin (S) [Mass/Vol] 3.6 g/dL Normal 2.2-4.2 [facility] Comment on above: Performed By: #### L 100.0500, L500.4050, L509.1000, L503.6030, L502.0250, L506.1000, L500.4100, L100.9950 ####[facility] [address] [place], [address] Glucose [Mass/Vol] 97 mg/dL Normal 74-106 [facility] Comment on above: Performed By: #### L 100.0500, L500.4050, L509.1000, L503.6030, L502.0250, L506.1000, L500.4100, L100.9950 ####[facility] [address] [place], [address] Potassium [Moles/Vol] 3.7 mmol/L Normal 3.5-5.1 [place] Comment on above: Performed By: #### L 100.0500, L500.4050, L509.1000, L503.6030, L502.0250, L506.1000, L500.4100, L100.9950 ####[facility] [address] [place], [address] Sodium [Moles/Vol] 139 mmol/L Normal 136-145 [facility] Comment on above: Performed By: #### L 100.0500, L500.4050, L509.1000, L503.6030, L502.0250, L506.1000, L500.4100, L100.9950 ####[facility] [address] [place], [address] T PROT 7.4 g/dL Normal 6.4-8.2 [facility] Comment on above: Performed By: #### L 100.0500, L500.4050, L509.1000, L503.6030, L502.0250, L506.1000, L500.4100, L100.9950 ####[facility] [address] [place], [place], [address] Urea nitrogen [Mass/Vol] 12 mg/dL Normal 7-18 [facility] Comment on above: Performed By: #### L 100.0500, L500.4050, L509.1000, L503.6030, L502.0250, L506.1000, L500.4100, L100.9950 ####[facility] [address] [place], [place], [id number] Erythrocyte distribution wid th ratioOrdered By: Carline Ashley on 11-11-2024 Erythrocyte distribution width (RBC) [Ratio] 14.0 % 11.6-14.6 [facility] Erythrocyte distribution wid th standard deviationOrdered By: Carline Ahsley on 11-11-2024 Erythrocyte distribution width (RBC) [Entitic vol] 43.8 fL 35.1-43.9 [facility] Estimated glomerular filtrat ion rate (GFR) AmericanOrdered By: Carline Ashley on 11-11-2024 Estimated GFR (MDRD) Amer 102 mL/min >60 [facility] Comment on above: GFR Calc Glomerular filtration rate ( GFR) estimationOrdered By: Carline Ashley on 11-11-2024 Estimated GFR (MDRD) Non-Af Amer 84 mL/min >60 [facility] Comment on above: Non- GFR Calc Glucose measurementOrdered B y: Carline Ashley on 11-11-2024 Glucose [Mass/Vol] 97 mg/dL 74-106 [facility] Hematocrit Auto (Bld) [Volum e fraction]Ordered By: Carline Ashley on 11-11-2024 Hematocrit (Bld) [Volume fraction] 43.7 % 37-47 [facility] Hemoglobin (Reticulocytes) [ Entitic mass]Ordered By: Carline Ashley on 11-11-2024 Reticulocyte Hemoglobin Equivalent 30.0 pg 30-35 [facility] Hemoglobin measurementOrdere d By: Carline Ashley on 11-11-2024 Hemoglobin (Bld) [Mass/Vol] 13.4 g/dL 12.0-15.0 [facility] High density lipoprotein (HD L) measurementOrdered By: Carline Ashley on 11-11-2024 Cholesterol in HDL [Mass/Vol] 52 mg/dL >40 [facility] Comment on above: The drugs N-Acetylcy steine and Metamizole may falsely depress this assay. Reference Range HDL <40 mg/dL Low HDL Cholesterol HDL >or= 60 mg/dL High HDL Cholesterol Immature reticulocyte fracti onOrdered By: Carline Ashley on 11-11-2024 Immature Reticulocyte Fraction 8.20 % 3.00-15.90 [facility] Intact parathyroid hormone ( iPTH) measurementOrdered By: Carline Ashley on 11-11-2024 Parathyroid Hormone (Intact) 109.8 pg/mL High 18.4-80.1 [facility] Iron (Unsp spec) [Mass/Mass] Ordered By: Carline Ashley on 11-11-2024 Iron [Mass/Vol] 89 ug/dL 50-170 [facility] Iron saturation [Mass fracti on]Ordered By: Carline Ashley on 11-11-2024 Iron Saturation 27.9 % 15.0-55.0 [facility] Iron+Iron Binding Capacityon 11-11-2024 Iron [Mass/Vol] 89 ug/dL Normal 50-170 [facility] Comment on above: Performed By: #### L 100.0500, L500.4050, L509.1000, L503.6030, L502.0250, L506.1000, L500.4100, L100.9950 ####[facility] [address] [place], [place], [id number] IRON SATURATION 27.9 Normal 15.0-55.0 [facility] Comment on above: Performed By: #### L 100.0500, L500.4050, L509.1000, L503.6030, L502.0250, L506.1000, L500.4100, L100.9950 ####[facility] [address] [place], [address] TIBC 319 ug/dL Normal 250-450 [facility] Comment on above: Performed By: #### L 100.0500, L500.4050, L509.1000, L503.6030, L502.0250, L506.1000, L500.4100, L100.9950 ####[facility] [address] [place], [address] Laboratory - Chemistry and C hemistry - challengeOrdered By: Carline Ashley on 11-11-2024 AST [Catalytic activity/Vol] 10 U/L Low 15-37 [facility] Lipid Profileon 11-11-2024 Cholesterol [Mass/Vol] 143 mg/dL Normal 200 [facility] Comment on above: Result Comment: <200 mg/dL Desirable 200-240 mg/dL Borderline >240 mg/dL High Risk Performed By: #### L 100.0500, L500.4050, L509.1000, L503.6030, L502.0250, L506.1000, L500.4100, L100.9950 ####[facility] [address], [address] Cholesterol in HDL [Mass/Vol] 52 mg/dL Normal [facility] Comment on above: Result Comment: The drugs N-Acetylcysteine and Metamizole may falselydepress this assay. Reference Range HDL <40 mg/dL Low HDL Cholesterol HDL >or= 60 mg/dL High HDL Cholesterol Performed By: #### L 100.0500, L500.4050, L509.1000, L503.6030, L502.0250, L506.1000, L500.4100, L100.9950 ####[facility] [address] [place], [address] Cholesterol in LDL [Mass/Vol] 72 mg/dL Normal 0-130 [facility] Comment on above: Performed By: #### L 100.0500, L500.4050, L509.1000, L503.6030, L502.0250, L506.1000, L500.4100, L100.9950 ####[facility] [address] [place], [place], [phone]) Cholesterol in VLDL [Mass/Vol] 19 mg/dL Normal 5-40 [facility] Comment on above: Performed By: #### L 100.0500, L500.4050, L509.1000, L503.6030, L502.0250, L506.1000, L500.4100, L100.9950 ####[facility] [address] [place], [address] Triglyceride [Mass/Vol] 93 mg/dL Normal [facility] Comment on above: Result Comment: The drugs N-Acetylcysteine and Metamizole may falselydepress this assay.Serum Triglycerides Reference Interval Normal <150 mg/dL Borderline high 150 - 199 mg/dL High 200 - 499 mg/dL Very High > or = 500 mg/dL Performed By: #### L 100.0500, L500.4050, L509.1000, L503.6030, L502.0250, L506.1000, L500.4100, L100.9950 ####[facility] [address] [place], [place], [phone]) Low density lipoprotein (LDL ) cholesterol measurementOrdered By: Carline Ashley on 11-11-2024 Cholesterol in LDL [Mass/Vol] 72 mg/dL 0-130 [facility] MCV (mean corpuscular volume ) determinationOrdered By: Carline Ashley on 11-11-2024 MCV (RBC) [Entitic vol] 87.4 fL 81-99 [facility] Mean corpuscular hemoglobin (MCH) determinationOrdered By: Carline Ashley on 11-11-2024 MCH (RBC) [Entitic mass] 26.8 pg Low 27.0-32.0 [facility] Mean corpuscular hemoglobin concentration (MCHC) determinationOrdered By: Carline Ashley on 11-11-2024 MCHC (RBC) [Mass/Vol] 30.7 g/dL Low 32-36 [place] Mean platelet volume determi nationOrdered By: Carline Ashley on 11-11-2024 Platelet mean volume (Bld) [Entitic vol] 9.8 fL 6.2-12.0 [facility] Microalb:Creat Ratio,Random URon 11-11-2024 Creatinine [Mass/Vol] 55.20 mg/dL Normal NO RAN GE EST. [facility] Comment on above: Performed By: #### L 100.0500, L500.4050, L509.1000, L503.6030, L502.0250, L506.1000, L500.4100, L100.9950 ####[facility] [address] [place], [address] MALB:CRE 55.6 mg/g CRE High <30 mg/g CRE [facility] Comment on above: Performed By: #### L 100.0500, L500.4050, L509.1000, L503.6030, L502.0250, L506.1000, L500.4100, L100.9950 ####[facility] [address] [place], [address] MICROALBUMIN,UR 30.7 mg/L Normal NO RANGE EST. [facility] Comment on above: Performed By: #### L 100.0500, L500.4050, L509.1000, L503.6030, L502.0250, L506.1000, L500.4100, L100.9950 ####[facility] [address] [place], [address] PTHINon 11-11-2024 PTH 109.8 pg/mL High 18.4-80.1 [facility] Comment on above: Performed By: #### L 100.0500, L500.4050, L509.1000, L503.6030, L502.0250, L506.1000, L500.4100, L100.9950 ####[facility] [address] [place], [place], [id number] Platelet countOrdered By: Nieves Ashley on 11-11-2024 Platelets (Bld) [#/Vol] 268 10*3/uL 150-450 [facility] Potassium measurementOrdered By: Carline Ashley on 11-11-2024 Potassium [Moles/Vol] 3.7 mmol/L 3.5-5.1 [place] RBC Auto (Bld) [#/Vol]Ordere d By: Carline Ashley on 11-11-2024 RBC (Bld) [#/Vol] 5.00 10*6/uL 4.2-5.4 [facility] Random urine microalbumin me asurementOrdered By: Carline Ashley on 11-11-2024 Urine Random Microalbumin 30.7 mg/L NO RANGE EST. [facility] Retic Panelon 11-11-2024 IM RET FRACTION 8.20 Normal 3.00-15.90 [facility] Comment on above: Performed By: #### L 100.0500, L500.4050, L509.1000, L503.6030, L502.0250, L506.1000, L500.4100, L100.9950 ####[facility] [address] [place], [place], [id number] RET-HE 30.0 pg Normal 30-35 [facility] Comment on above: Performed By: #### L 100.0500, L500.4050, L509.1000, L503.6030, L502.0250, L506.1000, L500.4100, L100.9950 ####[facility] [address] [place], [address] Retic Count 1.09 Normal 0.5-1.5 [facility] [facility] Comment on above: Performed By: #### L 100.0500, L500.4050, L509.1000, L503.6030, L502.0250, L506.1000, L500.4100, L100.9950 ####[facility] [address] [place], [address] Reticulocytes Auto (Bld) [#/ Vol]Ordered By: Carline Ashley on 11-11-2024 Reticulocyte Count 1.09 % 0.5-1.5 [facility] Serum anion gap measurementO rdered By: Carline Ashley on 11-11-2024 Anion gap [Moles/Vol] 2 mmol/L Low 5-15 [place] Serum globulin measurementOr dered By: Carline Ashley on 11-11-2024 Globulin (S) [Mass/Vol] 3.6 g/dL 2.2-4.2 [facility] Serum or plasma alanine marley otransferase (ALT) measurementOrdered By: Carline Ashley on 11-11-2024 ALT [Catalytic activity/Vol] 20 U/L 13-56 [facility] Serum or plasma albumin rosa urement (mass/volume)Ordered By: Carline Ashley on 11-11-2024 Albumin [Mass/Vol] 3.8 g/dL 3.2-5.0 [facility] Serum or plasma alkaline yosvany sphatase measurementOrdered By: Carline Ashley on 11-11-2024 ALP [Catalytic activity/Vol] 68 U/L 45-117 [facility] Serum or plasma calcium rosa urement (mass/volume)Ordered By: Carline Ahsley on 11-11-2024 Calcium [Mass/Vol] 9.5 mg/dL 8.5-10.1 [facility] Serum or plasma cholesterol measurement (mass/volume)Ordered By: Carline Ashley on 11-11-2024 Cholesterol [Mass/Vol] 143 mg/dL <200 [facility] Comment on above: <200 mg/dL Desirable 200-240 mg/dL Borderline >240 mg/dL High Risk Serum or plasma creatinine m easurement (mass/volume)Ordered By: Carline Ashley on 11-11-2024 Creatinine [Mass/Vol] 0.73 mg/dL 0.55-1.02 [place] Comment on above: The validity of the calculated GFR & GFRAA in patients over 70 years has not been determined. Clinical correlation is essential. Serum or plasma urea nitroge n measurement (mass/volume)Ordered By: Carline Ashley on 11-11-2024 Urea nitrogen [Mass/Vol] 12 mg/dL 7-18 [facility] Sodium levelOrdered By: Da Ashley on 11-11-2024 Sodium [Moles/Vol] 139 mmol/L 136-145 [facility] TIBCOrdered By: Carline delgado on 11-11-2024 Total Iron Binding Capacity 319 ug/dL 250-450 [facility] Total proteinOrdered By: Joshua Ashley on 11-11-2024 Protein [Mass/Vol] 7.4 g/dL 6.4-8.2 [facility] Triglycerides measurementOrd ered By: Carline Ashley on 11-11-2024 Triglyceride [Mass/Vol] 93 mg/dL <199 [facility] Comment on above: The drugs N-Acetylcy steine and Metamizole may falsely depress this assay.Serum Triglycerides Reference Interval Normal <150 mg/dL Borderline high 150 - 199 mg/dL High 200 - 499 mg/dL Very High > or = 500 mg/dL Urine albumin/creatinine rat io for detection of microalbuminuriaOrdered By: Carline Ashley on 11-11-2024 Urine Microalbumin/Creatinine Ratio 55.6 mg/g CRE High <30 [facility] Urine creatinine measurement (mass/volume)Ordered By: Carline Ashley on 11-11-2024 Creatinine (U) [Mass/Vol] 55.20 mg/dL NO RANGE EST. [facility] Very low density lipoprotein (VLDL) cholesterol measurementOrdered By: Carline Ashley on 11-11-2024 VLDL Cholesterol 19 mg/dL 5-40 [facility] Vitamin D,25 Hydroxyon 11-11 Vitamin D 25-OH 59.1 ng/mL Normal [facility] Comment on above: Result Comment: [place] min D 25(OH) Status Range Deficiency <20 ng/mL (50nmol/L) Insufficiency 20 - 30 ng/mL (50 - 75 nmol/L) Sufficiency 30 - 100 ng/mL (75 - 250 nmol/L) Toxicity >100 ng/mL (>250 nmol/L) Performed By: #### L 100.0500, L500.4050, L509.1000, L503.6030, L502.0250, L506.1000, L500.4100, L100.9950 ####[facility] [address] [place], [address] White blood cell (WBC) count Ordered By: Carline Ashley on 11-11-2024 WBC (Bld) [#/Vol] 6.4 10*3/uL 4.4-11.0 [facility] Absolute neutrophil countOrd ered By: Tamar Lacey on 10-20-2024 Neutrophils (Bld) [#/Vol] 3.6 10*3/uL 2.0-7.7 [facility] Basophil percentageOrdered B y: Tamar Lacey on 10-20-2024 Basophils/100 WBC (Bld) 0.5 % 0-1 [facility] CBC W/Diff, Automatedon Absolute Lymph 1.28 X10 3/uL Normal 0.83-4.51 [facility] Comment on above: Performed By: #### L 100.0100 ####[facility] [address] [place], [address] Absolute Neut 3.6 X10 3/uL Normal 2.0-7.7 [facility] Comment on above: Performed By: #### L 100.0100 ####[facility] [address] [place], [address] Basophils/100 WBC (Bld) 0.5 % Normal 0-1 [facility] Comment on above: Performed By: #### L 100.0100 ####[facility] [address] [place], [address] Eosinophils/100 WBC (Bld) 1.7 % Normal 0-5 [facility] Comment on above: Performed By: #### L 100.0100 ####[facility] [address] [place], [address] Erythrocyte distribution width (RBC) [Ratio] 14.5 % Normal 11.6-14.6 [facility] Comment on above: Performed By: #### L 100.0100 ####[facility] [address] [place], [address] Hematocrit (Bld) [Volume fraction] 43.5 % Normal 37-47 [facility] Comment on above: Performed By: #### L 100.0100 ####[facility] [address] [place], [address] Hemoglobin (Bld) [Mass/Vol] 13.7 g/dL Normal 12.0-15.0 [facility] Comment on above: Performed By: #### L 100.0100 ####[facility] [address] [place], [address] IG% 0.300 Normal 0.0-0.9 [facility] Comment on above: Result Comment: IG% - Immature Granulocytes (promyelocytes, myelocytes andmetamyelocytes) > 1% indicates that a LEFT SHIFT is Present. Performed By: #### L 100.0100 ####[facility] [address] [place], [address] Lymphocytes/100 WBC (Bld) 21.8 % Normal 19-41 [facility] Comment on above: Performed By: #### L 100.0100 ####[facility] [address] [place], [address] MCH (RBC) [Entitic mass] 27.6 pg Normal 27.0-32.0 [facility] Comment on above: Performed By: #### L 100.0100 ####[facility] [address] [place], [address] MCHC (RBC) [Mass/Vol] 31.5 g/dL Low 32-36 [place] Comment on above: Performed By: #### L 100.0100 ####[facility] [address] [place], [address] MCV (RBC) [Entitic vol] 87.7 fL Normal 81-99 [facility] Comment on above: Performed By: #### L 100.0100 ####[facility] [address] [place], [address] Monocytes/100 WBC (Bld) 14.7 % High 0-10 [facility] Comment on above: Performed By: #### L 100.0100 ####[facility] [address] [place], [address] Neutrophils/100 WBC (Bld) 61.0 % Normal 47-70 [facility] Comment on above: Performed By: #### L 100.0100 ####[facility] [address] [place], [address] Nucleated RBC (Bld) [#/Vol] 0 10*3/uL Normal 0-5 [facility] Comment on above: Performed By: #### L 100.0100 ####[facility] [address] [place], [address] Platelet mean volume (Bld) [Entitic vol] 10.1 fL Normal 6.2-12.0 [facility] Comment on above: Performed By: #### L 100.0100 ####[facility] [address] [place], [address] Platelets (Bld) [#/Vol] 241 10*3/uL Normal 150-450 [facility] Comment on above: Performed By: #### L 100.0100 ####[facility] [address] [place], [address] RBC (Bld) [#/Vol] 4.96 10*6/uL Normal 4.2-5.4 [facility] Comment on above: Performed By: #### L 100.0100 ####[facility] [address] [place], [address] RDW SD 46.6 fl High 35.1-43.9 [facility] Comment on above: Performed By: #### L 100.0100 ####[facility] [address] [place], [place], [id number] WBC (Bld) [#/Vol] 5.9 10*3/uL Normal 4.4-11.0 [facility] Comment on above: Performed By: #### L 100.0100 ####[facility] [address] [place], [address] Eosinophil percentageOrdered By: Tamar Lacey on 10-20-2024 Eosinophils/100 WBC (Bld) 1.7 % 0-5 [facility] Erythrocyte distribution wid th ratioOrdered By: Tamar Lacey on 10-20-2024 Erythrocyte distribution width (RBC) [Ratio] 14.5 % 11.6-14.6 [facility] Erythrocyte distribution wid th standard deviationOrdered By: Tamar Lacey on 10-20-2024 Erythrocyte distribution width (RBC) [Entitic vol] 46.6 fL High 35.1-43.9 [facility] Gastroenterology Visit Repor ton 10-20-2024 Gastroenterology Visit Report Normal [facility] Hematocrit Auto (Bld) [Volum e fraction]Ordered By: Tamar Lacey on 10-20-2024 Hematocrit (Bld) [Volume fraction] 43.5 % 37-47 [facility] Hemoglobin measurementOrdere d By: Tamar Lacey on 10-20-2024 Hemoglobin (Bld) [Mass/Vol] 13.7 g/dL 12.0-15.0 [facility] Immature granulocytes/100 WB C Auto (Bld)Ordered By: Tamar Lacey on 10-20-2024 Immature granulocytes/100 WBC (Bld) 0.300 % 0.0-0.9 [facility] Comment on above: IG% - Immature Granu locytes (promyelocytes, myelocytes and metamyelocytes) > 1% indicates that a LEFT SHIFT is Present. Lymphocytes Auto (Unsp spec) [#/Vol]Ordered By: Tamar Lacey on 10-20-2024 Lymphocytes (Bld) [#/Vol] 1.28 10*3/uL 0.83-4.5 1 [facility] Lymphocytes/100 WBC Auto (Un sp spec)Ordered By: Tamar Lacey on 10-20-2024 Lymphocytes/100 WBC (Bld) 21.8 % 19-41 [facility] MCV (mean corpuscular volume ) determinationOrdered By: Tamar Lacey on 10-20-2024 MCV (RBC) [Entitic vol] 87.7 fL 81-99 [facility] Mean corpuscular hemoglobin (MCH) determinationOrdered By: Tamar Lacey on 10-20-2024 MCH (RBC) [Entitic mass] 27.6 pg 27.0-32.0 [facility] Mean corpuscular hemoglobin concentration (MCHC) determinationOrdered By: Tamar Lacey on 10-20-2024 MCHC (RBC) [Mass/Vol] 31.5 g/dL Low 32-36 [place] Mean platelet volume determi nationOrdered By: Tamar Lacey on 10-20-2024 Platelet mean volume (Bld) [Entitic vol] 10.1 fL 6.2-12.0 [facility] Monocyte percentageOrdered B y: Tamar Lacey on 10-20-2024 Monocytes/100 WBC (Bld) 14.7 % High 0-10 [facility] Neutrophil percentageOrdered By: Tamar Lacey on 10-20-2024 Neutrophils/100 WBC (Bld) 61.0 % 47-70 [facility] Nucleated red blood cell per centageOrdered By: Tamar Lacey on 10-20-2024 Nucleated RBC/100 WBC (Bld) [Ratio] 0 % 0-5 [facility] Platelet countOrdered By: Ana Maria Lacey on 10-20-2024 Platelets (Bld) [#/Vol] 241 10*3/uL 150-450 [facility] RBC Auto (Bld) [#/Vol]Ordere d By: Tamar Lacey on 10-20-2024 RBC (Bld) [#/Vol] 4.96 10*6/uL 4.2-5.4 [facility] White blood cell (WBC) count Ordered By: Tamar Lacey on 10-20-2024 WBC (Bld) [#/Vol] 5.9 10*3/uL 4.4-11.0 [facility] EGD Reporton 09-12-2024 EGD Report Normal [facility] MR/POSTOP.ANEon 09-12-2024 MR/POSTOP.ANE Normal [facility] MR/FFBYOARU8uc 09-12-2024 MR/POSTOPAN2 Normal [facility] Surgery Specimen Level Akash 09-12-2024 Surgery Specimen Level IV Normal [facility] Comment on above: Performed By: #### P SUIV ####[facility] [address] [place], [address] CBC W/Diff, Automatedon 08-17 Absolute Lymph 1.31 X10 3/uL Normal 0.83-4.51 [facility] Comment on above: Performed By: #### L 503.6030, L100.0100, L100.9950, L501.5200, L500.4050, L101.9900, L501.6710 ####[facility] [address] [place], [address] Absolute Neut 4.8 X10 3/uL Normal 2.0-7.7 [facility] Comment on above: Performed By: #### L 503.6030, L100.0100, L100.9950, L501.5200, L500.4050, L101.9900, L501.6710 ####[facility] [address] [place], [address] Basophils/100 WBC (Bld) 0.7 % Normal 0-1 [facility] Comment on above: Performed By: #### L 503.6030, L100.0100, L100.9950, L501.5200, L500.4050, L101.9900, L501.6710 ####[facility] [address] [place], [address] Eosinophils/100 WBC (Bld) 1.8 % Normal 0-5 [facility] Comment on above: Performed By: #### L 503.6030, L100.0100, L100.9950, L501.5200, L500.4050, L101.9900, L501.6710 ####[facility] [address] [place], [address] Erythrocyte distribution width (RBC) [Ratio] 17.5 % High 11.6-14.6 [facility] Comment on above: Performed By: #### L 503.6030, L100.0100, L100.9950, L501.5200, L500.4050, L101.9900, L501.6710 ####[facility] [address] [place], [address] Hematocrit (Bld) [Volume fraction] 44.7 % Normal 37-47 [facility] Comment on above: Performed By: #### L 503.6030, L100.0100, L100.9950, L501.5200, L500.4050, L101.9900, L501.6710 ####[facility] [address] [place], [address] Hemoglobin (Bld) [Mass/Vol] 13.6 g/dL Normal 12.0-15.0 [facility] Comment on above: Performed By: #### L 503.6030, L100.0100, L100.9950, L501.5200, L500.4050, L101.9900, L501.6710 ####[facility] [address] [place], [address] IG% 0.300 Normal 0.0-0.9 [facility] Comment on above: Result Comment: IG% - Immature Granulocytes (promyelocytes, myelocytes andmetamyelocytes) > 1% indicates that a LEFT SHIFT is Present. Performed By: #### L 503.6030, L100.0100, L100.9950, L501.5200, L500.4050, L101.9900, L501.6710 ####[facility] [address] [place], [address] Lymphocytes/100 WBC (Bld) 19.2 % Normal 19-41 [facility] Comment on above: Performed By: #### L 503.6030, L100.0100, L100.9950, L501.5200, L500.4050, L101.9900, L501.6710 ####[facility] [address] [place], [address] MCH (RBC) [Entitic mass] 27.4 pg Normal 27.0-32.0 [facility] Comment on above: Performed By: #### L 503.6030, L100.0100, L100.9950, L501.5200, L500.4050, L101.9900, L501.6710 ####[facility] [address] [place], [address] MCHC (RBC) [Mass/Vol] 30.4 g/dL Low 32-36 [place] Comment on above: Performed By: #### L 503.6030, L100.0100, L100.9950, L501.5200, L500.4050, L101.9900, L501.6710 ####[facility] [address] [place], [address] MCV (RBC) [Entitic vol] 90.1 fL Normal 81-99 [facility] Comment on above: Performed By: #### L 503.6030, L100.0100, L100.9950, L501.5200, L500.4050, L101.9900, L501.6710 ####[facility] [address] [place], [address] Monocytes/100 WBC (Bld) 8.5 % Normal 0-10 [facility] Comment on above: Performed By: #### L 503.6030, L100.0100, L100.9950, L501.5200, L500.4050, L101.9900, L501.6710 ####[facility] [address] [place], [address] Neutrophils/100 WBC (Bld) 69.5 % Normal 47-70 [facility] Comment on above: Performed By: #### L 503.6030, L100.0100, L100.9950, L501.5200, L500.4050, L101.9900, L501.6710 ####[facility] [address] [place], [address] Nucleated RBC (Bld) [#/Vol] 0 10*3/uL Normal 0-5 [facility] Comment on above: Performed By: #### L 503.6030, L100.0100, L100.9950, L501.5200, L500.4050, L101.9900, L501.6710 ####[facility] [address] [place], [address] Platelet mean volume (Bld) [Entitic vol] 9.8 fL Normal 6.2-12.0 [facility] Comment on above: Performed By: #### L 503.6030, L100.0100, L100.9950, L501.5200, L500.4050, L101.9900, L501.6710 ####[facility] [address] [place], [address] Platelets (Bld) [#/Vol] 298 10*3/uL Normal 150-450 [facility] Comment on above: Performed By: #### L 503.6030, L100.0100, L100.9950, L501.5200, L500.4050, L101.9900, L501.6710 ####[facility] [address] [place], [address] RBC (Bld) [#/Vol] 4.96 10*6/uL Normal 4.2-5.4 [facility] Comment on above: Performed By: #### L 503.6030, L100.0100, L100.9950, L501.5200, L500.4050, L101.9900, L501.6710 ####[facility] [address] [place], [address] RDW SD 58.0 fl High 35.1-43.9 [facility] Comment on above: Performed By: #### L 503.6030, L100.0100, L100.9950, L501.5200, L500.4050, L101.9900, L501.6710 ####[facility] [address] [place], [place], [phone]) WBC (Bld) [#/Vol] 6.8 10*3/uL Normal 4.4-11.0 [facility] Comment on above: Performed By: #### L 503.6030, L100.0100, L100.9950, L501.5200, L500.4050, L101.9900, L501.6710 ####[facility] [address] [place], [address] CRPon 09-06-2024 C-REACTIVE PROT < 2.90 Normal 0.0-3.0 [facility] Comment on above: Result Comment: C-Re active Protein (CRP) provides useful information for thediagnosis, therapy and monitoring of inflammatory processesand associated diseases. For the evaluation of Relative Riskfor Cardiovascular Disease, a High Sensitivity CRP (HSCRP)should be ordered. Performed By: #### L 503.6030, L100.0100, L100.9950, L501.5200, L500.4050, L101.9900, L501.6710 ####[facility] [address] [place], [address] Comprehensive Metabolic Prof ilon 09-06-2024 Albumin [Mass/Vol] 3.7 g/dL Normal 3.2-5.0 [facility] Comment on above: Performed By: #### L 503.6030, L100.0100, L100.9950, L501.5200, L500.4050, L101.9900, L501.6710 ####[facility] [address] [place], [address] Albumin/Globulin [Mass ratio] 1.0 {ratio} Normal 0.9-2.4 [facility] Comment on above: Performed By: #### L 503.6030, L100.0100, L100.9950, L501.5200, L500.4050, L101.9900, L501.6710 ####[facility] [address] [place], [address] ALK P 138 U/L High 45-117 [facility] Comment on above: Performed By: #### L 503.6030, L100.0100, L100.9950, L501.5200, L500.4050, L101.9900, L501.6710 ####[facility] [address] [place], [address] ALT [Catalytic activity/Vol] 40 U/L Normal 13-56 [facility] Comment on above: Performed By: #### L 503.6030, L100.0100, L100.9950, L501.5200, L500.4050, L101.9900, L501.6710 ####[facility] [address] [place], [address] AST [Catalytic activity/Vol] 22 U/L Normal 15-37 [facility] Comment on above: Performed By: #### L 503.6030, L100.0100, L100.9950, L501.5200, L500.4050, L101.9900, L501.6710 ####[facility] [address] [place], [address] Bilirubin [Mass/Vol] 0.30 mg/dL Normal 0.20-1.00 [facility] Comment on above: Result Comment: For patients on eltrombopag therapy, use of Dimension [place] TBIL is not recommended. Performed By: #### L 503.6030, L100.0100, L100.9950, L501.5200, L500.4050, L101.9900, L501.6710 ####[facility] [address] [place], [address] BUN/CRE 26.9 RATIO High 10-20 [facility] Comment on above: Performed By: #### L 503.6030, L100.0100, L100.9950, L501.5200, L500.4050, L101.9900, L501.6710 ####[facility] [address] [place], [address] CA,Total 9.4 mg/dL Normal 8.5-10.1 [facility] Comment on above: Performed By: #### L 503.6030, L100.0100, L100.9950, L501.5200, L500.4050, L101.9900, L501.6710 ####[facility] [address] [place], [address] Chloride [Moles/Vol] 104 mmol/L Normal 98-107 [facility] Comment on above: Performed By: #### L 503.6030, L100.0100, L100.9950, L501.5200, L500.4050, L101.9900, L501.6710 ####[facility] [address] [place], [address] CO2 [Moles/Vol] 31.0 mmol/L Normal 21.0-32.0 [facility] Comment on above: Performed By: #### L 503.6030, L100.0100, L100.9950, L501.5200, L500.4050, L101.9900, L501.6710 ####[facility] [address] [place], [address] Creatinine [Mass/Vol] 0.59 mg/dL Normal 0.55-1.02 [place] Comment on above: Result Comment: The validity of the calculated GFR GFRAA in patients over70 years has not been determined. Clinical correlation isessential. Performed By: #### L 503.6030, L100.0100, L100.9950, L501.5200, L500.4050, L101.9900, L501.6710 ####[facility] [address] [place], [address] ECRCL 68.84 ml/min Normal [facility] Comment on above: Performed By: #### L 503.6030, L100.0100, L100.9950, L501.5200, L500.4050, L101.9900, L501.6710 ####[facility] [address] [place], [address] EST GFR - AA 130 mL/min Normal >60 [facility] Comment on above: Result Comment: Afri can Ivorian GFR Calc Performed By: #### L 503.6030, L100.0100, L100.9950, L501.5200, L500.4050, L101.9900, L501.6710 ####[facility] [address] [place], [address] GAP 5 Normal 5-15 [facility] Comment on above: Performed By: #### L 503.6030, L100.0100, L100.9950, L501.5200, L500.4050, L101.9900, L501.6710 ####[facility] [address] [place], [address] GFR/1.73 sq M.predicted among non-blacks MDRD (S/P/Bld) [Vol rate/Area] 107 mL/min/{1.73_m2} Normal >60 [facility] Comment on above: Result Comment: Non- GFR Calc Performed By: #### L 503.6030, L100.0100, L100.9950, L501.5200, L500.4050, L101.9900, L501.6710 ####[facility] [address] [place], [address] Globulin (S) [Mass/Vol] 3.7 g/dL Normal 2.2-4.2 [facility] Comment on above: Performed By: #### L 503.6030, L100.0100, L100.9950, L501.5200, L500.4050, L101.9900, L501.6710 ####[facility] [address] [place], [place], [phone]([phone] Glucose [Mass/Vol] 87 mg/dL Normal 74-106 [facility] Comment on above: Performed By: #### L 503.6030, L100.0100, L100.9950, L501.5200, L500.4050, L101.9900, L501.6710 ####[facility] [address] [place], [place], [phone]) Potassium [Moles/Vol] 3.3 mmol/L Low 3.5-5.1 [place] Comment on above: Performed By: #### L 503.6030, L100.0100, L100.9950, L501.5200, L500.4050, L101.9900, L501.6710 ####[facility] [address] [place], [address] Sodium [Moles/Vol] 140 mmol/L Normal 136-145 [facility] Comment on above: Performed By: #### L 503.6030, L100.0100, L100.9950, L501.5200, L500.4050, L101.9900, L501.6710 ####[facility] [address] [place], [place], [id number] T PROT 7.4 g/dL Normal 6.4-8.2 [facility] Comment on above: Performed By: #### L 503.6030, L100.0100, L100.9950, L501.5200, L500.4050, L101.9900, L501.6710 ####[facility] [address] [place], [place], [phone] Urea nitrogen [Mass/Vol] 16 mg/dL Normal 7-18 [facility] Comment on above: Performed By: #### L 503.6030, L100.0100, L100.9950, L501.5200, L500.4050, L101.9900, L501.6710 ####[facility] [address] [place], [place], [address] Erythrocyte Sed Rateon 09-06 SED RATE 25 mm/hr Normal 0-30 [facility] Comment on above: Performed By: #### L 503.6030, L100.0100, L100.9950, L501.5200, L500.4050, L101.9900, L501.6710 ####[facility] [address] [place], [place], [phone] Estimated glomerular filtrat ion rate (GFR) AmericanOrdered By: Joseph Torres on 09-06-2024 Estimated GFR (MDRD) Amer 130 mL/min >60 [facility] Comment on above: GFR Calc Ferritinon 09-06-2024 Ferritin [Mass/Vol] 120 ng/mL Normal 8-252 [facility] Comment on above: Order Comment: 1N Performed By: #### L 501.2300, L504.2610, L503.6550, L503.0105, L506.0250 ####[facility] [address] [place], [address] Folates, (Folic Acid)on 08-17 FOLATES 11.30 ng/mL Normal 3.1-55.4 [facility] Comment on above: Order Comment: 1N Performed By: #### L 501.2300, L504.2610, L503.6550, L503.0105, L506.0250 ####[facility] [address] [place], [address] Folic acid measurementOrdere d By: Joseph Torres on 09-06-2024 Folate 11.30 ng/mL 3.1-55.4 [facility] Hemoglobin (Reticulocytes) [ Entitic mass]Ordered By: Joseph Torres on 09-06-2024 Reticulocyte Hemoglobin Equivalent 29.5 pg Low 30-35 [facility] Immature reticulocyte fracti onOrdered By: Joseph Torres on 09-06-2024 Immature Reticulocyte Fraction 9.60 % 3.00-15.90 [facility] Iron+Iron Binding Capacityon 09-06-2024 Iron [Mass/Vol] 83 ug/dL Normal 50-170 [facility] Comment on above: Performed By: #### L 503.6030, L100.0100, L100.9950, L501.5200, L500.4050, L101.9900, L501.6710 ####[facility] [address] [place], [address] IRON SATURATION 25.7 Normal 15.0-55.0 [facility] Comment on above: Performed By: #### L 503.6030, L100.0100, L100.9950, L501.5200, L500.4050, L101.9900, L501.6710 ####[facility] [address] [place], [address] TIBC 323 ug/dL Normal 250-450 [facility] Comment on above: Performed By: #### L 503.6030, L100.0100, L100.9950, L501.5200, L500.4050, L101.9900, L501.6710 ####[facility] [address] [place], [address] LDHon 09-06-2024 LDH 146 U/L Normal 84-246 [facility] Comment on above: Order Comment: 1N Performed By: #### L 501.2300, L504.2610, L503.6550, L503.0105, L506.0250 ####[facility] [address] [place], [address] Magnesiumon 09-06-2024 Magnesium [Mass/Vol] 1.8 mg/dL Normal 1.6-2.6 [facility] Comment on above: Performed By: #### L 503.6030, L100.0100, L100.9950, L501.5200, L500.4050, L101.9900, L501.6710 ####[facility] [address] [place], [address] Magnesium measurementOrdered By: Joseph Torres on 09-06-2024 Magnesium [Mass/Vol] 1.8 mg/dL 1.6-2.6 [facility] Oncology Visit Reporton 08-17 Oncology Visit Report Normal [place] Phosphoruson 09-06-2024 Phosphate [Mass/Vol] 2.5 mg/dL Normal 2.5-4.9 [facility] Comment on above: Order Comment: 1N Performed By: #### L 501.2300, L504.2610, L503.6550, L503.0105, L506.0250 ####[facility] [address] [place], [address] Phosphorus measurementOrdere d By: Joseph Torres on 09-06-2024 Phosphorus Level 2.5 mg/dL 2.5-4.9 [facility] Retic Panelon 09-06-2024 IM RET FRACTION 9.60 Normal 3.00-15.90 [facility] Comment on above: Performed By: #### L 503.6030, L100.0100, L100.9950, L501.5200, L500.4050, L101.9900, L501.6710 ####[facility] [address] [place], [address] RET-HE 29.5 pg Low 30-35 [facility] Comment on above: Performed By: #### L 503.6030, L100.0100, L100.9950, L501.5200, L500.4050, L101.9900, L501.6710 ####[facility] [address] [place], [place], [phone] Retic Count 1.23 Normal 0.5-1.5 [facility] Comment on above: Performed By: #### L 503.6030, L100.0100, L100.9950, L501.5200, L500.4050, L101.9900, L501.6710 ####[facility] [address] [place], [place], [phone] Reticulocyte hemoglobin equi valent (RET-He) measurementOrdered By: Joseph Torres on 09-06-2024 Hemoglobin (Reticulocytes) [Entitic mass] 29.5 pg Low 30-35 [facility] Reticulocytes Auto (Bld) [#/ Vol]Ordered By: Joseph Torres on 09-06-2024 Reticulocyte Count 1.23 % 0.5-1.5 [facility] Reticulocytes/100 RBC (Bld) 1.23 % 0.5-1.5 [facility] Vitamin B12on 09-06-2024 Cobalamin (Vitamin B12) [Mass/Vol] 244 pg/mL Normal 211-911 [facility] Comment on above: Performed By: #### L 501.2300, L504.2610, L503.6550, L503.0105, L506.0250 ####[facility] [address] [place], [place], [address] Vitamin B12 measurementOrder ed By: Joseph Torres on 09-06-2024 Cobalamin (Vitamin B12) [Mass/Vol] 244 pg/mL 211-911 [facility] Low Dose CT Lung Screeningon 08-16-[address] Lung Screening Normal [facility] Oncology Visit Reporton Oncology Visit Report Normal [place] Ankle Brachial Indexon 08-09 Ankle Brachial Index Normal [facility] US Art Duplex Unilat Lower E xton 08-09-2024 US Art Duplex Unilat Lower Ext Normal [facility] Oncology Visit Reporton Oncology Visit Report Normal [place] Erythropoietinon 07-13-2024 ERYTHROPOIETIN 19.4 mIU/mL High 2.6-18.5 [facility] Comment on above: Result Comment: SPARQCodeel DxI 800 Immunoassay SystemValues obtained with different assay methods or kits cannotbe used interchangeably. Results cannot be interpreted asabsolute evidence of the presence or absence of malignantdisease.Performed at: [facility] [id number] Director: Prabhu Sorenson PhD, Phone: [phone] Performed By: #### L 100.9950, L503.6030, L501.6710, L503.0105, L506.0250, L503.6550, L504.2610, L100.0100, L501.2300, L3100.1350, L101.9900, L501.5200, L500.4050 ####[facility] [address] [place], [place], [address] Gastroenterology Visit Repor ton 07-13-2024 Gastroenterology Visit Report Normal [facility] CBC W/Diff, Automatedon 06-17 PATH REV Reviewed Normal [facility] Comment on above: Result Comment: Neut rophilic leukocytosis.Normocytic anemia.Clinical correlation necessary.León Oneil M.D. 07/12/24 AMENDED REPORT 07/12/24 2805 PATH REV previously reported as: Destini boyd Performed By: #### L 100.9950, L503.6030, L501.6710, L503.0105, L506.0250, L503.6550, L504.2610, L100.0100, L501.2300, L3100.1350, L101.9900, L501.5200, L500.4050 ####[facility] [address] [place], [place], [phone] Blood manual differential co mment interpretation (narrative result)Ordered By: Joseph Torres on 07-11-2024 Manual differential comment Simone (Bld) [Interp] SCANNED [facility] CRPon 07-11-2024 C-REACTIVE PROT 40.80 mg/L High 0.0-3.0 [facility] Comment on above: Order Comment: UNKNO WN1N Result Comment: C-Re active Protein (CRP) provides useful information for thediagnosis, therapy and monitoring of inflammatory processesand associated diseases. For the evaluation of Relative Riskfor Cardiovascular Disease, a High Sensitivity CRP (HSCRP)should be ordered. Performed By: #### L 100.9950, L503.6030, L501.6710, L503.0105, L506.0250, L503.6550, L504.2610, L100.0100, L501.2300, L3100.1350, L101.9900, L501.5200, L500.4050 ####[facility] [address] [place], [place], [phone] Comprehensive Metabolic Prof ilon 07-11-2024 Albumin [Mass/Vol] 2.8 g/dL Low 3.2-5.0 [facility] Comment on above: Order Comment: GARDENIAO WN1N Performed By: #### L 100.9950, L503.6030, L501.6710, L503.0105, L506.0250, L503.6550, L504.2610, L100.0100, L501.2300, L3100.1350, L101.9900, L501.5200, L500.4050 ####[facility] [address] [place], [place], [phone] Albumin/Globulin [Mass ratio] 0.8 {ratio} Low 0.9-2.4 [facility] Comment on above: Order Comment: UNKNO WN1N Performed By: #### L 100.9950, L503.6030, L501.6710, L503.0105, L506.0250, L503.6550, L504.2610, L100.0100, L501.2300, L3100.1350, L101.9900, L501.5200, L500.4050 ####[facility] [address] [place], [place], [phone] ALK P 112 U/L Normal 45-117 [facility] Comment on above: Order Comment: UNKNO WN1N Performed By: #### L 100.9950, L503.6030, L501.6710, L503.0105, L506.0250, L503.6550, L504.2610, L100.0100, L501.2300, L3100.1350, L101.9900, L501.5200, L500.4050 ####[facility] [address] [place], [place], [address] ALT [Catalytic activity/Vol] 43 U/L Normal 13-56 [facility] Comment on above: Order Comment: UNKNO WN1N Performed By: #### L 100.9950, L503.6030, L501.6710, L503.0105, L506.0250, L503.6550, L504.2610, L100.0100, L501.2300, L3100.1350, L101.9900, L501.5200, L500.4050 ####[facility] [address] [place], [place], [phone]) AST [Catalytic activity/Vol] 42 U/L High 15-37 [facility] Comment on above: Order Comment: UNKNO WN1N Performed By: #### L 100.9950, L503.6030, L501.6710, L503.0105, L506.0250, L503.6550, L504.2610, L100.0100, L501.2300, L3100.1350, L101.9900, L501.5200, L500.4050 ####[facility] [address] [place], [place], [phone](802) Bilirubin [Mass/Vol] 0.60 mg/dL Normal 0.20-1.00 [facility] Comment on above: Order Comment: UNKNO WN1N Result Comment: For patients on eltrombopag therapy, use of Dimension Manson TBIL is not recommended. Performed By: #### L 100.9950, L503.6030, L501.6710, L503.0105, L506.0250, L503.6550, L504.2610, L100.0100, L501.2300, L3100.1350, L101.9900, L501.5200, L500.4050 ####[facility] [address] [place], [place], [phone](754) BUN/CRE 14.6 RATIO Normal 10-20 [facility] Comment on above: Order Comment: UNKNO WN1N Performed By: #### L 100.9950, L503.6030, L501.6710, L503.0105, L506.0250, L503.6550, L504.2610, L100.0100, L501.2300, L3100.1350, L101.9900, L501.5200, L500.4050 ####[facility] [address] [place], [place], [phone](429) CA,Total 9.1 mg/dL Normal 8.5-10.1 [facility] Comment on above: Order Comment: UNKNO WN1N Performed By: #### L 100.9950, L503.6030, L501.6710, L503.0105, L506.0250, L503.6550, L504.2610, L100.0100, L501.2300, L3100.1350, L101.9900, L501.5200, L500.4050 ####[facility] [address] [place], [place], [phone] Chloride [Moles/Vol] 103 mmol/L Normal 98-107 [facility] Comment on above: Order Comment: UNKNO WN1N Performed By: #### L 100.9950, L503.6030, L501.6710, L503.0105, L506.0250, L503.6550, L504.2610, L100.0100, L501.2300, L3100.1350, L101.9900, L501.5200, L500.4050 ####[facility] [address] [place], [place], [address] CO2 [Moles/Vol] 29.0 mmol/L Normal 21.0-32.0 [facility] Comment on above: Order Comment: UNKNO WN1N Performed By: #### L 100.9950, L503.6030, L501.6710, L503.0105, L506.0250, L503.6550, L504.2610, L100.0100, L501.2300, L3100.1350, L101.9900, L501.5200, L500.4050 ####[facility] [address] [place], [place], [address] Creatinine [Mass/Vol] 0.89 mg/dL Normal 0.55-1.02 [place] Comment on above: Order Comment: UNKNO WN1N Result Comment: The validity of the calculated GFR GFRAA in patients over70 years has not been determined. Clinical correlation isessential. Performed By: #### L 100.9950, L503.6030, L501.6710, L503.0105, L506.0250, L503.6550, L504.2610, L100.0100, L501.2300, L3100.1350, L101.9900, L501.5200, L500.4050 ####[facility] [address] [place], [place], [address] EST GFR - AA 81 mL/min Normal >60 [facility] Comment on above: Order Comment: UNKNO WN1N Result Comment: Afri can Ivorian GFR Calc Performed By: #### L 100.9950, L503.6030, L501.6710, L503.0105, L506.0250, L503.6550, L504.2610, L100.0100, L501.2300, L3100.1350, L101.9900, L501.5200, L500.4050 ####[facility] [address] [place], [place], [address] GAP 7 Normal 5-15 [facility] Comment on above: Order Comment: UNKNO WN1N Performed By: #### L 100.9950, L503.6030, L501.6710, L503.0105, L506.0250, L503.6550, L504.2610, L100.0100, L501.2300, L3100.1350, L101.9900, L501.5200, L500.4050 ####[facility] [address] [place], [place], [phone] GFR/1.73 sq M.predicted among non-blacks MDRD (S/P/Bld) [Vol rate/Area] 67 mL/min/{1.73_m2} Normal >60 [facility] Comment on above: Order Comment: UNKNO WN1N Result Comment: Non- GFR Calc Performed By: #### L 100.9950, L503.6030, L501.6710, L503.0105, L506.0250, L503.6550, L504.2610, L100.0100, L501.2300, L3100.1350, L101.9900, L501.5200, L500.4050 ####[facility] [address] [place], [address] Globulin (S) [Mass/Vol] 3.5 g/dL Normal 2.2-4.2 [facility] Comment on above: Order Comment: UNKNO WN1N Performed By: #### L 100.9950, L503.6030, L501.6710, L503.0105, L506.0250, L503.6550, L504.2610, L100.0100, L501.2300, L3100.1350, L101.9900, L501.5200, L500.4050 ####[facility] [address] [place], [place], [phone](455) Glucose [Mass/Vol] 104 mg/dL Normal 74-106 [facility] Comment on above: Order Comment: UNKNO WN1N Result Comment: Fast ing Glucose result from 100 to 125 mg/dLsuggests IMPAIRED HOMEOSTASIS per A.D.A. criteria. Performed By: #### L 100.9950, L503.6030, L501.6710, L503.0105, L506.0250, L503.6550, L504.2610, L100.0100, L501.2300, L3100.1350, L101.9900, L501.5200, L500.4050 ####[facility] [address] [place], [place], [phone](764) Potassium [Moles/Vol] 3.9 mmol/L Normal 3.5-5.1 [place] Comment on above: Order Comment: UNKNO WN1N Performed By: #### L 100.9950, L503.6030, L501.6710, L503.0105, L506.0250, L503.6550, L504.2610, L100.0100, L501.2300, L3100.1350, L101.9900, L501.5200, L500.4050 ####[facility] [address] [place], [place], [phone] Sodium [Moles/Vol] 139 mmol/L Normal 136-145 [facility] Comment on above: Order Comment: UNKNO WN1N Performed By: #### L 100.9950, L503.6030, L501.6710, L503.0105, L506.0250, L503.6550, L504.2610, L100.0100, L501.2300, L3100.1350, L101.9900, L501.5200, L500.4050 ####[facility] [address] [place], [address] T PROT 6.3 g/dL Low 6.4-8.2 [facility] Comment on above: Order Comment: UNKNO WN1N Performed By: #### L 100.9950, L503.6030, L501.6710, L503.0105, L506.0250, L503.6550, L504.2610, L100.0100, L501.2300, L3100.1350, L101.9900, L501.5200, L500.4050 ####[facility] [address] [place], [place], [address] Urea nitrogen [Mass/Vol] 13 mg/dL Normal 7-18 [facility] Comment on above: Order Comment: UNKNO WN1N Performed By: #### L 100.9950, L503.6030, L501.6710, L503.0105, L506.0250, L503.6550, L504.2610, L100.0100, L501.2300, L3100.1350, L101.9900, L501.5200, L500.4050 ####[facility] [address] [place], [place], [phone] Erythrocyte Sed Rateon 07-11 SED RATE 18 mm/hr Normal 0-30 [facility] Comment on above: Performed By: #### L 100.9950, L503.6030, L501.6710, L503.0105, L506.0250, L503.6550, L504.2610, L100.0100, L501.2300, L3100.1350, L101.9900, L501.5200, L500.4050 ####[facility] [address] [place], [address] Erythropoietin (EPO) QnOrder ed By: Joseph Torres on 07-11-2024 Erythropoietin 19.4 mIU/mL High 2.6-18.5 [facility] Comment on above: Sabiha DoseMe UniC el DxI 800 Immunoassay SystemValues obtained with different assay methods or kits cannotbe used interchangeably. Results cannot be interpreted asabsolute evidence of the presence or absence of malignantdisease.Performed at: [facility] [id number] Director: Prabhu Sorenson PhD, Phone: [phone] Ferritinon 07-11-2024 Ferritin [Mass/Vol] 12 ng/mL Normal 8-252 [facility] Comment on above: Order Comment: UNKNO WN1N Performed By: #### L 100.9950, L503.6030, L501.6710, L503.0105, L506.0250, L503.6550, L504.2610, L100.0100, L501.2300, L3100.1350, L101.9900, L501.5200, L500.4050 ####[facility] [address] [place], [place], [phone] Folates, (Folic Acid)on 06-17 FOLATES 11.30 ng/mL Normal 3.1-55.4 [facility] Comment on above: Order Comment: UNKNO WN1N Performed By: #### L 100.9950, L503.6030, L501.6710, L503.0105, L506.0250, L503.6550, L504.2610, L100.0100, L501.2300, L3100.1350, L101.9900, L501.5200, L500.4050 ####[facility] [address] [place], [place], [address] Iron+Iron Binding Capacityon 07-11-2024 Iron [Mass/Vol] 22 ug/dL Low 50-170 [facility] Comment on above: Order Comment: UNKNO WN1N Performed By: #### L 100.9950, L503.6030, L501.6710, L503.0105, L506.0250, L503.6550, L504.2610, L100.0100, L501.2300, L3100.1350, L101.9900, L501.5200, L500.4050 ####[facility] [address] [place], [place], [phone] IRON SATURATION 6.0 Low 15.0-55.0 [facility] Comment on above: Order Comment: UNKNO WN1N Performed By: #### L 100.9950, L503.6030, L501.6710, L503.0105, L506.0250, L503.6550, L504.2610, L100.0100, L501.2300, L3100.1350, L101.9900, L501.5200, L500.4050 ####[facility] [address] [place], [place], [phone] TIBC 367 ug/dL Normal 250-450 [facility] Comment on above: Order Comment: UNKNO WN1N Performed By: #### L 100.9950, L503.6030, L501.6710, L503.0105, L506.0250, L503.6550, L504.2610, L100.0100, L501.2300, L3100.1350, L101.9900, L501.5200, L500.4050 ####[facility] [address] [place], [place], [address] LDHon 07-11-2024 LDH 197 U/L Normal 84-246 [facility] Comment on above: Order Comment: UNKNO WN1N Performed By: #### L 100.9950, L503.6030, L501.6710, L503.0105, L506.0250, L503.6550, L504.2610, L100.0100, L501.2300, L3100.1350, L101.9900, L501.5200, L500.4050 ####[facility] [address] [place], [place], [address] Magnesiumon 07-11-2024 Magnesium [Mass/Vol] 1.7 mg/dL Normal 1.6-2.6 [facility] Comment on above: Order Comment: UNKNO WN1N Performed By: #### L 100.9950, L503.6030, L501.6710, L503.0105, L506.0250, L503.6550, L504.2610, L100.0100, L501.2300, L3100.1350, L101.9900, L501.5200, L500.4050 ####[facility] [address] [place], [place], [address] Manual differential comment Simone (Bld) [Interp]Ordered By: Joseph Torres on 07-11-2024 Differential Comment SCANNED [facility] Oncology Visit Reporton 06-17 Oncology Visit Report Normal [place] Pathologist review Simone (Unsp spec) [Interp]Ordered By: Joseph Torres on 07-11-2024 Differential Pathologist's Review Reviewed [facility] Comment on above: Previous reported re sult: Destini boyd Edited by: PAL on 07/12/24:1355Neutrophilic leukocytosis.Normocytic anemia.Clinical correlation necessary.León Oneil M.D. 07/12/24 AMENDED REPORT 07/12/24 4385 PATH REV previously reported as: Destini boyd Phosphoruson 07-11-2024 Phosphate [Mass/Vol] 2.8 mg/dL Normal 2.5-4.9 [facility] Comment on above: Order Comment: UNKNO WN1N Performed By: #### L 100.9950, L503.6030, L501.6710, L503.0105, L506.0250, L503.6550, L504.2610, L100.0100, L501.2300, L3100.1350, L101.9900, L501.5200, L500.4050 ####[facility] [address] [place], [place], [phone] Retic Panelon 07-11-2024 IM RET FRACTION 19.10 High 3.00-15.90 [facility] Comment on above: Performed By: #### L 100.9950, L503.6030, L501.6710, L503.0105, L506.0250, L503.6550, L504.2610, L100.0100, L501.2300, L3100.1350, L101.9900, L501.5200, L500.4050 ####[facility] [address] [place], [place], [id number] RET-HE 23.7 pg Low 30-35 [facility] Comment on above: Performed By: #### L 100.9950, L503.6030, L501.6710, L503.0105, L506.0250, L503.6550, L504.2610, L100.0100, L501.2300, L3100.1350, L101.9900, L501.5200, L500.4050 ####[facility] [address] [place], [place], [address] Retic Count 1.49 Normal 0.5-1.5 [facility] Comment on above: Performed By: #### L 100.9950, L503.6030, L501.6710, L503.0105, L506.0250, L503.6550, L504.2610, L100.0100, L501.2300, L3100.1350, L101.9900, L501.5200, L500.4050 ####[facility] [address] [place], [address] Review by pathologistOrdered By: Joseph Torres on 07-11-2024 Pathologist review Simone (Unsp spec) [Interp] Reviewed [facility] Comment on above: Previous reported re sult: Destini oliver Edited by: PAL on 07/12/24:1355Neutrophilic leukocytosis.Normocytic anemia.Clinical correlation necessary.León Oneil M.D. 07/12/24 AMENDED REPORT 07/12/24 1355 PATH REV previously reported as: Destini boyd Serum or plasma erythropoiet in (EPO) measurement (units/volume)Ordered By: Joseph Torres on 07-11-2024 Erythropoietin (EPO) Qn 19.4 mIU/mL High 2.6-18.5 [facility] Comment on above: Sabiha VENNCOMM el DxI 800 Immunoassay SystemValues obtained with different assay methods or kits cannotbe used interchangeably. Results cannot be interpreted asabsolute evidence of the presence or absence of malignantdisease.Performed at: [facility] [place] [id number] Director: Prabhu Sorenson PhD, Phone: [phone] Toxic granules LM Ql (Bld)Or dered By: Joseph Torres on 07-11-2024 Toxic Granulation 1+ [facility] Toxic leukocyte granulation detectionOrdered By: Joseph Torres on 07-11-2024 Toxic granules LM Ql (Bld) 1+ [facility] Vitamin B12on 07-11-2024 Cobalamin (Vitamin B12) [Mass/Vol] 212 pg/mL Normal 211-911 [facility] Comment on above: Performed By: #### L 100.9950, L503.6030, L501.6710, L503.0105, L506.0250, L503.6550, L504.2610, L100.0100, L501.2300, L3100.1350, L101.9900, L501.5200, L500.4050 ####[facility] [address] [place], [address] CBC-Complete Blood Cnt No Lourdes farias 06-10-2024 Erythrocyte distribution width (RBC) [Ratio] 17.3 % High 11.6-14.6 [facility] Comment on above: Performed By: #### L 503.6030, L500.4050, L100.0500 ####[facility] [id number] [place], [address] Hematocrit (Bld) [Volume fraction] 37.6 % Normal 37-47 [facility] Comment on above: Performed By: #### L 503.6030, L500.4050, L100.0500 ####[facility] [address] [place], [address] Hemoglobin (Bld) [Mass/Vol] 11.6 g/dL Low 12.0-15.0 [facility] Comment on above: Performed By: #### L 503.6030, L500.4050, L100.0500 ####[facility] [address] [place], [address] MCH (RBC) [Entitic mass] 26.2 pg Low 27.0-32.0 [facility] Comment on above: Performed By: #### L 503.6030, L500.4050, L100.0500 ####[facility] [id number] [place], [address] MCHC (RBC) [Mass/Vol] 30.9 g/dL Low 32-36 [place] Comment on above: Performed By: #### L 503.6030, [id number], L100.0500 ####[facility] [address] [place], [address] MCV (RBC) [Entitic vol] 84.9 fL Normal 81-99 [facility] Comment on above: Performed By: #### L 503.6030, [id number], L100.0500 ####[facility] [address] [place], [address] Platelet mean volume (Bld) [Entitic vol] 9.7 fL Normal 6.2-12.0 [facility] Comment on above: Performed By: #### L 503.6030, [id number], L100.0500 ####[facility] [address] [place], [address] Platelets (Bld) [#/Vol] 405 10*3/uL Normal 150-450 [facility] Comment on above: Performed By: #### L 503.6030, [id number], L100.0500 ####[facility] [address] [place], [address] RBC (Bld) [#/Vol] 4.43 10*6/uL Normal 4.2-5.4 [facility] Comment on above: Performed By: #### L 503.6030, [id number], [id number] ####[facility] [address] [place], [address] RDW SD 54.1 fl High 35.1-43.9 [facility] Comment on above: Performed By: #### L 503.6030, [id number], [id number] ####[facility] [address] [place], [address] WBC (Bld) [#/Vol] 13.2 10*3/uL High 4.4-11.0 [facility] Comment on above: Performed By: #### L 503.6030, [id number], L100.0500 ####[facility] [address] [place], [address] Comprehensive Metabolic Prof dcon 06-10-2024 Albumin [Mass/Vol] 2.7 g/dL Low 3.2-5.0 [facility] Comment on above: Performed By: #### L 503.6030, [id number], L100.0500 ####[facility] [address] [place], [address] Albumin/Globulin [Mass ratio] 0.8 {ratio} Low 0.9-2.4 [facility] Comment on above: Performed By: #### L 503.6030, [id number], L100.0500 ####[facility] [address] [place], [address] ALK P 103 U/L Normal 45-117 [facility] Comment on above: Performed By: #### L 503.6030, [id number], L100.0500 ####[facility] [address] [place], [address] ALT [Catalytic activity/Vol] 19 U/L Normal 13-56 [facility] Comment on above: Performed By: #### L 503.6030, [id number], L100.0500 ####[facility] [address] [place], [address] AST [Catalytic activity/Vol] 15 U/L Normal 15-37 [facility] Comment on above: Performed By: #### L 503.6030, [id number], L100.0500 ####[facility] [address] [place], [address] Bilirubin [Mass/Vol] 0.30 mg/dL Normal 0.20-1.00 [facility] Comment on above: Result Comment: For patients on eltrombopag therapy, use of Dimension Manson TBIL is not recommended. Performed By: #### L 503.6030, [id number], L100.0500 ####[facility] [address] [place], [address] BUN/CRE 11.1 RATIO Normal 10-20 [facility] Comment on above: Performed By: #### L 503.6030, [id number], L100.0500 ####[facility] [address] [place], [address] CA,Total 8.9 mg/dL Normal 8.5-10.1 [facility] Comment on above: Performed By: #### L 503.6030, [id number], L100.0500 ####[facility] [address] [place], [address] Chloride [Moles/Vol] 105 mmol/L Normal 98-107 [facility] Comment on above: Performed By: #### L 503.6030, [id number], L100.0500 ####[facility] [address] [place], [address] CO2 [Moles/Vol] 31.0 mmol/L Normal 21.0-32.0 [facility] Comment on above: Performed By: #### L 503.6030, [id number], L100.0500 ####[facility] [address] [place], [address] Creatinine [Mass/Vol] 0.72 mg/dL Normal 0.55-1.02 [place] Comment on above: Result Comment: The validity of the calculated GFR GFRAA in patients over70 years has not been determined. Clinical correlation isessential. Performed By: #### L 503.6030, [id number], L100.0500 ####[facility] [address] [place], [address] EST GFR - AA 104 mL/min Normal >60 [facility] Comment on above: Result Comment: Afri can Ivorian GFR Calc Performed By: #### L 503.6030, [id number], L100.0500 ####[facility] [address] [place], [address] GAP 2 Low 5-15 [facility] Comment on above: Performed By: #### L 503.6030, [id number], L100.0500 ####[facility] [address] [place], [address] GFR/1.73 sq M.predicted among non-blacks MDRD (S/P/Bld) [Vol rate/Area] 86 mL/min/{1.73_m2} Normal >60 [facility] Comment on above: Result Comment: Non- GFR Calc Performed By: #### L 503.6030, [id number], L100.0500 ####[facility] [address] [place], [address] Globulin (S) [Mass/Vol] 3.5 g/dL Normal 2.2-4.2 [facility] Comment on above: Performed By: #### L 503.6030, [id number], L100.0500 ####[facility] [address] [place], [address] Glucose [Mass/Vol] 94 mg/dL Normal 74-106 [facility] Comment on above: Performed By: #### L 503.6030, [id number], L100.0500 ####[facility] [address] [place], [address] Potassium [Moles/Vol] 4.2 mmol/L Normal 3.5-5.1 [place] Comment on above: Performed By: #### L 503.6030, [id number], L100.0500 ####[facility] [address] [place], [address] Sodium [Moles/Vol] 138 mmol/L Normal 136-145 [facility] Comment on above: Performed By: #### L 503.6030, [id number], L100.0500 ####[facility] [address] [place], [address] T PROT 6.2 g/dL Low 6.4-8.2 [facility] Comment on above: Performed By: #### L 503.6030, [id number], L100.0500 ####[facility] [address] [place], [address] Urea nitrogen [Mass/Vol] 8 mg/dL Normal 7-18 [facility] Comment on above: Performed By: #### L 503.6030, [id number], L100.0500 ####[facility] [address] [place], [address] Iron+Iron Binding Capacityon 06-10-2024 Iron [Mass/Vol] 27 ug/dL Low 50-170 [facility] Comment on above: Performed By: #### L 503.6030, [id number], L100.0500 ####[facility] [address] [place], [address] IRON SATURATION 8.2 Low 15.0-55.0 [facility] Comment on above: Performed By: #### L 503.6030, [id number], L100.0500 ####[facility] [address] [place], [address] TIBC 330 ug/dL Normal 250-450 [facility] Comment on above: Performed By: #### L 503.6030, [id number], L100.0500 ####[facility] [address] [place], [address] MR/BMS.BVSon 06-08-2024 MR/BMS.BVS Normal [facility] No Panel InformationOrdered By: Katie Retana on 03-07-2024 Estimated GFR (MDRD) Amer 102 mL/min >60 [facility] Comment on above: GFR Calc Estimated GFR (MDRD) Non-Af Amer 85 mL/min >60 [facility] Comment on above: Non- GFR Calc Serum or plasma creatinine m easurement (mass/volume)Ordered By: Katie Retana on 03-07-2024 Creatinine [Mass/Vol] 0.73 mg/dL 0.55-1.02 [place] Comment on above: The validity of the calculated GFR & GFRAA in patients over 70 years has not been determined. Clinical correlation is essential. Basophil percentageOrdered B y: Carline Ashley on 01-27-2024 Bilirubin [Mass/Vol] 0.40 mg/dL 0.20-1.00 [facility] Comment on above: For patients on eltr ombopag therapy, use of Dimension Manson TBIL is not recommended. Chloride [Moles/Vol] 100 mmol/L 98-107 [facility] Cholesterol [Mass/Vol] 141 mg/dL <200 [facility] Comment on above: <200 mg/dL Desirable 200-240 mg/dL Borderline >240 mg/dL High Risk Glucose [Mass/Vol] 93 mg/dL 74-106 [facility] Hemoglobin (Bld) [Mass/Vol] 9.7 g/dL 12.0-15.0 [facility] Potassium [Moles/Vol] 3.2 mmol/L 3.5-5.1 [place] Protein [Mass/Vol] 7.8 g/dL 6.4-8.2 [facility] Sodium [Moles/Vol] 136 mmol/L 136-145 [facility] Triglyceride [Mass/Vol] 132 mg/dL <199 [facility] Comment on above: The drugs N-Acetylcy steine and Metamizole may falsely depress this assay.Serum Triglycerides Reference Interval Normal <150 mg/dL Borderline high 150 - 199 mg/dL High 200 - 499 mg/dL Very High > or = 500 mg/dL WBC (Bld) [#/Vol] 11.4 10*3/uL 4.4-11.0 [facility] Determination of erythrocyte mean corpuscular volume (MCV)Ordered By: Carline Ashley on 01-27-2024 MCV (RBC) [Entitic vol] 86.9 fL 81-99 [facility] Erythrocyte distribution wid th ratioOrdered By: Carline Ashley on 01-27-2024 Erythrocyte distribution width (RBC) [Ratio] 14.4 % 11.6-14.6 [facility] Erythrocyte distribution wid th standard deviationOrdered By: Carline Ashley on 01-27-2024 Erythrocyte distribution width (RBC) [Entitic vol] 45.2 fL 35.1-43.9 [facility] Hematocrit Auto (Bld) [Volum e fraction]Ordered By: Carline Ashley on 01-27-2024 Hematocrit (Bld) [Volume fraction] 31.3 % 37-47 [facility] Laboratory - Chemistry and C hemistry - challengeOrdered By: Carline Ashley on 01-27-2024 Albumin/Globulin [Mass ratio] 0.6 {ratio} 0.9-2.4 [facility] ALP [Catalytic activity/Vol] 76 U/L 45-117 [facility] ALT [Catalytic activity/Vol] 23 U/L 13-56 [facility] Cholesterol in HDL [Mass/Vol] 38 mg/dL >40 [facility] Comment on above: The drugs N-Acetylcy steine and Metamizole may falsely depress this assay. Reference Range HDL <40 mg/dL Low HDL Cholesterol HDL >or= 60 mg/dL High HDL Cholesterol Cholesterol in LDL [Mass/Vol] 77 mg/dL 0-130 [facility] CO2 [Moles/Vol] 26.0 mmol/L 21.0-32.0 [facility] Globulin (S) [Mass/Vol] 4.9 g/dL 2.2-4.2 [facility] Urea nitrogen/Creatinine [Mass ratio] 9.2 mg/mg 10-20 [facility] Laboratory - Hematology and Cell countsOrdered By: Carline Ashley on 01-27-2024 MCH (RBC) [Entitic mass] 26.9 pg 27.0-32.0 [facility] MCHC (RBC) [Mass/Vol] 31.0 g/dL 32-36 [place] Platelet mean volume (Bld) [Entitic vol] 10.6 fL 6.2-12.0 [facility] Platelets (Bld) [#/Vol] 569 10*3/uL 150-450 [facility] No Panel InformationOrdered By: Carline Ashley on 01-27-2024 Estimated GFR (MDRD) Amer 58 mL/min >60 [facility] Comment on above: GFR Calc Estimated GFR (MDRD) Non-Af Amer 48 mL/min >60 [facility] Comment on above: Non- GFR Calc Urine Microalbumin/Creatinine Ratio 71.0 mg/g CRE <30 [facility] Vitamin D 25-Hydroxy 6.4 ng/mL [facility] Comment on above: Vitamin D 25(OH) Sta tus Range Deficiency <20 ng/mL (50nmol/L) Insufficiency 20 - 30 ng/mL (50 - 75 nmol/L) Sufficiency 30 - 100 ng/mL (75 - 250 nmol/L) Toxicity >100 ng/mL (>250 nmol/L) VLDL Cholesterol 26 mg/dL 5-40 [facility] RBC Auto (Bld) [#/Vol]Ordere d By: Carline Ashley on 01-27-2024 RBC (Bld) [#/Vol] 3.60 10*6/uL 4.2-5.4 [facility] Serum or plasma calcium rosa urement (mass/volume)Ordered By: Carline Ashley on 01-27-2024 Calcium [Mass/Vol] 9.2 mg/dL 8.5-10.1 [facility] Serum or plasma creatinine m easurement (mass/volume)Ordered By: Carline Ashley on 01-27-2024 Creatinine [Mass/Vol] 1.19 mg/dL 0.55-1.02 [place] Comment on above: The validity of the calculated GFR & GFRAA in patients over 70 years has not been determined. Clinical correlation is essential. Serum or plasma urea nitroge n measurement (mass/volume)Ordered By: Carline Ashley on 01-27-2024 Urea nitrogen [Mass/Vol] 11 mg/dL 7-18 [facility] Thin prep Papanicolaou smear with manual screeningOrdered By: Carline Ashley on 01-27-2024 Thin prep Papanicolaou smear with manual screening 2.9 g/dL 3.2-5.0 [facility] Thin prep Papanicolaou smear with manual screening 25 U/L 15-37 [facility] Thin prep Papanicolaou smear with manual screening 10 5-15 [facility] Thin prep Papanicolaou smear with manual screening 110.0 mg/L NO RANGE EST. [facility] Urine creatinine measurement (mass/volume)Ordered By: aCrline Ashley on 01-27-2024 Creatinine (U) [Mass/Vol] 155.00 mg/dL NO RANGE EST. [facility] Activated partial thrombopla stin time (aPTT) in platelet poor plasma by coagulation aOrdered By: Selvin Frost on 01-22-2024 aPTT Coag (PPP) [Time] 204.0 s 24.1-36.2 [facility] Comment on above: CRITICAL VALUE VERIF IED. CALLED TO [id number]/08/24 [id number] [place].RESULTS READ BACK BY SAME. Basophil percentageOrdered B y: Armani Moses on 01-22-2024 Chloride [Moles/Vol] 104 mmol/L 98-107 [facility] Glucose [Mass/Vol] 155 mg/dL 74-106 [facility] Comment on above: Fasting Glucose resu lt greater than or equal to 126 mg/dL suggests DIABETES MELLITUS per A.D.A. criteria. Hemoglobin (Bld) [Mass/Vol] 9.0 g/dL 12.0-15.0 [facility] Potassium [Moles/Vol] 3.7 mmol/L 3.5-5.1 [place] Sodium [Moles/Vol] 140 mmol/L 136-145 [facility] WBC (Bld) [#/Vol] 13.7 10*3/uL 4.4-11.0 [facility] Determination of erythrocyte mean corpuscular volume (MCV)Ordered By: Armani Moses on 01-22-2024 MCV (RBC) [Entitic vol] 89.3 fL 81-99 [facility] Erythrocyte distribution wid th ratioOrdered By: Armani Moses on 01-22-2024 Erythrocyte distribution width (RBC) [Ratio] 14.3 % 11.6-14.6 [facility] Erythrocyte distribution wid th standard deviationOrdered By: Armani Moses on 01-22-2024 Erythrocyte distribution width (RBC) [Entitic vol] 46.6 fL 35.1-43.9 [facility] Hematocrit Auto (Bld) [Volum e fraction]Ordered By: Armani Moses on 01-22-2024 Hematocrit (Bld) [Volume fraction] 29.2 % 37-47 [facility] Laboratory - Chemistry and C hemistry - challengeOrdered By: Armani Moses on 01-22-2024 CO2 [Moles/Vol] 31.0 mmol/L 21.0-32.0 [facility] Urea nitrogen/Creatinine [Mass ratio] 8.2 mg/mg 10-20 [facility] Laboratory - Hematology and Cell countsOrdered By: Armani Moses on 01-22-2024 MCH (RBC) [Entitic mass] 27.5 pg 27.0-32.0 [facility] MCHC (RBC) [Mass/Vol] 30.8 g/dL 32-36 [place] Platelet mean volume (Bld) [Entitic vol] 10.1 fL 6.2-12.0 [facility] Platelets (Bld) [#/Vol] 424 10*3/uL 150-450 [facility] No Panel InformationOrdered By: Armani Moses on 01-22-2024 Estimated Creatinine Clearance Calc 31.52 ml/min [facility] Estimated GFR (MDRD) Amer 39 mL/min >60 [facility] Comment on above: GFR Calc Estimated GFR (MDRD) Non-Af Amer 32 mL/min >60 [facility] Comment on above: Non- GFR Calc RBC Auto (Bld) [#/Vol]Ordere d By: Armani Moses on 01-22-2024 RBC (Bld) [#/Vol] 3.27 10*6/uL 4.2-5.4 [facility] Serum or plasma calcium rosa urement (mass/volume)Ordered By: Armani Moses on 01-22-2024 Calcium [Mass/Vol] 8.3 mg/dL 8.5-10.1 [facility] Serum or plasma creatinine m easurement (mass/volume)Ordered By: Armani Moses on 01-22-2024 Creatinine [Mass/Vol] 1.70 mg/dL 0.55-1.02 [place] Comment on above: The validity of the calculated GFR & GFRAA in patients over 70 years has not been determined. Clinical correlation is essential. Serum or plasma urea nitroge n measurement (mass/volume)Ordered By: Armani Moses on 01-22-2024 Urea nitrogen [Mass/Vol] 14 mg/dL 7-18 [facility] Thin prep Papanicolaou smear with manual screeningOrdered By: Armani Moses on 01-22-2024 Thin prep Papanicolaou smear with manual screening 5 5-15 [facility] Laboratory - Chemistry and C hemistry - challengeOrdered By: Armani Moses on 01-19-2024 Magnesium [Mass/Vol] 1.8 mg/dL 1.6-2.6 [facility] Clostridioides difficile nuc leic acid assay by PCROrdered By: Selvin Barrera on 01-16-2024 C. difficile DNA FARIHA+probe Ql (Unsp spec) [facility] C. difficile DNA FARIHA+probe Ql (Unsp spec) [facility] Absolute lymphocyte countOrd ered By: Katie Retana on 01-15-2024 Lymphocytes Auto (Unsp spec) [#/Vol] 0.79 10*3/uL 0.83-4.51 [facility] Automated lymphocyte count a s percentage of total leukocytesOrdered By: Katie Retana on 01-15-2024 Lymphocytes/100 WBC Auto (Unsp spec) 9.7 % 19-41 [facility] Basophil percentageOrdered B y: Katie Retana on 01-15-2024 Basophils/100 WBC (Bld) 0.6 % 0-1 [facility] Eosinophils/100 WBC (Bld) 1.6 % 0-5 [facility] Monocytes/100 WBC (Bld) 10.3 % 0-10 [facility] Neutrophils (Bld) [#/Vol] 6.3 10*3/uL 2.0-7.7 [facility] Neutrophils/100 WBC (Bld) 77.3 % 47-70 [facility] Immature granulocytes/100 WB C Auto (Bld)Ordered By: Katie Retana on 01-15-2024 Immature granulocytes/100 WBC (Bld) 0.500 % 0.0-0.9 [facility] Comment on above: IG% - Immature Granu locytes (promyelocytes, myelocytes and metamyelocytes) > 1% indicates that a LEFT SHIFT is Present. Laboratory - Hematology and Cell countsOrdered By: Katie Retana on 01-15-2024 Nucleated RBC/100 WBC (Bld) [Ratio] 0 % 0-5 [facility] No Panel InformationOrdered By: Armani Moses on 01-14-2024 Activated Clotting Time 228 sec 74-137 [facility] No Panel InformationOrdered By: Selvin Barrera on 01-14-2024 Activated Clotting Time 228 sec 74-137 [facility] No Panel InformationOrdered By: Lynn Enriquez on 01-14-2024 Complement C3 136 mg/dL 82-167 [facility] Comment on above: Performed at: [address] [id number] Director: Prabhu Sorenson PhD, Phone: [phone] Serum or plasma vancomycin m easurement (mass/volume)Ordered By: Kevin Souza on 01-14-2024 Vancomycin [Mass/Vol] 18.5 ug/mL 0.0-15.0 [place] Comment on above: VANCOMYCIN STANDARD DRUG THERAPY: CRITICAL VALUE IS > 15.0 mg/L VANCOMYCIN HIGH INTENSITY THERAPY: CRITICAL VALUE IS > 20.0 mg/L PLEASE CONTACT PHARMACY SERVICES (#[id number]) FOR INTERPRETATIONOF RESULTS. THIS RESULT DOES NOT REPRESENT A PEAK OR TROUGHLEVEL FOR THIS DRUG. Basophil percentageOrdered B y: Lynn Enriquez on 01-13-2024 Basophil percentage 0-5 SEEN /hpf 0-5 [facility] Basophil percentageOrdered B y: Selvin Barrera on 01-13-2024 Creatinine (U) [Mass/Vol] 26.60 mg/dL NO RANGE EST. [facility] Bilirubin Test strip Ql (U)O rdered By: Lynn Enriquez on 01-13-2024 Bilirubin Ql (U) Negative Negative [facility] Ketones Test strip Ql (U)Ord ered By: Lynn Enriquez on 01-13-2024 Ketones Ql (U) 5 mg/dl Negative [facility] Laboratory - Chemistry and C hemistry - challengeOrdered By: Selvin Barrera on 01-13-2024 Sodium (U) [Moles/Vol] 83 mmol/L Not Establ. [facility] Mucus LM Ql (Urine sed)Order ed By: Lynn Enriquez on 01-13-2024 Mucus Ql (Urine sed) 0 SEEN /hpf [place] Nitrite Test strip Ql (U)Ord ered By: Lynn Enriquez on 01-13-2024 Nitrite Ql (U) Negative Negative [facility] No Panel InformationOrdered By: Lynn Enriquez on 01-13-2024 Urine RBC 0-5 SEEN /hpf 0-5 [facility] Protein Test strip Ql (U)Ord ered By: Lynn Enriquez on 01-13-2024 Protein Ql (U) Negative Negative [facility] Squamous epithelial cells de tection in urine sediment by light microscopyOrdered By: Lynn Enriquez on 01-13-2024 Epithelial cells.squamous LM Ql (Urine sed) 0-5 SEEN /hpf 5-10 [facility] Urine blood detectionOrdered By: Lynn Enriquez on 01-13-2024 RBC Ql (U) 25 /ul Negative [facility] Urine clarityOrdered By: Reynaldo Enriquez on 01-13-2024 Clarity (U) Sl. Cloudy Clear [facility] Urine color determinationOrd ered By: Lynn Enriquez on 01-13-2024 Color (U) Yellow Yellow [facility] Urine glucose detectionOrder ed By: Lynn Enriquez on 01-13-2024 Glucose Ql (U) Normal mg/dl Normal [facility] Urine leukocyte esterase det ection by dipstickOrdered By: Lynn Enriquez on 01-13-2024 Leukocyte esterase Test strip Ql (U) Negative Negative [facility] Urine pHOrdered By: Jagdeep Enriquez on 01-13-2024 pH (U) 6.5 [pH] 5.0 - 8.0 [facility] Urine sediment bacteria coun t by microscopy (number/high power field)Ordered By: Lynn Enriquez on 01-13-2024 Bacteria LM.HPF (Urine sed) [#/Area] RARE /hpf None Seen [facility] Urine sediment yeast count b y microscopy (number/high powered field)Ordered By: Lynn Enriquez on 01-13-2024 Yeast LM.HPF (Urine sed) [#/Area] RARE /hpf None Seen [facility] Urine specific gravity measu rementOrdered By: Lynn Enriquez on 01-13-2024 Specific gravity (U) [Rel density] 1.010 1.002-1.03 0 [facility] Urine urobilinogen measureme ntOrdered By: Lynn Enriquez on 01-13-2024 Urobilinogen Ql (U) Normal mg/dl Normal [place] Serum or plasma trough vanco mycin levelOrdered By: Liz Murillo on 01-12-2024 Vancomycin trough [Mass/Vol] 35.2 ug/mL 5.0-15.0 [facility] Comment on above: VANCOMYCIN STANDARED DRUG THERAPY TROUGH LEVEL: 5.0 - 15.0 mg/L VANCOMYCIN HIGH INTENSITY THERAPY TROUGH LEVEL: 15.0 - 20.0 mg/L High Intensity therapy recommended for serious lifethreatening infections include:- Gkviqigoze-Pwrljbehetts-Vgwnmtaka (Ventilator/Healtcare Associated)-Sepsis PLEASE CONTACT PHARMACY SERVICES (#[id number]) FOR INTERPRETATIONOF RESULTS. Anaerobic cultureOrdered By: Momo Camacho on 01-10-2024 Bacteria identified Anaer cx Nom (Unsp spec) No anaerobic bacteria isolated. [facility] Bacteria identified Anaer cx Nom (Unsp spec) No anaerobic bacteria isolated. [facility] Bacteria identified Cx Nom ( Wound)Ordered By: Momo Camacho on 01-10-2024 Wound Culture Raoultella planticola [facility] Wound Culture Staphylococcus auricularis [facility] Wound Culture [facility] Wound Culture Staphylococcus auricularis [facility] Fungus cultureOrdered By: Romi Camacho on 01-10-2024 Fungus identified Cx Nom (Unsp spec) [facility] Fungus stainOrdered By: Body Camacho on 01-10-2024 Fungus identified Fungus stain Nom (Unsp spec) [facility] Gram stain for investigation of transfusion reactionOrdered By: Momo Camacho on 01-10-2024 Microscopic observation Gram stain Nom (Unsp spec) [facility] Microscopic observation Gram stain Nom (Unsp spec) [facility] Basophil percentageOrdered B y: Liz Murillo on 01-09-2024 Cholesterol [Mass/Vol] 150 mg/dL <200 [facility] Comment on above: <200 mg/dL Desirable 200-240 mg/dL Borderline >240 mg/dL High Risk Triglyceride [Mass/Vol] 116 mg/dL <199 [facility] Comment on above: The drugs N-Acetylcy steine and Metamizole may falsely depress this assay.Serum Triglycerides Reference Interval Normal <150 mg/dL Borderline high 150 - 199 mg/dL High 200 - 499 mg/dL Very High > or = 500 mg/dL Laboratory - Chemistry and C hemistry - challengeOrdered By: Liz Murillo on 01-09-2024 Cholesterol in HDL [Mass/Vol] 38 mg/dL >40 [facility] Comment on above: The drugs N-Acetylcy steine and Metamizole may falsely depress this assay. Reference Range HDL <40 mg/dL Low HDL Cholesterol HDL >or= 60 mg/dL High HDL Cholesterol Cholesterol in LDL [Mass/Vol] 89 mg/dL 0-130 [facility] Laboratory - CoagulationOrde red By: Liz Murillo on 01-09-2024 INR Coag (Bld) [Relative time] 1.0 {INR} [facility] PT Coag (PPP) [Time] 13.5 s 11.7-14.9 [facility] No Panel InformationOrdered By: Liz Murillo on 01-09-2024 VLDL Cholesterol 23 mg/dL 5-40 [facility] Absolute lymphocyte countOrd ered By: Josiane Tucker on 01-08-2024 Lymphocytes Auto (Unsp spec) [#/Vol] 1.37 10*3/uL 0.83-4.51 [facility] Automated lymphocyte count a s percentage of total leukocytesOrdered By: Josiane Tucker on 01-08-2024 Lymphocytes/100 WBC Auto (Unsp spec) 17.2 % 19-41 [facility] Basophil percentageOrdered B y: Josiane Tucker on 01-08-2024 Basophils/100 WBC (Bld) 0.8 % 0-1 [facility] Chloride [Moles/Vol] 106 mmol/L 98-107 [facility] Eosinophils/100 WBC (Bld) 1.0 % 0-5 [facility] Glucose [Mass/Vol] 84 mg/dL 74-106 [facility] Hemoglobin (Bld) [Mass/Vol] 13.4 g/dL 12.0-15.0 [facility] Monocytes/100 WBC (Bld) 7.0 % 0-10 [facility] Neutrophils (Bld) [#/Vol] 5.9 10*3/uL 2.0-7.7 [facility] Neutrophils/100 WBC (Bld) 73.6 % 47-70 [facility] Potassium [Moles/Vol] 3.7 mmol/L 3.5-5.1 [place] Sodium [Moles/Vol] 139 mmol/L 136-145 [facility] WBC (Bld) [#/Vol] 8.0 10*3/uL 4.4-11.0 [facility] Determination of erythrocyte mean corpuscular volume (MCV)Ordered By: Josiane Tucker on 01-08-2024 MCV (RBC) [Entitic vol] 88.6 fL 81-99 [facility] Erythrocyte distribution wid th ratioOrdered By: Josiane Tucker on 01-08-2024 Erythrocyte distribution width (RBC) [Ratio] 14.8 % 11.6-14.6 [facility] Erythrocyte distribution wid th standard deviationOrdered By: Josiane Tucker on 01-08-2024 Erythrocyte distribution width (RBC) [Entitic vol] 48.0 fL 35.1-43.9 [facility] Erythrocyte sedimentation ra teOrdered By: Josiane Tucker on 01-08-2024 ESR (Bld) [Velocity] 27 mm/h 0-30 [facility] Hematocrit Auto (Bld) [Volum e fraction]Ordered By: Josiane Tucker on 01-08-2024 Hematocrit (Bld) [Volume fraction] 43.4 % 37-47 [facility] Immature granulocytes/100 WB C Auto (Bld)Ordered By: Josiane Tucker on 01-08-2024 Immature granulocytes/100 WBC (Bld) 0.400 % 0.0-0.9 [facility] Comment on above: IG% - Immature Granu locytes (promyelocytes, myelocytes and metamyelocytes) > 1% indicates that a LEFT SHIFT is Present. Laboratory - Chemistry and C hemistry - challengeOrdered By: Josiane Tucker on 01-08-2024 CO2 [Moles/Vol] 30.0 mmol/L 21.0-32.0 [facility] Urea nitrogen/Creatinine [Mass ratio] 16.4 mg/mg 10-20 [facility] Laboratory - Hematology and Cell countsOrdered By: Josiane Tucker on 01-08-2024 MCH (RBC) [Entitic mass] 27.3 pg 27.0-32.0 [facility] MCHC (RBC) [Mass/Vol] 30.9 g/dL 32-36 [place] Nucleated RBC/100 WBC (Bld) [Ratio] 0 % 0-5 [facility] Platelet mean volume (Bld) [Entitic vol] 9.9 fL 6.2-12.0 [facility] Platelets (Bld) [#/Vol] 327 10*3/uL 150-450 [facility] Laboratory - Microbiology an d Antimicrobial susceptibilityOrdered By: Josiane Tucker on 01-08-2024 Bacteria identified Cx Nom (Bld) No growth in 5 days. [facility] Bacteria identified Cx Nom (Bld) No growth in 5 days. [facility] No Panel InformationOrdered By: Josiane Tucker on 01-08-2024 C-Reactive Protein Extended Range 3.94 mg/L 0.0-3.0 [facility] Comment on above: C-Reactive Protein ( CRP) provides useful information for thediagnosis, therapy and monitoring of inflammatory processesand associated diseases. For the evaluation of Relative Riskfor Cardiovascular Disease, a High Sensitivity CRP (HSCRP)should be ordered. Estimated Creatinine Clearance Calc 66.90 ml/min [facility] Estimated GFR (MDRD) Amer 113 mL/min >60 [facility] Comment on above: GFR Calc Estimated GFR (MDRD) Non-Af Amer 94 mL/min >60 [facility] Comment on above: Non- GFR Calc RBC Auto (Bld) [#/Vol]Ordere d By: Josiane Tucker on 01-08-2024 RBC (Bld) [#/Vol] 4.90 10*6/uL 4.2-5.4 [facility] Serum or plasma calcium rosa urement (mass/volume)Ordered By: Josiane Tucker on 01-08-2024 Calcium [Mass/Vol] 9.4 mg/dL 8.5-10.1 [facility] Serum or plasma creatinine m easurement (mass/volume)Ordered By: Josiane Tucker on 01-08-2024 Creatinine [Mass/Vol] 0.67 mg/dL 0.55-1.02 [place] Comment on above: The validity of the calculated GFR & GFRAA in patients over 70 years has not been determined. Clinical correlation is essential. Serum or plasma urea nitroge n measurement (mass/volume)Ordered By: Josiane Tucker on 01-08-2024 Urea nitrogen [Mass/Vol] 11 mg/dL - [facility] Thin prep Papanicolaou smear with manual screeningOrdered By: Josiane Tucker on 01-08-2024 Thin prep Papanicolaou smear with manual screening 3 5-15 [facility] No Panel InformationOrdered By: Jeff Song on 12-18-2023 Estimated GFR (MDRD) Amer 111 mL/min >60 [facility] Comment on above: GFR Calc Estimated GFR (MDRD) Non-Af Amer 92 mL/min >60 [facility] Comment on above: Non- GFR Calc Serum or plasma creatinine m easurement (mass/volume)Ordered By: Jeff Song on 12-18-2023 Creatinine [Mass/Vol] 0.68 mg/dL 0.55-1.02 [place] Comment on above: The validity of the calculated GFR & GFRAA in patients over 70 years has not been determined. Clinical correlation is essential. Serum or plasma urea nitroge n measurement (mass/volume)Ordered By: Jeff Song on 12-18-2023 Urea nitrogen [Mass/Vol] 13 mg/dL 06-02 [facility] Basophil percentageOrdered B y: Carline Ashley on 10-12-2023 Bilirubin [Mass/Vol] 0.40 mg/dL 0.20-1.00 [facility] Comment on above: For patients on eltr ombopag therapy, use of Dimension [place] TBIL is not recommended. Chloride [Moles/Vol] 104 mmol/L 98-107 [facility] Cholesterol [Mass/Vol] 232 mg/dL <200 [facility] Comment on above: <200 mg/dL Desirable 200-240 mg/dL Borderline >240 mg/dL High Risk Glucose [Mass/Vol] 97 mg/dL 74-106 [facility] Potassium [Moles/Vol] 3.8 mmol/L 3.5-5.1 [place] Protein [Mass/Vol] 7.5 g/dL 6.4-8.2 [facility] Sodium [Moles/Vol] 139 mmol/L 136-145 [facility] Triglyceride [Mass/Vol] 153 mg/dL <199 [facility] Comment on above: The drugs N-Acetylcy steine and Metamizole may falsely depress this assay.Serum Triglycerides Reference Interval Normal <150 mg/dL Borderline high 150 - 199 mg/dL High 200 - 499 mg/dL Very High > or = 500 mg/dL WBC (Bld) [#/Vol] 9.1 10*3/uL 4.4-11.0 [facility] Blood erythrocytes count (nu mber/volume)Ordered By: Carline Ashley on 10-12-2023 RBC (Bld) [#/Vol] 5.03 10*6/uL 4.2-5.4 [facility] Blood hemoglobin measurement (mass/volume)Ordered By: Carline Ashley on 10-12-2023 Hemoglobin (Bld) [Mass/Vol] 13.7 g/dL 12.0-15.0 [facility] Blood platelet mean volumeOr dered By: Carline Ashley on 10-12-2023 Platelet mean volume (Bld) [Entitic vol] 10.2 fL 6.2-12.0 [facility] Determination of erythrocyte mean corpuscular volume (MCV)Ordered By: Carline Ashley on 10-12-2023 MCV (RBC) [Entitic vol] 90.9 fL 81-99 [facility] Hematocrit Auto (Bld) [Volum e fraction]Ordered By: Carline Ashley on 10-12-2023 Hematocrit (Bld) [Volume fraction] 45.7 % 37-47 [facility] Laboratory - Chemistry and C hemistry - challengeOrdered By: Carline Ashley on 10-12-2023 ALP [Catalytic activity/Vol] 94 U/L 45-117 [facility] ALT [Catalytic activity/Vol] 36 U/L 13-56 [facility] CO2 [Moles/Vol] 28.0 mmol/L 21.0-32.0 [facility] Globulin (S) [Mass/Vol] 3.9 g/dL 2.2-4.2 [facility] Urea nitrogen/Creatinine [Mass ratio] 20.9 mg/mg 10-20 [facility] Laboratory - Hematology and Cell countsOrdered By: Carline Ashley on 10-12-2023 Erythrocyte distribution width (RBC) [Entitic vol] 48.4 fL 35.1-43.9 [facility] Erythrocyte distribution width (RBC) [Ratio] 14.5 % 11.6-14.6 [facility] MCH (RBC) [Entitic mass] 27.2 pg 27.0-32.0 [facility] MCHC Auto (RBC) [Mass/Vol]Or dered By: Carline Ashley on 10-12-2023 MCHC (RBC) [Mass/Vol] 30.0 g/dL 32-36 [place] No Panel InformationOrdered By: Carline Ashley on 10-12-2023 Estimated GFR (MDRD) Amer 113 mL/min >60 [facility] Comment on above: GFR Calc Estimated GFR (MDRD) Non-Af Amer 94 mL/min >60 [facility] Comment on above: Non- GFR Calc Parathyroid Hormone (Intact) 149.2 pg/mL 18.4-80.1 [facility] Thyroid Stimulating Hormone (TSH) 2.28 uIU/mL 0.358-3.74 [facility] Urine Microalbumin/Creatinine Ratio 64.8 mg/g CRE <30 [facility] Vitamin D 25-Hydroxy 10.2 ng/mL [facility] Comment on above: Vitamin D 25(OH) Sta tus Range Deficiency <20 ng/mL (50nmol/L) Insufficiency 20 - 30 ng/mL (50 - 75 nmol/L) Sufficiency 30 - 100 ng/mL (75 - 250 nmol/L) Toxicity >100 ng/mL (>250 nmol/L) Plasma renin measurement (en zymatic activity/volume)Ordered By: Carline Ashley on 10-12-2023 Renin (P) [Catalytic activity/Vol] 1.341 ng/mL/hr 0.167-5.38 0 [facility] Comment on above: Performed at: [address] [id number] Director: Chris Mahajan MD, Phone: [phone] Platelets bldOrdered By: Joshua waters Dion on 10-12-2023 Platelets (Bld) [#/Vol] 348 10*3/uL 150-450 [facility] Serum or plasma albumin rosa urement (mass/volume)Ordered By: Carline Ashley on 10-12-2023 Albumin [Mass/Vol] 3.6 g/dL 3.2-5.0 [facility] Serum or plasma albumin/glob ulin mass ratioOrdered By: Carline Ashley on 10-12-2023 Albumin/Globulin [Mass ratio] 0.9 {ratio} 0.9-2.4 [facility] Serum or plasma calcium rosa urement (mass/volume)Ordered By: Carline Ashley on 10-12-2023 Calcium [Mass/Vol] 8.8 mg/dL 8.5-10.1 [facility] Serum or plasma cholesterol in HDL measurement (mass/volume)Ordered By: Carline Ashley on 10-12-2023 Cholesterol in HDL [Mass/Vol] 37 mg/dL >40 [facility] Comment on above: The drugs N-Acetylcy steine and Metamizole may falsely depress this assay. Reference Range HDL <40 mg/dL Low HDL Cholesterol HDL >or= 60 mg/dL High HDL Cholesterol Serum or plasma cholesterol in VLDL measurement (mass/volume)Ordered By: Carline Ashley on 10-12-2023 Cholesterol in VLDL [Mass/Vol] 31 mg/dL 5-40 [facility] Serum or plasma creatinine m easurement (mass/volume)Ordered By: Carline Ashley on 10-12-2023 Creatinine [Mass/Vol] 0.67 mg/dL 0.55-1.02 [place] Comment on above: The validity of the calculated GFR & GFRAA in patients over 70 years has not been determined. Clinical correlation is essential. Serum or plasma low density lipoprotein (LDL) cholesterol measurement (mass/volume)Ordered By: Carline Ashley on 10-12-2023 Cholesterol in LDL [Mass/Vol] 164 mg/dL 0-130 [facility] Serum or plasma urea nitroge n measurement (mass/volume)Ordered By: Carline Ashley on 10-12-2023 Urea nitrogen [Mass/Vol] 14 mg/dL 7-18 [facility] Thin prep Papanicolaou smear with manual screeningOrdered By: Carline Ashley on 10-12-2023 Thin prep Papanicolaou smear with manual screening 14 U/L 15-37 [facility] Thin prep Papanicolaou smear with manual screening 7 5-15 [facility] Thin prep Papanicolaou smear with manual screening 116.0 mg/L NO RANGE EST. [facility] Urine creatinine measurement (mass/volume)Ordered By: Carline Ashley on 10-12-2023 Creatinine (U) [Mass/Vol] 179.00 mg/dL NO RANGE EST. [facility] Whole blood hemoglobin A1c/t otal hemoglobin ratio (mass fraction)Ordered By: Carline Ashley on 10-12-2023 HbA1c (Bld) [Mass fraction] 5.4 % 3.8-5.6 [facility] Comment on above: Normal < 5.7 % Predi abetic 5.7 - 6.4 % Diabetic >or= 6.5 % Please note range changes. CNOVon 04-09-2018 CNOV Office Visit (UCWSTR) KIRKML Teague ([id number]) 1955 FDate Time Provider Department04/09/18 5:15 PM MOMO HARDY (EVELIA) WSTR During your visit today, we recorded the following information about you: Temperature Pulse Blood pressure Weight 98.9 degrees 100/minute 140/84 65.3 kgMomo Hardy APRN.CNP 04/09/2018 7:37 PM SignedSubjectiveHPIHPI Brenda Ho Macedo is a 62 year old female who presents today for CC ofbilateral calf pain. This started 1 week ago. Has tried otc medicationwithout relief. Symptoms are worsened by walking/stair. 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 No paincurrently/much worse at work and at end of day..Patient presents with:Musculoskeletal Problem: RT leg pain when standing X 1 weekPAST MEDICAL HISTORYDiagnosis Date- Malignant neoplasm of other specified sites of cervix 07/14/2006PAST SURGICAL HISTORYProcedure Laterality Date- LIGATE FALLOPIAN TUBEALLERGIES Patient has no known allergies.MEDICATIONSnapr oxen(NAPROSYN 500 MG TAB) Take one(1) tablet twice [...] oriented to person, place, and time and well-developed,well-damari shed, and in no distress. Non-toxic appearance. She does not have asickly appearance. No distress.HENT:Head: Normocephalic and atraumatic.Cardiovascular : Normal rate, regular rhythm, S1 normal, S2 [...] flag symptoms occur. Patient agreeable to treatment plan.Maya Felton APRN.CNP 04/09/2018 5:35 PM SignedASSESSMENT/PLAN:1. Muscular aches [...] standing X 1 weekPrimary Visit Diagnosis:Muscular aches [M79.1]Order(s):methylPRE DNISolone (MEDROL, JULIANA,) 4 mg Dose-PackFollow dosing instructions, [...] Status:Closed by MOMO HARDY CNP on 04/09/18 [facility] PROGRESSon 04-09-2018 PROGRESS HNO ID: [id number] thor: Momo (Evelia) Marla: (none)Author Type: Nurse PractitionerType: Progress NotesFiled: 04/09/2018 7:37 PMNote Text:SubjectiveHPIHPI Brenda Macedo is a 62 year old female who presents today for CC ofbilateral calf pain. This started 1 week ago. Has tried otc medicationwithout relief. Symptoms are worsened by walking/stair. 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 No paincurrently/much worse at work and at end of day..Patient presents with:Musculoskeletal Problem: RT leg pain when standing X 1 weekPAST MEDICAL HISTORYDiagnosis Date- Malignant neoplasm of other specified sites of cervix 07/14/2006PAST SURGICAL HISTORYProcedure Laterality Date- LIGATE FALLOPIAN TUBEALLERGIES Patient has no known allergies.MEDICATIONSnapr oxen(NAPROSYN 500 MG TAB) Take one(1) tablet twice [...] a sickly appearance. No distress.HENT:Head: Normocephalic and atraumatic.Cardiovascular : Normal rate, regular rhythm, S1 normal, S2 [...] symptoms occur. Patientagreeable to treatment plan.Momo Hardy APRN.HAT MENDER Normal [facility] Vital Signs Date Time Vital Sign Value Performing Clinician Karthikeyan ferguson 06-02-2025 08:14-0400 Body mass index (BMI) [Ratio] 34.5 kg/m2 Carline JESUS Work Phone: [facility] 06-02-2025 08:14-0400 Body temperature 97.4 [degF] Carline JESUS Work Phone: [facility] 06-02-2025 08:14-0400 Body weight 85.72 kg Carline Wellingtonpkins CATH LABORATORY TECHNICIAN-C Work Phone: [facility] 06-02-2025 08:14-0400 Diastolic blood pressure 85 mm[Hg] Carline Wellingtonpkins CATH LABORATORY TECHNICIAN-C Work Phone: [facility] 06-02-2025 08:14-0400 Heart rate 95 /min Carline Wellingtonpkins CATH LABORATORY TECHNICIAN-C Work Phone: [facility] 06-02-2025 08:14-0400 Respiratory rate 18 /min Carline Wellingtonpkins CATH LABORATORY TECHNICIAN-C Work Phone: [facility] 06-02-2025 08:14-0400 SaO2% (BldA) [Mass fraction] 99 % Carline Dion CATH LABORATORY TECHNICIAN-C Work Phone: [facility] 06-02-2025 08:14-0400 Systolic blood pressure 134 mm[Hg] Carline Ashley CATH LABORATORY TECHNICIAN-C Work Phone: [facility] 04-18-2025 07:54-0400 Body temperature 97.5 [degF] Carline Upson CATH LABORATORY TECHNICIAN-C Work Phone: [facility] 04-18-2025 07:54-0400 Diastolic blood pressure 68 mm[Hg] Carline Upson CATH LABORATORY TECHNICIAN-C Work Phone: [facility] 04-18-2025 07:54-0400 Heart rate 98 /min Carline Ashley CATH LABORATORY TECHNICIAN-C Work Phone: [facility] 04-18-2025 07:54-0400 Respiratory rate 16 /min Carline Upson CATH LABORATORY TECHNICIAN-C Work Phone: [facility] 04-18-2025 07:54-0400 SaO2% (BldA) [Mass fraction] 94 % Carline Ashley CATH LABORATORY TECHNICIAN-C Work Phone: [facility] 04-18-2025 07:54-0400 Systolic blood pressure 127 mm[Hg] Carline Ashley CATH LABORATORY TECHNICIAN-C Work Phone: [facility] 04-18-2025 07:50-0400 Inhaled oxygen flow rate 4 L/min Carline Ashley CATH LABORATORY TECHNICIAN-C Work Phone: [facility] 04-18-2025 05:44-0400 Body height 157.48 cm Carline Ashley CATH LABORATORY TECHNICIAN-C Work Phone: [facility] 04-18-2025 05:44-0400 Body mass index (BMI) [Ratio] 33.5 kg/m2 Carline Ashley CATH LABORATORY TECHNICIAN-C Work Phone: [facility] 04-18-2025 05:44-0400 Body weight 83 kg Carline Ashley CATH LABORATORY TECHNICIAN-C Work Phone: [facility] 03-10-2025 05:29-0400 Body mass index (BMI) [Ratio] 32.3 kg/m2 Carline Wellingtonpkins CATH LABORATORY TECHNICIAN-C Work Phone: [facility] 03-10-2025 05:29-0400 Body temperature 97.6 [degF] Carline Ashley CATH LABORATORY TECHNICIAN-C Work Phone: [facility] 03-10-2025 05:29-0400 Body weight 80.28 kg Carline Ashley CATH LABORATORY TECHNICIAN-C Work Phone: [facility] 03-10-2025 05:29-0400 Diastolic blood pressure 82 mm[Hg] Carline Dion CATH LABORATORY TECHNICIAN-C Work Phone: [facility] 03-10-2025 05:29-0400 Heart rate 110 /min aCrline Wellingtonpkins CATH LABORATORY TECHNICIAN-C Work Phone: [facility] 03-10-2025 05:29-0400 Respiratory rate 20 /min Carline Wellingtonpkins CATH LABORATORY TECHNICIAN-C Work Phone: [facility] 03-10-2025 05:29-0400 SaO2% (BldA) [Mass fraction] 94 % Carline Wellingtonpkins CATH LABORATORY TECHNICIAN-C Work Phone: [facility] 03-10-2025 05:29-0400 Systolic blood pressure 139 mm[Hg] Carline Wellingtonpkins CATH LABORATORY TECHNICIAN-C Work Phone: [facility] 02-21-2025 14:01-0400 Body height 157.48 cm Carline Wellingtonpkins CATH LABORATORY TECHNICIAN-C Work Phone: [facility] 02-21-2025 14:01-0400 Body mass index (BMI) [Ratio] 32.1 kg/m2 Carline Wellingtonpkins CATH LABORATORY TECHNICIAN-C Work Phone: [facility] 02-21-2025 14:01-0400 Body temperature 98.3 [degF] Carline Wellingtonpkins CATH LABORATORY TECHNICIAN-C Work Phone: [facility] 02-21-2025 14:01-0400 Body weight 79.57 kg Carline Wellingtonpkins CATH LABORATORY TECHNICIAN-C Work Phone: [facility] 02-21-2025 14:01-0400 Diastolic blood pressure 87 mm[Hg] Carline Wellingtonpkins CATH LABORATORY TECHNICIAN-C Work Phone: [facility] 02-21-2025 14:01-0400 Heart rate 102 /min Carline Wellingtonpkins CATH LABORATORY TECHNICIAN-C Work Phone: [facility] 02-21-2025 14:01-0400 Respiratory rate 18 /min Carline Wellingtonpkins CATH LABORATORY TECHNICIAN-C Work Phone: [facility] 02-21-2025 14:01-0400 SaO2% (BldA) [Mass fraction] 94 % Carline Wellingtonpkins CATH LABORATORY TECHNICIAN-C Work Phone: [facility] 02-21-2025 14:01-0400 Systolic blood pressure 140 mm[Hg] Carline Wellingtonpkins CATH LABORATORY TECHNICIAN-C Work Phone: [facility] 02-16-2025 12:44-0400 Body height 157.48 cm Carline Wellingtonpkins CATH LABORATORY TECHNICIAN-C Work Phone: [facility] 02-16-2025 12:44-0400 Body weight 78.01 kg Carline Upson CATH LABORATORY TECHNICIAN-C Work Phone: [facility] 02-16-2025 12:44-0400 Heart rate 106 /min Carline Ashley CATH LABORATORY TECHNICIAN-C Work Phone: [facility] 02-16-2025 12:44-0400 SaO2% (BldA) [Mass fraction] 92 % Carline Ashley CATH LABORATORY TECHNICIAN-C Work Phone: [facility] 01-11-2025 08:40-0500 Body mass index (BMI) [Ratio] 31.1 kg/m2 Carline Ashley CATH LABORATORY TECHNICIAN-C Work Phone: [facility] 01-11-2025 08:40-0500 Body temperature 97.4 [degF] Carline Ashley CATH LABORATORY TECHNICIAN-C Work Phone: [facility] 01-11-2025 08:40-0500 Body weight 77.11 kg Carline Ashley CATH LABORATORY TECHNICIAN-C Work Phone: [facility] 01-11-2025 08:40-0500 Diastolic blood pressure 81 mm[Hg] Carline Ashley CATH LABORATORY TECHNICIAN-C Work Phone: [facility] 01-11-2025 08:40-0500 Heart rate 100 /min Carline Ashley CATH LABORATORY TECHNICIAN-C Work Phone: [facility] 01-11-2025 08:40-0500 Respiratory rate 20 /min Carline Ashley CATH LABORATORY TECHNICIAN-C Work Phone: [facility] 01-11-2025 08:40-0500 SaO2% (BldA) [Mass fraction] 95 % Carline Ashley CATH LABORATORY TECHNICIAN-C Work Phone: [facility] 01-11-2025 08:40-0500 Systolic blood pressure 135 mm[Hg] Carline Ashley CATH LABORATORY TECHNICIAN-C Work Phone: [facility] 01-04-2025 09:15-0500 Diastolic blood pressure 77 mm[Hg] Carline Ashley CATH LABORATORY TECHNICIAN-C Work Phone: [facility] 01-04-2025 09:15-0500 Heart rate 96 /min Carline Ashley CATH LABORATORY TECHNICIAN-C Work Phone: [facility] 01-04-2025 09:15-0500 Inhaled oxygen flow rate 2 L/min Carline Ashley CATH LABORATORY TECHNICIAN-C Work Phone: [facility] 01-04-2025 09:15-0500 Respiratory rate 18 /min Carline Ashley CATH LABORATORY TECHNICIAN-C Work Phone: [facility] 01-04-2025 09:15-0500 SaO2% (BldA) [Mass fraction] 93 % Carline Ashley CATH LABORATORY TECHNICIAN-C Work Phone: [facility] 01-04-2025 09:15-0500 Systolic blood pressure 120 mm[Hg] Carline Ashley CATH LABORATORY TECHNICIAN-C Work Phone: [facility] 01-04-2025 09:09-0500 Body temperature 97 [degF] Carline Ashley CATH LABORATORY TECHNICIAN-C Work Phone: [facility] 01-04-2025 07:18-0500 Body height 157.48 cm Carline Ashley CATH LABORATORY TECHNICIAN-C Work Phone: [facility] 01-04-2025 07:18-0500 Body mass index (BMI) [Ratio] 31 kg/m2 Carline Ashley CATH LABORATORY TECHNICIAN-C Work Phone: [facility] [facility] 01-04-2025 07:18-0500 Body weight 77 kg Carline Ashley CATH LABORATORY TECHNICIAN-C Work Phone: [facility] 07-28-2024 12:12-0400 Body temperature 97.4 [degF] Carline Ashley CATH LABORATORY TECHNICIAN-C Work Phone: [facility] 07-28-2024 12:12-0400 Diastolic blood pressure 74 mm[Hg] Carline Ashley CATH LABORATORY TECHNICIAN-C Work Phone: [facility] 07-28-2024 12:12-0400 Heart rate 106 /min Carline Ashley CATH LABORATORY TECHNICIAN-C Work Phone: [facility] 07-28-2024 12:12-0400 Respiratory rate 16 /min Carline Wellingtonpkins CATH LABORATORY TECHNICIAN-C Work Phone: [facility] 07-28-2024 12:12-0400 Systolic blood pressure 137 mm[Hg] Carline Wellingtonpkins CATH LABORATORY TECHNICIAN-C Work Phone: [facility] 07-28-2024 11:31-0400 SaO2% (BldA) [Mass fraction] 99 % Carline Wellingtonpkins CATH LABORATORY TECHNICIAN-C Work Phone: [facility] 07-21-2024 13:59-0400 Body mass index (BMI) [Ratio] 22.6 kg/m2 Carline Dion CATH LABORATORY TECHNICIAN-C Work Phone: [facility] 03-17-2024 10:40-0400 Body height 154.94 cm CATH LABORATORY TECHNICIAN-C Carline Wellingtonpkins CATH LABORATORY TECHNICIAN Work Phone: [facility] 03-17-2024 10:40-0400 Body mass index (BMI) [Ratio] 29.8 kg/m2 CATH LABORATORY TECHNICIAN-C Carline Wellingtonpkins CATH LABORATORY TECHNICIAN Work Phone: [facility] 03-17-2024 10:40-0400 Body temperature 99.5 [degF] CATH LABORATORY TECHNICIAN-C Carline Wellingtonpkins CATH LABORATORY TECHNICIAN Work Phone: [facility] 03-17-2024 10:40-0400 Body weight 71.66 kg CATH LABORATORY TECHNICIAN-C Carline Dion CATH LABORATORY TECHNICIAN Work Phone: [facility] 03-17-2024 10:40-0400 Diastolic blood pressure 77 mm[Hg] CATH LABORATORY TECHNICIAN-C Carline Dion CATH LABORATORY TECHNICIAN Work Phone: [facility] 03-17-2024 10:40-0400 Heart rate 128 /min CATH LABORATORY TECHNICIAN-C Carline Upson CATH LABORATORY TECHNICIAN Work Phone: [facility] 03-17-2024 10:40-0400 Respiratory rate 18 /min CATH LABORATORY TECHNICIAN-C Carline Upson CATH LABORATORY TECHNICIAN Work Phone: [facility] 03-17-2024 10:40-0400 SaO2% (BldA) [Mass fraction] 99 % CATH LABORATORY TECHNICIAN-C Carline Ashley CATH LABORATORY TECHNICIAN Work Phone: [facility] 03-17-2024 10:40-0400 Systolic blood pressure 137 mm[Hg] CATH LABORATORY TECHNICIAN-C Carline Ashley CATH LABORATORY TECHNICIAN Work Phone: [facility] 02-17-2024 13:07-0400 Body mass index (BMI) [Ratio] 32.1 kg/m2 CATH LABORATORY TECHNICIAN-C Carline Ashley CATH LABORATORY TECHNICIAN Work Phone: [facility] 02-17-2024 13:07-0400 Body temperature 97.6 [degF] CATH LABORATORY TECHNICIAN-C Carline Ashley CATH LABORATORY TECHNICIAN Work Phone: [facility] 02-17-2024 13:07-0400 Diastolic blood pressure 75 mm[Hg] CATH LABORATORY TECHNICIAN-C Carline Ashley CATH LABORATORY TECHNICIAN Work Phone: [facility] 02-17-2024 13:07-0400 Heart rate 100 /min CATH LABORATORY TECHNICIAN-C Carline Ashley CATH LABORATORY TECHNICIAN Work Phone: [facility] 02-17-2024 13:07-0400 Respiratory rate 18 /min CATH LABORATORY TECHNICIAN-C Carline Ashley CATH LABORATORY TECHNICIAN Work Phone: [facility] 02-17-2024 13:07-0400 Systolic blood pressure 138 mm[Hg] CATH LABORATORY TECHNICIAN-C Carline Ashley CATH LABORATORY TECHNICIAN Work Phone: [facility] 02-15-2024 00:29-0400 Body weight 77.11 kg CATH LABORATORY TECHNICIAN-C Carline Ashley CATH LABORATORY TECHNICIAN Work Phone: [facility] 02-11-2024 09:58-0400 Body temperature 98.9 [degF] CATH LABORATORY TECHNICIAN-C Carline Ashley CATH LABORATORY TECHNICIAN Work Phone: [facility] 02-11-2024 09:58-0400 Body weight 68.03 kg CATH LABORATORY TECHNICIAN-C Carline Ashley CATH LABORATORY TECHNICIAN Work Phone: [facility] 02-11-2024 09:58-0400 Diastolic blood pressure 76 mm[Hg] CATH LABORATORY TECHNICIAN-C Carline Ashley CATH LABORATORY TECHNICIAN Work Phone: [facility] 02-11-2024 09:58-0400 Heart rate 125 /min CATH LABORATORY TECHNICIAN-C Carline Ashley CATH LABORATORY TECHNICIAN Work Phone: [facility] 02-11-2024 09:58-0400 Respiratory rate 18 /min CATH LABORATORY TECHNICIAN-C Carline Ashley CATH LABORATORY TECHNICIAN Work Phone: [facility] 02-11-2024 09:58-0400 SaO2% (BldA) [Mass fraction] 95 % CATH LABORATORY TECHNICIAN-C Carline Ashley CATH LABORATORY TECHNICIAN Work Phone: [facility] 02-11-2024 09:58-0400 Systolic blood pressure 138 mm[Hg] CATH LABORATORY TECHNICIAN-C Carline Ashley CATH LABORATORY TECHNICIAN Work Phone: [facility] 02-03-2024 11:34-0400 Body mass index (BMI) [Ratio] 32.1 kg/m2 CATH LABORATORY TECHNICIAN-C Carline Ashley CATH LABORATORY TECHNICIAN Work Phone: [facility] 02-03-2024 11:34-0400 Diastolic blood pressure 76 mm[Hg] CATH LABORATORY TECHNICIAN-C Carline Ashley CATH LABORATORY TECHNICIAN Work Phone: [facility] 02-03-2024 11:34-0400 Heart rate 137 /min CATH LABORATORY TECHNICIAN-C Carline Ashley CATH LABORATORY TECHNICIAN Work Phone: [facility] 02-03-2024 11:34-0400 Respiratory rate 18 /min CATH LABORATORY TECHNICIAN-C Carline Ashley CATH LABORATORY TECHNICIAN Work Phone: [facility] 02-03-2024 11:34-0400 Systolic blood pressure 143 mm[Hg] CATH LABORATORY TECHNICIAN-C Carline Ashley CATH LABORATORY TECHNICIAN Work Phone: [facility] 01-27-2024 10:00-0400 Body height 154.94 cm CATH LABORATORY TECHNICIAN-C Carline Ashley CATH LABORATORY TECHNICIAN Work Phone: [facility] 01-27-2024 10:00-0400 Body mass index (BMI) [Ratio] 32.1 kg/m2 CATH LABORATORY TECHNICIAN-C Carline Ashley CATH LABORATORY TECHNICIAN Work Phone: [facility] 01-27-2024 10:00-0400 Body temperature 97.7 [degF] CATH LABORATORY TECHNICIAN-C Carline Ashley CATH LABORATORY TECHNICIAN Work Phone: [facility] 01-27-2024 10:00-0400 Body weight 77.11 kg CATH LABORATORY TECHNICIAN-C Carline Ashley CATH LABORATORY TECHNICIAN Work Phone: [facility] 01-27-2024 10:00-0400 Diastolic blood pressure 79 mm[Hg] CATH LABORATORY TECHNICIAN-C Carline Ashley CATH LABORATORY TECHNICIAN Work Phone: [facility] 01-27-2024 10:00-0400 Heart rate 134 /min CATH LABORATORY TECHNICIAN-C Carline Ashley CATH LABORATORY TECHNICIAN Work Phone: [facility] 01-27-2024 10:00-0400 Respiratory rate 18 /min CATH LABORATORY TECHNICIAN-C Carline Ashley CATH LABORATORY TECHNICIAN Work Phone: [facility] 01-27-2024 10:00-0400 Systolic blood pressure 146 mm[Hg] CATH LABORATORY TECHNICIAN-C Carline Ashley CATH LABORATORY TECHNICIAN Work Phone: [facility] 01-22-2024 11:41-0500 Inhaled oxygen flow rate 0 L/min CATH LABORATORY TECHNICIAN-C Carline Ashley CATH LABORATORY TECHNICIAN Work Phone: [facility] 01-22-2024 11:41-0500 SaO2% (BldA) [Mass fraction] 91 % CATH LABORATORY TECHNICIAN-C Carline Ashley CATH LABORATORY TECHNICIAN Work Phone: [facility] 01-22-2024 10:00-0500 Diastolic blood pressure 64 mm[Hg] CATH LABORATORY TECHNICIAN-C Carline Ashley CATH LABORATORY TECHNICIAN Work Phone: [facility] 01-22-2024 10:00-0500 Heart rate 95 /min CATH LABORATORY TECHNICIAN-C Carline Ashley CATH LABORATORY TECHNICIAN Work Phone: [facility] 01-22-2024 10:00-0500 Respiratory rate 21 /min CATH LABORATORY TECHNICIAN-C Carline Ashley CATH LABORATORY TECHNICIAN Work Phone: [facility] 01-22-2024 10:00-0500 Systolic blood pressure 115 mm[Hg] CATH LABORATORY TECHNICIAN-C Carline Ashley CATH LABORATORY TECHNICIAN Work Phone: [facility] 01-22-2024 08:00-0500 Body temperature 98.5 [degF] CATH LABORATORY TECHNICIAN-C Carline Ashley CATH LABORATORY TECHNICIAN Work Phone: [facility] 01-22-2024 04:32-0500 Body mass index (BMI) [Ratio] 31.7 kg/m2 CATH LABORATORY TECHNICIAN-C Carline Ashley CATH LABORATORY TECHNICIAN Work Phone: [facility] 01-22-2024 04:32-0500 Body weight 78.2 kg CATH LABORATORY TECHNICIAN-C Carline Ashley CATH LABORATORY TECHNICIAN Work Phone: [facility] 01-21-2024 04:20-0500 Body height 157.48 cm CATH LABORATORY TECHNICIAN-C Carline Ashley CATH LABORATORY TECHNICIAN Work Phone: [facility] 01-08-2024 18:12-0500 Body temperature 97.8 [degF] [facility] 01-08-2024 18:12-0500 Diastolic blood pressure 91 mm[Hg] [facility] 01-08-2024 18:12-0500 Heart rate 105 /min [facility] 01-08-2024 18:12-0500 Respiratory rate 20 /min [facility] 01-08-2024 18:12-0500 SaO2% (BldA) [Mass fraction] 97 % [facility] 01-08-2024 18:12-0500 Systolic blood pressure 129 mm[Hg] [facility] 01-08-2024 14:57-0500 Body mass index (BMI) [Ratio] 31.4 kg/m2 [facility] 01-08-2024 14:57-0500 Body weight 78 kg [facility] 01-08-2024 13:36-0500 Body height 157.48 cm [facility] Encounters Encounter Date Encounter Type Care Provider Facility Start: 06-02-2025 End: 06-02-2025 Patient encounter procedure CATH LABORATORY TECHNICIAN Rupali Deng [facility] Pulmonary Medicine Work Phone: Start: 06-02-2025 End: 06-02-2025 ambulatory Carline Ashley CATH LABORATORY TECHNICIAN-C Work Phone: -[facility] Start: 05-10-2025 End: 05-10-2025 Patient encounter procedure Tamar CAVANAUGH -[facility] Work Phone: Start: 05-10-2025 End: 05-10-2025 ambulatory Carline Ashley CATH LABORATORY TECHNICIAN-C Work Phone: [facility] Work Phone: Start: 05-10-2025 End: 05-10-2025 ambulatory Tamar Lacey Facility:[facility] Start: 04-18-2025 ambulatory Carline Ashley CATH LABORATORY TECHNICIAN Facility:[facility] Start: 04-18-2025 Non-patient / Non-visit Adi Kincaid DO -[facility] Start: 04-18-2025 End: 04-18-2025 Admission to same day surgery center Adi Kincaid DO -Endoscopy Work Phone: Start: 04-18-2025 End: 04-18-2025 ambulatory Carline Ashley CATH LABORATORY TECHNICIAN-C Work Phone: [facility] Work Phone: Start: 04-12-2025 End: 04-12-2025 ambulatory Carline Ashley CATH LABORATORY TECHNICIAN-C Work Phone: [facility] Work Phone: Start: 04-12-2025 End: 04-12-2025 Patient encounter procedure Carline Ashley CATH LABORATORY TECHNICIAN-C -Laboratory Specimen Work Phone: Start: 04-12-2025 End: 04-12-2025 ambulatory Carline Ashley CATH LABORATORY TECHNICIAN Facility:[facility] Start: 03-10-2025 End: 03-10-2025 Patient encounter procedure CATH LABORATORY TECHNICIAN Rupali Deng -[facility] Work Phone: Start: 03-10-2025 End: 03-10-2025 ambulatory Carline Ashley CATH LABORATORY TECHNICIAN Facility:[facility] Start: 02-24-2025 End: 02-24-2025 ambulatory Carline Ashley CATH LABORATORY TECHNICIAN-C Work Phone: [facility] Work Phone: Start: 02-24-2025 End: 02-24-2025 Patient encounter procedure Tamar CAVANAUGH -Ultrasound, [facility] Work Phone: Start: 02-24-2025 End: 02-24-2025 ambulatory Tamar Lacey Facility:[facility] Start: 02-22-2025 ambulatory Danis Bustos Facility:[facility] Start: 02-22-2025 Non-patient / Non-visit Dr. Danis Bustos DO -[facility] Start: 02-21-[address] Joseph Torres MD -[facility] Start: 02-21-2025 End: 02-21-[address] Joseph Torres MD -[facility] Work Phone: Start: 02-21-2025 End: 02-21-2025 ambulatory Carline Ashley CATH LABORATORY TECHNICIAN Facility:[facility] Start: 02-20-2025 Non-patient / Non-visit Dr. Selvin Frost MD -[facility] Start: 02-20-2025 End: 02-20-2025 ambulatory Carline Ashley CATH LABORATORY TECHNICIAN-C Work Phone: [facility] Work Phone: Start: 02-20-2025 End: 02-20-2025 Patient encounter procedure Katie CAVANAUGH -Cardiovascular Services Work Phone: Start: 02-20-2025 End: 02-20-2025 ambulatory Katie Retana Facility:[facility] Start: 02-16-2025 End: 02-16-2025 ambulatory Carline Ashley CATH LABORATORY TECHNICIAN-C Work Phone: [facility] Work Phone: Start: 02-16-2025 End: 02-16-[address] Danis Bustos DO -Pulmonary Services/Neurology Work Phone: Start: 02-15-2025 End: 02-15-2025 Patient encounter procedure Tamar Atanasov PA -Laboratory Work Phone: Start: 02-15-2025 End: 02-16-2025 ambulatory Carline Ashley CATH LABORATORY TECHNICIAN-C Work Phone: [facility] Work Phone: Start: 02-14-2025 End: 02-15-2025 ambulatory Carline Ashley CATH LABORATORY TECHNICIAN-C Work Phone: [facility] Work Phone: Start: 02-14-2025 End: 02-14-[address] Danis Bustos DO -Pulmonary Services/Neurology Work Phone: Start: 02-14-2025 End: 02-14-2025 ambulatory Carline Ashley CATH LABORATORY TECHNICIAN Facility:[facility] Start: 01-26-2025 End: 01-26-2025 ambulatory Carline Ashley CATH LABORATORY TECHNICIAN-C Work Phone: [facility] Work Phone: Start: 01-26-2025 End: 01-26-2025 Patient encounter procedure Carline Ashley CATH LABORATORY TECHNICIAN-C -Outpatient Breast Imaging Work Phone: Start: 01-26-2025 End: 01-26-2025 ambulatory Carline Ashley CATH LABORATORY TECHNICIAN Facility:[facility] Start: 01-11-2025 End: 01-11-[address] Danis Bustos DO -[facility] Work Phone: Start: 01-11-2025 End: 01-11-2025 ambulatory Carline Ashley CATH LABORATORY TECHNICIAN Facility:[facility] Start: 01-04-2025 ambulatory Carline Ashley CATH LABORATORY TECHNICIAN Facility:[facility] Start: 01-04-2025 Non-patient / Non-visit Adi Kincaid DO -[facility] Start: 01-04-2025 End: 01-04-2025 Admission to same day surgery center Adi Kincaid DO -Endoscopy Work Phone: Start: 01-04-2025 End: 01-04-2025 ambulatory Carline Ashley CATH LABORATORY TECHNICIAN Facility:[facility] Start: 11-11-2024 End: 11-11-2024 Patient encounter procedure Carline Ashley CATH LABORATORY TECHNICIAN-C -Laboratory Work Phone: Start: 11-11-2024 End: 11-11-2024 ambulatory Carline Ashley CATH LABORATORY TECHNICIAN Facility:[facility] Start: 10-20-2024 End: 10-20-2024 Patient encounter procedure Tamar CAVANAUGH -[facility] Work Phone: Start: 10-20-2024 End: 10-20-2024 ambulatory Carline Ashley CATH LABORATORY TECHNICIAN Facility:[facility] Start: 10-20-2024 End: 10-20-2024 ambulatory Carline Ashley CATH LABORATORY TECHNICIAN Facility:[facility] Start: 09-12-2024 End: 09-12-2024 ambulatory Carline Ashley CATH LABORATORY TECHNICIAN Facility:[facility] Start: 09-06-2024 End: 09-06-2024 ambulatory Carline Ashley CATH LABORATORY TECHNICIAN Facility:[facility] Start: 08-16-2024 End: 08-16-2024 ambulatory Carline Ashley CATH LABORATORY TECHNICIAN Facility:[facility] Start: 08-16-2024 End: 08-16-2024 ambulatory Carline Ashley CATH LABORATORY TECHNICIAN Facility:[facility] Start: 08-09-2024 ambulatory Carline Ashley CATH LABORATORY TECHNICIAN Facility:[facility] Start: 08-09-2024 End: 08-09-2024 ambulatory Carline Ashley CATH LABORATORY TECHNICIAN Facility:[facility] Start: 07-21-2024 End: 07-21-2024 ambulatory Carline Ashley CATH LABORATORY TECHNICIAN Facility:[facility] Start: 07-13-2024 End: 07-13-2024 ambulatory Carline Ashley CATH LABORATORY TECHNICIAN Facility:[facility] Start: 07-11-2024 End: 07-11-2024 ambulatory Carline Ashley CATH LABORATORY TECHNICIAN Facility:[facility] Start: 06-23-2024 ambulatory Meli Carvajal Facility :[facility] Start: 06-10-2024 End: 06-10-2024 ambulatory Carline Ashley CATH LABORATORY TECHNICIAN Facility:[facility] Start: 06-08-2024 End: 06-08-2024 ambulatory Carline Ashley CATH LABORATORY TECHNICIAN Facility:[facility] Start: 03-17-2024 Non-patient / Non-visit CATH LABORATORY TECHNICIAN-C Carline Wellingtonpkins CATH LABORATORY TECHNICIAN Work Phone: [facility] Start: 03-17-2024 End: 03-17-2024 ambulatory CATH LABORATORY TECHNICIAN-C Carline Wellingtonpkins CATH LABORATORY TECHNICIAN Work Phone: [facility] Work Phone: Start: 03-17-2024 End: 03-17-2024 Patient encounter procedure CATH LABORATORY TECHNICIAN-C Carline Dion CATH LABORATORY TECHNICIAN Work Phone: [facility] Work Phone: Start: 03-07-2024 End: 03-07-2024 ambulatory CATH LABORATORY TECHNICIAN-C Carline Ashley CATH LABORATORY TECHNICIAN Work Phone: [facility] Work Phone: Start: 03-07-2024 End: 03-07-2024 Patient encounter procedure CATH LABORATORY TECHNICIAN-C Carline Ashley CATH LABORATORY TECHNICIAN Work Phone: [facility]-Laboratory Work Phone: Start: 03-02-2024 Non-patient / Non-visit CATH LABORATORY TECHNICIAN-C Carline Ashley CATH LABORATORY TECHNICIAN Work Phone: [facility] Start: 03-02-2024 End: 03-02-2024 ambulatory CATH LABORATORY TECHNICIAN-C Carline Ashley CATH LABORATORY TECHNICIAN Work Phone: [facility] Work Phone: Start: 03-02-2024 End: 03-02-2024 Patient encounter procedure CATH LABORATORY TECHNICIAN-C Carline Ashley CATH LABORATORY TECHNICIAN [facility] Start: 02-26-2024 End: 02-26-2024 ambulatory CATH LABORATORY TECHNICIAN-C Carline Henis Dion CATH LABORATORY TECHNICIAN Work Phone: [facility] Work Phone: Start: 02-26-2024 End: 02-26-2024 Patient encounter procedure CATH LABORATORY TECHNICIAN-C Carline Ashley CATH LABORATORY TECHNICIAN [facility] Work [facility] Start: 02-17-2024 End: 03-15-2024 ambulatory CATH LABORATORY TECHNICIAN-C Carline Ashley CATH LABORATORY TECHNICIAN Work Phone: [facility] Work Phone: Start: 02-17-2024 End: 03-15-2024 Discharged Recurring CATH LABORATORY TECHNICIAN-C Carline Ashley CATH LABORATORY TECHNICIAN Work Phone: [facility] Work Phone: Start: 02-17-2024 Registered Recurring CATH LABORATORY TECHNICIAN-C Da Ashley CATH LABORATORY TECHNICIAN Work Phone: [facility] Work Phone: Start: 02-11-2024 End: 02-11-2024 Patient encounter procedure CATH LABORATORY TECHNICIAN-C Carline Ashley CATH LABORATORY TECHNICIAN Work Phone: [facility] Work Phone: Start: 02-03-2024 End: 02-14-2024 ambulatory CATH LABORATORY TECHNICIAN-C Carline Ashley CATH LABORATORY TECHNICIAN Work Phone: [facility] Work Phone: Start: 02-03-2024 End: 02-14-2024 Discharged Recurring CATH LABORATORY TECHNICIAN-C Carline Ashley CATH LABORATORY TECHNICIAN Work Phone: [facility] Work Phone: Start: 01-27-2024 Registered Recurring CATH LABORATORY TECHNICIAN-C Da Ashley CATH LABORATORY TECHNICIAN Work Phone: [facility] Work Phone: Start: 01-27-2024 End: 01-27-2024 ambulatory CATH LABORATORY TECHNICIAN-C Carline Ashley CATH LABORATORY TECHNICIAN Work Phone: [facility] Work Phone: Start: 01-27-2024 End: 01-27-2024 Patient encounter procedure CATH LABORATORY TECHNICIAN-C Carline Ashley CATH LABORATORY TECHNICIAN Work Phone: [facility]-Laboratory Work Phone: Start: 01-22-2024 Non-patient / Non-visit CATH LABORATORY TECHNICIAN-C Carline Wellingtonpkins CATH LABORATORY TECHNICIAN Work Phone: [facility] Start: 01-21-2024 Non-patient / Non-visit CATH LABORATORY TECHNICIAN-C Carline Upson CATH LABORATORY TECHNICIAN Work Phone: [facility] Work Phone: Start: 01-21-2024 Non-patient / Non-visit CATH LABORATORY TECHNICIAN-C Carline Upson CATH LABORATORY TECHNICIAN Work Phone: [facility] Start: 01-20-2024 Non-patient / Non-visit CATH LABORATORY TECHNICIAN-C Carline Dion CATH LABORATORY TECHNICIAN Work Phone: [facility] Start: 01-20-2024 Non-patient / Non-visit CATH LABORATORY TECHNICIAN-C Carline Upson CATH LABORATORY TECHNICIAN Work Phone: [facility] Work Phone: Start: 01-19-2024 Non-patient / Non-visit CATH LABORATORY TECHNICIAN-C Carline Dion CATH LABORATORY TECHNICIAN Work Phone: [facility] Work Phone: Start: 01-18-2024 Non-patient / Non-visit CATH LABORATORY TECHNICIAN-C Carline Upson CATH LABORATORY TECHNICIAN Work Phone: [facility] Start: 01-18-2024 Non-patient / Non-visit CATH LABORATORY TECHNICIAN-C Carline Upson CATH LABORATORY TECHNICIAN Work Phone: [facility] Work Phone: Start: 01-17-2024 Non-patient / Non-visit CATH LABORATORY TECHNICIAN-C Carline Upson CATH LABORATORY TECHNICIAN Work Phone: [facility] Work Phone: Start: 01-16-2024 Non-patient / Non-visit CATH LABORATORY TECHNICIAN-C Carline Ashley CATH LABORATORY TECHNICIAN Work Phone: [facility] Work Phone: Start: 01-15-2024 Non-patient / Non-visit CATH LABORATORY TECHNICIAN-C Carline Ashley CATH LABORATORY TECHNICIAN Work Phone: [facility] Start: 01-15-2024 Non-patient / Non-visit CATH LABORATORY TECHNICIAN-C Carline Wellingtonpkins CATH LABORATORY TECHNICIAN Work Phone: [facility] Start: 01-15-2024 Non-patient / Non-visit CATH LABORATORY TECHNICIAN-C Carline Wellingtonpkins CATH LABORATORY TECHNICIAN Work Phone: [facility] Work Phone: Start: 01-14-2024 Non-patient / Non-visit CATH LABORATORY TECHNICIAN-C Carline Wellingtonpkins CATH LABORATORY TECHNICIAN Work Phone: [facility] Start: 01-14-2024 Non-patient / Non-visit CATH LABORATORY TECHNICIAN-C Carline Ashley CATH LABORATORY TECHNICIAN Work Phone: [facility] Work Phone: Start: 01-13-2024 Non-patient / Non-visit CATH LABORATORY TECHNICIAN-C Carline Ashley CATH LABORATORY TECHNICIAN Work Phone: [facility] Work Phone: Start: 01-12-2024 Non-patient / Non-visit CATH LABORATORY TECHNICIAN-C Carline Wellingtonpkins CATH LABORATORY TECHNICIAN Work Phone: [facility] Work Phone: Start: 01-11-2024 Non-patient / Non-visit CATH LABORATORY TECHNICIAN-C Carline Dion CATH LABORATORY TECHNICIAN Work Phone: [facility] Start: 01-11-2024 Non-patient / Non-visit CATH LABORATORY TECHNICIAN-C Carline Wellingtonpkins CATH LABORATORY TECHNICIAN Work Phone: [facility] Work Phone: Start: 01-10-2024 Non-patient / Non-visit CATH LABORATORY TECHNICIAN-C Carline Wellingtonpkins CATH LABORATORY TECHNICIAN Work Phone: [facility] Work Phone: Start: 01-09-2024 Non-patient / Non-visit CATH LABORATORY TECHNICIAN-C Carline Ashley CATH LABORATORY TECHNICIAN Work Phone: [facility] Work Phone: Start: 01-08-2024 End: 01-22-2024 Evaluation and management of inpatient [facility]-Medical Surgical 3 Work Phone: Start: 01-01-2024 ambulatory JEFF SONG MD [facility] ity:A Start: 12-21-2023 End: 12-21-2023 ambulatory [facility] sp[facility] Work Phone: Start: 12-21-2023 End: 12-21-2023 Patient encounter procedure [facility]-Cat Scan, [facility] Work Phone: Start: 10-28-2023 End: 10-29-2023 ambulatory CARLINE WELLINGTONPKINS SOLDERING MACHINE OPERATOR - HAT MENDER Facility:B Start: 10-28-2023 End: 10-28-2023 Patient encounter procedure 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 [facility] Start: 10-23-2023 ambulatory CARLINE WELLINGTONRosy DELGADO SOLDERING MACHINE OPERATOR - HAT MENDER Facility:B Start: 10-12-2023 End: 10-12-2023 ambulatory [facility] Work Phone: Start: 10-12-2023 End: 10-12-2023 Patient encounter procedure [facility] Work Phone: Start: 04-09-2018 End: 04-13-2018 Ambulatory [facility] Procedures Date Procedure Procedure Detail Performing Clinician Start: 05-10-2025 Aqtca-3-Qichtyvlplt measurement Carline Upson CATH LABORATORY TECHNICIAN-C Work Phone: Comment on above: [employer] Electrochemiluminescen ce Immunoassay(ECLIA)Values obtained with different assay methods or kits cannotbe used interchangeably. Results cannot be interpreted asabsolute evidence of the presence or absence of malignantdisease.This test is not interpretable in females. Start: 05-10-2025 Antibody measurement Carline Ashley CATH LABORATORY TECHNICIAN-C Work Phone: Comment on above: The atypical pANCA pattern has been obse rved in asignificant percentage of patients with ulcerative colitis,primary sclerosing cholangitis and autoimmune hepatitis. Start: 05-10-2025 Antibody to centromere measurement Marjan Ashley CATH LABORATORY TECHNICIAN-C Work Phone: Comment on above: Previous reported result: TNP AIEdited b y: INFCE on 05/11/25:1707 AMENDED REPORT 05/11/251706 ANTI-CENT B previously reported as: Test not performed Start: 05-10-2025 Antibody to extractable nuclear antigen measurement Carline Ashley CATH LABORATORY TECHNICIAN-C Work Phone: Comment on above: Previous reported result: TNP AIEdited b y: INFCE on 05/11/25:1707 AMENDED REPORT 05/11/25 170 FERRERA Ab previously reported as: Test not performed Start: 05-10-2025 Antibody to ROMI-1 measurement Carline kaiser CATH LABORATORY TECHNICIAN-C Work Phone: Comment on above: Previous reported result: TNP AIEdited b y: INFCE on 05/11/25:1707 AMENDED REPORT 05/11/25 170 ANTI-ROMI previously reported as: Test not performed Start: 05-10-2025 Antibody to lupus La protein measurement Carline Ashley CATH LABORATORY TECHNICIAN-C Work Phone: Start: 05-10-2025 Antibody to SS-A measurement Carline kaiser CATH LABORATORY TECHNICIAN-C Work Phone: Start: 05-10-2025 Autoantibody measurement Carline Barahona s CATH LABORATORY TECHNICIAN-C Work Phone: Comment on above: Previous reported result: TNP AIEdited b y: INFCE on 05/11/25:1707 AMENDED REPORT 05/11/251706 ANTICHROMATIN previously reported as: Test not performed Start: 05-10-2025 Ceruloplasmin measurement Carline Andrade ns CATH LABORATORY TECHNICIAN-C Work Phone: Start: 05-10-2025 Copper measurement, serum Carline Andrade ns CATH LABORATORY TECHNICIAN-C Work Phone: Comment on above: Detection Limit = 5Performed at: [address] [id number] Director: Prabhu Sorenson PhD, Phone: [phone] at: [address] [id number] Director: Chris Mahajan MD, Phone: [phone] Start: 05-10-2025 Hepatitis A virus antibody, IgM type Carline Ashley CATH LABORATORY TECHNICIAN-C Work Phone: Comment on above: A negative anti-HAV IgM result suggests no recent orcurrent HAV infection. Start: 05-10-2025 Hepatitis B core antibody measurement, IgM type Carline Ashley CATH LABORATORY TECHNICIAN-C Work Phone: Start: 05-10-2025 Hepatitis C antibody measurement Carline Ashley CATH LABORATORY TECHNICIAN-C Work Phone: Start: 05-10-2025 CHIEF ELECTRICIAN antibody measurement Carline Barahona s CATH LABORATORY TECHNICIAN-C Work Phone: Comment on above: Previous reported result: TNP AIEdited b y: INFCE on 05/11/25:1707 AMENDED REPORT 05/11/251706 CHIEF ELECTRICIAN Ab previously reported as: Test not performed Start: 04-18-2025 Esophagogastroduodenoscopy Carline Braden ins CATH LABORATORY TECHNICIAN-C Work Phone: Start: 04-12-2025 Parathyroid hormone measurement Carline Ashley CATH LABORATORY TECHNICIAN-C Work Phone: Start: 04-12-2025 Total iron binding capacity measurement Carline Ashley CATH LABORATORY TECHNICIAN-C Work Phone: Start: 04-12-2025 Urine microalbumin/creatinine ratio measurement Carline Ashley CATH LABORATORY TECHNICIAN-C Work Phone: Comment on above: Previous reported result: 774.9 mg/g CRE Edited by: DAREK on 05/09/25:1105 AMENDED REPORT 05/09/25 1105 MALB:CREAT previously reported as: 774.9 mg/g CRE Start: 04-12-2025 Vitamin D, 25-hydroxy measurement Loyd d Dion CATH LABORATORY TECHNICIAN-C Work Phone: Comment on above: Vitamin D StatusDeficiency: <20 ng/mL (5 0nmol/L)Insufficiency: 20-30 ng/mL (50-75 nmol/L)Sufficiency: 30-100 ng/mL (75-250 nmol/L)Toxicity: >100 ng/mL (>250 nmol/L) Start: 02-24-2025 Ultrasound elastography of liver Carline Ashley CATH LABORATORY TECHNICIAN-C Work Phone: Start: 02-21-2025 Estimated creatinine clearance Carline garcia CATH LABORATORY TECHNICIAN-C Work Phone: Start: 02-21-2025 Total iron binding capacity measurement Carline Wellingtonpkins CATH LABORATORY TECHNICIAN-C Work Phone: Start: 01-26-2025 Screening mammography Carline Ashley CATH LABORATORY TECHNICIAN-C Work Phone: Start: 09-06-2024 Assay of phosphorus inorganic Carline To mpkins CATH LABORATORY TECHNICIAN-C Work Phone: Start: 09-06-2024 Folic acid measurement Carline Wellingtonpkins CATH LABORATORY TECHNICIAN-C Work Phone: Start: 09-06-2024 Immature reticulocyte fraction Carline Flores ompzheng CATH LABORATORY TECHNICIAN-C Work Phone: Start: 09-06-2024 Measurement of renal function Carline To mpkins CATH LABORATORY TECHNICIAN-C Work Phone: Comment on above: GFR Calc Start: 01-21-2024 Femoral-femoral crossover arteriogram CATH LABORATORY TECHNICIAN-C Carline Ashley CATH LABORATORY TECHNICIAN Work Phone: Start: 01-16-2024 Clostridium difficile detection CATH LABORATORY TECHNICIAN-C Joshua evelin Dion CATH LABORATORY TECHNICIAN Work Phone: Start: 01-13-2024 Debridement CATH LABORATORY TECHNICIAN-C Carline Wellingtonpkins CATH LABORATORY TECHNICIAN Work Phone: Start: 01-13-2024 US urinary tract CATH LABORATORY TECHNICIAN-C Carline Ashley CATH LABORATORY TECHNICIAN Work Phone: Start: 01-10-2024 Anaerobic microbial culture CATH LABORATORY TECHNICIAN-C Carline Ashley CATH LABORATORY TECHNICIAN Work Phone: Start: 01-10-2024 Fungus stain method CATH LABORATORY TECHNICIAN-C Carline Ashley CATH LABORATORY TECHNICIAN Work Phone: Start: 01-10-2024 Investigation of transfusion reaction CATH LABORATORY TECHNICIAN-C Carline Ashley CATH LABORATORY TECHNICIAN Work Phone: Start: 01-10-2024 Microbial culture, routine CATH LABORATORY TECHNICIAN-C Carline Ashley CATH LABORATORY TECHNICIAN Work Phone: Start: 01-10-2024 Mycology culture CATH LABORATORY TECHNICIAN-C Carline Ashley CATH LABORATORY TECHNICIAN Work Phone: Start: 01-10-2024 Amputation of toe CATH LABORATORY TECHNICIAN-C Carline Ashley CATH LABORATORY TECHNICIAN Work Phone: Start: 01-10-2024 Fluoroscopic guidance CATH LABORATORY TECHNICIAN-C Carline Ashley CATH LABORATORY TECHNICIAN Work Phone: Start: 01-10-2024 Plain X-ray of toe CATH LABORATORY TECHNICIAN-C Carline Ashley CATH LABORATORY TECHNICIAN Work Phone: Start: 01-08-2024 Plain chest X-ray Start: 01-08-2024 X-ray of both feet Start: 01-08-2024 Bacteria identified in Blood by Culture CATH LABORATORY TECHNICIAN-Jason Ashley CATH LABORATORY TECHNICIAN Work Phone: Start: 12-21-2023 CT of abdominal aorta with contrast Plan of Treatment Date Care Activity Detail Author Start: 10-23-2025 ambulatory Facility:[facility] Start: 04-18-2025 Endoscopy upper small intestine w/biopsy SMALL BOWEL ENDOSCOPY/BIOPSY [facility] Start: 04-18-2025 Enteroscopy > 2nd prtn w/control bleeding SMALL BOWEL ENDOSCOPY [facility] Start: 04-18-2025 Unlisted procedure stomach UNLISTED PROCEDURE STOMACH [facility] Start: 04-18-2025 Patient discharge [facility] Start: 02-21-2025 [facility] Start: 02-16-2025 Walking distance 6 minutes [facility] Start: 02-14-2025 Measurement of respiratory function [facility] Start: 01-04-2025 Egd transoral control bleeding any method EGD CONTROL BLEEDING ANY [facility] Start: 01-04-2025 Patient discharge [facility] Start: 01-22-2024 Patient discharge [facility] Start: 01-21-2024 End: 01-22-2024 [facility] Start: 01-21-2024 Ambulation without limitation [facility] Start: 01-21-2024 Assessment of risk of venous thromboembolism [facility] Start: 01-21-2024 Continuous pulse oximetry [facility] Start: 01-21-2024 Elevation of head of bed [facility] Start: 01-21-2024 Insertion of catheter into peripheral vein [facility] Start: 01-21-2024 Measuring intake and output [facility] Start: 01-21-2024 Oxygen therapy [facility] Start: 01-21-2024 Patient referral to dietitian [facility] Start: 01-21-2024 Providing care according to standard [facility] Start: 01-21-2024 Provision of activity privileges [facility] Start: 01-21-2024 Referral to occupational therapist [facility] Start: 01-21-2024 Referral to service [facility] Start: 01-21-2024 Removal of urinary catheter [facility] Start: 01-21-2024 Vital signs measurements [facility] Start: 01-17-2024 [facility] Start: 01-16-2024 [facility] Start: 01-14-2024 Notification of physician [facility] Start: 01-14-2024 Pulse taking [facility] Start: 01-14-2024 Taking patient vital signs [facility] Start: 01-14-2024 [facility] Start: 01-13-2024 Referral to mold shaker [facility] Start: 01-11-2024 Consultation [facility] Start: 01-10-2024 Wound care [facility] Start: 01-09-2024 Referral to vascular surgeon [facility] Start: 01-09-2024 Referral to material processor [facility] Start: 01-08-2024 Application of intermittent pneumatic compression device [facility] Start: 01-08-2024 Following clinical pathway protocol [facility] Start: 01-08-2024 Assessment of risk of venous thromboembolism [facility] Start: 01-08-2024 Consultation for treatment [facility] Start: 01-08-2024 Insertion of catheter into peripheral vein [facility] Start: 01-08-2024 Providing care according to standard [facility] Start: 01-08-2024 Provision of activity privileges [facility] Start: 01-08-2024 Referral to service [facility] Start: 01-08-2024 [facility] Start: 01-08-2024 Verification routine [facility] Start: 01-08-2024 Admission procedure [facility] Start: 01-08-2024 Hospital admission, emergency, from emergency room, medical nature [facility] Start: 01-08-2024 End: 01-08-2024 Blood culture [facility] Start: 01-08-2024 Bacteria identified in Blood by Culture Blood Culture [facility] Start: 01-08-2024 Inhalation therapy procedure [facility] Acute hepatitis 1999 panel - Serum [facility] Aldosterone [Mass/vo lume] in Serum or Plasma [facility] Cbnjz-3-gkfmervvyvf. tumor marker [Units/volume] in Serum or Plasma [facility] Angiotensin converti ng enzyme [Enzymatic activity/volume] in Serum or Plasma [facility] Ankle brachial press ure index [facility] Blood ammonia measurement [facility] C reactive protein [Mass/volume] in Serum or Plasma [facility] CBC W Auto Different ial panel - Blood [facility] Ceruloplasmin [Mass/ volume] in Serum or Plasma [facility] Comprehensive metabo lic 1999 panel - Serum or Plasma [facility] Copper [Moles/volume ] in Serum or Plasma [facility] CT Chest [facility] Erythrocyte sediment ation rate [facility] Fungus identified in Unspecified specimen by Culture [facility] Fungus identified in Unspecified specimen by Fungus stain [facility] Lipid 1996 panel - S tamia or Plasma [facility] Liver stiffness by US.transient elastography [facility] Mitochondria Ab [Pre sence] in Serum [facility] Patient referral [facility] Work Phone: Prothrombin time [facility] Smooth muscle Ab [Pr esence] in Serum [facility] Triglycerides measurement [facility] US Lower extremity artery [facility] Immunizations Immunization Date Immunization Notes Care Provider Rafaela alexander 10-15-2023 Influenza High-Dose Quadrivalent Carline Ashley CATH LABORATORY TECHNICIAN-C Work Phone: [facility] 10-15-2023 Pfizer Covid-19 (Comirnaty) Carline Ashley CATH LABORATORY TECHNICIAN-C Work Phone: [facility] 01-26-2021 SARS-CoV-2 mRNA (tozinameran) vaccine 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 [facility] Comment on above: Result Comment: 2020: [id number] 08-12-2018 influenza virus vaccine, unspecified formulation 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 [facility] 09-15-2006 influenza virus vaccine, unspecified formulation 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 [facility] 06-18-2006 tetanus and diphther ia toxoids, adsorbed, preservative free, for adult use (5 Lf of tetanus toxoid and 2 Lf of diphtheria toxoid) 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 [facility] Payers Date Payer Category Payer Self-pay [id number] 2024 Medicare [id number] 2023 Unknown [id number] 1955 Unknown [id number] 2.16.8 40.1.217370.3.579.2.627 1955 Unknown [id number] 2.16.8 40.1.960383.3.579.2.627 1955 Unknown [id number] 2.16.8 40.1.139089.3.579.2.627 Unknown [facility] [id number] Unknown [facility] [id number] Unknown [id number] 2.16.8 40.1.910140.3.579.2.462 Unknown [id number] 2.16.8 40.1.599230.3.579.2.462 Unknown [id number] 2.16.8 40.1.328456.3.579.2.462 Unknown [id number] 2.16.8 40.1.993497.3.579.2.462 Unknown [id number] 2.16.8 40.1.224169.3.579.2.462 Unknown [id number] 2.16.8 40.1.445372.3.579.2.462 Unknown [id number] 2.16.8 40.1.455586.3.579.2.462 Unknown [id number] 2.16.8 40.1.798074.3.579.2.462 Unknown [id number] 2.16.8 40.1.159415.3.579.2.462 Unknown [id number] 2.16.8 40.1.855784.3.579.2.462 Unknown [id number] 2.16.8 40.1.216274.3.579.2.462 Unknown [id number] 2.16.8 40.1.365297.3.579.2.462 Unknown [id number] 2.16.8 40.1.736330.3.579.2.462 Unknown [id number] 2.16.8 40.1.887239.3.579.2.462 Unknown [id number] 2.16.8 40.1.247916.3.579.2.462 Unknown [id number] 2.16.8 40.1.123712.3.579.2.462 Unknown [id number] 2.16.8 40.1.249745.3.579.2.462 Unknown [id number] 2.16.8 40.1.798011.3.579.2.462 Unknown [id number] 2.16.8 40.1.733442.3.579.2.462 Unknown [id number] 2.16.8 40.1.857367.3.579.2.462 Unknown [id number] 2.16.8 40.1.634890.3.579.2.462 Unknown [id number] 2.16.8 40.1.491474.3.579.2.462 Unknown [id number] 2.16.8 40.1.069685.3.579.2.462 Unknown [id number] 2.16.8 40.1.346362.3.579.2.462 Unknown [id number] 2.16.8 40.1.427691.3.579.2.462 Unknown [id number] 2.16.8 40.1.178139.3.579.2.462 Unknown [id number] 2.16.8 40.1.651347.3.579.2.462 Unknown [id number] 2.16.8 40.1.884036.3.579.2.462 Unknown [id number] 2.16.8 40.1.969504.3.579.2.462 Unknown [id number] 2.16.8 40.1.299657.3.579.2.462 Unknown [id number] 2.16.8 40.1.543801.3.579.2.462 Unknown [id number] 2.16.8 40.1.438514.3.579.2.462 Unknown [id number] 2.16.8 40.1.292331.3.579.2.462 Unknown [id number] 2.16.8 40.1.903584.3.579.2.462 Unknown [id number] 2.16.8 40.1.971124.3.579.2.462 Unknown [id number] 2.16.8 40.1.661570.3.579.2.462 Unknown [id number] 2.16.8 40.1.686625.3.579.2.462 Unknown [id number] 2.16.8 40.1.286578.3.579.2.462 Unknown [id number] 2.16.8 40.1.075209.3.579.2.462 Unknown [id number] 2.16.8 40.1.283862.3.579.2.462 Social History Date Type Detail Facility Start: 05-03-2020 End: 03-17-2024 Tobacco smoking status IAIS Unknown if ever smoked [facility] Start: 09-01-2018 Cigarettes [facility] Start: 1955 Sex Assigned At Female [facility] Start: 10-09-2023 Tobacco smoking status Ex-smoker (finding) [facility] Start: 01-04-2025 End: 04-18-2025 Tobacco smoking status NHIS Smokes tobacco daily (finding) [facility] Start: 02-05-2025 End: 03-01-2025 Sex Female (finding) [facility] Start: 04-12-2025 Tobacco smoking status NHIS Current some day smoker [facility] NEGATED: Highlighted row [facility] NEGATED: Highlighted row Not [facility] Medical Equipment Procedure Code Equipment Code Equipment Origin al Text Equipment Identifier Dates Femoral-femoral crossover arteriogram CRYOLIFE, FEMORAL-POPLITEAL ARTERY FDA Start: 01-21-2024 Femoral-femoral crossover arteriogram Ligation clip, metallic [id number] FDA Start: 01-21-2024 Femoral-femoral crossover arteriogram Ligation clip, metallic ()[id number] FDA Start: 01-21-2024 Femoral-femoral crossover arteriogram Ligation clip, metallic ()[id number] FDA Start: 01-21-2024 Femoral-femoral crossover arteriogram Ligation clip, metallic ()[id number] FDA Start: 01-21-2024 Femoral-femoral crossover arteriogram CRYOLIFE, [...] arteriogram CRYOLIFE, FEMORAL-POPLITEAL ARTERY FDA Start: 01-21-2024 EGD, with monitored anesthesia care Ligation clip, metallic [id number] FDA Start: 04-18-2025 Debridement, wound AXIOFILL, 250MG FDA S tart: [...] Facility 01-22-2024 Functional status Ambulates;Bedside Commo de [facility] Work Phone: Mental Status Date Assessment Result Facility 04-18-2025 Cognitive function Level Of Cons ciousness Awake;Drowsy [facility] Work Phone: 04-18-2025 Cognitive function Voice/Name [facility] Work Phone: 01-04-2025 Cognitive function Voice/Name [facility] Work Phone: 07-28-2024 Cognitive function Awake;Alert;A ppropriate;Follow s Commands [facility] Work Phone: 07-21-2024 Cognitive function Arousable To Voice/Nam e [facility] Work Phone: 01-22-2024 Cognitive function Voice/Name [facility] Work Phone: Clinical Notes 01-08-2024 to 04-18-2025 Note Date & Type Note Facility 04-18-2025 Consult note [facility] 04-18-2025 Consult note [facility] 04-18-2025 Procedure note [facility] 04-18-2025 Procedure note [facility] 04-18-2025 History and physi michael note [facility] 04-18-2025 Note [facility] 04-18-2025 Consult note [facility] 02-24-2025 Radiology Diagnostic study note [facility] Imaging Services [address] [place], [place] [address] ABD Limited w/ Elastography MR#: [id number] Acct: [id number] Name: BRENDA MACEDO Rep #: [id number] : 1955 F 69 From: Chica Cain MD PCP: Carline Ashley, CATH LABORATORY TECHNICIAN-C Status: REG CLI Study:ABD Limited w/ Elastography Date of Exa m: 02/24/25 Exam# [id number] Ordering Dr: Tamar Lacey PROCEDURE: ULTRASOUND ABDOMEN [...] (7.3kPa) F4: 1.80 m/s (10kPa) Reading Location: [place] [address] CC: ANN MARIE Ashley; MAO Byrd ~ Graphic Coordinator: Signed [facility] 02-15-2025 Evaluation note Diagnosis Onset Date Resolution Anemia acute February 15 8:17am Esophageal varices acute February 15, 2025 8:17am Gastric ulcer acute February 15, 2025 8:17am Iron (Fe) deficiency anemia resolved February 21, 2025 12:57pm Hypoxemia acute March 10 10:05am COPD (chronic obstructive pulmonary disease) chronic March 10, 2025 10:05am Nicotine dependence, cigarettes, uncomplicated chronic March 10, 2025 10:05am Anemia acute April 18, 2025 5:21am Esophageal varices acute April 182024 5:21am Gastric ulcer acute April 18, 025 5:21am Esophageal varices acute April 172024 9:48am Gastric ulcer acute May 10, 2025 9:48am Liver fibrosis acute May 10, 2025 9:48am [facility] Work Phone: 1(369) 488-976004-02-2025 Evaluation note* Diagnosis Onset Date Resolution Status Admit Date Anemia acute February 15 8:17am Esophageal varices acute February 15, 2025 8:17am Gastric ulcer acute February 15, 2025 8:17am Iron (Fe) deficiency anemia resolved February 21, 2025 12:57pm Hypoxemia acute March 10 10:05am COPD (chronic obstructive pulmonary disease) chronic March 10, 025 10:05am Nicotine dependence, cigarettes, uncomplicated chronic March 10, 2025 10:05am Anemia acute April 18, 2025 5:21am Esophageal varices acute April 182024 5:21am Gastric ulcer acute April 18 025 5:21am Esophageal varices acute April 172024 9:48am Gastric ulcer acute May 10, 2025 9:48am Liver fibrosis acute May 10, 2025 9:48am Hypoxemia acute June 02 12:43pm COPD (chronic obstructive pulmonary disease) chronic June 02 12:43pm Nicotine dependence, cigarettes, uncomplicated chronic May 162024 12:43pm [employer] Work Phone: 1(447) 417-511502-26-2025 Evaluation note* Diagnosis Onset Date Resolution Status Admit Date COPD (chronic obstructive pulmonary disease) chronic December 10:31am Nicotine dependence, cigarettes, uncomplicated chronic Februa 2024 10:31am Anemia acute February 15 8:17am Esophageal varices acute February 15, 2025 8:17am Gastric ulcer acute February 15, 2025 8:17am Iron (Fe) deficiency anemia resolved February 21, 2025 12:57pm Hypoxemia acute March 10 10:05am COPD (chronic obstructive pulmonary disease) chronic March 10, 025 10:05am Nicotine dependence, cigarettes, uncomplicated chronic March 10, 2025 10:05am Anemia acute April 18, 2025 5:21am Esophageal varices acute April 182024 5:21am Gastric ulcer acute April 18 025 5:21am Liver fibrosis acute May 10, 2025 9:48am [employer] Work Phone: 1(614) 755-395902-19-2025 Evaluation note* Diagnosis Onset Date Resolution Status Admit Date Anemia acute January 04, 2025 7:03am Gastric ulcer acute January 042024 7:03am COPD (chronic obstructive pulmonary disease) chronic December 10:31am Nicotine dependence, cigarettes, uncomplicated chronic Februa 2024 10:31am Anemia acute February 15 8:17am Esophageal varices acute February 15, 2025 8:17am Gastric ulcer acute February 15, 2025 8:17am [facility] Work Phone: 1(857) 294-883102-19-2025 Evaluation note* Diagnosis Onset Date Resolution Status [...] deficiency anemia resolved February 21, 2025 12:57pm [facility] Work Phone: 1(330) 557-732402-19-2025 Evaluation note* Diagnosis Onset Date Resolution Status [...] (chronic obstructive pulmonary disease) chronic March 10, 025 10:05am Nicotine dependence, cigarettes, uncomplicated chronic March 10, 2025 10:05am [facility] Work Phone: 1(307) 193-946802-19-2025 Evaluation note* Diagnosis Onset Date Resolution Status [...] (chronic obstructive pulmonary disease) chronic March 10, 025 10:05am Nicotine dependence, cigarettes, uncomplicated chronic March 10, 2025 10:05am Anemia acute April 18, 2025 5:21am Esophageal varices acute April 182024 5:21am Gastric ulcer acute April 18, 025 5:21am [facility] Work Phone: [phone]) [id number] [facility]12-05-2024 Evaluation note* Diagnosis Onset Date Resolution Status Admit Date Anemia acute October 20, 2024 10:11am Gastric ulcer acute October 10:11am Anemia acute January 04, 2025 7:03am Gastric ulcer acute January 042024 7:03am COPD (chronic obstructive pulmonary disease) chronic December 10:31am Nicotine dependence, cigarettes, uncomplicated chronic Februa 2024 10:31am [facility] Work Phone: 1(996) 825-939410-28-2024 [facility]04-03-2024 Progress note Author Momo Camacho [facility] February 17, 2024 1:24pm Note Date/Time February 17, 2024 1:24 pm [facility] [address] [place] [address] Progress Note - Wound Care 02/17/24 1322 MR#: [id number] Acct: [id number] Name: BRENDA MACEDO Rep #:[id number] : 1955 68 From: Momo Camacho D PM PCP: Carline Ashley, CATH LABORATORY TECHNICIAN-C Sta tus:REG RCR Location: History of Present Illness Date of Service: 02/17/24 Chief Complaint: Wet gangrene status post incision bone cortex right foot fourthdigit History of Wound: Wet gangrene status post incision bone cortex right foot fourth digit Subjective Subjective Mrs. Macedo is a 68-year-old female presenting to wound care center at [facility] follow-up and evaluation of amputation [...] Start: 02/17/24 13:07 Freq: Status: Active Protocol: .LOWEXT Activity Type Activity Date Activity User E-sign Co-sign Detail Recorded Client Recorded Date Recorded By Document 02/17/24 13:07 Desktop 02/17/24 13:13 02/17/24 13:07 - Today's Visit Information Type of service Follow-up Visit (Physician/HAT MENDER ) Arrival Mode Ambulatory, Walker Transfer Assistance [...] 0-10 Numeric Is Patient Pain Free? Yes WC - Nurse 1 - General Ulcer Measurement Start: 02/17/24 13:07 Freq: Status: Active Protocol: Activity Type Activity Date Activity User E-sign Co-sign Detail Recorded Client Recorded Date Recorded By Document 02/17/24 13:07 RB Desktop 02/17/24 13:13 RB 02/17/24 13:07 Wound Center Nurse [...] Present -Granulation Amt Large (67-100%) -Granulation Quality [place] -Slough/Fibrin No -Structure Exposed N/A -Texture (Fabiana-wound Skin Appearance) Assessed -Moisture (Fabiana-wound Skin Appearance) Assessed,Dry/ Scaly -Color (Fabiana-wound Skin Appearance) Assessed -Temperature (Fabiana-wound Skin No Abnormality Appearance) (Pt Warm) -Tenderness on Palpation (Fabiana-wound No Skin Appearance) -Ulcer Cleansing Wound Cleanser -Foul Odor after Cleansing No Lower Limb Edema Present Yes Left Calf (cm) 38.2 Left Ankle (cm) 22 Assessment/Plan Assessment/Plan (1) 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, left leg: CODE(S): I70.262 - 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, left leg [...] - Disorder of arteries and arterioles, unspecified 02/17/244 <Electronically signed by Momo Camacho DPM> Cosigner Signature (if applicable): CC: ~ Signed [facility] Work Phone: 1(415) 798-782703-20-2024 Progress note Author Momo Camacho [facility] February 03, 2024 1:29pm Note Date/Time February 03, 2024 1:2 9pm [facility] [address] [place] [address] Progress Note - Wound Care 02/03/24 1325 MR#: [id number] Acct: [id number] Name: BRENDA MACEDO Rep #:[id number] : 1955 68 From: Momo KING PCP: ANN MARIE Corona tus:REG RCR Location: [...] female presenting to wound care center at [facility] follow-up and evaluation of amputation [...] Start: 01/27/24 09:59 Freq: Status: Active Protocol: [email or web address] Activity Type Activity Date Activity User E-sign Co-sign Detail Recorded Client Recorded Date Recorded By Document 01/27/24 10:00 KW Desktop 01/27/24 10:14 KW Document 02/03/24 11:34 KW Desktop 02/03/24 11:46 KW 01/27/24 02/03/24 10:00 11:34 - Today's Visit Information Type of service Initial Visit Follow-up Visit (Physician/HAT MENDER ) Arrival Mode Ambulatory, Ambulatory, Walker Walker [...] Free? Yes Yes Communication Assessment Preferred language Serbian Assistant Portfolio Manager Required No Able to Read Yes Able [...] in Ability to Perform Denies Any Declines Culture/Shinto/Cafeteria Associate Cultural/Shinto Needs that may affect No Treatment Plan Would you allow our hospital health care marketing manager to No meet you for the purpose of spiritual/ emotional support? Cafeteria Associate to contact place of jainism No WC - Nurse 1 - General Ulcer Measurement Start: 01/27/24 09:59 Freq: Status: Active Protocol: Activity Type Activity Date Activity User E-sign Co-sign Detail Recorded Client Recorded Date Recorded By Document 01/27/24 10:00 KW [employer] 01/27/24 10:14 KW Document 02/03/24 11:34 Cell>[employer] 02/03/24 11:46 KW 01/27/24 02/03/24 10:00 11:34 [...] Recorded Date Recorded By Document 01/27/24 10:39 [employer] 01/27/24 10:40 Document 02/03/24 12:00 [employer] 02/03/24 12:03 01/27/24 02/03/24 10:39 12:00 Wound [...] 01/27/24 10:53 KW Desktop 01/27/24 10:54 KW Document 02/03/24 12:09 KW Desktop 02/03/24 12:11 KW 01/27/24 02/03/24 10:53 12:09 [...] Provided Yes Assessment/Plan Assessment/Plan (1) 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, left leg: CODE(S): I70.262 - 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 ON LICENSE OF [facility] Medical History Arthritis Carotid stenosis, [...] Start: 01/27/24 09:59 Freq: Status: Active Protocol: .LOWEXT Activity Type Activity Date Activity User E-sign [...] Pain Free? Yes Communication Assessment Preferred language Serbian Assistant Portfolio Manager Required No Able to Read Yes Able [...] in Ability to Perform Denies Any Declines Culture/Shinto/Cafeteria Associate Cultural/Shinto Needs that may affect No Treatment Plan Would you allow our hospital health care marketing manager to No meet you for the purpose of spiritual/ emotional support? Cafeteria Associate to contact place of jainism No WC - Nurse 1 - General Ulcer Measurement Start: 01/27/24 09:59 Freq: Status: Active Protocol: Activity Type Activity Date Activity User E-sign Co-sign Detail Recorded Client Recorded Date Recorded By Document 01/27/24 10:00 Cell>[employer] 01/27/24 10:14 KW 01/27/24 10:00 Wound Center [...] Recorded Date Recorded By Document 01/27/24 10:39 [facility] Laptop 01/27/24 10:40 01/27/24 10:39 Wound Center [...] Recorded Date Recorded By Document 01/27/24 10:53 Cell>[employer] 01/27/24 10:54 03/13/24 10:53 Wound Care Center Nurse 3 #1 LT 4TH TOE AMP SITE -Primary Dressing Covered/Secured with Dry Gauze & Roll Gauze, Secured with Tape Left -Tubular Bandage Single Layer -Size of Tubigrip Used Size D -Size D ($) 1 Pain Scale: 0-10 Numeric Is Patient Pain Free? 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, left leg 01/27/24 1206 <Electronically signed by Momo Camacho DPM> Cosigner Signature (if applicable): CC: ~ Signed [facility] Work Phone: 1(800) 334-624603-08-2024 Discharge summary Author Armani Moses [facility] January 22, 2024 11:08am Note Date/Time January 22, 2024 11:0 2am [facility] Medical Records Department [address] [place] [address] Instructions for Home/Discharge Instructions 01/22/24 1101 MR#: [id number] Acct: [id number] Name: BRENDA MACEDO Rep #:[id number] : 1955 68 From: Armani lyles DO [...] call forappointment date and time.) Carline Ashley NP, CATH LABORATORY TECHNICIAN-C [Primary Care Provider] - Disposition Disposition (needs filled in before D/C Order can be placed): Home, Self Care 01/22/24 1108<Electronically signed by Armani Moses DO>Armani Moses DO CC: DPM Dr. Momo Camacho; CATH LABORATORY TECHNICIAN-C Carline Ashley; Dr. Armani Moses DO; Dr. Selvin Barrera DO; Dr. Selvin Frost MD; Dr. Lynn Enriquez MD; Dr. Liz Murillo MD; Dr. Kevin Souza MD ~ Signed [facility] Work Phone: 1(178) 556-368203-07-2024 Progress note Author Lynn Enriquez [facility] January 21, 2024 7:23pm Note Date/Time January 21, 2024 7:24 pm [facility] Medical Records Department [address] [place] [address] Progress Note - Nephrology 01/21/241922 MR#: [id number] Acct: [id number] Name: BRENDA MACEDO Rep #:[id number] : 1955 68 From: Lynn owen MD PCP: ANN MARIE Corona Sta tus:ADM IN Location: ICU CVICU 3-1 Subjective Subjective no new complaints Objective [...] Cosigner Signature (if applicable): CC: ~ Signed [facility] Work Phone: 1(417) 620-714603-07-2024 Progress note Author Armani Moses [facility] January 21, 2024 5:44pm Note Date/Time January 21, 2024 2:56 pm [facility] Medical Records Department [address] [place] [address] Progress Note - Hospitalist 01/21/24 1456 MR#: [id number] Acct: [id number] Name: BRENDA MACEDO Rep #:[id number] : 1955 68 From: Armani lyles DO PCP: ANN MARIE Corona tus:ADM IN Location: ICU CVICU20 3-1 Reason for Visit Reason for Visit: Diagnoses 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 Charges/Coding Visit Charges Inpatient E&M: 05097 Subs Hosp L1 01/21/24 6113 <Electronically signed by Armani Moses DO> Cosigner Signature (if applicable): CC: ~ Signed [facility] Work Phone: [phone]) 252-453103-07-2024 Procedure [facility] 01-20-2024 Progress note Author Selvin Frost [facility] January 20, 2024 3:33pm Note Date/Time January 20, 2024 3:19 pm [facility] Medical Records Department [address] [place] [address] Progress Note - Surgery 01/20/24 1514 MR#: [id number] Acct: [id number] Name: BRENDA MACEDO Rep #:[id number] : 1955 68 From: Katie CAVANAUGH PCP: Carline Ashley, CATH LABORATORY TECHNICIAN-C Sta tus:ADM IN Location: MS3 HO281-8 Subjective Subjective Patient was seen resting comfortably [...] Assessment & Plan Assessment/Plan (1) 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 She remains agreeable to proceed. NPO after midnight. Continue ASA, no need to hold for surgery. 01/20/24 1519 <Electronically signed by Katie CAVANAUGH> Cosigner Signature (if applicable): 01/20/24 1533 <Electronically signed by Selvin Frost MD> CC: ~ Signed [facility] Work Phone: 1([phone]) 480-731603-06-2024 Progress note Author Armani Moses [facility] January 20, 2024 3:08pm Note Date/Time January 20, 2024 1:20 pm [facility] Medical Records Department [address] [place] [address] Progress Note - Hospitalist 01/20/24 1320 MR#: [id number] Acct: [id number] Name: BRENDA MACEDO Rep #:[id number] : 1955 68 From: Armani lyles DO PCP: ANN MARIE Corona Sta tus:ADM IN Location: [place] [address]-1 Reason for Visit Reason for Visit: Diagnoses 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 Charges/Coding Visit Charges Inpatient E&M: 74131 Subs Hosp L1 01/20/24 1508 <Electronically signed by Armani Moses DO> Cosigner Signature (if applicable): CC: ~ Signed [facility] Work Phone: 1(799) 960-619003-05-2024 Progress note Author Kevin Souza [facility] January 19, 2024 1:58pm Note Date/Time January 19, 2024 1:58 pm [facility] Medical Records Department [address] [place] [address] Progress Note - Infect Disease 01/19/24 1357 MR#: [id number] Acct: [id number] Name: BRENDA MACEDO Rep #:[id number] : 1955 68 From: Kevin gamboa MD PCP: ANN MARIE Corona tus:ADM IN Location: MS3 [id number] ID ID: Route of nutrition/ use of [...] issues (3) Peripheral arterial occlusive disease: 01/19/24 3088 <Electronically signed by Kevin Souza MD> Cosigner Signature (if applicable): CC: ~ Signed [facility] Work Phone: 1(580) 659-135503-05-2024 Progress note Author Momo Camacho [facility] January 19, 2024 12:19pm Note Date/Time January 19, 2024 12:0 4pm [facility] Medical Records Department [address] [place] [address] Progress Note - Surgery 01/19/24 1203 MR#: [id number] Acct: [id number] Name: BRENDA MACEDO Rep #:[id number] : 1955 68 From: Momo Camacho D PM PCP: ANN MARIE Corona tus:ADM IN Location: MS3 ZN870-1 Subjective Subjective Ms. Macedo is a 62-year-old [...] patient's care! (2) Gangrene: (3) 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, left le01/19/24 1219 <Electronically signed by Momo Camacho DPM> Israeligner Signature (if applicable): CC: ~ Signed [facility] Work Phone: 1(753) 248-907703-05-2024 Progress note Author Armani Moses [facility] January 19, 2024 11:28am Note Date/Time January 19, 2024 10:1 1am [facility] Medical Records Department [address] [place] [address] Progress Note - Hospitalist 01/19/24 1011 MR#: [id number] Acct: [id number] Name: BRENDA MACEDO Rep #:[id number] : 1955 68 From: Armani lyles DO PCP: ANN MARIE Corona Sta tus:ADM IN Location: [address] Reason for Visit Reason for Visit: Diagnoses 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 Charges/Coding Visit Charges Inpatient E&M: 52957 Subs Hosp L1 01/19/24 1128 <Electronically signed by Armani Moses DO> Cosigner Signature (if applicable): CC: ~ Signed [facility] Work Phone: 1([phone]) 951-432703-05-2024 Progress note Author Lynn Enriquez [facility] January 19, 2024 9:50am Note Date/Time January 14, 2024 10:38am [facility] Medical Records Department [address] [place] [address] Progress Note - Nephrology 01/14/24 1031 MR#: [id number] Acct: [id number] Name: BRENDA MACEDO Rep #:[id number] : 1955 68 From: Cee clemons CATH LABORATORY TECHNICIAN-C PCP: ANN MARIE Corona Sta tus:ADM IN Location: MS3 EK371-5 Subjective Subjective Sitting in chair. No complaints. [...] Sl. Cloudy, Urine pH 6.5, Ur Specific [place]wich 1.010, Urine Protein Negative, Urine Glucose (UA) [...] 76.9 H, Lymph % (Auto) 10.9 L, Mckean % (Auto) 9.2, Eos % (Auto) 2.1, [...] and bicarb normal. 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 Will continue to follow labs. BPs acceptable. [...] by Lynn Enriquez MD> CC: ~ Signed [facility] Work Phone: 1(150) 114-717503-04-2024 Progress note Author Selvin Frost [facility] January 18, 2024 5:07pm Note Date/Time January 18, 2024 5:04 pm [facility] Medical Records Department [address] [place] [address] Progress Note - Surgery 01/18/24 1703 MR#: [id number] Acct: [id number] Name: BRENDA MACEDO Rep #:[id number] : 1955 68 From: Selvin Frost MD PCP: ANN MARIE Corona Sta tus:ADM IN Location: MS3 HB121-4 Subjective Subjective Doing well, no foot pain, [...] Assessment & Plan Assessment/Plan (1) 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, left leg: PLAN: -unsuccessful effort at percutaneous treatment; early chronic thrombus could not be cleared with aspiration, too unstable for angioplasty -some improved perfusion with small flow lumen created, not likely durable -cont heparin drip -plan fem-fem AM -Cr continues to improve Charges/Coding Visit Charges Inpatient E&M: 75611 Subs Hosp L2 01/18/24 1707 <Electronically signed by Selvin Frost MD> Cosigner Signature (if applicable): CC: ~ Signed [facility] Work Phone: 1(270) 841-911003-04-2024 Progress note Author Armani Moses [facility] January 18, 2024 4:13pm Note Date/Time January 18, 2024 1:05 pm [facility] Medical Records Department [address] [place] [address] Progress Note - Hospitalist 01/18/24 1305 MR#: [id number] Acct: [id number] Name: BRENDA MACEDO Rep #:[id number] : 1955 68 From: Armani lyles DO PCP: Carline Ashley CATH LABORATORY TECHNICIAN-Jason Edge tus:ADM IN Location: [place] [address]1 Reason for Visit Reason for Visit: Diagnoses 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 Charges/Coding Visit Charges Inpatient E&M: 34396 Subs Hosp L2 01/18/24 1613 <Electronically signed by Armani Moses DO> Cosigner Signature (if applicable): CC: ~ Signed [facility] Work Phone: [phone]) 778-749903-03-2024 Progress note Author Selvin Frost [facility] January 17, 2024 5:57pm Note Date/Time January 15, 2024 4:39 pm [facility] Medical Records Department [address] [place] [address] Progress Note - Surgery 01/15/24 1636 MR#: [id number] Acct: [id number] Name: BRENDA MACEDO Rep #:[id number] : 1955 68 From: Katie CAVANAUGH PCP: Carline Ashley, ANN MARIE Sta tus:ADM IN Location: MS3 BE903-8 Subjective Subjective Patient was seen resting comfortably [...] 01/15/24 14:31 01/15/24 14:31 01/15/24 14:31 01/15/24 14:01/15/24 14:01/15/24 16:06 01/15/24 16:06 Oxygen Flow Rate (L/min) [...] (Auto) 77.3 H, Lymph % (Auto) 9.7L, Mckean % (Auto) 10.3 H, Eos % (Auto) [...] Assessment & Plan Assessment/Plan (1) 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, left leg: [...] by Katie CAVANAUGH> Cosigner Signature (if applicable): 01/17/24 1757 <Electronically signed by Selvin Frost MD> CC: ~ Signed [facility] Work Phone: 1(667) 984-657903-03-2024 Progress note Author Lynn Enriquez [facility] January 17, 2024 3:55pm Note Date/Time January 17, 2024 3:55 pm [facility] Medical Records Department [address] [place] [address] Progress Note - Nephrology 01/17/24 1554 MR#: [id number] Acct: [id number] Name: BRENDA MACEDO Rep #:[id number] : 1955 68 From: Lynn owen MD PCP: ANN MARIE Corona Sta tus:ADM IN Location: [place] [address] Subjective Subjective No new complaints. Objective Data [...] sodium 83. Creatinine is trending down. 01/17/24 6959 <Electronically signed by Lynn Enriquez MD> Cosigner Signature (if applicable): CC: ~ Signed [facility] Work Phone: 1(653) 357-148303-03-2024 Progress note Author Selvin Barrera [facility] January 17, 2024 10:29am Note Date/Time January 17, 2024 7:23 am [facility] Medical Records Department [address] [place] [address] Progress Note - Hospitalist 01/17/24 0720 MR#: [id number] Acct: [id number] Name: BRENDA MACEDO Rep #:[id number] : 1955 68 From: Selvin Barrera DO PCP: ANN MARIE Corona tus:ADM IN Location: [place] [address]-1 Reason for Visit Reason for Visit: Diagnoses 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 Charges/Coding Visit Charges Inpatient E&M: 34772 Subs Hosp L2 01/17/24 1029 <Electronically signed by Selvin Barrera DO> Cosigner Signature (if applicable): CC: ~ Signed [facility] Work Phone: 1(211) 330-318603-02-2024 Progress note Author Selvin Barrera [facility] January 16, 2024 10:07am Note Date/Time January 16, 2024 7:05 am [facility] Medical Records Department [address] [place] [address] Progress Note - Hospitalist 01/16/24 0700 MR#: [id number] Acct: [id number] Name: BRENDA MACEDO Rep #:[id number] : 1955 68 From: Selvin Barrera DO PCP: Carline Ashley, CATH LABORATORY TECHNICIAN-C Sta tus:ADM IN Location: [place] [address] Reason for Visit Reason for Visit: Diagnoses 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, left leg [...] (Auto) 77.3 H, Lymph % (Auto) 9.7L, Mckean % (Auto) 10.3 H, Eos % (Auto) [...] disposition: TBD Charges/Coding Visit Charges Inpatient E&M: 35211 Subs Hosp L2 01/16/24 1007 <Electronically signed by Selvin Barrera DO> Cosigner Signature (if applicable): CC: ~ Signed [facility] Work Phone: 1(959) 986-296603-01-2024 Progress note Author Lynn Enriquez [facility] January 15, 2024 4:34pm Note Date/Time January 15, 2024 4:34 pm [facility] Medical Records Department [address] [place] [address] Progress Note - Nephrology 01/15/24 1632 MR#: [id number] Acct: [id number] Name: BRENDA MACEDO Rep #:[id number] : 1955 68 From: Lynn owen MD PCP: Carline Ashley, CATH LABORATORY TECHNICIANReneeC Kely tus:ADM IN Location: [place] [address]1 Subjective Subjective no new events Objective Data [...] (Auto) 77.3 H, Lymph % (Auto) 9.7L, Mckean % (Auto) 10.3 H, Eos % (Auto) [...] and bicarb normal. 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 Will continue to follow labs. BPs acceptable. [...] Cosigner Signature (if applicable): CC: ~ Signed [facility] Work Phone: 1(915) 394-323003-01-2024 Procedure [facility] 01-15-2024 Progress note Author Selvin Barrera [facility] January 15, 2024 11:26am Note Date/Time January 15, 2024 7:14 am [facility] Medical Records Department [address] [place] [address] Progress Note - Hospitalist 01/15/2411 MR#: [id number] Acct: [id number] Name: BRENDA MACEDO Rep #:[id number] : 1955 68 From: Selvin Barrera DO PCP: ANN MARIE Corona Sta tus:ADM IN Location: [place] [address] Subjective Subjective Feels well. No new events. [...] stenting * follows with Dr. Song at [place] * Vascular surgery here consulted as noted [...] disposition: TBD Charges/Coding Visit Charges Inpatient E&M: 93486 Subs Hosp L2 01/15/24 1126 <Electronically signed by Selvin Barrera DO> Cosigner Signature (if applicable): CC: ~ Signed [facility] Work Phone: 1(897) 159-361002-29-2024 Progress note Author Selvin Frost [facility] January 14, 2024 6:28pm Note Date/Time January 14, 2024 8:58am [facility] Medical Records Department [address] [place] [address] Progress Note - Surgery 01/14/2453 MR#: [id number] Acct: [id number] Name: BRENDA MACEDO Rep #:[id number] : 1955 68 From: Katie CAVANAUGH PCP: ANN MARIE Corona tus:ADM IN Location: [facility] RT517-1 Subjective Subjective Patient is seen resting comfortably [...] Sl. 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 We again discussed the procedure including risks, benefits, and recovery and she remains agreeable to proceed. All questions/concerns were addressed. Continue ASA, Plavix. 01/14/24 0859 <Electronically signed by Katie CAVANAUGH> Cosigner Signature (if applicable): 01/14/241827 <Electronically signed by Selvin Frost MD> CC: ~ Signed [facility] Work Phone: 1(189) 450-918002-29-2024 Procedure [facility] 01-14-2024 Progress note Author Selvin Barrera [facility] January 14, 2024 11:07am Note Date/Time January 14, 2024 6:58am [facility] Medical Records Department [address] [place] [address] Progress Note - Hospitalist 01/14/24 0653 MR#: [id number] Acct: [id number] Name: BRENDA MACEDO Rep #:[id number] : 1955 68 From: Selvin Barrera DO PCP: ANN MARIE Corona Sta tus:ADM IN Location: [place] [address] Subjective Subjective Left foot is sore. No other complaints. Objective Data Objective Data Vital Signs: Vital Signs Temp Pulse Resp BP Pulse Ox O2 Del Method O2 Flow Rate 36.9 C 115 H 18 118/68 93 Nasal Cannula 3 01/13/24 21:01/13/24 21:01/13/24 21:01/13/24 21:01/13/24 21:01/13/24 21:01/13/24 21:09 Oxygen Flow Rate (L/min) 3 Oxygen [...] Sl. Cloudy, Urine pH 6.5, Ur Specific Sandwich 1.010, Urine Protein Negative, Urine Glucose (UA) [...] 76.9 H, Lymph % (Auto) 10.9 L, Mckean % (Auto) 9.2, Eos % (Auto) 2.1, [...] stenting * follows with Dr. Song at [place] * Vascular surgery here consulted as noted [...] disposition: TBD Charges/Coding Visit Charges Inpatient E&M: 95304 Subs Hosp L2 01/14/24 1107 <Electronically signed by Selvin Barrera DO> Cosigner Signature (if applicable): CC: ~ Signed [facility] Work Phone: 1(724) 265-636302-29-2024 Progress note Author Kevin Souza [facility] January 14, 2024 10:29am Note Date/Time January 14, 2024 10:29am [facility] Medical Records Department [address] [place] [address] Progress Note - Infect Disease 01/14/24 1027 MR#: [id number] Acct: [id number] Name: BRENDA MACEDO Rep #:[id number] : 1955 68 From: Kevin gamboa MD PCP: Carline Ashley, ANN MARIE Edge tus:ADM IN Location: [place] EE220-5 Physical Exam Narrative Feeling ok, no fever, [...] 1029 <Electronically signed by Kevin Souza MD> Israeligner Signature (if applicable): CC: ~ Signed [facility] Work Phone: 1(996) 572-330402-28-2024 [facility] Consult note Author Kevin Adkins [facility] January 13, 2024 2:26pm Note Date/Time January 13, 2024 2:20pm [facility] Medical Records Department [address] [place] [address] Pharmacokinetic/Renal -Consult 01/13/24 1420 MR#: [id number] Acct: [id number] Name: BRENDA MACEDO Rep #:[id number] : 1955 68 From: Kevin Adkins PCP: Carline Ashley CATH LABORATORY TECHNICIANLayla Sta tus:ADM IN Location: [place] [address] Consult Antibiotic Management Pharmacy has been consulted [...] signed by Kevin Adkins> Date _ Kevin Adkins Cosigner Signature (if applicable): Date _ CC: ~ Signed [facility] Work Phone: 1(736) 529-765302-28-2024 Consult note Author Kevin Souza [facility] January 13, 2024 1:10pm Note Date/Time January 12, 2024 6:44pm [facility] Medical Records Department [address] [place] [address] Pharmacokinetic/Renal -Consult 01/12/24 1839 MR#: [id number] Acct: [id number] Name: BRENDA MACEDO Rep #:[id number] : 1955 68 From: Marco A hardin PCP: ANN MARIE Croona tus:ADM IN Location: [place] [address] Consult Antibiotic Management Pharmacy has been consulted [...] Toe Wound Culture - Preliminary GNR lactose radiation control specialist 01/10/24 10:02 Wound - Toe Gram Stain [...] [date and time ordered]: 01/13/24 12:00 01/12/24 2034 <Electronically signed by Marco A Heart erg> Date _ Marco A Coates 01/13/24 1310 <Electronically signed by Kevin ojeda MD> Cosigner Signature (if applicable): Date Kevin Souza MD CC: ~ Signed [facility] Work Phone: 1(580) 822-168502-28-2024 Progress note Author Selvin Barrera [facility] January 13, 2024 11:43am Note Date/Time January 13, 2024 7:15am [facility] Medical Records Department [address] [facility] [place] [address] Progress Note - Hospitalist 01/13/24707 MR#: [id number] Acct: [id number] Name: BRENDA MACEDO Rep #:[id number] : 1955 68 From: Selvin Barrera DO PCP: ANN MARIE Corona tus:ADM IN Location: [place] [address] Reason for Visit Reason for Visit: Diagnoses 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 Doppler/PVR waveforms and segmental pressures reveal rujta-wcseg-fbigrf femoral disease. Ordering Physician: Momo Camacho Referring Physician: Carline Ashley Performed By: RAMON HUMPHREY RVT Physical Exam Const alert and no apparent [...] stenting * follows with Dr. Song at [place] * Vascular surgery here consulted as noted [...] disposition: TBD Charges/Coding Visit Charges Inpatient E&M: 50316 Subs Hosp L2 01/13/24 1143 <Electronically signed by Selvin Barrera DO> Cosigner Signature (if applicable): CC: ~ Signed [facility] Work Phone: [phone]) 964-742702-28-2024 Consult note Author Lynn Enriquez [facility] January 13, 2024 11:18am Note Date/Time January 13, 2024 11:18am [facility] Medical Records Department [address] [place] [address] Consultation - Nephrology 01/13/24 1114 MR#: [id number] Acct: [id number] Name: BRENDA MACEDO Rep #:[id number] : 1955 68 From: Lynn owen MD PCP: ANN MARIE Corona tus:ADM IN Location: [place] [address] Assessment & Plan Assessment/Plan (1) MELLY (acute [...] of urine whenever she has loosebowel movements. PFSH Medical History Arthritis Carotid stenosis, bilateral [...] (Auto) 76.5 H, Lymph % (Auto) 9.9L, Mckean % (Auto) 10.2 H, Eos % (Auto) [...] normal. Doppler/PVR waveforms and segmental pressures reveal rntmc-rzgfy-lafykb femoral disease. Ordering Physician: Momo Camacho Referring Physician: Carline Ashley Performed By: RAMON HUMPHREY T 01/13/24 1118 <Electronically signed by Lynn Enriquez MD> Cosigner Signature (if applicable): CC: KATERYNA Camacho; CATH LABORATORY TECHNICIANLayla Ashley; Dr. Armani Moses DO; Dr. Selvin Frost MD; Dr. Lynn Enriquez MD; Dr. Liz Murillo MD; Dr. Kevin Souza MD~ Signed [facility] Work Phone: 1(139) 950-801802-27-2024 Progress note Author Selvin Barrera [facility] January 12, 2024 12:45pm Note Date/Time January 12, 2024 7:07am [facility] Medical Records Department [address] [place] [address] Progress Note - Hospitalist 01/12/2459 MR#: [id number] Acct: [id number] Name: BRENDA MACEDO Rep #:[id number] : 1955 68 From: Selvin Barrera DO PCP: ANN MARIE Corona Sta tus:ADM IN Location: [place] [address] Subjective Subjective Feels well. Objective Data Objective [...] (Auto) 75.4 H, Lymph % (Auto) 11.8L, Mckean % (Auto) 10.3 H, Eos % (Auto) [...] stenting * follows with Dr. Song at [place] * Vascular surgery here consulted as noted [...] disposition: TBD Charges/Coding Visit Charges Inpatient E&M: 31921 Subs Hosp L2 01/12/24 1245 <Electronically signed by Selvin Barrera DO> Cosigner Signature (if applicable): CC: ~ Signed [facility] Work Phone: 1(253) 802-618202-27-2024 Progress note Author Kevin Burrellninger [facility] January 12, 2024 9:46am Note Date/Time January 12, 2024 9:46am [facility] Medical Records Department [address] [place] [address] Progress Note - Infect Disease 01/12/24 0945 MR#: [id number] Acct: [id number] Name: BRENDA MACEDO Rep #:[id number] : 1955 68 From: Kevin gamboa MD PCP: ANN MARIE Corona Sta tus:ADM IN Location: [place] CY808-3 Physical Exam Narrative Diarrhea improved, no fever. [...] Cosigner Signature (if applicable): CC: ~ Signed [facility] Work Phone: 1(379) 301-100102-27-2024 Progress note Author Momo Camacho [facility] January 12, 2024 7:46am Note Date/Time January 12, 2024 7:46am [facility] Medical Records Department [address] [place] [address] Progress Note - Surgery 01/12/2440 MR#: [id number] Acct: [id number] Name: BRENDA MACEDO Rep #:[id number] : 1955 68 From: Momo KING PCP: ANN MARIE Corona Sta tus:ADM IN Location: [place] WD225-6 Subjective Subjective Mrs. Macedo is a 68-year-old [...] (Auto) 75.4 H, Lymph % (Auto) 11.8L, Mckean % (Auto) 10.3 H, Eos % (Auto) [...] patient care. (2) Gangrene: (3) 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, left le01/12/24 0746 <Electronically signed by Momo Camacho DPM> Cosigner Signature (if applicable): CC: ~ Signed [facility] Work Phone: 1(395) 582-450202-27-2024 Consult note Author Rayshawn Dave [facility] January 12, 2024 5:38am Note Date/Time January 12, 2024 5:39am [facility] Medical Records Department [address] [place] [address] Pharmacokinetic/Renal -Consult 01/12/24 0538 MR#: [id number] Acct: [id number] Name: BRENDA MACEDO Rep #:[id number] : 1955 68 From: Rayshawn Irby od PCP: ANN MARIE Corona tus:ADM IN Y Location: [place] YW252-3 Consult Antibiotic Management Pharmacy has been consulted [...] Signature (if applicable): Date CC: ~ Signed [facility] Work Phone: 1(866) 835-487302-26-2024 Consult note Author Selvin Frost [facility] January 11, 2024 3:39pm Note Date/Time January 11, 2024 3:35pm [facility] Medical Records Department [address] [place] [address] Consultation - Surgical 01/11/24 1531 MR#: [id number] Acct: [id number] Name: BRENDA MACEDO Rep #:[id number] : 1955 68 From: Selvin Frost MD PCP: Carline Ashley CATH LABORATORY TECHNICIAN-C Sta tus:ADM IN Location: [facility] AC336-3 Assessment & Plan Assessment/Plan (1) 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 ON LICENSE OF [facility] Medical History Arthritis Carotid stenosis, [...] No growth. Charges/Coding Visit Charges Inpatient E&M: 40177 Init Hosp L3 01/11/24 1539 <Electronically signed by Selvin Frost MD> Cosigner Signature (if applicable): CC: DPEfrem Camacho; CATH LABORATORY TECHNICIANReneeC Carline Ashley; Dr. Armani Moses DO; Dr. Selvin Frost MD; Dr. Liz Murillo MD; Dr. Kevin Souza MD~ Signed [facility] Work Phone: 1(431) 559-136802-26-2024 Progress note Author Selvin Barrera [facility] January 11, 2024 11:37am Note Date/Time January 11, 2024 7:30am [facility] Medical Records Department [address] [place] [address] Progress Note - Hospitalist 01/11/24722 MR#: [id number] Acct: [id number] Name: BRENDA MACEDO Rep #:[id number] : 1955 68 From: Selvin Barrera DO PCP: ANN MARIE Corona Sta tus:ADM IN Location: [place] [address] Reason for Visit Reason for Visit: Diagnoses [...] stenting * follows with Dr. Song at [place] * Vascular surgery here consulted as noted above. Continue home aspirin, statin, cilostazol. Clopidogrel currently held. Chronic conditions: * COPD? Continue home inhalers. Incentive spirometry at bedside. * Hypertension? Continue home amlodipine. * Tobacco use? Former user. Advised continued cessation. DVT prophylaxis: SCDs CODE STATUS: Full code, verified Expected disposition: TBD Charges/Coding Visit Charges Inpatient E&M: 41661 Subs Hosp L2 01/11/24 1137 <Electronically signed by Selvin Barrera DO> Cosigner Signature (if applicable): CC: ~ Signed [facility] Work Phone: 1(500) 957-606602-26-2024 Consult note Author Kevin Harley [facility] January 11, 2024 9:56am Note Date/Time January 11, 2024 9:56am [facility] Medical Records Department [address] [place] [address] Consultation - Infectious Dx 01/11/24 0953 MR#: [id number] Acct: [id number] Name: BRENDA MACEDO Rep #:[id number] : 1955 68 From: Kevin gamboa MD PCP: ANN MARIE Corona tus:ADM IN Location: [place] [address] Assessment & Plan Assessment/Plan (1) Osteomyelitis: QUALIFIERS: [...] performed and neg except as noted above. ON LICENSE OF [facility] Medical History Arthritis Carotid stenosis, [...] Signed: Carline Patel MD at 13:41 EST Reading Location ID and State: [facility] Tel , Service support , 01/11/24 0956 <Electronically signed by Kevin Souza MD> Cosigner Signature (if applicable): CC: DPM Dr. Momo Camacho; CATH LABORATORY TECHNICIAN-C Carline Ashley; Dr. Armani Moses DO; Dr. Selvin Frost MD; Dr. Liz Murillo MD; Dr. Kevin Souza MD~ Signed [facility] Work Phone: [phone]) 417-602502-25-2024 Procedure [facility] 01-10-2024 Progress note Author Armani Moses [facility] January 10, 2024 1:36pm Note Date/Time January 10, 2024 12:06pm [facility] Medical Records Department [address] [place] [address] Progress Note - Hospitalist 01/10/24 1205 MR#: [id number] Acct: [id number] Name: BRENDA MACEDO Rep #:[id number] : 1955 68 From: Armani lyles DO PCP: Carline Ashley, ANN MARIE Sta tus:ADM IN Location: [facility] AJ141-7 Reason for Visit Reason for Visit: Diagnoses [...] Patient is a 68-year-old female who presented [facility] ED on 01/08/2024 with worsening [...] stenting ? Follows with Dr. Song at [place], has follow-up with him for some time. [...] 35 minutes. Charges/Coding Visit Charges Inpatient E&M: 97747 Subs Hosp L2 01/10/24 1336 <Electronically signed by Armani Moses DO> Cosigner Signature (if applicable): CC: ~ Signed [facility] Work Phone: 1(356) 558-918702-25-2024 Consult note Author Rayshawn Dave [facility] January 10, 2024 4:02am Note Date/Time January 10, 2024 4:02am [facility] Medical Records Department [address] [place] [address] Pharmacokinetic/Renal -Consult 01/10/24 0401 MR#: [id number] Acct: [id number] Name: BRENDA MACEDO Rep #:[id number] : 1955 68 From: Rayshawn Irby od PCP: ANN MARIE Corona tus:ADM IN Y Location: [place] [address] Consult Antibiotic Management Pharmacy has been consulted [...] [date and time ordered]: 01/12 @ 0330 01/10/24401 <Electronically signed by Rayshawn franklin> Date _ Rayshawn Will Signature (if applicable): Date CC: ~ Signed [facility] Work Phone: 1(906) 348-394502-24-2024 Progress note Author Armani Moses [facility] January 09, 2024 3:39pm Note Date/Time January 09, 2024 1:02pm [facility] Medical Records Department [address] [place] [address] Progress Note - Hospitalist 01/09/24 1302 MR#: [id number] Acct: [id number] Name: BRENDA MACEDO Rep #:[id number] : 1955 68 From: Armani lyles DO PCP: Carline Ashley, CATH LABORATORY TECHNICIAN-C Sta tus:ADM IN Location: [place] GL959-4 Reason for Visit Reason for Visit: Diagnoses [...] 73.6 H, Lymph % (Auto) 17.2 L, Mckean % (Auto) 7.0, Eos % (Auto) 1.0, [...] % (Auto) 65.7, Lymph % (Auto) 21.3, Mckean % (Auto) 10.2 H, Eos % (Auto) [...] 16:19 EST Reading Location ID and State: [facility] Tel , Service support , Chest X-Ray 01/08/24 15:50 IMPRESSION: COPD. No acute disease. Electronically Signed: Latrell Mac MD at 16:27 EST Reading Location ID and State: [address] Tel , Service support , Physical Exam [...] Patient is a 68-year-old female who presented [facility] ED on 01/08/2024 with worsening [...] stenting ? Follows with Dr. Song at [place], has follow-up with him for some time. [...] 35 minutes. Charges/Coding Visit Charges Inpatient E&M: 74807 Subs Hosp L2 01/09/24 1539 <Electronically signed by Armani Moses DO> Cosigner Signature (if applicable): CC: ~ Signed [facility] Work Phone: [phone]) 935-251202-24-2024 Consult note Author Momo Camacho [facility] January 09, 2024 9:52am Note Date/Time January 09, 2024 9:21am [facility] Medical Records Department [address] [place] [address] Consultation 01/09/24920 MR#: [id number] Acct: [id number] Name: BRENDA MACEDO Rep #:[id number] : 1955 68 From: Momo KING PCP: ANN MARIE Corona Sta tus:ADM IN Location: [address] Assessment & Plan Assessment/Plan (1) Osteomyelitis: QUALIFIERS: [...] is a 68 F who presents to [facility] after being evaluated and admitted from the emergency department secondary to left foot gangrene, fourth digit. Patient [facility] at [facility] [place] by Dr. Rose who initially diagnosed the [...] symptoms. Noother pedal complaints at this time. ON LICENSE OF [facility] Medical History Arthritis Carotid stenosis, [...] 73.6 H, Lymph % (Auto) 17.2 L, Mckean % (Auto) 7.0, Eos % (Auto) 1.0, [...] % (Auto) 65.7, Lymph % (Auto) 21.3, Mckean % (Auto) 10.2 H, Eos % (Auto) [...] 16:19 EST Reading Location ID and State: [address] [place] [address] Tel , Service support , Chest X-Ray 01/08/24 15:50 IMPRESSION: COPD. No acute disease. Electronically Signed: Latrell Mac MD at 16:27 EST Reading [facility] Tel , Service support , 01/09/24 0952 <Electronically signed by Momo Camacho DPM> Cosigner Signature (if applicable): CC: KATERYNA Camacho; CRUTISC Carline Ashley; Dr. Liz Murillo MD~ Signed [facility] Work Phone: 1(589) 939-206702-24-2024 Discharge summary Author Josiane Tucker [facility] January 09, 2024 12:36am Note Date/Time January 08, 2024 4:01pm [facility] Medical Records Department [address] [place] [address] Emergency Department Summary 01/08/24 MR#: [id number] Acct: [id number] Name: BRENDA MACEDO Rep #:[id number] : 1955 68 From: Josiane Tucker MD PCP: Carline Ashley, ANN MARIE Sta tus:ADM IN Location: [facility] LM190-5 HPI <Yin Pham RN - Last Filed: 01/08/24 16:35> History of Present Illness Chief Complaint: Wound Detail of Chief Complaint: Left fourth toe wound Informant: patient Onset/Context/Timing Onset: Month(s) (2) Context: Gradual Onset Timing: Continuous Quality: Aching Location: Left fourth toe Current Severity: 8/10 Maximum Severity: 8/10 Worsened by: Activity, palpation Relieved by: Rest Narrative Narrative: Patient presents to the ED from [facility]. She reports she was referred by the material processor for admission and surgery involving amputation ofthe [...] disease. She reports seeing Dr. Song from [place]. She has past history of stents in [...] Prior similar symptoms: No Recent Illness/Hospitalization: No ON LICENSE OF [facility] <Yin Pham RN - Last Filed: 01/08/24 16:35> ON LICENSE OF [facility] Medical History Arthritis Carotid stenosis, [...] Pham RN - Last Filed: 01/08/24 16:35> [facility] MDM Narrative Medical decision making narrative: IV [...] 73.6 H Lymph % (Auto) 17.2 L Mckean % (Auto) 7.0 Eos % (Auto) 1.0 [...] 16:19 EST Reading Location ID and State: [facility] [place] Tel , Service support , Chest X-Ray 01/08/24 15:50 IMPRESSION: COPD. No acute disease. Electronically Signed: Latrell Mac MD at 16:27 EST Reading Location ID and State: [employer] / [place] Tel , Service support , Differential Diagnosis Differential Diagnosis: Sepsis Management [...] Tucker MD - Last Filed: 01/08/24 16:39> [facility] Lab Data Labs: Laboratory Results - last 24 hr 01/08/24 15:35 WBC 8.0 RBC 4.90 Hgb 13.4 Hct 43.4 MCV 88.6 MCH 27.3 MCHC 30.9 L RDW Std Deviation 48.0 H RDW Coeff of Alfie 14.8 H Plt Count 327 MPV 9.9 Immature Gran % (Auto) 0.400 Neut % (Auto) 73.6 H Lymph % (Auto) 17.2 L Mckean % (Auto) 7.0 Eos % (Auto) 1.0 [...] 16:19 EST Reading Location ID and State: [address] [place] [address] Tel , Service support , Chest X-Ray 01/08/24 15:50 IMPRESSION: COPD. No acute disease. Electronically Signed: Latrell Mac MD at 16:27 EST Reading Location ID and State: [address] [place] [address] Tel , Service support , Treatment and [...] Impression: Gangrene Disposition Disposition: Acute Care Hospital [facility] What to do if you have Problems For any increased pain, shortness of breath, bleeding, nausea or vomiting, chestpain, or any unexpected problems, contact your Primary Care Provider. Call [facility] ([phone]) or report to the closest Emergency Room. Call 911 if necessary. 01/09/24 0036 <Electronically signed by Josiane Tucker MD> Cosigner Signature (if applicable): 01/08/24 1635 <Electronically signed by Yin Pham RN> CC: ANN MARIE Ashley ~ Signed [facility] Work Phone: 1(202) 264-949302-23-2024 Consult note Author Rosenda Cuevas [facility] January 08, 2024 6:42pm Note Date/Time January 08, 2024 6:42pm [facility] Medical Records Department [address] [place] [address] Pharmacokinetic/Renal -Consult 01/08/24 1841 MR#: [id number] Acct: [id number] Name: BRENDA MACEDO Rep #:[id number] : 1955 68 From: Rosenda Cuevas PCP: ANN MARIE Corona tus:ADM IN Y Location: [place] [address] Consult Antibiotic Management Pharmacy has been consulted [...] to monitor and adjust dosing as required. 01/08/24 6582 <Electronically signed by Rosenda Cuevas > Date _ Rosenda Cuevas Cosigner Signature (if applicable): Date CC: ~ Signed [facility] Work Phone: 1(611) 268-848102-23-2024 History and physical note Author Liz Murillo [facility] January 08, 2024 5:30pm Note Date/Time January 08, 2024 5:29pm [facility] Medical Records Department [address] [facility] [place] [address] H&P Exam - Hospitalist 01/08/24 1720 MR#: [id number] Acct: [id number] Name: BRENDA MACEDO Rep #:[id number] : 1955 68 From: Liz Murillo MD PCP: Carline Ashley, CATH LABORATORY TECHNICIAN-C Sta tus:ADM IN Location: [place] [address] HPI - General General Date of Admission: 01/08/24 Date of Service: 01/08/24 Chief Complaint: Fourth left toe pain and blackness HPI Narrative BRENDA MACEDO, is a 68-year-old female history of tobacco use, PVD, hypertension, COPD who presented to [facility] ED 01/08/2024 at the urging of her material processor for admission and surgery. She has had a left fourth toe wound for 2 months and [facility], shewas seen in podiatry recommended admission and surgery involving amputation of left fourth toe. Patient denies any injury or drainage from site. Does have history of peripheral arterial disease with stents and has seen Dr. Song from [place], had CT scan on 12/21 which showed the left common and external iliacs with stents were not patent and she is to have surgery with Dr. Song for this potentially next week. Pain has been an 8 out of 10 and has been difficult to manage on an outpatient basis. [facility] contacted in ED they recommended hospitalist admit with antibiotics and that podiatry will see in consult for surgery. Patient evaluated at bedside. She reports history as above and deniesany other present wounds, no fevers or chills. Had her stents in 2018 and both legs with Dr. Michelle but has since followed with Dr. Song in [place]. Has some swelling in lower extremities from not walking around because of her foot, rightgreater than left but she reports that it is not new. No other focal or acute complaints ON LICENSE OF [facility] Medical History Arthritis Carotid stenosis, [...] 73.6 H, Lymph % (Auto) 17.2 L, Mckean % (Auto) 7.0, Eos % (Auto) 1.0, [...] 16:19 EST Reading Location ID and State: [address] [place] [address] Tel , Service support , Chest X-Ray 01/08/24 15:50 IMPRESSION: COPD. No acute disease. Electronically Signed: Latrell Mac MD at 16:27 EST Reading Location ID and State: [employer] / [place] Tel , Service support , Assessment & [...] of stenting -Follows with Dr. Song at [place] and supposed to have intervention sometime in [...] documentation, 58Minutes Charges/Coding Visit Charges Inpatient E&M: 23227 Init Hosp L2 01/08/24 1730 <Electronically signed by Liz Murillo MD> Cosigner Signature (if applicable): CC: ANN MARIE Ashley; Dr. Liz Murillo MD~ Signed [facility] Work Phone: Consult note Author Nigel [facility] Note Date/Time April 18, 2025 6:30a m [facility] Medical Records Department [address] [place] [address] Pre-Anesthesia Evaluation 04/18/25 0622 MR#: [id number] Acct: [id number] Name: BRENDA MACEDO Rep #:[id number] : 1955 69 From: Nigel Lovett MD PCP: ANN MARIE Corona Sta tus:REG SDC Y Race: C Location: [place] [address] ASA Classification* ASA Classification ASA Classification: 3 Assessment & Plan Anesthesia* Anesthesia Assessment Anesthesia Assessment: Discussed sedation and/or anesthesia options, risks, benefits, and alternatives with patient/parents/legal guardian/POA. Questions invited. The patient/parents/legal guardian/POA seems to understand and agrees to proceedwith anesthesia plan. Reviewed the physical assessment, medical history, allergy history and patient home medications list prior to surgery/procedure/anesthetic and documented any changes. Performed airway and anesthesia risk assessments. Anesthesia Type Anesthesia Type: MAC History Source History Obtained from:: Patient and Chart Anesthesia Focused Assessment* Temperature: 98.0 F Pulse Rate: 95 Blood Pressure: 113/75 Respiratory Rate: 20 Pulse Ox: 94 Oxygen Delivery Method: Room Air Airway Assessment Mouth opens: >3 cm Mallampati Score: III Teeth Condition: Dentures (Patient has full upper and lower dentures. They are out.) Neck Range of motion (ROM): Limited ROM (Slight decrease in extension.) Focused Labs Anesthesia Preop lab: CBC WBC 9.0 K/mm3 (4.4-11.0) 04/12/25 13:14 04/12/25 RBC 4.62 M/mm3 (4.2-5.4) 04/12/25 13:14 04/12/25 Hgb 12.6 g/dL (12.0-15.0) 04/12/25 13:14 04/12/25 Hct 40.7 % (37-47) 04/12/25 13:14 04/12/25 Plt Count 302 K/mm3 (150-450) 04/12/25 13:14 04/12/25 CHEMISTRY Potassium 3.9 mmol/L (3.3-5.1) 04/12/25 13:14 04/12/25 Sodium 139 mmol/L (133-145) 04/12/25 13:14 04/12/25 Magnesium 1.7 mg/dL (1.5-2.2) 04/12/25 13:14 04/12/25 Phosphorus 2.5 mg/dL (2.5-4.9) 09/06/24 14:21 09/06/24 BUN 13 mg/dL (4-19) 04/12/25 13:14 04/12/25 Creatinine 0.65 mg/dL (0.70-1.20) L 04/12/25 13:14 Glucose 89 mg/dL (70-99) 04/12/25 13:14 04/12/25 POC Glucose 92 mg/dL (74-106) 05/10/24 11:15 05/10/24 TSH 1.68 uIU/mL (0.358-3.74) 05/04/24 06:10 COAG PT 16.6 SECONDS (11.7-14.9) H 05/22/24 09:20 07/0 06/08 Pre-Assessment Diagnosis/Proposed Procedure Planned Operative Procedure(s): EGD Anesthesia History 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 When Was Last Pacemaker Check QUESTION #4 FULL TEXT: You/Your Family Experience fever (hyperthermia) with Anesthesia Last Oral Intake Last Oral intake: Last Oral Intake NPO since 23:00 04/18/25 05:44 Meds taken in AM with sips of Yes 04/18/25 05:44 water? Meds patient instructed to take am of surgery PONV PONV - electrical and radio aircraft mechanic: PONV - electrical and radio aircraft mechanic Female Yes 04/12/25 14:27 HX of Motion Sickness No 04/12/25 14:27 HX of N/V After Surgery No 04/12/25 14:27 Non-Smoker No 04/12/25 14:27 Duration of Surgery greater No 04/12/25 14:27 than 60 minutes Number of Risk Factors 1 04/12/25 14:27 PONV Score Low Risk 04/12/25 14:27 Height & Weight Height & Weight: Anesthesia: Height & Weight Height 5 ft 2 in 04/18/25 05:44 Weight: 83 kg 04/18/25 05:44 Body Mass Index (BMI) 33.5 04/18/25 05:44 Respiratory Assessment Respiratory Assessment - electrical and radio aircraft mechanic: Respiratory Tract Infection Hx - electrical and radio aircraft mechanic Hx Respiratory Tract Infection No 04/12/25 14:27 Any additional information?: Yes Hx Respiratory Tract Infection: No History of Anesthesia Respiratory Infection details: History chronic cough secondary to COPD. STOP Sleep Apnea STOP Sleep Apnea - electrical and radio aircraft mechanic: STOP Sleep Apnea - electrical and radio aircraft mechanic Hx Hypertension Yes: per pt, controlled with 04/12/25 14:27 med Hx Sleep Apnea No 04/12/25 14:27 CPAP No 04/12/25 14:27 BIPAP No 04/12/25 14:27 Do you snore loudly (louder No 04/12/25 14:27 than talking or can be heard Do you often feel tired/ No 04/12/25 14:27 fatigued/ sleepy during daytime? Has anyone observed you stop No 04/12/25 14:27 breathing during sleep? STOP Results Negative 04/12/25 14:27 QUESTION #5 FULL TEXT : Do you snore loudly (louder than talking or can be heard through closed doors)? Tobacco Use History Tobacco Use History - electrical and radio aircraft mechanic: Tobacco Use History - electrical and radio aircraft mechanic Tobacco Use Smoking Status Current some day smoker 04/12/25 14:27 Hx Tobacco Use Yes 04/12/25 14:27 Years Smoking Packs Smoked per Day Smoking Cessation Date was within the last 15 years Hx Smoking Cessation Date 11/16/21 01/08/24 18:47 Hx Smoking Cessation Counseling Any additional information?: Yes Smoking Status: Current every day smoker (Patient smoked today.) Hematologic Medial History Hematologic Hx - electrical and radio aircraft mechanic: Hematologic Medical Hx - bean snapper Hx of Blood Transfusion Yes 04/12/25 14:27 Hx of Transfusion in last 3 No 04/12/25 14:27 Months Date of Last Transfusion (if within last 3 months) Ever experience any problems No 04/12/25 14:27 with transfusion(s)? Specify any problems Hx of Preganancy in last 3 N/A 04/12/25 14:27 Months Nurse Filling Out Transfusion NBUCHER 04/12/25 14:27 & Questions: Date: 04/12/25 04/12/25 14:27 Time: 04/12/25 14:27 Patient unable to answer at this time (ie. confused, unrespo /Reproduction History /Reproductive History - electrical and radio aircraft mechanic: /Reproductive Hx- electrical and radio aircraft mechanic Hx Now No 04/12/25 14:27 Gestational Age (in weeks): EDC: Hx Hx Para Hx Section SAB No 04/12/25 14:27 Active Medications Active Medications: Current Medications Generic Name Dose Route Start Last Admin Trade Name Freq PRN Reason Stop Dose Admin Lactated Ringer's 1,000 mls @ 15 mls/hr 04/18/25 05:30 04/18/25 06:00 IV 15 mls/hr .Q48H ERNST Administration PFSH Medical History Excessive bleeding Gastric reflux On home oxygen therapy Chronic cough Wears dentures Post-menopausal Cancer Low iron History of ulceration Smoker COPD (chronic obstructive pulmonary disease) History of echocardiogram Encounter for screening for malignant neoplasm of lung Amputated toe of left foot Vitamin D deficiency Hyperlipidemia Hypertension COPD with asthma Hypomagnesemia Hypocalcemia Hypokalemia Anticoagulant long-term use AVM (arteriovenous malformation) Colitis Transfusion of blood during current hospitalisation Antiplatelet or antithrombotic long-term use Iron (Fe) deficiency anemia 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, left leg Carotid stenosis, bilateral Tobacco abuse Peripheral arterial occlusive disease Cervical cancer PVD (peripheral vascular disease) Arthritis Home Medications ?Medication ?Instructions ?Recorded ?Last Taken ?Type albuterol sulfate 90 mcg/actuation 2 puff inhalation Q 6H PRN 01/08/24 01/03/25 History aerosol inhaler shortness of breath or wheez ing amlodipine 5 mg tablet 5 mg PO 1600 blood pressure 01/08/24 01/03/25 History rosuvastatin 10 mg tablet 10 mg PO DAILY cholesterol 0 01/08/24 01/03/25 History cholecalciferol (vitamin D3) 1,250 1,250 mcg PO QMONTH vitamin 05/03/24 01/03/25 History mcg (50,000 unit) capsule oxymetazoline 0.05 % nasal spray 2 spray intranasal BI D PRN nasal 05/18/24 01/03/25 History (12 Hour Nasal Relief [place]) congestion clopidogrel 75 mg tablet (Plavix) 75 mg PO DAILY #90 t abs 02/15/25 04/15/25 Rx pantoprazole 40 mg tablet,delayed 40 mg PO BID #90 tab s 02/15/25 Unknown Rx release fluticasone fur. 100 mcg-umeclid 1 inh inhalation Q24H #60 ea 04/04/25 Unknown Rx 62.5 mcg-vilant 25 mcg inhalat.powder (Trelegy Ellipta) Allergy/AdvReac Type Severity Reaction Status Date / Time No Known Allergies Allergy Verified 04/18/25 05:48 Family History Mother Breast cancer Surgical History History of amputation of toe History of colonoscopy History of esophagogastroduodenoscopy (EGD) S/P femoral-femoral bypass surgery S/P LEFT ARTERIOGRAM Social History household members: none Smoking Status: Current some day smoker tobacco type: cigarettes alcohol intake: former substance use type: does not use caffeine: Yes (coffee) Type: coffee Review of Systems (Anesthesia) ROS Narrative System reviewed and no additional complaints, except as documented. Physical Exam Resp clear to auscultation bilaterally 04/18/25 0630 <Electronically signed by Nigel sanchez MD> Date _ Nigel Lovett MD Cosigner Signature: Date CC: ~ Signed [facility] Work Phone: Consult note Author AA Chris Curtis [facility] Note Date/Time April 18, 2025 7:36a [facility] Medical Records Department [address] [place] [address] Anesthesia Postop Eval I 04/18/25 0735 MR#: [id number] Acct: [id number] Name: BRENDA MACEDO Rep #:[id number] : 1955 69 From: Chris Curtis PCP: CURTIS CoronaC Sta tus:REG SDC Y Race: C Location: [place] [address] Anesthesia: Postop Eval I Current Vital Signs Temperature: 97.2 F Pulse Rate: 97 Blood Pressure: 109/59 Respiratory Rate: 16 Pulse Ox: 93 Oxygen Delivery Method: Nasal Cannula Oxygen Flow Rate (L/min): 3 Assessment Airway patent: Yes Spontaneous unlabored respirations: Yes Mental status: Awake and Calm nausea: No Vomiting: No Anesthesia Complication: Yes Anesthesia Complication Comment:: O2 desat d/t persistent cough Fluid Hydration Crystalloid volume administer (ml): 400 Total IV fluid infused: 400 Progress Note Anesthesia document: Postop Eval 1 completed: Yes 04/18/25 0736 <Electronically signed by Chris Curtis > Date _ Chris Woodignaline Signature: Date CC: ~ Signed [facility] Work Phone: Consult note Author Nigel [facility] Note Date/Time April 18, 2025 7:57a m [facility] Medical Records Department [address] [place] [address] Anesthesia Postop Eval II 04/18/25 0755 MR#: [id number] Acct: [id number] Name: BRENDA MACEDO Rep #:[id number] : 1955 69 From: Nigel Lovett MD PCP: ANN MARIE Corona Sta tus:REG SDC Y Race: C Location: [place] [address] Anesthesia Postop Eval I Sum Postop Eval Completion status Anesthesia document: Postop Eval 1 completed: Yes Anesthesia Postop Eval I Summary Anesthesia Postop Eval I Summary: Anesthesia Postop Eval I: Assessment Summary Airway patent Yes 04/18/25 07:36 [email or web address] Spontaneous unlabored Yes 04/18/25 07:36 [email or web address] respirations Mental status Awake,Calm 04/18/25 07:36 [email or web address] nausea No 04/18/25 07:36 [email or web address] Vomiting No 04/18/25 07:36 [email or web address] Anesthesia Postop Eval I: Fluid Summary Crystalloid volume administer 400 04/18/25 07:36 [email or web address] (ml) Colloids volume administered ( ml) Blood Product volume administered (ml) Total IV fluid infused 400 04/18/25 07:36 [email or web address] Anesthesia Postop Eval I: Summary Notes Anesthesia Complication Yes 04/18/25 07:36 [email or web address] Anesthesia Complication O2 desat d/t 04/18/25 07:36 [email or web address] Comment: persistent cough Post-operative progress note Anesthesia: Postop Eval II Evaluation Mental status: Awake Pain Level: 0 nausea: No Vomiting: No Progress Note Post-operative progress note: Patient having some wheezing and the PACU-gave hernebulizer breathing treatment. Complications Anesthesia Complication: No 04/18/25 0757 <Electronically signed by Nigel sanchez MD> Date _ Nigel Lovett MD Cosigner Signature: Date CC: ~ Signed [facility] Work Phone: Evaluation + Plan note Future Appointments Appointment Date:11/19/2023 01:20:00 PM Scheduled Provider:CARLINE ASHLEY APRN, CNP Location:[facility] Appointment Type: OV Follow Up Future Scheduled Tests Laboratory* Renin, Plasma 10/10/23 [facility] Evaluation noteNo assessment information available [facility] Work Phone: Evaluation note* Diagnosis Onset Date Resolution Status Gangrene acute Peripheral arterial occlusive disease acute [facility] Work Phone: Evaluation note* Diagnosis Onset Date Resolution Status MELLY (acute kidney injury) ac [place] Atherosclerosis of [place] ar teries of extremities with gangrene, left leg acute Gangrene acute Osteomyelitis acute Peripheral arterial occlusive disease acute [facility] Work Phone: Evaluation note* Diagnosis Onset Date Resolution Status MELLY (acute kidney injury) ac [place] Gangrene resolved Osteomyelitis resolved Gangrene resolved Osteomyelitis resolved [facility] Work Phone: Evaluation note* Diagnosis Onset Date Resolution Status MELLY (acute kidney injury) ac [place] Atherosclerosis of [place] ar teries of extremities with gangrene, left leg acute Peripheral arterial occlusive disease acute Gangrene resolved Osteomyelitis resolved Atherosclerosis of [place] ar teries of extremities with gangrene, left leg acute Peripheral arterial occlusive disease acute Gangrene resolved Osteomyelitis resolved Peripheral arterial occlusive disease acute [facility] Work Phone: Evaluation note* Diagnosis Onset Date Resolution Status MELLY (acute kidney injury) ac [place] Atherosclerosis of [place] ar teries of extremities with gangrene, left leg acute Peripheral arterial occlusive disease acute Gangrene resolved Osteomyelitis resolved Atherosclerosis of [place] ar teries of extremities with gangrene, left leg acute Peripheral arterial occlusive disease acute Gangrene resolved Osteomyelitis resolved Peripheral arterial occlusive disease acute Atherosclerosis of [place] ar teries of extremities with gangrene, left leg acute Peripheral arterial occlusive disease acute [facility] Work Phone: evaluation note* Diagnosis Onset Date Resolution Status MELLY (acute kidney injury) ac [place] Atherosclerosis of [place] ar teries of extremities with gangrene, left leg acute Peripheral arterial occlusive disease acute Gangrene resolved Osteomyelitis resolved Atherosclerosis of [place] ar teries of extremities with gangrene, left leg acute Peripheral arterial occlusive disease acute Gangrene resolved Osteomyelitis resolved Peripheral arterial occlusive disease acute Atherosclerosis of [place] ar teries of extremities with gangrene, left leg acute Peripheral arterial occlusive disease acute Peripheral arterial occlusive disease acute [facility] Work Phone: History and physical note Author Liz Murillo [facility] January 08, 2024 5:30pm Note Date/Time January 08, 2024 5:29pm [facility] Medical Records Department [address] [place] [address] H&P Exam - Hospitalist 01/08/24 1720 MR#: [id number] Acct: [id number] Name: BRENDA MACEDO Rep #:[id number] : 1955 68 From: Liz Murillo MD PCP: ANN MARIE Corona tus:ADM IN Location: MS3 [id number] HPI - General General Date of Admission: 01/08/24 Date of Service: 01/08/24 Chief Complaint: Fourth left toe pain and blackness HPI Narrative BRENDA MACEDO, is a 68-year-old female history of tobacco use, PVD, hypertension, COPD who presented to [facility] ED 01/08/2024 at the urging of her material processor for admission and surgery. She has had a left fourth toe wound for 2 months and was [facility], shewas seen in podiatry recommended admission and surgery involving amputation of left fourth toe. Patient denies any injury or drainage from site. Does have history of peripheral arterial disease with stents and has seen Dr. Song from [place], had CT scan on 12/21 which showed the left common and external iliacs with stents were not patent and she is to have surgery with Dr. Song for this potentially next week. Pain has been an 8 out of 10 and has been difficult to manage on an outpatient basis. [facility] contacted in ED they recommended hospitalist admit with antibiotics and that podiatry will see in consult for surgery. Patient evaluated at bedside. She reports history as above and deniesany other present wounds, no fevers or chills. Had her stents in 2018 and both legs with Dr. Michelle but has since followed with Dr. Song in [place]. Has some swelling in lower extremities from not walking around because of her foot, rightgreater than left but she reports that it is not new. No other focal or acute complaints ON LICENSE OF [facility] Medical History Arthritis Carotid stenosis, [...] 73.6 H, Lymph % (Auto) 17.2 L, Mckean % (Auto) 7.0, Eos % (Auto) 1.0, [...] 16:19 EST Reading Location ID and State: [facility] / [place] Tel , Service support , Chest X-Ray 01/08/24 15:50 IMPRESSION: COPD. No acute disease. Electronically Signed: Latrell Mac MD at 16:27 EST Reading Location ID and State: [employer] / [place] Tel , Service support , Assessment & [...] of stenting -Follows with Dr. Song at [place] and supposed to have intervention sometime in [...] documentation, 58Minutes Charges/Coding Visit Charges Inpatient E&M: 28803 Init Hosp L2 01/08/24 1730 <Electronically signed by Liz Murillo MD> Cosigner Signature (if applicable): CC: ANN MARIE Ashley; Dr. Liz Murillo MD~ Signed [facility] Work Phone: History and physical note Author Adi Kincaid [facility] Note Date/Time April 18, 2025 7:09a m [facility] Medical Records Department [address] [place] [address] History & Physical Exam 04/18/25 0708 MR#: [id number] Acct: [id number] Name: BRENDA MACEDO Rep #:[id number] : 1955 69 From: Adi Kincaid DO PCP: ANN MARIE Corona tus:REG [facility] Location: [place] [address] HPI - General General Date of Admission: 04/18/25 Date of Service: 04/18/25 Chief Complaint: Anemia and gastric ulcer HPI Narrative BRENDA MACEDO, is a 69 F who presents for evaluation of GI bleed PMHx og GI bleeding from AVMs and gastric ulcers. EGD 05.22.24; - Grade I esophageal varices. - Oozing gastric ulcers with a visible vessel. Injected. Treated with a heater probe. - Normal second portion of the duodenum. - No specimens collected. Colonoscopy 05.06.24;- Preparation of the colon was fair. - Three bleeding colonic angiodysplastic lesions. Treated with a heater probe. - Diverticulosis in the recto-sigmoid colon and in the sigmoid colon. - Stool in the sigmoid colon, in the transverse colon and in the ascending colon. - Patchy moderate inflammation was found in the sigmoid colon, in the ascending colon and in the cecum secondary to colitis. Biopsied. - Stricture in the terminal ileum. Biopsied. EGD 09.13.24 LA Grade A reflux esophagitis with no bleeding. - Medium-sized hiatal hernia. - Red blood in the gastric body. - Non-bleeding gastric ulcers with no stigmata of bleeding. - Three bleeding angiodysplastic lesions in the stomach. - Normal first portion of the duodenum. Biopsied. Last OV 10.20.24; Pt doing well with no GI concerns. Scheduled for repeat EGD. Continue PPI EGD 01.04.25; - Normal esophagus. - Medium-sized hiatal hernia. - Oozing gastric ulcer with pigmented material. Treated with hot biopsy forceps. - No gross lesions in the duodenal bulb and in the first portion of the duodenum. - No specimens collected. ON LICENSE OF [facility] Medical History Excessive bleeding Gastric reflux On home oxygen therapy Chronic cough Wears dentures Post-menopausal Cancer Low iron History of ulceration Smoker COPD (chronic obstructive pulmonary disease) History of echocardiogram Encounter for screening for malignant neoplasm of lung Amputated toe of left foot Vitamin D deficiency Hyperlipidemia Hypertension COPD with asthma Hypomagnesemia Hypocalcemia Hypokalemia Anticoagulant long-term use AVM (arteriovenous malformation) Colitis Transfusion of blood during current hospitalisation Antiplatelet or antithrombotic long-term use Iron (Fe) deficiency anemia 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, left leg Carotid stenosis, bilateral Tobacco abuse Peripheral arterial occlusive disease Cervical cancer PVD (peripheral vascular disease) Arthritis Home Medications ?Medication ?Instructions ?Recorded ?Last Taken ?Type albuterol sulfate 90 mcg/actuation 2 puff inhalation Q 6H PRN 01/08/24 01/03/25 History aerosol inhaler shortness of breath or wheez ing amlodipine 5 mg tablet 5 mg PO 1600 blood pressure 01/08/24 01/03/25 History rosuvastatin 10 mg tablet 10 mg PO DAILY cholesterol 0 01/08/24 01/03/25 History cholecalciferol (vitamin D3) 1,250 1,250 mcg PO QMONTH vitamin 05/03/24 01/03/25 History mcg (50,000 unit) capsule oxymetazoline 0.05 % nasal spray 2 spray intranasal BI D PRN nasal 05/18/2401/03 History (12 Hour Nasal Relief [place]) congestion clopidogrel 75 mg tablet (Plavix) 75 mg PO DAILY #90 t abs 02/15/25 04/15/25 Rx pantoprazole 40 mg tablet,delayed 40 mg PO BID #90 tab s 02/15/25 Unknown Rx release fluticasone fur. 100 mcg-umeclid 1 inh inhalation Q24H #60 ea 04/04/25 Unknown Rx 62.5 mcg-vilant 25 mcg inhalat.powder (Trelegy Ellipta) Allergy/AdvReac Type Severity Reaction Status Date / Time No Known Allergies Allergy Verified 04/18/25 05:48 Family History Mother Breast cancer Surgical History History of amputation of toe History of colonoscopy History of esophagogastroduodenoscopy (EGD) S/P femoral-femoral bypass surgery S/P LEFT ARTERIOGRAM Social History household members: none Smoking Status: Current every day smoker (Patient smoked today.) tobacco type: cigarettes alcohol intake: former substance use type: does not use caffeine: Yes (coffee) Type: coffee ROS Constitutional Constitutional: Denies fatigue, fever(s), poor appetite, weight gain or weight loss Gastrointestinal Gastrointestinal: Denies belching, bloating, change in bowel habits, change in stool character, chewing difficulty, coffee ground emesis, constipation, cramping, diarrhea, dyspepsia, dysphagia, early satiety, excessive flatus, fecalincontinence, heartburn, hematemesis, hematochezia, hemorrhoids, loose stools, melena, nausea, odynophagia, rectal bleeding, tenesmus, vomiting or weight changes Vital Signs Vital Signs Vital Signs: 04/18/25 05:44 04/18/25 05:44 04/18/25 06:30 Temperature 98.0 F 98.0 F Temperature Source Temporal Pulse Rate 95 95 Respiratory Rate 20 H 20 H Respiratory Pattern Normal Blood Pressure 113/75 113/75 Blood Pressure Mean 87 Blood Pressure Source Monitor Blood Pressure Position Semi-Fowlers Blood Pressure Location Left Arm Pulse Ox 94 94 Oxygen Delivery Method Room Air Room Air Weight Weight: 182 lb 15.739 oz Body Mass Index (BMI) 33.5 Physical Exam Const alert, oriented x3, no apparent distress and healthy appearing General Appearance: cooperative GI normal to inspection, nondistended, normoactive bowel sounds, soft to palpation,non-tender and non-distended Percussion: normal to percussion Rectal Exam: deferred Assessment & Plan Assessment/Plan (1) Esophageal varices: (2) Anemia: (3) Gastric ulcer: PLAN: Assessment and Plan Assessment and Plan (1) Esophageal varices: Status: Acute Plan: This is a 69 yo female pt with PMHx of GI bleeding and anemia. Pt underwent repeat EGD in Dec 2024 which showed gastric ulcers. Pt has been doing well with no complaints. She denies blood in her stool, lightheadedness, or dizziness. Shecontinues to smoke a few per week. I counseled on smoking cessation to help heal her gastric ulcers. She will undergo repeat EGD to ensure healing. I have increased her PPI to 40 mg BID. I ordered CBC to monitor her hemoglobin. SHe hasgastric varix on prior EGD. I will order liver elastography to rule out fibrosis. She denies hx of alcohol use. -EGD -Increase PPI -liver elastography -CBC (2) Gastric ulcer: Status: Acute (3) Anemia: Status: Acute Orders: Orders ABD Limited w/ Elastography Today I85.00 - Esophageal varices without bleeding CBC W/Diff, Automated Today D64.9 - Anemia, unspecified Medications: New pantoprazole 40 mg PO BID 90 tabs 3RF 04/18/25 0709 <Electronically signed by Adi Friend DO> Cosigner Signature (if applicable): CC: CATH LABORATORY TECHNICIAN-Jason Ashley; Adi Friend, DO~ Signed [facility] Work Phone: Hospital course Narrative No data available for this section [facility] Hospital Discharge instructions No data available for this section [facility] Progress note No data available for this section [facility] Reason for referral (narrative)No reason for referral information availableW[facility] Work Phone: Summary Purpose Family History No Family History Records Found Relationship Condition Age at Onset Recorded Date/T carlos eduardo mother Malignant neoplasm of breast Unknown Advance Directives No Advanced Directives Records Found Advance Directive Response Recorded Date/ Time Advance Directives No September 1:37pm Living Will No October 05 018 1:37pm Power of Intranet Developer No October 05, 2018 1:37pm Advance Directive Response Recorded Date/ Time Advance Directives No September 1:37pm Living Will No January 08 2 024 2:57pm Power of Intranet Developer No January 08, 2024 2:57pm Advance Directive Response Recorded Date/ Time Advance Directives No September 1:37pm Living Will No January 08, 2 024 6:47pm Power of Intranet Developer No January 08, 2024 6:47pm Advance Directive Response Recorded Date/ Time Advance Directives No September 2:37pm Living Will No January 08 2 024 7:47pm Power of Intranet Developer No January 08, 2024 7:47pm Advance Directive Response Recorded Date/ Time Living Will No July 21 024 1:15pm Do you have a Healthcare Power of Intranet Developer? No July 21, 2024 1:15pm Living Will No January 02 025 12:49pm Do you have a Healthcare Power of Intranet Developer? No January 02, 2025 12:49pm Advance Directives No July 1:15pm Advance Directive Response Recorded Date/ Time Living Will No July 21 2 024 1:15pm Do you have a Healthcare Power of Intranet Developer? No July 21, 2024 1:15pm Living Will No May 29, 2024 12:54am Do you have a Healthcare Power of Intranet Developer? No May 29, 2024 12:54am Living Will No January 02 12:49pm Do you have a Healthcare Power of Intranet Developer? No January 02, 2025 12:49pm Advance Directives No July 1:15pm Advance Directive Response Recorded Date/ Time Living Will No July 21 024 1:15pm Do you have a Healthcare Power of Intranet Developer? No July 21, 2024 1:15pm Do you have a Healthcare Power of Intranet Developer? No April 12, 2025 2:27pm Living Will No May 29, 2024 12:54am Do you have a Healthcare Power of Intranet Developer? No May 29, 2024 12:54am Living Will No January 02 12:49pm Do you have a Healthcare Power of Intranet Developer? No January 02, 2025 12:49pm Advance Directives No July 1:15pm Advance Directive Response Recorded Date/ Time Living Will No July 21 024 1:15pm Do you have a Healthcare Power of Intranet Developer? No July 21, 2024 1:15pm Do you have a Healthcare Power of Intranet Developer? No April 12, 2025 2:27pm Living Will No May 29, 2024 12:54am Do you have a Healthcare Power of Intranet Developer? No May 29, 2024 12:54am Advance Directives No July 1:15pm Chief Complaint [...] MELLY (acute kidney in ) 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, left leg [...] for Visit MELLY (acute kidney in ) Gangrene Osteomyelitis Gangrene Osteomyelitis Chief Complaint Gangrene, [...] MELLY (acute kidney in ) 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, left leg Peripheral arterial occlusive disease Gangrene Osteomyelitis 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, left leg [...] MELLY (acute kidney in ) 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, left leg Peripheral arterial occlusive disease Gangrene Osteomyelitis 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, left leg Peripheral arterial occlusive disease Gangrene Osteomyelitis 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, left leg [...] MELLY (acute kidney in ) 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, left leg Peripheral arterial occlusive disease Gangrene Osteomyelitis 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, left leg Peripheral arterial occlusive disease Gangrene Osteomyelitis 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, left leg [...] MELLY (acute kidney in [place]) 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, left leg Peripheral arterial occlusive disease Gangrene Osteomyelitis 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, left leg Peripheral arterial occlusive disease Gangrene Osteomyelitis 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, left leg [...] 35pm J44.9 - Chronic obstructive pulmonary di seaschris, uns February 14, 2025 12:27pm test results February 15, 2025 8:17 am E-ORDER February 15, 2025 9:03 am J44.9 - Chronic obstructive pulmonary di rose uns February 16, 2025 12:14pm Encounter for [...] 35pm J44.9 - Chronic obstructive pulmonary di rose, uns February 14, 2025 12:27pm test results February 15, 2025 8:17 am E-ORDER February 15, 2025 9:03 am J44.9 - Chronic obstructive pulmonary di rose, uns February 16, 2025 12:14pm Encounter for surgical aftercare followi ng surgery February 20, 2025 10:48am 6MO LABS February 21, 2025 12:5 7pm MED ONC February 21, 2025 1:15 pm J44.9 - Chronic obstructive pulmonary di rose, uns February 22, 2025 12:40pm Chief Complaint [...] 35pm J44.9 - Chronic obstructive pulmonary di tatianae, uns February 14, 2025 12:27pm test results February 15, 2025 8:17 am E-ORDER February 15, 2025 9:03 am J44.9 - Chronic obstructive pulmonary di sease, uns February 16, 2025 12:14pm Encounter for surgical aftercare followi ng surgery February 20, 2025 10:48am 6MO LABS February 21, 2025 12:5 7pm MED ONC February 21, 2025 1:15 pm J44.9 - Chronic obstructive pulmonary di tatianae, uns February 22, 2025 12:40pm ESOPHAGEAL VARICES [...] 8:17 am Iron (Fe) deficiency anemia February 21, 2 025 12:57pm Hypoxemia March 10, 2025 10: 05am COPD (chronic obstructive pulmonary dise ase) March 10, 2025 10:05am Nicotine dependence, cigarettes, uncompl icated March 10, 2025 10:05am Reason for Visit Admit Date Anemia January 04, 2025 7:03am Gastric ulcer January 04, 2025 7:03am COPD (chronic obstructive pulmonary dise ase) January 11, 2025 10:31am Nicotine dependence, cigarettes, uncompl icated January 11, 2025 10:31am Anemia February 15, 2025 8:17 am Esophageal varices February 15, 2025 8:17 am Gastric ulcer February 15, 2025 8:17 am Iron (Fe) deficiency anemia February 21 025 12:57pm Hypoxemia March 10, 2025 10: 05am COPD (chronic obstructive pulmonary dise ase) March 10, 2025 10:05am Nicotine dependence, cigarettes, uncompl icated March 10, 2025 10:05am Anemia April 18, 2025 5:21a m Esophageal varices April 18, 2025 5:21a m Gastric ulcer April 18, 2025 5:21a m Chief Complaint Admit Date COPD/O2 Usage January 11, 2025 10:31am SCREENING January 26, 2025 12: 35pm J44.9 - Chronic obstructive pulmonary di rose uns February 14, 2025 12:27pm test results February 15, 2025 8:17 am E-ORDER February 15, 2025 9:03 am J44.9 - Chronic obstructive pulmonary di rose uns February 16, 2025 12:14pm Encounter for surgical aftercare followi ng surgery February 20, 2025 10:48am 6MO LABS February 21, 2025 12:5 7pm MED ONC February 21, 2025 1:15 pm J44.9 - Chronic obstructive pulmonary di rose uns February 22, 2025 12:40pm ESOPHAGEAL VARICES February 24, 2025 9:0 5am 8 WK FU March 10, 2025 10: 05am Test Result May 10, 2025 9:48 am Reason for Visit Admit Date COPD (chronic obstructive pulmonary dise ase) January 11, 2025 10:31am Nicotine dependence, cigarettes, uncompl icated January 11, 2025 10:31am Anemia February 15, 2025 8:17 am Esophageal varices February 15, 2025 8:17 am Gastric ulcer February 15, 2025 8:17 am Iron (Fe) deficiency anemia February 21, 025 12:57pm Hypoxemia March 10, 2025 10: 05am COPD (chronic obstructive pulmonary dise ase) March 10, 2025 10:05am Nicotine dependence, cigarettes, uncompl icated March 10, 2025 10:05am Anemia April 18, 2025 5:21a m Esophageal varices April 18, 2025 5:21a m Gastric ulcer April 18, 2025 5:21a m Liver fibrosis May 10, 2025 9:48 am Chief Complaint Admit Date SCREENING January 26, 2025 12: 35pm J44.9 - Chronic obstructive pulmonary di rose uns February 14, 2025 12:27pm test results February 15, 2025 8:17 am E-ORDER February 15, 2025 9:03 am J44.9 - Chronic obstructive pulmonary pasha anderson February 16, 2025 12:14pm Encounter for surgical aftercare followi ng surgery February 20, 2025 10:48am 6MO LABS February 21, 2025 12:5 7pm MED ONC February 21, 2025 1:15 pm J44.9 - Chronic obstructive pulmonary lourdes rose uns February 22, 2025 12:40pm ESOPHAGEAL VARICES February 24, 2025 9:0 5am 8 WK FU March 10, 2025 10: 05am Test Result May 10, 2025 9:48 am INT LAB ORDERS May 10, 2025 10:2 8am Reason for Visit Admit Date Anemia February 15, 2025 8:17 am Esophageal varices February 15, 2025 8:17 am Gastric ulcer February 15, 2025 8:17 am Iron (Fe) deficiency anemia February 21, 2 025 12:57pm Hypoxemia March 10, 2025 10: 05am COPD (chronic obstructive pulmonary dise ase) March 10, 2025 10:05am Nicotine dependence, cigarettes, uncompl icated March 10, 2025 10:05am Anemia April 18, 2025 5:21a m Esophageal varices April 18, 2025 5:21a m Gastric ulcer April 18, 2025 5:21a m Esophageal varices May 10, 2025 9:48 am Gastric ulcer May 10, 2025 9:48 am Liver fibrosis May 10, 2025 9:48 am Chief Complaint Admit Date J44.9 - Chronic obstructive pulmonary di rose uns February 14, 2025 12:27pm test results [...] WK FU March 10, 2025 10: 05am Test Result May 10, 2025 9:48 am INT LAB ORDERS May 10, 2025 10:2 8am 3 M FU June 02, 2025 12:4 3pm Reason for Visit Admit Date Anemia February 15, 2025 8:17 am Esophageal varices February 15, 2025 8:17 am Gastric ulcer February 15, 2025 8:17 am Iron (Fe) deficiency anemia February 21, 025 12:57pm Hypoxemia March 10, 2025 10: 05am COPD (chronic obstructive pulmonary dise ase) March 10, 2025 10:05am Nicotine dependence, cigarettes, uncompl icated March 10, 2025 10:05am Anemia April 18, 2025 5:21a m Esophageal varices April 18, 2025 5:21a m Gastric ulcer April 18, 2025 5:21a m Esophageal varices May 10, 2025 9:48 am Gastric ulcer May 10, 2025 9:48 am Liver fibrosis May 10, 2025 9:48 am Hypoxemia June 02, 2025 12:4 3pm COPD (chronic obstructive pulmonary dise ase) June 02, 2025 12:43pm Nicotine dependence, cigarettes, uncompl icated June 02, 2025 12:43pm Additional Source Comments INFORMATION SOURCE (unrecogn ized section and content) DATE CREATED AUTHOR 05/05/2018 [facility] DATE CREATED AUTHOR AUTHOR'S ORGANIZ ATION 01/03/2024 [facility] ([place]) DATE CREATED AUTHOR AUTHOR'S ORGANIZ ATION 06/05/2025 [facility] Care Teams (unrecognized sec tion and content) Team Status: Active Member Role Status Dates Carline Ashley CATH LABORATORY TECHNICIAN, CATH LABORATORY TECHNICIAN-C Family Provider Activ e Carline Ashley CATH LABORATORY TECHNICIAN, CATH LABORATORY TECHNICIAN-C Primary Care Provider Active Team Status: Inactive Member Role Status Dates Carline Ashley CATH LABORATORY TECHNICIAN, CATH LABORATORY TECHNICIAN-C Primary Care Provider, Attending Provider, Referring Provider Active Team Status: Inactive Member Role Status Dates Carline Ashley CATH LABORATORY TECHNICIAN, CATH LABORATORY TECHNICIAN-C Primary Care Provider Active Dr. Jeff Song MD Attending Provider, Referring Provider Active Team Status: Active Member Role Status Dates Carline Ashley CATH LABORATORY TECHNICIAN, CATH LABORATORY TECHNICIAN-C Primary Care Provider Active Dr. Josiane Tucker MD Emergency Provider Active Dr. Liz Murillo MD Admit Provider, Attending Provid er Active Team Status: Active Member Role Status Dates Carline Ashley CATH LABORATORY TECHNICIAN, CATH LABORATORY TECHNICIAN-C Primary Care Provider Active Dr. Josiane Tucker MD Emergency Provider Active Dr. Liz Murillo MD Admit Provider, Other Provider A ctive Dr. Armani Moses , Attending Provider, Other Provider Active Dr. Momo Camacho DPM Other Provider Active Dr. Selvin Frost MD Other Provider Active Team Status: Active Member Role Status Dates Carline Ashley CATH LABORATORY TECHNICIAN, CATH LABORATORY TECHNICIAN-C Primary Care Provider Active Dr. Josiane Tucker [...] Active Member Role Status Dates Carline Ashley CATH LABORATORY TECHNICIAN, CATH LABORATORY TECHNICIAN-C Primary Care Provider Active Dr. Josiane Tucker MD Emergency Provider Active Dr. Liz Murillo MD Admit Provider, Other Provider A ctive LB RamírezM Referring Provider, Other Prov ider Active Dr. Selvin Frost MD Attending Provider, Other Provide r Active Dr. Selvin Barrera , DO Other Provider Active Dr. Armani Moses , DO Other Provider Active Dr. Kevin Souza MD Other Provider Active Team Status: Active Member Role Status Dates Carline Ashley CATH LABORATORY TECHNICIAN, CATH LABORATORY TECHNICIAN-C Primary Care Provider Active Dr. Josiane Tucker MD Emergency Provider Active Dr. Liz Murillo MD Admit Provider, Other Provider A ctive Dr. Momo Camacho DPM Other Provider Active Dr. Selvin Frost MD Other Provider Active Dr. Selvin Barrera , DO Attending Provider, Other Provid er Active Dr. Armani Moses , DO Other Provider Active Dr. Kevin Souza MD Other Provider Active Dr. Lynn Enriquez MD Other Provider Active Team Status: Active Member Role Status Dates Carline Ashley CATH LABORATORY TECHNICIAN, CATH LABORATORY TECHNICIAN-C Primary Care Provider Active Dr. Josiane Tucker [...] Active Member Role Status Dates Carline Ashley CATH LABORATORY TECHNICIAN, CATH LABORATORY TECHNICIAN-C Primary Care Provider Active Dr. Josiane Tucker [...] Active Member Role Status Dates Carline Ashley CATH LABORATORY TECHNICIAN, CATH LABORATORY TECHNICIAN-C Primary Care Provider Active Dr. Kerline Oquendo MD Attending Provider Activ e Team Status: Active Member Role Status Dates Carline Ashley CATH LABORATORY TECHNICIAN, CATH LABORATORY TECHNICIAN-C Primary Care Provider Active Dr. Josiane Tucker [...] Dr. Selvin Frost MD Other Provider Active Myaa Lu , CATH LABORATORY TECHNICIAN-C Attending Provider Active Team Status: Active Member Role Status Dates Carline Ashley CATH LABORATORY TECHNICIAN, CATH LABORATORY TECHNICIAN-C Primary Care Provider Active Dr. Josiane Tucker [...] Active Member Role Status Dates Carline Ashley CATH LABORATORY TECHNICIAN, CATH LABORATORY TECHNICIAN-C Primary Care Provider Active Dr. Josiane Tucker MD Emergency Provider Active Dr. Liz Murillo MD Admit Provider, Other Provider A ctive Dr. Armani Moses , DO Attending Provider, Other Provider Active Dr. Kevin Souza MD Other Provider Active Dr. Lynn Enriquez MD Other Provider Active Dr. Momo Camacho DPM Other Provider Active Dr. Selvin Frost MD Other Provider Active Dr. Selvin Barrera , Other Provider Active Team Status: Active Member Role Status Dates Carline Ashley CATH LABORATORY TECHNICIAN, CATH LABORATORY TECHNICIAN-C Primary Care Provider Active Dr. Josiane Tucker MD Emergency Provider Active Dr. Liz Murillo MD Admit Provider, Other Provider A ctive Dr. Armani Moses , DO Other Provider Active Dr. Kevin Souza MD Other Provider Active Dr. Lynn Enriquez MD Other Provider Active Dr. Momo Camacho DPM Other Provider Active Dr. Selvin Frost MD Attending Provider, Other Provide r Active Dr. Selvin Barrera , Other Provider Active Team Status: Active Member Role Status Dates Carline Ashley CATH LABORATORY TECHNICIAN, CATH LABORATORY TECHNICIAN-C Primary Care Provider Active Dr. Josiane Tucker MD Emergency Provider Active Dr. Liz Murillo MD Admit Provider, Other Provider A ctive Dr. Armani Moses , DO Other Provider Active Dr. Kevin Souza MD Other Provider Active Dr. Lynn Enriquez MD Other Provider Active Dr. Momo Camacho DPM Other Provider Active Dr. Selvin Frost MD Other Provider Active Dr. Selvin Barrera DO Other Provider Active MAO Brown Attending Provider Active Team Status: Active Member Role Status Dates Carline Ashley CATH LABORATORY TECHNICIAN, CATH LABORATORY TECHNICIAN-C Primary Care Provider Active Dr. Josiane Tucker [...] Inactive Member Role Status Dates Carline Ashley CATH LABORATORY TECHNICIAN, CATH LABORATORY TECHNICIAN-C Primary Care Provider Active Dr. Josiane Tucker [...] Active Member Role Status Dates Carline Ashley CATH LABORATORY TECHNICIAN, CATH LABORATORY TECHNICIAN-C Primary Care Provider Active Dr. Josiane Tucker [...] Active Member Role Status Dates Carline Ashley CATH LABORATORY TECHNICIAN, CATH LABORATORY TECHNICIAN-C Primary Care Provider Active Dr. Josiane Tucker [...] Selvin Barrera , DO Other Provider Active Team Status: Active Member Role Status Dates Carline Ashley CATH LABORATORY TECHNICIAN, CATH LABORATORY TECHNICIAN-C Primary Care Provider Active Dr. Josiane Tucker [...] Dr. Selvin Barrera , Other Provider Active MAO Brown Attending Provider Active Team Status: Active Member Role Status Dates Carline Ashley CATH LABORATORY TECHNICIAN, CATH LABORATORY TECHNICIAN-C Primary Care Provider Active Dr. Josiane Tucker [...] Active Member Role Status Dates Carline Ashley CATH LABORATORY TECHNICIAN, CATH LABORATORY TECHNICIAN-C Primary Care Provider Active Dr. Momo Camacho DPM Attending Provider, Referring Provider Active Team Status: Inactive Member Role Status Dates Carline Ashley CATH LABORATORY TECHNICIAN, CATH LABORATORY TECHNICIAN-C Primary Care Provider, Referring Provider Active MAO Brown Attending Provider Active Team Status: Inactive Member Role Status Dates Carline Ashley CATH LABORATORY TECHNICIAN, CATH LABORATORY TECHNICIAN-C Primary Care Provider Active Dr. Momo Camacho DPM Attending Provider, Referring Provider Active Team Status: Active Member Role Status Dates Carline Ashley CATH LABORATORY TECHNICIAN, CATH LABORATORY TECHNICIAN-C Primary Care Provider Active Dr. Selvin Frost MD Attending Provider Active Team Status: Active Member Role Status Dates Carline Ashley CATH LABORATORY TECHNICIAN, CATH LABORATORY TECHNICIAN-C Primary Care Provider Active MAO Brown Attending Provider, Referring Provid er Active Team Status: Inactive Member Role Status Dates Carline Ashley CATH LABORATORY TECHNICIAN, CATH LABORATORY TECHNICIAN-C Primary Care Provider Active MAO Brown Attending Provider, Referring Provid er Active Team Status: Active Member Role Status Dates Carline Ashley CATH LABORATORY TECHNICIAN, CATH LABORATORY TECHNICIAN-C Primary Care Provider Active Dr. Selvin Frost MD Attending Provider Active MAO Brown Referring Provider Active Team Status: Active Member Role Status Dates Carline Ashley CATH LABORATORY TECHNICIAN, CATH LABORATORY TECHNICIAN-C Primary Care Provider Active Team Status: Inactive Member Role Status Dates Carline Ashley CATH LABORATORY TECHNICIAN, CATH LABORATORY TECHNICIAN-C Primary Care Provider Active Start: October End: October 20, 2024 Carline Ashley CATH LABORATORY TECHNICIAN, CATH LABORATORY TECHNICIAN-C Referring Provider Active Start: October 20, 2024 End: October 20, 2024 MAO Byrd Attending Provider Active Start: October 20, 2024 End: October 20, 2024 Team Status: Inactive Member Role Status Dates Carline Ashley CATH LABORATORY TECHNICIAN, CATH LABORATORY TECHNICIAN-C Primary Care Provider Active Start: October End: October 20, 2024 MAO Byrd Attending Provider Active Start: October 20, 2024 End: October 20, 2024 MAO Byrd Referring Provider Active Start: October 20, 2024 End: October 20, 2024 Team Status: Inactive Member Role Status Dates Carline Ashley CATH LABORATORY TECHNICIAN, CATH LABORATORY TECHNICIAN-C Primary Care Provider Active Start: November [id number] End: November 11, 2024 Carline Ashley CATH LABORATORY TECHNICIAN, CATH LABORATORY TECHNICIAN-C Attending Provider Active Start: October End: November 11, 2024 Carline Ashley CATH LABORATORY TECHNICIAN, CATH LABORATORY TECHNICIAN-C Referring Provider Active Start: October End: November 11, 2024 Team Status: Inactive Member Role Status Dates Carline Ashley CATH LABORATORY TECHNICIAN, CATH LABORATORY TECHNICIAN-C Primary Care Provider Active Start: January 042024 End: January 04, 2025 Carline Ashley CATH LABORATORY TECHNICIAN, CATH LABORATORY TECHNICIAN-C Referring Provider Active Start: December End: January 04, 2025 Dr. Adi Kincaid DO Attending Provider Active Start: January 04, 2025 End: January 04, 2025 Team Status: Active Member Role Status Dates Carline Ashley CATH LABORATORY TECHNICIAN, CATH LABORATORY TECHNICIAN-C Primary Care Provider Active Start: January 042024 Carline Ashley CATH LABORATORY TECHNICIAN, CATH LABORATORY TECHNICIAN-C Referring Provider Active Start: December Dr. Adi Kincaid DO Attending Provider Active Start: January 04, 2025 Dr. Adi Kincaid DO Other Provider Active St art: January 04, 2025 Team Status: Inactive Member Role Status Dates Carline Ashley CATH LABORATORY TECHNICIAN, CATH LABORATORY TECHNICIAN-C Primary Care Provider Active Start: January [id number] End: January 11, 2025 Carline Ashley CATH LABORATORY TECHNICIAN, CATH LABORATORY TECHNICIAN-C Referring Provider Active Start: December End: January 11, 2025 Dr. Danis Bustos , Attending Provider Active S tart: January 11, 2025 End: January 11, 2025 Team Status: Inactive Member Role Status Dates Carline Ashley CATH LABORATORY TECHNICIAN, CATH LABORATORY TECHNICIAN-C Primary Care Provider Active Start: January 26, 2025 End: January 26, 2025 Carline Ashley CATH LABORATORY TECHNICIAN, CATH LABORATORY TECHNICIAN-C Attending Provider Ac tive Start: January 26, 2025 End: January 26, 2025 Carline Ashley CATH LABORATORY TECHNICIAN, CATH LABORATORY TECHNICIAN-C Referring Provider Ac tive Start: January 26, 2025 End: January 26, 2025 Team Status: Inactive Member Role Status Dates Carline Ashley CATH LABORATORY TECHNICIAN, CATH LABORATORY TECHNICIAN-C Primary Care Provider Active Start: February 14, 2025 End: February 14, 2025 Dr. Danis Bustos , Attending Provider Active S tart: February 14, 2025 End: February 14, 2025 Dr. Danis Bustos , Referring Provider Active S tart: February 14, 2025 End: February 14, 2025 Team Status: Inactive Member Role Status Dates Carline Ashley CATH LABORATORY TECHNICIAN, CATH LABORATORY TECHNICIAN-C Primary Care Provider Active Start: February 15, 2025 End: February 15, 2025 Carline Ashley CATH LABORATORY TECHNICIAN, CATH LABORATORY TECHNICIAN-C Referring Provider Ac tive Start: February 15, 2025 End: February 15, 2025 MAO Byrd Attending Provider Active Start: February 15, 2025 End: February 15, 2025 Team Status: Active Member Role Status Dates Carline Ashley CATH LABORATORY TECHNICIAN, CATH LABORATORY TECHNICIAN-C Primary Care Provider Active Start: February 15, 2025 MAO Byrd Attending Provider Active Start: February 15, 2025 MAO Byrd Referring Provider Active Start: February 15, 2025 Team Status: Active Member Role Status Dates Carline Ashley CATH LABORATORY TECHNICIAN, CATH LABORATORY TECHNICIAN-C Primary Care Provider Active Start: February 16, 2025 Dr. Danis Bustos DO Attending Provider Active S tart: February 16, 2025 Dr. Danis Bustos DO Referring Provider Active S tart: February 16, 2025 Team Status: Active Member Role Status Dates Carline Ashley CATH LABORATORY TECHNICIAN, CATH LABORATORY TECHNICIAN-C Primary Care Provider Active Start: February 20, 2025 MAO Brown Attending Provider Active Star t: February 20, 2025 MAO Brown Referring Provider Active Star t: February 20, 2025 Team Status: Inactive Member Role Status Dates Carline Ashley CATH LABORATORY TECHNICIAN, CATH LABORATORY TECHNICIAN-C Primary Care Provider Active Start: February 15, 2025 End: February 15, 2025 MAO Byrd Attending Provider Active Start: February 15, 2025 End: February 15, 2025 MAO Byrd Referring Provider Active Start: February 15, 2025 End: February 15, 2025 Team Status: Active Member Role Status Dates Carline Ashley CATH LABORATORY TECHNICIAN, CATH LABORATORY TECHNICIAN-C Primary Care Provider Active Start: February 20, 2025 Dr. Selvin Frost MD Attending Provider Active S tart: February 20, 2025 Team Status: Inactive Member Role Status Dates Carline Ashley CATH LABORATORY TECHNICIAN, CATH LABORATORY TECHNICIAN-C Primary Care Provider Active Start: February 16, 2025 End: February 16, 2025 Dr. Danis Bustos DO Attending Provider Active S tart: February 16, 2025 End: February 16, 2025 Dr. Danis Bustos DO Referring Provider Active S tart: February 16, 2025 End: February 16, 2025 Team Status: Inactive Member Role Status Dates Carline Ashley CATH LABORATORY TECHNICIAN, CATH LABORATORY TECHNICIAN-C Primary Care Provider Active Start: February 21, 2025 End: February 21, 2025 Carline Ashley CATH LABORATORY TECHNICIAN, CATH LABORATORY TECHNICIAN-C Referring Provider Ac tive Start: February 21, 2025 End: February 21, 2025 Dr. Joseph Torres MD Attending Provider Active S tart: February 21, 2025 End: February 21, 2025 Team Status: Active Member Role Status Dates Carline Ashley CATH LABORATORY TECHNICIAN, CATH LABORATORY TECHNICIAN-C Primary Care Provider Active Start: February 21, 2025 Dr. Jsoeph Torres MD Attending Provider Active S tart: February 21, 2025 Dr. Joseph Torres MD Referring Provider Active S tart: February 21, 2025 Team Status: Inactive Member Role Status Dates Carline Ashley CATH LABORATORY TECHNICIAN, CATH LABORATORY TECHNICIAN-C Primary Care Provider Active Start: February 20, 2025 End: February 20, 2025 MAO Brown Attending Provider Active Star t: February 20, 2025 End: February 20, 2025 MAO Brown Referring Provider Active Star t: February 20, 2025 End: February 20, 2025 Team Status: Active Member Role Status Dates Carline Ashley CATH LABORATORY TECHNICIAN, CATH LABORATORY TECHNICIAN-C Primary Care Provider Active Start: February 22, 2025 Dr. Danis Bustos , DO Attending Provider Active S tart: February 22, 2025 Dr. Danis Bustos , DO Referring Provider Active S tart: February 22, 2025 Dr. Danis Bustos , DO Other Provider Active Start : February 22, 2025 Team Status: Active Member Role Status Dates Carline Ashley CATH LABORATORY TECHNICIAN, CATH LABORATORY TECHNICIAN-C Primary Care Provider Active Start: February 20, 2025 Dr. Selvin Frost MD Attending Provider Active S tart: February 20, 2025 MAO Brown Referring Provider Active Star t: February 20, 2025 Team Status: Inactive Member Role Status Dates Carline Ashley CATH LABORATORY TECHNICIAN, CATH LABORATORY TECHNICIAN-C Primary Care Provider Active Start: February 24, 2025 End: February 24, 2025 MAO Byrd Attending Provider Active Start: February 24, 2025 End: February 24, 2025 MAO Byrd Referring Provider Active Start: February 24, 2025 End: February 24, 2025 Team Status: Inactive Member Role Status Dates Carline Ashley CATH LABORATORY TECHNICIAN, CATH LABORATORY TECHNICIAN-C Primary Care Provider Active Start: March 10, 2025 End: March 10, 2025 Carline Ashley CATH LABORATORY TECHNICIAN, CATH LABORATORY TECHNICIAN-C Referring Provider Ac tive Start: March 10, 2025 End: March 10, 2025 Rupali Deng NP-C Attending Provider Active Start: March 10, 2025 End: March 10, 2025 Team Status: Inactive Member Role Status Dates Carline Ashley CATH LABORATORY TECHNICIAN, CATH LABORATORY TECHNICIAN-C Primary Care Provider Active Start: April 12, 2025 End: April 12, 2025 Carline Ashley CATH LABORATORY TECHNICIAN, CATH LABORATORY TECHNICIAN-C Attending Provider Ac tive Start: April 12, 2025 End: April 12, 2025 Carline Ashley CATH LABORATORY TECHNICIAN, CATH LABORATORY TECHNICIAN-C Referring Provider Ac tive Start: April 12, 2025 End: April 12, 2025 Team Status: Inactive Member Role Status Dates Carline Ashley CATH LABORATORY TECHNICIAN, CATH LABORATORY TECHNICIAN-C Primary Care Provider Active Start: April 18, 2025 End: April 18, 2025 Carline Ashley CATH LABORATORY TECHNICIAN, CATH LABORATORY TECHNICIAN-C Referring Provider Ac tive Start: April 18, 2025 End: April 18, 2025 Dr. Adi Kincaid DO Attending Provider Active Start: April 18, 2025 End: April 18, 2025 Team Status: Active Member Role Status Dates Carline Ashley CATH LABORATORY TECHNICIAN, CATH LABORATORY TECHNICIAN-C Primary Care Provider Active Start: April 18, 2025 Carline Ashley CATH LABORATORY TECHNICIAN, CATH LABORATORY TECHNICIAN-C Referring Provider Ac tive Start: April 18, 2025 Dr. Adi Kincaid DO Attending Provider Active Start: April 18, 2025 Dr. Adi Kincaid DO Other Provider Active St art: April 18, 2025 Team Status: Inactive Member Role Status Dates Carline Ashley CATH LABORATORY TECHNICIAN, CATH LABORATORY TECHNICIAN-C Primary Care Provider Active Start: May 10, 2025 End: May 10, 2025 Carline Ashley CATH LABORATORY TECHNICIAN, CATH LABORATORY TECHNICIAN-C Referring Provider Ac tive Start: May 10, 2025 End: May 10, 2025 MAO Byrd Attending Provider Active Start: May 10, 2025 End: May 10, 2025 Team Status: Active Member Role/Relationship Status Dates Carline Ashley CATH LABORATORY TECHNICIAN, CATH LABORATORY TECHNICIAN-C Primary Care Provider Active Team Status: Inactive Member Role/Relationship Status Dates Carline Ashley CATH LABORATORY TECHNICIAN, CATH LABORATORY TECHNICIAN-C Primary Care Provider Active Start: January 26, 2025 End: January 26, 2025 Carline Ashley CATH LABORATORY TECHNICIAN, CATH LABORATORY TECHNICIAN-C Attending Provider Ac tive Start: January 26, 2025 End: January 26, 2025 Carline Ashley CATH LABORATORY TECHNICIAN, CATH LABORATORY TECHNICIAN-C Referring Provider Ac tive Start: January 26, 2025 End: January 26, 2025 Team Status: Inactive Member Role/Relationship Status Dates Carline Ashley CATH LABORATORY TECHNICIAN, CATH LABORATORY TECHNICIAN-C Primary Care Provider Active Start: February 14, 2025 End: February 14, 2025 Dr. Danis Bustos DO Attending Provider Active S tart: February 14, 2025 End: February 14, 2025 Dr. Danis Bustos DO Referring Provider Active S tart: February 14, 2025 End: February 14, 2025 Team Status: Inactive Member Role/Relationship Status Dates Carline Ashley CATH LABORATORY TECHNICIAN, CATH LABORATORY TECHNICIAN-C Primary Care Provider Active Start: February 15, 2025 End: February 15, 2025 Carline Ashley CATH LABORATORY TECHNICIAN, CATH LABORATORY TECHNICIAN-C Referring Provider Ac tive Start: February 15, 2025 End: February 15, 2025 MAO Byrd Attending Provider Active Start: February 15, 2025 End: February 15, 2025 Team Status: Inactive Member Role/Relationship Status Dates Carline Ashley CATH LABORATORY TECHNICIAN, CATH LABORATORY TECHNICIAN-C Primary Care Provider Active Start: February 15, 2025 End: February 15, 2025 MAO Byrd Attending Provider Active Start: February 15, 2025 End: February 15, 2025 MAO Byrd Referring Provider Active Start: February 15, 2025 End: February 15, 2025 Team Status: Inactive Member Role/Relationship Status Dates Carline Ashley CATH LABORATORY TECHNICIAN, CATH LABORATORY TECHNICIAN-C Primary Care Provider Active Start: February 16, 2025 End: February 16, 2025 Dr. Danis Bustos DO Attending Provider Active S tart: February 16, 2025 End: February 16, 2025 Dr. Danis Bustos DO Referring Provider Active S tart: February 16, 2025 End: February 16, 2025 Team Status: Inactive Member Role/Relationship Status Dates Carline Ashley CATH LABORATORY TECHNICIAN, CATH LABORATORY TECHNICIAN-C Primary Care Provider Active Start: February 20, 2025 End: February 20, 2025 MAO Brown Attending Provider Active Star t: February 20, 2025 End: February 20, 2025 MAO Brown Referring Provider Active Star t: February 20, 2025 End: February 20, 2025 Team Status: Active Member Role/Relationship Status Dates Carline Ashley CATH LABORATORY TECHNICIAN, CATH LABORATORY TECHNICIAN-C Primary Care Provider Active Start: February 20, 2025 Dr. Selvin Frost MD Attending Provider Active S tart: February 20, 2025 MAO Brown Referring Provider Active Star t: February 20, 2025 Team Status: Inactive Member Role/Relationship Status Dates Carline Ashley CATH LABORATORY TECHNICIAN, CATH LABORATORY TECHNICIAN-C Primary Care Provider Active Start: February 21, 2025 End: February 21, 2025 Carline Ashley CATH LABORATORY TECHNICIAN, CATH LABORATORY TECHNICIAN-C Referring Provider Ac tive Start: February 21, 2025 End: February 21, 2025 Dr. Joseph Torres MD Attending Provider Active S tart: February 21, 2025 End: February 21, 2025 Team Status: Active Member Role/Relationship Status Dates Carline Ashley CATH LABORATORY TECHNICIAN, CATH LABORATORY TECHNICIAN-C Primary Care Provider Active Start: February 21, 2025 Dr. Joseph Torres MD Attending Provider Active S tart: February 21, 2025 Dr. Joseph Torres MD Referring Provider Active S tart: February 21, 2025 Team Status: Active Member Role/Relationship Status Dates Carline Ashley CATH LABORATORY TECHNICIAN, CATH LABORATORY TECHNICIAN-C Primary Care Provider Active Start: February 22, 2025 Dr. Danis Bustos , Attending Provider Active S tart: February 22, 2025 Dr. Danis Bustos , Referring Provider Active S tart: February 22, 2025 Dr. Danis Bustos , Other Provider Active Start : February 22, 2025 Team Status: Inactive Member Role/Relationship Status Dates Carline Ashley CATH LABORATORY TECHNICIAN, CATH LABORATORY TECHNICIAN-C Primary Care Provider Active Start: February 24, 2025 End: February 24, 2025 MAO Byrd Attending Provider Active Start: February 24, 2025 End: February 24, 2025 MAO Byrd Referring Provider Active Start: February 24, 2025 End: February 24, 2025 Team Status: Inactive Member Role/Relationship Status Dates Carline Ashley CATH LABORATORY TECHNICIAN, CATH LABORATORY TECHNICIAN-C Primary Care Provider Active Start: March 10, 2025 End: March 10, 2025 Carline Ashley CATH LABORATORY TECHNICIAN, CATH LABORATORY TECHNICIAN-C Referring Provider Ac tive Start: March 10, 2025 End: March 10, 2025 Rupali Deng CATH LABORATORY TECHNICIAN-C Attending Provider Active Start: March 10, 2025 End: March 10, 2025 Team Status: Inactive Member Role/Relationship Status Dates Carline Ashley CATH LABORATORY TECHNICIAN, CATH LABORATORY TECHNICIAN-C Primary Care Provider Active Start: April 12, 2025 End: April 12, 2025 Carline Ashley CATH LABORATORY TECHNICIAN, CATH LABORATORY TECHNICIAN-C Attending Provider Ac tive Start: April 12, 2025 End: April 12, 2025 Carline Ashley CATH LABORATORY TECHNICIAN, CATH LABORATORY TECHNICIAN-C Referring Provider Ac tive Start: April 12, 2025 End: April 12, 2025 Team Status: Inactive Member Role/Relationship Status Dates Carline Ashley CATH LABORATORY TECHNICIAN, CATH LABORATORY TECHNICIAN-C Primary Care Provider Active Start: April 18, 2025 End: April 18, 2025 Carline Ashley CATH LABORATORY TECHNICIAN, CATH LABORATORY TECHNICIAN-C Referring Provider Ac tive Start: April 18, 2025 End: April 18, 2025 Dr. Adi Kincaid DO Attending Provider Active Start: April 18, 2025 End: April 18, 2025 Team Status: Active Member Role/Relationship Status Dates Carline Ashley CATH LABORATORY TECHNICIAN, CATH LABORATORY TECHNICIAN-C Primary Care Provider Active Start: April 18, 2025 Carline Ashley CATH LABORATORY TECHNICIAN, CATH LABORATORY TECHNICIAN-C Referring Provider Ac tive Start: April 18, 2025 Dr. Adi Kincaid DO Attending Provider Active Start: April 18, 2025 Dr. Adi Kincaid DO Other Provider Active St art: April 18, 2025 Team Status: Inactive Member Role/Relationship Status Dates Carline Ashley CATH LABORATORY TECHNICIAN, CATH LABORATORY TECHNICIAN-C Primary Care Provider Active Start: May 10, 2025 End: May 10, 2025 Carline Ashley CATH LABORATORY TECHNICIAN, CATH LABORATORY TECHNICIAN-C Referring Provider Ac tive Start: May 10, 2025 End: May 10, 2025 MAO Byrd Attending Provider Active Start: May 10, 2025 End: May 10, 2025 Team Status: Inactive Member Role/Relationship Status Dates Carline Ashley CATH LABORATORY TECHNICIAN, CATH LABORATORY TECHNICIAN-C Primary Care Provider Active Start: May 10, 2025 End: May 10, 2025 MAO Byrd Attending Provider Active Start: May 10, 2025 End: May 10, 2025 MAO Byrd Referring Provider Active Start: May 10, 2025 End: May 10, 2025 Team Status: Inactive Member Role/Relationship Status Dates Carline Ashley CATH LABORATORY TECHNICIAN, CATH LABORATORY TECHNICIAN-C Primary Care Provider Active Start: February 14, 2025 End: February 14, 2025 Dr. Danis Bustos DO Attending Provider Active S tart: February 14, 2025 End: February 14, 2025 Dr. Danis Bustos DO Referring Provider Active S tart: February 14, 2025 End: February 14, 2025 Team Status: Inactive Member Role/Relationship Status Dates Carline Ashley CATH LABORATORY TECHNICIAN, CATH LABORATORY TECHNICIAN-C Primary Care Provider Active Start: February 15, 2025 End: February 15, 2025 Carline Ashley CATH LABORATORY TECHNICIAN, CATH LABORATORY TECHNICIAN-C Referring Provider Ac tive Start: February 15, 2025 End: February 15, 2025 MAO Byrd Attending Provider Active Start: February 15, 2025 End: February 15, 2025 Team Status: Inactive Member Role/Relationship Status Dates Carline Ashley CATH LABORATORY TECHNICIAN, CATH LABORATORY TECHNICIAN-C Primary Care Provider Active Start: February 15, 2025 End: February 15, 2025 MAO Byrd Attending Provider Active Start: February 15, 2025 End: February 15, 2025 MAO Byrd Referring Provider Active Start: February 15, 2025 End: February 15, 2025 Team Status: Inactive Member Role/Relationship Status Dates Carline Ashley CATH LABORATORY TECHNICIAN, CATH LABORATORY TECHNICIAN-C Primary Care Provider Active Start: February 16, 2025 End: February 16, 2025 Dr. Danis Bustos , Attending Provider Active S tart: February 16, 2025 End: February 16, 2025 Dr. Danis Bustos DO Referring Provider Active S tart: February 16, 2025 End: February 16, 2025 Team Status: Inactive Member Role/Relationship Status Dates Carline Ashley CATH LABORATORY TECHNICIAN, CATH LABORATORY TECHNICIAN-C Primary Care Provider Active Start: February 20, 2025 End: February 20, 2025 MAO Brown Attending Provider Active Star t: February 20, 2025 End: February 20, 2025 MAO Brown Referring Provider Active Star t: February 20, 2025 End: February 20, 2025 Team Status: Active Member Role/Relationship Status Dates Carline Ashley CATH LABORATORY TECHNICIAN, CATH LABORATORY TECHNICIAN-C Primary Care Provider Active Start: February 20, 2025 Dr. Selvin Frost MD Attending Provider Active S tart: February 20, 2025 MAO Brown Referring Provider Active Star t: February 20, 2025 Team Status: Inactive Member Role/Relationship Status Dates Carline Ashley CATH LABORATORY TECHNICIAN, CATH LABORATORY TECHNICIAN-C Primary Care Provider Active Start: February 21, 2025 End: February 21, 2025 Carline Ashley CATH LABORATORY TECHNICIAN, CATH LABORATORY TECHNICIAN-C Referring Provider Ac tive Start: February 21, 2025 End: February 21, 2025 Dr. Joseph Torres MD Attending Provider Active S tart: February 21, 2025 End: February 21, 2025 Team Status: Active Member Role/Relationship Status Dates Carline Ashley CATH LABORATORY TECHNICIAN, CATH LABORATORY TECHNICIAN-C Primary Care Provider Active Start: February 21, 2025 Dr. Joseph Torres MD Attending Provider Active S tart: February 21, 2025 Dr. Joseph Torres MD Referring Provider Active S tart: February 21, 2025 Team Status: Active Member Role/Relationship Status Dates Carline Ashley CATH LABORATORY TECHNICIAN, CATH LABORATORY TECHNICIAN-C Primary Care Provider Active Start: February 22, 2025 Dr. Danis Bustos DO Attending Provider Active S tart: February 22, 2025 Dr. Danis Bustos , Referring Provider Active S tart: February 22, 2025 Dr. Danis Bustos , Other Provider Active Start : February 22, 2025 Team Status: Inactive Member Role/Relationship Status Dates Carline Ashley CATH LABORATORY TECHNICIAN, CATH LABORATORY TECHNICIAN-C Primary Care Provider Active Start: February 24, 2025 End: February 24, 2025 MAO Byrd Attending Provider Active Start: February 24, 2025 End: February 24, 2025 MAO Byrd Referring Provider Active Start: February 24, 2025 End: February 24, 2025 Team Status: Inactive Member Role/Relationship Status Dates Carline Ashley CATH LABORATORY TECHNICIAN, CATH LABORATORY TECHNICIAN-C Primary Care Provider Active Start: March 10, 2025 End: March 10, 2025 Carline Ashley CATH LABORATORY TECHNICIAN, CATH LABORATORY TECHNICIAN-C Referring Provider Ac tive Start: March 10, 2025 End: March 10, 2025 Rupali Deng NP-C Attending Provider Active Start: March 10, 2025 End: March 10, 2025 Team Status: Inactive Member Role/Relationship Status Dates Carline Ashley CATH LABORATORY TECHNICIAN, CATH LABORATORY TECHNICIAN-C Primary Care Provider Active Start: April 12, 2025 End: April 12, 2025 Carline Ashley CATH LABORATORY TECHNICIAN, CATH LABORATORY TECHNICIAN-C Attending Provider Ac tive Start: April 12, 2025 End: April 12, 2025 Carline Ashley CATH LABORATORY TECHNICIAN, CATH LABORATORY TECHNICIAN-C Referring Provider Ac tive Start: April 12, 2025 End: April 12, 2025 Team Status: Inactive Member Role/Relationship Status Dates Carline Ashley CATH LABORATORY TECHNICIAN, CATH LABORATORY TECHNICIAN-C Primary Care Provider Active Start: April 18, 2025 End: April 18, 2025 Carline Ashley CATH LABORATORY TECHNICIAN, CATH LABORATORY TECHNICIAN-C Referring Provider Ac tive Start: April 18, 2025 End: April 18, 2025 Dr. Adi Kincaid , Attending Provider Active Start: April 18, 2025 End: April 18, 2025 Team Status: Active Member Role/Relationship Status Dates Carline Ashley CATH LABORATORY TECHNICIAN, CATH LABORATORY TECHNICIAN-C Primary Care Provider Active Start: April 18, 2025 Carline Ashley NP, CATH LABORATORY TECHNICIAN-C Referring Provider Ac tive Start: April 18, 2025 Dr. Adi Kincaid DO Attending Provider Active Start: April 18, 2025 Dr. Adi Kincaid DO Other Provider Active St art: April 18, 2025 Team Status: Inactive Member Role/Relationship Status Dates Carline Ashley CATH LABORATORY TECHNICIAN, CATH LABORATORY TECHNICIAN-C Primary Care Provider Active Start: May 10, 2025 End: May 10, 2025 Carline Ashley NP, CATH LABORATORY TECHNICIAN-C Referring Provider Ac tive Start: May 10, 2025 End: May 10, 2025 MAO Byrd Attending Provider Active Start: May 10, 2025 End: May 10, 2025 Team Status: Inactive Member Role/Relationship Status Dates Carline Ashley NP, CATH LABORATORY TECHNICIAN-C Primary Care Provider Active Start: May 10, 2025 End: May 10, 2025 MAO Byrd Attending Provider Active Start: May 10, 2025 End: May 10, 2025 MAO Byrd Referring Provider Active Start: May 10, 2025 End: May 10, 2025 Team Status: Inactive Member Role/Relationship Status Dates Carline Ashley CATH LABORATORY TECHNICIAN, CATH LABORATORY TECHNICIAN-C Primary Care Provider Active Start: June 02, 2025 End: June 02, 2025 Carline Ashley NP, CATH LABORATORY TECHNICIAN-C Referring Provider Ac tive Start: June 02, 2025 End: June 02, 2025 Rupali Deng NP-C Attending Provider Active Start: June 02, 2025 End: June 02, 2025 Goals (unrecognized section and content) Goals [...] BE BASED ON THE PRIMARY CLINICAL RECORDS. [facility]. provides no warranty or guarantee of the accuracy or completeness of information in this document.
[2025-08-06 12:58] VITALS: BP 149/78; PULSE 108; RESP 22; TEMP 36.6; O2SAT 96
== END 2025-08-06 12:59 | disposition home or self-care (01) ==
PROVIDERS: Emergency Provider Emergency Medicine; PCP Nurse Practitioner Family; Visit Provider Emergency Medicine
DX: S42.211A Unspecified displaced fracture of surgical neck of right humerus, initial encounter for closed fracture (principal); J44.9 Chronic obstructive pulmonary disease, unspecified; I10 Essential (primary) hypertension; E78.5 Hyperlipidemia, unspecified; W18.12XA Fall from or off toilet with subsequent striking against object, initial encounter; Y92.59 Other trade areas as the place of occurrence of the external cause; F17.210 Nicotine dependence, cigarettes, uncomplicated; Z79.02 Long term (current) use of antithrombotics/antiplatelets; Z79.899 Other long term (current) drug therapy
CPT/HCPCS: 73060; 99283

== ENCOUNTER → 2025-10-16 | Outpatient (CLI) | payer MEDICARE, SELFPAY ==
[2025-10-16 12:23] LABS: Hematocrit 36.8 % (37-47); Hemoglobin 11.4 g/dL (12.0-15.0); Mean Corp Hgb Conc 31.0 g/dL (32-36); Mean Corpuscular Volume 86.8 fL (81-99); Mean Platelet Vol. 10.2 fl (6.2-12.0); Platelet Count 331 K/mm3 (150-450); RBC Distribution Width CV 15.5 % (11.6-14.6); RBC Distribution Width SD 49.1 fl (35.1-43.9); Red Blood Count 4.24 M/mm3 (4.2-5.4); White Blood Count 10.0 K/mm3 (4.4-11.0)
[2025-10-16 13:15] LABS: AST(SGOT) 25 U/L (<=31); Alanine Aminotransfer ALT/SGPT 24 U/L (<=34); Albumin, Serum 4.0 g/dL (3.4-4.8); Alkaline Phosphatase 83 U/L (35-104); Anion Gap 12 (5-15); BUN 13 mg/dL (4-19); BUN/Creat Ratio 19.6 RATIO (10-20); Calcium,Total 9.4 mg/dL (7.6-11.0); Carbon Dioxide 28.2 mmol/L (21.0-32.0); Chloride 99 mmol/L (98-108); Cholesterol 155 mg/dL (<=200); Globulin 3.1 g/dL (2.2-4.2); Glucose 88 mg/dL (70-99); Low Density Lipoprotein Calc. 90 mg/dL; Magnesium 1.7 mg/dL (1.5-2.2); Potassium 4.0 mmol/L (3.3-5.1); Triglycerides 71 mg/dL; Very Low Density Lipoprotein 14 mg/dL (5-40); cholesterol:hdl ratio screen 3.02
[2025-10-16 14:14] LABS: Creatinine, Urine (random) 69.90 mg/dL (28.00-217.00); Microalbumin,Random Urine 34.8 mg/L (<20 mg/L)
== END | disposition home or self-care (01) ==
LOC: LAB 11:26
PROVIDERS: PCP Nurse Practitioner Family; Referring Provider Nurse Practitioner Family; Visit Provider Nurse Practitioner Family
DX: I12.9 Hypertensive chronic kidney disease with stage 1 through stage 4 chronic kidney disease, or unspecified chronic kidney disease (principal); N18.30 Chronic kidney disease, stage 3 unspecified; D63.1 Anemia in chronic kidney disease; E78.5 Hyperlipidemia, unspecified
CPT/HCPCS: 36415; 80053; 80061; 82043; 82570; 83735; 85027

== ENCOUNTER 2025-10-19 12:00 | Outpatient (RCR) | payer MEDICARE, SELFPAY ==
--- NOTE | 2025-09-26 15:24 | HP.PTEVAL ---
Patient's Visit Information Visit Information Visit Information: TONY BRADLEY is a 70 year old F referred to Physical Therapy by ANN MARIE James with a diagnosis of DISPLACED FRACTURE R HUMERUS HEAD 08/05/25. Date of Evaluation: 09/26/25 Physical Therapist: Idalmis Morgan PT, Cert MDT Visit Plan Frequency: 1-2x /Week Duration: 6-8 WKS Plan: CURRENTLY ONE LB LIFTING LIMIT UNTIL PHYSICIAN F/U 10/11/25. FOCUS ON RESTORING R SHLD A/AA/PROM FIRST. PATIENT AND CAREGIVER HOME INSTRUCTION. AFTER ROM IS RESTORED PROGRESS TO STRENGTHENING WITHIN LIMITS GIVEN BY PHYSICIAN. Subjective Subjective: THIS PATIENT PRESENTS TO PT S/P FALL 08/05/25 RESULTING IN R HUMERAL HEAD FRACTURE. SHE REPORTS SHE WAS IN A SLING UNTIL ABOUT 2 WEEKS AGO. SHE HAS BEEN ACTIVELY MOVING HER ELBOW, WRIST AND HAND FOR TWO WEEKS PLUS DOING ACTIVE PENDULUM X'S AND O'S AND STRETCHING HER R ARM UP WITH THE L ARM FOR 2 WEEKS. SHE IS ALSO ALLOWED TO START WRITING AND LIFTING UP TO ONE POUND UNTIL F/U 10/11/25. SHE REPORTS SHE HAS NO PAIN AT REST BUT WITH MVMT IT GETS SORE. HER PAIN RANGES 0-4/10. SHE DENIES NUMBNESS OR TINGLING. SHE STATES SHE THINKS SHE CAN LIFT IT UP A LITTLE HIGHER NOW THAN WHEN SHE SAW THE DOCTOR LAST TIME. PMH: Excessive bleeding Gastric reflux On home oxygen therapy Chronic cough Wears dentures Post-menopausal Cancer Low iron History of ulceration Smoker COPD (chronic obstructive pulmonary disease) History of echocardiogram Encounter for screening for malignant neoplasm of lung Amputated toe of left foot Vitamin D deficiency Hyperlipidemia Hypertension COPD with asthma Hypomagnesemia Hypocalcemia Hypokalemia Anticoagulant long-term use AVM (arteriovenous malformation) Colitis Transfusion of blood during current hospitalisation Antiplatelet or antithrombotic long-term use Iron (Fe) deficiency anemia Atherosclerosis of [place] arteries of extremities with gangrene, left leg Carotid stenosis, bilateral Tobacco abuse Peripheral arterial occlusive disease Cervical cancer PVD (peripheral vascular disease) Arthritis History of amputation of toe History of colonoscopy History of esophagogastroduodenoscopy (EGD) S/P femoral-femoral bypass surgery [S/P LEFT ARTERIOGRAM] Objective Objective: THIS PATIENT AMBULATES INDEP'LY INTO PT WITH HER SISTER. HER SISTER IS HELPFUL WITH HER HISTORY. JOB UE LIGHT TOUCH SENSATION IS GROSSLY INTACT AND SYMMETRICAL. SHE HAS MINIMAL R SHLD TENDERNESS AND SWELLING. SHE DEMONSTRATES FULL ACTIVE R ELBOW, FOREARM, WRIST AND HAND ROM. AROM R SHLD: FLEX 75 DEG, ABD 58 DEG, EXTENSION 40 DEG. PROM IN SUPINE: FLEX 110 DEG, ABD 80 DEG, ER 24 DEG, IR 50 DEG (ROT MEASURED WITH 70 DEG ABD) WITH END RANGE PAIN ALL PLANES. NECK AND L UE ROM ARE WFL AND PATIENT DENIES PAIN WITH TESTING. L UE STRENGTH IS WFL. PATIENT REPORTS ONE LB LIFTING LIMIT UNTIL PHYSICIAN FOLLOW UP IN 2 WKS. TREATMENT: HEP CHECK - PENDULUM X'S AND O'S, AROM OF ELBOW, WRIST AND HAND. INSTRUCTED PATIENT IN PASSIVE R SHLD FLEXION WITH TABLE WALK AWAYS. INSTRUCTED SISTER IN R SHLD PASSIVE FLEX, IR AND ER WITH PATIENT SUPINE X 10 EA, TWICE A DAY KEEPING PATIENTS SUBJECTIVE PAIN RATING 0-2/10. SISTER DEMONSTATED GOOD TECHNIQUE AND PATIENT COMFORTABLE WITH SISTER DOING ROM WITH HER. PATIENT ALSO RESPONDED WELL TO NEW EX GIVEN FOR PASSIVE FLEXION. AFTER DISCUSSION, PATIENT OPEN TO COMING TO OUT-PATIENT PT UP TO 2X'S A WEEK FOR SHOULDER REHAB WITH SISTER HELPING WITH EX'S AT HOME BETWEEN SESSIONS. Balance/Special Test Scores Quick DASH Score: [phone] Goals Goal 1:: RESTORE R SHLD ROM TO WFL TO EASE ADL'S. Goal Time Frame: 4-6 Weeks Goal 2:: INCREASE R UE FUNCTIONAL STRENGTH TO AT LEAST 4-/5 TO IMPROVE ADL INDEPENDENCE Goal Time Frame: 4-6 Weeks Goal 3:: PATIENT WILL SCORE AT LEAST 10 POINT IMPROVEMENT ON QUICK DASH QUESTIONAIRE Goal Time Frame: 6-8 Weeks Goal 4:: INDEP HEP FOR CONTINUED IMPROVEMENT ONCE FORMAL PHYSICAL THERPAY CONCLUDES. Goal Time Frame: 6-8 Weeks Rehabilitation Potential Physical Therapy Diagnosis: R UE STIFFNESS AND WEAKNESS S/P FALL RESULTING IN HUMERUS HEAD FX 08/05/25 Rehabilitation Potential: Good Anticipated Interventions Patient/Client Instruction: Educate patient on: Condition, Plan of Care and Risk Factors For the Purpose of:: To facilitate caregiver knowledge and To improve self management Therapeutic Exercise to Include: Strength training, Postural training, Flexibilty training, Neuromotor development, Passive ROM, Active ROM and Scapular Strength/Stabilization For the Purpose of:: To decrease pain, To decrease swelling/inflammation, To improve nutrient delivery to tissue, To increase oxygenation perfusion, To improve muscle performance and motor function, To increase tolerance to activity/condition/position, To improve performance and independence with ADL's, To improve ability of physical actions for home/community/work/leisure, To increase flexibility/ROM and To improve self management Manual Therapy Techniques to Include: Mobilization and Passive ROM For the Purpose of:: To improve nutrient delivery to tissue, To decrease soft tissue restriction and To increase flexibility/ROM Cryotherapy (ice pack, ice massage): Yes Thermo therapy (hot pack): Yes For the Purpose of:: To decrease pain, To decrease swelling/inflammation and To improve nutrient delivery to tissue Text: Thank you for the opportunity to evaluate your patient. For Medicare and Medicare HMO plans, please review the plan of care and approve it. It will need to be FAXED BACK to us at [phone] for Medicare purposes. For Medicare only, by signing this I certify the plan of care. Please let me know if there are questions or concerns regarding this plan of care. Physician Signature: Date:
--- NOTE | 2025-11-14 15:25 | HP.PT.NRP ---
Patient Information Patient Information: TONY BRADLEY was seen in my office for initial evaluation on 09/26/25. The following Plan of Care was established for this patient: POC Established Initial Frequency: 1-2x /Week Initial Duration: 6-8 WKS Anticipated Interventions Patient/Client Instruction: Educate patient on: Condition, Plan of Care and Risk Factors For the Purpose of:: To facilitate caregiver knowledge and To improve self management Therapeutic Exercise to Include: Strength training, Postural training, Flexibilty training, Neuromotor development, Passive ROM, Active ROM and Scapular Strength/Stabilization For the Purpose of:: To decrease pain, To decrease swelling/inflammation, To improve nutrient delivery to tissue, To increase oxygenation perfusion, To improve muscle performance and motor function, To increase tolerance to activity/condition/position, To improve performance and independence with ADL's, To improve ability of physical actions for home/community/work/leisure, To increase flexibility/ROM and To improve self management Manual Therapy Techniques to Include: Mobilization and Passive ROM For the Purpose of:: To improve nutrient delivery to tissue, To decrease soft tissue restriction and To increase flexibility/ROM Cryotherapy (ice pack, ice massage): Yes Thermo therapy (hot pack): Yes For the Purpose of:: To decrease pain, To decrease swelling/inflammation and To improve nutrient delivery to tissue Last Seen Last Seen: This patient was last seen in our office 10/19/25. Pertinent comments regarding their Physical therapy will appear below: It has been my pleasure to see this patient for a total of 6 visits. This patient has not returned to Physical Therapy for more visits and is appropriate to return to MD for further follow-up as needed. At this point I will be discontinuing this patient from physical therapy. I would be happy to see this patient again in the future if found appropriate by the physician. Thank you! Idalmis Morgan, PT, Cert MDT Balance/Gait/Functional tests Balance/Special Test Scores Quick DASH Score: [phone]
== END 2025-10-19 19:00 | disposition home or self-care (01) ==
LOC: PT 12:00
PROVIDERS: PCP Nurse Practitioner Family; Referring Provider Nurse Practitioner Family; Visit Provider Nurse Practitioner Family
DX: S42.293D Other displaced fracture of upper end of unspecified humerus, subsequent encounter for fracture with routine healing (principal)
CPT/HCPCS: 97140; 97162; 97530

== ENCOUNTER 2025-10-23 06:52 | Day surgery (SDC) | payer MEDICARE, SELFPAY ==
--- NOTE | 2025-10-19 16:52 | PAT.ANE_ITS ---
Pre-Assessment Diagnosis/Proposed Procedure Planned Operative Procedure(s): EGD Anesthesia History Anesthesia History - [employer] plans intelligence officer: Anesthesia History - [employer] intelligence officer Hx Hospitalization No 10/19/25 16:16 Any Problems With Anesthesia No 10/19/25 16:16 Cholinesterase deficiency No 10/19/25 16:16 You/Your Family Experience No 10/19/25 16:16 fever (hyperthermia) with Relationship Recent Exposure to Contagious No 04/18/25 05:44 Disease Does patient have nerve No 10/19/25 16:16 stimulator Patient instructed to have device shut off --Does patient have Pacemaker or ICD? When Was Last Pacemaker Check QUESTION #4 FULL TEXT: You/Your Family Experience fever (hyperthermia) with Anesthesia Last Oral Intake Last Oral intake: Last Oral Intake NPO since Meds taken in AM with sips of water? Meds patient instructed to take am of surgery PONV PONV - [employer] intelligence officer: PONV - [employer] intelligence officer Female Yes 10/19/25 16:16 HX of Motion Sickness No 10/19/25 16:16 HX of N/V After Surgery No 10/19/25 16:16 Non-Smoker No 10/19/25 16:16 Duration of Surgery greater No 10/19/25 16:16 than 60 minutes Number of Risk Factors 1 10/19/25 16:16 PONV Score Low Risk 10/19/25 16:16 Height & Weight Height & Weight: Anesthesia: Height & Weight Height 5 ft 2 in 04/18/25 05:44 Respiratory Assessment Respiratory Assessment - [employer] intelligence officer: Respiratory Tract Infection Hx - [employer] intelligence officer Hx Respiratory Tract Infection No 10/19/25 16:16 STOP Sleep Apnea STOP Sleep Apnea - [employer] intelligence officer: STOP Sleep Apnea - [employer] intelligence officer Hx Hypertension Yes: ON MEDS 10/19/25 16:16 Hx Sleep Apnea No 10/19/25 16:16 CPAP No 04/18/25 07:30 BIPAP No 04/12/25 14:27 Do you snore loudly (louder No 10/19/25 16:16 than talking or can be heard Do you often feel tired/ No 10/19/25 16:16 fatigued/ sleepy during daytime? Has anyone observed you stop No 10/19/25 16:16 breathing during sleep? STOP Results Negative 10/19/25 16:16 QUESTION #5 FULL TEXT : Do you snore loudly (louder than talking or can be heard through closed doors)? Tobacco Use History Tobacco Use History - [employer] intelligence officer: Tobacco Use History - [employer] intelligence officer Tobacco Use Smoking Status Light Smoker (<10/day) 10/19/25 16:16 Hx Tobacco Use Yes 10/19/25 16:16 Years Smoking 30 10/19/25 16:16 Packs Smoked per Day Smoking Cessation Date was within the last 15 years Hx Smoking Cessation Date Hx Smoking Cessation Counseling Hematologic Medial History Hematologic Hx - [employer] intelligence officer: Hematologic Medical Hx - clinical documentation specialist Hx of Blood Transfusion Yes 10/19/25 16:16 Hx of Transfusion in last 3 No 10/19/25 16:16 Months Date of Last Transfusion (if within last 3 months) Ever experience any problems No 10/19/25 16:16 with transfusion(s)? Specify any problems Hx of Preganancy in last 3 No 10/19/25 16:16 Months Nurse Filling Out Transfusion JZOLLDIANE 10/19/25 16:16 & Questions: Date: 10/19/25 10/19/25 16:16 Time: 16:18 10/19/25 16:16 Patient unable to answer at this time (ie. confused, unrespo /Reproduction History /Reproductive History - [employer] plans intelligence officer: /Reproductive Hx- [employer] intelligence officer Hx Now No 10/19/25 16:16 Gestational Age (in weeks): EDC: Hx Hx Para Hx Section SAB No 10/19/25 16:16 Does the father of the baby or his family experience fever w Father of the baby Malignant Hypertension history comment PFSH Medical History Excessive bleeding Gastric reflux On home oxygen therapy Chronic cough Wears dentures Post-menopausal Cancer Low iron History of ulceration Smoker COPD (chronic obstructive pulmonary disease) History of echocardiogram Encounter for screening for malignant neoplasm of lung Amputated toe of left foot Vitamin D deficiency Hyperlipidemia Hypertension COPD with asthma Hypomagnesemia Hypocalcemia Hypokalemia Anticoagulant long-term use AVM (arteriovenous malformation) Colitis Transfusion of blood during current hospitalisation Antiplatelet or antithrombotic long-term use Iron (Fe) deficiency anemia Atherosclerosis of [place] arteries of extremities with gangrene, left leg Carotid stenosis, bilateral Tobacco abuse Peripheral arterial occlusive disease Cervical cancer PVD (peripheral vascular disease) Arthritis Home Medications ?Medication ?Instructions ?Recorded ?Last Taken ?Type albuterol sulfate 90 mcg/actuation 2 puff inhalation Q 6H PRN 01/08/24 01/03/25 History aerosol inhaler shortness of breath or wheez ing amlodipine 5 mg tablet 5 mg PO 1600 blood pressure 01/08/24 01/03/25 History rosuvastatin 10 mg tablet 10 mg PO DAILY cholesterol 0 01/08/24 01/03/25 History cholecalciferol (vitamin D3) 1,250 1,250 mcg PO QMONTH vitamin 05/03/24 01/03/25 History mcg (50,000 unit) capsule oxymetazoline 0.05 % nasal spray 2 spray intranasal BI D PRN nasal 05/18/24 01/03/25 History (12 Hour Nasal Relief [place]) congestion clopidogrel 75 mg tablet (Plavix) 75 mg PO DAILY #90 t abs 02/15/25 04/15/25 Rx fluticasone fur. 100 mcg-umeclid 1 inh inhalation Q24H #60 ea 04/04/25 Unknown Rx 62.5 mcg-vilant 25 mcg inhalat.powder (Trelegy Ellipta) resmetirom 60 mg tablet (Rezdiffra) 60 mg PO QDAY #30 tabs 08/09/25 Unknown Rx calcium citrate 250 mg PO QDAY 08/10/25 Unkn own History tramadol 50 mg tablet 50 - 100 mg (1 - 2 x 50 mg) PO Q6H 08/28/25 Unknown Rx PRN pain #30 tabs pantoprazole 40 mg tablet,delayed 40 mg PO BID #90 tab s 09/12/25 Unknown Rx release OXYGEN - Supplemental ([facility] 10/19/25 Unknown History INFORMATIONAL USE ONLY) Allergy/AdvReac Type Severity Reaction Status Date / Time No Known Allergies Allergy Verified 10/19/25 16:07 Family History Mother Breast cancer Surgical History History of amputation of toe History of colonoscopy History of esophagogastroduodenoscopy (EGD) S/P femoral-femoral bypass surgery S/P LEFT ARTERIOGRAM Social History household members: none Smoking Status: Light Smoker (<10/day) alcohol intake: former substance use type: does not use caffeine: Yes (coffee) Type: coffee Audit: Pertinent Findings Pertinent Findings EKG Perinent findings: 05/22/2024. Sinus tachycardia 110 bpm. Otherwise normal EKG. Echo (EF%) pertinent findings: May 05, 2024. EF of 60%. No aortic stenosis. Recommendation Anesthesia Recommendation Anesthesia recommendation: OPTIMIZED for anesthesia
[2025-10-23] VITALS (9 sets, daily range): BP systolic 108–123; BP diastolic 65–86; PULSE 103–112; RESP 18–20; TEMP 36.5–37; O2SAT 83–96; BMI 34.1
--- NOTE | 2025-10-23 07:10 | PCM.HP.STD ---
HPI - General General Date of Admission: 10/23/25 Date of Service: 10/23/25 Chief Complaint: Peptic ulcer disease and esophageal varices HPI Narrative BRENDA BRADLEY, is a 70 F who presents [ Chief Complaint: GI bleed . PMHx of GI bleeding from AVMs and gastric ulcers. EGD 05.22.24; - Grade I esophageal varices. - Oozing gastric ulcers with a visible vessel. Injected. Treated with a heater probe. - Normal second portion of the duodenum. - No specimens collected. Colonoscopy 05.06.24;- Preparation of the colon was fair. - Three bleeding colonic angiodysplastic lesions. Treated with a heater probe. - Diverticulosis in the recto-sigmoid colon and in the sigmoid colon. - Stool in the sigmoid colon, in the transverse colon and in the ascending colon. - Patchy moderate inflammation was found in the sigmoid colon, in the ascending colon and in the cecum secondary to colitis. Biopsied. - Stricture in the terminal ileum. Biopsied. EGD 09.13.24 LA Grade A reflux esophagitis with no bleeding. - Medium-sized hiatal hernia. - Red blood in the gastric body. - Non-bleeding gastric ulcers with no stigmata of bleeding. - Three bleeding angiodysplastic lesions in the stomach. - Normal first portion of the duodenum. Biopsied. Last OV 10.20.24; Pt doing well with no GI concerns. Scheduled for repeat EGD. Continue PPI EGD 01.04.25; - Normal esophagus. - Medium-sized hiatal hernia. - Oozing gastric ulcer with pigmented material. Treated with hot biopsy forceps. - No gross lesions in the duodenal bulb and in the first portion of the duodenum. - No specimens collected. Liver Elastography 4..25; 14 kPa *Start Rezdiffra EGD 04.18.25 - Esophageal plaques were found, consistent with candidiasis. Biopsied. - Red blood in the gastric body. - One bleeding angiodysplastic lesion in the stomach. Treated with a heater probe. Clip was placed. Clip trial management associate: Steek SA. - A few non-bleeding angiodysplastic lesions in the duodenum. Treated with a heater probe. OV 6.25 Pt here today for f/u after her scope. SHe has been feeling well with no GI complaints. She continues with Omeprazole 40 mg BID. She was not able to get Rezdiffra. ] [facility] Medical History Excessive bleeding Gastric reflux On home oxygen therapy Chronic cough Wears dentures Post-menopausal Cancer Low iron History of ulceration Smoker COPD (chronic obstructive pulmonary disease) History of echocardiogram Encounter for screening for malignant neoplasm of lung Amputated toe of left foot Vitamin D deficiency Hyperlipidemia Hypertension COPD with asthma Hypomagnesemia Hypocalcemia Hypokalemia Anticoagulant long-term use AVM (arteriovenous malformation) Colitis Transfusion of blood during current hospitalisation Antiplatelet or antithrombotic long-term use Iron (Fe) deficiency anemia Atherosclerosis of [place] arteries of extremities with gangrene, left leg Carotid stenosis, bilateral Tobacco abuse Peripheral arterial occlusive disease Cervical cancer PVD (peripheral vascular disease) Arthritis Home Medications ?Medication ?Instructions ?Recorded ?Last Taken ?Type albuterol sulfate 90 mcg/actuation 2 puff inhalation Q6H PRN 01/08/24 01/03/25 History aerosol inhaler shortness of breath or wheezing amlodipine 5 mg tablet 5 mg PO 1600 blood pressure 01/08/24 01/03/25 History rosuvastatin 10 mg tablet 10 mg PO DAILY cholesterol 01/08/24 01/03/25 History cholecalciferol (vitamin D3) 1,250 1,250 mcg PO QMONTH vitamin 05/03/24 01/03/25 History mcg (50,000 unit) capsule oxymetazoline 0.05 % nasal spray 2 spray intranasal BID PRN nasal 05/18/24 01/03/25 History (12 Hour Nasal Relief [place]) congestion clopidogrel 75 mg tablet (Plavix) 75 mg PO DAILY #90 tabs 02/15/25 04/15/25 Rx fluticasone fur. 100 mcg-umeclid 1 inh inhalation Q24H #60 ea 04/04/25 Unknown Rx 62.5 mcg-vilant 25 mcg inhalat.powder (Trelegy Ellipta) resmetirom 60 mg tablet (Rezdiffra) 60 mg PO QDAY #30 tabs 08/09/25 Unknown Rx calcium citrate 250 mg PO QDAY 08/10/25 Unknown History tramadol 50 mg tablet 50 - 100 mg (1 - 2 x 50 mg) PO Q6H 08/28/25 Unknown Rx PRN pain #30 tabs pantoprazole 40 mg tablet,delayed 40 mg PO BID #90 tabs 09/12/25 Unknown Rx release OXYGEN - Supplemental ([facility] 10/19/25 Unknown History INFORMATIONAL USE ONLY) Allergy/AdvReac Type Severity Reaction Status Date / Time No Known Allergies Allergy Verified 10/23/25 07:14 Family History Mother Breast cancer Surgical History History of amputation of toe History of colonoscopy History of esophagogastroduodenoscopy (EGD) S/P femoral-femoral bypass surgery S/P LEFT ARTERIOGRAM Social History household members: none Smoking Status: Current every day smoker tobacco type: cigarettes alcohol intake: former substance use type: does not use caffeine: Yes (coffee) Type: coffee ROS Constitutional Constitutional: Denies fatigue, fever(s), poor appetite, weight gain or weight loss Gastrointestinal Gastrointestinal: Denies belching, bloating, change in bowel habits, change in stool character, chewing difficulty, coffee ground emesis, constipation, cramping, diarrhea, dyspepsia, dysphagia, early satiety, excessive flatus, fecal incontinence, heartburn, hematemesis, hematochezia, hemorrhoids, loose stools, melena, nausea, odynophagia, rectal bleeding, tenesmus, vomiting or weight changes Physical Exam Const alert, oriented x3, no apparent distress and healthy appearing General Appearance: cooperative GI normal to inspection, nondistended, normoactive bowel sounds, soft to palpation, non-tender and non-distended Percussion: normal to percussion Rectal Exam: deferred Assessment & Plan Assessment/Plan (1) Esophageal varices: (2) Gastric ulcer: PLAN: Assessment and Plan Assessment and Plan (1) Liver fibrosis: Status: Acute Plan: Brenda is a 69 yo female pt here today for f/u after EGD. Pt has a PMHx of gastric ulcers and bleeding AVMs. Last EGD showing bleeding AVMs in her stomach and duodenum but no ulcers. SHe continues with twice daily PPI. SHe will repeat EGD in 6 months. Liver elastography form February 2025 showing liver fibrosis with a stiffness of 14.7 kPa. The process of starting rezdiffra was started however she never received the medication. Will check in on this. If she is not approved, will start her on Ursodiol. Chronic liver disease blood work ordered. -Repeat EGD in 6 months -Continue PPI BID -Start Rezdiffra -Blood work -f/u after procedure (2) Esophageal varices: Status: Acute (3) Gastric ulcer: Status: Acute Orders: Orders AFP, Tumor Marker Today K74.00 - Hepatic fibrosis, unspecified Ammonia Today K74.00 - Hepatic fibrosis, unspecified LIZA Comprehensive Panel Today K74.00 - Hepatic fibrosis, unspecified ANCA Today K74.00 - Hepatic fibrosis, unspecified Angiotensin Convert Enzyme Today K74.00 - Hepatic fibrosis, unspecified Anti-Mitochondrial AB Today K74.00 - Hepatic fibrosis, unspecified Anti-Smooth Muscle ABS Today K74.00 - Hepatic fibrosis, unspecified CBC W/Diff, Automated Today D50.9 - Iron deficiency anemia, unspecified, K74.00 - Hepatic fibrosis, unspecified Comprehensive Metabolic Profil Today K74.00 - Hepatic fibrosis, unspecified Ceruloplasmin Today K74.00 - Hepatic fibrosis, unspecified Copper, Serum or Plasma Today K74.00 - Hepatic fibrosis, unspecified CRP Today K74.00 - Hepatic fibrosis, unspecified Erythrocyte Sed Rate Today K74.00 - Hepatic fibrosis, unspecified Triglycerides Today K74.00 - Hepatic fibrosis, unspecified, K76.0 - Fatty (change of) liver, not elsewhere classified Lipid Profile Today K74.00 - Hepatic fibrosis, unspecified, K76.0 - Fatty (change of) liver, not elsewhere classified Prothrombin Time w/INR Today K74.00 - Hepatic fibrosis, unspecified Hepatitis Panel Acute Today K74.00 - Hepatic fibrosis, unspecified
--- NOTE | 2025-10-23 07:11 | PRE.ANES_ITS ---
ASA Classification* ASA Classification ASA Classification: 3 Assessment & Plan Anesthesia* Anesthesia Assessment Anesthesia Assessment: Discussed sedation and/or anesthesia options, risks, benefits, and alternatives with patient/parents/legal guardian/POA. Questions invited. The patient/parents/legal guardian/POA seems to understand and agrees to proceed with anesthesia plan. Reviewed the physical assessment, medical history, allergy history and patient home medications list prior to surgery/procedure/anesthetic and documented any changes. Performed airway and anesthesia risk assessments. Anesthesia Type Anesthesia Type: MAC Anesthesia Focused Assessment* Airway Assessment Mouth opens: >3 cm Mallampati Score: II Labs Anesthesia Preop lab: CBC WBC, (4.4-11.0) 10.0 K/mm3 10/16/25, RBC, (4.2-5.4) 4.24 M/mm3 10/16/25, Hgb, (12.0-15.0) 11.4 g/dL L 10/16/25, Hct, (37-47) 36.8 % L 10/16/25, Plt Count, (150-450) 331 K/mm3 10/16/25, : CHEMISTRY Potassium, (3.3-5.1) 4.0 mmol/L 10/16/25, Sodium, (133-145) 140 mmol/L 10/16/25, Magnesium, (1.5-2.2) 1.7 mg/dL 10/16/25, Phosphorus, (2.5-4.9) 2.5 mg/dL 09/06/24, 14:21 BUN, (4-19) 13 mg/dL 10/16/25, : Creatinine, (0.70-1.20) 0.66 mg/dL L 10/16/25, Glucose, (70-99) 88 mg/dL 10/16/25, POC Glucose, (74-106) 92 mg/dL 05/10/24, 11:15 TSH, (0.358-3.74) 1.68 uIU/mL 05/04/24, 06:10 COAG PT, (11.7-14.9) 13.2 SECONDS 05/10/25, 10:55 Pre-Assessment Diagnosis/Proposed Procedure Planned Operative Procedure(s): EGD Anesthesia History 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 When Was Last Pacemaker Check QUESTION #4 FULL TEXT: You/Your Family Experience fever (hyperthermia) with Anesthesia Last Oral Intake Last Oral intake: Last Oral Intake NPO since Meds taken in AM with sips of water? Meds patient instructed to take am of surgery PONV PONV - equipment mechanic specialist: PONV - equipment mechanic specialist Female Yes 10/19/25 16:16 HX of Motion Sickness No 10/19/25 16:16 HX of N/V After Surgery No 10/19/25 16:16 Non-Smoker No 10/19/25 16:16 Duration of Surgery greater No 10/19/25 16:16 than 60 minutes Number of Risk Factors 1 10/19/25 16:16 PONV Score Low Risk 10/19/25 16:16 Height & Weight Height & Weight: Anesthesia: Height & Weight Height 5 ft 2 in 09/13/25 10:55 Respiratory Assessment Respiratory Assessment - equipment mechanic specialist: Respiratory Tract Infection Hx - equipment mechanic specialist Hx Respiratory Tract Infection No 10/19/25 16:16 STOP Sleep Apnea STOP Sleep Apnea - equipment mechanic specialist: STOP Sleep Apnea - equipment mechanic specialist Hx Hypertension Yes: ON MEDS 10/19/25 16:16 Hx Sleep Apnea No 10/19/25 16:16 CPAP No 09/12/25 11:12 BIPAP No 09/12/25 11:12 Do you snore loudly (louder No 10/19/25 16:16 than talking or can be heard Do you often feel tired/ No 10/19/25 16:16 fatigued/ sleepy during daytime? Has anyone observed you stop No 10/19/25 16:16 breathing during sleep? STOP Results Negative 10/19/25 16:16 QUESTION #5 FULL TEXT : Do you snore loudly (louder than talking or can be heard through closed doors)? 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 Specify any problems Hx of Preganancy in last 3 No 10/19/25 16:16 Months Nurse Filling Out Transfusion JZOLLINGE 10/19/25 16:16 & Questions: Date: 10/19/25 10/19/25 16:16 Time: 16:18 10/19/25 16:16 Patient unable to answer at this time (ie. confused, unrespo /Reproduction History /Reproductive History - equipment mechanic specialist: /Reproductive Hx- equipment mechanic specialist Hx Now No 10/19/25 16:16 Gestational Age (in weeks): EDC: Hx Hx Para Hx Section SAB No 10/19/25 16:16 Does the father of the baby or his family experience fever w Father of the baby Malignant Hypertension history comment Active Medications Active Medications: Current Medications Generic Name Dose Route Start Last Admin Trade Name Freq PRN Reason Stop Dose Admin Lactated Ringer's 1,000 mls @ 15 mls/hr 10/23/25 07:00 IV .Q48H ERNST PFSH Medical History Excessive bleeding Gastric reflux On home oxygen therapy Chronic cough Wears dentures Post-menopausal Cancer Low iron History of ulceration Smoker COPD (chronic obstructive pulmonary disease) History of echocardiogram Encounter for screening for malignant neoplasm of lung Amputated toe of left foot Vitamin D deficiency Hyperlipidemia Hypertension COPD with asthma Hypomagnesemia Hypocalcemia Hypokalemia Anticoagulant long-term use AVM (arteriovenous malformation) Colitis Transfusion of blood during current hospitalisation Antiplatelet or antithrombotic long-term use Iron (Fe) deficiency anemia Atherosclerosis of [place] arteries of extremities with gangrene, left leg Carotid stenosis, bilateral Tobacco abuse Peripheral arterial occlusive disease Cervical cancer PVD (peripheral vascular disease) Arthritis Home Medications ?Medication ?Instructions ?Recorded ?Last Taken ?Type albuterol sulfate 90 mcg/actuation 2 puff inhalation Q 6H PRN 01/08/24 01/03/25 History aerosol inhaler shortness of breath or wheez ing amlodipine 5 mg tablet 5 mg PO 1600 blood pressure 01/08/24 01/03/25 History rosuvastatin 10 mg tablet 10 mg PO DAILY cholesterol 0 01/08/24 01/03/25 History cholecalciferol (vitamin D3) 1,250 1,250 mcg PO QMONTH vitamin 05/03/24 01/03/25 History mcg (50,000 unit) capsule oxymetazoline 0.05 % nasal spray 2 spray intranasal BI D PRN nasal 05/18/24 01/03/25 History (12 Hour Nasal Relief [place]) congestion clopidogrel 75 mg tablet (Plavix) 75 mg PO DAILY #90 t abs 02/15/25 04/15/25 Rx fluticasone fur. 100 mcg-umeclid 1 inh inhalation Q24H #60 ea 04/04/25 Unknown Rx 62.5 mcg-vilant 25 mcg inhalat.powder (Trelegy Ellipta) resmetirom 60 mg tablet (Rezdiffra) 60 mg PO QDAY #30 tabs 08/09/25 Unknown Rx calcium citrate 250 mg PO QDAY 08/10/25 Unkn own History tramadol 50 mg tablet 50 - 100 mg (1 - 2 x 50 mg) PO Q6H 08/28/25 Unknown Rx PRN pain #30 tabs pantoprazole 40 mg tablet,delayed 40 mg PO BID #90 tab s 09/12/25 Unknown Rx release OXYGEN - Supplemental ([facility] 10/19/25 Unknown History INFORMATIONAL USE ONLY) Allergy/AdvReac Type Severity Reaction Status Date / Time No Known Allergies Allergy Verified 10/19/25 16:07 Family History Mother Breast cancer Surgical History History of amputation of toe History of colonoscopy History of esophagogastroduodenoscopy (EGD) S/P femoral-femoral bypass surgery S/P LEFT ARTERIOGRAM Social History household members: none Smoking Status: Current every day smoker tobacco type: cigarettes alcohol intake: former substance use type: does not use caffeine: Yes (coffee) Type: coffee Review of Systems (Anesthesia) ROS Narrative System reviewed and no additional complaints, except as documented.
[2025-10-23] MEDS: Lactated Ringers 1,000 ML 15 ML IV (07:25)
--- NOTE | 2025-10-23 08:00 | EGD_PTH ---
PATIENT: TONY BRADLEY LOC: EN U#:[id number] AGE/SX: 70/F ROOM: RE10/23/[address]: Dr. Adi Kincaid DO : 1955 BED: DIS: 10/23/2025 SPEC #: [id number] RECD: 10/23/25 12:21 STATUS: ALEXANDRO REMac #: [id number] KIKE: 10/23/25 08:[address]: Adi Kincaid DEPT: SURGICAL PATHOLOGY RECD BY: Nicol Rios ENTERED: 10/23/25 13:17 SP TYPE: EGD BIOPSY TANIA DR: Vincent Ashley, HEALTH CARE COORDINATOR-C Tissues: Duodenum, NOS Procedures: Surgery Specimen Level IV HEADER OPERATION: EGD with biopsies and dilation PRE-OP DIAGNOSIS: Liver fibrosis, esophageal varices, gastric ulcer TISSUE SUBMITTED: A- Duodenum biopsy MICROSCOPIC DIAGNOSIS A. Small intestine, duodenum, biopsy: - Normal villous architecture with Sandie gland hyperplasia. - Negative for increased intraepithelial lymphocytes. MICROSCOPIC DESCRIPTION Slides are reviewed. GROSS DESCRIPTION A. Received in fixative is one container labeled with the patient's name and designated Duodenum biopsy. The specimen consists of two irregular fragments of hemphill tissue, each measuring 0.3 cm. The specimen is totally submitted in one cassette. MT 10/23/2025 CPT:62772
--- NOTE | 2025-10-23 08:56 | OP.EGD_ITS ---
Patient Name: Brenda Macedo Procedure Date: 10/23/2025 8:16 AM Date of : 1955 Age: 70 Procedure: Upper GI endoscopy Indications: Epigastric abdominal pain Providers: Adi Kincaid DO Referring MD: Vincent Ashley Medicines: Monitored Anesthesia Care Patient Profile: This is a 70 year old female. Refer to note in patient chart for documentation of history and physical. Patient has symptoms of dysphagia with both liquids and solids. Complications: No immediate complications. Procedure: Pre-Anesthesia Assessment: - Prior to the procedure, a History and Physical was performed, and patient medications and allergies were reviewed. The patient is competent. The risks and benefits of the procedure and the sedation options and risks were discussed with the patient. All questions were answered and informed consent was obtained. Patient identification and proposed procedure were verified by the physician in the pre-procedure area. Mental Status Examination: alert and oriented. Airway Examination: normal oropharyngeal airway and neck mobility. Respiratory Examination: clear to auscultation. CV Examination: normal. Prophylactic Antibiotics: The patient does not require prophylactic antibiotics. Prior Anticoagulants: The patient has taken no anticoagulant or antiplatelet agents except for NSAID medication. ASA Grade Assessment: III - A patient with severe systemic disease. After reviewing the risks and benefits, the patient was deemed in satisfactory condition to undergo the procedure. The anesthesia plan was to use monitored anesthesia care (MAC). Immediately prior to administration of medications, the patient was re-assessed for adequacy to receive sedatives. The heart rate, respiratory rate, oxygen saturations, blood pressure, adequacy of pulmonary ventilation, and response to care were monitored throughout the procedure. The physical status of the patient was re-assessed after the procedure. After obtaining informed consent, the endoscope was passed under direct vision. Throughout the procedure, the patient's blood pressure, pulse, and oxygen saturations were monitored continuously. The Endoscope was introduced through the mouth, and advanced to the third part of the duodenum. Small bowel enteroscopy was deemed necessary. The upper GI endoscopy was accomplished without difficulty. The patient tolerated the procedure well. Scope In: 8:29:30 AM Scope Out: 8:33:49 AM Total Procedure Duration Time 0 hours 4 minutes 19 seconds Findings: Abnormal motility was noted in the esophagus. The cricopharyngeus was abnormal. There are extra peristaltic waves in the esophageal body. The distal esophagus/lower esophageal sphincter is spastic, but gives up passage to the endoscope. A guidewire was placed and the scope was withdrawn. Dilation was performed with a Savary dilator with no resistance at 57 Fr. The dilation site was examined and showed. Estimated blood loss was minimal. [Site] was. Patchy mildly erythematous mucosa without active bleeding and with no stigmata of bleeding was found in the entire duodenum. Biopsies were taken with a cold forceps for histology. Verification of patient identification for the specimen was done. Estimated blood loss was minimal. Impression: - Abnormal esophageal motility. Dilated. - Normal stomach. - Erythematous duodenopathy. Biopsied. Recommendation: - Discharge patient to home. - Resume previous diet. - Continue present medications. - Await pathology results. Procedure Code(s): --- Professional --- 54815, Esophagogastroduodenoscopy, flexible, transoral; with insertion of guide wire followed by passage of dilator(s) through esophagus over guide wire 75733, 59,51, Small intestinal endoscopy, enteroscopy beyond second portion of duodenum, not including ileum; with biopsy, single or multiple CPT copyright 2021 [employer]. All rights reserved. The codes documented in this report are preliminary and upon him coder review may be revised to meet current compliance requirements. Adi Kincaid DO 10/23/2025 8:56:38 AM This report has been signed electronically. Number of Addenda: 0 Note Initiated On: 10/23/2025 8:16 AM
--- NOTE | 2025-10-23 08:57 | OP.PROVAT_ITS ---
10/23/2025 Vincent Ashley Re : Upper GI endoscopy procedure for Brenda Macedo Dear Dion This procedure was performed on Thursday, October 23, 2025. My impressions and recommendations are as follows: Impressions : - Abnormal esophageal motility. Dilated. - Normal stomach. - Erythematous duodenopathy. Biopsied. Recommendations : - Discharge patient to home. - Resume previous diet. - Continue present medications. - Await pathology results. My findings are described in the full procedure note, which is enclosed. If I can be of further assistance, please feel free to contact me at . Sincerely, Adi Kincaid, 10/23/2025 8:56:38 AM This report has been signed electronically.
--- NOTE | 2025-10-23 08:58 | PCM.POST.ANE ---
Anesthesia: Postop Eval I Current Vital Signs Temperature: 97.7 F Pulse Rate: 107 Blood Pressure: 122/69 Respiratory Rate: 18 Pulse Ox: 87 Oxygen Delivery Method: Nasal Cannula Oxygen Flow Rate (L/min): 5 Assessment Airway patent: Yes Spontaneous unlabored respirations: Yes Mental status: Awake and Calm nausea: No Vomiting: No Anesthesia Complication: Yes Anesthesia Complication Comment:: O2 desat d/t upper airway obstruction masked by scope, case completed an dscope removed, bag mask vent, notified, OA, then nasal airway placed, O2 sat returned >90%, transport to PACU Fluid Hydration Crystalloid volume administer (ml): 500 Total IV fluid infused: 500 Progress Note Anesthesia document: Postop Eval 1 completed: Yes
--- NOTE | 2025-10-23 09:06 | PCM.POSTANE2 ---
Anesthesia Postop Eval I Sum Postop Eval Completion status Anesthesia document: Postop Eval 1 completed: Yes Anesthesia Postop Eval I Summary Anesthesia Postop Eval I Summary: Anesthesia Postop Eval I: Assessment Summary Airway patent Yes 10/23/25 09:00 [email or web address] Spontaneous unlabored Yes 10/23/25 09:00 [email or web address] respirations Mental status Awake,Calm 10/23/25 09:00 [email or web address] nausea No 10/23/25 09:00 [email or web address] Vomiting No 10/23/25 09:00 [email or web address] Anesthesia Postop Eval I: Fluid Summary Crystalloid volume administer 500 10/23/25 09:00 [email or web address] (ml) Colloids volume administered ( ml) Blood Product volume administered (ml) Total IV fluid infused 500 10/23/25 09:00 [email or web address] Anesthesia Postop Eval I: Summary Notes Anesthesia Complication Yes 10/23/25 09:00 [email or web address] Anesthesia Complication O2 desat d/t upper 10/23/25 09:00 [email or web address] Comment: airway obstruction masked by scope, case completed an dscope removed, bag mask vent, notified, OA, then nasal airway placed, O2 sat returned >90%, transport to PACU Post-operative progress note Anesthesia: Postop Eval II Evaluation Mental status: Awake Pain Level: 0 nausea: No Vomiting: No Progress Note Post-operative progress note: Patient with COPD. requiring some increase O2. Will give duoneb due to ronchi in lungs. Complications Anesthesia Complication: No
== END 2025-10-23 09:41 | disposition home or self-care (01) ==
LOC: EN 06:53 → AC 06:55
PROVIDERS: PCP Nurse Practitioner Family; Referring Provider Nurse Practitioner Family; Visit Provider Internal Medicine Gastroenterology
PROC: 0DJ08ZZ Inspection of Upper Intestinal Tract, Via Natural or Artificial Opening Endoscopic (ICD-10-PCS; CPT 43235; principal; 2025-10-23 07:55)
DX: K22.4 Dyskinesia of esophagus (principal); I85.00 Esophageal varices without bleeding; J44.9 Chronic obstructive pulmonary disease, unspecified; F17.210 Nicotine dependence, cigarettes, uncomplicated; K25.9 Gastric ulcer, unspecified as acute or chronic, without hemorrhage or perforation; E78.5 Hyperlipidemia, unspecified; K74.00 Hepatic fibrosis, unspecified; I10 Essential (primary) hypertension; D50.9 Iron deficiency anemia, unspecified; K21.9 Gastro-esophageal reflux disease without esophagitis
CPT/HCPCS: 43248; 88305; C1769; J2405

== ENCOUNTER 2025-10-24 08:09 | Inpatient (IN) | payer MEDICARE, SELFPAY ==
[2025-10-24] VITALS (15 sets, daily range): BP systolic 85–147; BP diastolic 60–115; PULSE 88–115; RESP 12–27; TEMP 36.6–37.6; O2SAT 91–99; BMI 34.7; BMI 33.7
--- NOTE | 2025-10-24 08:44 | EKG12_ITS ---
Test Reason : SOB/CONFUSION Blood Pressure : */* mmHG Vent. Rate : 112 BPM Atrial Rate : 112 BPM P-R Int : 136 ms QRS Dur : 74 ms QT Int : 324 ms P-R-T Axes : 48 18 70 degrees QTcB Int : 442 ms Sinus tachycardia Otherwise normal ECG Confirmed by ARTHUR SALEH, ARABELLA ([id number]), make up editor TONIA ODELL ([id number]) on 10/30/2025 6:17:20 AM Referred By: Confirmed By: ARABELLA GIBSON MD
[2025-10-24 09:14] LABS: Partial Thromboplast Time 25.5 Seconds (24.1-36.2); Prothrombin Time (Protime)PT. 14.2 SECONDS (11.7-14.9)
[2025-10-24] MEDS: 0.9% Normal Saline (1000mL) 1,000 ML 999 ML IV (09:21)
--- NOTE | 2025-10-24 09:24 | EX.ED.DYSGE1 ---
HPI History of Present Illness Chief Complaint: Confusion Informant: patient, family and EMS Narrative Narrative: 70-year-old female was found confused and hypoxic this morning by family. She they state that she typically wears oxygen at night only. They state yesterday she underwent an EGD. They noted that her pulse ox this morning was in the 50s. They checked to see if the oxygen was working and was able to get her up into the 70s. She was noted to have a temperature of 100.4 by EMS 99.6 here in the emergency department. Patient states her tongue does not feel swollen. She notes a cough. She states she has thick dried secretions in her mouth. Family states that her speech is abnormal possibly due to the secretions. She notes her legs usually have swelling and does not feel that they are changed. She denies any pain or headache. [facility] Medical History Excessive bleeding Gastric reflux On home oxygen therapy Chronic cough Wears dentures Post-menopausal Cancer Low iron History of ulceration Smoker COPD (chronic obstructive pulmonary disease) History of echocardiogram Encounter for screening for malignant neoplasm of lung Amputated toe of left foot Vitamin D deficiency Hyperlipidemia Hypertension COPD with asthma Hypomagnesemia Hypocalcemia Hypokalemia Anticoagulant long-term use AVM (arteriovenous malformation) Colitis Transfusion of blood during current hospitalisation Antiplatelet or antithrombotic long-term use Iron (Fe) deficiency anemia 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, left leg Carotid stenosis, bilateral Tobacco abuse Peripheral arterial occlusive disease Cervical cancer PVD (peripheral vascular disease) Arthritis Medical History unable to obtain Home Medications ?Medication ?Instructions ?Recorded ?Last Taken ?Type albuterol sulfate 90 mcg/actuation 2 puff inhalation Q6H PRN 01/08/24 01/03/25 History aerosol inhaler shortness of breath or wheezing amlodipine 5 mg tablet 5 mg PO 1600 blood pressure 01/08/24 10/23/25 History rosuvastatin 10 mg tablet 10 mg PO DAILY cholesterol 01/08/24 10/23/25 History cholecalciferol (vitamin D3) 1,250 1,250 mcg PO QMONTH vitamin 05/03/24 10/19/25 History mcg (50,000 unit) capsule oxymetazoline 0.05 % nasal spray 2 spray intranasal BID PRN nasal 05/18/24 01/03/25 History (12 Hour Nasal Relief Earth) congestion clopidogrel 75 mg tablet (Plavix) 75 mg PO DAILY #90 tabs 02/15/25 10/20/25 Rx fluticasone fur. 100 mcg-umeclid 1 inh inhalation Q24H #60 ea 04/04/25 10/23/25 Rx 62.5 mcg-vilant 25 mcg inhalat.powder (Trelegy Ellipta) resmetirom 60 mg tablet (Rezdiffra) 60 mg PO QDAY #30 tabs 08/09/25 10/23/25 Rx calcium citrate 250 mg PO QDAY 08/10/25 10/23/25 History pantoprazole 40 mg tablet,delayed 40 mg PO BID #90 tabs 09/12/25 10/23/25 Rx release OXYGEN - Supplemental ([facility] 2 l continuous inhalation QHS 10/19/25 10/23/25 History INFORMATIONAL USE ONLY) Allergy/AdvReac Type Severity Reaction Status Date / Time No Known Allergies Allergy Verified 10/24/25 08:16 Family History Mother Breast cancer Family History no significant family his Surgical History History of amputation of toe History of colonoscopy History of esophagogastroduodenoscopy (EGD) S/P femoral-femoral bypass surgery S/P LEFT ARTERIOGRAM Surgical History unable to obtain Social History household members: none Smoking Status: Current every day smoker tobacco type: cigarettes alcohol intake: former substance use type: does not use caffeine: Yes (coffee) Type: coffee ROS ROS ED Constitutional Constitutional ED: Reports fever(s); Denies chills or weight loss Eyes Eyes: Denies change in vision or diplopia ENT ENT ED: Denies ear pain, rhinorrhea or sore throat Cardiovascular Cardiovascular: Reports other Details: Bilateral lower extremity swelling ; Denies chest pain, orthopnea, palpitations or racing heartbeat Respiratory/Chest Respiratory/Chest: Reports cough and dyspnea; Denies orthopnea Gastrointestinal Gastrointestinal: Denies abdominal pain, diarrhea, nausea or vomiting Genitourinary Genitourinary ED: Denies dysuria, hematuria or urinary frequency Musculoskeletal Musculoskeletal: Denies arthralgias or myalgias Integumentary Denies abscess or rash Neurologic Neurologic: Reports other Details: Confusion generalized weakness ; Denies headache(s) or paresthesias Psychiatric Psychiatric: Denies anxiety, depression, suicidal ideation or suicidal thoughts Endocrine Endocrinology: Denies polydipsia, polyphagia or polyuria Allergic/Immunologic Allergic/Immunologic ED: Denies mouth swelling, tongue swelling or urticaria EXAM Physical Exam Const Vital Signs: 10/24/25 08:10 10/24/25 08:19 10/24/25 08:20 Temperature 99.6 F H Temperature Source Oral Pulse Rate 113 H 115 H Respiratory Rate 15 27 H Respiratory Pattern Blood Pressure 147/115 H 85/66 L Blood Pressure Mean 125 72 Pulse Ox 91 95 92 Oxygen Delivery Method Nasal Cannula Nasal Cannula Oxygen Flow Rate (L/min) 6 6 Fraction of Inspired Oxygen (FIO2) 10/24/25 08:44 10/24/25 09:17 10/24/25 10:00 Temperature 99.2 F H 97.9 F Temperature Source Temporal Temporal Pulse Rate 110 H 112 H Respiratory Rate 18 21 H Respiratory Pattern Blood Pressure 114/68 134/69 H Blood Pressure Mean 83 90 Pulse Ox 93 94 95 Oxygen Delivery Method Nasal Cannula Nasal Cannula Nasal Cannula Oxygen Flow Rate (L/min) 6 6 6 Fraction of Inspired Oxygen (FIO2) 6 10/24/25 10:37 10/24/25 10:37 10/24/25 11:00 Temperature 98.8 F Temperature Source Temporal Pulse Rate 107 H 106 H 103 H Respiratory Rate 26 H 26 H 24 H Respiratory Pattern Tachypnea Tachypnea Blood Pressure 124/60 H Blood Pressure Mean 81 Pulse Ox 97 98 Oxygen Delivery Method Bi-pap Oxygen Flow Rate (L/min) Fraction of Inspired Oxygen (FIO2) 50 10/24/25 11:48 Temperature 99.7 F H Temperature Source Temporal Pulse Rate 103 H Respiratory Rate 23 H Respiratory Pattern Blood Pressure 125/60 H Blood Pressure Mean 81 Pulse Ox 99 Oxygen Delivery Method Bi-pap Oxygen Flow Rate (L/min) Fraction of Inspired Oxygen (FIO2) Positive well nourished and well developed General Appearance ED: well developed HEENT Reports normocephalic, head/scalp atraumatic and dry mucous membranes HEENT Narrative: Thick dried secretions on tongue and mouth Mouth ED: Yes dry mucous membranes Mouth: dry mucous membranes Eyes PERRL and EOMs intact bilaterally Neck no lymphadenopathy, supple and no JVD Resp Resp Narrative: Slightly tachypneic. Coarse lung sounds bilaterally. Rhonchorous cough. Cardio regular rate, regular rhythm and no murmurs Rate: tachycardic GI normal to inspection, nondistended, normoactive bowel sounds and non-tender Palpation: soft Back/Spine no CVA tenderness and normal ROM Extremity General Extremety ED: Yes edema General Extremity: edema bilateral lower extremity Details: moderate Neuro oriented x3 and CN's II-XII intact bilaterally Sensorium / Orientation: alert Motor Exam: strength 5/5 throughout Psych mental status grossly normal Mood & Affect: Negative for depressed or tearful Skin no rashes or lesions noted and no wounds MDM MDM MDM Narrative Medical decision making narrative: Differential diagnosis includes aspiration and aspiration pneumonia COPD exacerbation hypoxia encephalopathy UTI volume overload CHF acute kidney injury electrolyte abnormality anemia Patient's white count 9.3 hemoglobin 11.5 platelet count of 294. Lactic acid is normal. CMP within normal limits 2 sets of cardiac enzymes are 14 and 15. Urinalysis with no overt infection. She is RSV positive. My independent interpretation of the chest x-ray is possible left lower lobe infiltrate. CTA of the chest is negative. I did note earlier in the patient's course that her CMP with a CO2 of 30. An ABG was ordered which demonstrates a respiratory acidosis with a pH of 7.246 pCO2 of 77 PaO2 of 60.9 and HCO3 of 33.5. Patient was placed on BiPAP. She received a breathing treatment and Solu-Medrol. I believe the patient should be admitted to the hospital for further treatment. Family was updated. History & Record Review Discussion w/independent historian: EMS personnel, Patient and Family Additional record(s) reviewed:: Prior inpatient record, Prior outpatient record, Prior ED visit and Prior labs Lab Data Attestation: I reviewed the patient's lab results. Labs: Laboratory Results - last 24 hr 10/24/25 10/24/25 10/24/25 08:00 08:20 09:00 WBC 9.3 RBC 4.26 Hgb 11.5 L Hct 37.5 MCV 88.0 MCH 27.0 MCHC 30.7 L RDW Std Deviation 50.4 H RDW Coeff of Alfie 15.6 H Plt Count 294 MPV 10.7 Immature Gran % (Auto) 0.500 Neut % (Auto) 76.1 H Lymph % (Auto) 9.7 L Cabell % (Auto) 13.4 H Eos % (Auto) 0.0 Baso % (Auto) 0.3 Absolute Neuts (auto) 7.1 Absolute Lymphs (auto) 0.90 PT 14.2 INR 1.1 APTT 25.5 Sodium 141 Potassium 4.5 Chloride 98 Carbon Dioxide 30.0 Anion Gap 12 BUN 14 Creatinine 0.75 Estim Creat Clear Calc 68.49 Est GFR (MDRD) Non-Af 86 BUN/Creatinine Ratio 18.0 Glucose 98 Lactic Acid < 1.0 Calcium 9.1 Total Bilirubin 0.32 AST 20 ALT 23 Alkaline Phosphatase 80 Troponin T High Sens 14 Troponin T Hi Sens 2 Hr Total Protein 6.9 Albumin 4.0 Globulin 2.9 Albumin/Globulin Ratio 1.4 Urine Color Urine Clarity Urine pH Ur Specific Lackey Urine Protein Urine Glucose (UA) Urine Ketones Urine Occult Blood Urine Nitrite Urine Bilirubin Urine Urobilinogen Ur Leukocyte Esterase Urine RBC Urine WBC Ur Squamous Epith Cells Urine Bacteria Urine Mucus 10/24/25 10/24/25 09:24 10:48 WBC RBC Hgb Hct MCV MCH MCHC RDW Std Deviation RDW Coeff of Alfie Plt Count MPV Immature Gran % (Auto) Neut % (Auto) Lymph % (Auto) Cabell % (Auto) Eos % (Auto) Baso % (Auto) Absolute Neuts (auto) Absolute Lymphs (auto) PT INR APTT Sodium Potassium Chloride Carbon Dioxide Anion Gap BUN Creatinine Estim Creat Clear Calc Est GFR (MDRD) Non-Af BUN/Creatinine Ratio Glucose Lactic Acid Calcium Total Bilirubin AST ALT Alkaline Phosphatase Troponin T High Sens Troponin T Hi Sens 2 Hr 15 H Total Protein Albumin Globulin Albumin/Globulin Ratio Urine Color Yellow Urine Clarity Sl Cldy Urine pH 6.0 Ur Specific Lackey 1.025 Urine Protein 30 H Urine Glucose (UA) NEGATIVE Urine Ketones 5 H Urine Occult Blood 150 H Urine Nitrite Negative Urine Bilirubin Negative Urine Urobilinogen 1 H Ur Leukocyte Esterase Negative Urine RBC 0-5 SEEN Urine WBC 0 SEEN Ur Squamous Epith Cells 5-10 SEEN Urine Bacteria 1+ Urine Mucus 1+ ABG Data ABG results: ABG 10/24/25 10:21 Specimen Type ART Sample Site L Radial pH 7.25 L Bicarbonate Actual 33.5 H Total CO2 36 Base Excess 6 H O2 Saturation 85 L O2 % 6.0 ABG pCO2 77.0 H* ABG pO2 61 L O2 Delivery Device Cannula Vent Mode Not entered Crit Call To/Read Back Yes Blood Gas Notified Whom Blood Gas Notified Time 10:22:44 Radiography Diagnostic Testing: Clinical Impression(s) from Imaging Studies Chest X-Ray 10/24/25 09:45 IMPRESSION: Subsegmental atelectasis or airspace disease left lung base with scant pleural fluid. Mild dysmorphic changes proximal right humerus represent changes from prior fracture. See x-ray September 12, 2025 Reading Location: [id number] Brain CT 10/24/25 10:19 IMPRESSION: Mild degree of cerebral atrophy. Sinusitis as described. Reading Location: [facility] Chest CTA 10/24/25 10:19 IMPRESSION: No evidence of PE through the level of proximal lobar pulmonary artery. No acute pulmonary abnormality. Reading Location: [facility] EKG Initial EKG: Attestation: I personally reviewed and interpreted this EKG as follows: Comments: Sinus tachycardia ventricular rate of 112 bpm. Management Discussion w/another healthcare provider: Hospitalist Critical Care Time Critical Care Time: Yes Critical care time (excluding procedures): 30-74 minutes (35 min), Including time spent:, Discussing w/Patient &/or Family/Transfusion Aide, Discussing w/Consultants, Arranging Admission or Transfer and Performing Direct Patient Care at Bedside Discharge Plan Dx/Rx/DC Orders Clinical Impression: RSV bronchitis, Acute respiratory acidosis, AMS (altered mental status) Disposition Disposition: [facility] Discharge Date/Time: 10/24/25 13:44
[2025-10-24 09:33] LABS: Hematocrit 37.5 % (37-47); Hemoglobin 11.5 g/dL (12.0-15.0); Mean Corpuscular Volume 88.0 fL (81-99); Red Blood Count 4.26 M/mm3 (4.2-5.4); White Blood Count 9.3 K/mm3 (4.4-11.0)
[2025-10-24 09:34] LABS: Immature Granulocytes Count 0.050 X10^3/uL (0.0-0.0); Mean Corp Hgb Conc 30.7 g/dL (32-36); Mean Platelet Vol. 10.7 fl (6.2-12.0); Platelet Count 294 K/mm3 (150-450); RBC Distribution Width CV 15.6 % (11.6-14.6); RBC Distribution Width SD 50.4 fl (35.1-43.9)
[2025-10-24 09:38] LABS: Color, Urine Yellow (Yellow); Glucose, Dipstick NEGATIVE (Normal); Ketone-Dipstick 5 mg/dl (Negative); Leukocyte Esterase-Dipstick Negative /ul (Negative); Nitrite-Dipstick Negative (Negative); Occult Blood-Urine 150 /ul (Negative); Protein-Dipstick 30 mg/dl (Negative); Specific Gravity, Urine 1.025 (1.002-1.030); Urine Bilirubin Dipstick Negative (Negative)
[2025-10-24 09:40] LABS: Mucous, Urine 1+ /hpf (<or=2+); Red Blood Cells-Urine 0-5 SEEN /hpf (0-5); Squamous Epithelial Cells - UA 5-10 SEEN /hpf (5-10)
--- NOTE | 2025-10-24 09:45 | RAD_ITS ---
PROCEDURE: CHEST 1 VIEW (PORTABLE) 10/24/2025 REASON FOR EXAM: COUGH TECHNIQUE: Frontal view of the chest. COMPARISON: August 16, 2024, May 09, 2024 FINDINGS: Hardware: None Heart: Heart size is mildly enlarged. Lungs: Portions of the lung apices are excluded by the patient's mandible. The right lung is clear. Subsegmental atelectasis and scant pleural fluid blunts the left costophrenic sulcus. Bones: Degenerative changes of the thoracic spine. Mild dysmorphic changes proximal right humerus from likely remote fracture. RAD/Chest 1 View (Portable) IMPRESSION: Subsegmental atelectasis or airspace disease left lung base with scant pleural fluid. Mild dysmorphic changes proximal right humerus represent changes from prior fra cture. See x-ray September 12, 2025 Reading Location: [id number]
--- NOTE | 2025-10-24 10:19 | CT_ITS ---
PROCEDURE: BRAIN/HEAD WITHOUT CONTRAST 10/24/2025 REASON FOR EXAM: AMS TECHNIQUE: Procedure Code: CTBR Modality: CT Procedure: BRAIN/HEAD WITHOUT CONTRAST Coronal and Sagittal reconstruction series were provided. One or more dose reduction techniques were used (e.g., Automated exposure control, adjustment of the mA and/or kV according to patient size, use of iterative reconstruction technique. RADIATION DOSE SUMMARY: CTDlvol: 44.99 mGy DLP: 846.73 mGycm COMPARISON: None FINDINGS: Brain: Within normal limits for age CSF Spaces: Mild generalized cerebral atrophy Sinuses/Mastoids: Opacification of the ethmoid sinuses bilaterally. Mucosal thickening of the maxillary sinuses. Small air-fluid level in the right frontal sinus. Small air-fluid levels in the sphenoid sinuses. Bones: Unremarkable CT/Brain/Head without Contrast IMPRESSION: Mild degree of cerebral atrophy. Sinusitis as described. Reading Location: [place] [id number]
--- NOTE | 2025-10-24 10:19 | CT_ITS ---
PROCEDURE: CTA CHEST W/WO CONTRAST 10/24/2025 REASON FOR EXAM: HYPOXIA PE TECHNIQUE: Procedure Code: [id number] Modality: CT Procedure: CTA CHEST W/WO CONTRAST Multiplanar Sagittal and Coronal images were obtained. CONTRAST: Isovue 370 VOLUME: 100 mL One or more dose reduction techniques were used (e.g., Automated exposure control, adjustment of the mA and/or kV according to patient size, use of iterative reconstruction technique). RADIATION DOSE SUMMARY: CTDlvol: 44.99 mGy DLP: 1327.98 mGycm COMPARISON: 08/16/2024 CT chest FINDINGS: Thoracic Aorta: Atherosclerotic plaques. No aneurysm or dissection. Heart: Cardiomegaly. No pericardial effusion. Pulmonary Vessels: No evidence of a filling defect is noted through the level of proximal lobar pulmonary artery. Hardware: None Lymph nodes: No axillary or mediastinal lymphadenopathy. Lungs and Airways: Mild dependent atelectasis. Pleura: No pleural effusion or pneumothorax. Upper Abdomen: No acute abnormality. Bones: Degenerative changes of the thoracic spine. CT/CTA Chest W/WO Contrast IMPRESSION: No evidence of PE through the level of proximal lobar pulmonary artery. No acu te pulmonary abnormality. Reading Location: [facility]
[2025-10-24] MEDS: 0.9% Normal Saline (1000mL) 1,000 ML 150 ML IV (10:21)
[2025-10-24 10:25] LABS: Base Excess 6 mmol/L (-2 to +2); FI02 6.0; PO2 61 mmHG (75-100); SITE L Radial; SO2 85 % (94-98)
[2025-10-24 10:32] LABS: Troponin T High Sensitivity 14 ng/L (<=14)
[2025-10-24 10:33] LABS: AST(SGOT) 20 U/L (<=31); Alanine Aminotransfer ALT/SGPT 23 U/L (<=34); Albumin, Serum 4.0 g/dL (3.4-4.8); Alkaline Phosphatase 80 U/L (35-104); Anion Gap 12 (5-15); BUN 14 mg/dL (4-19); BUN/Creat Ratio 18.0 RATIO (10-20); Calcium,Total 9.1 mg/dL (7.6-11.0); Carbon Dioxide 30.0 mmol/L (21.0-32.0); Chloride 98 mmol/L (98-108); Estimated Creatinine Clearance 68.49 ml/min (50-250); Globulin 2.9 g/dL (2.2-4.2); Glucose 98 mg/dL (70-99); Potassium 4.5 mmol/L (3.3-5.1)
[2025-10-24 11:14] LABS: Troponin T High Sens 2 HR 15 ng/L (<=14)
[2025-10-24 14:06] LABS: Troponin T High Sens 4 HR 15 ng/L (<=14)
--- NOTE | 2025-10-24 14:56 | CASEMGMT ---
Care Management Face to Face with patient and family ?for initial transition planning/care coordination assessment in the ED.? This publications writer introduced self and role at [facility]. Patients sister able to answer assessment questions.? Care providers, pharmacy, and demographics verified. Admitting Diagnosis: ??SOB and confusion Other diagnosis history: ?copd, hyperlipidemia, hypertension, PVD, arthritis PCP: ?[facility] Specialists: ?Akash, pulmonology ; Friend, gastro ; Santosh, vascular?? Preferred Pharmacy:? [facility] Insurance: ?[place] secure Prescription Benefit: ?yes Living Will/HPOA: ?does not have done, would like to complete if able LNOK: ?sister Living Arrangements: ?patient lives at home with son whom she takes care of.? Is independent with ADLs and IADLs?? Transportation: ??sister drives patient to doctors and groceries DME: ?walker, shower chair, bedside commode, Oxygen through [employer]; patient on 2 L at night and PRN during day. HHC: none , sister states they are unable to get HH due to animals in the home, they have 3 dogs and they do not allow strangers in the house.? SNF/Rehab: ?none Community Resources: ?none Behavioral Health History: ?denies Patient goals: Patients sister states that patient would like to return home when able? Disposition Plan: admission to acute; RN CM/SW to follow for discharge planning needs that may arise. Edyta Medrano, GEOTHERMAL OPERATIONS ENGINEER, TIRE MAN
[2025-10-24] MEDS: Lactated Ringers 1,000 ML 75 ML IV (15:34)
[2025-10-24] MEDS: Budesonide Respules 0.5 MG/2 ML AMPUL.NEB. INHALATION (20:20)
--- NOTE | 2025-10-24 20:29 | PCM.HP.STD ---
HPI - General General Date of Admission: 10/24/25 Date of Service: 10/24/25 Chief Complaint: Altered mental status HPI Narrative TONY BRADLEY, is a 70 F who presents to the emergency room today at [facility] after being brought in by squad, patient was found confused and hypoxic this morning by her family, family stated that the patient wears oxygen at night only at 2 L, they stated that the patient underwent an EGD yesterday and they noted that her pulse ox this morning was in the 50s. Workup in the emergency room included a CBC that was unremarkable except for hemoglobin of 11.5, patient's chemistry profile was unremarkable. Urinalysis showed +1 bacteria but there were 5-10 squamous cells noted in the UA. Arterial blood gas was performed, pH was 7.25, pCO2 was 77, pO2 was 61 on 6 L nasal cannula. Patient was transitioned over to BiPAP in the emergency room. Chest CTA showed no evidence of PE and no acute pulmonary abnormality, brain CT showed mild degree of cerebral atrophy and evidence of sinusitis in the ethmoid sinuses. Patient's SARS influenza and RSV PCR was positive for RSV. Patient will be admitted to PCU for further care [facility] Medical History Excessive bleeding Gastric reflux On home oxygen therapy Chronic cough Wears dentures Post-menopausal Cancer Low iron History of ulceration Smoker COPD (chronic obstructive pulmonary disease) History of echocardiogram Encounter for screening for malignant neoplasm of lung Amputated toe of left foot Vitamin D deficiency Hyperlipidemia Hypertension COPD with asthma Hypomagnesemia Hypocalcemia Hypokalemia Anticoagulant long-term use AVM (arteriovenous malformation) Colitis Transfusion of blood during current hospitalisation Antiplatelet or antithrombotic long-term use Iron (Fe) deficiency anemia Atherosclerosis of [place] arteries of extremities with gangrene, left leg Carotid stenosis, bilateral Tobacco abuse Peripheral arterial occlusive disease Cervical cancer PVD (peripheral vascular disease) Arthritis Medical History unable to obtain Home Medications ?Medication ?Instructions ?Recorded ?Last Taken ?Type albuterol sulfate 90 mcg/actuation 2 puff inhalation Q6H PRN 01/08/24 01/03/25 History aerosol inhaler shortness of breath or wheezing amlodipine 5 mg tablet 5 mg PO 1600 blood pressure 01/08/24 10/23/25 History rosuvastatin 10 mg tablet 10 mg PO DAILY cholesterol 01/08/24 10/23/25 History cholecalciferol (vitamin D3) 1,250 1,250 mcg PO QMONTH vitamin 05/03/24 10/19/25 History mcg (50,000 unit) capsule oxymetazoline 0.05 % nasal spray 2 spray intranasal BID PRN nasal 05/18/24 01/03/25 History (12 Hour Nasal Relief [place]) congestion clopidogrel 75 mg tablet (Plavix) 75 mg PO DAILY #90 tabs 02/15/25 10/20/25 Rx fluticasone fur. 100 mcg-umeclid 1 inh inhalation Q24H #60 ea 04/04/25 10/23/25 Rx 62.5 mcg-vilant 25 mcg inhalat.powder (Trelegy Ellipta) resmetirom 60 mg tablet (Rezdiffra) 60 mg PO QDAY #30 tabs 08/09/25 10/23/25 Rx calcium citrate 250 mg PO QDAY 08/10/25 10/23/25 History pantoprazole 40 mg tablet,delayed 40 mg PO BID #90 tabs 09/12/25 10/23/25 Rx release OXYGEN - Supplemental ([facility] 2 l continuous inhalation QHS 10/19/25 10/23/25 History INFORMATIONAL USE ONLY) Allergy/AdvReac Type Severity Reaction Status Date / Time No Known Allergies Allergy Verified 10/24/25 08:16 Family History Mother Breast cancer Family History no significant family his Surgical History History of amputation of toe History of colonoscopy History of esophagogastroduodenoscopy (EGD) S/P femoral-femoral bypass surgery S/P LEFT ARTERIOGRAM Surgical History unable to obtain Social History household members: none Smoking Status: Current every day smoker tobacco type: cigarettes alcohol intake: former substance use type: does not use caffeine: Yes (coffee) Type: coffee ROS Constitutional Constitutional: Denies anorexia, change in weight, fever(s), night sweats or weakness Eyes Eyes: Denies blurry vision, change in vision, discharge from eye(s) or eye pain Cardiovascular Cardiovascular: Reports dyspnea on exertion; Denies chest pain, claudication, edema or palpitations Respiratory/Chest Respiratory/Chest: Reports shortness of breath at rest and shortness of breath with exertion; Denies cough or hemoptysis Gastrointestinal Gastrointestinal: Denies abdominal pain, constipation, diarrhea, hematemesis, hematochezia, melena, nausea or vomiting Genitourinary Genitourinary: Denies dysuria, hematuria, urinary frequency, urinary hesitancy, urinary incontinence or urinary urgency Musculoskeletal Musculoskeletal: Denies back pain, joint pain, joint stiffness, joint swelling, myalgias or neck pain Neurologic Neurologic: Reports confusion; Denies abnormal gait, abnormal speech, dizziness, focal weakness, headache(s), loss of vision, numbness, other visual disturbances, paresthesias, syncope or tingling Psychiatric Psychiatric: Denies anxiety, cognitive impairment, depression, irritability, mood swings or suicidal ideation Endocrine Endocrinology: Denies change in body appearance, cold intolerance, excessive sweating, heat intolerance, polydipsia or polyuria Hematologic/Lymphatic Hematologic/Lymphatic: Denies none, anemia, easy bleeding, easy bruising or lymphadenopathy Allergic/Immunologic Allergic/Immunologic: Denies rhinitis, urticaria, eczemia or asthma Vital Signs Vital Signs Vital Signs: 10/24/25 08:10 10/24/25 08:19 10/24/25 08:20 Temperature 99.6 F H Temperature Source Oral Pulse Rate 113 H 115 H Respiratory Rate 15 27 H Respiratory Effort Respiratory Depth Respiratory Pattern Blood Pressure 147/115 H 85/66 L Blood Pressure Mean 125 72 Pulse Ox 91 95 92 Oxygen Delivery Method Nasal Cannula Nasal Cannula Oxygen Flow Rate (L/min) 6 6 Fraction of Inspired Oxygen (FIO2) 10/24/25 08:44 10/24/25 09:17 10/24/25 10:00 Temperature 99.2 F H 97.9 F Temperature Source Temporal Temporal Pulse Rate 110 H 112 H Respiratory Rate 18 21 H Respiratory Effort Respiratory Depth Respiratory Pattern Blood Pressure 114/68 134/69 H Blood Pressure Mean 83 90 Pulse Ox 93 94 95 Oxygen Delivery Method Nasal Cannula Nasal Cannula Nasal Cannula Oxygen Flow Rate (L/min) 6 6 6 Fraction of Inspired Oxygen (FIO2) 6 10/24/25 10:37 10/24/25 10:37 10/24/25 11:00 Temperature 98.8 F Temperature Source Temporal Pulse Rate 107 H 106 H 103 H Respiratory Rate 26 H 26 H 24 H Respiratory Effort Respiratory Depth Respiratory Pattern Tachypnea Tachypnea Blood Pressure 124/60 H Blood Pressure Mean 81 Pulse Ox 97 98 Oxygen Delivery Method Bi-pap Oxygen Flow Rate (L/min) Fraction of Inspired Oxygen (FIO2) 50 10/24/25 11:48 10/24/25 12:27 10/24/25 14:13 Temperature 99.7 F H 99.7 F H 99.5 F H Temperature Source Temporal Temporal Pulse Rate 103 H 103 H 104 H Respiratory Rate 23 H 23 H 26 H Respiratory Effort Respiratory Depth Respiratory Pattern Blood Pressure 125/60 H 125/60 H 110/69 Blood Pressure Mean 81 81 82 Pulse Ox 99 99 92 Oxygen Delivery Method Bi-pap Nasal Cannula Oxygen Flow Rate (L/min) 6 Fraction of Inspired Oxygen (FIO2) 10/24/25 15:16 10/24/25 15:44 10/24/25 18:07 Temperature 98.9 F Temperature Source Temporal Pulse Rate 90 Respiratory Rate 19 H Respiratory Effort Short of Breath Labored Accessory Muscle Use Respiratory Depth Deep Respiratory Pattern Tachypnea Blood Pressure 109/67 Blood Pressure Mean 81 Pulse Ox 96 Oxygen Delivery Method Bi-pap Nasal Cannula Bi-pap Oxygen Flow Rate (L/min) 6 Fraction of Inspired Oxygen (FIO2) 50 50 Weight Weight: 83.8 kg Body Mass Index (BMI) 33.7 Physical Exam Const alert, no apparent distress and healthy appearing Constitutional Narrative: Patient is lethargic but does respond to painful stimuli and verbal cues General Appearance: cooperative, well kempt and well developed Orientation / Consciousness: awake, oriented to person and oriented to place HEENT normocephalic, head/scalp atraumatic, hearing grossly normal bilaterally and moist oral mucous membranes Eyes PERRL, EOMs intact bilaterally and conjunctivae normal Neck supple, no JVD, thyroid normal and no carotid bruits General: trachea midline Resp normal respiratory effort, no retractions and no use of accessory muscles Resp Narrative: Breath sounds are diminished bilaterally, patient is on BiPAP Auscultation: Negative for rales, rhonchi or wheezes Cardio regular rate, regular rhythm, S1 normal heart sound, S2 normal heart sound, no murmurs, no rub and no gallops GI normal to inspection, nondistended, normoactive bowel sounds, soft to palpation, non-tender and non-distended Extremity no clubbing, cyanosis or edema Skin no rashes or lesions noted General Skin Exam: no breakdown Neuro oriented x3, CN's II-XII intact bilaterally, no focal motor deficits and no sensory deficits noted Sensorium / Orientation: awake and alert Speech: speech normal Psych affect normal Results Lab / Micro Data 10/24/25 08:20 10/24/25 08:00 Labs: Laboratory Results - last 24 hr 10/24/25 08:00: Sodium 141, Potassium 4.5, Chloride 98, Carbon Dioxide 30.0, Anion Gap 12, BUN 14, Creatinine 0.75, Estim Creat Clear Calc 68.49, Est GFR (MDRD) Non-Af 86, BUN/Creatinine Ratio 18.0, Glucose 98, Calcium 9.1, Total Bilirubin 0.32, AST 20, ALT 23, Alkaline Phosphatase 80, Troponin T High Sens 14, Total Protein 6.9, Albumin 4.0, Globulin 2.9, Albumin/Globulin Ratio 1.4 10/24/25 08:20: WBC 9.3, RBC 4.26, Hgb 11.5 L, Hct 37.5, MCV 88.0, MCH 27.0, MCHC 30.7 L, RDW Std Deviation 50.4 H, RDW Coeff of Alfie 15.6 H, Plt Count 294, MPV 10.7, Immature Gran % (Auto) 0.500, Neut % (Auto) 76.1 H, Lymph % (Auto) 9.7 L, [place] % (Auto) 13.4 H, Eos % (Auto) 0.0, Baso % (Auto) 0.3, Absolute Neuts (auto) 7.1, Absolute Lymphs (auto) 0.90, PT 14.2, INR 1.1, APTT 25.5 10/24/25 09:00: Lactic Acid < 1.0 10/24/25 09:24: Urine Color Yellow, Urine Clarity Sl Cldy, Urine pH 6.0, Ur Specific [place] 1.025, Urine Protein 30 H, Urine Glucose (UA) NEGATIVE, Urine Ketones 5 H, Urine Occult Blood 150 H, Urine Nitrite Negative, Urine Bilirubin Negative, Urine Urobilinogen 1 H, Ur Leukocyte Esterase Negative, Urine RBC 0-5 SEEN, Urine WBC 0 SEEN, Ur Squamous Epith Cells 5-10 SEEN, Urine Bacteria 1+, Urine Mucus 1+ 10/24/25 10:48: Troponin T Hi Sens 2 Hr 15 H 10/24/25 13:35: Troponin T Hi Sens 4Hr 15 H Micro: Microbiology 10/24/25 09:00 Mucosa - Nose SARS-CoV-2, Influenza & RSV (PCR) - Final RSV ABG Data ABG results: ABG 10/24/25 10:21 Specimen Type ART Sample Site L Radial pH 7.25 L Bicarbonate Actual 33.5 H Total CO2 36 Base Excess 6 H O2 Saturation 85 L O2 % 6.0 ABG pCO2 77.0 H* ABG pO2 61 L O2 Delivery Device Cannula Vent Mode Not entered Crit Call To/Read Back Yes Blood Gas Notified Whom dh Blood Gas Notified Time 10:22:44 Imaging Radiology Impression Chest X-Ray 10/24/25 09:45 IMPRESSION: Subsegmental atelectasis or airspace disease left lung base with scant pleural fluid. Mild dysmorphic changes proximal right humerus represent changes from prior fracture. See x-ray September 12, 2025 Reading Location: [id number] Brain CT 10/24/25 10:19 IMPRESSION: Mild degree of cerebral atrophy. Sinusitis as described. Reading Location: [facility] Chest CTA 10/24/25 10:19 IMPRESSION: No evidence of PE through the level of proximal lobar pulmonary artery. No acute pulmonary abnormality. Reading Location: [facility] Assessment & Plan Assessment/Plan (1) Hypoxemia: PLAN: Plan 1. Acute on chronic combined respiratory failure secondary to COPD exacerbation from RSV tracheobronchitis-patient will be admitted to PCU and receive aerosol treatments, Pulmicort aerosols will also be given, BiPAP will be monitored #2 RSV tracheobronchitis-again patient will receive aerosol treatments and Pulmicort aerosols #3 Central hypertension-patient is on amlodipine #4 MASLD-I will hold the patient's home medication for this, I do not believe she needs it while she is in the hospital. #5 hyperlipidemia-patient is on a statin Total clinical time spent by myself addressing the patient's medical issues, reviewing all her data, and collaborating with patient's care team: 75 minutes Charges/Coding Visit Charges Inpatient E&M: 96787 Init Hosp L3
[2025-10-24] MEDS: Heparin Injection (Vial) 5,000 UNIT/ML VIAL 5000 UNIT SC (22:08)
[2025-10-25] VITALS (20 sets, daily range): BP systolic 105–135; BP diastolic 64–72; PULSE 87–114; RESP 12–24; TEMP 36.8–37; O2SAT 87–100
--- NOTE | 2025-10-25 05:15 | PCM.HOSP.N ---
Hospitalist Note Routine ABG obtained on patient, similar to prior, had BIPAP in place, discussed with RT and will alter settings. Will leave repeat ABG considerations to Dr. Kitchen.
[2025-10-25 05:18] LABS: Allen Test Positive; Base Excess 7 mmol/L (-2 to +2); FI02 40.0; PO2 78 mmHG (75-100); RR 12; SITE L Radial; SO2 93 % (94-98)
--- NOTE | 2025-10-25 05:30 | CPS ---
Increased IPAP to [address] Burk.
[2025-10-25] MEDS: Lactated Ringers 1,000 ML 75 ML IV (05:52)
[2025-10-25] MEDS: Budesonide Respules 0.5 MG/2 ML AMPUL.NEB. INHALATION ×2 (07:09→20:00)
[2025-10-25] MEDS: Heparin Injection (Vial) 5,000 UNIT/ML VIAL 5000 UNIT SC ×2 (08:22→21:22)
--- NOTE | 2025-10-25 08:32 | EX.PCM.CONCC ---
Assessment & Plan Assessment/Plan (1) Acute respiratory acidosis: PLAN: Plan RECOMMENDATIONS: 1. Continue PAP therapy throughout the day as needed and nightly. 2. Okay to transition to nasal cannula oxygen with a goal to maintain saturations 88 to 92%. 3. Okay to advance diet as tolerated. 4. Continue scheduled bronchodilators and steroids. 5. Continue appropriate DVT prophylaxis. 6. Encourage incentive spirometer use and mobilize patient as tolerated. IMPRESSIONS: 1. Acute combined respiratory failure Most likely secondary to COPD with exacerbation related to RSV infection. There is no evidence of superimposed pneumonia/consolidation on CT imaging. Pulmonary embolism was ruled out. The patient does have known advanced age COPD on a triple therapy inhaler regimen on an outpatient basis. For now, I agree with continuing noninvasive positive pressure ventilatory support as needed throughout the day and nightly, as tolerated by the patient. She is currently mentating appropriately. The patient will be maintained on scheduled bronchodilators and steroids. 2. History of chronic tobacco dependency/nocturnal hypoxemia Complicates care, management, recovery and prognosis. Continue supportive measures as noted above. This note was generated with [email or web address] dictation software. It may contain incorrect words, spelling, and punctuation that were not noted in checking the note before signing. HPI Consult Data Date of Consult: 10/25/25 HPI Narrative Reason for Consultation: COPD exacerbation HPI Narrative: The patient is a 70-year-old female, with a history as outlined below, who presented to the emergency department via EMS on October 24 with altered mental status. The patient has a known history of Gold stage III COPD on a triple therapy inhaler regimen, chronic nicotine dependency and nocturnal hypoxemia. She is currently followed in the pulmonary medicine clinic, having last been seen in May 2025. On presentation to the emergency department, the patient was noted to have a low-grade temperature with mild tachycardia. She was otherwise hemodynamically stable. Laboratory evaluation revealed a normal white blood cell count. Coagulation profile was within normal limits. Arterial blood gas was notable for a pH of 7.25 with a pCO2 of 77 and pO2 of 61. Chemistry profile was unremarkable. Lactate was normal. Urine analysis was unremarkable. RSV PCR was positive. Blood and urine cultures were collected. Head CT revealed cerebral atrophy and sinusitis. CTA chest showed no evidence for pulmonary embolism. There is no discernible infiltrate or consolidation noted. The patient was placed on noninvasive positive pressure ventilatory support and initiated on scheduled bronchodilators and steroids. She was admitted to the progressive care unit for further management. [facility]LY [facility], [facility] Medical History Excessive bleeding Gastric reflux On home oxygen therapy Chronic cough Wears dentures Post-menopausal Cancer Low iron History of ulceration Smoker COPD (chronic obstructive pulmonary disease) History of echocardiogram Encounter for screening for malignant neoplasm of lung Amputated toe of left foot Vitamin D deficiency Hyperlipidemia Hypertension COPD with asthma Hypomagnesemia Hypocalcemia Hypokalemia Anticoagulant long-term use AVM (arteriovenous malformation) Colitis Transfusion of blood during current hospitalisation Antiplatelet or antithrombotic long-term use Iron (Fe) deficiency anemia Atherosclerosis of [place] arteries of extremities with gangrene, left leg Carotid stenosis, bilateral Tobacco abuse Peripheral arterial occlusive disease Cervical cancer PVD (peripheral vascular disease) Arthritis Medical History unable to obtain Home Medications ?Medication ?Instructions ?Recorded ?Last Taken ?Type albuterol sulfate 90 mcg/actuation 2 puff inhalation Q6H PRN 01/08/24 01/03/25 History aerosol inhaler shortness of breath or wheezing amlodipine 5 mg tablet 5 mg PO 1600 blood pressure 01/08/24 10/23/25 History rosuvastatin 10 mg tablet 10 mg PO DAILY cholesterol 01/08/24 10/23/25 History cholecalciferol (vitamin D3) 1,250 1,250 mcg PO QMONTH vitamin 05/03/24 10/19/25 History mcg (50,000 unit) capsule oxymetazoline 0.05 % nasal spray 2 spray intranasal BID PRN nasal 05/18/24 01/03/25 History (12 Hour Nasal Relief [place]) congestion clopidogrel 75 mg tablet (Plavix) 75 mg PO DAILY #90 tabs 02/15/25 10/20/25 Rx fluticasone fur. 100 mcg-umeclid 1 inh inhalation Q24H #60 ea 04/04/25 10/23/25 Rx 62.5 mcg-vilant 25 mcg inhalat.powder (Trelegy Ellipta) resmetirom 60 mg tablet (Rezdiffra) 60 mg PO QDAY #30 tabs 08/09/25 10/23/25 Rx calcium citrate 250 mg PO QDAY 08/10/25 10/23/25 History pantoprazole 40 mg tablet,delayed 40 mg PO BID #90 tabs 09/12/25 10/23/25 Rx release OXYGEN - Supplemental ([facility] 2 l continuous inhalation QHS 10/19/25 10/23/25 History INFORMATIONAL USE ONLY) Allergy/AdvReac Type Severity Reaction Status Date / Time No Known Allergies Allergy Verified 10/24/25 08:16 Family History Mother Breast cancer Family History no significant family his Surgical History History of amputation of toe History of colonoscopy History of esophagogastroduodenoscopy (EGD) S/P femoral-femoral bypass surgery S/P LEFT ARTERIOGRAM Surgical History unable to obtain Social History household members: none Smoking Status: Current every day smoker tobacco type: cigarettes alcohol intake: former substance use type: does not use caffeine: Yes (coffee) Type: coffee ROS ROS Narrative 10 systems were reviewed with pertinent positives as noted in the HPI above. Physical Exam Const alert and no apparent distress Constitutional Narrative: Obese. Resting comfortably in bed. Nasal cannula in place. General Appearance: cooperative HEENT normocephalic and head/scalp atraumatic Eyes PERRL, EOMs intact bilaterally and conjunctivae normal Neck supple General: trachea midline Chest inspection of chest normal Resp normal respiratory effort and no use of accessory muscles Effort and Inspection: actively coughing Auscultation: wheezes and diminished lung sounds Cardio regular rate and regular rhythm GI normal to inspection, nondistended, normoactive bowel sounds Extremity no clubbing, cyanosis or edema Skin no rashes or lesions noted Neuro CN's II-XII intact bilaterally, moves all extremities and no focal motor deficits Psych cooperative and affect normal Lab / Micro Data 10/24/25 08:20 10/24/25 08:00 Labs: Laboratory Results - last 24 hr 10/24/25 08:00: Sodium 141, Potassium 4.5, Chloride 98, Carbon Dioxide 30.0, Anion Gap 12, BUN 14, Creatinine 0.75, Estim Creat Clear Calc 68.49, Est GFR (MDRD) Non-Af 86, BUN/Creatinine Ratio 18.0, Glucose 98, Calcium 9.1, Total Bilirubin 0.32, AST 20, ALT 23, Alkaline Phosphatase 80, Troponin T High Sens 14, Total Protein 6.9, Albumin 4.0, Globulin 2.9, Albumin/Globulin Ratio 1.4 10/24/25 08:20: WBC 9.3, RBC 4.26, Hgb 11.5 L, Hct 37.5, MCV 88.0, MCH 27.0, MCHC 30.7 L, RDW Std Deviation 50.4 H, RDW Coeff of Alfie 15.6 H, Plt Count 294, MPV 10.7, Immature Gran % (Auto) 0.500, Neut % (Auto) 76.1 H, Lymph % (Auto) 9.7 L, [place] % (Auto) 13.4 H, Eos % (Auto) 0.0, Baso % (Auto) 0.3, Absolute Neuts (auto) 7.1, Absolute Lymphs (auto) 0.90, PT 14.2, INR 1.1, APTT 25.5 10/24/25 09:00: Lactic Acid < 1.0 10/24/25 09:24: Urine Color Yellow, Urine Clarity Sl Cldy, Urine pH 6.0, Ur Specific [place] 1.025, Urine Protein 30 H, Urine Glucose (UA) NEGATIVE, Urine Ketones 5 H, Urine Occult Blood 150 H, Urine Nitrite Negative, Urine Bilirubin Negative, Urine Urobilinogen 1 H, Ur Leukocyte Esterase Negative, Urine RBC 0-5 SEEN, Urine WBC 0 SEEN, Ur Squamous Epith Cells 5-10 SEEN, Urine Bacteria 1+, Urine Mucus 1+ 10/24/25 10:48: Troponin T Hi Sens 2 Hr 15 H 10/24/25 13:35: Troponin T Hi Sens 4Hr 15 H Micro: Microbiology 10/24/25 09:00 Mucosa - Nose SARS-CoV-2, Influenza & RSV (PCR) - Final RSV ABG Data ABG results: ABG 10/24/25 10/25/25 10:21 05:11 Specimen Type ART ART Sample Site L Radial L Radial pH 7.25 L 7.27 L Bicarbonate Actual 33.5 H 33.8 H Total CO2 36 36 Base Excess 6 H 7 H O2 Saturation 85 L 93 L O2 % 6.0 40.0 ABG pCO2 77.0 H* 73.2 H* ABG pO2 61 L 78 Rubio Test Positive Respiration Rate 12 O2 Delivery Device Cannula BiPAP Vent Mode Not entered Not entered Crit Call To/Read Back Yes Yes Blood Gas Notified Whom veronica Garber White Blood Gas Notified Time 10:22:44 05:13:40 Clinical Comments 14/8 cmH2O Imaging Radiology Impression Chest X-Ray 10/24/25 09:45 IMPRESSION: Subsegmental atelectasis or airspace disease left lung base with scant pleural fluid. Mild dysmorphic changes proximal right humerus represent changes from prior fracture. See x-ray September 12, 2025 Reading Location: [id number] Brain CT 10/24/25 10:19 IMPRESSION: Mild degree of cerebral atrophy. Sinusitis as described. Reading Location: [facility] Chest CTA 10/24/25 10:19 IMPRESSION: No evidence of PE through the level of proximal lobar pulmonary artery. No acute pulmonary abnormality. Reading Location: [facility] Charges/Coding Visit Charges Inpatient E&M: 99131 Init Hosp L2
[2025-10-25] MEDS: 0.9% Saline Lock 10 ML Syringe IV (16:59)
--- NOTE | 2025-10-25 18:57 | PCM.PN.HOSP ---
Reason for Visit Chief Complaint: Altered mental status Subjective Subjective Patient was seen and examined today, I talked with pulmonary medicine and have them see the patient in consultation, they recommended the addition of IV corticosteroids. Patient is now on nasal cannula oxygen, she asked today when she could be discharged, I told her that we would have to take it day by day and that I would not feel comfortable discharging her on high flow oxygen. Objective Data Objective Data Vital Signs: Vital Signs Temp Pulse Resp BP Pulse Ox O2 Del Method O2 Flow Rate 98.6 F 111 H 20 H 132/72 H 94 Nasal Cannula 3 10/25/25 16:52 10/25/25 16:52 10/25/25 16:52 10/25/25 16:52 10/25/25 16:52 10/25/25 16:52 10/25/25 16:52 FiO2 40 10/25/25 09:45 Oxygen Flow Rate (L/min) 3 Oxygen Delivery Method Nasal Cannula Weight: 83.8 kg Body Mass Index (BMI) 33.7 Intake & Output: Intake and Output for Last 24 Hours 10/23/25 10/24/25 10/25/25 23:59 23:59 23:59 Intake Total 1771.5 / 1771.5 2578.75 / 2578.75 Output Total 100 / 100 Balance 1771.5 / 1771.5 2478.75 / 2478.75 Lab / Micro Data 10/24/25 08:20 10/24/25 08:00 Micro: Microbiology 10/24/25 09:24 Urine, Clean Catch Urine Culture - Final Mixed Gram Positive Organisms 10/24/25 09:00 Mucosa - Nose SARS-CoV-2, Influenza & RSV (PCR) - Final RSV ABG Data ABG results: ABG 10/25/25 05:11 Specimen Type ART Sample Site L Radial pH 7.27 L Bicarbonate Actual 33.8 H Total CO2 36 Base Excess 7 H O2 Saturation 93 L O2 % 40.0 ABG pCO2 73.2 H* ABG pO2 78 Rubio Test Positive Respiration Rate 12 O2 Delivery Device BiPAP Vent Mode Not entered Crit Call To/Read Back Yes Blood Gas Notified Whom Dr. Burk Blood Gas Notified Time 05:13:40 Clinical Comments 14/8 cmH2O Physical Exam Narrative alert, oriented x3 and no apparent distress General Appearance: cooperative, well kempt and well developed Orientation / Consciousness: awake, oriented to person, oriented to place and oriented to time HEENT normocephalic, head/scalp atraumatic and moist oral mucous membranes Eyes PERRL, EOMs intact bilaterally and conjunctivae normal Neck supple, no JVD, thyroid normal and no carotid bruits General: trachea midline Resp normal respiratory effort, no retractions and no use of accessory muscles Resp Narrative: Breath sounds are diminished bilaterally Auscultation: Negative for rales, rhonchi or wheezes Cardio regular rate, regular rhythm, S1 normal heart sound, S2 normal heart sound, no murmurs, no rub and no gallops GI normal to inspection, nondistended, normoactive bowel sounds, soft to palpation, non-tender and non-distended Extremity no clubbing, cyanosis or edema Skin no rashes or lesions noted General Skin Exam: no breakdown Neuro oriented x3, CN's II-XII intact bilaterally, moves all extremities, no focal motor deficits and no sensory deficits noted Sensorium / Orientation: awake and alert Speech: speech normal Psych affect normal Assessment & Plan Assessment/Plan (1) Hypoxemia: PLAN: Plan 1. Acute on chronic combined respiratory failure secondary to COPD exacerbation from RSV tracheobronchitis-patient will be admitted to PCU and receive aerosol treatments, Pulmicort aerosols will also be given, BiPAP will be monitored #2 RSV tracheobronchitis-again patient will receive aerosol treatments and Pulmicort aerosols #3 Central hypertension-patient is on amlodipine #4 MASLD-I will hold the patient's home medication for this, I do not believe she needs it while she is in the hospital. #5 hyperlipidemia-patient is on a statin Total clinical time spent by myself addressing the patient's medical issues, reviewing all her data, and collaborating with patient's care team: 35 minutes Charges/Coding Visit Charges Inpatient E&M: 57917 Subs Hosp L2
[2025-10-26] VITALS (13 sets, daily range): BP systolic 130–154; BP diastolic 68–94; PULSE 72–101; RESP 14–22; TEMP 36.7–37.1; O2SAT 89–97
[2025-10-26] MEDS: 0.9% Saline Lock 10 ML Syringe IV ×5 (00:02→23:12)
[2025-10-26] MEDS: Budesonide Respules 0.5 MG/2 ML AMPUL.NEB. INHALATION ×2 (07:04→21:07)
[2025-10-26] MEDS: Heparin Injection (Vial) 5,000 UNIT/ML VIAL 5000 UNIT SC ×2 (08:53→20:52)
--- NOTE | 2025-10-26 19:00 | PCM.PN.HOSP ---
Reason for Visit Chief Complaint: Altered mental status Subjective Subjective Patient was seen and examined today, she is currently on 3 L of oxygen, she does not complain of shortness of breath. Objective Data Objective Data Vital Signs: Vital Signs Temp Pulse Resp BP Pulse Ox O2 Del Method O2 Flow Rate 98.0 F 98 18 130/94 H 93 Nasal Cannula 3 10/26/25 14:53 10/26/25 14:53 10/26/25 14:53 10/26/25 14:53 10/26/25 14:53 10/26/25 17:15 10/26/25 17:15 FiO2 40 10/26/25 04:05 Oxygen Flow Rate (L/min) 3 Oxygen Delivery Method Nasal Cannula Weight: 83.8 kg Body Mass Index (BMI) 33.7 Intake & Output: Intake and Output for Last 24 Hours 10/24/25 10/25/25 10/26/25 23:59 23:59 23:59 Intake Total 1771.5 / 1771.5 2578.75 / 2778.75 200 / 200 Output Total 100 / 175 200 / 200 Balance 1771.5 / 1771.5 2478.75 / 2603.75 0 / 0 Lab / Micro Data 10/24/25 08:20 10/24/25 08:00 Micro: Microbiology 10/24/25 09:06 Blood Culture (Wb) - Anticubital Left Blood Culture - Preliminary No growth in 48 hours. 10/24/25 09:00 Blood Culture (Wb) - Anticubital Right Blood Culture - Preliminary No growth in 48 hours. 10/24/25 09:24 Urine, Clean Catch Urine Culture - Final Mixed Gram Positive Organisms 10/24/25 09:00 Mucosa - Nose SARS-CoV-2, Influenza & RSV (PCR) - Final RSV Physical Exam Const alert, oriented x3 and no apparent distress General Appearance: cooperative, well kempt and well developed Orientation / Consciousness: awake, oriented to person, oriented to place and oriented to time HEENT normocephalic, head/scalp atraumatic and moist oral mucous membranes Eyes PERRL, EOMs intact bilaterally and conjunctivae normal Neck supple, no JVD, thyroid normal and no carotid bruits General: trachea midline Resp normal respiratory effort, no retractions and no use of accessory muscles Resp Narrative: Breath sounds are diminished bilaterally Auscultation: Negative for rales, rhonchi or wheezes Cardio regular rate, regular rhythm, S1 normal heart sound, S2 normal heart sound, no murmurs, no rub and no gallops GI normal to inspection, nondistended, normoactive bowel sounds, soft to palpation, non-tender and non-distended Extremity no clubbing, cyanosis or edema Skin no rashes or lesions noted General Skin Exam: no breakdown Neuro oriented x3, CN's II-XII intact bilaterally, moves all extremities, no focal motor deficits and no sensory deficits noted Sensorium / Orientation: awake and alert Speech: speech normal Psych affect normal Assessment & Plan Assessment/Plan (1) RSV bronchitis: PLAN: Plan 1. Acute hypoxic respiratory failure secondary to underlying chronic obstructive pulmonary disease with exacerbation from RSV infection-continue aerosol treatments and IV corticosteroids #2 RSV tracheobronchitis-again patient will remain on aerosol treatments and IV corticosteroids #3 essential hypertension-patient is on amlodipine #4 MASLD-patient is currently off her home medication, she does not need it while she is hospitalized #5 hyperlipidemia-patient is on a statin Total clinical time spent by myself addressing the patient's medical issues, reviewing all her data, and collaborating with patient's care team: 35 minutes Charges/Coding Visit Charges Inpatient E&M: 51127 Subs Hosp L2
[2025-10-27] VITALS (10 sets, daily range): BP systolic 143–146; BP diastolic 75–92; PULSE 79–95; RESP 14–20; TEMP 36.4–36.6; O2SAT 86–95
[2025-10-27] MEDS: 0.9% Saline Lock 10 ML Syringe IV ×2 (05:31→11:27)
[2025-10-27] MEDS: Budesonide Respules 0.5 MG/2 ML AMPUL.NEB. INHALATION (06:54)
[2025-10-27] MEDS: Heparin Injection (Vial) 5,000 UNIT/ML VIAL 5000 UNIT SC (09:10)
--- NOTE | 2025-10-27 14:44 | CASEMGMT ---
Patient to discharge home. Patient requires increase in home oxygen, script received and sent to [facility] via [facility]. DALIA NEVAREZ in to discuss needs at discharge. DALIA NEVAREZ updated patient regarding increase in home oxygen, patient states she does not have portable tank at home. DALIA NEVAREZ called [employer] to provide one from stock. Patient states she would like to complete advance directives, SW updated. Patient denies further needs or concerns at discharge. DALIA NEVAREZ updated discharge plan.
--- NOTE | 2025-10-27 14:54 | PCM.DC ---
Discharge Instructions DC O2, CPAP, BIPAP needs Home O2 Discharge instructions: Yes Type of respiratory needs?: Oxygen Oxygen frequency: Continuous Continuous oxygen liters per minute: 3 L and With Ambulation Oxygen liters per minute during Ambulation: 4 L Dressing / Incision Discharge Activity: Return to Normal Activity Weight Bearing Status: Full weight bearing Follow Up Care Test Results: Test results from this visit will be discussed in further detail at your follow-up appointment, if applicable. Discharge Plan Admission Admit Date/Time: 10/24/25 12:26 Primary Reason for Your Visit: respiratory failure Attending Provider: Sorin Kitchen Primary Care Provider: Vincent Ashley FRONT END DEVELOPER DESIGNER Instructions Additional Instructions / Restrictions: Start your prednisone dosage tomorrow morning Use your oxygen as directed Discharge Orders/Prescriptions Prescriptions: New prednisone 20 mg tablet 40 mg PO DAILY Qty: 15 0RF Rx Instructions: 1 twice a day for 5 days, then 1 daily for 5 days, then discontinue Continued calcium citrate 250 mg calcium tablet 250 mg PO QDAY amlodipine 5 mg tablet 5 mg PO 1600 rosuvastatin 10 mg tablet 10 mg PO DAILY albuterol sulfate 90 mcg/actuation HFA aerosol inhaler 2 puff INHALATION Q6H PRN (Reason: shortness of breath or wheezing) OXYGEN - Supplemental ([facility] INFORMATIONAL USE ONLY) 2 l continuous inhalation QHS Rx Instructions: USES 2L NC AT HS cholecalciferol (vitamin D3) 1,250 mcg (50,000 unit) capsule 1,250 mcg PO QMONTH oxymetazoline [12 Hour Nasal Relief [place]] 0.05 % spray,non-aerosol 2 spray intranasal BID PRN (Reason: nasal congestion) clopidogrel [Plavix] 75 mg tablet 75 mg PO DAILY Qty: 90 3RF Trelegy Ellipta 100-62.5-25 mcg blister with device 1 inh inhalation Q24H Qty: 60 5RF Rezdiffra 60 mg tablet 60 mg PO QDAY Qty: 30 3RF pantoprazole 40 mg tablet,delayed release (DR/EC) 40 mg PO BID Qty: 90 3RF Referrals / Follow Up: Vincent Ashley NP, FRONT END DEVELOPER DESIGNER-C [Primary Care Provider, Family Practice] - See Referral Note Referral Note: In 2 weeks Disposition Disposition (needs filled in before D/C Order can be placed): Home, Self Care
--- NOTE | 2025-10-27 14:58 | PCM.HOSP.N ---
Hospitalist Note Oxygen testing reviewed, patient is ambulatory in the home and community and requires home oxygen with portability
--- NOTE | 2025-10-27 15:03 | CASEMGMT ---
Social Work- SW met with pt and pt sister to complete advanced directives. Pt named sister as primary HCPOA and [id number] as alternate. Directives copied for chart and HCPOA; originals provided to pt. Pt reports no other needs at this time. SHANNON Real
--- NOTE | 2025-10-27 15:49 | PHA.DC.COU.R ---
[facility] has performed discharge medication counseling for this patient. The patient was counseled on the following discharge medications and changes in medications for homegoing review. - Prednisone 20 mg tablet (taper) The Reason for Use, instructions for use, and potential side effects were reviewed for all new medications. The patient's questions regarding all of their medications were answered. The patient was able to verbally demonstrate an understanding of their discharge medications. Medications at Discharge Home Medications albuterol sulfate 90 mcg/actuation aerosol inhaler 2 puff inhalation Q6H PRN shortness of breath or wheezing 01/08/24 amlodipine 5 mg tablet 5 mg PO 1600 blood pressure 01/08/24 rosuvastatin 10 mg tablet 10 mg PO DAILY cholesterol 01/08/24 cholecalciferol (vitamin D3) 1,250 mcg (50,000 unit) capsule 1,250 mcg PO QMONTH vitamin 05/03/24 oxymetazoline 0.05 % nasal spray (12 Hour Nasal Relief [place]) 2 spray intranasal BID PRN nasal congestion 05/18/24 clopidogrel 75 mg tablet (Plavix) 75 mg PO DAILY #90 tabs 02/15/25 fluticasone fur. 100 mcg-umeclid 62.5 mcg-vilant 25 mcg inhalat.powder (Trelegy Ellipta) 1 inh inhalation Q24H #60 ea 04/04/25 resmetirom 60 mg tablet (Rezdiffra) 60 mg PO QDAY #30 tabs 08/09/25 calcium citrate 250 mg PO QDAY 08/10/25 pantoprazole 40 mg tablet,delayed release 40 mg PO BID #90 tabs 09/12/25 OXYGEN - Supplemental ([facility] INFORMATIONAL USE ONLY) 2 l continuous inhalation QHS 10/19/25 prednisone 20 mg tablet 40 mg (2 x 20 mg) PO DAILY #15 tabs 10/27/25
--- NOTE | 2025-11-01 17:22 | DS.PCM_ITS ---
Providers Date of Admission: 10/24/25 Date of Discharge: 10/27/25 Primary Care Physician: Vincent Ashley, RELAY ASSEMBLER-C Consultations 10/25/25 07:55 Consult: Sales Performance Analyst / Pulmonary Medicine Routine Consulting Provider: Intensivists/Pulmonary Med Reason for Consult: resp failure EMERGENT Consult: No MD Notified: Yes Date Notified: 10/25/25 Time Notified: 07:55 Method of Notification: Verbal Reason For Visit: RESPIRATORY FAILURE Diagnosis Discharge Diagnosis (1) Hypoxemia: Status: Inactive Code(s): R09.02 - Hypoxemia Plan 1. Acute on chronic combined respiratory failure secondary to COPD exacerbation from RSV tracheobronchitis-patient will be admitted to PCU and receive aerosol treatments, Pulmicort aerosols will also be given, BiPAP will be monitored #2 RSV tracheobronchitis-again patient will receive aerosol treatments and Pulmicort aerosols #3 Central hypertension-patient is on amlodipine #4 MASLD-I will hold the patient's home medication for this, I do not believe she needs it while she is in the hospital. #5 hyperlipidemia-patient is on a statin Total clinical time spent by myself addressing the patient's medical issues, reviewing all her data, and collaborating with patient's care team: 35 minutes Medications at Discharge Home Medications albuterol sulfate 90 mcg/actuation aerosol inhaler 2 puff inhalation Q6H PRN shortness of breath or wheezing 01/08/24 amlodipine 5 mg tablet 5 mg PO 1600 blood pressure 01/08/24 rosuvastatin 10 mg tablet 10 mg PO DAILY cholesterol 01/08/24 cholecalciferol (vitamin D3) 1,250 mcg (50,000 unit) capsule 1,250 mcg PO QMONTH vitamin 05/03/24 oxymetazoline 0.05 % nasal spray (12 Hour Nasal Relief [place]) 2 spray intranasal BID PRN nasal congestion 05/18/24 clopidogrel 75 mg tablet (Plavix) 75 mg PO DAILY #90 tabs 02/15/25 fluticasone fur. 100 mcg-umeclid 62.5 mcg-vilant 25 mcg inhalat.powder (Trelegy Ellipta) 1 inh inhalation Q24H #60 ea 04/04/25 resmetirom 60 mg tablet (Rezdiffra) 60 mg PO QDAY #30 tabs 08/09/25 calcium citrate 250 mg PO QDAY 08/10/25 pantoprazole 40 mg tablet,delayed release 40 mg PO BID #90 tabs 09/12/25 OXYGEN - Supplemental ([facility] INFORMATIONAL USE ONLY) 2 l continuous inhalation QHS 10/19/25 prednisone 20 mg tablet 40 mg (2 x 20 mg) PO DAILY #15 tabs 10/27/25 Hospital Course Operations None Procedures None Summary of Care Provided Minutes Spent on Discharge: 31 Hospital Course: This 70-year-old white female was seen in the emergency room at [facility] with confusion and hypoxemia after being checked on by her family. Patient wears oxygen at night only at 2 L. Workup in the emergency room indicated the patient required BiPAP to ventilate, she was admitted to PCU and monitored closely. Patient's SARS influenza and RSV PCR was positive for RSV. Patient was treated with aerosol treatments and IV corticosteroids, she was seen in consultation by pulmonary medicine. Patient improved during her hospitalization, she did require home oxygen at the time of discharge. On 10/27/2025, patient was seen and examined: On examination she appeared in good health and spirits, she does not appear to be in any distress. Vital signs as documented. Skin warm and dry and without overt rashes. Neck without JVD, thyroid appears normal, trachea is midline, neck is supple. Lungs clear, normal air movement was noted. Heart exam notable for regular rhythm, normal sounds and absence of murmurs, rubs or gallops. Abdomen unremarkable and without evidence of organomegaly, masses, or abdominal aortic enlargement, bowel sounds are present in all 4 quadrants, no abdominal tenderness was noted. Extremities nonedematous, no cyanosis was noted, no clubbing was noted. Neuro: Cranial nerves II through XII are grossly intact, no focal motor deficits were noted, sensation to light touch and pinprick is intact, motor exam 5/5 throughout. Psych: Patient is alert and oriented x3, she does not appear anxious or depressed, she does not appear agitated. Patient appears stable for discharge home on 10/27/2025 Weight / BMI Weight Weight: 83.8 kg Body Mass Index (BMI) 33.7 ABG / Lab / Microbiology Data 10/24/25 08:20 10/24/25 08:00 Microbiology: Microbiology 10/24/25 09:06 Blood Culture (Wb) - Anticubital Left Blood Culture - Final No growth in 5 days. 10/24/25 09:00 Blood Culture (Wb) - Anticubital Right Blood Culture - Final No growth in 5 days. 10/24/25 09:24 Urine, Clean Catch Urine Culture - Final Mixed Gram Positive Organisms 10/24/25 09:00 Mucosa - Nose SARS-CoV-2, Influenza & RSV (PCR) - Final RSV D/C Instructions Weight Bearing Status: Full weight bearing DC O2, CPAP, BIPAP Needs Home O2 Discharge instructions: Yes Type of respiratory needs?: Oxygen Oxygen frequency: Continuous Continuous oxygen liters per minute: 3 L and With Ambulation Oxygen liters per minute during Ambulation: 4 L DC home with Oxygen: Yes Home O2 MD Review: I have reviewed the oxygen testing, and the patient qualifies for home oxygen equipment and portability. The patient is mobile in the home and the community. Meaningful Use Info Meaningful Use Meaningful Use Diagnoses (Choose all that apply): None applicable Discharge Plan Admission Admit Date/Time: 10/24/25 12:26 Primary Reason for Your Visit: respiratory failure Attending Provider: Sorin Kitchen Primary Care Provider: Vincent Ashley RELAY ASSEMBLER Instructions Additional Instructions / Restrictions: Start your prednisone dosage tomorrow morning Use your oxygen as directed Discharge Orders/Prescriptions Prescriptions: New prednisone 20 mg tablet 40 mg PO DAILY Qty: 15 0RF Rx Instructions: 1 twice a day for 5 days, then 1 daily for 5 days, then discontinue Continued calcium citrate 250 mg calcium tablet 250 mg PO QDAY amlodipine 5 mg tablet 5 mg PO 1600 rosuvastatin 10 mg tablet 10 mg PO DAILY albuterol sulfate 90 mcg/actuation HFA aerosol inhaler 2 puff INHALATION Q6H PRN (Reason: shortness of breath or wheezing) OXYGEN - Supplemental ([facility] INFORMATIONAL USE ONLY) 2 l continuous inhalation QHS Rx Instructions: USES 2L NC AT HS cholecalciferol (vitamin D3) 1,250 mcg (50,000 unit) capsule 1,250 mcg PO QMONTH oxymetazoline [12 Hour Nasal Relief [place]] 0.05 % spray,non-aerosol 2 spray intranasal BID PRN (Reason: nasal congestion) clopidogrel [Plavix] 75 mg tablet 75 mg PO DAILY Qty: 90 3RF Trelegy Ellipta 100-62.5-25 mcg blister with device 1 inh inhalation Q24H Qty: 60 5RF Rezdiffra 60 mg tablet 60 mg PO QDAY Qty: 30 3RF pantoprazole 40 mg tablet,delayed release (DR/EC) 40 mg PO BID Qty: 90 3RF Referrals / Follow Up: Vincent Ashley RELAY ASSEMBLER, RELAY ASSEMBLER-C [Primary Care Provider, Family Practice] - See Referral Note Referral Note: In 2 weeks....PATIENT TO CALL OFFICE TO SET UP APPOINTMENT PLEASE. Disposition Disposition (needs filled in before D/C Order can be placed): Home, Self Care Charges/Coding Visit Charges Inpatient E&M: 22387 Disch Hosp >30min
== END 2025-10-27 16:28 | disposition home or self-care (01) | DRG 189 ==
LOC: ED 10:30 → PCU 12:47
PROVIDERS: Admitting Provider Internal Medicine; Emergency Provider Emergency Medicine; PCP Nurse Practitioner Family; Visit Provider Internal Medicine
DX: J96.21 Acute and chronic respiratory failure with hypoxia (principal); J44.0 Chronic obstructive pulmonary disease with (acute) lower respiratory infection; I85.00 Esophageal varices without bleeding; J44.1 Chronic obstructive pulmonary disease with (acute) exacerbation; D50.9 Iron deficiency anemia, unspecified; F17.210 Nicotine dependence, cigarettes, uncomplicated; D13.2 Benign neoplasm of duodenum; G47.36 Sleep related hypoventilation in conditions classified elsewhere; Z99.81 Dependence on supplemental oxygen; I10 Essential (primary) hypertension; K25.9 Gastric ulcer, unspecified as acute or chronic, without hemorrhage or perforation; J96.22 Acute and chronic respiratory failure with hypercapnia; E78.5 Hyperlipidemia, unspecified; K76.0 Fatty (change of) liver, not elsewhere classified; J20.5 Acute bronchitis due to respiratory syncytial virus; K22.4 Dyskinesia of esophagus; K74.00 Hepatic fibrosis, unspecified; K21.9 Gastro-esophageal reflux disease without esophagitis; Z79.02 Long term (current) use of antithrombotics/antiplatelets; Z79.51 Long term (current) use of inhaled steroids; Z79.899 Other long term (current) drug therapy
CPT/HCPCS: 36600; 70450; 71045; 71275; 80053; 81001; 82803; 83605; 84484; 85025; 85610; 85730; 87040; 87086; 87088; 87631; 88305; 93005; 94002; 94003; 94640; 94762; 99252; 99285; Q9967; A4216; C1769; G0463; J2405